=== PATIENT | female | born 1975 | race Caucasian/White ===

== ENCOUNTER 2020-09-21 09:34 | Outpatient (REF) | payer OTHER, SELFPAY ==
[2020-09-21 12:51] LABS: Syphilis Screen Nonreactive (Nonreactive)
[2020-09-21 13:21] LABS: CT PCR NOT DETECTED (Not Detect.); NG PCR NOT DETECTED (Not Detect.)
[2020-09-22 04:18] LABS: HIV AB/AG Nonreactive (Nonreactive); HIV Num 1 0.09 S/CO (0.00-0.99)
[2020-09-22 04:23] LABS: ~HepC Num1 0.11 S/CO (0.00-0.79); ~Hepatitis C Antibody Nonreactive (Nonreactive)
[2020-09-22 08:46] LABS: BV Int Neg Control Negative (Negative); BV Int Pos Control Positive (Positive)
== END 2020-09-21 09:35 | disposition home or self-care (01) ==
LOC: HO.LAB 09:34
PROVIDERS: PCP Internal Medicine; Referring Provider Internal Medicine; Visit Provider Advanced Practice Midwife
DX: Z30.431 Encounter for routine checking of intrauterine contraceptive device (principal); B37.3 Candidiasis of vulva and vagina; K50.90 Crohn's disease, unspecified, without complications; Z20.2 Contact with and (suspected) exposure to infections with a predominantly sexual mode of transmission; Z79.52 Long term (current) use of systemic steroids; Z79.891 Long term (current) use of opiate analgesic; Z79.899 Other long term (current) drug therapy
CPT/HCPCS: 86780; 86803; 87389; 87480; 87491; 87510; 87591; 87660; 99212

== ENCOUNTER 2020-12-09 12:50 | Outpatient (REF) | payer OTHER, SELFPAY ==
[2020-12-09 15:45] LABS: MANUAL DIFF FLAG NO
[2020-12-09 15:51] LABS: Basophils Absolute Auto 0.1 X10*3/uL (0.0-0.2); Basophils Percent Auto 0.8 % (0-2); Eosinophils Absolute Auto 0.1 X10*3/uL (0.0-0.4); Eosinophils Percent Auto 1.1 % (0-4); Hemoglobin 14.8 g/dl (12.0-16.0); Imm Gran Abs Auto 0.03 X10*3/uL (0.00-0.03); Imm Gran Pct Auto 0.4 % (0.0-0.4); Lymphocytes Absolute Auto 1.5 X10*3/uL (1.2-4.9); Lymphocytes Percent Auto 20.8 % (20-40); Mean Corpuscular HGB Conc 32.9 g/dl (31.0-35.0); Mean Corpuscular Hemoglobin 30.4 pg (27.0-33.0); Mean Corpuscular Volume 92.4 fL (80-98); Mean Platelet Volume 10.6 fL (9.4-12.3); Monocytes Absolute Auto 0.6 X10*3/uL (0.1-1.2); Monocytes Percent Auto 8.5 % (2-11); Neutrophils Absolute Auto 4.9 X10*3/uL (2.0-8.3); Neutrophils Percent Auto 68.4 % (45-73); Platelet Count 311 X10*3/uL (160-400); Red Blood Count 4.87 X10*6/uL (4.20-5.50); Red Cell Distribution Width 13.1 % (11.0-16.0); White Blood Count 7.1 X10*3/uL (4.8-10.8)
[2020-12-09 16:13] LABS: Alanine Aminotransferase 11 U/L (0-31); Albumin Level 4.1 g/dL (3.5-5.0); Alkaline Phosphatase 93 U/L (39-117); Aspartate Amino Transferase 15 U/L (5-31); Bilirubin Direct 0.2 mg/dL (0.0-0.5); Bilirubin Total 0.4 mg/dL (0.0-1.0); C Reactive Protein 0.48 mg/dL (< or = 0.50); Total Protein 7.4 g/dL (6.5-8.0)
[2020-12-09 16:47] LABS: Erythrocyte Sedimentation Rate 28 MM/HR (0-20)
[2020-12-10 11:45] LABS: BV Int Neg Control Negative (Negative); BV Int Pos Control Positive (Positive)
[2020-12-11 04:04] LABS: HBS Num1 0.86 mIU/mL (0-7.99); HBc Num1 0.05 S/CO (0.00-0.79); HBsAGNum1 0.19 S/CO (0.00-0.99); Hepatitis B Core Antibody Nonreactive (Nonreactive); Hepatitis B Surface Antigen Negative (Negative); ~Hepatitis B Surface Antibody NONREACTIVE (Nonreactive)
[2020-12-11 04:05] LABS: HIV AB/AG Nonreactive (Nonreactive); HIV Num 1 0.06 S/CO (0.00-0.99); ~HepC Num1 0.09 S/CO (0.00-0.79); ~Hepatitis C Antibody Nonreactive (Nonreactive)
[2020-12-12 01:02] LABS: TS Negative Control Passed; TS Panel A 0; TS Panel B 0; TS Positive Control Passed; TSpotTB Negative (SeeBelow)
[2020-12-12 04:15] LABS: Syphilis Screen Nonreactive (Nonreactive)
[2020-12-12 16:48] LABS: C. trachomatis RNA TMA NOT DETECTED (NOT DETECTED); N. gonorrhoeae RNA TMA NOT DETECTED (NOT DETECTED)
== END 2020-12-09 12:51 | disposition home or self-care (01) ==
LOC: HO.LAB 12:50
PROVIDERS: Absent Provider Internal Medicine; PCP Internal Medicine; Visit Provider Advanced Practice Midwife
DX: N92.1 Excessive and frequent menstruation with irregular cycle (principal); N89.8 Other specified noninflammatory disorders of vagina; K50.819 Crohn's disease of both small and large intestine with unspecified complications; Z20.2 Contact with and (suspected) exposure to infections with a predominantly sexual mode of transmission; Z91.040 Latex allergy status; Z88.5 Allergy status to narcotic agent; Z91.013 Allergy to seafood; Z30.431 Encounter for routine checking of intrauterine contraceptive device; Z32.02 Encounter for pregnancy test, result negative
CPT/HCPCS: 36415; 80076; 81025; 85025; 85652; 86140; 86481; 86704; 86706; 86780; 86803; 87340; 87389; 87480; 87491; 87510; 87591; 87660; 99212

== ENCOUNTER 2020-12-14 14:29 | Outpatient (REF) | payer OTHER, SELFPAY ==
--- NOTE | 2020-12-14 14:33 | US_ITS ---
EXAMINATION: ULTRASOUND PELVIS COMPLETE. CLINICAL INFORMATION: Excessive and frequent menstruation. COMPARISON: Transabdominal and transvaginal ultrasound pelvis is performed. TECHNIQUE: FINDINGS: This is anteverted and anteflexed measuring 7.5 cm in length, 3.9 cm in AP and 5.4 cm in transverse dimension. The uterus appears homogeneous in echotexture. There is an IUD within the endometrial canal and correct position. The tip is 0.6 cm away from fundal endometrium. There are small anechoic nabothian cysts seen in the cervix. The right ovary measures 3.0 x 1.4 x 2.2 cm volume 4.8 mL. There is a small echogenic focus within. Previously right ovary measured 2.1 x 2.2 x 2.0 cm. Left ovary measures 2.3 x 1.4 x 1.2 cm and volume 2.06 mL. It appears unremarkable. Previously left ovary measured 2.0 x 1.9 x 1.6 cm. US/US pelvic complete IMPRESSION: IUD well located in endometrial canal incorrect position. The uterus is unremarkable. There are small nabothian cysts in cervix. Unremarkable ovaries. Small nonspecific echogenic foci in the right ovary.
--- NOTE | 2020-12-14 14:33 | US_ITS ---
EXAMINATION: ULTRASOUND PELVIS COMPLETE. CLINICAL INFORMATION: Excessive and frequent menstruation. COMPARISON: Transabdominal and transvaginal ultrasound pelvis is performed. TECHNIQUE: FINDINGS: This is anteverted and anteflexed measuring 7.5 cm in length, 3.9 cm in AP and 5.4 cm in transverse dimension. The uterus appears homogeneous in echotexture. There is an IUD within the endometrial canal and correct position. The tip is 0.6 cm away from fundal endometrium. There are small anechoic nabothian cysts seen in the cervix. The right ovary measures 3.0 x 1.4 x 2.2 cm volume 4.8 mL. There is a small echogenic focus within. Previously right ovary measured 2.1 x 2.2 x 2.0 cm. Left ovary measures 2.3 x 1.4 x 1.2 cm and volume 2.06 mL. It appears unremarkable. Previously left ovary measured 2.0 x 1.9 x 1.6 cm. US/US transvaginal IMPRESSION: IUD well located in endometrial canal incorrect position. The uterus is unremarkable. There are small nabothian cysts in cervix. Unremarkable ovaries. Small nonspecific echogenic foci in the right ovary.
== END 2020-12-14 14:30 | disposition home or self-care (01) ==
LOC: HO.US 14:29
PROVIDERS: Visit Provider Advanced Practice Midwife
DX: N92.1 Excessive and frequent menstruation with irregular cycle (principal); Z97.5 Presence of (intrauterine) contraceptive device
CPT/HCPCS: 76830; 76856

== ENCOUNTER → 2020-12-21 11:17 | Outpatient (BNVA) | payer OTHER, SELFPAY | PROVIDERS: PCP Internal Medicine; Visit Provider Advanced Practice Midwife | DX: Z76.89 Persons encountering health services in other specified circumstances (principal) | CPT/HCPCS: 99212 ==

== ENCOUNTER 2021-02-15 10:45 | Outpatient (REF) | payer OTHER, SELFPAY ==
--- NOTE | ~2021-02-15 | US_ITS ---
EXAMINATION: US PELVIC COMPLETE CLINICAL INFORMATION: Excessive and frequent menstruation, irregular cycle. COMPARISON: None TECHNIQUE: Transabdominal and transvaginal ultrasound pelvis is performed. FINDINGS: The uterus is anteverted measuring 7.7 cm in length, 3.7 cm in AP and 4.6 cm wide. There is an IUD well located within the endometrial canal. No focal lesion seen. There are small nabothian cysts seen in the cervix. The right ovary measures 3.06 x 1.42 x 2.50 cm and volume 5.7 mL. There is a small echogenic focus seen likely nonspecific calcification. Previously right ovary measured 3.0 x 1.4 x 2.2 cm. The left ovary measures 2.1 x 1.3 x 1.95 cm and volume 3.06 mL. It appears unremarkable. Previously it measured 2.3 x 1.4 x 1.2 cm. US/US pelvic complete IMPRESSION: Unremarkable uterus. There is IUD well located within the endometrial canal. Small nabothian cysts in the cervix.
--- NOTE | ~2021-02-15 | US_ITS ---
EXAMINATION: US PELVIC COMPLETE CLINICAL INFORMATION: Excessive and frequent menstruation, irregular cycle. COMPARISON: None TECHNIQUE: Transabdominal and transvaginal ultrasound pelvis is performed. FINDINGS: The uterus is anteverted measuring 7.7 cm in length, 3.7 cm in AP and 4.6 cm wide. There is an IUD well located within the endometrial canal. No focal lesion seen. There are small nabothian cysts seen in the cervix. The right ovary measures 3.06 x 1.42 x 2.50 cm and volume 5.7 mL. There is a small echogenic focus seen likely nonspecific calcification. Previously right ovary measured 3.0 x 1.4 x 2.2 cm. The left ovary measures 2.1 x 1.3 x 1.95 cm and volume 3.06 mL. It appears unremarkable. Previously it measured 2.3 x 1.4 x 1.2 cm. US/US transvaginal IMPRESSION: Unremarkable uterus. There is IUD well located within the endometrial canal. Small nabothian cysts in the cervix.
== END 2021-02-15 10:46 | disposition home or self-care (01) ==
LOC: HO.US 10:45
PROVIDERS: PCP Internal Medicine; Visit Provider Advanced Practice Midwife
DX: N92.1 Excessive and frequent menstruation with irregular cycle (principal); Z97.5 Presence of (intrauterine) contraceptive device
CPT/HCPCS: 76830; 76856

== ENCOUNTER → 2021-03-01 10:36 | Outpatient (BNVA) | payer OTHER, SELFPAY | PROVIDERS: PCP Internal Medicine; Visit Provider Advanced Practice Midwife ==

== ENCOUNTER 2021-04-25 12:34 | Inpatient (IN) | payer OTHER, SELFPAY ==
--- NOTE | ~2021-04-25 | CT_ITS ---
EXAMINATION: CT ABDOMEN AND PELVIS WITH CONTRAST CLINICAL INFORMATION: Left-sided abdominal pain with nausea, vomiting and diarrhea x4 days COMPARISON: pelvic ultrasound 02/15/2021, CT abdomen pelvis 05/26/2019 TECHNIQUE: Multidetector volumetric images were obtained from the superior aspect of the liver through the pubic symphysis following administration 85 mL of Omnipaque 350 intravenous contrast. Sagittal and coronal reformatted images were obtained on the technologist's workstation. Oral contrast: No This CT examination was performed using dose optimization techniques as appropriate, variously including the following: *Automated exposure control *Adjustment of mA and/or kV according to patient size (this includes techniques or standardized protocols for targeted exams where dose is matched to indication/reason for exam; i.e. extremities or head) *Use of iterative reconstruction technique DLP: 598 mGy-cm FINDINGS: LUNG BASES: The visualized lung bases are unremarkable. LIVER, GALLBLADDER, AND BILIARY TREE: The liver is normal in size, shape, and attenuation. No focal hepatic lesion or biliary ductal dilatation is present. The gallbladder is unremarkable with no evidence of radiopaque gallstones, gallbladder wall thickening, or obvious pericholecystic inflammatory changes. PANCREAS: Unremarkable. SPLEEN: Unremarkable. ADRENAL GLANDS: Both adrenal glands demonstrate mild thickening which is better appreciated on coronal imaging (see rojas images), unchanged KIDNEYS AND URETERS: The kidneys are normal in size, shape, and attenuation. No hydronephrosis, hydroureter, or calculi seen. No perinephric stranding. BLADDER: Unremarkable. GASTROINTESTINAL TRACT: Again seen is marked wall thickening of the terminal ileum with dilatation. Appearances are slightly worse on the current study where maximal wall diameter is 9.5 mm where previously this was 8.4 mm. No evidence of microperforation or abscess. Diverticula are noted throughout the colon without evidence of diverticulitis. The small and large bowel are otherwise unremarkable. The appendix is unremarkable. A small hiatal hernia is present. The stomach otherwise appears normal ABDOMINAL WALL: No significant hernia is appreciated. A small periumbilical hernia seen containing only fat. LYMPH NODES: Normal. VASCULAR: Unremarkable. PELVIC VISCERA: Normal anteverted uterus with an IUD is present. An abnormal adnexal mass or free intraperitoneal fluid is not seen. OSSEOUS STRUCTURES: The SI joints appear normal. A izzy and screw is present in the left hip. There is a scoliosis convex to the left. No acute fracture or bony destructive lesions seen CT/CT abdomen pelvis w con IMPRESSION: Grossly abnormal thickened edematous terminal ileum. No evidence of perforation or abscess.
--- NOTE | ~2021-04-25 | XR_ITS ---
EXAMINATION: XR ABDOMEN KUB CLINICAL INDICATION: Abdominal pain. Constipation. COMPARISON: Previous CT of the abdomen and pelvis 04/25/2021 TECHNIQUE: Supine view of the abdomen and pelvis FINDINGS: There is stool throughout the colon suggestive of mild constipation. There are no dilated loops of bowel to suggest obstruction. There is no evidence of free air. There are calcifications in the left pelvis which when compared with previous CT scan probably represent calcified phleboliths. There is an IUD in the pelvis that appears unchanged. There are degenerative changes of the lower lumbar spine. There is orthopedic hardware and old healed fracture of the left proximal femur. There are degenerative changes of the spine. XR/XR KUB IMPRESSION: Stool in the colon suggestive of mild constipation. No evidence of obstruction.
[2021-04-25 13:39] VITALS: BP 137/71; PULSE 80; RESP 18; TEMP 36.9; O2SAT 99; BMI 29.4
--- NOTE | 2021-04-25 15:49 | ED_ITS ---
HPI - Nausea/Vomiting/Diarrhea General Chief complaint: Nausea/Vomiting/Diarrhea Stated complaint: NAUSEA DIARRHEA VOMITING WEAK Time Seen by Provider: 04/25/21 15:35 Source: patient Mode of arrival: ambulatory Limitations: no limitations History of Present Illness HPI Narrative: 45 y/o female with history of Crohn's disease diagnosed 20 years ago with poor control and persistent symptoms for >1 year on current regimen, history of migraines, anxiety/depression, insomnia who presents to the ER from home with 4 days of persistent nausea, vomiting and watery diarrhea. She states every time she drinks or eats anything she has watery brown stool. She has vomited 1-3 times each day. She developed worsening LLQ and lower abdominal pain in the last 1-[address] Alexis her GI doctor who advised her to come to the ER if her symptoms persisted or worsened. She denies blood in her stool or vomitus. SHe thinks she is due for scopes and was planning on talking to Dr. Alexis about this at her outpatient appointment tomorrow. They have been discussing starting Shikha however patient has been reluctant. She admits to her symptoms being out of control for >1 year. MD elicited complaint: nausea, vomiting, diarrhea and abdominal pain Pertinent past history: other (Crohn's) Onset (ago): day(s) (4) Description of vomiting: food contents and watery Description of diarrhea: watery Associated nausea: Yes Associated abdominal pain: Yes Location of pain: LLQ Radiation: RLQ Pain consistency: constant Severity: moderate Pain scale (0-10): 7 Quality: cramping and stabbing Exacerbating factors: eating Relieving factors: none Associated symptoms: loss of appetite, malaise, nausea/vomiting, weakness and anxiety Treatment prior to arrival: immodium and other (zofran at 10am) Related Data Home Medications Medication Instructions Recorded Confirmed levonorgestrel 20 mcg/24 hours (6 1 device INTRAUTERINE ONCE 10/04/20 04/25/21 yrs) 52 mg intrauterine device budesonide 3 mg 9 mg PO DAILY 12/05/20 04/25/21 capsule,delayed,extended release cholestyramine (with sugar) 4 gram 2 g PO BID 12/05/20 04/25/21 oral powder omeprazole 20 mg capsule,delayed 20 mg PO DAILY 12/05/20 04/25/21 release mesalamine [Pentasa] 1,000 mg PO TID 04/25/21 04/25/21 ondansetron HCl 4 mg PO Q8H PRN 04/25/21 04/25/21 sumatriptan succinate 0.5 tab PO DAILY MRX1 PRN 04/25/21 04/25/21 tramadol 50 mg PO TID PRN 04/25/21 04/25/21 Previous Rx's Medication Instructions Recorded eszopiclone 3 mg tablet 3 mg PO BEDTIME PRN 30 Days #30 tab 03/06/21 escitalopram oxalate 10 mg tablet 10 mg PO DAILY 30 Days #30 tab 03/29/21 lorazepam 1 mg tablet 1 mg PO TID PRN 30 Days #90 tab 03/29/21 Allergies Allergy/AdvReac Type Severity Reaction Status Date / Time meperidine [From Demerol] Allergy Severe SWELLING,RASH,THROAT Verified 03/13/21 00:00 CLOSES latex [LATEX] Allergy Mild RASH Verified 03/13/21 00:00 codeine [Codeine] AdvReac Intermediate NAUSEA/VOMITING, Verified 03/13/21 00:00 GI upset/vomiting Fish Containing Products AdvReac Unknown NAUSEA/VOMI Verified 03/13/21 00:00 [Fish Product Derivatives] TING trazodone AdvReac Intermediate worsening Uncoded 03/13/21 00:00 anxiety symptoms Review of Systems Review of Systems: Constitutional: No Fever, No Chills ENT/Mouth: No sore throat, No Rhinorrhea, No Swallowing Difficulty Eyes: No Eye Pain, No Swelling, No Redness Cardiovascular: No Chest Pain, No SOB, No Orthopnea, No Edema Respiratory: No Cough, No Sputum, No Wheezing, No dyspnea Gastrointestinal: + Nausea, + Vomiting, + Diarrhea, + abdominal Pain, No Hematochezia, No Melena Genitourinary: No Dysuria, No Urinary Frequency, No Hematuria Musculoskeletal: No joint pain, No Myalgias Skin: No Skin Lesions, No rash Neuro: + Weakness, No Numbness, + Dizziness, + Headache Psych: + Anxiety/Panic, + Depression Heme/Lymph: No Bruising, No Lymphadenopathy Endocrine: No Polyuria, No Polydipsia Gastrointestinal: Gastrointestinal: Reports nausea PMFSH Past Medical History Attestation statement: The following information was validated with the patient. 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 History of renal cell cancer (~2014) Insomnia Intractable nausea and vomiting Lumbar degenerative disc disease Migraine Osteoarthritis of hips, bilateral Overweight (BMI 25.0-29.9) Surgical History History of arthroplasty (~01/2012) History of cryosurgery (~04/20/15) History of intestinal surgery History of removal of calculus of renal pelvis through percutaneous nephrostomy (~10/2015) Family History Family History Father Crohn disease Migraine Mother HTN (hypertension) Vertigo Cervical cancer Maternal Grandmother HTN (hypertension) Hyperlipidemia Diabetes mellitus Paternal Grandfather Diabetes mellitus Social History Social History Household Members: Children Housing: House Do you presently have visiting nurse or other home services: No Alcohol intake: current Alcohol intake frequency: holidays/special occasions only Patient Tobacco Use Status: Current someday Tobacco user Tobacco use type: Cigarette Cigarette Packs Per Day: 0.01 Cigarettes Per Day: 0.2 Years Smoked: 1 Smoked in Last 30 Days: Yes Patient Interested in Nicotine Replacement: No Patient Given Instructions on How to Stop Smoking: No Use of substances other than those prescribed or required for medical reasons: No Currently Displaying Signs/Symptoms of Drug Intoxication Withdrawal: No Have you been hit, kicked, punched, or otherwise hurt by someone within the past year? If so, by whom?: No Do you feel safe in your current relationship?: Yes Is there a partner from a previous relationship who is making you feel unsafe now?: No Are you made to feel afraid or neglected: No Spiritual Healthcare Practices: none Shinto Healthcare Practices: none Cultural Healthcare Practices: none Advance Directives: No Advance Directives Information Provided: Yes Do you have thoughts of harming others: None Do you have a plan to hurt others: No Plan Recently lost weight without trying: Yes How much weight loss: 2-13 pounds Eating poorly because of decreased appetite: Yes Nutrition screen score: 4 Nutrition Risks: No Nutritional Risk Patient : No : No Poor oral hygiene: No Gender identity: female Physical Exam Vital Signs: Vital Signs: Last Vital Signs Temp 98.1 F 04/26/21 07:14 Pulse 70 04/26/21 07:14 Resp 16 04/26/21 07:14 BP 126/68 04/26/21 07:14 Pulse Ox 97 04/26/21 07:14 Body Mass Index 29.4 Appearance: Alert. Oriented X3. No acute distress. Eyes: Pupils equal, round and reactive to light. ENT: Pharynx normal. Neck: Normal inspection. Neck supple. CVS: Normal heart rate and rhythm. Pulses normal. Respiratory: No respiratory distress. Breath sounds normal. Abdomen: Soft with moderate LLQ tenderness and guarding, no rebound tenderness. No rigidity, hyperactive +BS x4 Skin: Skin warm and dry. Normal skin color. Normal skin turgor. No rashes. Extremities: No lower extremity edema. Neuro: Oriented X 3. No motor deficit. No sensory deficit. Course Course Course Narrative: 45 y/o female with history of Crohn's disease presenting with 4 days of N/V/D and abdominal pain. She is very uncomfortable with LLQ tenderness on exam. Will get stool studies, CT scan, lab workup and medicate with IVF, Zofran and Dilaudid. Will need to touch base with GI once imaging and labs resulted to establish a plan - anticipate admission. Reevaluation(s) Reevaluation #1: Signed out to Noris RUEDA who assumed care, followed up results and admitted patient. MDM - Nausea/Vomiting/Diarrhea Lab Data Result diagrams: 04/26/21 05:39 04/26/21 05:39 Labs: Lab Results 04/25/21 04/25/21 04/25/21 Range/Units 16:29 16:29 16:29 WBC 8.0 (4.8-10.8) X10*3/uL RBC 4.63 (4.20-5.50) X10*6/uL Hgb 14.4 (12.0-16.0) g/dl Hct 43.5 (37-47) % MCV 94.0 (80-98) fL MCH 31.1 (27.0-33.0) pg MCHC 33.1 (31.0-35.0) g/dl RDW 13.5 (11.0-16.0) % Plt Count 325 (160-400) X10*3/uL MPV 9.8 (9.4-12.3) fL Immature Gran % (Auto) 0.4 (0.0-0.4) % Neut % (Auto) 71.3 (45-73) % Lymph % (Auto) 17.9 L (20-40) % Gilliam % (Auto) 9.1 (2-11) % Eos % (Auto) 0.8 (0-4) % Baso % (Auto) 0.5 (0-2) % Lymph # (Auto) 1.4 (1.2-4.9) X10*3/uL Gilliam # (Auto) 0.7 (0.1-1.2) X10*3/uL Eos # (Auto) 0.1 (0.0-0.4) X10*3/uL Baso # (Auto) 0.0 (0.0-0.2) X10*3/uL Abs Immat Gran (auto) 0.03 (0.00-0.03) X10*3/uL Absolute Neuts (auto) 5.7 (2.0-8.3) X10*3/uL Absolute Nucleated RBC 0.000 (0.0-0.012) X10*3/uL Nucleated RBC % (auto) 0.0 (0.0-0.2) /100WBC Hold Blue Top SEE NOTE Sodium 143 (135-145) mmol/L Potassium 4.0 (3.3-5.1) mmol/L Chloride 106 (96-108) mmol/L Carbon Dioxide 29 (22-29) mmol/L Anion Gap 12 (12-20) BUN 8 L (9-16) mg/dL Creatinine 0.77 (0.5-1.4) mg/dL Estim Creat Clear Calc 86.3 Estimated GFR > 60 Random Glucose 93 (60-115) mg/dL Lactic Acid (0.5-2.0) mmol/L Calcium 9.9 (8.4-10.2) mg/dL Magnesium 1.7 (1.6-2.6) mg/dL Total Bilirubin 0.5 (0.0-1.0) mg/dL Direct Bilirubin < 0.2 (0.0-0.5) mg/dL AST 14 (5-31) U/L ALT 7 (0-31) U/L Alkaline Phosphatase 103 (39-117) U/L Total Protein 7.2 (6.5-8.0) g/dL Albumin 4.0 (3.5-5.0) g/dL Lipase 24 (8-78) U/L Urine Color Urine Appearance Urine pH (5.0-8.0) Ur Specific Dawson (1.005-1.025) Urine Protein (NEG-TRACE) MG/DL Urine Glucose (UA) (NEG) MG/DL Urine Ketones (NEG) MG/DL Urine Blood (NEG) Urine Nitrite (NEG) Ur Leukocyte Esterase (NEG) 04/25/21 04/25/21 Range/Units 17:56 19:39 WBC (4.8-10.8) X10*3/uL RBC (4.20-5.50) X10*6/uL Hgb (12.0-16.0) g/dl Hct (37-47) % MCV (80-98) fL MCH (27.0-33.0) pg MCHC (31.0-35.0) g/dl RDW (11.0-16.0) % Plt Count (160-400) X10*3/uL MPV (9.4-12.3) fL Immature Gran % (Auto) (0.0-0.4) % Neut % (Auto) (45-73) % Lymph % (Auto) (20-40) % Gilliam % (Auto) (2-11) % Eos % (Auto) (0-4) % Baso % (Auto) (0-2) % Lymph # (Auto) (1.2-4.9) X10*3/uL Gilliam # (Auto) (0.1-1.2) X10*3/uL Eos # (Auto) (0.0-0.4) X10*3/uL Baso # (Auto) (0.0-0.2) X10*3/uL Abs Immat Gran (auto) (0.00-0.03) X10*3/uL Absolute Neuts (auto) (2.0-8.3) X10*3/uL Absolute Nucleated RBC (0.0-0.012) X10*3/uL Nucleated RBC % (auto) (0.0-0.2) /100WBC Hold Blue Top Sodium (135-145) mmol/L Potassium (3.3-5.1) mmol/L Chloride (96-108) mmol/L Carbon Dioxide (22-29) mmol/L Anion Gap (12-20) BUN (9-16) mg/dL Creatinine (0.5-1.4) mg/dL Estim Creat Clear Calc Estimated GFR Random Glucose (60-115) mg/dL Lactic Acid 1.7 (0.5-2.0) mmol/L Calcium (8.4-10.2) mg/dL Magnesium (1.6-2.6) mg/dL Total Bilirubin (0.0-1.0) mg/dL Direct Bilirubin (0.0-0.5) mg/dL AST (5-31) U/L ALT (0-31) U/L Alkaline Phosphatase (39-117) U/L Total Protein (6.5-8.0) g/dL Albumin (3.5-5.0) g/dL Lipase (8-78) U/L Urine Color YELLOW Urine Appearance CLEAR Urine pH 5.5 (5.0-8.0) Ur Specific Dawson <= 1.005 (1.005-1.025) Urine Protein NEG (NEG-TRACE) MG/DL Urine Glucose (UA) NEG (NEG) MG/DL Urine Ketones NEG (NEG) MG/DL Urine Blood NEG (NEG) Urine Nitrite NEG (NEG) Ur Leukocyte Esterase NEG (NEG) Discharge Plan Discharge Clinical Impression: Ileitis, terminal Qualifiers: Digestive disease complication type: without complication Qualified Code(s): K50.00 - Crohn's disease of small intestine without complications Patient Disposition: Admitted As Inpatient Interventions: Admission Worksheet (ED) Last Done: 04/26/21 00:21 Discharge Date/Time: 04/26/21 00:22
[2021-04-25 16:23] VITALS: BP 140/85; PULSE 71; RESP 16; O2SAT 100
[2021-04-25 16:33] LABS: MANUAL DIFF FLAG NO
[2021-04-25] MEDS: HYDROmorphone HCl 1 MG/ML SYRINGE IVPUSH ×2 (16:35→20:30)
[2021-04-25] MEDS: ondansetron HCL 4 MG/2 ML VIAL IVPUSH (16:35)
[2021-04-25] MEDS: 0.9 % Sodium Chloride 1,000 ML 999 ML IVCONT (16:35)
[2021-04-25 16:37] LABS: Basophils Percent Auto 0.5 % (0-2); Eosinophils Absolute Auto 0.1 X10*3/uL (0.0-0.4); Eosinophils Percent Auto 0.8 % (0-4); Hematocrit 43.5 % (37-47); Hemoglobin 14.4 g/dl (12.0-16.0); Imm Gran Abs Auto 0.03 X10*3/uL (0.00-0.03); Imm Gran Pct Auto 0.4 % (0.0-0.4); Lymphocytes Absolute Auto 1.4 X10*3/uL (1.2-4.9); Lymphocytes Percent Auto 17.9 % (20-40); Mean Corpuscular HGB Conc 33.1 g/dl (31.0-35.0); Mean Corpuscular Hemoglobin 31.1 pg (27.0-33.0); Mean Platelet Volume 9.8 fL (9.4-12.3); Monocytes Absolute Auto 0.7 X10*3/uL (0.1-1.2); Monocytes Percent Auto 9.1 % (2-11); Neutrophils Absolute Auto 5.7 X10*3/uL (2.0-8.3); Neutrophils Percent Auto 71.3 % (45-73); Platelet Count 325 X10*3/uL (160-400); Red Blood Count 4.63 X10*6/uL (4.20-5.50); Red Cell Distribution Width 13.5 % (11.0-16.0)
[2021-04-25 17:06] LABS: Alanine Aminotransferase 7 U/L (0-31); Alkaline Phosphatase 103 U/L (39-117); Anion Gap 12 (12-20); Aspartate Amino Transferase 14 U/L (5-31); Bilirubin Direct < 0.2 mg/dL (0.0-0.5); Bilirubin Total 0.5 mg/dL (0.0-1.0); Blood Urea Nitrogen 8 mg/dL (9-16); Calcium 9.9 mg/dL (8.4-10.2); Carbon Dioxide 29 mmol/L (22-29); Chloride 106 mmol/L (96-108); Creatinine Clr Calc Pharmacy 86.3; Estimated Glomerular Filt Rate > 60; Glucose Random 93 mg/dL (60-115); Lipase 24 U/L (8-78); Magnesium 1.7 mg/dL (1.6-2.6); Sodium 143 mmol/L (135-145); Total Protein 7.2 g/dL (6.5-8.0)
[2021-04-25 18:26] LABS: Lactic Acid 1.7 mmol/L (0.5-2.0)
[2021-04-25] MEDS: iohexoL 350 MG/ML 100 ML INFUS..BTL IV (18:26)
[2021-04-25 19:45] LABS: Glucose Urine UA NEG (NEG); Leukocyte Esterase Urine NEG (NEG); Nitrite Urine NEG (NEG); PH 5.5 (5.0-8.0); Specific Gravity - Urine <= 1.005 (1.005-1.025); Urine Blood NEG (NEG); Urine Ketones NEG (NEG); Urine Protein NEG (NEG-TRACE)
[2021-04-25 19:47] LABS: Appearance Urine CLEAR; Color Urine YELLOW
[2021-04-25] MEDS: diphenhydrAMINE HCL 50 MG/ML VIAL 25 MG IVPUSH (19:54)
[2021-04-25] MEDS: Metoclopramide HCl 10 MG/2 ML VIAL IVPUSH (19:54)
[2021-04-25 20:31] VITALS: BP 122/69; PULSE 66; RESP 16; O2SAT 97
--- NOTE | 2021-04-25 21:29 | P.HPHOSP_ITS ---
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 Patient mentioned that she always has diarrhea. But for the past 3 4 days she has been having abdominal pain which is worse than her prior abdominal pains gradually increasing associated nausea vomiting.; spoke to her instrumentation designer who suggested to take the medications at home with not improving to go to the ER for further evaluation. Patient denies any fevers. Denies any cough. Denies any chest pain palpitations. Denies any urinary symptoms. Patient mentions that her abdominal pain is crampy in nature starts on the left side of the abdomen and radiates to the right side; no aggravating or kindra viating factors. Denies any blood in the stool. Denies being on antibiotics recently. Review of all other systems is negative except mentioned above ER course: Per ER team patient abdomen is diffusely tender no guarding no rigidity; CT scan showed terminal ileitis. Given Solu-Medrol, antibiotics. Admitted for further management. [facility] 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 History of renal cell cancer (~2014) Insomnia Intractable nausea and vomiting Lumbar degenerative disc disease Migraine Osteoarthritis of hips, bilateral Overweight (BMI 25.0-29.9) Family History Father Crohn disease Migraine Mother HTN (hypertension) Vertigo Cervical cancer Maternal Grandmother HTN (hypertension) Hyperlipidemia Diabetes mellitus Paternal Grandfather Diabetes mellitus Surgical History History of arthroplasty (~01/2012) History of cryosurgery (~04/20/15) History of intestinal surgery History of removal of calculus of renal pelvis through percutaneous nephrostomy (~10/2015) Social History Household Members: Children Housing: House Do you presently have visiting nurse or other home services: No Alcohol intake: current Alcohol intake frequency: holidays/special occasions only Patient Tobacco Use Status: Current someday Tobacco user Tobacco use type: Cigarette Cigarette Packs Per Day: 0.01 Cigarettes Per Day: 0.2 Years Smoked: 1 Smoked in Last 30 Days: Yes Patient Interested in Nicotine Replacement: No Patient Given Instructions on How to Stop Smoking: No Use of substances other than those prescribed or required for medical reasons: No Currently Displaying Signs/Symptoms of Drug Intoxication Withdrawal: No Have you been hit, kicked, punched, or otherwise hurt by someone within the past year? If so, by whom?: No Do you feel safe in your current relationship?: Yes Is there a partner from a previous relationship who is making you feel unsafe now?: No Are you made to feel afraid or neglected: No Spiritual Healthcare Practices: none Sikhism Healthcare Practices: none Cultural Healthcare Practices: none Advance Directives: No Advance Directives Information Provided: Yes Do you have thoughts of harming others: None Do you have a plan to hurt others: No Plan Recently lost weight without trying: Yes How much weight loss: 2-13 pounds Eating poorly because of decreased appetite: Yes Nutrition screen score: 4 Nutrition Risks: No Nutritional Risk Patient : No : No Poor oral hygiene: No service: No Current occupational status: unemployed Gender identity: female Meds Allergies Allergy/AdvReac Type Severity Reaction Status Date / Time meperidine [From Demerol] Allergy Severe SWELLING,RASH,THROAT Verified 03/13/21 00:00 CLOSES latex [LATEX] Allergy Mild RASH Verified 03/13/21 00:00 codeine [Codeine] AdvReac Intermediate NAUSEA/VOMITING, Verified 03/13/21 00:00 GI upset/vomiting Fish Containing Products AdvReac Unknown NAUSEA/VOMI Verified 03/13/21 00:00 [Fish Product Derivatives] TING trazodone AdvReac Intermediate worsening Uncoded 03/13/21 00:00 anxiety symptoms Active Medications: Current Medications Generic Name Dose Route Start Last Admin Trade Name Freq PRN Reason Stop Dose Admin Acetaminophen 650 mg 04/25/21 21:23 Acetaminophen 325 Mg Tablet PO Q6H PRN Pain, Mild (Pain Scale 1-3) Metronidazole 500 mg in 100 mls @ 100 mls/hr 04/25/21 20:51 Flagyl IV 04/25/21 21:50 ONCE ONE Levofloxacin 500 mg in 100 mls @ 100 mls/hr 04/25/21 21:00 Levaquin IV Q24H [facility] Ceftriaxone Sodium 1 gm/ 50 mls @ 100 mls/hr 04/25/21 21:30 Sodium Chloride IV Q24H BENJAMIN Metronidazole 500 mg in 100 mls @ 100 mls/hr 04/25/21 21:30 Flagyl IV Q8H [facility] Dextrose/Sodium Chloride 1,000 mls @ 100 mls/hr 04/25/21 21:30 D51/2ns IVCONT .Q10H [facility] Methylprednisolone Sodium Succinate 20 mg 04/25/21 21:30 Methylprednisolone Sod Succ 40 Mg/Ml Vial IVPUSH Q8H [facility] Pharmacy Consult 1 each 04/25/21 20:55 Consult Rx Perform Med Rec MISCELLANE ONCE PRN Consult order Sodium Chloride 3 ml 04/26/21 00:00 0.9 % Sodium Chloride Flush 3 Ml Syringe IVFLUSH QSHIFT [facility] Home Medications Medication Instructions Recorded Confirmed Last Taken Type levonorgestrel 20 mcg/24 hours (6 1 device INTRAUTERINE ONCE 10/04/20 04/25/21 Unknown History yrs) 52 mg intrauterine device cholestyramine (with sugar) 4 gram 2 g PO BID 12/05/20 04/25/21 Unknown History oral powder omeprazole 20 mg capsule,delayed 20 mg PO DAILY 12/05/20 04/25/21 Unknown History release Pentasa 1,000 mg PO TID 04/25/21 04/25/21 Unknown History ondansetron HCl 4 mg PO Q8H PRN 04/25/21 04/25/21 Unknown History sumatriptan succinate 0.5 tab PO DAILY MRX1 PRN 04/25/21 04/25/21 Unknown History Physical Exam Vital Signs and Narrative: Vital Signs: Last Vital Signs Temp 98.4 F 04/25/21 13:39 Pulse 66 04/25/21 20:31 Resp 16 04/25/21 20:31 BP 122/69 04/25/21 20:31 Pulse Ox 97 04/25/21 20:31 Body Mass Index 29.4 Gen: Appears be in no acute distress HEENT: NCAT, Moist mucosa. Pulmonary: Vesicular breath sounds, fair air entry CVS: Normal S1-S2 Abdomen: BS+, Soft, diffusely tender; no guarding or rigidity. Extremities: Warm well perfused Neuro: Alert and awake. Results Labs CBC and Chem 7: 04/29/21 05:55 04/29/21 05:55 Labs: Laboratory Results - last 24 hr 04/25/21 04/25/21 04/25/21 16:29 16:29 16:29 MCV 94.0 MCH 31.1 MCHC 33.1 RDW 13.5 Plt Count 325 MPV 9.8 Immature Gran % (Auto) 0.4 Neut % (Auto) 71.3 Lymph % (Auto) 17.9 L [place] % (Auto) 9.1 Eos % (Auto) 0.8 Baso % (Auto) 0.5 Lymph # (Auto) 1.4 [place] # (Auto) 0.7 Eos # (Auto) 0.1 Baso # (Auto) 0.0 Abs Immat Gran (auto) 0.03 Absolute Neuts (auto) 5.7 Absolute Nucleated RBC 0.000 Nucleated RBC % (auto) 0.0 Hold Blue Top SEE NOTE Anion Gap 12 Estim Creat Clear Calc 86.3 Estimated GFR > 60 Random Glucose 93 Lactic Acid Calcium 9.9 Magnesium 1.7 Total Bilirubin 0.5 Direct Bilirubin < 0.2 AST 14 ALT 7 Alkaline Phosphatase 103 Total Protein 7.2 Albumin 4.0 Lipase 24 Urine Color Urine Appearance Urine pH Ur Specific [place] Urine Protein Urine Glucose (UA) Urine Ketones Urine Blood Urine Nitrite Ur Leukocyte Esterase 04/25/21 04/25/21 17:56 19:39 MCV MCH MCHC RDW Plt Count MPV Immature Gran % (Auto) Neut % (Auto) Lymph % (Auto) [place] % (Auto) Eos % (Auto) Baso % (Auto) Lymph # (Auto) [place] # (Auto) Eos # (Auto) Baso # (Auto) Abs Immat Gran (auto) Absolute Neuts (auto) Absolute Nucleated RBC Nucleated RBC % (auto) Hold Blue Top Anion Gap Estim Creat Clear Calc Estimated GFR Random Glucose Lactic Acid 1.7 Calcium Magnesium Total Bilirubin Direct Bilirubin AST ALT Alkaline Phosphatase Total Protein Albumin Lipase Urine Color YELLOW Urine Appearance CLEAR Urine pH 5.5 Ur Specific [place] <= 1.005 Urine Protein NEG Urine Glucose (UA) NEG Urine Ketones NEG Urine Blood NEG Urine Nitrite NEG Ur Leukocyte Esterase NEG Imaging Radiologist's Impressions: Impressions Abdomen/Pelvis CT 04/25/21 15:49 IMPRESSION: Grossly abnormal thickened edematous terminal ileum. No evidence of perforation or abscess. Assessment and Plan (1) Ileitis, terminal: Qualifiers: Digestive disease complication type: without complication Qualified Code(s): K50.00 - Crohn's disease of small intestine without complications Status: Acute 45-year-old female with a past medical history of Crohn's disease, anxiety, depression, history of renal cell carcinoma, chronic back pain and migraines, osteoarthritis presented to the hospital with a chief complaint of abdominal pain/nausea/vomiting noted to have terminal ileitis. Admitted for further management. Crohn's flare/Terminal Ileitis: Will give the patient Solu-Medrol 20 mg IV t.i.d.. We will continue ceftriaxone and Flagyl. GI consult for further recommendations. NPO Gentle IV fluids Stool studies For all other chronic conditions, home medications will be continued DVT prophylaxis: SCD boots Code status: Full code
[2021-04-25] MEDS: methylPREDNISolone Sod Succ 40 MG/ML VIAL IVPUSH (21:50)
[2021-04-25] MEDS: metroNIDAZOLE/NS 500 MG/100 ML PIGGYBACK 100 MG IV (21:50)
--- NOTE | 2021-04-25 21:50 | HE.PHANOTE ---
Pharmacy has completed the medication reconciliation: pt states that she has not been taking elavil and propranolol due to increased n/v
[2021-04-25 21:51] VITALS: BP 119/65; PULSE 75; RESP 18; O2SAT 97
[2021-04-25 22:35] LABS: COVID-19 Test Negative (Negative)
[2021-04-25] MEDS: cefTRIAXone sodium 1 GM in 0.9 % Sodium Chloride 50 ML IV (23:06)
[2021-04-25] MEDS: Acetaminophen 325 MG TABLET 650 MG PO (23:15)
[2021-04-25] MEDS: traMADoL HCL 50 MG TABLET PO (23:15)
[2021-04-25] MEDS: Dextrose 5 % and 0.45 % NaCl 1,000 ML 100 ML IVCONT (23:19)
[2021-04-25] MEDS: levoFLOXacin/D5W 500 MG/100 ML PIGGYBACK 100 MG IV (23:29)
[2021-04-26] VITALS (7 sets, daily range): BP systolic 121–157; BP diastolic 63–91; PULSE 59–98; RESP 16–20; TEMP 36.3–37.1; O2SAT 95–97; BMI 29.4
[2021-04-26] MEDS: 0.9 % Sodium Chloride Flush 3 ML SYRINGE IVFLUSH ×3 (00:36→15:22)
[2021-04-26] MEDS: LORazepam 1 MG TABLET PO ×2 (00:42→22:55)
[2021-04-26] MEDS: HYDROmorphone HCl 0.5 MG/0.5 ML SYRINGE IVPUSH ×6 (00:42→22:55)
[2021-04-26] MEDS: methylPREDNISolone Sod Succ 40 MG/ML VIAL 20 MG IVPUSH (04:30)
[2021-04-26 06:43] LABS: Basophils Percent Auto 0.2 % (0-2); Hematocrit 41.1 % (37-47); Hemoglobin 13.4 g/dl (12.0-16.0); Imm Gran Abs Auto 0.04 X10*3/uL (0.00-0.03); Imm Gran Pct Auto 0.6 % (0.0-0.4); Lymphocytes Absolute Auto 0.5 X10*3/uL (1.2-4.9); Lymphocytes Percent Auto 7.1 % (20-40); MANUAL DIFF FLAG SCAN; Mean Corpuscular HGB Conc 32.6 g/dl (31.0-35.0); Mean Corpuscular Hemoglobin 30.4 pg (27.0-33.0); Mean Corpuscular Volume 93.2 fL (80-98); Mean Platelet Volume 10.4 fL (9.4-12.3); Monocytes Absolute Auto 0.1 X10*3/uL (0.1-1.2); Monocytes Percent Auto 1.2 % (2-11); Neutrophils Absolute Auto 5.9 X10*3/uL (2.0-8.3); Neutrophils Percent Auto 90.9 % (45-73); Platelet Count 313 X10*3/uL (160-400); Red Blood Count 4.41 X10*6/uL (4.20-5.50); Red Cell Distribution Width 13.3 % (11.0-16.0); SCAN SMEAR FLAG 1; White Blood Count 6.5 X10*3/uL (4.8-10.8)
[2021-04-26 06:45] LABS: INTERNATIONAL NORM RATIO 1.2 (0.9-1.1); Prothrombin Time 14.3 SEC (10.8-13.0)
[2021-04-26 06:59] LABS: Magnesium 1.6 mg/dL (1.6-2.6)
[2021-04-26 07:12] LABS: Anion Gap 12 (12-20); Blood Urea Nitrogen 6 mg/dL (9-16); Calcium 9.4 mg/dL (8.4-10.2); Carbon Dioxide 25 mmol/L (22-29); Chloride 107 mmol/L (96-108); Creatinine Clr Calc Pharmacy 92.2; Estimated Glomerular Filt Rate > 60; Glucose Random 143 mg/dL (60-115); Potassium 4.6 mmol/L (3.3-5.1); Sodium 139 mmol/L (135-145)
[2021-04-26 07:25] LABS: SLIDE REVIEW VERIFIED
[2021-04-26] MEDS: Cholestyramine (With Sugar) 4 GM POWD.PACK PO (07:57)
[2021-04-26] MEDS: Omeprazole 20 MG CAPSULE.DR PO (07:58)
[2021-04-26] MEDS: Escitalopram Oxalate 10 MG TABLET PO (07:58)
[2021-04-26] MEDS: Dextrose 5 % and 0.45 % NaCl 1,000 ML 100 ML IVCONT ×2 (07:59→20:36)
[2021-04-26] MEDS: ondansetron HCL 4 MG/2 ML VIAL IVPUSH ×2 (08:03→20:31)
[2021-04-26] MEDS: traMADoL HCL 50 MG TABLET PO ×2 (08:04→20:30)
--- NOTE | 2021-04-26 09:12 | MHC.CM.PN ---
CM met with Patient at bedside. Patient lives in a house with her 2 Children, ages 13 & 15 years of age. Patient is functionally independent and her goal is to return home/no services. CM has initiated and will follow for dc planning. Patient's PCP is Dr. Jaswant Frank and her Mother/Zahraa is her HCP. Patient is filing for Disability (cronhs) and presently unemployed.
[2021-04-26] MEDS: SUMAtriptan succinate 100 MG TABLET PO (11:39)
--- NOTE | 2021-04-26 12:52 | PM.EVENT ---
Event Note Date of Service: 04/26/21 Event Note: GI Consult- Full note dictated Imp: Worsening symptoms of Crohn's based on her history and CT scan. She has had ongoing symptoms as an outpatient but has been reluctant to start a biologic agent despite my recommendations. Things have been worsening the past couple of weeks with increasing abdominal discomfort, diarrhea, and nausea. There is no evidence for SBO nor any other complication of the Crohn's at this time. Her abdomen seems fairly benign with just some mild lower abdominal tenderness, but is nondistended, soft, and with good BS. Rec: Increase steroids, Full liquids, F/U labs in AM, check stool for Cdiff. We did discuss that I would definitely recommend initiation of a biologic agent such as Humira or Entyvio SOCORRO. I don't think she needs antibiotics at this time and I did discontinue them. I have discontinued the cholestyramine as well. Hopefully things will improve and allow advancement of diet, transition to po steroids, and then discharge with further discussions to start a biologic agent as an outpatient SOCORRO. D/W patient in detail and she is comfortable with this plan. Thanks.
[2021-04-26] MEDS: Hydrocortisone Sod Succ/PF 100 MG VIAL 50 MG IVPUSH ×2 (13:09→20:31)
--- NOTE | 2021-04-26 16:39 | HO.PM.IMPN ---
Subjective Subjective Date of Service: 04/26/21 Interval History: Patient complaining of nausea, abdominal pain, nonbloody stools,no fever ,chills. ROS General no headache, no dizziness no fever chills. CVS no chest pain, no palpitation. Respiratory no cough, no sob. Gastrointestinal nausea, abdominal pain Skin no rash Physical Exam Vital Signs: Vital Signs: Last Vital Signs Temp 97.9 F 04/26/21 15:27 Pulse 59 04/26/21 15:27 Resp 19 04/26/21 15:27 BP 135/67 04/26/21 15:27 Pulse Ox 96 04/26/21 15:27 Body Mass Index 29.4 General no acute distress. Neck supple no JVD. CVS regular rate rhythm, Respiratory lungs clear to auscultation, no respiratory distress Gastrointestinal abdomen soft,mild lower abd tenderness, bowel sounds audible, no guarding , no rigidity. Extremities no edema. Neuro nonfocal. Skin no rash Objective Data Current Medications Generic Name Dose Route Start Last Admin Trade Name Freq PRN Reason Stop Dose Admin Acetaminophen 650 mg 04/25/21 21:23 04/25/21 23:15 Acetaminophen 325 Mg Tablet PO 650 mg Q6H PRN Administration Pain, Mild (Pain Scale 1-3) Escitalopram Oxalate 10 mg 04/26/21 09:00 04/26/21 07:58 Escitalopram Oxalate 10 Mg Tablet PO 10 mg DAILY BENJAMIN Administration Hydrocortisone Sodium Succinate 50 mg 04/26/21 12:45 04/26/21 13:09 Hydrocortisone Sod Succ/Pf 100 Mg Vial IVPUSH 50 mg Q8H BENJAMIN Administration Hydromorphone HCl 0.5 mg 04/25/21 21:34 04/26/21 13:10 Hydromorphone Hcl 0.5 Mg/0.5 Ml Syringe IVPUSH 0.5 mg Q4H PRN Administration Breakthrough Pain Dextrose/Sodium Chloride 1,000 mls @ 100 mls/hr 04/25/21 21:30 04/26/21 07:59 D51/2ns IVCONT 100 mls/hr .Q10H BENJAMIN Administration Lorazepam 1 mg 04/25/21 21:33 04/26/21 00:42 Lorazepam 1 Mg Tablet PO 1 mg TID PRN Administration anxiety Non-Formulary Medication 3 mg 04/25/21 21:33 Eszopiclone PO BEDTIME PRN insomnia Omeprazole 20 mg 04/26/21 09:00 04/26/21 07:58 Omeprazole 20 Mg Capsule. PO 20 mg DAILY BENJAMIN Administration Ondansetron HCl 4 mg 04/25/21 21:34 04/26/21 08:03 Ondansetron Hcl 4 Mg/2 Ml Vial IVPUSH 4 mg Q8H PRN Administration Nausea and Vomiting Pharmacy Consult 1 each 04/25/21 20:55 Consult Rx Perform Med Rec MISCELLANE ONCE PRN Consult order Sodium Chloride 3 ml 04/26/21 00:00 04/26/21 15:22 0.9 % Sodium Chloride Flush 3 Ml Syringe IVFLUSH 3 ml QSHIFT BENJAMIN Administration Sumatriptan Succinate 100 mg 04/25/21 21:33 04/26/21 11:39 Sumatriptan Succinate 100 Mg Tablet PO 100 mg DAILY PRN Administration Migraine Headache Tramadol HCl 50 mg 04/25/21 21:33 04/26/21 08:04 Tramadol Hcl 50 Mg Tablet PO 50 mg TID PRN Administration pain Labs CBC & Chem 7: 04/26/21 05:39 04/26/21 05:39 Assessment and Plan (1) Ileitis, terminal: Status: Acute (2) Crohn's disease: Status: Acute Assessment and Plan: 45-year-old female with a past medical history of Crohn's disease, anxiety, depression, history of renal cell carcinoma, chronic back pain and migraines, osteoarthritis presented to the hospital with a chief complaint of abdominal pain/nausea/vomiting noted to have terminal ileitis. Admitted for further management. Crohn's flare/Terminal Ileitis: Persistent mild abdominal discomfort and nausea, patient seen by Dr. Alexis he Increased steroids, placed her on Full liquids Will follow labs at a.m., stool studies pending If patient's symptoms improved will transition to by mouth steroids and advance diet, outpatient follow-up with Gastroenterology for initiation of a biologic agent such as Humira or Entyvio. Antibiotics discontinued as per GI Continue IV fluids Depression continue Lexapro DVT prophylaxis: SCD boots Code status: Full code
[2021-04-27 04:00] VITALS: BP 115/61; PULSE 60; RESP 18; TEMP 36; O2SAT 97
[2021-04-27] MEDS: Hydrocortisone Sod Succ/PF 100 MG VIAL 50 MG IVPUSH ×3 (05:03→21:05)
[2021-04-27] MEDS: Dextrose 5 % and 0.45 % NaCl 1,000 ML 100 ML IVCONT (05:04)
[2021-04-27 06:32] LABS: MANUAL DIFF FLAG NO
[2021-04-27 07:07] LABS: Anion Gap 11 (12-20); Basophils Percent Auto 0.3 % (0-2); Blood Urea Nitrogen 5 mg/dL (9-16); Carbon Dioxide 24 mmol/L (22-29); Chloride 107 mmol/L (96-108); Creatinine Clr Calc Pharmacy 103.8; Eosinophils Percent Auto 0.3 % (0-4); Estimated Glomerular Filt Rate > 60; Glucose Fasting 114 mg/dL (60-99); Hematocrit 37.7 % (37-47); Hemoglobin 12.3 g/dl (12.0-16.0); Imm Gran Abs Auto 0.03 X10*3/uL (0.00-0.03); Imm Gran Pct Auto 0.4 % (0.0-0.4); Lymphocytes Percent Auto 12.8 % (20-40); Mean Corpuscular HGB Conc 32.6 g/dl (31.0-35.0); Mean Corpuscular Hemoglobin 31.1 pg (27.0-33.0); Mean Corpuscular Volume 95.2 fL (80-98); Mean Platelet Volume 10.3 fL (9.4-12.3); Monocytes Absolute Auto 0.6 X10*3/uL (0.1-1.2); Monocytes Percent Auto 7.7 % (2-11); Neutrophils Absolute Auto 5.9 X10*3/uL (2.0-8.3); Neutrophils Percent Auto 78.5 % (45-73); Platelet Count 257 X10*3/uL (160-400); Potassium 4.1 mmol/L (3.3-5.1); Red Blood Count 3.96 X10*6/uL (4.20-5.50); Red Cell Distribution Width 13.3 % (11.0-16.0); Sodium 138 mmol/L (135-145); White Blood Count 7.5 X10*3/uL (4.8-10.8)
[2021-04-27 07:22] VITALS: BP 111/60; PULSE 53; RESP 18; TEMP 36.6; O2SAT 97
[2021-04-27 07:31] LABS: C Reactive Protein 0.22 mg/dL (< or = 0.50)
[2021-04-27 07:41] LABS: Erythrocyte Sedimentation Rate 14 MM/HR (0-20)
[2021-04-27] MEDS: HYDROmorphone HCl 0.5 MG/0.5 ML SYRINGE IVPUSH ×4 (09:32→22:50)
[2021-04-27] MEDS: Omeprazole 20 MG CAPSULE.DR PO (09:33)
[2021-04-27] MEDS: Escitalopram Oxalate 10 MG TABLET PO (09:33)
[2021-04-27] MEDS: 0.9 % Sodium Chloride Flush 3 ML SYRINGE IVFLUSH ×2 (09:34→21:06)
[2021-04-27 11:24] VITALS: BP 124/78; PULSE 56; RESP 20; TEMP 36.5; O2SAT 97
[2021-04-27] MEDS: ondansetron HCL 4 MG/2 ML VIAL IVPUSH ×2 (14:09→21:06)
[2021-04-27 15:14] VITALS: BP 127/62; PULSE 57; RESP 18; TEMP 37.2; O2SAT 98
--- NOTE | 2021-04-27 15:14 | HO.PM.IMPN ---
Subjective Subjective Date of Service: 04/27/21 Interval History: Feeling better complaining of abdominal pain one hour after eating full liquid diet, no nausea, no vomiting, no fever, no chills no other acute issues overnight. ROS General no headache, no dizziness, no fever chills. CVS no chest pain, no palpitation. Respiratory no cough, no sob. Gastrointestinal no nausea, lower abdominal pain after eating Skin no rash Physical Exam Vital Signs: Vital Signs: Last Vital Signs Temp 97.7 F 04/27/21 11:24 Pulse 56 04/27/21 11:24 Resp 20 04/27/21 11:24 BP 124/78 04/27/21 11:24 Pulse Ox 97 04/27/21 11:24 Body Mass Index 29.4 General no acute distress. Neck supple no JVD. CVS regular rate rhythm, Respiratory lungs clear to auscultation, no respiratory distress Gastrointestinal abdomen soft, no tenderness, bowel sounds audible, no guarding , no rigidity. Extremities no edema. Neuro nonfocal. Skin no rash Objective Data Current Medications Generic Name Dose Route Start Last Admin Trade Name Freq PRN Reason Stop Dose Admin Acetaminophen 650 mg 04/25/21 21:23 04/25/21 23:15 Acetaminophen 325 Mg Tablet PO 650 mg Q6H PRN Administration Pain, Mild (Pain Scale 1-3) Escitalopram Oxalate 10 mg 04/26/21 09:00 04/27/21 09:33 Escitalopram Oxalate 10 Mg Tablet PO 10 mg DAILY BENJAMIN Administration Hydrocortisone Sodium Succinate 50 mg 04/26/21 12:45 04/27/21 14:09 Hydrocortisone Sod Succ/Pf 100 Mg Vial IVPUSH 50 mg Q8H BENJAMIN Administration Hydromorphone HCl 0.5 mg 04/25/21 21:34 04/27/21 14:09 Hydromorphone Hcl 0.5 Mg/0.5 Ml Syringe IVPUSH 0.5 mg Q4H PRN Administration Breakthrough Pain Lorazepam 1 mg 04/25/21 21:33 04/26/21 22:55 Lorazepam 1 Mg Tablet PO 1 mg TID PRN Administration anxiety Non-Formulary Medication 3 mg 04/25/21 21:33 Eszopiclone PO BEDTIME PRN insomnia Omeprazole 20 mg 04/26/21 09:00 04/27/21 09:33 Omeprazole 20 Mg Capsule.Dr PO 20 mg DAILY BENJAMIN Administration Ondansetron HCl 4 mg 04/25/21 21:34 04/27/21 14:09 Ondansetron Hcl 4 Mg/2 Ml Vial IVPUSH 4 mg Q8H PRN Administration Nausea and Vomiting Pharmacy Consult 1 each 04/25/21 20:55 Consult Rx Perform Med Rec MISCELLANE ONCE PRN Consult order Sodium Chloride 3 ml 04/26/21 00:00 04/27/21 09:34 0.9 % Sodium Chloride Flush 3 Ml Syringe IVFLUSH 3 ml QSHIFT BENJAMIN Administration Sumatriptan Succinate 100 mg 04/25/21 21:33 04/26/21 11:39 Sumatriptan Succinate 100 Mg Tablet PO 100 mg DAILY PRN Administration Migraine Headache Tramadol HCl 50 mg 04/25/21 21:33 04/26/21 20:30 Tramadol Hcl 50 Mg Tablet PO 50 mg TID PRN Administration pain Labs CBC & Chem 7: 04/27/21 05:44 04/27/21 05:44 Microbiology Microbiology Results: Microbiology 04/25/21 18:51 Blood - Venous Blood Culture - Preliminary No growth after 24 hours. 04/25/21 18:37 Blood - Venous Blood Culture - Preliminary No growth after 24 hours. Assessment and Plan (1) Ileitis, terminal: Status: Acute (2) Crohn's disease: Status: Acute (3) Depression: Status: Acute Assessment and Plan: 45-year-old female with a past medical history of Crohn's disease, anxiety, depression, history of renal cell carcinoma, chronic back pain and migraines, osteoarthritis presented to the hospital with a chief complaint of abdominal pain/nausea/vomiting noted to have terminal ileitis. Admitted for further management. Crohn's flare/Terminal Ileitis: Abdominal pain after eating, no nausea no vomiting, no diarrhea Continue high-dose steroids for 1 more day, DC IV fluids Advanced diet to low residue since patient does not have enough choice in full liquid diet inform her to take low-fiber, bland diet Repeat labs showed Normal electrolytes and WBC If patient's symptoms improved will transition to by mouth steroids prednisone 60 mg daily, will taper with 10 mg q.week, outpatient follow-up with Dr. Alexis for initiation of a biologic agent such as Humira or Entyvio. Antibiotics discontinued as per GI Possible discharge tomorrow if if tolerated diet Depression continue Lexapro, no acute decompensation DVT prophylaxis: SCD boots Code status: Full code
[2021-04-27 19:46] VITALS: BP 116/62; PULSE 67; RESP 18; TEMP 36.5; O2SAT 96
--- NOTE | 2021-04-27 20:16 | CONS_ITS ---
DATE OF SERVICE: 04/26/2021 REASON FOR CONSULTATION: Abdominal pain, nausea, diarrhea, and history of Crohn's disease. HISTORY OF PRESENT ILLNESS: The patient is a 45-year-old female, well known to me with a long-standing history of Crohn's disease of the small and large bowel with associated perianal disease as well. I last saw her in the office in January. At that time, she was still having some symptoms with loose bowel movements, which were fairly frequent. She was also having some postprandial diarrhea and urgency. At that time, she was on budesonide 6 mg daily, Pentasa 1 g t.i.d. or q.i.d., dicyclomine, Imodium, and some cholestyramine. On that visit as well as in previous office visits, I had discussed with her the need to start her on one of the biologic agents such as Humira, however, she did not want to do that due to concerns about immunocompromise. In any event, she reports that things were sort of at their baseline level until about 2 weeks ago when she began having some increasing lower abdominal pain, diarrhea, nausea, and vomiting. She was taking Zofran at home, but without much relief. She came to the ER and was subsequently admitted. Overnight, she has been feeling somewhat better after some IV steroids and IV hydration. She denies any signs of hematemesis, coffee-grounds emesis, hematochezia, nor melena. She does have a history of erythema nodosum, but has not noticed any new lesions during this recent increased GI symptomatology. She denies any fevers. She has not noticed any jaundice. She denies any recent antibiotic use, ill contacts, nor travel. She does take occasional NSAIDs. MEDICATIONS: At home included budesonide 6 mg daily, omeprazole, Pentasa 1 g q.i.d., cholestyramine, lorazepam, Zofran, tramadol, Ambien, and dicyclomine. PAST MEDICAL HISTORY: Notable for Crohn's disease, diagnosed in 1999. She had been having issues with perianal disease, requiring surgery for fissures and fistulae prior to that. She was treated with a course of Humira in 2010, but stopped that after few months because it does causing some side effects including mood swings and acne. Other medical issues include depression, hypertension, presumed renal carcinoma in the right kidney treated with cryoablation, kidney stones, reflux, and erythema nodosum. Her most recent colonoscopy was in July 2019 with active ileitis noted. The colonoscopy revealed a normal-appearing colon including biopsies. Surgeries include that of perianal disease with fistulae and sphincterotomy as well as anal dilatation at [facility] in [place]. She also had surgeries by Dr. Sweetie Tran. 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 Ed placed in the left femur in January [address] Messer. DANNY. FAMILY HISTORY: Father has Crohn's disease as does a paternal aunt. There is no family history of colorectal cancer. SOCIAL HISTORY: She is . 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 She does not smoke nor use any significant amounts of alcohol. REVIEW OF SYSTEMS: CONSTITUTIONAL: She has been feeling some fatigue and anorexia in relation to her active Crohn's symptoms. SKIN: Without rash. No pruritus. CARDIAC: No chest pain. PULMONARY: No coughing. No hemoptysis. GI: As above. PHYSICAL EXAMINATION: GENERAL: The patient is a pleasant, alert, comfortable-appearing female. SKIN: Warm and dry. HEENT: Anicteric sclerae. NECK: Supple. CHEST: Clear. CARDIAC: Normal S1 and S2. ABDOMEN: Soft. Normal bowel sounds. Nondistended. There is some mild lower abdominal tenderness, more so on the left, but no mass, rebound, or guarding. EXTREMITIES: Without edema nor any signs of erythema nodosum. DIAGNOSTIC DATA: Her CAT scan on admission revealed changes of the terminal ileum consistent with her known Crohn's disease with some marked wall thickening with some dilatation, but without any evidence of perforation, abscess, nor obstruction. There are no intraabdominal fluids. Her admitting laboratories revealed a white blood cell count of 8000, hemoglobin 14.4, and platelets 225,000. Normal chemistries. BUN 8 and creatinine 0.8. Lactic acid level 1.7. Normal LFTs. Albumin 4.0. IMPRESSION: Given the patient's clinical history, this is most consistent with continued activity and some worsening of her underlying Crohn's disease, particularly of the terminal ileum. Her abdominal exam seems to be benign. There does not appear to be any infectious component to this. Given her ongoing symptomatology, I would institute IV steroids. I think she can be on a full liquid diet for now. I would check stool for C difficile and follow her laboratories. I do not think she needs antibiotics at this time, given no sign of infection. I would also hold her cholestyramine during this acute flare up. I did have a detailed discussion with her today that I would still definitely recommend initiation of a biologic agent such as Humira or Entyvio as soon as possible once she is discharged. She is still not sure about that despite my recommendations and explanations. Hopefully, things will be able to improve fairly rapidly and we can transition her to an oral steroid taper, advance her diet, and then discharge her with close followup in the office to try to get started on one of the biologic agents. This has all been discussed with her in detail. Thank you for this consultation. MD ROGER Burrell/TALIB / [id number]
[2021-04-27] MEDS: traMADoL HCL 50 MG TABLET PO (21:04)
--- NOTE | 2021-04-27 22:11 | PM.GIPN ---
Subjective Subjective Date of Service: 04/27/21 Interval History: Patient is feeling better with less abdominal discomfort. Reports less nausea and no BM's today. Tolerating her diet thus far. Critical Care Time (minutes): 0 Physical Exam Vital Signs: Vital Signs: Last Vital Signs Temp 97.7 F 04/27/21 19:46 Pulse 67 04/27/21 19:46 Resp 18 04/27/21 19:46 BP 116/62 04/27/21 19:46 Pulse Ox 96 04/27/21 19:46 Body Mass Index 29.4 Const: General: cooperative, healthy appearing and comfortable GI: Other: Soft, Nondistended, + BS, NT, no mass/rebound/guarding Objective Data Labs CBC & Chem 7: 04/27/21 05:44 04/27/21 05:44 Labs: Laboratory Results - last 24 hr 04/27/21 04/27/21 04/27/21 05:44 05:44 05:44 WBC 7.5 RBC 3.96 L Hgb 12.3 Hct 37.7 MCV 95.2 MCH 31.1 MCHC 32.6 RDW 13.3 Plt Count 257 MPV 10.3 Immature Gran % (Auto) 0.4 Neut % (Auto) 78.5 H Lymph % (Auto) 12.8 L [place] % (Auto) 7.7 Eos % (Auto) 0.3 Baso % (Auto) 0.3 Lymph # (Auto) 1.0 L [place] # (Auto) 0.6 Eos # (Auto) 0.0 Baso # (Auto) 0.0 Abs Immat Gran (auto) 0.03 Absolute Neuts (auto) 5.9 Absolute Nucleated RBC 0.000 Nucleated RBC % (auto) 0.0 ESR 14 Sodium Potassium Chloride Carbon Dioxide Anion Gap BUN Creatinine Estim Creat Clear Calc Estimated GFR Fasting Glucose Calcium C-Reactive Protein 0.22 04/27/21 05:44 WBC RBC Hgb Hct MCV MCH MCHC RDW Plt Count MPV Immature Gran % (Auto) Neut % (Auto) Lymph % (Auto) [place] % (Auto) Eos % (Auto) Baso % (Auto) Lymph # (Auto) [place] # (Auto) Eos # (Auto) Baso # (Auto) Abs Immat Gran (auto) Absolute Neuts (auto) Absolute Nucleated RBC Nucleated RBC % (auto) ESR Sodium 138 Potassium 4.1 Chloride 107 Carbon Dioxide 24 Anion Gap 11 L BUN 5 L Creatinine 0.64 Estim Creat Clear Calc 103.8 Estimated GFR > 60 Fasting Glucose 114 H Calcium 9.0 C-Reactive Protein Microbiology Microbiology Results: Microbiology 04/25/21 18:51 Blood - Venous Blood Culture - Preliminary No growth after 48 hours. 04/25/21 18:37 Blood - Venous Blood Culture - Preliminary No growth after 48 hours. Progress Note: A&P Fall Risk Details Current Medications: Current Medications Generic Name Dose Route Start Last Admin Trade Name Freq PRN Reason Stop Dose Admin Acetaminophen 650 mg 04/25/21 21:23 04/25/21 23:15 Acetaminophen 325 Mg Tablet PO 650 mg Q6H PRN Administration Pain, Mild (Pain Scale 1-3) Escitalopram Oxalate 10 mg 04/26/21 09:00 04/27/21 09:33 Escitalopram Oxalate 10 Mg Tablet PO 10 mg DAILY BENJAMIN Administration Hydrocortisone Sodium Succinate 50 mg 04/26/21 12:45 04/27/21 21:05 Hydrocortisone Sod Succ/Pf 100 Mg Vial IVPUSH 04/28/21 02:00 50 mg Q8H BENJAMIN Administration Hydromorphone HCl 0.5 mg 04/25/21 21:34 04/27/21 18:31 Hydromorphone Hcl 0.5 Mg/0.5 Ml Syringe IVPUSH 0.5 mg Q4H PRN Administration Breakthrough Pain Lorazepam 1 mg 04/25/21 21:33 04/26/21 22:55 Lorazepam 1 Mg Tablet PO 1 mg TID PRN Administration anxiety Non-Formulary Medication 3 mg 04/25/21 21:33 Eszopiclone PO BEDTIME PRN insomnia Omeprazole 20 mg 04/26/21 09:00 04/27/21 09:33 Omeprazole 20 Mg Capsule. PO 20 mg DAILY BENJAMIN Administration Ondansetron HCl 4 mg 04/25/21 21:34 04/27/21 21:06 Ondansetron Hcl 4 Mg/2 Ml Vial IVPUSH 4 mg Q8H PRN Administration Nausea and Vomiting Pharmacy Consult 1 each 04/25/21 20:55 Consult Rx Perform Med Rec MISCELLANE ONCE PRN Consult order Prednisone 40 mg 04/28/21 09:00 Prednisone 20 Mg Tablet PO DAILY BENJAMIN Sodium Chloride 3 ml 04/26/21 00:00 04/27/21 21:06 0.9 % Sodium Chloride Flush 3 Ml Syringe IVFLUSH 3 ml QSHIFT BENJAMIN Administration Sumatriptan Succinate 100 mg 04/25/21 21:33 04/26/21 11:39 Sumatriptan Succinate 100 Mg Tablet PO 100 mg DAILY PRN Administration Migraine Headache Tramadol HCl 50 mg 04/25/21 21:33 04/27/21 21:04 Tramadol Hcl 50 Mg Tablet PO 50 mg TID PRN Administration pain Time Spent With Patient Time: Total time spent is greater than 50% in coordination of care (as documented) at patient's floor/unit and/or counseling patient: Time with patient: 15 - 24 minutes Procedures Date of Service Date of Service: 04/27/21
[2021-04-27] MEDS: LORazepam 1 MG TABLET PO (22:50)
[2021-04-27 23:54] VITALS: BP 138/75; PULSE 52; RESP 18; TEMP 36.4; O2SAT 97
[2021-04-28 04:00] VITALS: BP 106/53; PULSE 52; RESP 20; TEMP 37; O2SAT 98
[2021-04-28 07:34] VITALS: BP 113/64; PULSE 65; RESP 20; TEMP 36.5; O2SAT 97
[2021-04-28] MEDS: ondansetron HCL 4 MG/2 ML VIAL IVPUSH (09:09)
[2021-04-28] MEDS: HYDROmorphone HCl 0.5 MG/0.5 ML SYRINGE IVPUSH ×4 (09:09→22:31)
[2021-04-28] MEDS: Omeprazole 20 MG CAPSULE.DR PO (09:17)
[2021-04-28] MEDS: 0.9 % Sodium Chloride Flush 3 ML SYRINGE IVFLUSH ×3 (09:17→20:30)
[2021-04-28] MEDS: predniSONE 20 MG TABLET 40 MG PO (09:17)
[2021-04-28] MEDS: Escitalopram Oxalate 10 MG TABLET PO (09:17)
[2021-04-28 11:02] VITALS: BP 140/70; PULSE 64; RESP 20; TEMP 36.7; O2SAT 99
[2021-04-28] MEDS: SUMAtriptan succinate 100 MG TABLET PO (11:02)
[2021-04-28] MEDS: Dicyclomine HCl 10 MG CAPSULE PO ×2 (13:42→17:24)
--- NOTE | 2021-04-28 14:33 | P.PNIM_ITS ---
Subjective Subjective Date of Service: 04/29/21 Interval History: Patient seen and examined at bedside. Her diet was advanced yesterday afternoon S she reported improvement in her abdominal pain but reports that after lunch and after dinner as well as after breakfast this morning had significant abdominal pain and did not tolerate her food well. Patient reports lower abdominal pain although slightly improved from her initial presentation. Denies any nausea or vomiting, has been constipated for 4-5 days. Physical Exam Vital Signs: Vital Signs: Last Vital Signs Temp 98.1 F 04/28/21 11:02 Pulse 64 04/28/21 11:02 Resp 20 04/28/21 11:02 BP 140/70 H 04/28/21 11:02 Pulse Ox 99 04/28/21 11:02 Body Mass Index 29.4 Const: General: cooperative and no acute distress Orientation/consciousness: patient oriented x3 Resp: Effort & Inspection: normal respiratory effort and able to speak in comp lete sentences Cardio: Rate: regular rate Rhythm: regular rhythm GI: Other: lower abd tenderness, no rebound or guarding Palpation (GI): Soft to palpation Auscultation: normal bowel sounds Neuro: General: patient oriented x3 Cognition (Neuro): normal cognition Extrem: General: Yes normal to inspection and Yes no pedal edema Objective Data Current Medications Generic Name Dose Route Start Last Admin Trade Name Demetriusq PRN Reason Stop Dose Admin Acetaminophen 650 mg 04/25/21 21:23 04/25/21 23:15 Acetaminophen 325 Mg Tablet PO 650 mg Q6H PRN Administration Pain, Mild (Pain Scale 1-3) Dicyclomine HCl 10 mg 04/28/21 12:25 04/28/21 13:42 Dicyclomine Hcl 10 Mg Capsule PO 10 mg TIDAC BENJAMIN Administration Escitalopram Oxalate 10 mg 04/26/21 09:00 04/28/21 09:17 Escitalopram Oxalate 10 Mg Tablet PO 10 mg DAILY BENJAMIN Administration Hydromorphone HCl 0.5 mg 04/25/21 21:34 04/28/21 13:48 Hydromorphone Hcl 0.5 Mg/0.5 Ml Syringe IVPUSH 0.5 mg Q4H PRN Administration Breakthrough Pain Lorazepam 1 mg 04/25/21 21:33 04/27/21 22:50 Lorazepam 1 Mg Tablet PO 1 mg TID PRN Administration anxiety Non-Formulary Medication 3 mg 04/25/21 21:33 Eszopiclone PO BEDTIME PRN insomnia Omeprazole 20 mg 04/26/21 09:00 04/28/21 09:17 Omeprazole 20 Mg Capsule. PO 20 mg DAILY BENJAMIN Administration Ondansetron HCl 4 mg 04/25/21 21:34 04/28/21 09:09 Ondansetron Hcl 4 Mg/2 Ml Vial IVPUSH 4 mg Q8H PRN Administration Nausea and Vomiting Pharmacy Consult 1 each 04/25/21 20:55 Consult Rx Perform Med Rec MISCELLANE ONCE PRN Consult order Prednisone 40 mg 04/28/21 09:00 04/28/21 09:17 Prednisone 20 Mg Tablet PO 40 mg DAILY BENJAMIN Administration Sodium Chloride 3 ml 04/26/21 00:00 04/28/21 09:17 0.9 % Sodium Chloride Flush 3 Ml Syringe IVFLUSH 3 ml QSHIFT BENJAMIN Administration Sumatriptan Succinate 100 mg 04/25/21 21:33 04/28/21 11:02 Sumatriptan Succinate 100 Mg Tablet PO 100 mg DAILY PRN Administration Migraine Headache Tramadol HCl 50 mg 04/25/21 21:33 04/27/21 21:04 Tramadol Hcl 50 Mg Tablet PO 50 mg TID PRN Administration pain Labs CBC & Chem 7: 04/29/21 05:55 04/29/21 05:55 Microbiology Microbiology Results: Microbiology 04/25/21 18:51 Blood - Venous Blood Culture - Preliminary No growth after 48 hours. 04/25/21 18:37 Blood - Venous Blood Culture - Preliminary No growth after 48 hours. Assessment and Plan (1) Ileitis, terminal: Status: Acute (2) Crohn's disease: Status: Acute Assessment and Plan: 45-year-old female with a past medical history of Crohn's disease, anxiety, dep ression, history of renal cell carcinoma, chronic back pain and migraines, osteoarthritis presented to the hospital with a chief complaint of abdominal pain/nausea/vomiting noted to have terminal ileitis. Admitted for further management. # Crohn's flare/Terminal Ileitis: - Her diet was advanced yesterday but pt reports that her abd pain worsened after she started regular diet - She has no nausea, vomiting, and has nt have any BM since 04/25 - Her steroids were changed to PO yesterday- will taper with 10 mg q.week, outpatient follow-up with Dr. Alexis for initiation of a biologic agent such as Humira or Entyvio. op once discharged - Antibiotics discontinued as per GI - given her intolerance for regular diet, will keep one more day with possible discharge tomorrow if if tolerated diet # Constipation - Will obtain KUB # Depression continue Lexapro, no acute decompensation DVT prophylaxis: SCD boots Code status: Full code
[2021-04-28 16:56] VITALS: BP 136/77; PULSE 54; RESP 18; TEMP 36.7; O2SAT 98
--- NOTE | 2021-04-28 18:08 | PM.EVENT ---
Event Note Date of Service: 04/28/21 Event Note: I spoke with hospitalist and the patient, and reviewed her course. I think she is having discomfort from intestinal spasm, as well as the Crohn's. Her abdominal xray this afternoon does not show an obstructive pattern nor any other worrisome findings. I would continue the oral prednisone and have added 20mg dicyclomine AC and HS to hopefully give her some symptomatic relief. I have sent her Rx's for the dicyclomine and prednisone to her pharmacy as well, and will arrange for the Humira as soon as possible. Hopefully she will be able to go home tomorrow, Saturday. D/W patient in detail and she is comfortable with this plan. Thanks.
[2021-04-28 19:30] VITALS: BP 126/71; PULSE 57; RESP 20; TEMP 36.7; O2SAT 97
[2021-04-28] MEDS: Dicyclomine HCl 10 MG CAPSULE 20 MG PO (20:29)
[2021-04-28] MEDS: traMADoL HCL 50 MG TABLET PO (20:34)
[2021-04-28] MEDS: LORazepam 1 MG TABLET PO (22:35)
[2021-04-28] MEDS: Docusate Sodium 100 MG CAPSULE PO (23:10)
[2021-04-29] VITALS: BP 111/64; PULSE 64; RESP 18; TEMP 36.6; O2SAT 98
[2021-04-29 03:43] VITALS: BP 126/70; PULSE 58; RESP 18; TEMP 36.6; O2SAT 98
[2021-04-29] MEDS: HYDROmorphone HCl 0.5 MG/0.5 ML SYRINGE IVPUSH ×2 (03:50→09:06)
[2021-04-29 06:53] LABS: MANUAL DIFF FLAG NO
[2021-04-29 06:57] LABS: Basophils Percent Auto 0.2 % (0-2); Eosinophils Percent Auto 0.4 % (0-4); Hematocrit 38.2 % (37-47); Hemoglobin 12.4 g/dl (12.0-16.0); Imm Gran Abs Auto 0.06 X10*3/uL (0.00-0.03); Imm Gran Pct Auto 0.7 % (0.0-0.4); Lymphocytes Absolute Auto 1.8 X10*3/uL (1.2-4.9); Lymphocytes Percent Auto 21.6 % (20-40); Mean Corpuscular HGB Conc 32.5 g/dl (31.0-35.0); Mean Corpuscular Hemoglobin 30.6 pg (27.0-33.0); Mean Corpuscular Volume 94.3 fL (80-98); Mean Platelet Volume 10.5 fL (9.4-12.3); Monocytes Absolute Auto 0.8 X10*3/uL (0.1-1.2); Monocytes Percent Auto 9.7 % (2-11); Neutrophils Absolute Auto 5.6 X10*3/uL (2.0-8.3); Neutrophils Percent Auto 67.4 % (45-73); Platelet Count 256 X10*3/uL (160-400); Red Blood Count 4.05 X10*6/uL (4.20-5.50); Red Cell Distribution Width 13.1 % (11.0-16.0); White Blood Count 8.4 X10*3/uL (4.8-10.8)
[2021-04-29 07:24] LABS: Anion Gap 13 (12-20); Blood Urea Nitrogen 9 mg/dL (9-16); Calcium 8.8 mg/dL (8.4-10.2); Carbon Dioxide 28 mmol/L (22-29); Chloride 103 mmol/L (96-108); Creatinine Clr Calc Pharmacy 94.9; Estimated Glomerular Filt Rate > 60; Glucose Fasting 79 mg/dL (60-99); Potassium 4.4 mmol/L (3.3-5.1); Sodium 140 mmol/L (135-145)
[2021-04-29] MEDS: Dicyclomine HCl 10 MG CAPSULE 20 MG PO (07:27)
[2021-04-29] MEDS: predniSONE 20 MG TABLET 40 MG PO (07:27)
[2021-04-29] MEDS: 0.9 % Sodium Chloride Flush 3 ML SYRINGE IVFLUSH (07:28)
[2021-04-29] MEDS: Omeprazole 20 MG CAPSULE.DR PO (07:28)
[2021-04-29] MEDS: Escitalopram Oxalate 10 MG TABLET PO (07:28)
[2021-04-29 07:55] VITALS: BP 123/63; PULSE 50; RESP 20; TEMP 36.6; O2SAT 98
[2021-04-29 08:00] VITALS: BP 165/84; PULSE 81; RESP 20; TEMP 37
[2021-04-29] MEDS: Docusate Sodium 100 MG CAPSULE PO (09:06)
--- NOTE | 2021-04-29 10:02 | MHC.CM.PN ---
PT CLEARED TO DC HOME TODAY WITH NO SERVICES
--- NOTE | 2021-04-29 15:07 | PM.DS ---
DS: Providers Provider Date of Service: 04/29/21 Date of admission: 04/25/21 21:24 Primary care physician: Jaswant Frank MD Consults: 04/25/21 21:23 Consult to Gastroenterology Routine Consulting Provider: Matthew Alexis Reason for consultation: crohns flare DS: Diagnosis Discharge Diagnosis (1) Ileitis, terminal: Status: Acute (2) Crohn's disease: Status: Acute DS: Medications Discharge Medications Home Medications: Home Medications Medication Instructions Recorded Confirmed levonorgestrel 20 mcg/24 hours (6 1 device INTRAUTERINE ONCE 10/04/20 04/25/21 yrs) 52 mg intrauterine device cholestyramine (with sugar) 4 gram 2 g PO BID 12/05/20 04/25/21 oral powder omeprazole 20 mg capsule,delayed 20 mg PO DAILY 12/05/20 04/25/21 release Pentasa 1,000 mg PO TID 04/25/21 04/25/21 ondansetron HCl 4 mg PO Q8H PRN 04/25/21 04/25/21 sumatriptan succinate 0.5 tab PO DAILY MRX1 PRN 04/25/21 04/25/21 tramadol 50 mg PO TID PRN 04/25/21 04/25/21 Previous Rx's Medication Instructions Recorded eszopiclone 3 mg tablet 3 mg PO BEDTIME PRN 30 Days #30 tab 03/06/21 escitalopram oxalate 10 mg tablet 10 mg PO DAILY 30 Days #30 tab 03/29/21 lorazepam 1 mg tablet 1 mg PO TID PRN 30 Days #90 tab 03/29/21 acetaminophen 650 mg PO Q8H PRN 30 Days tab 04/29/21 DS: Summary Hospital Course Hospital Course: 43-year-old female with a past medical history of Crohn's disease, anxiety, depression, history of chronic back pain, osteoarthritis, migraine, 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 Patient mentioned that she always has diarrhea. But for the past 3 4 days she has been having abdominal pain which is worse than her prior abdominal pains gradually increasing associated nausea vomiting.; spoke to her coil shaper who suggested to take the medications at home with not improving to go to the ER for further evaluation. Patient denies any fevers. Pt admitted for management of Ileitis/Crohn's flare. Pt was seen and evaluated by coil shaper. Pt was started with prednisone and dicyclomine. Pt symptoms improved and diet advanced and will be sent home on Dicyclomine TIDAC and prednisone. meds were sent to pharmacy by GI. Pt to follow up with Dr. Alexis to be started on a biologic agent Time Spent with Patient Time attestation: Total time spent providing and/or coordinating discharge services: Discharge coordination time: Greater than 30 minutes Quality: Stroke Does the patient have a stroke diagnosis?: No Physical Exam Vital Signs: Vital Signs: Last Vital Signs Temp 98.6 F 04/29/21 08:00 Pulse 81 04/29/21 08:00 Resp 20 04/29/21 08:00 BP 165/84 H 04/29/21 08:00 Pulse Ox 98 04/29/21 07:55 Body Mass Index 29.4 Const: General: cooperative and no acute distress Orientation/consciousness: patient oriented x3 Resp: Effort & Inspection: normal respiratory effort Cardio: Rate: regular rate Rhythm: regular rhythm GI: Palpation (GI): Soft to palpation Auscultation: normal bowel sounds Skin: General skin exam: no rashes or lesions noted Neuro: General: patient oriented x3 Cognition (Neuro): normal cognition Extrem: General: Yes normal to inspection and Yes no pedal edema DS: Data Data Completed and Pending Labs on day of discharge: Laboratory Results - last 24 hr 04/29/21 04/29/21 05:55 05:55 WBC 8.4 RBC 4.05 L Hgb 12.4 Hct 38.2 MCV 94.3 MCH 30.6 MCHC 32.5 RDW 13.1 Plt Count 256 MPV 10.5 Immature Gran % (Auto) 0.7 H Neut % (Auto) 67.4 Lymph % (Auto) 21.6 [place] % (Auto) 9.7 Eos % (Auto) 0.4 Baso % (Auto) 0.2 Lymph # (Auto) 1.8 [place] # (Auto) 0.8 Eos # (Auto) 0.0 Baso # (Auto) 0.0 Abs Immat Gran (auto) 0.06 H Absolute Neuts (auto) 5.6 Absolute Nucleated RBC 0.000 Nucleated RBC % (auto) 0.0 Sodium 140 Potassium 4.4 Chloride 103 Carbon Dioxide 28 Anion Gap 13 BUN 9 D Creatinine 0.70 Estim Creat Clear Calc 94.9 Estimated GFR > 60 Fasting Glucose 79 Calcium 8.8 Preliminary micro results at discharge 04/25/21 18:51 Blood Culture - Preliminary Blood - Venous No growth after 48 hours. 04/25/21 18:37 Blood Culture - Preliminary Blood - Venous No growth after 48 hours. Discharge Plan Discharge Patient Disposition: Home, Self-Care Discharge Diagnosis: Crohn's flare Referrals: Jaswant Frank MD [Primary Care Provider] - 1 Week Matthew Alexis [Physician] - 1 Week Discharge Medications: New acetaminophen 325 mg Tablet 650 mg PO Q8H PRN (Reason: Pain, Mild (Pain Scale 1-3)) 30 Days RF: 0 Continued lorazepam 1 mg tablet 1 mg PO TID PRN (Reason: anxiety) 30 Days Qty: 90 RF: 0 escitalopram oxalate 10 mg tablet 10 mg PO DAILY 30 Days Qty: 30 RF: 2 sumatriptan succinate 100 mg tablet 0.5 tab PO DAILY MRX1 PRN (Reason: Migraine Headache) RF: 0 ondansetron HCl 4 mg tablet 4 mg PO Q8H PRN (Reason: persistent nausea and vomiting) RF: 0 tramadol 50 mg tablet 50 mg PO TID PRN (Reason: pain) RF: 0 Pentasa 500 mg Capsule, Extended Release 1,000 mg PO TID RF: 0 Mirena 20 mcg/24 hours (6 yrs) 52 mg intrauterine device 1 device intrauterine ONCE RF: 0 omeprazole 20 mg capsule,delayed release(DR/EC) 20 mg PO DAILY RF: 0 cholestyramine (with sugar) 4 gram powder 2 g PO BID RF: 0 eszopiclone 3 mg tablet 3 mg PO BEDTIME PRN (Reason: insomnia) 30 Days Qty: 30 RF: 1 Discontinued budesonide 3 mg capsule,delayed,extend.release 9 mg PO DAILY RF: 0 Discharge Orders: Discharge Order (Routine); Ordered 04/29/21 Ordered By: Maya García Diet: other Activity on Discharge: As tolerated Stand Alone Forms: Patient Portal Discharge page Care Plan Goals: Avoid hospitalization. recovery. follow up with coil shaper to start biologics Health Concerns: Crohn's flare Plan of Treatment: Continue taking prednisone and dicyclomine as prescribed by the coil shaper Assessment: you were treated for Crohn's flare with dicyclomine and prednisone. Please continue these medications. The script has been sent to your pharmacy by the coil shaper. Please follow up With Dr. Alexis in office in 1-2 wks to start main treatment for your Crohn's. Discharge Date/Time: 04/29/21 11:38
== END 2021-04-29 11:38 | disposition home or self-care (01) | DRG 245 ==
LOC: HO.ED 20:55 → HO.IMC 23:22
PROVIDERS: Internal Medicine; Nurse Practitioner Family; Physician Assistant; Admitting Provider Hospitalist; Emergency Provider Emergency Medicine; PCP Internal Medicine; Visit Provider Internal Medicine
DX: K50.00 Crohn's disease of small intestine without complications (principal); F32.9 Major depressive disorder, single episode, unspecified; F41.9 Anxiety disorder, unspecified; M19.90 Unspecified osteoarthritis, unspecified site; M54.9 Dorsalgia, unspecified; G89.29 Other chronic pain; Z20.822 Contact with and (suspected) exposure to COVID-19; Z88.5 Allergy status to narcotic agent; Z79.52 Long term (current) use of systemic steroids; Z79.899 Other long term (current) drug therapy
CPT/HCPCS: 36415; 74018; 74177; 80048; 80076; 81003; 83605; 83690; 83735; 85025; 85610; 85652; 86140; 87040; 87635; 99285; J0696; J1170; J1200; J1956; J2405; J2765; J2920; Q9967

== ENCOUNTER 2021-05-01 19:38 | Inpatient (IN) | payer OTHER, SELFPAY ==
--- NOTE | ~2021-05-01 | CT_ITS ---
EXAMINATION: CT ABDOMEN AND PELVIS WITH CONTRAST CLINICAL INFORMATION: Abdominal pain. History of Crohn's disease. COMPARISON: CT abdomen and pelvis 04/25/2021. TECHNIQUE: Multidetector volumetric images were obtained from the superior aspect of the liver through the pubic symphysis following administration 85 mL of Omnipaque 350 intravenous contrast. Sagittal and coronal reformatted images were obtained on the technologist's workstation. Oral contrast: No This CT examination was performed using dose optimization techniques as appropriate, variously including the following: *Automated exposure control *Adjustment of mA and/or kV according to patient size (this includes techniques or standardized protocols for targeted exams where dose is matched to indication/reason for exam; i.e. extremities or head) *Use of iterative reconstruction technique DLP: 620 mGy-cm FINDINGS: LUNG BASES: The lung bases are clear. The heart size is normal. LIVER, GALLBLADDER, AND BILIARY TREE: The liver is normal in size, shape, and attenuation. No focal hepatic lesion or biliary ductal dilatation is present. The gallbladder is unremarkable with no evidence of radiopaque gallstones, gallbladder wall thickening, or obvious pericholecystic inflammatory changes. PANCREAS: Unremarkable. SPLEEN: Unremarkable. ADRENAL GLANDS: Unremarkable. KIDNEYS AND URETERS: The kidneys are normal in size, shape, and attenuation. No hydronephrosis, hydroureter, or calculi seen. No perinephric stranding. There is subtle hypodensity in the posterior cortex mid to lower pole right kidney likely cortical scar unchanged to previous study 04/25/2021. BLADDER: Unremarkable. GASTROINTESTINAL TRACT: There is diffuse skin sigmoid and scattered rest of colon diverticulosis without diverticulitis. The there is diffuse thickening of the terminal ileum with mild pericolic fat stranding suggestive of Crohn's disease. It involves approximately a foot of terminal ileum. The stomach is nondistended and appears unremarkable. No free fluid or free air seen. ABDOMINAL WALL: A small umbilical hernia containing fat is noted. LYMPH NODES: Normal. VASCULAR: Unremarkable. PELVIC VISCERA: There is an anteverted uterus with an IUD well located within the endometrial canal. OSSEOUS STRUCTURES: Mild facet joint arthropathy L4-L5 disc level. No lytic or sclerotic process seen. CT/CT abdomen pelvis w con IMPRESSION: Diffuse mural thickening involving of foot of terminal ileum from the ileocecal valve consistent with Crohn's disease. There is mild pericolic fat stranding seen Diffuse sigmoid and rest of colon diverticulosis without diverticulitis. Mild constipation. Small umbilical hernia containing fat.
[2021-05-01 20:07] VITALS: BP 129/74; PULSE 87; RESP 18; TEMP 36.4; O2SAT 97
[2021-05-01 21:31] LABS: MANUAL DIFF FLAG NO
[2021-05-01 21:32] LABS: Basophils Percent Auto 0.2 % (0-2); Eosinophils Percent Auto 0.1 % (0-4); Hematocrit 40.8 % (37-47); Hemoglobin 13.6 g/dl (12.0-16.0); Imm Gran Pct Auto 0.8 % (0.0-0.4); Lymphocytes Absolute Auto 1.6 X10*3/uL (1.2-4.9); Lymphocytes Percent Auto 13.1 % (20-40); Mean Corpuscular HGB Conc 33.3 g/dl (31.0-35.0); Mean Corpuscular Hemoglobin 30.7 pg (27.0-33.0); Mean Corpuscular Volume 92.1 fL (80-98); Mean Platelet Volume 10.1 fL (9.4-12.3); Monocytes Absolute Auto 1.1 X10*3/uL (0.1-1.2); Monocytes Percent Auto 9.2 % (2-11); Neutrophils Absolute Auto 9.1 X10*3/uL (2.0-8.3); Neutrophils Percent Auto 76.6 % (45-73); Platelet Count 317 X10*3/uL (160-400); Red Blood Count 4.43 X10*6/uL (4.20-5.50); Red Cell Distribution Width 13.2 % (11.0-16.0); White Blood Count 11.9 X10*3/uL (4.8-10.8)
--- NOTE | 2021-05-01 21:37 | ED.ABDPAIN ---
HPI - Abdominal Pain General Chief Complaint: Abdominal Pain Stated Complaint: ABD PAIN Time Seen by Provider: 05/01/21 21:34 History of Present Illness HPI narrative: Patient is a 45-year-old female with a history of Crohn's disease. She just recently discharged from the hospital on Saturday. Presents today with having abdominal pain continuous. She has been on steroids all long on upon discharge. She is currently on 40 mg of prednisone. Patient claims compliance with her meds. The pain is diffuse over the entire abdomen. Worse in the lower abdomen worse on the right side. No fever no chills. Positive nausea. No vomiting. Positive bowel movements. No bloody stool. No cough and a congestion or upper respiratory symptoms. Patient is from home. Symptoms the same as during the last Related Data Home Medications Medication Instructions Recorded Confirmed levonorgestrel 20 mcg/24 hours (6 1 device INTRAUTERINE ONCE 10/04/20 05/01/21 yrs) 52 mg intrauterine device cholestyramine (with sugar) 4 gram 2 g PO BID 12/05/20 05/01/21 oral powder omeprazole 20 mg capsule,delayed 20 mg PO DAILY 12/05/20 05/01/21 release Pentasa 1,000 mg PO TID 04/25/21 05/01/21 ondansetron HCl 4 mg PO Q8H PRN 04/25/21 05/01/21 sumatriptan succinate 0.5 tab PO DAILY MRX1 PRN 04/25/21 05/01/21 Previous Rx's Medication Instructions Recorded escitalopram oxalate 10 mg tablet 10 mg PO DAILY 30 Days #30 tab 03/29/21 acetaminophen 650 mg PO Q8H PRN 30 Days tab 04/29/21 tramadol 50 mg tablet 50 mg PO TID PRN 30 Days #90 tab 04/30/21 buspirone 15 mg tablet 15 mg PO BID 30 Days #60 tab 05/01/21 eszopiclone 3 mg tablet 3 mg PO BEDTIME PRN 30 Days #30 tab 05/01/21 lorazepam 1 mg tablet 1 mg PO TID PRN 30 Days #90 tab 05/01/21 Allergies Allergy/AdvReac Type Severity Reaction Status Date / Time meperidine [From Demerol] Allergy Severe SWELLING,RASH,THROAT Verified 03/13/21 00:00 CLOSES latex [LATEX] Allergy Mild RASH Verified 03/13/21 00:00 codeine [Codeine] AdvReac Intermediate NAUSEA/VOMITING, Verified 03/13/21 00:00 GI upset/vomiting Fish Containing Products AdvReac Unknown NAUSEA/VOMI Verified 03/13/21 00:00 [Fish Product Derivatives] TING trazodone AdvReac Intermediate worsening Uncoded 03/13/21 00:00 anxiety symptoms Review of Systems Review of Systems Constitutional: No Weight loss, No Fever, No Chills, No Night Sweats, No Fatigue, No Malaise ENT/Mouth: No Hearing loss, No Ear Pain, No Nasal Congestion, No Sinus Pain, No Hoarseness, No sore throat, No Rhinorrhea, No Swallowing Difficulty Eyes: No Eye Pain, No Swelling, No Redness, No Foreign Body, No Discharge, No Vision Changes Cardiovascular: No Chest Pain, No SOB, No Dyspnea on Exertion, No Orthopnea, No Edema, No Palpitations Respiratory: No Cough, No Sputum, No Wheezing, No Smoke Exposure, No Dyspnea Gastrointestinal: Positive Nausea, No Vomiting, No Diarrhea, No Constipation, positive abdominal Pain, No Hematochezia, No Melena Genitourinary: no irregular bleeding, No Dysuria, No Urinary Frequency, No Hematuria, No Urinary Incontinence, No Urgency, No Flank Pain, No Urinary Flow Changes, No Hesitancy Musculoskeletal: No joint pain, No Myalgias, No Joint Swelling Skin: No Skin Lesions, No rash Neuro: No Weakness, No Numbness, No Paresthesias, No Loss of Consciousness, No Dizziness, No Headache Psych: No Anxiety/Panic, No Depression, No SI/HI/AH/VH, No Social Issues, Heme/Lymph: No Bruising, No Bleeding,No Lymphadenopathy Endocrine: No Polyuria, No Polydipsia, No Temperature Intolerance Physical Exam Vital Signs: Vital Signs: Last Vital Signs Temp 98.8 F 05/01/21 22:00 Pulse 75 05/01/21 22:00 Resp 16 05/01/21 22:00 BP 145/74 H 05/01/21 22:00 Pulse Ox 98 05/01/21 22:00 Body Mass Index 30.0 Appearance: Alert. Oriented X3. No acute distress. Eyes: Pupils equal, round and reactive to light. ENT: Pharynx normal. Neck: Normal inspection. Neck supple. No lymph nodes noted. No crepitus CVS: Normal heart rate and rhythm. Pulses normal. Normal S1 and S2 Respiratory: No respiratory distress. Breath sounds normal. No Wheezing. No rales Abdomen: Soft and nontender. No rigidity. No distention. good BS x4 Skin: Skin warm and dry. Normal skin color. Normal skin turgor. Extremities: No lower extremity edema. Neurovascular intact to all extremities. No Lacerations. No Rash Neuro: Oriented X 3. No motor deficit. No sensory deficit. Moving all extermities. No slurred speech MDM - Abdominal Pain MDM Narrative Medical decision making narrative: Patient has a history of Crohn's disease recently discharged from the hospital. Given additional dose of steroid pain medication with good relief of symptoms. Patient did not feel comfortable going home. CT scan showed no obstruction or abscess. Case discussed with hospitalist will admit overnight for observation. Currently in stable condition. Lab Data Result diagrams: 05/01/21 21:27 05/01/21 21:27 Labs: Lab Results 05/01/21 05/01/21 05/01/21 Range/Units 21:27 21:27 22:47 WBC 11.9 H (4.8-10.8) X10*3/uL RBC 4.43 (4.20-5.50) X10*6/uL Hgb 13.6 (12.0-16.0) g/dl Hct 40.8 (37-47) % MCV 92.1 (80-98) fL MCH 30.7 (27.0-33.0) pg MCHC 33.3 (31.0-35.0) g/dl RDW 13.2 (11.0-16.0) % Plt Count 317 (160-400) X10*3/uL MPV 10.1 (9.4-12.3) fL Immature Gran % (Auto) 0.8 H (0.0-0.4) % Neut % (Auto) 76.6 H (45-73) % Lymph % (Auto) 13.1 L (20-40) % [place] % (Auto) 9.2 (2-11) % Eos % (Auto) 0.1 (0-4) % Baso % (Auto) 0.2 (0-2) % Lymph # (Auto) 1.6 (1.2-4.9) X10*3/uL [place] # (Auto) 1.1 (0.1-1.2) X10*3/uL Eos # (Auto) 0.0 (0.0-0.4) X10*3/uL Baso # (Auto) 0.0 (0.0-0.2) X10*3/uL Abs Immat Gran (auto) 0.10 H (0.00-0.03) X10*3/uL Absolute Neuts (auto) 9.1 H (2.0-8.3) X10*3/uL Absolute Nucleated RBC 0.000 (0.0-0.012) X10*3/uL Nucleated RBC % (auto) 0.0 (0.0-0.2) /100WBC Sodium 144 (135-145) mmol/L Potassium 4.7 (3.3-5.1) mmol/L Chloride 108 (96-108) mmol/L Carbon Dioxide 26 (22-29) mmol/L Anion Gap 15 (12-20) BUN 12 (9-16) mg/dL Creatinine 0.75 (0.5-1.4) mg/dL Estim Creat Clear Calc 89.5 Estimated GFR > 60 Random Glucose 102 (60-115) mg/dL Calcium 9.4 D (8.4-10.2) mg/dL Total Bilirubin 0.2 (0.0-1.0) mg/dL Direct Bilirubin < 0.2 (0.0-0.5) mg/dL AST 18 (5-31) U/L ALT 11 (0-31) U/L Alkaline Phosphatase 80 D (39-117) U/L Total Protein 6.8 (6.5-8.0) g/dL Albumin 3.6 (3.5-5.0) g/dL Lipase 30 (8-78) U/L COVID-19 ([facility]) Negative (Negative) COVID-19 Clin Com See Note Discharge Plan Discharge Clinical Impression: Crohn's disease Prescriptions: No Action escitalopram oxalate 10 mg tablet 10 mg PO DAILY 30 Days Qty: 30 RF: 2 tramadol 50 mg tablet 50 mg PO TID PRN (Reason: pain) 30 Days Qty: 90 RF: 0 lorazepam 1 mg tablet 1 mg PO TID PRN (Reason: anxiety) 30 Days Qty: 90 RF: 0 eszopiclone 3 mg tablet 3 mg PO BEDTIME PRN (Reason: insomnia) 30 Days Qty: 30 RF: 1 buspirone 15 mg tablet 15 mg PO BID 30 Days Qty: 60 RF: 0 sumatriptan succinate 100 mg tablet 0.5 tab PO DAILY MRX1 PRN (Reason: Migraine Headache) RF: 0 ondansetron HCl 4 mg tablet 4 mg PO Q8H PRN (Reason: persistent nausea and vomiting) RF: 0 Pentasa 500 mg Capsule, Extended Release 1,000 mg PO TID RF: 0 acetaminophen 325 mg Tablet 650 mg PO Q8H PRN (Reason: Pain, Mild (Pain Scale 1-3)) 30 Days RF: 0 Mirena 20 mcg/24 hours (6 yrs) 52 mg intrauterine device 1 device intrauterine ONCE RF: 0 omeprazole 20 mg capsule,delayed release(DR/EC) 20 mg PO DAILY RF: 0 cholestyramine (with sugar) 4 gram powder 2 g PO BID RF: 0 PMFSH Past Medical History Attestation statement: The following information was validated with the patient. 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 History of renal cell cancer (~2014) Insomnia Intractable nausea and vomiting Lumbar degenerative disc disease Migraine Osteoarthritis of hips, bilateral Overweight (BMI 25.0-29.9) Surgical History History of arthroplasty (~01/2012) History of cryosurgery (~04/20/15) History of intestinal surgery History of removal of calculus of renal pelvis through percutaneous nephrostomy (~10/2015) Family History Family History Father Crohn disease Migraine Mother HTN (hypertension) Vertigo Cervical cancer Maternal Grandmother HTN (hypertension) Hyperlipidemia Diabetes mellitus Paternal Grandfather Diabetes mellitus Social History Social History Household Members: Children Housing: House Do you presently have visiting nurse or other home services: No Alcohol intake: current Alcohol intake frequency: holidays/special occasions only Patient Tobacco Use Status: Current someday Tobacco user Tobacco use type: Cigarette Cigarette Packs Per Day: 0.01 Cigarettes Per Day: 0.2 Years Smoked: 1 Advance Directives: No Advance Directives Information Provided: No Patient : No service: No Current occupational status: unemployed Gender identity: female
[2021-05-01 21:57] LABS: Alanine Aminotransferase 11 U/L (0-31); Albumin Level 3.6 g/dL (3.5-5.0); Alkaline Phosphatase 80 U/L (39-117); Anion Gap 15 (12-20); Aspartate Amino Transferase 18 U/L (5-31); Bilirubin Direct < 0.2 mg/dL (0.0-0.5); Bilirubin Total 0.2 mg/dL (0.0-1.0); Blood Urea Nitrogen 12 mg/dL (9-16); Calcium 9.4 mg/dL (8.4-10.2); Carbon Dioxide 26 mmol/L (22-29); Chloride 108 mmol/L (96-108); Creatinine Clr Calc Pharmacy 89.5; Estimated Glomerular Filt Rate > 60; Glucose Random 102 mg/dL (60-115); Lipase 30 U/L (8-78); Potassium 4.7 mmol/L (3.3-5.1); Sodium 144 mmol/L (135-145); Total Protein 6.8 g/dL (6.5-8.0)
[2021-05-01] MEDS: ondansetron HCL 4 MG/2 ML VIAL IVPUSH (21:58)
[2021-05-01] MEDS: 0.9 % Sodium Chloride 1,000 ML 999 ML IV (21:58)
[2021-05-01] MEDS: HYDROmorphone HCl 0.5 MG/0.5 ML SYRINGE IVPUSH (21:58)
[2021-05-01] MEDS: methylPREDNISolone Sod Succ 40 MG/ML VIAL IVPUSH (21:58)
[2021-05-01 22:00] VITALS: BP 145/74; PULSE 75; RESP 16; TEMP 37.1; O2SAT 98
[2021-05-01] MEDS: iohexoL 350 MG/ML 100 ML INFUS..BTL IV (22:22)
--- NOTE | 2021-05-01 23:12 | PC.NURSE ---
PATIENT REPORTING BURNING SENSATION AT IV SITE. ASKING FOR ANOTHER LINE TO BE PLACED. ORIGINAL IV LINE WORKING WELL, BUT A 20G PLACED IN THE LEFT AC. FLUIDS RUNNING
[2021-05-01 23:14] LABS: COVID-19 Test Negative (Negative)
[2021-05-02] MEDS: oxyCODONE HCl Immed Release 5 MG TABLET PO ×2 (00:56→08:53)
[2021-05-02] MEDS: Acetaminophen 325 MG TABLET 650 MG PO (00:56)
[2021-05-02] MEDS: Enoxaparin Sodium 40 MG/0.4 ML SYRINGE SUBCUT ×2 (00:57→22:22)
[2021-05-02 01:42] VITALS: BP 138/77; PULSE 61; RESP 18; TEMP 36.6; O2SAT 96
[2021-05-02] MEDS: LORazepam 1 MG TABLET PO ×3 (03:31→22:22)
[2021-05-02 03:43] VITALS: BP 131/60; PULSE 59; RESP 20; TEMP 37; O2SAT 96
--- NOTE | 2021-05-02 06:19 | PM.IMHP ---
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 Patient discharged from the hospital on Sunday 04/29 after being managed for Crohn's flare with steroids as well as dicyclomine, but returns today stating that her symptoms persisted and she has not had a lot of relief from abdominal pain. Patient reports that at home she was unable to maintain a low residue diet but tried soups and a with no relief of her abdominal pain. Describes the pain as 10/10, no nausea or vomiting, nonradiating, localized to the lower abdomen. Patient reports 1 episode of diarrhea today. she took tramadol that she had at home from her PCP with no relief, she called GI and had no answer from them and therefore decided to come to the hospital. Received Dilaudid in the ED which helped but patient reports that she needs more pain medication as she gets no relief from any p.o. meds. Patient was also discharged on prednisone as well as dicyclomine. On arrival to the ED No significant abnormal vitals Lab significant for WBC count of 11.9, otherwise unremarkable. 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 History of renal cell cancer (~2014) Insomnia Intractable nausea and vomiting Lumbar degenerative disc disease Migraine Osteoarthritis of hips, bilateral Overweight (BMI 25.0-29.9) Family History Father Crohn disease Migraine Mother HTN (hypertension) Vertigo Cervical cancer Maternal Grandmother HTN (hypertension) Hyperlipidemia Diabetes mellitus Paternal Grandfather Diabetes mellitus Surgical History History of arthroplasty (~01/2012) History of cryosurgery (~04/20/15) History of intestinal surgery History of removal of calculus of renal pelvis through percutaneous nephrostomy (~10/2015) Social History Household Members: None Housing: House Do you presently have visiting nurse or other home services: No Alcohol intake: current Alcohol intake frequency: holidays/special occasions only Patient Tobacco Use Status: Never used Tobacco Tobacco use type: Cigarette Cigarette Packs Per Day: 0.01 Cigarettes Per Day: 0.2 Years Smoked: 1 Smoked in Last 30 Days: No e-Cigarette/Vaping Use: Never Used Second Hand Smoke Exposure: No Use of substances other than those prescribed or required for medical reasons: No Currently Displaying Signs/Symptoms of Drug Intoxication Withdrawal: No Any prior treatment program specific to substance use: No Have you been hit, kicked, punched, or otherwise hurt by someone within the past year? If so, by whom?: No Do you feel safe in your current relationship?: No Current Relationship Is there a partner from a previous relationship who is making you feel unsafe now?: No Are you made to feel afraid or neglected: No Advance Directives: No Advance Directives Information Provided: No Advance Directives on File: No Do you have thoughts of harming others: None Do you have a plan to hurt others: No Plan Recently lost weight without trying: No Eating poorly because of decreased appetite: No Nutrition Risks: No Nutritional Risk Patient : No : No Poor oral hygiene: No service: No Current occupational status: unemployed Gender identity: female Meds Allergies Allergy/AdvReac Type Severity Reaction Status Date / Time meperidine [From Demerol] Allergy Severe SWELLING,RASH,THROAT Verified 03/13/21 00:00 CLOSES latex [LATEX] Allergy Mild RASH Verified 03/13/21 00:00 codeine [Codeine] AdvReac Intermediate NAUSEA/VOMITING, Verified 03/13/21 00:00 GI upset/vomiting Fish Containing Products AdvReac Unknown NAUSEA/VOMI Verified 03/13/21 00:00 [Fish Product Derivatives] TING trazodone AdvReac Intermediate worsening Uncoded 03/13/21 00:00 anxiety symptoms Active Medications: Current Medications Generic Name Dose Route Start Last Admin Trade Name Freq PRN Reason Stop Dose Admin Acetaminophen 650 mg 05/02/21 00:24 05/02/21 00:56 Acetaminophen 325 Mg Tablet PO 650 mg Q6H PRN Administration Pain, Mild (Pain Scale 1-3) Dicyclomine HCl 10 mg 05/02/21 07:30 Dicyclomine Hcl 10 Mg Capsule PO QIDACHS [facility] Docusate Sodium 100 mg 05/02/21 00:24 Docusate Sodium 100 Mg Capsule PO DAILY PRN Constipation Enoxaparin Sodium 40 mg 05/02/21 01:00 05/02/21 00:57 Enoxaparin Sodium 40 Mg/0.4 Ml Syringe SUBCUT 40 mg Q24H [facility]ENJAMIN Administration Escitalopram Oxalate 10 mg 05/02/21 09:00 Escitalopram Oxalate 10 Mg Tablet PO DAILY [facility] Lorazepam 1 mg 05/02/21 03:12 05/02/21 03:31 Lorazepam 1 Mg Tablet PO 1 mg TID PRN Administration anxiety/restlessness Mesalamine 1,000 mg 05/02/21 09:00 Mesalamine 250 Mg Capsule.Er PO TID [facility] Methylprednisolone Sodium Succinate 40 mg 05/02/21 10:00 Methylprednisolone Sod Succ 40 Mg/Ml Vial IVPUSH Q12H [facility] Omeprazole 20 mg 05/02/21 06:30 Omeprazole 20 Mg Capsule.Dr PO DAILY@0630 [facility] Ondansetron HCl 4 mg 05/02/21 00:24 Ondansetron Hcl 4 Mg/2 Ml Vial IVPUSH Q8H PRN Nausea and Vomiting Oxycodone HCl 5 mg 05/02/21 00:24 05/02/21 00:56 Oxycodone Hcl Immed Release 5 Mg Tablet PO 5 mg Q6H PRN Administration Pain, Severe (Pain Scale 7-10) Sodium Chloride 3 ml 05/02/21 08:00 0.9 % Sodium Chloride Flush 3 Ml Syringe IVFLUSH QSHIFT [facility] Sumatriptan Succinate 50 mg 05/02/21 00:24 Sumatriptan Succinate 50 Mg Tablet PO DAILY MRX1 PRN Migraine Headache Home Medications Medication Instructions Recorded Confirmed Last Taken Type levonorgestrel 20 mcg/24 hours (6 1 device INTRAUTERINE ONCE 10/04/20 05/01/21 Unknown History yrs) 52 mg intrauterine device cholestyramine (with sugar) 4 gram 2 g PO BID 12/05/20 05/01/21 Unknown History oral powder omeprazole 20 mg capsule,delayed 20 mg PO DAILY 12/05/20 05/01/21 Unknown History release Pentasa 1,000 mg PO TID 04/25/21 05/01/21 Unknown History ondansetron HCl 4 mg PO Q8H PRN 04/25/21 05/01/21 Unknown History sumatriptan succinate 0.5 tab PO DAILY MRX1 PRN 04/25/21 05/01/21 Unknown History Physical Exam Vital Signs and Narrative: Vital Signs: Last Vital Signs Temp 98.6 F 05/02/21 03:43 Pulse 59 05/02/21 03:43 Resp 20 05/02/21 03:43 BP 131/60 05/02/21 03:43 Pulse Ox 96 05/02/21 03:43 Body Mass Index 30.0 Const: General: cooperative and no acute distress Orientation/consciousness: patient oriented x3 Eyes: General: appearance normal, both eyes and all related structures Resp: Effort & Inspection: normal respiratory effort and able to speak in complete sentences Cardio: Rate: regular rate Rhythm: regular rhythm GI: Palpation (GI): Soft to palpation Auscultation: normal bowel sounds Skin: General skin exam: no rashes or lesions noted Neuro: General: patient oriented x3 Cognition (Neuro): normal cognition Extrem: General: Yes normal to inspection and Yes no pedal edema Results Labs CBC and Chem 7: 05/01/21 21:27 05/01/21 21:27 Labs: Laboratory Results - last 24 hr 05/01/21 05/01/21 05/01/21 21:27 21:27 22:47 MCV 92.1 MCH 30.7 MCHC 33.3 RDW 13.2 Plt Count 317 MPV 10.1 Immature Gran % (Auto) 0.8 H Neut % (Auto) 76.6 H Lymph % (Auto) 13.1 L [place] % (Auto) 9.2 Eos % (Auto) 0.1 Baso % (Auto) 0.2 Lymph # (Auto) 1.6 [place] # (Auto) 1.1 Eos # (Auto) 0.0 Baso # (Auto) 0.0 Abs Immat Gran (auto) 0.10 H Absolute Neuts (auto) 9.1 H Absolute Nucleated RBC 0.000 Nucleated RBC % (auto) 0.0 Anion Gap 15 Estim Creat Clear Calc 89.5 Estimated GFR > 60 Random Glucose 102 Calcium 9.4 D Total Bilirubin 0.2 Direct Bilirubin < 0.2 AST 18 ALT 11 Alkaline Phosphatase 80 D Total Protein 6.8 Albumin 3.6 Lipase 30 COVID-19 ([facility]) Negative COVID-19 Clin Com See Note Imaging Radiologist's Impressions: Impressions Abdomen/Pelvis CT 05/01/21 21:35 IMPRESSION: Diffuse mural thickening involving of foot of terminal ileum from the ileocecal valve consistent with Crohn's disease. There is mild pericolic fat stranding seen Diffuse sigmoid and rest of colon diverticulosis without diverticulitis. Mild constipation. Small umbilical hernia containing fat. Assessment and Plan (1) Crohn's disease: Status: Acute (2) Intractable abdominal pain: Status: Acute 45-year-old female with history of Crohn's disease who presents to the hospital with intractable abdominal pain. Of note patient was discharged from the hospital on 04/29 after being managed for ileitis/Crohn's flare and at that time was seen by GI id recommended discharge on prednisone and dicyclomine and follow-up outpatient to be able to start on biologics, but patient returns stating that her abdominal pain is non relenting and she is unable to manage at home. # intractable abdominal pain - secondary to Crohn's disease - will manage her with oxycodone - will switch prednisone to IV Solu-Medrol - continue dicyclomine q.i.d. a.c. HS - re-consult GI for any further recommendation/guidance # Crohn's flare - management as above with steroids and dicyclomine # anxiety and depression - continue home medications DVT prophylaxis: Lovenox
[2021-05-02 07:23] VITALS: BP 118/65; PULSE 63; RESP 18; TEMP 37.1; O2SAT 97
--- NOTE | 2021-05-02 08:31 | MHC.CM.PN ---
CM met with Patient at bedside. Patient lives in a house with her 2 children ages 13 & 15 years of age. Patient had no prior services nor did she required any DME; her goal is to return home/no services and CM has initiated and will follow for dc planning. Patient is presently filing for Disability.PCP is Dr. Jaswant Catalan. Patient's Mother/Zahraa is her HCP.
[2021-05-02] MEDS: Dicyclomine HCl 10 MG CAPSULE PO ×4 (08:53→20:24)
[2021-05-02] MEDS: Mesalamine 250 MG CAPSULE.ER 1000 MG PO ×3 (08:53→20:24)
[2021-05-02] MEDS: 0.9 % Sodium Chloride Flush 3 ML SYRINGE IVFLUSH ×2 (08:55→20:24)
[2021-05-02] MEDS: methylPREDNISolone Sod Succ 40 MG/ML VIAL IVPUSH (08:55)
[2021-05-02] MEDS: Escitalopram Oxalate 10 MG TABLET PO (08:55)
[2021-05-02] MEDS: Omeprazole 20 MG CAPSULE.DR PO (08:55)
[2021-05-02 11:36] VITALS: BP 133/72; PULSE 63; RESP 18; TEMP 36.4; O2SAT 96
--- NOTE | 2021-05-02 11:54 | HO.PM.IMPN ---
Subjective Subjective Date of Service: 05/02/21 Interval History: seen and examined this AM reports severe diffuse abdominal pain after eating breakfast endorses diarrhea with mucous and blood denies nausea and vomiting reports oral oxycodone is not working ROS General - no fevers or chills Cardiovascular - no chest pain Respiratory - no shortness of breath or cough Abdominal- +pain, blood/mucous in her stool Physical Exam Vital Signs: Vital Signs: Last Vital Signs Temp 97.5 F 05/02/21 11:36 Pulse 63 05/02/21 11:36 Resp 18 05/02/21 11:36 BP 133/72 05/02/21 11:36 Pulse Ox 96 05/02/21 11:36 Body Mass Index 30.0 Const: Other: General - appears to be in pain Cardiovascular - regular rate and rhythm, S1-S2 Lungs - normal respiratory effort, clear to auscultation bilaterally, no wheezing Abdomen - soft, but diffuse tender Extremities - no edema bilaterally Neuro - awake and alert, no focal deficits Objective Data Current Medications Generic Name Dose Route Start Last Admin Trade Name Demetriusq PRN Reason Stop Dose Admin Acetaminophen 650 mg 05/02/21 00:24 05/02/21 00:56 Acetaminophen 325 Mg Tablet PO 650 mg Q6H PRN Administration Pain, Mild (Pain Scale 1-3) Dicyclomine HCl 10 mg 05/02/21 07:30 05/02/21 08:53 Dicyclomine Hcl 10 Mg Capsule PO 10 mg QIDACHS BENJAMIN Administration Docusate Sodium 100 mg 05/02/21 00:24 Docusate Sodium 100 Mg Capsule PO DAILY PRN Constipation Enoxaparin Sodium 40 mg 05/02/21 01:00 05/02/21 00:57 Enoxaparin Sodium 40 Mg/0.4 Ml Syringe SUBCUT 40 mg Q24H BENJAMIN Administration Escitalopram Oxalate 10 mg 05/02/21 09:00 05/02/21 08:55 Escitalopram Oxalate 10 Mg Tablet PO 10 mg DAILY BENJAMIN Administration Lorazepam 1 mg 05/02/21 03:12 05/02/21 03:31 Lorazepam 1 Mg Tablet PO 1 mg TID PRN Administration anxiety/restlessness Mesalamine 1,000 mg 05/02/21 09:00 05/02/21 08:53 Mesalamine 250 Mg Capsule.Er PO 1,000 mg TID BENJAMIN Administration Methylprednisolone Sodium Succinate 40 mg 05/02/21 10:00 05/02/21 08:55 Methylprednisolone Sod Succ 40 Mg/Ml Vial IVPUSH 40 mg Q12H BENJAMIN Administration Omeprazole 20 mg 05/02/21 06:30 05/02/21 08:55 Omeprazole 20 Mg Capsule.Dr PO 20 mg DAILY@0630 BENJAMIN Administration Ondansetron HCl 4 mg 05/02/21 00:24 Ondansetron Hcl 4 Mg/2 Ml Vial IVPUSH Q8H PRN Nausea and Vomiting Oxycodone HCl 5 mg 05/02/21 00:24 05/02/21 08:53 Oxycodone Hcl Immed Release 5 Mg Tablet PO 5 mg Q6H PRN Administration Pain, Severe (Pain Scale 7-10) Sodium Chloride 3 ml 05/02/21 08:00 05/02/21 08:55 0.9 % Sodium Chloride Flush 3 Ml Syringe IVFLUSH 3 ml QSHIFT BENJAMIN Administration Sumatriptan Succinate 50 mg 05/02/21 00:24 Sumatriptan Succinate 50 Mg Tablet PO DAILY MRX1 PRN Migraine Headache Labs CBC & Chem 7: 05/01/21 21:27 05/01/21 21:27 Labs: Laboratory Results - last 24 hr 05/01/21 05/01/21 05/01/21 21:27 21:27 22:47 WBC 11.9 H RBC 4.43 Hgb 13.6 Hct 40.8 MCV 92.1 MCH 30.7 MCHC 33.3 RDW 13.2 Plt Count 317 MPV 10.1 Immature Gran % (Auto) 0.8 H Neut % (Auto) 76.6 H Lymph % (Auto) 13.1 L [place] % (Auto) 9.2 Eos % (Auto) 0.1 Baso % (Auto) 0.2 Lymph # (Auto) 1.6 [place] # (Auto) 1.1 Eos # (Auto) 0.0 Baso # (Auto) 0.0 Abs Immat Gran (auto) 0.10 H Absolute Neuts (auto) 9.1 H Absolute Nucleated RBC 0.000 Nucleated RBC % (auto) 0.0 Sodium 144 Potassium 4.7 Chloride 108 Carbon Dioxide 26 Anion Gap 15 BUN 12 Creatinine 0.75 Estim Creat Clear Calc 89.5 Estimated GFR > 60 Random Glucose 102 Calcium 9.4 D Total Bilirubin 0.2 Direct Bilirubin < 0.2 AST 18 ALT 11 Alkaline Phosphatase 80 D Total Protein 6.8 Albumin 3.6 Lipase 30 COVID-19 ([facility]) Negative COVID-19 Clin Com See Note Assessment and Plan (1) Crohn's disease: Status: Acute (2) Intractable abdominal pain: Status: Acute Assessment and Plan: 45-year-old female with history of Crohn's disease who presents to the hospital with intractable abdominal pain. Of note patient was discharged from the hospital on 04/29 after being managed for ileitis/Crohn's flare and at that time was seen by GI id recommended discharge on prednisone and dicyclomine and follow-up outpatient to be able to start on biologics, but patient returns stating that her abdominal pain is non relenting and she is unable to manage at home. 1. Intractable abdominal pain secondary to crohn's flare started back up on iv steroids - will swich to solu-cortef IV and oral dialudid (minmize IV as much as possible) GI to see the patient down-grade diet to full liquids with ensure 2. anxiety and depression -continue home medications Full Code DVT pptx, lovenox
[2021-05-02] MEDS: HYDROmorphone HCl 2 MG TABLET PO ×3 (12:42→22:21)
[2021-05-02] MEDS: Dextrose 5 % and Lactated Ring 1,000 ML 100 ML IVCONT ×2 (12:43→22:22)
[2021-05-02 15:08] VITALS: BP 115/62; PULSE 62; RESP 19; TEMP 36.9; O2SAT 96
[2021-05-02] MEDS: Hydrocortisone Sod Succ/PF 100 MG VIAL IVPUSH ×2 (16:38→22:22)
--- NOTE | 2021-05-02 17:40 | P.EN_ITS ---
Event Note Date of Service: 05/02/21 Event Note: GI Consult-Full note dictated Imp: Continued symptoms of lower abdominal pain and some diarrhea in relation to her Crohn's. Her CT does not look any worse than the preceding study. There is no SBO, abscess, fistulae, etc. Her abdominal exam is soft, normal BS, nond istended, and without mass. There is just mild lower abdominal tenderness, but without rebound nor guarding. Rec: Continue IV steroids, Pentasa, Dicyclomine, supportive care, PPI, clear liquids, and F/U labs. D/W patient in detail and she is comfortable with this plan. Thanks
[2021-05-02 19:42] VITALS: BP 140/79; PULSE 60; RESP 20; TEMP 36.9; O2SAT 96
[2021-05-03] VITALS (7 sets, daily range): BP systolic 103–124; BP diastolic 55–71; PULSE 51–83; RESP 18–20; TEMP 36.4–37.4; O2SAT 94–98
[2021-05-03] MEDS: Omeprazole 20 MG CAPSULE.DR PO (05:52)
[2021-05-03] MEDS: HYDROmorphone HCl 2 MG TABLET PO (05:52)
[2021-05-03 07:03] LABS: MANUAL DIFF FLAG NO
[2021-05-03 07:10] LABS: Hematocrit 36.9 % (37-47); Hemoglobin 11.9 g/dl (12.0-16.0); Imm Gran Abs Auto 0.08 X10*3/uL (0.00-0.03); Imm Gran Pct Auto 0.8 % (0.0-0.4); Lymphocytes Absolute Auto 1.1 X10*3/uL (1.2-4.9); Lymphocytes Percent Auto 10.5 % (20-40); Mean Corpuscular HGB Conc 32.2 g/dl (31.0-35.0); Mean Corpuscular Volume 92.9 fL (80-98); Mean Platelet Volume 11.1 fL (9.4-12.3); Monocytes Absolute Auto 0.7 X10*3/uL (0.1-1.2); Monocytes Percent Auto 6.6 % (2-11); Neutrophils Absolute Auto 8.3 X10*3/uL (2.0-8.3); Neutrophils Percent Auto 82.1 % (45-73); Platelet Count 291 X10*3/uL (160-400); Red Blood Count 3.97 X10*6/uL (4.20-5.50); Red Cell Distribution Width 13.2 % (11.0-16.0); White Blood Count 10.1 X10*3/uL (4.8-10.8)
[2021-05-03 07:33] LABS: Anion Gap 11 (12-20); Blood Urea Nitrogen 7 mg/dL (9-16); Carbon Dioxide 28 mmol/L (22-29); Chloride 105 mmol/L (96-108); Creatinine Clr Calc Pharmacy 103.3; Estimated Glomerular Filt Rate > 60; Glucose Random 114 mg/dL (60-115); Sodium 140 mmol/L (135-145)
[2021-05-03 07:36] LABS: C Reactive Protein 0.19 mg/dL (< or = 0.50)
[2021-05-03 07:55] LABS: Erythrocyte Sedimentation Rate 9 MM/HR (0-20)
[2021-05-03] MEDS: Dextrose 5 % and Lactated Ring 1,000 ML 100 ML IVCONT ×2 (08:12→20:05)
[2021-05-03] MEDS: Mesalamine 250 MG CAPSULE.ER 1000 MG PO ×3 (08:13→20:01)
[2021-05-03] MEDS: Dicyclomine HCl 10 MG CAPSULE PO ×3 (08:13→15:23)
[2021-05-03] MEDS: Hydrocortisone Sod Succ/PF 100 MG VIAL IVPUSH ×3 (08:13→23:31)
[2021-05-03] MEDS: Escitalopram Oxalate 10 MG TABLET PO (08:13)
[2021-05-03] MEDS: HYDROmorphone HCl 2 MG TABLET 1 MG PO ×5 (09:59→22:45)
[2021-05-03] MEDS: ondansetron HCL 4 MG/2 ML VIAL IVPUSH (10:12)
--- NOTE | 2021-05-03 11:23 | MHC.CM.PN ---
Per ROUNDS discussion, Patient is not yet medically cleared for dc (IV Solu Cortginny). Home is the goal for dc and CM will follow for possible need to adjust the dc plan.
[2021-05-03] MEDS: LORazepam 1 MG TABLET PO ×2 (15:22→22:48)
--- NOTE | 2021-05-03 16:40 | HO.PM.IMPN ---
Subjective Subjective Date of Service: 05/03/21 Interval History: Patient complaining severe lower abdominal pain, although stools are more formed this a.m., no blood noted, no nausea no vomiting, no fever chills no other acute issues overnight. 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 Neck supple no JVD. CVS regular rate rhythm, Respiratory lungs clear to auscultation, no respiratory distress, no wheeze, no rhonchi. Gastrointestinal abdomen soft, mild lower abdominal tenderness with palpation, bowel sounds audible, no guarding , no rigidity. Extremities no edema. Neuro nonfocal Skin no rash Objective Data Current Medications Generic Name Dose Route Start Last Admin Trade Name Freq PRN Reason Stop Dose Admin Acetaminophen 650 mg 05/02/21 00:24 05/02/21 00:56 Acetaminophen 325 Mg Tablet PO 650 mg Q6H PRN Administration Pain, Mild (Pain Scale 1-3) Dicyclomine HCl 10 mg 05/02/21 07:30 05/03/21 15:23 Dicyclomine Hcl 10 Mg Capsule PO 10 mg QIDACHS BENJAMIN Administration Docusate Sodium 100 mg 05/02/21 00:24 Docusate Sodium 100 Mg Capsule PO DAILY PRN Constipation Enoxaparin Sodium 40 mg 05/02/21 01:00 05/02/21 22:22 Enoxaparin Sodium 40 Mg/0.4 Ml Syringe SUBCUT 40 mg Q24H BENJAMIN Administration Escitalopram Oxalate 10 mg 05/02/21 09:00 05/03/21 08:13 Escitalopram Oxalate 10 Mg Tablet PO 10 mg DAILY BENJAMIN Administration Hydrocortisone Sodium Succinate 100 mg 05/02/21 16:00 05/03/21 15:23 Hydrocortisone Sod Succ/Pf 100 Mg Vial IVPUSH 100 mg Q8H BENJAMIN Administration Hydromorphone HCl 1 mg 05/03/21 12:33 05/03/21 16:29 Hydromorphone Hcl 2 Mg Tablet PO 1 mg Q3H PRN Administration Pain, Severe (Pain Scale 7-10) Dextrose/Lactated Ringer's 1,000 mls @ 100 mls/hr 05/02/21 12:30 05/03/21 16:34 D5lr IVCONT Not Given .Q10H BENJAMIN Lorazepam 1 mg 05/02/21 03:12 05/03/21 15:22 Lorazepam 1 Mg Tablet PO 1 mg TID PRN Administration anxiety/restlessness Mesalamine 1,000 mg 05/02/21 09:00 05/03/21 15:22 Mesalamine 250 Mg Capsule.Er PO 1,000 mg TID BENJAMIN Administration Omeprazole 20 mg 05/02/21 06:30 05/03/21 05:52 Omeprazole 20 Mg Capsule.Dr PO 20 mg DAILY@0630 BENJAMIN Administration Ondansetron HCl 4 mg 05/02/21 00:24 05/03/21 10:12 Ondansetron Hcl 4 Mg/2 Ml Vial IVPUSH 4 mg Q8H PRN Administration Nausea and Vomiting Sodium Chloride 3 ml 05/02/21 08:00 05/03/21 15:24 0.9 % Sodium Chloride Flush 3 Ml Syringe IVFLUSH Not Given QSHIFT BENJAMIN Sumatriptan Succinate 50 mg 05/02/21 00:24 Sumatriptan Succinate 50 Mg Tablet PO DAILY MRX1 PRN Migraine Headache Labs CBC & Chem 7: 05/03/21 05:48 05/03/21 05:48 Labs: Laboratory Results - last 24 hr 05/03/21 05/03/21 05/03/21 05:48 05:48 05:48 WBC 10.1 RBC 3.97 L Hgb 11.9 L Hct 36.9 L MCV 92.9 MCH 30.0 MCHC 32.2 RDW 13.2 Plt Count 291 MPV 11.1 Immature Gran % (Auto) 0.8 H Neut % (Auto) 82.1 H Lymph % (Auto) 10.5 L [place] % (Auto) 6.6 Eos % (Auto) 0.0 Baso % (Auto) 0.0 Lymph # (Auto) 1.1 L [place] # (Auto) 0.7 Eos # (Auto) 0.0 Baso # (Auto) 0.0 Abs Immat Gran (auto) 0.08 H Absolute Neuts (auto) 8.3 Absolute Nucleated RBC 0.000 Nucleated RBC % (auto) 0.0 ESR 9 Sodium 140 Potassium 4.0 Chloride 105 Carbon Dioxide 28 Anion Gap 11 L BUN 7 L Creatinine 0.65 Estim Creat Clear Calc 103.3 Estimated GFR > 60 Random Glucose 114 Calcium 9.0 C-Reactive Protein 05/03/21 05:49 WBC RBC Hgb Hct MCV MCH MCHC RDW Plt Count MPV Immature Gran % (Auto) Neut % (Auto) Lymph % (Auto) [place] % (Auto) Eos % (Auto) Baso % (Auto) Lymph # (Auto) [place] # (Auto) Eos # (Auto) Baso # (Auto) Abs Immat Gran (auto) Absolute Neuts (auto) Absolute Nucleated RBC Nucleated RBC % (auto) ESR Sodium Potassium Chloride Carbon Dioxide Anion Gap BUN Creatinine Estim Creat Clear Calc Estimated GFR Random Glucose Calcium C-Reactive Protein 0.19 Quality Stroke Does the patient have a stroke diagnosis?: No VTE Prior VTE?: No VTE Risk Level:: Medical - moderate - high VTE Device Contraindication: N/A - Device Ordered VTE Drug Contraindication: N/A - Med Ordered Assessment and Plan (1) Intractable abdominal pain: Status: Acute (2) Crohn's disease: Status: Acute (3) Depression: Status: Acute Assessment and Plan: 45-year-old female with history of Crohn's disease who presents to the hospital with intractable abdominal pain. Of note patient was discharged from the hospital on 04/29 after being managed for ileitis/Crohn's flare and at that time was seen by GI id recommended discharge on prednisone and dicyclomine and follow-up outpatient to be able to start on biologics, but patient returns stating that her abdominal pain is non relenting and she is unable to manage at home. 1. Intractable abdominal pain secondary to crohn's flare Persistent abdominal pain but seems to be improving continue iv steroids, Pentasa, omeprazole, Bentyl case discussed with Dr. Alexis he agrees with above treatment Continue Dilaudid for pain, reassured patient Continue full liquids as tolerated, stable CBC and electrolytes 2. anxiety and depression continue home medications, no worsening depression Full Code DVT pptx, lovenox
--- NOTE | 2021-05-03 18:54 | PM.GIPN ---
Subjective Subjective Date of Service: 05/03/21 Interval History: Patient seen at Noon today. She reports feeling somewhat better than on admission with less discomfort. No N/V. One formed soft stool without bleeding. Tolerating liquid diet. Afebrile. Critical Care Time (minutes): 0 Physical Exam Vital Signs: Vital Signs: Last Vital Signs Temp 98.2 F 05/03/21 15:12 Pulse 62 05/03/21 15:12 Resp 18 05/03/21 15:12 BP 117/57 L 05/03/21 15:12 Pulse Ox 94 05/03/21 15:12 Body Mass Index 30.0 Const: General: cooperative, healthy appearing, comfortable and no acute distress HENMT: Mouth: moist mucous membranes Eyes: Sclerae: sclerae normal GI: Other: Very soft, normal BS, Nondistended, Minimal lower abdominal tenderness, no mass/rebound/guarding Extrem: Other: No edema, no erythema nodusum Objective Data Labs CBC & Chem 7: 05/03/21 05:48 05/03/21 05:48 Labs: Laboratory Results - last 24 hr 05/03/21 05/03/21 05/03/21 05:48 05:48 05:48 WBC 10.1 RBC 3.97 L Hgb 11.9 L Hct 36.9 L MCV 92.9 MCH 30.0 MCHC 32.2 RDW 13.2 Plt Count 291 MPV 11.1 Immature Gran % (Auto) 0.8 H Neut % (Auto) 82.1 H Lymph % (Auto) 10.5 L [place] % (Auto) 6.6 Eos % (Auto) 0.0 Baso % (Auto) 0.0 Lymph # (Auto) 1.1 L [place] # (Auto) 0.7 Eos # (Auto) 0.0 Baso # (Auto) 0.0 Abs Immat Gran (auto) 0.08 H Absolute Neuts (auto) 8.3 Absolute Nucleated RBC 0.000 Nucleated RBC % (auto) 0.0 ESR 9 Sodium 140 Potassium 4.0 Chloride 105 Carbon Dioxide 28 Anion Gap 11 L BUN 7 L Creatinine 0.65 Estim Creat Clear Calc 103.3 Estimated GFR > 60 Random Glucose 114 Calcium 9.0 C-Reactive Protein 05/03/21 05:49 WBC RBC Hgb Hct MCV MCH MCHC RDW Plt Count MPV Immature Gran % (Auto) Neut % (Auto) Lymph % (Auto) [place] % (Auto) Eos % (Auto) Baso % (Auto) Lymph # (Auto) [place] # (Auto) Eos # (Auto) Baso # (Auto) Abs Immat Gran (auto) Absolute Neuts (auto) Absolute Nucleated RBC Nucleated RBC % (auto) ESR Sodium Potassium Chloride Carbon Dioxide Anion Gap BUN Creatinine Estim Creat Clear Calc Estimated GFR Random Glucose Calcium C-Reactive Protein 0.19 Progress Note: A&P Fall Risk Details Current Medications: Current Medications Generic Name Dose Route Start Last Admin Trade Name Freq PRN Reason Stop Dose Admin Acetaminophen 650 mg 05/02/21 00:24 05/02/21 00:56 Acetaminophen 325 Mg Tablet PO 650 mg Q6H PRN Administration Pain, Mild (Pain Scale 1-3) Dicyclomine HCl 10 mg 05/02/21 07:30 05/03/21 15:23 Dicyclomine Hcl 10 Mg Capsule PO 10 mg QIDACHS BENJAMIN Administration Docusate Sodium 100 mg 05/02/21 00:24 Docusate Sodium 100 Mg Capsule PO DAILY PRN Constipation Enoxaparin Sodium 40 mg 05/02/21 01:00 05/02/21 22:22 Enoxaparin Sodium 40 Mg/0.4 Ml Syringe SUBCUT 40 mg Q24H BENJAMIN Administration Escitalopram Oxalate 10 mg 05/02/21 09:00 05/03/21 08:13 Escitalopram Oxalate 10 Mg Tablet PO 10 mg DAILY BENJAMIN Administration Hydrocortisone Sodium Succinate 100 mg 05/02/21 16:00 05/03/21 15:23 Hydrocortisone Sod Succ/Pf 100 Mg Vial IVPUSH 100 mg Q8H BENJAMIN Administration Hydromorphone HCl 1 mg 05/03/21 12:33 05/03/21 16:29 Hydromorphone Hcl 2 Mg Tablet PO 1 mg Q3H PRN Administration Pain, Severe (Pain Scale 7-10) Dextrose/Lactated Ringer's 1,000 mls @ 100 mls/hr 05/02/21 12:30 05/03/21 16:34 D5lr IVCONT Not Given .Q10H BENJAMIN Lorazepam 1 mg 05/02/21 03:12 05/03/21 15:22 Lorazepam 1 Mg Tablet PO 1 mg TID PRN Administration anxiety/restlessness Mesalamine 1,000 mg 05/02/21 09:00 05/03/21 15:22 Mesalamine 250 Mg Capsule.Er PO 1,000 mg TID BENJAMIN Administration Omeprazole 20 mg 05/02/21 06:30 05/03/21 05:52 Omeprazole 20 Mg Capsule.Dr PO 20 mg DAILY@0630 BENJAMIN Administration Ondansetron HCl 4 mg 05/02/21 00:24 05/03/21 10:12 Ondansetron Hcl 4 Mg/2 Ml Vial IVPUSH 4 mg Q8H PRN Administration Nausea and Vomiting Sodium Chloride 3 ml 05/02/21 08:00 05/03/21 15:24 0.9 % Sodium Chloride Flush 3 Ml Syringe IVFLUSH Not Given QSHIFT [facility] Sumatriptan Succinate 50 mg 05/02/21 00:24 Sumatriptan Succinate 50 Mg Tablet PO DAILY MRX1 PRN Migraine Headache Time Spent With Patient Time: Total time spent is greater than 50% in coordination of care (as documented) at patient's floor/unit and/or counseling patient: Time with patient: 15 - 24 minutes Procedures Date of Service Date of Service: 05/03/21 Quality Stroke Does the patient have a stroke diagnosis?: No VTE Prior VTE?: No VTE Risk Level:: Medical - moderate - high VTE Device Contraindication: N/A - Device Ordered VTE Drug Contraindication: N/A - Med Ordered
[2021-05-03] MEDS: Dicyclomine HCl 10 MG CAPSULE 20 MG PO (20:01)
[2021-05-03] MEDS: SUMAtriptan succinate 50 MG TABLET PO (20:11)
[2021-05-03] MEDS: Enoxaparin Sodium 40 MG/0.4 ML SYRINGE SUBCUT (23:31)
[2021-05-04] MEDS: HYDROmorphone HCl 2 MG TABLET 1 MG PO ×6 (03:57→22:53)
[2021-05-04 03:58] VITALS: BP 127/62; PULSE 49; RESP 16; TEMP 36.4; O2SAT 97
[2021-05-04] MEDS: Omeprazole 20 MG CAPSULE.DR PO (05:45)
[2021-05-04] MEDS: Dextrose 5 % and Lactated Ring 1,000 ML 100 ML IVCONT (05:45)
[2021-05-04 06:59] LABS: MANUAL DIFF FLAG NO
[2021-05-04 07:06] LABS: Basophils Percent Auto 0.1 % (0-2); Hematocrit 38.2 % (37-47); Hemoglobin 12.4 g/dl (12.0-16.0); Imm Gran Abs Auto 0.09 X10*3/uL (0.00-0.03); Lymphocytes Absolute Auto 0.8 X10*3/uL (1.2-4.9); Lymphocytes Percent Auto 8.7 % (20-40); Mean Corpuscular HGB Conc 32.5 g/dl (31.0-35.0); Mean Corpuscular Hemoglobin 30.2 pg (27.0-33.0); Mean Corpuscular Volume 93.2 fL (80-98); Mean Platelet Volume 11.1 fL (9.4-12.3); Monocytes Absolute Auto 0.5 X10*3/uL (0.1-1.2); Monocytes Percent Auto 5.2 % (2-11); Neutrophils Absolute Auto 7.7 X10*3/uL (2.0-8.3); Platelet Count 285 X10*3/uL (160-400); Red Cell Distribution Width 13.4 % (11.0-16.0); White Blood Count 9.1 X10*3/uL (4.8-10.8)
[2021-05-04 07:30] VITALS: BP 130/62; PULSE 50; RESP 16; TEMP 36.5; O2SAT 97
[2021-05-04 07:31] LABS: Anion Gap 12 (12-20); Blood Urea Nitrogen 6 mg/dL (9-16); Calcium 8.9 mg/dL (8.4-10.2); Carbon Dioxide 27 mmol/L (22-29); Chloride 106 mmol/L (96-108); Creatinine Clr Calc Pharmacy 100.1; Estimated Glomerular Filt Rate > 60; Glucose Fasting 118 mg/dL (60-99); Potassium 4.3 mmol/L (3.3-5.1); Sodium 141 mmol/L (135-145)
[2021-05-04 07:34] LABS: Iron 71 mcg/dL (30-160); Percent Iron Saturation 27 % (15-50); Total Iron Binding Capacity 264 mcg/dL (228-428); Unsaturated Iron Binding 193 ug/dL
[2021-05-04 07:54] LABS: Ferritin 26 ng/mL (10-250)
[2021-05-04 08:07] LABS: Folate 6.7 ng/mL (> or = 4.0); Vitamin B12 < 146 pg/mL (200-900)
[2021-05-04] MEDS: Hydrocortisone Sod Succ/PF 100 MG VIAL IVPUSH (08:20)
[2021-05-04] MEDS: Mesalamine 250 MG CAPSULE.ER 1000 MG PO ×3 (08:20→20:24)
[2021-05-04] MEDS: Dicyclomine HCl 10 MG CAPSULE 20 MG PO ×4 (08:20→20:24)
[2021-05-04] MEDS: Escitalopram Oxalate 10 MG TABLET PO (08:20)
[2021-05-04] MEDS: 0.9 % Sodium Chloride Flush 3 ML SYRINGE IVFLUSH ×3 (08:21→20:24)
[2021-05-04] MEDS: Cyanocobalamin (Vitamin B-12) 1,000 MCG/ML VIAL 1000 MCG IM (08:32)
--- NOTE | 2021-05-04 10:43 | MHC.CLN ---
PT REQUESTING ENSURE ENLIVE PT DISLIKES THE TASTE OF ENSURE CLEAR SUPPLEMENT ORDER CHANGED
[2021-05-04 11:08] VITALS: BP 125/69; PULSE 49; RESP 16; TEMP 36.4; O2SAT 96
--- NOTE | 2021-05-04 12:04 | HO.PM.IMPN ---
Subjective Subjective Date of Service: 05/04/21 Interval History: Complaining of persistent lower abdominal cramping pain worse after eating, but requesting to upgrade diet to solid, no fevers no chills no bloody stools, no nausea, no vomiting. 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 Neck supple no JVD. CVS regular rate rhythm, Respiratory lungs clear to auscultation, no respiratory distress, no wheeze, no rhonchi. Gastrointestinal abdomen soft, mild lower abdominal tenderness with palpation, no distension, bowel sounds audible, no guarding , no rigidity. Extremities no edema. Neuro nonfocal Skin no rash Objective Data Current Medications Generic Name Dose Route Start Last Admin Trade Name Freq PRN Reason Stop Dose Admin Acetaminophen 650 mg 05/02/21 00:24 05/02/21 00:56 Acetaminophen 325 Mg Tablet PO 650 mg Q6H PRN Administration Pain, Mild (Pain Scale 1-3) Cyanocobalamin 1,000 mcg 05/04/21 09:00 05/04/21 08:32 Cyanocobalamin (Vitamin B-12) 1,000 Mcg/Ml Vial IM 05/25/21 09:01 1,000 mcg Th BENJAMIN Administration Dicyclomine HCl 20 mg 05/03/21 21:00 05/04/21 08:20 Dicyclomine Hcl 10 Mg Capsule PO 20 mg QIDACHS BENJAMIN Administration Docusate Sodium 100 mg 05/02/21 00:24 Docusate Sodium 100 Mg Capsule PO DAILY PRN Constipation Enoxaparin Sodium 40 mg 05/02/21 01:00 05/03/21 23:31 Enoxaparin Sodium 40 Mg/0.4 Ml Syringe SUBCUT 40 mg Q24H BENJAMIN Administration Escitalopram Oxalate 10 mg 05/02/21 09:00 05/04/21 08:20 Escitalopram Oxalate 10 Mg Tablet PO 10 mg DAILY BENJAMIN Administration Hydrocortisone Sodium Succinate 100 mg 05/02/21 16:00 05/04/21 08:20 Hydrocortisone Sod Succ/Pf 100 Mg Vial IVPUSH 100 mg Q8H BENJAMIN Administration Hydromorphone HCl 1 mg 05/03/21 12:33 05/04/21 10:33 Hydromorphone Hcl 2 Mg Tablet PO 1 mg Q3H PRN Administration Pain, Severe (Pain Scale 7-10) Lorazepam 1 mg 05/02/21 03:12 05/03/21 22:48 Lorazepam 1 Mg Tablet PO 1 mg TID PRN Administration anxiety/restlessness Mesalamine 1,000 mg 05/02/21 09:00 05/04/21 08:20 Mesalamine 250 Mg Capsule.Er PO 1,000 mg TID BENJAMIN Administration Omeprazole 20 mg 05/02/21 06:30 05/04/21 05:45 Omeprazole 20 Mg Capsule.Dr PO 20 mg DAILY@0630 BENJAMIN Administration Ondansetron HCl 4 mg 05/02/21 00:24 05/03/21 10:12 Ondansetron Hcl 4 Mg/2 Ml Vial IVPUSH 4 mg Q8H PRN Administration Nausea and Vomiting Sodium Chloride 3 ml 05/02/21 08:00 05/04/21 08:21 0.9 % Sodium Chloride Flush 3 Ml Syringe IVFLUSH 3 ml QSHIFT [facility] Administration Sumatriptan Succinate 50 mg 05/02/21 00:24 05/03/21 20:11 Sumatriptan Succinate 50 Mg Tablet PO 50 mg DAILY MRX1 PRN Administration Migraine Headache Labs CBC & Chem 7: 05/04/21 05:55 05/04/21 05:55 Labs: Laboratory Results - last 24 hr 05/04/21 05/04/21 05/04/21 05:55 05:55 05:55 WBC 9.1 RBC 4.10 L Hgb 12.4 Hct 38.2 MCV 93.2 MCH 30.2 MCHC 32.5 RDW 13.4 Plt Count 285 MPV 11.1 Immature Gran % (Auto) 1.0 H Neut % (Auto) 85.0 H Lymph % (Auto) 8.7 L [place] % (Auto) 5.2 Eos % (Auto) 0.0 Baso % (Auto) 0.1 Lymph # (Auto) 0.8 L [place] # (Auto) 0.5 Eos # (Auto) 0.0 Baso # (Auto) 0.0 Abs Immat Gran (auto) 0.09 H Absolute Neuts (auto) 7.7 Absolute Nucleated RBC 0.000 Nucleated RBC % (auto) 0.0 Sodium Potassium Chloride Carbon Dioxide Anion Gap BUN Creatinine Estim Creat Clear Calc Estimated GFR Fasting Glucose Calcium Iron 71 TIBC 264 % Saturation 27 Unsat Iron Binding 193 Ferritin 26 Vitamin B12 < 146 L Folate 6.7 05/04/21 05:55 WBC RBC Hgb Hct MCV MCH MCHC RDW Plt Count MPV Immature Gran % (Auto) Neut % (Auto) Lymph % (Auto) [place] % (Auto) Eos % (Auto) Baso % (Auto) Lymph # (Auto) [place] # (Auto) Eos # (Auto) Baso # (Auto) Abs Immat Gran (auto) Absolute Neuts (auto) Absolute Nucleated RBC Nucleated RBC % (auto) Sodium 141 Potassium 4.3 Chloride 106 Carbon Dioxide 27 Anion Gap 12 BUN 6 L Creatinine 0.67 Estim Creat Clear Calc 100.1 Estimated GFR > 60 Fasting Glucose 118 H D Calcium 8.9 Iron TIBC % Saturation Unsat Iron Binding Ferritin Vitamin B12 Folate Quality Stroke Does the patient have a stroke diagnosis?: No VTE Prior VTE?: No VTE Risk Level:: Medical - moderate - high VTE Device Contraindication: N/A - Device Ordered VTE Drug Contraindication: N/A - Med Ordered Assessment and Plan (1) Intractable abdominal pain: Status: Acute (2) B12 deficiency: Status: Acute (3) Crohn's disease: Status: Acute (4) Depression: Status: Acute Assessment and Plan: 45-year-old female with history of Crohn's disease who presents to the hospital with intractable abdominal pain. Of note patient was discharged from the hospital on 04/29 after being managed for ileitis/Crohn's flare and at that time was seen by GI id recommended discharge on prednisone and dicyclomine and follow-up outpatient to be able to start on biologics, but patient returns stating that her abdominal pain is non relenting and she is unable to manage at home. 1. Intractable abdominal pain secondary to crohn's flare Persistent abdominal pain but seems to be improving, normal abdominal exam, will advance diet to low residue Will DC IV fluid, transition iv steroids to by mouth, continue Pentasa, omeprazole, and Bentyl Continue Dilaudid for pain, will wean dose, reassured patient, recommend out of bed and ambulation stable CBC and electrolytes 2. anxiety and depression continue home medications, no worsening depression 3. Vitamin B12 deficiency likely due to poor absorption with Crohn ileitis started patient on vitamin B12 shots, recommend to follow saloni latif as outpatient with Full Code DVT pptx, lovenox
[2021-05-04] MEDS: SUMAtriptan succinate 50 MG TABLET PO (14:41)
[2021-05-04] MEDS: ondansetron HCL 4 MG/2 ML VIAL IVPUSH (14:42)
[2021-05-04 16:00] VITALS: BP 124/61; PULSE 54; RESP 16; TEMP 36.7; O2SAT 96
--- NOTE | 2021-05-04 18:03 | P.PNGI_ITS ---
Subjective Subjective Date of Service: 05/04/21 Interval History: Feeling better, tolerating food, still with some discomfort in RLQ but much more tolerable. No diarrhea today. She received her B12 shot today Critical Care Time (minutes): 0 Physical Exam Vital Signs: Vital Signs: Last Vital Signs Temp 98.0 F 05/04/21 16:00 Pulse 54 05/04/21 16:00 Resp 16 05/04/21 16:00 BP 124/61 05/04/21 16:00 Pulse Ox 96 05/04/21 16:00 Body Mass Index 30.0 Const: General: cooperative, healthy appearing, comfortable and no acute distress GI: Other: +BS, soft, nondistended, mild tenderness in the RLQ, no mass/rebound/guarding Objective Data Labs CBC & Chem 7: 05/04/21 05:55 05/04/21 05:55 Labs: Laboratory Results - last 24 hr 05/04/21 05/04/21 05/04/21 05:55 05:55 05:55 WBC 9.1 RBC 4.10 L Hgb 12.4 Hct 38.2 MCV 93.2 MCH 30.2 MCHC 32.5 RDW 13.4 Plt Count 285 MPV 11.1 Immature Gran % (Auto) 1.0 H Neut % (Auto) 85.0 H Lymph % (Auto) 8.7 L [place] % (Auto) 5.2 Eos % (Auto) 0.0 Baso % (Auto) 0.1 Lymph # (Auto) 0.8 L [place] # (Auto) 0.5 Eos # (Auto) 0.0 Baso # (Auto) 0.0 Abs Immat Gran (auto) 0.09 H Absolute Neuts (auto) 7.7 Absolute Nucleated RBC 0.000 Nucleated RBC % (auto) 0.0 Sodium Potassium Chloride Carbon Dioxide Anion Gap BUN Creatinine Estim Creat Clear Calc Estimated GFR Fasting Glucose Calcium Iron 71 TIBC 264 % Saturation 27 Unsat Iron Binding 193 Ferritin 26 Vitamin B12 < 146 L Folate 6.7 05/04/21 05:55 WBC RBC Hgb Hct MCV MCH MCHC RDW Plt Count MPV Immature Gran % (Auto) Neut % (Auto) Lymph % (Auto) [place] % (Auto) Eos % (Auto) Baso % (Auto) Lymph # (Auto) [place] # (Auto) Eos # (Auto) Baso # (Auto) Abs Immat Gran (auto) Absolute Neuts (auto) Absolute Nucleated RBC Nucleated RBC % (auto) Sodium 141 Potassium 4.3 Chloride 106 Carbon Dioxide 27 Anion Gap 12 BUN 6 L Creatinine 0.67 Estim Creat Clear Calc 100.1 Estimated GFR > 60 Fasting Glucose 118 H D Calcium 8.9 Iron TIBC % Saturation Unsat Iron Binding Ferritin Vitamin B12 Folate Progress Note: A&P Fall Risk Details Current Medications: Current Medications Generic Name Dose Route Start Last Admin Trade Name Freq PRN Reason Stop Dose Admin Acetaminophen 650 mg 05/02/21 00:24 05/02/21 00:56 Acetaminophen 325 Mg Tablet PO 650 mg Q6H PRN Administration Pain, Mild (Pain Scale 1-3) Cyanocobalamin 1,000 mcg 05/04/21 09:00 05/04/21 08:32 Cyanocobalamin (Vitamin B-12) 1,000 Mcg/Ml Vial IM 05/25/21 09:01 1,000 mcg Th BENJAMIN Administration Dicyclomine HCl 20 mg 05/03/21 21:00 05/04/21 16:14 Dicyclomine Hcl 10 Mg Capsule PO 20 mg QIDACHS BENJAMIN Administration Docusate Sodium 100 mg 05/02/21 00:24 Docusate Sodium 100 Mg Capsule PO DAILY PRN Constipation Enoxaparin Sodium 40 mg 05/02/21 01:00 05/03/21 23:31 Enoxaparin Sodium 40 Mg/0.4 Ml Syringe SUBCUT 40 mg Q24H BENJAMIN Administration Escitalopram Oxalate 10 mg 05/02/21 09:00 05/04/21 08:20 Escitalopram Oxalate 10 Mg Tablet PO 10 mg DAILY BENJAMIN Administration Hydromorphone HCl 1 mg 05/04/21 12:18 05/04/21 14:41 Hydromorphone Hcl 2 Mg Tablet PO 1 mg Q4H PRN Administration Pain, Severe (Pain Scale 7-10) Lorazepam 1 mg 05/02/21 03:12 05/03/21 22:48 Lorazepam 1 Mg Tablet PO 1 mg TID PRN Administration anxiety/restlessness Mesalamine 1,000 mg 05/02/21 09:00 05/04/21 16:14 Mesalamine 250 Mg Capsule.Er PO 1,000 mg TID BENJAMIN Administration Omeprazole 20 mg 05/02/21 06:30 05/04/21 05:45 Omeprazole 20 Mg Capsule. PO 20 mg DAILY@0630 BENJAMIN Administration Ondansetron HCl 4 mg 05/02/21 00:24 05/04/21 14:42 Ondansetron Hcl 4 Mg/2 Ml Vial IVPUSH 4 mg Q8H PRN Administration Nausea and Vomiting Prednisone 40 mg 05/05/21 09:00 Prednisone 20 Mg Tablet PO DAILY BENJAMIN Sodium Chloride 3 ml 05/02/21 08:00 05/04/21 16:14 0.9 % Sodium Chloride Flush 3 Ml Syringe IVFLUSH 3 ml QSHIFT BENJAMIN Administration Sumatriptan Succinate 50 mg 05/02/21 00:24 05/04/21 14:41 Sumatriptan Succinate 50 Mg Tablet PO 50 mg DAILY MRX1 PRN Administration Migraine Headache Time Spent With Patient Time: Total time spent is greater than 50% in coordination of care (as documented) at patient's floor/unit and/or counseling patient: Time with patient: 15 - 24 minutes Procedures Date of Service Date of Service: 05/04/21 Quality Stroke Does the patient have a stroke diagnosis?: No VTE Prior VTE?: No VTE Risk Level:: Medical - moderate - high VTE Device Contraindication: N/A - Device Ordered VTE Drug Contraindication: N/A - Med Ordered
[2021-05-04 19:36] VITALS: BP 128/61; PULSE 52; RESP 18; TEMP 37.3; O2SAT 96
[2021-05-04] MEDS: Acetaminophen 325 MG TABLET 650 MG PO (20:28)
[2021-05-04] MEDS: LORazepam 1 MG TABLET PO (22:53)
[2021-05-04] MEDS: Enoxaparin Sodium 40 MG/0.4 ML SYRINGE SUBCUT (22:54)
[2021-05-04 22:58] VITALS: BP 112/71; PULSE 56; RESP 18; TEMP 36.9; O2SAT 96
[2021-05-05] MEDS: HYDROmorphone HCl 2 MG TABLET 1 MG PO ×3 (03:30→11:40)
[2021-05-05 03:35] VITALS: BP 116/62; PULSE 51; RESP 18; TEMP 36.6; O2SAT 96
[2021-05-05] MEDS: Dicyclomine HCl 10 MG CAPSULE 20 MG PO ×2 (06:34→11:40)
[2021-05-05] MEDS: Omeprazole 20 MG CAPSULE.DR PO (06:34)
--- NOTE | 2021-05-05 06:44 | MHC.PIE ---
P: Continued abd tenderness. I: Medicated w/ PO dilaudid @ 0330. E: Patient reported able to rest, but pain keeps coming back.
[2021-05-05 07:55] VITALS: BP 129/64; PULSE 55; RESP 20; TEMP 36.8; O2SAT 97
[2021-05-05] MEDS: Mesalamine 250 MG CAPSULE.ER 1000 MG PO (08:28)
[2021-05-05] MEDS: predniSONE 20 MG TABLET 40 MG PO (08:28)
[2021-05-05] MEDS: Escitalopram Oxalate 10 MG TABLET PO (08:28)
[2021-05-05] MEDS: 0.9 % Sodium Chloride Flush 3 ML SYRINGE IVFLUSH (08:50)
--- NOTE | 2021-05-05 10:56 | CONS_ITS ---
DATE OF SERVICE: 05/02/2021 REASON FOR CONSULTATION: Abdominal pain and Crohn disease. HISTORY OF PRESENT ILLNESS: The patient is a 45-year-old female, well known to me from both office visits and a very recent hospitalization. She has an underlying history of Crohn disease involving the terminal ileum and colon, as well as perianal disease in the past. As an outpatient, she had been on budesonide 6 mg daily, Pentasa 1 g 3 times a day or 4 times a day, dicyclomine, Imodium, and some cholestyramine. Due to ongoing symptoms, I had discussed with her the need to start one of the biologic agents such as Humira. However, she did not want to do that due to concerns about immunocompromise and other potential side effects. She was admitted here last week and was discharged over this past weekend. She had been admitted with a flare-up of her symptoms including vomiting, abdominal pain, and some diarrhea. A CAT scan had shown some inflammatory changes of the terminal ileum. She seemed to do fairly well on some IV steroids, dicyclomine, and slow advancement of her diet. She was discharged over the weekend, but began having ongoing significant abdominal pain, which prompted her return to the ER. She denies any significant diarrhea at home. She denies any vomiting. She has not noticed any signs of bleeding, fevers, jaundice, nor urinary symptoms. Since admission here last night, she has been feeling somewhat better with less abdominal discomfort. She does have history of erythema nodosum, but has not noticed any new lesions during her recent increased GI symptomatology. She has not noticed any jaundice. MEDICATIONS: Include dicyclomine 10 mg q.i.d., Lovenox, Lexapro, IV hydrocortisone 100 mg q.8h., Dilaudid p.r.n., Ativan p.r.n., Pentasa 1000 mg t.i.d., omeprazole 20 mg daily, Zofran p.r.n., and sumatriptan p.r.n. PAST MEDICAL HISTORY: Crohn disease as above. Gastroesophageal reflux. Depression. Hypertension. Presumed renal carcinoma in the right kidney, treated with cryoablation. Kidney stones. 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 Her most recent colonoscopy was in December 2018, with active ileitis noted. The colon appeared normal on that occasion, including biopsies. Her surgeries include that of perianal disease with fistulae and sphincterotomy, as well as anal dilatation. Hip surgery with placement of a izzy in relation to congenital dysplasia of the hips in 1993, and a izzy had to be replaced in the left femur in January [address] Messer. PAST FAMILY HISTORY: Father has Crohn disease, as well as a paternal aunt. There is no family history of colorectal cancer. SOCIAL HISTORY: She is . 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 She does not smoke, nor use any significant amounts of alcohol. REVIEW OF SYSTEMS: CONSTITUTIONAL: She has been feeling fatigue and anorexia in relation to the active Crohn disease. SKIN: Without rash. No pruritus. CARDIAC: No chest pain. PULMONARY: No coughing. No hemoptysis. GI: As above. PHYSICAL EXAMINATION: GENERAL: The patient is a pleasant, alert, comfortable-appearing female, sitting up in bed. SKIN: Warm and dry. HEENT: Anicteric sclerae. CHEST: Clear. CARDIAC: Normal S1 and S2. ABDOMEN: Soft. Normal bowel sounds. Nondistended. There is some mild lower abdominal tenderness, but there is no mass, rebound, or guarding. EXTREMITIES: Without edema nor any signs of erythema nodosum. LABORATORY DATA: Her CAT scan on admission did not appear particularly different than the one on April 25. There was some diffuse thickening of the terminal ileum with some mild fat stranding, but without any sign of bowel obstruction, free air, abscess, nor fistulae. The white blood cell count 11.9, hemoglobin 13.6. Normal chemistries. BUN 12, creatinine 0.8, total bilirubin 0.2. Remainder of LFTs normal. Albumin 3.6, lipase is 30. IMPRESSION: Given the patient's presentation and underlying history, she continues to obviously have symptoms from her Crohn's disease involving the terminal ileum. Although she is having pain, her abdominal exam seems to be fairly benign. At this point, I would continue the current line of treatment with the IV hydrocortisone, antispasmodics and supportive care in general including analgesics. I would continue her clear liquid diet and then slowly advance as tolerated. I would repeat morning laboratories including a repeat C-reactive protein and sedimentation rate. I do not think any type of endoscopic evaluation is required. I will continue her PPI. Of note, plans are being made to try to arrange for her to begin outpatient Humira therapy as soon as possible. She presently is agreeable to that. This has all been discussed with the patient in detail and she is comfortable with the plan. Thank you for this consultation. MD ROGER Burrell/TALIB / [id number] MTDD
[2021-05-05 11:04] VITALS: BP 122/66; PULSE 65; RESP 20; TEMP 36.2; O2SAT 95
--- NOTE | 2021-05-05 11:37 | MHC.CM.PN ---
pt dcd home with no skilled servcies ordered by md pts family to transport home
--- NOTE | 2021-05-05 11:37 | PM.DS ---
DS: Providers Provider Date of Service: 05/05/21 Date of admission: 05/02/21 00:12 Primary care physician: Jaswant Frank MD Consults: 05/02/21 00:24 Consult to Gastroenterology Routine Consulting Provider: Matthew Alexis Reason for consultation: intractable crohns pain Has provider been notified: No DS: Diagnosis Discharge Diagnosis (1) Intractable abdominal pain: Status: Acute (2) B12 deficiency: Status: Acute (3) Crohn's disease: Status: Acute (4) Depression: Status: Acute DS: Medications Discharge Medications Home Medications: Home Medications Medication Instructions Recorded Confirmed levonorgestrel 20 mcg/24 hours (6 1 device INTRAUTERINE ONCE 10/04/20 05/01/21 yrs) 52 mg intrauterine device omeprazole 20 mg capsule,delayed 20 mg PO DAILY 12/05/20 05/01/21 release Pentasa 1,000 mg PO TID 04/25/21 05/01/21 ondansetron HCl 4 mg PO Q8H PRN 04/25/21 05/01/21 sumatriptan succinate 0.5 tab PO DAILY MRX1 PRN 04/25/21 05/01/21 Previous Rx's Medication Instructions Recorded escitalopram oxalate 10 mg tablet 10 mg PO DAILY 30 Days #30 tab 03/29/21 acetaminophen 650 mg PO Q8H PRN 30 Days tab 04/29/21 eszopiclone 3 mg tablet 3 mg PO BEDTIME PRN 30 Days #30 tab 05/01/21 lorazepam 1 mg tablet 1 mg PO TID PRN 30 Days #90 tab 05/01/21 ondansetron 4 mg PO Q8H PRN 5 Days #20 tab 05/05/21 oxycodone 5 mg PO Q6H PRN #20 cap 05/05/21 DS: Summary Hospital Course Hospital Course: Chief Complaint: abdominal pain This is a 45-year-old female with past medical history of Crohn's disease, depression, 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 Patient discharged from the hospital on Sunday 04/29 after being managed for Crohn's flare with steroids as well as dicyclomine, but returns today stating that her symptoms persisted and she has not had a lot of relief from abdominal pain. Patient reports that at home she was unable to maintain a low residue diet but tried soups and a with no relief of her abdominal pain. Describes the pain as 10/10, no nausea or vomiting, nonradiating, localized to the lower abdomen. Patient reports 1 episode of diarrhea today. she took tramadol that she had at home from her PCP with no relief, she called GI and had no answer from them and therefore decided to come to the hospital. Received Dilaudid in the ED which helped but patient reports that she needs more pain medication as she gets no relief from any p.o. meds. Patient was also discharged on prednisone as well as dicyclomine. On arrival to the ED No significant abnormal vitals Lab significant for WBC count of 11.9, otherwise unremarkable. 45-year-old female with history of Crohn's disease who presents to the hospital with intractable abdominal pain. Of note patient was discharged from the hospital on 04/29 after being managed for ileitis/Crohn's flare and at that time was seen by GI id recommended discharge on prednisone and dicyclomine and follow-up outpatient to be able to start on biologics, but patient returns stating that her abdominal pain is non relenting and she is unable to manage at home. Hospital course patient admitted due to Intractable abdominal pain secondary to crohn's flare, patient treated with IV steroids, IV fluids Pentasa, omeprazole, and Bentyl patient responded well to above treatment diet has been gradually advanced that she is tolerating well, in regard to pain she was treated with Dilaudid, since pain has improved and she is doing better she is being discharged home on by mouth oxycodone and recommended to take prednisone 40 mg daily and continue tapering as previously recommended, she has been recommended to have outpatient follow-up with Dr. Alexis in 1 week In regard anxiety and depression patient recommended to continue home medication Patient also diagnosed to have Vitamin B12 deficiency likely due to poor absorption with Crohn ileitis therefore started on vitamin B12 shots, recommend to follow up as outpatient for continued vitamin B12 shots at Dr. Alexis or Office. Time Spent with Patient Time attestation: Total time spent providing and/or coordinating discharge services: Discharge coordination time: Greater than 30 minutes Quality: Stroke Does the patient have a stroke diagnosis?: No Physical Exam Vital Signs: Vital Signs: Last Vital Signs Temp 97.1 F 05/05/21 11:04 Pulse 65 06/18/21 11:04 Resp 20 05/05/21 11:04 BP 122/66 05/05/21 11:04 Pulse Ox 95 05/05/21 11:04 Body Mass Index 30.0 General no acute distress. Neck supple no JVD. CVS regular rate rhythm, Respiratory lungs clear to auscultation, no respiratory distress, no wheeze, no rhonchi. Gastrointestinal abdomen soft, mild lower abdominal tenderness with palpation, no distension, bowel sounds audible, no guarding , no rigidity. Extremities no edema. Neuro nonfocal Skin no rash Discharge Plan Discharge Patient Disposition: Home, Self-Care Discharge Diagnosis: Intractable abdominal pain Flare of Crohn's disease Vitamin B12 deficiency Referrals: Jaswant Frank MD [Primary Care Provider] - 1 Week Discharge Medications: New oxycodone 5 mg capsule 5 mg PO Q6H PRN (Reason: abdominal pain) Qty: 20 RF: 0 ondansetron 4 mg tablet,disintegrating 4 mg PO Q8H PRN (Reason: nausea and vomiting) 5 Days Qty: 20 RF: 0 Continued escitalopram oxalate 10 mg tablet 10 mg PO DAILY 30 Days Qty: 30 RF: 2 lorazepam 1 mg tablet 1 mg PO TID PRN (Reason: anxiety) 30 Days Qty: 90 RF: 0 eszopiclone 3 mg tablet 3 mg PO BEDTIME PRN (Reason: insomnia) 30 Days Qty: 30 RF: 1 sumatriptan succinate 100 mg tablet 0.5 tab PO DAILY MRX1 PRN (Reason: Migraine Headache) RF: 0 ondansetron HCl 4 mg tablet 4 mg PO Q8H PRN (Reason: persistent nausea and vomiting) RF: 0 Pentasa 500 mg Capsule, Extended Release 1,000 mg PO TID RF: 0 acetaminophen 325 mg Tablet 650 mg PO Q8H PRN (Reason: Pain, Mild (Pain Scale 1-3)) 30 Days RF: 0 Mirena 20 mcg/24 hours (6 yrs) 52 mg intrauterine device 1 device intrauterine ONCE RF: 0 omeprazole 20 mg capsule,delayed release(DR/EC) 20 mg PO DAILY RF: 0 Discontinued tramadol 50 mg tablet 50 mg PO TID PRN (Reason: pain) 30 Days Qty: 90 RF: 0 cholestyramine (with sugar) 4 gram powder 2 g PO BID RF: 0 Discharge Orders: Discharge Order (Routine); Ordered 05/05/21 Ordered By: Shelby Valenzuela Diet: advance to usual diet Activity on Discharge: As tolerated Stand Alone Forms: Patient Portal Discharge page Care Plan Goals: Take prednisone starting at 40 mg and taper as previously recommended Continue Pentasa and as needed zofran, outpatient follow-up with Dr. Alexis in 1 week In regard to vitamin B12 deficiency have outpatient follow-up with Dr. Alexis to continue using vitamin B12 IM shot daily for 5 days, then Q weekly for 4 weeks and then Q monthly Health Concerns: Crohn's disease Vitamin B12 deficiency treatment as above Plan of Treatment: Follow-up with Dr. Frank and Dr. Aleixs in 1 week Assessment: As above
== END 2021-05-05 14:00 | disposition home or self-care (01) | DRG 245 ==
LOC: HO.ED 21:04 → HO.EDOVER 05-02 00:33 → HO.IMC 05-02 00:51
PROVIDERS: Internal Medicine; Admitting Provider Internal Medicine; Emergency Provider Emergency Medicine Emergency Medical Services; PCP Internal Medicine; Visit Provider Hospitalist
DX: K50.90 Crohn's disease, unspecified, without complications (principal); E53.8 Deficiency of other specified B group vitamins; F17.210 Nicotine dependence, cigarettes, uncomplicated; F32.9 Major depressive disorder, single episode, unspecified; F41.9 Anxiety disorder, unspecified; Z88.5 Allergy status to narcotic agent; Z20.822 Contact with and (suspected) exposure to COVID-19; Z71.6 Tobacco abuse counseling; Z79.899 Other long term (current) drug therapy
CPT/HCPCS: 36415; 74177; 80048; 80076; 82607; 82728; 82746; 83540; 83690; 85025; 85652; 86140; 87635; 99284; J1170; J1650; J2405; J2920; Q9967

== ENCOUNTER 2021-06-17 06:30 | Inpatient (IN) | payer OTHER, SELFPAY ==
--- NOTE | ~2021-06-17 | CT_ITS ---
EXAMINATION: CT ABDOMEN AND PELVIS WITH CONTRAST CLINICAL INFORMATION: History of colitis. Crohn's disease. COMPARISON: CT abdomen and pelvis 05/01/2021. TECHNIQUE: Multidetector volumetric images were obtained from the superior aspect of the liver through the pubic symphysis following administration 85 mL of Omnipaque 350 intravenous contrast. Sagittal and coronal reformatted images were obtained on the technologist's workstation. Oral contrast: No This CT examination was performed using dose optimization techniques as appropriate, variously including the following: *Automated exposure control *Adjustment of mA and/or kV according to patient size (this includes techniques or standardized protocols for targeted exams where dose is matched to indication/reason for exam; i.e. extremities or head) *Use of iterative reconstruction technique DLP: 651 mGy-cm FINDINGS: LUNG BASES: The visualized lung bases are unremarkable. LIVER, GALLBLADDER, AND BILIARY TREE: The liver is normal in size, shape, and attenuation. No focal hepatic lesion or biliary ductal dilatation is present. The gallbladder is unremarkable with no evidence of radiopaque gallstones, gallbladder wall thickening, or obvious pericholecystic inflammatory changes. PANCREAS: Unremarkable. SPLEEN: Unremarkable. ADRENAL GLANDS: Unremarkable. KIDNEYS AND URETERS: The kidneys are normal size, shape and contour. There is a small cortical defect lower pole right kidney likely cortical scar. It is unchanged to previous exam. There is no radiopaque renal calculi or hydronephrosis. BLADDER: Unremarkable. GASTROINTESTINAL TRACT: Scattered stool, diverticuli and gas is seen throughout the colon without significant distention. Again visualized is diffuse wall thickening involving terminal ileum extending to the IC junction, similar to previous study. Rest of the small bowel loops are normal. No free air or free fluid seen. Appendix is normal caliber. ABDOMINAL WALL: There is a small umbilical hernia containing fat, unchanged. LYMPH NODES: Normal. VASCULAR: Unremarkable. PELVIC VISCERA: Unremarkable. OSSEOUS STRUCTURES: No lytic or sclerotic process seen. CT/CT abdomen pelvis w con IMPRESSION: Diffuse mural thickening involving terminal ileum extending to the ileocecal valve similar to previous study suggestive of Crohn's disease or backwash ileitis. There is colonic diverticulosis with mild sigmoid wall thickening but no pericolic fat stranding, similar to previous study. Normal appendix. Small cortical defect lower pole posterior cortex right kidney and umbilical hernia containing fat.
[2021-06-17 06:41] VITALS: BP 146/93; PULSE 115; RESP 16; TEMP 36.9; O2SAT 99; BMI 31.3
--- NOTE | 2021-06-17 06:56 | ED.ABDPAIN ---
HPI - Abdominal Pain General Chief Complaint: Abdominal Pain Stated Complaint: Abd pain Time Seen by Provider: 06/17/21 06:48 Source: patient Mode of arrival: ambulatory Limitations: no limitations History of Present Illness HPI narrative: This is 45 years old female with history of Crohn's disease presented to the emergency department complaining of abdominal pain nausea and watery diarrhea. The denies any fever chills. She is current on prednisone for the Crohn's she is followed by a medical assisting program director MD elicited complaint: abdominal pain Pertinent past history: other (Crohn's disease) Onset (ago): day(s) (3) Pain Consistency: constant Location: periumbilical Severity: moderate Quality: cramping Radiation: none Relieving factors: nothing Related Data Home Medications Medication Instructions Recorded Confirmed levonorgestrel 20 mcg/24 hours (6 1 device INTRAUTERINE ONCE 10/04/20 05/26/21 yrs) 52 mg intrauterine device (Mirena) omeprazole 20 mg capsule,delayed 20 mg PO DAILY 12/05/20 05/26/21 release mesalamine 500 mg 1,000 mg PO TID 04/25/21 05/26/21 capsule,controlled release (Pentasa) sumatriptan succinate 100 mg tablet 0.5 tab PO DAILY MRX1 PRN 04/25/21 05/26/21 amitriptyline 25 mg tablet 25 mg PO BEDTIME 05/26/21 05/26/21 dicyclomine 10 mg capsule [id number] mg PO QID 05/26/21 05/26/21 prednisone 5 mg tablet mg PO 05/26/21 05/26/21 propranolol 40 mg tablet 40 mg PO BID 05/26/21 05/26/21 Previous Rx's Medication Instructions Recorded escitalopram oxalate 10 mg tablet 10 mg PO DAILY 30 Days #30 tab 03/29/21 acetaminophen 325 mg tablet 650 mg PO Q8H PRN 30 Days tab 04/29/21 eszopiclone 3 mg tablet 3 mg PO BEDTIME PRN 30 Days #30 tab 05/01/21 ondansetron 4 mg disintegrating 4 mg PO Q8H PRN 5 Days #20 tab 05/05/21 tablet lorazepam 1 mg tablet 1 mg PO TID PRN 30 Days #90 tab 05/25/21 erythromycin 5 mg/gram (0.5 %) eye 0.5 inch OPHTHALMIC (EYE) TID 7 05/26/21 ointment Days #3.5 g tramadol 50 mg tablet 50 mg PO TID PRN 30 Days #90 tab 05/30/21 Allergies Allergy/AdvReac Type Severity Reaction Status Date / Time meperidine [From Demerol] Allergy Severe SWELLING,RASH,THROAT Verified 05/26/21 11:49 CLOSES latex [LATEX] Allergy Mild RASH Verified 05/26/21 11:49 codeine [Codeine] AdvReac Intermediate NAUSEA/VOMITING, Verified 05/26/21 11:49 GI upset/vomiting Fish Containing Products AdvReac Unknown NAUSEA/VOMI Verified 05/26/21 11:49 [Fish Product Derivatives] TING trazodone AdvReac Intermediate worsening Uncoded 05/26/21 11:49 anxiety symptoms Review of Systems Constitutional: Reports no additional constitutional complaints Eyes: Reports no additional eye complaints Reports system reviewed and no additional complaints, except as documented Cardiovascular: Reports no additional cardiovascular complaints Respiratory: Reports no additional respiratory complaints Gastrointestinal: Reports abdominal pain, Reports diarrhea and Reports nausea Reports system reviewed and no additional complaints, except as documented Physical Exam Vital Signs: Vital Signs: Last Vital Signs Temp 98.5 F 06/17/21 06:41 Pulse 87 06/17/21 09:44 Resp 18 06/17/21 09:44 BP 114/65 06/17/21 09:44 Pulse Ox 98 06/17/21 09:44 Body Mass Index 31.3 Const: Other: She is not in acute distress she appear anxious General: cooperative Orientation/consciousness: oriented to person, oriented to place, oriented to time and patient oriented x3 HENMT: Head: Yes normal to inspection Ears: hearing grossly normal bilaterally General nose exam: Normal external nose present Face and sinus: Yes normal facial exam Mouth: Normal oral and palatal mucosa present Throat: Yes posterior oropharynx normal Neck: Neck: Yes normal visual inspection, Yes full ROM and Yes no lymphadenopathy Thyroid: Thyroid normal Chest: Chest palpation & inspection: normal inspection of the chest Resp: Effort & Inspection: normal respiratory effort and able to speak in complete sentences Auscultation: clear to auscultation bilaterally Cardio: Jugular venous distension: no JVD Rate: regular rate Rhythm: regular rhythm Heart sounds: S1 normal heart sound present and S2 normal heart sound present GI: Inspection: Yes normal to inspection Palpation (GI): Soft to palpation, not firm, Tenderness to palpation present (GI), no guarding and not rigid Auscultation: normal bowel sounds Skin: General skin exam: no rashes or lesions noted and elasticity normal Neuro: General: oriented to person, oriented to place, oriented to time and patient oriented x3 Course Reevaluation(s) Reevaluation #1: PATIENT IS STILL COMPLAINING OF ABDOMINAL PAIN SHE HAS ELEVATED WHITE COUNT CT SHOWS INFLAMMATORY CHANGES ON THE ILEUM. AT THIS POINT WE WILL ADMIT THE PATIENT FOR OBSERVATION I CONSULTED THE WITH THE STAGE HAND ON-CALL DR. POLLOCK WE WILL GIVE IV STEROID WELL Discharge Plan Discharge Clinical Impression: Abdominal pain, Abdominal pain despite therapy for Crohn's disease Patient Disposition: Admitted As Inpatient [facility] Past Medical History Attestation statement: The following information was validated with the patient. 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 History of renal cell cancer (~2014) Insomnia Intractable nausea and vomiting Lumbar degenerative disc disease Migraine Osteoarthritis of hips, bilateral Overweight (BMI 25.0-29.9) Surgical History History of arthroplasty (~01/2012) History of cryosurgery (~04/20/15) History of intestinal surgery History of removal of calculus of renal pelvis through percutaneous nephrostomy (~10/2015) Family History Family History Father Crohn disease Migraine Mother HTN (hypertension) Vertigo Cervical cancer Maternal Grandmother HTN (hypertension) Hyperlipidemia Diabetes mellitus Paternal Grandfather Diabetes mellitus Other Mental health problem Social History Social History Household Members: None Housing: House Do you presently have visiting nurse or other home services: No Alcohol intake: current Alcohol intake frequency: holidays/special occasions only Patient Tobacco Use Status: Former Tobacco user Tobacco use type: Cigarette Use of substances other than those prescribed or required for medical reasons: No Advance Directives: No Advance Directives Information Provided: No Patient : No service: No Current occupational status: unemployed Gender identity: female
[2021-06-17 07:15] LABS: MANUAL DIFF FLAG NO
[2021-06-17 07:16] LABS: Basophils Absolute Auto 0.1 X10*3/uL (0.0-0.2); Basophils Percent Auto 0.5 % (0-2); Eosinophils Absolute Auto 0.1 X10*3/uL (0.0-0.4); Eosinophils Percent Auto 0.9 % (0-4); Hematocrit 44.1 % (37-47); Hemoglobin 14.5 g/dl (12.0-16.0); Imm Gran Abs Auto 0.11 X10*3/uL (0.00-0.03); Imm Gran Pct Auto 0.9 % (0.0-0.4); Lymphocytes Absolute Auto 2.1 X10*3/uL (1.2-4.9); Lymphocytes Percent Auto 16.4 % (20-40); Mean Corpuscular HGB Conc 32.9 g/dl (31.0-35.0); Mean Corpuscular Volume 94.4 fL (80-98); Mean Platelet Volume 9.4 fL (9.4-12.3); Monocytes Percent Auto 8.1 % (2-11); Neutrophils Absolute Auto 9.2 X10*3/uL (2.0-8.3); Neutrophils Percent Auto 73.2 % (45-73); Platelet Count 353 X10*3/uL (160-400); Red Blood Count 4.67 X10*6/uL (4.20-5.50); Red Cell Distribution Width 14.4 % (11.0-16.0); White Blood Count 12.6 X10*3/uL (4.8-10.8)
[2021-06-17] MEDS: HYDROmorphone HCl 0.5 MG/0.5 ML SYRINGE IVPUSH ×4 (07:23→19:36)
[2021-06-17] MEDS: LORazepam 2 MG/ML VIAL 1 MG IVPUSH (07:23)
[2021-06-17] MEDS: 0.9 % Sodium Chloride 1,000 ML 999 ML IVCONT (07:24)
[2021-06-17 07:51] LABS: Alanine Aminotransferase 19 U/L (0-31); Albumin Level 3.8 g/dL (3.5-5.0); Alkaline Phosphatase 96 U/L (39-117); Anion Gap 16 (12-20); Aspartate Amino Transferase 23 U/L (5-31); Bilirubin Total 0.4 mg/dL (0.0-1.0); Blood Urea Nitrogen 9 mg/dL (9-16); Calcium 10.2 mg/dL (8.4-10.2); Carbon Dioxide 28 mmol/L (22-29); Chloride 104 mmol/L (96-108); Creatinine Clr Calc Pharmacy 90.1; Estimated Glomerular Filt Rate > 60; Glucose Random 103 mg/dL (60-115); Lipase 33 U/L (8-78); Potassium 4.6 mmol/L (3.3-5.1); Sodium 143 mmol/L (135-145); Total Protein 7.3 g/dL (6.5-8.0)
[2021-06-17 08:08] LABS: HCG Quantitative < 2 mIU/mL
--- NOTE | 2021-06-17 08:22 | PC.NURSE ---
pt talking on her phone, pt reports feeling a little better pain at 5/10, denies nausea at this time
[2021-06-17] MEDS: iohexoL 350 MG/ML 100 ML INFUS..BTL IV (08:52)
[2021-06-17 09:44] VITALS: BP 114/65; PULSE 87; RESP 18; O2SAT 98
--- NOTE | 2021-06-17 09:48 | PC.NURSE ---
pt reports that her pain is starting to come back some, aware
[2021-06-17] MEDS: methylPREDNISolone Sod Succ 125 MG/2 ML VIAL IVPUSH (11:03)
[2021-06-17 11:43] LABS: COVID-19 Test Negative (Negative); IDNOW Serial# 9DD0AD1C
--- NOTE | 2021-06-17 11:46 | P.HPHOSP_ITS ---
History of Present Illness Date of Service: 06/17/21 Chief Complaint: abdominal pain This is a 45-year-old female with a history of Crohn's disease who presents to the emergency department with abdominal pain. Patient had 2 admissions in April for abdominal pain secondary to Crohn's disease. Most recently she was discharged home on May 05. She was discharged home on a prednisone taper. She has had difficulty tapering down the prednisone and has had to go back up on her dose. She is now down to 20 mg daily. She is a post to be starting on Humira but has not yet received her 1st dose. the past several days she has been having an increase in her abdominal pain and abdominal spasms and states that she is unable to tolerate the pain any longer. Her abdominal pain is primarily located in her lower abdomen. She has loose stools daily but denies any bloody diarrhea. She denies any associated fever or chills. She has had associated nausea and some intermittent dry heaving but no vomiting. In the emergency department she had a CT scan of abdomen which appeared unchanged from previous on 05/01. Lab work was significant for leukocytosis of 12.7 and was otherwise unremarkable. She required multiple doses of IV narcotics for adequate pain control. 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 History of renal cell cancer (~2014) Insomnia Intractable nausea and vomiting Lumbar degenerative disc disease Migraine Osteoarthritis of hips, bilateral Overweight (BMI 25.0-29.9) Family History Father Crohn disease Migraine Mother HTN (hypertension) Vertigo Cervical cancer Maternal Grandmother HTN (hypertension) Hyperlipidemia Diabetes mellitus Paternal Grandfather Diabetes mellitus Other Mental health problem Surgical History History of arthroplasty (~01/2012) History of cryosurgery (~04/20/15) History of intestinal surgery History of removal of calculus of renal pelvis through percutaneous nephrostomy (~10/2015) Social History Household Members: None Housing: House Do you presently have visiting nurse or other home services: No Alcohol intake: current Alcohol intake frequency: holidays/special occasions only Patient Tobacco Use Status: Former Tobacco user Tobacco use type: Cigarette Use of substances other than those prescribed or required for medical reasons: No Advance Directives: No Advance Directives Information Provided: No Patient : No service: No Current occupational status: unemployed Gender identity: female Meds Allergies Allergy/AdvReac Type Severity Reaction Status Date / Time meperidine [From Demerol] Allergy Severe SWELLING,RASH,THROAT Verified 05/26/21 11:49 CLOSES latex [LATEX] Allergy Mild RASH Verified 05/26/21 11:49 codeine [Codeine] AdvReac Intermediate NAUSEA/VOMITING, Verified 05/26/21 11:49 GI upset/vomiting Fish Containing Products AdvReac Unknown NAUSEA/VOMI Verified 05/26/21 11:49 [Fish Product Derivatives] TING trazodone AdvReac Intermediate worsening Uncoded 05/26/21 11:49 anxiety symptoms Home Medications Medication Instructions Recorded Confirmed Last Taken Type levonorgestrel 20 mcg/24 hours (6 1 device INTRAUTERINE ONCE 10/04/20 06/17/21 Unknown History yrs) 52 mg intrauterine device (Mirena) omeprazole 20 mg capsule,delayed 20 mg PO DAILY 12/05/20 06/17/21 Unknown History release mesalamine 500 mg 1,000 mg PO TID 04/25/21 06/17/21 Unknown History capsule,controlled release (Pentasa) sumatriptan succinate 100 mg tablet 0.5 tab PO DAILY MRX1 PRN 04/25/21 06/17/21 Unknown History dicyclomine 10 mg capsule [id number] mg PO QID 05/26/21 06/17/21 Unknown History prednisone 5 mg tablet See Taper PO DAILY 05/26/21 06/17/21 Unknown History Physical Exam Vital Signs and Narrative: Vital Signs: Last Vital Signs Temp 98.5 F 06/17/21 06:41 Pulse 87 06/17/21 09:44 Resp 18 06/17/21 09:44 BP 114/65 06/17/21 09:44 Pulse Ox 98 06/17/21 09:44 Body Mass Index 31.3 Const: Nutritional Appearance: well nourished Orientation/consciousness: patient oriented x3 HENMT: Head: Yes normocephalic and Yes atraumatic Eyes: Sclerae: sclerae normal Chest: Chest palpation & inspection: normal inspection of the chest Resp: Effort & Inspection: normal respiratory effort and no respiratory distress Auscultation: clear to auscultation bilaterally Cardio: Rate: regular rate Rhythm: regular rhythm GI: Other: primarily tender in lower abdomen, no rebound, non-distended Palpation (GI): Soft to palpation, Tenderness to palpation present (GI) and no guarding Skin: General skin exam: no rashes or lesions noted Neuro: General: patient oriented x3 Cranial nerves: Yes CN's II-XII intact bilaterally and Yes Bilaterally intact EOM present Extrem: General: Yes normal to inspection Results Labs CBC and Chem 7: 06/17/21 07:11 06/17/21 07:11 Labs: Laboratory Results - last 24 hr 06/17/21 06/17/21 06/17/21 07:11 07:11 11:22 MCV 94.4 MCH 31.0 MCHC 32.9 RDW 14.4 Plt Count 353 MPV 9.4 Immature Gran % (Auto) 0.9 H Neut % (Auto) 73.2 H Lymph % (Auto) 16.4 L Lander % (Auto) 8.1 Eos % (Auto) 0.9 Baso % (Auto) 0.5 Lymph # (Auto) 2.1 Lander # (Auto) 1.0 Eos # (Auto) 0.1 Baso # (Auto) 0.1 Abs Immat Gran (auto) 0.11 H Absolute Neuts (auto) 9.2 H Absolute Nucleated RBC 0.000 Nucleated RBC % (auto) 0.0 Anion Gap 16 Estim Creat Clear Calc 90.1 Estimated GFR > 60 Random Glucose 103 Calcium 10.2 D Total Bilirubin 0.4 AST 23 ALT 19 Alkaline Phosphatase 96 Total Protein 7.3 Albumin 3.8 Lipase 33 Beta HCG, Quant < 2 COVID-19 ([facility]) Negative COVID-19 Clin Com See Note Imaging Radiologist's Impressions: Impressions Abdomen/Pelvis CT 06/17/21 06:55 IMPRESSION: Diffuse mural thickening involving terminal ileum extending to the ileocecal valve similar to previous study suggestive of Crohn's disease or backwash ileitis. There is colonic diverticulosis with mild sigmoid wall thickening but no pericolic fat stranding, similar to previous study. Normal appendix. Small cortical defect lower pole posterior cortex right kidney and umbilical hernia containing fat. Assessment and Plan (1) Abdominal pain: Status: Acute (2) Crohn's colitis: Qualifiers: Digestive disease complication type: unspecified complication Qualified Code(s): K50.119 - Crohn's disease of large intestine with unspecified complications Status: Acute This is a 45 year old female with history of crohns disease who presents to the ED with abdominal pain, admitted for crohns flare intractable abdominal pain secondary to Crohn's disease/crohns flare CT similar to previous one from 05/01 - will switch prednisone to IV Solu-Medrol - continue dicyclomine, pentasa - GI consult - stool studies - pain control anxiety and depression - continue home escitaloparm, ativan DVT prophylaxis:? Lovenox attending: Dr. Valenzuela Quality Stroke Does the patient have a stroke diagnosis?: No VTE Prior VTE?: No VTE Risk Level:: Medical - moderate - high VTE Device Contraindication: Treatment Not Indicated VTE Drug Contraindication: N/A - Med Ordered
[2021-06-17] MEDS: Enoxaparin Sodium 40 MG/0.4 ML SYRINGE SUBCUT (12:09)
[2021-06-17] MEDS: Lidocaine 4 % Patch ADH..PATCH 1 PATCH TRANSDERMA (12:10)
[2021-06-17] MEDS: Dicyclomine HCl 10 MG CAPSULE PO ×3 (12:11→21:57)
--- NOTE | 2021-06-17 12:54 | PC.NURSE ---
called med/surge the second time to give report, awaiting call back
--- NOTE | 2021-06-17 12:59 | PC.NURSE ---
report given to med/rn outpatient surgery
[2021-06-17 13:17] VITALS: BP 130/66; PULSE 88; RESP 16; TEMP 36.3; O2SAT 96
[2021-06-17] MEDS: Lactated Ringers 1,000 ML 80 ML IVCONT (13:25)
[2021-06-17] MEDS: Morphine Sulfate 2 MG/ML CARTRIDGE IVPUSH (13:37)
[2021-06-17] MEDS: LORazepam 1 MG TABLET PO ×2 (13:37→23:51)
--- NOTE | 2021-06-17 13:50 | PM.EVENT ---
Event Note Date of Service: 06/17/21 Event Note: Patient seen examined case discussed with APC Patient well known to me due due to her recent admission at [facility] with similar symptoms patient returned to [facility] due to worsening abdominal pain associated with nonbloody diarrhea she denied any associated fever chills labs showed stable electrolytes and renal function mild leukocytosis likely due to steroids On examination Awake alert in no acute distress Abdomen soft mild diffuse tenderness to palpation, bowel sounds audible Extremities no edema Assessment and plan Flare of Crohn's disease with intractable abdominal pain agree with treatment plan as above continue steroids Pentasa dicyclomine obtain GI consultation.
[2021-06-17 15:10] VITALS: BP 108/70; PULSE 80; RESP 18; TEMP 36.4; O2SAT 98
[2021-06-17] MEDS: 0.9 % Sodium Chloride Flush 3 ML SYRINGE IVFLUSH ×2 (15:23→21:57)
[2021-06-17] MEDS: methylPREDNISolone Sod Succ 40 MG/ML VIAL IVPUSH (17:06)
[2021-06-17] MEDS: SUMAtriptan succinate 50 MG TABLET PO (17:13)
[2021-06-17 19:36] VITALS: BP 119/62; PULSE 62; RESP 18; TEMP 36.4; O2SAT 97
[2021-06-17 23:22] VITALS: BP 134/78; PULSE 56; RESP 16; TEMP 36.2; O2SAT 95
[2021-06-18] MEDS: HYDROmorphone HCl 0.5 MG/0.5 ML SYRINGE IVPUSH ×6 (00:23→22:43)
[2021-06-18] MEDS: methylPREDNISolone Sod Succ 40 MG/ML VIAL IVPUSH ×3 (02:46→17:58)
[2021-06-18] MEDS: Lactated Ringers 1,000 ML 80 ML IVCONT (02:49)
[2021-06-18 04:00] VITALS: BP 107/69; PULSE 61; RESP 16; TEMP 36.4; O2SAT 97
[2021-06-18 06:33] VITALS: BP 122/71; PULSE 81
[2021-06-18 07:25] LABS: Hematocrit 44.8 % (37-47); Hemoglobin 14.3 g/dl (12.0-16.0); Mean Corpuscular HGB Conc 31.9 g/dl (31.0-35.0); Mean Corpuscular Hemoglobin 30.2 pg (27.0-33.0); Mean Corpuscular Volume 94.7 fL (80-98); Mean Platelet Volume 9.9 fL (9.4-12.3); Platelet Count 285 X10*3/uL (160-400); Red Blood Count 4.73 X10*6/uL (4.20-5.50); Red Cell Distribution Width 13.9 % (11.0-16.0); White Blood Count 9.8 X10*3/uL (4.8-10.8)
[2021-06-18 07:37] VITALS: BP 111/60; PULSE 61; RESP 19; TEMP 35.9; O2SAT 95
[2021-06-18] MEDS: Escitalopram Oxalate 10 MG TABLET PO (07:42)
[2021-06-18] MEDS: Dicyclomine HCl 10 MG CAPSULE PO ×4 (07:42→20:00)
[2021-06-18] MEDS: Omeprazole 20 MG CAPSULE.DR PO (07:42)
[2021-06-18] MEDS: traMADoL HCL 50 MG TABLET PO ×2 (07:42→15:53)
[2021-06-18] MEDS: Lidocaine 4 % Patch ADH..PATCH 1 PATCH TRANSDERMA (07:43)
[2021-06-18 07:54] LABS: Anion Gap 15 (12-20); Blood Urea Nitrogen 7 mg/dL (9-16); Calcium 9.5 mg/dL (8.4-10.2); Carbon Dioxide 21 mmol/L (22-29); Chloride 107 mmol/L (96-108); Creatinine Clr Calc Pharmacy 105.4; Estimated Glomerular Filt Rate > 60; Glucose Random 105 mg/dL (60-115); Potassium 4.4 mmol/L (3.3-5.1); Sodium 139 mmol/L (135-145)
--- NOTE | 2021-06-18 08:29 | MHC.CM.PN ---
DISCHARGED PLAN DISCHARGE HOME NO SERVICES (PT IS INDEPENDENT AND HER TWO CHILDREN LIVE WITH HER AGES 13YRS AND 15YRS (THEY ARE CURRENTLY CARED FOR MY PATINTS PARENTS.) PATIENT IS INTERESTED IN SEEING A MEDICAL ANTHROPOLOGY DIRECTOR ON THIS ADMISSION TO REVIEW DIET (SHE HAS HAD three crohns flare ups since april) PCP- DR [place] PATIENT TO CALL FOR POST HOSPITAL DISCHARGE FOLLOW UP DR SALDANA -FOLLOW UP WITH HER PRIMARY GI PHYSICIAN (PATIENT IS WAITING TO START HYUMERIA THROUGH THE GI OFFICE , SHE HAS RECIVED CONFORMATION THAT THE INSURANCE WILL COVER THIS( TRANSPORTATION FAMILY EDUCATED ABOUT THE IMPORTANCE OF [facility] A HEALTH CARE PROXY
--- NOTE | 2021-06-18 09:19 | PM.GICN ---
History of Present Illness Data of Consult Service Date: 06/18/21 Requesting physician: Shelby Valenzuela Primary Care Provider: Jaswant Frank MD HPI Reason for consult: cohns disease 45-year-old female with a history of renal cell ca treated with cryo, hip surgery and Crohn's disease who I am asked to see for further assessment of her IBD. Patient has underlying hx of crohns with olga lidia anal disease, as well as TI and colonic involvement in the past. She normally sees Dr Martinez and had been on treatments incl pentasa and budesonide. Biologics were not started due to patient reluctance but she had changed her mind and awaiting humira. She had a few admissions in 04/2021 for her crohns and was put on pred taper which she was still coming down on at time of this admission ( 20 mg pred at time of admit). This time she noted worsening RLQ pain 10/10 in severity for last several days. She has loose stools, but no blood. She has nausea, no emesis, no fever or chills. Lab work was significant for leukocytosis of 12.7 and was otherwise unremarkable. Ct scan this admit unchanged from prior with diffuse mural thickening of Ti. To my read there maybe some involvement of proximal small bowel as well. Last colonoscopy with active ileitis. she has had surgery for anal fistulae, sphincterotomy and anal dilation. Today she feels much better, no further diarrhea thus far, hungry and diet is being advanced Review of Systems Review of Systems: Yes all other systems are reviewed and are negative Constitutional: Constitutional: Reports no additional constitutional complaints, Denies chills and Denies fever(s) Eyes: Eyes: Reports no additional eye complaints ENT: Reports system reviewed and no additional complaints, except as documented Cardiovascular: Cardiovascular: Reports no additional cardiovascular complaints and Denies chest pain Respiratory: Respiratory: Reports no additional respiratory complaints and Denies cough Gastrointestinal: Gastrointestinal: Reports abdominal pain, Reports diarrhea and Reports nausea Neurologic: Reports system reviewed and no additional complaints, except as documented PMFSH Past Medical History 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 History of renal cell cancer (~2014) Insomnia Intractable nausea and vomiting Lumbar degenerative disc disease Migraine Osteoarthritis of hips, bilateral Overweight (BMI 25.0-29.9) Family History Family History Father Crohn disease Migraine Mother HTN (hypertension) Vertigo Cervical cancer Maternal Grandmother HTN (hypertension) Hyperlipidemia Diabetes mellitus Paternal Grandfather Diabetes mellitus Other Mental health problem Surgical History Surgical History History of arthroplasty (~01/2012) History of cryosurgery (~04/20/15) History of intestinal surgery History of removal of calculus of renal pelvis through percutaneous nephrostomy (~10/2015) Social History Social History Household Members: Family Housing: House Do you presently have visiting nurse or other home services: No Alcohol intake: current Alcohol intake frequency: holidays/special occasions only Patient Tobacco Use Status: Former Tobacco user Tobacco use type: Cigarette Smoked in Last 30 Days: No e-Cigarette/Vaping Use: Former Use Patient Interested in Nicotine Replacement: No Second Hand Smoke Exposure: No Use of substances other than those prescribed or required for medical reasons: No Currently Displaying Signs/Symptoms of Drug Intoxication Withdrawal: No Have you been hit, kicked, punched, or otherwise hurt by someone within the past year? If so, by whom?: No Do you feel safe in your current relationship?: No Current Relationship Is there a partner from a previous relationship who is making you feel unsafe now?: No Are you made to feel afraid or neglected: No Advance Directives: No Advance Directives Information Provided: No Do you have thoughts of harming others: None Do you have a plan to hurt others: No Plan Recently lost weight without trying: Unsure Eating poorly because of decreased appetite: No Nutrition Risks: No Nutritional Risk Patient : No : No Poor oral hygiene: No service: No Current occupational status: unemployed Gender identity: female Meds Allergies Allergy/AdvReac Type Severity Reaction Status Date / Time meperidine [From Demerol] Allergy Severe SWELLING,RASH,THROAT Verified 05/26/21 11:49 CLOSES latex [LATEX] Allergy Mild RASH Verified 05/26/21 11:49 codeine [Codeine] AdvReac Intermediate NAUSEA/VOMITING, Verified 05/26/21 11:49 GI upset/vomiting Fish Containing Products AdvReac Unknown NAUSEA/VOMI Verified 05/26/21 11:49 [Fish Product Derivatives] TING trazodone AdvReac Intermediate worsening Uncoded 05/26/21 11:49 anxiety symptoms Active Medications: Current Medications Generic Name Dose Route Start Last Admin Trade Name Freq PRN Reason Stop Dose Admin Acetaminophen 650 mg 06/17/21 11:57 Acetaminophen 325 Mg Tablet PO Q6H PRN Pain, Mild (Pain Scale 1-3) Dicyclomine HCl 10 mg 06/17/21 13:00 06/18/21 07:42 Dicyclomine Hcl 10 Mg Capsule PO 10 mg QID BENJAMIN Administration Docusate Sodium 100 mg 06/17/21 11:57 Docusate Sodium 100 Mg Capsule PO DAILY PRN Constipation Enoxaparin Sodium 40 mg 06/17/21 12:00 06/17/21 12:09 Enoxaparin Sodium 40 Mg/0.4 Ml Syringe SUBCUT 40 mg Q24H BENJAMIN Administration Escitalopram Oxalate 10 mg 06/18/21 09:00 06/18/21 07:42 Escitalopram Oxalate 10 Mg Tablet PO 10 mg DAILY BENJAMIN Administration Hydromorphone HCl 0.5 mg 06/17/21 14:47 06/18/21 06:39 Hydromorphone Hcl 0.5 Mg/0.5 Ml Syringe IVPUSH 0.5 mg Q4H PRN Administration Pain, Severe (Pain Scale 7-10) Lactated Ringer's 1,000 mls @ 80 mls/hr 06/17/21 12:15 06/18/21 02:49 Lr IVCONT 80 mls/hr .[id number] BENJAMIN Administration Lidocaine 1 patch 06/17/21 11:57 06/18/21 07:43 Lidocaine 4 % Patch Adh..Patch TRANSDERMA 1 patch DAILY BENJAMIN Administration Protocol Lorazepam 1 mg 06/17/21 11:57 06/17/21 23:51 Lorazepam 1 Mg Tablet PO 1 mg TID PRN Administration anxiety Methylprednisolone Sodium Succinate 40 mg 06/17/21 18:00 06/18/21 02:46 Methylprednisolone Sod Succ 40 Mg/Ml Vial IVPUSH 40 mg Q8H BENJAMIN Administration Non-Formulary Medication 3 mg 06/17/21 11:57 Eszopiclone PO BEDTIME PRN insomnia Non-Formulary Medication 1,000 mg 06/17/21 15:00 Mesalamine [Pentasa] PO TID BENJAMIN Omeprazole 20 mg 06/18/21 09:00 06/18/21 07:42 Omeprazole 20 Mg Capsule.Dr PO 20 mg DAILY BENJAMIN Administration Ondansetron HCl 4 mg 06/17/21 11:57 06/17/21 19:36 Ondansetron Hcl 4 Mg/2 Ml Vial IVPUSH 4 mg Q8H PRN Administration Nausea and Vomiting Sodium Chloride 3 ml 06/17/21 16:00 06/18/21 07:42 0.9 % Sodium Chloride Flush 3 Ml Syringe IVFLUSH Not Given QSHIFT [facility] Sumatriptan Succinate 50 mg 06/17/21 11:57 06/17/21 17:13 Sumatriptan Succinate 50 Mg Tablet PO 50 mg DAILY MRX1 PRN Administration Migraine Headache Tramadol HCl 50 mg 06/17/21 11:57 06/18/21 07:42 Tramadol Hcl 50 Mg Tablet PO 50 mg TID PRN Administration pain Home Medications Medication Instructions Recorded Confirmed Last Taken Type levonorgestrel 20 mcg/24 hours (6 1 device INTRAUTERINE ONCE 10/04/20 06/17/21 Unknown History yrs) 52 mg intrauterine device (Mirena) omeprazole 20 mg capsule,delayed 20 mg PO DAILY 12/05/20 06/17/21 Unknown History release mesalamine 500 mg 1,000 mg PO TID 04/25/21 06/17/21 Unknown History capsule,controlled release (Pentasa) sumatriptan succinate 100 mg tablet 0.5 tab PO DAILY MRX1 PRN 04/25/21 06/17/21 Unknown History dicyclomine 10 mg capsule [id number] mg PO QID 05/26/21 06/17/21 Unknown History prednisone 5 mg tablet See Taper PO DAILY 05/26/21 06/17/21 Unknown History Physical Exam Vital Signs: Vital Signs: Last Vital Signs Temp 96.7 F L 06/18/21 07:37 Pulse 61 06/18/21 07:37 Resp 19 06/18/21 07:37 BP 111/60 06/18/21 07:37 Pulse Ox 95 06/18/21 07:37 Body Mass Index 31.3 Const: General: cooperative Nutritional Appearance: well nourished Orientation/consciousness: oriented to person, oriented to place, oriented to time and patient oriented x3 HENMT: Head: Yes normal to inspection, Yes normocephalic and Yes atraumatic Ears: hearing grossly normal bilaterally General nose exam: Normal external nose present Face and sinus: Yes normal facial exam Mouth: Normal oral and palatal mucosa present Throat: Yes posterior oropharynx normal Eyes: Sclerae: sclerae normal Neck: Neck: Yes normal visual inspection, Yes full ROM and Yes no lymphadenopathy Thyroid: Thyroid normal Chest: Chest palpation & inspection: normal inspection of the chest Resp: Effort & Inspection: normal respiratory effort, able to speak in complete sentences and no respiratory distress Auscultation: clear to auscultation bilaterally Cardio: Jugular venous distension: no JVD Rate: regular rate Rhythm: regular rhythm Heart sounds: S1 normal heart sound present and S2 normal heart sound present GI: Other: primarily tender in lower abdomen, no rebound, non-distended Inspection: Yes normal to inspection Palpation (GI): Soft to palpation, not firm, Tenderness to palpation present (GI), no guarding, not rigid and no hepatosplenomegaly Auscultation: normal bowel sounds Skin: General skin exam: no rashes or lesions noted and elasticity normal Neuro: General: oriented to person, oriented to place, oriented to time and patient oriented x3 Cranial nerves: Yes CN's II-XII intact bilaterally and Yes Bilaterally intact EOM present Extrem: General: Yes normal to inspection Results Labs CBC & Chem 7: 06/18/21 06:07 06/18/21 06:07 Labs: Short CBC 06/18/21 Range/Units 06:07 WBC 9.8 (4.8-10.8) X10*3/uL Hgb 14.3 (12.0-16.0) g/dl Hct 44.8 (37-47) % Plt Count 285 (160-400) X10*3/uL BMP 06/18/21 06:07 Sodium 139 Potassium 4.4 Chloride 107 Carbon Dioxide 21 L BUN 7 L Creatinine 0.65 Calcium 9.5 D Assessment and Plan (1) Crohns disease of small intestine: Status: Acute 1/ Recurrent flares of cohns disease primarily of small bowel inspite of current therapies. SHe really needs to be on biologic otherwise she is at high risk of complications such as fistula, stricture, perforation and penetrating disease. She had initiated discussion with Dr Martinez on starting humira and is awaiting to start this. she is at least 5 yrs out from her renal cell ca so anti TNF shoudl be ok. She is an ex smoker, not smoked for years. PLAN: 1/ Cont Solumedrol 20 mg q 8 h for 48 hr then transition to PO taper wih pred 40 mg 2/ f/u with Dr martinez for starting humira 3/ chech for c diff 4/ would give cipor and flagyl ABX, PO is ok, due to high risk of bacterial translocation and concomitant anti inflammatory action 5/ DVT prophylaxis due to v high risk of venous clots Procedures Date of Service Date of Service: 06/18/21
--- NOTE | 2021-06-18 11:23 | HO.PM.IMPN ---
Subjective Subjective Date of Service: 06/18/21 Interval History: seen and examined pain improving, requesting to advance diet no diarrhea Review of Systems Review of Systems: Yes all other systems are reviewed and are negative Constitutional Constitutional: Denies chills and Denies fever(s) Cardiovascular Cardiovascular: Denies chest pain Respiratory Respiratory: Denies cough Gastrointestinal Gastrointestinal: Reports abdominal pain Physical Exam Vital Signs: Vital Signs: Last Vital Signs Temp 96.7 F L 06/18/21 07:37 Pulse 61 06/18/21 07:37 Resp 19 06/18/21 07:37 BP 111/60 06/18/21 07:37 Pulse Ox 95 06/18/21 07:37 Body Mass Index 31.3 Const: General: healthy appearing, comfortable, no acute distress and alert Nutritional Appearance: well nourished Orientation/consciousness: patient oriented x3 HENMT: Head: Yes normocephalic and Yes atraumatic Eyes: Sclerae: sclerae normal Chest: Chest palpation & inspection: normal inspection of the chest Resp: Effort & Inspection: normal respiratory effort and no respiratory distress Auscultation: clear to auscultation bilaterally Cardio: Rate: regular rate Rhythm: regular rhythm GI: Other: primarily tender in lower abdomen, no rebound, non-distended Palpation (GI): Soft to palpation and nontender Skin: General skin exam: no rashes or lesions noted Neuro: General: patient oriented x3 Cranial nerves: Yes CN's II-XII intact bilaterally and Yes Bilaterally intact EOM present Extrem: General: Yes normal to inspection Objective Data Current Medications Generic Name Dose Route Start Last Admin Trade Name Freq PRN Reason Stop Dose Admin Acetaminophen 650 mg 06/17/21 11:57 Acetaminophen 325 Mg Tablet PO Q6H PRN Pain, Mild (Pain Scale 1-3) Dicyclomine HCl 10 mg 06/17/21 13:00 06/18/21 07:42 Dicyclomine Hcl 10 Mg Capsule PO 10 mg QID BENJAMIN Administration Docusate Sodium 100 mg 06/17/21 11:57 Docusate Sodium 100 Mg Capsule PO DAILY PRN Constipation Enoxaparin Sodium 40 mg 06/17/21 12:00 06/17/21 12:09 Enoxaparin Sodium 40 Mg/0.4 Ml Syringe SUBCUT 40 mg Q24H BENJAMIN Administration Escitalopram Oxalate 10 mg 06/18/21 09:00 06/18/21 07:42 Escitalopram Oxalate 10 Mg Tablet PO 10 mg DAILY BENJAMIN Administration Hydromorphone HCl 0.5 mg 06/17/21 14:47 06/18/21 10:32 Hydromorphone Hcl 0.5 Mg/0.5 Ml Syringe IVPUSH 0.5 mg Q4H PRN Administration Pain, Severe (Pain Scale 7-10) Lidocaine 1 patch 06/17/21 11:57 06/18/21 07:43 Lidocaine 4 % Patch Adh..Patch TRANSDERMA 1 patch DAILY BENJAMIN Administration Protocol Lorazepam 1 mg 06/17/21 11:57 06/17/21 23:51 Lorazepam 1 Mg Tablet PO 1 mg TID PRN Administration anxiety Methylprednisolone Sodium Succinate 40 mg 06/17/21 18:00 06/18/21 09:26 Methylprednisolone Sod Succ 40 Mg/Ml Vial IVPUSH 40 mg Q8H BENJAMIN Administration Non-Formulary Medication 3 mg 06/17/21 11:57 Eszopiclone PO BEDTIME PRN insomnia Non-Formulary Medication 1,000 mg 06/17/21 15:00 Mesalamine [Pentasa] PO TID BENJAMIN Omeprazole 20 mg 06/18/21 09:00 06/18/21 07:42 Omeprazole 20 Mg Capsule.Dr PO 20 mg DAILY BENJAMIN Administration Ondansetron HCl 4 mg 06/17/21 11:57 06/18/21 09:25 Ondansetron Hcl 4 Mg/2 Ml Vial IVPUSH 4 mg Q8H PRN Administration Nausea and Vomiting Sodium Chloride 3 ml 06/17/21 16:00 06/18/21 07:42 0.9 % Sodium Chloride Flush 3 Ml Syringe IVFLUSH Not Given QSHIFT BENJAMIN Sumatriptan Succinate 50 mg 06/17/21 11:57 06/17/21 17:13 Sumatriptan Succinate 50 Mg Tablet PO 50 mg DAILY MRX1 PRN Administration Migraine Headache Tramadol HCl 50 mg 06/17/21 11:57 06/18/21 07:42 Tramadol Hcl 50 Mg Tablet PO 50 mg TID PRN Administration pain Labs CBC & Chem 7: 06/18/21 06:07 06/18/21 06:07 Labs: Laboratory Results - last 24 hr 06/17/21 06/18/21 06/18/21 11:22 06:07 06:07 MCV 94.7 MCH 30.2 MCHC 31.9 RDW 13.9 Plt Count 285 MPV 9.9 Absolute Nucleated RBC 0.000 Nucleated RBC % (auto) 0.0 Anion Gap 15 Estim Creat Clear Calc 105.4 Estimated GFR > 60 Random Glucose 105 Calcium 9.5 D COVID-19 ([facility]) Negative COVID-19 Clin Com See Note Assessment and Plan (1) Crohns disease of small intestine: Status: Acute Assessment and Plan: This is a 45 year old female with history of crohns disease who presents to the ED with abdominal pain, admitted for crohns flare intractable abdominal pain secondary to Crohn's disease/crohns flare improving, will advance diet CT similar to previous one from 05/01 - will switch prednisone to IV Solu-Medrol - continue dicyclomine, pentasa - seen by GI, rec to add abx - stool studies pending - pain control anxiety and depression - continue home escitaloparm, ativan DVT prophylaxis:? Lovenox code status - full code attending: Dr. Valenzuela Quality Stroke Does the patient have a stroke diagnosis?: No VTE Prior VTE?: No VTE Risk Level:: Medical - moderate - high VTE Device Contraindication: Treatment Not Indicated VTE Drug Contraindication: N/A - Med Ordered
--- NOTE | 2021-06-18 11:53 | MHC.CM.PN ---
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 ELECTRONIC MEDICAL RECORD REVIEWED AND CASE DISCUSSED WITH STAFF NURSE AND HOSPITALIST,EVALUATED BY THE GASTRO-ENTEROLOGIST FOR RECURRENT FLARES OF HER CROHNS DISEASE OF THE SMALL BOWEL SHE HAS INIATED DISCUSSION WITH DR SALDANA AND WILL BE STARTING ON [place]UM[place] SOON PLAN PER HOSPITALSIT PATIENT SEEM S TO BE IMPROVING AND WILL ADVANCE DIET, CT SCAN OF ABDOMEN REMAINS THE Same from the one done 04/21/21 PLAN TO SWITCH TO IV SOLU-MEDROL, CONTINUE DICYCLOMINE AND PENTASA, STOOL STUDIES PENDING PAIN CONTROL WITH ANALGESICS [facility] PLAN HOME NO SERVICES PCP AND GI FOLLOW UP WITH DR SALDANA TRANSPORTATION FAMILY SELF RESUMNPTION OF HER MENTAL HEALTH COUNSELING
[2021-06-18] MEDS: Enoxaparin Sodium 40 MG/0.4 ML SYRINGE SUBCUT (12:39)
[2021-06-18] MEDS: metroNIDAZOLE/NS 500 MG/100 ML PIGGYBACK 100 MG IV ×2 (12:40→20:00)
[2021-06-18 15:12] VITALS: BP 119/76; PULSE 77; RESP 18; TEMP 36.6; O2SAT 97
[2021-06-18] MEDS: LORazepam 1 MG TABLET PO ×2 (15:54→22:42)
[2021-06-18] MEDS: 0.9 % Sodium Chloride Flush 3 ML SYRINGE IVFLUSH (15:54)
[2021-06-18 19:03] VITALS: BP 134/72; PULSE 72; RESP 18; TEMP 36.8; O2SAT 95
[2021-06-18 22:43] VITALS: BP 129/75; PULSE 81; RESP 18; TEMP 36.2; O2SAT 95
[2021-06-19] MEDS: methylPREDNISolone Sod Succ 40 MG/ML VIAL IVPUSH (01:33)
[2021-06-19] MEDS: 0.9 % Sodium Chloride Flush 3 ML SYRINGE IVFLUSH ×2 (02:24→08:23)
[2021-06-19] MEDS: HYDROmorphone HCl 0.5 MG/0.5 ML SYRINGE IVPUSH ×2 (02:40→08:23)
[2021-06-19 03:59] VITALS: BP 97/59; PULSE 62; RESP 16; TEMP 36.4; O2SAT 96
[2021-06-19] MEDS: metroNIDAZOLE/NS 500 MG/100 ML PIGGYBACK 100 MG IV ×2 (04:57→12:10)
[2021-06-19 07:53] VITALS: BP 116/71; PULSE 85; RESP 18; TEMP 36.7; O2SAT 95
[2021-06-19] MEDS: Dicyclomine HCl 10 MG CAPSULE PO ×2 (08:23→12:14)
[2021-06-19] MEDS: Omeprazole 20 MG CAPSULE.DR PO (08:23)
[2021-06-19] MEDS: Escitalopram Oxalate 10 MG TABLET PO (08:23)
[2021-06-19] MEDS: Lidocaine 4 % Patch ADH..PATCH 1 PATCH TRANSDERMA (08:24)
[2021-06-19] MEDS: Acetaminophen 325 MG TABLET 650 MG PO (10:59)
[2021-06-19] MEDS: Enoxaparin Sodium 40 MG/0.4 ML SYRINGE SUBCUT (11:00)
[2021-06-19] MEDS: oxyCODONE HCl Immed Release 5 MG TABLET PO (11:00)
[2021-06-19] MEDS: LORazepam 1 MG TABLET PO (11:00)
[2021-06-19 11:46] VITALS: BP 118/69; PULSE 85; RESP 18; TEMP 36.7; O2SAT 95
--- NOTE | 2021-06-19 11:50 | MHC.CM.PN ---
CURRENTLY WAITING FOR GI FOLLOW UP CASE MANAGEMENT FOLLOWING
--- NOTE | 2021-06-19 13:13 | HO.PM.IMPN ---
Subjective Subjective Date of Service: 06/19/21 Interval History: Patient complaining of persistent abdominal pain at times worse, usually worse after eating, no diarrhea passing flatus, tolerating diet, no fevers no chills, complaining of nausea no vomiting. Review of Systems General no headache, no dizziness no fever chills. CVS no chest pain, no palpitation. Respiratory no cough, no sob. Gastrointestinal nausea, no vomiting, lower abdominal pain Physical Exam Vital Signs: Vital Signs: Last Vital Signs Temp 98.1 F 06/19/21 11:46 Pulse 85 06/19/21 11:46 Resp 18 06/19/21 11:46 BP 118/69 06/19/21 11:46 Pulse Ox 95 06/19/21 11:46 Body Mass Index 31.3 General sitting comfortably in no acute distress. Neck is supple, no JVD. CVS regular rate rhythm, Respiratory lungs clear to auscultation, no respiratory distress, no wheeze, no rhonchi. Gastrointestinal abdomen soft, mild tenderness left lower quadrant, no guarding , no rigidity. Extremities no edema. Neuro nonfocal Skin no rash Objective Data Current Medications Generic Name Dose Route Start Last Admin Trade Name Freq PRN Reason Stop Dose Admin Acetaminophen 650 mg 06/17/21 11:57 06/19/21 10:59 Acetaminophen 325 Mg Tablet PO 650 mg Q6H PRN Administration Pain, Mild (Pain Scale 1-3) Dicyclomine HCl 10 mg 06/17/21 13:00 06/19/21 12:14 Dicyclomine Hcl 10 Mg Capsule PO 10 mg QID BENJAMIN Administration Docusate Sodium 100 mg 06/17/21 11:57 Docusate Sodium 100 Mg Capsule PO DAILY PRN Constipation Enoxaparin Sodium 40 mg 06/17/21 12:00 06/19/21 11:00 Enoxaparin Sodium 40 Mg/0.4 Ml Syringe SUBCUT 40 mg Q24H BENJAMIN Administration Escitalopram Oxalate 10 mg 06/18/21 09:00 06/19/21 08:23 Escitalopram Oxalate 10 Mg Tablet PO 10 mg DAILY BENJAMIN Administration Metronidazole 500 mg in 100 mls @ 100 mls/hr 06/18/21 12:00 06/19/21 12:10 Flagyl IV 100 mls/hr Q8H BENJAMIN Administration Lidocaine 1 patch 06/17/21 11:57 06/19/21 08:24 Lidocaine 4 % Patch Adh..Patch TRANSDERMA 1 patch DAILY BENJAMIN Administration Protocol Lorazepam 1 mg 06/17/21 11:57 06/19/21 11:00 Lorazepam 1 Mg Tablet PO 1 mg TID PRN Administration anxiety Non-Formulary Medication 3 mg 06/17/21 11:57 Eszopiclone PO BEDTIME PRN insomnia Non-Formulary Medication 1,000 mg 06/17/21 15:00 Mesalamine [Pentasa] PO TID BENJAMIN Omeprazole 20 mg 06/18/21 09:00 06/19/21 08:23 Omeprazole 20 Mg Capsule. PO 20 mg DAILY BENJAMIN Administration Ondansetron HCl 4 mg 06/17/21 11:57 06/18/21 09:25 Ondansetron Hcl 4 Mg/2 Ml Vial IVPUSH 4 mg Q8H PRN Administration Nausea and Vomiting Oxycodone HCl 5 mg 06/19/21 10:09 06/19/21 11:00 Oxycodone Hcl Immed Release 5 Mg Tablet PO 5 mg Q6H PRN Administration Pain, Severe (Pain Scale 7-10) Sodium Chloride 3 ml 06/17/21 16:00 06/19/21 08:23 0.9 % Sodium Chloride Flush 3 Ml Syringe IVFLUSH 3 ml QSHIFT BENJAMIN Administration Sumatriptan Succinate 50 mg 06/17/21 11:57 06/17/21 17:13 Sumatriptan Succinate 50 Mg Tablet PO 50 mg DAILY MRX1 PRN Administration Migraine Headache Labs CBC & Chem 7: 06/18/21 06:07 06/18/21 06:07 Assessment and Plan (1) Crohns disease of small intestine: Status: Acute (2) Crohn's colitis: Status: Acute Assessment and Plan: 45 year old female with history of crohns disease who presents to the ED with abdominal pain, admitted for crohns flare intractable abdominal pain secondary to Crohn's disease/crohns flare improving, persistent lower abdominal pain, tolerating diet, no over night acute issues CT similar to previous one from 05/01 on IV Solu-Medrol, will switch to by mouth prednisone 40 mg daily, continue dicyclomine, pentasa, Seen by Dr. Bernardo he recommend antibiotics patient placed on IV Flagyl stool studies not collected since had no diarrhea, will switch IV Dilaudid to by mouth oxycodone and DC Ultram If patient remains stable today will be discharged home on tapering dose of steroids to have outpatient follow-up with Dr. Alexis. anxiety and depression continue home escitaloparm, ativan, no acute exacerbation DVT prophylaxis:? Lovenox code status - full code Quality Stroke Does the patient have a stroke diagnosis?: No VTE Prior VTE?: No VTE Risk Level:: Medical - moderate - high VTE Device Contraindication: Treatment Not Indicated VTE Drug Contraindication: N/A - Med Ordered
[2021-06-19 13:44] VITALS: BP 143/83; PULSE 77
[2021-06-19] MEDS: predniSONE 20 MG TABLET 40 MG PO (14:47)
--- NOTE | 2021-06-19 14:47 | MHC.CLN ---
NUTRITION CONSULT PROVIDED HANDOUT AND DISCUSSED FOODS APPROPRIATE WITH CROHN'S INCLUDING LOWER FIBER/RESIDUE FOODS. PATIENT HAS HAD CROHN'S FOR 20 YEARS AND STATED THAT SOMETIMES A FOOD WILL BOTHER HER, AND OTHER TIMES THE SAME FOOD IS FINE. ASKED ABOUT KEEPING A FOOD DIARY TO MONITOR FOODS AND SYMPTOMS. STATED THAT SHE HAS IN THE PAST AND WAS NOT HELPFUL. HANDOUT PROVIDED FROM [facility] [employer].
--- NOTE | 2021-06-19 15:42 | PM.DS ---
DS: Providers Provider Date of Service: 06/19/21 Date of admission: 06/17/21 11:43 Primary care physician: Jaswant Frank MD Consults: 06/18/21 10:55 Consult to Gastroenterology Routine Consulting Provider: Corinna Avila Reason for consultation: crohn's disease flare; abdominal pain Has provider been notified: No DS: Diagnosis Discharge Diagnosis (1) Crohns disease of small intestine: Status: Acute (2) Crohn's colitis: Status: Acute DS: Medications Discharge Medications Home Medications: Home Medications Medication Instructions Recorded Confirmed levonorgestrel 20 mcg/24 hours (6 1 device INTRAUTERINE ONCE 10/04/20 06/17/21 yrs) 52 mg intrauterine device (Mirena) omeprazole 20 mg capsule,delayed 20 mg PO DAILY 12/05/20 06/17/21 release mesalamine 500 mg 1,000 mg PO TID 04/25/21 06/17/21 capsule,controlled release (Pentasa) sumatriptan succinate 100 mg tablet 0.5 tab PO DAILY MRX1 PRN 04/25/21 06/17/21 dicyclomine 10 mg capsule [id number] mg PO QID 05/26/21 06/17/21 prednisone 5 mg tablet See Taper PO DAILY 05/26/21 06/17/21 Previous Rx's Medication Instructions Recorded escitalopram oxalate 10 mg tablet 10 mg PO DAILY 30 Days #30 tab 03/29/21 acetaminophen 325 mg tablet 650 mg PO Q8H PRN 30 Days tab 04/29/21 eszopiclone 3 mg tablet 3 mg PO BEDTIME PRN 30 Days #30 tab 05/01/21 ondansetron 4 mg disintegrating 4 mg PO Q8H PRN 5 Days #20 tab 05/05/21 tablet lorazepam 1 mg tablet 1 mg PO TID PRN 30 Days #90 tab 05/25/21 metronidazole 500 mg tablet 500 mg PO BID #14 tab 06/19/21 (Flagyl) oxycodone 5 mg tablet 5 mg PO Q6H PRN #24 tab 06/19/21 DS: Summary Hospital Course Hospital Course: History of presenting illness Chief Complaint: abdominal pain This is a 45-year-old female with a history of Crohn's disease who presents to the emergency department with abdominal pain.? Patient had 2 admissions in April for abdominal pain secondary to Crohn's disease.? Most recently she was discharged home on May 05.? She was discharged home on a prednisone taper.? She has had difficulty tapering down the prednisone and has had to go back up on her dose.? She is now down to 20 mg daily.? She is a post to be starting on Humira but has not yet received her 1st dose.? the past several days she has been having an increase in her abdominal pain and abdominal spasms and states that she is unable to tolerate the pain any longer. ? Her abdominal pain is primarily located in her lower abdomen. She has loose stools daily but denies any bloody diarrhea.? She denies any associated fever or chills.? She has had associated nausea and some intermittent dry heaving but no vomiting.? In the emergency department she had a CT scan of abdomen which appeared unchanged from previous on 05/01.? Lab work was significant for leukocytosis of 12.7 and was otherwise unremarkable.? She required multiple doses of IV narcotics for adequate pain control. 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 History of renal cell cancer (~2014) Insomnia Intractable nausea and vomiting Lumbar degenerative disc disease Migraine Osteoarthritis of hips, bilateral Overweight (BMI 25.0-29.9) Hospital course 45 year old female with history of crohns disease presents to the ED with abdominal pain, admitted for crohns flare, patient treated with IV fluids, IV Solu Medrol ,IV Flagyl and analgesics Her diet was gradually advanced that she is tolerating well, her pain does get worse after eating therefore she has been recommended to follow low residue diet and to take small meals, she was seen by Cartoon Artist,Since patient electrolytes are stable CT scan of the abdomen and pelvis unchanged from prior study therefore she is being discharged home on prednisone 40 mg daily and recommended to taper 5 mg Q weekly, she has been recommended to continue all home medications including Pentasa and dicyclomine, she has been given a small supply of oxycodone for pain control, she is waiting for insurance approval for Humira recommended to follow-up with Dr. Alexis In regard to?anxiety and depression she has been continued on home medication ? Time Spent with Patient Time attestation: Total time spent providing and/or coordinating discharge services: Discharge coordination time: Greater than 30 minutes Quality: Stroke Does the patient have a stroke diagnosis?: No Physical Exam Vital Signs: Vital Signs: Last Vital Signs Temp 98.1 F 06/19/21 11:46 Pulse 77 06/19/21 13:44 Resp 18 06/19/21 11:46 BP 143/83 H 06/19/21 13:44 Pulse Ox 95 06/19/21 11:46 Body Mass Index 31.3 General sitting comfortably in no acute distress.? Neck is supple, no JVD. CVS? regular rate rhythm, Respiratory lungs clear to auscultation, no respiratory distress, no wheeze, no rhonchi. Gastrointestinal abdomen soft, mild tenderness left lower quadrant, no guarding , no rigidity. Extremities no edema. Neuro nonfocal Skin no rash Discharge Plan Discharge Patient Disposition: Home, Self-Care Discharge Diagnosis: Crohn's flare Referrals: Jasawnt Frank MD [Primary Care Provider] - 07/03/21 9:00 am (You have a primary care follow up appointment on July 03 at 9:00 am. Please call your doctor's office if you need to reschedule. ) Discharge Medications: New oxycodone 5 mg Tablet 5 mg PO Q6H PRN (Reason: Pain, Severe (Pain Scale 7-10)) Qty: 24 RF: 0 metronidazole [Flagyl] 500 mg tablet 500 mg PO BID Qty: 14 RF: 0 Continued escitalopram oxalate 10 mg tablet 10 mg PO DAILY 30 Days Qty: 30 RF: 2 eszopiclone 3 mg tablet 3 mg PO BEDTIME PRN (Reason: insomnia) 30 Days Qty: 30 RF: 1 lorazepam 1 mg tablet 1 mg PO TID PRN (Reason: anxiety) 30 Days Qty: 90 RF: 0 sumatriptan succinate 100 mg tablet 0.5 tab PO DAILY MRX1 PRN (Reason: Migraine Headache) RF: 0 Pentasa 500 mg Capsule, Extended Release 1,000 mg PO TID RF: 0 acetaminophen 325 mg Tablet 650 mg PO Q8H PRN (Reason: Pain, Mild (Pain Scale 1-3)) 30 Days RF: 0 ondansetron 4 mg tablet,disintegrating 4 mg PO Q8H PRN (Reason: nausea and vomiting) 5 Days Qty: 20 RF: 0 Mirena 20 mcg/24 hours (6 yrs) 52 mg intrauterine device 1 device intrauterine ONCE RF: 0 omeprazole 20 mg capsule,delayed release(DR/EC) 20 mg PO DAILY RF: 0 prednisone 5 mg tablet See Taper mg PO DAILY RF: 0 dicyclomine 10 mg capsule [id number] mg PO QID RF: 0 Discontinued tramadol 50 mg tablet 50 mg PO TID PRN (Reason: pain) 30 Days Qty: 90 RF: 0 Discharge Orders: Discharge Order (Routine); Ordered 06/19/21 Ordered By: Shelby Valenzuela Diet: advance to usual diet Activity on Discharge: As tolerated Stand Alone Forms: Patient Portal Discharge page Care Plan Goals: Crohn's flare, take prednisone 40 mg by mouth daily reduce by 5 mg every week, take Flagyl 500 mg twice daily, continue Pentasa and all home medication Health Concerns: Crohn's disease Plan of Treatment: Outpatient follow-up with primary care physician 1-2 weeks, outpatient follow-up with Dr. Alexis in 1-2 weeks Assessment: as above
[2021-06-19 15:44] VITALS: BP 124/72; PULSE 65; RESP 18; TEMP 36.3; O2SAT 96
--- NOTE | 2021-06-19 15:45 | MHC.CM.PN ---
PATIENT IS DISCHARGED HOME - SELF CARE. RN AWARE OF PLAN.
[2021-06-19] MEDS: Mesalamine 250 MG CAPSULE.ER 1000 MG PO (16:13)
== END 2021-06-19 16:34 | disposition home or self-care (01) | DRG 245 ==
LOC: HO.ED 11:05 → HO.EDOVER 11:52 → HO.S3 12:08
PROVIDERS: Admitting Provider Physician Assistant Medical; Emergency Provider Emergency Medicine; PCP Internal Medicine; Visit Provider Hospitalist
DX: K50.00 Crohn's disease of small intestine without complications (principal); F32.9 Major depressive disorder, single episode, unspecified; F41.9 Anxiety disorder, unspecified; Z20.822 Contact with and (suspected) exposure to COVID-19; Z96.642 Presence of left artificial hip joint; Z85.05 Personal history of malignant neoplasm of liver; Z88.5 Allergy status to narcotic agent; Z79.52 Long term (current) use of systemic steroids; Z87.891 Personal history of nicotine dependence; Z79.899 Other long term (current) drug therapy
CPT/HCPCS: 36415; 74177; 80048; 80053; 83690; 84702; 85025; 85027; 87635; 99285; J1170; J1650; J2060; J2270; J2405; J2920; J2930; Q9967

== ENCOUNTER 2021-07-06 23:36 | Emergency (ER) | payer OTHER, SELFPAY ==
[2021-07-06 23:51] VITALS: BP 127/82; PULSE 105; RESP 22; TEMP 36.4; O2SAT 99; BMI 30.2
[2021-07-07 03:00] VITALS: BP 123/78; PULSE 87; RESP 18; O2SAT 97
[2021-07-07 03:22] LABS: Basophils Percent Auto 0.2 % (0-2); Eosinophils Absolute Auto 0.1 X10*3/uL (0.0-0.4); Eosinophils Percent Auto 0.9 % (0-4); Hemoglobin 14.4 g/dl (12.0-16.0); Imm Gran Abs Auto 0.13 X10*3/uL (0.00-0.03); Imm Gran Pct Auto 1.1 % (0.0-0.4); Lymphocytes Absolute Auto 1.9 X10*3/uL (1.2-4.9); Lymphocytes Percent Auto 15.4 % (20-40); MANUAL DIFF FLAG NO; Mean Corpuscular HGB Conc 32.7 g/dl (31.0-35.0); Mean Corpuscular Hemoglobin 30.7 pg (27.0-33.0); Mean Corpuscular Volume 93.8 fL (80-98); Mean Platelet Volume 9.6 fL (9.4-12.3); Monocytes Percent Auto 7.8 % (2-11); Neutrophils Absolute Auto 9.2 X10*3/uL (2.0-8.3); Neutrophils Percent Auto 74.6 % (45-73); Platelet Count 283 X10*3/uL (160-400); Red Blood Count 4.69 X10*6/uL (4.20-5.50); Red Cell Distribution Width 14.7 % (11.0-16.0); White Blood Count 12.4 X10*3/uL (4.8-10.8)
[2021-07-07 03:50] LABS: Alanine Aminotransferase 19 U/L (0-31); Albumin Level 3.9 g/dL (3.5-5.0); Alkaline Phosphatase 81 U/L (39-117); Anion Gap 17 (12-20); Aspartate Amino Transferase 20 U/L (5-31); Bilirubin Total 0.5 mg/dL (0.0-1.0); Blood Urea Nitrogen 7 mg/dL (9-16); Calcium 9.8 mg/dL (8.4-10.2); Carbon Dioxide 23 mmol/L (22-29); Chloride 107 mmol/L (96-108); Creatinine Clr Calc Pharmacy 87.4; Estimated Glomerular Filt Rate > 60; Glucose Random 102 mg/dL (60-115); Potassium 4.6 mmol/L (3.3-5.1); Sodium 142 mmol/L (135-145)
[2021-07-07] MEDS: ondansetron HCL 4 MG/2 ML VIAL IVPUSH ×2 (03:55→05:02)
[2021-07-07] MEDS: 0.9 % Sodium Chloride 1,000 ML 999 ML IV (03:55)
[2021-07-07] MEDS: LORazepam 2 MG/ML VIAL 1 MG IVPUSH (03:55)
[2021-07-07] MEDS: HYDROmorphone HCl 1 MG/ML SYRINGE IVPUSH ×3 (03:56→07:13)
[2021-07-07 03:57] LABS: Glucose Urine UA NEG (NEG); Leukocyte Esterase Urine 1+ (NEG); Nitrite Urine NEG (NEG); PH 5.5 (5.0-8.0); Specific Gravity - Urine >= 1.030 (1.005-1.025); UACC Culture Trigger YES; Urine Blood 2+ (NEG); Urine Ketones NEG (NEG); Urine Protein 1+ MG/DL (NEG-TRACE)
[2021-07-07 04:06] LABS: Lipase 32 U/L (8-78)
[2021-07-07 04:20] LABS: Color Urine DARK YELLOW
[2021-07-07 04:21] LABS: Appearance Urine CLOUDY; Bacteria Urine 2+ /LPF; Calcium Oxalate Crystals Urine 3+ /LPF; Mucus Urine 2+ /LPF; Squamous Epithelial Cell Urine 2+ /LPF
--- NOTE | 2021-07-07 04:56 | ED.ABDPAIN ---
HPI - Abdominal Pain General Chief Complaint: Abdominal Pain Stated Complaint: stomach pain Time Seen by Provider: 07/07/21 03:49 Source: patient Mode of arrival: ambulatory Limitations: no limitations History of Present Illness HPI narrative: 45-year-old female with history of Crohn's disease who presents emergency department for evaluation of abdominal pain. Patient states that she has been having a Crohn's flare up for the past 3 months. The patient states that she is on prednisone and was tapering to off the head to go up in her dose secondary to her flare-up. She also states that she started Humira recently. The patient presents emergency department for abdominal pain. She states she is having pain in her lower abdomen. The pain is worse in the right lower quadrant but radiates to the left lower quadrant and she states that wraps around her back like a snake. The pain is a constant, sharp pain which is worse with movement. Patient denied fever but she did have chills. She states that yesterday she had 4 episodes of emesis with no blood in the vomit. The patient also had 12 episodes of diarrhea yesterday, she did not have any blood in her diarrheal stools. The patient states that her pain was severe and was 10/10 therefore she came to the emergency department for evaluation. In reviewing her records, the patient was last seen in the emergency department on 06/17/2021. At that time she had a CT scan of her abdomen pelvis which revealed diffuse mural thickening involving the terminal ileum and extending to the ileocecal valve similar to previous studies suggestive of Crohn's disease or backwash ileitis. Related Data Home Medications Medication Instructions Recorded Confirmed levonorgestrel 20 mcg/24 hours (6 1 device INTRAUTERINE ONCE 10/04/20 07/03/21 yrs) 52 mg intrauterine device (Mirena) omeprazole 20 mg capsule,delayed 20 mg PO DAILY 12/05/20 07/03/21 release mesalamine 500 mg 1,000 mg PO TID 04/25/21 07/03/21 capsule,controlled release (Pentasa) sumatriptan succinate 100 mg tablet 0.5 tab PO DAILY MRX1 PRN 04/25/21 07/03/21 dicyclomine 10 mg capsule [id number] mg PO QID 05/26/21 07/03/21 prednisone 5 mg tablet See Taper PO DAILY 05/26/21 07/03/21 tramadol 50 mg tablet 50 mg PO BID-TID PRN 07/03/21 07/03/21 Previous Rx's Medication Instructions Recorded escitalopram oxalate 10 mg tablet 10 mg PO DAILY 30 Days #30 tab 03/29/21 acetaminophen 325 mg tablet 650 mg PO Q8H PRN 30 Days tab 04/29/21 ondansetron 4 mg disintegrating 4 mg PO Q8H PRN 5 Days #20 tab 05/05/21 tablet eszopiclone 3 mg tablet 3 mg PO BEDTIME PRN 30 Days #30 tab 07/03/21 lorazepam 1 mg tablet 1 mg PO TID PRN 30 Days #90 tab 07/03/21 tramadol 50 mg tablet 50 mg PO TID PRN 30 Days #90 tab 07/03/21 Allergies Allergy/AdvReac Type Severity Reaction Status Date / Time meperidine [From Demerol] Allergy Severe SWELLING,RASH,THROAT Verified 07/03/21 09:32 CLOSES latex [LATEX] Allergy Mild RASH Verified 07/03/21 09:32 codeine [Codeine] AdvReac Intermediate NAUSEA/VOMITING, Verified 07/03/21 09:32 GI upset/vomiting Fish Containing Products AdvReac Unknown NAUSEA/VOMI Verified 07/03/21 09:32 [Fish Product Derivatives] TING trazodone AdvReac Intermediate worsening Uncoded 07/03/21 09:32 anxiety symptoms Review of Systems Review of Systems Yes all other systems are reviewed and are negative Physical Exam Vital Signs: Vital Signs: Last Vital Signs Temp 97.5 F 07/06/21 23:51 Pulse 82 07/07/21 05:04 Resp 18 07/07/21 05:04 BP 133/83 07/07/21 05:04 Pulse Ox 98 07/07/21 05:04 Body Mass Index 30.2 Const: General: cooperative and no acute distress Orientation/consciousness: oriented to person and oriented to place Limitations: no limitations HENMT: Head: Yes normal to inspection, Yes normocephalic and Yes atraumatic Ears: external ears normal General nose exam: Normal external nose present Face and sinus: Yes normal facial exam Mouth: Normal oral and palatal mucosa present Throat: Yes posterior oropharynx normal Eyes: General: appearance normal, both eyes and all related structures Pupils: Equal, round and reactive pupils present Neck: Neck: Yes normal visual inspection, Yes no lymphadenopathy, Yes trachea midline and Yes supple Chest: Chest palpation & inspection: normal inspection of the chest and normal palpation of entire chest wall Resp: Effort & Inspection: normal respiratory effort and able to speak in complete sentences Auscultation: clear to auscultation bilaterally Cardio: Rate: regular rate Rhythm: regular rhythm Heart sounds: S1 normal heart sound present, S2 normal heart sound present and no murmurs GI: Inspection: Yes normal to inspection Palpation (GI): Soft to palpation, Tenderness to palpation present (GI) in the LLQ (Moderate), in the RLQ (Moderate) and suprapubicly (Moderate) and no guarding Auscultation: normal bowel sounds : General: Yes no CVA tenderness Back/Spine/Pelvis: Back: no CVA tenderness Skin: General skin exam: no rashes or lesions noted Neuro: General: oriented to person and oriented to place Cranial nerves: Yes CN's II-XII intact bilaterally and Yes Equal, round and reactive pupils present Cognition (Neuro): normal cognition Motor exam (neuro): 5/5 motor strength present throughout Extrem: General: Yes normal to inspection Psych: Appearance: grossly normal Speech and movement: Normal speech and movement present Affect: normal affect Attitude: cooperative Thought process: Normal thought process present Thought content: Normal thought content present Course Course Course Narrative: 45-year-old female who presents emergency department for evaluation of abdominal pain and a flare-up of her Crohn's disease. She states she has had a flare-up of her Crohn's disease over the last 3 months. She is on prednisone and also started Humira. Physical examination did reveal lower abdominal tenderness. The patient's laboratory evaluation was unremarkable. The patient's urinalysis a non clean catch urine and she is not having any urinary symptoms and I doubt that she has urinary tract infections the cause for pain. Patient's pain is consistent with her Crohn's disease. She was vomiting however this is resolved and she is having diarrhea therefore I do not think that she has a bowel obstruction. The patient will be treated with pain medications. She was given Zofran 4 mg IV, Dilaudid 1 mg IV and Ativan 1 mg IV. She was also ordered to get normal saline IV x1 L. 0502: The patient had only minimal improvement with the above treatment. She was ordered to get a another dose of Zofran 4 mg IV and Dilaudid 1 mg IV. 0651: The patient did get improvement with her 2nd dose of Dilaudid, the pain is down to 4/10, she will be given a 3rd dose of Dilaudid 1 mg IV and then discharged home. The patient was given verbal and printed instructions prior to discharge. The patient was advised to follow-up with her PCP in 2 days and to return to the emergency department if her symptoms get worse or if she develops any new symptoms that are concerning to her. MDM - Abdominal Pain Lab Data Result diagrams: 07/07/21 03:11 07/07/21 03:11 Labs: Lab Results 07/07/21 07/07/21 07/07/21 Range/Units 03:11 03:11 03:51 WBC 12.4 H (4.8-10.8) X10*3/uL RBC 4.69 (4.20-5.50) X10*6/uL Hgb 14.4 (12.0-16.0) g/dl Hct 44.0 (37-47) % MCV 93.8 (80-98) fL MCH 30.7 (27.0-33.0) pg MCHC 32.7 (31.0-35.0) g/dl RDW 14.7 (11.0-16.0) % Plt Count 283 (160-400) X10*3/uL MPV 9.6 (9.4-12.3) fL Immature Gran % (Auto) 1.1 H (0.0-0.4) % Neut % (Auto) 74.6 H (45-73) % Lymph % (Auto) 15.4 L (20-40) % [place] % (Auto) 7.8 (2-11) % Eos % (Auto) 0.9 (0-4) % Baso % (Auto) 0.2 (0-2) % Lymph # (Auto) 1.9 (1.2-4.9) X10*3/uL [place] # (Auto) 1.0 (0.1-1.2) X10*3/uL Eos # (Auto) 0.1 (0.0-0.4) X10*3/uL Baso # (Auto) 0.0 (0.0-0.2) X10*3/uL Abs Immat Gran (auto) 0.13 H (0.00-0.03) X10*3/uL Absolute Neuts (auto) 9.2 H (2.0-8.3) X10*3/uL Absolute Nucleated RBC 0.000 (0.0-0.012) X10*3/uL Nucleated RBC % (auto) 0.0 (0.0-0.2) /100WBC Sodium 142 (135-145) mmol/L Potassium 4.6 (3.3-5.1) mmol/L Chloride 107 (96-108) mmol/L Carbon Dioxide 23 (22-29) mmol/L Anion Gap 17 (12-20) BUN 7 L (9-16) mg/dL Creatinine 0.77 (0.5-1.4) mg/dL Estim Creat Clear Calc 87.4 Estimated GFR > 60 Random Glucose 102 (60-115) mg/dL Calcium 9.8 (8.4-10.2) mg/dL Total Bilirubin 0.5 (0.0-1.0) mg/dL AST 20 (5-31) U/L ALT 19 (0-31) U/L Alkaline Phosphatase 81 (39-117) U/L Total Protein 7.0 (6.5-8.0) g/dL Albumin 3.9 (3.5-5.0) g/dL Lipase 32 (8-78) U/L Urine Color DARK YELLOW Urine Appearance CLOUDY Urine pH 5.5 (5.0-8.0) Ur Specific [place] >= 1.030 H (1.005-1.025) Urine Protein 1+ H (NEG-TRACE) MG/DL Urine Glucose (UA) NEG (NEG) MG/DL Urine Ketones NEG (NEG) MG/DL Urine Blood 2+ H (NEG) Urine Nitrite NEG (NEG) Ur Leukocyte Esterase 1+ H (NEG) Urine RBC 5-9 H (0) /HPF Urine WBC 15-29 H (0-4) /HPF Ur Squamous Epith Cells 2+ /LPF Calcium Oxalate Crystal 3+ /LPF Urine Bacteria 2+ /LPF Urine Mucus 2+ /LPF Discharge Plan Discharge Clinical Impression: Abdominal pain, Crohn's disease involving terminal ileum Patient Disposition: Home, Self-Care Instructions: Crohn Disease (ED) Additional Instructions: Continue taking your medications as prescribed by your doctor. Follow-up with your doctor in 2 days. Please return to the emergency department if your symptoms get worse or if you develop any symptoms that are concerning to you. Prescriptions: No Action escitalopram oxalate 10 mg tablet 10 mg PO DAILY 30 Days Qty: 30 RF: 2 sumatriptan succinate 100 mg tablet 0.5 tab PO DAILY MRX1 PRN (Reason: Migraine Headache) RF: 0 Pentasa 500 mg Capsule, Extended Release 1,000 mg PO TID RF: 0 acetaminophen 325 mg Tablet 650 mg PO Q8H PRN (Reason: Pain, Mild (Pain Scale 1-3)) 30 Days RF: 0 ondansetron 4 mg tablet,disintegrating 4 mg PO Q8H PRN (Reason: nausea and vomiting) 5 Days Qty: 20 RF: 0 Mirena 20 mcg/24 hours (6 yrs) 52 mg intrauterine device 1 device intrauterine ONCE RF: 0 tramadol 50 mg tablet 50 mg PO BID-TID PRN (Reason: pain) RF: 0 eszopiclone 3 mg tablet 3 mg PO BEDTIME PRN (Reason: insomnia) 30 Days Qty: 30 RF: 1 lorazepam 1 mg tablet 1 mg PO TID PRN (Reason: anxiety) 30 Days Qty: 90 RF: 0 tramadol 50 mg tablet 50 mg PO TID PRN (Reason: pain) 30 Days Qty: 90 RF: 0 omeprazole 20 mg capsule,delayed release(DR/EC) 20 mg PO DAILY RF: 0 prednisone 5 mg tablet See Taper mg PO DAILY RF: 0 dicyclomine 10 mg capsule [id number] mg PO QID RF: 0 PMFSH Past Medical History [facility] Narrative: Social history: The patient denies tobacco use, she states she rarely drinks alcohol, she denies drug use. 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 History of renal cell cancer (~2014) Insomnia Intractable nausea and vomiting Lumbar degenerative disc disease Migraine Obesity (BMI 30-39.9) Osteoarthritis of hips, bilateral Overweight (BMI 25.0-29.9) Surgical History History of arthroplasty (~01/2012) History of cryosurgery (~04/20/15) History of intestinal surgery History of removal of calculus of renal pelvis through percutaneous nephrostomy (~10/2015) Family History Family History Father Crohn disease Migraine Mother HTN (hypertension) Vertigo Cervical cancer Maternal Grandmother HTN (hypertension) Hyperlipidemia Diabetes mellitus Paternal Grandfather Diabetes mellitus Other Mental health problem Social History Social History Household Members: Family Housing: House Do you presently have visiting nurse or other home services: No Alcohol intake: current Alcohol intake frequency: holidays/special occasions only Patient Tobacco Use Status: Former Tobacco user Tobacco use type: Cigarette e-Cigarette/Vaping Use: Former Use Second Hand Smoke Exposure: No Advance Directives: No Advance Directives Information Provided: Yes service: No Current occupational status: unemployed Gender identity: Female
[2021-07-07 05:04] VITALS: BP 133/83; PULSE 82; RESP 18; O2SAT 98
[2021-07-07 07:15] VITALS: BP 148/95; PULSE 99; RESP 16; O2SAT 97
== END 2021-07-07 07:21 | disposition home or self-care (01) ==
PROVIDERS: Emergency Provider Emergency Medicine Emergency Medical Services; PCP Internal Medicine
DX: K50.00 Crohn's disease of small intestine without complications (principal); R10.30 Lower abdominal pain, unspecified
CPT/HCPCS: 36415; 80053; 81001; 81003; 83690; 85025; 87086; 96361; 96374; 96375; 96376; 99284; J1170; J2060; J2405

== ENCOUNTER 2021-07-11 21:04 | Emergency (ER) | payer OTHER, SELFPAY ==
[2021-07-11 21:35] VITALS: BP 148/93; PULSE 69; RESP 17; TEMP 36.6; O2SAT 100; BMI 30.2
--- NOTE | 2021-07-11 22:58 | ED_ITS ---
HPI - Abdominal Pain General Chief Complaint: Abdominal Pain Stated Complaint: abd pain Time Seen by Provider: 07/11/21 22:40 Source: patient Mode of arrival: ambulatory Limitations: no limitations History of Present Illness HPI narrative: Patient comes emergency room complaining of abdominal pain. Patient is known to have Crohn's disease. Patient was started on Humira yesterday. Patient had 2 injections yesterday, 2 today. Patient states that since she started treatment she feels nauseous, increased abdominal discomfort, increased weakness, no rectal bleeding. Patient was supposed to pick up attendant prednisone today from the pharmacy but she was unable to do so because she was too weak to pick up attendant her meds Related Data Home Medications Medication Instructions Recorded Confirmed levonorgestrel 20 mcg/24 hours (6 1 device INTRAUTERINE ONCE 10/04/20 07/03/21 yrs) 52 mg intrauterine device (Mirena) omeprazole 20 mg capsule,delayed 20 mg PO DAILY 12/05/20 07/03/21 release mesalamine 500 mg 1,000 mg PO TID 04/25/21 07/03/21 capsule,controlled release (Pentasa) sumatriptan succinate 100 mg tablet 0.5 tab PO DAILY MRX1 PRN 04/25/21 07/03/21 dicyclomine 10 mg capsule [id number] mg PO QID 05/26/21 07/03/21 prednisone 5 mg tablet See Taper PO DAILY 05/26/21 07/03/21 tramadol 50 mg tablet 50 mg PO BID-TID PRN 07/03/21 07/03/21 Previous Rx's Medication Instructions Recorded escitalopram oxalate 10 mg tablet 10 mg PO DAILY 30 Days #30 tab 03/29/21 acetaminophen 325 mg tablet 650 mg PO Q8H PRN 30 Days tab 04/29/21 ondansetron 4 mg disintegrating 4 mg PO Q8H PRN 5 Days #20 tab 05/05/21 tablet eszopiclone 3 mg tablet 3 mg PO BEDTIME PRN 30 Days #30 tab 07/03/21 lorazepam 1 mg tablet 1 mg PO TID PRN 30 Days #90 tab 07/03/21 tramadol 50 mg tablet 50 mg PO TID PRN 30 Days #90 tab 07/03/21 hydromorphone 2 mg tablet 2 mg PO Q4-6H PRN #10 tab 07/07/21 (Dilaudid) tramadol 50 mg tablet 50 mg PO BID PRN #5 tab 07/12/21 Allergies Allergy/AdvReac Type Severity Reaction Status Date / Time meperidine [From Demerol] Allergy Severe SWELLING,RASH,THROAT Verified 07/11/21 21:35 CLOSES latex [LATEX] Allergy Mild RASH Verified 07/11/21 21:35 codeine [Codeine] AdvReac Intermediate NAUSEA/VOMITING, Verified 07/11/21 21:35 GI upset/vomiting Fish Containing Products AdvReac Unknown NAUSEA/VOMI Verified 07/11/21 21:35 [Fish Product Derivatives] TING trazodone AdvReac Intermediate worsening Uncoded 07/03/21 09:32 anxiety symptoms Review of Systems Review of Systems Constitutional : No Weight loss, No Fever, No Chills, No Night Sweats, complaining of worsening fatigue ENT/Mouth : No Hearing loss, No Ear Pain, No Nasal Congestion, No Sinus Pain, No Hoarseness, No sore throat, No Rhinorrhea, No Swallowing Difficulty Eyes: No Eye Pain, No Swelling, No Redness, No Foreign Body, No Discharge, No Vision Changes Cardiovascular : No Chest Pain, No SOB, No Dyspnea on Exertion, No Orthopnea, No Edema, No Palpitations Respiratory : No Cough, No Sputum, No Wheezing, No Smoke Exposure, No Dyspnea Gastrointestinal : Complaining of Nausea, No Vomiting, chronic Diarrhea, No Constipation, complaining of diffuse abdominal pain, worse left lower quadrant, No Hematochezia, No Melena Genitourinary : no irregular bleeding, No Dysuria, No Urinary Frequency, No Hematuria, No Urinary Incontinence, No Urgency, No Flank Pain, No Urinary Flow Changes, No Hesitancy Musculoskeletal : No joint pain, No Myalgias, No Joint Swelling Skin : No Skin Lesions, No rash Neuro : No Weakness, No Numbness, No Paresthesias, No Loss of Consciousness, No Dizziness, No Headache Psych : No Anxiety/Panic, No Depression, No SI/HI/AH/VH, No Social Issues, Heme/Lymph: No Bruising, No Bleeding,No Lymphadenopathy Endocrine : No Polyuria, No Polydipsia, No Temperature Intolerance Physical Exam 2 Vital Signs: Vital Signs: Last Vital Signs Temp 97.8 F 07/11/21 21:35 Pulse 69 07/11/21 21:35 Resp 17 07/11/21 21:35 BP 148/93 H 07/11/21 21:35 Pulse Ox 100 07/11/21 21:35 Body Mass Index 30.2 Const: Other: Appearance: Alert. Oriented X3. No acute distress. Eyes: Pupils equal, round and reactive to light. ENT: Pharynx normal. Neck: Normal inspection. Neck supple. No lymph nodes noted. No crepitus CVS: Normal heart rate and rhythm. Pulses normal. Normal S1 and S2 Respiratory: No respiratory distress. Breath sounds normal. No Wheezing. No rales Abdomen: Soft, moderate abdominal pain with deep palpation No rigidity. No distention. Skin: Skin warm and dry. Normal skin color. Normal skin turgor. Extremities: No lower extremity edema. No Lacerations. No Rash Neuro: Oriented X 3. No motor deficit. No sensory deficit. Moving all extermities. No slurred speech. Course Course Course Narrative: Patient states that her pain is much more controlled, patient is requesting to be discharged home. MDM - Abdominal Pain Lab Data Result diagrams: 07/11/21 23:04 07/11/21 23:04 Labs: Lab Results 07/11/21 07/11/21 07/11/21 Range/Units 23:04 23:04 23:04 WBC 8.3 (4.8-10.8) X10*3/uL RBC 4.50 (4.20-5.50) X10*6/uL Hgb 13.8 (12.0-16.0) g/dl Hct 42.1 (37-47) % MCV 93.6 (80-98) fL MCH 30.7 (27.0-33.0) pg MCHC 32.8 (31.0-35.0) g/dl RDW 14.3 (11.0-16.0) % Plt Count 291 (160-400) X10*3/uL MPV 10.2 (9.4-12.3) fL Immature Gran % (Auto) 0.8 H (0.0-0.4) % Neut % (Auto) 69.9 (45-73) % Lymph % (Auto) 18.6 L (20-40) % [place] % (Auto) 9.2 (2-11) % Eos % (Auto) 1.3 (0-4) % Baso % (Auto) 0.2 (0-2) % Lymph # (Auto) 1.5 (1.2-4.9) X10*3/uL [place] # (Auto) 0.8 (0.1-1.2) X10*3/uL Eos # (Auto) 0.1 (0.0-0.4) X10*3/uL Baso # (Auto) 0.0 (0.0-0.2) X10*3/uL Abs Immat Gran (auto) 0.07 H (0.00-0.03) X10*3/uL Absolute Neuts (auto) 5.8 (2.0-8.3) X10*3/uL Absolute Nucleated RBC 0.000 (0.0-0.012) X10*3/uL Nucleated RBC % (auto) 0.0 (0.0-0.2) /100WBC ESR 30 H (0-20) MM/HR Sodium 142 (135-145) mmol/L Potassium 3.9 (3.3-5.1) mmol/L Chloride 110 H (96-108) mmol/L Carbon Dioxide 21 L (22-29) mmol/L Anion Gap 15 (12-20) BUN 6 L (9-16) mg/dL Creatinine 0.72 (0.5-1.4) mg/dL Estim Creat Clear Calc 92.4 Estimated GFR > 60 Random Glucose 93 (60-115) mg/dL Calcium 9.5 (8.4-10.2) mg/dL Total Bilirubin 0.3 (0.0-1.0) mg/dL Direct Bilirubin < 0.2 (0.0-0.5) mg/dL AST 18 (5-31) U/L ALT 17 (0-31) U/L Alkaline Phosphatase 95 (39-117) U/L C-Reactive Protein 1.26 H (< or = 0.50) mg/dL Total Protein 6.8 (6.5-8.0) g/dL Albumin 3.8 (3.5-5.0) g/dL Urine Color Urine Appearance Urine pH (5.0-8.0) Ur Specific [place] (1.005-1.025) Urine Protein (NEG-TRACE) MG/DL Urine Glucose (UA) (NEG) MG/DL Urine Ketones (NEG) MG/DL Urine Blood (NEG) Urine Nitrite (NEG) Ur Leukocyte Esterase (NEG) Urine RBC (0) /HPF Urine WBC (0-4) /HPF Ur Squamous Epith Cells /LPF Urine Bacteria /LPF Urine Mucus /LPF 07/12/21 Range/Units 02:24 WBC (4.8-10.8) X10*3/uL RBC (4.20-5.50) X10*6/uL Hgb (12.0-16.0) g/dl Hct (37-47) % MCV (80-98) fL MCH (27.0-33.0) pg MCHC (31.0-35.0) g/dl RDW (11.0-16.0) % Plt Count (160-400) X10*3/uL MPV (9.4-12.3) fL Immature Gran % (Auto) (0.0-0.4) % Neut % (Auto) (45-73) % Lymph % (Auto) (20-40) % [place] % (Auto) (2-11) % Eos % (Auto) (0-4) % Baso % (Auto) (0-2) % Lymph # (Auto) (1.2-4.9) X10*3/uL [place] # (Auto) (0.1-1.2) X10*3/uL Eos # (Auto) (0.0-0.4) X10*3/uL Baso # (Auto) (0.0-0.2) X10*3/uL Abs Immat Gran (auto) (0.00-0.03) X10*3/uL Absolute Neuts (auto) (2.0-8.3) X10*3/uL Absolute Nucleated RBC (0.0-0.012) X10*3/uL Nucleated RBC % (auto) (0.0-0.2) /100WBC ESR (0-20) MM/HR Sodium (135-145) mmol/L Potassium (3.3-5.1) mmol/L Chloride (96-108) mmol/L Carbon Dioxide (22-29) mmol/L Anion Gap (12-20) BUN (9-16) mg/dL Creatinine (0.5-1.4) mg/dL Estim Creat Clear Calc Estimated GFR Random Glucose (60-115) mg/dL Calcium (8.4-10.2) mg/dL Total Bilirubin (0.0-1.0) mg/dL Direct Bilirubin (0.0-0.5) mg/dL AST (5-31) U/L ALT (0-31) U/L Alkaline Phosphatase (39-117) U/L C-Reactive Protein (< or = 0.50) mg/dL Total Protein (6.5-8.0) g/dL Albumin (3.5-5.0) g/dL Urine Color YELLOW Urine Appearance CLEAR Urine pH 6.0 (5.0-8.0) Ur Specific [place] >= 1.030 H (1.005-1.025) Urine Protein NEG (NEG-TRACE) MG/DL Urine Glucose (UA) NEG (NEG) MG/DL Urine Ketones 5 (NEG) MG/DL Urine Blood TRACE (NEG) Urine Nitrite NEG (NEG) Ur Leukocyte Esterase NEG (NEG) Urine RBC 1-4 (0) /HPF Urine WBC 1-4 (0-4) /HPF Ur Squamous Epith Cells 1+ /LPF Urine Bacteria 1+ /LPF Urine Mucus 2+ /LPF Discharge Plan Discharge Clinical Impression: Crohn's disease Patient Disposition: Home, Self-Care Instructions: Crohn Disease (ED) Additional Instructions: Please follow-up with your javascript software engineer . Please follow-up with your [facility] tomorrow. If you have any worsening or new symptoms, please return to the emergency room or call 911 Prescriptions: New tramadol 50 mg tablet 50 mg PO BID PRN (Reason: pain) Qty: 5 RF: 0 No Action escitalopram oxalate 10 mg tablet 10 mg PO DAILY 30 Days Qty: 30 RF: 2 hydromorphone [Dilaudid] 2 mg tablet 2 mg PO Q4-6H PRN (Reason: pain) Qty: 10 RF: 0 sumatriptan succinate 100 mg tablet 0.5 tab PO DAILY MRX1 PRN (Reason: Migraine Headache) RF: 0 Pentasa 500 mg Capsule, Extended Release 1,000 mg PO TID RF: 0 acetaminophen 325 mg Tablet 650 mg PO Q8H PRN (Reason: Pain, Mild (Pain Scale 1-3)) 30 Days RF: 0 ondansetron 4 mg tablet,disintegrating 4 mg PO Q8H PRN (Reason: nausea and vomiting) 5 Days Qty: 20 RF: 0 Mirena 20 mcg/24 hours (6 yrs) 52 mg intrauterine device 1 device intrauterine ONCE RF: 0 tramadol 50 mg tablet 50 mg PO BID-TID PRN (Reason: pain) RF: 0 eszopiclone 3 mg tablet 3 mg PO BEDTIME PRN (Reason: insomnia) 30 Days Qty: 30 RF: 1 lorazepam 1 mg tablet 1 mg PO TID PRN (Reason: anxiety) 30 Days Qty: 90 RF: 0 tramadol 50 mg tablet 50 mg PO TID PRN (Reason: pain) 30 Days Qty: 90 RF: 0 omeprazole 20 mg capsule,delayed release(DR/EC) 20 mg PO DAILY RF: 0 prednisone 5 mg tablet See Taper mg PO DAILY RF: 0 dicyclomine 10 mg capsule [id number] mg PO QID RF: 0 PMFSH Past Medical History 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 History of renal cell cancer (~2014) Insomnia Intractable nausea and vomiting Lumbar degenerative disc disease Migraine Obesity (BMI 30-39.9) Osteoarthritis of hips, bilateral Overweight (BMI 25.0-29.9) Surgical History History of arthroplasty (~01/2012) History of cryosurgery (~04/20/15) History of intestinal surgery History of removal of calculus of renal pelvis through percutaneous nephrostomy (~10/2015) Family History Family History Father Crohn disease Migraine Mother HTN (hypertension) Vertigo Cervical cancer Maternal Grandmother HTN (hypertension) Hyperlipidemia Diabetes mellitus Paternal Grandfather Diabetes mellitus Other Mental health problem Social History Social History Household Members: Family Housing: House Do you presently have visiting nurse or other home services: No Alcohol intake: current Alcohol intake frequency: holidays/special occasions only Patient Tobacco Use Status: Former Tobacco user Tobacco use type: Cigarette e-Cigarette/Vaping Use: Former Use Second Hand Smoke Exposure: No Advance Directives: No Advance Directives Information Provided: No Patient : No service: No Current occupational status: unemployed Gender identity: Female
[2021-07-11 23:08] LABS: MANUAL DIFF FLAG NO
[2021-07-11 23:09] LABS: Basophils Percent Auto 0.2 % (0-2); Eosinophils Absolute Auto 0.1 X10*3/uL (0.0-0.4); Eosinophils Percent Auto 1.3 % (0-4); Hematocrit 42.1 % (37-47); Hemoglobin 13.8 g/dl (12.0-16.0); Imm Gran Abs Auto 0.07 X10*3/uL (0.00-0.03); Imm Gran Pct Auto 0.8 % (0.0-0.4); Lymphocytes Absolute Auto 1.5 X10*3/uL (1.2-4.9); Lymphocytes Percent Auto 18.6 % (20-40); Mean Corpuscular HGB Conc 32.8 g/dl (31.0-35.0); Mean Corpuscular Hemoglobin 30.7 pg (27.0-33.0); Mean Corpuscular Volume 93.6 fL (80-98); Mean Platelet Volume 10.2 fL (9.4-12.3); Monocytes Absolute Auto 0.8 X10*3/uL (0.1-1.2); Monocytes Percent Auto 9.2 % (2-11); Neutrophils Absolute Auto 5.8 X10*3/uL (2.0-8.3); Neutrophils Percent Auto 69.9 % (45-73); Platelet Count 291 X10*3/uL (160-400); Red Cell Distribution Width 14.3 % (11.0-16.0); White Blood Count 8.3 X10*3/uL (4.8-10.8)
[2021-07-11] MEDS: HYDROmorphone HCl 2 MG/ML VIAL 1 MG IVPUSH (23:27)
[2021-07-11] MEDS: methylPREDNISolone Sod Succ 125 MG/2 ML VIAL IVPUSH (23:30)
[2021-07-11] MEDS: ondansetron HCL 4 MG/2 ML VIAL IVPUSH (23:30)
[2021-07-11] MEDS: 0.9 % Sodium Chloride 1,000 ML 999 ML IVCONT (23:31)
[2021-07-11 23:39] LABS: Alanine Aminotransferase 17 U/L (0-31); Albumin Level 3.8 g/dL (3.5-5.0); Alkaline Phosphatase 95 U/L (39-117); Anion Gap 15 (12-20); Aspartate Amino Transferase 18 U/L (5-31); Bilirubin Direct < 0.2 mg/dL (0.0-0.5); Bilirubin Total 0.3 mg/dL (0.0-1.0); Blood Urea Nitrogen 6 mg/dL (9-16); C Reactive Protein 1.26 mg/dL (< or = 0.50); Calcium 9.5 mg/dL (8.4-10.2); Carbon Dioxide 21 mmol/L (22-29); Chloride 110 mmol/L (96-108); Creatinine Clr Calc Pharmacy 92.4; Estimated Glomerular Filt Rate > 60; Glucose Random 93 mg/dL (60-115); Potassium 3.9 mmol/L (3.3-5.1); Sodium 142 mmol/L (135-145); Total Protein 6.8 g/dL (6.5-8.0)
[2021-07-12 00:03] LABS: Erythrocyte Sedimentation Rate 30 MM/HR (0-20)
--- NOTE | 2021-07-12 00:36 | ECG_ITS ---
Test Reason : ABD PAIN Blood Pressure : / mmHG Vent. Rate : 077 BPM Atrial Rate : 077 BPM P-R Int : 154 ms QRS Dur : 080 ms QT Int : 380 ms P-R-T Axes : 080 019 040 degrees QTc Int : 430 ms Sinus rhythm with Premature supraventricular complexes Otherwise normal ECG When compared with ECG of 23-APR-2015 14:46, Premature supraventricular complexes are now Present Referred By: Martha Botello Electronically Signed By:WELLINTGON MADERA
[2021-07-12] MEDS: HYDROmorphone HCl 2 MG/ML VIAL 1 MG IVPUSH (00:46)
[2021-07-12 02:34] LABS: Glucose Urine UA NEG (NEG); Leukocyte Esterase Urine NEG (NEG); Nitrite Urine NEG (NEG); Specific Gravity - Urine >= 1.030 (1.005-1.025); UACC Culture Trigger NO; Urine Blood TRACE (NEG); Urine Ketones 5 MG/DL (NEG); Urine Protein NEG (NEG-TRACE)
[2021-07-12 02:35] LABS: Appearance Urine CLEAR; Color Urine YELLOW
[2021-07-12 02:40] LABS: Bacteria Urine 1+ /LPF; Mucus Urine 2+ /LPF; Squamous Epithelial Cell Urine 1+ /LPF
[2021-07-12] MEDS: LORazepam 2 MG/ML VIAL 1 MG IVPUSH (02:43)
[2021-07-12 02:59] VITALS: BP 114/80; RESP 14; O2SAT 99
== END 2021-07-12 03:01 | disposition home or self-care (01) ==
PROVIDERS: Emergency Provider Emergency Medicine; PCP Internal Medicine
DX: K50.90 Crohn's disease, unspecified, without complications (principal); R10.9 Unspecified abdominal pain
CPT/HCPCS: 36415; 80048; 80076; 81001; 85025; 85652; 86140; 93005; 96361; 96374; 96375; 96376; 99284; J1170; J2060; J2405; J2930

== ENCOUNTER 2021-08-03 20:38 | Emergency (ER) | payer OTHER, SELFPAY ==
--- NOTE | ~2021-08-03 | CT_ITS ---
EXAMINATION: CT ABDOMEN AND PELVIS WITH CONTRAST CLINICAL INFORMATION: Blood in stool for 2 days, evaluate for abscess right lower buttock area COMPARISON: 06/17/2021 TECHNIQUE: Multidetector volumetric images were obtained from the superior aspect of the liver through the pubic symphysis following administration 85 mL of Omnipaque 350 intravenous contrast. Sagittal and coronal reformatted images were obtained on the technologist's workstation. Oral contrast: No This CT examination was performed using dose optimization techniques as appropriate, variously including the following: *Automated exposure control *Adjustment of mA and/or kV according to patient size (this includes techniques or standardized protocols for targeted exams where dose is matched to indication/reason for exam; i.e. extremities or head) *Use of iterative reconstruction technique DLP: 756 mGy-cm FINDINGS: LUNG BASES: The visualized lung bases are unremarkable. LIVER, GALLBLADDER, AND BILIARY TREE: The liver is normal in size, shape, and attenuation. No focal hepatic lesion or biliary ductal dilatation is present. The gallbladder is unremarkable with no evidence of radiopaque gallstones, gallbladder wall thickening, or obvious pericholecystic inflammatory changes. PANCREAS: Unremarkable. SPLEEN: Unremarkable. ADRENAL GLANDS: Unremarkable. KIDNEYS AND URETERS: The kidneys are normal in size, shape, and attenuation. Focal hypodensity and cortical indentation in the posterior right kidney is unchanged from prior. No hydronephrosis, hydroureter, or obstructing calculi seen. No perinephric stranding. BLADDER: Unremarkable. GASTROINTESTINAL TRACT: There is colonic diverticulosis without diverticulitis. There is a thick-walled appearance of the terminal ileum which is collapsed. No convincing evidence of bowel obstruction. The appendix is unremarkable. No free fluid or free air is seen. No abscess identified. ABDOMINAL WALL: Small fat-containing umbilical hernia. LYMPH NODES: Normal. VASCULAR: Unremarkable. PELVIC VISCERA: IUD is present along the endometrium. OSSEOUS STRUCTURES: Intramedullary izzy noted in the left femur, partially visualized. Mild degenerative changes in the spine. CT/CT abdomen pelvis w con IMPRESSION: No abscess identified. Thick-walled appearance of the collapsed terminal ileum, which could reflect stricturing in this patient with a history of Crohn's disease.
[2021-08-03 21:10] VITALS: BP 174/88; PULSE 110; RESP 20; TEMP 36.8; O2SAT 98; BMI 30.2
[2021-08-04] VITALS: BP 145/76; PULSE 84; RESP 16; TEMP 37; O2SAT 99
--- NOTE | 2021-08-04 00:26 | ED_ITS ---
HPI - Abdominal Pain General Chief Complaint: Abdominal Pain Stated Complaint: chromes flare up? Time Seen by Provider: 08/04/21 00:01 Source: patient Mode of arrival: ambulatory Limitations: no limitations History of Present Illness HPI narrative: 46-year-old female with a history of Crohn's disease who presents emergency department for evaluation of abdominal pain, blood in her stool and possible infected fistula. The patient states that she has constant pain in her abdomen secondary to her Crohn's disease she states that the pain got worse on Saturday (3 days prior to evaluation). She states that the pain is located in her lower abdomen, the pain is a intermittent, shooting pain which is 8/10 at its worst. She has had associated nausea with no vomiting, she has had sweats but no fever or chills. She states that 2 days prior to evaluation she noticed pink blood in her stool which is new for her. 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 The patient states that she is being treated with Humira every 2 weeks and her psychotherapist social worker is trying to get her off prednisone, she is currently taking prednisone 30 mg once a day. The patient was seen in the emergency department on 06/17/2021 for abdominal pain at that time she had a CT scan of the abdomen pelvis which revealed mural thickening at the terminal ileum. The patient also was seen in the emergency department by me on 07/07/2021 with abdominal pain and on 07/11/2021 with abdominal pain. Related Data Home Medications Medication Instructions Recorded Confirmed levonorgestrel 20 mcg/24 hours (6 1 device INTRAUTERINE ONCE 10/04/20 07/03/21 yrs) 52 mg intrauterine device (Mirena) omeprazole 20 mg capsule,delayed 20 mg PO DAILY 12/05/20 07/03/21 release mesalamine 500 mg 1,000 mg PO TID 04/25/21 07/03/21 capsule,controlled release (Pentasa) sumatriptan succinate 100 mg tablet 0.5 tab PO DAILY MRX1 PRN 04/25/21 07/03/21 dicyclomine 10 mg capsule [id number] mg PO QID 05/26/21 07/03/21 prednisone 5 mg tablet See Taper PO DAILY 05/26/21 07/03/21 tramadol 50 mg tablet 50 mg PO BID-TID PRN 07/03/21 07/03/21 Previous Rx's Medication Instructions Recorded escitalopram oxalate 10 mg tablet 10 mg PO DAILY 30 Days #30 tab 03/29/21 acetaminophen 325 mg tablet 650 mg PO Q8H PRN 30 Days tab 04/29/21 ondansetron 4 mg disintegrating 4 mg PO Q8H PRN 5 Days #20 tab 05/05/21 tablet eszopiclone 3 mg tablet 3 mg PO BEDTIME PRN 30 Days #30 tab 07/03/21 lorazepam 1 mg tablet 1 mg PO TID PRN 30 Days #90 tab 07/03/21 hydromorphone 2 mg tablet 2 mg PO Q4-6H PRN #10 tab 07/07/21 (Dilaudid) tramadol 50 mg tablet 50 mg PO BID PRN #5 tab 07/12/21 tramadol 50 mg tablet 50 mg PO TID PRN 30 Days #90 tab 07/26/21 Allergies Allergy/AdvReac Type Severity Reaction Status Date / Time meperidine [From Demerol] Allergy Severe SWELLING,RASH,THROAT Verified 08/03/21 21:18 CLOSES latex [LATEX] Allergy Mild RASH Verified 08/03/21 21:18 codeine [Codeine] AdvReac Intermediate NAUSEA/VOMITING, Verified 08/03/21 21:18 GI upset/vomiting Fish Containing Products AdvReac Unknown NAUSEA/VOMI Verified 08/03/21 21:18 [Fish Product Derivatives] TING trazodone AdvReac Intermediate worsening Uncoded 08/03/21 21:18 anxiety symptoms Review of Systems Review of Systems Yes all other systems are reviewed and are negative Physical Exam Vital Signs: Vital Signs: Last Vital Signs Temp 98.5 F 08/04/21 02:00 Pulse 80 08/04/21 02:00 Resp 16 08/04/21 02:00 BP 123/69 08/04/21 02:00 Pulse Ox 99 08/04/21 02:00 Body Mass Index 30.2 Const: General: cooperative and no acute distress Orientation/consciousness: oriented to person and oriented to place Limitations: no limitations HENMT: Head: Yes normal to inspection, Yes normocephalic and Yes atraumatic Ears: external ears normal General nose exam: Normal external nose present Face and sinus: Yes normal facial exam Mouth: Normal oral and palatal mucosa present Throat: Yes posterior oropharynx normal Eyes: General: appearance normal, both eyes and all related structures Pupils: Equal, round and reactive pupils present Neck: Neck: Yes normal visual inspection, Yes no lymphadenopathy, Yes trachea midline and Yes supple Chest: Chest palpation & inspection: normal inspection of the chest and normal palpation of entire chest wall Resp: Effort & Inspection: normal respiratory effort and able to speak in complete sentences Auscultation: clear to auscultation bilaterally Cardio: Rate: regular rate Rhythm: regular rhythm Heart sounds: S1 normal heart sound present, S2 normal heart sound present and no murmurs GI: Inspection: Yes normal to inspection and Yes obesity Palpation (GI): Soft to palpation, Tenderness to palpation present (GI) in the RLQ (Moderate), in the RUQ (Moderate) and suprapubicly (Moderate) and no guarding Auscultation: normal bowel sounds : General: Yes no CVA tenderness Back/Spine/Pelvis: Back: no CVA tenderness Skin: Other: There is flocculence abscess noted in the right inner thigh me asuring approximately 2 cm in diameter, there is surrounding erythema with increased warmth, the area is tender to palpation. General skin exam: no rashes or lesions noted Neuro: General: oriented to person and oriented to place Cranial nerves: Yes CN's II-XII intact bilaterally and Yes Equal, round and reactive pupils present Cognition (Neuro): normal cognition Motor exam (neuro): 5/5 motor strength present throughout Extrem: General: Yes normal to inspection Psych: Appearance: grossly normal Speech and movement: Normal speech and movement present Affect: normal affect Attitude: cooperative Thought process: Normal thought process present Thought content: Normal thought content present Procedures Abscess I/D Site: lower extremity Side (if applicable): right Local Anesthetic: lidocaine 1% Amount of anesthesia used (mL): 5 Technique: incised with blade (#11 blade) Amount of fluid expressed (mL): 10 Sent for culture/gram staining?: Yes Irrigation: No Packing used?: iodoform (1/2 inch) Course Course Course Narrative: 46-year-old female with history of Crohn's disease who presents emergency department for evaluation of increased abdominal pain x3 days, nausea, possible blood in her stool and a possible abscess to her right inner thigh region. Vital signs revealed an elevated blood pressure of 174/80 a and tachycardia with a pulse of 110 otherwise were unremarkable. Patient does have significant abdominal tenderness in the lower abdomen. The right inner thigh has a lesion which appears to be consistent with an abscess, I doubt that this is a fistula. The patient was able to give us a stool sample and on gross appearance the stool is loose and green with no obvious blood in the stool. I ordered a CMP, lipase and urinalysis. The patient's stool be sent for stool culture, C diff and occult blood. Patient's pain will be treated with Dilaudid 1 mg IV and her nausea will be treated with Zofran 4 mg IV. She was also ordered to get normal saline x1 L. I will incise and drain the inner thigh abscess. 0241: Patient's laboratory evaluation [place] [address]. H&H was normal. CMP was normal. CRP and sedimentation rate are pending. CT scan of the abdomen pelvis with IV contrast is pending as well. The patient required more medications to control her pain. She was given a 2nd dose of Dilaudid 1 mg IV and Ativan 1 mg IV. 0322: The patient's abscess was I and D to the patient approximately 5 cc of purulent material in abscess. The abscess was packed with half-inch iodoform gauze. I believe this only minimal amount of erythema and I do not think that she has significant cellulitis therefore she will not be started on antibiotics. Given her Crohn's disease, I believe that antibiotics would put her at high risk for C difficile colitis. The patient required a 3rd dose of Dilaudid 1 mg IV for her pain. Patient's C-reactive protein was elevated at 4.27, sedimentation rate is still pending. CT scan of the abdomen pelvis with IV contrast did not reveal any bowel obstruction, abscess or fistula. The patient does have mural wall thickening of the terminal ileum which was seen on the previous CT scan. Patient's presentation is consistent with an exacerbation of her Crohn's disease. The patient will be discharged home.The patient was given verbal and printed instructions prior to discharge. The patient was advised to follow-up with her PCP in 2 days and to return to the emergency department if her symptoms get worse or if she develops any new symptoms that are concerning to her. MDM - Abdominal Pain Lab Data Result diagrams: 08/04/21 01:16 08/04/21 01:17 Labs: Lab Results 08/04/21 08/04/21 08/04/21 Range/Units 01:16 01:16 01:16 WBC 13.3 H (4.8-10.8) X10*3/uL RBC 4.32 (4.20-5.50) X10*6/uL Hgb 13.5 (12.0-16.0) g/dl Hct 40.5 (37-47) % MCV 93.8 (80-98) fL MCH 31.3 (27.0-33.0) pg MCHC 33.3 (31.0-35.0) g/dl RDW 14.4 (11.0-16.0) % Plt Count 287 (160-400) X10*3/uL MPV 9.4 (9.4-12.3) fL Immature Gran % (Auto) 0.9 H (0.0-0.4) % Neut % (Auto) 71.4 (45-73) % Lymph % (Auto) 17.9 L (20-40) % [place] % (Auto) 8.6 (2-11) % Eos % (Auto) 1.0 (0-4) % Baso % (Auto) 0.2 (0-2) % Lymph # (Auto) 2.4 (1.2-4.9) X10*3/uL [place] # (Auto) 1.1 (0.1-1.2) X10*3/uL Eos # (Auto) 0.1 (0.0-0.4) X10*3/uL Baso # (Auto) 0.0 (0.0-0.2) X10*3/uL Abs Immat Gran (auto) 0.12 H (0.00-0.03) X10*3/uL Absolute Neuts (auto) 9.5 H (2.0-8.3) X10*3/uL Absolute Nucleated RBC 0.000 (0.0-0.012) X10*3/uL Nucleated RBC % (auto) 0.0 (0.0-0.2) /100WBC Sodium (135-145) mmol/L Potassium (3.3-5.1) mmol/L Chloride (96-108) mmol/L Carbon Dioxide (22-29) mmol/L Anion Gap (12-20) BUN (9-16) mg/dL Creatinine (0.5-1.4) mg/dL Estim Creat Clear Calc Estimated GFR Random Glucose (60-115) mg/dL Calcium (8.4-10.2) mg/dL Total Bilirubin (0.0-1.0) mg/dL AST (5-31) U/L ALT (0-31) U/L Alkaline Phosphatase (39-117) U/L C-Reactive Protein (< or = 0.50) mg/dL Total Protein (6.5-8.0) g/dL Albumin (3.5-5.0) g/dL Lipase (8-78) U/L Urine Color YELLOW Urine Appearance HAZY Urine pH 6.0 (5.0-8.0) Ur Specific [place] >= 1.030 H (1.005-1.025) Urine Protein TRACE (NEG-TRACE) MG/DL Urine Glucose (UA) NEG (NEG) MG/DL Urine Ketones NEG (NEG) MG/DL Urine Blood TRACE (NEG) Urine Nitrite NEG (NEG) Ur Leukocyte Esterase NEG (NEG) Urine RBC 5-9 H (0) /HPF Urine WBC 1-4 (0-4) /HPF Ur Squamous Epith Cells 2+ /LPF Calcium Oxalate Crystal 3+ /LPF Urine Bacteria 2+ /LPF Stool Occult Blood (NEGATIVE) C. difficile Tox B Gene NEGATIVE (Negative) 08/04/21 08/04/21 Range/Units 01:16 01:17 WBC (4.8-10.8) X10*3/uL RBC (4.20-5.50) X10*6/uL Hgb (12.0-16.0) g/dl Hct (37-47) % MCV (80-98) fL MCH (27.0-33.0) pg MCHC (31.0-35.0) g/dl RDW (11.0-16.0) % Plt Count (160-400) X10*3/uL MPV (9.4-12.3) fL Immature Gran % (Auto) (0.0-0.4) % Neut % (Auto) (45-73) % Lymph % (Auto) (20-40) % [place] % (Auto) (2-11) % Eos % (Auto) (0-4) % Baso % (Auto) (0-2) % Lymph # (Auto) (1.2-4.9) X10*3/uL [place] # (Auto) (0.1-1.2) X10*3/uL Eos # (Auto) (0.0-0.4) X10*3/uL Baso # (Auto) (0.0-0.2) X10*3/uL Abs Immat Gran (auto) (0.00-0.03) X10*3/uL Absolute Neuts (auto) (2.0-8.3) X10*3/uL Absolute Nucleated RBC (0.0-0.012) X10*3/uL Nucleated RBC % (auto) (0.0-0.2) /100WBC Sodium 140 (135-145) mmol/L Potassium 4.0 (3.3-5.1) mmol/L Chloride 107 (96-108) mmol/L Carbon Dioxide 22 (22-29) mmol/L Anion Gap 15 (12-20) BUN 10 D (9-16) mg/dL Creatinine 0.69 (0.5-1.4) mg/dL Estim Creat Clear Calc 96.5 Estimated GFR > 60 Random Glucose 94 (60-115) mg/dL Calcium 8.9 D (8.4-10.2) mg/dL Total Bilirubin 0.4 (0.0-1.0) mg/dL AST 15 (5-31) U/L ALT 15 (0-31) U/L Alkaline Phosphatase 69 D (39-117) U/L C-Reactive Protein 4.27 H (< or = 0.50) mg/dL Total Protein 6.2 L (6.5-8.0) g/dL Albumin 3.6 (3.5-5.0) g/dL Lipase 36 (8-78) U/L Urine Color Urine Appearance Urine pH (5.0-8.0) Ur Specific [place] (1.005-1.025) Urine Protein (NEG-TRACE) MG/DL Urine Glucose (UA) (NEG) MG/DL Urine Ketones (NEG) MG/DL Urine Blood (NEG) Urine Nitrite (NEG) Ur Leukocyte Esterase (NEG) Urine RBC (0) /HPF Urine WBC (0-4) /HPF Ur Squamous Epith Cells /LPF Calcium Oxalate Crystal /LPF Urine Bacteria /LPF Stool Occult Blood NEGATIVE (NEGATIVE) C. difficile Tox B Gene (Negative) Discharge Plan Discharge Clinical Impression: Exacerbation of Crohn's disease, Abdominal pain, Abscess of right lower extremity, Encounter for incision and drainage procedure Patient Disposition: Home, Self-Care Instructions: Abscess (ED) Additional Instructions: Your laboratory evaluation revealed an elevated white blood cell count and an elevated C-reactive protein. The CT scan did reveal thickening of the wall of your terminal ileum which is very similar to her previous CT scan, this is consistent with your Crohn's disease. I did drain the abscess in your right leg, a small amount of pus was drained out of the abscess and the abscess was packed with 1/2 inch iodoform gauze. The packing should stay in for 4 days. If the packing falls out before 4 days then it does not need to be replaced. You should follow-up with your doctor in 4 days for re-evaluation. Either you can pull the packing out with the doctor can pull the packing out. Follow-up with your GI doctor in 4 days. Please return to the emergency department if your symptoms get worse or if you develop any symptoms that are concerning to you. Prescriptions: No Action escitalopram oxalate 10 mg tablet 10 mg PO DAILY 30 Days Qty: 30 RF: 2 tramadol 50 mg tablet 50 mg PO TID PRN (Reason: pain) 30 Days Qty: 90 RF: 0 hydromorphone [Dilaudid] 2 mg tablet 2 mg PO Q4-6H PRN (Reason: pain) Qty: 10 RF: 0 sumatriptan succinate 100 mg tablet 0.5 tab PO DAILY MRX1 PRN (Reason: Migraine Headache) RF: 0 Pentasa 500 mg Capsule, Extended Release 1,000 mg PO TID RF: 0 acetaminophen 325 mg Tablet 650 mg PO Q8H PRN (Reason: Pain, Mild (Pain Scale 1-3)) 30 Days RF: 0 ondansetron 4 mg tablet,disintegrating 4 mg PO Q8H PRN (Reason: nausea and vomiting) 5 Days Qty: 20 RF: 0 tramadol 50 mg tablet 50 mg PO BID PRN (Reason: pain) Qty: 5 RF: 0 Mirena 20 mcg/24 hours (6 yrs) 52 mg intrauterine device 1 device intrauterine ONCE RF: 0 tramadol 50 mg tablet 50 mg PO BID-TID PRN (Reason: pain) RF: 0 eszopiclone 3 mg tablet 3 mg PO BEDTIME PRN (Reason: insomnia) 30 Days Qty: 30 RF: 1 lorazepam 1 mg tablet 1 mg PO TID PRN (Reason: anxiety) 30 Days Qty: 90 RF: 0 omeprazole 20 mg capsule,delayed release(DR/EC) 20 mg PO DAILY RF: 0 prednisone 5 mg tablet See Taper mg PO DAILY RF: 0 dicyclomine 10 mg capsule [id number] mg PO QID RF: 0 PMFSH Past Medical History PMFSH Narrative: Social history: The patient is a former smoker she denies current tobacco use. She states she drinks alcohol occasionally. She denies drug use. 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 History of renal cell cancer (~2014) Insomnia Intractable nausea and vomiting Lumbar degenerative disc disease Migraine Obesity (BMI 30-39.9) Osteoarthritis of hips, bilateral Overweight (BMI 25.0-29.9) Surgical History History of arthroplasty (~01/2012) History of cryosurgery (~04/20/15) History of intestinal surgery History of removal of calculus of renal pelvis through percutaneous nephrostomy (~10/2015) Family History Family History Father Crohn disease Migraine Mother HTN (hypertension) Vertigo Cervical cancer Maternal Grandmother HTN (hypertension) Hyperlipidemia Diabetes mellitus Paternal Grandfather Diabetes mellitus Other Mental health problem Social History Social History Household Members: Family Housing: House Do you presently have visiting nurse or other home services: No Alcohol intake: current Alcohol intake frequency: holidays/special occasions only Patient Tobacco Use Status: Former Tobacco user Tobacco use type: Cigarette e-Cigarette/Vaping Use: Former Use Second Hand Smoke Exposure: No Advance Directives: No Advance Directives Information Provided: No service: No Current occupational status: unemployed Gender identity: Female
[2021-08-04 00:57] VITALS: RESP 16
[2021-08-04] MEDS: ondansetron HCL 4 MG/2 ML VIAL IVPUSH (00:57)
[2021-08-04] MEDS: 0.9 % Sodium Chloride 1,000 ML 999 ML IV (00:57)
[2021-08-04] MEDS: HYDROmorphone HCl 1 MG/ML SYRINGE IVPUSH ×3 (00:57→03:45)
[2021-08-04 01:22] LABS: MANUAL DIFF FLAG NO
[2021-08-04 01:25] LABS: Appearance Urine HAZY; Basophils Percent Auto 0.2 % (0-2); Color Urine YELLOW; Eosinophils Absolute Auto 0.1 X10*3/uL (0.0-0.4); Glucose Urine UA NEG (NEG); Hematocrit 40.5 % (37-47); Hemoglobin 13.5 g/dl (12.0-16.0); Imm Gran Abs Auto 0.12 X10*3/uL (0.00-0.03); Imm Gran Pct Auto 0.9 % (0.0-0.4); Leukocyte Esterase Urine NEG (NEG); Lymphocytes Absolute Auto 2.4 X10*3/uL (1.2-4.9); Lymphocytes Percent Auto 17.9 % (20-40); Mean Corpuscular HGB Conc 33.3 g/dl (31.0-35.0); Mean Corpuscular Hemoglobin 31.3 pg (27.0-33.0); Mean Corpuscular Volume 93.8 fL (80-98); Mean Platelet Volume 9.4 fL (9.4-12.3); Monocytes Absolute Auto 1.1 X10*3/uL (0.1-1.2); Monocytes Percent Auto 8.6 % (2-11); Neutrophils Absolute Auto 9.5 X10*3/uL (2.0-8.3); Neutrophils Percent Auto 71.4 % (45-73); Nitrite Urine NEG (NEG); Platelet Count 287 X10*3/uL (160-400); Red Blood Count 4.32 X10*6/uL (4.20-5.50); Red Cell Distribution Width 14.4 % (11.0-16.0); Specific Gravity - Urine >= 1.030 (1.005-1.025); UACC Culture Trigger NO; Urine Blood TRACE (NEG); Urine Ketones NEG (NEG); Urine Protein TRACE MG/DL (NEG-TRACE); White Blood Count 13.3 X10*3/uL (4.8-10.8)
[2021-08-04 01:34] LABS: Bacteria Urine 2+ /LPF; Calcium Oxalate Crystals Urine 3+ /LPF; Squamous Epithelial Cell Urine 2+ /LPF
[2021-08-04 02:00] VITALS: BP 123/69; PULSE 80; RESP 16; TEMP 36.9; O2SAT 99
[2021-08-04 02:00] LABS: Anion Gap 15 (12-20); Aspartate Amino Transferase 15 U/L (5-31); Bilirubin Total 0.4 mg/dL (0.0-1.0); Calcium 8.9 mg/dL (8.4-10.2); Carbon Dioxide 22 mmol/L (22-29); Chloride 107 mmol/L (96-108); Creatinine Clr Calc Pharmacy 96.5; Estimated Glomerular Filt Rate > 60; Sodium 140 mmol/L (135-145); Total Protein 6.2 g/dL (6.5-8.0)
[2021-08-04 02:02] LABS: Alanine Aminotransferase 15 U/L (0-31); Albumin Level 3.6 g/dL (3.5-5.0); Alkaline Phosphatase 69 U/L (39-117); Blood Urea Nitrogen 10 mg/dL (9-16); Glucose Random 94 mg/dL (60-115); Lipase 36 U/L (8-78)
[2021-08-04 02:13] LABS: OBS Int Ctl Valid YES; OBS1 NEGATIVE (NEGATIVE)
[2021-08-04 02:36] LABS: CDiff Gene PCR NEGATIVE (Negative)
[2021-08-04] MEDS: Lidocaine HCl 1 % MPF 5 ML VIAL INFILTRATI ×2 (02:37)
[2021-08-04] MEDS: iohexoL 350 MG/ML 100 ML INFUS..BTL 85 ML IV (02:56)
[2021-08-04 02:58] LABS: C Reactive Protein 4.27 mg/dL (< or = 0.50)
[2021-08-04 03:31] LABS: Erythrocyte Sedimentation Rate 42 MM/HR (0-20)
[2021-08-04 03:37] VITALS: BP 134/80; PULSE 88; RESP 16; TEMP 36.6; O2SAT 99
[2021-08-04 03:45] VITALS: RESP 12
== END 2021-08-04 04:18 | disposition home or self-care (01) ==
PROVIDERS: Emergency Provider Emergency Medicine Emergency Medical Services; PCP Internal Medicine
DX: L02.415 Cutaneous abscess of right lower limb (principal); K50.10 Crohn's disease of large intestine without complications; Z79.899 Other long term (current) drug therapy
CPT/HCPCS: 10060; 36415; 74177; 80053; 81001; 82272; 83690; 85025; 85652; 86140; 87045; 87046; 87071; 87205; 87493; 96361; 96374; 96375; 96376; 99284; J1170; J2405; Q9967

== ENCOUNTER 2021-09-04 10:18 | Emergency (ER) | payer OTHER, SELFPAY ==
--- NOTE | ~2021-09-04 | XR_ITS ---
EXAMINATION: XR CHEST CLINICAL INFORMATION: Cough. COMPARISON: 06/11/2014 portable chest. TECHNIQUE: Frontal view of the chest was obtained. FINDINGS: No significant abnormality is noted involving the heart, lungs, mediastinum, bony thorax or soft tissues. XR/XR chest 1V IMPRESSION: No acute cardiopulmonary process.
--- NOTE | ~2021-09-04 | CT_ITS ---
EXAMINATION: CT ABDOMEN AND PELVIS WITHOUT CONTRAST CLINICAL INFORMATION: Right-sided abdominal pain. COMPARISON: CT scan of the abdomen and pelvis dated 08/04/2021 TECHNIQUE: Multidetector volumetric imaging was performed from the superior aspect of the liver through the pubic symphysis. Sagittal and coronal reformatted images were obtained on the technologist's workstation. Lack of intravenous and oral contrast limits visceral evaluation. This CT examination was performed using dose optimization techniques as appropriate, variously including the following: *Automated exposure control *Adjustment of mA and/or kV according to patient size (this includes techniques or standardized protocols for targeted exams where dose is matched to indication/reason for exam; i.e. extremities or head) *Use of iterative reconstruction technique DLP: 674 mGy-cm FINDINGS: LUNG BASES: The visualized lung bases are unremarkable. LIVER, GALLBLADDER, AND BILIARY TREE: Unremarkable. PANCREAS: Unremarkable. SPLEEN: Unremarkable. ADRENAL GLANDS: Unremarkable. KIDNEYS AND URETERS: Several punctate, nonobstructing intrarenal calculi are seen bilaterally. No hydroureteronephrosis. BLADDER: Unremarkable. GASTROINTESTINAL TRACT: The stomach and proximal small bowel unremarkable. Abnormal mild mural thickening is seen at the level the terminal ileum and a segment measuring approximately 6 cm proximal to the ileocecal valve. Minimal adjacent infiltrative changes are seen. The cecum and appendix are unremarkable. Scattered mild colonic diverticulosis most pronounced distally is again seen without surrounding abnormality. ABDOMINAL WALL: Small fat-containing umbilical hernia without interval change. LYMPH NODES: No lymphadenopathy. VASCULAR: Unremarkable. PELVIC VISCERA: Anteverted/anteflexed uterus containing an IUD in good position. No adnexal abnormality. OSSEOUS STRUCTURES: Unremarkable. CT/CT abdomen pelvis wo con IMPRESSION: 1. Mild mural thickening in the terminal ileum appears similar to the previous study and consistent with known Crohn's disease. No acute abnormality/obstruction is seen. 2. Multiple other incidental findings detailed above have not significantly changed. Please note this is the patient's fifth CT scan of the abdomen and pelvis since 04/25/2021.
[2021-09-04 10:37] VITALS: BP 114/67; PULSE 103; RESP 16; TEMP 36.7; O2SAT 99; BMI 30.2
[2021-09-04 12:00] VITALS: BP 118/72; PULSE 100; RESP 18; TEMP 36.7; O2SAT 98
[2021-09-04 12:47] LABS: MANUAL DIFF FLAG NO
--- NOTE | 2021-09-04 12:48 | PC.NURSE ---
iv inserted, labs drawn, pt aware we need urine, pt c/o 08/27 mid abd pain radiating to back, provider at bedside, will continue to monitor
--- NOTE | 2021-09-04 12:54 | ED_ITS ---
HPI - Abdominal Pain General Chief Complaint: Abdominal Pain Stated Complaint: NVD abd pain Time Seen by Provider: 09/04/21 12:50 Source: patient Mode of arrival: ambulatory Limitations: no limitations History of Present Illness HPI narrative: 46-year-old female came in for evaluation of abdominal pain/nausea/vomiting. Symptoms started 4 days ago, symptoms has been constant, patient is complaining of abdominal pain described as dull aching pain, constant, moderate 7/10, associated with nausea, nonbloody vomitus, and nonbloody diarrhea, nothing relieves the pain, nothing exacerbate the pain. Patient had a chronic Crohn's disease that has been controlled with Humira follow with Dr. hein. Patient declined any past surgical history. Related Data Home Medications Medication Instructions Recorded Confirmed levonorgestrel 20 mcg/24 hours (7 1 device INTRAUTERINE ONCE 10/04/20 07/03/21 yrs) 52 mg intrauterine device (Mirena) omeprazole 20 mg capsule,delayed 20 mg PO DAILY 12/05/20 07/03/21 release mesalamine 500 mg 1,000 mg PO TID 04/25/21 07/03/21 capsule,controlled release (Pentasa) sumatriptan succinate 100 mg tablet 0.5 tab PO DAILY MRX1 PRN 04/25/21 07/03/21 dicyclomine 10 mg capsule [id number] mg PO QID 05/26/21 07/03/21 prednisone 5 mg tablet See Taper PO DAILY 05/26/21 07/03/21 Previous Rx's Medication Instructions Recorded escitalopram oxalate 10 mg tablet 10 mg PO DAILY 30 Days #30 tab 03/29/21 acetaminophen 325 mg tablet 650 mg PO Q8H PRN 30 Days tab 04/29/21 ondansetron 4 mg disintegrating 4 mg PO Q8H PRN 5 Days #20 tab 05/05/21 tablet hydromorphone 2 mg tablet 2 mg PO Q4-6H PRN #10 tab 07/07/21 (Dilaudid) doxycycline monohydrate 100 mg 100 mg PO BID #20 tab 08/06/21 tablet lorazepam 1 mg tablet 1 mg PO TID PRN 30 Days #90 tab 08/09/21 eszopiclone 3 mg tablet 3 mg PO BEDTIME PRN 30 Days #30 tab 08/11/21 tramadol 50 mg tablet 50 mg PO TID PRN 30 Days #90 tab 08/23/21 Allergies Allergy/AdvReac Type Severity Reaction Status Date / Time meperidine [From Demerol] Allergy Severe SWELLING,RASH,THROAT Verified 08/03/21 21:18 CLOSES latex [LATEX] Allergy Mild RASH Verified 08/03/21 21:18 codeine [Codeine] AdvReac Intermediate NAUSEA/VOMITING, Verified 08/03/21 21:18 GI upset/vomiting Fish Containing Products AdvReac Unknown NAUSEA/VOMI Verified 08/03/21 21:18 [Fish Product Derivatives] TING trazodone AdvReac Intermediate worsening Uncoded 08/03/21 21:18 anxiety symptoms Review of Systems Review of Systems All other systems are reviewed and are negative Constitutional: Reports as per HPI and Reports no additional constitutional complaints Eyes: Reports as per HPI and Reports no additional eye complaints Reports system reviewed and no additional complaints, except as documented Cardiovascular: Reports as per HPI and Reports no additional cardiovascular complaints Respiratory: Reports as per HPI and Reports no additional respiratory complaints Gastrointestinal: Reports as per HPI and Reports no additional gastrointestinal complaints Genitourinary: Reports no additional female genitourinary complaints Musculoskeletal: Reports no additional musculoskeletal complaints Skin/Breast: Reports system reviewed and no additional complaints, except as docu Psychiatric: Reports no additional psychiatric complaints Endocrine: Reports no additional endocrine complaints Hematologic/Lymphatic: Reports no additional hematologic/lymphatic complaints Allergic/Immunologic: Reports no additional allergic/immunologic complaints Reports system reviewed and no additional complaints, except as documented and Reports Abnormal speech present Physical Exam Vital Signs: Vital Signs: Last Vital Signs Temp 98.1 F 09/04/21 12:00 Pulse 100 09/04/21 12:00 Resp 18 09/04/21 12:00 BP 118/72 09/04/21 12:00 Pulse Ox 98 09/04/21 12:00 Body Mass Index 30.2 Vital signs have been reviewed as appeared to be correct. Blood pressure normal. Heart rate normal. Respiration rate normal. Temperature normal. Oxygen saturation normal. Appearance: Alert. Oriented X3. No acute distress. Head: Normal external exam. Normocephalic. Atraumatic. No Weller signs noted. No raccoon eyes noted Eyes: PERRLA. EOMI. Conjunctiva and sclera normal. Eyelids normal. ENT: TM's Normal. Pharynx normal. Uvula midline. Moist mucous membranes. No trismus noted. No drooling noted. No muffled voice noted. Neck: Normal inspection. Neck supple. FROM. No adenopathy. Thyroid Normal. No meningeal signs. No neck mass noted. CVS: Normal heart rate and rhythm. Heart sound normal. No murmurs noted. Pulses normal throughout. Respiratory: No respiratory distress. Painless inspiration. Breath sounds normal. No wheezes/rales/rhonchi noted. Chest nontender. No accessory muscle usage noted or decreased air movement noted. Abdomen: Soft, diffuse tenderness, most of the tenderness in the right lower quadrant, no rebound, no guarding, Bowel sounds normal in all 4 quadrants. No distention noted. No organomegaly noted. No visible injury noted. Back: No CVA tenderness. Full range of motion noted. Skin: Skin warm and dry. Normal skin color. Normal skin turgor. No rashes/lesions/lacerations noted. Extremities: No lower extremity edema. Extremities exhibit normal range of motion. Extremities nontender. Neuro: Oriented X 3. Cranial nerve exam: II-XII are grossly intact No motor deficit. No sensory deficit. Reflexes normal. Course Course Course Narrative: Assessment and plan. 46-year-old female with history of Crohn's disease and chronic abdominal pain came in with an abdominal pain since Saturday, patient is unremarkable labs and unremarkable CT head, patient also been having coughing and generalized body ache, patient tested positive for COVID-19, with clear chest x-ray. MDM - Abdominal Pain Medical Records Attestation: I reviewed the patient's medical records. Lab Data Attestation: I reviewed the patient's lab results. Result diagrams: 09/04/21 12:43 09/04/21 12:43 Labs: Lab Results 09/04/21 09/04/21 09/04/21 Range/Units 12:43 12:43 13:34 WBC 4.5 L (4.8-10.8) X10*3/uL RBC 5.10 (4.20-5.50) X10*6/uL Hgb 15.3 (12.0-16.0) g/dl Hct 46.6 (37-47) % MCV 91.4 (80-98) fL MCH 30.0 (27.0-33.0) pg MCHC 32.8 (31.0-35.0) g/dl RDW 13.6 (11.0-16.0) % Plt Count 260 (160-400) X10*3/uL MPV 10.1 (9.4-12.3) fL Immature Gran % (Auto) 0.7 H (0.0-0.4) % Neut % (Auto) 62.5 (45-73) % Lymph % (Auto) 23.8 (20-40) % [place] % (Auto) 12.4 H (2-11) % Eos % (Auto) 0.4 (0-4) % Baso % (Auto) 0.2 (0-2) % Lymph # (Auto) 1.1 L (1.2-4.9) X10*3/uL [place] # (Auto) 0.6 (0.1-1.2) X10*3/uL Eos # (Auto) 0.0 (0.0-0.4) X10*3/uL Baso # (Auto) 0.0 (0.0-0.2) X10*3/uL Abs Immat Gran (auto) 0.03 (0.00-0.03) X10*3/uL Absolute Neuts (auto) 2.8 (2.0-8.3) X10*3/uL Absolute Nucleated RBC 0.000 (0.0-0.012) X10*3/uL Nucleated RBC % (auto) 0.0 (0.0-0.2) /100WBC Sodium 138 (135-145) mmol/L Potassium 4.8 (3.3-5.1) mmol/L Chloride 106 (96-108) mmol/L Carbon Dioxide 22 (22-29) mmol/L Anion Gap 15 (12-20) BUN 6 L (9-16) mg/dL Creatinine 0.70 (0.5-1.4) mg/dL Estim Creat Clear Calc 95.1 Estimated GFR > 60 Random Glucose 91 (60-115) mg/dL Calcium 9.1 (8.4-10.2) mg/dL Total Bilirubin 0.2 (0.0-1.0) mg/dL Direct Bilirubin < 0.2 (0.0-0.5) mg/dL AST 29 D (5-31) U/L ALT 23 (0-31) U/L Alkaline Phosphatase 80 (39-117) U/L Total Protein 6.8 (6.5-8.0) g/dL Albumin 3.6 (3.5-5.0) g/dL Lipase 94 H (8-78) U/L Coronavirus (PCR) POSITIVE A (Negative) Influenza Type A (PCR) NEGATIVE (Negative) Influenza Type B (PCR) NEGATIVE (Negative) RSV RNA Qual (PCR) NEGATIVE (Negative) Imaging Data CT scan - abdomen: Radiologist's impression: 1. Mild mural thickening in the terminal ileum appears similar to the previous study and consistent with known Crohn's disease. No acute abnormality/obstruction is seen. 2. Multiple other incidental findings detailed above have not significantly changed. ? Chest x-ray: Radiologist's impression: No acute cardiopulmonary process. Discharge Plan Discharge Clinical Impression: Abdominal pain, chronic, generalized, COVID-19 Patient Disposition: Home, Self-Care Instructions: Covid-19 Viral Syndrome and Novel Coronavirus (ED) Hey/Ath Additional Instructions: Self quarantine for the next 2 weeks, use face mask at all times, frequent hand washing. Prescriptions: No Action escitalopram oxalate 10 mg tablet 10 mg PO DAILY 30 Days Qty: 30 RF: 2 lorazepam 1 mg tablet 1 mg PO TID PRN (Reason: anxiety) 30 Days Qty: 90 RF: 0 eszopiclone 3 mg tablet 3 mg PO BEDTIME PRN (Reason: insomnia) 30 Days Qty: 30 RF: 1 tramadol 50 mg tablet 50 mg PO TID PRN (Reason: pain) 30 Days Qty: 90 RF: 0 hydromorphone [Dilaudid] 2 mg tablet 2 mg PO Q4-6H PRN (Reason: pain) Qty: 10 RF: 0 sumatriptan succinate 100 mg tablet 0.5 tab PO DAILY MRX1 PRN (Reason: Migraine Headache) RF: 0 Pentasa 500 mg Capsule, Extended Release 1,000 mg PO TID RF: 0 acetaminophen 325 mg Tablet 650 mg PO Q8H PRN (Reason: Pain, Mild (Pain Scale 1-3)) 30 Days RF: 0 ondansetron 4 mg tablet,disintegrating 4 mg PO Q8H PRN (Reason: nausea and vomiting) 5 Days Qty: 20 RF: 0 doxycycline monohydrate 100 mg tablet 100 mg PO BID Qty: 20 RF: 0 Mirena 20 mcg/24 hours (6 yrs) 52 mg intrauterine device 1 device intrauterine ONCE RF: 0 omeprazole 20 mg capsule,delayed release(DR/EC) 20 mg PO DAILY RF: 0 prednisone 5 mg tablet See Taper mg PO DAILY RF: 0 dicyclomine 10 mg capsule [id number] mg PO QID RF: 0 Referrals: Jaswant Frank MD [Primary Care Provider] - 2 days [facility] Past Medical History 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 History of renal cell cancer (~2014) Insomnia Intractable nausea and vomiting Lumbar degenerative disc disease Migraine Obesity (BMI 30-39.9) Osteoarthritis of hips, bilateral Overweight (BMI 25.0-29.9) Surgical History History of arthroplasty (~01/2012) History of cryosurgery (~04/20/15) History of intestinal surgery History of removal of calculus of renal pelvis through percutaneous nephrostomy (~10/2015) Family History Family History Father Crohn disease Migraine Mother HTN (hypertension) Vertigo Cervical cancer Maternal Grandmother HTN (hypertension) Hyperlipidemia Diabetes mellitus Paternal Grandfather Diabetes mellitus Other Mental health problem Social History Social History Household Members: Family Housing: House Do you presently have visiting nurse or other home services: No Alcohol intake: never Patient Tobacco Use Status: Former Tobacco user Tobacco use type: Cigarette e-Cigarette/Vaping Use: Former Use Second Hand Smoke Exposure: No Use of substances other than those prescribed or required for medical reasons: No Advance Directives: No Patient : No service: No Current occupational status: unemployed Gender identity: Female
[2021-09-04 13:03] LABS: Basophils Percent Auto 0.2 % (0-2); Eosinophils Percent Auto 0.4 % (0-4); Hematocrit 46.6 % (37-47); Hemoglobin 15.3 g/dl (12.0-16.0); Imm Gran Abs Auto 0.03 X10*3/uL (0.00-0.03); Imm Gran Pct Auto 0.7 % (0.0-0.4); Lymphocytes Absolute Auto 1.1 X10*3/uL (1.2-4.9); Lymphocytes Percent Auto 23.8 % (20-40); Mean Corpuscular HGB Conc 32.8 g/dl (31.0-35.0); Mean Corpuscular Volume 91.4 fL (80-98); Mean Platelet Volume 10.1 fL (9.4-12.3); Monocytes Absolute Auto 0.6 X10*3/uL (0.1-1.2); Monocytes Percent Auto 12.4 % (2-11); Neutrophils Absolute Auto 2.8 X10*3/uL (2.0-8.3); Neutrophils Percent Auto 62.5 % (45-73); Platelet Count 260 X10*3/uL (160-400); Red Cell Distribution Width 13.6 % (11.0-16.0); White Blood Count 4.5 X10*3/uL (4.8-10.8)
[2021-09-04 13:07] LABS: Alanine Aminotransferase 23 U/L (0-31); Albumin Level 3.6 g/dL (3.5-5.0); Alkaline Phosphatase 80 U/L (39-117); Anion Gap 15 (12-20); Aspartate Amino Transferase 29 U/L (5-31); Bilirubin Direct < 0.2 mg/dL (0.0-0.5); Bilirubin Total 0.2 mg/dL (0.0-1.0); Blood Urea Nitrogen 6 mg/dL (9-16); Calcium 9.1 mg/dL (8.4-10.2); Carbon Dioxide 22 mmol/L (22-29); Chloride 106 mmol/L (96-108); Creatinine Clr Calc Pharmacy 95.1; Estimated Glomerular Filt Rate > 60; Glucose Random 91 mg/dL (60-115); Lipase 94 U/L (8-78); Potassium 4.8 mmol/L (3.3-5.1); Sodium 138 mmol/L (135-145); Total Protein 6.8 g/dL (6.5-8.0)
[2021-09-04] MEDS: Famotidine/PF 20 MG/2 ML VIAL IVPUSH (13:22)
[2021-09-04] MEDS: ondansetron HCL 4 MG/2 ML VIAL IVPUSH (13:22)
[2021-09-04] MEDS: 0.9 % Sodium Chloride 1,000 ML 999 ML IVCONT (13:22)
--- NOTE | 2021-09-04 13:22 | PC.NURSE ---
patient medicated per order, pr requesting med for anxiety, will notify provider
[2021-09-04] MEDS: LORazepam 2 MG/ML VIAL 0.5 MG IVPUSH (13:56)
[2021-09-04 14:22] LABS: Influenza A PCR NEGATIVE (Negative); Influenza B PCR NEGATIVE (Negative); Resp Syncy Virus RNA Qual PCR NEGATIVE (Negative); SARS COV2 PCR INHOUSE POSITIVE (Negative)
[2021-09-04] MEDS: HYDROmorphone HCl 1 MG/ML SYRINGE IVPUSH (14:35)
--- NOTE | 2021-09-04 14:39 | PC.NURSE ---
patient refused morphine, provider notified new order given, patient medicated per order.
[2021-09-04 15:21] LABS: Appearance Urine HAZY; Color Urine YELLOW; Glucose Urine UA NEG (NEG); Leukocyte Esterase Urine TRACE (NEG); Nitrite Urine NEG (NEG); Specific Gravity - Urine >= 1.030 (1.005-1.025); UACC Culture Trigger YES; Urine Blood NEG (NEG); Urine Ketones 15 MG/DL (NEG); Urine Protein NEG (NEG-TRACE)
[2021-09-04 15:41] VITALS: BP 135/80; PULSE 84; RESP 16; TEMP 37; O2SAT 99
[2021-09-04 15:41] LABS: UACC CULT YES
[2021-09-04 15:42] LABS: Bacteria Urine 1+ /LPF; RBC Urine 0 /HPF (0); Squamous Epithelial Cell Urine 3+ /LPF
== END 2021-09-04 16:07 | disposition home or self-care (01) ==
PROVIDERS: Emergency Provider Emergency Medicine; PCP Internal Medicine
DX: U07.1 COVID-19 (principal); R10.9 Unspecified abdominal pain; R11.2 Nausea with vomiting, unspecified; Z79.899 Other long term (current) drug therapy
CPT/HCPCS: 0241U; 36415; 71045; 74176; 80048; 80076; 81001; 83690; 85025; 87086; 96361; 96374; 96375; 99284; J1170; J2060; J2405

== ENCOUNTER 2021-10-02 06:18 | Emergency (ER) | payer OTHER, SELFPAY ==
--- NOTE | ~2021-10-02 | CT_ITS ---
EXAMINATION: CT ABDOMEN AND PELVIS WITH CONTRAST CLINICAL INFORMATION: Diffuse abdominal pain COMPARISON: CT abdomen and pelvis 09/04/2021 TECHNIQUE: Multidetector volumetric images were obtained from the superior aspect of the liver through the pubic symphysis following administration 85 mL of Omnipaque 350 intravenous contrast. Sagittal and coronal reformatted images were obtained on the technologist's workstation. Oral contrast: No This CT examination was performed using dose optimization techniques as appropriate, variously including the following: *Automated exposure control *Adjustment of mA and/or kV according to patient size (this includes techniques or standardized protocols for targeted exams where dose is matched to indication/reason for exam; i.e. extremities or head) *Use of iterative reconstruction technique DLP: 739 mGy-cm FINDINGS: LUNG BASES: The visualized lung bases are unremarkable. LIVER, GALLBLADDER, AND BILIARY TREE: The liver is normal in size, shape, and attenuation. No focal hepatic lesion or biliary ductal dilatation is present. The gallbladder is unremarkable with no evidence of radiopaque gallstones, gallbladder wall thickening, or obvious pericholecystic inflammatory changes. PANCREAS: Unremarkable. SPLEEN: Unremarkable. ADRENAL GLANDS: There is mild left adrenal thickening. The right adrenal gland is unremarkable. KIDNEYS AND URETERS: There is small cortical defect mid to lower pole posterior cortex right kidney similar to previous study likely old scar. Otherwise both kidney cortices are symmetrical and normal. No radiopaque calculi or hydronephrosis. BLADDER: Unremarkable. GASTROINTESTINAL TRACT: There is diffuse mural thickening involving the terminal ileum with periileal fat stranding likely Crohn's disease. Visualized rest of the small bowel loops are normal caliber. There is diffuse colonic diverticulosis with nonspecific mild mural thickening involving the sigmoid colon but no pericolic fat stranding seen. There is no free air or free fluid. ABDOMINAL WALL: A small lumbar canal hernia containing fat is noted. LYMPH NODES: Normal. VASCULAR: Unremarkable. PELVIC VISCERA: There is anteverted uterus with a IUD well located within the endometrial canal. OSSEOUS STRUCTURES: No lytic or sclerotic process seen. There is mild facet joint arthropathy L5-S1 disc levels. CT/CT abdomen pelvis w con IMPRESSION: Diffuse terminal ileal mural thickening suggestive of known Crohn's disease similar to previous study. Colonic diverticulosis without diverticulitis.
[2021-10-02 06:34] VITALS: BP 115/67; PULSE 88; RESP 24; TEMP 37.2; O2SAT 98; BMI 31.1
--- NOTE | 2021-10-02 06:49 | ED_ITS ---
HPI - Abdominal Pain General Chief Complaint: Abdominal Pain Stated Complaint: abd pain vomiting diarrhea Time Seen by Provider: 10/02/21 06:40 Source: patient Mode of arrival: ambulatory Limitations: no limitations History of Present Illness HPI narrative: This is a 46 years old of female who presented to the emergency department with a chief complain of diffuse abdominal pain. She states that the pain started yesterday the pain is generalized with nausea vomiting and diarrhea no bloody she states that yesterday she resume Humira which was discontinued temporarily because he was COVID positive. She has been seen in this department in the past with abdominal pain MD elicited complaint: abdominal pain Pertinent past history: other (Crohn disease) Onset (ago): day(s) (1) Pain Consistency: constant Location: diffuse Severity: moderate Quality: cramping Radiation: none Migration to: no migration Exacerbating factors: nothing Associated symptoms: nausea, vomiting and diarrhea Related Data Patient : No Home Medications Medication Instructions Recorded Confirmed levonorgestrel 20 mcg/24 hours (7 1 device INTRAUTERINE ONCE 10/04/20 07/03/21 yrs) 52 mg intrauterine device (Mirena) omeprazole 20 mg capsule,delayed 20 mg PO DAILY 12/05/20 07/03/21 release mesalamine 500 mg 1,000 mg PO TID 04/25/21 07/03/21 capsule,controlled release (Pentasa) sumatriptan succinate 100 mg tablet 0.5 tab PO DAILY MRX1 PRN 04/25/21 07/03/21 dicyclomine 10 mg capsule [id number] mg PO QID 05/26/21 07/03/21 prednisone 5 mg tablet See Taper PO DAILY 05/26/21 07/03/21 Previous Rx's Medication Instructions Recorded acetaminophen 325 mg tablet 650 mg PO Q8H PRN 30 Days tab 04/29/21 ondansetron 4 mg disintegrating 4 mg PO Q8H PRN 5 Days #20 tab 05/05/21 tablet hydromorphone 2 mg tablet 2 mg PO Q4-6H PRN #10 tab 07/07/21 (Dilaudid) doxycycline monohydrate 100 mg 100 mg PO BID #20 tab 08/06/21 tablet escitalopram oxalate 10 mg tablet 10 mg PO DAILY 30 Days #30 tab 09/06/21 lorazepam 1 mg tablet 1 mg PO TID PRN 30 Days #90 tab 09/06/21 tramadol 50 mg tablet 50 mg PO TID PRN 30 Days #90 tab 09/12/21 oxycodone 5 mg capsule 5 mg PO Q8H PRN #12 cap 10/02/21 prednisone 20 mg tablet 20 mg PO DAILY #7 tab 10/02/21 zolpidem 5 mg tablet 5 mg PO BEDTIME PRN #14 tab 10/02/21 Allergies Allergy/AdvReac Type Severity Reaction Status Date / Time meperidine [From Demerol] Allergy Severe SWELLING,RASH,THROAT Verified 08/03/21 21:18 CLOSES latex [LATEX] Allergy Mild RASH Verified 08/03/21 21:18 codeine [Codeine] AdvReac Intermediate NAUSEA/VOMITING, Verified 08/03/21 21:18 GI upset/vomiting Fish Containing Products AdvReac Unknown NAUSEA/VOMI Verified 08/03/21 21:18 [Fish Product Derivatives] TING trazodone AdvReac Intermediate worsening Uncoded 08/03/21 21:18 anxiety symptoms Review of Systems Review of Systems Review of system is she denies any cardiovascular complain no chest pain or shortness of breath , she denies any neuro complaints such as headache she denies any systemic symptoms such as fever superior review of system a ease as of for history of present illness positive nausea vomiting diarrhea and abdom inal pain Yes all other systems are reviewed and are negative Physical Exam Vital Signs: Vital Signs: Last Vital Signs Temp 99.0 F 10/02/21 06:34 Pulse 88 10/02/21 06:34 Resp 24 H 10/02/21 06:34 BP 115/67 10/02/21 06:34 Pulse Ox 98 10/02/21 06:34 Body Mass Index 31.1 Const: Other: Examination shows a middle aged woman in mild distress anxious appearing HENMT: Other: Head eyes ears nose and throat exam is within normal limit Neck: Other: Neck is supple full range of motion no stiffness Resp: Other: Lungs are clear during auscultation there is no wheezing and no rales Cardio: Other: Heart exam is shows a regular rate and rhythm a Jugular venous distension: no JVD GI: Other: GI exam shows tender abdomen without guarding without rebound without peritoneal signs Skin: Other: Skin is moist and there is no rash present Course Reevaluation(s) Reevaluation #1: On re-examine the patient is doing better labs were reviewed the CT scan reviewed , CT showed some thickening of the terminal ileum but no bowel obstruction no free air. I think is really reasonable to discharge this patient home a I will give her some prednisone p.o. and liquid diet. I did send tiger text test message to her primary hand alterations tailor Dr. Alexis. The patient is very comfortable with the plan so at this point we are going to discharge the patient with the above plan. MDM - Abdominal Pain MDM Narrative Medical decision making narrative: This is 46 years old of Crohn disease presented with abdominal pain nausea vomiting diarrhea we are going to get labs including a CBC chemistry lipase, will give IV fluids antiemetics and analgesics medication will get imaging CT scan of the abdomen and pelvis with IV contrast Lab Data Result diagrams: 10/02/21 07:14 10/02/21 07:14 Labs: Lab Results 10/02/21 10/02/21 10/02/21 Range/Units 07:14 07:14 08:08 WBC 7.9 (4.8-10.8) X10*3/uL RBC 4.43 (4.20-5.50) X10*6/uL Hgb 13.3 (12.0-16.0) g/dl Hct 40.9 (37.0-47.0) % MCV 92.3 (80.0-98.0) fL MCH 30.0 (27.0-33.0) pg MCHC 32.5 (31.0-35.0) g/dl RDW 13.6 (11.0-16.0) % Plt Count 261 (160-400) X10*3/uL MPV 9.8 (9.4-12.3) fL Immature Gran % (Auto) 0.6 H (0.0-0.4) % Neut % (Auto) 69.4 (45-73) % Lymph % (Auto) 17.5 L (20-40) % [place] % (Auto) 10.3 (2-11) % Eos % (Auto) 1.8 (0-4) % Baso % (Auto) 0.4 (0-2) % Lymph # (Auto) 1.4 (1.2-4.9) X10*3/uL [place] # (Auto) 0.8 (0.1-1.2) X10*3/uL Eos # (Auto) 0.1 (0.0-0.4) X10*3/uL Baso # (Auto) 0.0 (0.0-0.2) X10*3/uL Abs Immat Gran (auto) 0.05 H (0.00-0.03) X10*3/uL Absolute Neuts (auto) 5.5 (2.0-8.3) x10*3/uL Absolute Nucleated RBC 0.000 (0.0-0.012) X10*3/uL Nucleated RBC % (auto) 0.0 (0.0-0.2) /100WBC Sodium 140 (135-145) mmol/L Potassium 4.1 (3.3-5.1) mmol/L Chloride 107 (96-108) mmol/L Carbon Dioxide 27 (22-29) mmol/L Anion Gap 10 L (12-20) BUN 6 L (9-16) mg/dL Creatinine 0.69 (0.5-1.4) mg/dL Estim Creat Clear Calc 97.9 Estimated GFR > 60 Random Glucose 87 (60-115) mg/dL Calcium 8.9 (8.4-10.2) mg/dL Total Bilirubin 0.3 (0.0-1.0) mg/dL AST 16 D (5-31) U/L ALT 17 (0-31) U/L Alkaline Phosphatase 78 (39-117) U/L Total Protein 6.3 L (6.5-8.0) g/dL Albumin 3.6 (3.5-5.0) g/dL Lipase 24 (8-78) U/L Beta HCG, Quant < 2 mIU/mL Urine Color YELLOW Urine Appearance HAZY Urine pH 6.0 (5.0-8.0) Ur Specific Gary 1.010 (1.005-1.025) Urine Protein NEG (NEG-TRACE) MG/DL Urine Glucose (UA) NEG (NEG) MG/DL Urine Ketones NEG (NEG) MG/DL Urine Blood NEG (NEG) Urine Nitrite NEG (NEG) Ur Leukocyte Esterase 1+ H (NEG) Urine RBC 0 (0) /HPF Urine WBC 5-9 H (0-4) /HPF Ur Squamous Epith Cells 2+ /LPF Urine Bacteria 1+ /LPF Urine Mucus 1+ /LPF Imaging Data CT scan - abdomen: Attestation: I personally reviewed and interpreted this imaging study as follows: Radiologist's impression: GASTROINTESTINAL TRACT: There is diffuse mural thickening involving the terminal ileum with periileal fat stranding likely Crohn's disease. Visualized rest of the small bowel loops are normal caliber. There is diffuse colonic diverticulosis with nonspecific mild mural thickening involving the sigmoid colon but no pericolic fat stranding seen. There is no free air or free fluid.? ABDOMINAL WALL: A small lumbar canal hernia containing fat is noted.? LYMPH NODES: Normal. VASCULAR: Unremarkable. PELVIC VISCERA: There is anteverted uterus with a IUD well located within the endometrial canal. OSSEOUS STRUCTURES: No lytic or sclerotic process seen. There is mild facet joint arthropathy L5-S1 disc levels.? CT/CT abdomen pelvis w con IMPRESSION: Diffuse terminal ileal mural thickening suggestive of known Crohn's disease similar to previous study.? ? Colonic diverticulosis without diverticulitis. ? ? Dictated By: Rolly Cid MD Discharge Plan Discharge Clinical Impression: Abdominal pain Patient Disposition: Home, Self-Care Instructions: Abdominal Pain (ED) Additional Instructions: Please follow-up with your hand alterations tailor call today make an appointment, return to the emergency room if you worse, fever vomiting, any concern Prescriptions: New oxycodone 5 mg capsule 5 mg PO Q8H PRN (Reason: pain) Qty: 12 RF: 0 prednisone 20 mg tablet 20 mg PO DAILY Qty: 7 RF: 0 No Action escitalopram oxalate 10 mg tablet 10 mg PO DAILY 30 Days Qty: 30 RF: 2 lorazepam 1 mg tablet 1 mg PO TID PRN (Reason: anxiety) 30 Days Qty: 90 RF: 0 tramadol 50 mg tablet 50 mg PO TID PRN (Reason: pain) 30 Days Qty: 90 RF: 0 zolpidem 5 mg tablet 5 mg PO BEDTIME PRN (Reason: sleep) Qty: 14 RF: 0 hydromorphone [Dilaudid] 2 mg tablet 2 mg PO Q4-6H PRN (Reason: pain) Qty: 10 RF: 0 sumatriptan succinate 100 mg tablet 0.5 tab PO DAILY MRX1 PRN (Reason: Migraine Headache) RF: 0 Pentasa 500 mg Capsule, Extended Release 1,000 mg PO TID RF: 0 acetaminophen 325 mg Tablet 650 mg PO Q8H PRN (Reason: Pain, Mild (Pain Scale 1-3)) 30 Days RF: 0 ondansetron 4 mg tablet,disintegrating 4 mg PO Q8H PRN (Reason: nausea and vomiting) 5 Days Qty: 20 RF: 0 doxycycline monohydrate 100 mg tablet 100 mg PO BID Qty: 20 RF: 0 Mirena 20 mcg/24 hours (6 yrs) 52 mg intrauterine device 1 device intrauterine ONCE RF: 0 omeprazole 20 mg capsule,delayed release(DR/EC) 20 mg PO DAILY RF: 0 prednisone 5 mg tablet See Taper mg PO DAILY RF: 0 dicyclomine 10 mg capsule [id number] mg PO QID RF: 0 Referrals: Matthew Alexis [Physician] - 2 days Interventions: ED Discharge Assessment Last Done: 10/02/21 10:06 Discharge Date/Time: 10/02/21 10:19 [facility] Past Medical History Attestation statement: The following information was validated with the patient. 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 History of renal cell cancer (~2014) Insomnia Intractable nausea and vomiting Lumbar degenerative disc disease Migraine Obesity (BMI 30-39.9) Osteoarthritis of hips, bilateral Overweight (BMI 25.0-29.9) Surgical History History of arthroplasty (~01/2012) History of cryosurgery (~04/20/15) History of intestinal surgery History of removal of calculus of renal pelvis through percutaneous nephrostomy (~10/2015) Family History Family History Father Crohn disease Migraine Mother HTN (hypertension) Vertigo Cervical cancer Maternal Grandmother HTN (hypertension) Hyperlipidemia Diabetes mellitus Paternal Grandfather Diabetes mellitus Other Mental health problem Social History Social History Household Members: Family Housing: House Do you presently have visiting nurse or other home services: No Alcohol intake: never Patient Tobacco Use Status: Former Tobacco user Tobacco use type: Cigarette e-Cigarette/Vaping Use: Former Use Second Hand Smoke Exposure: No Advance Directives: Yes Advance Directives Information Provided: Yes Advance Directives on File: No Patient : No service: No Current occupational status: unemployed Gender identity: Female
[2021-10-02] MEDS: 0.9 % Sodium Chloride 1,000 ML 999 ML IVCONT (07:16)
[2021-10-02] MEDS: HYDROmorphone HCl 0.5 MG/0.5 ML SYRINGE IVPUSH ×2 (07:16→09:09)
[2021-10-02 07:17] LABS: MANUAL DIFF FLAG NO
[2021-10-02] MEDS: ondansetron HCL 4 MG/2 ML VIAL IVPUSH (07:17)
[2021-10-02 07:18] LABS: Basophils Percent Auto 0.4 % (0-2); Eosinophils Absolute Auto 0.1 X10*3/uL (0.0-0.4); Eosinophils Percent Auto 1.8 % (0-4); Hematocrit 40.9 % (37.0-47.0); Hemoglobin 13.3 g/dl (12.0-16.0); Imm Gran Abs Auto 0.05 X10*3/uL (0.00-0.03); Imm Gran Pct Auto 0.6 % (0.0-0.4); Lymphocytes Absolute Auto 1.4 X10*3/uL (1.2-4.9); Lymphocytes Percent Auto 17.5 % (20-40); Mean Corpuscular HGB Conc 32.5 g/dl (31.0-35.0); Mean Corpuscular Volume 92.3 fL (80.0-98.0); Mean Platelet Volume 9.8 fL (9.4-12.3); Monocytes Absolute Auto 0.8 X10*3/uL (0.1-1.2); Monocytes Percent Auto 10.3 % (2-11); Neutrophils Absolute Auto 5.5 x10*3/uL (2.0-8.3); Neutrophils Percent Auto 69.4 % (45-73); Platelet Count 261 X10*3/uL (160-400); Red Blood Count 4.43 X10*6/uL (4.20-5.50); Red Cell Distribution Width 13.6 % (11.0-16.0); White Blood Count 7.9 X10*3/uL (4.8-10.8)
[2021-10-02 07:35] LABS: Alanine Aminotransferase 17 U/L (0-31); Albumin Level 3.6 g/dL (3.5-5.0); Alkaline Phosphatase 78 U/L (39-117); Anion Gap 10 (12-20); Aspartate Amino Transferase 16 U/L (5-31); Bilirubin Total 0.3 mg/dL (0.0-1.0); Blood Urea Nitrogen 6 mg/dL (9-16); Calcium 8.9 mg/dL (8.4-10.2); Carbon Dioxide 27 mmol/L (22-29); Chloride 107 mmol/L (96-108); Creatinine Clr Calc Pharmacy 97.9; Estimated Glomerular Filt Rate > 60; Glucose Random 87 mg/dL (60-115); Lipase 24 U/L (8-78); Potassium 4.1 mmol/L (3.3-5.1); Sodium 140 mmol/L (135-145); Total Protein 6.3 g/dL (6.5-8.0)
[2021-10-02 07:41] LABS: HCG Quantitative < 2 mIU/mL
[2021-10-02] MEDS: iohexoL 350 MG/ML 100 ML INFUS..BTL IV (08:11)
[2021-10-02 08:23] LABS: Appearance Urine HAZY; Color Urine YELLOW; Glucose Urine UA NEG (NEG); Leukocyte Esterase Urine 1+ (NEG); Nitrite Urine NEG (NEG); UACC Culture Trigger YES; Urine Blood NEG (NEG); Urine Ketones NEG (NEG); Urine Protein NEG (NEG-TRACE)
[2021-10-02 08:31] LABS: Bacteria Urine 1+ /LPF; Mucus Urine 1+ /LPF; RBC Urine 0 /HPF (0); Squamous Epithelial Cell Urine 2+ /LPF; UACC CULT YES
[2021-10-02] MEDS: LORazepam 2 MG/ML VIAL 0.5 MG IVPUSH (09:08)
[2021-10-02] MEDS: Metoclopramide HCl 10 MG/2 ML VIAL IVPUSH (09:08)
== END 2021-10-02 10:19 | disposition home or self-care (01) ==
PROVIDERS: Emergency Provider Emergency Medicine; PCP Internal Medicine
DX: R10.9 Unspecified abdominal pain (principal); R11.2 Nausea with vomiting, unspecified; K50.90 Crohn's disease, unspecified, without complications
CPT/HCPCS: 36415; 74177; 80053; 81001; 83690; 84702; 85025; 87086; 96361; 96374; 96375; 96376; 99284; J1170; J2060; J2405; J2765; Q9967

== ENCOUNTER 2021-11-15 14:25 | Outpatient (REF) | payer OTHER, SELFPAY ==
[2021-11-16 03:21] LABS: CT PCR NOT DETECTED (Not Detect.); NG PCR NOT DETECTED (Not Detect.)
[2021-11-16 09:44] LABS: BV Int Neg Control Negative (Negative); BV Int Pos Control Positive (Positive)
[2021-11-21 18:46] LABS: HPV mRNA E6/E7 rflx Not Detected (Not Detected)
== END 2021-11-15 14:26 | disposition home or self-care (01) ==
LOC: HO.LAB 14:25
PROVIDERS: PCP Internal Medicine; Visit Provider Advanced Practice Midwife
DX: R10.2 Pelvic and perineal pain (principal); N88.9 Noninflammatory disorder of cervix uteri, unspecified; Z32.02 Encounter for pregnancy test, result negative; Z87.891 Personal history of nicotine dependence; Z30.431 Encounter for routine checking of intrauterine contraceptive device; Z20.2 Contact with and (suspected) exposure to infections with a predominantly sexual mode of transmission
CPT/HCPCS: 81025; 87480; 87491; 87510; 87591; 87624; 87660; 88142; 99212

== ENCOUNTER 2021-12-07 12:45 | Outpatient (REF) | payer OTHER, SELFPAY ==
--- NOTE | ~2021-12-07 | XR_ITS ---
EXAMINATION: XR SKULL XR ORBITS CLINICAL INFORMATION: Pre-MRI COMPARISON: None TECHNIQUE: X-ray of the frontal and lateral orbits. Skull frontal lateral caudal view obliques. FINDINGS: No fracture. There is a subtle 0.6 cm radiolucency projecting over the parietal bone on lateral view not well visualized on the frontal view, this is concerning for possible osteolytic lesion. Exam otherwise normal Orbital bones are intact. Paranasal sinuses are clear. Nasal bone is intact. Pituitary fossa is unremarkable. Suture lines are closed. XR/XR skull <4V IMPRESSION: Suspicion for possible small osteolytic bone lesion, attention to follow-up CT scan and/or MRI recommended. (Referring physician staff is being called, to be alerted of the above findings and recommendations.) DC
--- NOTE | ~2021-12-07 | XR_ITS ---
EXAMINATION: XR SKULL XR ORBITS CLINICAL INFORMATION: Pre-MRI COMPARISON: None TECHNIQUE: X-ray of the frontal and lateral orbits. Skull frontal lateral caudal view obliques. FINDINGS: No fracture. There is a subtle 0.6 cm radiolucency projecting over the parietal bone on lateral view not well visualized on the frontal view, this is concerning for possible osteolytic lesion. Exam otherwise normal Orbital bones are intact. Paranasal sinuses are clear. Nasal bone is intact. Pituitary fossa is unremarkable. Suture lines are closed. XR/XR orbit min 4V IMPRESSION: Suspicion for possible small osteolytic bone lesion, attention to follow-up CT scan and/or MRI recommended. (Referring physician staff is being called, to be alerted of the above findings and recommendations.) DC
--- NOTE | ~2021-12-07 | XR_ITS ---
EXAMINATION: XR FOOT, LEFT CLINICAL INFORMATION: Pain in the left foot. COMPARISON: None. TECHNIQUE: AP, lateral, and oblique views of the left foot. FINDINGS: Mild hallux valgus with uncovering of the medial aspect of the head of the 1st metatarsal. Cystic change noted along the medial aspect of the metatarsal head. Joint spaces are normal. Remaining bones joints and soft tissues unremarkable. XR/XR foot LT min 3V IMPRESSION: No acute abnormality. Mild hallux valgus.
== END 2021-12-07 12:46 | disposition home or self-care (01) ==
LOC: HO.XRAY 12:45
PROVIDERS: PCP Internal Medicine; Visit Provider Internal Medicine
DX: Z01.818 Encounter for other preprocedural examination (principal); M79.672 Pain in left foot; H57.11 Ocular pain, right eye; R51.9 Headache, unspecified; S99.929A Unspecified injury of unspecified foot, initial encounter; S09.90XA Unspecified injury of head, initial encounter
CPT/HCPCS: 70200; 70250; 73630

== ENCOUNTER 2021-12-11 03:32 | Emergency (ER) | payer OTHER, SELFPAY ==
--- NOTE | ~2021-12-11 | CT_ITS ---
EXAMINATION: CT ABDOMEN AND PELVIS WITHOUT CONTRAST CLINICAL INFORMATION: Right flank pain COMPARISON: Previous CT scans most recent September 2021 TECHNIQUE: Multidetector volumetric imaging was performed from the superior aspect of the liver through the pubic symphysis. Sagittal and coronal reformatted images were obtained on the technologist's workstation. This CT examination was performed using dose optimization techniques as appropriate, variously including the following: *Automated exposure control *Adjustment of mA and/or kV according to patient size (this includes techniques or standardized protocols for targeted exams where dose is matched to indication/reason for exam; i.e. extremities or head) *Use of iterative reconstruction technique DLP: 680 mGy-cm FINDINGS: LUNG BASES: The visualized lung bases are unremarkable. LIVER, GALLBLADDER, AND BILIARY TREE: The liver is normal in size, shape, and attenuation. No focal hepatic lesion or biliary ductal dilatation is present. The gallbladder is unremarkable with no evidence of radiopaque gallstones, gallbladder wall thickening, or obvious pericholecystic inflammatory changes. PANCREAS: Unremarkable. SPLEEN: Unremarkable. ADRENAL GLANDS: Unremarkable. KIDNEYS AND URETERS: There is cortical thinning or scarring of the upper pole of the left kidney. The kidneys are otherwise unremarkable. No renal stone or hydronephrosis is seen. BLADDER: Not optimally distended but appears unremarkable. GASTROINTESTINAL TRACT: There is wall thickening and edema of the terminal ileum. Appearances again suggestive of inflammatory bowel disease and is similar to September 2021 exam. There is mild diverticulosis of the colon. Small and large bowel is otherwise unremarkable. The appendix is unremarkable. ABDOMINAL WALL: There is an umbilical hernia containing fat. LYMPH NODES: Normal. VASCULAR: Unremarkable. PELVIC VISCERA: There is an IUD in the uterus in satisfactory position. There may be a small right ovarian cyst measuring 2 x 2.5 cm. The left ovary is unremarkable. OSSEOUS STRUCTURES: There are is evidence of old trauma to the left proximal femur with intramedullary izzy and compression/lag screw. Mild degenerative changes of the spine. CT/CT abdomen pelvis wo con IMPRESSION: No renal stone or hydronephrosis seen. Stable mild wall thickening of the terminal ileum again suggestive of inflammatory bowel disease. Diverticulosis of the colon. No evidence of diverticulitis. Question small right renal cyst. Fleischner guidelines were followed.
[2021-12-11 04:05] VITALS: BP 150/95; PULSE 110; RESP 20; TEMP 37; O2SAT 99; BMI 32.0
--- NOTE | 2021-12-11 08:28 | ED.GENADULT ---
HPI - General Adult General Chief complaint: Back Pain/Injury Stated complaint: severe R back pain going down leg, going numb Time Seen by Provider: 12/11/21 08:07 Source: patient Mode of arrival: ambulatory Limitations: no limitations History of Present Illness HPI narrative: 46 y/o female with history of Crohn's, lumbar degenerative disc disease, chronic pain, anxiety, insomnia, migraines who presents to the ER with acute onset of right lower back pain that started last night when she was walking up the stairs. She reports the pain is severe and radiates down her right leg, across her groin, and into her abdomen. She does report some nausea because the pain is so severe. She reports the pain is ?acting up my Crohn's. She denies vomiting or diarrhea. She denies falling or any trauma. She reports the pain is shooting and sharp, constant. No urinary symptoms. MD complaint: severe right lower back pain Onset (ago): hour(s) Location: back Radiation: abdomen and flank Severity: severe Severity scale (1-10): >10 Quality: stabbing and sharp Pain Consistency: constant Relieving factors: none Exacerbating factors: movement Associated symptoms: denies other symptoms Treatments prior to arrival: none Related Data Home Medications Medication Instructions Recorded Confirmed levonorgestrel 20 mcg/24 hours (7 1 device INTRAUTERINE ONCE 10/04/20 10/31/21 yrs) 52 mg intrauterine device (Mirena) omeprazole 20 mg capsule,delayed 20 mg PO DAILY 12/05/20 10/31/21 release mesalamine 500 mg 1,000 mg PO TID 04/25/21 10/31/21 capsule,controlled release (Pentasa) sumatriptan succinate 100 mg tablet 0.5 tab PO DAILY MRX1 PRN 04/25/21 10/31/21 cholestyramine (with sugar) 4 gram PO 10/09/21 10/31/21 oral powder dicyclomine 10 mg capsule See Rx Instructions PO QID PRN 10/09/21 10/31/21 adalimumab 40 mg/0.8 mL 40 mg SUBCUT Q2W ea 11/06/21 11/06/21 subcutaneous pen kit (Humira Pen) Previous Rx's Medication Instructions Recorded acetaminophen 325 mg tablet 650 mg PO Q8H PRN 30 Days tab 04/29/21 metronidazole 500 mg tablet 500 mg PO BID 7 Days #14 tab 11/22/21 eszopiclone 3 mg tablet (Lunesta) 3 mg PO BEDTIME PRN 30 Days #30 tab 11/23/21 clonidine HCl 0.1 mg tablet 0.1 mg PO TID PRN 30 Days #90 tab 12/06/21 escitalopram oxalate 10 mg tablet 10 mg PO DAILY 30 Days #30 tab 12/06/21 ondansetron 4 mg disintegrating 4 mg PO Q8H PRN 30 Days #90 tab 12/06/21 tablet tramadol 50 mg tablet 50 mg PO TID PRN 30 Days #90 tab 12/06/21 cyclobenzaprine 10 mg tablet 10 mg PO TID PRN #14 tab 12/11/21 ibuprofen 600 mg tablet 600 mg PO Q8H PRN #14 tab 12/11/21 oxycodone 5 mg tablet 5 mg PO Q4H PRN #10 tab 12/11/21 prednisone 20 mg tablet 40 mg PO DAILY #10 tab 12/11/21 Allergies Allergy/AdvReac Type Severity Reaction Status Date / Time meperidine [From Demerol] Allergy Severe SWELLING,RASH,THROAT Verified 12/11/21 04:12 CLOSES latex [LATEX] Allergy Mild RASH Verified 12/11/21 04:12 codeine [Codeine] AdvReac Intermediate NAUSEA/VOMITING, Verified 12/11/21 04:12 GI upset/vomiting Fish Containing Products AdvReac Unknown NAUSEA/VOMI Verified 12/11/21 04:12 [Fish Product Derivatives] TING trazodone AdvReac Intermediate worsening Uncoded 12/11/21 04:12 anxiety symptoms Review of Systems Review of Systems: Constitutional: No Fever, No Chills ENT/Mouth: No sore throat, No Rhinorrhea, No Swallowing Difficulty Cardiovascular: No Chest Pain, No SOB, No Orthopnea, No Edema Respiratory: No Cough, No Sputum, No Wheezing, No dyspnea Gastrointestinal: No Nausea, No Vomiting, No Diarrhea, + abdominal Pain Genitourinary: No Dysuria, No Urinary Frequency, No Hematuria Musculoskeletal: + joint pain, + Myalgias Skin: No Skin Lesions, No rash Neuro: No Weakness, No Numbness, No Dizziness, No Headache Psych: + Anxiety/Panic, No Depression Heme/Lymph: No Bruising, No Lymphadenopathy Endocrine: No Polyuria, No Polydipsia PMFSH Past Medical History Medical History Anxiety Crohn's colitis Crohn's disease Crohns disease of small intestine Depression 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 History of renal cell cancer (~2014) Insomnia Intractable nausea and vomiting Lumbar degenerative disc disease Migraine Obesity (BMI 30-39.9) Osteoarthritis of hips, bilateral Surgical History History of arthroplasty (~01/2012) History of cryosurgery (~04/20/15) History of intestinal surgery History of removal of calculus of renal pelvis through percutaneous nephrostomy (~10/2015) Family History Family History Father Crohn disease Migraine Mother HTN (hypertension) Vertigo Cervical cancer Maternal Grandmother HTN (hypertension) Hyperlipidemia Diabetes mellitus Paternal Grandfather Diabetes mellitus Other Mental health problem Social History Social History Household Members: Family Housing: House Do you presently have visiting nurse or other home services: No Alcohol intake: current Alcohol intake frequency: holidays/special occasions only Patient Tobacco Use Status: Former Tobacco user Tobacco use type: Cigarette e-Cigarette/Vaping Use: Former Use Second Hand Smoke Exposure: No Advance Directives: No service: No Current occupational status: unemployed Gender identity: Female Physical Exam Vital Signs: Vital Signs: Last Vital Signs Temp 97.8 F 12/11/21 10:26 Pulse 67 12/11/21 13:05 Resp 16 12/11/21 12:42 BP 144/77 H 12/11/21 13:05 Pulse Ox 100 12/11/21 13:05 BMI result Body Mass Index 32.0 Appearance: Alert. Oriented X3. No acute distress. Eyes: Pupils equal, round and reactive to light. ENT: Pharynx normal. Neck: Normal inspection. Neck supple. CVS: Normal heart rate and rhythm. Pulses normal. Respiratory: No respiratory distress. Breath sounds normal. Abdomen: Soft, RLQ tenderness, no rebound or guarding. +BS x4 Back: normal inspection. +CVA tenderness, right upper, middle and lumbar tenderness. Skin: Skin warm and dry. Normal skin color. Normal skin turgor. No rashes. Extremities: No lower extremity edema. +straight leg raise on the right Neuro: Oriented X 3. No motor deficit. No sensory deficit. Course Course Course Narrative: 46-year-old female presenting with severe right lower back pain that radiates down her leg that started when she was walking up some stairs last night. On examination she has CVA tenderness and the pain is radiating to her abdomen. Will need to get CT scan for further evaluation. Will get labs and UA as well. IV Dilaudid ordered for pain. Will reassess. Reevaluation(s) Reevaluation #1: CT of her abdomen shows no acute findings. Her lab workup is unremarkable. Her urinalysis is negative for infection. She reported some improvement in the pain after Dilaudid but reports there is significant spasming in the muscles in her right middle and lower back. Will give a trial of Flexeril, Toradol and Lidoderm patch. Reevaluation #2: Pain started to go back up so, she appears uncomfortable. Given another dose of IV Dilaudid with improvement. She reports she is on chronic tramadol at home that she is tapering down on with Dr. Frank. She does not want to be discharged with any further narcotics. Will plan for discharge with muscle relaxer, anti-inflammatory, and short prednisone course. Medical Decision Making Lab Data Result diagrams: 12/11/21 09:20 12/11/21 11:08 Labs: Lab Results 12/11/21 12/11/21 12/11/21 Range/Units 09:12 09:12 09:20 WBC 8.0 (4.8-10.8) X10*3/uL RBC 4.79 (4.20-5.50) X10*6/uL Hgb 15.0 (12.0-16.0) g/dl Hct 45.4 (37.0-47.0) % MCV 94.8 (80.0-98.0) fL MCH 31.3 (27.0-33.0) pg MCHC 33.0 (31.0-35.0) g/dl RDW 14.2 (11.0-16.0) % Plt Count 263 (160-400) X10*3/uL MPV 10.1 (9.4-12.3) fL Immature Gran % (Auto) 0.5 H (0.0-0.4) % Neut % (Auto) 68.6 (45-73) % Lymph % (Auto) 20.3 (20-40) % [place] % (Auto) 9.2 (2-11) % Eos % (Auto) 0.9 (0-4) % Baso % (Auto) 0.5 (0-2) % Lymph # (Auto) 1.6 (1.2-4.9) X10*3/uL [place] # (Auto) 0.7 (0.1-1.2) X10*3/uL Eos # (Auto) 0.1 (0.0-0.4) X10*3/uL Baso # (Auto) 0.0 (0.0-0.2) X10*3/uL Abs Immat Gran (auto) 0.04 H (0.00-0.03) X10*3/uL Absolute Neuts (auto) 5.5 (2.0-8.3) x10*3/uL Absolute Nucleated RBC 0.000 (0.0-0.012) X10*3/uL Nucleated RBC % (auto) 0.0 (0.0-0.2) /100WBC Sodium (135-145) mmol/L Potassium (3.3-5.1) mmol/L Chloride (96-108) mmol/L Carbon Dioxide (22-29) mmol/L Anion Gap (12-20) BUN (9-16) mg/dL Creatinine (0.5-1.4) mg/dL Estim Creat Clear Calc Estimated GFR Random Glucose (60-115) mg/dL Calcium (8.4-10.2) mg/dL Magnesium (1.6-2.6) mg/dL Total Bilirubin (0.0-1.0) mg/dL Direct Bilirubin (0.0-0.5) mg/dL AST (5-31) U/L ALT (0-31) U/L Alkaline Phosphatase (39-117) U/L Total Protein (6.5-8.0) g/dL Albumin (3.5-5.0) g/dL Urine Color YELLOW Urine Appearance HAZY Urine pH 5.5 (5.0-8.0) Ur Specific [place] >= 1.030 H (1.005-1.025) Urine Protein TRACE (NEG-TRACE) MG/DL Urine Glucose (UA) NEG (NEG) MG/DL Urine Ketones NEG (NEG) MG/DL Urine Blood NEG (NEG) Urine Nitrite NEG (NEG) Ur Leukocyte Esterase NEG (NEG) COVID-19 ([facility]) Negative (Negative) COVID-19 Clin Com See Note 12/11/21 Range/Units 11:08 WBC (4.8-10.8) X10*3/uL RBC (4.20-5.50) X10*6/uL Hgb (12.0-16.0) g/dl Hct (37.0-47.0) % MCV (80.0-98.0) fL MCH (27.0-33.0) pg MCHC (31.0-35.0) g/dl RDW (11.0-16.0) % Plt Count (160-400) X10*3/uL MPV (9.4-12.3) fL Immature Gran % (Auto) (0.0-0.4) % Neut % (Auto) (45-73) % Lymph % (Auto) (20-40) % [place] % (Auto) (2-11) % Eos % (Auto) (0-4) % Baso % (Auto) (0-2) % Lymph # (Auto) (1.2-4.9) X10*3/uL [place] # (Auto) (0.1-1.2) X10*3/uL Eos # (Auto) (0.0-0.4) X10*3/uL Baso # (Auto) (0.0-0.2) X10*3/uL Abs Immat Gran (auto) (0.00-0.03) X10*3/uL Absolute Neuts (auto) (2.0-8.3) x10*3/uL Absolute Nucleated RBC (0.0-0.012) X10*3/uL Nucleated RBC % (auto) (0.0-0.2) /100WBC Sodium 140 (135-145) mmol/L Potassium 4.2 (3.3-5.1) mmol/L Chloride 108 (96-108) mmol/L Carbon Dioxide 21 L (22-29) mmol/L Anion Gap 15 (12-20) BUN 12 (9-16) mg/dL Creatinine 0.75 (0.5-1.4) mg/dL Estim Creat Clear Calc 91.4 Estimated GFR > 60 Random Glucose 80 (60-115) mg/dL Calcium 9.3 (8.4-10.2) mg/dL Magnesium 1.9 (1.6-2.6) mg/dL Total Bilirubin 0.4 (0.0-1.0) mg/dL Direct Bilirubin 0.2 (0.0-0.5) mg/dL AST 13 (5-31) U/L ALT 13 (0-31) U/L Alkaline Phosphatase 83 (39-117) U/L Total Protein 6.8 (6.5-8.0) g/dL Albumin 3.8 (3.5-5.0) g/dL Urine Color Urine Appearance Urine pH (5.0-8.0) Ur Specific [place] (1.005-1.025) Urine Protein (NEG-TRACE) MG/DL Urine Glucose (UA) (NEG) MG/DL Urine Ketones (NEG) MG/DL Urine Blood (NEG) Urine Nitrite (NEG) Ur Leukocyte Esterase (NEG) COVID-19 ([facility]) (Negative) COVID-19 Clin Com Discharge Plan Discharge Clinical Impression: Sciatica Qualifiers: Laterality: right Qualified Code(s): M54.31 - Sciatica, right side Patient Disposition: Home, Self-Care Instructions: Sciatica (ED), Lower Back Exercises (ED) Additional Instructions: Your lab workup was normal. Your CT scan did not show any acute abnormalities to explain your pain - it did show some mild degenerative changes in your spine. Your pain is most likely due to inflammation or irritation of your sciatic nerve. No bending, lifting or twisting. Use ice several times per day for 20 minutes at a time for the next 48 hours and then change to heat. Take medications as prescribed to help with pain and discomfort. Follow up with your Primary Care Doctor this week. If your pain worsens, if you develop new numbness, tingling, weakness, loss of function or incontinence call 911 or come back to the ER right away for evaluation. Prescriptions: New cyclobenzaprine 10 mg tablet 10 mg PO TID PRN (Reason: muscle spasm) Qty: 14 RF: 0 ibuprofen 600 mg tablet 600 mg PO Q8H PRN (Reason: pain) Qty: 14 RF: 0 prednisone 20 mg tablet 40 mg PO DAILY Qty: 10 RF: 0 oxycodone 5 mg tablet 5 mg PO Q4H PRN (Reason: pain) Qty: 10 RF: 0 No Action metronidazole 500 mg tablet 500 mg PO BID 7 Days Qty: 14 RF: 0 eszopiclone [Lunesta] 3 mg tablet 3 mg PO BEDTIME PRN (Reason: insomnia) 30 Days Qty: 30 RF: 0 escitalopram oxalate 10 mg tablet 10 mg PO DAILY 30 Days Qty: 30 RF: 2 sumatriptan succinate 100 mg tablet 0.5 tab PO DAILY MRX1 PRN (Reason: Migraine Headache) RF: 0 Pentasa 500 mg Capsule, Extended Release 1,000 mg PO TID RF: 0 acetaminophen 325 mg Tablet 650 mg PO Q8H PRN (Reason: Pain, Mild (Pain Scale 1-3)) 30 Days RF: 0 Mirena 20 mcg/24 hours (6 yrs) 52 mg intrauterine device 1 device intrauterine ONCE RF: 0 cholestyramine (with sugar) 4 gram powder PO RF: 0 Humira Pen 40 mg/0.8 mL pen injector kit 40 mg subcut Q2W RF: 0 omeprazole 20 mg capsule,delayed release(DR/EC) 20 mg PO DAILY RF: 0 dicyclomine 10 mg capsule See Rx Instructions PO QID PRNRF: 0 ondansetron 4 mg tablet,disintegrating 4 mg PO Q8H PRN (Reason: nausea and vomiting) 30 Days Qty: 90 RF: 0 clonidine HCl 0.1 mg tablet 0.1 mg PO TID PRN (Reason: withdrawal symptoms) 30 Days Qty: 90 RF: 0 tramadol 50 mg tablet 50 mg PO TID PRN (Reason: pain) 30 Days Qty: 90 RF: 0 Referrals: Joni Singh MD [Physician] - 2 days (lower back pain, interested in treatment)
[2021-12-11] MEDS: ondansetron HCL 4 MG/2 ML VIAL IVPUSH (09:21)
[2021-12-11 09:23] VITALS: RESP 16
[2021-12-11] MEDS: HYDROmorphone HCl 1 MG/ML SYRINGE IVPUSH ×2 (09:23→12:42)
[2021-12-11] MEDS: 0.9 % Sodium Chloride 1,000 ML 999 ML IVCONT (09:26)
[2021-12-11 09:31] LABS: Appearance Urine HAZY; Color Urine YELLOW; Glucose Urine UA NEG (NEG); Leukocyte Esterase Urine NEG (NEG); Nitrite Urine NEG (NEG); PH 5.5 (5.0-8.0); Specific Gravity - Urine >= 1.030 (1.005-1.025); Urine Blood NEG (NEG); Urine Ketones NEG (NEG); Urine Protein TRACE MG/DL (NEG-TRACE)
[2021-12-11 09:33] LABS: MANUAL DIFF FLAG NO
[2021-12-11 09:34] LABS: Basophils Percent Auto 0.5 % (0-2); Eosinophils Absolute Auto 0.1 X10*3/uL (0.0-0.4); Eosinophils Percent Auto 0.9 % (0-4); Hematocrit 45.4 % (37.0-47.0); Imm Gran Abs Auto 0.04 X10*3/uL (0.00-0.03); Imm Gran Pct Auto 0.5 % (0.0-0.4); Lymphocytes Absolute Auto 1.6 X10*3/uL (1.2-4.9); Lymphocytes Percent Auto 20.3 % (20-40); Mean Corpuscular Hemoglobin 31.3 pg (27.0-33.0); Mean Corpuscular Volume 94.8 fL (80.0-98.0); Mean Platelet Volume 10.1 fL (9.4-12.3); Monocytes Absolute Auto 0.7 X10*3/uL (0.1-1.2); Monocytes Percent Auto 9.2 % (2-11); Neutrophils Absolute Auto 5.5 x10*3/uL (2.0-8.3); Neutrophils Percent Auto 68.6 % (45-73); Platelet Count 263 X10*3/uL (160-400); Red Blood Count 4.79 X10*6/uL (4.20-5.50); Red Cell Distribution Width 14.2 % (11.0-16.0)
[2021-12-11 09:47] LABS: COVID-19 Test Negative (Negative); IDNOW Serial# 9DD0AD1C
[2021-12-11 10:26] VITALS: BP 153/82; PULSE 84; RESP 16; TEMP 36.6; O2SAT 99
[2021-12-11] MEDS: Cyclobenzaprine HCl 10 MG TABLET PO (10:43)
[2021-12-11] MEDS: Lidocaine 4 % Patch ADH..PATCH 1 PATCH TRANSDERMA (10:44)
[2021-12-11] MEDS: Ketorolac Tromethamine 30 MG/ML VIAL IVPUSH (10:44)
[2021-12-11 11:47] LABS: Alanine Aminotransferase 13 U/L (0-31); Albumin Level 3.8 g/dL (3.5-5.0); Alkaline Phosphatase 83 U/L (39-117); Anion Gap 15 (12-20); Aspartate Amino Transferase 13 U/L (5-31); Bilirubin Direct 0.2 mg/dL (0.0-0.5); Bilirubin Total 0.4 mg/dL (0.0-1.0); Blood Urea Nitrogen 12 mg/dL (9-16); Calcium 9.3 mg/dL (8.4-10.2); Carbon Dioxide 21 mmol/L (22-29); Chloride 108 mmol/L (96-108); Creatinine Clr Calc Pharmacy 91.4; Estimated Glomerular Filt Rate > 60; Glucose Random 80 mg/dL (60-115); Magnesium 1.9 mg/dL (1.6-2.6); Potassium 4.2 mmol/L (3.3-5.1); Sodium 140 mmol/L (135-145); Total Protein 6.8 g/dL (6.5-8.0)
[2021-12-11] MEDS: predniSONE 20 MG TABLET 40 MG PO (12:39)
[2021-12-11] MEDS: Acetaminophen 325 MG TABLET 975 MG PO (12:40)
[2021-12-11 12:42] VITALS: RESP 16
[2021-12-11 13:05] VITALS: BP 144/77; PULSE 67; O2SAT 100
== END 2021-12-11 13:12 | disposition home or self-care (01) ==
PROVIDERS: Physician Assistant; Emergency Provider Emergency Medicine; PCP Internal Medicine
DX: M54.41 Lumbago with sciatica, right side (principal); Z20.822 Contact with and (suspected) exposure to COVID-19; M51.36 Other intervertebral disc degeneration, lumbar region
CPT/HCPCS: 74176; 80048; 80076; 81003; 83735; 85025; 87635; 96361; 96374; 96375; 96376; 99284; J1170; J1885; J2405

== ENCOUNTER 2021-12-14 13:06 | Outpatient (REF) | payer OTHER, SELFPAY ==
--- NOTE | ~2021-12-14 | CT_ITS ---
EXAMINATION: CT HEAD WITHOUT CONTRAST CLINICAL INFORMATION: Osteomyelitis, unspecified site COMPARISON: Previous head CT October 2014 TECHNIQUE: Contiguous axial imaging was performed from the skull base to vertex without intravenous administration of contrast. This CT examination was performed using dose optimization techniques as appropriate, variously including the following: *Automated exposure control *Adjustment of mA and/or kV according to patient size (this includes techniques or standardized protocols for targeted exams where dose is matched to indication/reason for exam; i.e. extremities or head) *Use of iterative reconstruction technique DLP: 646 mGy-cm FINDINGS: There is no evidence of acute intracranial hemorrhage or territorial infarction. No abnormal mass effect or midline shift is seen. Madrigal to white matter differentiation is well preserved. No extra-axial fluid collections are identified. The ventricles are normal in size. There is no abnormal attenuation within the brain parenchyma. The osseous structures and soft tissues are normal. The mastoid air cells and visualized portions of the paranasal sinuses are well aerated. CT/CT head/brain wo con IMPRESSION: Unremarkable exam.
== END 2021-12-14 13:07 | disposition home or self-care (01) ==
LOC: HO.CT 13:06
PROVIDERS: PCP Internal Medicine; Visit Provider Internal Medicine
DX: M89.50 Osteolysis, unspecified site (principal)
CPT/HCPCS: 70450

== ENCOUNTER → 2021-12-26 10:54 | Outpatient (BNVA) | payer OTHER, SELFPAY | PROVIDERS: PCP Internal Medicine; Referring Provider Internal Medicine; Visit Provider Nurse Practitioner Family | DX: G47.00 Insomnia, unspecified (principal); G47.9 Sleep disorder, unspecified; R06.83 Snoring; R53.83 Other fatigue | CPT/HCPCS: 99202 ==

== ENCOUNTER 2022-01-18 12:23 | Outpatient (REF) | payer OTHER, SELFPAY ==
[2022-01-18 12:31] LABS: MANUAL DIFF FLAG NO
[2022-01-18 13:01] LABS: Basophils Percent Auto 0.4 % (0-2); Eosinophils Absolute Auto 0.1 X10*3/uL (0.0-0.4); Eosinophils Percent Auto 1.9 % (0-4); Hematocrit 45.7 % (37.0-47.0); Hemoglobin 14.7 g/dl (12.0-16.0); Imm Gran Abs Auto 0.03 X10*3/uL (0.00-0.03); Imm Gran Pct Auto 0.4 % (0.0-0.4); Lymphocytes Absolute Auto 1.8 X10*3/uL (1.2-4.9); Lymphocytes Percent Auto 24.2 % (20-40); Mean Corpuscular HGB Conc 32.2 g/dl (31.0-35.0); Mean Corpuscular Hemoglobin 30.2 pg (27.0-33.0); Mean Corpuscular Volume 93.8 fL (80.0-98.0); Monocytes Absolute Auto 0.7 X10*3/uL (0.1-1.2); Monocytes Percent Auto 8.9 % (2-11); Neutrophils Absolute Auto 4.9 x10*3/uL (2.0-8.3); Neutrophils Percent Auto 64.2 % (45-73); Platelet Count 317 X10*3/uL (160-400); Red Blood Count 4.87 X10*6/uL (4.20-5.50); Red Cell Distribution Width 13.2 % (11.0-16.0); White Blood Count 7.6 X10*3/uL (4.8-10.8)
[2022-01-18 13:32] LABS: Alanine Aminotransferase 15 U/L (0-31); Albumin Level 3.9 g/dL (3.5-5.0); Alkaline Phosphatase 92 U/L (39-117); Anion Gap 11 (12-20); Aspartate Amino Transferase 16 U/L (5-31); Bilirubin Total 0.3 mg/dL (0.0-1.0); Blood Urea Nitrogen 13 mg/dL (9-16); Calcium 9.9 mg/dL (8.4-10.2); Carbon Dioxide 28 mmol/L (22-29); Chloride 103 mmol/L (96-108); Estimated Glomerular Filt Rate > 60; Glucose Random 101 mg/dL (60-115); Potassium 4.8 mmol/L (3.3-5.1); Sodium 137 mmol/L (135-145)
[2022-01-18 13:52] LABS: Free T4 (Free Thyroxine) 1.05 ng/dL (0.71-1.85); Thyroid Stimulating Hormone 1.85 uIU/mL (0.32-4.0)
== END 2022-01-18 12:24 | disposition home or self-care (01) ==
LOC: HO.LAB 12:23
PROVIDERS: PCP Internal Medicine; Visit Provider Internal Medicine
DX: E66.9 Obesity, unspecified (principal); R63.8 Other symptoms and signs concerning food and fluid intake
CPT/HCPCS: 36415; 80053; 84439; 84443; 85025

== ENCOUNTER 2022-01-31 03:56 | Emergency (ER) | payer OTHER, SELFPAY ==
--- NOTE | ~2022-01-31 | CT_ITS ---
EXAMINATION: CT ABDOMEN AND PELVIS WITHOUT CONTRAST CLINICAL INFORMATION: Abdominal pain. History of Crohn's disease. COMPARISON: CT abdomen 12/11/2021 TECHNIQUE: Multidetector volumetric imaging was performed from the superior aspect of the liver through the pubic symphysis. Sagittal and coronal reformatted images were obtained on the technologist's workstation. This CT examination was performed using dose optimization techniques as appropriate, variously including the following: *Automated exposure control *Adjustment of mA and/or kV according to patient size (this includes techniques or standardized protocols for targeted exams where dose is matched to indication/reason for exam; i.e. extremities or head) *Use of iterative reconstruction technique DLP: 614 mGy-cm FINDINGS: LUNG BASES: The visualized lung bases are unremarkable. LIVER, GALLBLADDER, AND BILIARY TREE: The liver is normal in size, shape, and attenuation. No focal hepatic lesion or biliary ductal dilatation is present. The gallbladder is unremarkable with no evidence of radiopaque gallstones, gallbladder wall thickening, or obvious pericholecystic inflammatory changes. PANCREAS: Unremarkable. SPLEEN: Unremarkable. ADRENAL GLANDS: Unremarkable. KIDNEYS AND URETERS: The kidneys are normal in size, shape, and attenuation. No hydronephrosis, hydroureter, or calculi seen. No perinephric stranding. BLADDER: Nondistended limiting evaluation. GASTROINTESTINAL TRACT: Redemonstrated is wall thickening and edema in the terminal ileum. Appearance is similar to prior CT of 12/11/2021. Findings suggestive of inflammatory bowel disease. Colonic diverticulosis. No evidence of diverticulitis. Small and large bowel loops are otherwise unremarkable. Stomach is nondistended. Appendix appears unremarkable. No free fluid. ABDOMINAL WALL: Small umbilical hernia containing fat. There is soft tissue density along the inferior aspect of the umbilical hernia, more prominent from previous. LYMPH NODES: No adenopathy seen. VASCULAR: Normal caliber aorta. PELVIC VISCERA: Anteverted uterus containing IUD. 2.2 cm right adnexal/ovarian cyst. OSSEOUS STRUCTURES: No aggressive lytic or sclerotic process is seen. Orthopedic hardware in the proximal left femur. Mild degenerative changes in the spine. CT/CT abdomen pelvis wo con IMPRESSION: 1. Redemonstrated is wall thickening of the terminal ileum, similar to previous, suggestive of inflammatory bowel disease. 2. Colonic diverticulosis without diverticulitis. 3. Small umbilical hernia containing fat. There is also some soft tissue density/thickening the inferior aspect of the hernia within the subcutaneous tissues, more prominent as compared to previous, which could represent an inflammatory or infectious process. Please clinically correlate. 4. Right adnexal/ovarian 2.2 cm cyst. Fleischner guidelines were followed.
[2022-01-31 03:59] VITALS: BP 138/85; PULSE 97; RESP 20; TEMP 36.8; O2SAT 100; BMI 32.9
[2022-01-31 04:15] LABS: Basophils Percent Auto 0.6 % (0-2); Eosinophils Absolute Auto 0.1 X10*3/uL (0.0-0.4); Eosinophils Percent Auto 1.4 % (0-4); Hemoglobin 15.2 g/dl (12.0-16.0); Imm Gran Abs Auto 0.02 X10*3/uL (0.00-0.03); Imm Gran Pct Auto 0.3 % (0.0-0.4); Lymphocytes Absolute Auto 1.6 X10*3/uL (1.2-4.9); Lymphocytes Percent Auto 21.5 % (20-40); MANUAL DIFF FLAG NO; Mean Corpuscular HGB Conc 32.3 g/dl (31.0-35.0); Mean Corpuscular Hemoglobin 30.2 pg (27.0-33.0); Mean Corpuscular Volume 93.3 fL (80.0-98.0); Mean Platelet Volume 9.9 fL (9.4-12.3); Monocytes Absolute Auto 0.8 X10*3/uL (0.1-1.2); Monocytes Percent Auto 11.1 % (2-11); Neutrophils Absolute Auto 4.7 x10*3/uL (2.0-8.3); Neutrophils Percent Auto 65.1 % (45-73); Platelet Count 291 X10*3/uL (160-400); Red Blood Count 5.04 X10*6/uL (4.20-5.50); Red Cell Distribution Width 13.3 % (11.0-16.0); White Blood Count 7.2 X10*3/uL (4.8-10.8)
[2022-01-31 04:28] VITALS: BP 116/44; PULSE 83; RESP 20; TEMP 36.8; O2SAT 98
[2022-01-31 04:29] LABS: COVID-19 Test Negative (Negative)
[2022-01-31 04:37] LABS: Anion Gap 15 (12-20); Blood Urea Nitrogen 14 mg/dL (9-16); Calcium 9.9 mg/dL (8.4-10.2); Carbon Dioxide 22 mmol/L (22-29); Chloride 106 mmol/L (96-108); Creatinine Clr Calc Pharmacy 85.9; Estimated Glomerular Filt Rate > 60; Glucose Random 98 mg/dL (60-115); Potassium 4.8 mmol/L (3.3-5.1); Sodium 138 mmol/L (135-145)
--- NOTE | 2022-01-31 04:46 | ED.ABDPAIN ---
HPI - Abdominal Pain General Chief Complaint: Abdominal Pain Stated Complaint: Abd pain Time Seen by Provider: 01/31/22 04:43 Source: patient Mode of arrival: ambulatory Limitations: no limitations History of Present Illness HPI narrative: Patient with history of Crohn's disease last flare was few months ago on Humira for last 1 year comes here for pain in lower abdomen associated with diarrhea no blood in the stool no fever no chills nauseated with dry heaves, no vomiting as such , patient feels pain same as when she had Crohn disease flare up Related Data Home Medications Medication Instructions Recorded Confirmed levonorgestrel 20 mcg/24 hours (7 1 device INTRAUTERINE ONCE 10/04/20 01/18/22 yrs) 52 mg intrauterine device (Mirena) omeprazole 20 mg capsule,delayed 20 mg PO DAILY 12/05/20 01/18/22 release mesalamine 500 mg 1,000 mg PO TID 04/25/21 01/18/22 capsule,controlled release (Pentasa) sumatriptan succinate 100 mg tablet 0.5 tab PO DAILY MRX1 PRN 04/25/21 01/18/22 cholestyramine (with sugar) 4 gram PO 10/09/21 01/18/22 oral powder dicyclomine 10 mg capsule See Rx Instructions PO QID PRN 10/09/21 01/18/22 adalimumab 40 mg/0.8 mL 40 mg SUBCUT Q2W ea 11/06/21 01/18/22 subcutaneous pen kit (Humira Pen) Previous Rx's Medication Instructions Recorded acetaminophen 325 mg tablet 650 mg PO Q8H PRN 30 Days tab 04/29/21 escitalopram oxalate 10 mg tablet 10 mg PO DAILY 30 Days #30 tab 12/06/21 cyclobenzaprine 10 mg tablet 10 mg PO TID PRN #14 tab 12/11/21 ibuprofen 600 mg tablet 600 mg PO Q8H PRN #14 tab 12/11/21 clonidine HCl 0.1 mg tablet 0.1 mg PO TID PRN 30 Days #90 tab 12/27/21 ondansetron 4 mg disintegrating 4 mg PO Q8H PRN 30 Days #90 tab 01/05/22 tablet suvorexant 5 mg tablet (Belsomra) 5 mg PO BEDTIME #30 tab 01/10/22 tramadol 50 mg tablet 50 mg PO BID PRN 30 Days #60 tab 01/30/22 Allergies Allergy/AdvReac Type Severity Reaction Status Date / Time meperidine [From Demerol] Allergy Severe SWELLING,RASH,THROAT Verified 01/18/22 12:38 CLOSES latex [LATEX] Allergy Mild RASH Verified 01/18/22 12:38 codeine [Codeine] AdvReac Intermediate NAUSEA/VOMITING, Verified 01/18/22 12:38 GI upset/vomiting Fish Containing Products AdvReac Unknown NAUSEA/VOMI Verified 01/18/22 12:38 [Fish Product Derivatives] TING trazodone AdvReac Intermediate worsening Uncoded 01/18/22 12:38 anxiety symptoms Review of Systems Review of Systems Yes all other systems are reviewed and are negative [facility] Past Medical History Medical History Anxiety Crohn's colitis Crohn's disease Crohns disease of small intestine Depression 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 History of renal cell cancer (~2014) Insomnia Intractable nausea and vomiting Lumbar degenerative disc disease Migraine Obesity (BMI 30-39.9) Osteoarthritis of hips, bilateral Surgical History History of arthroplasty (~01/2012) History of cryosurgery (~04/20/15) History of intestinal surgery History of removal of calculus of renal pelvis through percutaneous nephrostomy (~10/2015) Family History Family History Father Crohn disease Migraine Mother HTN (hypertension) Vertigo Cervical cancer Maternal Grandmother HTN (hypertension) Hyperlipidemia Diabetes mellitus Paternal Grandfather Diabetes mellitus Other Mental health problem Social History Social History Household Members: Family Housing: House Do you presently have visiting nurse or other home services: No Alcohol intake: current Alcohol intake frequency: holidays/special occasions only Patient Tobacco Use Status: Former Tobacco user Tobacco use type: Cigarette e-Cigarette/Vaping Use: Former Use Second Hand Smoke Exposure: No Advance Directives: No Patient : No service: No Current occupational status: unemployed Gender identity: Female Physical Exam ED Vital Signs: Vital Signs - 24 hr 01/31/22 03:59 01/31/22 04:28 01/31/22 06:00 Temperature 98.2 F 98.3 F 98.3 F Pulse Rate 97 83 65 Respiratory Rate 20 20 16 Blood Pressure 138/85 116/44 L 121/67 Pulse Oximetry 100 98 100 BMI result Body Mass Index 32.9 Appearance: Alert. Oriented X3. No acute distress. Eyes: PERRLA, No Nystagmus ENT: Pharynx normal. Oral Mucosa moist Neck: Normal inspection. Neck supple. CVS: Normal heart rate and rhythm. Pulses normal. Respiratory: No respiratory distress. Equal air entry bilateral, no wheezing/rales/rhonchi Abdomen: Soft diffuse lower abdominal tenderness no rebound tenderness or guarding Bowel sounds are present, no mass palpable, no CVA tenderness Skin: Skin warm and dry. Normal skin color. Normal skin turgor. Extremities: No lower extremity edema. No calf tenderness Neuro: Oriented X 3. No motor deficit. No sensory deficit.No cerebellar signs , cranial nerves II-XII intact MDM - Abdominal Pain MDM Narrative Medical decision making narrative: Patient with lower abdominal pain with diarrhea lab workup was negative , CRP is normal sed rate is normal unlikely flare up of Crohn disease, awaiting for the CT scan results. Dr. Morales to review the CT scan and dispo the patient Lab Data Attestation: I reviewed the patient's lab results. Result diagrams: 01/31/22 04:08 01/31/22 04:08 Labs: Lab Results 01/31/22 01/31/22 01/31/22 Range/Units 04:08 04:08 04:08 WBC 7.2 (4.8-10.8) X10*3/uL RBC 5.04 (4.20-5.50) X10*6/uL Hgb 15.2 (12.0-16.0) g/dl Hct 47.0 (37.0-47.0) % MCV 93.3 (80.0-98.0) fL MCH 30.2 (27.0-33.0) pg MCHC 32.3 (31.0-35.0) g/dl RDW 13.3 (11.0-16.0) % Plt Count 291 (160-400) X10*3/uL MPV 9.9 (9.4-12.3) fL Immature Gran % (Auto) 0.3 (0.0-0.4) % Neut % (Auto) 65.1 (45-73) % Lymph % (Auto) 21.5 (20-40) % Mason % (Auto) 11.1 H (2-11) % Eos % (Auto) 1.4 (0-4) % Baso % (Auto) 0.6 (0-2) % Lymph # (Auto) 1.6 (1.2-4.9) X10*3/uL Mason # (Auto) 0.8 (0.1-1.2) X10*3/uL Eos # (Auto) 0.1 (0.0-0.4) X10*3/uL Baso # (Auto) 0.0 (0.0-0.2) X10*3/uL Abs Immat Gran (auto) 0.02 (0.00-0.03) X10*3/uL Absolute Neuts (auto) 4.7 (2.0-8.3) x10*3/uL Absolute Nucleated RBC 0.000 (0.0-0.012) X10*3/uL Nucleated RBC % (auto) 0.0 (0.0-0.2) /100WBC ESR 16 (0-20) MM/HR Sodium 138 (135-145) mmol/L Potassium 4.8 (3.3-5.1) mmol/L Chloride 106 (96-108) mmol/L Carbon Dioxide 22 (22-29) mmol/L Anion Gap 15 (12-20) BUN 14 (9-16) mg/dL Creatinine 0.81 (0.5-1.4) mg/dL Estim Creat Clear Calc 85.9 Estimated GFR > 60 Random Glucose 98 (60-115) mg/dL Calcium 9.9 (8.4-10.2) mg/dL Total Bilirubin 0.4 (0.0-1.0) mg/dL Direct Bilirubin 0.2 (0.0-0.5) mg/dL AST 16 (5-31) U/L ALT 16 (0-31) U/L Alkaline Phosphatase 91 (39-117) U/L C-Reactive Protein 0.41 (< or = 0.50) mg/dL Total Protein 7.3 (6.5-8.0) g/dL Albumin 4.0 (3.5-5.0) g/dL COVID-19 ([facility]) (Negative) COVID-19 Clin Com 01/31/22 Range/Units 04:10 WBC (4.8-10.8) X10*3/uL RBC (4.20-5.50) X10*6/uL Hgb (12.0-16.0) g/dl Hct (37.0-47.0) % MCV (80.0-98.0) fL MCH (27.0-33.0) pg MCHC (31.0-35.0) g/dl RDW (11.0-16.0) % Plt Count (160-400) X10*3/uL MPV (9.4-12.3) fL Immature Gran % (Auto) (0.0-0.4) % Neut % (Auto) (45-73) % Lymph % (Auto) (20-40) % Mason % (Auto) (2-11) % Eos % (Auto) (0-4) % Baso % (Auto) (0-2) % Lymph # (Auto) (1.2-4.9) X10*3/uL Mason # (Auto) (0.1-1.2) X10*3/uL Eos # (Auto) (0.0-0.4) X10*3/uL Baso # (Auto) (0.0-0.2) X10*3/uL Abs Immat Gran (auto) (0.00-0.03) X10*3/uL Absolute Neuts (auto) (2.0-8.3) x10*3/uL Absolute Nucleated RBC (0.0-0.012) X10*3/uL Nucleated RBC % (auto) (0.0-0.2) /100WBC ESR (0-20) MM/HR Sodium (135-145) mmol/L Potassium (3.3-5.1) mmol/L Chloride (96-108) mmol/L Carbon Dioxide (22-29) mmol/L Anion Gap (12-20) BUN (9-16) mg/dL Creatinine (0.5-1.4) mg/dL Estim Creat Clear Calc Estimated GFR Random Glucose (60-115) mg/dL Calcium (8.4-10.2) mg/dL Total Bilirubin (0.0-1.0) mg/dL Direct Bilirubin (0.0-0.5) mg/dL AST (5-31) U/L ALT (0-31) U/L Alkaline Phosphatase (39-117) U/L C-Reactive Protein (< or = 0.50) mg/dL Total Protein (6.5-8.0) g/dL Albumin (3.5-5.0) g/dL COVID-19 ([facility]) Negative (Negative) COVID-19 Clin Com See Note Discharge Plan Discharge Clinical Impression: Acute gastroenteritis Instructions: Gastroenteritis (ED) Additional Instructions: At this time there is no Crohn disease flare up by labs or CT scan Drink plenty of fluids Continue to take her dicyclomine and 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 with your completions engineer Prescriptions: No Action escitalopram oxalate 10 mg tablet 10 mg PO DAILY 30 Days Qty: 30 2RF clonidine HCl 0.1 mg tablet 0.1 mg PO TID PRN (Reason: anxiety) 30 Days Qty: 90 2RF ondansetron 4 mg tablet,disintegrating 4 mg PO Q8H PRN (Reason: nausea and vomiting) 30 Days Qty: 90 0RF Belsomra 5 mg tablet 5 mg PO BEDTIME Qty: 30 2RF tramadol 50 mg tablet 50 mg PO BID PRN (Reason: pain) 30 Days Qty: 60 0RF sumatriptan succinate 100 mg tablet 0.5 tab PO DAILY MRX1 PRN (Reason: Migraine Headache) 0RF Pentasa 500 mg Capsule, Extended Release 1,000 mg PO TID 0RF acetaminophen 325 mg Tablet 650 mg PO Q8H PRN (Reason: Pain, Mild (Pain Scale 1-3)) 30 Days 0RF cyclobenzaprine 10 mg tablet 10 mg PO TID PRN (Reason: muscle spasm) Qty: 14 0RF ibuprofen 600 mg tablet 600 mg PO Q8H PRN (Reason: pain) Qty: 14 0RF Mirena 20 mcg/24 hours (6 yrs) 52 mg intrauterine device 1 device intrauterine ONCE 0RF cholestyramine (with sugar) 4 gram powder PO 0RF Humira Pen 40 mg/0.8 mL pen injector kit 40 mg subcut Q2W 0RF omeprazole 20 mg capsule,delayed release(DR/EC) 20 mg PO DAILY 0RF dicyclomine 10 mg capsule See Rx Instructions PO QID PRN0RF Rx Instructions: Take 1 to 2 tablets PO 4 times a day PRN;
[2022-01-31] MEDS: 0.9 % Sodium Chloride 1,000 ML 999 ML IV (05:17)
[2022-01-31] MEDS: methylPREDNISolone Sod Succ 125 MG/2 ML VIAL IVPUSH (05:18)
[2022-01-31] MEDS: ondansetron HCL 4 MG/2 ML VIAL IVPUSH (05:18)
[2022-01-31] MEDS: Morphine Sulfate 4 MG/ML CARTRIDGE IVPUSH (05:18)
[2022-01-31 05:19] LABS: Alanine Aminotransferase 16 U/L (0-31); Alkaline Phosphatase 91 U/L (39-117); Aspartate Amino Transferase 16 U/L (5-31); Bilirubin Direct 0.2 mg/dL (0.0-0.5); Bilirubin Total 0.4 mg/dL (0.0-1.0); C Reactive Protein 0.41 mg/dL (< or = 0.50); Total Protein 7.3 g/dL (6.5-8.0)
[2022-01-31 05:45] LABS: Erythrocyte Sedimentation Rate 16 MM/HR (0-20)
[2022-01-31] MEDS: HYDROmorphone HCl 0.5 MG/0.5 ML SYRINGE IVPUSH (05:47)
[2022-01-31 06:00] VITALS: BP 121/67; PULSE 65; RESP 16; TEMP 36.8; O2SAT 100
[2022-01-31 06:56] LABS: Appearance Urine CLEAR; Color Urine YELLOW; Glucose Urine UA NEG (NEG); Leukocyte Esterase Urine NEG (NEG); Nitrite Urine NEG (NEG); Specific Gravity - Urine 1.025 (1.005-1.025); Urine Blood NEG (NEG); Urine Ketones NEG (NEG); Urine Protein NEG (NEG-TRACE)
[2022-01-31 06:57] LABS: Urine Pregnancy NEGATIVE (NEGATIVE)
[2022-01-31 06:58] LABS: UPreg QC Valid YES
[2022-01-31 08:13] VITALS: PULSE 92; RESP 20; O2SAT 99
== END 2022-01-31 08:14 | disposition home or self-care (01) ==
PROVIDERS: Emergency Provider Internal Medicine; PCP Internal Medicine
DX: R10.9 Unspecified abdominal pain (principal); K52.9 Noninfective gastroenteritis and colitis, unspecified; Z20.822 Contact with and (suspected) exposure to COVID-19; Z87.891 Personal history of nicotine dependence; Z79.899 Other long term (current) drug therapy
CPT/HCPCS: 74176; 80048; 80076; 81003; 81025; 85025; 85652; 86140; 87635; 96361; 96374; 96375; 99284; J1170; J2270; J2405; J2930

== ENCOUNTER → 2022-02-05 09:57 | Outpatient (BNVA) | payer OTHER, SELFPAY | PROVIDERS: PCP Internal Medicine; Referring Provider Internal Medicine; Visit Provider Internal Medicine Gastroenterology | DX: K50.119 Crohn's disease of large intestine with unspecified complications (principal); R10.9 Unspecified abdominal pain | CPT/HCPCS: 99212 ==

== ENCOUNTER 2022-02-10 10:17 | Outpatient (REF) | payer OTHER, SELFPAY ==
[2022-02-10 11:02] LABS: MANUAL DIFF FLAG NO
[2022-02-10 11:22] LABS: Basophils Percent Auto 0.4 % (0-2); Eosinophils Absolute Auto 0.1 X10*3/uL (0.0-0.4); Eosinophils Percent Auto 1.4 % (0-4); Hematocrit 45.8 % (37.0-47.0); Hemoglobin 14.6 g/dl (12.0-16.0); Imm Gran Abs Auto 0.03 X10*3/uL (0.00-0.03); Imm Gran Pct Auto 0.4 % (0.0-0.4); Lymphocytes Absolute Auto 1.4 X10*3/uL (1.2-4.9); Lymphocytes Percent Auto 16.8 % (20-40); Mean Corpuscular HGB Conc 31.9 g/dl (31.0-35.0); Mean Corpuscular Hemoglobin 30.1 pg (27.0-33.0); Mean Corpuscular Volume 94.4 fL (80.0-98.0); Mean Platelet Volume 10.1 fL (9.4-12.3); Monocytes Absolute Auto 0.7 X10*3/uL (0.1-1.2); Monocytes Percent Auto 8.7 % (2-11); Neutrophils Absolute Auto 5.9 x10*3/uL (2.0-8.3); Neutrophils Percent Auto 72.3 % (45-73); Platelet Count 316 X10*3/uL (160-400); Red Blood Count 4.85 X10*6/uL (4.20-5.50); Red Cell Distribution Width 13.2 % (11.0-16.0); White Blood Count 8.1 X10*3/uL (4.8-10.8)
[2022-02-10 11:42] LABS: Alanine Aminotransferase 13 U/L (0-31); Albumin Level 3.8 g/dL (3.5-5.0); Alkaline Phosphatase 98 U/L (39-117); Anion Gap 15 (12-20); Aspartate Amino Transferase 13 U/L (5-31); Bilirubin Total 0.4 mg/dL (0.0-1.0); Blood Urea Nitrogen 13 mg/dL (9-16); C Reactive Protein 0.93 mg/dL (< or = 0.50); Calcium 9.6 mg/dL (8.4-10.2); Carbon Dioxide 25 mmol/L (22-29); Chloride 104 mmol/L (96-108); Estimated Glomerular Filt Rate > 60; Glucose Random 109 mg/dL (60-115); Iron 80 mcg/dL (30-160); Percent Iron Saturation 25 % (15-50); Potassium 4.5 mmol/L (3.3-5.1); Sodium 139 mmol/L (135-145); Total Iron Binding Capacity 318 mcg/dL (228-428); Total Protein 6.8 g/dL (6.5-8.0); Unsaturated Iron Binding 238 ug/dL
[2022-02-10 11:58] LABS: Erythrocyte Sedimentation Rate 16 MM/HR (0-20)
[2022-02-10 12:15] LABS: Ferritin 37 ng/mL (10-250); Vitamin D 25-OH Total 19.6 ng/mL (>30)
[2022-02-12 04:24] LABS: Vitamin B12 338 pg/mL (200-900)
[2022-02-14 00:13] LABS: Zinc 65 mcg/dL (60-130)
[2022-02-14 20:21] LABS: Transglutaminase Ab IgG <1.0 U/mL; Transglutaminase IgA <1.0 U/mL
[2022-02-15 11:05] LABS: Vitamin C 0.1 mg/dL (0.3-2.7)
[2022-02-15 14:25] LABS: Vitamin B6 3.9 ng/mL (2.1-21.7)
[2022-02-15 20:52] LABS: Beta-Gamma Tocopherol 1.6 mg/L (<=4.3); Nicotinamide <20 ng/mL; Vit B3 - Nicotinic Acid <20 ng/mL; Vitamin A 81 mcg/dL (38-98)
[2022-02-17 15:40] LABS: Vitamin B5 (Pantothenic Acid) 42 ng/mL (<275)
[2022-02-23 14:26] LABS: Vitamin K1 314 pg/mL (130-1500)
[2022-02-27 22:57] LABS: Adalimumab Drug Level 2.1 mcg/mL; Anti-Adalimumab Antibody >100 AU (<10)
[2022-03-01 13:15] LABS: Adalimumab Drug Level <0.8 mcg/mL; Anti-Adalimumab Antibody >100 AU (<10)
== END 2022-02-10 10:18 | disposition home or self-care (01) ==
LOC: HO.LAB 10:17
PROVIDERS: Absent Provider Internal Medicine; PCP Internal Medicine; Visit Provider Internal Medicine Gastroenterology
DX: K50.80 Crohn's disease of both small and large intestine without complications (principal); R10.9 Unspecified abdominal pain; K75.81 Nonalcoholic steatohepatitis (NASH); G89.29 Other chronic pain; R10.33 Periumbilical pain
CPT/HCPCS: 36415; 80053; 80145; 82180; 82306; 82607; 82728; 82746; 83520; 83540; 84207; 84446; 84590; 84591; 84597; 84630; 85025; 85652; 86140; 86364

== ENCOUNTER 2022-02-13 08:26 | Outpatient (REF) | payer OTHER, SELFPAY ==
[2022-02-17 22:46] LABS: Fecal Fat Qualitative Normal (Normal)
== END 2022-02-13 08:27 | disposition home or self-care (01) ==
LOC: HO.LNP 08:26
PROVIDERS: Visit Provider Internal Medicine Gastroenterology
DX: K50.10 Crohn's disease of large intestine without complications (principal); R10.9 Unspecified abdominal pain
CPT/HCPCS: 82705

== ENCOUNTER 2022-02-21 10:07 | Emergency (ER) | payer OTHER, SELFPAY ==
--- NOTE | ~2022-02-21 | CT_ITS ---
EXAMINATION: CT ABDOMEN AND PELVIS WITH CONTRAST CLINICAL INFORMATION: Abdominal pain, history of Crohn's disease. COMPARISON: CT scan of the abdomen and pelvis dated 01/31/2022 and 12/11/2021. TECHNIQUE: Multidetector volumetric images were obtained from the superior aspect of the liver through the pubic symphysis following administration 85 mL of Omnipaque 350 intravenous contrast. Sagittal and coronal reformatted images were obtained on the technologist's workstation. Oral contrast: No This CT examination was performed using dose optimization techniques as appropriate, variously including the following: *Automated exposure control *Adjustment of mA and/or kV according to patient size (this includes techniques or standardized protocols for targeted exams where dose is matched to indication/reason for exam; i.e. extremities or head) *Use of iterative reconstruction technique DLP: 712 mGy-cm FINDINGS: LUNG BASES: The visualized lung bases are unremarkable. LIVER, GALLBLADDER, AND BILIARY TREE: Unremarkable. PANCREAS: Unremarkable. SPLEEN: Unremarkable. ADRENAL GLANDS: Unremarkable. KIDNEYS AND URETERS: Cortical defect is again seen posteriorly in the interpolar right kidney without significant change. No nephrolithiasis or hydronephrosis. BLADDER: Unremarkable. GASTROINTESTINAL TRACT: The stomach and proximal small bowel are unremarkable. There has been interval increase in mild to moderate mural thickening in the terminal ileum and a segment approximately 10 cm long extending from the level the ileocecal valve. Mural thickening measures up to 1.2 cm which is seen most prominent proximally (image 33, series 6). Proximal to this is mild dilatation with mild equalization. The appendix is unremarkable. Scattered mild to moderate diverticulosis is seen most pronounced in the distal descending and sigmoid colon without surrounding abnormality. The rectum is unremarkable. ABDOMINAL WALL: Small fat-containing umbilical hernia. LYMPH NODES: Normal. VASCULAR: Unremarkable. PELVIC VISCERA: Anteverted/anteflexed uterus with IUD in place. No adnexal abnormality. OSSEOUS STRUCTURES: Unremarkable. CT/CT abdomen pelvis w con IMPRESSION: 1. Interval increase in mural thickening in the terminal ileum suggesting an acute process consistent with Crohn's disease. Mild dilatation is seen proximal to the abnormal mural thickening in the distal small bowel with equalization, but no overt obstruction. 2. Other incidental findings detailed above without significant change or acute abnormality. Fleischner guidelines were followed.
[2022-02-21 10:13] VITALS: BP 137/98; PULSE 90; RESP 18; TEMP 36.8; O2SAT 99; BMI 32.9
[2022-02-21 10:40] LABS: COVID-19 Test Negative (Negative); IDNOW Serial# 55D5AD1C; Influenza A Negative (Negative); Influenza B2 Negative (Negative)
--- NOTE | 2022-02-21 11:18 | ECG_ITS ---
Test Reason : CHEST PAIN Blood Pressure : / mmHG Vent. Rate : 078 BPM Atrial Rate : 078 BPM P-R Int : 152 ms QRS Dur : 078 ms QT Int : 366 ms P-R-T Axes : 027 023 044 degrees QTc Int : 417 ms Normal sinus rhythm Normal ECG When compared with ECG of 12-JUL-2021 01:07, Premature supraventricular complexes are no longer Present Referred By: Jose Vitale Electronically Signed By:FITZ CASTRO MD
[2022-02-21 11:48] LABS: Appearance Urine HAZY; Glucose Urine UA NEG (NEG); Leukocyte Esterase Urine NEG (NEG); Nitrite Urine NEG (NEG); PH 6.5 (5.0-8.0); Urine Blood NEG (NEG); Urine Ketones NEG (NEG); Urine Protein NEG (NEG-TRACE)
[2022-02-21 11:50] LABS: Color Urine YELLOW
[2022-02-21 12:09] LABS: UPreg QC Valid YES; Urine Pregnancy NEGATIVE (NEGATIVE)
[2022-02-21] MEDS: 0.9 % Sodium Chloride 1,000 ML 999 ML IV (12:21)
[2022-02-21 12:22] LABS: MANUAL DIFF FLAG NO
[2022-02-21] MEDS: HYDROmorphone HCl 1 MG/ML SYRINGE 0.5 MG IVPUSH (12:22)
[2022-02-21] MEDS: ondansetron HCL 4 MG/2 ML VIAL IVPUSH ×2 (12:22→14:10)
[2022-02-21 12:29] LABS: Basophils Percent Auto 0.4 % (0-2); Eosinophils Absolute Auto 0.1 X10*3/uL (0.0-0.4); Eosinophils Percent Auto 0.9 % (0-4); Hematocrit 44.3 % (37.0-47.0); Hemoglobin 14.7 g/dl (12.0-16.0); Imm Gran Abs Auto 0.03 X10*3/uL (0.00-0.03); Imm Gran Pct Auto 0.4 % (0.0-0.4); Lymphocytes Absolute Auto 1.3 X10*3/uL (1.2-4.9); Lymphocytes Percent Auto 18.7 % (20-40); Mean Corpuscular HGB Conc 33.2 g/dl (31.0-35.0); Mean Corpuscular Hemoglobin 30.6 pg (27.0-33.0); Mean Corpuscular Volume 92.3 fL (80.0-98.0); Mean Platelet Volume 10.1 fL (9.4-12.3); Monocytes Absolute Auto 0.7 X10*3/uL (0.1-1.2); Monocytes Percent Auto 9.9 % (2-11); Neutrophils Absolute Auto 4.7 x10*3/uL (2.0-8.3); Neutrophils Percent Auto 69.7 % (45-73); Platelet Count 268 X10*3/uL (160-400); Red Cell Distribution Width 13.7 % (11.0-16.0); White Blood Count 6.7 X10*3/uL (4.8-10.8)
[2022-02-21 12:41] LABS: Alanine Aminotransferase 15 U/L (0-31); Alkaline Phosphatase 87 U/L (39-117); Anion Gap 12 (12-20); Aspartate Amino Transferase 16 U/L (5-31); Bilirubin Direct < 0.2 mg/dL (0.0-0.5); Bilirubin Total 0.4 mg/dL (0.0-1.0); Blood Urea Nitrogen 10 mg/dL (9-16); Calcium 9.8 mg/dL (8.4-10.2); Carbon Dioxide 23 mmol/L (22-29); Chloride 106 mmol/L (96-108); Estimated Glomerular Filt Rate > 60; Glucose Random 77 mg/dL (60-115); Lipase 23 U/L (8-78); Potassium 3.9 mmol/L (3.3-5.1); Sodium 137 mmol/L (135-145)
[2022-02-21 13:16] LABS: Erythrocyte Sedimentation Rate 14 MM/HR (0-20)
[2022-02-21] MEDS: iohexoL 350 MG/ML 100 ML INFUS..BTL IV (13:30)
[2022-02-21 13:52] VITALS: BP 116/62; PULSE 70; RESP 18; TEMP 36.3; O2SAT 100
[2022-02-21 14:10] VITALS: RESP 18
[2022-02-21] MEDS: Famotidine/PF 20 MG/2 ML VIAL IVPUSH (14:10)
[2022-02-21] MEDS: HYDROmorphone HCl 0.5 MG/0.5 ML SYRINGE IVPUSH ×2 (14:10→15:31)
[2022-02-21] MEDS: Hydrocortisone Sod Succ/PF 100 MG VIAL IVPUSH (15:03)
[2022-02-21 15:38] VITALS: BP 133/71; PULSE 76; RESP 17; O2SAT 99
--- NOTE | 2022-02-21 16:35 | ED_ITS ---
HPI - General Adult General Chief complaint: Nausea/Vomiting/Diarrhea Stated complaint: flu like symptoms Time Seen by Provider: 02/21/22 11:18 History of Present Illness HPI narrative: Patient complains of nausea with 1 episode of vomiting and increased abdominal pain associated with several days of intermittent diarrhea and constipation, she has had some episodes of blood in the stool These symptoms are consistent with prior episodes of Crohn's flare she does have Crohn's, she also has felt some brief palpitations associated with anxiety, no chest pain no shortness of breath no exertional symptoms no diaphoresis Related Data Home Medications Medication Instructions Recorded Confirmed levonorgestrel 20 mcg/24 hours (7 1 device INTRAUTERINE ONCE 10/04/20 01/18/22 yrs) 52 mg intrauterine device (Mirena) omeprazole 20 mg capsule,delayed 20 mg PO DAILY 12/05/20 01/18/22 release mesalamine 500 mg 1,000 mg PO TID 04/25/21 01/18/22 capsule,controlled release (Pentasa) sumatriptan succinate 100 mg tablet 0.5 tab PO DAILY MRX1 PRN 04/25/21 01/18/22 cholestyramine (with sugar) 4 gram PO 10/09/21 01/18/22 oral powder dicyclomine 10 mg capsule See Rx Instructions PO QID PRN 10/09/21 01/18/22 adalimumab 40 mg/0.8 mL 40 mg SUBCUT Q2W ea 11/06/21 01/18/22 subcutaneous pen kit (Humira Pen) [id number] 250 1 tab PO Q4-6H PRN 02/05/22 mg-250 mg-65 mg tablet (Excedrin Extra Strength) Previous Rx's Medication Instructions Recorded acetaminophen 325 mg tablet 650 mg PO Q8H PRN 30 Days tab 04/29/21 escitalopram oxalate 10 mg tablet 10 mg PO DAILY 30 Days #30 tab 12/06/21 cyclobenzaprine 10 mg tablet 10 mg PO TID PRN #14 tab 12/11/21 ibuprofen 600 mg tablet 600 mg PO Q8H PRN #14 tab 12/11/21 clonidine HCl 0.1 mg tablet 0.1 mg PO TID PRN 30 Days #90 tab 12/27/21 suvorexant 5 mg tablet (Belsomra) 5 mg PO BEDTIME #30 tab 01/10/22 tramadol 50 mg tablet 50 mg PO BID PRN 30 Days #60 tab 01/30/22 ondansetron 4 mg disintegrating 4 mg PO Q8H PRN #20 tab 01/31/22 tablet budesonide 3 mg 9 mg PO DAILY #90 ea 02/05/22 capsule,delayed,extended release lorazepam 1 mg tablet (Ativan) 1 mg PO BID PRN #10 tab 02/21/22 ondansetron 4 mg disintegrating 4 mg PO Q6H PRN #14 tab 02/21/22 tablet oxycodone 5 mg tablet 5 mg PO Q6H PRN #20 tab 02/21/22 Allergies Allergy/AdvReac Type Severity Reaction Status Date / Time meperidine [From Demerol] Allergy Severe SWELLING,RASH,THROAT Verified 02/05/22 10:06 CLOSES latex [LATEX] Allergy Mild RASH Verified 02/05/22 10:06 codeine [Codeine] AdvReac Intermediate NAUSEA/VOMITING, Verified 02/05/22 10:06 GI upset/vomiting Fish Containing Products AdvReac Unknown NAUSEA/VOMI Verified 02/05/22 10:06 [Fish Product Derivatives] TING trazodone AdvReac Intermediate worsening Uncoded 02/05/22 10:06 anxiety symptoms Review of Systems Review of Systems: Positive for nausea vomiting abdominal pain diarrhea and palpitations Negatives are no fever no chills no fainting no feeling faint no headache no stiff neck no chest pain no shortness of breath no exertional symptoms no diaphoresis, no blood in vomitus, no coffee-ground vomitus, no leg swelling no calf pain or swelling no rash no weakness or numbness Yes all other systems are reviewed and are negative PMFSH Past Medical History Source: nursing notes reviewed Medical History (Updated 02/21/22 @ 16:36 by MITZY Garrett) Anxiety Crohn's colitis Crohn's disease Crohns disease of small intestine Depression 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 History of renal cell cancer (~2014) Insomnia Intractable nausea and vomiting Lumbar degenerative disc disease Migraine Obesity (BMI 30-39.9) Osteoarthritis of hips, bilateral Surgical History (Updated 02/05/22 @ 10:08 by MARLON Watson) History of arthroplasty (~01/2012) History of cryosurgery (~04/20/15) History of esophagogastroduodenoscopy (EGD) History of intestinal surgery History of removal of calculus of renal pelvis through percutaneous nephrostomy (~10/2015) Hx of colonoscopy Family History Family History Father Crohn disease Migraine Mother HTN (hypertension) Vertigo Cervical cancer Maternal Grandmother HTN (hypertension) Hyperlipidemia Diabetes mellitus Paternal Grandfather Diabetes mellitus Other Mental health problem Social History Social History Household Members: Family Housing: House Do you presently have visiting nurse or other home services: No Alcohol intake: current Alcohol intake frequency: holidays/special occasions only Patient Tobacco Use Status: Former Tobacco user Tobacco use type: Cigarette e-Cigarette/Vaping Use: Former Use Second Hand Smoke Exposure: No Advance Directives: No Advance Directives Information Provided: No service: No Current occupational status: unemployed Gender identity: Female Physical Exam ED Vital Signs: Vital Signs - 24 hr 02/21/22 10:13 02/21/22 13:52 02/21/22 14:10 Temperature 98.3 F 97.4 F Pulse Rate 90 70 Respiratory Rate 18 18 18 Blood Pressure 137/98 H 116/62 Pulse Oximetry 99 100 02/21/22 15:38 Temperature Pulse Rate 76 Respiratory Rate 17 Blood Pressure 133/71 Pulse Oximetry 99 BMI result Body Mass Index 32.9 General appearance is uncomfortable The pupils are anicteric with no pallor The sinuses are nontender The pharynx is clear with moist mucous membranes The neck is supple The chest is clear to auscultation bilateral Heart no murmur The abdomen has mild diffuse tenderness without rebound or guarding there is no focal tenderness Extremities full range of motion x4, no edema no calf swelling or tenderness The skin no rash Neuro no focal motor sensory deficits, gait and balance are normal and interaction and expression and comprehension are normal Course Course Course Narrative: Labs were reviewed with no acute finding, ESR CBC and CRP were all normal EKG was reviewed and it was a normal sinus rhythm without acute change, no ST changes, intervals were normal, QT was normal CT scan was done and did show interval increase in mural thickening in the terminal ileum suggestive of acute process consistent with Crohn's disease I was able to discuss the case with account general manager Dr. Alexis was the patient's account general manager He advised initiating steroids and if patient is tolerating p.o. and pain is controlled that she should be discharged to follow with him in his office Patient responded well to antiemetic and analgesic and was comfortable tolerating p.o. on discharge to follow with her doctor Medical Decision Making Lab Data Lab results reviewed: Yes I reviewed the patient's lab results. Result diagrams: 02/21/22 12:18 02/21/22 12:18 Labs: Lab Results 02/21/22 02/21/22 02/21/22 Range/Units 10:17 10:17 11:40 WBC (4.8-10.8) X10*3/uL RBC (4.20-5.50) X10*6/uL Hgb (12.0-16.0) g/dl Hct (37.0-47.0) % MCV (80.0-98.0) fL MCH (27.0-33.0) pg MCHC (31.0-35.0) g/dl RDW (11.0-16.0) % Plt Count (160-400) X10*3/uL MPV (9.4-12.3) fL Immature Gran % (Auto) (0.0-0.4) % Neut % (Auto) (45-73) % Lymph % (Auto) (20-40) % [place] % (Auto) (2-11) % Eos % (Auto) (0-4) % Baso % (Auto) (0-2) % Lymph # (Auto) (1.2-4.9) X10*3/uL [place] # (Auto) (0.1-1.2) X10*3/uL Eos # (Auto) (0.0-0.4) X10*3/uL Baso # (Auto) (0.0-0.2) X10*3/uL Abs Immat Gran (auto) (0.00-0.03) X10*3/uL Absolute Neuts (auto) (2.0-8.3) x10*3/uL Absolute Nucleated RBC (0.0-0.012) X10*3/uL Nucleated RBC % (auto) (0.0-0.2) /100WBC ESR (0-20) MM/HR Sodium (135-145) mmol/L Potassium (3.3-5.1) mmol/L Chloride (96-108) mmol/L Carbon Dioxide (22-29) mmol/L Anion Gap (12-20) BUN (9-16) mg/dL Creatinine (0.5-1.4) mg/dL Estim Creat Clear Calc Estimated GFR Random Glucose (60-115) mg/dL Calcium (8.4-10.2) mg/dL Total Bilirubin (0.0-1.0) mg/dL Direct Bilirubin (0.0-0.5) mg/dL AST (5-31) U/L ALT (0-31) U/L Alkaline Phosphatase (39-117) U/L C-Reactive Protein (< or = 0.50) mg/dL Total Protein (6.5-8.0) g/dL Albumin (3.5-5.0) g/dL Lipase (8-78) U/L Urine Color YELLOW Urine Appearance HAZY Urine pH 6.5 (5.0-8.0) Ur Specific [place] 1.020 (1.005-1.025) Urine Protein NEG (NEG-TRACE) MG/DL Urine Glucose (UA) NEG (NEG) MG/DL Urine Ketones NEG (NEG) MG/DL Urine Blood NEG (NEG) Urine Nitrite NEG (NEG) Ur Leukocyte Esterase NEG (NEG) Urine Test (NEGATIVE) COVID-19 ([facility]OR[facility]ZO) Negative (Negative) COVID-19 Clin Com See Note Influenza Type A ([facility]QUEZ) Negative (Negative) Influenza Type B ([facility]Z) Negative (Negative) Influenza A & B Note See Note 02/21/22 02/21/22 02/21/22 Range/Units 11:40 12:18 12:18 WBC 6.7 (4.8-10.8) X10*3/uL RBC 4.80 (4.20-5.50) X10*6/uL Hgb 14.7 (12.0-16.0) g/dl Hct 44.3 (37.0-47.0) % MCV 92.3 (80.0-98.0) fL MCH 30.6 (27.0-33.0) pg MCHC 33.2 (31.0-35.0) g/dl RDW 13.7 (11.0-16.0) % Plt Count 268 (160-400) X10*3/uL MPV 10.1 (9.4-12.3) fL Immature Gran % (Auto) 0.4 (0.0-0.4) % Neut % (Auto) 69.7 (45-73) % Lymph % (Auto) 18.7 L (20-40) % [place] % (Auto) 9.9 (2-11) % Eos % (Auto) 0.9 (0-4) % Baso % (Auto) 0.4 (0-2) % Lymph # (Auto) 1.3 (1.2-4.9) X10*3/uL [place] # (Auto) 0.7 (0.1-1.2) X10*3/uL Eos # (Auto) 0.1 (0.0-0.4) X10*3/uL Baso # (Auto) 0.0 (0.0-0.2) X10*3/uL Abs Immat Gran (auto) 0.03 (0.00-0.03) X10*3/uL Absolute Neuts (auto) 4.7 (2.0-8.3) x10*3/uL Absolute Nucleated RBC 0.000 (0.0-0.012) X10*3/uL Nucleated RBC % (auto) 0.0 (0.0-0.2) /100WBC ESR (0-20) MM/HR Sodium 137 (135-145) mmol/L Potassium 3.9 (3.3-5.1) mmol/L Chloride 106 (96-108) mmol/L Carbon Dioxide 23 (22-29) mmol/L Anion Gap 12 (12-20) BUN 10 (9-16) mg/dL Creatinine 0.74 (0.5-1.4) mg/dL Estim Creat Clear Calc 94.0 Estimated GFR > 60 Random Glucose 77 (60-115) mg/dL Calcium 9.8 (8.4-10.2) mg/dL Total Bilirubin 0.4 (0.0-1.0) mg/dL Direct Bilirubin < 0.2 (0.0-0.5) mg/dL AST 16 (5-31) U/L ALT 15 (0-31) U/L Alkaline Phosphatase 87 (39-117) U/L C-Reactive Protein 0.40 (< or = 0.50) mg/dL Total Protein 7.0 (6.5-8.0) g/dL Albumin 4.0 (3.5-5.0) g/dL Lipase 23 (8-78) U/L Urine Color Urine Appearance Urine pH (5.0-8.0) Ur Specific [place] (1.005-1.025) Urine Protein (NEG-TRACE) MG/DL Urine Glucose (UA) (NEG) MG/DL Urine Ketones (NEG) MG/DL Urine Blood (NEG) Urine Nitrite (NEG) Ur Leukocyte Esterase (NEG) Urine Test NEGATIVE (NEGATIVE) COVID-19 ([facility]OR[facility]ZO) (Negative) COVID-19 Clin Com Influenza Type A (MARQUEZ) (Negative) Influenza Type B ([facility]) (Negative) Influenza A & B Note 02/21/22 Range/Units 12:18 WBC (4.8-10.8) X10*3/uL RBC (4.20-5.50) X10*6/uL Hgb (12.0-16.0) g/dl Hct (37.0-47.0) % MCV (80.0-98.0) fL MCH (27.0-33.0) pg MCHC (31.0-35.0) g/dl RDW (11.0-16.0) % Plt Count (160-400) X10*3/uL MPV (9.4-12.3) fL Immature Gran % (Auto) (0.0-0.4) % Neut % (Auto) (45-73) % Lymph % (Auto) (20-40) % [place] % (Auto) (2-11) % Eos % (Auto) (0-4) % Baso % (Auto) (0-2) % Lymph # (Auto) (1.2-4.9) X10*3/uL [place] # (Auto) (0.1-1.2) X10*3/uL Eos # (Auto) (0.0-0.4) X10*3/uL Baso # (Auto) (0.0-0.2) X10*3/uL Abs Immat Gran (auto) (0.00-0.03) X10*3/uL Absolute Neuts (auto) (2.0-8.3) x10*3/uL Absolute Nucleated RBC (0.0-0.012) X10*3/uL Nucleated RBC % (auto) (0.0-0.2) /100WBC ESR 14 (0-20) MM/HR Sodium (135-145) mmol/L Potassium (3.3-5.1) mmol/L Chloride (96-108) mmol/L Carbon Dioxide (22-29) mmol/L Anion Gap (12-20) BUN (9-16) mg/dL Creatinine (0.5-1.4) mg/dL Estim Creat Clear Calc Estimated GFR Random Glucose (60-115) mg/dL Calcium (8.4-10.2) mg/dL Total Bilirubin (0.0-1.0) mg/dL Direct Bilirubin (0.0-0.5) mg/dL AST (5-31) U/L ALT (0-31) U/L Alkaline Phosphatase (39-117) U/L C-Reactive Protein (< or = 0.50) mg/dL Total Protein (6.5-8.0) g/dL Albumin (3.5-5.0) g/dL Lipase (8-78) U/L Urine Color Urine Appearance Urine pH (5.0-8.0) Ur Specific [place] (1.005-1.025) Urine Protein (NEG-TRACE) MG/DL Urine Glucose (UA) (NEG) MG/DL Urine Ketones (NEG) MG/DL Urine Blood (NEG) Urine Nitrite (NEG) Ur Leukocyte Esterase (NEG) Urine Test (NEGATIVE) COVID-19 ([facility]ZO) (Negative) COVID-19 Clin Com Influenza Type A (MARQUEZ) (Negative) Influenza Type B ([facility]QUE[facility]) (Negative) Influenza A & B Note Discharge Plan Discharge Clinical Impression: Crohn's disease Patient Disposition: Home, Self-Care Additional Instructions: Your labs were all normal, but the CT scan did show that you could be developing a Crohn's flare The case was discussed with Dr. Alexis her account general manager He is advised to start steroids and discharged to and he will call you later to help manage care, he will call in a prescription for prednisone to your pharmacy For pain control I am going to write oxycodone in for nausea viral right Zofran and Ativan if needed for any anxiety Drink plenty of fluids and return to the ER any time any worse condition or any concerns Prescriptions: New ondansetron 4 mg tablet,disintegrating 4 mg PO Q6H PRN (Reason: nausea and vomiting) Qty: 14 0RF lorazepam [Ativan] 1 mg tablet 1 mg PO BID PRN (Reason: anxiety) Qty: 10 0RF oxycodone 5 mg tablet 5 mg PO Q6H PRN (Reason: pain) Qty: 20 0RF Rx Instructions: Narcotic, no driving for 6 hours after taking No Action escitalopram oxalate 10 mg tablet 10 mg PO DAILY 30 Days Qty: 30 2RF clonidine HCl 0.1 mg tablet 0.1 mg PO TID PRN (Reason: anxiety) 30 Days Qty: 90 2RF Belsomra 5 mg tablet 5 mg PO BEDTIME Qty: 30 2RF tramadol 50 mg tablet 50 mg PO BID PRN (Reason: pain) 30 Days Qty: 60 0RF sumatriptan succinate 100 mg tablet 0.5 tab PO DAILY MRX1 PRN (Reason: Migraine Headache) 0RF Pentasa 500 mg Capsule, Extended Release 1,000 mg PO TID 0RF acetaminophen 325 mg Tablet 650 mg PO Q8H PRN (Reason: Pain, Mild (Pain Scale 1-3)) 30 Days 0RF cyclobenzaprine 10 mg tablet 10 mg PO TID PRN (Reason: muscle spasm) Qty: 14 0RF ibuprofen 600 mg tablet 600 mg PO Q8H PRN (Reason: pain) Qty: 14 0RF ondansetron 4 mg tablet,disintegrating 4 mg PO Q8H PRN (Reason: nausea and vomiting) Qty: 20 0RF Mirena 20 mcg/24 hours (6 yrs) 52 mg intrauterine device 1 device intrauterine ONCE 0RF cholestyramine (with sugar) 4 gram powder PO 0RF Humira Pen 40 mg/0.8 mL pen injector kit 40 mg subcut Q2W 0RF omeprazole 20 mg capsule,delayed release(DR/EC) 20 mg PO DAILY 0RF dicyclomine 10 mg capsule See Rx Instructions PO QID PRN0RF Rx Instructions: Take 1 to 2 tablets PO 4 times a day PRN; Excedrin Extra Strength 250-250-65 mg tablet 1 tab PO Q4-6H PRN0RF budesonide 3 mg capsule,delayed,extend.release 9 mg PO DAILY Qty: 90 1RF
== END 2022-02-21 17:28 | disposition home or self-care (01) ==
PROVIDERS: Physician Assistant Medical; Emergency Provider Emergency Medicine Emergency Medical Services; PCP Internal Medicine
DX: K50.90 Crohn's disease, unspecified, without complications (principal); R11.2 Nausea with vomiting, unspecified; R10.9 Unspecified abdominal pain; R00.2 Palpitations; F41.1 Generalized anxiety disorder; F43.0 Acute stress reaction; Z20.822 Contact with and (suspected) exposure to COVID-19; Z87.891 Personal history of nicotine dependence; Z79.899 Other long term (current) drug therapy
CPT/HCPCS: 36415; 74177; 80048; 80076; 81003; 81025; 83690; 85025; 85652; 86140; 87502; 87635; 93005; 96361; 96374; 96375; 96376; 99284; J1170; J2405; Q9967

== ENCOUNTER 2022-03-02 04:06 | Emergency (ER) | payer OTHER, SELFPAY ==
--- NOTE | ~2022-03-02 | XR_ITS ---
EXAMINATION: XR ABDOMEN KUB CLINICAL INDICATION: Right lower quadrant pain. History of Crohn's disease. COMPARISON: CT dated 02/21/2022 TECHNIQUE: 2 views of the abdomen. FINDINGS: The bowel gas pattern is normal with no evidence of ileus or obstruction. No unusual soft tissue calcifications are noted. IUD present within the pelvis. The bones are unremarkable. XR/XR KUB IMPRESSION: Unremarkable examination.
[2022-03-02 04:15] VITALS: BP 151/100; PULSE 99; RESP 20; TEMP 36.7; O2SAT 98; BMI 32.9
[2022-03-02 05:11] LABS: MANUAL DIFF FLAG NO
[2022-03-02 05:12] LABS: Basophils Percent Auto 0.2 % (0-2); Eosinophils Absolute Auto 0.1 X10*3/uL (0.0-0.4); Eosinophils Percent Auto 0.9 % (0-4); Hematocrit 43.4 % (37.0-47.0); Hemoglobin 14.1 g/dl (12.0-16.0); Imm Gran Abs Auto 0.08 X10*3/uL (0.00-0.03); Imm Gran Pct Auto 0.8 % (0.0-0.4); Lymphocytes Absolute Auto 2.3 X10*3/uL (1.2-4.9); Lymphocytes Percent Auto 22.9 % (20-40); Mean Corpuscular HGB Conc 32.5 g/dl (31.0-35.0); Mean Corpuscular Hemoglobin 30.2 pg (27.0-33.0); Mean Corpuscular Volume 92.9 fL (80.0-98.0); Mean Platelet Volume 9.6 fL (9.4-12.3); Monocytes Percent Auto 9.9 % (2-11); Neutrophils Absolute Auto 6.5 x10*3/uL (2.0-8.3); Neutrophils Percent Auto 65.3 % (45-73); Platelet Count 318 X10*3/uL (160-400); Red Blood Count 4.67 X10*6/uL (4.20-5.50); White Blood Count 9.9 X10*3/uL (4.8-10.8)
[2022-03-02] MEDS: Ketorolac Tromethamine 30 MG/ML VIAL 15 MG IVPUSH (05:14)
[2022-03-02] MEDS: ondansetron HCL 4 MG/2 ML VIAL IVPUSH (05:14)
[2022-03-02 05:30] LABS: Alanine Aminotransferase 13 U/L (0-31); Albumin Level 3.6 g/dL (3.5-5.0); Alkaline Phosphatase 71 U/L (39-117); Anion Gap 14 (12-20); Aspartate Amino Transferase 17 U/L (5-31); Bilirubin Total < 0.2 mg/dL (0.0-1.0); Blood Urea Nitrogen 22 mg/dL (9-16); Calcium 9.7 mg/dL (8.4-10.2); Carbon Dioxide 27 mmol/L (22-29); Chloride 106 mmol/L (96-108); Creatinine Clr Calc Pharmacy 91.5; Estimated Glomerular Filt Rate > 60; Glucose Random 95 mg/dL (60-115); Potassium 4.6 mmol/L (3.3-5.1); Sodium 142 mmol/L (135-145); Total Protein 6.8 g/dL (6.5-8.0)
[2022-03-02 05:31] LABS: Strep A Nucleic Acid Negative (Negative)
[2022-03-02 05:37] LABS: COVID-19 Test Negative (Negative); IDNOW Serial# 16C4AD1C; Influenza A Negative (Negative); Influenza B2 Negative (Negative)
[2022-03-02 06:06] LABS: Appearance Urine HAZY; Color Urine YELLOW; Glucose Urine UA NEG (NEG); Leukocyte Esterase Urine NEG (NEG); Nitrite Urine NEG (NEG); Specific Gravity - Urine >= 1.030 (1.005-1.025); UACC Culture Trigger NO; Urine Blood TRACE (NEG); Urine Ketones NEG (NEG); Urine Protein NEG (NEG-TRACE)
[2022-03-02 06:07] LABS: UPreg QC Valid YES; Urine Pregnancy NEGATIVE (NEGATIVE)
[2022-03-02 06:11] LABS: Bacteria Urine TRACE /LPF; Mucus Urine 2+ /LPF; RBC Urine 0-2 /HPF (0); Squamous Epithelial Cell Urine 2+ /LPF; WBC Urine 0-2 /HPF (0-4)
[2022-03-02 06:18] VITALS: BP 130/73; PULSE 76; RESP 16; TEMP 36.8; O2SAT 99
--- NOTE | 2022-03-02 06:27 | ED.ABDPAIN ---
HPI - Abdominal Pain General Chief Complaint: Abdominal Pain Stated Complaint: crohn's disease Time Seen by Provider: 03/02/22 04:50 Source: patient Mode of arrival: ambulatory History of Present Illness HPI narrative: 46-year-old female with history of Crohn's currently on steroids who was seen here last week for abdominal pain and was discharged on prednisone. Patient states that she is still taking the prednisone at the instruction of her public health analyst. However, she noted she began having abdominal discomfort with nausea and vomiting as well as diarrhea for approximately 1 hour. Patient states she continues to pass flatus and does not feel like she is obstructive. She denies any urinary pain/burning/frequency. Patient states that GI is plan is to switch her from Humira to Entyvio. Patient otherwise denies any fever, chills, shortness of breath/chest pain/palpitations. Related Data Home Medications Medication Instructions Recorded Confirmed levonorgestrel 20 mcg/24 hours (7 1 device INTRAUTERINE ONCE 10/04/20 01/18/22 yrs) 52 mg intrauterine device (Mirena) omeprazole 20 mg capsule,delayed 20 mg PO DAILY 12/05/20 01/18/22 release mesalamine 500 mg 1,000 mg PO TID 04/25/21 01/18/22 capsule,controlled release (Pentasa) sumatriptan succinate 100 mg tablet 0.5 tab PO DAILY MRX1 PRN 04/25/21 01/18/22 cholestyramine (with sugar) 4 gram PO 10/09/21 01/18/22 oral powder dicyclomine 10 mg capsule See Rx Instructions PO QID PRN 10/09/21 01/18/22 adalimumab 40 mg/0.8 mL 40 mg SUBCUT Q2W ea 11/06/21 01/18/22 subcutaneous pen kit (Humira Pen) [id number] 250 1 tab PO Q4-6H PRN 02/05/22 mg-250 mg-65 mg tablet (Excedrin Extra Strength) Previous Rx's Medication Instructions Recorded acetaminophen 325 mg tablet 650 mg PO Q8H PRN 30 Days tab 04/29/21 escitalopram oxalate 10 mg tablet 10 mg PO DAILY 30 Days #30 tab 12/06/21 cyclobenzaprine 10 mg tablet 10 mg PO TID PRN #14 tab 12/11/21 ibuprofen 600 mg tablet 600 mg PO Q8H PRN #14 tab 12/11/21 clonidine HCl 0.1 mg tablet 0.1 mg PO TID PRN 30 Days #90 tab 12/27/21 suvorexant 5 mg tablet (Belsomra) 5 mg PO BEDTIME #30 tab 01/10/22 tramadol 50 mg tablet 50 mg PO BID PRN 30 Days #60 tab 01/30/22 ondansetron 4 mg disintegrating 4 mg PO Q8H PRN #20 tab 01/31/22 tablet budesonide 3 mg 9 mg PO DAILY #90 ea 02/05/22 capsule,delayed,extended release lorazepam 1 mg tablet (Ativan) 1 mg PO BID PRN #10 tab 02/21/22 ondansetron 4 mg disintegrating 4 mg PO Q6H PRN #14 tab 02/21/22 tablet oxycodone 5 mg tablet 5 mg PO Q6H PRN #20 tab 02/21/22 ascorbic acid (vitamin C) 500 mg 1,000 mg PO DAILY 30 Days #60 cap 02/22/22 capsule cholecalciferol (vitamin D3) 25 25 mcg PO DAILY #60 cap 02/22/22 mcg (1,000 unit) capsule Allergies Allergy/AdvReac Type Severity Reaction Status Date / Time meperidine [From Demerol] Allergy Severe SWELLING,RASH,THROAT Verified 03/02/22 04:21 CLOSES latex [LATEX] Allergy Mild RASH Verified 03/02/22 04:21 codeine [Codeine] AdvReac Intermediate NAUSEA/VOMITING, Verified 03/02/22 04:21 GI upset/vomiting Fish Containing Products AdvReac Unknown NAUSEA/VOMI Verified 03/02/22 04:21 [Fish Product Derivatives] TING trazodone AdvReac Intermediate worsening Uncoded 03/02/22 04:21 anxiety symptoms Review of Systems Review of Systems Pertinent positives and negatives as stated in HPI 10 point review of systems is otherwise negative. 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 History of renal cell cancer (~2014) Insomnia Intractable nausea and vomiting Lumbar degenerative disc disease Migraine Obesity (BMI 30-39.9) Osteoarthritis of hips, bilateral Surgical History History of arthroplasty (~01/2012) History of cryosurgery (~04/20/15) History of esophagogastroduodenoscopy (EGD) History of intestinal surgery History of removal of calculus of renal pelvis through percutaneous nephrostomy (~10/2015) Hx of colonoscopy Family History Family History Father Crohn disease Migraine Mother HTN (hypertension) Vertigo Cervical cancer Maternal Grandmother HTN (hypertension) Hyperlipidemia Diabetes mellitus Paternal Grandfather Diabetes mellitus Other Mental health problem Social History Social History Household Members: Family Housing: House Do you presently have visiting nurse or other home services: No Alcohol intake: never Patient Tobacco Use Status: Former Tobacco user Tobacco use type: Cigarette e-Cigarette/Vaping Use: Former Use Second Hand Smoke Exposure: No Use of substances other than those prescribed or required for medical reasons: No Advance Directives: No Advance Directives Information Provided: Yes service: No Current occupational status: unemployed Gender identity: Female Physical Exam ED Vital Signs: Vital Signs - 24 hr 03/02/22 04:15 03/02/22 06:18 03/02/22 07:13 Temperature 98.1 F 98.3 F 97.8 F Pulse Rate 99 76 66 Respiratory Rate 20 16 16 Blood Pressure 151/100 H 130/73 117/69 Pulse Oximetry 98 99 100 BMI result Body Mass Index 32.9 VITAL SIGNS: Reviewed. GENERAL: Well developed, well nourished, in no acute distress. HEAD: Normocephalic/atraumatic EYES: PERRLA, EOMI EARS: Ext canals without abnormality OROPHARYNX: no oral lesions noted, posterior pharynx clear LUNGS: Normal breath sounds. No adventitious sounds or accessory muscle use. SpO2<98> CARDIOVASCULAR: Regular rate and rhythm without noted murmurs ABDOMEN: Soft, diffuse tenderness without rebound, non-distended with bowel sounds. SKIN: Inspection of the skin reveals no rashes NEUROLOGIC: Alert and oriented x 4. Strength and sensation to light touch were grossly intact x 4. Course Course Course Narrative: This is a 46-year-old female with history and clinical presentation most consistent with steroid induced gastritis and/or ulcers and no evidence to suggest acute SBO or infectious etiology. Patient has had a CT scan every month since the beginning of the year without any changes in findings. Review of all investigations otherwise negative for acute findings to suggest infection and on review of KUB no evidence to suggest constipation, SBO. Patient remains in pain and she was provided with a GI cocktail, IV fluids, as well as pain medication. As there are no acute changes will discuss the case with Gastroenterology to see how they would like to proceed. I communicated all recommendations by GI to the patient and she acknowledges understanding. Reevaluation(s) Reevaluation #1: I discussed the case with Dr. Suarez who recommends increasing prednisone back up to 50 mg and restarting the taper. In addition, patient should begin taking the omeprazole twice daily and contact the office this morning. Time: 07:14 MDM - Abdominal Pain Lab Data Result diagrams: 03/02/22 05:03 03/02/22 05:04 Labs: Lab Results 03/02/22 03/02/22 03/02/22 Range/Units 05:03 05:04 05:08 WBC 9.9 (4.8-10.8) X10*3/uL RBC 4.67 (4.20-5.50) X10*6/uL Hgb 14.1 (12.0-16.0) g/dl Hct 43.4 (37.0-47.0) % MCV 92.9 (80.0-98.0) fL MCH 30.2 (27.0-33.0) pg MCHC 32.5 (31.0-35.0) g/dl RDW 14.0 (11.0-16.0) % Plt Count 318 (160-400) X10*3/uL MPV 9.6 (9.4-12.3) fL Immature Gran % (Auto) 0.8 H (0.0-0.4) % Neut % (Auto) 65.3 (45-73) % Lymph % (Auto) 22.9 (20-40) % [place] % (Auto) 9.9 (2-11) % Eos % (Auto) 0.9 (0-4) % Baso % (Auto) 0.2 (0-2) % Lymph # (Auto) 2.3 (1.2-4.9) X10*3/uL [place] # (Auto) 1.0 (0.1-1.2) X10*3/uL Eos # (Auto) 0.1 (0.0-0.4) X10*3/uL Baso # (Auto) 0.0 (0.0-0.2) X10*3/uL Abs Immat Gran (auto) 0.08 H (0.00-0.03) X10*3/uL Absolute Neuts (auto) 6.5 (2.0-8.3) x10*3/uL Absolute Nucleated RBC 0.000 (0.0-0.012) X10*3/uL Nucleated RBC % (auto) 0.0 (0.0-0.2) /100WBC Sodium 142 (135-145) mmol/L Potassium 4.6 (3.3-5.1) mmol/L Chloride 106 (96-108) mmol/L Carbon Dioxide 27 (22-29) mmol/L Anion Gap 14 (12-20) BUN 22 H D (9-16) mg/dL Creatinine 0.76 (0.5-1.4) mg/dL Estim Creat Clear Calc 91.5 Estimated GFR > 60 Random Glucose 95 (60-115) mg/dL Calcium 9.7 (8.4-10.2) mg/dL Total Bilirubin < 0.2 (0.0-1.0) mg/dL AST 17 (5-31) U/L ALT 13 (0-31) U/L Alkaline Phosphatase 71 (39-117) U/L C-Reactive Protein 0.18 (< or = 0.50) mg/dL Total Protein 6.8 (6.5-8.0) g/dL Albumin 3.6 (3.5-5.0) g/dL Urine Color Urine Appearance Urine pH (5.0-8.0) Ur Specific [place] (1.005-1.025) Urine Protein (NEG-TRACE) MG/DL Urine Glucose (UA) (NEG) MG/DL Urine Ketones (NEG) MG/DL Urine Blood (NEG) Urine Nitrite (NEG) Ur Leukocyte Esterase (NEG) Urine RBC (0) /HPF Urine WBC (0-4) /HPF Ur Squamous Epith Cells /LPF Urine Bacteria /LPF Urine Mucus /LPF Urine Test (NEGATIVE) COVID-19 ([facility]) (Negative) COVID-19 Clin Com Influenza Type A ([facility]) Negative (Negative) Influenza Type B ([facility]) Negative (Negative) Influenza A & B Note See Note S. pyogenes GrpA [facility] (Negative) 03/02/22 03/02/22 03/02/22 Range/Units 05:08 05:08 05:59 WBC (4.8-10.8) X10*3/uL RBC (4.20-5.50) X10*6/uL Hgb (12.0-16.0) g/dl Hct (37.0-47.0) % MCV (80.0-98.0) fL MCH (27.0-33.0) pg MCHC (31.0-35.0) g/dl RDW (11.0-16.0) % Plt Count (160-400) X10*3/uL MPV (9.4-12.3) fL Immature Gran % (Auto) (0.0-0.4) % Neut % (Auto) (45-73) % Lymph % (Auto) (20-40) % [place] % (Auto) (2-11) % Eos % (Auto) (0-4) % Baso % (Auto) (0-2) % Lymph # (Auto) (1.2-4.9) X10*3/uL [place] # (Auto) (0.1-1.2) X10*3/uL Eos # (Auto) (0.0-0.4) X10*3/uL Baso # (Auto) (0.0-0.2) X10*3/uL Abs Immat Gran (auto) (0.00-0.03) X10*3/uL Absolute Neuts (auto) (2.0-8.3) x10*3/uL Absolute Nucleated RBC (0.0-0.012) X10*3/uL Nucleated RBC % (auto) (0.0-0.2) /100WBC Sodium (135-145) mmol/L Potassium (3.3-5.1) mmol/L Chloride (96-108) mmol/L Carbon Dioxide (22-29) mmol/L Anion Gap (12-20) BUN (9-16) mg/dL Creatinine (0.5-1.4) mg/dL Estim Creat Clear Calc Estimated GFR Random Glucose (60-115) mg/dL Calcium (8.4-10.2) mg/dL Total Bilirubin (0.0-1.0) mg/dL AST (5-31) U/L ALT (0-31) U/L Alkaline Phosphatase (39-117) U/L C-Reactive Protein (< or = 0.50) mg/dL Total Protein (6.5-8.0) g/dL Albumin (3.5-5.0) g/dL Urine Color YELLOW Urine Appearance HAZY Urine pH 6.0 (5.0-8.0) Ur Specific [place] >= 1.030 H (1.005-1.025) Urine Protein NEG (NEG-TRACE) MG/DL Urine Glucose (UA) NEG (NEG) MG/DL Urine Ketones NEG (NEG) MG/DL Urine Blood TRACE (NEG) Urine Nitrite NEG (NEG) Ur Leukocyte Esterase NEG (NEG) Urine RBC 0-2 (0) /HPF Urine WBC 0-2 (0-4) /HPF Ur Squamous Epith Cells 2+ /LPF Urine Bacteria TRACE /LPF Urine Mucus 2+ /LPF Urine Test (NEGATIVE) COVID-19 ([facility]) Negative (Negative) COVID-19 Clin Com See Note Influenza Type A ([facility]) (Negative) Influenza Type B ([facility]) (Negative) Influenza A & B Note S. pyogenes GrpA [facility] Negative (Negative) 03/02/22 Range/Units 05:59 WBC (4.8-10.8) X10*3/uL RBC (4.20-5.50) X10*6/uL Hgb (12.0-16.0) g/dl Hct (37.0-47.0) % MCV (80.0-98.0) fL MCH (27.0-33.0) pg MCHC (31.0-35.0) g/dl RDW (11.0-16.0) % Plt Count (160-400) X10*3/uL MPV (9.4-12.3) fL Immature Gran % (Auto) (0.0-0.4) % Neut % (Auto) (45-73) % Lymph % (Auto) (20-40) % [place] % (Auto) (2-11) % Eos % (Auto) (0-4) % Baso % (Auto) (0-2) % Lymph # (Auto) (1.2-4.9) X10*3/uL [place] # (Auto) (0.1-1.2) X10*3/uL Eos # (Auto) (0.0-0.4) X10*3/uL Baso # (Auto) (0.0-0.2) X10*3/uL Abs Immat Gran (auto) (0.00-0.03) X10*3/uL Absolute Neuts (auto) (2.0-8.3) x10*3/uL Absolute Nucleated RBC (0.0-0.012) X10*3/uL Nucleated RBC % (auto) (0.0-0.2) /100WBC Sodium (135-145) mmol/L Potassium (3.3-5.1) mmol/L Chloride (96-108) mmol/L Carbon Dioxide (22-29) mmol/L Anion Gap (12-20) BUN (9-16) mg/dL Creatinine (0.5-1.4) mg/dL Estim Creat Clear Calc Estimated GFR Random Glucose (60-115) mg/dL Calcium (8.4-10.2) mg/dL Total Bilirubin (0.0-1.0) mg/dL AST (5-31) U/L ALT (0-31) U/L Alkaline Phosphatase (39-117) U/L C-Reactive Protein (< or = 0.50) mg/dL Total Protein (6.5-8.0) g/dL Albumin (3.5-5.0) g/dL Urine Color Urine Appearance Urine pH (5.0-8.0) Ur Specific [place] (1.005-1.025) Urine Protein (NEG-TRACE) MG/DL Urine Glucose (UA) (NEG) MG/DL Urine Ketones (NEG) MG/DL Urine Blood (NEG) Urine Nitrite (NEG) Ur Leukocyte Esterase (NEG) Urine RBC (0) /HPF Urine WBC (0-4) /HPF Ur Squamous Epith Cells /LPF Urine Bacteria /LPF Urine Mucus /LPF Urine Test NEGATIVE (NEGATIVE) COVID-19 ([facility]) (Negative) COVID-19 Clin Com Influenza Type A ([facility]) (Negative) Influenza Type B ([facility]) (Negative) Influenza A & B Note S. pyogenes GrpA [facility] (Negative) Discharge Plan Discharge Clinical Impression: Abdominal pain, Hx of Crohn's disease Patient Disposition: Home, Self-Care Instructions: Crohn Disease (ED) Additional Instructions: 1. Resume all home medications as prescribed. 2. Increase prednisone to 50 mg and you will restart the taper. Begin taking your omeprazole twice a day. 3. Please call the GI offices this morning to further discuss your case. 4. Please follow-up with primary care provider. Return to the ER for worsening symptoms. Prescriptions: No Action escitalopram oxalate 10 mg tablet 10 mg PO DAILY 30 Days Qty: 30 2RF clonidine HCl 0.1 mg tablet 0.1 mg PO TID PRN (Reason: anxiety) 30 Days Qty: 90 2RF Belsomra 5 mg tablet 5 mg PO BEDTIME Qty: 30 2RF tramadol 50 mg tablet 50 mg PO BID PRN (Reason: pain) 30 Days Qty: 60 0RF ascorbic acid (vitamin C) 500 mg capsule 1,000 mg PO DAILY 30 Days Qty: 60 2RF cholecalciferol (vitamin D3) 25 mcg (1,000 unit) capsule 25 mcg PO DAILY Qty: 60 2RF sumatriptan succinate 100 mg tablet 0.5 tab PO DAILY MRX1 PRN (Reason: Migraine Headache) 0RF Pentasa 500 mg Capsule, Extended Release 1,000 mg PO TID 0RF acetaminophen 325 mg Tablet 650 mg PO Q8H PRN (Reason: Pain, Mild (Pain Scale 1-3)) 30 Days 0RF cyclobenzaprine 10 mg tablet 10 mg PO TID PRN (Reason: muscle spasm) Qty: 14 0RF ibuprofen 600 mg tablet 600 mg PO Q8H PRN (Reason: pain) Qty: 14 0RF ondansetron 4 mg tablet,disintegrating 4 mg PO Q8H PRN (Reason: nausea and vomiting) Qty: 20 0RF ondansetron 4 mg tablet,disintegrating 4 mg PO Q6H PRN (Reason: nausea and vomiting) Qty: 14 0RF lorazepam [Ativan] 1 mg tablet 1 mg PO BID PRN (Reason: anxiety) Qty: 10 0RF oxycodone 5 mg tablet 5 mg PO Q6H PRN (Reason: pain) Qty: 20 0RF Rx Instructions: Narcotic, no driving for 6 hours after taking Mirena 20 mcg/24 hours (6 yrs) 52 mg intrauterine device 1 device intrauterine ONCE 0RF cholestyramine (with sugar) 4 gram powder PO 0RF Humira Pen 40 mg/0.8 mL pen injector kit 40 mg subcut Q2W 0RF omeprazole 20 mg capsule,delayed release(DR/EC) 20 mg PO DAILY 0RF dicyclomine 10 mg capsule See Rx Instructions PO QID PRN0RF Rx Instructions: Take 1 to 2 tablets PO 4 times a day PRN; Excedrin Extra Strength 250-250-65 mg tablet 1 tab PO Q4-6H PRN0RF budesonide 3 mg capsule,delayed,extend.release 9 mg PO DAILY Qty: 90 1RF
[2022-03-02] MEDS: HYDROmorphone HCl 0.5 MG/0.5 ML SYRINGE 0.25 MG IVPUSH ×2 (06:31→08:17)
[2022-03-02] MEDS: Magnesium Hydrox/Alum Hydrox 30 ML ORAL.SUSP PO (06:32)
[2022-03-02] MEDS: Lidocaine HCl Viscous 2 % 15 ML SOLUTION 10 ML MUCOUS MEM (06:32)
[2022-03-02 07:13] VITALS: BP 117/69; PULSE 66; RESP 16; TEMP 36.6; O2SAT 100
[2022-03-02 07:33] LABS: C Reactive Protein 0.18 mg/dL (< or = 0.50)
[2022-03-02] MEDS: Dicyclomine HCl 10 MG CAPSULE PO (08:17)
[2022-03-02 08:19] VITALS: BP 117/69; PULSE 66; RESP 19; O2SAT 97
[2022-03-02 08:55] VITALS: BP 117/68; PULSE 77; RESP 19; O2SAT 98
== END 2022-03-02 08:56 | disposition home or self-care (01) ==
PROVIDERS: Emergency Provider Student in an Organized Health Care Education/Training Program
DX: R10.9 Unspecified abdominal pain (principal); Z20.822 Contact with and (suspected) exposure to COVID-19; Z87.891 Personal history of nicotine dependence; Z79.899 Other long term (current) drug therapy
CPT/HCPCS: 36415; 74018; 80053; 81001; 81025; 85025; 86140; 87502; 87635; 87651; 96374; 96375; 96376; 99284; 99285; J1170; J1885; J2405

== ENCOUNTER 2022-03-08 10:58 | Outpatient (REF) | payer OTHER, SELFPAY ==
[2022-03-11 12:36] LABS: TS Negative Control Passed; TS Panel A 0; TS Panel B 0; TS Positive Control Passed; TSpotTB Negative (SeeBelow)
== END 2022-03-08 10:59 | disposition home or self-care (01) ==
LOC: HO.MDS 10:58
PROVIDERS: Visit Provider Internal Medicine
DX: K50.90 Crohn's disease, unspecified, without complications (principal)
CPT/HCPCS: 36415; 86481; 96365; 96375; J2405; J3380

== ENCOUNTER 2022-03-22 10:55 | Outpatient (REF) | payer OTHER, SELFPAY | END 2022-03-22 10:56 | disposition home or self-care (01) | LOC: HO.MDS 10:55 | PROVIDERS: Visit Provider Internal Medicine | DX: K50.90 Crohn's disease, unspecified, without complications (principal) | CPT/HCPCS: 96365; 96375; J1200; J3380 ==

== ENCOUNTER → 2022-04-09 19:30 | Outpatient (REF) | payer OTHER, SELFPAY | LOC: HO.SL 19:30 | PROVIDERS: Visit Provider Nurse Practitioner Family | DX: G47.00 Insomnia, unspecified (principal); R06.83 Snoring | CPT/HCPCS: 95810 ==

== ENCOUNTER → 2022-04-17 09:59 | Outpatient (BNVA) | payer MEDICARE, SELFPAY | PROVIDERS: PCP Internal Medicine; Visit Provider Nurse Practitioner Family | DX: G47.00 Insomnia, unspecified (principal) | CPT/HCPCS: 99212 ==

== ENCOUNTER 2022-04-19 09:03 | Outpatient (REF) | payer MEDICARE, SELFPAY | END 2022-04-19 09:04 | disposition home or self-care (01) | LOC: HO.MDS 09:03 | PROVIDERS: Visit Provider Internal Medicine | DX: K50.90 Crohn's disease, unspecified, without complications (principal) | CPT/HCPCS: 96365; 96375; J1200; J2060; J3380 ==

== ENCOUNTER 2022-06-14 10:03 | Outpatient (REF) | payer MEDICARE, SELFPAY | END 2022-06-14 10:04 | disposition home or self-care (01) | LOC: HO.MDS 10:03 | PROVIDERS: Visit Provider Internal Medicine | DX: K50.90 Crohn's disease, unspecified, without complications (principal) | CPT/HCPCS: 96360; 96365; 96375; J1200; J3380 ==

== ENCOUNTER 2022-06-14 14:58 | Inpatient (IN) | payer OTHER, SELFPAY ==
--- NOTE | ~2022-06-14 | CT_ITS ---
EXAMINATION: CT ABDOMEN AND PELVIS WITHOUT CONTRAST CLINICAL INFORMATION: Worsening abdominal pain. COMPARISON: CT scan the abdomen and pelvis dated 02/21/2022. TECHNIQUE: Multidetector volumetric imaging was performed from the superior aspect of the liver through the pubic symphysis. Sagittal and coronal reformatted images were obtained on the technologist's workstation. Lack of intravenous contrast limits visceral evaluation. This CT examination was performed using dose optimization techniques as appropriate, variously including the following: *Automated exposure control *Adjustment of mA and/or kV according to patient size (this includes techniques or standardized protocols for targeted exams where dose is matched to indication/reason for exam; i.e. extremities or head) *Use of iterative reconstruction technique DLP: 710 mGy-cm FINDINGS: LUNG BASES: The visualized lung bases are unremarkable. LIVER, GALLBLADDER, AND BILIARY TREE: No hepatic abnormality. Diffuse high attenuation within the bladder lumen without surrounding abnormality. No biliary ductal dilatation. PANCREAS: Unremarkable. SPLEEN: Unremarkable. ADRENAL GLANDS: Unremarkable. KIDNEYS AND URETERS: Several punctate nonobstructing intrarenal calculi are seen bilaterally. No hydroureteronephrosis. BLADDER: Unremarkable. GASTROINTESTINAL TRACT: The stomach and proximal small bowel are unremarkable. There has been interval increase in mural thickening in the terminal ileum. Mural thickening appears similar measuring up to 1.2 cm (image 65, series 3). The appendix is unremarkable. The colon is overall decompressed demonstrating mild to moderate diverticulosis, most pronounced distally. The rectum is unremarkable. ABDOMINAL WALL: Small fat-containing umbilical hernia without associated abnormality. LYMPH NODES: No lymphadenopathy. VASCULAR: Unremarkable. PELVIC VISCERA: Unremarkable. OSSEOUS STRUCTURES: Unremarkable. CT/CT abdomen pelvis wo con IMPRESSION: 1. Abnormal mural thickening in the terminal ileum demonstrates overall similar appearance consistent with history of Crohn's disease. No acute associated abnormality. 2. Nonobstructing intrarenal calculi bilaterally. 3. Mild to moderate colonic diverticulosis without evidence for acute diverticulitis.
--- NOTE | ~2022-06-14 | CT_ITS ---
EXAMINATION: CT ABDOMEN AND PELVIS WITH CONTRAST CLINICAL INFORMATION: Crohn's disease with pain COMPARISON: CT abdomen and pelvis 02/21/2022 TECHNIQUE: Multidetector volumetric images were obtained from the superior aspect of the liver through the pubic symphysis following administration 85 mL of Omnipaque 350 intravenous contrast. Sagittal and coronal reformatted images were obtained on the technologist's workstation. Oral contrast: Yes This CT examination was performed using dose optimization techniques as appropriate, variously including the following: *Automated exposure control *Adjustment of mA and/or kV according to patient size (this includes techniques or standardized protocols for targeted exams where dose is matched to indication/reason for exam; i.e. extremities or head) *Use of iterative reconstruction technique DLP: 828 mGy-cm FINDINGS: LUNG BASES: The visualized lung bases are unremarkable. Mild dependent linear atelectasis LIVER, GALLBLADDER, AND BILIARY TREE: The liver is normal in size, shape, and attenuation. No focal hepatic lesion or biliary ductal dilatation is present. The gallbladder is unremarkable with no evidence of radiopaque gallstones, gallbladder wall thickening, or obvious pericholecystic inflammatory changes. PANCREAS: Unremarkable. SPLEEN: Unremarkable. ADRENAL GLANDS: Unremarkable. KIDNEYS AND URETERS: State cortical defect along the right posterior kidney. No hydronephrosis, hydroureter, or calculi seen. No perinephric stranding. BLADDER: Unremarkable. GASTROINTESTINAL TRACT: Colonic diverticulosis. Decreased wall thickening of the terminal ileum compared to CT from 02/21/2022. No new abnormality of the large or small bowel. The appendix is unremarkable. ABDOMINAL WALL: Small fat-containing umbilical hernia. LYMPH NODES: Normal. VASCULAR: Unremarkable. PELVIC VISCERA: IUD in place. 2 cm left adnexal cyst. OSSEOUS STRUCTURES: No acute or suspicious osseous abnormality. Left hip screw. CT/CT abdomen pelvis w con IMPRESSION: Compared to CT from 02/21/2022, decreased wall thickening of the terminal ileum. No acute abnormality in the abdomen or pelvis.
[2022-06-14 15:07] VITALS: BP 125/58; PULSE 93; RESP 18; TEMP 36.4; O2SAT 98; BMI 32.9
[2022-06-14] MEDS: Ondansetron ODT 4 MG TAB.RAPDIS TRANSLINGU (15:20)
[2022-06-14 15:28] LABS: MANUAL DIFF FLAG NO
[2022-06-14 15:30] LABS: Basophils Percent Auto 0.5 % (0-2); Eosinophils Absolute Auto 0.1 X10*3/uL (0.0-0.4); Eosinophils Percent Auto 1.1 % (0-4); Hematocrit 45.8 % (37.0-47.0); Hemoglobin 14.9 g/dl (12.0-16.0); Imm Gran Abs Auto 0.03 X10*3/uL (0.00-0.03); Imm Gran Pct Auto 0.4 % (0.0-0.4); Lymphocytes Absolute Auto 1.4 X10*3/uL (1.2-4.9); Mean Corpuscular HGB Conc 32.5 g/dl (31.0-35.0); Mean Corpuscular Hemoglobin 30.6 pg (27.0-33.0); Mean Platelet Volume 10.2 fL (9.4-12.3); Monocytes Absolute Auto 0.7 X10*3/uL (0.1-1.2); Monocytes Percent Auto 8.5 % (2-11); Neutrophils Percent Auto 72.5 % (45-73); Platelet Count 282 X10*3/uL (160-400); Red Blood Count 4.87 X10*6/uL (4.20-5.50); Red Cell Distribution Width 13.3 % (11.0-16.0); White Blood Count 8.3 X10*3/uL (4.8-10.8)
[2022-06-14 15:48] LABS: Alanine Aminotransferase 10 U/L (0-31); Albumin Level 3.8 g/dL (3.5-5.0); Alkaline Phosphatase 87 U/L (39-117); Anion Gap 11 (12-20); Aspartate Amino Transferase 12 U/L (5-31); Bilirubin Total < 0.2 mg/dL (0.0-1.0); Blood Urea Nitrogen 9 mg/dL (9-16); Calcium 9.3 mg/dL (8.4-10.2); Carbon Dioxide 25 mmol/L (22-29); Chloride 109 mmol/L (96-108); Creatinine Clr Calc Pharmacy 88.1; Estimated Glomerular Filt Rate > 60; Glucose Random 127 mg/dL (60-115); Potassium 4.7 mmol/L (3.3-5.1); Sodium 140 mmol/L (135-145); Total Protein 6.7 g/dL (6.5-8.0)
--- NOTE | 2022-06-14 20:27 | ED.ABDPAIN ---
HPI - Abdominal Pain General Chief Complaint: Abdominal Pain Stated Complaint: diff breathing vomitng abd pain Time Seen by Provider: 06/14/22 15:18 Source: patient Mode of arrival: ambulatory Limitations: no limitations History of Present Illness HPI narrative: Patient with history of Crohn's disease on Pentasa and intermittently on steroids also on Entyvio infusions today patient got the full dose of Entyvio infusion been having full diffuse abdominal pain with diarrhea for last 1 week got worse today patient denies any fever or chills no abdominal distension patient having 8-10 loose bowels without any blood in the stool Related Data Home Medications Medication Instructions Recorded Confirmed levonorgestrel 20 mcg/24 hours (7 1 device intrauterine ONCE 10/04/20 05/04/22 yrs) 52 mg intrauterine device (Mirena) omeprazole 20 mg capsule,delayed 20 mg PO DAILY 12/05/20 05/04/22 release mesalamine 500 mg capsule,extended 1,000 mg PO TID 04/25/21 05/04/22 release (Pentasa) cholestyramine (with sugar) 4 gram PO 10/09/21 05/04/22 oral powder dicyclomine 10 mg capsule See Rx Instructions PO QID PRN 10/09/21 05/04/22 vwdbkjx-dnwnltrbfplby-zwprhazv 250 1 tab PO Q4-6H PRN 02/05/22 05/04/22 mg-250 mg-65 mg tablet (Excedrin Extra Strength) diphenoxylate-atropine 2.5 tab PO diarrhea 05/04/22 05/04/22 mg-0.025 mg tablet prednisone 10 mg tablet 10 mg PO DAILY 05/04/22 05/04/22 vedolizumab 300 mg intravenous 300 mg IV .Q6-8W 05/04/22 05/04/22 solution (Entyvio) Previous Rx's Medication Instructions Recorded acetaminophen 325 mg tablet 650 mg PO Q8H PRN Pain, Mild (Pain 04/29/21 Scale 1-3) 30 days cyclobenzaprine 10 mg tablet 10 mg PO TID PRN muscle spasm #14 12/11/21 tabs ibuprofen 600 mg tablet 600 mg PO Q8H PRN pain #14 tabs 12/11/21 cholecalciferol (vitamin D3) 25 25 mcg PO DAILY #60 caps 02/22/22 mcg (1,000 unit) capsule escitalopram oxalate 10 mg tablet 10 mg PO DAILY 30 days #30 tabs 03/20/22 ascorbic acid (vitamin C) 500 mg 1,000 mg PO DAILY 1 month #60 caps 03/23/22 capsule clonidine HCl 0.1 mg tablet 0.1 mg PO TID PRN anxiety 30 days 04/11/22 #90 tabs tramadol 50 mg tablet 50 mg PO TID PRN pain 30 days #90 05/22/22 tabs ondansetron 4 mg disintegrating 4 mg PO Q8H PRN nausea and 06/05/22 tablet vomiting #20 tabs lorazepam 1 mg tablet (Ativan) See Rx Instructions .Route 06/13/22 .COMPLEX anxiety 10 days #15 tabs zolpidem 12.5 mg tablet,extended 12.5 mg PO BEDTIME 30 days #30 tabs 06/14/22 release,multiphase Allergies Allergy/AdvReac Type Severity Reaction Status Date / Time meperidine [From Demerol] Allergy Severe SWELLING,RASH,THROAT Verified 06/14/22 15:07 CLOSES latex [LATEX] Allergy Mild RASH Verified 06/14/22 15:07 codeine [Codeine] AdvReac Intermediate NAUSEA/VOMITING, Verified 06/14/22 15:07 GI upset/vomiting Fish Containing Products AdvReac Unknown NAUSEA/VOMI Verified 06/14/22 15:07 [Fish Product Derivatives] TING trazodone AdvReac Intermediate worsening Uncoded 05/04/22 10:06 anxiety symptoms Review of Systems Review of Systems Yes all other systems are reviewed and are negative PMFSH Past Medical History Medical History Anxiety Crohn's colitis Crohn's disease Crohns disease of small intestine Depression 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 History of renal cell cancer (~2014) Insomnia Intractable nausea and vomiting Lumbar degenerative disc disease Migraine Obesity (BMI 30-39.9) Osteoarthritis of hips, bilateral Surgical History History of arthroplasty (~01/2012) History of cryosurgery (~04/20/15) History of esophagogastroduodenoscopy (EGD) History of intestinal surgery History of removal of calculus of renal pelvis through percutaneous nephrostomy (~10/2015) Hx of colonoscopy Family History Family History Father Crohn disease Migraine Cancer Mother HTN (hypertension) Vertigo Cervical cancer Maternal Grandmother HTN (hypertension) Hyperlipidemia Diabetes mellitus Paternal Grandfather Diabetes mellitus Other Mental health problem Social History Social History Household Members: Family Housing: House Do you presently have visiting nurse or other home services: No Alcohol intake: current Alcohol intake frequency: holidays/special occasions only Patient Tobacco Use Status: Former Tobacco user Tobacco use type: Cigarette e-Cigarette/Vaping Use: Former Use Second Hand Smoke Exposure: No Advance Directives: No Advance Directives Information Provided: No service: No Current occupational status: unemployed Gender identity: Female Cognitive needs: No Hearing needs: No Vision needs: Yes (glasses) Physical Exam ED Vital Signs: Vital Signs - 24 hr 06/14/22 15:07 06/15/22 00:00 Temperature 97.6 F 98.2 F Pulse Rate 93 69 Respiratory Rate 18 Blood Pressure 125/58 L 125/64 Pulse Oximetry 98 95 Oxygen Delivery Method Room Air Room Air BMI result Body Mass Index 32.9 Appearance: Alert. Oriented X3. moderate distress. Eyes: no pallor ENT: Pharynx normal. Oral Mucosa moist Neck: Normal inspection. Neck supple. CVS: Normal heart rate and rhythm. Pulses normal. Respiratory: No respiratory distress. Equal air entry bilateral, no wheezing/rales/rhonchi Abdomen: Soft , diffuse lower abdominal tenderness and guarding no rebound tenderness, Bowel sounds are present, no mass palpable, no CVA tenderness Skin: Skin warm and dry. Normal skin color. Normal skin turgor. Extremities: No lower extremity edema. No calf tenderness Neuro: Oriented X 3. No motor deficit. MDM - Abdominal Pain MDM Narrative Medical decision making narrative: 0130: Patient with history of Crohn disease on Entyvio infusion in food worsening of the abdominal pain with normal CRP and labs CT scan also negative for any acute inflammation no blockage seen. Patient still complaining of abdominal pain requesting to stay in the hospital as she is still having lot of pain will admit patient for Crohn disease flare-up Differential Diagnosis Differential diagnosis: Likely abdominal pain Medical Records Attestation: I reviewed the patient's medical records. Lab Data Attestation: I reviewed the patient's lab results. Result diagrams: 06/14/22 15:21 06/14/22 15:21 Labs: Lab Results 06/14/22 06/14/22 06/14/22 Range/Units 15:21 15:21 21:08 WBC 8.3 (4.8-10.8) X10*3/uL RBC 4.87 (4.20-5.50) X10*6/uL Hgb 14.9 (12.0-16.0) g/dl Hct 45.8 (37.0-47.0) % MCV 94.0 (80.0-98.0) fL MCH 30.6 (27.0-33.0) pg MCHC 32.5 (31.0-35.0) g/dl RDW 13.3 (11.0-16.0) % Plt Count 282 (160-400) X10*3/uL MPV 10.2 (9.4-12.3) fL Immature Gran % (Auto) 0.4 (0.0-0.4) % Neut % (Auto) 72.5 (45-73) % Lymph % (Auto) 17.0 L (20-40) % [place] % (Auto) 8.5 (2-11) % Eos % (Auto) 1.1 (0-4) % Baso % (Auto) 0.5 (0-2) % Lymph # (Auto) 1.4 (1.2-4.9) X10*3/uL [place] # (Auto) 0.7 (0.1-1.2) X10*3/uL Eos # (Auto) 0.1 (0.0-0.4) X10*3/uL Baso # (Auto) 0.0 (0.0-0.2) X10*3/uL Abs Immat Gran (auto) 0.03 (0.00-0.03) X10*3/uL Absolute Neuts (auto) 6.0 (2.0-8.3) x10*3/uL Absolute Nucleated RBC 0.000 (0.0-0.012) X10*3/uL Nucleated RBC % (auto) 0.0 (0.0-0.2) /100WBC Sodium 140 (135-145) mmol/L Potassium 4.7 (3.3-5.1) mmol/L Chloride 109 H (96-108) mmol/L Carbon Dioxide 25 (22-29) mmol/L Anion Gap 11 L (12-20) BUN 9 D (9-16) mg/dL Creatinine 0.79 (0.5-1.4) mg/dL Estim Creat Clear Calc 88.1 Estimated GFR > 60 Random Glucose 127 H (60-115) mg/dL Calcium 9.3 (8.4-10.2) mg/dL Total Bilirubin < 0.2 (0.0-1.0) mg/dL AST 12 (5-31) U/L ALT 10 (0-31) U/L Alkaline Phosphatase 87 D (39-117) U/L C-Reactive Protein 0.27 (< or = 0.50) mg/dL Total Protein 6.7 (6.5-8.0) g/dL Albumin 3.8 (3.5-5.0) g/dL Urine Color YELLOW Urine Appearance CLEAR Urine pH 5.5 (5.0-8.0) Ur Specific [place] >= 1.030 H (1.005-1.025) Urine Protein NEG (NEG-TRACE) MG/DL Urine Glucose (UA) NEG (NEG) MG/DL Urine Ketones NEG (NEG) MG/DL Urine Blood TRACE (NEG) Urine Nitrite NEG (NEG) Ur Leukocyte Esterase NEG (NEG) Urine RBC 0-2 (0) /HPF Urine WBC 0-2 (0-4) /HPF Ur Squamous Epith Cells 3+ /LPF Urine Bacteria TRACE /LPF Imaging Data CT scan - abdomen: Radiologist's impression: [place] [id number] CT Scan Report Signed Patient: Gabi Perales MR#: [id number] : 1975 Acct:[id number] Age/Sex: 46 / F ADM Date: 06/14/22 Loc: .ED Attending Dr: Ordering Physician: Shad Ochoa MD Date of Service: 06/15/22 Procedure(s): CT abdomen pelvis w con Accession Number(s): [id number] cc: Shad Ochoa MD~ EXAMINATION: CT ABDOMEN AND PELVIS WITH CONTRAST? CLINICAL INFORMATION: Crohn's disease with pain? COMPARISON: CT abdomen and pelvis 02/21/2022? TECHNIQUE: Multidetector volumetric images were obtained from the superior aspect of the liver through the pubic symphysis following administration 85 mL of Omnipaque 350 intravenous contrast. Sagittal and coronal reformatted images were obtained on the technologist's workstation.? Oral contrast: Yes This CT examination was performed using dose optimization techniques as appropriate, variously including the following: *Automated exposure control *Adjustment of mA and/or kV according to patient size (this includes techniques or standardized protocols for targeted exams where dose is matched to indication/reason for exam; i.e. extremities or head) *Use of iterative reconstruction technique DLP: 828 mGy-cm FINDINGS: LUNG BASES: The visualized lung bases are unremarkable. Mild dependent linear atelectasis LIVER, GALLBLADDER, AND BILIARY TREE: The liver is normal in size, shape, and attenuation. No focal hepatic lesion or biliary ductal dilatation is present. The gallbladder is unremarkable with no evidence of radiopaque gallstones, gallbladder wall thickening, or obvious pericholecystic inflammatory changes.? PANCREAS: Unremarkable.? SPLEEN: Unremarkable.? ADRENAL GLANDS: Unremarkable.? KIDNEYS AND URETERS: State cortical defect along the right posterior kidney. No hydronephrosis, hydroureter, or calculi seen. No perinephric stranding. ? BLADDER: Unremarkable.? GASTROINTESTINAL TRACT: Colonic diverticulosis. Decreased wall thickening of the terminal ileum compared to CT from 02/21/2022. No new abnormality of the large or small bowel. The appendix is unremarkable. ABDOMINAL WALL: Small fat-containing umbilical hernia. LYMPH NODES: Normal. VASCULAR: Unremarkable. PELVIC VISCERA: IUD in place. 2 cm left adnexal cyst. OSSEOUS STRUCTURES: No acute or suspicious osseous abnormality. Left hip screw. CT/CT abdomen pelvis w con IMPRESSION: ? Compared to CT from 02/21/2022, decreased wall thickening of the terminal ileum. No acute abnormality in the abdomen or pelvis. Dictated By: Leonard Nolan Signed By: <Electronically signed by Leonard? An in OV> Discharge Plan Discharge Clinical Impression: Crohn disease Patient Disposition: Admitted As Inpatient
[2022-06-14 20:43] LABS: C Reactive Protein 0.27 mg/dL (< or = 0.50)
[2022-06-14] MEDS: ondansetron HCL 4 MG/2 ML VIAL IVPUSH ×2 (21:13→23:33)
[2022-06-14] MEDS: methylPREDNISolone Sod Succ 125 MG/2 ML VIAL IVPUSH (21:13)
[2022-06-14] MEDS: Morphine Sulfate 4 MG/ML CARTRIDGE IVPUSH (21:13)
[2022-06-14] MEDS: 0.9 % Sodium Chloride 1,000 ML 999 ML IV ×2 (21:14→22:31)
[2022-06-14 21:24] LABS: Appearance Urine CLEAR; Color Urine YELLOW; Glucose Urine UA NEG (NEG); Leukocyte Esterase Urine NEG (NEG); Nitrite Urine NEG (NEG); PH 5.5 (5.0-8.0); Specific Gravity - Urine >= 1.030 (1.005-1.025); UACC Culture Trigger NO; Urine Blood TRACE (NEG); Urine Ketones NEG (NEG); Urine Protein NEG (NEG-TRACE)
[2022-06-14 22:03] LABS: Bacteria Urine TRACE /LPF; RBC Urine 0-2 /HPF (0); Squamous Epithelial Cell Urine 3+ /LPF; WBC Urine 0-2 /HPF (0-4)
[2022-06-14] MEDS: HYDROmorphone HCl 2 MG/ML VIAL IVPUSH ×2 (22:30→23:33)
[2022-06-15] VITALS (8 sets, daily range): BP systolic 109–148; BP diastolic 57–94; PULSE 58–96; RESP 17–20; TEMP 36.4–37; O2SAT 93–100; BMI 32.9
[2022-06-15] MEDS: iohexoL 350 MG/ML 100 ML INFUS..BTL IV (01:26)
[2022-06-15] MEDS: Diatrizoate Meglumine, Sodium 30 ML SOLUTION PO (01:27)
[2022-06-15] MEDS: Famotidine/PF 20 MG/2 ML VIAL IVPUSH (02:16)
[2022-06-15 02:40] LABS: COVID-19 Test Negative (Negative)
[2022-06-15] MEDS: HYDROmorphone HCl 1 MG/ML SYRINGE 0.5 MG IVPUSH ×2 (03:56→08:40)
[2022-06-15] MEDS: ondansetron HCL 4 MG/2 ML VIAL IVPUSH ×3 (03:56→18:07)
[2022-06-15] MEDS: 0.9 % Sodium Chloride Flush 3 ML SYRINGE IVFLUSH ×2 (03:57→17:36)
[2022-06-15] MEDS: 0.9 % Sodium Chloride 1,000 ML 100 ML IVCONT ×3 (03:57→21:26)
[2022-06-15] MEDS: Heparin Sodium,Porcine 5,000 UNIT/ML VIAL 5000 UNIT SUBCUT (03:57)
--- NOTE | 2022-06-15 04:04 | PC.NURSE ---
pt tearful, restless, in pain. reports she is frustrated because she does not understand why she is in so much pain and does not know what is wrong with her. therapeutic conversation obtained. pt medicated per mar orders. will continue to monitor closely
--- NOTE | 2022-06-15 07:27 | PM.IMHP ---
History of Present Illness Date of Service: 06/15/22 Chief Complaint: Abd pain This is a 46-year-old female with past medical history of Crohn's disease, depression anxiety, who presents to the hospital with complaints of abdominal pain, nausea vomiting as well as diarrhea for the past 1 week. Patient reports that she has 5 or more episodes of diarrhea, has had on and off vomiting for the 1 week. She was scheduled to receive Entyvio later in the week therefore she waited to get her infusion to see if she will feel better, but after receiving Entyvio she reports that her head symptoms persisted and somewhat worsened, she called Dr. Alexis (GI) and was advised to come to ED due to intractable, persistent symptoms. 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 History of renal cell cancer (~2014) Insomnia Intractable nausea and vomiting Lumbar degenerative disc disease Migraine Obesity (BMI 30-39.9) Osteoarthritis of hips, bilateral Family History Father Crohn disease Migraine Cancer Mother HTN (hypertension) Vertigo Cervical cancer Maternal Grandmother HTN (hypertension) Hyperlipidemia Diabetes mellitus Paternal Grandfather Diabetes mellitus Other Mental health problem Surgical History History of arthroplasty (~01/2012) History of cryosurgery (~04/20/15) History of esophagogastroduodenoscopy (EGD) History of intestinal surgery History of removal of calculus of renal pelvis through percutaneous nephrostomy (~10/2015) Hx of colonoscopy Social History Household Members: Family Housing: House Do you presently have visiting nurse or other home services: No Alcohol intake: current Alcohol intake frequency: holidays/special occasions only Patient Tobacco Use Status: Former Tobacco user Tobacco use type: Cigarette e-Cigarette/Vaping Use: Former Use Second Hand Smoke Exposure: No Advance Directives: No Advance Directives Information Provided: No service: No Current occupational status: unemployed Gender identity: Female Cognitive needs: No Hearing needs: No Vision needs: Yes (glasses) Meds Allergies Allergy/AdvReac Type Severity Reaction Status Date / Time meperidine [From Demerol] Allergy Severe SWELLING,RASH,THROAT Verified 06/14/22 15:07 CLOSES latex [LATEX] Allergy Mild RASH Verified 06/14/22 15:07 codeine [Codeine] AdvReac Intermediate NAUSEA/VOMITING, Verified 06/14/22 15:07 GI upset/vomiting Fish Containing Products AdvReac Unknown NAUSEA/VOMI Verified 06/14/22 15:07 [Fish Product Derivatives] TING trazodone AdvReac Intermediate worsening Uncoded 05/04/22 10:06 anxiety symptoms Active Medications: Current Medications Acetaminophen (Acetaminophen 325 Mg Tablet) 650 mg PO Q6H PRN PRN Reason: Pain, Mild (Pain Scale 1-3) Heparin Sodium (Porcine) (Heparin Sodium,Porcine 5,000 Unit/Ml Vial) 5,000 unit SUBCUT Q12H [facility] Last Admin: 06/15/22 03:57 Dose: 5,000 unit Hydromorphone HCl (Hydromorphone Hcl 1 Mg/Ml Syringe) 0.5 mg IVPUSH Q4H PRN; Protocol PRN Reason: Pain, Severe (Pain Scale 7-10) Last Admin: 06/15/22 03:56 Dose: 0.5 mg Sodium Chloride (Ns) 1,000 mls @ 100 mls/hr IVCONT .Q10H [facility] Last Admin: 06/15/22 03:57 Dose: 100 mls/hr Methylprednisolone Sodium Succinate (Methylprednisolone Sod Succ 40 Mg/Ml Vial) 40 mg IVPUSH Q12H [facility] Ondansetron HCl (Ondansetron Hcl 4 Mg/2 Ml Vial) 4 mg IVPUSH Q8H PRN PRN Reason: Nausea and Vomiting Last Admin: 06/15/22 03:56 Dose: 4 mg Sodium Chloride (0.9 % Sodium Chloride Flush 3 Ml Syringe) 3 ml IVFLUSH QSHIFT [facility] Last Admin: 06/15/22 03:57 Dose: 3 ml Home Medications Medication Instructions Recorded Confirmed Last Taken Type levonorgestrel 20 mcg/24 hours (7 1 device intrauterine ONCE 10/04/20 05/04/22 Unknown History yrs) 52 mg intrauterine device (Mirena) omeprazole 20 mg capsule,delayed 20 mg PO DAILY 12/05/20 05/04/22 Unknown History release mesalamine 500 mg capsule,extended 1,000 mg PO TID 04/25/21 05/04/22 Unknown History release (Pentasa) cholestyramine (with sugar) 4 gram PO 10/09/21 05/04/22 Unknown History oral powder dicyclomine 10 mg capsule See Rx Instructions PO QID PRN 10/09/21 05/04/22 Unknown History yqyqnct-ojgmntcfdtmcr-lifzdehr 250 1 tab PO Q4-6H PRN 02/05/22 05/04/22 Unknown History mg-250 mg-65 mg tablet (Excedrin Extra Strength) diphenoxylate-atropine 2.5 tab PO diarrhea 05/04/22 05/04/22 Unknown History mg-0.025 mg tablet prednisone 10 mg tablet 10 mg PO DAILY 05/04/22 05/04/22 Unknown History vedolizumab 300 mg intravenous 300 mg IV .Q6-8W 05/04/22 05/04/22 Unknown History solution (Entyvio) Physical Exam Vital Signs and Narrative: Vital Signs: Last Vital Signs Temp 98.2 F 06/15/22 00:00 Pulse 58 06/15/22 06:00 Resp 18 06/14/22 15:07 BP 126/59 L 06/15/22 06:00 Pulse Ox 97 06/15/22 06:00 O2 Del Method 06/15/22 06:00 BMI result Body Mass Index 32.9 Const: General: cooperative and no acute distress Orientation/consciousness: patient oriented x3 Eyes: General: appearance normal, both eyes and all related structures Resp: Effort & Inspection: normal respiratory effort Auscultation: clear to auscultation bilaterally Cardio: Rate: regular rate Rhythm: regular rhythm GI: Other: Abdomen soft, diffuse abdominal tenderness on deep palpation with no rebound or guarding Palpation (GI): Soft to palpation Auscultation: normal bowel sounds Skin: General skin exam: no rashes or lesions noted Neuro: General: patient oriented x3 Cognition (Neuro): normal cognition Extrem: General: Yes normal to inspection and Yes no pedal edema Results Labs CBC and Chem 7: 06/14/22 15:21 06/14/22 15:21 Labs: Laboratory Results - last 24 hr 06/14/22 06/14/22 06/14/22 15:21 15:21 21:08 MCV 94.0 MCH 30.6 MCHC 32.5 RDW 13.3 Plt Count 282 MPV 10.2 Immature Gran % (Auto) 0.4 Neut % (Auto) 72.5 Lymph % (Auto) 17.0 L [place] % (Auto) 8.5 Eos % (Auto) 1.1 Baso % (Auto) 0.5 Lymph # (Auto) 1.4 [place] # (Auto) 0.7 Eos # (Auto) 0.1 Baso # (Auto) 0.0 Abs Immat Gran (auto) 0.03 Absolute Neuts (auto) 6.0 Absolute Nucleated RBC 0.000 Nucleated RBC % (auto) 0.0 Anion Gap 11 L Estim Creat Clear Calc 88.1 Estimated GFR > 60 Random Glucose 127 H Calcium 9.3 Total Bilirubin < 0.2 AST 12 ALT 10 Alkaline Phosphatase 87 D C-Reactive Protein 0.27 Total Protein 6.7 Albumin 3.8 Urine Color YELLOW Urine Appearance CLEAR Urine pH 5.5 Ur Specific [place] >= 1.030 H Urine Protein NEG Urine Glucose (UA) NEG Urine Ketones NEG Urine Blood TRACE Urine Nitrite NEG Ur Leukocyte Esterase NEG Urine RBC 0-2 Urine WBC 0-2 Ur Squamous Epith Cells 3+ Urine Bacteria TRACE COVID-19 ([facility]) COVID-19 Clin Com 06/15/22 02:21 MCV MCH MCHC RDW Plt Count MPV Immature Gran % (Auto) Neut % (Auto) Lymph % (Auto) [place] % (Auto) Eos % (Auto) Baso % (Auto) Lymph # (Auto) [place] # (Auto) Eos # (Auto) Baso # (Auto) Abs Immat Gran (auto) Absolute Neuts (auto) Absolute Nucleated RBC Nucleated RBC % (auto) Anion Gap Estim Creat Clear Calc Estimated GFR Random Glucose Calcium Total Bilirubin AST ALT Alkaline Phosphatase C-Reactive Protein Total Protein Albumin Urine Color Urine Appearance Urine pH Ur Specific [place] Urine Protein Urine Glucose (UA) Urine Ketones Urine Blood Urine Nitrite Ur Leukocyte Esterase Urine RBC Urine WBC Ur Squamous Epith Cells Urine Bacteria COVID-19 ([facility]) Negative COVID-19 Clin Com See Note Imaging Radiologist's Impressions: Impressions Abdomen/Pelvis CT 06/15/22 01:27 IMPRESSION: Compared to CT from 02/21/2022, decreased wall thickening of the terminal ileum. No acute abnormality in the abdomen or pelvis. Assessment and Plan (1) Crohn disease: Status: Acute Plan 46-year-old female with past medical history of Crohn's disease presents to the hospital with complaints of Crohn flare # Crohn's flare - with multiple episodes of diarrhea throughout the day, nausea and vomiting - will start on Solu-Medrol - GI consult - CT abdomen negative # depression anxiety - continue home medications once reconciled DVT prophylaxis: Lovenox given her crohns flare, need for iv fluids, pt will need a minimum 2 night hospital stay for further management Quality Stroke Does the patient have a stroke diagnosis?: No VTE Prior VTE?: No VTE Risk Level:: Medical - moderate - high VTE Device Contraindication: Treatment Not Indicated VTE Drug Contraindication: N/A - Med Ordered
[2022-06-15] MEDS: methylPREDNISolone Sod Succ 40 MG/ML VIAL IVPUSH ×2 (08:40→21:22)
--- NOTE | 2022-06-15 08:49 | MHC.CM.PN ---
Met with patient in regards to discharge planning. Patient just received pain medication and is currently experiencing patient. Assessment was kept short due to this. Patient lives alone, ambulates independently, and had no services prior to coming to the hospital. No services anticipated to be needed because patient is not home bound. PCP verified. Copy of HCP verified to be on file. Patient received 1 J&J vaccine. Did not get boosted because she ended up with Covid. IMM explained and signed. Patient will arrange her own transport at d/c. Continue to monitor for d/c needs.
--- NOTE | 2022-06-15 09:00 | PC.NURSE ---
Pt A&ox4, ind ambulation to the BR, tearful at this time for pain 06/27 to abd, VSS, abd soft, TTP throughout at this time. +BS, medicated as per [facility] orders for pain. Call mckeon within reach, awaiting bed assignment at this time. Will continue to monitor.
--- NOTE | 2022-06-15 10:15 | PHA.MEDREC ---
Pharmacy Consult ? Medication Reconciliation Pharmacy has completed the medication reconciliation. Patient reported medications. Patient was previosuly on ramelteon but it was switch to Ambien CR. Patient report Belsomra was not cover. Patient will bring in mesalamine. Mirna Crump, PharmD
--- NOTE | 2022-06-15 11:06 | PC.NURSE ---
Pt states pain 10/10 at this time, 2 hours since last Dialudid dose, tiger text sent to Dr. Bocanegra to adivse as PRN diluadid is ordered q4hr. Awaiting reply at this time. Will continue to monitor.
[2022-06-15] MEDS: HYDROmorphone HCl 1 MG/ML SYRINGE IVPUSH ×4 (12:20→23:12)
--- NOTE | 2022-06-15 15:45 | PC.NURSE ---
Pt requesting Ativan, Dr. Bocanegra made aware, awaiting further orders. Will continue to monitor.
--- NOTE | 2022-06-15 16:27 | PM.EVENT ---
Event Note Date of Service: 06/15/22 Event Note: Patient already seen and examined earlier by hospitalist service- patient was admitted for Crohn disease flare. Patient still has significant nausea vomiting and also has abdominal pain CT abdominal repeated this morning- shows ileitis probably related to Crohn disease. physical exam: ENT: Pharynx normal.? Moist mucous membranes. cvs: rrr, [id number] , no murmur res: clear to auscultation ,no rhonchii or wheezing abd: no rebound or guarding ,diffuse abd pain, bs present. ext pulses present , no cyanosis . neuro: axo3 , nonfocal. Assessment and plan coordinated in a H&P note. 1. Crohn disease flare: Continue IV steroids, IV Dilaudid for pain control, added Phenergan for nausea vomiting, continue hydration supportive care GI evaluation
[2022-06-15] MEDS: LORazepam 1 MG TABLET PO (18:07)
[2022-06-15] MEDS: cloNIDine HCL 0.1 MG TABLET PO ×2 (18:07→21:21)
--- NOTE | 2022-06-15 20:59 | PM.EVENT ---
Event Note Date of Service: 06/15/22 Event Note: GI Consult-Full note dictated Imp: Crohn's disease of the small intestine and perianal area with increasing GI sx despite outpatient Rx with Pentasa, Entyvio infusions started in 02/2022 and her most recent one being just yesterday, intermittent courses of prednisone, dicyclomine, and Lomotil. Her CT scans do not show any acute changes nor complications of the Crohn's and her labs all look very good, including a normal CRP. Her abdominal exam is fairly benign. She does have a lot of emotional upset in relation to the Crohn's, as well as other life stressors. She is presently having a migraine. Rec: Supportive care, IV steroids, clear liquids, resume her dicyclomine, and check stool specimens. I would also recommend a psych consult while here to see if that could help give her some relief of her anxiety and stress as I do think that would help her cope with her GI issues. I did review this with the patient and she is agreeable with that as well. Thanks.
[2022-06-15] MEDS: Mesalamine 250 MG CAPSULE.ER 1000 MG PO (21:21)
[2022-06-15] MEDS: Zolpidem Tartrate 5 MG TABLET PO (21:22)
[2022-06-15] MEDS: Acetaminophen 325 MG TABLET 650 MG PO (21:24)
[2022-06-15 22:45] LABS: CDiff Gene PCR NEGATIVE (Negative)
[2022-06-16] MEDS: 0.9 % Sodium Chloride 1,000 ML 100 ML IVCONT ×3 (02:02→21:49)
[2022-06-16] MEDS: Heparin Sodium,Porcine 5,000 UNIT/ML VIAL 5000 UNIT SUBCUT ×2 (02:06→14:10)
[2022-06-16] MEDS: HYDROmorphone HCl 1 MG/ML SYRINGE IVPUSH ×5 (03:31→22:22)
[2022-06-16 04:00] VITALS: BP 112/59; PULSE 81; RESP 16; TEMP 36; O2SAT 93
[2022-06-16] MEDS: Acetaminophen 325 MG TABLET 650 MG PO ×2 (05:50→12:12)
[2022-06-16] MEDS: Omeprazole 20 MG CAPSULE.DR PO (05:50)
[2022-06-16] MEDS: Dicyclomine HCl 10 MG CAPSULE 20 MG PO ×4 (05:51→20:04)
[2022-06-16] MEDS: cloNIDine HCL 0.1 MG TABLET PO ×3 (05:56→20:04)
--- NOTE | 2022-06-16 05:58 | MHC.PIE ---
p; pt c/o anxiety asking for anti anxiety meds. note prn catapress daily given yesterday at 1800. i; dr celaya notified; give early dose now e; will cont to monitor
--- NOTE | 2022-06-16 06:31 | CONS_ITS ---
DATE OF SERVICE: 06/15/2022 REASON FOR CONSULTATION: Crohn's disease. HISTORY OF PRESENT ILLNESS: The patient is a 46-year-old female well known to me with an underlying history of Crohn's disease involving her small bowel, left colon, and perianal disease. Most recently, her symptoms have continued to be problematic with needing intermittent courses of prednisone. She had been actually doing fairly well on a regimen of Humira started in June 2021, but this subsequently had to be stopped due to some worsening GI symptoms and the finding of subtherapeutic Humira levels and elevated Humira antibodies. She was switched to Entyvio infusions in February and just received her first maintenance infusion yesterday as well. She was on prednisone up until late April. Over this past month, she describes that she has had progressive symptoms of diarrhea and abdominal discomfort. She went on a camping trip about 2 weeks ago and had exacerbation of the diarrhea there as well. She has not noticed any signs of bleeding. She has been having increasing lower abdominal pain, more so on the left side. She denies any fevers. She has had nausea but no vomiting. She has not been using any antibiotics nor NSAIDs. She has had no ill contacts nor travel, other than the recent camping trip. She does describe a lot of stress in her life both in relation to the Crohn's disease and other issues. She is also having a migraine at the present time. She has been having nausea but no vomiting here in the hospital. She has had some diarrhea here in the hospital. MEDICATIONS: At home include the Entyvio infusions, Pentasa 1 g q.i.d., dicyclomine, omeprazole, Lomotil, Lexapro, lorazepam p.r.n., Zofran. PAST MEDICAL HISTORY: Crohn's disease since 2008. She has had complications involving perianal disease with fistulae and fissures, as well as erythema nodosum. She has had depression and anxiety. Hypertension. Kidney stones. Reflux. Her most recent colonoscopy was in 2008 with active ileitis and a normal-appearing colon with biopsies negative for dysplasia. She was hospitalized twice in 2020 for Crohn's disease, treated with IV steroids and prednisone. She had COVID in August 2021. 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 That was [place] [address] Messer. She has had surgery for perianal disease in the including sphincterotomy and anal dilatation. FAMILY HISTORY: Notable for father with Crohn's disease. SOCIAL HISTORY: . She is single. She does not smoke nor use any significant amounts of alcohol. REVIEW OF SYSTEMS: CONSTITUTIONAL: She has been feeling poorly in relation to the Crohn disease and stress. SKIN: No rash. No pruritus. CARDIAC: No chest pain. PULMONARY: No coughing, no hemoptysis. GI: As above. PHYSICAL EXAMINATION: GENERAL: The patient is anxious, tearful female. She is having some nausea and headache at the present time. SKIN: Warm and dry. Anicteric sclerae. Moist mucous membranes. ABDOMEN: Soft. Normal bowel sounds and nondistended. She does have some left-sided tenderness but without mass or rebound. EXTREMITIES: Without edema. LABORATORY DATA: White blood cell count 8.3, hemoglobin 14.9, platelets 282,000. Normal electrolytes. BUN 9, creatinine 0.8. LFTs normal. C-reactive protein 0.3, albumin 3.8. She had 2 [address] scans since admission describing the chronic changes in the terminal ileum from her known Crohn disease, but without any sign of bowel obstruction, abscess, nor any significant mesenteric stranding. There is no abdominal fluid collection. There was no diverticulitis. She had some tiny nonobstructing bilateral kidney stones. There is no hydronephrosis. IMPRESSION: I do feel that she is having some obvious symptomatology from her Crohn's disease. However, there does not appear to be any complications based on her CT scan, lab work, and the clinical abdominal exam. She does have some other issues going on at the present time including stress that she readily admits to as well as her migraine. I suspect this is all contributing to her distress and emotional upset. At this point, I would continue her treatment with the relatively low dose of IV steroids, supportive care with IV fluids and just clear liquids for the time being, dicyclomine, and Lomotil p.r.n., and I would also check stool specimens including C difficile and a full GI panel to exclude any enteric infection given that description of what she describes as some exacerbation of her GI symptoms while on her camping trip. I also reviewed with her that I think it would be a good idea for her to possibly speak with somebody from the psych team while she is here to see if that can help give her some relief of her anxiety and stress as I do think that would help her cope with her GI issues as well. I do not think she needs any further imaging studies nor endoscopic intervention while she is here at this time. I did review with her that she will continue her outpatient Entyvio infusions as she just recently started them and I think we need to give that more time to see if that can give her more improvement in regard to the Crohn's disease and more prolonged relief. This has all been discussed with her in detail. MD ROGER Burrell/TALIB / [id number] MTDD
[2022-06-16 07:23] LABS: Anion Gap 14 (12-20); Blood Urea Nitrogen 11 mg/dL (9-16); Calcium 8.6 mg/dL (8.4-10.2); Carbon Dioxide 21 mmol/L (22-29); Chloride 109 mmol/L (96-108); Estimated Glomerular Filt Rate > 60; Glucose Random 159 mg/dL (60-115); Potassium 3.9 mmol/L (3.3-5.1); Sodium 140 mmol/L (135-145)
[2022-06-16 07:48] VITALS: BP 101/56; PULSE 52; RESP 16; TEMP 35.8; O2SAT 96
[2022-06-16] MEDS: LORazepam 1 MG TABLET PO ×2 (08:53→20:03)
[2022-06-16] MEDS: ondansetron HCL 4 MG/2 ML VIAL IVPUSH (08:53)
[2022-06-16] MEDS: Escitalopram Oxalate 10 MG TABLET PO (08:53)
[2022-06-16] MEDS: methylPREDNISolone Sod Succ 40 MG/ML VIAL IVPUSH ×2 (08:53→20:04)
[2022-06-16] MEDS: Mesalamine 250 MG CAPSULE.ER 1000 MG PO ×4 (08:54→20:03)
[2022-06-16 10:00] LABS: Campylobacter Not Detected (Not Detect.); Cryptosporidium Not Detected (Not Detect.); Cyclospora cayetanensis Not Detected (Not Detect.); E. coli EAEC Not Detected (Not Detect.); E. coli EPEC Not Detected (Not Detect.); E. coli ETEC Not Detected (Not Detect.); E. coli STEC Not Detected (Not Detect.); Entamoeba histolytica Not Detected (Not Detect.); Plesiomonas shigelloides Not Detected (Not Detect.); Salmonella Not Detected (Not Detect.); Shigella sp./EIEC Not Detected (Not Detect.); Vibrio Not Detected (Not Detect.); Vibrio Cholerae Not Detected (Not Detect.); Yersinia enterocolitica Not Detected (Not Detect.)
[2022-06-16 10:01] LABS: Adenovirus F 40/41 Not Detected (Not Detect.); Astrovirus Not Detected (Not Detect.); Giardia lamblia Not Detected (Not Detect.); Norovirus GI/GII Not Detected (Not Detect.); Rotavirus A Not Detected (Not Detect.); Sapovirus Not Detected (Not Detect.)
[2022-06-16 11:36] VITALS: BP 116/56; PULSE 57; RESP 18; TEMP 34.6; O2SAT 95
--- NOTE | 2022-06-16 11:44 | P.PNIM_ITS ---
Subjective Subjective Date of Service: 06/16/22 Interval History: crohn dis flare Review of Systems Patient has still significant abdominal pain, still anxious feel nauseated- even clear liquid as per patient are not easily tolerated w ithout pain. Physical Exam Vital Signs: Vital Signs: Last Vital Signs Temp 94.2 F L 06/16/22 11:36 Pulse 57 06/16/22 11:36 Resp 18 06/16/22 11:36 BP 116/56 L 06/16/22 11:36 Pulse Ox 95 06/16/22 11:36 O2 Del Method 06/16/22 11:36 BMI result Body Mass Index 32.9 ENT: Pharynx normal.? Moist mucous membranes. cvs: rrr, [id number] , no murmur res: clear to auscultation ,no rhonchii or wheezing abd: no rebound or guarding ,diffuse abd pain, bs present. ext pulses present , no cyanosis . neuro: axo3 , nonfocal. Objective Data Active Medications Acetaminophen (Acetaminophen 325 Mg Tablet) 650 mg PO Q6H PRN PRN Reason: Pain, Mild (Pain Scale 1-3) Last Admin: 06/16/22 05:50 Dose: 650 mg Documented By: PB Acetaminophen (Acetaminophen 325 Mg Tablet) 650 mg PO Q8H PRN PRN Reason: Pain, Mild (Pain Scale 1-3) Clonidine HCl (Clonidine Hcl 0.1 Mg Tablet) 0.1 mg PO DAILY PRN; Protocol PRN Reason: anxiety Last Admin: 06/16/22 05:56 Dose: 0.1 mg Documented By: PB Comments: md roth early dose Clonidine HCl (Clonidine Hcl 0.1 Mg Tablet) 0.1 mg PO BID [facility]; Protocol Last Admin: 06/16/22 08:54 Dose: 0.1 mg Documented By: MAXI Dicyclomine HCl (Dicyclomine Hcl 10 Mg Capsule) 20 mg PO QIDACHS PRN PRN Reason: GI Upset Last Admin: 06/16/22 05:51 Dose: 20 mg Documented By: PB Diphenoxylate HCl/Atropine (Diphenoxylate/Atrop 2.5/0.025 Tablet) 1 - 2 tab PO Q6H PRN PRN Reason: Diarrhea Escitalopram Oxalate (Escitalopram Oxalate 10 Mg Tablet) 10 mg PO DAILY [facility] Last Admin: 06/16/22 08:53 Dose: 10 mg Documented By: MAXI Heparin Sodium (Porcine) (Heparin Sodium,Porcine 5,000 Unit/Ml Vial) 5,000 unit SUBCUT Q12H [facility] Last Admin: 06/16/22 02:06 Dose: 5,000 unit Documented By: PB Hydromorphone HCl (Hydromorphone Hcl 1 Mg/Ml Syringe) 1 mg IVPUSH Q4H PRN; Protocol PRN Reason: Pain, Severe (Pain Scale 7-10) Last Admin: 06/16/22 08:53 Dose: 1 mg Documented By: MAXI Sodium Chloride (Ns) 1,000 mls @ 100 mls/hr IVCONT .Q10H [facility] Last Admin: 06/16/22 02:02 Dose: 100 mls/hr Documented By: PB Promethazine HCl 6.25 mg/ (Sodium Chloride) 50.25 mls @ 201 mls/hr IV Q6H PRN PRN Reason: Nausea Lorazepam (Lorazepam 1 Mg Tablet) 1 mg PO BID [facility] Last Admin: 06/16/22 08:53 Dose: 1 mg Documented By: MAXI Mesalamine (Mesalamine 250 Mg Capsule.Er) 1,000 mg PO QID [facility] Last Admin: 06/16/22 08:54 Dose: 1,000 mg Documented By: MAXI Methylprednisolone Sodium Succinate (Methylprednisolone Sod Succ 40 Mg/Ml Vial) 40 mg IVPUSH Q12H [facility] Last Admin: 06/16/22 08:53 Dose: 40 mg Documented By: MAXI Omeprazole (Omeprazole 20 Mg Capsule.Dr) 20 mg PO DAILY@0630 [facility] Last Admin: 06/16/22 05:50 Dose: 20 mg Documented By: PB Ondansetron HCl (Ondansetron Hcl 4 Mg/2 Ml Vial) 4 mg IVPUSH Q8H PRN PRN Reason: Nausea and Vomiting Last Admin: 06/16/22 08:53 Dose: 4 mg Documented By: MAXI Pharmacy Consult (Consult Rx Perform Med Rec) 1 each MISCELLANE ONCE PRN PRN Reason: Consult order Sodium Chloride (0.9 % Sodium Chloride Flush 3 Ml Syringe) 3 ml IVFLUSH QSHIFT [facility] Last Admin: 06/16/22 07:14 Dose: Not Given Documented By: MAXI Non-Admin Reason: IV Running Zolpidem Tartrate (Zolpidem Tartrate 5 Mg Tablet) 5 mg PO BEDTIME [facility] Last Admin: 06/15/22 21:22 Dose: 5 mg Documented By: PB Labs CBC & Chem 7: 06/14/22 15:21 06/16/22 06:37 Labs: Laboratory Results - last 24 hr 06/15/22 06/15/22 06/16/22 21:25 21:25 06:37 Anion Gap 14 Estim Creat Clear Calc 94.0 Estimated GFR > 60 Random Glucose 159 H Calcium 8.6 D Stl C. cayetanensis PCR Not Detected Stool Rotavirus A PCR Not Detected Stl Adenov F 40/41 PCR Not Detected Stool Astrovirus (PCR) Not Detected Stool Campylobacter PCR Not Detected Stool Cryptosporidium PCR Not Detected Stl Sh Tox Pr E STEC PCR Not Detected Stool E coli O157 PCR Not applicable Stl Enterotoxigenic E PCR Not Detected Stool EPEC (PCR) Not Detected Stool EAEC (PCR) Not Detected Stl E. histolytica PCR Not Detected Stool Giardia Lamblia PCR Not Detected Stl P. shigelloides PCR Not Detected Stool Salmonella PCR Not Detected Stool Sapovirus (PCR) Not Detected Stl Shigella/EIEC PCR Not Detected St Y.enterocolitica PCR Not Detected Stool Vibrio (PCR) Not Detected Stl Vibrio cholerae PCR Not Detected Stl Norovirus GI/GII PCR Not Detected C. difficile Tox B Gene NEGATIVE Assessment and Plan (1) Crohn disease: Status: Acute Plan 1. Crohn disease flare: ? Continue IV steroids, IV Dilaudid for pain control, added Phenergan for nausea vomiting, continue hydration supportive care ?GI evaluation noted -continue current management. 2.depression anxiety - continue home medications once reconciled psych eval DVT prophylaxis: Lovenox inaptient need:Crohn disease flare needs iv steriods/pain meds. Quality Stroke Does the patient have a stroke diagnosis?: No VTE Prior VTE?: No VTE Risk Level:: Medical - moderate - high VTE Device Contraindication: Treatment Not Indicated VTE Drug Contraindication: N/A - Med Ordered
[2022-06-16 12:56] LABS: Leukocytes Stool Qualitative NEGATIVE (NEGATIVE)
--- NOTE | 2022-06-16 14:04 | P.CNHOSGPS_ITS ---
History of Present Illness Data of Consult Service Date: 06/16/22 Requesting physician: Nicholas Bocanegra Primary Care Provider: MD MIRIAM Sparks Reason for consult: Assesment of depression The patient is a 46 year old female, mother of adult children, with a long history of Crohn's disease, obesity, metabolic syndrome and dysphoria admitted for an exacerbation of Crohn's with severe abdominal pain and nausea with poor PO tolerability. The patient admitted depressive symptoms elicited by depressed mood, anhedonia, lack of energy, feelings of hopelesness, feelings of worthlesness and increased anxiety in the context of severe abdominal pain, GI incontinence and nausea. She adamantly denied psychotic symptoms or suicidail thoughts. On interview, she was fully aware of the possible side effects on her mood with corticoids or biological agents. Historically, she reported increased depression and anxiety with Humira several years ago. There was no evidence of safety concerns at this moment. FORMERLY [facility] Medical History Anxiety Crohn's colitis Crohn's disease Crohns disease of small intestine Depression 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 History of renal cell cancer (~2014) Insomnia Intractable nausea and vomiting Lumbar degenerative disc disease Migraine Obesity (BMI 30-39.9) Osteoarthritis of hips, bilateral Family History Father Crohn disease Migraine Cancer Mother HTN (hypertension) Vertigo Cervical cancer Maternal Grandmother HTN (hypertension) Hyperlipidemia Diabetes mellitus Paternal Grandfather Diabetes mellitus Other Mental health problem Surgical History History of arthroplasty (~01/2012) History of cryosurgery (~04/20/15) History of esophagogastroduodenoscopy (EGD) History of intestinal surgery History of removal of calculus of renal pelvis through percutaneous nephrostomy (~10/2015) Hx of colonoscopy Social History Household Members: Significant Other and Children Housing: House Do you presently have visiting nurse or other home services: No Alcohol intake: current Alcohol intake frequency: holidays/special occasions only Patient Tobacco Use Status: Former Tobacco user Tobacco use type: Cigarette e-Cigarette/Vaping Use: Former Use Second Hand Smoke Exposure: No service: No Current occupational status: unemployed Gender identity: Female Cognitive needs: No Hearing needs: No Vision needs: Yes (glasses) Narrative: Middle age female with several medical problems with depression and anxiety in the context of a new flair of Crohn's disease. Dysphoric and anxious but with no psychotic symptoms or suicidalilty. Meds Allergies Allergy/AdvReac Type Severity Reaction Status Date / Time meperidine [From Demerol] Allergy Severe SWELLING,RASH,THROAT Verified 06/14/22 15:07 CLOSES latex [LATEX] Allergy Mild RASH Verified 06/14/22 15:07 codeine [Codeine] AdvReac Intermediate NAUSEA/VOMITING, Verified 06/14/22 15:07 GI upset/vomiting Fish Containing Products AdvReac Unknown NAUSEA/VOMI Verified 06/14/22 15:07 [Fish Product Derivatives] TING trazodone AdvReac Intermediate worsening Uncoded 05/04/22 10:06 anxiety symptoms Active Medications: Current Medications Acetaminophen (Acetaminophen 325 Mg Tablet) 650 mg PO Q6H PRN PRN Reason: Pain, Mild (Pain Scale 1-3) Last Admin: 06/16/22 12:12 Dose: 650 mg Acetaminophen (Acetaminophen 325 Mg Tablet) 650 mg PO Q8H PRN PRN Reason: Pain, Mild (Pain Scale 1-3) Clonidine HCl (Clonidine Hcl 0.1 Mg Tablet) 0.1 mg PO DAILY PRN; Protocol PRN Reason: anxiety Last Admin: 06/16/22 05:56 Dose: 0.1 mg Clonidine HCl (Clonidine Hcl 0.1 Mg Tablet) 0.1 mg PO BID BENJAMIN; Protocol Last Admin: 06/16/22 08:54 Dose: 0.1 mg Dicyclomine HCl (Dicyclomine Hcl 10 Mg Capsule) 20 mg PO QIDACHS PRN PRN Reason: GI Upset Last Admin: 06/16/22 12:12 Dose: 20 mg Diphenoxylate HCl/Atropine (Diphenoxylate/Atrop 2.5/0.025 Tablet) 1 - 2 tab PO Q6H PRN PRN Reason: Diarrhea Escitalopram Oxalate (Escitalopram Oxalate 10 Mg Tablet) 10 mg PO DAILY BENJAMIN Last Admin: 06/16/22 08:53 Dose: 10 mg Heparin Sodium (Porcine) (Heparin Sodium,Porcine 5,000 Unit/Ml Vial) 5,000 unit SUBCUT Q12H [facility] Last Admin: 06/16/22 02:06 Dose: 5,000 unit Hydromorphone HCl (Hydromorphone Hcl 1 Mg/Ml Syringe) 1 mg IVPUSH Q4H PRN; Protocol PRN Reason: Pain, Severe (Pain Scale 7-10) Last Admin: 06/16/22 08:53 Dose: 1 mg Sodium Chloride (Ns) 1,000 mls @ 100 mls/hr IVCONT .Q10H [facility] Last Admin: 06/16/22 12:06 Dose: 100 mls/hr Promethazine HCl 6.25 mg/ (Sodium Chloride) 50.25 mls @ 201 mls/hr IV Q6H PRN PRN Reason: Nausea Lorazepam (Lorazepam 1 Mg Tablet) 1 mg PO BID [facility] Last Admin: 06/16/22 08:53 Dose: 1 mg Mesalamine (Mesalamine 250 Mg Capsule.Er) 1,000 mg PO QID [facility] Last Admin: 06/16/22 12:12 Dose: 1,000 mg Methylprednisolone Sodium Succinate (Methylprednisolone Sod Succ 40 Mg/Ml Vial) 40 mg IVPUSH Q12H [facility] Last Admin: 06/16/22 08:53 Dose: 40 mg Omeprazole (Omeprazole 20 Mg Capsule.Dr) 20 mg PO DAILY@0630 [facility] Last Admin: 06/16/22 05:50 Dose: 20 mg Ondansetron HCl (Ondansetron Hcl 4 Mg/2 Ml Vial) 4 mg IVPUSH Q8H PRN PRN Reason: Nausea and Vomiting Last Admin: 06/16/22 08:53 Dose: 4 mg Pharmacy Consult (Consult Rx Perform Med Rec) 1 each MISCELLANE ONCE PRN PRN Reason: Consult order Sodium Chloride (0.9 % Sodium Chloride Flush 3 Ml Syringe) 3 ml IVFLUSH QSHIFT [facility] Last Admin: 06/16/22 07:14 Dose: Not Given Zolpidem Tartrate (Zolpidem Tartrate 5 Mg Tablet) 5 mg PO BEDTIME [facility] Last Admin: 06/15/22 21:22 Dose: 5 mg Home Medications Medication Instructions Recorded Confirmed Last Taken Type levonorgestrel 20 mcg/24 hours (7 1 device intrauterine ONCE 10/04/20 06/15/22 Unknown History yrs) 52 mg intrauterine device (Mirena) omeprazole 20 mg capsule,delayed 20 mg PO DAILY 12/05/20 06/15/22 Unknown History release cholestyramine (with sugar) 4 gram 1 ea PO TID PRN gi upset 10/09/21 06/15/22 Unknown History oral powder [id number] 250 1 tab PO Q4-6H PRN Insomnia 02/05/22 06/15/22 Unknown History mg-250 mg-65 mg tablet (Excedrin Extra Strength) diphenoxylate-atropine 2.5 1 - 2 tab PO Q6H PRN Diarrhea 05/04/22 06/15/22 Unknown History mg-0.025 mg tablet vedolizumab 300 mg intravenous 300 mg IV .Q6-8W 05/04/22 06/15/22 Unknown History solution (Entyvio) budesonide 3 mg 3 cap PO DAILY 06/15/22 06/15/22 Unknown History capsule,delayed,extended release clonidine HCl 0.1 mg tablet 0.1 mg PO DAILY PRN anxiety 06/15/22 06/15/22 Unknown History clonidine HCl 0.1 mg tablet 1 tab PO BID 06/15/22 06/15/22 Unknown History lorazepam 1 mg tablet (Ativan) 1 mg PO BID anxiety 06/15/22 06/15/22 Unknown History mesalamine 500 mg capsule,extended 2 cap PO QID 06/15/22 06/15/22 Unknown History release Results Labs CBC and Chem 7: 06/14/22 15:21 06/16/22 06:37 Labs: Laboratory Results - last 24 hr 06/15/22 06/15/22 06/16/22 21:25 21:25 06:37 Anion Gap 14 Estim Creat Clear Calc 94.0 Estimated GFR > 60 Random Glucose 159 H Calcium 8.6 D Stool Leukocytes, Qual Stl C. cayetanensis PCR Not Detected Stool Rotavirus A PCR Not Detected Stl Adenov F 40/41 PCR Not Detected Stool Astrovirus (PCR) Not Detected Stool Campylobacter PCR Not Detected Stool Cryptosporidium PCR Not Detected Stl Sh Tox Pr E STEC PCR Not Detected Stool E coli O157 PCR Not applicable Stl Enterotoxigenic E PCR Not Detected Stool EPEC (PCR) Not Detected Stool EAEC (PCR) Not Detected Stl E. histolytica PCR Not Detected Stool Giardia Lamblia PCR Not Detected Stl P. shigelloides PCR Not Detected Stool Salmonella PCR Not Detected Stool Sapovirus (PCR) Not Detected Stl Shigella/EIEC PCR Not Detected St Y.enterocolitica PCR Not Detected Stool Vibrio (PCR) Not Detected Stl Vibrio cholerae PCR Not Detected Stl Norovirus GI/GII PCR Not Detected C. difficile Tox B Gene NEGATIVE 06/16/22 Unknown Anion Gap Estim Creat Clear Calc Estimated GFR Random Glucose Calcium Stool Leukocytes, Qual NEGATIVE Stl C. cayetanensis PCR Stool Rotavirus A PCR Stl Adenov F 40/41 PCR Stool Astrovirus (PCR) Stool Campylobacter PCR Stool Cryptosporidium PCR Stl Sh Tox Pr E STEC PCR Stool E coli O157 PCR Stl Enterotoxigenic E PCR Stool EPEC (PCR) Stool EAEC (PCR) Stl E. histolytica PCR Stool Giardia Lamblia PCR Stl P. shigelloides PCR Stool Salmonella PCR Stool Sapovirus (PCR) Stl Shigella/EIEC PCR St Y.enterocolitica PCR Stool Vibrio (PCR) Stl Vibrio cholerae PCR Stl Norovirus GI/GII PCR C. difficile Tox B Gene Imaging Radiologist's Impressions: Impressions Abdomen/Pelvis CT 06/15/22 13:50 IMPRESSION: 1. Abnormal mural thickening in the terminal ileum demonstrates overall similar appearance consistent with history of Crohn's disease. No acute associated abnormality. 2. Nonobstructing intrarenal calculi bilaterally. 3. Mild to moderate colonic diverticulosis without evidence for acute diverticulitis. Assessment and Plan (1) Anxiety: Status: Acute Plan Plan: 1. Continue with Lexapro and Ativan PRN. 2. If the patient presents with psychotic symptoms due to the use of corticoids or biological agents, reconsult to assess the possibility of a short course of antipsychotics. Physical Exam Vital Signs: Last Vital Signs Temp 94.2 F L 06/16/22 11:36 Pulse 57 06/16/22 11:36 Resp 18 06/16/22 11:36 BP 116/56 L 06/16/22 11:36 Pulse Ox 95 06/16/22 11:36 O2 Del Method 06/16/22 11:36 BMI result Body Mass Index 32.9 Eyes Pupils: Equal, round and reactive pupils present Neuro Cranial nerves: Yes CN's II-XII intact bilaterally, Yes Facial sensation intact/muscles of mastication intact, Yes Intact sense of smell present, Yes Equal, round and reactive pupils present, Yes Normal accommodation reflex present and Yes Nystagmus not present
[2022-06-16 15:51] VITALS: BP 149/73; PULSE 63; RESP 17; TEMP 36.2; O2SAT 94
--- NOTE | 2022-06-16 16:44 | PM.GIPN ---
Subjective Subjective Date of Service: 06/16/22 Interval History: She reports feeling a little better with less discomfort and nausea. She had two small soft and liquid BM's. She spoke with psych and thinks that helped as well. Critical Care Time (minutes): 0 Physical Exam Vital Signs: Vital Signs: Last Vital Signs Temp 97.1 F 06/16/22 15:51 Pulse 63 06/16/22 15:51 Resp 17 06/16/22 15:51 BP 149/73 H 06/16/22 15:51 Pulse Ox 94 06/16/22 15:51 O2 Del Method 06/16/22 15:51 BMI result Body Mass Index 32.9 Const: General: cooperative, healthy appearing, comfortable, no acute distress, well developed, alert and anxious GI: Other: +BS, soft, nondistended, mild tenderness in LLQ, no mass Objective Data Labs CBC & Chem 7: 06/14/22 15:21 06/16/22 06:37 Labs: Laboratory Results - last 24 hr 06/15/22 06/15/22 06/16/22 21:25 21:25 06:37 Sodium 140 Potassium 3.9 Chloride 109 H Carbon Dioxide 21 L Anion Gap 14 BUN 11 Creatinine 0.74 Estim Creat Clear Calc 94.0 Estimated GFR > 60 Random Glucose 159 H Calcium 8.6 D Stool Leukocytes, Qual Stl C. cayetanensis PCR Not Detected Stool Rotavirus A PCR Not Detected Stl Adenov F 40/41 PCR Not Detected Stool Astrovirus (PCR) Not Detected Stool Campylobacter PCR Not Detected Stool Cryptosporidium PCR Not Detected Stl Sh Tox Pr E STEC PCR Not Detected Stool E coli O157 PCR Not applicable Stl Enterotoxigenic E PCR Not Detected Stool EPEC (PCR) Not Detected Stool EAEC (PCR) Not Detected Stl E. histolytica PCR Not Detected Stool Giardia Lamblia PCR Not Detected Stl P. shigelloides PCR Not Detected Stool Salmonella PCR Not Detected Stool Sapovirus (PCR) Not Detected Stl Shigella/EIEC PCR Not Detected St Y.enterocolitica PCR Not Detected Stool Vibrio (PCR) Not Detected Stl Vibrio cholerae PCR Not Detected Stl Norovirus GI/GII PCR Not Detected C. difficile Tox B Gene NEGATIVE 06/16/22 Unknown Sodium Potassium Chloride Carbon Dioxide Anion Gap BUN Creatinine Estim Creat Clear Calc Estimated GFR Random Glucose Calcium Stool Leukocytes, Qual NEGATIVE Stl C. cayetanensis PCR Stool Rotavirus A PCR Stl Adenov F 40/41 PCR Stool Astrovirus (PCR) Stool Campylobacter PCR Stool Cryptosporidium PCR Stl Sh Tox Pr E STEC PCR Stool E coli O157 PCR Stl Enterotoxigenic E PCR Stool EPEC (PCR) Stool EAEC (PCR) Stl E. histolytica PCR Stool Giardia Lamblia PCR Stl P. shigelloides PCR Stool Salmonella PCR Stool Sapovirus (PCR) Stl Shigella/EIEC PCR St Y.enterocolitica PCR Stool Vibrio (PCR) Stl Vibrio cholerae PCR Stl Norovirus GI/GII PCR C. difficile Tox B Gene Procedures Date of Service Date of Service: 06/16/22 Progress Note: A&P Assessment and plan (1) Crohn disease: Status: Acute Assessment and Plan: Imp: Clinically improved after IV steroids and dose of Entyvio. Her anxiety seems a little less as well. Rec: Supportive care and reassurance. If stable on Saturday, 06/17, I would recommend her IV steroids be changed to prednisone 40mg po per day starting on Saturday with a 5mg/week taper(I can send a Rx to her pharmacy for that). Continue Pentasa and other symptomatic treatment. Advance diet slowly tomorrow if stable. Hopefully be able to discharge her late tomorrow or Saturday depending how things go. Will continue Entyvio as an outpatient. D/W patient in detail and she is comfortable with this plan Time Spent With Patient Time: Total time spent is greater than 50% in coordination of care (as documented) at patient's floor/unit and/or counseling patient: Quality Stroke Does the patient have a stroke diagnosis?: No VTE Prior VTE?: No VTE Risk Level:: Medical - moderate - high VTE Device Contraindication: Treatment Not Indicated VTE Drug Contraindication: N/A - Med Ordered
[2022-06-16 19:17] VITALS: BP 130/65; PULSE 81; RESP 16; TEMP 36.7; O2SAT 95
[2022-06-16] MEDS: Zolpidem Tartrate 5 MG TABLET PO (20:04)
[2022-06-16 23:41] VITALS: BP 131/62; PULSE 54; RESP 14; TEMP 36.3; O2SAT 93
[2022-06-17 03:47] VITALS: BP 138/67; PULSE 51; RESP 16; TEMP 36.4; O2SAT 97
[2022-06-17] MEDS: Heparin Sodium,Porcine 5,000 UNIT/ML VIAL 5000 UNIT SUBCUT ×2 (05:08→16:33)
[2022-06-17] MEDS: Omeprazole 20 MG CAPSULE.DR PO (05:09)
[2022-06-17] MEDS: HYDROmorphone HCl 1 MG/ML SYRINGE IVPUSH ×5 (05:10→21:20)
[2022-06-17 07:25] VITALS: BP 161/82; PULSE 61; RESP 18; TEMP 36.3; O2SAT 99
[2022-06-17] MEDS: methylPREDNISolone Sod Succ 40 MG/ML VIAL IVPUSH ×2 (07:48→21:21)
[2022-06-17] MEDS: Dicyclomine HCl 10 MG CAPSULE 20 MG PO ×4 (07:49→21:21)
[2022-06-17] MEDS: Mesalamine 250 MG CAPSULE.ER 1000 MG PO ×4 (07:49→21:21)
[2022-06-17] MEDS: cloNIDine HCL 0.1 MG TABLET PO ×2 (07:50→21:21)
[2022-06-17] MEDS: LORazepam 1 MG TABLET PO ×2 (07:50→21:21)
[2022-06-17] MEDS: Escitalopram Oxalate 10 MG TABLET PO (07:50)
[2022-06-17] MEDS: ondansetron HCL 4 MG/2 ML VIAL IVPUSH (09:12)
--- NOTE | 2022-06-17 09:22 | P.PNIM_ITS ---
Subjective Subjective Date of Service: 06/17/22 Interval History: Crohn disease flare. Review of Systems Continue to have discomfort with clear liquids, liquid BMs Physical Exam Vital Signs: Vital Signs: Last Vital Signs Temp 97.4 F 06/17/22 07:25 Pulse 61 06/17/22 07:25 Resp 18 06/17/22 07:25 BP 161/82 H 06/17/22 07:25 Pulse Ox 99 06/17/22 07:25 O2 Del Method 06/17/22 07:25 BMI result Body Mass Index 32.9 ENT: Pharynx normal.? Moist mucous membranes. cvs: rrr, [id number] , no murmur res: clear to auscultation ,no rhonchii or wheezing abd: no rebound or guarding ,diffuse abd pain, bs present. ext pulses present , no cyanosis . neuro: axo3 , nonfocal. Objective Data Active Medications Acetaminophen (Acetaminophen 325 Mg Tablet) 650 mg PO Q6H PRN PRN Reason: Pain, Mild (Pain Scale 1-3) Last Admin: 06/16/22 12:12 Dose: 650 mg Documented By: MAXI Acetaminophen (Acetaminophen 325 Mg Tablet) 650 mg PO Q8H PRN PRN Reason: Pain, Mild (Pain Scale 1-3) Clonidine HCl (Clonidine Hcl 0.1 Mg Tablet) 0.1 mg PO DAILY PRN; Protocol PRN Reason: anxiety Last Admin: 06/16/22 05:56 Dose: 0.1 mg Documented By: PB Comments: md roth early dose Clonidine HCl (Clonidine Hcl 0.1 Mg Tablet) 0.1 mg PO BID COUNT INCLUDES THE [facility]; Protocol Last Admin: 06/17/22 07:50 Dose: 0.1 mg Documented By: ESAU Dicyclomine HCl (Dicyclomine Hcl 10 Mg Capsule) 20 mg PO QIDACHS COUNT INCLUDES THE [facility] Last Admin: 06/17/22 07:49 Dose: 20 mg Documented By: ESAU Diphenoxylate HCl/Atropine (Diphenoxylate/Atrop 2.5/0.025 Tablet) 1 - 2 tab PO Q6H PRN PRN Reason: Diarrhea Escitalopram Oxalate (Escitalopram Oxalate 10 Mg Tablet) 10 mg PO DAILY COUNT INCLUDES THE [facility] Last Admin: 06/17/22 07:50 Dose: 10 mg Documented By: ESAU Heparin Sodium (Porcine) (Heparin Sodium,Porcine 5,000 Unit/Ml Vial) 5,000 unit SUBCUT Q12H COUNT [facility]CLUDES THE [facility] Last Admin: 06/17/22 05:08 Dose: 5,000 unit Documented By: PB Hydromorphone HCl (Hydromorphone Hcl 1 Mg/Ml Syringe) 1 mg IVPUSH Q4H PRN; Protocol PRN Reason: Pain, Severe (Pain Scale 7-10) Last Admin: 06/17/22 09:12 Dose: 1 mg Documented By: ESAU Sodium Chloride (Ns) 1,000 mls @ 100 mls/hr IVCONT .Q10H COUNT INCLUDES THE [facility] Last Infusion: 06/17/22 08:19 Dose: 0 mls/hr Documented By: ESAU Promethazine HCl 6.25 mg/ (Sodium Chloride) 50.25 mls @ 201 mls/hr IV Q6H PRN PRN Reason: Nausea Last Infusion: 06/16/22 15:46 Dose: 0 mls/hr Documented By: MAXI Lorazepam (Lorazepam 1 Mg Tablet) 1 mg PO BID COUNT INCLUDES THE [facility] Last Admin: 06/17/22 07:50 Dose: 1 mg Documented By: ESAU Mesalamine (Mesalamine 250 Mg Capsule.Er) 1,000 mg PO QID COUNT INCLUDES THE [facility] Last Admin: 06/17/22 07:49 Dose: 1,000 mg Documented By: ESAU Methylprednisolone Sodium Succinate (Methylprednisolone Sod Succ 40 Mg/Ml Vial) 40 mg IVPUSH Q12H COUNT INCLUDES THE [facility] Last Admin: 06/17/22 07:48 Dose: 40 mg Documented By: ESAU Omeprazole (Omeprazole 20 Mg Capsule.Dr) 20 mg PO DAILY@0630 COUNT [facility]CLUDES [facility] Last Admin: 06/17/22 05:09 Dose: 20 mg Documented By: PB Ondansetron HCl (Ondansetron Hcl 4 Mg/2 Ml Vial) 4 mg IVPUSH Q8H PRN PRN Reason: Nausea and Vomiting Last Admin: 06/17/22 09:12 Dose: 4 mg Documented By: ESAU Pharmacy Consult (Consult Rx Perform Med Rec) 1 each MISCELLANE ONCE PRN PRN Reason: Consult order Sodium Chloride (0.9 % Sodium Chloride Flush 3 Ml Syringe) 3 ml IVFLUSH QSHIFT COUNT INCLUDES THE [facility] Last Admin: 06/17/22 07:50 Dose: Not Given Documented By: ESAU Non-Admin Reason: IV Running Zolpidem Tartrate (Zolpidem Tartrate 5 Mg Tablet) 5 mg PO BEDTIME BENJAMIN Last Admin: 06/16/22 20:04 Dose: 5 mg Documented By: PB Labs CBC & Chem 7: 06/14/22 15:21 06/16/22 06:37 Labs: Laboratory Results - last 24 hr 06/15/22 06/16/22 21:25 Unknown Stool Leukocytes, Qual NEGATIVE Stl C. cayetanensis PCR Not Detected Stool Rotavirus A PCR Not Detected Stl Adenov F 40/41 PCR Not Detected Stool Astrovirus (PCR) Not Detected Stool Campylobacter PCR Not Detected Stool Cryptosporidium PCR Not Detected Stl Sh Tox Pr E STEC PCR Not Detected Stool E coli O157 PCR Not applicable Stl Enterotoxigenic E PCR Not Detected Stool EPEC (PCR) Not Detected Stool EAEC (PCR) Not Detected Stl E. histolytica PCR Not Detected Stool Giardia Lamblia PCR Not Detected Stl P. shigelloides PCR Not Detected Stool Salmonella PCR Not Detected Stool Sapovirus (PCR) Not Detected Stl Shigella/EIEC PCR Not Detected St Y.enterocolitica PCR Not Detected Stool Vibrio (PCR) Not Detected Stl Vibrio cholerae PCR Not Detected Stl Norovirus GI/GII PCR Not Detected Assessment and Plan (1) Crohn disease: Status: Acute Plan 1. Crohn disease flare: may try full liquid to see if tolerate ? Continue IV steroids, IV Dilaudid for pain control, added Phenergan for nausea vomiting, continue hydration supportive care ?GI evaluation noted -continue current management. 2.depression anxiety - continue home medications once reconciled psych eval- continue current medications, further adjustment outpatient if needed. DVT prophylaxis: Lovenox inaptient need:Crohn disease flare needs iv steriods/pain meds. Quality Stroke Does the patient have a stroke diagnosis?: No VTE Prior VTE?: No VTE Risk Level:: Medical - moderate - high VTE Device Contraindication: Treatment Not Indicated VTE Drug Contraindication: N/A - Med Ordered
[2022-06-17 14:46] VITALS: BP 129/69; PULSE 52; RESP 18; TEMP 36.5; O2SAT 97
[2022-06-17 15:42] VITALS: BP 141/69; PULSE 54; RESP 18; TEMP 37.2; O2SAT 97
[2022-06-17] MEDS: 0.9 % Sodium Chloride 1,000 ML 100 ML IVCONT (17:08)
[2022-06-17] MEDS: Zolpidem Tartrate 5 MG TABLET PO (21:21)
[2022-06-18] VITALS: BP 154/80; PULSE 63; RESP 18; TEMP 36.2; O2SAT 97
[2022-06-18] MEDS: 0.9 % Sodium Chloride 1,000 ML 100 ML IVCONT (02:38)
[2022-06-18] MEDS: Heparin Sodium,Porcine 5,000 UNIT/ML VIAL 5000 UNIT SUBCUT ×2 (02:39→15:11)
[2022-06-18] MEDS: HYDROmorphone HCl 1 MG/ML SYRINGE IVPUSH ×5 (02:41→20:08)
[2022-06-18 04:00] VITALS: BP 141/86; PULSE 67; RESP 18; TEMP 36.3; O2SAT 97
[2022-06-18] MEDS: Omeprazole 20 MG CAPSULE.DR PO (05:58)
[2022-06-18] MEDS: Diphenoxylate/Atrop 2.5/0.025 TABLET PO (06:41)
[2022-06-18 07:52] VITALS: BP 149/87; PULSE 50; RESP 17; TEMP 36.6; O2SAT 96
[2022-06-18] MEDS: Mesalamine 250 MG CAPSULE.ER 1000 MG PO ×4 (08:32→20:08)
[2022-06-18] MEDS: LORazepam 1 MG TABLET PO ×2 (08:32→20:08)
[2022-06-18] MEDS: Dicyclomine HCl 10 MG CAPSULE 20 MG PO ×4 (08:33→20:08)
[2022-06-18] MEDS: cloNIDine HCL 0.1 MG TABLET PO ×2 (08:33→20:08)
[2022-06-18] MEDS: Escitalopram Oxalate 10 MG TABLET PO (08:33)
[2022-06-18] MEDS: methylPREDNISolone Sod Succ 40 MG/ML VIAL IVPUSH (08:34)
[2022-06-18] MEDS: ondansetron HCL 4 MG/2 ML VIAL IVPUSH (08:35)
[2022-06-18 11:00] VITALS: BP 153/90; PULSE 52; RESP 18; TEMP 36.4; O2SAT 94
--- NOTE | 2022-06-18 13:34 | P.DS_ITS ---
DS: Providers Provider Date of Service: 06/18/22 Date of admission: 06/15/22 02:01 Primary care physician: Jaswant Frank MD Consults: 06/15/22 05:32 Consult to Gastroenterology Routine Consulting Provider: Matthew Alexis Reason for consultation: Crohns flare Has provider been notified: Yes 06/16/22 07:36 Consult to Psychiatry Routine Consulting Provider: Psych Covering Reason for consultation: severe anxiety Has provider been notified: No DS: Diagnosis Discharge Diagnosis (1) Crohn disease: Status: Acute DS: Summary Hospital Course Hospital Course: 46-year-old female with past medical history of Crohn's disease, depression anxiety, who presents to the hospital with complaints of abdominal pain, nausea vomiting as well as diarrhea for the past 1 week.? Patient reports that she has 5 or more episodes of diarrhea, has had on and off vomiting for the 1 week.? She was scheduled to receive Entyvio later in the week therefore she waited to get her infusion to see if she will feel better, but after receiving? Entyvio she reports that her head symptoms persisted and somewhat worsened, she called Dr. Alexis (GI) and was advised to come to ED due to intractable, persistent symptom s. On arrival to the ED patient hemodynamically stable with no significant abnormal vitals Labs unremarkable Abdominal pelvic CT showed decreased wall thickening of the terminal ileum, no acute abnormality. Hospital course: patient came to the hospital because of Crohn disease flare: Started on IV steroids and stool studies done including C diff -seems negative. With IV steroid and supportive care patient seems to improved significantly, tolerating diet- going home with p.o. prednisone taper. Further management of Crohn disease out patiently, patient is to follow up with GI Dr. Alexis outpatient. Patient also has anxiety component: Seen by psych- Recommended further adjustment of her psych medication out patiently. Above management discussed with the patient in detail length she understand and in agreement with the above plan, time spent 50 minutes and 50% time spent on counseling. Significant findings: As above. Procedures performed: None. Treatment and response: As above. Complications: None. Time Spent with Patient Time attestation: Total time spent providing and/or coordinating discharge services: Discharge coordination time: Greater than 30 minutes Quality: Safe Use of Opioids Does Pt have an Active Cancer Diagnosis on the Problem List?: No Quality: Stroke Does the patient have a stroke diagnosis?: No Physical Exam Vital Signs: Vital Signs: Last Vital Signs Temp 97.6 F 06/18/22 11:00 Pulse 52 06/18/22 11:00 Resp 18 06/18/22 11:00 BP 153/90 H 06/18/22 11:00 Pulse Ox 94 06/18/22 11:00 O2 Del Method 06/18/22 11:00 BMI result Body Mass Index 32.9 ?ENT: Pharynx normal.? Moist mucous membranes. cvs: rrr, [id number] , no murmur res: clear to auscultation ,no rhonchii or wheezing abd: no rebound or guarding ,abd pain seems improved, bs present. ext pulses present , no cyanosis . neuro: axo3 , nonfocal. DS: Data Additional Comments Additional comments: Laboratory Results - last 24 hr 06/15/22 06/16/22A ? 21:25 Unknown Stool Leukocytes, Qual ? ?NEGATIVE Stl C. cayetanensis PCR ?Not Detected ? Stool Rotavirus A PCR ?Not Detected ? Stl Adenov F 40/41 PCR ?Not Detected ? Stool Astrovirus (PCR) ?Not Detected ? Stool Campylobacter PCR ?Not Detected ? Stool Cryptosporidium PCR ?Not Detected ? Stl Sh Tox Pr E STEC PCR ?Not Detected ? Stool E coli O157 PCR ?Not applicable ? Stl Enterotoxigenic E PCR ?Not Detected ? Stool EPEC (PCR) ?Not Detected ? Stool EAEC (PCR) ?Not Detected ? Stl E. histolytica PCR ?Not Detected ? Stool Giardia Lamblia PCR ?Not Detected ? Stl P. shigelloides PCR ?Not Detected ? Stool Salmonella PCR ?Not Detected ? Stool Sapovirus (PCR) ?Not Detected ? Stl Shigella/EIEC PCR ?Not Detected ? St Y.enterocolitica PCR ?Not Detected ? Stool Vibrio (PCR) ?Not Detected ? Stl Vibrio cholerae PCR ?Not Detected ? Stl Norovirus GI/GII PCR ?Not Detected ? Laboratory Results - last 24 hr ? 06/15/22 06/15/22 06/16/22 ? 21:25 21:25 06:37 Anion Gap ? ? ?14 Estim Creat Clear Calc ? ? ?94.0 Estimated GFR ? ? ?> 60 Random Glucose ? ? ?159 H Calcium ? ? ?8.6? D Stl C. cayetanensis PCR ?Not Detected ? ? Stool Rotavirus A PCR ?Not Detected ? ? Stl Adenov F 40/41 PCR ?Not Detected ? ? Stool Astrovirus (PCR) ?Not Detected ? ? Stool Campylobacter PCR ?Not Detected ? ? Stool Cryptosporidium PCR ?Not Detected ? ? Stl Sh Tox Pr E STEC PCR ?Not Detected ? ? Stool E coli O157 PCR ?Not applicable ?B ? Stl Enterotoxigenic E PCR ?Not Detected ? ? Stool EPEC (PCR) ?Not Detected ? ? Stool EAEC (PCR) ?Not DetectedB ? ? Stl E. histolytica PCR ?Not Detected ? ? Stool Giardia Lamblia PCR ?Not Detected ? ? Stl P. shigelloides PCR ?Not Detected ? ? Stool Salmonella PCR ?Not Detected ? ? Stool Sapovirus (PCR) ?Not Detected ? ? Stl Shigella/EIEC PCR ?Not Detected ? ? St Y.enterocolitica PCR ?Not Detected ? ? Stool Vibrio (PCR) ?Not Detected ? ? Stl Vibrio cholerae PCR ?Not Detected ? ? Stl Norovirus GI/GII PCR ?Not Detected ? ? C. difficile Tox B Gene ? ?NEGATIVE ? CT/CT abdomen pelvis w con IMPRESSION: ? Compared to CT from 02/21/2022, decreased wall thickening of the terminal ileum. No acute abnormality in the abdomen or pelvis. Discharge Plan Discharge Patient Disposition: Home, Self-Care Discharge Diagnosis: crohn disease flare Referrals: Jaswant Frank MD [Primary Care Provider] - 1 Week Discharge Medications: New prednisone 10 mg tablet See Rx Instructions .ROUTE .COMPLEX Qty: 120 0RF Rx Instructions: 40 mg by mouth daily for 6 days, then switch to 35 mg p.o. prednisone for 1 week, then 30 mg po for 1 week,then 25mg po for 1 week,then 20 mg po for1 week,then 15 mg po for 1 week,then 10 mg po 1 week,then 5 mg po 1 week.follow up with GI. Continued escitalopram oxalate 10 mg tablet 10 mg PO DAILY 30 Days Qty: 30 2RF tramadol 50 mg tablet 50 mg PO TID PRN (Reason: pain) 30 Days Qty: 90 0RF ondansetron 4 mg tablet,disintegrating 4 mg PO Q8H PRN (Reason: nausea and vomiting) Qty: 20 0RF zolpidem 12.5 mg tablet,ext release multiphase 12.5 mg PO BEDTIME 30 Days Qty: 30 1RF acetaminophen 325 mg Tablet 650 mg PO Q8H PRN (Reason: Pain, Mild (Pain Scale 1-3)) 30 Days 0RF mesalamine 500 mg capsule, extended release 2 cap PO QID clonidine HCl 0.1 mg tablet 1 tab PO BID clonidine HCl 0.1 mg tablet 0.1 mg PO DAILY PRN (Reason: anxiety) lorazepam [Ativan] 1 mg tablet 1 mg PO BID Rx Instructions: Take 1 tablet ONE to TWO TIMES A DAY ONLY NEEDED for increased anxiety; budesonide 3 mg capsule,delayed,extend.release 3 cap PO DAILY Mirena 20 mcg/24 hours (6 yrs) 52 mg intrauterine device 1 device intrauterine ONCE cholestyramine (with sugar) 4 gram powder 1 ea PO TID PRN (Reason: gi upset) omeprazole 20 mg capsule,delayed release(DR/EC) 20 mg PO DAILY diphenoxylate-atropine 2.5-0.025 mg tablet 1 - 2 tab PO Q6H PRN (Reason: Diarrhea) Excedrin Extra Strength 250-250-65 mg tablet 1 tab PO Q4-6H PRN (Reason: Insomnia) Entyvio 300 mg recon soln 300 mg IV .Q6-8W Rx Instructions: administer over 30 mins Discharge Orders: Discharge Order (Routine); Ordered 06/18/22 Ordered By: Nicholas Bocanegra Diet: Advance to usual diet Activity on Discharge: As tolerated Stand Alone Forms: Patient Portal Discharge page Care Plan Goals: patient came to the hospital because of Crohn disease flare: Started on IV steroids and stool studies done including C diff -seems negative. With IV steroid and supportive care patient seems to improved significantly, tolerating diet- going home with p.o. prednisone taper. Further management of Crohn disease out patiently, patient is to follow up with GI Dr. Alexis outpatient. Patient also has anxiety component: Seen by psych- Recommended further adjustment of her psych medication out patiently. Health Concerns: If patient condition worsen -significant abdominal pain or fever or any new symptoms- patient should go to nearest emergency room for evaluation. Plan of Treatment: Complete prednisone taper. Follow up with GI- for further management of Crohn disease outpatient. Assessment: As above.
--- NOTE | 2022-06-18 13:43 | MHC.CM.PN ---
Addendum entered by Marian Tobin RN 06/18/22 15:08: PER HOSPITALIST PT DOES NOT FEEL READY FOR D/C AND WILL REMAIN INPT UNTIL TOMORROW 06/19/22. Original Note: PT MEDICALLY CLEARED FOR D/C HOME SELF-CARE, PT TO ARRANGE TRANSPORT
[2022-06-18] MEDS: Acetaminophen 325 MG TABLET 650 MG PO (14:14)
[2022-06-18] MEDS: predniSONE 20 MG TABLET 40 MG PO (14:14)
--- NOTE | 2022-06-18 14:52 | P.PNIM_ITS ---
Subjective Subjective Date of Service: 06/18/22 Interval History: Crohn disease flare. Review of Systems Continue to have discomfort abd discomfort with regular food. Denies any chest pain or shortness of breath Physical Exam Vital Signs: Vital Signs: Last Vital Signs Temp 97.6 F 06/18/22 11:00 Pulse 52 06/18/22 11:00 Resp 18 06/18/22 11:00 BP 153/90 H 06/18/22 11:00 Pulse Ox 94 06/18/22 11:00 O2 Del Method 06/18/22 11:00 BMI result Body Mass Index 32.9 ENT: Pharynx normal.? Moist mucous membranes. cvs: rrr, [id number] , no murmur res: clear to auscultation ,no rhonchii or wheezing abd: no rebound or guarding ,has abd pain back /nausea after eating , bs present. ext pulses present , no cyanosis . neuro: axo3 , nonfocal Objective Data Active Medications Acetaminophen (Acetaminophen 325 Mg Tablet) 650 mg PO Q6H PRN PRN Reason: Pain, Mild (Pain Scale 1-3) Last Admin: 06/18/22 14:14 Dose: 650 mg Documented By: ENRRIQUE Acetaminophen (Acetaminophen 325 Mg Tablet) 650 mg PO Q8H PRN PRN Reason: Pain, Mild (Pain Scale 1-3) Clonidine HCl (Clonidine Hcl 0.1 Mg Tablet) 0.1 mg PO DAILY PRN; Protocol PRN Reason: anxiety Last Admin: 06/16/22 05:56 Dose: 0.1 mg Documented By: PB Comments: md roth early dose Clonidine HCl (Clonidine Hcl 0.1 Mg Tablet) 0.1 mg PO BID BENJAMIN; Protocol Last Admin: 06/18/22 08:33 Dose: 0.1 mg Documented By: ENRRIQUE Dicyclomine HCl (Dicyclomine Hcl 10 Mg Capsule) 20 mg PO QIDACHS [facility] Last Admin: 06/18/22 11:57 Dose: 20 mg Documented By: ENRRIQUE Diphenoxylate HCl/Atropine (Diphenoxylate/Atrop 2.5/0.025 Tablet) 1 - 2 tab PO Q6H PRN PRN Reason: Diarrhea Last Admin: 06/18/22 06:41 Dose: 1 tab Documented By: DEISY Comments: loose stool 3x Escitalopram Oxalate (Escitalopram Oxalate 10 Mg Tablet) 10 mg PO DAILY [facility] Last Admin: 06/18/22 08:33 Dose: 10 mg Documented By: ENRRIQUE Heparin Sodium (Porcine) (Heparin Sodium,Porcine 5,000 Unit/Ml Vial) 5,000 unit SUBCUT Q12H [facility] Last Admin: 06/18/22 02:39 Dose: 5,000 unit Documented By: FACUNDOILBhakti Hydromorphone HCl (Hydromorphone Hcl 1 Mg/Ml Syringe) 1 mg IVPUSH Q4H PRN; Protocol PRN Reason: Pain, Severe (Pain Scale 7-10) Last Admin: 06/18/22 10:40 Dose: 1 mg Documented By: ENRRIQUE Promethazine HCl 6.25 mg/ (Sodium Chloride) 50.25 mls @ 201 mls/hr IV Q6H PRN PRN Reason: Nausea Last Admin: 06/18/22 14:16 Dose: 201 mls/hr Documented By: ENRRIQUE Lorazepam (Lorazepam 1 Mg Tablet) 1 mg PO BID [facility] Last Admin: 06/18/22 08:32 Dose: 1 mg Documented By: ENRRIQUE Mesalamine (Mesalamine 250 Mg Capsule.Er) 1,000 mg PO QID [facility] Last Admin: 06/18/22 14:13 Dose: 1,000 mg Documented By: ENRRIQUE Omeprazole (Omeprazole 20 Mg Capsule.Dr) 20 mg PO DAILY@0630 [facility] Last Admin: 06/18/22 05:58 Dose: 20 mg Documented By: DEISY Ondansetron HCl (Ondansetron Hcl 4 Mg/2 Ml Vial) 4 mg IVPUSH Q8H PRN PRN Reason: Nausea and Vomiting Last Admin: 06/18/22 08:35 Dose: 4 mg Documented By: ENRRIQUE Pharmacy Consult (Consult Rx Perform Med Rec) 1 each MISCELLANE ONCE PRN PRN Reason: Consult order Sodium Chloride (0.9 % Sodium Chloride Flush 3 Ml Syringe) 3 ml IVFLUSH QSHIFT [facility] Last Admin: 06/18/22 08:44 Dose: Not Given Documented By: ENRRIQUE Non-Admin Reason: IV Running Zolpidem Tartrate (Zolpidem Tartrate 5 Mg Tablet) 5 mg PO BEDTIME [facility] Last Admin: 06/17/22 21:21 Dose: 5 mg Documented By: PB Labs CBC & Chem 7: 06/14/22 15:21 06/16/22 06:37 Assessment and Plan (1) Crohn disease: Status: Acute Plan 1. Crohn disease flare: may try full liquid to see if tolerate ? Continue IV steroids, IV Dilaudid for pain control, added Phenergan for nausea vomiting, continue hydration supportive care ?GI evaluation noted -continue current management. 2.depression anxiety - continue home medications once reconciled psych eval- continue current medications, further adjustment outpatient if needed. DVT prophylaxis: Lovenox inaptient need:Crohn disease flare needs iv steriods/pain meds. Quality Stroke Does the patient have a stroke diagnosis?: No VTE Prior VTE?: No VTE Risk Level:: Medical - moderate - high VTE Device Contraindication: Treatment Not Indicated VTE Drug Contraindication: N/A - Med Ordered
[2022-06-18] MEDS: 0.9 % Sodium Chloride Flush 3 ML SYRINGE IVFLUSH ×2 (17:45→20:09)
[2022-06-18 20:00] VITALS: BP 130/70; PULSE 63; RESP 16; TEMP 36.2; O2SAT 95
[2022-06-18] MEDS: Zolpidem Tartrate 5 MG TABLET PO (20:08)
[2022-06-18 23:41] VITALS: BP 178/87; PULSE 60; RESP 17; TEMP 36.4; O2SAT 95
[2022-06-19] MEDS: HYDROmorphone HCl 1 MG/ML SYRINGE IVPUSH ×2 (01:21→05:50)
[2022-06-19] MEDS: Heparin Sodium,Porcine 5,000 UNIT/ML VIAL 5000 UNIT SUBCUT ×2 (01:25→15:04)
[2022-06-19] MEDS: cloNIDine HCL 0.1 MG TABLET PO ×3 (01:26→20:23)
[2022-06-19 04:00] VITALS: BP 165/79; PULSE 52; RESP 17; TEMP 36.7; O2SAT 97
[2022-06-19] MEDS: ondansetron HCL 4 MG/2 ML VIAL IVPUSH (04:26)
[2022-06-19] MEDS: Omeprazole 20 MG CAPSULE.DR PO (05:50)
[2022-06-19 06:33] LABS: MANUAL DIFF FLAG NO
[2022-06-19 06:38] LABS: Hematocrit 37.8 % (37.0-47.0); Hemoglobin 12.5 g/dl (12.0-16.0); Imm Gran Abs Auto 0.12 X10*3/uL (0.00-0.03); Imm Gran Pct Auto 1.4 % (0.0-0.4); Lymphocytes Absolute Auto 1.1 X10*3/uL (1.2-4.9); Lymphocytes Percent Auto 12.5 % (20-40); Mean Corpuscular HGB Conc 33.1 g/dl (31.0-35.0); Mean Corpuscular Hemoglobin 30.3 pg (27.0-33.0); Mean Corpuscular Volume 91.7 fL (80.0-98.0); Monocytes Absolute Auto 0.9 X10*3/uL (0.1-1.2); Monocytes Percent Auto 10.1 % (2-11); Neutrophils Absolute Auto 6.7 x10*3/uL (2.0-8.3); Platelet Count 222 X10*3/uL (160-400); Red Blood Count 4.12 X10*6/uL (4.20-5.50); Red Cell Distribution Width 13.1 % (11.0-16.0); White Blood Count 8.8 X10*3/uL (4.8-10.8)
[2022-06-19 06:56] LABS: Anion Gap 13 (12-20); Blood Urea Nitrogen 13 mg/dL (9-16); C Reactive Protein 0.11 mg/dL (< or = 0.50); Calcium 8.7 mg/dL (8.4-10.2); Carbon Dioxide 24 mmol/L (22-29); Chloride 107 mmol/L (96-108); Creatinine Clr Calc Pharmacy 100.8; Estimated Glomerular Filt Rate > 60; Glucose Fasting 110 mg/dL (60-99); Potassium 3.8 mmol/L (3.3-5.1); Sodium 140 mmol/L (135-145)
[2022-06-19 07:29] VITALS: BP 188/87; PULSE 50; RESP 18; TEMP 36.2; O2SAT 97
[2022-06-19 07:54] LABS: Erythrocyte Sedimentation Rate 5 MM/HR (0-20)
[2022-06-19] MEDS: Escitalopram Oxalate 10 MG TABLET PO (08:27)
[2022-06-19] MEDS: Dicyclomine HCl 10 MG CAPSULE 20 MG PO ×4 (08:27→20:24)
[2022-06-19] MEDS: LORazepam 1 MG TABLET PO ×2 (08:27→20:22)
[2022-06-19] MEDS: 0.9 % Sodium Chloride Flush 3 ML SYRINGE IVFLUSH ×3 (08:28→22:50)
[2022-06-19] MEDS: Mesalamine 250 MG CAPSULE.ER 1000 MG PO ×4 (08:28→20:24)
[2022-06-19] MEDS: predniSONE 20 MG TABLET 40 MG PO (08:28)
[2022-06-19] MEDS: oxyCODONE HCl Immed Release 5 MG TABLET PO ×3 (10:05→22:13)
--- NOTE | 2022-06-19 11:28 | HO.PM.IMPN ---
Subjective Subjective Date of Service: 06/19/22 Interval History: Crohn disease flare, still has some abd pain with food and n/v Review of Systems Continue to have discomfort abd discomfort with regular food. Denies any chest pain or shortness of breath Physical Exam Vital Signs: Vital Signs: Last Vital Signs Temp 97.1 F 06/19/22 07:29 Pulse 50 06/19/22 07:29 Resp 18 06/19/22 07:29 BP 188/87 H 06/19/22 07:29 Pulse Ox 97 06/19/22 07:29 O2 Del Method 06/19/22 07:29 BMI result Body Mass Index 32.9 Const: Other: General: AO X 3, no acute distress Resp: CTA bilateral CVS: S1,S2,RRR GI: +BS, some tenderness Skin: No rash Neuro: motor grossly intact Psych: appropriate affect Objective Data Active Medications Acetaminophen (Acetaminophen 325 Mg Tablet) 650 mg PO Q6H PRN PRN Reason: Pain, Mild (Pain Scale 1-3) Last Admin: 06/18/22 14:14 Dose: 650 mg Documented By: ENRRIQUE Acetaminophen (Acetaminophen 325 Mg Tablet) 650 mg PO Q8H PRN PRN Reason: Pain, Mild (Pain Scale 1-3) Clonidine HCl (Clonidine Hcl 0.1 Mg Tablet) 0.1 mg PO DAILY PRN; Protocol PRN Reason: anxiety Last Admin: 06/19/22 01:26 Dose: 0.1 mg Documented By: COLETTE Clonidine HCl (Clonidine Hcl 0.1 Mg Tablet) 0.1 mg PO BID [facility]; Protocol Last Admin: 06/19/22 08:27 Dose: 0.1 mg Documented By: ENRRIQUE Dicyclomine HCl (Dicyclomine Hcl 10 Mg Capsule) 20 mg PO QIDACHS [facility] Last Admin: 06/19/22 08:27 Dose: 20 mg Documented By: ENRRIQUE Diphenoxylate HCl/Atropine (Diphenoxylate/Atrop 2.5/0.025 Tablet) 1 - 2 tab PO Q6H PRN PRN Reason: Diarrhea Last Admin: 06/18/22 06:41 Dose: 1 tab Documented By: DEISY Comments: loose stool 3x Escitalopram Oxalate (Escitalopram Oxalate 10 Mg Tablet) 10 mg PO DAILY [facility] Last Admin: 06/19/22 08:27 Dose: 10 mg Documented By: ENRRIQUE Heparin Sodium (Porcine) (Heparin Sodium,Porcine 5,000 Unit/Ml Vial) 5,000 unit SUBCUT Q12H [facility] Last Admin: 06/19/22 01:25 Dose: 5,000 unit Documented By: COLETTE Hydromorphone HCl (Hydromorphone Hcl 1 Mg/Ml Syringe) 1 mg IVPUSH Q4H PRN; Protocol PRN Reason: Pain, Severe (Pain Scale 7-10) Last Admin: 06/19/22 05:50 Dose: 1 mg Documented By: COLETTE Promethazine HCl 6.25 mg/ (Sodium Chloride) 50.25 mls @ 201 mls/hr IV Q6H PRN PRN Reason: Nausea Last Infusion: 06/19/22 10:38 Dose: 0 mls/hr Documented By: ENRRIQUE Lorazepam (Lorazepam 1 Mg Tablet) 1 mg PO BID [facility] Last Admin: 06/19/22 08:27 Dose: 1 mg Documented By: ENRRIQUE Mesalamine (Mesalamine 250 Mg Capsule.Er) 1,000 mg PO QID [facility] Last Admin: 06/19/22 08:28 Dose: 1,000 mg Documented By: ENRRIQUE Omeprazole (Omeprazole 20 Mg Capsule.Dr) 20 mg PO DAILY@0630 [facility] Last Admin: 06/19/22 05:50 Dose: 20 mg Documented By: COLETTE Ondansetron HCl (Ondansetron Hcl 4 Mg/2 Ml Vial) 4 mg IVPUSH Q8H PRN PRN Reason: Nausea and Vomiting Last Admin: 06/19/22 04:26 Dose: 4 mg Documented By: COLETTE Oxycodone HCl (Oxycodone Hcl Immed Release 5 Mg Tablet) 5 mg PO Q6H PRN PRN Reason: Pain, Severe (Pain Scale 7-10) Last Admin: 06/19/22 10:05 Dose: 5 mg Documented By: ENRRIQUE Pharmacy Consult (Consult Rx Perform Med Rec) 1 each MISCELLANE ONCE PRN PRN Reason: Consult order Prednisone (Prednisone 20 Mg Tablet) 40 mg PO DAILY [facility] Last Admin: 06/19/22 08:28 Dose: 40 mg Documented By: ENRRIQUE Sodium Chloride (0.9 % Sodium Chloride Flush 3 Ml Syringe) 3 ml IVFLUSH QSHIFT [facility] Last Admin: 06/19/22 08:28 Dose: 3 ml Documented By: ENRRIQUE Zolpidem Tartrate (Zolpidem Tartrate 5 Mg Tablet) 5 mg PO BEDTIME [facility] Last Admin: 06/18/22 20:08 Dose: 5 mg Documented By: COLETTE Labs CBC & Chem 7: 06/19/22 06:12 06/19/22 06:12 Labs: Laboratory Results - last 24 hr 06/19/22 06/19/22 06/19/22 06:12 06:12 06:12 MCV 91.7 MCH 30.3 MCHC 33.1 RDW 13.1 Plt Count 222 MPV 11.0 Immature Gran % (Auto) 1.4 H Neut % (Auto) 76.0 H Lymph % (Auto) 12.5 L [place] % (Auto) 10.1 Eos % (Auto) 0.0 Baso % (Auto) 0.0 Lymph # (Auto) 1.1 L [place] # (Auto) 0.9 Eos # (Auto) 0.0 Baso # (Auto) 0.0 Abs Immat Gran (auto) 0.12 H Absolute Neuts (auto) 6.7 Absolute Nucleated RBC 0.000 Nucleated RBC % (auto) 0.0 ESR 5 Anion Gap 13 Estim Creat Clear Calc 100.8 Estimated GFR > 60 Fasting Glucose 110 H Calcium 8.7 C-Reactive Protein 0.11 Assessment and Plan (1) Crohn disease: Status: Acute Plan 46/F w/ 1. Crohn disease flar improving, downgrade to oxycodone, advance diet, prednisone aure 2.depression anxiety--continue meds DVT prophylaxis: Lovenox inaptient need:Crohn disease flare needs iv steriods/pain meds. Quality Stroke Does the patient have a stroke diagnosis?: No VTE Prior VTE?: No VTE Risk Level:: Medical - moderate - high VTE Device Contraindication: Treatment Not Indicated VTE Drug Contraindication: N/A - Med Ordered
[2022-06-19 12:00] VITALS: BP 180/82; PULSE 52; RESP 18; TEMP 36.4; O2SAT 97
[2022-06-19] MEDS: Acetaminophen 325 MG TABLET 650 MG PO ×2 (12:59→19:11)
--- NOTE | 2022-06-19 13:14 | MHC.CM.PN ---
Per Rounds discussion, patient is Not yet medically cleared for discharge today r/t Crohn Disease flare up; needs IV steroids/pain meds. D/C continues to be Home (self-Care). CM will continue to follow for D/C needs.
[2022-06-19 15:14] VITALS: BP 142/67; PULSE 62; RESP 16; TEMP 36.5; O2SAT 96
--- NOTE | 2022-06-19 18:02 | PM.GIPN ---
Subjective Subjective Date of Service: 06/19/22 Interval History: She reports continued improvement with less abdominal discomfort, tolerating diet, and only 2 soft brown stools today. Critical Care Time (minutes): 0 Physical Exam Vital Signs: Vital Signs: Last Vital Signs Temp 97.7 F 06/19/22 15:14 Pulse 62 06/19/22 15:14 Resp 16 06/19/22 15:14 BP 142/67 H 06/19/22 15:14 Pulse Ox 96 06/19/22 15:14 O2 Del Method 06/19/22 15:14 BMI result Body Mass Index 32.9 Const: General: cooperative, healthy appearing, comfortable, no acute distress, well developed and alert GI: Other: +BS, soft, nondistended, NT--overall much improved from admission Objective Data Labs CBC & Chem 7: 06/19/22 06:12 06/19/22 06:12 Labs: Laboratory Results - last 24 hr 06/19/22 06/19/22 06/19/22 06:12 06:12 06:12 WBC 8.8 RBC 4.12 L Hgb 12.5 Hct 37.8 MCV 91.7 MCH 30.3 MCHC 33.1 RDW 13.1 Plt Count 222 MPV 11.0 Immature Gran % (Auto) 1.4 H Neut % (Auto) 76.0 H Lymph % (Auto) 12.5 L [place] % (Auto) 10.1 Eos % (Auto) 0.0 Baso % (Auto) 0.0 Lymph # (Auto) 1.1 L [place] # (Auto) 0.9 Eos # (Auto) 0.0 Baso # (Auto) 0.0 Abs Immat Gran (auto) 0.12 H Absolute Neuts (auto) 6.7 Absolute Nucleated RBC 0.000 Nucleated RBC % (auto) 0.0 ESR 5 Sodium 140 Potassium 3.8 Chloride 107 Carbon Dioxide 24 Anion Gap 13 BUN 13 Creatinine 0.69 Estim Creat Clear Calc 100.8 Estimated GFR > 60 Fasting Glucose 110 H Calcium 8.7 C-Reactive Protein 0.11 Procedures Date of Service Date of Service: 06/19/22 Progress Note: A&P Assessment and plan (1) Crohn disease: Status: Acute Assessment and Plan: Imp: Her Crohn's flare seems to be improving after the initiation of the course of steroids, as well as the recent Entyvio infusion last week. Her abdominal exam is presently benign and her labs from this AM all look good. She seems to be tolerating her diet. Rec: Continue current plan. I think the patient can be discharged tomorrow if things remain stable. We reviewed the plan of continuing her usual outpatient medical regimen, including the Entyvio infusions. I sent a Rx for the prednisone taper to her pharmacy. She will be seen in the office for follow, but I did advise her to call sooner as needed. She was comfortable with this plan. Thanks. Time Spent With Patient Time: Total time spent is greater than 50% in coordination of care (as documented) at patient's floor/unit and/or counseling patient: Quality Stroke Does the patient have a stroke diagnosis?: No VTE Prior VTE?: No VTE Risk Level:: Medical - moderate - high VTE Device Contraindication: Treatment Not Indicated VTE Drug Contraindication: N/A - Med Ordered
[2022-06-19 19:01] VITALS: BP 149/68; PULSE 46; RESP 16; TEMP 36.6; O2SAT 97
[2022-06-19] MEDS: Zolpidem Tartrate 5 MG TABLET PO (20:22)
[2022-06-19 23:28] VITALS: BP 138/78; PULSE 50; RESP 16; TEMP 36.3; O2SAT 95
[2022-06-20 03:12] VITALS: BP 130/75; PULSE 45; RESP 16; TEMP 36.6; O2SAT 96
[2022-06-20] MEDS: oxyCODONE HCl Immed Release 5 MG TABLET PO ×2 (04:18→10:13)
--- NOTE | 2022-06-20 07:03 | P.DS_ITS ---
DS: Providers Provider Date of Service: 06/20/22 Date of admission: 06/15/22 02:01 Primary care physician: Jaswant Frank MD Consults: 06/15/22 05:32 Consult to Gastroenterology Routine Consulting Provider: Matthew Alexis Reason for consultation: Crohns flare Has provider been notified: Yes 06/16/22 07:36 Consult to Psychiatry Routine Consulting Provider: Psych Covering Reason for consultation: severe anxiety Has provider been notified: No DS: Diagnosis Discharge Diagnosis (1) Crohn disease: Status: Acute DS: Summary Hospital Course Hospital Course: 46-year-old female with past medical history of Crohn's disease, depression anxiety, who presents to the hospital with complaints of abdominal pain, nausea vomiting as well as diarrhea for the past 1 week.? Patient reports that she has 5 or more episodes of diarrhea, has had on and off vomiting for the 1 week.? She was scheduled to receive Entyvio later in the week therefore she waited to get her infusion to see if she will feel better, but after receiving? Entyvio she reports that her head symptoms persisted and somewhat worsened, she called Dr. Alexis (GI) and was advised to come to ED due to intractable, persistent symptom s. On arrival to the ED patient hemodynamically stable with no significant abnormal vitals Labs unremarkable Abdominal pelvic CT showed decreased wall thickening of the terminal ileum, no acute abnormality. Hospital course: patient came to the hospital because of Crohn disease flare: Started on IV steroids and stool studies done including C diff -seems negative. With IV steroid and supportive care patient seems to improved significantly, tolerating diet- going home with p.o. prednisone taper. Further management of Crohn disease out patiently, patient is to follow up with GI Dr. Alexis outpatient. Patient also has anxiety component: Seen by psych- Recommended further adjustment of her psych medication out patiently. Above management discussed with the patient in detail length she understand and in agreement with the above plan, time spent 50 minutes and 50% time spent on counseling. Significant findings: As above. Procedures performed: None. Treatment and response: As above. Complications: None. Time Spent with Patient Time attestation: Total time spent providing and/or coordinating discharge services: Discharge coordination time: Greater than 30 minutes Quality: Safe Use of Opioids Does Pt have an Active Cancer Diagnosis on the Problem List?: No Quality: Stroke Does the patient have a stroke diagnosis?: No Physical Exam Vital Signs: Vital Signs: Last Vital Signs Temp 97.8 F 06/20/22 03:12 Pulse 45 L 06/20/22 03:12 Resp 16 06/20/22 03:12 BP 130/75 06/20/22 03:12 Pulse Ox 96 06/20/22 03:12 O2 Del Method 06/20/22 03:12 BMI result Body Mass Index 32.9 Const: Other: General: AO X 3, no acute distress Resp: CTA bilateral CVS: S1,S2,RRR GI: +BS, NT, no distention Skin: No rash Neuro: motor grossly intact Psych: appropriate affect DS: Data Data Completed and Pending Labs on day of discharge: Laboratory Results - last 24 hr 06/19/22 06:12 ESR 5 Discharge Plan Discharge Anticipated Discharge Date/Time: 06/19/22 11:34 Patient Disposition: Home, Self-Care Discharge Diagnosis: crohn disease flare Referrals: Jaswant Frank MD [Primary Care Provider] - 1 Week Discharge Medications: New prednisone 10 mg tablet See Rx Instructions .ROUTE .COMPLEX Qty: 120 0RF Rx Instructions: 40 mg by mouth daily for 6 days, then switch to 35 mg p.o. prednisone for 1 week, then 30 mg po for 1 week,then 25mg po for 1 week,then 20 mg po for1 week,then 15 mg po for 1 week,then 10 mg po 1 week,then 5 mg po 1 week.follow up with GI. Continued escitalopram oxalate 10 mg tablet 10 mg PO DAILY 30 Days Qty: 30 2RF tramadol 50 mg tablet 50 mg PO TID PRN (Reason: pain) 30 Days Qty: 90 0RF ondansetron 4 mg tablet,disintegrating 4 mg PO Q8H PRN (Reason: nausea and vomiting) Qty: 20 0RF zolpidem 12.5 mg tablet,ext release multiphase 12.5 mg PO BEDTIME 30 Days Qty: 30 1RF acetaminophen 325 mg Tablet 650 mg PO Q8H PRN (Reason: Pain, Mild (Pain Scale 1-3)) 30 Days 0RF mesalamine 500 mg capsule, extended release 2 cap PO QID clonidine HCl 0.1 mg tablet 1 tab PO BID clonidine HCl 0.1 mg tablet 0.1 mg PO DAILY PRN (Reason: anxiety) lorazepam [Ativan] 1 mg tablet 1 mg PO BID Rx Instructions: Take 1 tablet ONE to TWO TIMES A DAY ONLY NEEDED for increased anxiety; budesonide 3 mg capsule,delayed,extend.release 3 cap PO DAILY Mirena 20 mcg/24 hours (6 yrs) 52 mg intrauterine device 1 device intrauterine ONCE cholestyramine (with sugar) 4 gram powder 1 ea PO TID PRN (Reason: gi upset) omeprazole 20 mg capsule,delayed release(DR/EC) 20 mg PO DAILY diphenoxylate-atropine 2.5-0.025 mg tablet 1 - 2 tab PO Q6H PRN (Reason: Diarrhea) Excedrin Extra Strength 250-250-65 mg tablet 1 tab PO Q4-6H PRN (Reason: Insomnia) Entyvio 300 mg recon soln 300 mg IV .Q6-8W Rx Instructions: administer over 30 mins Discharge Orders: Discharge Order (Routine); Ordered 06/20/22 Ordered By: Barrera Gaona Diet: Advance to usual diet Activity on Discharge: As tolerated Stand Alone Forms: Patient Portal Discharge page Care Plan Goals: patient came to the hospital because of Crohn disease flare: Started on IV steroids and stool studies done including C diff -seems negative. With IV steroid and supportive care patient seems to improved significantly, tolerating diet- going home with p.o. prednisone taper. Further management of Crohn disease out patiently, patient is to follow up with GI Dr. Alexis outpatient. Patient also has anxiety component: Seen by psych- Recommended further adjustment of her psych medication out patiently. Health Concerns: If patient condition worsen -significant abdominal pain or fever or any new symptoms- patient should go to nearest emergency room for evaluation. Plan of Treatment: Complete prednisone taper. Follow up with GI- for further management of Crohn disease outpatient. Assessment: As above.
[2022-06-20 07:53] VITALS: BP 142/69; PULSE 51; RESP 20; TEMP 36.6; O2SAT 95
[2022-06-20] MEDS: cloNIDine HCL 0.1 MG TABLET PO (08:05)
[2022-06-20] MEDS: Omeprazole 20 MG CAPSULE.DR PO (08:06)
[2022-06-20] MEDS: LORazepam 1 MG TABLET PO (08:06)
[2022-06-20] MEDS: Dicyclomine HCl 10 MG CAPSULE 20 MG PO (08:06)
[2022-06-20] MEDS: Mesalamine 250 MG CAPSULE.ER 1000 MG PO (08:06)
[2022-06-20] MEDS: 0.9 % Sodium Chloride Flush 3 ML SYRINGE IVFLUSH (08:07)
[2022-06-20] MEDS: Escitalopram Oxalate 10 MG TABLET PO (08:10)
[2022-06-20] MEDS: predniSONE 20 MG TABLET 40 MG PO (08:15)
[2022-06-20] MEDS: ondansetron HCL 4 MG/2 ML VIAL IVPUSH (10:14)
== END 2022-06-20 11:49 | disposition home or self-care (01) | DRG 387 ==
LOC: HO.ED 06-15 01:53 → HO.EDOVER 06-15 02:15 → HO.S3 06-15 16:00
PROVIDERS: Internal Medicine; Admitting Provider Internal Medicine; Emergency Provider Internal Medicine; PCP Internal Medicine; Visit Provider Internal Medicine
DX: K50.00 Crohn's disease of small intestine without complications (principal); G43.909 Migraine, unspecified, not intractable, without status migrainosus; E66.9 Obesity, unspecified; Z87.891 Personal history of nicotine dependence; Z91.040 Latex allergy status; Z91.013 Allergy to seafood; Z88.8 Allergy status to other drugs, medicaments and biological substances; Z79.899 Other long term (current) drug therapy
CPT/HCPCS: 36415; 74176; 74177; 80048; 80053; 81001; 85025; 85652; 86140; 87493; 87507; 87635; 89055; 96360; 96361; 96365; 96374; 96375; 96376; 99285; J1170; J1200; J2270; J2405; J2550; J2920; J2930; J3380; Q9967

== ENCOUNTER → 2022-07-17 10:52 | Outpatient (BNVA) | payer MEDICARE, SELFPAY | PROVIDERS: PCP Internal Medicine; Visit Provider Nurse Practitioner Family | DX: G47.00 Insomnia, unspecified (principal); F41.9 Anxiety disorder, unspecified | CPT/HCPCS: 99212 ==

== ENCOUNTER 2022-08-08 11:41 | Outpatient (REF) | payer OTHER, SELFPAY ==
[2022-08-08 11:58] LABS: MANUAL DIFF FLAG NO
[2022-08-08 13:14] LABS: Basophils Absolute Auto 0.1 X10*3/uL (0.0-0.2); Basophils Percent Auto 0.6 % (0-2); Eosinophils Absolute Auto 0.2 X10*3/uL (0.0-0.4); Eosinophils Percent Auto 1.2 % (0-4); Hematocrit 47.5 % (37.0-47.0); Imm Gran Pct Auto 1.6 % (0.0-0.4); Lymphocytes Absolute Auto 1.1 X10*3/uL (1.2-4.9); Lymphocytes Percent Auto 8.9 % (20-40); Mean Corpuscular HGB Conc 31.6 g/dl (31.0-35.0); Mean Corpuscular Hemoglobin 30.2 pg (27.0-33.0); Mean Corpuscular Volume 95.6 fL (80.0-98.0); Mean Platelet Volume 10.3 fL (9.4-12.3); Monocytes Absolute Auto 0.7 X10*3/uL (0.1-1.2); Monocytes Percent Auto 5.4 % (2-11); Neutrophils Absolute Auto 10.3 x10*3/uL (2.0-8.3); Neutrophils Percent Auto 82.3 % (45-73); Platelet Count 295 X10*3/uL (160-400); Red Blood Count 4.97 X10*6/uL (4.20-5.50); Red Cell Distribution Width 14.8 % (11.0-16.0); White Blood Count 12.5 X10*3/uL (4.8-10.8)
[2022-08-08 13:40] LABS: Alanine Aminotransferase 13 U/L (0-31); Albumin Level 3.8 g/dL (3.5-5.0); Alkaline Phosphatase 83 U/L (39-117); Aspartate Amino Transferase 12 U/L (5-31); Bilirubin Direct < 0.2 mg/dL (0.0-0.5); Bilirubin Total 0.3 mg/dL (0.0-1.0); C Reactive Protein 0.86 mg/dL (< or = 0.50); Iron 98 mcg/dL (30-160); Percent Iron Saturation 31 % (15-50); Total Iron Binding Capacity 321 mcg/dL (228-428); Total Protein 6.7 g/dL (6.5-8.0); Unsaturated Iron Binding 223 ug/dL
[2022-08-08 13:57] LABS: Ferritin 30 ng/mL (10-250)
[2022-08-08 13:58] LABS: Erythrocyte Sedimentation Rate 16 MM/HR (0-20)
[2022-08-08 14:16] LABS: Vitamin B12 376 pg/mL (200-900)
== END 2022-08-08 11:42 | disposition home or self-care (01) ==
LOC: HO.LAB 11:41
PROVIDERS: PCP Internal Medicine; Visit Provider Internal Medicine
DX: K50.819 Crohn's disease of both small and large intestine with unspecified complications (principal); Z79.899 Other long term (current) drug therapy
CPT/HCPCS: 36415; 80076; 80280; 82542; 82607; 82728; 82746; 83540; 85025; 85652; 86140

== ENCOUNTER 2022-08-09 09:54 | Outpatient (REF) | payer OTHER, SELFPAY | END 2022-08-09 09:55 | disposition home or self-care (01) | LOC: HO.MDS 09:54 | PROVIDERS: Visit Provider Internal Medicine | DX: K50.90 Crohn's disease, unspecified, without complications (principal) | CPT/HCPCS: 96365; 96375; J1200; J3380 ==

== ENCOUNTER 2022-09-27 09:48 | Outpatient (REF) | payer OTHER, SELFPAY | END 2022-09-27 09:49 | disposition home or self-care (01) | LOC: HO.MDS 09:48 | PROVIDERS: Visit Provider Internal Medicine | DX: K50.90 Crohn's disease, unspecified, without complications (principal) | CPT/HCPCS: 96365; J1200; J3380; Q0163 ==

== ENCOUNTER → 2022-10-16 08:53 | Outpatient (BNVA) | payer OTHER, SELFPAY | PROVIDERS: PCP Internal Medicine; Visit Provider Nurse Practitioner Family | DX: G47.00 Insomnia, unspecified (principal); F41.9 Anxiety disorder, unspecified | CPT/HCPCS: 99212 ==

== ENCOUNTER 2022-10-25 09:51 | Outpatient (REF) | payer OTHER, SELFPAY | END 2022-10-25 09:52 | disposition home or self-care (01) | LOC: HO.MDS 09:51 | PROVIDERS: Visit Provider Internal Medicine | DX: K50.90 Crohn's disease, unspecified, without complications (principal) | CPT/HCPCS: 96365; J1200; J2405; J3380 ==

== ENCOUNTER 2022-11-22 10:03 | Outpatient (REF) | payer OTHER, SELFPAY | END 2022-11-22 10:04 | disposition home or self-care (01) | LOC: HO.MDS 10:03 | PROVIDERS: Visit Provider Internal Medicine | DX: K50.90 Crohn's disease, unspecified, without complications (principal) | CPT/HCPCS: 96365; 96375; J1200; J2405; J3380 ==

== ENCOUNTER 2022-11-23 11:45 | Emergency (ER) | payer OTHER, SELFPAY ==
--- NOTE | ~2022-11-23 | CT_ITS ---
EXAMINATION: CT ABDOMEN AND PELVIS WITH CONTRAST CLINICAL INFORMATION: Left lower quadrant pain. History of Crohn's disease. COMPARISON: 06/15/2022 TECHNIQUE: Multidetector volumetric images were obtained from the superior aspect of the liver through the pubic symphysis following administration 85 mL of Omnipaque 350 intravenous contrast. Sagittal and coronal reformatted images were obtained on the technologist's workstation. Oral contrast: No This CT examination was performed using dose optimization techniques as appropriate, variously including the following: *Automated exposure control *Adjustment of mA and/or kV according to patient size (this includes techniques or standardized protocols for targeted exams where dose is matched to indication/reason for exam; i.e. extremities or head) *Use of iterative reconstruction technique DLP: 1181 mGy-cm FINDINGS: LUNG BASES: The visualized lung bases are unremarkable. LIVER, GALLBLADDER, AND BILIARY TREE: The liver is normal in size, shape, and attenuation. No focal hepatic lesion or biliary ductal dilatation is present. The gallbladder is unremarkable with no evidence of radiopaque gallstones, gallbladder wall thickening, or obvious pericholecystic inflammatory changes. PANCREAS: Unremarkable. SPLEEN: Unremarkable. ADRENAL GLANDS: Normal right adrenal gland. 1.2 cm left adrenal nodule. This is indeterminate by Hounsfield unit criteria on this study. Prior imaging suggests that this is a lipid rich adenoma. KIDNEYS AND URETERS: The kidneys are normal in size, shape, and attenuation. No hydronephrosis, hydroureter, or calculi seen. No perinephric stranding. BLADDER: Unremarkable. GASTROINTESTINAL TRACT: The stomach is unremarkable. The small bowel is normal in caliber. Wall thickening seen at the distal ileum extending to the terminal ileum small bowel. This could be chronic wall thickening as there is no significant adjacent inflammation and there is similar appearance on prior. There is colonic diverticulosis present. Wall thickening with adjacent inflammation at the proximal sigmoid/distal descending colon, consistent with acute diverticulitis. No free air or fluid collection. ABDOMINAL WALL: Fat-containing umbilical hernia. LYMPH NODES: Normal. VASCULAR: Unremarkable. PELVIC VISCERA: Anteverted uterus with IUD in place. No adnexal mass. OSSEOUS STRUCTURES: No acute or suspicious osseous abnormality. Mild degenerative changes throughout the spine. Partially visualized hardware in the proximal left femur with associated lucent lesions again noted. CT/CT abdomen pelvis w IV con IMPRESSION: Acute diverticulitis at the proximal sigmoid/distal descending colon. No free air or fluid collection. Wall thickening of the distal/terminal ileum. This could be chronic in nature associated with the history of Crohn's disease. Fleischner guidelines were followed.
[2022-11-23 12:27] VITALS: BP 146/75; PULSE 93; RESP 20; TEMP 36.7; O2SAT 98; BMI 32.9
--- NOTE | 2022-11-23 12:28 | ED.ABDPAIN ---
HPI - Abdominal Pain General Chief Complaint: Abdominal Pain <Gauri Gonzalez CNP - Last Filed: 11/23/22 12:34> Stated Complaint: abd pain <Gauri Gonzalez CNP - Last Filed: 11/23/22 12:34> Time Seen by Provider: 11/23/22 12:54 <Gauri Gonzalez CNP - Last Filed: 11/23/22 12:34> Source: patient <MITZY Ortiz - Last Filed: 11/23/22 15:54> Mode of arrival: ambulatory <MITZY Ortiz Last Filed: 11/23/22 15:54> Limitations: no limitations <MITZY Ortiz Last Filed: 11/23/22 15:54> History of Present Illness HPI narrative: Patient is a 47 year old assigned female at with a history of Crohn's presenting to the emergency department today with abdominal pain. Patient states that over the last 2 days she has had left lower quadrant abdominal pain. Patient denies any dizziness, lightheadedness, nausea, vomiting, fever, chills, blurry vision, double vision, loss of vision, chest pain, difficulty breathing, shortness of breath, back pain, night sweats, pain with urination, increased urinary frequency, increased urinary urgency, blood in her urine or stool, syncope or a near syncopal episode, recent trauma or falls, bowel incontinence, bladder incontinence, bowel retention, bladder retention, or any other complaints at this time. <MITZY Ortiz - Last Filed: 11/23/22 15:54> MD elicited complaint: abdominal pain <MITZY Ortiz Last Filed: 11/23/22 15:54> Pertinent past history: other (Crohn's) <MITZY Ortiz Last Filed: 11/23/22 15:54> Onset (ago): day(s) (2) <MITZY Ortiz - Last Filed: 11/23/22 15:54> Pain Consistency: constant <MITZY Ortiz Last Filed: 11/23/22 15:54> Location: LLQ <MITZY Ortiz Last Filed: 11/23/22 15:54> Severity: moderate <MITZY Ortiz Last Filed: 11/23/22 15:54> Pain scale (0-10): 5 <MITZY Ortiz - Last Filed: 11/23/22 15:54> Quality: aching and dull <MITZY Ortiz - Last Filed: 11/23/22 15:54> Radiation: LLQ <MITZY Ortiz - Last Filed: 11/23/22 15:54> Migration to: no migration <MITZY Ortiz - Last Filed: 11/23/22 15:54> Exacerbating factors: nothing <MITZY Ortiz - Last Filed: 11/23/22 15:54> Relieving factors: nothing <MITZY Ortiz - Last Filed: 11/23/22 15:54> Associated symptoms: denies other symptoms <MITZY Ortiz - Last Filed: 11/23/22 15:54> Related Data Home Medications: Home Medications Medication Instructions Recorded Confirmed levonorgestrel 20 mcg/24 hours (8 1 device intrauterine ONCE 10/04/20 11/14/22 yrs) 52 mg intrauterine device (Mirena) omeprazole 20 mg capsule,delayed 20 mg PO DAILY 12/05/20 11/14/22 release cholestyramine (with sugar) 4 gram 1 ea PO TID PRN gi upset 10/09/21 11/14/22 oral powder hipoaje-ynccevdvejawp-oxauacsl 250 1 tab PO Q4-6H PRN Insomnia 02/05/22 11/14/22 mg-250 mg-65 mg tablet (Excedrin Extra Strength) diphenoxylate-atropine 2.5 1 - 2 tab PO Q6H PRN Diarrhea 05/04/22 11/14/22 mg-0.025 mg tablet dicyclomine 10 mg capsule 10 mg PO 07/17/22 11/14/22 vedolizumab 300 mg intravenous 300 mg IV Q4W 10/16/22 11/14/22 solution (Entyvio) budesonide 3 mg 9 mg PO DAILY 11/14/22 11/14/22 capsule,delayed,extended release mesalamine 500 mg capsule,extended 500 mg PO QID 11/14/22 11/14/22 release Previous Rx's Medication Instructions Recorded acetaminophen 325 mg tablet 650 mg PO Q8H PRN Pain, Mild (Pain 04/29/21 Scale 1-3) 30 days ondansetron 4 mg disintegrating 4 mg PO Q8H PRN nausea and 06/05/22 tablet vomiting #20 tabs zolpidem 12.5 mg tablet,extended 12.5 mg PO BEDTIME 30 days #30 tabs 10/15/22 release,multiphase clonidine HCl 0.1 mg tablet 0.1 mg PO TID PRN for anxiety #90 11/05/22 tabs escitalopram oxalate 10 mg tablet 10 mg PO DAILY 30 days #30 tabs 11/05/22 lorazepam 1 mg tablet (Ativan) 1 mg PO BID anxiety 30 days #60 11/06/22 tabs tramadol 50 mg tablet 50 mg PO TID PRN pain 30 days #90 11/06/22 tabs amoxicillin 875 mg-potassium 1 tab PO BID 7 days #14 tabs 11/23/22 clavulanate 125 mg tablet <Gauri Gonzalez CNP - Last Filed: 11/23/22 12:34> Allergies/Adverse Reactions: Allergies Allergy/AdvReac Type Severity Reaction Status Date / Time meperidine [From Demerol] Allergy Severe SWELLING,RASH,THROAT Verified 11/14/22 13:03 CLOSES latex [LATEX] Allergy Mild RASH Verified 11/14/22 13:03 codeine [Codeine] AdvReac Intermediate NAUSEA/VOMITING, Verified 11/14/22 13:03 GI upset/vomiting Fish Containing Products AdvReac Unknown NAUSEA/VOMI Verified 11/14/22 13:03 [Fish Product Derivatives] TING trazodone AdvReac Intermediate worsening Uncoded 11/14/22 13:03 anxiety symptoms <Gauri Gonzalez CNP - Last Filed: 11/23/22 12:34> Review of Systems Constitutional: Reports no additional constitutional complaints, Denies chills, Denies fever(s) and Denies night sweats <MITZY Ortiz - Last Filed: 11/23/22 15:54> Eyes: Reports no additional eye complaints, Denies blurry vision, Denies change in vision, Denies diplopia, Denies eye discharge, Denies loss of vision and Denies eye pain <MITZY Ortiz - Last Filed: 11/23/22 15:54> Denies dizziness <MITZY Ortiz - Last Filed: 11/23/22 15:54> Cardiovascular: Reports no additional cardiovascular complaints, Denies chest pain, Denies lightheadedness, Denies Loss of Consciousness and Denies dyspnea <MITZY Ortiz - Last Filed: 11/23/22 15:54> Respiratory: Reports no additional respiratory complaints and Denies dyspnea <MITZY Ortiz - Last Filed: 11/23/22 15:54> Gastrointestinal: Reports no additional gastrointestinal complaints, Reports abdominal pain (LLQ), Denies melena, Denies hematochezia, Denies change in bowel habits and Denies change in stool character <MITZY Ortiz - Last Filed: 11/23/22 15:54> Genitourinary: Denies hematuria, Denies urinary frequency, Denies dysuria, Denies urinary incontinence, Denies urinary hesitancy and Denies urinary urgency <MITZY Ortiz - Last Filed: 11/23/22 15:54> Musculoskeletal: Reports no additional musculoskeletal complaints, Denies numbness and Denies tingling <MITZY Ortiz - Last Filed: 11/23/22 15:54> Denies dizziness, Denies loss of vision, Denies numbness and Denies tingling <MITZY Ortiz - Last Filed: 11/23/22 15:54> Psychiatric: Reports no additional psychiatric complaints <MIZTY Ortiz - Last Filed: 11/23/22 15:54> Endocrine: Reports no additional endocrine complaints <MITZY Ortiz - Last Filed: 11/23/22 15:54> Hematologic/Lymphatic: Reports no additional hematologic/lymphatic complaints <MITZY Ortiz - Last Filed: 11/23/22 15:54> Allergic/Immunologic: Reports no additional allergic/immunologic complaints <MITZY Ortiz - Last Filed: 11/23/22 15:54> PMFSH Past Medical History Attestation statement: The following information was validated with the patient. 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 History of renal cell cancer (~2014) Insomnia Intractable nausea and vomiting Lumbar degenerative disc disease Migraine Obesity (BMI 30-39.9) Osteoarthritis of hips, bilateral <Gauri Gonzalez CNP - Last Filed: 11/23/22 12:34> Surgical History: Surgical History History of arthroplasty (~01/2012) History of cryosurgery (~04/20/15) History of esophagogastroduodenoscopy (EGD) History of intestinal surgery History of removal of calculus of renal pelvis through percutaneous nephrostomy (~10/2015) Hx of colonoscopy <Gauri Gonzalez CNP - Last Filed: 11/23/22 12:34> Family History Family History: Family History Father Crohn disease Migraine Cancer Mother HTN (hypertension) Vertigo Cervical cancer Maternal Grandmother HTN (hypertension) Hyperlipidemia Diabetes mellitus Paternal Grandmother Diabetes mellitus Other Mental health problem <Gauri Gonzalez CNP - Last Filed: 11/23/22 12:34> Social History Social History: Social History Household Members: Significant Other and Children Housing: House Do you presently have visiting nurse or other home services: No Alcohol intake: current Alcohol intake frequency: holidays/special occasions only Patient Tobacco Use Status: Former Tobacco user Tobacco use type: Cigarette e-Cigarette/Vaping Use: Former Use Second Hand Smoke Exposure: No Advance Directives: No Patient : No service: No Current occupational status: unemployed Gender identity: Female Cognitive needs: No Hearing needs: No Vision needs: Yes (glasses) <Gauri Gonzalez CNP - Last Filed: 11/23/22 12:34> Physical Exam ED Vital Signs: Vital Signs - 24 hr 11/23/22 12:27 11/23/22 14:23 Temperature 98.1 F Pulse Rate 93 85 Respiratory Rate 20 14 Blood Pressure 146/75 H 141/70 H Pulse Oximetry 98 100 Oxygen Delivery Method Room Air BMI result Body Mass Index 32.9 <Gauri Gonzalez CNP - Last Filed: 11/23/22 12:34> Vital Signs - 24 hr 11/23/22 12:27 11/23/22 14:23 Temperature 98.1 F Pulse Rate 93 85 Respiratory Rate 20 14 Blood Pressure 146/75 H 141/70 H Pulse Oximetry 98 100 Oxygen Delivery Method Room Air BMI result Body Mass Index 32.9 <MITZY Ortiz - Last Filed: 11/23/22 15:54> Const General: cooperative, no acute distress, alert and awake <MITZY Ortiz - Last Filed: 11/23/22 15:54> Nutritional Appearance: well nourished <MITZY Ortiz - Last Filed: 11/23/22 15:54> Orientation/consciousness: patient oriented x3 <MITZY Ortiz - Last Filed: 11/23/22 15:54> Limitations: no limitations <MITZY Ortiz - Last Filed: 11/23/22 15:54> HENMT Head: Yes normal to inspection and Yes atraumatic <MITZY Ortiz - Last Filed: 11/23/22 15:54> Ears: hearing grossly normal bilaterally and external ears normal <MITZY Ortiz - Last Filed: 11/23/22 15:54> General nose exam: Normal external nose present, no nasal discharge noted and no epistaxis <MITZY Ortiz - Last Filed: 11/23/22 15:54> Face and sinus: Yes normal facial exam, No abrasion and No laceration <MITZY Ortiz - Last Filed: 11/23/22 15:54> Mouth: Normal oral and palatal mucosa present, no drooling and no muffled voice <MITZY Ortiz - Last Filed: 11/23/22 15:54> Eyes General: appearance normal, both eyes and all related structures <MITZY Ortiz - Last Filed: 11/23/22 15:54> Periorbital: periorbital findings normal <MITZY Ortiz - Last Filed: 11/23/22 15:54> Eyelids: Yes eyelids normal <MITZY Ortiz - Last Filed: 11/23/22 15:54> Conjunctivae: conjunctivae normal <Karen Araiza PA - Last Filed: 11/23/22 15:54> Pupils: Equal, round and reactive pupils present <Karen Araiza PA - Last Filed: 11/23/22 15:54> EOM: EOMs intact bilaterally <Karen Araiza DC - Last Filed: 11/23/22 15:54> Neck Neck: Yes normal visual inspection, Yes full ROM and Yes no lymphadenopathy <Karen Araiza DC - Last Filed: 11/23/22 15:54> Chest Chest palpation & inspection: normal inspection of the chest <Karen Araiza DC - Last Filed: 11/23/22 15:54> Resp Effort & Inspection: normal respiratory effort and able to speak in complete sentences <Karen Araiza DC - Last Filed: 11/23/22 15:54> Auscultation: clear to auscultation bilaterally <Karen Araiza DC - Last Filed: 11/23/22 15:54> Cardio Rate: regular rate <Karen Araiza DC - Last Filed: 11/23/22 15:54> Rhythm: regular rhythm <Karen Araiza DC - Last Filed: 11/23/22 15:54> GI Inspection: Yes normal to inspection <Karen Araiza DC - Last Filed: 11/23/22 15:54> Palpation (GI): Soft to palpation, not firm, nontender, no guarding and not rigid <Karen Hernandezcorina DC - Last Filed: 11/23/22 15:54> Neuro General: patient oriented x3 and moves all extremities <Karen Araiza PA - Last Filed: 11/23/22 15:54> Cranial nerves: Yes Equal, round and reactive pupils present <Karen Hernandezcorina PA - Last Filed: 11/23/22 15:54> Cognition (Neuro): normal cognition <Karen Hernandezcorina PA - Last Filed: 11/23/22 15:54> Motor exam (neuro): 5/5 motor strength present throughout <Karen Hernandezcorina PA - Last Filed: 11/23/22 15:54> Sensory Exam: Normal double simultaneous stimulation for sensation <Karen Hernandezming, PA - Last Filed: 11/23/22 15:54> Coordination: [id number]-[id number]-dwwp test normal <MITZY Ortiz - Last Filed: 11/23/22 15:54> Extrem General: Yes normal to inspection, Yes full ROM and Yes capillary refill normal <MITZY Ortiz - Last Filed: 11/23/22 15:54> Psych Appearance: grossly normal <MITZY Ortiz - Last Filed: 11/23/22 15:54> Mental Status: mental status grossly normal <MITZY Ortiz - Last Filed: 11/23/22 15:54> Affect: normal affect <MITZY Ortiz - Last Filed: 11/23/22 15:54> Attitude: cooperative <MITZY Ortiz - Last Filed: 11/23/22 15:54> Thought process: Normal thought process present <MITZY Ortiz - Last Filed: 11/23/22 15:54> Thought content: Normal thought content present <MITZY Ortiz - Last Filed: 11/23/22 15:54> Insight: Good insight present (Psych) <MITZY Ortiz - Last Filed: 11/23/22 15:54> Course Course Course Narrative: This is an RME: Additional HPI, ROS, PE not included below will be deferred to primary provider. Patient is a 47-year-old female who presents emergency department for abdominal pain. Pain localized to left lower quadrant, onset was a few days ago. Reports a history of Crohn's, followed by Dr. Alexis, was advised to come to the emergency department. Reports bloody stools and mucous. Denies any history of abdominal surgeries. Plan: Labs, CT ABD/pelvis, ODT Zofran for nausea, will require CT ABD/pelvis, 1L normal saline IVF ordered. <Gauri Gonzalez CNP - Last Filed: 11/23/22 12:34> Medical Decision Making Medical Decision Making MDM Narrative: Patient is a 47 year old assigned female at with a history of Crohn's presenting to the emergency department today with left lower quadrant abdominal pain. Patient's physical exam was unremarkable. Patient's blood work was unremarkable. Patient's urine showed no acute process. Patient's abdominal CT showed diverticulitis. I explained my physical exam findings as well as all test results to the patient. I answered all questions asked by the patient. Patient received IV Dilaudid which she stated helped her pain significantly. I stressed the importance of the patient taking her medication as prescribed. I stressed the importance of the patient following up with her primary care provider. I stressed the importance of the patient returning to the emergency department immediately if her symptoms were to worsen or if she were to develop any dizziness, shortness of breath, difficulty breathing, chest pain, blurry vision, loss of vision, nausea, vomiting, abdominal pain, fever, chills, back pain, or any other complaints. Patient verbalized agreement and understanding with this treatment plan and discharge. <MITZY Ortiz - Last Filed: 11/23/22 15:54> Differential Diagnosis Differential Diagnoses: The differential diagnosis associated with the presentation includes <MITZY Ortiz - Last Filed: 11/23/22 15:54> Abdominal pain, diverticulitis, colitis, Crohn's flare <MITZY Ortiz - Last Filed: 11/23/22 15:54> Lab Data MDM Lab Attestation statement: I reviewed the patient's lab results. <MITZY Ortiz - Last Filed: 11/23/22 15:54> Result Diagrams: 11/23/22 12:48 11/23/22 12:48 <Gauri Gonzalez CNP - Last Filed: 11/23/22 12:34> Labs: Lab Results 11/23/22 11/23/22 11/23/22 Range/Units 12:48 12:48 13:10 WBC 10.2 (4.8-10.8) X10*3/uL RBC 4.70 (4.20-5.50) X10*6/uL Hgb 14.4 (12.0-16.0) g/dl Hct 43.5 (37.0-47.0) % MCV 92.6 (80.0-98.0) fL MCH 30.6 (27.0-33.0) pg MCHC 33.1 (31.0-35.0) g/dl RDW 13.9 (11.0-16.0) % Plt Count 285 (160-400) X10*3/uL MPV 9.5 (9.4-12.3) fL Immature Gran % (Auto) 0.5 H (0.0-0.4) % Neut % (Auto) 74.2 H (45-73) % Lymph % (Auto) 15.7 L (20-40) % [place]ock % (Auto) 8.0 (2-11) % Eos % (Auto) 1.3 (0-4) % Baso % (Auto) 0.3 (0-2) % Lymph # (Auto) 1.6 (1.2-4.9) X10*3/uL [place] # (Auto) 0.8 (0.1-1.2) X10*3/uL Eos # (Auto) 0.1 (0.0-0.4) X10*3/uL Baso # (Auto) 0.0 (0.0-0.2) X10*3/uL Abs Immat Gran (auto) 0.05 H (0.00-0.03) X10*3/uL Absolute Neuts (auto) 7.6 (2.0-8.3) x10*3/uL Absolute Nucleated RBC 0.000 (0.0-0.012) X10*3/uL Nucleated RBC % (auto) 0.0 (0.0-0.2) /100WBC Sodium 140 (135-145) mmol/L Potassium 3.9 (3.3-5.1) mmol/L Chloride 107 (96-108) mmol/L Carbon Dioxide 23 (22-29) mmol/L Anion Gap 14 (12-20) BUN 11 (9-16) mg/dL Creatinine 0.76 (0.5-1.4) mg/dL Estim Creat Clear Calc 90.5 Estimated GFR > 60 Random Glucose 113 (60-115) mg/dL Calcium 9.6 D (8.4-10.2) mg/dL Total Bilirubin 0.3 (0.0-1.0) mg/dL AST 19 (5-31) U/L ALT 27 (0-31) U/L Alkaline Phosphatase 99 (39-117) U/L Total Protein 6.7 (6.5-8.0) g/dL Albumin 3.8 (3.5-5.0) g/dL Lipase 13 (8-78) U/L Beta HCG, Quant < 2 mIU/mL Urine Color Yellow Urine Appearance Cloudy Urine pH 5.5 (5.0-9.0) Ur Specific [place] 1.020 (1.005-1.025) Urine Protein Negative (Neg-Trace) mg/dL Urine Glucose (UA) Negative (Negative) mg/dL Urine Ketones Negative (Negative) mg/dL Urine Blood Negative (Negative) Urine Nitrite Negative (Negative) Ur Leukocyte Esterase Negative (Negative) Urine Test (NEGATIVE) 11/23/22 Range/Units 13:10 WBC (4.8-10.8) X10*3/uL RBC (4.20-5.50) X10*6/uL Hgb (12.0-16.0) g/dl Hct (37.0-47.0) % MCV (80.0-98.0) fL MCH (27.0-33.0) pg MCHC (31.0-35.0) g/dl RDW (11.0-16.0) % Plt Count (160-400) X10*3/uL MPV (9.4-12.3) fL Immature Gran % (Auto) (0.0-0.4) % Neut % (Auto) (45-73) % Lymph % (Auto) (20-40) % [place]ascock % (Auto) (2-11) % Eos % (Auto) (0-4) % Baso % (Auto) (0-2) % Lymph # (Auto) (1.2-4.9) X10*3/uL [place] # (Auto) (0.1-1.2) X10*3/uL Eos # (Auto) (0.0-0.4) X10*3/uL Baso # (Auto) (0.0-0.2) X10*3/uL Abs Immat Gran (auto) (0.00-0.03) X10*3/uL Absolute Neuts (auto) (2.0-8.3) x10*3/uL Absolute Nucleated RBC (0.0-0.012) X10*3/uL Nucleated RBC % (auto) (0.0-0.2) /100WBC Sodium (135-145) mmol/L Potassium (3.3-5.1) mmol/L Chloride (96-108) mmol/L Carbon Dioxide (22-29) mmol/L Anion Gap (12-20) BUN (9-16) mg/dL Creatinine (0.5-1.4) mg/dL Estim Creat Clear Calc Estimated GFR Random Glucose (60-115) mg/dL Calcium (8.4-10.2) mg/dL Total Bilirubin (0.0-1.0) mg/dL AST (5-31) U/L ALT (0-31) U/L Alkaline Phosphatase (39-117) U/L Total Protein (6.5-8.0) g/dL Albumin (3.5-5.0) g/dL Lipase (8-78) U/L Beta HCG, Quant mIU/mL Urine Color Urine Appearance Urine pH (5.0-9.0) Ur Specific [place] (1.005-1.025) Urine Protein (Neg-Trace) mg/dL Urine Glucose (UA) (Negative) mg/dL Urine Ketones (Negative) mg/dL Urine Blood (Negative) Urine Nitrite (Negative) Ur Leukocyte Esterase (Negative) Urine Test NEGATIVE (NEGATIVE) <Gauri Gonzalez, SYDNI - Last Filed: 11/23/22 12:34> Lab Results 11/23/22 11/23/22 11/23/22 Range/Units 12:48 12:48 13:10 WBC 10.2 (4.8-10.8) X10*3/uL RBC 4.70 (4.20-5.50) X10*6/uL Hgb 14.4 (12.0-16.0) g/dl Hct 43.5 (37.0-47.0) % MCV 92.6 (80.0-98.0) fL MCH 30.6 (27.0-33.0) pg MCHC 33.1 (31.0-35.0) g/dl RDW 13.9 (11.0-16.0) % Plt Count 285 (160-400) X10*3/uL MPV 9.5 (9.4-12.3) fL Immature Gran % (Auto) 0.5 H (0.0-0.4) % Neut % (Auto) 74.2 H (45-73) % Lymph % (Auto) 15.7 L (20-40) % [place] % (Auto) 8.0 (2-11) % Eos % (Auto) 1.3 (0-4) % Baso % (Auto) 0.3 (0-2) % Lymph # (Auto) 1.6 (1.2-4.9) X10*3/uL [place] # (Auto) 0.8 (0.1-1.2) X10*3/uL Eos # (Auto) 0.1 (0.0-0.4) X10*3/uL Baso # (Auto) 0.0 (0.0-0.2) X10*3/uL Abs Immat Gran (auto) 0.05 H (0.00-0.03) X10*3/uL Absolute Neuts (auto) 7.6 (2.0-8.3) x10*3/uL Absolute Nucleated RBC 0.000 (0.0-0.012) X10*3/uL Nucleated RBC % (auto) 0.0 (0.0-0.2) /100WBC Sodium 140 (135-145) mmol/L Potassium 3.9 (3.3-5.1) mmol/L Chloride 107 (96-108) mmol/L Carbon Dioxide 23 (22-29) mmol/L Anion Gap 14 (12-20) BUN 11 (9-16) mg/dL Creatinine 0.76 (0.5-1.4) mg/dL Estim Creat Clear Calc 90.5 Estimated GFR > 60 Random Glucose 113 (60-115) mg/dL Calcium 9.6 D (8.4-10.2) mg/dL Total Bilirubin 0.3 (0.0-1.0) mg/dL AST 19 (5-31) U/L ALT 27 (0-31) U/L Alkaline Phosphatase 99 (39-117) U/L Total Protein 6.7 (6.5-8.0) g/dL Albumin 3.8 (3.5-5.0) g/dL Lipase 13 (8-78) U/L Beta HCG, Quant < 2 mIU/mL Urine Color Yellow Urine Appearance Cloudy Urine pH 5.5 (5.0-9.0) Ur Specific [place] 1.020 (1.005-1.025) Urine Protein Negative (Neg-Trace) mg/dL Urine Glucose (UA) Negative (Negative) mg/dL Urine Ketones Negative (Negative) mg/dL Urine Blood Negative (Negative) Urine Nitrite Negative (Negative) Ur Leukocyte Esterase Negative (Negative) Urine Test (NEGATIVE) 11/23/22 Range/Units 13:10 WBC (4.8-10.8) X10*3/uL RBC (4.20-5.50) X10*6/uL Hgb (12.0-16.0) g/dl Hct (37.0-47.0) % MCV (80.0-98.0) fL MCH (27.0-33.0) pg MCHC (31.0-35.0) g/dl RDW (11.0-16.0) % Plt Count (160-400) X10*3/uL MPV (9.4-12.3) fL Immature Gran % (Auto) (0.0-0.4) % Neut % (Auto) (45-73) % Lymph % (Auto) (20-40) % [place] % (Auto) (2-11) % Eos % (Auto) (0-4) % Baso % (Auto) (0-2) % Lymph # (Auto) (1.2-4.9) X10*3/uL [place] # (Auto) (0.1-1.2) X10*3/uL Eos # (Auto) (0.0-0.4) X10*3/uL Baso # (Auto) (0.0-0.2) X10*3/uL Abs Immat Gran (auto) (0.00-0.03) X10*3/uL Absolute Neuts (auto) (2.0-8.3) x10*3/uL Absolute Nucleated RBC (0.0-0.012) X10*3/uL Nucleated RBC % (auto) (0.0-0.2) /100WBC Sodium (135-145) mmol/L Potassium (3.3-5.1) mmol/L Chloride (96-108) mmol/L Carbon Dioxide (22-29) mmol/L Anion Gap (12-20) BUN (9-16) mg/dL Creatinine (0.5-1.4) mg/dL Estim Creat Clear Calc Estimated GFR Random Glucose (60-115) mg/dL Calcium (8.4-10.2) mg/dL Total Bilirubin (0.0-1.0) mg/dL AST (5-31) U/L ALT (0-31) U/L Alkaline Phosphatase (39-117) U/L Total Protein (6.5-8.0) g/dL Albumin (3.5-5.0) g/dL Lipase (8-78) U/L Beta HCG, Quant mIU/mL Urine Color Urine Appearance Urine pH (5.0-9.0) Ur Specific [place] (1.005-1.025) Urine Protein (Neg-Trace) mg/dL Urine Glucose (UA) (Negative) mg/dL Urine Ketones (Negative) mg/dL Urine Blood (Negative) Urine Nitrite (Negative) Ur Leukocyte Esterase (Negative) Urine Test NEGATIVE (NEGATIVE) <MITZY Ortiz - Last Filed: 11/23/22 15:54> Radiology Impression Discussion of test interpretation with radiology: I have reviewed the radiologist's reading. <MITZY Ortiz - Last Filed: 11/23/22 15:54> Radiologist Impression: My interpretation is in agreement with the radiologist's impression of this imaging study. EXAMINATION: CT ABDOMEN AND PELVIS WITH CONTRAST? CLINICAL INFORMATION: Left lower quadrant pain. History of Crohn's disease.? COMPARISON: 06/15/2022? TECHNIQUE: Multidetector volumetric images were obtained from the superior aspect of the liver through the pubic symphysis following administration 85 mL of Omnipaque 350 intravenous contrast. Sagittal and coronal reformatted images were obtained on the technologist's workstation.? Oral contrast: No This CT examination was performed using dose optimization techniques as appropriate, variously including the following: *Automated exposure control *Adjustment of mA and/or kV according to patient size (this includes techniques or standardized protocols for targeted exams where dose is matched to indication/reason for exam; i.e. extremities or head) *Use of iterative reconstruction technique DLP: 1181 mGy-cm FINDINGS: LUNG BASES: The visualized lung bases are unremarkable.? LIVER, GALLBLADDER, AND BILIARY TREE: The liver is normal in size, shape, and attenuation. No focal hepatic lesion or biliary ductal dilatation is present. The gallbladder is unremarkable with no evidence of radiopaque gallstones, gallbladder wall thickening, or obvious pericholecystic inflammatory changes.? PANCREAS: Unremarkable.? SPLEEN: Unremarkable.? ADRENAL GLANDS: Normal right adrenal gland. 1.2 cm left adrenal nodule. This is indeterminate by Hounsfield unit criteria on this study. 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 KIDNEYS AND URETERS: The kidneys are normal in size, shape, and attenuation. No hydronephrosis, hydroureter, or calculi seen. No perinephric stranding. ? BLADDER: Unremarkable.? GASTROINTESTINAL TRACT: The stomach is unremarkable. The small bowel is normal in caliber. Wall thickening seen at the distal ileum extending to the terminal ileum small bowel. This could be chronic wall thickening as there is no significant adjacent inflammation and there is similar appearance on prior. There is colonic diverticulosis present. Wall thickening with adjacent inflammation at the proximal sigmoid/distal descending colon, consistent with acute diverticulitis. No free air or fluid collection.? ABDOMINAL WALL: Fat-containing umbilical hernia.? LYMPH NODES: Normal. VASCULAR: Unremarkable. PELVIC VISCERA: Anteverted uterus with IUD in place. No adnexal mass.? OSSEOUS STRUCTURES: No acute or suspicious osseous abnormality. Mild degenerative changes throughout the spine. Partially visualized hardware in the proximal left femur with associated lucent lesions again noted.? CT/CT abdomen pelvis w IV con IMPRESSION: Acute diverticulitis at the proximal sigmoid/distal descending colon. No free air or fluid collection. ? Wall thickening of the distal/terminal ileum. This could be chronic in nature associated with the history of Crohn's disease. ? Fleischner guidelines were followed. Dictated By: Tristin Peter MD Signed By: Electronically signed by Tristin Peter MD 11/23/22 1400 <MITZY Ortiz - Last Filed: 11/23/22 15:54> Chronic Conditions Patient?s care impacted by: Other (Crohn's disease) <MITZY Ortiz - Last Filed: 11/23/22 15:54> Medications Administered Discontinued Medications Generic Name Dose Route Start Last Admin Trade Name Freq PRN Reason Stop Dose Admin Amoxicillin/Clavulanate Potassium 875 mg 11/23/22 14:12 11/23/22 14:17 Amoxicillin/Potassium Clav 875 Mg Tablet PO 11/23/22 14:13 875 mg ONCE ONE Administration Hydromorphone HCl 2 mg 11/23/22 14:11 11/23/22 14:16 Hydromorphone Hcl 2 Mg/Ml Vial IVPUSH 11/23/22 14:12 2 mg ONCE ONE Administration Protocol Sodium Chloride 1,000 mls @ 999 mls/hr 11/23/22 12:45 11/23/22 14:21 Ns IV 11/23/22 13:45 Infused .Q1H1M BENJAMIN Infusion Iohexol 85 ml 11/23/22 13:36 11/23/22 13:37 Iohexol 350 Mg/Ml 100 Ml Infus..Btl IV 11/23/22 13:37 85 ml ONCE ONE Administration Ondansetron HCl 4 mg 11/23/22 12:31 11/23/22 12:35 Ondansetron Odt 4 Mg Tab.Rapdis TRANSLINGU 11/23/22 12:32 4 mg ONCE ONE Administration <Gauri Gonzalez, SYDNI - Last Filed: 11/23/22 12:34> Medications Administered Discontinued Medications Generic Name Dose Route Start Last Admin Trade Name Freq PRN Reason Stop Dose Admin Amoxicillin/Clavulanate Potassium 875 mg 11/23/22 14:12 11/23/22 14:17 Amoxicillin/Potassium Clav 875 Mg Tablet PO 11/23/22 14:13 875 mg ONCE ONE Administration Hydromorphone HCl 2 mg 11/23/22 14:11 11/23/22 14:16 Hydromorphone Hcl 2 Mg/Ml Vial IVPUSH 11/23/22 14:12 2 mg ONCE ONE Administration Protocol Sodium Chloride 1,000 mls @ 999 mls/hr 11/23/22 12:45 11/23/22 14:21 Ns IV 11/23/22 13:45 Infused .Q1H1M BENJAMIN Infusion Iohexol 85 ml 11/23/22 13:36 11/23/22 13:37 Iohexol 350 Mg/Ml 100 Ml Infus..Btl IV 11/23/22 13:37 85 ml ONCE ONE Administration Ondansetron HCl 4 mg 11/23/22 12:31 11/23/22 12:35 Ondansetron Odt 4 Mg Tab.Rapdis TRANSLINGU 11/23/22 12:32 4 mg ONCE ONE Administration <MITZY Ortiz - Last Filed: 11/23/22 15:54> Discharge Plan Discharge Clinical Impression: Diverticulitis <Gauri Gonzalez CNP - Last Filed: 11/23/22 12:34> Patient Disposition: Home, Self-Care <Gauri Gonzalez CNP - Last Filed: 11/23/22 12:34> Instructions: Diverticulitis (ED) <Gauri Gonzalez CNP - Last Filed: 11/23/22 12:34> Additional Instructions: Follow up with your primary care provider. Return to the emergency department immediately if your symptoms worsen or if you develop any dizziness, shortness of breath, difficulty breathing, chest pain, blurry vision, loss of vision, nausea, vomiting, abdominal pain, fever, chills, back pain, or any other complaints. <Gauri Gonzalez CNP - Last Filed: 11/23/22 12:34> Prescriptions: New amoxicillin-pot clavulanate 875-125 mg tablet 1 tab PO BID 7 Days Qty: 14 0RF No Action ondansetron 4 mg tablet,disintegrating 4 mg PO Q8H PRN (Reason: nausea and vomiting) Qty: 20 0RF zolpidem 12.5 mg tablet,ext release multiphase 12.5 mg PO BEDTIME 30 Days Qty: 30 1RF escitalopram oxalate 10 mg tablet 10 mg PO DAILY 30 Days Qty: 30 2RF clonidine HCl 0.1 mg tablet 0.1 mg PO TID PRN (Reason: for anxiety) Qty: 90 2RF tramadol 50 mg tablet 50 mg PO TID PRN (Reason: pain) 30 Days Qty: 90 0RF lorazepam [Ativan] 1 mg tablet 1 mg PO BID 30 Days Qty: 60 0RF Rx Instructions: Take 1 tablet ONE to TWO TIMES A DAY ONLY NEEDED for increased anxiety; acetaminophen 325 mg Tablet 650 mg PO Q8H PRN (Reason: Pain, Mild (Pain Scale 1-3)) 30 Days 0RF budesonide 3 mg capsule,delayed,extend.release 9 mg PO DAILY mesalamine 500 mg capsule, extended release 500 mg PO QID Mirena 20 mcg/24 hours (6 yrs) 52 mg intrauterine device 1 device intrauterine ONCE cholestyramine (with sugar) 4 gram powder 1 ea PO TID PRN (Reason: gi upset) omeprazole 20 mg capsule,delayed release(DR/EC) 20 mg PO DAILY diphenoxylate-atropine 2.5-0.025 mg tablet 1 - 2 tab PO Q6H PRN (Reason: Diarrhea) Excedrin Extra Strength 250-250-65 mg tablet 1 tab PO Q4-6H PRN (Reason: Insomnia) Entyvio 300 mg recon soln 300 mg IV Q4W Rx Instructions: administer over 30 mins dicyclomine 10 mg capsule 10 mg PO <Gauri Gonzalez CNP - Last Filed: 11/23/22 12:34> Referrals: Jaswant Frank MD [Primary Care Provider] - <Gauri Gonzalez CNP - Last Filed: 11/23/22 12:34> Stand Alone Forms: Work/School Release <Gauri Gonzalez CNP - Last Filed: 11/23/22 12:34> Interventions: ED Discharge Assessment Last Done: 11/23/22 14:27 <Gauri Gonzalez CNP - Last Filed: 11/23/22 12:34> Discharge Date/Time: 11/23/22 14:29 <Gauri Gonzalez CNP - Last Filed: 11/23/22 12:34> Print Language: Bur[place]ian <Gauri Gonzalez CNP - Last Filed: 11/23/22 12:34>
[2022-11-23] MEDS: Ondansetron ODT 4 MG TAB.RAPDIS TRANSLINGU (12:35)
[2022-11-23 12:54] LABS: MANUAL DIFF FLAG NO
[2022-11-23 13:01] LABS: Basophils Percent Auto 0.3 % (0-2); Eosinophils Absolute Auto 0.1 X10*3/uL (0.0-0.4); Eosinophils Percent Auto 1.3 % (0-4); Hematocrit 43.5 % (37.0-47.0); Hemoglobin 14.4 g/dl (12.0-16.0); Imm Gran Abs Auto 0.05 X10*3/uL (0.00-0.03); Imm Gran Pct Auto 0.5 % (0.0-0.4); Lymphocytes Absolute Auto 1.6 X10*3/uL (1.2-4.9); Lymphocytes Percent Auto 15.7 % (20-40); Mean Corpuscular HGB Conc 33.1 g/dl (31.0-35.0); Mean Corpuscular Hemoglobin 30.6 pg (27.0-33.0); Mean Corpuscular Volume 92.6 fL (80.0-98.0); Mean Platelet Volume 9.5 fL (9.4-12.3); Monocytes Absolute Auto 0.8 X10*3/uL (0.1-1.2); Neutrophils Absolute Auto 7.6 x10*3/uL (2.0-8.3); Neutrophils Percent Auto 74.2 % (45-73); Platelet Count 285 X10*3/uL (160-400); Red Cell Distribution Width 13.9 % (11.0-16.0); White Blood Count 10.2 X10*3/uL (4.8-10.8)
[2022-11-23] MEDS: 0.9 % Sodium Chloride 1,000 ML 999 ML IV (13:15)
[2022-11-23 13:20] LABS: Appearance Urine Cloudy; Color Urine Yellow; Glucose Urine UA Negative (Negative); Leukocyte Esterase Urine Negative (Negative); Nitrite Urine Negative (Negative); PH 5.5 (5.0-9.0); Urine Blood Negative (Negative); Urine Ketones Negative (Negative); Urine Protein Negative (Neg-Trace)
[2022-11-23 13:21] LABS: UPreg QC Valid YES; Urine Pregnancy NEGATIVE (NEGATIVE)
[2022-11-23 13:24] LABS: Alanine Aminotransferase 27 U/L (0-31); Albumin Level 3.8 g/dL (3.5-5.0); Alkaline Phosphatase 99 U/L (39-117); Anion Gap 14 (12-20); Aspartate Amino Transferase 19 U/L (5-31); Bilirubin Total 0.3 mg/dL (0.0-1.0); Blood Urea Nitrogen 11 mg/dL (9-16); Calcium 9.6 mg/dL (8.4-10.2); Carbon Dioxide 23 mmol/L (22-29); Chloride 107 mmol/L (96-108); Creatinine Clr Calc Pharmacy 90.5; Estimated Glomerular Filt Rate > 60; Glucose Random 113 mg/dL (60-115); Lipase 13 U/L (8-78); Potassium 3.9 mmol/L (3.3-5.1); Sodium 140 mmol/L (135-145); Total Protein 6.7 g/dL (6.5-8.0)
[2022-11-23 13:31] LABS: HCG Quantitative < 2 mIU/mL
[2022-11-23] MEDS: iohexoL 350 MG/ML 100 ML INFUS..BTL 85 ML IV (13:37)
[2022-11-23] MEDS: HYDROmorphone HCl 2 MG/ML VIAL IVPUSH (14:16)
[2022-11-23] MEDS: Amoxicillin/Potassium Clav 875 MG TABLET PO (14:17)
[2022-11-23 14:23] VITALS: BP 141/70; PULSE 85; RESP 14; O2SAT 100
== END 2022-11-23 14:29 | disposition home or self-care (01) ==
PROVIDERS: Nurse Practitioner Family; Emergency Provider Emergency Medicine; PCP Internal Medicine
DX: K57.32 Diverticulitis of large intestine without perforation or abscess without bleeding (principal); R10.32 Left lower quadrant pain; Z79.899 Other long term (current) drug therapy; Z87.891 Personal history of nicotine dependence
CPT/HCPCS: 36415; 74177; 80053; 81003; 81025; 83690; 84702; 85025; 96361; 96374; 99284; J1170; Q9967

== ENCOUNTER 2022-12-05 13:01 | Outpatient (REF) | payer OTHER, SELFPAY ==
[2022-12-05 18:56] LABS: CT PCR NOT DETECTED (Not Detect.); NG PCR NOT DETECTED (Not Detect.)
[2022-12-06 13:49] LABS: BV Int Neg Control Negative (Negative); BV Int Pos Control Positive (Positive)
== END 2022-12-05 13:02 | disposition home or self-care (01) ==
LOC: HO.LNP 13:01
PROVIDERS: PCP Internal Medicine; Visit Provider Advanced Practice Midwife
DX: N89.8 Other specified noninflammatory disorders of vagina (principal); K50.90 Crohn's disease, unspecified, without complications; B37.31 Acute candidiasis of vulva and vagina; Z79.899 Other long term (current) drug therapy
CPT/HCPCS: 0353U; 87480; 87510; 87660; 99212

== ENCOUNTER 2022-12-10 09:46 | Inpatient (IN) | payer OTHER, SELFPAY ==
--- NOTE | ~2022-12-10 | CT_ITS ---
EXAMINATION: CT ABDOMEN AND PELVIS WITH CONTRAST CLINICAL INFORMATION: Diffuse abdominal pain with question of diverticulitis and history of Crohn's disease COMPARISON: CT abdomen pelvis 11/23/2022 which demonstrated acute diverticulitis at the sigmoid descending colon junction TECHNIQUE: Multidetector volumetric images were obtained from the superior aspect of the liver through the pubic symphysis following administration 85 mL of Omnipaque 350 intravenous contrast. Sagittal and coronal reformatted images were obtained on the technologist's workstation. Oral contrast: No This CT examination was performed using dose optimization techniques as appropriate, variously including the following: *Automated exposure control *Adjustment of mA and/or kV according to patient size (this includes techniques or standardized protocols for targeted exams where dose is matched to indication/reason for exam; i.e. extremities or head) *Use of iterative reconstruction technique DLP: 655 mGy-cm FINDINGS: LUNG BASES: The visualized lung bases are unremarkable. LIVER, GALLBLADDER, AND BILIARY TREE: The liver is normal in size, shape, and attenuation. No focal hepatic lesion or biliary ductal dilatation is present. The gallbladder is unremarkable with no evidence of radiopaque gallstones, gallbladder wall thickening, or obvious pericholecystic inflammatory changes. PANCREAS: Unremarkable. SPLEEN: Unremarkable. ADRENAL GLANDS: Unremarkable. KIDNEYS AND URETERS: The kidneys are normal in size, shape, and attenuation. No hydronephrosis, hydroureter, or calculi seen. No perinephric stranding. BLADDER: Unremarkable. GASTROINTESTINAL TRACT: A small hiatal hernia is present. Again seen are changes of diverticulitis at the junction of the descending colon and sigmoid colon which appear increased when compared to the study from 11/23/2022. Inflammatory changes in the pericolonic fat have increased as has be thickening of the anterior pararenal fascia and lateroconal fascia. No extraluminal air is seen. No drainable fluid collection is seen. ABDOMINAL WALL: No significant hernia is appreciated. LYMPH NODES: No retroperitoneal lymphadenopathy. VASCULAR: Unremarkable. PELVIC VISCERA: The uterus and adnexa are unremarkable. An IUD is present in the uterus in good position. OSSEOUS STRUCTURES: Mild degenerative changes present in the spine most marked at T12-L1. CT/CT abdomen pelvis w IV con IMPRESSION: Worsening of diverticulitis at the junction of the descending colon and sigmoid colon. There is increased inflammation in the surrounding fat but no extraluminal air or drainable fluid collection is seen. Fleischner guidelines were followed.
[2022-12-10 09:53] VITALS: BP 154/88; PULSE 110; RESP 18; TEMP 36.6; O2SAT 96; BMI 33.8
[2022-12-10 10:55] LABS: MANUAL DIFF FLAG NO
[2022-12-10 10:56] LABS: Basophils Percent Auto 0.3 % (0-2); Eosinophils Absolute Auto 0.1 X10*3/uL (0.0-0.4); Eosinophils Percent Auto 0.7 % (0-4); Hematocrit 42.5 % (37.0-47.0); Imm Gran Abs Auto 0.04 X10*3/uL (0.00-0.03); Imm Gran Pct Auto 0.3 % (0.0-0.4); Lymphocytes Absolute Auto 1.2 X10*3/uL (1.2-4.9); Lymphocytes Percent Auto 10.2 % (20-40); Mean Corpuscular HGB Conc 32.9 g/dl (31.0-35.0); Mean Corpuscular Hemoglobin 30.4 pg (27.0-33.0); Mean Corpuscular Volume 92.2 fL (80.0-98.0); Mean Platelet Volume 9.7 fL (9.4-12.3); Monocytes Absolute Auto 0.9 X10*3/uL (0.1-1.2); Monocytes Percent Auto 7.4 % (2-11); Neutrophils Absolute Auto 9.7 x10*3/uL (2.0-8.3); Neutrophils Percent Auto 81.1 % (45-73); Platelet Count 286 X10*3/uL (160-400); Red Blood Count 4.61 X10*6/uL (4.20-5.50)
[2022-12-10 11:02] LABS: INTERNATIONAL NORM RATIO 1.1 (0.9-1.1); Prothrombin Time 12.9 SEC (10.0-13.1)
--- NOTE | 2022-12-10 11:17 | PC.NURSE ---
report obtained from eileen, this nurse took over for patients care at 1060
[2022-12-10 11:18] LABS: COVID-19 Test Negative (Negative); IDNOW Serial# 16C4AD1C; IDNOW Serial# BCCEAD1C; Influenza A Negative (Negative); Influenza B2 Negative (Negative)
[2022-12-10] MEDS: 0.9 % Sodium Chloride 1,000 ML 999 ML IV (11:39)
[2022-12-10] MEDS: Morphine Sulfate 4 MG/ML CARTRIDGE IVPUSH (11:40)
[2022-12-10] MEDS: ondansetron HCL 4 MG/2 ML VIAL IVPUSH ×2 (11:40→20:46)
[2022-12-10 11:41] LABS: Appearance Urine Cloudy; Color Urine Yellow; Glucose Urine UA Negative (Negative); Leukocyte Esterase Urine Negative (Negative); Nitrite Urine Negative (Negative); PH 5.5 (5.0-9.0); Specific Gravity - Urine 1.015 (1.005-1.025); UMIC TRIGGER UACC YES; Urine Blood Small (1+) (Negative); Urine Ketones Negative (Negative); Urine Protein Negative (Neg-Trace)
--- NOTE | 2022-12-10 11:47 | PC.NURSE ---
a&ox3, iv inserted, labs draw, iv fluids running per order, patient medicated per order. call mckeon within reach, will continue to monitor.
[2022-12-10 11:52] LABS: Bacteria Urine Trace (None Seen); Hyaline Casts Urine 0-2 /LPF (0-2); RBC Urine 0-2 /HPF (0-2); Squamous Epithelial Cell Urine >20 /HPF (0-2); WBC Urine 0-5 /HPF (0-5)
[2022-12-10 12:00] VITALS: BP 121/70; PULSE 77; RESP 15; TEMP 37.1; O2SAT 98
--- NOTE | 2022-12-10 12:10 | ED_ITS ---
HPI - Abdominal Pain General Chief Complaint: Abdominal Pain Stated Complaint: Abd pain/Nausea Time Seen by Provider: 12/10/22 10:12 Source: patient Mode of arrival: ambulatory History of Present Illness HPI narrative: 47-year-old female with past medical history of Crohn's disease, anxiety, insomnia, migraines, osteoarthritis, recent diverticulitis treated with Augmentin, and recent BV treated with Flagyl, presenting to the ED complaining of left-sided abdominal pain radiating to left flank x 3 days. Admits pain worsened last night into today with associated dysuria, nausea, vomiting, and diarrhea. Denies fever, chills, hematuria, suspicious food intake. MD elicited complaint: abdominal pain and flank pain Onset (ago): day(s) Related Data Home Medications Medication Instructions Recorded Confirmed levonorgestrel 20 mcg/24 hours (8 1 device intrauterine ONCE 10/04/20 12/05/22 yrs) 52 mg intrauterine device (Mirena) omeprazole 20 mg capsule,delayed 20 mg PO DAILY 12/05/20 12/05/22 release cholestyramine (with sugar) 4 gram 1 ea PO TID PRN gi upset 10/09/21 12/05/22 oral powder [id number]-rzagbdwquxafh-[id number] 250 1 tab PO Q4-6H PRN Insomnia 02/05/22 12/05/22 mg-250 mg-65 mg tablet (Excedrin Extra Strength) diphenoxylate-atropine 2.5 1 - 2 tab PO Q6H PRN Diarrhea 05/04/22 12/05/22 mg-0.025 mg tablet dicyclomine 10 mg capsule 10 mg PO 07/17/22 12/05/22 vedolizumab 300 mg intravenous 300 mg IV Q4W 10/16/22 12/05/22 solution (Entyvio) budesonide 3 mg 9 mg PO DAILY 11/14/22 12/05/22 capsule,delayed,extended release mesalamine 500 mg capsule,extended 500 mg PO QID 11/14/22 12/05/22 release Previous Rx's Medication Instructions Recorded acetaminophen 325 mg tablet 650 mg PO Q8H PRN Pain, Mild (Pain 04/29/21 Scale 1-3) 30 days ondansetron 4 mg disintegrating 4 mg PO Q8H PRN nausea and 06/05/22 tablet vomiting #20 tabs clonidine HCl 0.1 mg tablet 0.1 mg PO TID PRN for anxiety #90 11/05/22 tabs escitalopram oxalate 10 mg tablet 10 mg PO DAILY 30 days #30 tabs 11/05/22 lorazepam 1 mg tablet (Ativan) 1 mg PO BID anxiety 30 days #60 11/06/22 tabs tramadol 50 mg tablet 50 mg PO TID PRN pain 30 days #90 11/06/22 tabs fluconazole 150 mg tablet 150 mg PO Q3D 2 doses #2 tabs 12/05/22 metronidazole 500 mg tablet 500 mg PO BID 7 days #14 tabs 12/07/22 Allergies Allergy/AdvReac Type Severity Reaction Status Date / Time meperidine [From Demerol] Allergy Severe SWELLING,RASH,THROAT Verified 12/10/22 09:57 CLOSES latex [LATEX] Allergy Mild RASH Verified 12/10/22 09:57 codeine [Codeine] AdvReac Intermediate NAUSEA/VOMITING, Verified 12/10/22 09:57 GI upset/vomiting Fish Containing Products AdvReac Unknown NAUSEA/VOMI Verified 12/10/22 09:57 [Fish Product Derivatives] TING trazodone AdvReac Intermediate worsening Uncoded 12/05/22 13:08 anxiety symptoms Review of Systems Review of Systems Constitutional: No Fever, No Chills, No Fatigue, No Malaise ENT/Mouth: No Ear Pain, No Nasal Congestion, No sore throat, No Rhinorrhea, No Swallowing Difficulty Eyes: No Eye Pain, No Swelling, No Redness, No Vision Changes Cardiovascular: No Chest Pain, No SOB Respiratory: No Cough, No Sputum, No Dyspnea Gastrointestinal: + Nausea, + Vomiting, + Diarrhea, No Constipation, + Abdominal pain Genitourinary: + Dysuria, No Urinary Frequency, No Hematuria, No Urinary Incontinence/retention, No Urgency, + Flank Pain Musculoskeletal: No joint pain, No Myalgias, No Joint Swelling Skin: No Skin Lesions, No rash Neuro: No Weakness, No Numbness, No Dizziness, No Headache Yes all other systems are reviewed and are negative Constitutional: Reports as per [facility] Past Medical History Attestation statement: The following information was validated with the patient. 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 History of renal cell cancer (~2014) Insomnia Intractable nausea and vomiting Lumbar degenerative disc disease Migraine Obesity (BMI 30-39.9) Osteoarthritis of hips, bilateral Surgical History History of arthroplasty (~01/2012) History of cryosurgery (~04/20/15) History of esophagogastroduodenoscopy (EGD) History of intestinal surgery History of removal of calculus of renal pelvis through percutaneous nephrostomy (~10/2015) Hx of colonoscopy Family History Family History Father Crohn disease Migraine Cancer Mother HTN (hypertension) Vertigo Cervical cancer Maternal Grandmother HTN (hypertension) Hyperlipidemia Diabetes mellitus Paternal Grandmother Diabetes mellitus Other Mental health problem Social History Social History Household Members: Significant Other and Children Housing: House Do you presently have visiting nurse or other home services: No Alcohol intake: current Alcohol intake frequency: holidays/special occasions only Patient Tobacco Use Status: Former Tobacco user Tobacco use type: Cigarette Smoked in Last 30 Days: No e-Cigarette/Vaping Use: Former Use Second Hand Smoke Exposure: No Use of substances other than those prescribed or required for medical reasons: No Advance Directives: Yes Advance Directives on File: Yes Advance Directives Date on File: 06/15/22 Patient : No service: No Current occupational status: unemployed Gender identity: Female Cognitive needs: No Hearing needs: No Vision needs: Yes (glasses) Physical Exam ED Vital Signs: Vital Signs - 24 hr 12/10/22 09:53 12/10/22 12:00 Temperature 97.9 F 98.8 F Pulse Rate 110 H 77 Respiratory Rate 18 15 Blood Pressure 154/88 H 121/70 Pulse Oximetry 96 98 Oxygen Delivery Method Room Air Room Air BMI result Body Mass Index 33.8 Const Other: Appears in pain General: cooperative, healthy appearing and no acute distress Orientation/consciousness: patient oriented x3 Limitations: no limitations HENMT Head: Yes normal to inspection and Yes atraumatic Ears: hearing grossly normal bilaterally General nose exam: Normal external nose present Face and sinus: Yes normal facial exam Eyes General: appearance normal, both eyes and all related structures EOM: EOMs intact bilaterally Neck Neck: Yes normal visual inspection and Yes no meningeal signs Resp Effort & Inspection: normal respiratory effort and no respiratory distress Cardio Rate: tachycardic Heart sounds: S1 normal heart sound present and S2 normal heart sound present GI Inspection: Yes normal to inspection Palpation (GI): Soft to palpation, Tenderness to palpation present (GI) ( diffusely) with no rebound tenderness, no guarding and not rigid General: Yes no CVA tenderness Back/Spine/Pelvis Back: no CVA tenderness Skin Rashes: no rashes Wounds: no wounds Neuro General: patient oriented x3, tone normal and no meningeal signs Gait exam (Neuro): Normal gait present Extrem General: Yes normal to inspection Course Course Course Narrative: - 1400-- mild leukocytosis of 12. Labs otherwise reassuring. UA not infected CT abdomen pelvis w IV con IMPRESSION: Worsening of diverticulitis at the junction of the descending colon and sigmoid colon. There is increased inflammation in the surrounding fat but no extraluminal air or drainable fluid collection is seen. ? Fleischner guidelines were followed. >> patient failed outpatient p.o. antibiotics, will obtain lactic/ blood cultures and give IV Rocephin/ Flagyl. Plan will be for admission. Medical Decision Making Medical Decision Making [facility] Narrative: 47-year-old female with past medical history of Crohn's disease, anxiety, insom marcio, migraines, osteoarthritis, recent diverticulitis treated with Augmentin, and recent BV treated with Flagyl, presenting to the ED complaining of left- sided abdominal pain radiating to left flank x 3 days. on exam appears in pain, mildly tachycardic from pain, NAD, nontoxic, abdomen soft diffusely tender, no rebound or guarding, no CVA tenderness. Concern for acute Crohn's flare vs complicated diverticulitis vs appendicitis vs renal stone/pyelo or UTI. Lower suspicion for SBO or ovarian pathology/torsion low suspicion for severe sepsis at this time plan: Labs, UA, CT AP, IVF, pain medication, re-evaluate Please refer to course for remaining clinical decision making, interpretation of labs/imaging results, and discussions with consultants and/or family members. Differential Diagnosis Differential Diagnoses: The differential diagnosis associated with the presentation includes as above Lab Data [facility] Lab Attestation statement: I reviewed the patient's lab results. 12/10/22 10:49 12/10/22 10:49 Labs: Lab Results 12/10/22 12/10/22 12/10/22 Range/Units 10:49 10:49 10:49 WBC 12.0 H (4.8-10.8) X10*3/uL RBC 4.61 (4.20-5.50) X10*6/uL Hgb 14.0 (12.0-16.0) g/dl Hct 42.5 (37.0-47.0) % MCV 92.2 (80.0-98.0) fL MCH 30.4 (27.0-33.0) pg MCHC 32.9 (31.0-35.0) g/dl RDW 14.0 (11.0-16.0) % Plt Count 286 (160-400) X10*3/uL MPV 9.7 (9.4-12.3) fL Immature Gran % (Auto) 0.3 (0.0-0.4) % Neut % (Auto) 81.1 H (45-73) % Lymph % (Auto) 10.2 L (20-40) % Stewart % (Auto) 7.4 (2-11) % Eos % (Auto) 0.7 (0-4) % Baso % (Auto) 0.3 (0-2) % Lymph # (Auto) 1.2 (1.2-4.9) X10*3/uL Stewart # (Auto) 0.9 (0.1-1.2) X10*3/uL Eos # (Auto) 0.1 (0.0-0.4) X10*3/uL Baso # (Auto) 0.0 (0.0-0.2) X10*3/uL Abs Immat Gran (auto) 0.04 H (0.00-0.03) X10*3/uL Absolute Neuts (auto) 9.7 H (2.0-8.3) x10*3/uL Absolute Nucleated RBC 0.000 (0.0-0.012) X10*3/uL Nucleated RBC % (auto) 0.0 (0.0-0.2) /100WBC PT 12.9 (10.0-13.1) SEC INR 1.1 (0.9-1.1) Sodium 139 (135-145) mmol/L Potassium 4.1 (3.3-5.1) mmol/L Chloride 103 (96-108) mmol/L Carbon Dioxide 26 (22-29) mmol/L Anion Gap 14 (12-20) BUN 10 (9-16) mg/dL Creatinine 0.78 (0.5-1.4) mg/dL Estim Creat Clear Calc 89.5 Estimated GFR > 60 Random Glucose 117 H (60-115) mg/dL Calcium 9.4 (8.4-10.2) mg/dL Magnesium 1.6 (1.6-2.6) mg/dL Total Bilirubin 0.3 (0.0-1.0) mg/dL Direct Bilirubin < 0.2 (0.0-0.5) mg/dL AST 11 (5-31) U/L ALT 8 (0-31) U/L Alkaline Phosphatase 86 (39-117) U/L Total Protein 6.4 L (6.5-8.0) g/dL Albumin 3.5 (3.5-5.0) g/dL Lipase 10 (8-78) U/L Urine Color Urine Appearance Urine pH (5.0-9.0) Ur Specific [place] (1.005-1.025) Urine Protein (Neg-Trace) mg/dL Urine Glucose (UA) (Negative) mg/dL Urine Ketones (Negative) mg/dL Urine Blood (Negative) Urine Nitrite (Negative) Ur Leukocyte Esterase (Negative) Urine RBC (0-2) /HPF Urine WBC (0-5) /HPF Ur Squamous Epith Cells (0-2) /HPF Urine Bacteria (None Seen) Hyaline Casts (0-2) /LPF COVID-19 (LORENZO) (Negative) COVID-19 Clin Com Influenza Type A (MARQUEZ) (Negative) Influenza Type B (MARQUEZ) (Negative) Influenza A & B Note 12/10/22 12/10/22 12/10/22 Range/Units 10:49 10:49 11:28 WBC (4.8-10.8) X10*3/uL RBC (4.20-5.50) X10*6/uL Hgb (12.0-16.0) g/dl Hct (37.0-47.0) % MCV (80.0-98.0) fL MCH (27.0-33.0) pg MCHC (31.0-35.0) g/dl RDW (11.0-16.0) % Plt Count (160-400) X10*3/uL MPV (9.4-12.3) fL Immature Gran % (Auto) (0.0-0.4) % Neut % (Auto) (45-73) % Lymph % (Auto) (20-40) % Stewart % (Auto) (2-11) % Eos % (Auto) (0-4) % Baso % (Auto) (0-2) % Lymph # (Auto) (1.2-4.9) X10*3/uL Stewart # (Auto) (0.1-1.2) X10*3/uL Eos # (Auto) (0.0-0.4) X10*3/uL Baso # (Auto) (0.0-0.2) X10*3/uL Abs Immat Gran (auto) (0.00-0.03) X10*3/uL Absolute Neuts (auto) (2.0-8.3) x10*3/uL Absolute Nucleated RBC (0.0-0.012) X10*3/uL Nucleated RBC % (auto) (0.0-0.2) /100WBC PT (10.0-13.1) SEC INR (0.9-1.1) Sodium (135-145) mmol/L Potassium (3.3-5.1) mmol/L Chloride (96-108) mmol/L Carbon Dioxide (22-29) mmol/L Anion Gap (12-20) BUN (9-16) mg/dL Creatinine (0.5-1.4) mg/dL Estim Creat Clear Calc Estimated GFR Random Glucose (60-115) mg/dL Calcium (8.4-10.2) mg/dL Magnesium (1.6-2.6) mg/dL Total Bilirubin (0.0-1.0) mg/dL Direct Bilirubin (0.0-0.5) mg/dL AST (5-31) U/L ALT (0-31) U/L Alkaline Phosphatase (39-117) U/L Total Protein (6.5-8.0) g/dL Albumin (3.5-5.0) g/dL Lipase (8-78) U/L Urine Color Yellow Urine Appearance Cloudy Urine pH 5.5 (5.0-9.0) Ur Specific [place] 1.015 (1.005-1.025) Urine Protein Negative (Neg-Trace) mg/dL Urine Glucose (UA) Negative (Negative) mg/dL Urine Ketones Negative (Negative) mg/dL Urine Blood Small (1+) H (Negative) Urine Nitrite Negative (Negative) Ur Leukocyte Esterase Negative (Negative) Urine RBC 0-2 (0-2) /HPF Urine WBC 0-5 (0-5) /HPF Ur Squamous Epith Cells >20 (0-2) /HPF Urine Bacteria Trace (None Seen) Hyaline Casts 0-2 (0-2) /LPF COVID-19 (LORENZO) Negative (Negative) COVID-19 Clin Com See Note Influenza Type A (MARQUEZ) Negative (Negative) Influenza Type B (MARQUEZ) Negative (Negative) Influenza A & B Note See Note Radiology Impression Discussion of test interpretation with radiology: I have reviewed the radiologist's reading. Medications Administered Discontinued Medications Generic Name Dose Route Start Last Admin Trade Name Freq PRN Reason Stop Dose Admin Sodium Chloride 1,000 mls @ 999 mls/hr 12/10/22 10:45 12/10/22 11:39 Ns IV 12/10/22 11:45 999 mls/hr .Q1H1M BENJAMIN Administration Iohexol 85 ml 12/10/22 12:45 12/10/22 12:48 Iohexol 350 Mg/Ml 100 Ml Infus..Btl IV 12/10/22 12:46 85 ml ONCE ONE Administration Morphine Sulfate 4 mg 12/10/22 10:31 12/10/22 11:40 Morphine Sulfate 4 Mg/Ml Cartridge IVPUSH 12/10/22 10:32 4 mg ONCE ONE Administration Protocol Ondansetron HCl 4 mg 12/10/22 10:33 12/10/22 11:40 Ondansetron Hcl 4 Mg/2 Ml Vial IVPUSH 12/10/22 10:34 4 mg ONCE ONE Administration Critical Care Time Critical Care Time Critical Care Time: Yes Total Critical Care Time: 40 Attestation: I have personally provided critical care time exclusive of time spent on separately billable procedures. Time includes review of lab data, radiology r esults, discussion with consultants, and monitoring for potential decompensation. Intervention performed as documented. Discharge Plan Discharge Clinical Impression: Diverticulitis Prescriptions: No Action ondansetron 4 mg tablet,disintegrating 4 mg PO Q8H PRN (Reason: nausea and vomiting) Qty: 20 0RF escitalopram oxalate 10 mg tablet 10 mg PO DAILY 30 Days Qty: 30 2RF clonidine HCl 0.1 mg tablet 0.1 mg PO TID PRN (Reason: for anxiety) Qty: 90 2RF tramadol 50 mg tablet 50 mg PO TID PRN (Reason: pain) 30 Days Qty: 90 0RF lorazepam [Ativan] 1 mg tablet 1 mg PO BID 30 Days Qty: 60 0RF Rx Instructions: Take 1 tablet ONE to TWO TIMES A DAY ONLY NEEDED for increased anxiety; metronidazole 500 mg tablet 500 mg PO BID 7 Days Qty: 14 0RF Rx Instructions: Take with food, Avoid alcohol and vinegar products acetaminophen 325 mg Tablet 650 mg PO Q8H PRN (Reason: Pain, Mild (Pain Scale 1-3)) 30 Days 0RF budesonide 3 mg capsule,delayed,extend.release 9 mg PO DAILY mesalamine 500 mg capsule, extended release 500 mg PO QID Mirena 20 mcg/24 hours (6 yrs) 52 mg intrauterine device 1 device intrauterine ONCE cholestyramine (with sugar) 4 gram powder 1 ea PO TID PRN (Reason: gi upset) omeprazole 20 mg capsule,delayed release(DR/EC) 20 mg PO DAILY diphenoxylate-atropine 2.5-0.025 mg tablet 1 - 2 tab PO Q6H PRN (Reason: Diarrhea) Excedrin Extra Strength 250-250-65 mg tablet 1 tab PO Q4-6H PRN (Reason: Insomnia) fluconazole 150 mg tablet 150 mg PO Q3D 0 Days Qty: 2 3RF Rx Instructions: may repeat second dose 72 hrs after first dose if symptoms persist Entyvio 300 mg recon soln 300 mg IV Q4W Rx Instructions: administer over 30 mins dicyclomine 10 mg capsule 10 mg PO
[2022-12-10 12:29] LABS: Alanine Aminotransferase 8 U/L (0-31); Albumin Level 3.5 g/dL (3.5-5.0); Alkaline Phosphatase 86 U/L (39-117); Anion Gap 14 (12-20); Aspartate Amino Transferase 11 U/L (5-31); Bilirubin Direct < 0.2 mg/dL (0.0-0.5); Bilirubin Total 0.3 mg/dL (0.0-1.0); Blood Urea Nitrogen 10 mg/dL (9-16); Calcium 9.4 mg/dL (8.4-10.2); Carbon Dioxide 26 mmol/L (22-29); Chloride 103 mmol/L (96-108); Creatinine Clr Calc Pharmacy 89.5; Estimated Glomerular Filt Rate > 60; Glucose Random 117 mg/dL (60-115); Lipase 10 U/L (8-78); Magnesium 1.6 mg/dL (1.6-2.6); Potassium 4.1 mmol/L (3.3-5.1); Sodium 139 mmol/L (135-145); Total Protein 6.4 g/dL (6.5-8.0)
[2022-12-10] MEDS: iohexoL 350 MG/ML 100 ML INFUS..BTL 85 ML IV (12:48)
--- NOTE | 2022-12-10 13:13 | PC.NURSE ---
pt returned from ct scan, fluids reconnected and continue to run slowly
[2022-12-10] MEDS: Morphine Sulfate 2 MG/ML CARTRIDGE IVPUSH (14:33)
[2022-12-10] MEDS: Metoclopramide HCl 10 MG/2 ML VIAL IVPUSH (14:37)
[2022-12-10 14:59] VITALS: BP 129/84; PULSE 85; RESP 20; TEMP 36.8; O2SAT 98
[2022-12-10] MEDS: cefTRIAXone sodium 2 GM in 0.9 % Sodium Chloride 50 ML IV (15:24)
--- NOTE | 2022-12-10 15:26 | PC.NURSE ---
iv antibiotics started per order
--- NOTE | 2022-12-10 15:38 | P.HPHOSP_ITS ---
History of Present Illness Date of Service: 12/10/22 Attending physician on admission: Ronald Sales Chief Complaint: abd pain, n/v/d 47-year-old female with history of anxiety, Crohn's disease, 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's disease, history of diverticulitis, depression, history of r enal cell carcinoma, lumbar degenerative disc disease, migraine, bilateral osteoarthritis of the hips, and obesity presented to the ED earlier today for evaluation of left lower quadrant pain radiating to the left side and across the low abdomen with associated nausea and vomiting. With left lower quadrant pain has been persisting for nearly 3 weeks and she was seen in our ED on 11/[address] scan showing uncomplicated diverticulitis. She was prescribed a 7 day course of Augmentin with some improvement in pain but not full resolution. Over the last few days has had increased left lower quadrant pain rated as a 6-7/10 with associated nausea and multiple episodes of vomiting with decreased p.o. intake. In the ED, vital signs have been stable. Mild leukocytosis of 12.0. Renal function electrolyte levels normal. Urinalysis unremarkable. CT of the abdomen/pelvis shows worsening diverticulitis at the junction of the descending colon and sigmoid colon with increased inflammation in the surrounding fat without any extra luminal air or drainable fluid collection. In the ED, she was treated with ceftriaxone. Pt to be admitted for further management of acute diverticulitis having failed outpt oral antibiotics. She does follow with Dr. Palma in GI, last seen 12/04, and receives entivio for her crohns. Review of Systems Review of Systems: General: No fevers, malaise, unintentional weight loss Cardiovascular: No chest pain, palpitations, or leg edema Respiratory: No shortness of breath, wheezing, cough GI: +abd pain, +n/v/d. No abdominal pain, constipation, melena, hematochezia : No dysuria, hematuria, increased urinary frequency, decreased urinary output MSK: No myalgia, back pain Neuro: No headaches, weakness, paresthesias Skin: No rashes or lesions [facility] 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 History of renal cell cancer (~2014) Insomnia Intractable nausea and vomiting Lumbar degenerative disc disease Migraine Obesity (BMI 30-39.9) Osteoarthritis of hips, bilateral Family History Father Crohn disease Migraine Cancer Mother HTN (hypertension) Vertigo Cervical cancer Maternal Grandmother HTN (hypertension) Hyperlipidemia Diabetes mellitus Paternal Grandmother Diabetes mellitus Other Mental health problem Surgical History History of arthroplasty (~01/2012) History of cryosurgery (~04/20/15) History of esophagogastroduodenoscopy (EGD) History of intestinal surgery History of removal of calculus of renal pelvis through percutaneous nephrostomy (~10/2015) Hx of colonoscopy Social History Household Members: Significant Other and Children Housing: House Do you presently have visiting nurse or other home services: No Alcohol intake: current Alcohol intake frequency: holidays/special occasions only Patient Tobacco Use Status: Former Tobacco user Tobacco use type: Cigarette Smoked in Last 30 Days: No e-Cigarette/Vaping Use: Former Use Second Hand Smoke Exposure: No Use of substances other than those prescribed or required for medical reasons: No Advance Directives: Yes Advance Directives on File: Yes Advance Directives Date on File: 06/15/22 Patient : No service: No Current occupational status: unemployed Gender identity: Female Cognitive needs: No Hearing needs: No Vision needs: Yes (glasses) Meds Allergies Allergy/AdvReac Type Severity Reaction Status Date / Time meperidine [From Demerol] Allergy Severe SWELLING,RASH,THROAT Verified 12/10/22 09:57 CLOSES latex [LATEX] Allergy Mild RASH Verified 12/10/22 09:57 codeine [Codeine] AdvReac Intermediate NAUSEA/VOMITING, Verified 12/10/22 09:57 GI upset/vomiting Fish Containing Products AdvReac Unknown NAUSEA/VOMI Verified 12/10/22 09:57 [Fish Product Derivatives] TING trazodone AdvReac Intermediate worsening Uncoded 12/05/22 13:08 anxiety symptoms Active Medications: Current Medications Acetaminophen (Acetaminophen 325 Mg Tablet) 650 mg PO Q6H PRN PRN Reason: Pain, Mild (Pain Scale 1-3) Enoxaparin Sodium (Enoxaparin Sodium 40 Mg/0.4 Ml Syringe) 40 mg SUBCUT Q24H [facility] Hydromorphone HCl (Hydromorphone Hcl 1 Mg/Ml Syringe) 0.25 mg IVPUSH Q4H PRN; Protocol PRN Reason: Pain, Severe (Pain Scale 7-10) Levofloxacin (Levaquin) 750 mg in 150 mls @ 100 mls/hr IV Q24H [facility] Metronidazole (Flagyl) 500 mg in 100 mls @ 100 mls/hr IV Q8H [facility] Ketorolac Tromethamine (Ketorolac Tromethamine 30 Mg/Ml Vial) 30 mg IVPUSH Q6H PRN PRN Reason: Pain, Moderate (Pain Scale 4-6 Stop: 12/15/22 15:29 Ondansetron HCl (Ondansetron Hcl 4 Mg/2 Ml Vial) 4 mg IVPUSH Q8H PRN PRN Reason: Nausea and Vomiting Oxycodone HCl (Oxycodone Hcl Immed Release 5 Mg Tablet) 5 mg PO Q6H PRN PRN Reason: Pain, Moderate (Pain Scale 4-6 Pharmacy Consult (Consult Rx Perform Med Rec) 1 each MISCELLANE ONCE STA Stop: 12/10/22 14:35 Sodium Chloride (0.9 % Sodium Chloride Flush 3 Ml Syringe) 3 ml IVFLUSH QSHIFT [facility] Home Medications Medication Instructions Recorded Confirmed Last Taken Type levonorgestrel 20 mcg/24 hours (8 1 device intrauterine ONCE 10/04/20 12/05/22 Unknown History yrs) 52 mg intrauterine device (Mirena) omeprazole 20 mg capsule,delayed 20 mg PO DAILY 12/05/20 12/05/22 Unknown History release diphenoxylate-atropine 2.5 1 - 2 tab PO Q6H PRN Diarrhea 05/04/22 12/05/22 Unknown History mg-0.025 mg tablet dicyclomine 10 mg capsule 10 mg PO 07/17/22 12/05/22 Unknown History vedolizumab 300 mg intravenous 300 mg IV Q4W 10/16/22 12/05/22 Unknown History solution (Entyvio) budesonide 3 mg 9 mg PO DAILY 11/14/22 12/05/22 Unknown History capsule,delayed,extended release mesalamine 500 mg capsule,extended 500 mg PO QID 11/14/22 12/05/22 Unknown History release zolpidem 12.5 mg tablet,extended 1 tab PO BEDTIME 12/10/22 Unknown History release,multiphase Physical Exam Vital Signs and Narrative: Vital Signs: Last Vital Signs Temp 98.3 F 12/10/22 14:59 Pulse 85 12/10/22 14:59 Resp 20 12/10/22 14:59 BP 129/84 12/10/22 14:59 Pulse Ox 98 12/10/22 14:59 O2 Del Method 12/10/22 14:59 BMI result Body Mass Index 33.8 Constitutional - Awake and Alert, No apparent distress Eyes - PERRLA, EOMI Cardiovascular - S1S2, RRR, No edema Respiratory - Normal lung expansion, Normal respiratory effort, No respiratory distress, CTA bilaterally Gastrointestinal - DIffuse abd ttp with voluntary gaurding, no rebound, greatest in LLQ. ND; +BS Extremities - no calf tenderness bilaterally, no swelling Skin - Warm/Dry Neurological - Alert & oriented x3, CN II-XII in tact, 5/5 strength BUE and BLE Psychological - Appropriate affect Results Labs 12/10/22 10:49 12/10/22 10:49 Labs: Laboratory Results - last 24 hr 12/10/22 12/10/22 12/10/22 10:49 10:49 10:49 MCV 92.2 MCH 30.4 MCHC 32.9 RDW 14.0 Plt Count 286 MPV 9.7 Immature Gran % (Auto) 0.3 Neut % (Auto) 81.1 H Lymph % (Auto) 10.2 L Gillespie % (Auto) 7.4 Eos % (Auto) 0.7 Baso % (Auto) 0.3 Lymph # (Auto) 1.2 Gillespie # (Auto) 0.9 Eos # (Auto) 0.1 Baso # (Auto) 0.0 Abs Immat Gran (auto) 0.04 H Absolute Neuts (auto) 9.7 H Absolute Nucleated RBC 0.000 Nucleated RBC % (auto) 0.0 PT 12.9 INR 1.1 Anion Gap 14 Estim Creat Clear Calc 89.5 Estimated GFR > 60 Random Glucose 117 H Lactic Acid Calcium 9.4 Magnesium 1.6 Total Bilirubin 0.3 Direct Bilirubin < 0.2 AST 11 ALT 8 Alkaline Phosphatase 86 Total Protein 6.4 L Albumin 3.5 Lipase 10 Urine Color Urine Appearance Urine pH Ur Specific [place] Urine Protein Urine Glucose (UA) Urine Ketones Urine Blood Urine Nitrite Ur Leukocyte Esterase Urine RBC Urine WBC Ur Squamous Epith Cells Urine Bacteria Hyaline Casts COVID-19 ([facility]) COVID-19 Clin Com Influenza Type A (MARQUEZ) Influenza Type B (MARQUEZ) Influenza A & B Note 12/10/22 12/10/22 12/10/22 10:49 10:49 11:28 MCV MCH MCHC RDW Plt Count MPV Immature Gran % (Auto) Neut % (Auto) Lymph % (Auto) Gillespie % (Auto) Eos % (Auto) Baso % (Auto) Lymph # (Auto) Gillespie # (Auto) Eos # (Auto) Baso # (Auto) Abs Immat Gran (auto) Absolute Neuts (auto) Absolute Nucleated RBC Nucleated RBC % (auto) PT INR Anion Gap Estim Creat Clear Calc Estimated GFR Random Glucose Lactic Acid Calcium Magnesium Total Bilirubin Direct Bilirubin AST ALT Alkaline Phosphatase Total Protein Albumin Lipase Urine Color Yellow Urine Appearance Cloudy Urine pH 5.5 Ur Specific [place] 1.015 Urine Protein Negative Urine Glucose (UA) Negative Urine Ketones Negative Urine Blood Small (1+) H Urine Nitrite Negative Ur Leukocyte Esterase Negative Urine RBC 0-2 Urine WBC 0-5 Ur Squamous Epith Cells >20 Urine Bacteria Trace Hyaline Casts 0-2 COVID-19 ([facility]) Negative COVID-19 Clin Com See Note Influenza Type A (MARQUEZ) Negative Influenza Type B (MARQUEZ) Negative Influenza A & B Note See Note 12/10/22 15:04 MCV MCH MCHC RDW Plt Count MPV Immature Gran % (Auto) Neut % (Auto) Lymph % (Auto) Gillespie % (Auto) Eos % (Auto) Baso % (Auto) Lymph # (Auto) Gillespie # (Auto) Eos # (Auto) Baso # (Auto) Abs Immat Gran (auto) Absolute Neuts (auto) Absolute Nucleated RBC Nucleated RBC % (auto) PT INR Anion Gap Estim Creat Clear Calc Estimated GFR Random Glucose Lactic Acid 1.0 Calcium Magnesium Total Bilirubin Direct Bilirubin AST ALT Alkaline Phosphatase Total Protein Albumin Lipase Urine Color Urine Appearance Urine pH Ur Specific [place] Urine Protein Urine Glucose (UA) Urine Ketones Urine Blood Urine Nitrite Ur Leukocyte Esterase Urine RBC Urine WBC Ur Squamous Epith Cells Urine Bacteria Hyaline Casts COVID-19 ([facility]) COVID-19 Clin Com Influenza Type A (MARQUEZ) Influenza Type B (MARQUEZ) Influenza A & B Note Imaging Radiologist's Impressions: Impressions Abdomen/Pelvis CT 12/10/22 12:52 IMPRESSION: Worsening of diverticulitis at the junction of the descending colon and sigmoid colon. There is increased inflammation in the surrounding fat but no extraluminal air or drainable fluid collection is seen. Fleischner guidelines were followed. 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 #Acute diverticulitis -Inititally treated with augmentin x 7 days on 11/23. Repeat CT abd/pelvis showing worsening diverticulitis, fat stranding, without abscess or perforation -Admit to M/S -IV levaquin 750mg QD and metronidazole 500mg TID x7 days (start 12/10) -Clear liquids -Ondansetron prn -Pain management with oxycodone, ketorolac, hydromorphone not using pain scale -consider GI consult if no improvement # Crohn's disease-without acute exacerbation -due for Entyvio December -Continue budesonide, lomotil prn #depression/anxiety -continue home meds DVT prophylaxis- lovenox Full code Patient requires inpatient stay of at least 2 midnights for management of acute diverticulitis having failed outpatient antibiotics now requiring IV antibiotics, IVF, and gradual advancement of diet Time Spent With Patient Time: Total time managing care of this patient today ____ minutes. Quality Stroke Does the patient have a stroke diagnosis?: No VTE Prior VTE?: No VTE Risk Level:: Medical - moderate - high VTE Device Contraindication: Treatment Not Indicated VTE Drug Contraindication: N/A - Med Ordered
[2022-12-10] MEDS: 0.9 % Sodium Chloride Flush 3 ML SYRINGE IVFLUSH ×2 (16:09→23:24)
[2022-12-10] MEDS: metroNIDAZOLE/NS 500 MG/100 ML PIGGYBACK 100 MG IV ×2 (16:09→23:24)
--- NOTE | 2022-12-10 16:26 | PHA.MEDREC ---
Pharmacy Consult ? Medication Reconciliation Pharmacy has completed the medication reconciliation.
[2022-12-10] MEDS: HYDROmorphone HCl 1 MG/ML SYRINGE 0.25 MG IVPUSH ×2 (16:36→20:46)
[2022-12-10] MEDS: 0.9 % Sodium Chloride 1,000 ML 100 ML IVCONT (16:36)
[2022-12-10] MEDS: Enoxaparin Sodium 40 MG/0.4 ML SYRINGE SUBCUT (16:36)
--- NOTE | 2022-12-10 16:47 | PC.NURSE ---
patient a&ox3, pt medicated for pain per order, ivf started per order, iv antibiotics running per order, vitals continue to be stable, call mckeon within reach, will continue to monitor.
[2022-12-10 17:55] VITALS: BMI 33.9
--- NOTE | 2022-12-10 17:55 | PC.NURSE ---
Addendum entered by January Pittman RN 12/10/22 18:25: admission assessment complete, pt scoring as a low fall risk - assessed walking to the bathroom with a steady gait. pt c/o nausea, medication offered but pt declined states she want to try to eat first . Dinner at the bedside, clear liquid diet order. Safety precautions in place, pt oriented to room, call mckeon within reach - encouraged to call for assistance Original Note: report received from Batsheva GUNN at 1655, pt up to floor at 1755.
[2022-12-10] MEDS: levoFLOXacin/D5W 750 MG/150 ML PIGGYBACK 100 MG IV (18:14)
[2022-12-10 18:17] VITALS: BP 140/60; PULSE 85; RESP 18; TEMP 37; O2SAT 100
[2022-12-10 19:24] VITALS: BP 129/60; PULSE 83; RESP 18; TEMP 37; O2SAT 100
[2022-12-10] MEDS: Zolpidem Tartrate 5 MG TABLET PO (20:45)
[2022-12-10] MEDS: LORazepam 1 MG TABLET PO (20:46)
[2022-12-11] MEDS: HYDROmorphone HCl 1 MG/ML SYRINGE 0.25 MG IVPUSH ×5 (01:01→22:46)
[2022-12-11 03:26] VITALS: BP 116/63; PULSE 90; RESP 20; TEMP 36.8; O2SAT 97
[2022-12-11] MEDS: 0.9 % Sodium Chloride 1,000 ML 100 ML IVCONT ×3 (03:28→22:47)
[2022-12-11] MEDS: Omeprazole 20 MG CAPSULE.DR PO (05:22)
[2022-12-11] MEDS: ondansetron HCL 4 MG/2 ML VIAL IVPUSH ×4 (05:22→22:47)
[2022-12-11 06:23] LABS: MANUAL DIFF FLAG NO
[2022-12-11 06:39] LABS: Basophils Percent Auto 0.3 % (0-2); Eosinophils Absolute Auto 0.1 X10*3/uL (0.0-0.4); Eosinophils Percent Auto 0.9 % (0-4); Hematocrit 39.5 % (37.0-47.0); Hemoglobin 12.8 g/dl (12.0-16.0); Imm Gran Abs Auto 0.04 X10*3/uL (0.00-0.03); Imm Gran Pct Auto 0.5 % (0.0-0.4); Lymphocytes Absolute Auto 1.3 X10*3/uL (1.2-4.9); Mean Corpuscular HGB Conc 32.4 g/dl (31.0-35.0); Mean Corpuscular Hemoglobin 30.2 pg (27.0-33.0); Mean Corpuscular Volume 93.2 fL (80.0-98.0); Mean Platelet Volume 10.2 fL (9.4-12.3); Monocytes Absolute Auto 0.7 X10*3/uL (0.1-1.2); Monocytes Percent Auto 8.5 % (2-11); Neutrophils Absolute Auto 5.6 x10*3/uL (2.0-8.3); Neutrophils Percent Auto 72.8 % (45-73); Platelet Count 280 X10*3/uL (160-400); Red Blood Count 4.24 X10*6/uL (4.20-5.50); Red Cell Distribution Width 13.9 % (11.0-16.0); White Blood Count 7.6 X10*3/uL (4.8-10.8)
[2022-12-11 07:21] VITALS: BP 129/65; PULSE 72; RESP 20; TEMP 36.4; O2SAT 99
[2022-12-11 07:26] LABS: Anion Gap 12 (12-20); Blood Urea Nitrogen 5 mg/dL (9-16); Calcium 8.4 mg/dL (8.4-10.2); Carbon Dioxide 23 mmol/L (22-29); Chloride 107 mmol/L (96-108); Creatinine Clr Calc Pharmacy 98.4; Estimated Glomerular Filt Rate > 60; Glucose Random 83 mg/dL (60-115); Sodium 138 mmol/L (135-145)
--- NOTE | 2022-12-11 07:56 | HO.PM.IMPN ---
Subjective Subjective Date of Service: 12/11/22 Review of Systems Follow-up diverticulitis Still with diffuse abdominal pain, mostly on the left Complaints of vulvar irritation vaginal itching Poor appetite Physical Exam Vital Signs: Vital Signs: Last Vital Signs Temp 97.6 F 12/11/22 07:21 Pulse 72 12/11/22 07:21 Resp 20 12/11/22 07:21 BP 129/65 12/11/22 07:21 Pulse Ox 99 12/11/22 07:21 O2 Del Method 12/11/22 07:21 BMI result Body Mass Index 33.9 Appearing in no acute distress lung sounds are clear to auscultation heart regular rate rhythm, clear S1, S2 positive bowel sounds, abdomen is soft, tender to LLQ neuro patient is alert x3, no focal deficits Objective Data Active Medications Acetaminophen (Acetaminophen 325 Mg Tablet) 650 mg PO Q6H PRN PRN Reason: Pain, Mild (Pain Scale 1-3) Clonidine HCl (Clonidine Hcl 0.1 Mg Tablet) 0.1 mg PO TID PRN; Protocol PRN Reason: for anxiety Enoxaparin Sodium (Enoxaparin Sodium 40 Mg/0.4 Ml Syringe) 40 mg SUBCUT Q24H [facility] Last Admin: 12/10/22 16:36 Dose: 40 mg Documented By: EBEN Escitalopram Oxalate (Escitalopram Oxalate 10 Mg Tablet) 10 mg PO DAILY [facility] Hydromorphone HCl (Hydromorphone Hcl 1 Mg/Ml Syringe) 0.25 mg IVPUSH Q4H PRN; Protocol PRN Reason: Pain, Severe (Pain Scale 7-10) Last Admin: 12/11/22 05:22 Dose: 0.25 mg Documented By: ROSAMARIA Levofloxacin (Levaquin) 750 mg in 150 mls @ 100 mls/hr IV Q24H [facility] Last Infusion: 12/10/22 20:52 Dose: 0 mls/hr Documented By: ROSAMARIA Metronidazole (Flagyl) 500 mg in 100 mls @ 100 mls/hr IV Q8H [facility] Last Infusion: 12/11/22 00:26 Dose: 0 mls/hr Documented By: ROSAMARIA Sodium Chloride (Ns) 1,000 mls @ 100 mls/hr IVCONT .Q10H [facility] Last Admin: 12/11/22 03:28 Dose: 100 mls/hr Documented By: ROSAMARIA Ketorolac Tromethamine (Ketorolac Tromethamine 30 Mg/Ml Vial) 30 mg IVPUSH Q6H PRN PRN Reason: Pain, Moderate (Pain Scale 4-6 Stop: 12/15/22 15:29 Lorazepam (Lorazepam 1 Mg Tablet) 1 mg PO BID [facility] Last Admin: 12/10/22 20:46 Dose: 1 mg Documented By: ROSAMARIA Non-Formulary Medication (Budesonide) 9 mg PO DAILY [facility] Non-Formulary Medication (Mesalamine) 500 mg PO QID [facility] Omeprazole (Omeprazole 20 Mg Capsule.Dr) 20 mg PO DAILY@0630 [facility] Last Admin: 12/11/22 05:22 Dose: 20 mg Documented By: ROSAMARIA Ondansetron HCl (Ondansetron Hcl 4 Mg/2 Ml Vial) 4 mg IVPUSH Q8H PRN PRN Reason: Nausea and Vomiting Last Admin: 12/11/22 05:22 Dose: 4 mg Documented By: ROSAMARIA Oxycodone HCl (Oxycodone Hcl Immed Release 5 Mg Tablet) 5 mg PO Q6H PRN PRN Reason: Pain, Moderate (Pain Scale 4-6 Sodium Chloride (0.9 % Sodium Chloride Flush 3 Ml Syringe) 3 ml IVFLUSH QSHIFT [facility] Last Admin: 12/10/22 23:24 Dose: 3 ml Documented By: ROSAMARIA Zolpidem Tartrate (Zolpidem Tartrate 5 Mg Tablet) 5 mg PO BEDTIME [facility] Last Admin: 12/10/22 20:45 Dose: 5 mg Documented By: ROSAMARIA Labs 12/11/22 05:49 12/11/22 05:49 Labs: Laboratory Results - last 24 hr 12/10/22 12/10/22 12/10/22 10:49 10:49 10:49 MCV 92.2 MCH 30.4 MCHC 32.9 RDW 14.0 Plt Count 286 MPV 9.7 Immature Gran % (Auto) 0.3 Neut % (Auto) 81.1 H Lymph % (Auto) 10.2 L [place] % (Auto) 7.4 Eos % (Auto) 0.7 Baso % (Auto) 0.3 Lymph # (Auto) 1.2 Baldwin # (Auto) 0.9 Eos # (Auto) 0.1 Baso # (Auto) 0.0 Abs Immat Gran (auto) 0.04 H Absolute Neuts (auto) 9.7 H Absolute Nucleated RBC 0.000 Nucleated RBC % (auto) 0.0 PT 12.9 INR 1.1 Anion Gap 14 Estim Creat Clear Calc 89.5 Estimated GFR > 60 Random Glucose 117 H Lactic Acid Calcium 9.4 Magnesium 1.6 Total Bilirubin 0.3 Direct Bilirubin < 0.2 AST 11 ALT 8 Alkaline Phosphatase 86 Total Protein 6.4 L Albumin 3.5 Lipase 10 Urine Color Urine Appearance Urine pH Ur Specific [place] Urine Protein Urine Glucose (UA) Urine Ketones Urine Blood Urine Nitrite Ur Leukocyte Esterase Urine RBC Urine WBC Ur Squamous Epith Cells Urine Bacteria Hyaline Casts COVID-19 ([facility]) COVID-19 Clin Com Influenza Type A (MARQUEZ) Influenza Type B (MARQUEZ) Influenza A & B Note 12/10/22 12/10/22 12/10/22 10:49 10:49 11:28 MCV MCH MCHC RDW Plt Count MPV Immature Gran % (Auto) Neut % (Auto) Lymph % (Auto) Baldwin % (Auto) Eos % (Auto) Baso % (Auto) Lymph # (Auto) Baldwin # (Auto) Eos # (Auto) Baso # (Auto) Abs Immat Gran (auto) Absolute Neuts (auto) Absolute Nucleated RBC Nucleated RBC % (auto) PT INR Anion Gap Estim Creat Clear Calc Estimated GFR Random Glucose Lactic Acid Calcium Magnesium Total Bilirubin Direct Bilirubin AST ALT Alkaline Phosphatase Total Protein Albumin Lipase Urine Color Yellow Urine Appearance Cloudy Urine pH 5.5 Ur Specific [place] 1.015 Urine Protein Negative Urine Glucose (UA) Negative Urine Ketones Negative Urine Blood Small (1+) H Urine Nitrite Negative Ur Leukocyte Esterase Negative Urine RBC 0-2 Urine WBC 0-5 Ur Squamous Epith Cells >20 Urine Bacteria Trace Hyaline Casts 0-2 COVID-19 ([facility]ZO) Negative COVID-19 Clin Com See Note Influenza Type A (MARQUEZ) Negative Influenza Type B ([facility]QUEZ) Negative Influenza A & B Note See Note 12/10/22 12/11/22 12/11/22 15:04 05:49 05:49 MCV 93.2 MCH 30.2 MCHC 32.4 RDW 13.9 Plt Count 280 MPV 10.2 Immature Gran % (Auto) 0.5 H Neut % (Auto) 72.8 Lymph % (Auto) 17.0 L Baldwin % (Auto) 8.5 Eos % (Auto) 0.9 Baso % (Auto) 0.3 Lymph # (Auto) 1.3 Baldwin # (Auto) 0.7 Eos # (Auto) 0.1 Baso # (Auto) 0.0 Abs Immat Gran (auto) 0.04 H Absolute Neuts (auto) 5.6 Absolute Nucleated RBC 0.000 Nucleated RBC % (auto) 0.0 PT INR Anion Gap 12 Estim Creat Clear Calc 98.4 Estimated GFR > 60 Random Glucose 83 Lactic Acid 1.0 Calcium 8.4 D Magnesium Total Bilirubin Direct Bilirubin AST ALT Alkaline Phosphatase Total Protein Albumin Lipase Urine Color Urine Appearance Urine pH Ur Specific [place] Urine Protein Urine Glucose (UA) Urine Ketones Urine Blood Urine Nitrite Ur Leukocyte Esterase Urine RBC Urine WBC Ur Squamous Epith Cells Urine Bacteria Hyaline Casts COVID-19 ([facility]) COVID-19 Clin Com Influenza Type A (MARQUEZ) Influenza Type B (MARQUEZ) Influenza A & B Note Assessment and Plan (1) Diverticulitis: Status: Acute Plan 47-year-old female with history of anxiety, Crohn's disease, 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's disease, history of diverticulitis, depression, history of renal cell carcinoma, lumbar degenerative disc disease, migraine, bilateral osteoarthritis of the hips, and obesity admitted for acute diverticulitis having failed outpt abx. Acute diverticulitis Inititally treated with augmentin x 7 days on 11/23. Repeat CT abd/pelvis showing worsening diverticulitis, fat stranding, without abscess or perforation continue IV levaquin 750mg QD and metronidazole 500mg TID x7 days Clear liquids for now Pain management with oxycodone, ketorolac, hydromorphone not using pain scale and antiemetics consult Dr. Alexis (o/p GI provider) Vaginal itching and vulvar irritation possible yeast infection from antibiotic use add nystatin powder to inner thigh and vulvar irritation diflucan 150mg single dose Leukocytosis. resolved secondary to acute diverticulitis Crohn's disease-without acute exacerbation due for Entyvio week of December Continue budesonide, lomotil prn Depression/anxiety continue home meds GERD PPI Obesity. BMI 33.9 Discussed importance of weight management as this may be contributing to worsening of other comorbidities DVT prophylaxis- lovenox Attending Dr. Fajardo Full code Continued hospitalization for treatment of acute diverticulitis having failed outpatient antibiotics now requiring IV antibiotics, IVF, and gradual advancement of diet Time Spent With Patient Time: Total time managing care of this patient today ____ minutes. Quality Stroke Does the patient have a stroke diagnosis?: No VTE Prior VTE?: No VTE Risk Level:: Medical - moderate - high VTE Device Contraindication: Treatment Not Indicated VTE Drug Contraindication: N/A - Med Ordered
[2022-12-11] MEDS: LORazepam 1 MG TABLET PO ×3 (08:30→20:13)
[2022-12-11] MEDS: oxyCODONE HCl Immed Release 5 MG TABLET PO (08:30)
[2022-12-11] MEDS: metroNIDAZOLE/NS 500 MG/100 ML PIGGYBACK 100 MG IV ×3 (08:30→22:45)
[2022-12-11] MEDS: Escitalopram Oxalate 10 MG TABLET PO (08:30)
--- NOTE | 2022-12-11 09:42 | MHC.CM.PN ---
[id number] DX Diverticulitis PMH Chrons She lives with her 2 teens. She is independent all functional mobility. HCP on file. VAX x3. DP home self care. Patient will arrange for transportation. She has been receiving IV infusion services QMonth in Short stay. Patient stated that per Dr Alexis the infusion may be discontinued r/t sub optimal patient response to medication.
[2022-12-11] MEDS: Fluconazole 150 MG TABLET PO (10:37)
[2022-12-11] MEDS: Nystatin Powder 15 GM BOTTLE 1 APPL TOPICAL ×3 (10:37→20:16)
[2022-12-11] MEDS: Enoxaparin Sodium 40 MG/0.4 ML SYRINGE SUBCUT (15:04)
[2022-12-11 16:00] VITALS: BP 129/60; PULSE 98; RESP 18; TEMP 37.1; O2SAT 98
[2022-12-11] MEDS: levoFLOXacin/D5W 750 MG/150 ML PIGGYBACK 100 MG IV (17:27)
--- NOTE | 2022-12-11 18:29 | PM.EVENT ---
Event Note Date of Service: 12/11/22 Event Note: GI Consult-Full note dictated Imp: 47 yo female with underlying Crohn's primarily of the TI and perianal area maintained on Entyvio infusions Q 4 weeks(last infusion was beginning of November), budesonide, Pentasa, dicyclomine, Zofran, and omeprazole. She is now presenting with diverticulitis with worsening CT and pain after treatment with outpatient antibiotics earlier this month. However, there are no signs of complication such as an abscess. perforation, nor obstruction on CT from yesterday. Currently she is afebrile and her abdomen is soft with +BS, but with some guarding and tenderness LLQ > RLQ. Her most recent colonoscopy in 2019 was negative for any Crohn's colitis. Rec: Continue IV antibiotics, clear liquids, supportive care, IV PPI, and observation. F/U labs in the AM. Continue her outpatient Pentasa and Budesonide. I placed a surgical consult in the event things do not improve or if they worsen. D/W patient in detail. Thanks. Time Spent With Patient Time: Total time managing care of this patient today ____ minutes.
[2022-12-11] MEDS: Pantoprazole Sodium 40 MG/10 ML VIAL IVPUSH (18:38)
[2022-12-11 19:29] VITALS: BP 147/85; PULSE 83; RESP 20; TEMP 36.7; O2SAT 96
[2022-12-11] MEDS: Mesalamine 250 MG CAPSULE.ER 1000 MG PO (20:13)
[2022-12-11] MEDS: Zolpidem Tartrate 5 MG TABLET PO (20:13)
[2022-12-11] MEDS: 0.9 % Sodium Chloride Flush 3 ML SYRINGE IVFLUSH (23:28)
[2022-12-12] VITALS (9 sets, daily range): BP systolic 134–160; BP diastolic 74–89; PULSE 67–88; RESP 12–19; TEMP 36.3–37.1; O2SAT 97–98
[2022-12-12] MEDS: ondansetron HCL 4 MG/2 ML VIAL IVPUSH ×5 (04:05→22:31)
[2022-12-12] MEDS: HYDROmorphone HCl 1 MG/ML SYRINGE 0.25 MG IVPUSH ×5 (04:05→22:31)
[2022-12-12] MEDS: Pantoprazole Sodium 40 MG/10 ML VIAL IVPUSH ×2 (04:05→15:51)
--- NOTE | 2022-12-12 05:41 | CONS_ITS ---
DATE OF SERVICE: 12/11/2022 REASON FOR CONSULTATION: Diverticulitis, abdominal pain, Crohn disease. HISTORY OF PRESENT ILLNESS: The patient is a 47-year-old female well known to me with underlying history of Crohn disease involving primarily the terminal ileum and perianal area. Her most recent medical regimen for the Crohn disease has included Entyvio infusions every 4 weeks, Pentasa 1 g q.i.d., budesonide 9 mg orally daily, omeprazole, dicyclomine, and Zofran. Her Crohn disease has been refractory to medical therapy requiring frequent admissions and outpatient treatments with steroids. She had been on Humira in 2020, but stopped that due to development of antibodies and a nondetectable Humira level. She was started on Entyvio infusions in February 2022 and this was increased due to a low level on the every 8-week infusion regimen. Up until recently, she was doing fairly well with her last use of prednisone being over the summer of 2021, although she has been on budesonide to hopefully keep things stable without having to go back on prednisone. Her Entyvio infusions were increased every 4 weeks as of August 2022. Earlier this month, she began having some increasing abdominal pain and looser than usual bowel movements. She went to ER in early November and CT scan described a localized area of inflammation in the proximal sigmoid colon consistent with an area of diverticulosis and diverticulitis. This was a new finding for her. Her last colonoscopy in 2018 did not reveal any sign of Crohn colitis but did reveal active ileitis. She was treated with outpatient Augmentin after her ER visit and does report that definitely helped her feel better. When I saw her on December 04 in the office, she was still having some low grade discomfort but generally was feeling much better. She had been scheduled for a followup CT scan toward the end of November so as to be sure things were improving and stable prior to her next Entyvio infusion in early December. However, over the past 2 or 3 days, she has had recurring and increasing abdominal pain both on the left lower quadrant and right lower quadrant. She has had some nausea and vomiting. She has noticed some looser bowel movements. She denies any urinary symptoms. She denies any hematemesis, coffee-ground emesis, melena, nor hematochezia other than small amounts of bright red blood. She came to the ER where a CT scan showed the area of the inflammation in the sigmoid colon as being somewhat worse but without any abscess, perforation, nor obstruction. She was admitted yesterday. Over the course of last 24 hours, she has been on IV antibiotics and feels her abdomen is somewhat softer but still having a fair amount of pain. She is still nauseated and has had some vomiting today. She has been afebrile. Prior to this month, she has had any history of diverticulitis. MEDICATIONS: Her medications at home included the above described regimen for the Crohn disease with Entyvio infusions every 4 weeks, Pentasa 1 g q.i.d., budesonide 9 mg daily, omeprazole, dicyclomine, and Zofran. Her current medications here in the hospital include IV metronidazole, IV Levaquin, Dilaudid p.r.n., Lexapro, Lovenox, clonidine, acetaminophen, Zofran, omeprazole, oxycodone, Ambien. PAST MEDICAL HISTORY: Crohn disease with primarily involvement of terminal ileum and perianal area, although at times did have some findings of mild colitis in the sigmoid colon and proximal rectum. However, the colonoscopy in 2019 did not reveal any sign of colitis. She has had history of reflux with an upper endoscopy in 2016 revealing a small hiatal hernia, but no esophagitis. 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 She had a right renal lesion treated with cryoablation in 2014 without any definitive carcinoma found. History of depression. History of hypertension. B12 deficiency. COVID infection in 2020. Diverticulitis as above. PAST SURGICAL HISTORY: Includes perianal disease with fistula treated with sphincterotomy and anal dilatation at [facility] in [place]. That was done in . She has had left hip surgery in 1993 with placement of rods in [address] Messer. There was no history of diabetes, heart disease, no stroke. SOCIAL HISTORY: She does not smoke nor use any significant amounts of alcohol. 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 FAMILY HISTORY: Father has Crohn disease. There was no colorectal cancer in the family. REVIEW OF SYSTEMS: CONSTITUTIONAL: She has been feeling poorly with diminished appetite and fatigue. CARDIAC: No chest pain. PULMONARY: No coughing, no hemoptysis. GI: As above. URINARY: No dysuria, no hematuria. PHYSICAL EXAMINATION: GENERAL: The patient is an alert, cooperative pleasant female. She appears uncomfortable. SKIN: Warm and dry. HEENT: Anicteric sclerae. Moist mucous membranes. NECK: Supple. CARDIAC: Normal S1 and S2. ABDOMEN: Soft. Normal bowel sounds. There is some guarding in the left lower quadrant. There is no mass, no rebound. LABORATORY DATA: White count on admission was 12.0 and today 7.6. Hemoglobin 12.8, platelets 280,000. PT 12.9, INR 1.1. Normal electrolytes. BUN 5, creatinine 0.7. LFTs and lipase were normal. Her CT scan described an increased area of inflammation at the area of the junction of the descending colon, sigmoid colon as compared to the study from November 23. There was no evidence of any complications such as free air, abscess, no obstruction. IMPRESSION: Given the patient's clinical history, it seems quite consistent with diverticulitis as opposed to a flare of the Crohn disease. She does appear to have had some clinical improvement after 24 hours of IV antibiotics, and I will therefore continue that line of treatment along with supportive care. I would not advance her beyond clear liquid diet. I will continue following her laboratories and I have also placed a surgical consult in the event she either worsens or does not improve. At this point, I do not think there is any indication for surgery, but again I think it will be a good idea to have the surgeon involved sooner rather than later in the event things do not go in the right direction. At this point, I will continue her outpatient regimen for the Crohn disease with the Pentasa and budesonide. Her Entyvio will have to be held during this acute infectious process. I do not think she needs any IV steroids as I do not think it is her Crohn disease that has flared up here, and it will be best to avoid that during what appears to be an acute case of diverticulitis with ongoing infection and inflammation. This has all been discussed with the patient in detail and she is comfortable with this plan. MD ROGER Burrell/TALIB / [id number]
[2022-12-12 06:49] LABS: MANUAL DIFF FLAG NO
[2022-12-12 06:56] LABS: Basophils Percent Auto 0.3 % (0-2); Eosinophils Absolute Auto 0.1 X10*3/uL (0.0-0.4); Eosinophils Percent Auto 1.6 % (0-4); Hematocrit 38.1 % (37.0-47.0); Hemoglobin 12.4 g/dl (12.0-16.0); Imm Gran Abs Auto 0.03 X10*3/uL (0.00-0.03); Imm Gran Pct Auto 0.4 % (0.0-0.4); Lymphocytes Absolute Auto 1.4 X10*3/uL (1.2-4.9); Lymphocytes Percent Auto 20.5 % (20-40); Mean Corpuscular HGB Conc 32.5 g/dl (31.0-35.0); Mean Platelet Volume 9.7 fL (9.4-12.3); Monocytes Absolute Auto 0.5 X10*3/uL (0.1-1.2); Monocytes Percent Auto 7.8 % (2-11); Neutrophils Absolute Auto 4.6 x10*3/uL (2.0-8.3); Neutrophils Percent Auto 69.4 % (45-73); Platelet Count 267 X10*3/uL (160-400); Red Blood Count 4.14 X10*6/uL (4.20-5.50); Red Cell Distribution Width 13.7 % (11.0-16.0); White Blood Count 6.7 X10*3/uL (4.8-10.8)
[2022-12-12 07:15] LABS: Alanine Aminotransferase 7 U/L (0-31); Albumin Level 3.1 g/dL (3.5-5.0); Alkaline Phosphatase 72 U/L (39-117); Aspartate Amino Transferase 13 U/L (5-31); Bilirubin Direct < 0.2 mg/dL (0.0-0.5); Bilirubin Total 0.3 mg/dL (0.0-1.0); C Reactive Protein 8.52 mg/dL (< or = 0.50); Total Protein 5.8 g/dL (6.5-8.0)
[2022-12-12 07:33] LABS: Erythrocyte Sedimentation Rate 50 MM/HR (0-20)
[2022-12-12] MEDS: metroNIDAZOLE/NS 500 MG/100 ML PIGGYBACK 100 MG IV ×2 (08:17→15:48)
[2022-12-12] MEDS: 0.9 % Sodium Chloride Flush 3 ML SYRINGE IVFLUSH ×3 (08:17→20:16)
--- NOTE | 2022-12-12 08:23 | P.CONGS_ITS ---
History of Present Illness Consult details Consult date: 12/12/22 Narrative: 47-year-old female referred for acute diverticulitis. She was admitted to the hospital 2 days ago because of left lower quadrant abdominal pain. She had a CAT scan showing significant inflammatory changes surrounding the proximal sigmoid at the junction with the descending colon. She actually was in the ER last 11/23/2021 for a similar complaint. She had a CAT scan at that time as well showing inflammatory changes consistent with acute diverticulitis on the same segment. She was sent home on oral antibiotics and she says that she actually improved although did have some low-grade pain. However over a week ago, she was diagnosed to have a bacterial infection of the genitourinary tract. She says she was started on Flagyl and starting about 5 days ago, she had recurrence of pain on the left lower quadrant. She also describes nausea. She has had no fever. Her CAT scan 2 days ago in the ER showed that there were more inflammatory changes compared to her previous CAT scan. She also does have diagnosis of Crohn's disease in the terminal ileum. She is being followed by Dr. Alexis and is on Entyvio which seems to have had provided good control of her Crohn's disease. She does state that her pain is episodic, but she says that her nausea is what bothers her more now. Review of Systems Constitutional: Constitutional: Denies chills and Denies fever(s) Cardiovascular: Cardiovascular: Denies chest pain, Denies dyspnea and Denies d yspnea on exertion Respiratory: Respiratory: Denies cough, Denies dyspnea and Denies dyspnea on exertion Gastrointestinal: Gastrointestinal: Denies hematochezia, Denies change in bowel habits and Reports nausea Genitourinary: Genitourinary: Denies hematuria Musculoskeletal: Musculoskeletal: Denies back pain and Denies limited range of motion Neurologic: Denies focal weakness and Denies convulsions Psychiatric: Psychiatric: Denies depression and Denies mood swings PMFSH Past Medical History 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 History of renal cell cancer (~2014) Insomnia Intractable nausea and vomiting Lumbar degenerative disc disease Migraine Obesity (BMI 30-39.9) Osteoarthritis of hips, bilateral Family History Family History Father Crohn disease Migraine Cancer Mother HTN (hypertension) Vertigo Cervical cancer Maternal Grandmother HTN (hypertension) Hyperlipidemia Diabetes mellitus Paternal Grandmother Diabetes mellitus Other Mental health problem Surgical History Surgical History History of arthroplasty (~01/2012) History of cryosurgery (~04/20/15) History of esophagogastroduodenoscopy (EGD) History of intestinal surgery History of removal of calculus of renal pelvis through percutaneous nephrostomy (~10/2015) Hx of colonoscopy Social History Social History Household Members: Family and Children Housing: House Do you presently have visiting nurse or other home services: No Alcohol intake: current Alcohol intake frequency: holidays/special occasions only Patient Tobacco Use Status: Former Tobacco user Tobacco use type: Cigarette e-Cigarette/Vaping Use: Former Use Second Hand Smoke Exposure: No Advance Directives Date on File: 06/15/22 service: No Current occupational status: unemployed Gender identity: Female Cognitive needs: No Hearing needs: No Vision needs: Yes (glasses) Meds Allergies Allergy/AdvReac Type Severity Reaction Status Date / Time meperidine [From Demerol] Allergy Severe SWELLING,RASH,THROAT Verified 12/10/22 09:57 CLOSES latex [LATEX] Allergy Mild RASH Verified 12/10/22 09:57 codeine [Codeine] AdvReac Intermediate NAUSEA/VOMITING, Verified 12/10/22 09:57 GI upset/vomiting trazodone AdvReac Mild Anxiety Verified 12/10/22 17:40 Fish Containing Products AdvReac Unknown NAUSEA/VOMI Verified 12/10/22 09:57 [Fish Product Derivatives] TING Active Medications: Current Medications Acetaminophen (Acetaminophen 325 Mg Tablet) 650 mg PO Q6H PRN PRN Reason: Pain, Mild (Pain Scale 1-3) Clonidine HCl (Clonidine Hcl 0.1 Mg Tablet) 0.1 mg PO TID PRN; Protocol PRN Reason: for anxiety Enoxaparin Sodium (Enoxaparin Sodium 40 Mg/0.4 Ml Syringe) 40 mg SUBCUT Q24H [facility]ENJAMIN Last Admin: 12/11/22 15:04 Dose: 40 mg Escitalopram Oxalate (Escitalopram Oxalate 10 Mg Tablet) 10 mg PO DAILY [facility] Last Admin: 12/11/22 08:30 Dose: 10 mg Hydromorphone HCl (Hydromorphone Hcl 1 Mg/Ml Syringe) 0.25 mg IVPUSH Q4H PRN; Protocol PRN Reason: Pain, Severe (Pain Scale 7-10) Last Admin: 12/12/22 04:05 Dose: 0.25 mg Levofloxacin (Levaquin) 750 mg in 150 mls @ 100 mls/hr IV Q24H [facility] Stop: 12/16/22 16:59 Last Infusion: 12/11/22 19:44 Dose: Infused Metronidazole (Flagyl) 500 mg in 100 mls @ 100 mls/hr IV Q8H [facility] Stop: 12/16/22 23:59 Last Infusion: 12/11/22 23:52 Dose: Infused Sodium Chloride (Ns) 1,000 mls @ 100 mls/hr IVCONT .Q10H [facility] Last Admin: 12/11/22 22:47 Dose: 100 mls/hr Ketorolac Tromethamine (Ketorolac Tromethamine 30 Mg/Ml Vial) 30 mg IVPUSH Q6H PRN PRN Reason: Pain, Moderate (Pain Scale 4-6 Stop: 12/15/22 15:29 Lorazepam (Lorazepam 1 Mg Tablet) 1 mg PO BID [facility] Last Admin: 12/11/22 20:13 Dose: 1 mg Lorazepam (Lorazepam 1 Mg Tablet) 1 mg PO DAILY PRN PRN Reason: anxiety Last Admin: 12/11/22 15:06 Dose: 1 mg Mesalamine (Mesalamine 250 Mg Capsule.Er) 1,000 mg PO QID [facility] Last Admin: 12/11/22 20:13 Dose: 1,000 mg Non-Formulary Medication (Budesonide) 9 mg PO DAILY [facility] Nystatin (Nystatin Powder 15 Gm Bottle) 1 appl TOPICAL TID [facility]; Protocol Last Admin: 12/11/22 20:16 Dose: 1 appl Ondansetron HCl (Ondansetron Hcl 4 Mg/2 Ml Vial) 4 mg IVPUSH Q4H PRN PRN Reason: Nausea and Vomiting Last Admin: 12/12/22 04:05 Dose: 4 mg Oxycodone HCl (Oxycodone Hcl Immed Release 5 Mg Tablet) 5 mg PO Q6H PRN PRN Reason: Pain, Moderate (Pain Scale 4-6 Last Admin: 12/11/22 08:30 Dose: 5 mg Pantoprazole Sodium (Pantoprazole Sodium 40 Mg/10 Ml Vial) 40 mg IVPUSH BID@0630,1630 [facility] Last Admin: 12/12/22 04:05 Dose: 40 mg Sodium Chloride (0.9 % Sodium Chloride Flush 3 Ml Syringe) 3 ml IVFLUSH QSHIFT [facility] Last Admin: 12/11/22 23:28 Dose: 3 ml Zolpidem Tartrate (Zolpidem Tartrate 5 Mg Tablet) 5 mg PO BEDTIME [facility] Last Admin: 12/11/22 20:13 Dose: 5 mg Home Medications Medication Instructions Recorded Confirmed Last Taken Type levonorgestrel 20 mcg/24 hours (8 1 device intrauterine ONCE 10/04/20 12/10/22 Unknown History yrs) 52 mg intrauterine device (Mirena) omeprazole 20 mg capsule,delayed 20 mg PO DAILY 12/05/20 12/10/22 12/09/22 History release diphenoxylate-atropine 2.5 1 - 2 tab PO Q6H PRN Diarrhea 05/04/22 12/10/22 12/09/22 History mg-0.025 mg tablet dicyclomine 10 mg capsule 10 mg PO BID PRN Gastrointestinal 07/17/22 12/10/22 12/09/22 History Spasms Or Cramping vedolizumab 300 mg intravenous 300 mg IV Q4W 10/16/22 12/10/22 11/22/22 History solution (Entyvio) budesonide 3 mg 9 mg PO DAILY 11/14/22 12/10/22 12/09/22 History capsule,delayed,extended release mesalamine 500 mg capsule,extended 500 mg PO QID 11/14/22 12/10/22 12/09/22 History release Physical Exam Vital Signs: Vital Signs: Last Vital Signs Temp 97.8 F 12/12/22 07:39 Pulse 88 12/12/22 07:39 Resp 12 12/12/22 07:39 BP 156/79 H 12/12/22 07:39 Pulse Ox 97 12/12/22 07:39 O2 Del Method 12/12/22 07:39 BMI result Body Mass Index 33.9 Const: Other: Appears very anxious General: no acute distress Orientation/consciousness: patient oriented x3 Neck: Neck: Yes no lymphadenopathy Resp: Auscultation: clear to auscultation bilaterally Cardio: Rhythm: regular rhythm GI: Other: Some tenderness on the left lower quadrant no guarding rebound Palpation (GI): Soft to palpation, Tenderness to palpation present (GI) and no guarding Neuro: General: patient oriented x3 Results Labs 12/12/22 06:42 12/11/22 05:49 Labs: Abnormal lab results 12/12/22 12/12/22 12/12/22 Range/Units 06:42 06:42 06:42 RBC 4.14 L (4.20-5.50) X10*6/uL ESR 50 H (0-20) MM/HR C-Reactive Protein 8.52 H (< or = 0.50) mg/dL Total Protein 5.8 L (6.5-8.0) g/dL Albumin 3.1 L (3.5-5.0) g/dL Short CBC 12/12/22 Range/Units 06:42 WBC 6.7 (4.8-10.8) X10*3/uL Hgb 12.4 (12.0-16.0) g/dl Hct 38.1 (37.0-47.0) % Plt Count 267 (160-400) X10*3/uL Liver Function 12/12/22 Range/Units 06:42 Total Bilirubin 0.3 (0.0-1.0) mg/dL Direct Bilirubin < 0.2 (0.0-0.5) mg/dL AST 13 (5-31) U/L ALT 7 (0-31) U/L Alkaline Phosphatase 72 (39-117) U/L Albumin 3.1 L (3.5-5.0) g/dL Urine 12/10/22 Range/Units 11:28 Urine Color Yellow Urine Appearance Cloudy Urine pH 5.5 (5.0-9.0) Ur Specific [place] 1.015 (1.005-1.025) Urine Protein Negative (Neg-Trace) mg/dL Urine Glucose (UA) Negative (Negative) mg/dL All other labs normal. Imaging Additional studies: Laboratory Results WBC 6.7 X10*3/uL (4.8-10.8) 12/12/22 06:42 RBC 4.14 X10*6/uL (4.20-5.50) L 12/12/22 06:42 Hgb 12.4 g/dl (12.0-16.0) 12/12/22 06:42 Hct 38.1 % (37.0-47.0) 12/12/22 06:42 MCV 92.0 fL (80.0-98.0) 12/12/22 06:42 MCH 30.0 pg (27.0-33.0) 12/12/22 06:42 MCHC 32.5 g/dl (31.0-35.0) 12/12/22 06:42 RDW 13.7 % (11.0-16.0) 12/12/22 06:42 Plt Count 267 X10*3/uL (160-400) 12/12/22 06:42 MPV 9.7 fL (9.4-12.3) 12/12/22 06:42 Immature Gran % (Auto) 0.4 % (0.0-0.4) 12/12/22 06:42 Neut % (Auto) 69.4 % (45-73) 12/12/22 06:42 Lymph % (Auto) 20.5 % (20-40) 12/12/22 06:42 Coleman % (Auto) 7.8 % (2-11) 12/12/22 06:42 Eos % (Auto) 1.6 % (0-4) 12/12/22 06:42 Baso % (Auto) 0.3 % (0-2) 12/12/22 06:42 Lymph # (Auto) 1.4 X10*3/uL (1.2-4.9) 12/12/22 06:42 Coleman # (Auto) 0.5 X10*3/uL (0.1-1.2) 12/12/22 06:42 Eos # (Auto) 0.1 X10*3/uL (0.0-0.4) 12/12/22 06:42 Baso # (Auto) 0.0 X10*3/uL (0.0-0.2) 12/12/22 06:42 Abs Immat Gran (auto) 0.03 X10*3/uL (0.00-0.03) 12/12/22 06:42 Absolute Neuts (auto) 4.6 x10*3/uL (2.0-8.3) 12/12/22 06:42 Absolute Nucleated RBC 0.000 X10*3/uL (0.0-0.012) 12/12/22 06:42 Nucleated RBC % (auto) 0.0 /100WBC (0.0-0.2) 12/12/22 06:42 ESR 50 MM/HR (0-20) H 12/12/22 06:42 PT 12.9 SEC (10.0-13.1) 12/10/22 10:49 INR 1.1 (0.9-1.1) 12/10/22 10:49 Sodium 138 mmol/L (135-145) 12/11/22 05:49 Potassium 4.0 mmol/L (3.3-5.1) 12/11/22 05:49 Chloride 107 mmol/L (96-108) 12/11/22 05:49 Carbon Dioxide 23 mmol/L (22-29) 12/11/22 05:49 Anion Gap 12 (12-20) 12/11/22 05:49 BUN 5 mg/dL (9-16) L 12/11/22 05:49 Creatinine 0.71 mg/dL (0.5-1.4) 12/11/22 05:49 Estim Creat Clear Calc 98.4 12/11/22 05:49 Estimated GFR > 60 12/11/22 05:49 Random Glucose 83 mg/dL (60-115) 12/11/22 05:49 Lactic Acid 1.0 mmol/L (0.5-2.0) 12/10/22 15:04 Calcium 8.4 mg/dL (8.4-10.2) D 12/11/22 05:49 Magnesium 1.6 mg/dL (1.6-2.6) 12/10/22 10:49 Total Bilirubin 0.3 mg/dL (0.0-1.0) 12/12/22 06:42 Direct Bilirubin < 0.2 mg/dL (0.0-0.5) 12/12/22 06:42 AST 13 U/L (5-31) 12/12/22 06:42 ALT 7 U/L (0-31) 12/12/22 06:42 Alkaline Phosphatase 72 U/L (39-117) 12/12/22 06:42 C-Reactive Protein 8.52 mg/dL (< or = 0.50) H 12/12/22 06:42 Total Protein 5.8 g/dL (6.5-8.0) L 12/12/22 06:42 Albumin 3.1 g/dL (3.5-5.0) L 12/12/22 06:42 Lipase 10 U/L (8-78) 12/10/22 10:49 Urine Color Yellow 12/10/22 11:28 Urine Appearance Cloudy 12/10/22 11:28 Urine pH 5.5 (5.0-9.0) 12/10/22 11:28 Ur Specific [place] 1.015 (1.005-1.025) 12/10/22 11:28 Urine Protein Negative mg/dL (Neg-Trace) 12/10/22 11:28 Urine Glucose (UA) Negative mg/dL (Negative) 12/10/22 11:28 Urine Ketones Negative mg/dL (Negative) 12/10/22 11:28 Urine Blood Small (1+) (Negative) H 12/10/22 11:28 Urine Nitrite Negative (Negative) 12/10/22 11:28 Ur Leukocyte Esterase Negative (Negative) 12/10/22 11:28 Urine RBC 0-2 /HPF (0-2) 12/10/22 11:28 Urine WBC 0-5 /HPF (0-5) 12/10/22 11:28 Ur Squamous Epith Cells >20 /HPF (0-2) 12/10/22 11:28 Urine Bacteria Trace (None Seen) 12/10/22 11:28 Hyaline Casts 0-2 /LPF (0-2) 12/10/22 11:28 COVID-19 (LORENZO) Negative (Negative) 12/10/22 10:49 COVID-19 Clin Com See Note 12/10/22 10:49 Influenza Type A (MARQUEZ) Negative (Negative) 12/10/22 10:49 Influenza Type B (MARQUEZ) Negative (Negative) 12/10/22 10:49 Influenza A & B Note See Note 12/10/22 10:49 Impressions Abdomen/Pelvis CT 12/10/22 12:52 IMPRESSION: Worsening of diverticulitis at the junction of the descending colon and sigmoid colon. There is increased inflammation in the surrounding fat but no extraluminal air or drainable fluid collection is seen. Fleischner guidelines were followed. Assessment and Plan (1) Diverticulitis: Status: Acute I have reviewed her CAT scan and this shows difficult inflammatory changes surrounding the junction of the descending and proximal sigmoid. This is consistent with acute diverticulitis. There is no abscess at this time She seems to have had this initial diagnosis about 2-3 weeks ago. She had significant improvement but her pain had recurred again last weekend. Her exam is currently benign. I would continue with the antibiotic treatment currently with Levaquin and Flagyl. She may need a prolonged course. I did tell her that if this is a smoldering type of diverticulitis, she may benefit from resection down the line. I did have a short discussion with her about this involved, including temporary stoma. I also explained to her that if she develops significant worsening, as well as perforation, she will need emergent surgery. She seems to understand the above. I will follow along closely while she is in the hospital. Her ileal disease from Crohn's appears to be well controlled at this time. Time Spent With Patient Time: Total time managing care of this patient today ____ minutes. Procedures Date of Service Date of Service: 12/12/22
[2022-12-12] MEDS: Nystatin Powder 15 GM BOTTLE 1 APPL TOPICAL ×3 (08:28→20:14)
[2022-12-12] MEDS: Mesalamine 250 MG CAPSULE.ER 1000 MG PO ×4 (09:09→20:08)
[2022-12-12] MEDS: LORazepam 1 MG TABLET PO ×2 (09:10→20:09)
[2022-12-12] MEDS: Escitalopram Oxalate 10 MG TABLET PO (09:10)
[2022-12-12] MEDS: 0.9 % Sodium Chloride 1,000 ML 100 ML IVCONT (10:44)
--- NOTE | 2022-12-12 13:35 | P.PNIM_ITS ---
Subjective Subjective Date of Service: 12/12/22 Interval History: Complaining of persistent left lower quadrant pain, no nausea, no vomiting, no fever, no chills, is on clear liquid diet, taking sips of liquid, on IV fluids and IV antibiotics, denies lightheadedness, no dizziness has been ambulating with steady gait . Review of Systems Review of Systems: Yes all other systems are reviewed and are negative Physical Exam Vital Signs: Vital Signs: Last Vital Signs Temp 97.4 F 12/12/22 11:05 Pulse 78 12/12/22 11:05 Resp 18 12/12/22 13:09 BP 134/89 12/12/22 11:05 Pulse Ox 98 12/12/22 11:05 O2 Del Method 12/12/22 11:05 BMI result Body Mass Index 33.9 Const: Other: General resting comfortably in no acute distress. Neck no JVD. CVS regular rate rhythm, Respiratory lungs clear to auscultation, no respiratory distress, no wheeze, no rhonchi. Gastrointestinal abdomen soft, left lower quadrant tenderness to palpation, bowel sounds audible, no guarding , no rigidity. Extremities no edema. Neuro nonfocal . Skin no rash Objective Data Active Medications Acetaminophen (Acetaminophen 325 Mg Tablet) 650 mg PO Q6H PRN PRN Reason: Pain, Mild (Pain Scale 1-3) Clonidine HCl (Clonidine Hcl 0.1 Mg Tablet) 0.1 mg PO TID PRN; Protocol PRN Reason: for anxiety Enoxaparin Sodium (Enoxaparin Sodium 40 Mg/0.4 Ml Syringe) 40 mg SUBCUT Q24H [facility] Last Admin: 12/11/22 15:04 Dose: 40 mg Documented By: STEPH Escitalopram Oxalate (Escitalopram Oxalate 10 Mg Tablet) 10 mg PO DAILY [facility] Last Admin: 12/12/22 09:10 Dose: 10 mg Documented By: FLAKITO Hydromorphone HCl (Hydromorphone Hcl 1 Mg/Ml Syringe) 0.25 mg IVPUSH Q4H PRN; Protocol PRN Reason: Pain, Severe (Pain Scale 7-10) Last Admin: 12/12/22 13:09 Dose: 0.25 mg Documented By: FLAKITO Levofloxacin (Levaquin) 750 mg in 150 mls @ 100 mls/hr IV Q24H [facility] Stop: 12/16/22 16:59 Last Infusion: 12/11/22 19:44 Dose: 0 mls/hr Documented By: ROSAMARIA Metronidazole (Flagyl) 500 mg in 100 mls @ 100 mls/hr IV Q8H [facility] Stop: 12/16/22 23:59 Last Infusion: 12/12/22 09:40 Dose: 0 mls/hr Documented By: FLAKITO Sodium Chloride (Ns) 1,000 mls @ 100 mls/hr IVCONT .Q10H [facility] Last Admin: 12/12/22 10:44 Dose: 100 mls/hr Documented By: FLAKITO Ketorolac Tromethamine (Ketorolac Tromethamine 30 Mg/Ml Vial) 30 mg IVPUSH Q6H PRN PRN Reason: Pain, Moderate (Pain Scale 4-6 Stop: 12/15/22 15:29 Lorazepam (Lorazepam 1 Mg Tablet) 1 mg PO BID [facility] Last Admin: 12/12/22 09:10 Dose: 1 mg Documented By: FLAKITO Lorazepam (Lorazepam 1 Mg Tablet) 1 mg PO DAILY PRN PRN Reason: anxiety Last Admin: 12/11/22 15:06 Dose: 1 mg Documented By: STEPH Mesalamine (Mesalamine 250 Mg Capsule.Er) 1,000 mg PO QID [facility] Last Admin: 12/12/22 13:06 Dose: 1,000 mg Documented By: FLAKITO Non-Formulary Medication (Budesonide) 9 mg PO DAILY [facility] Nystatin (Nystatin Powder 15 Gm Bottle) 1 appl TOPICAL TID [facility]; Protocol Last Admin: 12/12/22 13:09 Dose: 1 appl Documented By: FLAKITO Ondansetron HCl (Ondansetron Hcl 4 Mg/2 Ml Vial) 4 mg IVPUSH Q4H PRN PRN Reason: Nausea and Vomiting Last Admin: 12/12/22 13:09 Dose: 4 mg Documented By: FLAKITO Oxycodone HCl (Oxycodone Hcl Immed Release 5 Mg Tablet) 5 mg PO Q6H PRN PRN Reason: Pain, Moderate (Pain Scale 4-6 Last Admin: 12/11/22 08:30 Dose: 5 mg Documented By: STEPH Pantoprazole Sodium (Pantoprazole Sodium 40 Mg/10 Ml Vial) 40 mg IVPUSH BID@0630,1630 [facility] Last Admin: 12/12/22 04:05 Dose: 40 mg Documented By: ROSAMARIA Sodium Chloride (0.9 % Sodium Chloride Flush 3 Ml Syringe) 3 ml IVFLUSH QSHIFT [facility] Last Admin: 12/12/22 08:17 Dose: 3 ml Documented By: FLAKITO Zolpidem Tartrate (Zolpidem Tartrate 5 Mg Tablet) 5 mg PO BEDTIME [facility] Last Admin: 12/11/22 20:13 Dose: 5 mg Documented By: ROSAMARIA Labs 12/12/22 06:42 12/11/22 05:49 Labs: Laboratory Results - last 24 hr 12/12/22 12/12/22 12/12/22 06:42 06:42 06:42 MCV 92.0 MCH 30.0 MCHC 32.5 RDW 13.7 Plt Count 267 MPV 9.7 Immature Gran % (Auto) 0.4 Neut % (Auto) 69.4 Lymph % (Auto) 20.5 [place] % (Auto) 7.8 Eos % (Auto) 1.6 Baso % (Auto) 0.3 Lymph # (Auto) 1.4 [place] # (Auto) 0.5 Eos # (Auto) 0.1 Baso # (Auto) 0.0 Abs Immat Gran (auto) 0.03 Absolute Neuts (auto) 4.6 Absolute Nucleated RBC 0.000 Nucleated RBC % (auto) 0.0 ESR 50 H Total Bilirubin 0.3 Direct Bilirubin < 0.2 AST 13 ALT 7 Alkaline Phosphatase 72 C-Reactive Protein 8.52 H Total Protein 5.8 L Albumin 3.1 L Microbiology Microbiology Results: Microbiology 12/10/22 15:04 Blood Culture - Preliminary Blood - Venous No growth after 24 hours. 12/10/22 15:04 Blood Culture - Preliminary Blood - Venous No growth after 24 hours. 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 Acute diverticulitis Failed outpatient antibiotic treatment with augmentin x 7 days on 11/23. Repeat CT abd/pelvis showing worsening diverticulitis, fat stranding, without abscess or perforation on IV levaquin 750mg and metronidazole 500mg TID xday 3/ 7 days WBC normalized blood cultures x2 negative Continue Clear liquids ,Pain management with oxycodone, ketorolac, hydromorphone and antiemetics Case discussed with Dr. Milan he recommend to continue current treatment. Vaginal itching and vulvar irritation possible yeast infection from antibiotic use s/p diflucan 150mg single dose Crohn's disease-without acute exacerbation due for Entyvio week of December Continue budesonide, Pentasa and lomotil prn Depression/anxiety continue home meds GERD PPI Obesity. BMI 33.9 Discussed importance of weight management as this may be contributing to worsening of other comorbidities DVT prophylaxis- lovenox Full code Continued hospitalization for treatment of acute diverticulitis having failed outpatient antibiotics now requiring IV antibiotics, IVF, and gradual advancement of diet. Time Spent With Patient Time: Total time managing care of this patient today ____ minutes. Quality Stroke Does the patient have a stroke diagnosis?: No VTE Prior VTE?: No VTE Risk Level:: Medical - moderate - high VTE Device Contraindication: Treatment Not Indicated VTE Drug Contraindication: N/A - Med Ordered
--- NOTE | 2022-12-12 14:31 | MHC.CM.PN ---
Per MD rounds no dc today. Patient continues on IV ABX. DP Home self care. Pt will arrange for transportation.
[2022-12-12] MEDS: levoFLOXacin/D5W 750 MG/150 ML PIGGYBACK 100 MG IV (15:50)
[2022-12-12] MEDS: Enoxaparin Sodium 40 MG/0.4 ML SYRINGE SUBCUT (15:52)
[2022-12-12] MEDS: Acetaminophen 325 MG TABLET 650 MG PO (17:07)
[2022-12-12] MEDS: Prochlorperazine Edisylate 10 MG/2 ML VIAL 5 MG IVPUSH (20:08)
[2022-12-12] MEDS: Zolpidem Tartrate 5 MG TABLET PO (20:09)
[2022-12-13] MEDS: metroNIDAZOLE/NS 500 MG/100 ML PIGGYBACK 100 MG IV ×3 (00:02→17:18)
[2022-12-13] MEDS: ondansetron HCL 4 MG/2 ML VIAL IVPUSH ×4 (03:21→19:02)
[2022-12-13] MEDS: HYDROmorphone HCl 1 MG/ML SYRINGE 0.25 MG IVPUSH ×2 (03:21→08:17)
[2022-12-13 03:28] VITALS: BP 153/96; PULSE 81; RESP 20; TEMP 37.1; O2SAT 98
[2022-12-13] MEDS: Pantoprazole Sodium 40 MG/10 ML VIAL IVPUSH ×2 (05:38→17:18)
[2022-12-13 06:50] LABS: Hematocrit 39.3 % (37.0-47.0); Hemoglobin 13.1 g/dl (12.0-16.0); Mean Corpuscular HGB Conc 33.3 g/dl (31.0-35.0); Mean Corpuscular Hemoglobin 30.7 pg (27.0-33.0); Platelet Count 305 X10*3/uL (160-400); Red Blood Count 4.27 X10*6/uL (4.20-5.50); Red Cell Distribution Width 13.7 % (11.0-16.0); White Blood Count 6.1 X10*3/uL (4.8-10.8)
[2022-12-13 07:11] LABS: Anion Gap 18 (12-20); Blood Urea Nitrogen 4 mg/dL (9-16); Calcium 8.9 mg/dL (8.4-10.2); Carbon Dioxide 19 mmol/L (22-29); Chloride 108 mmol/L (96-108); Creatinine Clr Calc Pharmacy 97.1; Estimated Glomerular Filt Rate > 60; Glucose Random 86 mg/dL (60-115); Sodium 141 mmol/L (135-145)
[2022-12-13 08:00] VITALS: BP 148/92; PULSE 80; RESP 20; TEMP 36.8; O2SAT 98
[2022-12-13] MEDS: Mesalamine 250 MG CAPSULE.ER 1000 MG PO ×3 (08:17→21:36)
[2022-12-13] MEDS: Escitalopram Oxalate 10 MG TABLET PO (08:17)
[2022-12-13] MEDS: LORazepam 1 MG TABLET PO ×3 (08:17→21:09)
--- NOTE | 2022-12-13 08:17 | P.PNGS_ITS ---
Subjective Subjective Date of Service: 12/13/22 Interval history: pain on abdl better main complaint now is nausea and vomitting after Dilaudid passing flatus and had small BM this morning much less anxious Physical Exam Vital Signs: Vital Signs: Last Vital Signs Temp 98.3 F 12/13/22 08:00 Pulse 80 12/13/22 08:00 Resp 20 12/13/22 08:00 BP 148/92 H 12/13/22 08:00 Pulse Ox 98 12/13/22 08:00 O2 Del Method 12/13/22 08:00 BMI result Body Mass Index 33.9 Const: General: comfortable and no acute distress Resp: Effort & Inspection: normal respiratory effort Cardio: Rate: regular rate GI: Other: mild tenderness on left lower quadrant, Inspection: No distended Palpation (GI): Soft to palpation, not firm, no guarding and not rigid Objective Data Active Medications Acetaminophen (Acetaminophen 325 Mg Tablet) 650 mg PO Q6H PRN PRN Reason: Pain, Mild (Pain Scale 1-3) Last Admin: 12/12/22 17:07 Dose: 650 mg Documented By: FLAKITO Clonidine HCl (Clonidine Hcl 0.1 Mg Tablet) 0.1 mg PO TID PRN; Protocol PRN Reason: for anxiety Enoxaparin Sodium (Enoxaparin Sodium 40 Mg/0.4 Ml Syringe) 40 mg SUBCUT Q24H [facility] Last Admin: 12/12/22 15:52 Dose: 40 mg Documented By: FLAKITO Escitalopram Oxalate (Escitalopram Oxalate 10 Mg Tablet) 10 mg PO DAILY [facility] Last Admin: 12/12/22 09:10 Dose: 10 mg Documented By: FLAKITO Hydromorphone HCl (Hydromorphone Hcl 1 Mg/Ml Syringe) 0.25 mg IVPUSH Q4H PRN; Protocol PRN Reason: Pain, Severe (Pain Scale 7-10) Last Admin: 12/13/22 03:21 Dose: 0.25 mg Documented By: CAITLIN Levofloxacin (Levaquin) 750 mg in 150 mls @ 100 mls/hr IV Q24H [facility] Stop: 12/16/22 16:59 Last Infusion: 12/12/22 16:16 Dose: 0 mls/hr Documented By: FLAKITO Metronidazole (Flagyl) 500 mg in 100 mls @ 100 mls/hr IV Q8H [facility] Stop: 12/16/22 23:59 Last Infusion: 12/13/22 01:09 Dose: 0 mls/hr Documented By: CAITLIN Ketorolac Tromethamine (Ketorolac Tromethamine 30 Mg/Ml Vial) 30 mg IVPUSH Q6H PRN PRN Reason: Pain, Moderate (Pain Scale 4-6 Stop: 12/15/22 15:29 Lorazepam (Lorazepam 1 Mg Tablet) 1 mg PO BID [facility] Last Admin: 12/12/22 20:09 Dose: 1 mg Documented By: CAITLIN Lorazepam (Lorazepam 1 Mg Tablet) 1 mg PO DAILY PRN PRN Reason: anxiety Last Admin: 12/11/22 15:06 Dose: 1 mg Documented By: STEPH Mesalamine (Mesalamine 250 Mg Capsule.Er) 1,000 mg PO QID [facility] Last Admin: 12/12/22 20:08 Dose: 1,000 mg Documented By: CAITLIN Non-Formulary Medication (Budesonide) 9 mg PO DAILY [facility] Nystatin (Nystatin Powder 15 Gm Bottle) 1 appl TOPICAL TID [facility]; Protocol Last Admin: 12/12/22 20:14 Dose: 1 appl Documented By: CAITLIN Ondansetron HCl (Ondansetron Hcl 4 Mg/2 Ml Vial) 4 mg IVPUSH Q4H PRN PRN Reason: Nausea and Vomiting Last Admin: 12/13/22 03:21 Dose: 4 mg Documented By: CAITLIN Oxycodone HCl (Oxycodone Hcl Immed Release 5 Mg Tablet) 5 mg PO Q6H PRN PRN Reason: Pain, Moderate (Pain Scale 4-6 Last Admin: 12/11/22 08:30 Dose: 5 mg Documented By: STEPH Pantoprazole Sodium (Pantoprazole Sodium 40 Mg/10 Ml Vial) 40 mg IVPUSH BID@0630,1630 [facility] Last Admin: 12/13/22 05:38 Dose: 40 mg Documented By: CAITLIN Sodium Chloride (0.9 % Sodium Chloride Flush 3 Ml Syringe) 3 ml IVFLUSH QSHIFT [facility] Last Admin: 12/12/22 20:16 Dose: 3 ml Documented By: CAITLIN Zolpidem Tartrate (Zolpidem Tartrate 5 Mg Tablet) 5 mg PO BEDTIME [facility] Last Admin: 12/12/22 20:09 Dose: 5 mg Documented By: CAITLIN Labs 12/13/22 06:09 12/13/22 06:09 Labs: Laboratory Results - last 24 hr 12/13/22 12/13/22 06:09 06:09 MCV 92.0 MCH 30.7 MCHC 33.3 RDW 13.7 Plt Count 305 MPV 10.0 Absolute Nucleated RBC 0.000 Nucleated RBC % (auto) 0.0 Anion Gap 18 Estim Creat Clear Calc 97.1 Estimated GFR > 60 Random Glucose 86 Calcium 8.9 Microbiology Microbiology Results: Microbiology 12/10/22 15:04 Blood Culture - Preliminary Blood - Venous No growth after 48 hours. 12/10/22 15:04 Blood Culture - Preliminary Blood - Venous No growth after 48 hours. Procedures Date of Service Date of Service: 12/13/22 Progress Note: A&P Assessment and plan (1) Diverticulitis: Status: Acute Assessment and Plan: clinically improving gets nauseous with Dilaudid instructed to try to take less of narcotic pain meds keep on clear liquids ambulate may need longer course of abx Time Spent With Patient Time: Total time managing care of this patient today ____ minutes. Quality Stroke Does the patient have a stroke diagnosis?: No VTE Prior VTE?: No VTE Risk Level:: Medical - moderate - high VTE Device Contraindication: Treatment Not Indicated VTE Drug Contraindication: N/A - Med Ordered
[2022-12-13] MEDS: 0.9 % Sodium Chloride Flush 3 ML SYRINGE IVFLUSH ×2 (08:18→17:19)
--- NOTE | 2022-12-13 13:08 | HO.PM.IMPN ---
Subjective Subjective Date of Service: 12/13/22 Interval History: Complaining of nausea, headache, abdominal pain has improved after using diluted this morning, has been tolerating clear liquid diet, no fevers, no chills, had small bowel movement this morning, no urinary symptoms has been ambulating unsteady gait no lightheadedness, no dizziness. Question nausea related to narcotics versus due to headache. Review of Systems Review of Systems: Yes all other systems are reviewed and are negative Physical Exam Vital Signs: Vital Signs: Last Vital Signs Temp 98.3 F 12/13/22 08:00 Pulse 80 12/13/22 08:00 Resp 20 12/13/22 08:00 BP 148/92 H 12/13/22 08:00 Pulse Ox 98 12/13/22 08:00 O2 Del Method 12/13/22 08:00 BMI result Body Mass Index 33.9 Const: Other: General resting comfortably in no acute distress.? Neck? no JVD. CVS? regular rate rhythm, Respiratory lungs clear to auscultation, no respiratory distress, no wheeze, no rhonchi. Gastrointestinal abdomen soft, left lower quadrant no tenderness, bowel sounds audible, no guarding , no rigidity. Extremities no edema. Neuro nonfocal . Skin no rash Objective Data Active Medications Acetaminophen (Acetaminophen 325 Mg Tablet) 650 mg PO Q6H PRN PRN Reason: Pain, Mild (Pain Scale 1-3) Last Admin: 12/12/22 17:07 Dose: 650 mg Documented By: FLAKITO Clonidine HCl (Clonidine Hcl 0.1 Mg Tablet) 0.1 mg PO TID PRN; Protocol PRN Reason: for anxiety Enoxaparin Sodium (Enoxaparin Sodium 40 Mg/0.4 Ml Syringe) 40 mg SUBCUT Q24H [facility] Last Admin: 12/12/22 15:52 Dose: 40 mg Documented By: FLAKITO Escitalopram Oxalate (Escitalopram Oxalate 10 Mg Tablet) 10 mg PO DAILY [facility] Last Admin: 12/13/22 08:17 Dose: 10 mg Documented By: NAYA Levofloxacin (Levaquin) 750 mg in 150 mls @ 100 mls/hr IV Q24H [facility] Stop: 12/16/22 16:59 Last Infusion: 12/12/22 16:16 Dose: 0 mls/hr Documented By: FLAKITO Metronidazole (Flagyl) 500 mg in 100 mls @ 100 mls/hr IV Q8H [facility] [place] Stop: 12/16/22 23:59 Last Infusion: 12/13/22 09:14 Dose: 0 mls/hr Documented By: NAYA Ketorolac Tromethamine (Ketorolac Tromethamine 30 Mg/Ml Vial) 30 mg IVPUSH Q6H PRN PRN Reason: Pain, Moderate (Pain Scale 4-6 Stop: 12/15/22 15:29 Lorazepam (Lorazepam 1 Mg Tablet) 1 mg PO BID [facility] [place] Last Admin: 12/13/22 08:17 Dose: 1 mg Documented By: NAYA Lorazepam (Lorazepam 1 Mg Tablet) 1 mg PO DAILY PRN PRN Reason: anxiety Last Admin: 12/11/22 15:06 Dose: 1 mg Documented By: STEPH Mesalamine (Mesalamine 250 Mg Capsule.Er) 1,000 mg PO QID [facility] [place] Last Admin: 12/13/22 08:17 Dose: 1,000 mg Documented By: NAYA Non-Formulary Medication (Budesonide) 9 mg PO DAILY [facility] [place] Nystatin (Nystatin Powder 15 Gm Bottle) 1 appl TOPICAL TID [facility] [place]; Protocol Last Admin: 12/12/22 20:14 Dose: 1 appl Documented By: CAITLIN Ondansetron HCl (Ondansetron Hcl 4 Mg/2 Ml Vial) 4 mg IVPUSH Q4H PRN PRN Reason: Nausea and Vomiting Last Admin: 12/13/22 08:17 Dose: 4 mg Documented By: NAYA Oxycodone HCl (Oxycodone Hcl Immed Release 5 Mg Tablet) 5 mg PO Q6H PRN PRN Reason: Pain, Moderate (Pain Scale 4-6 Last Admin: 12/11/22 08:30 Dose: 5 mg Documented By: STEPH Pantoprazole Sodium (Pantoprazole Sodium 40 Mg/10 Ml Vial) 40 mg IVPUSH BID@0630,1630 [facility] [place] Last Admin: 12/13/22 05:38 Dose: 40 mg Documented By: CAITLIN Sodium Chloride (0.9 % Sodium Chloride Flush 3 Ml Syringe) 3 ml IVFLUSH QSHIFT [facility] [place] Last Admin: 12/13/22 08:18 Dose: 3 ml Documented By: NAYA Zolpidem Tartrate (Zolpidem Tartrate 5 Mg Tablet) 5 mg PO BEDTIME [facility] Last Admin: 12/12/22 20:09 Dose: 5 mg Documented By: CAITLIN Labs 12/13/22 06:09 12/13/22 06:09 Labs: Laboratory Results - last 24 hr 12/13/22 12/13/22 06:09 06:09 MCV 92.0 MCH 30.7 MCHC 33.3 RDW 13.7 Plt Count 305 MPV 10.0 Absolute Nucleated RBC 0.000 Nucleated RBC % (auto) 0.0 Anion Gap 18 Estim Creat Clear Calc 97.1 Estimated GFR > 60 Random Glucose 86 Calcium 8.9 Microbiology Microbiology Results: Microbiology 12/10/22 15:04 Blood Culture - Preliminary Blood - Venous No growth after 48 hours. 12/10/22 15:04 Blood Culture - Preliminary Blood - Venous No growth after 48 hours. 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 Acute diverticulitis Failed outpatient antibiotic treatment with augmentin x 7 days on 11/23. Repeat CT abd/pelvis showing worsening diverticulitis, fat stranding, without abscess or perforation on IV levaquin 750mg and metronidazole 500mg TID xday 4/ 7 days WBC normalized blood cultures x2 negative Tolerating clear liquid diet, stable abdominal exam, will advance diet to full liquid will DC I IV Dilaudid and oxycodone due to nausea continue IV Toradol and antiemetics Case discussed with Dr. Milan he recommend prolonged antibiotic course. Recommend ambulation Vaginal itching and vulvar irritation possible yeast infection from antibiotic use s/p diflucan 150mg single dose Crohn's disease-without acute exacerbation due for Entyvio week december Continue budesonide, Pentasa and lomotil prn Depression/anxiety continue home meds GERD PPI Obesity. BMI 33.9 Discussed importance of weight management as this may be contributing to worsening of other comorbidities DVT prophylaxis- lovenox Full code Continued hospitalization for treatment of acute diverticulitis having failed outpatient antibiotics now requiring IV antibiotics, and gradual advancement of diet. Time Spent With Patient Time: Total time managing care of this patient today ____ minutes. Quality Stroke Does the patient have a stroke diagnosis?: No VTE Prior VTE?: No VTE Risk Level:: Medical - moderate - high VTE Device Contraindication: Treatment Not Indicated VTE Drug Contraindication: N/A - Med Ordered
[2022-12-13] MEDS: Ketorolac Tromethamine 30 MG/ML VIAL IVPUSH (14:44)
[2022-12-13 15:41] VITALS: BP 136/80; PULSE 66; RESP 16; TEMP 36.1; O2SAT 98
[2022-12-13] MEDS: Enoxaparin Sodium 40 MG/0.4 ML SYRINGE SUBCUT (17:18)
[2022-12-13] MEDS: oxyCODONE HCl Immed Release 5 MG TABLET PO (17:39)
[2022-12-13] MEDS: levoFLOXacin/D5W 750 MG/150 ML PIGGYBACK 100 MG IV (18:33)
[2022-12-13 19:49] VITALS: BP 156/82; PULSE 81; RESP 18; TEMP 36.1; O2SAT 98
[2022-12-13] MEDS: Zolpidem Tartrate 5 MG TABLET PO (21:09)
[2022-12-13] MEDS: Prochlorperazine Edisylate 10 MG/2 ML VIAL 5 MG IM (21:09)
--- NOTE | 2022-12-13 23:16 | PM.GIPN ---
Subjective Subjective Date of Service: 12/13/22 Interval History: Patient seen at 12:30 PM today. She reports feeling somewhat better, although still having pain. Still c/o nausea. Starting clear liquids. Passing flatus and having small BM's. Critical Care Time (minutes): 0 Physical Exam Vital Signs: Vital Signs: Last Vital Signs Temp 97 F 12/13/22 19:49 Pulse 81 12/13/22 19:49 Resp 18 12/13/22 19:49 BP 156/82 H 12/13/22 19:49 Pulse Ox 98 12/13/22 19:49 O2 Del Method 12/13/22 19:49 BMI result Body Mass Index 33.9 Const: General: cooperative, healthy appearing, comfortable, no acute distress, well developed, alert and awake GI: Other: +BS, soft , Nondistended, LLQ tenderness, no mass Objective Data Labs 12/13/22 06:09 12/13/22 06:09 Labs: Laboratory Results - last 24 hr 12/13/22 12/13/22 06:09 06:09 WBC 6.1 RBC 4.27 Hgb 13.1 Hct 39.3 MCV 92.0 MCH 30.7 MCHC 33.3 RDW 13.7 Plt Count 305 MPV 10.0 Absolute Nucleated RBC 0.000 Nucleated RBC % (auto) 0.0 Sodium 141 Potassium 4.0 Chloride 108 Carbon Dioxide 19 L Anion Gap 18 BUN 4 L Creatinine 0.72 Estim Creat Clear Calc 97.1 Estimated GFR > 60 Random Glucose 86 Calcium 8.9 Microbiology Microbiology Results: Microbiology 12/10/22 15:04 Blood - Venous Blood Culture - Preliminary No growth after 48 hours. 12/10/22 15:04 Blood - Venous Blood Culture - Preliminary No growth after 48 hours. Procedures Date of Service Date of Service: 12/13/22 Progress Note: A&P Assessment and plan (1) Diverticulitis: Status: Acute (2) Crohn's colitis: Status: Acute Plan Imp/Recs: Diverticulitis-clinically improved on IV antibiotics. Continue current regimen and diet. Will defer to surgery re: advancement of diet and change to po antibiotics. Crohn's disease-clinically stable. Continue Pentasa, start her Budesonide from home when available. D/W patient and she is comfortable with this plan. Thanks Time Spent With Patient Time: Total time managing care of this patient today ____ minutes. Quality Stroke Does the patient have a stroke diagnosis?: No VTE Prior VTE?: No VTE Risk Level:: Medical - moderate - high VTE Device Contraindication: Treatment Not Indicated VTE Drug Contraindication: N/A - Med Ordered
[2022-12-14] MEDS: metroNIDAZOLE/NS 500 MG/100 ML PIGGYBACK 100 MG IV ×3 (00:04→15:22)
[2022-12-14] MEDS: 0.9 % Sodium Chloride Flush 3 ML SYRINGE IVFLUSH ×4 (00:04→20:15)
[2022-12-14] MEDS: ondansetron HCL 4 MG/2 ML VIAL IVPUSH ×3 (01:51→14:34)
[2022-12-14] MEDS: Ketorolac Tromethamine 30 MG/ML VIAL IVPUSH ×3 (01:51→20:14)
[2022-12-14] MEDS: cloNIDine HCL 0.1 MG TABLET PO (02:01)
[2022-12-14 03:37] VITALS: BP 120/54; PULSE 85; RESP 18; TEMP 36.3; O2SAT 97
[2022-12-14] MEDS: Pantoprazole Sodium 40 MG/10 ML VIAL IVPUSH (06:11)
[2022-12-14 07:34] VITALS: BP 130/68; PULSE 74; RESP 16; TEMP 36.6; O2SAT 95
[2022-12-14] MEDS: LORazepam 1 MG TABLET PO ×3 (08:32→20:19)
[2022-12-14] MEDS: Escitalopram Oxalate 10 MG TABLET PO (08:32)
[2022-12-14] MEDS: Mesalamine 250 MG CAPSULE.ER 1000 MG PO ×4 (08:32→20:15)
[2022-12-14] MEDS: Nystatin Powder 15 GM BOTTLE 1 APPL TOPICAL ×3 (08:43→20:22)
--- NOTE | 2022-12-14 09:05 | PM.PNGS ---
Subjective Subjective Date of Service: 12/14/22 Interval history: continues to feel better with regards to pain main complaint is nausea, which she also describes as occurring after she gets IV abx passing flatus and BMs Physical Exam Vital Signs: Vital Signs: Last Vital Signs Temp 97.8 F 12/14/22 07:34 Pulse 74 12/14/22 07:34 Resp 16 12/14/22 07:34 BP 130/68 12/14/22 07:34 Pulse Ox 95 12/14/22 07:34 O2 Del Method 12/14/22 07:34 BMI result Body Mass Index 33.9 Const: Other: less anxious General: comfortable and no acute distress Resp: Effort & Inspection: normal respiratory effort Cardio: Rate: regular rate GI: Inspection: No distended Palpation (GI): Soft to palpation, not firm, Tenderness to palpation present (GI) (minimal tenderness on LLQ) and no guarding Objective Data Active Medications Acetaminophen (Acetaminophen 325 Mg Tablet) 650 mg PO Q6H PRN PRN Reason: Pain, Mild (Pain Scale 1-3) Last Admin: 12/12/22 17:07 Dose: 650 mg Documented By: FLAKITO Clonidine HCl (Clonidine Hcl 0.1 Mg Tablet) 0.1 mg PO TID PRN; Protocol PRN Reason: for anxiety Last Admin: 12/14/22 02:01 Dose: 0.1 mg Documented By: SLIME Enoxaparin Sodium (Enoxaparin Sodium 40 Mg/0.4 Ml Syringe) 40 mg SUBCUT Q24H [facility] Last Admin: 12/13/22 17:18 Dose: 40 mg Documented By: NAYA Escitalopram Oxalate (Escitalopram Oxalate 10 Mg Tablet) 10 mg PO DAILY [facility] Last Admin: 12/14/22 08:32 Dose: 10 mg Documented By: ISRAEL Levofloxacin (Levaquin) 750 mg in 150 mls @ 100 mls/hr IV Q24H [facility] Stop: 12/16/22 16:59 Last Infusion: 12/13/22 20:33 Dose: 0 mls/hr Documented By: SLIME Metronidazole (Flagyl) 500 mg in 100 mls @ 100 mls/hr IV Q8H [facility] Stop: 12/16/22 23:59 Last Admin: 12/14/22 08:32 Dose: 100 mls/hr Documented By: ISRAEL Ketorolac Tromethamine (Ketorolac Tromethamine 30 Mg/Ml Vial) 30 mg IVPUSH Q6H PRN PRN Reason: Pain, Moderate (Pain Scale 4-6 Stop: 12/15/22 15:29 Last Admin: 12/14/22 01:51 Dose: 30 mg Documented By: SLIME Lorazepam (Lorazepam 1 Mg Tablet) 1 mg PO BID [facility] Last Admin: 12/14/22 08:32 Dose: 1 mg Documented By: ISRAEL Lorazepam (Lorazepam 1 Mg Tablet) 1 mg PO DAILY PRN PRN Reason: anxiety Last Admin: 12/13/22 14:44 Dose: 1 mg Documented By: NAYA Mesalamine (Mesalamine 250 Mg Capsule.Er) 1,000 mg PO QID [facility] Last Admin: 12/14/22 08:32 Dose: 1,000 mg Documented By: ISRAEL Non-Formulary Medication (Budesonide) 9 mg PO DAILY [facility] Nystatin (Nystatin Powder 15 Gm Bottle) 1 appl TOPICAL TID [facility]; Protocol Last Admin: 12/14/22 08:43 Dose: 1 appl Documented By: ISRAEL Omeprazole (Omeprazole 20 Mg Capsule.Dr) 20 mg PO DAILY@0630 [facility] Ondansetron HCl (Ondansetron Hcl 4 Mg/2 Ml Vial) 4 mg IVPUSH Q4H PRN PRN Reason: Nausea and Vomiting Last Admin: 12/14/22 01:51 Dose: 4 mg Documented By: SLIME Oxycodone HCl (Oxycodone Hcl Immed Release 5 Mg Tablet) 5 mg PO Q6H PRN PRN Reason: Pain, Moderate (Pain Scale 4-6 Last Admin: 12/13/22 17:39 Dose: 5 mg Documented By: NAYA Sodium Chloride (0.9 % Sodium Chloride Flush 3 Ml Syringe) 3 ml IVFLUSH [facility] Last Admin: 12/14/22 08:34 Dose: 3 ml Documented By: ISRAEL Zolpidem Tartrate (Zolpidem Tartrate 5 Mg Tablet) 5 mg PO BEDTIME [facility] Last Admin: 12/13/22 21:09 Dose: 5 mg Documented By: HO.ODRISM Labs 12/13/22 06:09 12/13/22 06:09 Procedures Date of Service Date of Service: 12/14/22 Progress Note: A&P Assessment and plan (1) Diverticulitis: Status: Acute Assessment and Plan: good clinical improvement the past 48 hours abd soft and benign c/o nausea but clinically not obstructed - may be from IV abx, previous narcotic use ok to advance to full liq advance diet slowly in view of prolonged symptoms may benefit from longer course of IV abx Time Spent With Patient Time: Total time managing care of this patient today ____ minutes. Quality Stroke Does the patient have a stroke diagnosis?: No VTE Prior VTE?: No VTE Risk Level:: Medical - moderate - high VTE Device Contraindication: Treatment Not Indicated VTE Drug Contraindication: N/A - Med Ordered
--- NOTE | 2022-12-14 10:17 | MHC.CM.PN ---
PER MD ROUNDS, PT EXPECTED TO DC SATURDAY DCP: HOME WITH NO SERVICES VIA PRIVATE TRANSPORT
--- NOTE | 2022-12-14 10:19 | P.PNIM_ITS ---
Subjective Subjective Date of Service: 12/14/22 Interval History: Abdominal pain is better than yesterday, complaining of mild nausea,no fever,chills , tolerating clear diet, has been ambulating with steady gait no acute issues overnight, no heartburn, no acidity, no diarrhea. Review of Systems Review of Systems: Yes all other systems are reviewed and are negative Physical Exam Vital Signs: Vital Signs: Last Vital Signs Temp 97.8 F 12/14/22 07:34 Pulse 74 12/14/22 07:34 Resp 16 12/14/22 07:34 BP 130/68 12/14/22 07:34 Pulse Ox 95 12/14/22 07:34 O2 Del Method 12/14/22 07:34 BMI result Body Mass Index 33.9 Const: Other: General resting comfortably in no acute distress.? Neck? no JVD. CVS? regular rate rhythm, Respiratory lungs clear to auscultation, no respiratory distress, no wheeze, no rhonchi. Gastrointestinal abdomen soft, left lower quadrant no tenderness, bowel sounds audible, no guarding , no rigidity. Extremities no edema. Neuro nonfocal . Skin no rash Objective Data Active Medications Acetaminophen (Acetaminophen 325 Mg Tablet) 650 mg PO Q6H PRN PRN Reason: Pain, Mild (Pain Scale 1-3) Last Admin: 12/12/22 17:07 Dose: 650 mg Documented By: FLAKITO Clonidine HCl (Clonidine Hcl 0.1 Mg Tablet) 0.1 mg PO TID PRN; Protocol PRN Reason: for anxiety Last Admin: 12/14/22 02:01 Dose: 0.1 mg Documented By: SLIME Enoxaparin Sodium (Enoxaparin Sodium 40 Mg/0.4 Ml Syringe) 40 mg SUBCUT Q24H [facility] Last Admin: 12/13/22 17:18 Dose: 40 mg Documented By: NAYA Escitalopram Oxalate (Escitalopram Oxalate 10 Mg Tablet) 10 mg PO DAILY [facility] Last Admin: 12/14/22 08:32 Dose: 10 mg Documented By: ISRAEL Levofloxacin (Levaquin) 750 mg in 150 mls @ 100 mls/hr IV Q24H [facility] Stop: 12/16/22 16:59 Last Infusion: 12/13/22 20:33 Dose: 0 mls/hr Documented By: SLIME Metronidazole (Flagyl) 500 mg in 100 mls @ 100 mls/hr IV Q8H [facility] Stop: 12/16/22 23:59 Last Infusion: 12/14/22 09:36 Dose: 0 mls/hr Documented By: ISRAEL Ketorolac Tromethamine (Ketorolac Tromethamine 30 Mg/Ml Vial) 30 mg IVPUSH Q6H PRN PRN Reason: Pain, Moderate (Pain Scale 4-6 Stop: 12/15/22 15:29 Last Admin: 12/14/22 01:51 Dose: 30 mg Documented By: SLIME Lorazepam (Lorazepam 1 Mg Tablet) 1 mg PO BID [facility] Last Admin: 12/14/22 08:32 Dose: 1 mg Documented By: ISRAEL Lorazepam (Lorazepam 1 Mg Tablet) 1 mg PO DAILY PRN PRN Reason: anxiety Last Admin: 12/13/22 14:44 Dose: 1 mg Documented By: NAAY Mesalamine (Mesalamine 250 Mg Capsule.Er) 1,000 mg PO QID [facility] Last Admin: 12/14/22 08:32 Dose: 1,000 mg Documented By: ISRAEL Pt Own Med ( Budesonide 3 Mg Capsule,Delayed, Extend.Release) 9 mg PO DAILY [facility] Nystatin (Nystatin Powder 15 Gm Bottle) 1 appl TOPICAL TID [facility]; Protocol Last Admin: 12/14/22 08:43 Dose: 1 appl Documented By: ISRAEL Omeprazole (Omeprazole 20 Mg Capsule.Dr) 20 mg PO DAILY@0630 [facility] Ondansetron HCl (Ondansetron Hcl 4 Mg/2 Ml Vial) 4 mg IVPUSH Q4H PRN PRN Reason: Nausea and Vomiting Last Admin: 12/14/22 01:51 Dose: 4 mg Documented By: SLIME Oxycodone HCl (Oxycodone Hcl Immed Release 5 Mg Tablet) 5 mg PO Q6H PRN PRN Reason: Pain, Moderate (Pain Scale 4-6 Last Admin: 12/13/22 17:39 Dose: 5 mg Documented By: NAYA Sodium Chloride (0.9 % Sodium Chloride Flush 3 Ml Syringe) [facility] Last Admin: 12/14/22 08:34 Dose: 3 ml Documented By: ISRAEL Zolpidem Tartrate (Zolpidem Tartrate 5 Mg Tablet) 5 mg PO BEDTIME [facility] Last Admin: 12/13/22 21:09 Dose: 5 mg Documented By: SLIME Labs 12/13/22 06:09 12/13/22 06:09 Assessment and Plan (1) Diverticulitis: Status: Acute Plan 47-year-old female with history of anxiety, Crohn's disease, 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 Acute diverticulitis Feeling better less abdominal pain, had bowel movement yesterday, persistent mil d nausea. Failed outpatient antibiotic treatment with augmentin x 7 days on 11/23. Repeat CT abd/pelvis showing worsening diverticulitis, fat stranding, without abscess or perforation on IV levaquin 750mg and metronidazole 500mg TID xday day 5 duration of antibiotic and further diet change as per General surgery to avoid confusion WBC normalized blood cultures x2 negative , repeat BMP at a.m. Will DC IV Protonix, placed on Prilosec Vaginal itching and vulvar irritation possible yeast infection from antibiotic use s/p diflucan 150mg single dose Crohn's disease-without acute exacerbation due for Entyvio week of December Start budesonide 12/14 (family brought medication from home) continue Pentasa and lomotil prn. Depression/anxiety continue home meds GERD PPI Obesity. BMI 33.9 Discussed importance of weight management as this may be contributing to worsening of other comorbidities DVT prophylaxis- lovenox Full code Continued hospitalization for treatment of acute diverticulitis having failed outpatient antibiotics now requiring IV antibiotics, and gradual advancement of diet. Time Spent With Patient Time: Total time managing care of this patient today ____ minutes. Quality Stroke Does the patient have a stroke diagnosis?: No VTE Prior VTE?: No VTE Risk Level:: Medical - moderate - high VTE Device Contraindication: Treatment Not Indicated VTE Drug Contraindication: N/A - Med Ordered
--- NOTE | 2022-12-14 12:51 | MHC.CLN ---
NUTRITION CONSULT FOR DIVERTICULITIS DIET EDUCATION. PATIENT WITH NEW DIVERTICULITIS. HAS HAD CROHNS X APPROXIMATELY 20 YEARS. FOLLOWS LOWER FIBER DIET WITH CROHNS. LOW FIBER DIET ADVISED WITH DIVERTICULITIS. SUSPECTS THAT EATING NUTS TRIGGERED DIVERTICULITIS. DISCUSSED KEEPING FOOD JOURNAL. PROVIDED HANDOUTS ON LOW FIBER NUTRITION THERAPY AND IBD: CROHNS AND UC NUTRITION THERAPY. PATIENT ENGAGED IN DISCUSSION WITH APPROPRIATE QUESTIONS.
[2022-12-14] MEDS: oxyCODONE HCl Immed Release 5 MG TABLET PO (14:34)
[2022-12-14] MEDS: Enoxaparin Sodium 40 MG/0.4 ML SYRINGE SUBCUT (15:22)
[2022-12-14 16:00] VITALS: BP 132/71; PULSE 65; RESP 18; TEMP 36.7; O2SAT 98
[2022-12-14] MEDS: levoFLOXacin/D5W 750 MG/150 ML PIGGYBACK 100 MG IV (17:40)
[2022-12-14 19:57] VITALS: BP 136/73; PULSE 79; RESP 18; TEMP 36.4; O2SAT 98
[2022-12-14] MEDS: Zolpidem Tartrate 5 MG TABLET PO (20:19)
[2022-12-15] MEDS: ondansetron HCL 4 MG/2 ML VIAL IVPUSH ×3 (00:17→20:19)
[2022-12-15] MEDS: LORazepam 1 MG TABLET PO ×3 (00:17→20:21)
[2022-12-15] MEDS: metroNIDAZOLE/NS 500 MG/100 ML PIGGYBACK 100 MG IV ×4 (00:20→23:52)
[2022-12-15 03:11] VITALS: BP 126/58; PULSE 72; RESP 18; TEMP 36.4; O2SAT 96
[2022-12-15] MEDS: diphenhydrAMINE HCL 50 MG/ML VIAL 25 MG IVPUSH (03:45)
[2022-12-15] MEDS: Omeprazole 20 MG CAPSULE.DR PO (05:29)
[2022-12-15 07:14] LABS: Anion Gap 14 (12-20); Blood Urea Nitrogen 8 mg/dL (9-16); Calcium 8.7 mg/dL (8.4-10.2); Carbon Dioxide 21 mmol/L (22-29); Chloride 109 mmol/L (96-108); Creatinine Clr Calc Pharmacy 105.9; Estimated Glomerular Filt Rate > 60; Glucose Random 79 mg/dL (60-115); Potassium 3.9 mmol/L (3.3-5.1); Sodium 140 mmol/L (135-145)
[2022-12-15 07:20] VITALS: BP 121/60; PULSE 65; RESP 20; TEMP 36.4; O2SAT 96
[2022-12-15] MEDS: Escitalopram Oxalate 10 MG TABLET PO (07:44)
[2022-12-15] MEDS: 0.9 % Sodium Chloride Flush 3 ML SYRINGE IVFLUSH ×3 (07:44→23:52)
[2022-12-15] MEDS: Mesalamine 250 MG CAPSULE.ER 1000 MG PO ×4 (07:44→20:21)
[2022-12-15] MEDS: Nystatin Powder 15 GM BOTTLE 1 APPL TOPICAL ×3 (07:46→20:22)
[2022-12-15 08:00] LABS: C Reactive Protein 1.45 mg/dL (< or = 0.50)
--- NOTE | 2022-12-15 09:37 | PM.PNGS ---
Subjective Subjective Date of Service: 12/15/22 Interval history: Patient feels improved this morning with less abdominal pain. She was able to tolerate some of her diet without nausea or increased pain. She reports passing flatus and liquid stool. Physical Exam Vital Signs: Vital Signs: Last Vital Signs Temp 97.5 F 12/15/22 07:20 Pulse 65 12/15/22 07:20 Resp 20 12/15/22 07:20 BP 121/60 12/15/22 07:20 Pulse Ox 96 12/15/22 07:20 O2 Del Method 12/15/22 07:20 BMI result Body Mass Index 33.9 Const: General: comfortable and no acute distress Nutritional Appearance: well nourished Orientation/consciousness: patient oriented x3 Limitations: no limitations Resp: Effort & Inspection: normal respiratory effort Cardio: Rate: regular rate GI: Inspection: No distended Palpation (GI): Soft to palpation, not firm, Tenderness to palpation present (GI) (minimal tenderness on LLQ) and no guarding Neuro: General: patient oriented x3 Objective Data Active Medications Acetaminophen (Acetaminophen 325 Mg Tablet) 650 mg PO Q6H PRN PRN Reason: Pain, Mild (Pain Scale 1-3) Last Admin: 12/12/22 17:07 Dose: 650 mg Documented By: FLAKITO Clonidine HCl (Clonidine Hcl 0.1 Mg Tablet) 0.1 mg PO TID PRN; Protocol PRN Reason: for anxiety Last Admin: 12/14/22 02:01 Dose: 0.1 mg Documented By: SLIME Enoxaparin Sodium (Enoxaparin Sodium 40 Mg/0.4 Ml Syringe) 40 mg SUBCUT Q24H [facility] Last Admin: 12/14/22 15:22 Dose: 40 mg Documented By: ISRAEL Escitalopram Oxalate (Escitalopram Oxalate 10 Mg Tablet) 10 mg PO DAILY [facility] Last Admin: 12/15/22 07:44 Dose: 10 mg Documented By: ISABELA Levofloxacin (Levaquin) 750 mg in 150 mls @ 100 mls/hr IV Q24H [facility] Stop: 12/16/22 16:59 Last Infusion: 12/14/22 22:04 Dose: 0 mls/hr Documented By: COLETTE Metronidazole (Flagyl) 500 mg in 100 mls @ 100 mls/hr IV Q8H [facility] Stop: 12/16/22 23:59 Last Admin: 12/15/22 07:46 Dose: 100 mls/hr Documented By: ISABELA Ketorolac Tromethamine (Ketorolac Tromethamine 30 Mg/Ml Vial) 30 mg IVPUSH Q6H PRN PRN Reason: Pain, Moderate (Pain Scale 4-6 Stop: 12/15/22 15:29 Last Admin: 12/14/22 20:14 Dose: 30 mg Documented By: COLETTE Lorazepam (Lorazepam 1 Mg Tablet) 1 mg PO BID [facility] Last Admin: 12/15/22 07:44 Dose: 1 mg Documented By: ISABELA Lorazepam (Lorazepam 1 Mg Tablet) 1 mg PO DAILY PRN PRN Reason: anxiety Last Admin: 12/15/22 00:17 Dose: 1 mg Documented By: COLETTE Mesalamine (Mesalamine 250 Mg Capsule.Er) 1,000 mg PO QID [facility] Last Admin: 12/15/22 07:44 Dose: 1,000 mg Documented By: ISABELA Pt Own Med ( Budesonide 3 Mg Capsule,Delayed, Extend.Release) 9 mg PO DAILY [facility] Last Admin: 12/15/22 07:45 Dose: 9 mg Documented By: ISABELA Nystatin (Nystatin Powder 15 Gm Bottle) 1 appl TOPICAL TID [facility]; Protocol Last Admin: 12/15/22 07:46 Dose: 1 appl Documented By: ISABELA Omeprazole (Omeprazole 20 Mg Capsule.Dr) 20 mg PO DAILY@0630 [facility] Last Admin: 12/15/22 05:29 Dose: 20 mg Documented By: COLETTE Ondansetron HCl (Ondansetron Hcl 4 Mg/2 Ml Vial) 4 mg IVPUSH Q4H PRN PRN Reason: Nausea and Vomiting Last Admin: 12/15/22 00:17 Dose: 4 mg Documented By: COLETTE Oxycodone HCl (Oxycodone Hcl Immed Release 5 Mg Tablet) 5 mg PO Q6H PRN PRN Reason: Pain, Moderate (Pain Scale 4-6 Last Admin: 12/14/22 14:34 Dose: 5 mg Documented By: ISRAEL Sodium Chloride (0.9 % Sodium Chloride Flush 3 Ml Syringe) 3 ml IVFLUSH QSHIFT [facility] Last Admin: 12/15/22 07:44 Dose: 3 ml Documented By: ISABELA Zolpidem Tartrate (Zolpidem Tartrate 5 Mg Tablet) 5 mg PO BEDTIME [facility] Last Admin: 12/14/22 20:19 Dose: 5 mg Documented By: COLETTE Labs 12/13/22 06:09 12/15/22 05:11 Labs: Laboratory Results - last 24 hr 12/15/22 05:11 Anion Gap 14 Estim Creat Clear Calc 105.9 Estimated GFR > 60 Random Glucose 79 Calcium 8.7 C-Reactive Protein 1.45 H Procedures Date of Service Date of Service: 12/15/22 Progress Note: A&P Assessment and plan (1) Diverticulitis: Status: Acute Assessment and Plan: 47-year-old female patient presenting with history of anxiety and Crohn's disease, admitted for uncomplicated diverticulitis. Overall the patient is improved with decreased abdominal pain and some liquid bowel movements. Her diet has been advanced slowly is currently on a full liquid diet. She tolerated a portion of this meal this morning without an increase in pain, nausea or vomiting. Continue antibiotics and slow advancement of diet. Would probably keep on full liquids for today. Time Spent With Patient Time: Total time managing care of this patient today ____ minutes. Quality Stroke Does the patient have a stroke diagnosis?: No VTE Prior VTE?: No VTE Risk Level:: Medical - moderate - high VTE Device Contraindication: Treatment Not Indicated VTE Drug Contraindication: N/A - Med Ordered
[2022-12-15] MEDS: oxyCODONE HCl Immed Release 5 MG TABLET PO ×3 (11:36→20:20)
--- NOTE | 2022-12-15 11:43 | HO.PM.IMPN ---
Subjective Subjective Date of Service: 12/15/22 Interval History: Abd pain improved. No fever. Minimal nausea. No vomiting. Passing liquid stool + flatus. Tolerating full liquid diet. Review of Systems Review of Systems: Yes all other systems are reviewed and are negative Physical Exam Vital Signs: Vital Signs: Last Vital Signs Temp 97.5 F 12/15/22 07:20 Pulse 65 12/15/22 07:20 Resp 20 12/15/22 07:20 BP 121/60 12/15/22 07:20 Pulse Ox 96 12/15/22 07:20 O2 Del Method 12/15/22 07:20 BMI result Body Mass Index 33.9 Const: Other: Temp Pulse Resp BP Pulse Ox O2 Del Method 97.5 F 65 20 121/60 96 12/15/22 07:20 12/15/22 07:20 12/15/22 07:20 12/15/22 07:20 12/15/22 07:20 12/15/22 07:20 Gen: in no acute distress HEENT: sclera anicteric, moist mucus membranes Neck: supple Lungs: clear to auscultation bilaterally Heart: regular rate and rhythm, no murmurs Abd: soft, mild tenderness LLQ without rebound Ext: no edema Skin: warm/well-perfused Neuro: alert and oriented x3, no focal findings Psych: appropriate affect Objective Data Active Medications Acetaminophen (Acetaminophen 325 Mg Tablet) 650 mg PO Q6H PRN PRN Reason: Pain, Mild (Pain Scale 1-3) Last Admin: 12/12/22 17:07 Dose: 650 mg Documented By: FLAKITO Clonidine HCl (Clonidine Hcl 0.1 Mg Tablet) 0.1 mg PO TID PRN; Protocol PRN Reason: for anxiety Last Admin: 12/14/22 02:01 Dose: 0.1 mg Documented By: SLIME Enoxaparin Sodium (Enoxaparin Sodium 40 Mg/0.4 Ml Syringe) 40 mg SUBCUT Q24H [facility] Last Admin: 12/14/22 15:22 Dose: 40 mg Documented By: ISRAEL Escitalopram Oxalate (Escitalopram Oxalate 10 Mg Tablet) 10 mg PO DAILY [facility] Last Admin: 12/15/22 07:44 Dose: 10 mg Documented By: ISABELA Levofloxacin (Levaquin) 750 mg in 150 mls @ 100 mls/hr IV Q24H [facility] Stop: 12/16/22 16:59 Last Infusion: 12/14/22 22:04 Dose: 0 mls/hr Documented By: COLETTE Metronidazole (Flagyl) 500 mg in 100 mls @ 100 mls/hr IV Q8H [facility] Stop: 12/16/22 23:59 Last Infusion: 12/15/22 09:40 Dose: 100 mls/hr Documented By: ISABELA Ketorolac Tromethamine (Ketorolac Tromethamine 30 Mg/Ml Vial) 30 mg IVPUSH Q6H PRN PRN Reason: Pain, Moderate (Pain Scale 4-6 Stop: 12/15/22 15:29 Last Admin: 12/14/22 20:14 Dose: 30 mg Documented By: COLETTE Lorazepam (Lorazepam 1 Mg Tablet) 1 mg PO BID [facility] Last Admin: 12/15/22 07:44 Dose: 1 mg Documented By: ISABELA Lorazepam (Lorazepam 1 Mg Tablet) 1 mg PO DAILY PRN PRN Reason: anxiety Last Admin: 12/15/22 00:17 Dose: 1 mg Documented By: COLETTE Mesalamine (Mesalamine 250 Mg Capsule.Er) 1,000 mg PO QID [facility] Last Admin: 12/15/22 07:44 Dose: 1,000 mg Documented By: ISABELA Pt Own Med ( Budesonide 3 Mg Capsule,Delayed, Extend.Release) 9 mg PO DAILY [facility] Last Admin: 12/15/22 07:45 Dose: 9 mg Documented By: ISABELA Nystatin (Nystatin Powder 15 Gm Bottle) 1 appl TOPICAL TID [facility]; Protocol Last Admin: 12/15/22 07:46 Dose: 1 appl Documented By: ISABELA Omeprazole (Omeprazole 20 Mg Capsule.Dr) 20 mg PO DAILY@0630 [facility] Last Admin: 12/15/22 05:29 Dose: 20 mg Documented By: COLETTE Ondansetron HCl (Ondansetron Hcl 4 Mg/2 Ml Vial) 4 mg IVPUSH Q4H PRN PRN Reason: Nausea and Vomiting Last Admin: 12/15/22 11:36 Dose: 4 mg Documented By: ISABELA Oxycodone HCl (Oxycodone Hcl Immed Release 5 Mg Tablet) 5 mg PO Q6H PRN PRN Reason: Pain, Moderate (Pain Scale 4-6 Last Admin: 12/15/22 11:36 Dose: 5 mg Documented By: ISABELA Sodium Chloride (0.9 % Sodium Chloride Flush 3 Ml Syringe) 3 ml IVFLUSH QSHIFT [facility] Last Admin: 12/15/22 07:44 Dose: 3 ml Documented By: ISABELA Zolpidem Tartrate (Zolpidem Tartrate 5 Mg Tablet) 5 mg PO BEDTIME [facility] Last Admin: 12/14/22 20:19 Dose: 5 mg Documented By: COLETTE Labs 12/13/22 06:09 12/15/22 05:11 Labs: Laboratory Results - last 24 hr 12/15/22 05:11 Anion Gap 14 Estim Creat Clear Calc 105.9 Estimated GFR > 60 Random Glucose 79 Calcium 8.7 C-Reactive Protein 1.45 H Assessment and Plan (1) Diverticulitis: Status: Acute Plan hospital d#6 47yo F with Crohn's disease + colonic fistula, hx diverticulitis, hx [facility] admitted for acute diverticulitis having failed outpt ABX [amox-clav x7d] # acute diverticulitis without abscess or perforation - slowly improving; on levofloxacin + metronidazole d#5. continue full liquid diet for now; Gen Surg following # presumptive candidal vulvovaginitis - s/p 1 dose fluconazole # Crohn's disease without acute exacerbation - on budesonide + Pentasa, due for Entyvio 1st week of Dec # depression/anxiety - escitalopram, lorazepam, zolpidem # GERD - PPI # VTE ppx: LMWH # dispo: anticipate home in next 1-2d In my clinical judgment, the patient requires continued inpatient hospitalization for the following reasons: IV ABX Time Spent With Patient Time: Total time managing care of this patient today __40__ minutes. Quality Stroke Does the patient have a stroke diagnosis?: No VTE Prior VTE?: No VTE Risk Level:: Medical - moderate - high VTE Device Contraindication: Treatment Not Indicated VTE Drug Contraindication: N/A - Med Ordered
[2022-12-15] MEDS: Acetaminophen 325 MG TABLET 650 MG PO (15:44)
[2022-12-15] MEDS: Enoxaparin Sodium 40 MG/0.4 ML SYRINGE SUBCUT (15:45)
[2022-12-15 15:46] VITALS: BP 138/78; PULSE 62; RESP 18; TEMP 36.2; O2SAT 98
[2022-12-15] MEDS: cloNIDine HCL 0.1 MG TABLET PO (15:47)
[2022-12-15] MEDS: levoFLOXacin/D5W 750 MG/150 ML PIGGYBACK 100 MG IV (17:02)
[2022-12-15 19:26] VITALS: BP 135/84; PULSE 69; RESP 17; TEMP 36.1; O2SAT 98
[2022-12-15] MEDS: Zolpidem Tartrate 5 MG TABLET PO (20:19)
[2022-12-16] MEDS: cloNIDine HCL 0.1 MG TABLET PO (01:07)
[2022-12-16 04:00] VITALS: BP 97/55; PULSE 65; RESP 20; TEMP 36.7; O2SAT 97
[2022-12-16] MEDS: oxyCODONE HCl Immed Release 5 MG TABLET PO ×4 (06:11→20:59)
[2022-12-16] MEDS: Acetaminophen 325 MG TABLET 650 MG PO (06:12)
[2022-12-16] MEDS: Omeprazole 20 MG CAPSULE.DR PO (06:12)
[2022-12-16] MEDS: metroNIDAZOLE/NS 500 MG/100 ML PIGGYBACK 100 MG IV ×2 (07:37→15:16)
[2022-12-16] MEDS: ondansetron HCL 4 MG/2 ML VIAL IVPUSH ×3 (07:38→21:00)
[2022-12-16] MEDS: 0.9 % Sodium Chloride Flush 3 ML SYRINGE IVFLUSH ×3 (07:38→20:30)
[2022-12-16] MEDS: Mesalamine 250 MG CAPSULE.ER 1000 MG PO ×4 (07:38→20:30)
[2022-12-16] MEDS: Escitalopram Oxalate 10 MG TABLET PO (07:39)
[2022-12-16] MEDS: LORazepam 1 MG TABLET PO ×2 (07:39→20:30)
[2022-12-16 08:00] VITALS: BP 158/80; PULSE 76; RESP 20; TEMP 36.4; O2SAT 99
--- NOTE | 2022-12-16 10:36 | P.PNGS_ITS ---
Subjective Subjective Date of Service: 12/16/22 Patient reports: feels better, pain is less, tolerating liquids well and bowel movement Physical Exam Vital Signs: Vital Signs: Last Vital Signs Temp 97.6 F 12/16/22 08:00 Pulse 76 12/16/22 08:00 Resp 20 12/16/22 08:00 BP 158/80 H 12/16/22 08:00 Pulse Ox 99 12/16/22 08:00 O2 Del Method 12/16/22 08:00 BMI result Body Mass Index 33.9 Const: General: comfortable and no acute distress Nutritional Appearance: well nourished Orientation/consciousness: patient oriented x3 Limitations: no limitations Resp: Effort & Inspection: normal respiratory effort GI: Inspection: Yes normal to inspection Palpation (GI): Soft to palpation, nontender, no guarding and not rigid Skin: General skin exam: no rashes or lesions noted Neuro: General: patient oriented x3 Extrem: General: Yes no pedal edema Objective Data Active Medications Acetaminophen (Acetaminophen 325 Mg Tablet) 650 mg PO Q6H PRN PRN Reason: Pain, Mild (Pain Scale 1-3) Last Admin: 12/16/22 06:12 Dose: 650 mg Documented By: BIRDEMA Clonidine HCl (Clonidine Hcl 0.1 Mg Tablet) 0.1 mg PO TID PRN; Protocol PRN Reason: for anxiety Last Admin: 12/16/22 01:07 Dose: 0.1 mg Documented By: ALISHA Enoxaparin Sodium (Enoxaparin Sodium 40 Mg/0.4 Ml Syringe) 40 mg SUBCUT Q24H [facility] Last Admin: 12/15/22 15:45 Dose: 40 mg Documented By: YULY Escitalopram Oxalate (Escitalopram Oxalate 10 Mg Tablet) 10 mg PO DAILY [facility] Last Admin: 12/16/22 07:39 Dose: 10 mg Documented By: ISABELA Levofloxacin (Levaquin) 750 mg in 150 mls @ 100 mls/hr IV Q24H [facility] Stop: 12/16/22 16:59 Last Infusion: 12/15/22 18:48 Dose: 0 mls/hr Documented By: YULY Metronidazole (Flagyl) 500 mg in 100 mls @ 100 mls/hr IV Q8H [facility] Stop: 12/16/22 23:59 Last Infusion: 12/16/22 09:16 Dose: 199 mls/hr Documented By: ISABELA Lorazepam (Lorazepam 1 Mg Tablet) 1 mg PO BID [facility] Last Admin: 12/16/22 07:39 Dose: 1 mg Documented By: ISABELA Lorazepam (Lorazepam 1 Mg Tablet) 1 mg PO DAILY PRN PRN Reason: anxiety Last Admin: 12/15/22 00:17 Dose: 1 mg Documented By: COLETTE Mesalamine (Mesalamine 250 Mg Capsule.Er) 1,000 mg PO QID [facility] Last Admin: 12/16/22 07:38 Dose: 1,000 mg Documented By: ISABELA Pt Own Med ( Budesonide 3 Mg Capsule,Delayed, Extend.Release) 9 mg PO DAILY [facility] Last Admin: 12/16/22 07:39 Dose: 9 mg Documented By: ISABELA Nystatin (Nystatin Powder 15 Gm Bottle) 1 appl TOPICAL TID [facility]; Protocol Last Admin: 12/15/22 20:22 Dose: 1 appl Documented By: YULY Omeprazole (Omeprazole 20 Mg Capsule.Dr) 20 mg PO DAILY@0630 [facility] Last Admin: 12/16/22 06:12 Dose: 20 mg Documented By: ALISHA Ondansetron HCl (Ondansetron Hcl 4 Mg/2 Ml Vial) 4 mg IVPUSH Q8H PRN PRN Reason: Nausea and Vomiting Last Admin: 12/16/22 07:38 Dose: 4 mg Documented By: ISABELA Oxycodone HCl (Oxycodone Hcl Immed Release 5 Mg Tablet) 5 mg PO Q4H PRN PRN Reason: Pain, Moderate (Pain Scale 4-6 Last Admin: 12/16/22 06:11 Dose: 5 mg Documented By: ALISHA Sodium Chloride (0.9 % Sodium Chloride Flush 3 Ml Syringe) [facility] Last Admin: 12/16/22 07:38 Dose: 3 ml Documented By: ISABELA Zolpidem Tartrate (Zolpidem Tartrate 5 Mg Tablet) 5 mg PO BEDTIME [facility] Last Admin: 12/15/22 20:19 Dose: 5 mg Documented By: YULY Labs 12/13/22 06:09 12/15/22 05:11 Microbiology Microbiology Results: Microbiology 12/10/22 15:04 Blood Culture - Final Blood - Venous No growth after 5 days. 12/10/22 15:04 Blood Culture - Final Blood - Venous No growth after 5 days. Procedures Date of Service Date of Service: 12/16/22 Progress Note: A&P Assessment and plan (1) Diverticulitis: Status: Acute Assessment and Plan: 47-year-old female patient presenting with history of anxiety and Crohn's disease, admitted for uncomplicated diverticulitis. Patient continues to improve with decreased abdominal pain and more normal bowel movement. She is tolerating the full liquid diet without increased pain, nausea or vomiting. Abdominal examination is much improved as well. Will advance to a low residue bland diet today. Possible discharge in the next day or 2 if tolerated. Time Spent With Patient Time: Total time managing care of this patient today ____ minutes. Quality Stroke Does the patient have a stroke diagnosis?: No VTE Prior VTE?: No VTE Risk Level:: Medical - moderate - high VTE Device Contraindication: Treatment Not Indicated VTE Drug Contraindication: N/A - Med Ordered
[2022-12-16] MEDS: Nystatin Powder 15 GM BOTTLE 1 APPL TOPICAL ×2 (10:59→20:37)
--- NOTE | 2022-12-16 12:11 | P.PNIM_ITS ---
Subjective Subjective Date of Service: 12/16/22 Interval History: abd pain improving stool more formed no N/V Review of Systems Review of Systems: Yes all other systems are reviewed and are negative Physical Exam Vital Signs: Vital Signs: Last Vital Signs Temp 97.6 F 12/16/22 08:00 Pulse 76 12/16/22 08:00 Resp 20 12/16/22 08:00 BP 158/80 H 12/16/22 08:00 Pulse Ox 99 12/16/22 08:00 O2 Del Method 12/16/22 08:00 BMI result Body Mass Index 33.9 Const: Other: Temp Pulse Resp BP Pulse Ox O2 Del Method 97.6 F 76 20 158/80 H 99 12/16/22 08:00 12/16/22 08:00 12/16/22 08:00 12/16/22 08:00 12/16/22 08:00 12/16/22 08:00 Gen: in no acute distress HEENT: sclera anicteric, moist mucus membranes Neck: supple Lungs: clear to auscultation bilaterally Heart: regular rate and rhythm, no murmurs Abd: soft, mild tenderness LLQ without rebound Ext: no edema Skin: warm/well-perfused Neuro: alert and oriented x3, no focal findings Psych: appropriate affect Objective Data Active Medications Acetaminophen (Acetaminophen 325 Mg Tablet) 650 mg PO Q6H PRN PRN Reason: Pain, Mild (Pain Scale 1-3) Last Admin: 12/16/22 06:12 Dose: 650 mg Documented By: ALISHA Clonidine HCl (Clonidine Hcl 0.1 Mg Tablet) 0.1 mg PO TID PRN; Protocol PRN Reason: for anxiety Last Admin: 12/16/22 01:07 Dose: 0.1 mg Documented By: ALISHA Enoxaparin Sodium (Enoxaparin Sodium 40 Mg/0.4 Ml Syringe) 40 mg SUBCUT Q24H [facility] Last Admin: 12/15/22 15:45 Dose: 40 mg Documented By: YULY Escitalopram Oxalate (Escitalopram Oxalate 10 Mg Tablet) 10 mg PO DAILY [facility] Last Admin: 12/16/22 07:39 Dose: 10 mg Documented By: ISABELA Levofloxacin (Levaquin) 750 mg in 150 mls @ 100 mls/hr IV Q24H [facility] Stop: 12/16/22 16:59 Last Infusion: 12/15/22 18:48 Dose: 0 mls/hr Documented By: YULY Metronidazole (Flagyl) 500 mg in 100 mls @ 100 mls/hr IV Q8H [facility] Stop: 12/16/22 23:59 Last Infusion: 12/16/22 09:16 Dose: 199 mls/hr Documented By: ISABELA Lorazepam (Lorazepam 1 Mg Tablet) 1 mg PO BID [facility] Last Admin: 12/16/22 07:39 Dose: 1 mg Documented By: ISABELA Lorazepam (Lorazepam 1 Mg Tablet) 1 mg PO DAILY PRN PRN Reason: anxiety Last Admin: 12/15/22 00:17 Dose: 1 mg Documented By: COLETTE Mesalamine (Mesalamine 250 Mg Capsule.Er) 1,000 mg PO QID [facility] Last Admin: 12/16/22 07:38 Dose: 1,000 mg Documented By: ISABELA Pt Own Med ( Budesonide 3 Mg Capsule,Delayed, Extend.Release) 9 mg PO DAILY [facility] Last Admin: 12/16/22 07:39 Dose: 9 mg Documented By: ISABELA Nystatin (Nystatin Powder 15 Gm Bottle) 1 appl TOPICAL TID [facility]; Protocol Last Admin: 12/16/22 10:59 Dose: 1 appl Documented By: XAVI Omeprazole (Omeprazole 20 Mg Capsule.Dr) 20 mg PO DAILY@0630 [facility] Last Admin: 12/16/22 06:12 Dose: 20 mg Documented By: ALISHA Ondansetron HCl (Ondansetron Hcl 4 Mg/2 Ml Vial) 4 mg IVPUSH Q8H PRN PRN Reason: Nausea and Vomiting Last Admin: 12/16/22 07:38 Dose: 4 mg Documented By: ISABELA Oxycodone HCl (Oxycodone Hcl Immed Release 5 Mg Tablet) 5 mg PO Q4H PRN PRN Reason: Pain, Moderate (Pain Scale 4-6 Last Admin: 12/16/22 06:11 Dose: 5 mg Documented By: ALISHA Sodium Chloride (0.9 % Sodium Chloride Flush 3 Ml Syringe) 3 ml IVFLUSH QSHIFT [facility] Last Admin: 12/16/22 07:38 Dose: 3 ml Documented By: HO.YOUB Zolpidem Tartrate (Zolpidem Tartrate 5 Mg Tablet) 5 mg PO BEDTIME [facility] Last Admin: 12/15/22 20:19 Dose: 5 mg Documented By: PUJAIT Labs 12/13/22 06:09 12/15/22 05:11 Microbiology Microbiology Results: Microbiology 12/10/22 15:04 Blood Culture - Final Blood - Venous No growth after 5 days. 12/10/22 15:04 Blood Culture - Final Blood - Venous No growth after 5 days. Assessment and Plan (1) Diverticulitis: Status: Acute Plan hospital d#7 47yo F with Crohn's disease + colonic fistula, hx diverticulitis, hx [facility] admitted for acute diverticulitis having failed outpt ABX [amox-clav x7d] # acute diverticulitis without abscess or perforation - slowly improving; on levofloxacin + metronidazole d#6. Gen Surg following and advanced diet today. # presumptive candidal vulvovaginitis - s/p 1 dose fluconazole # Crohn's disease without acute exacerbation - on budesonide + Pentasa, due for Entyvio 1st week of Dec # depression/anxiety - escitalopram, lorazepam, zolpidem # GERD - PPI # VTE ppx: LMWH # dispo: anticipate home perhaps tomorrow In my clinical judgment, the patient requires continued inpatient hospitalization for the following reasons: IV ABX Time Spent With Patient Time: Total time managing care of this patient today __25__ minutes. Quality Stroke Does the patient have a stroke diagnosis?: No VTE Prior VTE?: No VTE Risk Level:: Medical - moderate - high VTE Device Contraindication: Treatment Not Indicated VTE Drug Contraindication: N/A - Med Ordered
[2022-12-16] MEDS: Enoxaparin Sodium 40 MG/0.4 ML SYRINGE SUBCUT (15:17)
[2022-12-16 15:35] VITALS: BP 125/69; PULSE 75; RESP 16; TEMP 36.1; O2SAT 95
[2022-12-16 19:09] VITALS: BP 142/87; PULSE 82; RESP 17; TEMP 36.3; O2SAT 98
[2022-12-16] MEDS: Zolpidem Tartrate 5 MG TABLET PO (20:30)
[2022-12-17] MEDS: oxyCODONE HCl Immed Release 5 MG TABLET PO ×3 (02:38→13:10)
[2022-12-17 03:40] VITALS: BP 135/84; PULSE 80; RESP 18; TEMP 36.3; O2SAT 98
[2022-12-17] MEDS: Omeprazole 20 MG CAPSULE.DR PO (05:24)
[2022-12-17] MEDS: Acetaminophen 325 MG TABLET 650 MG PO (05:26)
[2022-12-17 07:31] VITALS: BP 142/73; PULSE 65; RESP 18; TEMP 37.1; O2SAT 98
[2022-12-17] MEDS: LORazepam 1 MG TABLET PO (09:06)
[2022-12-17] MEDS: 0.9 % Sodium Chloride Flush 3 ML SYRINGE IVFLUSH (09:06)
[2022-12-17] MEDS: levoFLOXacin 750 MG TABLET PO (09:06)
[2022-12-17] MEDS: ondansetron HCL 4 MG/2 ML VIAL IVPUSH ×2 (09:06→13:10)
[2022-12-17] MEDS: metroNIDAZOLE 500 MG TABLET PO (09:07)
[2022-12-17] MEDS: Mesalamine 250 MG CAPSULE.ER 1000 MG PO ×2 (09:07→13:11)
[2022-12-17] MEDS: Escitalopram Oxalate 10 MG TABLET PO (09:07)
[2022-12-17] MEDS: Nystatin Powder 15 GM BOTTLE 1 APPL TOPICAL (09:11)
--- NOTE | 2022-12-17 11:27 | PM.PNGS ---
Subjective Subjective Date of Service: 12/17/22 Interval history: Continues to feel better Says pain much improved Tolerating diet well Good flatus and BM Physical Exam Vital Signs: Vital Signs: Last Vital Signs Temp 98.7 F 12/17/22 07:31 Pulse 65 12/17/22 07:31 Resp 18 12/17/22 07:31 BP 142/73 H 12/17/22 07:31 Pulse Ox 98 12/17/22 07:31 O2 Del Method 12/17/22 07:31 BMI result Body Mass Index 33.9 Const: General: comfortable and no acute distress Resp: Effort & Inspection: normal respiratory effort Cardio: Rate: regular rate GI: Palpation (GI): Soft to palpation, not firm, nontender and no guarding Objective Data Active Medications Acetaminophen (Acetaminophen 325 Mg Tablet) 650 mg PO Q6H PRN PRN Reason: Pain, Mild (Pain Scale 1-3) Last Admin: 12/17/22 05:26 Dose: 650 mg Documented By: MENDEZ Clonidine HCl (Clonidine Hcl 0.1 Mg Tablet) 0.1 mg PO TID PRN; Protocol PRN Reason: for anxiety Last Admin: 12/16/22 01:07 Dose: 0.1 mg Documented By: COTTIM Enoxaparin Sodium (Enoxaparin Sodium 40 Mg/0.4 Ml Syringe) 40 mg SUBCUT Q24H [facility] Last Admin: 12/16/22 15:17 Dose: 40 mg Documented By: YULY Escitalopram Oxalate (Escitalopram Oxalate 10 Mg Tablet) 10 mg PO DAILY [facility] Last Admin: 12/17/22 09:07 Dose: 10 mg Documented By: ISRAEL Levofloxacin (Levofloxacin 750 Mg Tablet) 750 mg PO Q24H [facility] Last Admin: 12/17/22 09:06 Dose: 750 mg Documented By: ISRAEL Lorazepam (Lorazepam 1 Mg Tablet) 1 mg PO BID [facility] Last Admin: 12/17/22 09:06 Dose: 1 mg Documented By: ISRAEL Mesalamine (Mesalamine 250 Mg Capsule.Er) 1,000 mg PO QID [facility] Last Admin: 12/17/22 09:07 Dose: 1,000 mg Documented By: ISRAEL Metronidazole (Metronidazole 500 Mg Tablet) 500 mg PO Q8H [facility] Last Admin: 12/17/22 09:07 Dose: 500 mg Documented By: ISRAEL Pt Own Med ( Budesonide 3 Mg Capsule,Delayed, Extend.Release) 9 mg PO DAILY [facility] Last Admin: 12/17/22 09:05 Dose: 9 mg Documented By: ISRAEL Nystatin (Nystatin Powder 15 Gm Bottle) 1 appl TOPICAL TID [facility]; Protocol Last Admin: 12/17/22 09:11 Dose: 1 appl Documented By: ISRAEL Omeprazole (Omeprazole 20 Mg Capsule.Dr) 20 mg PO DAILY@0630 [facility] Last Admin: 12/17/22 05:24 Dose: 20 mg Documented By: MENDEZ Ondansetron HCl (Ondansetron Hcl 4 Mg/2 Ml Vial) 4 mg IVPUSH Q4H PRN PRN Reason: Nausea and Vomiting Last Admin: 12/17/22 09:06 Dose: 4 mg Documented By: ISRAEL Oxycodone HCl (Oxycodone Hcl Immed Release 5 Mg Tablet) 5 mg PO Q4H PRN PRN Reason: Pain, Moderate (Pain Scale 4-6 Last Admin: 12/17/22 09:08 Dose: 5 mg Documented By: ISRAEL Sodium Chloride (0.9 % Sodium Chloride Flush 3 Ml Syringe) 3 ml IVFLUSH QSHIFT [facility] Last Admin: 12/17/22 09:06 Dose: 3 ml Documented By: ISRAEL Zolpidem Tartrate (Zolpidem Tartrate 5 Mg Tablet) 5 mg PO BEDTIME [facility] Last Admin: 12/16/22 20:30 Dose: 5 mg Documented By: MENDEZ Labs 12/13/22 06:09 12/15/22 05:11 Procedures Date of Service Date of Service: 12/17/22 Progress Note: A&P Assessment and plan (1) Diverticulitis: Status: Acute Assessment and Plan: Continues to improve Exam very benign Tolerating diet well No fever No leukocytosis She seems to be ready to be discharged home on a prolonged course of oral antibiotics Time Spent With Patient Time: Total time managing care of this patient today ____ minutes. Quality Stroke Does the patient have a stroke diagnosis?: No VTE Prior VTE?: No VTE Risk Level:: Medical - moderate - high VTE Device Contraindication: Treatment Not Indicated VTE Drug Contraindication: N/A - Med Ordered
--- NOTE | 2022-12-17 14:17 | P.DS_ITS ---
DS: Providers Provider Date of Service: 12/17/22 Date of admission: 12/10/22 15:32 Date of discharge: 12/17/22 Primary care physician: Jaswant Frank MD Consults: 12/11/22 09:10 Consult to Gastroenterology Routine Consulting Provider: Matthew Alexis Reason for consultation: diverticultis Has provider been notified: No 12/11/22 18:23 Consult to General Surgery Routine Consulting Provider: Sharif Milan Reason for consultation: Diverticulitis with worsening CT and pain Has provider been notified: No DS: Diagnosis Discharge Diagnosis (1) Diverticulitis: Status: Acute (2) Crohn disease: Status: Acute DS: Summary Hospital Course Hospital Course: from admission H+P by hospitalist MITZY Pace, 12/10/22: 47-year-old female with history of anxiety, Crohn's disease, 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 With left lower quadrant pain has been persisting for nearly 3 weeks and she was seen in our ED on 11/[address] scan showing uncomplicated diverticulitis.? She was prescribed a 7 day course of Augmentin with some improvement in pain but not full resolution. Over the last few days has had increased left lower quadrant pain rated as a 6-7/10 with associated nausea and multiple episodes of vomiting with decreased p.o. intake.? In the ED, vital signs have been stable.? Mild leukocytosis of 12.0.? Renal function electrolyte levels normal.? Urinalysis unremarkable.? CT of the abdomen/pelvis shows worsening diverticulitis at the junction of the descending colon and sigmoid colon with increased inflammation in the surrounding fat without any extra luminal air or drainable fluid collection.? In the ED, she was treated with ceftriaxone. Pt to be admitted for further management of acute diverticulitis having failed outpt oral antibiotics. She does follow with Dr. Yojana wood in GI, last seen 12/04, and receives entivio for her crohns. Per GI lifestyle consultant Dr Matthew Alexis, 12/12/22: Given the patient's clinical history, it seems quite consistent with diverticulitis as opposed to a flare of the Crohn disease.? She does appear to have had some clinical improvement after 24 hours of IV antibiotics, and I will therefore continue that line of treatment along with supportive care.? I would not advance her beyond clear liquid diet.? I will continue following her laboratories and I have also placed a surgical consult in the event she either worsens or does not improve.? At this point, I do not think there is any indication for surgery, but again I think it will be a good idea to have the surgeon involved sooner rather than later in the event things do not go in the right direction. ? At this point, I will continue her outpatient regimen for the Crohn disease with the Pentasa and budesonide.? Her Entyvio will have to be held during this acute infectious process.? I do not think she needs any IV steroids as I do not think it is her Crohn disease that has flared up here, and it will be best to avoid that during what appears to be an acute case of diverticulitis with ongoing infection and inflammation. Per general plastic surgery technician Dr Sharif Milan, 12/12/22: I have reviewed her CAT scan and this shows difficult inflammatory changes surrounding the junction of the descending and proximal sigmoid.? This is consistent with acute diverticulitis.? There is no abscess at this time She seems to have had this initial diagnosis about 2-3 weeks ago.? She had significant improvement but her pain had recurred again last weekend.? Her exam is currently benign.? I would continue with the antibiotic treatment currently with Levaquin and Flagyl.? She may need a prolonged course.? I did tell her that if this is a smoldering type of diverticulitis, she may benefit from resection down the line.? I did have a short discussion with her about this involved, including temporary stoma.? I also explained to her that if she develops significant worsening, as well as perforation, she will need emergent surgery.? This 47yo F with Crohn's disease + colonic fistula, hx diverticulitis, and hx RCC?was admitted for acute diverticulitis having failed outpt ABX [amox-clav x7d]. She slowly improved with bowel rest and IV levofloxacin + metronidazole. GI and General Surgery were consulted. Her diet was gradually advanced as her symptoms improved. She was discharged home to complete 7 more days of PO levofloxacin + metronidazole. She should follow up with GI and Surgery within 1-2 weeks. Time Spent with Patient Time attestation: Total time managing care of this patient today __40__ minutes. Discharge coordination time: Greater than 30 minutes Quality: Safe Use of Opioids Does Pt have an Active Cancer Diagnosis on the Problem List?: No Quality: Stroke Does the patient have a stroke diagnosis?: No Physical Exam Vital Signs: Vital Signs: Last Vital Signs Temp 98.7 F 12/17/22 07:31 Pulse 65 12/17/22 07:31 Resp 18 12/17/22 07:31 BP 142/73 H 12/17/22 07:31 Pulse Ox 98 12/17/22 07:31 O2 Del Method 12/17/22 07:31 BMI result Body Mass Index 33.9 Const: Other: Gen: in no acute distress HEENT: sclera anicteric, moist mucus membranes Neck: supple Lungs: clear to auscultation bilaterally Heart: regular rate and rhythm, no murmurs Abd: soft, non-tender, non-distended Ext: no edema Skin: warm/well-perfused Neuro: alert and oriented x3, no focal findings Psych: appropriate affect DS: Data Data Completed and Pending Completed studies during hospitalization [Text1]: Laboratory Results WBC 6.1 X10*3/uL (4.8-10.8) 12/13/22 06:09 RBC 4.27 X10*6/uL (4.20-5.50) 12/13/22 06:09 Hgb 13.1 g/dl (12.0-16.0) 12/13/22 06:09 Hct 39.3 % (37.0-47.0) 12/13/22 06:09 MCV 92.0 fL (80.0-98.0) 12/13/22 06:09 MCH 30.7 pg (27.0-33.0) 12/13/22 06:09 MCHC 33.3 g/dl (31.0-35.0) 12/13/22 06:09 RDW 13.7 % (11.0-16.0) 12/13/22 06:09 Plt Count 305 X10*3/uL (160-400) 12/13/22 06:09 MPV 10.0 fL (9.4-12.3) 12/13/22 06:09 Immature Gran % (Auto) 0.4 % (0.0-0.4) 12/12/22 06:42 Neut % (Auto) 69.4 % (45-73) 12/12/22 06:42 Lymph % (Auto) 20.5 % (20-40) 12/12/22 06:42 [place] % (Auto) 7.8 % (2-11) 12/12/22 06:42 Eos % (Auto) 1.6 % (0-4) 12/12/22 06:42 Baso % (Auto) 0.3 % (0-2) 12/12/22 06:42 Lymph # (Auto) 1.4 X10*3/uL (1.2-4.9) 12/12/22 06:42 [place] # (Auto) 0.5 X10*3/uL (0.1-1.2) 12/12/22 06:42 Eos # (Auto) 0.1 X10*3/uL (0.0-0.4) 12/12/22 06:42 Baso # (Auto) 0.0 X10*3/uL (0.0-0.2) 12/12/22 06:42 Abs Immat Gran (auto) 0.03 X10*3/uL (0.00-0.03) 12/12/22 06:42 Absolute Neuts (auto) 4.6 x10*3/uL (2.0-8.3) 12/12/22 06:42 Absolute Nucleated RBC 0.000 X10*3/uL (0.0-0.012) 12/13/22 06:09 Nucleated RBC % (auto) 0.0 /100WBC (0.0-0.2) 12/13/22 06:09 ESR 50 MM/HR (0-20) H 12/12/22 06:42 PT 12.9 SEC (10.0-13.1) 12/10/22 10:49 INR 1.1 (0.9-1.1) 12/10/22 10:49 Sodium 140 mmol/L (135-145) 12/15/22 05:11 Potassium 3.9 mmol/L (3.3-5.1) 12/15/22 05:11 Chloride 109 mmol/L (96-108) H 12/15/22 05:11 Carbon Dioxide 21 mmol/L (22-29) L 12/15/22 05:11 Anion Gap 14 (12-20) 12/15/22 05:11 BUN 8 mg/dL (9-16) L 12/15/22 05:11 Creatinine 0.66 mg/dL (0.5-1.4) 12/15/22 05:11 Estim Creat Clear Calc 105.9 12/15/22 05:11 Estimated GFR > 60 12/15/22 05:11 Random Glucose 79 mg/dL (60-115) 12/15/22 05:11 Lactic Acid 1.0 mmol/L (0.5-2.0) 12/10/22 15:04 Calcium 8.7 mg/dL (8.4-10.2) 12/15/22 05:11 Magnesium 1.6 mg/dL (1.6-2.6) 12/10/22 10:49 Total Bilirubin 0.3 mg/dL (0.0-1.0) 12/12/22 06:42 Direct Bilirubin < 0.2 mg/dL (0.0-0.5) 12/12/22 06:42 AST 13 U/L (5-31) 12/12/22 06:42 ALT 7 U/L (0-31) 12/12/22 06:42 Alkaline Phosphatase 72 U/L (39-117) 12/12/22 06:42 C-Reactive Protein 1.45 mg/dL (< or = 0.50) H 12/15/22 05:11 Total Protein 5.8 g/dL (6.5-8.0) L 12/12/22 06:42 Albumin 3.1 g/dL (3.5-5.0) L 12/12/22 06:42 Lipase 10 U/L (8-78) 12/10/22 10:49 Urine Color Yellow 12/10/22 11:28 Urine Appearance Cloudy 12/10/22 11:28 Urine pH 5.5 (5.0-9.0) 12/10/22 11:28 Ur Specific [place] 1.015 (1.005-1.025) 12/10/22 11:28 Urine Protein Negative mg/dL (Neg-Trace) 12/10/22 11:28 Urine Glucose (UA) Negative mg/dL (Negative) 12/10/22 11:28 Urine Ketones Negative mg/dL (Negative) 12/10/22 11:28 Urine Blood Small (1+) (Negative) H 12/10/22 11:28 Urine Nitrite Negative (Negative) 12/10/22 11:28 Ur Leukocyte Esterase Negative (Negative) 12/10/22 11:28 Urine RBC 0-2 /HPF (0-2) 12/10/22 11:28 Urine WBC 0-5 /HPF (0-5) 12/10/22 11:28 Ur Squamous Epith Cells >20 /HPF (0-2) 12/10/22 11:28 Urine Bacteria Trace (None Seen) 12/10/22 11:28 Hyaline Casts 0-2 /LPF (0-2) 12/10/22 11:28 COVID-19 (LORENZO) Negative (Negative) 12/10/22 10:49 COVID-19 Clin Com See Note 12/10/22 10:49 Influenza Type A (MARQUEZ) Negative (Negative) 12/10/22 10:49 Influenza Type B (MARQUEZ) Negative (Negative) 12/10/22 10:49 Influenza A & B Note See Note 12/10/22 10:49 Impressions Abdomen/Pelvis CT 12/10/22 12:52 IMPRESSION: Worsening of diverticulitis at the junction of the descending colon and sigmoid colon. There is increased inflammation in the surrounding fat but no extraluminal air or drainable fluid collection is seen. Fleischner guidelines were followed. Discharge Plan Discharge Anticipated Discharge Date/Time: 12/17/22 14:21 Patient Disposition: Home, Self-Care Discharge Diagnosis: diverticulitis Crohn's disease Referrals: Jaswant Frank MD [Primary Care Provider] - 1 Week Sharif Milan MD [Physician] - 1 Week Matthew Alexis [Physician] - 1 Week Discharge Medications: New metronidazole 500 mg Tablet 500 mg PO Q8H Qty: 21 0RF levofloxacin 750 mg Tablet 750 mg PO Q24H Qty: 7 0RF Continued ondansetron 4 mg tablet,disintegrating 4 mg PO Q8H PRN (Reason: nausea and vomiting) Qty: 20 0RF escitalopram oxalate 10 mg tablet 10 mg PO DAILY 30 Days Qty: 30 2RF clonidine HCl 0.1 mg tablet 0.1 mg PO TID PRN (Reason: for anxiety) Qty: 90 2RF tramadol 50 mg tablet 50 mg PO TID PRN (Reason: pain) 30 Days Qty: 90 0RF zolpidem 12.5 mg tablet,ext release multiphase 12.5 mg PO .COMPLEX 30 Days Qty: 15 2RF Rx Instructions: 12.5 mg orally every other day; lorazepam [Ativan] 1 mg tablet 1 mg PO BID 30 Days Qty: 60 0RF Rx Instructions: Take 1 tablet ONE to TWO TIMES A DAY ONLY NEEDED for increased anxiety; acetaminophen 325 mg Tablet 650 mg PO Q8H PRN (Reason: Pain, Mild (Pain Scale 1-3)) 30 Days 0RF budesonide 3 mg capsule,delayed,extend.release 9 mg PO DAILY mesalamine 500 mg capsule, extended release 500 mg PO QID Mirena 20 mcg/24 hours (6 yrs) 52 mg intrauterine device 1 device intrauterine ONCE omeprazole 20 mg capsule,delayed release(DR/EC) 20 mg PO DAILY diphenoxylate-atropine 2.5-0.025 mg tablet 1 - 2 tab PO Q6H PRN (Reason: Diarrhea) Entyvio 300 mg recon soln 300 mg IV Q4W Rx Instructions: administer over 30 mins dicyclomine 10 mg capsule 10 mg PO BID PRN (Reason: Gastrointestinal Spasms Or Cramping) Discharge Orders: Discharge Order (Routine); Ordered 12/17/22 Ordered By: Lavon Moy Diet: Advance to usual diet Activity on Discharge: As tolerated Stand Alone Forms: Patient Portal Discharge page Care Plan Goals: GI health Health Concerns: diverticulitis Crohn's disease Plan of Treatment: antibiotics as prescribed: - levofloxacin 750 mg daily x 7 days - metronidazole 500 mg 3 times a day x 7 days Follow up with General Surgery and Gastroenterology in 1 week. Please follow up with your primary care doctor within 1 week. Return to the hospital if you experience recurrent or worsening symptoms. Assessment: See Discharge Summary. Patient Instructions: Diverticulitis Diet (DC)
--- NOTE | 2022-12-17 14:36 | MHC.CM.PN ---
PT WILL DC HOME TODAY WITH NO SERVICES PT TO ARRANGE TRANSPORT
== END 2022-12-17 16:21 | disposition home or self-care (01) | DRG 392 ==
LOC: HO.ED 14:36 → HO.EDOVER 15:41 → HO.IMC 17:03 → HO.S3 12-13 18:49
PROVIDERS: Hospitalist; Internal Medicine; Physician Assistant; Admitting Provider Physician Assistant; Emergency Provider Emergency Medicine; PCP Internal Medicine; Visit Provider Family Medicine
DX: K57.32 Diverticulitis of large intestine without perforation or abscess without bleeding (principal); K50.90 Crohn's disease, unspecified, without complications; F32.A Depression, unspecified; F41.9 Anxiety disorder, unspecified; D72.829 Elevated white blood cell count, unspecified; B37.31 Acute candidiasis of vulva and vagina; E66.9 Obesity, unspecified; Z68.33 Body mass index [BMI] 33.0-33.9, adult; Z20.822 Contact with and (suspected) exposure to COVID-19; Z87.891 Personal history of nicotine dependence; Z56.0 Unemployment, unspecified; Z85.05 Personal history of malignant neoplasm of liver; Z91.040 Latex allergy status; Z88.5 Allergy status to narcotic agent; Z88.8 Allergy status to other drugs, medicaments and biological substances; Z79.899 Other long term (current) drug therapy
CPT/HCPCS: 36415; 74177; 80048; 80076; 81001; 83605; 83690; 83735; 85025; 85027; 85610; 85652; 86140; 87040; 87502; 87635; 99285; J0696; J1170; J1200; J1650; J1885; J1956; J2270; J2405; J2765; Q9967

== ENCOUNTER 2023-01-03 09:59 | Outpatient (REF) | payer OTHER, SELFPAY ==
--- NOTE | ~2023-01-03 | CT_ITS ---
EXAMINATION: CT ABDOMEN AND PELVIS WITH CONTRAST CLINICAL INFORMATION: Diverticulitis. COMPARISON: CT scan of the abdomen and pelvis dated 12/10/2022. TECHNIQUE: Multidetector volumetric images were obtained from the superior aspect of the liver through the pubic symphysis following administration 85 mL of Omnipaque 350 intravenous contrast. Sagittal and coronal reformatted images were obtained on the technologist's workstation. Oral contrast: No This CT examination was performed using dose optimization techniques as appropriate, variously including the following: *Automated exposure control *Adjustment of mA and/or kV according to patient size (this includes techniques or standardized protocols for targeted exams where dose is matched to indication/reason for exam; i.e. extremities or head) *Use of iterative reconstruction technique DLP: 5 mGy-cm FINDINGS: LUNG BASES: The visualized lung bases are unremarkable. LIVER, GALLBLADDER, AND BILIARY TREE: Unremarkable. PANCREAS: Unremarkable. SPLEEN: Unremarkable. ADRENAL GLANDS: Unremarkable. KIDNEYS AND URETERS: The kidneys are normal in size, shape, and attenuation. No hydronephrosis, hydroureter, or calculi seen. No perinephric stranding. BLADDER: Unremarkable. GASTROINTESTINAL TRACT: Very small hiatal hernia. The remainder the stomach is unremarkable. The small bowel and appendix are unremarkable. There has been interval improvement in acute diverticulitis at the descending/sigmoid junction with minimal residual infiltrative changes and mural thickening. The rectum is unremarkable. ABDOMINAL WALL: Small fat-containing umbilical hernia. LYMPH NODES: No lymphadenopathy. VASCULAR: Unremarkable. PELVIC VISCERA: Anteverted/anteflexed uterus with IUD in place without abnormality. No adnexal abnormality. OSSEOUS STRUCTURES: Unremarkable. CT/CT abdomen pelvis w IV con IMPRESSION: 1. Interval improvement in the descending/sigmoid diverticulitis with mild residual inflammatory changes. No significant new abnormality.
[2023-01-03] MEDS: iohexoL 350 MG/ML 75 ML INFUS..BTL 85 ML IV (13:14)
[2023-01-03] MEDS: Barium Sulfate Oral (Mocha) 450 ML ORAL.SUSP 900 ML PO (13:14)
== END 2023-01-03 10:00 | disposition home or self-care (01) ==
LOC: HO.CT 09:59
PROVIDERS: Visit Provider Internal Medicine
DX: K57.32 Diverticulitis of large intestine without perforation or abscess without bleeding (principal)
CPT/HCPCS: 74177; Q9967

== ENCOUNTER 2023-01-17 10:11 | Outpatient (REF) | payer OTHER, SELFPAY ==
[2023-01-17 10:43] LABS: MANUAL DIFF FLAG NO
[2023-01-17 10:47] LABS: Basophils Percent Auto 0.3 % (0-2); Eosinophils Absolute Auto 0.1 X10*3/uL (0.0-0.4); Eosinophils Percent Auto 0.9 % (0-4); Hematocrit 43.2 % (37.0-47.0); Hemoglobin 13.9 g/dl (12.0-16.0); Imm Gran Abs Auto 0.07 X10*3/uL (0.00-0.03); Imm Gran Pct Auto 0.7 % (0.0-0.4); Lymphocytes Absolute Auto 1.2 X10*3/uL (1.2-4.9); Lymphocytes Percent Auto 10.7 % (20-40); Mean Corpuscular HGB Conc 32.2 g/dl (31.0-35.0); Mean Corpuscular Hemoglobin 30.6 pg (27.0-33.0); Mean Corpuscular Volume 95.2 fL (80.0-98.0); Mean Platelet Volume 10.1 fL (9.4-12.3); Monocytes Absolute Auto 0.7 X10*3/uL (0.1-1.2); Monocytes Percent Auto 6.7 % (2-11); Neutrophils Absolute Auto 8.7 x10*3/uL (2.0-8.3); Neutrophils Percent Auto 80.7 % (45-73); Platelet Count 265 X10*3/uL (160-400); Red Blood Count 4.54 X10*6/uL (4.20-5.50); Red Cell Distribution Width 14.3 % (11.0-16.0); White Blood Count 10.7 X10*3/uL (4.8-10.8)
[2023-01-17 11:25] LABS: Alanine Aminotransferase 20 U/L (0-31); Albumin Level 3.7 g/dL (3.5-5.0); Alkaline Phosphatase 89 U/L (39-117); Amylase 38 U/L (28-100); Anion Gap 11 (12-20); Aspartate Amino Transferase 14 U/L (5-31); Bilirubin Direct < 0.2 mg/dL (0.0-0.5); Bilirubin Total 0.4 mg/dL (0.0-1.0); Blood Urea Nitrogen 15 mg/dL (9-16); C Reactive Protein 11.31 mg/dL (< or = 0.50); Calcium 9.1 mg/dL (8.4-10.2); Carbon Dioxide 27 mmol/L (22-29); Chloride 104 mmol/L (96-108); Estimated Glomerular Filt Rate > 60; Glucose Random 114 mg/dL (60-115); Lipase 9 U/L (8-78); Potassium 4.3 mmol/L (3.3-5.1); Sodium 138 mmol/L (135-145); Total Protein 6.7 g/dL (6.5-8.0)
[2023-01-17 12:21] LABS: Erythrocyte Sedimentation Rate 38 MM/HR (0-20)
[2023-01-17 14:08] LABS: Appearance Urine Cloudy; Color Urine Dark Yellow; Glucose Urine UA Negative (Negative); Leukocyte Esterase Urine Negative (Negative); Nitrite Urine Negative (Negative); PH 5.5 (5.0-9.0); Specific Gravity - Urine >= 1.030 (1.005-1.025); UMIC TRIGGER UACC YES; Urine Blood Trace (Negative); Urine Ketones Trace mg/dL (Negative); Urine Protein 30 (1+) mg/dL (Neg-Trace)
[2023-01-17 14:10] LABS: Bacteria Urine 4+ (None Seen); Hyaline Casts Urine 0-2 /LPF (0-2); Squamous Epithelial Cell Urine >20 /HPF (0-2); WBC Urine 0-5 /HPF (0-5)
== END 2023-01-17 10:12 | disposition home or self-care (01) ==
LOC: HO.10HDL 10:11
PROVIDERS: Visit Provider Internal Medicine
DX: R10.32 Left lower quadrant pain (principal); K57.32 Diverticulitis of large intestine without perforation or abscess without bleeding; K50.80 Crohn's disease of both small and large intestine without complications
CPT/HCPCS: 36415; 80053; 81001; 82150; 82248; 83690; 85025; 85652; 86140

== ENCOUNTER 2023-01-25 10:44 | Emergency (ER) | payer OTHER, SELFPAY ==
--- NOTE | ~2023-01-25 | CT_ITS ---
EXAMINATION: CT ABDOMEN AND PELVIS WITH CONTRAST CLINICAL INFORMATION: Worsening abdominal pain, rule out diverticulitis COMPARISON: CT scan of the abdomen and pelvis dated 01/03/2023 and 05/01/2021. TECHNIQUE: Multidetector volumetric images were obtained from the superior aspect of the liver through the pubic symphysis following administration 85 mL of Omnipaque 350 intravenous contrast. Sagittal and coronal reformatted images were obtained on the technologist's workstation. Oral contrast: No This CT examination was performed using dose optimization techniques as appropriate, variously including the following: *Automated exposure control *Adjustment of mA and/or kV according to patient size (this includes techniques or standardized protocols for targeted exams where dose is matched to indication/reason for exam; i.e. extremities or head) *Use of iterative reconstruction technique DLP: 623 mGy-cm FINDINGS: LUNG BASES: The visualized lung bases are unremarkable. LIVER, GALLBLADDER, AND BILIARY TREE: Unremarkable. PANCREAS: Unremarkable. SPLEEN: Unremarkable. ADRENAL GLANDS: Unremarkable. KIDNEYS AND URETERS: Right kidney lower pole low-attenuation focus and cortical defect without significant change. The left kidney and bilateral ureters are unremarkable. BLADDER: Minimally distended limiting evaluation without focal abnormality. GASTROINTESTINAL TRACT: Very small hiatal hernia. The remainder the stomach is unremarkable. The small bowel and appendix are unremarkable. Mild to moderate descending/sigmoid diverticulosis is seen with mild to moderate mural thickening and pericolonic infiltrative changes at the descending/sigmoid junction in the left lower quadrant. No overt evidence for perforation or abscess formation. The rectum is unremarkable. ABDOMINAL WALL: Small fat-containing umbilical hernia without abnormality. LYMPH NODES: No lymphadenopathy. VASCULAR: Unremarkable. PELVIC VISCERA: Anteverted/anteflexed uterus with IUD in place. No adnexal abnormality. OSSEOUS STRUCTURES: Unremarkable. CT/CT abdomen pelvis w IV con IMPRESSION: Mild to moderate acute diverticulitis at the descending/sigmoid junction in the left lower quadrant without evidence for perforation or abscess formation. Fleischner guidelines were followed.
[2023-01-25 10:49] VITALS: BP 121/83; PULSE 118; RESP 18; TEMP 36.6; O2SAT 96; BMI 32.9
--- NOTE | 2023-01-25 10:56 | ED_ITS ---
HPI - Abdominal Pain General Chief Complaint: Abdominal Pain <MITZY Gomez - Last Filed: 01/25/23 11:00> Stated Complaint: lower left abd pain, h/o diverticulitis <MITZY Gomez - Last Filed: 01/25/23 11:00> Time Seen by Provider: 01/25/23 12:17 <MITZY Gomez - Last Filed: 01/25/23 11:00> Source: patient <MITZY Ortiz - Last Filed: 01/25/23 19:06> Mode of arrival: ambulatory <MITZY Ortiz Last Filed: 01/25/23 19:06> Limitations: no limitations <MITZY Ortiz Last Filed: 01/25/23 19:06> History of Present Illness HPI narrative: Patient is a 47 year old assigned female at with a history of Crohn's disease and diverticulitis presenting to the emergency department today with a diverticulitis flare. Patient states that she has been having 7 days of abdominal pain and was diagnosed with diverticulitis however, she could not stand the pain any longer so she came to the ER. Patient states that she sees Dr. Alexis and he recommended she come in. Patient states that she has 2 days left of levaquin and flagyl at home. Patient denies any dizziness, lightheadedness, vomiting, fever, chills, blurry vision, double vision, loss of vision, chest pain, difficulty breathing, shortness of breath, back pain, night sweats, pain with urination, increased urinary frequency, increased urinary urgency, blood in her urine or stool, syncope or a near syncopal episode, recent trauma or falls, bowel incontinence, bladder incontinence, bowel retention, bladder retention, or any other complaints at this time. <MITZY Ortiz - Last Filed: 01/25/23 19:06> MD elicited complaint: abdominal pain <MITZY Ortiz Last Filed: 01/25/23 19:06> Pertinent past history: diverticulitis <MITZY Ortiz - Last Filed: 01/25/23 19:06> Onset (ago): day(s) (7) <MITZY Ortiz Last Filed: 01/25/23 19:06> Pain Consistency: constant <MITZY Ortiz - Last Filed: 01/25/23 19:06> Severity: moderate <MITZY Ortiz - Last Filed: 01/25/23 19:06> Pain scale (0-10): 5 <MITZY Ortiz - Last Filed: 01/25/23 19:06> Quality: aching <MITZY Ortiz - Last Filed: 01/25/23 19:06> Radiation: none <MITZY Ortiz - Last Filed: 01/25/23 19:06> Exacerbating factors: nothing <MITZY Ortiz - Last Filed: 01/25/23 19:06> Relieving factors: nothing <MITZY Ortiz Last Filed: 01/25/23 19:06> Associated symptoms: nausea <MITZY Ortiz Last Filed: 01/25/23 19:06> Related Data Home Medications: Home Medications Medication Instructions Recorded Confirmed levonorgestrel 20 mcg/24 hours (8 1 device intrauterine ONCE 10/04/20 12/10/22 yrs) 52 mg intrauterine device (Mirena) omeprazole 20 mg capsule,delayed 20 mg PO DAILY 12/05/20 12/10/22 release diphenoxylate-atropine 2.5 1 - 2 tab PO Q6H PRN Diarrhea 05/04/22 12/10/22 mg-0.025 mg tablet dicyclomine 10 mg capsule 10 mg PO BID PRN Gastrointestinal 07/17/22 12/10/22 Spasms Or Cramping vedolizumab 300 mg intravenous 300 mg IV Q4W 10/16/22 12/10/22 solution (Entyvio) budesonide 3 mg 9 mg PO DAILY 11/14/22 12/10/22 capsule,delayed,extended release mesalamine 500 mg capsule,extended 500 mg PO QID 11/14/22 12/10/22 release Previous Rx's Medication Instructions Recorded acetaminophen 325 mg tablet 650 mg PO Q8H PRN Pain, Mild (Pain 04/29/21 Scale 1-3) 30 days ondansetron 4 mg disintegrating 4 mg PO Q8H PRN nausea and 06/05/22 tablet vomiting #20 tabs clonidine HCl 0.1 mg tablet 0.1 mg PO TID PRN for anxiety #90 11/05/22 tabs zolpidem 12.5 mg tablet,extended 12.5 mg PO .COMPLEX 30 days #15 12/12/22 release,multiphase tabs levofloxacin 750 mg tablet 750 mg PO Q24H #7 tabs 12/17/22 metronidazole 500 mg tablet 500 mg PO Q8H #21 tabs 12/17/22 escitalopram oxalate 10 mg tablet 10 mg PO DAILY 30 days #90 tabs 01/07/23 lorazepam 1 mg tablet (Ativan) 1 mg PO BID anxiety 30 days #60 01/18/23 tabs tramadol 50 mg tablet 50 mg PO TID PRN pain 30 days #90 01/25/23 tabs <MITZY Gomez - Last Filed: 01/25/23 11:00> Allergies/Adverse Reactions: Allergies Allergy/AdvReac Type Severity Reaction Status Date / Time meperidine [From Demerol] Allergy Severe SWELLING,RASH,THROAT Verified 12/10/22 09:57 CLOSES latex [LATEX] Allergy Mild RASH Verified 12/10/22 09:57 codeine [Codeine] AdvReac Intermediate NAUSEA/VOMITING, Verified 12/10/22 09:57 GI upset/vomiting trazodone AdvReac Mild Anxiety Verified 12/10/22 17:40 Fish Containing Products AdvReac Unknown NAUSEA/VOMI Verified 12/10/22 09:57 [Fish Product Derivatives] TING <MITZY Gomez Last Filed: 01/25/23 11:00> Review of Systems Constitutional: Reports no additional constitutional complaints, Denies chills, Denies fever(s) and Denies night sweats <MITZY Ortiz Last Filed: 01/25/23 19:06> Eyes: Reports no additional eye complaints, Denies blurry vision, Denies change in vision, Denies diplopia, Denies eye discharge, Denies loss of vision and Denies eye pain <MITZY Ortiz Last Filed: 01/25/23 19:06> Denies dizziness <MITZY Ortiz Last Filed: 01/25/23 19:06> Cardiovascular: Reports no additional cardiovascular complaints, Denies chest pain, Denies lightheadedness, Denies Loss of Consciousness and Denies dyspnea <MITZY Ortiz Last Filed: 01/25/23 19:06> Respiratory: Reports no additional respiratory complaints and Denies dyspnea <MITZY Ortiz - Last Filed: 01/25/23 19:06> Gastrointestinal: Reports no additional gastrointestinal complaints, Reports abdominal pain, Denies melena, Denies hematochezia, Denies change in bowel habits, Denies change in stool character and Reports nausea <MITZY Ortiz - Last Filed: 01/25/23 19:06> Genitourinary: Denies hematuria, Denies urinary frequency, Denies dysuria, Denies urinary incontinence, Denies urinary hesitancy and Denies urinary urgency <MITZY Ortiz - Last Filed: 01/25/23 19:06> Musculoskeletal: Reports no additional musculoskeletal complaints, Denies numbness and Denies tingling <MITZY Ortiz - Last Filed: 01/25/23 19:06> Denies dizziness, Denies loss of vision, Denies numbness and Denies tingling <MITZY Ortiz - Last Filed: 01/25/23 19:06> Psychiatric: Reports no additional psychiatric complaints <MITZY Ortiz - Last Filed: 01/25/23 19:06> Endocrine: Reports no additional endocrine complaints <MITZY Ortiz - Last Filed: 01/25/23 19:06> Hematologic/Lymphatic: Reports no additional hematologic/lymphatic complaints <MITZY Ortiz - Last Filed: 01/25/23 19:06> Allergic/Immunologic: Reports no additional allergic/immunologic complaints <MITZY Ortiz - Last Filed: 01/25/23 19:06> [facility] Past Medical History Attestation statement: The following information was validated with the patient. 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 History of renal cell cancer (~2014) Insomnia Intractable nausea and vomiting Lumbar degenerative disc disease Migraine Obesity (BMI 30-39.9) Osteoarthritis of hips, bilateral <MITZY Gomez - Last Filed: 01/25/23 11:00> Surgical History: Surgical History History of arthroplasty (~01/2012) History of cryosurgery (~04/20/15) History of esophagogastroduodenoscopy (EGD) History of intestinal surgery History of removal of calculus of renal pelvis through percutaneous nephrostomy (~10/2015) Hx of colonoscopy <MITZY Gomez - Last Filed: 01/25/23 11:00> Family History Family History: Family History Father Crohn disease Migraine Cancer Mother HTN (hypertension) Vertigo Cervical cancer Maternal Grandmother HTN (hypertension) Hyperlipidemia Diabetes mellitus Paternal Grandmother Diabetes mellitus Other Mental health problem <MITZY Gomez - Last Filed: 01/25/23 11:00> Social History Social History: Social History Household Members: Family and Children Housing: House Do you presently have visiting nurse or other home services: No Alcohol intake: current Alcohol intake frequency: holidays/special occasions only Patient Tobacco Use Status: Former Tobacco user Tobacco use type: Cigarette e-Cigarette/Vaping Use: Former Use Second Hand Smoke Exposure: No Advance Directives: Yes Advance Directives on File: Yes Advance Directives Date on File: 06/15/22 service: No Current occupational status: unemployed Gender identity: Female Cognitive needs: No Hearing needs: No Vision needs: Yes (glasses) <MITZY Gomez - Last Filed: 01/25/23 11:00> Physical Exam ED Vital Signs: Vital Signs - 24 hr 01/25/23 10:49 Temperature 98 F Pulse Rate 118 H Respiratory Rate 18 Blood Pressure 121/83 Pulse Oximetry 96 Oxygen Delivery Method Room Air BMI result Body Mass Index 32.9 <MITZY Gomez - Last Filed: 01/25/23 11:00> Vital Signs - 24 hr 01/25/23 10:49 Temperature 98 F Pulse Rate 118 H Respiratory Rate 18 Blood Pressure 121/83 Pulse Oximetry 96 Oxygen Delivery Method Room Air BMI result Body Mass Index 32.9 <MITZY Ortiz - Last Filed: 01/25/23 19:06> Const General: cooperative, no acute distress, alert and awake <MITZY Ortiz - Last Filed: 01/25/23 19:06> Nutritional Appearance: well nourished <MITZY Ortiz - Last Filed: 01/25/23 19:06> Orientation/consciousness: patient oriented x3 <MITZY Ortiz - Last Filed: 01/25/23 19:06> Limitations: no limitations <MITZY Ortiz - Last Filed: 01/25/23 19:06> HENMT Head: Yes normal to inspection and Yes atraumatic <MITZY Ortiz - Last Filed: 01/25/23 19:06> Ears: hearing grossly normal bilaterally and external ears normal <MITZY Ortiz - Last Filed: 01/25/23 19:06> General nose exam: Normal external nose present, no nasal discharge noted and no epistaxis <MITZY Ortiz - Last Filed: 01/25/23 19:06> Face and sinus: Yes normal facial exam, No abrasion and No laceration <MITZY Ortiz - Last Filed: 01/25/23 19:06> Mouth: Normal oral and palatal mucosa present, no drooling and no muffled voice <Karen Araiza [place] - Last Filed: 01/25/23 19:06> Eyes General: appearance normal, both eyes and all related structures <MITZY Ortiz - Last Filed: 01/25/23 19:06> Periorbital: periorbital findings normal <MITZY Ortiz - Last Filed: 01/25/23 19:06> Eyelids: Yes eyelids normal <MITZY Ortiz - Last Filed: 01/25/23 19:06> Conjunctivae: conjunctivae normal <MITZY Ortiz - Last Filed: 01/25/23 19:06> Pupils: Equal, round and reactive pupils present <MITZY Ortiz - Last Filed: 01/25/23 19:06> EOM: EOMs intact bilaterally <MITZY Ortiz - Last Filed: 01/25/23 19:06> Neck Neck: Yes normal visual inspection, Yes full ROM and Yes no lymphadenopathy <Karen Araiza PA - Last Filed: 01/25/23 19:06> Chest Chest palpation & inspection: normal inspection of the chest <Karen Araiza PA - Last Filed: 01/25/23 19:06> Resp Effort & Inspection: normal respiratory effort and able to speak in complete sentences <Karen Araiza PA - Last Filed: 01/25/23 19:06> Auscultation: clear to auscultation bilaterally <Karen Araiza PA - Last Filed: 01/25/23 19:06> Cardio Rate: regular rate <Karen Araiza [place] - Last Filed: 01/25/23 19:06> Rhythm: regular rhythm <Karen Araiza [place] - Last Filed: 01/25/23 19:06> GI Inspection: Yes normal to inspection <Karen Araiza NJ - Last Filed: 01/25/23 19:06> Palpation (GI): Soft to palpation, not firm, Tenderness to palpation present (GI) in the LLQ, no guarding and not rigid <Karen Araiza PA - Last Filed: 01/25/23 19:06> Neuro General: patient oriented x3 and moves all extremities <Karen Araiza NJ - Last Filed: 01/25/23 19:06> Cranial nerves: Yes Equal, round and reactive pupils present <Karen Araiza NJ - Last Filed: 01/25/23 19:06> Cognition (Neuro): normal cognition <Karen Araiza PA - Last Filed: 01/25/23 19:06> Motor exam (neuro): 5/5 motor strength present throughout <Karen Araiza PA - Last Filed: 01/25/23 19:06> Sensory Exam: Normal double simultaneous stimulation for sensation <Karen Araiza PA - Last Filed: 01/25/23 19:06> Coordination: [id number] test normal <Karen Araiza PA - Last Filed: 01/25/23 19:06> Extrem General: Yes normal to inspection, Yes full ROM and Yes capillary refill normal <Karen Araiza PA - Last Filed: 01/25/23 19:06> Psych Appearance: grossly normal <MITZY Ortiz - Last Filed: 01/25/23 19:06> Mental Status: mental status grossly normal <MITZY Ortiz - Last Filed: 01/25/23 19:06> Affect: normal affect <MITZY Ortiz Last Filed: 01/25/23 19:06> Attitude: cooperative <MITZY Ortiz - Last Filed: 01/25/23 19:06> Thought process: Normal thought process present <MITZY Ortiz Last Filed: 01/25/23 19:06> Thought content: Normal thought content present <MITZY Ortiz Last Filed: 01/25/23 19:06> Insight: Good insight present (Psych) <MITZY Ortiz Last Filed: 01/25/23 19:06> Course Course Course Narrative: RME - 47 yo female with history of Crohn's, recurrent diverticulitis currently on antibiotic presents to the ER for 7 days of worsening LLQ abd pain that radiates to the middle abdomen. Follows w/ Dr. Alexis who has been wanted to get her a CT scan pending insurance approval. Tachycardic and in pain in triage. Plan: labs and CT scan w/ contrast to assess for diverticulitis and possibly developing abscess <MITZY Gomez - Last Filed: 01/25/23 11:00> Medical Decision Making Medical Decision Making MDM Narrative: Patient is a 47 year old assigned female at with a history of diverticulitis and Crohn's presenting to the emergency department today with abdominal pain and a current diverticulitis flare. Patient's physical exam showed mild tenderness to palpation of the left lower abdominal quadrant but was otherwise unremarkable. Patient's blood work showed a slightly elevated WBC count of 11.2, an ESR of 23, and a CRP of 2.16. Patient's abdomen/pelvis CT showed acute diverticulitis in the descending/sigmoid junction with no abscess or perforation. I spoke to Dr. Alexis who recommended the patient be discharged, finish her antibiotics, and follow up with his office. I explained my physical exam findings as well as all test results to the patient. I answered all questions asked by the patient. Patient received IV dilaudid and Zofran which she stated helped her symptoms significantly. I stressed the importance of the patient taking her medication as prescribed. I stressed the importance of the patient following up with her primary care provider and Dr. Alexis. I stressed the importance of the patient returning to the emergency department immediately if her symptoms were to worsen or if she were to develop any dizziness, shortness of breath, difficulty breathing, chest pain, blurry vision, loss of vision, nausea, vomiting, abdominal pain, fever, chills, back pain, or any other complaints. Patient verbalized agreement and understanding with this treatment plan and discharge. <MITZY Ortiz - Last Filed: 01/25/23 19:06> Differential Diagnosis Differential Diagnoses: The differential diagnosis associated with the presentation includes <MITZY Ortiz - Last Filed: 01/25/23 19:06> diverticulitis <MITZY Ortiz - Last Filed: 01/25/23 19:06> Consult Healthcare Provider Management of the patient was discussed with: [employer] Professor (spoke to Dr. Alexis as noted in the MDM section of this chart) <MITZY Ortiz - Last Filed: 01/25/23 19:06> Lab Data [facility] Lab Attestation statement: I reviewed the patient's lab results. <MITZY Ortiz - Last Filed: 01/25/23 19:06> Result Diagrams: 01/25/23 11:33 01/25/23 11:33 <MITZY Gomez - Last Filed: 01/25/23 11:00> Labs: Lab Results 01/25/23 01/25/23 01/25/23 Range/Units 11:33 11:33 11:33 WBC 11.2 H (4.8-10.8) X10*3/uL RBC 4.43 (4.20-5.50) X10*6/uL Hgb 13.7 (12.0-16.0) g/dl Hct 41.8 (37.0-47.0) % MCV 94.4 (80.0-98.0) fL MCH 30.9 (27.0-33.0) pg MCHC 32.8 (31.0-35.0) g/dl RDW 14.3 (11.0-16.0) % Plt Count 354 D (160-400) X10*3/uL MPV 9.9 (9.4-12.3) fL Immature Gran % (Auto) 0.6 H (0.0-0.4) % Neut % (Auto) 79.4 H (45-73) % Lymph % (Auto) 10.7 L (20-40) % [place] % (Auto) 7.7 (2-11) % Eos % (Auto) 1.2 (0-4) % Baso % (Auto) 0.4 (0-2) % Lymph # (Auto) 1.2 (1.2-4.9) X10*3/uL [place] # (Auto) 0.9 (0.1-1.2) X10*3/uL Eos # (Auto) 0.1 (0.0-0.4) X10*3/uL Baso # (Auto) 0.0 (0.0-0.2) X10*3/uL Abs Immat Gran (auto) 0.07 H (0.00-0.03) X10*3/uL Absolute Neuts (auto) 8.9 H (2.0-8.3) x10*3/uL Absolute Nucleated RBC 0.000 (0.0-0.012) X10*3/uL Nucleated RBC % (auto) 0.0 (0.0-0.2) /100WBC ESR 23 H (0-20) MM/HR Sodium 137 (135-145) mmol/L Potassium 4.2 (3.3-5.1) mmol/L Chloride 105 (96-108) mmol/L Carbon Dioxide 25 (22-29) mmol/L Anion Gap 11 L (12-20) BUN 13 (9-16) mg/dL Creatinine 0.80 (0.5-1.4) mg/dL Estim Creat Clear Calc 86.0 Estimated GFR > 60 Random Glucose 107 (60-115) mg/dL Lactic Acid (0.5-2.0) mmol/L Calcium 9.0 (8.4-10.2) mg/dL Magnesium 1.7 (1.6-2.6) mg/dL Total Bilirubin 0.3 (0.0-1.0) mg/dL Direct Bilirubin < 0.2 (0.0-0.5) mg/dL AST 11 (5-31) U/L ALT 9 (0-31) U/L Alkaline Phosphatase 80 (39-117) U/L C-Reactive Protein 2.16 H (< or = 0.50) mg/dL Total Protein 6.4 L (6.5-8.0) g/dL Albumin 3.6 (3.5-5.0) g/dL Urine Color Urine Appearance Urine pH (5.0-9.0) Ur Specific [place] (1.005-1.025) Urine Protein (Neg-Trace) mg/dL Urine Glucose (UA) (Negative) mg/dL Urine Ketones (Negative) mg/dL Urine Blood (Negative) Urine Nitrite (Negative) Ur Leukocyte Esterase (Negative) Urine RBC (0-2) /HPF Urine WBC (0-5) /HPF Ur Squamous Epith Cells (0-2) /HPF Urine Bacteria (None Seen) Hyaline Casts (0-2) /LPF COVID-19 ([facility]) (Negative) COVID-19 Clin Com 01/25/23 01/25/23 01/25/23 Range/Units 11:33 11:33 11:37 WBC (4.8-10.8) X10*3/uL RBC (4.20-5.50) X10*6/uL Hgb (12.0-16.0) g/dl Hct (37.0-47.0) % MCV (80.0-98.0) fL MCH (27.0-33.0) pg MCHC (31.0-35.0) g/dl RDW (11.0-16.0) % Plt Count (160-400) X10*3/uL MPV (9.4-12.3) fL Immature Gran % (Auto) (0.0-0.4) % Neut % (Auto) (45-73) % Lymph % (Auto) (20-40) % [place] % (Auto) (2-11) % Eos % (Auto) (0-4) % Baso % (Auto) (0-2) % Lymph # (Auto) (1.2-4.9) X10*3/uL [place] # (Auto) (0.1-1.2) X10*3/uL Eos # (Auto) (0.0-0.4) X10*3/uL Baso # (Auto) (0.0-0.2) X10*3/uL Abs Immat Gran (auto) (0.00-0.03) X10*3/uL Absolute Neuts (auto) (2.0-8.3) x10*3/uL Absolute Nucleated RBC (0.0-0.012) X10*3/uL Nucleated RBC % (auto) (0.0-0.2) /100WBC ESR (0-20) MM/HR Sodium (135-145) mmol/L Potassium (3.3-5.1) mmol/L Chloride (96-108) mmol/L Carbon Dioxide (22-29) mmol/L Anion Gap (12-20) BUN (9-16) mg/dL Creatinine (0.5-1.4) mg/dL Estim Creat Clear Calc Estimated GFR Random Glucose (60-115) mg/dL Lactic Acid 1.1 (0.5-2.0) mmol/L Calcium (8.4-10.2) mg/dL Magnesium (1.6-2.6) mg/dL Total Bilirubin (0.0-1.0) mg/dL Direct Bilirubin (0.0-0.5) mg/dL AST (5-31) U/L ALT (0-31) U/L Alkaline Phosphatase (39-117) U/L C-Reactive Protein (< or = 0.50) mg/dL Total Protein (6.5-8.0) g/dL Albumin (3.5-5.0) g/dL Urine Color Dark Yellow Urine Appearance Cloudy Urine pH 5.0 (5.0-9.0) Ur Specific [place] >= 1.030 H (1.005-1.025) Urine Protein Trace (Neg-Trace) mg/dL Urine Glucose (UA) Negative (Negative) mg/dL Urine Ketones Trace (Negative) mg/dL Urine Blood Trace H (Negative) Urine Nitrite Negative (Negative) Ur Leukocyte Esterase Small (1+) H (Negative) Urine RBC 3-5 H (0-2) /HPF Urine WBC 0-5 (0-5) /HPF Ur Squamous Epith Cells >20 (0-2) /HPF Urine Bacteria None Seen (None Seen) Hyaline Casts 3-5 (0-2) /LPF COVID-19 ([facility]) Negative (Negative) COVID-19 Clin Com See Note <MITZY Gomez - Last Filed: 01/25/23 11:00> Lab Results 01/25/23 01/25/23 01/25/23 Range/Units 11:33 11:33 11:33 WBC 11.2 H (4.8-10.8) X10*3/uL RBC 4.43 (4.20-5.50) X10*6/uL Hgb 13.7 (12.0-16.0) g/dl Hct 41.8 (37.0-47.0) % MCV 94.4 (80.0-98.0) fL MCH 30.9 (27.0-33.0) pg MCHC 32.8 (31.0-35.0) g/dl RDW 14.3 (11.0-16.0) % Plt Count 354 D (160-400) X10*3/uL MPV 9.9 (9.4-12.3) fL Immature Gran % (Auto) 0.6 H (0.0-0.4) % Neut % (Auto) 79.4 H (45-73) % Lymph % (Auto) 10.7 L (20-40) % [place] % (Auto) 7.7 (2-11) % Eos % (Auto) 1.2 (0-4) % Baso % (Auto) 0.4 (0-2) % Lymph # (Auto) 1.2 (1.2-4.9) X10*3/uL [place] # (Auto) 0.9 (0.1-1.2) X10*3/uL Eos # (Auto) 0.1 (0.0-0.4) X10*3/uL Baso # (Auto) 0.0 (0.0-0.2) X10*3/uL Abs Immat Gran (auto) 0.07 H (0.00-0.03) X10*3/uL Absolute Neuts (auto) 8.9 H (2.0-8.3) x10*3/uL Absolute Nucleated RBC 0.000 (0.0-0.012) X10*3/uL Nucleated RBC % (auto) 0.0 (0.0-0.2) /100WBC ESR 23 H (0-20) MM/HR Sodium 137 (135-145) mmol/L Potassium 4.2 (3.3-5.1) mmol/L Chloride 105 (96-108) mmol/L Carbon Dioxide 25 (22-29) mmol/L Anion Gap 11 L (12-20) BUN 13 (9-16) mg/dL Creatinine 0.80 (0.5-1.4) mg/dL Estim Creat Clear Calc 86.0 Estimated GFR > 60 Random Glucose 107 (60-115) mg/dL Lactic Acid (0.5-2.0) mmol/L Calcium 9.0 (8.4-10.2) mg/dL Magnesium 1.7 (1.6-2.6) mg/dL Total Bilirubin 0.3 (0.0-1.0) mg/dL Direct Bilirubin < 0.2 (0.0-0.5) mg/dL AST 11 (5-31) U/L ALT 9 (0-31) U/L Alkaline Phosphatase 80 (39-117) U/L C-Reactive Protein 2.16 H (< or = 0.50) mg/dL Total Protein 6.4 L (6.5-8.0) g/dL Albumin 3.6 (3.5-5.0) g/dL Urine Color Urine Appearance Urine pH (5.0-9.0) Ur Specific [place] (1.005-1.025) Urine Protein (Neg-Trace) mg/dL Urine Glucose (UA) (Negative) mg/dL Urine Ketones (Negative) mg/dL Urine Blood (Negative) Urine Nitrite (Negative) Ur Leukocyte Esterase (Negative) Urine RBC (0-2) /HPF Urine WBC (0-5) /HPF Ur Squamous Epith Cells (0-2) /HPF Urine Bacteria (None Seen) Hyaline Casts (0-2) /LPF COVID-19 ([facility]) (Negative) COVID-19 Clin Com 01/25/23 01/25/23 01/25/23 Range/Units 11:33 11:33 11:37 WBC (4.8-10.8) X10*3/uL RBC (4.20-5.50) X10*6/uL Hgb (12.0-16.0) g/dl Hct (37.0-47.0) % MCV (80.0-98.0) fL MCH (27.0-33.0) pg MCHC (31.0-35.0) g/dl RDW (11.0-16.0) % Plt Count (160-400) X10*3/uL MPV (9.4-12.3) fL Immature Gran % (Auto) (0.0-0.4) % Neut % (Auto) (45-73) % Lymph % (Auto) (20-40) % [place] % (Auto) (2-11) % Eos % (Auto) (0-4) % Baso % (Auto) (0-2) % Lymph # (Auto) (1.2-4.9) X10*3/uL [place] # (Auto) (0.1-1.2) X10*3/uL Eos # (Auto) (0.0-0.4) X10*3/uL Baso # (Auto) (0.0-0.2) X10*3/uL Abs Immat Gran (auto) (0.00-0.03) X10*3/uL Absolute Neuts (auto) (2.0-8.3) x10*3/uL Absolute Nucleated RBC (0.0-0.012) X10*3/uL Nucleated RBC % (auto) (0.0-0.2) /100WBC ESR (0-20) MM/HR Sodium (135-145) mmol/L Potassium (3.3-5.1) mmol/L Chloride (96-108) mmol/L Carbon Dioxide (22-29) mmol/L Anion Gap (12-20) BUN (9-16) mg/dL Creatinine (0.5-1.4) mg/dL Estim Creat Clear Calc Estimated GFR Random Glucose (60-115) mg/dL Lactic Acid 1.1 (0.5-2.0) mmol/L Calcium (8.4-10.2) mg/dL Magnesium (1.6-2.6) mg/dL Total Bilirubin (0.0-1.0) mg/dL Direct Bilirubin (0.0-0.5) mg/dL AST (5-31) U/L ALT (0-31) U/L Alkaline Phosphatase (39-117) U/L C-Reactive Protein (< or = 0.50) mg/dL Total Protein (6.5-8.0) g/dL Albumin (3.5-5.0) g/dL Urine Color Dark Yellow Urine Appearance Cloudy Urine pH 5.0 (5.0-9.0) Ur Specific [place] >= 1.030 H (1.005-1.025) Urine Protein Trace (Neg-Trace) mg/dL Urine Glucose (UA) Negative (Negative) mg/dL Urine Ketones Trace (Negative) mg/dL Urine Blood Trace H (Negative) Urine Nitrite Negative (Negative) Ur Leukocyte Esterase Small (1+) H (Negative) Urine RBC 3-5 H (0-2) /HPF Urine WBC 0-5 (0-5) /HPF Ur Squamous Epith Cells >20 (0-2) /HPF Urine Bacteria None Seen (None Seen) Hyaline Casts 3-5 (0-2) /LPF COVID-19 ([facility]) Negative (Negative) COVID-19 Clin Com See Note <MITZY Ortiz - Last Filed: 01/25/23 19:06> Independent Interpretation I performed an independent interpretation of an: CT Scan <MITZY Ortiz - Last Filed: 01/25/23 19:06> Interpretation: My interpretation is in agreement with the radiologist's impression of this imaging study. EXAMINATION: CT ABDOMEN AND PELVIS WITH CONTRAST? CLINICAL INFORMATION: Worsening abdominal pain, rule out diverticulitis? COMPARISON: CT scan of the abdomen and pelvis dated 01/03/2023 and 05/01/2021.? TECHNIQUE: Multidetector volumetric images were obtained from the superior aspect of the liver through the pubic symphysis following administration 85 mL of Omnipaque 350 intravenous contrast. Sagittal and coronal reformatted images were obtained on the technologist's workstation.? Oral contrast: No This CT examination was performed using dose optimization techniques as appropriate, variously including the following: *Automated exposure control *Adjustment of mA and/or kV according to patient size (this includes techniques or standardized protocols for targeted exams where dose is matched to indication/reason for exam; i.e. extremities or head) *Use of iterative reconstruction technique DLP: 623 mGy-cm FINDINGS: LUNG BASES: The visualized lung bases are unremarkable.? LIVER, GALLBLADDER, AND BILIARY TREE: Unremarkable. PANCREAS: Unremarkable.? SPLEEN: Unremarkable.? ADRENAL GLANDS: Unremarkable.? KIDNEYS AND URETERS: Right kidney lower pole low-attenuation focus and cortical defect without significant change. The left kidney and bilateral ureters are unremarkable.? BLADDER: Minimally distended limiting evaluation without focal abnormality.? GASTROINTESTINAL TRACT: Very small hiatal hernia. The remainder the stomach is unremarkable. The small bowel and appendix are unremarkable. Mild to moderate descending/sigmoid diverticulosis is seen with mild to moderate mural thickening and pericolonic infiltrative changes at the descending/sigmoid junction in the left lower quadrant. No overt evidence for perforation or abscess formation. The rectum is unremarkable. ABDOMINAL WALL: Small fat-containing umbilical hernia without abnormality.? LYMPH NODES: No lymphadenopathy. VASCULAR: Unremarkable. PELVIC VISCERA: Anteverted/anteflexed uterus with IUD in place. No adnexal abnormality.? OSSEOUS STRUCTURES: Unremarkable.? CT/CT abdomen pelvis w IV con IMPRESSION: Mild to moderate acute diverticulitis at the descending/sigmoid junction in the left lower quadrant without evidence for perforation or abscess formation. ? Fleischner guidelines were followed Dictated By: Wan Cast MD Signed By: Electronically signed by Wan Cast MD 01/25/23 144 <MITZY Ortiz - Last Filed: 01/25/23 19:06> Medications Administered Discontinued Medications Generic Name Dose Route Start Last Admin Trade Name Freq PRN Reason Stop Dose Admin Hydromorphone HCl 1 mg 01/25/23 12:49 01/25/23 13:34 Hydromorphone Hcl 1 Mg/Ml Syringe IVPUSH 01/25/23 12:50 1 mg ONCE ONE Administration Protocol Hydromorphone HCl 1 mg 01/25/23 15:17 01/25/23 15:29 Hydromorphone Hcl 1 Mg/Ml Syringe IVPUSH 01/25/23 15:18 1 mg ONCE ONE Administration Protocol Iohexol 85 ml 01/25/23 13:26 01/25/23 13:28 Iohexol 350 Mg/Ml 100 Ml Infus..Btl IV 01/25/23 13:27 85 ml ONCE ONE Administration Ondansetron HCl 4 mg 01/25/23 12:49 01/25/23 13:33 Ondansetron Hcl 4 Mg/2 Ml Vial IVPUSH 01/25/23 12:50 4 mg ONCE ONE Administration Ondansetron HCl 4 mg 01/25/23 15:17 01/25/23 15:29 Ondansetron Hcl 4 Mg/2 Ml Vial IVPUSH 01/25/23 15:18 4 mg ONCE ONE Administration <MITZY Gomez - Last Filed: 01/25/23 11:00> Medications Administered Discontinued Medications Generic Name Dose Route Start Last Admin Trade Name Freq PRN Reason Stop Dose Admin Hydromorphone HCl 1 mg 01/25/23 12:49 01/25/23 13:34 Hydromorphone Hcl 1 Mg/Ml Syringe IVPUSH 01/25/23 12:50 1 mg ONCE ONE Administration Protocol Hydromorphone HCl 1 mg 01/25/23 15:17 01/25/23 15:29 Hydromorphone Hcl 1 Mg/Ml Syringe IVPUSH 01/25/23 15:18 1 mg ONCE ONE Administration Protocol Iohexol 85 ml 01/25/23 13:26 01/25/23 13:28 Iohexol 350 Mg/Ml 100 Ml Infus..Btl IV 01/25/23 13:27 85 ml ONCE ONE Administration Ondansetron HCl 4 mg 01/25/23 12:49 01/25/23 13:33 Ondansetron Hcl 4 Mg/2 Ml Vial IVPUSH 01/25/23 12:50 4 mg ONCE ONE Administration Ondansetron HCl 4 mg 01/25/23 15:17 01/25/23 15:29 Ondansetron Hcl 4 Mg/2 Ml Vial IVPUSH 01/25/23 15:18 4 mg ONCE ONE Administration <MITZY Ortiz - Last Filed: 01/25/23 19:06> Critical Care Time Critical Care Time Critical Care Time: Yes <MITZY Ortiz - Last Filed: 01/25/23 19:06> Total Critical Care Time: 30 <MITZY Ortiz - Last Filed: 01/25/23 19:06> Attestation: I spent 30 minutes of Critical Care Time with this patient. This does not include time spent on separately reported billable procedures. <MITZY Ortiz - Last Filed: 01/25/23 19:06> Discharge Plan Discharge Clinical Impression: Diverticulitis <MITZY Gomez - Last Filed: 01/25/23 11:00> Patient Disposition: Home, Self-Care <MITZY Gomez - Last Filed: 01/25/23 11:00> Instructions: Diverticulitis (ED) <MITZY Gomez - Last Filed: 01/25/23 11:00> Additional Instructions: Follow up with your primary care provider and with Dr. Alexis on Saturday. Return to the emergency department immediately if your symptoms worsen or if you develop any dizziness, shortness of breath, difficulty breathing, chest pain, blurry vision, loss of vision, nausea, vomiting, abdominal pain, fever, chills, back pain, or any other complaints. <MITZY Gomez - Last Filed: 01/25/23 11:00> Prescriptions: No Action ondansetron 4 mg tablet,disintegrating 4 mg PO Q8H PRN (Reason: nausea and vomiting) Qty: 20 0RF clonidine HCl 0.1 mg tablet 0.1 mg PO TID PRN (Reason: for anxiety) Qty: 90 2RF zolpidem 12.5 mg tablet,ext release multiphase 12.5 mg PO .COMPLEX 30 Days Qty: 15 2RF Rx Instructions: 12.5 mg orally every other day; escitalopram oxalate 10 mg tablet 10 mg PO DAILY 30 Days Qty: 90 1RF lorazepam [Ativan] 1 mg tablet 1 mg PO BID 30 Days Qty: 60 0RF Rx Instructions: Take 1 tablet ONE to TWO TIMES A DAY ONLY NEEDED for increased anxiety; tramadol 50 mg tablet 50 mg PO TID PRN (Reason: pain) 30 Days Qty: 90 0RF acetaminophen 325 mg Tablet 650 mg PO Q8H PRN (Reason: Pain, Mild (Pain Scale 1-3)) 30 Days 0RF metronidazole 500 mg Tablet 500 mg PO Q8H Qty: 21 0RF levofloxacin 750 mg Tablet 750 mg PO Q24H Qty: 7 0RF budesonide 3 mg capsule,delayed,extend.release 9 mg PO DAILY mesalamine 500 mg capsule, extended release 500 mg PO QID Mirena 20 mcg/24 hours (6 yrs) 52 mg intrauterine device 1 device intrauterine ONCE omeprazole 20 mg capsule,delayed release(DR/EC) 20 mg PO DAILY diphenoxylate-atropine 2.5-0.025 mg tablet 1 - 2 tab PO Q6H PRN (Reason: Diarrhea) Entyvio 300 mg recon soln 300 mg IV Q4W Rx Instructions: administer over 30 mins dicyclomine 10 mg capsule 10 mg PO BID PRN (Reason: Gastrointestinal Spasms Or Cramping) <MITZY Gomez - Last Filed: 01/25/23 11:00> Referrals: Jaswant Frank MD [Primary Care Provider] - Matthew Alexis [Physician] - (Call and follow up on Saturday. ) <MITZY Gomez - Last Filed: 01/25/23 11:00> Interventions: ED Discharge Assessment Last Done: 01/25/23 17:07 <MITZY Gomez - Last Filed: 01/25/23 11:00> Discharge Date/Time: 01/25/23 17:08 <MITZY Gomez - Last Filed: 01/25/23 11:00> Print Language: Arabic <MITZY Gomez - Last Filed: 01/25/23 11:00>
--- NOTE | 2023-01-25 11:40 | MHC.EDTECH ---
Labs/covid and urine collected and sent to lab
[2023-01-25 11:44] LABS: MANUAL DIFF FLAG NO
[2023-01-25 11:50] LABS: Basophils Percent Auto 0.4 % (0-2); Eosinophils Absolute Auto 0.1 X10*3/uL (0.0-0.4); Eosinophils Percent Auto 1.2 % (0-4); Hematocrit 41.8 % (37.0-47.0); Hemoglobin 13.7 g/dl (12.0-16.0); Imm Gran Abs Auto 0.07 X10*3/uL (0.00-0.03); Imm Gran Pct Auto 0.6 % (0.0-0.4); Lymphocytes Absolute Auto 1.2 X10*3/uL (1.2-4.9); Lymphocytes Percent Auto 10.7 % (20-40); Mean Corpuscular HGB Conc 32.8 g/dl (31.0-35.0); Mean Corpuscular Hemoglobin 30.9 pg (27.0-33.0); Mean Corpuscular Volume 94.4 fL (80.0-98.0); Mean Platelet Volume 9.9 fL (9.4-12.3); Monocytes Absolute Auto 0.9 X10*3/uL (0.1-1.2); Monocytes Percent Auto 7.7 % (2-11); Neutrophils Absolute Auto 8.9 x10*3/uL (2.0-8.3); Neutrophils Percent Auto 79.4 % (45-73); Platelet Count 354 X10*3/uL (160-400); Red Blood Count 4.43 X10*6/uL (4.20-5.50); Red Cell Distribution Width 14.3 % (11.0-16.0); White Blood Count 11.2 X10*3/uL (4.8-10.8)
[2023-01-25 11:51] LABS: Appearance Urine Cloudy; Color Urine Dark Yellow; Glucose Urine UA Negative (Negative); Leukocyte Esterase Urine Small (1+) (Negative); Nitrite Urine Negative (Negative); Specific Gravity - Urine >= 1.030 (1.005-1.025); UMIC TRIGGER UACC YES; Urine Blood Trace (Negative); Urine Ketones Trace mg/dL (Negative); Urine Protein Trace mg/dL (Neg-Trace)
[2023-01-25 12:03] LABS: Lactic Acid 1.1 mmol/L (0.5-2.0)
[2023-01-25 12:03] LABS: Bacteria Urine None Seen (None Seen); Squamous Epithelial Cell Urine >20 /HPF (0-2); UACC Culture Trigger YES; WBC Urine 0-5 /HPF (0-5)
[2023-01-25 12:06] LABS: COVID-19 Test Negative (Negative); IDNOW Serial# 16C4AD1C
[2023-01-25 12:13] LABS: Alanine Aminotransferase 9 U/L (0-31); Albumin Level 3.6 g/dL (3.5-5.0); Alkaline Phosphatase 80 U/L (39-117); Anion Gap 11 (12-20); Aspartate Amino Transferase 11 U/L (5-31); Bilirubin Direct < 0.2 mg/dL (0.0-0.5); Bilirubin Total 0.3 mg/dL (0.0-1.0); Blood Urea Nitrogen 13 mg/dL (9-16); C Reactive Protein 2.16 mg/dL (< or = 0.50); Carbon Dioxide 25 mmol/L (22-29); Chloride 105 mmol/L (96-108); Estimated Glomerular Filt Rate > 60; Glucose Random 107 mg/dL (60-115); Magnesium 1.7 mg/dL (1.6-2.6); Potassium 4.2 mmol/L (3.3-5.1); Sodium 137 mmol/L (135-145); Total Protein 6.4 g/dL (6.5-8.0)
[2023-01-25 12:31] LABS: Erythrocyte Sedimentation Rate 23 MM/HR (0-20)
[2023-01-25] MEDS: iohexoL 350 MG/ML 100 ML INFUS..BTL 85 ML IV (13:28)
[2023-01-25] MEDS: ondansetron HCL 4 MG/2 ML VIAL IVPUSH ×2 (13:33→15:29)
[2023-01-25] MEDS: HYDROmorphone HCl 1 MG/ML SYRINGE IVPUSH ×2 (13:34→15:29)
== END 2023-01-25 17:08 | disposition home or self-care (01) ==
PROVIDERS: Physician Assistant; Emergency Provider Emergency Medicine; PCP Internal Medicine
DX: K57.92 Diverticulitis of intestine, part unspecified, without perforation or abscess without bleeding (principal); K50.90 Crohn's disease, unspecified, without complications; R10.30 Lower abdominal pain, unspecified; Z85.528 Personal history of other malignant neoplasm of kidney; Z20.822 Contact with and (suspected) exposure to COVID-19
CPT/HCPCS: 36415; 74177; 80048; 80076; 81001; 83605; 83735; 85025; 85652; 86140; 87086; 87635; 96374; 96375; 96376; 99282; 99284; J1170; J2405; Q9967

== ENCOUNTER 2023-02-11 09:27 | Outpatient (REF) | payer OTHER, SELFPAY | END 2023-02-11 09:28 | disposition home or self-care (01) | LOC: HO.MDS 09:27 | PROVIDERS: Visit Provider Internal Medicine | DX: K50.819 Crohn's disease of both small and large intestine with unspecified complications (principal) | CPT/HCPCS: 96365; 96375; J1200; J2060; J2405; J3380 ==

== ENCOUNTER 2023-02-15 14:22 | Outpatient (REF) | payer OTHER, SELFPAY ==
--- NOTE | ~2023-02-15 | XR_ITS ---
EXAMINATION: XR ABDOMEN COMPLETE CLINICAL INDICATION: Abdominal pain and bloating. History of Crohn's disease COMPARISON: CT from 01/25/2023 TECHNIQUE: 2 views of the abdomen. FINDINGS: The bowel gas pattern is normal with no evidence of ileus or obstruction. No unusual soft tissue calcifications are noted. Intrauterine device is seen centrally within the pelvis. Intramedullary izzy and screw fixation seen of the left hip XR/XR abdomen min 2V IMPRESSION: No acute process
== END 2023-02-15 14:23 | disposition home or self-care (01) ==
LOC: HO.XRAY 14:22
PROVIDERS: PCP Internal Medicine; Visit Provider Internal Medicine
DX: K50.819 Crohn's disease of both small and large intestine with unspecified complications (principal); R14.0 Abdominal distension (gaseous)
CPT/HCPCS: 74019

== ENCOUNTER 2023-03-11 09:22 | Outpatient (REF) | payer OTHER, SELFPAY | END 2023-03-11 09:23 | disposition home or self-care (01) | LOC: HO.MDS 09:22 | PROVIDERS: Visit Provider Internal Medicine | DX: K50.90 Crohn's disease, unspecified, without complications (principal) | CPT/HCPCS: 96365; 96375; J1200; J3380 ==

== ENCOUNTER 2023-04-08 09:09 | Outpatient (REF) | payer OTHER, SELFPAY | END 2023-04-08 09:10 | disposition home or self-care (01) | LOC: HO.MDS 09:09 | PROVIDERS: Visit Provider Internal Medicine | DX: K50.90 Crohn's disease, unspecified, without complications (principal) | CPT/HCPCS: 96365; 96366; 96375; J1200; J2405; J3380 ==

== ENCOUNTER 2023-05-01 15:28 | Outpatient (REF) | payer OTHER, SELFPAY | END 2023-05-01 15:29 | disposition home or self-care (01) | LOC: HO.LAB 15:28 | PROVIDERS: PCP Internal Medicine; Visit Provider Advanced Practice Midwife | DX: N76.4 Abscess of vulva (principal); L02.92 Furuncle, unspecified | CPT/HCPCS: 87070; 87205; 99212 ==

== ENCOUNTER 2023-05-06 11:28 | Outpatient (REF) | payer OTHER, SELFPAY | END 2023-05-06 11:29 | disposition home or self-care (01) | LOC: HO.MDS 11:28 | PROVIDERS: Visit Provider Internal Medicine | DX: K50.90 Crohn's disease, unspecified, without complications (principal) | CPT/HCPCS: 96365; 96375; J1200; J2405; J3380 ==

== ENCOUNTER 2023-06-03 09:56 | Outpatient (REF) | payer OTHER, SELFPAY | END 2023-06-03 09:57 | disposition home or self-care (01) | LOC: HO.MDS 09:56 | PROVIDERS: Visit Provider Internal Medicine | DX: K50.90 Crohn's disease, unspecified, without complications (principal) | CPT/HCPCS: 96365; 96375; J1200; J2405; J3380 ==

== ENCOUNTER 2023-07-01 11:00 | Outpatient (REF) | payer OTHER, SELFPAY | END 2023-07-01 11:01 | disposition home or self-care (01) | LOC: HO.MDS 11:00 | PROVIDERS: Visit Provider Internal Medicine | DX: K50.90 Crohn's disease, unspecified, without complications (principal) | CPT/HCPCS: 96365; J3380 ==

== ENCOUNTER 2023-07-26 09:21 | Outpatient (AMB) | payer OTHER, SELFPAY ==
[2023-07-26 09:31] VITALS: BP 120/90; PULSE 102; O2SAT 99; BMI 32.6
--- NOTE | 2023-07-26 09:31 | MHC.PC.OV ---
Vital Signs 07/26/23 09:31 Height 5 ft 2 in Weight 178 lb 2 oz BMI 32.6 BP 120/90 H Blood Pressure Location Lt brachial Position Sitting Pulse 102 H Pulse Source Pulse Oximeter Pulse Oximetry (%) 99 Oxygen Delivery Method Room Air Intake Visit Reasons: Crohn's disease, migraine, insomnia, anxiety Director Of Litigation Required: No Accompanied by: Self / Same As Patient Allergies meperidine [From Demerol] Allergy (Severe, Verified 07/26/23 09:56) SWELLING,RASH,THROAT CLOSES latex [LATEX] Allergy (Mild, Verified 07/26/23 09:56) RASH codeine [Codeine] Adverse Reaction (Intermediate, Verified 07/26/23 09:56) NAUSEA/VOMITING, GI upset/vomiting trazodone Adverse Reaction (Mild, Verified 07/26/23 09:56) Anxiety Fish Containing Products [Fish Product Derivatives] Adverse Reaction (Unknown, Verified 07/26/23 09:56) NAUSEA/VOMITING Medication List - Last Reconciled 07/26/23 by Jaswant Frank MD acetaminophen 650 mg (2 x 325 mg) PO Q8H PRN 30 days budesonide ER 9 mg PO DAILY clonidine HCl 0.1 mg PO TID PRN dicyclomine 10 mg PO BID PRN diphenoxylate-atropine 2.5-0.025 mg 1 - 2 tabs PO Q6H PRN levonorgestrel (Mirena) 1 device intrauterine ONCE lorazepam 1 mg (2 x 0.5 mg) PO BID 30 days mesalamine ER 500 mg PO QID omeprazole 20 mg PO DAILY ondansetron 4 mg PO Q8H PRN sumatriptan succinate take 1 tab at onset of headache; if no relief may repeat 1 tab after at least 2 hrs; max = 4 tabs/24 hr PO tramadol 50 mg PO TID PRN 30 days vedolizumab (Entyvio) 300 mg IV Q4W zolpidem ER 12.5 mg orally every other day; 30 days Tobacco use date assessed: 07/26/23 Dental Screening Dental Screen Date: 07/26/23 Did you have a dental visit in the last 12 months?: Yes Did you have a dental problem in the last 6 months where you did not have access to dental care?: No Was dental information given to patient?: Patient has dentist HPI Crohn's disease, migraine, insomnia, anxiety HPI Details Patient comes in today for her follow up visit States that she has been feeling more depressed and anxious lately and at time, feels overwhelmed; is crying a lot throughout her visit today States that she just does not feel good Admits that she stopped taking her Escitalopram 10 mg about 2 to 3 weeks ago as she thinks that the medication is making her feel sick - feels that she was experiencing some weird thoughts and her mind was all over the place and she was feeling more and more depressed even though she was on her Rx Recalls that she talked to a psychiatrist once before through her psychologist but was reportedly advised that she can just continue to see her psychologist for now and there is no urgent need for her to be seeing a psychiatrist regularly yet Adds that she has also been having a hard time swallowing at times lately and that Dr. Alexis increased her Omeprazole dose to 40 mg QD recently States that she will be getting some labs done for Dr. Alexis next week and she is also schefuled for her infusion of Entyvio next Saturday She denies any headaches or dizziness lately Denies any chest pains, no SOB Still has recurrent nausea and abdominal pain related to her GI issues but denies any vomiting lately Still has on and off diarrhea/loose stools but feels that her Entyvio infusion is helping with her Crohn's [facility] Medical History (Updated 07/26/23 @ 10:27 by Jaswant Frank MD) Major depression, recurrent, chronic Furuncle Diverticulitis Obesity (BMI 30-39.9) Crohn's colitis Crohns disease of small intestine Crohn's colitis Intractable nausea and vomiting Migraine History of renal cell cancer (~2014) Osteoarthritis of hips, bilateral Depression Crohn's disease Lumbar degenerative disc disease Insomnia Anxiety 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 Surgical History Hx of colonoscopy History of esophagogastroduodenoscopy (EGD) History of removal of calculus of renal pelvis through percutaneous nephrostomy (~10/2015) History of cryosurgery (~04/20/15) History of intestinal surgery History of arthroplasty (~01/2012) Family History Father Crohn disease Migraine Cancer Mother HTN (hypertension) Vertigo Cervical cancer Maternal Grandmother HTN (hypertension) Hyperlipidemia Diabetes mellitus Paternal Grandmother Diabetes mellitus Other Mental health problem Social History Household Members: Family and Children Housing: House Do you presently have visiting nurse or other home services: No Alcohol intake: current Alcohol intake frequency: holidays/special occasions only Patient Tobacco Use Status: Former Tobacco user Tobacco use type: Cigarette e-Cigarette/Vaping Use: Former Use Second Hand Smoke Exposure: No Advance Directives Date on File: 06/15/22 service: No Current occupational status: unemployed Gender identity: Female Cognitive needs: No Hearing needs: No Vision needs: Yes (glasses) Female Reproductive History Menstrual Age of Menarche: 12 Questionnaire PHQ-9 Over the last 2 weeks, how often have you been bothered by any of the following problems? 1. Little interest or pleasure in doing things: several days 2. Feeling down, depressed, or hopeless: several days 3. Trouble falling or staying asleep, or sleeping too much: several days 4. Feeling tired or having little energy: several days 5. Poor appetite or overeating: several days 6. Feeling bad about yourself - or that you are a failure or have let yourself or your family down: several days 7. Trouble concentrating on things, such as reading the newspaper or watching television: not at all 8. Moving or speaking so slowly that other people could have noticed. Or the opposite - being so fidgety or restless that you have been moving around a lot more than usual: not at all 9. Thoughts that you would be better off or of hurting yourself in some way: not at all Total score: 6 Depression Screening Interpretation: Positive Depression Screening Follow-up: Existing condition, In treatment, Change in Medication and Follow-up Visit Requested [id number] - PHQ-9 Billing: Yes Source: Developed by Drs. Matthew Hernandez, Starr Jiménez, Billy Somers and colleagues, with an educational paxton from [employer]. Thrive Questionnaire Date Thrive assessed: 07/26/23 I am a: Patient What is your living situation today?: I have a steady place to live Within the past 12 months, did the food you bought not last and you didn't have the money to get more?: Never true Within the past 12 months, did you worry whether your food would run out before you got money to buy more?: Never true Do you have trouble paying for medicines?: No Do you have trouble getting transportation to medical appointments?: No Do you have trouble paying your heating and electricity bill?: No Do you have trouble taking care of your child, family member or friend?: No Do you have trouble with day-to-day activities such as bathing, preparing meals, shopping, managing finances, etc.?: No Are you currently unemployed and looking for a job?: No Are you interested in more education?: No Please select the resources that you would like help with: None Currently or been in a relationship where the following occur: no concerns reported AUDIT C Alcohol Use Questionnaire (AUDIT-C) 1. How often do you have a drink containing alcohol?: Monthly or less 2. How many drinks containing alcohol do you have on a typical day when you are drinking?: 1 or 2 3. How often do you have six or more drinks on one occasion?: Never Total Score: 1 Score Reviewed/Action Taken: Yes MONTSE-7 AMB Questionnaire MONTSE-7 Date MONTSE - 7 assessed: 07/26/23 Feeling nervous, anxious, or on edge: 2 = More than half the days Not being able to stop or control worryin = Nearly every day Worrying too much about different things: 3 = Nearly every day Trouble relaxin = Nearly every day Being so restless that it is hard to sit still: 2 = More than half the days Becoming easily annoyed or irritable: 1 = Several days Feeling afraid as if something awful might happen: 0 = Not at all Total MONTSE-7 score (0-4 normal; 5-9 mild; 10-14 moderate; 15-21 severe): 14 Source: Developed by Drs. Matthew Hernandez, Starr Jiménez, Billy Somers and colleagues, with an educational paxton from [employer]. Review of Systems Const Denies chills, Reports difficulty sleeping, Reports fatigue, Denies fever(s) and Reports headache(s) (on and off but better controlled lately) ENT Reports dysphagia (increasing), Denies dizziness, Denies otalgia, Reports headache(s) (on and off but better controlled lately), Denies neck pain and Denies sore throat Card Denies chest pain, Denies palpitations and Denies dyspnea Resp Denies chest congestion, Denies cough, Denies dyspnea and Denies wheezing GI Reports abdominal pain (intermittent, cramping pain over the lower abdomen), Reports bloating, Denies hematochezia, Reports constipation (on and off), Reports dysphagia (increasing), Denies heartburn, Reports diarrhea (intermittent, alternating with constipation), Reports loose stools, Reports nausea (on and off) and Denies vomiting Denies difficulty voiding, Denies nocturia and Denies dysuria Musc Details: left foot pain Reports arthralgias (right elbow pain - see HPI) and Denies neck pain Skin/Breast Details: (+) recurrent raised keratotic lesions on her lower legs Neuro Denies dizziness and Reports headache(s) (on and off but better controlled lately) Psych Reports anxiety (increasing recently), Reports depression (increasing) and Reports anhedonia Endo Reports fatigue and Denies palpitations Aller/Immun Denies wheezing Physical exam (Primary Care) Vital Signs: Last Vital Signs Pulse 102 H 07/26/23 09:31 BP 120/90 H 07/26/23 09:31 Pulse Ox 99 07/26/23 09:31 Oxygen Delivery Method Room Air 07/26/23 09:31 BMI result Body Mass Index 32.6 Tobacco/Smoking Status: Tobacco use Status Tobacco use date assessed 07/26/23 07/26/23 09:37 Patient Tobacco Use Status Former Tobacco user 07/26/23 09:37 Tobacco use type Cigarette 07/26/23 09:37 e-Cigarette/Vaping Use Former Use 07/26/23 09:37 PHQ-9: PHQ-9 Score PHQ-9: Total score 6 07/26/23 09:37 Depression Screening Interpretation: Positive Depression Screening Follow-up: Existing condition, In treatment, Change in Medication and Follow-up Visit Requested Thrive Assessment: Date of Thrive Assessment Date Thrive assessed 07/26/23 07/26/23 09:37 Currently or been in a relationship where the following occur: no concerns reported Const General: no acute distress and alert HENMT Ears: TM's normal bilaterally and EAC's normal Throat: Yes posterior oropharynx normal and Yes tonsils normal (no TP congestion noted) Neck Neck: Yes no lymphadenopathy and Yes supple Resp Auscultation: clear to auscultation bilaterally, no rales and no wheezes Cardio Rate: regular rate Rhythm: regular rhythm Heart sounds: no murmurs GI Palpation (GI): Soft to palpation, Tenderness to palpation present (GI) ((+) minimal diffuse lower abdominal discomfort), no guarding, not rigid and No Rebound tenderness present Auscultation: normal bowel sounds Back/Spine/Pelvis Thoracic/Lumbar Spine: lumbar spinal tenderness Extrem General: Yes no clubbing, cyanosis or edema Right upper extremity: elbow/forearm Details: tenderness Location: of the lateral epicondyle Assessment and Plan Assessment & Plan (1) Crohn disease: Code(s): K50.90 - Crohn's disease, unspecified, without complications Qualifiers: Gastrointestinal tract location: unspecified location Digestive disease complication type: unspecified complication Qualified Code(s): K50.919 - Crohn's disease, unspecified, with unspecified complications Plan: Continue Entyvio 300 mg SQ every 6 to 8 weeks, Mesalamine ER 1000 mg QID and Budesonide ER 3 mg 3 capsules (900 mg) QD Follow up with GI (Dr. Alexis) as scheduled She will also be getting some follow up labs done next week for Dr. Alexis - is advised to have the lab send us a copy of her results as well (2) Lumbar degenerative disc disease: Code(s): M51.36 - Other intervertebral disc degeneration, lumbar region Plan: Reinforced activity and weight-lifting restrictions Continue Tramadol 50 mg TID PRN for pain (3) Migraine: Code(s): G43.909 - Migraine, unspecified, not intractable, without status migrainosus Qualifiers: Migraine type: unspecified Status migrainosus presence: without status migrainosus Intractability: not intractable Qualified Code(s): G43.909 - Migraine, unspecified, not intractable, without status migrainosus Plan: Continue Sumatriptan 50 mg PRN for headaches Continue Excedrin PRN and Ondansetron PRN for nausea/vomiting Topiramate (for LUNDBERG prophylaxis) was discontinued previously due to its potential interactions with Mirena; patient reports experiencing frequent headaches lately If headaches get worse or progress, will consider referring her back to neurology for consultation (4) Impaired fasting glucose: Code(s): R73.01 - Impaired fasting glucose Plan: FBS was elevated on her recent labs - is most likely due to the effects of Prednisone, which she has been off (completed Tx) for a while now In-office HgbA1c was normal at 5.6% when previously checked Will continue to monitor her blood sugar closely for now Reinforced again low calorie/low carb diet to help control her blood sugar better (5) Insomnia: Code(s): G47.00 - Insomnia, unspecified Qualifiers: Insomnia type: unspecified Qualified Code(s): G47.00 - Insomnia, unspecified Plan: Sleep hygiene reinforced Continue Zolpidem CR 12.5 mg Q HS Has been checked out and advised by Sleep Medicine that she does NOT have FAISAL Was recently tried on Belsomra, which she states has been helping with her sleep better but this was denied by her insurance Follow up with Sleep Medicine as scheduled (6) Anxiety: Code(s): F41.9 - Anxiety disorder, unspecified Plan: Advised again to continue following up with her current therapist ([facility]) regularly/weekly; was also seen by a psychiatrist but was advised that she can continue seeing her therapist at this time and does not need to see psychiatry regularly Continue Lorazepam 1 mg BID PRN Was on Escitalopram 10 mg QD but she self-discontinued this 2 to 3 weeks ago (see HPI) and it appears that her anxiety and depression is now acting up Will start her on Wellbutrin XL 150 mg Q AM and Buspirone 7.5 mg BID (7) Major depression, recurrent, chronic: Code(s): F33.9 - Major depressive disorder, recurrent, unspecified Plan: Increasing lately since she stopped taking her Escitalopram a couple of weeks ago Will start her on Wellbutrin XL 150 mg Q AM Is reminded to continue following up with her therapist regularly (8) Obesity (BMI 30-39.9): Code(s): E66.9 - Obesity, unspecified Plan: Reinforced diet/exercise as tolerated/lose weight Plan Follow up in 2 months Medications: New bupropion HCl 150 mg PO QAM 30 days 30 tabs 1RF buspirone 7.5 mg PO BID 30 days 60 tabs 1RF Coding Level of Care Code Est Pt Level 4 (62810) Diagnoses Crohn's disease with complication, unspecified gastrointestinal tract location K50.919 Gastrointestinal tract location: unspecified location Digestive disease complication type: unspecified complication Lumbar degenerative disc disease M51.36 Migraine without status migrainosus, not intractable, unspecified migraine type G43.909 Migraine type: unspecified Status migrainosus presence: without status migrainosus Intractability: not intractable Impaired fasting glucose R73.01 Insomnia, unspecified type G47.00 Insomnia type: unspecified Anxiety F41.9 Major depression, recurrent, chronic F33.9 Obesity (BMI 30-39.9) E66.9
== END 2023-07-26 10:11 | disposition home or self-care (01) ==
PROVIDERS: Visit Provider Internal Medicine
DX: G43.909 Migraine, unspecified, not intractable, without status migrainosus (principal); K50.919 Crohn's disease, unspecified, with unspecified complications; F41.9 Anxiety disorder, unspecified; F33.9 Major depressive disorder, recurrent, unspecified; M51.36 Other intervertebral disc degeneration, lumbar region; R73.01 Impaired fasting glucose; G47.00 Insomnia, unspecified; E66.9 Obesity, unspecified
CPT/HCPCS: 99214

== ENCOUNTER 2023-07-26 10:17 | Outpatient (REF) | payer OTHER, SELFPAY ==
[2023-07-26 13:20] LABS: MANUAL DIFF FLAG NO
[2023-07-26 13:32] LABS: Basophils Absolute Auto 0.1 X10*3/uL (0.0-0.2); Basophils Percent Auto 0.6 % (0-2); Eosinophils Absolute Auto 0.1 X10*3/uL (0.0-0.4); Eosinophils Percent Auto 0.7 % (0-4); Hematocrit 47.2 % (37.0-47.0); Hemoglobin 15.1 g/dl (12.0-16.0); Imm Gran Abs Auto 0.08 X10*3/uL (0.00-0.03); Imm Gran Pct Auto 0.7 % (0.0-0.4); Lymphocytes Absolute Auto 1.6 X10*3/uL (1.2-4.9); Lymphocytes Percent Auto 13.8 % (20-40); Mean Corpuscular Hemoglobin 30.8 pg (27.0-33.0); Mean Corpuscular Volume 96.3 fL (80.0-98.0); Mean Platelet Volume 10.4 fL (9.4-12.3); Monocytes Absolute Auto 0.7 X10*3/uL (0.1-1.2); Monocytes Percent Auto 6.2 % (2-11); Neutrophils Absolute Auto 9.2 x10*3/uL (2.0-8.3); Platelet Count 359 X10*3/uL (160-400); White Blood Count 11.8 X10*3/uL (4.8-10.8)
[2023-07-26 13:54] LABS: Alanine Aminotransferase 18 U/L (0-31); Albumin Level 3.9 g/dL (3.5-5.0); Alkaline Phosphatase 92 U/L (39-117); Amylase 39 U/L (28-100); Anion Gap 13 (12-20); Aspartate Amino Transferase 16 U/L (5-31); Bilirubin Direct < 0.2 mg/dL (0.0-0.5); Bilirubin Total 0.2 mg/dL (0.0-1.0); Blood Urea Nitrogen 13 mg/dL (9-16); Calcium 10.3 mg/dL (8.4-10.2); Carbon Dioxide 28 mmol/L (22-29); Chloride 103 mmol/L (96-108); Estimated Glomerular Filt Rate > 60; Glucose Random 137 mg/dL (60-115); Lipase 30 U/L (8-78); Potassium 3.8 mmol/L (3.3-5.1); Sodium 140 mmol/L (135-145); Total Protein 7.6 g/dL (6.5-8.0)
== END 2023-07-26 10:18 | disposition home or self-care (01) ==
LOC: HO.10HDL 10:17
PROVIDERS: Absent Provider Internal Medicine; Visit Provider Internal Medicine
DX: R11.0 Nausea (principal); K50.80 Crohn's disease of both small and large intestine without complications; Z79.899 Other long term (current) drug therapy
CPT/HCPCS: 36415; 80048; 80076; 80280; 82150; 82542; 83690; 85025

== ENCOUNTER 2023-07-29 10:20 | Outpatient (REF) | payer OTHER, SELFPAY | END 2023-07-29 10:21 | disposition home or self-care (01) | LOC: HO.MDS 10:20 | PROVIDERS: Visit Provider Internal Medicine | DX: K50.90 Crohn's disease, unspecified, without complications (principal) | CPT/HCPCS: 96365; 96375; J1200; J3380 ==

== ENCOUNTER 2023-08-21 10:58 | Outpatient (REF) | payer OTHER, SELFPAY ==
[2023-08-21 11:27] LABS: MANUAL DIFF FLAG NO
[2023-08-21 11:45] LABS: Basophils Absolute Auto 0.1 X10*3/uL (0.0-0.2); Basophils Percent Auto 0.4 % (0-2); Eosinophils Absolute Auto 0.2 X10*3/uL (0.0-0.4); Eosinophils Percent Auto 1.5 % (0-4); Hematocrit 45.5 % (37.0-47.0); Hemoglobin 14.8 g/dl (12.0-16.0); Imm Gran Abs Auto 0.14 X10*3/uL (0.00-0.03); Imm Gran Pct Auto 1.2 % (0.0-0.4); Lymphocytes Absolute Auto 1.5 X10*3/uL (1.2-4.9); Lymphocytes Percent Auto 12.6 % (20-40); Mean Corpuscular HGB Conc 32.5 g/dl (31.0-35.0); Mean Corpuscular Hemoglobin 30.6 pg (27.0-33.0); Mean Corpuscular Volume 94.2 fL (80.0-98.0); Mean Platelet Volume 9.9 fL (9.4-12.3); Monocytes Absolute Auto 0.8 X10*3/uL (0.1-1.2); Monocytes Percent Auto 6.9 % (2-11); Neutrophils Percent Auto 77.4 % (45-73); Platelet Count 281 X10*3/uL (160-400); Red Blood Count 4.83 X10*6/uL (4.20-5.50); Red Cell Distribution Width 13.9 % (11.0-16.0); White Blood Count 11.6 X10*3/uL (4.8-10.8)
[2023-08-21 12:13] LABS: Erythrocyte Sedimentation Rate 28 MM/HR (0-20)
[2023-08-21 12:47] LABS: Alanine Aminotransferase 10 U/L (0-31); Albumin Level 3.7 g/dL (3.5-5.0); Alkaline Phosphatase 90 U/L (39-117); Anion Gap 14 (12-20); Aspartate Amino Transferase 11 U/L (5-31); Bilirubin Direct < 0.2 mg/dL (0.0-0.5); Bilirubin Total 0.2 mg/dL (0.0-1.0); Blood Urea Nitrogen 13 mg/dL (9-16); C Reactive Protein 2.17 mg/dL (< or = 0.50); Calcium 9.7 mg/dL (8.4-10.2); Carbon Dioxide 22 mmol/L (22-29); Chloride 105 mmol/L (96-108); Estimated Glomerular Filt Rate > 60; Glucose Random 91 mg/dL (60-115); Lipase 18 U/L (8-78); Potassium 3.8 mmol/L (3.3-5.1); Sodium 137 mmol/L (135-145); Total Protein 7.1 g/dL (6.5-8.0)
[2023-08-21] MEDS: iohexoL 350 MG/ML 100 ML INFUS..BTL IV (14:19)
[2023-08-21] MEDS: Barium Sulfate Oral (Mocha) 450 ML ORAL.SUSP 900 ML PO (14:20)
== END 2023-08-21 10:59 | disposition home or self-care (01) ==
LOC: HO.CT 10:58
PROVIDERS: PCP Internal Medicine; Visit Provider Internal Medicine
DX: K50.80 Crohn's disease of both small and large intestine without complications (principal); R10.84 Generalized abdominal pain; Z87.19 Personal history of other diseases of the digestive system
CPT/HCPCS: 36415; 74177; 80048; 80076; 83690; 85025; 85652; 86140; Q9967

== ENCOUNTER 2023-08-27 09:59 | Outpatient (REF) | payer OTHER, SELFPAY | END 2023-08-27 10:00 | disposition home or self-care (01) | LOC: HO.MDS 09:59 | PROVIDERS: Visit Provider Internal Medicine | DX: K50.90 Crohn's disease, unspecified, without complications (principal) | CPT/HCPCS: 96365; 96375; J1200; J3380 ==

== ENCOUNTER 2023-08-27 10:51 | Outpatient (REF) | payer OTHER, SELFPAY ==
[2023-08-27 12:02] LABS: Leukocytes Stool Qualitative NEGATIVE (NEGATIVE)
[2023-08-27 13:39] LABS: Adenovirus F 40/41 Not Detected (Not Detect.); Astrovirus Not Detected (Not Detect.); Campylobacter Not Detected (Not Detect.); Cryptosporidium Not Detected (Not Detect.); Cyclospora cayetanensis Not Detected (Not Detect.); E. coli EAEC Not Detected (Not Detect.); E. coli EPEC Not Detected (Not Detect.); E. coli ETEC Not Detected (Not Detect.); E. coli STEC Not Detected (Not Detect.); Entamoeba histolytica Not Detected (Not Detect.); Giardia lamblia Not Detected (Not Detect.); Norovirus GI/GII Not Detected (Not Detect.); Plesiomonas shigelloides Not Detected (Not Detect.); Rotavirus A Not Detected (Not Detect.); Salmonella Not Detected (Not Detect.); Sapovirus Not Detected (Not Detect.); Shigella sp./EIEC Not Detected (Not Detect.); Vibrio Not Detected (Not Detect.); Vibrio Cholerae Not Detected (Not Detect.); Yersinia enterocolitica Not Detected (Not Detect.)
== END 2023-08-27 10:52 | disposition home or self-care (01) ==
LOC: HO.LNP 10:51
PROVIDERS: Visit Provider Internal Medicine
DX: K50.80 Crohn's disease of both small and large intestine without complications (principal); R10.84 Generalized abdominal pain; Z87.19 Personal history of other diseases of the digestive system
CPT/HCPCS: 87493; 87507; 89055

== ENCOUNTER 2023-09-04 10:09 | Outpatient (REF) | payer OTHER, SELFPAY ==
[2023-09-04 17:17] LABS: CT PCR NOT DETECTED (Not Detect.); NG PCR NOT DETECTED (Not Detect.)
[2023-09-05 13:48] LABS: BV Int Neg Control Negative (Negative); BV Int Pos Control Positive (Positive)
[2023-09-11 09:38] LABS: HPV 16 RNA NOT DETECTED (NOT DETECTED); HPV mRNA E6/E7 rflx Detected (Not Detected)
== END 2023-09-04 10:10 | disposition home or self-care (01) ==
LOC: HO.LNP 10:09
PROVIDERS: PCP Internal Medicine; Visit Provider Advanced Practice Midwife
DX: Z01.419 Encounter for gynecological examination (general) (routine) without abnormal findings (principal); R32 Unspecified urinary incontinence; N93.0 Postcoital and contact bleeding
CPT/HCPCS: 0353U; 87480; 87510; 87624; 87625; 87660; 88142

== ENCOUNTER 2023-09-04 10:09 | Outpatient (AMB) | payer OTHER, SELFPAY ==
--- NOTE | 2023-09-04 10:42 | A.OFFVIS_ITS ---
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 Scribed for JAYDEN Anna by Rosie Pearce, medical coding instructor, on 09/04/2023 at 10:54 am EST. Client Partner Required: No Information Interpreted: non-clinical & clinical Secret Service Agent: Secret Service Agent Present (Aidyn) Allergies meperidine [From Demerol] Allergy (Severe, Verified 09/04/23 10:48) SWELLING,RASH,THROAT CLOSES latex [LATEX] Allergy (Mild, Verified 09/04/23 10:48) RASH codeine [Codeine] Adverse Reaction (Intermediate, Verified 09/04/23 10:48) NAUSEA/VOMITING, GI upset/vomiting trazodone Adverse Reaction (Mild, Verified 09/04/23 10:48) Anxiety Fish Containing Products [Fish Product Derivatives] Adverse Reaction (Unknown, Verified 09/04/23 10:48) NAUSEA/VOMITING Is last menstrual period known: No (Mirena) Post menopausal: No HPI HPI Comments History of Present Illness Details She is a postmenopausal woman presenting for annual exam. Patient admits she tries to eat a healthy diet including Calcium and Vitamin D. She stays active with exercise. Currently sexually active. Used Mirena for BC and is doing well. Reports spotting after intercourse and urination during intercourse; intercourse daily/multiple times. Denies leaking urination while coughing and sneezing. Denies vaginal itching and irritation. STD screening offered; she accepts. Denies family hx of breast, colon and ovarian cancer. Last pap smear 11/15/21. UTD on colonoscopy. 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 Surgical History Hx of colonoscopy History of esophagogastroduodenoscopy (EGD) History of removal of calculus of renal pelvis through percutaneous nephrostomy (~10/2015) History of cryosurgery (~04/20/15) History of intestinal surgery History of arthroplasty (~01/2012) Family History Father Crohn disease Migraine Cancer Mother HTN (hypertension) Vertigo Cervical cancer Maternal Grandmother HTN (hypertension) Hyperlipidemia Diabetes mellitus Paternal Grandmother Diabetes mellitus Other Mental health problem Social History Household Members: Family and Children Housing: House Do you presently have visiting nurse or other home services: No Alcohol intake: current Alcohol intake frequency: holidays/special occasions only Patient Tobacco Use Status: Former Tobacco user Tobacco use type: Cigarette e-Cigarette/Vaping Use: Former Use Second Hand Smoke Exposure: No Advance Directives Date on File: 06/15/22 service: No Current occupational status: unemployed Gender identity: Female Cognitive needs: No Hearing needs: No Vision needs: Yes (glasses) Female Reproductive History Menstrual Age of Menarche: 12 control method: progestin IUCD Total pregnancies: 2 Full term: 2 Number of Living Children: 2 Date of last pap smear: 11/15/21 (negative) History of abnormal pap smear: Yes (02/24 ASCUS 7/10 ASCUS 7/14 ASCUS) Physical Exam Vital Signs: Last Vital Signs BP 126/80 09/04/23 10:44 BMI result Body Mass Index 32.6 Const General: cooperative, healthy appearing, no acute distress, well developed and alert Orientation/consciousness: patient oriented x3 HEENT Head: Yes normal to inspection Eyes General: appearance normal, both eyes and all related structures Neck Neck: Yes normal visual inspection Thyroid: Thyroid normal Chest Chest palpation & inspection: normal inspection of the chest Breast/axilla inspection: normal inspection of the breasts (no puckering, dimpling, peau de orange, retraction, discharge, masses) Breast/axilla palpation: normal palpation of the breasts Resp Effort & Inspection: normal respiratory effort GI Inspection: Yes normal to inspection Palpation (GI): Soft to palpation (to palpation) Rectal Exam - Female: deferred General: Yes bladder normal to inspection External Female Exam: normal external appearance and normal appearance of the urethra Speculum Exam - Vagina: normal appearance of the vagina, normal palpation and normal vaginal discharge Speculum Exam - Cervix: normal appearance of the cervix, normal palpation and Other cervical findings present (bled slightly with pap, strings present) Bimanual exam- vagina & uterus: normal palpation and normal palpation Bimanual Exam- Adnexa, other: normal adnexae and no masses Skin General skin exam: no rashes or lesions noted Neuro General: patient oriented x3 Cognition (Neuro): normal cognition Extrem General: Yes normal to inspection Psych Attitude: cooperative Thought process: Normal thought process present Assessment & Plan Assessment & Plan (1) Encounter for well woman exam: Code(s): Z01.419 - Encounter for gynecological examination (general) (routine) without abnormal findings Plan: Discussed: Current recommendations for pap smears per ASCCP guidelines. Breast awareness and periodic self breast exams. Encouraged yearly mammograms. Mammogram ordered. Maintaining a healthy lifestyle including a well balanced diet including Calcium and Vitamin D and routine exercise. All of her questions and concerns were addressed to the best of my ability. RTO in 1 year for AG. (2) Urinary incontinence in female: Code(s): R32 - Unspecified urinary incontinence Plan: Advised to consult with specialist. (3) Postcoital bleeding: Code(s): N93.0 - Postcoital and contact bleeding Plan: Pelvic US ordered. Follow up in person for results and plan of care. Orders: Orders MM tomosynthesis screening BI Today Z12.31 - Encounter for screening mammogram for malignant neoplasm of breast Bacterial Vaginosis Panel Today N93.0 - Postcoital and contact bleeding CT NG by PCR Today N93.0 - Postcoital and contact bleeding US pelvic and transvaginal Today N93.0 - Postcoital and contact bleeding Pap Smear Today N93.0 - Postcoital and contact bleeding Referrals Urology Referral R32 - Unspecified urinary incontinence Coding Level of Care Code Est Pt Prev Care 40-64y(74834) Diagnoses Encounter for well woman exam Z01.419 Urinary incontinence in female R32 Postcoital bleeding N93.0
[2023-09-04 10:44] VITALS: BP 126/80; BMI 32.6
== END 2023-09-04 11:17 | disposition home or self-care (01) ==
PROVIDERS: PCP Internal Medicine; Visit Provider Advanced Practice Midwife
DX: Z01.419 Encounter for gynecological examination (general) (routine) without abnormal findings (principal); R32 Unspecified urinary incontinence; N93.0 Postcoital and contact bleeding
CPT/HCPCS: 99396

== ENCOUNTER → 2023-09-11 09:45 | Outpatient (BNV) | payer OTHER, SELFPAY | PROVIDERS: PCP Internal Medicine; Visit Provider Radiology Diagnostic Radiology | DX: Z12.31 Encounter for screening mammogram for malignant neoplasm of breast (principal) | CPT/HCPCS: 77063; 77067 ==

== ENCOUNTER 2023-09-11 09:46 | Outpatient (REF) | payer OTHER, SELFPAY | END 2023-09-11 09:47 | disposition home or self-care (01) | LOC: HO.MAMMO 09:46 | PROVIDERS: PCP Internal Medicine; Visit Provider Advanced Practice Midwife | DX: Z12.31 Encounter for screening mammogram for malignant neoplasm of breast (principal) | CPT/HCPCS: 77063; 77067 ==

== ENCOUNTER 2023-09-24 10:08 | Outpatient (REF) | payer OTHER, SELFPAY | END 2023-09-24 10:09 | disposition home or self-care (01) | LOC: HO.MDS 10:08 | PROVIDERS: Visit Provider Internal Medicine | DX: K50.90 Crohn's disease, unspecified, without complications (principal) | CPT/HCPCS: 96365; 96375; J1200; J3380 ==

== ENCOUNTER 2023-09-30 10:55 | Outpatient (REF) | payer OTHER, SELFPAY ==
--- NOTE | ~2023-09-30 | US_ITS ---
EXAMINATION: US PELVIS CLINICAL INFORMATION: Postcoital contact bleeding. CT abdomen and pelvis August 21, 2023. COMPARISON: Pelvic ultrasound 02/15/2021. TECHNIQUE: Ultrasound of the pelvis is performed using both transabdominal and transvaginal transducers along with Doppler. Transvaginal imaging is performed due to inadequate visualization transabdominally. FINDINGS: The uterus is anteverted, heterogeneous and measures 6.2 x 3.9 x 4.6 cm. No discrete fibroids are identified. No significant free fluid. Visualization of the endometrium is limited due to shadowing from IUD. Visualized segment of endometrium demonstrates thickness of 0.4 cm. Visualization of IUD positioning somewhat limited due to body habitus, bowel gas, uterine positioning and uterine heterogeneity. IUD is visualized within the [id number] portion of the endometrial cavity. Right ovary measures 2.7 x 1.4 x 2.4 cm, volume 4.8 mL. Right ovarian 1.1 x 1.1 x 1.4 cm cyst is mildly complex with a few low-level internal echoes. A small echogenic focus characteristic of a calcification is present in the right ovary. Left ovary measures 2.4 x 1.5 x 1.2 cm, volume 2.3 mL and is grossly unremarkable. Limited visualization of the bilateral ovaries due to bowel gas. US/US pelvic and transvaginal IMPRESSION: 1. Visualization of the endometrium is limited due to shadowing from IUD. Visualized segment of endometrium demonstrates thickness of 0.4 cm. Visualization of IUD positioning somewhat limited due to body habitus, bowel gas, uterine positioning and uterine heterogeneity. IUD is visualized within the [id number] portion of the endometrial cavity. Gynecologic consultation recommended to determine further management. 2. The 3.3 cm right ovarian cyst identified on CT scan of 08/21/2023 has resolved/decreased with current exam demonstrating a 1.4 cm mildly complex right ovarian cyst.
== END 2023-09-30 10:56 | disposition home or self-care (01) ==
LOC: HO.US 10:55
PROVIDERS: PCP Internal Medicine; Visit Provider Advanced Practice Midwife
DX: N93.0 Postcoital and contact bleeding (principal)
CPT/HCPCS: 76830; 76856

== ENCOUNTER 2023-10-04 09:54 | Outpatient (AMB) | payer OTHER, SELFPAY ==
[2023-10-04 10:05] VITALS: BP 110/76; PULSE 70; O2SAT 98; BMI 31.9
--- NOTE | 2023-10-04 10:05 | MHC.PC.OV ---
Vital Signs 10/04/23 10:05 Height 5 ft 2 in Weight 174 lb 8 oz BMI 31.9 BP 110/76 Blood Pressure Location Lt brachial Position Sitting Pulse 70 Pulse Source Pulse Oximeter Pulse Oximetry (%) 98 Oxygen Delivery Method Room Air Intake Visit Reasons: 3mth f/u Master Steam Yacht Required: No Accompanied by: Self / Same As Patient Allergies meperidine [From Demerol] Allergy (Severe, Verified 10/04/23 10:47) SWELLING,RASH,THROAT CLOSES latex [LATEX] Allergy (Mild, Verified 10/04/23 10:47) RASH codeine [Codeine] Adverse Reaction (Intermediate, Verified 10/04/23 10:47) NAUSEA/VOMITING, GI upset/vomiting trazodone Adverse Reaction (Mild, Verified 10/04/23 10:47) Anxiety Fish Containing Products [Fish Product Derivatives] Adverse Reaction (Unknown, Verified 10/04/23 10:47) NAUSEA/VOMITING bupropion Adverse Reaction (Intermediate, Uncoded 10/04/23 10:47) increased headaches Medication List - Last Reconciled 10/04/23 by Jaswant Frank MD acetaminophen 650 mg (2 x 325 mg) PO Q8H PRN 30 days budesonide ER 9 mg PO DAILY clonidine HCl 0.1 mg PO TID PRN dicyclomine 10 mg PO BID PRN diphenoxylate-atropine 2.5-0.025 mg 1 - 2 tabs PO Q6H PRN levonorgestrel (Mirena) 1 device intrauterine ONCE lorazepam 1 mg (2 x 0.5 mg) PO BID 30 days mesalamine ER 500 mg PO QID omeprazole 40 mg PO DAILY ondansetron 4 mg PO Q8H PRN sumatriptan succinate take 1 tab at onset of headache; if no relief may repeat 1 tab after at least 2 hrs; max = 4 tabs/24 hr PO tramadol 50 mg PO TID PRN 30 days vedolizumab (Entyvio) 300 mg IV Q4W zolpidem ER 12.5 mg orally every other day; 30 days Tobacco use date assessed: 10/04/23 Dental Screening Dental Screen Date: 10/04/23 Did you have a dental visit in the last 12 months?: Yes Did you have a dental problem in the last 6 months where you did not have access to dental care?: No Was dental information given to patient?: Patient has dentist HPI 3mth f/u HPI Details Patient comes in today for her follow up visit States that she is currently still having recurrent flare ups of her Crohn's and that Dr. Alexis is trying to get n abdominal MRI approved for her for further evaluation/work up States that she has some labs to do as well for Dr. Alexis and will go and get them done after today's visit Relates that she has not been able to tolerate the Bupropion XL and Buspirone that we switched her over to at her last visit, as she recalls that she started to experience frequent and increasing migraine headaches when she started on the new meds a couple of months ago States that her headaches gradually subsided when she stopped taking both meds as instructed She is currently still seeing her therapist regularly but has not seen psychiatry in a while now and has no follow up appointment scheduled yet States that her Lorazepam has been helping her keep things in check but she does report feeling depressed She denies any fever Denies any chest pains, no SOB noted lately [facility] Medical History Postcoital bleeding Urinary incontinence in female Major depression, recurrent, chronic Furuncle Diverticulitis Obesity (BMI 30-39.9) Crohn's colitis Crohns disease of small intestine Crohn's colitis Intractable nausea and vomiting Migraine History of renal cell cancer (~2014) Osteoarthritis of hips, bilateral Depression Crohn's disease Lumbar degenerative disc disease Insomnia Anxiety 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 Surgical History Hx of colonoscopy History of esophagogastroduodenoscopy (EGD) History of removal of calculus of renal pelvis through percutaneous nephrostomy (~10/2015) History of cryosurgery (~04/20/15) History of intestinal surgery History of arthroplasty (~01/2012) Family History Father Crohn disease Migraine Cancer Mother HTN (hypertension) Vertigo Cervical cancer Maternal Grandmother HTN (hypertension) Hyperlipidemia Diabetes mellitus Paternal Grandmother Diabetes mellitus Other Mental health problem Social History Household Members: Family and Children Housing: House Do you presently have visiting nurse or other home services: No Alcohol intake: current Alcohol intake frequency: holidays/special occasions only Patient Tobacco Use Status: Former Tobacco user Tobacco use type: Cigarette e-Cigarette/Vaping Use: Former Use Second Hand Smoke Exposure: No Advance Directives Date on File: 06/15/22 service: No Current occupational status: unemployed Gender identity: Female Cognitive needs: No Hearing needs: No Vision needs: Yes (glasses) Female Reproductive History Menstrual Age of Menarche: 12 Questionnaire PHQ-9 Over the last 2 weeks, how often have you been bothered by any of the following problems? 1. Little interest or pleasure in doing things: several days 2. Feeling down, depressed, or hopeless: several days 3. Trouble falling or staying asleep, or sleeping too much: several days 4. Feeling tired or having little energy: several days 5. Poor appetite or overeating: several days 6. Feeling bad about yourself - or that you are a failure or have let yourself or your family down: several days 7. Trouble concentrating on things, such as reading the newspaper or watching television: not at all 8. Moving or speaking so slowly that other people could have noticed. Or the opposite - being so fidgety or restless that you have been moving around a lot more than usual: not at all 9. Thoughts that you would be better off or of hurting yourself in some way: not at all Total score: 6 Depression Screening Interpretation: Positive Depression Screening Follow-up: Existing condition, New Medication prescribed, Change in Medication, Community Mental Health Worker F/U and Follow-up Visit Requested Depression Screening Done: Yes 10629 - PHQ-9 Billing: Yes Source: Developed by Drs. Matthew Hernandez, Starr Jiménez, Billy Somers and colleagues, with an educational paxton from [employer]. Thrive Questionnaire Date Thrive assessed: 10/04/23 I am a: Patient What is your living situation today?: I have a steady place to live Within the past 12 months, did the food you bought not last and you didn't have the money to get more?: Never true Within the past 12 months, did you worry whether your food would run out before you got money to buy more?: Never true Do you have trouble paying for medicines?: No Do you have trouble getting transportation to medical appointments?: No Do you have trouble paying your heating and electricity bill?: No Do you have trouble taking care of your child, family member or friend?: No Do you have trouble with day-to-day activities such as bathing, preparing meals, shopping, managing finances, etc.?: No Are you currently unemployed and looking for a job?: No Are you interested in more education?: No Please select the resources that you would like help with: None Currently or been in a relationship where the following occur: no concerns reported AUDIT C Alcohol Use Questionnaire (AUDIT-C) 1. How often do you have a drink containing alcohol?: Monthly or less 2. How many drinks containing alcohol do you have on a typical day when you are drinking?: 1 or 2 3. How often do you have six or more drinks on one occasion?: Never Total Score: 1 Score Reviewed/Action Taken: Yes MONTSE-7 AMB Questionnaire MONTSE-7 Date MONTSE - 7 assessed: 10/04/23 Feeling nervous, anxious, or on edge: 2 = More than half the days Not being able to stop or control worryin = Nearly every day Worrying too much about different things: 3 = Nearly every day Trouble relaxin = Nearly every day Being so restless that it is hard to sit still: 2 = More than half the days Becoming easily annoyed or irritable: 1 = Several days Feeling afraid as if something awful might happen: 0 = Not at all Total MONTSE-7 score (0-4 normal; 5-9 mild; 10-14 moderate; 15-21 severe): 14 Source: Developed by Drs. Matthew Hernandez, Starr Jiménez, Billy Somers and colleagues, with an educational paxton from [employer]. Review of Systems Const Denies chills, Reports difficulty sleeping, Reports fatigue, Denies fever(s) and Reports headache(s) (on and off but better controlled again lately) ENT Reports dysphagia, Denies dizziness, Denies otalgia, Reports headache(s) (on and off but better controlled again lately), Denies neck pain and Denies sore throat Card Denies chest pain, Denies palpitations and Denies dyspnea Resp Denies chest congestion, Denies cough, Denies dyspnea and Denies wheezing GI Reports abdominal pain (intermittent, cramping pain over the lower abdomen), Reports bloating, Denies hematochezia, Reports constipation (on and off), Reports dysphagia, Denies heartburn, Reports diarrhea (intermittent, alternating with constipation), Reports loose stools, Reports nausea (on and off) and Denies vomiting Denies difficulty voiding, Denies nocturia and Denies dysuria Musc Details: left foot pain Reports arthralgias (right elbow pain - see HPI) and Denies neck pain Skin/Breast Details: (+) recurrent raised keratotic lesions on her lower legs Denies rash Neuro Denies dizziness and Reports headache(s) (on and off but better controlled again lately) Psych Reports anxiety (increasing recently) and Reports depression (increasing) Endo Reports fatigue and Denies palpitations Aller/Immun Denies wheezing Physical exam (Primary Care) Vital Signs: Last Vital Signs Pulse 70 10/04/23 10:05 BP 110/76 10/04/23 10:05 Pulse Ox 98 10/04/23 10:05 Oxygen Delivery Method Room Air 10/04/23 10:05 BMI result Body Mass Index 31.9 Tobacco/Smoking Status: Tobacco use Status Tobacco use date assessed 10/04/23 10/04/23 10:14 Patient Tobacco Use Status Former Tobacco user 10/04/23 10:14 Tobacco use type Cigarette 10/04/23 10:14 e-Cigarette/Vaping Use Former Use 10/04/23 10:14 PHQ-9: PHQ-9 Score PHQ-9: Total score 6 10/04/23 10:14 Depression Screening Interpretation: Positive Depression Screening Follow-up: Existing condition, New Medication prescribed, Change in Medication, Community Mental Health Worker F/U and Follow-up Visit Requested Thrive Assessment: Date of Thrive Assessment Date Thrive assessed 10/04/23 10/04/23 10:14 Currently or been in a relationship where the following occur: no concerns reported Const General: no acute distress and alert HENMT Throat: Yes posterior oropharynx normal and Yes tonsils normal (no TP congestion noted) Neck Neck: Yes no lymphadenopathy and Yes supple Resp Auscultation: clear to auscultation bilaterally, no rales and no wheezes Cardio Rate: regular rate Rhythm: regular rhythm Heart sounds: no murmurs GI Palpation (GI): Soft to palpation, Tenderness to palpation present (GI) ((+) minimal diffuse lower abdominal discomfort), no guarding, not rigid and No Rebound tenderness present Auscultation: normal bowel sounds Back/Spine/Pelvis Thoracic/Lumbar Spine: lumbar spinal tenderness Extrem General: Yes no clubbing, cyanosis or edema Right upper extremity: elbow/forearm Details: tenderness Location: of the lateral epicondyle Assessment and Plan Assessment & Plan (1) Crohn disease: Code(s): K50.90 - Crohn's disease, unspecified, without complications Qualifiers: Digestive disease complication type: unspecified complication Gastrointestinal tract location: unspecified location Qualified Code(s): K50.919 - Crohn's disease, unspecified, with unspecified complications Plan: Continue Entyvio 300 mg SQ every 6 to 8 weeks, Mesalamine ER 1000 mg QID and Budesonide ER 3 mg 3 capsules (900 mg) QD Follow up with GI (Dr. Alexis) as scheduled States that Dr. Alexis is trying to get her set up for an abdominal MRI for further evaluation She will also be getting some follow up labs done for Dr. Alexis later today - is advised to have the lab send us a copy of her results as well (2) Lumbar degenerative disc disease: Code(s): M51.36 - Other intervertebral disc degeneration, lumbar region Plan: Reinforced activity and weight-lifting restrictions Continue Tramadol 50 mg TID PRN for pain (3) Migraine: Code(s): G43.909 - Migraine, unspecified, not intractable, without status migrainosus Qualifiers: Migraine type: unspecified Status migrainosus presence: without status migrainosus Intractability: not intractable Qualified Code(s): G43.909 - Migraine, unspecified, not intractable, without status migrainosus Plan: Continue Sumatriptan 50 mg PRN for headaches Continue Excedrin PRN and Ondansetron PRN for nausea/vomiting Topiramate (for LUNDBERG prophylaxis) was discontinued previously due to its potential interactions with Mirena; patient reports experiencing frequent headaches since Patient also relates experiencing a significant increase in her headaches when she was started on Bupropion XL and Buspirone a couple of months ago - headaches have subsided since she was instructed to STOP taking them If headaches get worse or progress, will consider referring her back to neurology for consultation (4) Impaired fasting glucose: Code(s): R73.01 - Impaired fasting glucose Plan: FBS was elevated on her recent labs done a couple of months ago - was most likely due to the effects of Prednisone, which she has been off (completed Tx) for a while now In-office HgbA1c was normal at 5.6% when previously checked Will continue to monitor her blood sugar closely Reinforced again low calorie/low carb diet to help control her blood sugar better (5) Insomnia: Code(s): G47.00 - Insomnia, unspecified Qualifiers: Insomnia type: unspecified Qualified Code(s): G47.00 - Insomnia, unspecified Plan: Sleep hygiene reinforced Continue Zolpidem CR 12.5 mg Q HS Has been checked out and advised by Sleep Medicine that she does NOT have FAISAL Was recently tried on Belsomra, which she states has been helping with her sleep better but this was denied by her insurance Follow up with Sleep Medicine as scheduled - has appt coming up next week (6) Anxiety: Code(s): F41.9 - Anxiety disorder, unspecified Plan: Advised again to continue following up with her current therapist ([facility]) regularly/weekly; was also seen by a psychiatrist previously but was advised at the time that she can continue seeing her therapist weekly and does not need to see psychiatry regularly but patient is instructed to talk to her therapist about getting her back in to see psychiatry [facility] given her recent issues Continue Lorazepam 1 mg BID PRN She was previously on Escitalopram 10 mg QD but she self-discontinued this a few months ago and her anxiety and depression got worse afterwards She was started on Wellbutrin XL 150 mg Q AM and Buspirone 7.5 mg BID a couple of months ago but was instructed to stop taking them when she reported experiencing increased and frequent headaches while on the Rx (7) Major depression, recurrent, chronic: Code(s): F33.9 - Major depressive disorder, recurrent, unspecified Plan: Increased since she stopped taking her Escitalopram a few months ago Could not tolerate Wellbutrin XL 150 mg Q AM and Buspirone due to increased headaches Will try starting her on Duloxetine 30 mg Q HS x 7 days and if no problems, can go up to 30 mg BID afterwards She is reminded to continue following up with her therapist regularly and to request seeing psychiatry again for a new consultation given her recent issues (8) Obesity (BMI 30-39.9): Code(s): E66.9 - Obesity, unspecified Plan: Reinforced diet/exercise as tolerated/lose weight Plan Follow up in 3 months Medications: New duloxetine 30 mg PO BID 60 caps 3RF Coding Level of Care Code Est Pt Level 4 (92122) Diagnoses Crohn's disease with complication, unspecified gastrointestinal tract location K50.919 Digestive disease complication type: unspecified complication Gastrointestinal tract location: unspecified location Lumbar degenerative disc disease M51.36 Migraine without status migrainosus, not intractable, unspecified migraine type G43.909 Migraine type: unspecified Status migrainosus presence: without status migrainosus Intractability: not intractable Impaired fasting glucose R73.01 Insomnia, unspecified type G47.00 Insomnia type: unspecified Anxiety F41.9 Major depression, recurrent, chronic F33.9 Obesity (BMI 30-39.9) E66.9
== END 2023-10-04 10:57 | disposition home or self-care (01) ==
PROVIDERS: PCP Internal Medicine; Visit Provider Internal Medicine
DX: K50.919 Crohn's disease, unspecified, with unspecified complications (principal); F33.9 Major depressive disorder, recurrent, unspecified; F41.9 Anxiety disorder, unspecified; M51.36 Other intervertebral disc degeneration, lumbar region; G43.909 Migraine, unspecified, not intractable, without status migrainosus; R73.01 Impaired fasting glucose; G47.00 Insomnia, unspecified; E66.9 Obesity, unspecified
CPT/HCPCS: 99214

== ENCOUNTER 2023-10-04 11:03 | Outpatient (REF) | payer OTHER, SELFPAY ==
[2023-10-04 13:22] LABS: MANUAL DIFF FLAG NO
[2023-10-04 13:38] LABS: Basophils Absolute Auto 0.1 X10*3/uL (0.0-0.2); Basophils Percent Auto 0.5 % (0-2); Eosinophils Absolute Auto 0.2 X10*3/uL (0.0-0.4); Eosinophils Percent Auto 1.7 % (0-4); Hematocrit 42.8 % (37.0-47.0); Hemoglobin 13.8 g/dl (12.0-16.0); Imm Gran Abs Auto 0.05 X10*3/uL (0.00-0.03); Imm Gran Pct Auto 0.5 % (0.0-0.4); Lymphocytes Absolute Auto 1.7 X10*3/uL (1.2-4.9); Lymphocytes Percent Auto 16.8 % (20-40); Mean Corpuscular HGB Conc 32.2 g/dl (31.0-35.0); Mean Corpuscular Hemoglobin 30.6 pg (27.0-33.0); Mean Corpuscular Volume 94.9 fL (80.0-98.0); Monocytes Absolute Auto 0.6 X10*3/uL (0.1-1.2); Monocytes Percent Auto 6.4 % (2-11); Neutrophils Absolute Auto 7.5 x10*3/uL (2.0-8.3); Neutrophils Percent Auto 74.1 % (45-73); Platelet Count 371 X10*3/uL (160-400); Red Blood Count 4.51 X10*6/uL (4.20-5.50); Red Cell Distribution Width 13.8 % (11.0-16.0); White Blood Count 10.1 X10*3/uL (4.8-10.8)
[2023-10-04 13:58] LABS: Anion Gap 11 (12-20); Blood Urea Nitrogen 13 mg/dL (9-16); C Reactive Protein 0.65 mg/dL (< or = 0.50); Calcium 9.9 mg/dL (8.4-10.2); Carbon Dioxide 30 mmol/L (22-29); Chloride 104 mmol/L (96-108); Estimated Glomerular Filt Rate > 60; Glucose Random 97 mg/dL (60-115); Potassium 4.9 mmol/L (3.3-5.1); Sodium 140 mmol/L (135-145)
[2023-10-04 14:13] LABS: Erythrocyte Sedimentation Rate 16 MM/HR (0-20)
== END 2023-10-04 11:04 | disposition home or self-care (01) ==
LOC: HO.10HDL 11:03
PROVIDERS: Visit Provider Internal Medicine
DX: R93.3 Abnormal findings on diagnostic imaging of other parts of digestive tract (principal); K50.012 Crohn's disease of small intestine with intestinal obstruction; R10.84 Generalized abdominal pain
CPT/HCPCS: 36415; 80048; 85025; 85652; 86140

== ENCOUNTER 2023-10-09 08:57 | Outpatient (AMB) | payer OTHER, SELFPAY ==
--- NOTE | 2023-10-02 10:32 | A.OFFVIS_ITS ---
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 Required: No Allergies meperidine [From Demerol] Allergy (Severe, Verified 10/02/23 10:34) SWELLING,RASH,THROAT CLOSES latex [LATEX] Allergy (Mild, Verified 10/02/23 10:34) RASH codeine [Codeine] Adverse Reaction (Intermediate, Verified 10/02/23 10:34) NAUSEA/VOMITING, GI upset/vomiting trazodone Adverse Reaction (Mild, Verified 10/02/23 10:34) Anxiety Fish Containing Products [Fish Product Derivatives] Adverse Reaction (Unknown, Verified 10/02/23 10:34) NAUSEA/VOMITING PFSH Medical History (Updated 09/04/23 @ 11:08 by Rosie Pearce) Postcoital bleeding Urinary incontinence in female Major depression, recurrent, chronic Furuncle Diverticulitis Obesity (BMI 30-39.9) Crohn's colitis Crohns disease of small intestine Crohn's colitis Intractable nausea and vomiting Migraine History of renal cell cancer (~2014) Osteoarthritis of hips, bilateral Depression Crohn's disease Lumbar degenerative disc disease Insomnia Anxiety 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 Surgical History Hx of colonoscopy History of esophagogastroduodenoscopy (EGD) History of removal of calculus of renal pelvis through percutaneous nephrostomy (~10/2015) History of cryosurgery (~04/20/15) History of intestinal surgery History of arthroplasty (~01/2012) Family History Father Crohn disease Migraine Cancer Mother HTN (hypertension) Vertigo Cervical cancer Maternal Grandmother HTN (hypertension) Hyperlipidemia Diabetes mellitus Paternal Grandmother Diabetes mellitus Other Mental health problem Social History Household Members: Family and Children Housing: House Do you presently have visiting nurse or other home services: No Alcohol intake: current Alcohol intake frequency: holidays/special occasions only Patient Tobacco Use Status: Former Tobacco user Tobacco use type: Cigarette e-Cigarette/Vaping Use: Former Use Second Hand Smoke Exposure: No Advance Directives Date on File: 06/15/22 service: No Current occupational status: unemployed Gender identity: Female Cognitive needs: No Hearing needs: No Vision needs: Yes (glasses) Female Reproductive History Menstrual Age of Menarche: 12 Coding
--- NOTE | 2023-10-09 09:01 | MHC.OFFVIS ---
Intake Vital Signs 10/09/23 09:07 Height 5 ft 2 in Weight 176 lb 6 oz BMI 32.3 BP 126/62 Blood Pressure Location Lt brachial Position Sitting Pulse 94 Pulse Source Pulse Oximeter Pulse Oximetry (%) 98 Oxygen Delivery Method Room Air Intake Visit Reasons: f/u appt for sleep - LVM Intake Note: F/U Sleep issues Allergies meperidine [From Demerol] Allergy (Severe, Verified 10/09/23 09:02) SWELLING,RASH,THROAT CLOSES latex [LATEX] Allergy (Mild, Verified 10/09/23 09:02) RASH codeine [Codeine] Adverse Reaction (Intermediate, Verified 10/09/23 09:02) NAUSEA/VOMITING, GI upset/vomiting trazodone Adverse Reaction (Mild, Verified 10/09/23 09:02) Anxiety Fish Containing Products [Fish Product Derivatives] Adverse Reaction (Unknown, Verified 10/09/23 09:02) NAUSEA/VOMITING bupropion Adverse Reaction (Intermediate, Uncoded 10/09/23 09:02) increased headaches HPI HPI Comments History of Present Illness Details 47 y/o female patient presents for follow up of insomnia. Pt reports that she sleeps better now, she can sleep 4 nights without taking medications. She can sleep 5-6 hrs. She does not use zolpidem ER 12.5 mg every night, just uses as needed. Pt also uses melatonin 5 mg as needed, too. Denies REM behavior. Pt reports she practice sleep hygiene, more physical activities during daytime, limit electronic use in the evening. She also uses ocean sounds, seems to be helpful. She takes ativan 1mg BID as needed for anxiety, and sees psychologist. Pt tried Lunesta, and remelteon for insomnia in the past, but they did not work. Belsomra 10 mg was most helpful but patient's insurance does not cover it.? [facility] Medical History Postcoital bleeding Urinary incontinence in female Major depression, recurrent, chronic Furuncle Diverticulitis Obesity (BMI 30-39.9) Crohn's colitis Crohns disease of small intestine Crohn's colitis Intractable nausea and vomiting Migraine History of renal cell cancer (~2014) Osteoarthritis of hips, bilateral Depression Crohn's disease Lumbar degenerative disc disease Insomnia Anxiety 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 Surgical History Hx of colonoscopy History of esophagogastroduodenoscopy (EGD) History of removal of calculus of renal pelvis through percutaneous nephrostomy (~10/2015) History of cryosurgery (~04/20/15) History of intestinal surgery History of arthroplasty (~01/2012) Family History Father Crohn disease Migraine Cancer Mother HTN (hypertension) Vertigo Cervical cancer Maternal Grandmother HTN (hypertension) Hyperlipidemia Diabetes mellitus Paternal Grandmother Diabetes mellitus Other Mental health problem (Updated 10/09/23 @ 09:06 by Yaneth Jones CMA) Household Members: Family and Children Housing: House Do you presently have visiting nurse or other home services: No Alcohol intake: current Alcohol intake frequency: holidays/special occasions only Patient Tobacco Use Status: Former Tobacco user Tobacco use type: Cigarette e-Cigarette/Vaping Use: Former Use Second Hand Smoke Exposure: No Advance Directives Date on File: 06/15/22 service: No Current occupational status: unemployed Gender identity: Female Cognitive needs: No Hearing needs: No Vision needs: Yes (glasses) Female Reproductive History Menstrual Age of Menarche: 12 Review of Systems Const All systems reviewed & are unremarkable except as noted in HPI and below Physical Exam Vital Signs: Last Vital Signs Pulse 94 10/09/23 09:07 BP 126/62 10/09/23 09:07 Pulse Ox 98 10/09/23 09:07 Oxygen Delivery Method Room Air 10/09/23 09:07 BMI result Body Mass Index 32.3 Const General: cooperative and comfortable Nutritional Appearance: obese Orientation/consciousness: patient oriented x3 HEENT Head: Yes normocephalic Ears: hearing grossly normal bilaterally Neuro General: patient oriented x3, gait normal, moves all extremities and no focal motor deficits Cranial nerves: Yes Bilaterally intact EOM present, Yes Normal facial strength present, Yes Ability to bilaterally rotate head present and Yes Ability to bilaterally elevate shoulders present Cognition (Neuro): normal cognition Gait exam (Neuro): Normal gait present Psych Appearance: grossly normal Mental Status: mental status grossly normal Speech and movement: Normal speech and movement present Affect: Anxious affect present Attitude: cooperative Assessment & Plan Assessment & Plan (1) Anxiety: Code(s): F41.9 - Anxiety disorder, unspecified (2) Insomnia: Code(s): G47.00 - Insomnia, unspecified Qualifiers: Insomnia type: unspecified Qualified Code(s): G47.00 - Insomnia, unspecified Plan Advised patient to take zolpidem ER as needed, and try to off the medication. Pt may use melatonin 10 mg. Encouraged patient to continue to practice good sleep hygiene. Coding Level of Care Code Est Pt Level 3 (69933) Diagnoses Anxiety F41.9 Insomnia, unspecified type G47.00 Insomnia type: unspecified
[2023-10-09 09:07] VITALS: BP 126/62; PULSE 94; O2SAT 98; BMI 32.3
== END 2023-10-09 09:30 | disposition home or self-care (01) ==
PROVIDERS: PCP Internal Medicine; Visit Provider Nurse Practitioner Family
DX: G47.00 Insomnia, unspecified (principal); F41.9 Anxiety disorder, unspecified
CPT/HCPCS: 99213

== ENCOUNTER → 2023-10-09 08:57 | Outpatient (BNVA) | payer OTHER, SELFPAY | PROVIDERS: PCP Internal Medicine; Visit Provider Nurse Practitioner Family | DX: G47.00 Insomnia, unspecified (principal); F41.9 Anxiety disorder, unspecified | CPT/HCPCS: 99212 ==

== ENCOUNTER 2023-10-22 09:47 | Outpatient (REF) | payer OTHER, SELFPAY | END 2023-10-22 09:48 | disposition home or self-care (01) | LOC: HO.MDS 09:47 | PROVIDERS: Visit Provider Internal Medicine | DX: K50.90 Crohn's disease, unspecified, without complications (principal) | CPT/HCPCS: 96365; 96375; J1200; J3380 ==

== ENCOUNTER 2023-10-29 10:56 | Outpatient (AMB) | payer OTHER, SELFPAY ==
--- NOTE | 2023-10-29 11:08 | MHC.OFFVIS ---
Intake Intake Visit Reasons: Unspecified urinary incontinence Intake Note: New Patient presents for initial visit for urinary incontinence Urology Medications: none Blood Thinner: none PVR: 0ml's Anesthesiology Physician Assistant Required: No Accompanied by: Self / Same As Patient Allergies meperidine [From Demerol] Allergy (Severe, Verified 10/29/23 11:57) SWELLING,RASH,THROAT CLOSES latex [LATEX] Allergy (Mild, Verified 10/29/23 11:57) RASH codeine [Codeine] Adverse Reaction (Intermediate, Verified 10/29/23 11:57) NAUSEA/VOMITING, GI upset/vomiting trazodone Adverse Reaction (Mild, Verified 10/29/23 11:57) Anxiety Fish Containing Products [Fish Product Derivatives] Adverse Reaction (Unknown, Verified 10/29/23 11:57) NAUSEA/VOMITING bupropion Adverse Reaction (Intermediate, Uncoded 10/29/23 11:57) increased headaches Medication List - Last Reconciled 10/29/23 by STEPHANIE Mir acetaminophen 650 mg (2 x 325 mg) PO Q8H PRN 30 days budesonide ER 9 mg PO DAILY clonidine HCl 0.1 mg PO TID PRN dicyclomine 10 mg PO BID PRN diphenoxylate-atropine 2.5-0.025 mg 1 - 2 tabs PO Q6H PRN duloxetine 30 mg PO BID levonorgestrel (Mirena) 1 device intrauterine ONCE lorazepam 1 mg (2 x 0.5 mg) PO BID 30 days mesalamine ER 500 mg PO QID omeprazole 40 mg PO DAILY ondansetron 4 mg PO Q8H PRN sumatriptan succinate take 1 tab at onset of headache; if no relief may repeat 1 tab after at least 2 hrs; max = 4 tabs/24 hr PO tramadol 50 mg PO TID PRN 30 days vedolizumab (Entyvio) 300 mg IV Q4W zolpidem ER 12.5 mg orally every other day; 30 days HPI HPI Comments History of Present Illness Details Gabi is a very pleasant 48-year-old female patient of Dr. Frank. She has a PMH of depression, diverticulitis, obesity, Crohn's disease, migraines, renal cell cancer, osteoarthritis, depression, insomnia, and anxiety. She presents to the office today as a new patient for coital incontinence. Patient reports symptoms have been present for a few months. She reports noting that although she attempts to empty her bladder prior to sexual activity at time she still feels urinary incontinence during sexual intercourse. She otherwise denies any bothersome urinary issues. She denies urinary urgency, urinary frequency, incontinence, nocturia, hematuria, dysuria, foul smelling urine, changes to urinary stream, flank pain, fever, and or chills. In office urinalysis results reviewed with the patient today. Discussed at length causes of coital incontinence. Discussed obtaining retroperitoneal ultrasound for further assessment evaluation as well as referral to pelvic floor therapy for further assessment evaluation of coital incontinence. She otherwise denies any other issues or concerns at this time. [facility] Medical History Postcoital bleeding Urinary incontinence in female Major depression, recurrent, chronic Furuncle Diverticulitis Obesity (BMI 30-39.9) Crohn's colitis Crohns disease of small intestine Crohn's colitis Intractable nausea and vomiting Migraine History of renal cell cancer (~2014) Osteoarthritis of hips, bilateral Depression Crohn's disease Lumbar degenerative disc disease Insomnia Anxiety 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 Surgical History Hx of colonoscopy History of esophagogastroduodenoscopy (EGD) History of removal of calculus of renal pelvis through percutaneous nephrostomy (~10/2015) History of cryosurgery (~04/20/15) History of intestinal surgery History of arthroplasty (~01/2012) Family History Father Crohn disease Migraine Cancer Mother HTN (hypertension) Vertigo Cervical cancer Maternal Grandmother HTN (hypertension) Hyperlipidemia Diabetes mellitus Paternal Grandmother Diabetes mellitus Other Mental health problem Social History Household Members: Family and Children Housing: House Do you presently have visiting nurse or other home services: No Alcohol intake: current Alcohol intake frequency: holidays/special occasions only Patient Tobacco Use Status: Former Tobacco user Tobacco use type: Cigarette e-Cigarette/Vaping Use: Former Use Second Hand Smoke Exposure: No Advance Directives Date on File: 06/15/22 service: No Current occupational status: unemployed Gender identity: Female Cognitive needs: No Hearing needs: No Vision needs: Yes (glasses) Female Reproductive History Menstrual Age of Menarche: 12 Review of Systems Const Reports as per [facility] Eyes Reports no additional complaints ENT Reports no additional complaints Card Reports as per [facility] Resp Reports no additional complaints GI Reports as per HPI Reports as per [facility] Musc Reports as per [facility] Neuro Reports no additional complaints Psych Reports as per HPI Endo Reports no additional complaints Physical Exam Const General: cooperative, healthy appearing, comfortable, no acute distress, well developed, alert and awake Nutritional Appearance: overweight Orientation/consciousness: patient oriented x3 Limitations: no limitations HEENT Head: Yes normal to inspection, Yes normocephalic and Yes atraumatic Ears: hearing grossly normal bilaterally Eyes General: appearance normal, both eyes and all related structures Neck Neck: Yes normal visual inspection and Yes trachea midline Chest Chest palpation & inspection: normal inspection of the chest Resp Effort & Inspection: normal respiratory effort and able to speak in complete sentences Cardio Rate: regular rate GI Inspection: Yes normal to inspection General: Yes no CVA tenderness Back/Spine/Pelvis Back: no CVA tenderness Skin General skin exam: no rashes or lesions noted Neuro General: patient oriented x3 Extrem General: Yes normal to inspection Psych Appearance: grossly normal and well kempt Mental Status: mental status grossly normal Speech and movement: Normal speech and movement present and Clear speech present Affect: normal affect Attitude: cooperative Thought process: Normal thought process present Thought content: Normal thought content present Insight: Fair insight present (Psych) Judgement: Fair judgement present (Psych) Office Procedures Post Void Residual Post Residual Void Post Void Residual (PVR): 0 57650-[id number] Void Residual by ultrasound Results AMB Urinalysis, Automated UA Leukoctes 0 Rajni/uL Last Edit by [employer] on 10/29/23 11:40 UA Nitrite Negative Last Edit by [employer] on 10/29/23 11:40 UA Urobilinogen 0.2 mg/dL Last Edit by [employer] on 10/29/23 11:40 UA Protein 15 mg/dL Last Edit by [employer] on 10/29/23 11:40 UA pH 6.0 Last Edit by [employer] on 10/29/23 11:40 UA Blood 0 Ernie/uL Last Edit by [employer] on 10/29/23 11:40 UA Specific [place] 1.020 Last Edit by Maria Guadalupe Whaley on 10/29/23 11:40 UA Ketone Negative Last Edit by Maria Guadalupe Whaley on 10/29/23 11:40 UA Bilirubin 0 mg/dL Last Edit by Maria Guadalupe Whaley on 10/29/23 11:40 UA Glucose 0 mg/dL Last Edit by Maria Guadalupe Whaley on 10/29/23 11:40 Results Reviewed Results Reviewed: Laboratory Last Values Urine pH (Auto) 6.0 10/29/23 11:11 Specific [place] (Auto) 1.020 10/29/23 11:11 Urine Protein (Auto) 15 mg/dL 10/29/23 11:11 Glucose (UA)(Auto) 0 mg/dL 10/29/23 11:11 Urine Ketones (Auto) Negative 10/29/23 11:11 Urine Blood (Auto) 0 Ernie/uL 10/29/23 11:11 Urine Nitrite (Auto) Negative 10/29/23 11:11 Urine Bilirubin (Auto) 0 mg/dL 10/29/23 11:11 Urine Urobilinogen (Auto) 0.2 mg/dL 10/29/23 11:11 Leukocyte Esterase (Auto) 0 Rajni/uL 10/29/23 11:11 Assessment & Plan Assessment & Plan (1) Coital incontinence: Code(s): N39.491 - Coital incontinence Plan In office urinalysis results reviewed with the patient today. PVR 0 mL. Discussed pelvic floor therapy at length Will refer to pelvic floor therapy as discussed Will obtain retroperitoneal ultrasound for further assessment evaluation. Patient reports to be happy with current voiding parameters. Follow-up in 3 months if not sooner with any issues, concerns, and or questions. Orders: Orders AMB Urinalysis Automated Today Z13.9 - Encounter for screening, unspecified US retroperitoneal comp Today N39.491 - Coital incontinence AMB Post Void Residual by ultrasound Today R32 - Unspecified urinary incontinence Referrals Pelvic Modeling Analyst Referral N39.491 - Coital incontinence Patient Instructions: The patient had an opportunity to ask questions regarding the treatment plan. All questions were answered. Physical exam, labs, and imaging were discussed and reviewed in detail. As well as risks, benefits, and discussion of treatment choices. No major barriers to understanding were identified. The patient expressed understanding and agreement with the above treatment plan. The patient was made aware they should contact our office by phone for worsening of their current condition, the appearance of new symptoms, or with any questions or concerns. Compliance is encouraged with any medications and follow up testing that is ordered. It is a privilege to be allowed the opportunity to participate in? your urological care.? Again, if you have any questions or concerns If you have any questions or concerns please do not hesitate to contact me. The office is [phone]. This note is constructed using voice recognition software. While every effort has been made to ensure accuracy shuffle board operator errors may have been included. Yours sincerely, STEPHANIE Mir Coding Level of Care Code New Pt Level 3 (00362) Diagnoses Coital incontinence N39.491 CPT Codes Post Residual Void - PVR CPT Code: 55985-Bzfo Void Residual by ultrasound ([id number])
== END 2023-10-29 12:04 | disposition home or self-care (01) ==
PROVIDERS: PCP Internal Medicine; Visit Provider Nurse Practitioner Family
DX: N00-N99 Diseases of the genitourinary system (principal)
CPT/HCPCS: 99203

== ENCOUNTER → 2023-10-29 10:56 | Outpatient (BNVA) | payer OTHER, SELFPAY | PROVIDERS: PCP Internal Medicine; Visit Provider Nurse Practitioner Family | DX: N00-N99 Diseases of the genitourinary system (principal) | CPT/HCPCS: 51798; 81003; 99202 ==

== ENCOUNTER 2023-11-19 09:13 | Outpatient (REF) | payer OTHER, SELFPAY ==
[2023-11-19] MEDS: gadobutroL 10 ML VIAL IVPUSH (12:01)
== END 2023-11-19 09:14 | disposition home or self-care (01) ==
LOC: HO.MRI 09:13
PROVIDERS: PCP Internal Medicine; Visit Provider Internal Medicine
DX: K50.012 Crohn's disease of small intestine with intestinal obstruction (principal); R93.3 Abnormal findings on diagnostic imaging of other parts of digestive tract
CPT/HCPCS: 72197; 74183; A9585

== ENCOUNTER 2023-11-20 10:02 | Outpatient (REF) | payer OTHER, SELFPAY | END 2023-11-20 10:03 | disposition home or self-care (01) | LOC: HO.MDS 10:02 | PROVIDERS: Visit Provider Internal Medicine | DX: K50.812 Crohn's disease of both small and large intestine with intestinal obstruction (principal) | CPT/HCPCS: 96365; 96375; J1200; J3380 ==

== ENCOUNTER → 2023-12-12 08:10 | Outpatient (BNV) | payer OTHER, SELFPAY | PROVIDERS: Emergency Provider Emergency Medicine; PCP Internal Medicine; Visit Provider Internal Medicine Cardiovascular Disease | DX: R94.31 Abnormal electrocardiogram [ECG] [EKG] (principal) | CPT/HCPCS: 93010 ==

== ENCOUNTER 2023-12-12 14:45 | Emergency (ER) | payer OTHER, SELFPAY ==
--- NOTE | ~2023-12-12 | CT_ITS ---
EXAMINATION: CT ABDOMEN AND PELVIS WITH CONTRAST CLINICAL INFORMATION: Abdominal pain, history of diverticulitis COMPARISON: MRI of the abdomen 11/19/2023, CT of the abdomen and pelvis 08/21/2023 TECHNIQUE: Multidetector volumetric images were obtained from the superior aspect of the liver through the pubic symphysis following administration 85 mL of Omnipaque 350 intravenous contrast. Sagittal and coronal reformatted images were obtained on the technologist's workstation. Oral contrast: No This CT examination was performed using dose optimization techniques as appropriate, variously including the following: *Automated exposure control *Adjustment of mA and/or kV according to patient size (this includes techniques or standardized protocols for targeted exams where dose is matched to indication/reason for exam; i.e. extremities or head) *Use of iterative reconstruction technique DLP: 542 mGy-cm FINDINGS: LUNG BASES: The visualized lung bases are unremarkable. LIVER, GALLBLADDER, AND BILIARY TREE: The liver is normal in size, shape, and attenuation. No focal hepatic lesion or biliary ductal dilatation is present. The gallbladder is unremarkable with no evidence of radiopaque gallstones, gallbladder wall thickening, or obvious pericholecystic inflammatory changes. PANCREAS: Unremarkable. SPLEEN: Unremarkable. ADRENAL GLANDS: Unremarkable. KIDNEYS AND URETERS: The kidneys are normal in size, shape, and attenuation. No hydronephrosis, hydroureter, or calculi seen. No perinephric stranding. Small simple appearing bilateral renal cysts are better evaluated on the prior MRI. BLADDER: Unremarkable. GASTROINTESTINAL TRACT: The stomach is not distended. Again demonstrated is mild wall thickening of the terminal ileum, improved since the prior studies. Again demonstrated are areas of alternating narrowing and dilatation. No evidence for penetrating disease. Again demonstrated is diverticulosis throughout the colon. There is focal wall thickening and stranding in the mesenteric fat surrounding the sigmoid colon, compatible with diverticulitis (series 3, image 69). No evidence for perforation or abscess. There is a large amount of stool throughout the colon. ABDOMINAL WALL: Moderate fat-containing umbilical hernia is again demonstrated. LYMPH NODES: Normal. VASCULAR: Unremarkable. PELVIC VISCERA: Normal uterus and ovaries. Intrauterine device is in place. OSSEOUS STRUCTURES: No acute or suspicious osseous abnormality. Multilevel degenerative disc disease within the spine. Surgical hardware in the left proximal femur is unchanged with degenerative changes of the left hip. CT/CT abdomen pelvis w IV con IMPRESSION: Colonic diverticulosis with wall thickening of the sigmoid colon with surrounding stranding, likely representing acute diverticulitis. In this patient with existing inflammatory bowel disease, differential diagnosis would include underlying bowel inflammation. No evidence for perforation or abscess formation. Interval improved appearance of the terminal ileum with some residual wall thickening and intermittent areas of luminal narrowing and dilatation. No evidence for penetrating disease. Redemonstration of bilateral simple appearing renal cysts, better evaluated on the prior MRI, for which no further follow-up is necessary. Fleischner guidelines were followed.
--- NOTE | 2023-12-12 08:10 | ECG_ITS ---
Test Reason : ABD PAIN Blood Pressure : / mmHG Vent. Rate : 091 BPM Atrial Rate : 091 BPM P-R Int : 152 ms QRS Dur : 074 ms QT Int : 376 ms P-R-T Axes : 026 006 035 degrees QTc Int : 462 ms Normal sinus rhythm Cannot rule out Anterior infarct , age undetermined Abnormal ECG When compared with ECG of 21-FEB-2022 11:40, No significant change was found Referred By: Martha Botello Electronically Signed By:Loco Berry
[2023-12-12 14:52] VITALS: BP 150/81; PULSE 110; RESP 22; TEMP 37.1; O2SAT 100; BMI 29.1
--- NOTE | 2023-12-12 14:53 | ED_ITS ---
HPI - Abdominal Pain General Chief Complaint: Abdominal Pain Stated Complaint: Chrons/diverticulitis Time Seen by Provider: 12/12/23 17:03 Source: patient, RN notes reviewed and old records reviewed Mode of arrival: ambulatory Limitations: no limitations History of Present Illness HPI narrative: 48-year-old female with past medical history significant for Crohn's disease on Entyvio followed by Dr. Alexis, depression, obesity, presents for evaluation of abdominal pain. Patient reports that she has had abdominal pain for years. She states for last few days she has had worsening lower abdominal pain that has seemed to migrate to the left lower abdomen She reports she initially had diarrhea but then felt constipated Now she reports that she ?feel like I have nothing left to go. ? She continues to have severe abdominal pain and is tearful during the evaluation She reports her pain is 10/10 Denies any fevers or chills The patient had an MRI of the abdomen and pelvis 3 weeks ago showing findings consistent with Crohn's disease No other complaints or concerns at this time Related Data Home Medications Medication Instructions Recorded Confirmed levonorgestrel 21 mcg/24 hours (8 1 device intrauterine ONCE 10/04/20 10/04/23 yrs) 52 mg intrauterine device (Mirena) diphenoxylate-atropine 2.5 1 - 2 tab PO Q6H PRN Diarrhea 05/04/22 10/04/23 mg-0.025 mg tablet dicyclomine 10 mg capsule 10 mg PO BID PRN Gastrointestinal 07/17/22 10/04/23 Spasms Or Cramping vedolizumab 300 mg intravenous 300 mg IV Q4W 10/16/22 10/04/23 solution (Entyvio) budesonide 3 mg 9 mg PO DAILY 11/14/22 10/04/23 capsule,delayed,extended release mesalamine 500 mg capsule,extended 500 mg PO QID 11/14/22 10/04/23 release omeprazole 20 mg capsule,delayed 40 mg PO DAILY 10/04/23 10/04/23 release Previous Rx's Medication Instructions Recorded acetaminophen 325 mg tablet 650 mg (2 x 325 mg) PO Q8H PRN 04/29/21 Pain, Mild (Pain Scale 1-3) 30 days ondansetron 4 mg disintegrating 4 mg PO Q8H PRN nausea and 07/01/23 tablet vomiting #20 tabs duloxetine 30 mg capsule,delayed 30 mg PO BID #60 caps 10/04/23 release clonidine HCl 0.1 mg tablet 0.1 mg PO TID PRN for anxiety #90 10/25/23 tabs sumatriptan succinate 50 mg tablet See Rx Instructions PO .COMPLEX 11/20/23 #30 tabs lorazepam 0.5 mg tablet 1 mg (2 x 0.5 mg) PO BID anxiety 11/26/23 30 days #120 tabs tramadol 50 mg tablet 50 mg PO TID PRN pain 30 days #90 11/26/23 tabs zolpidem 12.5 mg tablet,extended 12.5 mg PO .COMPLEX 30 days #15 11/26/23 release,multiphase tabs amoxicillin 875 mg-potassium 1 tab PO TID #21 tabs 12/12/23 clavulanate 125 mg tablet morphine 15 mg immediate release 15 mg PO Q4-6H PRN pain #8 tabs 12/12/23 tablet promethazine 25 mg rectal 25 mg VA Q6H PRN nausea and 12/12/23 suppository vomiting #12 ea Allergies Allergy/AdvReac Type Severity Reaction Status Date / Time meperidine [From Demerol] Allergy Severe SWELLING,RASH,THROAT Verified 12/12/23 14:56 CLOSES latex [LATEX] Allergy Mild RASH Verified 12/12/23 14:56 codeine [Codeine] AdvReac Intermediate NAUSEA/VOMITING, Verified 12/12/23 14:56 GI upset/vomiting trazodone AdvReac Mild Anxiety Verified 12/12/23 14:56 Fish Containing Products AdvReac Unknown NAUSEA/VOMI Verified 12/12/23 14:56 [Fish Product Derivatives] TING bupropion AdvReac Intermediate increased Uncoded 10/29/23 11:57 headaches Review of Systems Constitutional: Denies fever(s) and Denies headache(s) Denies headache(s) and Denies sore throat Cardiovascular: Denies chest pain and Denies dyspnea Respiratory: Denies cough and Denies dyspnea Gastrointestinal: Reports abdominal pain, Reports constipation, Reports diarrhea and Reports nausea Musculoskeletal: Denies back pain Skin/Breast: Denies rash Denies headache(s) PMFSH Past Medical History Medical History Postcoital bleeding Urinary incontinence in female Major depression, recurrent, chronic Furuncle Diverticulitis Obesity (BMI 30-39.9) Crohn's colitis Crohns disease of small intestine Crohn's colitis Intractable nausea and vomiting Migraine History of renal cell cancer (~2014) Osteoarthritis of hips, bilateral Depression Crohn's disease Lumbar degenerative disc disease Insomnia Anxiety 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 Surgical History Hx of colonoscopy History of esophagogastroduodenoscopy (EGD) History of removal of calculus of renal pelvis through percutaneous nephrostomy (~10/2015) History of cryosurgery (~04/20/15) History of intestinal surgery History of arthroplasty (~01/2012) Family History Family History Father Crohn disease Migraine Cancer Mother HTN (hypertension) Vertigo Cervical cancer Maternal Grandmother HTN (hypertension) Hyperlipidemia Diabetes mellitus Paternal Grandmother Diabetes mellitus Other Mental health problem Social History Social History Household Members: Family and Children Housing: House Do you presently have visiting nurse or other home services: No Alcohol intake: current Alcohol intake frequency: holidays/special occasions only Patient Tobacco Use Status: Former Tobacco user Tobacco use type: Cigarette e-Cigarette/Vaping Use: Former Use Second Hand Smoke Exposure: No Advance Directives: Yes Advance Directives on File: Yes Advance Directives Date on File: 06/15/22 service: No Current occupational status: unemployed Gender identity: Female Cognitive needs: No Hearing needs: No Vision needs: Yes (glasses) Physical Exam ED Vital Signs: Vital Signs - 24 hr 12/12/23 14:52 12/12/23 16:00 12/12/23 18:58 Temperature 98.8 F 98.0 F 98.3 F Pulse Rate 110 H 101 H 83 Respiratory Rate 22 H 16 18 Blood Pressure 150/81 H 138/64 139/82 Pulse Oximetry 100 97 97 Oxygen Delivery Method Room Air Room Air Room Air 12/12/23 20:54 Temperature 97.8 F Pulse Rate 91 Respiratory Rate 16 Blood Pressure 136/62 Pulse Oximetry 98 Oxygen Delivery Method Room Air BMI result Body Mass Index 29.1 Const General: healthy appearing, comfortable, no acute distress, alert and awake Nutritional Appearance: well nourished Orientation/consciousness: patient oriented x3 HENMT Head: Yes normocephalic and Yes atraumatic Eyes Eyelids: Yes eyelids normal Conjunctivae: conjunctivae normal Sclerae: sclerae normal Corneas: corneas normal Pupils: Equal, round and reactive pupils present EOM: EOMs intact bilaterally Neck Neck: Yes full ROM Resp Effort & Inspection: normal respiratory effort, able to speak in complete sentences and not labored GI Inspection: No distended Palpation (GI): Soft to palpation, not firm, Tenderness to palpation present (GI) (Diffusely tender with guarding the left lower abdomen), Guarding due to palpation present (GI) in the LLQ and not rigid Auscultation: normoactive bowel sounds Skin General skin exam: elasticity normal Neuro General: patient oriented x3 Cranial nerves: Yes Equal, round and reactive pupils present and Yes Bilaterally intact EOM present Cognition (Neuro): normal cognition Extrem Other: Moving all extremities well without any obvious deformities Course Course Course Narrative: This is an RME: Additional HPI, ROS, PE not included below will be deferred to primary provider. This is a 48 year old female, with a past medical history of Crohn's disease, depression anxiety, presenting to the ER with a complaint of worsening abdominal pain. Has had a flare up for sevearl weeks She states that she has a hx of crohn's & colitis and sxs feel similar. Reporting some blood in stool and mucus in stool. Endorsing nausea. Tearful secondary to pain. Plan: Labs, CT abd/pelvis, UA Reevaluation(s) Reevaluation #1: Patient's CT scan shows diverticulitis. No evidence of abscess, perforation obstruction. The patient is not septic. The patient has thus far been unable to tolerate anything orally. Will trial a dose of Haldol 2.5 mg IV. Time: 20:15 Reevaluation #2: Patient reports feeling much better, given that her labs, vitals are fine, her CT scan shows uncomplicated diverticulitis, we will treat with Augmentin and discharge the patient Time: 22:02 Medical Decision Making Medical Decision Making MDM Narrative: 48-year-old female presents for evaluation of lower abdominal pain. She has a history of chronic abdominal pain. She also has a history of opioid dependence. She appears quite uncomfortable. Her labs are quite reassuring. Given her level discomfort with a CT scan the abdomen pelvis that was already ordered in triage. Will treat the patient's discomfort with Dilaudid, Zofran IV fluids. Most likely diagnosis time is Crohn's flare versus diverticulitis versus acute on chronic abdominal pain Differential Diagnosis Differential Diagnoses: The differential diagnosis associated with the presentation includes Crohn's exacerbation IBD Diverticulitis Bowel perforation Bowel obstruction Chronic abdominal pain Opiate abuse Admission/Observation Consideration of admission/observation: Escalation of care including admission/observation considered Consider admission for intractable abdominal pain after multiple doses of narcotics over the patient family reports feeling better after receiving Haldol Lab Data MDM Lab Attestation statement: I reviewed the patient's lab results. No leukocytosis or anemia. No significant electrolyte abnormalities. Normal renal function. No significant abnormalities with liver enzymes 12/12/23 15:17 12/12/23 15:17 Labs: Lab Results 12/12/23 12/12/23 Range/Units 15:17 17:37 WBC 9.8 (4.8-10.8) X10*3/uL RBC 4.92 (4.20-5.50) X10*6/uL Hgb 15.3 (12.0-16.0) g/dl Hct 46.1 (37.0-47.0) % MCV 93.7 (80.0-98.0) fL MCH 31.1 (27.0-33.0) pg MCHC 33.2 (31.0-35.0) g/dl RDW 13.7 (11.0-16.0) % Plt Count 354 (160-400) X10*3/uL MPV 10.0 (9.4-12.3) fL Immature Gran % (Auto) 0.5 H (0.0-0.4) % Neut % (Auto) 79.5 H (45-73) % Lymph % (Auto) 11.3 L (20-40) % [place] % (Auto) 7.1 (2-11) % Eos % (Auto) 1.1 (0-4) % Baso % (Auto) 0.5 (0-2) % Lymph # (Auto) 1.1 L (1.2-4.9) X10*3/uL [place] # (Auto) 0.7 (0.1-1.2) X10*3/uL Eos # (Auto) 0.1 (0.0-0.4) X10*3/uL Baso # (Auto) 0.1 (0.0-0.2) X10*3/uL Abs Immat Gran (auto) 0.05 H (0.00-0.03) X10*3/uL Absolute Neuts (auto) 7.8 (2.0-8.3) x10*3/uL Absolute Nucleated RBC 0.000 (0.0-0.012) X10*3/uL Nucleated RBC % (auto) 0.0 (0.0-0.2) /100WBC Sodium 140 (135-145) mmol/L Potassium 4.1 (3.3-5.1) mmol/L Chloride 104 (96-108) mmol/L Carbon Dioxide 26 (22-29) mmol/L Anion Gap 14 (12-20) BUN 14 (9-16) mg/dL Creatinine 0.94 (0.5-1.4) mg/dL Estim Creat Clear Calc 76.2 Estimated GFR > 60 Random Glucose 125 H (60-115) mg/dL Calcium 10.5 H D (8.4-10.2) mg/dL Magnesium 2.0 (1.6-2.6) mg/dL Total Bilirubin 0.3 (0.0-1.0) mg/dL Direct Bilirubin 0.2 (0.0-0.5) mg/dL AST 16 (5-31) U/L ALT 17 (0-31) U/L Alkaline Phosphatase 105 (39-117) U/L Total Protein 8.1 H (6.5-8.0) g/dL Albumin 3.9 (3.5-5.0) g/dL Lipase 14 (8-78) U/L Beta HCG, Quant < 2 mIU/mL Urine Color Yellow Urine Appearance Hazy Urine pH 5.5 (5.0-9.0) Ur Specific [place] >= 1.030 H (1.005-1.025) Urine Protein 30 (1+) H (Neg-Trace) mg/dL Urine Glucose (UA) Negative (Negative) mg/dL Urine Ketones Trace (Negative) mg/dL Urine Blood Negative (Negative) Urine Nitrite Negative (Negative) Ur Leukocyte Esterase Negative (Negative) Urine RBC 0-2 (0-2) /HPF Urine WBC 0-5 (0-5) /HPF Ur Squamous Epith Cells >20 (0-2) /HPF Urine Bacteria 2+ (None Seen) Hyaline Casts 3-5 (0-2) /LPF Medications Administered Discontinued Medications Generic Name Dose Route Start Last Admin Trade Name Freq PRN Reason Stop Dose Admin Haloperidol Lactate 2.5 mg 12/12/23 20:14 12/12/23 21:03 Haloperidol Lactate 5 Mg/Ml Vial IVPUSH 12/12/23 20:15 2.5 mg STAT STA Administration Hydromorphone HCl 1 mg 12/12/23 17:25 12/12/23 17:41 Hydromorphone Hcl 1 Mg/Ml Syringe IVPUSH 12/12/23 17:26 1 mg ONCE ONE Administration Protocol Hydromorphone HCl 1 mg 12/12/23 19:27 12/12/23 19:38 Hydromorphone Hcl 1 Mg/Ml Syringe IVPUSH 12/12/23 19:28 1 mg ONCE ONE Administration Protocol Piperacillin Sod/Tazobactam 50 mls @ 100 mls/hr 12/12/23 20:15 12/12/23 21:08 Sod 3.375 gm/ Sodium Chloride IV 12/12/23 20:44 100 mls/hr ONCE ONE Administration Iohexol 100 ml 12/12/23 18:11 12/12/23 18:12 Iohexol 350 Mg/Ml 100 Ml Infus..Btl IV 12/12/23 18:12 85 ml ONCE ONE Administration Ondansetron HCl 4 mg 12/12/23 17:25 12/12/23 17:41 Ondansetron Hcl 4 Mg/2 Ml Vial IVPUSH 12/12/23 17:26 4 mg ONCE ONE Administration Discharge Plan Discharge Clinical Impression: Abdominal pain, Diverticulitis Patient Disposition: Home, Self-Care Instructions: Diverticulitis (ED) Additional Instructions: Your CT scan shows uncomplicated diverticulitis. Take Augmentin 3 times daily for 7 days. You may use morphine as needed for severe breakthrough pain. This may make you sleepy, did not drink alcohol or drive after taking it. You may use rectal nausea medicine if he was Zofran at home is not helping Drink lots of fluids Follow-up with your GI doctor Return for new or worsening symptoms Prescriptions: New promethazine 25 mg suppository 25 mg VA Q6H PRN (Reason: nausea and vomiting) Qty: 12 0RF amoxicillin-pot clavulanate 875-125 mg tablet 1 tab PO TID Qty: 21 0RF morphine 15 mg tablet 15 mg PO Q4-6H PRN (Reason: pain) Qty: 8 0RF Rx Instructions: Partial Fill upon patient request. No Action ondansetron 4 mg tablet,disintegrating 4 mg PO Q8H PRN (Reason: nausea and vomiting) Qty: 20 0RF clonidine HCl 0.1 mg tablet 0.1 mg PO TID PRN (Reason: for anxiety) Qty: 90 2RF sumatriptan succinate 50 mg tablet See Rx Instructions PO .COMPLEX Qty: 30 0RF Rx Instructions: take 1 tab at onset of headache; if no relief may repeat 1 tab after at least 2 hrs; max = 4 tabs/24 hr PO zolpidem 12.5 mg tablet,ext release multiphase 12.5 mg PO .COMPLEX 30 Days Qty: 15 1RF Rx Instructions: 12.5 mg orally every other day; lorazepam 0.5 mg tablet 1 mg PO BID 30 Days Qty: 120 0RF Rx Instructions: Take 1 mg ONE to TWO TIMES A DAY ONLY NEEDED for increased anxiety; tramadol 50 mg tablet 50 mg PO TID PRN (Reason: pain) 30 Days Qty: 90 0RF acetaminophen 325 mg Tablet 650 mg PO Q8H PRN (Reason: Pain, Mild (Pain Scale 1-3)) 30 Days 0RF budesonide 3 mg capsule,delayed,extend.release 9 mg PO DAILY mesalamine 500 mg capsule, extended release 500 mg PO QID Mirena 20 mcg/24 hours (6 yrs) 52 mg intrauterine device 1 device intrauterine ONCE omeprazole 20 mg capsule,delayed release(DR/EC) 40 mg PO DAILY duloxetine 30 mg capsule,delayed release(DR/EC) 30 mg PO BID Qty: 60 3RF diphenoxylate-atropine 2.5-0.025 mg tablet 1 - 2 tab PO Q6H PRN (Reason: Diarrhea) Entyvio 300 mg recon soln 300 mg IV Q4W Rx Instructions: administer over 30 mins dicyclomine 10 mg capsule 10 mg PO BID PRN (Reason: Gastrointestinal Spasms Or Cramping)
[2023-12-12 15:21] LABS: MANUAL DIFF FLAG NO
[2023-12-12 15:27] LABS: Basophils Absolute Auto 0.1 X10*3/uL (0.0-0.2); Basophils Percent Auto 0.5 % (0-2); Eosinophils Absolute Auto 0.1 X10*3/uL (0.0-0.4); Eosinophils Percent Auto 1.1 % (0-4); Hematocrit 46.1 % (37.0-47.0); Hemoglobin 15.3 g/dl (12.0-16.0); Imm Gran Abs Auto 0.05 X10*3/uL (0.00-0.03); Imm Gran Pct Auto 0.5 % (0.0-0.4); Lymphocytes Absolute Auto 1.1 X10*3/uL (1.2-4.9); Lymphocytes Percent Auto 11.3 % (20-40); Mean Corpuscular HGB Conc 33.2 g/dl (31.0-35.0); Mean Corpuscular Hemoglobin 31.1 pg (27.0-33.0); Mean Corpuscular Volume 93.7 fL (80.0-98.0); Monocytes Absolute Auto 0.7 X10*3/uL (0.1-1.2); Monocytes Percent Auto 7.1 % (2-11); Neutrophils Absolute Auto 7.8 x10*3/uL (2.0-8.3); Neutrophils Percent Auto 79.5 % (45-73); Platelet Count 354 X10*3/uL (160-400); Red Blood Count 4.92 X10*6/uL (4.20-5.50); Red Cell Distribution Width 13.7 % (11.0-16.0); White Blood Count 9.8 X10*3/uL (4.8-10.8)
[2023-12-12 15:55] LABS: HCG Quantitative < 2 mIU/mL
[2023-12-12 15:57] LABS: Anion Gap 14 (12-20)
[2023-12-12 16:00] VITALS: BP 138/64; PULSE 101; RESP 16; TEMP 36.7; O2SAT 97
[2023-12-12 16:09] LABS: Alanine Aminotransferase 17 U/L (0-31); Albumin Level 3.9 g/dL (3.5-5.0); Alkaline Phosphatase 105 U/L (39-117); Aspartate Amino Transferase 16 U/L (5-31); Bilirubin Direct 0.2 mg/dL (0.0-0.5); Bilirubin Total 0.3 mg/dL (0.0-1.0); Blood Urea Nitrogen 14 mg/dL (9-16); Calcium 10.5 mg/dL (8.4-10.2); Carbon Dioxide 26 mmol/L (22-29); Chloride 104 mmol/L (96-108); Creatinine Clr Calc Pharmacy 76.2; Estimated Glomerular Filt Rate > 60; Glucose Random 125 mg/dL (60-115); Lipase 14 U/L (8-78); Potassium 4.1 mmol/L (3.3-5.1); Sodium 140 mmol/L (135-145); Total Protein 8.1 g/dL (6.5-8.0)
[2023-12-12] MEDS: HYDROmorphone HCl 1 MG/ML SYRINGE IVPUSH ×2 (17:41→19:38)
[2023-12-12] MEDS: ondansetron HCL 4 MG/2 ML VIAL IVPUSH (17:41)
--- NOTE | 2023-12-12 17:43 | PC.NURSE ---
IV access obtained,medicated per MAR by this float RN, awaiting CT scan, aware of plan of care.
[2023-12-12 17:49] LABS: Appearance Urine Hazy; Color Urine Yellow; Glucose Urine UA Negative (Negative); Leukocyte Esterase Urine Negative (Negative); Nitrite Urine Negative (Negative); PH 5.5 (5.0-9.0); Specific Gravity - Urine >= 1.030 (1.005-1.025); UMIC TRIGGER UACC YES; Urine Blood Negative (Negative); Urine Ketones Trace mg/dL (Negative); Urine Protein 30 (1+) mg/dL (Neg-Trace)
[2023-12-12 17:51] LABS: Bacteria Urine 2+ (None Seen); RBC Urine 0-2 /HPF (0-2); Squamous Epithelial Cell Urine >20 /HPF (0-2); UACC Culture Trigger YES
[2023-12-12 17:59] LABS: WBC Urine 0-5 /HPF (0-5)
[2023-12-12] MEDS: iohexoL 350 MG/ML 100 ML INFUS..BTL IV (18:12)
[2023-12-12 18:58] VITALS: BP 139/82; PULSE 83; RESP 18; TEMP 36.8; O2SAT 97
[2023-12-12 20:54] VITALS: BP 136/62; PULSE 91; RESP 16; TEMP 36.6; O2SAT 98
--- NOTE | 2023-12-12 20:55 | MHC.EDTECH ---
Patient ekg taken and was read by provider ,patient was hooked up to cardiac tech ,vitals taken ,Call well within Pt reach .
[2023-12-12] MEDS: Haloperidol Lactate 5 MG/ML VIAL 2.5 MG IVPUSH (21:03)
[2023-12-12] MEDS: Piperacillin Sodium/Tazobactam 3.375 GM in 0.9 % Sodium Chloride 50 ML IV (21:08)
[2023-12-12 22:14] VITALS: BP 99/76; PULSE 105; RESP 16; TEMP 36.6; O2SAT 97
== END 2023-12-12 22:15 | disposition home or self-care (01) ==
PROVIDERS: Physician Assistant Medical; Emergency Provider Emergency Medicine; PCP Internal Medicine
DX: K57.32 Diverticulitis of large intestine without perforation or abscess without bleeding (principal); R10.32 Left lower quadrant pain; K59.00 Constipation, unspecified; R94.31 Abnormal electrocardiogram [ECG] [EKG]; R11.0 Nausea; K92.1 Melena; Z87.891 Personal history of nicotine dependence; Z79.899 Other long term (current) drug therapy
CPT/HCPCS: 36415; 74177; 80048; 80076; 81001; 83690; 83735; 84702; 85025; 87086; 93005; 96374; 96375; 96376; 99284; 99285; J1170; J1630; J2405; J2543; Q9967

== ENCOUNTER 2024-01-02 13:27 | Outpatient (REF) | payer OTHER, SELFPAY | END 2024-01-02 13:28 | disposition home or self-care (01) | LOC: HO.MDS 13:27 | PROVIDERS: Visit Provider Internal Medicine | DX: K50.90 Crohn's disease, unspecified, without complications (principal); K52.9 Noninfective gastroenteritis and colitis, unspecified | CPT/HCPCS: 96365; 96375; J1200; J2405; J3380 ==

== ENCOUNTER 2024-01-16 11:19 | Outpatient (AMB) | payer OTHER, SELFPAY ==
[2024-01-16 11:36] VITALS: BP 110/74; BMI 27.7
--- NOTE | 2024-01-16 11:36 | MHC.PC.OV ---
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: No Accompanied by: Self / Same As Patient Allergies meperidine [From Demerol] Allergy (Severe, Verified 01/16/24 11:38) SWELLING,RASH,THROAT CLOSES latex [LATEX] Allergy (Mild, Verified 01/16/24 11:38) RASH codeine [Codeine] Adverse Reaction (Intermediate, Verified 01/16/24 11:38) NAUSEA/VOMITING, GI upset/vomiting duloxetine Adverse Reaction (Intermediate, Verified 01/16/24 12:19) headaches trazodone Adverse Reaction (Mild, Verified 01/16/24 11:38) Anxiety Fish Containing Products [Fish Product Derivatives] Adverse Reaction (Unknown, Verified 01/16/24 11:38) NAUSEA/VOMITING bupropion Adverse Reaction (Intermediate, Uncoded 01/16/24 11:38) increased headaches Medication List - Last Reconciled 01/16/24 by Jaswant Frank MD acetaminophen 650 mg (2 x 325 mg) PO Q8H PRN 30 days budesonide ER 9 mg PO DAILY clonidine HCl 0.1 mg PO TID PRN dicyclomine 10 mg PO BID PRN diphenoxylate-atropine 2.5-0.025 mg 1 - 2 tabs PO Q6H PRN levonorgestrel (Mirena) 1 device intrauterine ONCE lorazepam 1 mg PO TID 30 days mesalamine ER 500 mg PO QID omeprazole 40 mg PO DAILY ondansetron 4 mg PO Q8H PRN promethazine 25 mg [place] Q6H PRN sumatriptan succinate take 1 tab at onset of headache; if no relief may repeat 1 tab after at least 2 hrs; max = 4 tabs/24 hr PO tramadol 50 mg PO TID PRN 30 days vedolizumab (Entyvio) 300 mg IV Q4W zolpidem ER 12.5 mg orally every other day; 30 days Tobacco use date assessed: 01/16/24 Dental Screening Dental Screen Date: 01/16/24 Did you have a dental visit in the last 12 months?: Yes Did you have a dental problem in the last 6 months where you did not have access to dental care?: No Was dental information given to patient?: Patient has dentist HPI mood disorder/anxiety, Crohn's HPI Details Patient comes in today for her follow up visit States that she currently feels okay She denies any headaches or dizziness Denies any chest pains, no SOB No nausea/vomiting, no increased abdominal pain and no change in bowel habits noted - feels that her Crohn's disease has been doing better on Entyvio and she continues to follow up with Dr. Alexis for her GI issues [facility] Medical History Postcoital bleeding Urinary incontinence in female Major depression, recurrent, chronic Furuncle Diverticulitis Obesity (BMI 30-39.9) Crohn's colitis Crohns disease of small intestine Crohn's colitis Intractable nausea and vomiting Migraine History of renal cell cancer (~2014) Osteoarthritis of hips, bilateral Depression Crohn's disease Lumbar degenerative disc disease Insomnia Anxiety 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 Surgical History Hx of colonoscopy History of esophagogastroduodenoscopy (EGD) History of removal of calculus of renal pelvis through percutaneous nephrostomy (~10/2015) History of cryosurgery (~04/20/15) History of intestinal surgery History of arthroplasty (~01/2012) Family History Father Crohn disease Migraine Cancer Mother HTN (hypertension) Vertigo Cervical cancer Maternal Grandmother HTN (hypertension) Hyperlipidemia Diabetes mellitus Paternal Grandmother Diabetes mellitus Other Mental health problem Social History Household Members: Family and Children Housing: House Do you presently have visiting nurse or other home services: No Alcohol intake: never Patient Tobacco Use Status: Former Tobacco user Tobacco use type: Cigarette e-Cigarette/Vaping Use: Former Use Second Hand Smoke Exposure: No Advance Directives Date on File: 06/15/22 service: No Current occupational status: unemployed Gender identity: Female Cognitive needs: No Hearing needs: No Vision needs: Yes (glasses) Female Reproductive History Menstrual Age of Menarche: 12 Questionnaire PHQ-9 Over the last 2 weeks, how often have you been bothered by any of the following problems? 1. Little interest or pleasure in doing things: several days 2. Feeling down, depressed, or hopeless: several days 3. Trouble falling or staying asleep, or sleeping too much: several days 4. Feeling tired or having little energy: several days 5. Poor appetite or overeating: several days 6. Feeling bad about yourself - or that you are a failure or have let yourself or your family down: several days 7. Trouble concentrating on things, such as reading the newspaper or watching television: not at all 8. Moving or speaking so slowly that other people could have noticed. Or the opposite - being so fidgety or restless that you have been moving around a lot more than usual: not at all 9. Thoughts that you would be better off or of hurting yourself in some way: not at all Total score: 6 Depression Screening Interpretation: Positive Depression Screening Follow-up: Existing condition, In treatment and Community Mental Health Worker F/U Depression Screening Done: Yes [id number] - PHQ-9 Billing: Yes Source: Developed by Drs. Matthew Hernandez, Starr Jiménez, Billy Somers and colleagues, with an educational paxton from [employer]. Thrive Questionnaire Date Thrive assessed: 01/16/24 I am a: Patient What is your living situation today?: I have a steady place to live Within the past 12 months, did the food you bought not last and you didn't have the money to get more?: Never true Within the past 12 months, did you worry whether your food would run out before you got money to buy more?: Never true Do you have trouble paying for medicines?: No Do you have trouble getting transportation to medical appointments?: No Do you have trouble paying your heating and electricity bill?: No Do you have trouble taking care of your child, family member or friend?: No Do you have trouble with day-to-day activities such as bathing, preparing meals, shopping, managing finances, etc.?: No Are you currently unemployed and looking for a job?: No Are you interested in more education?: No Please select the resources that you would like help with: None Currently or been in a relationship where the following occur: no concerns reported THRIVE Score: 0 AUDIT C Alcohol Use Questionnaire (AUDIT-C) 1. How often do you have a drink containing alcohol?: Monthly or less 2. How many drinks containing alcohol do you have on a typical day when you are drinking?: 1 or 2 3. How often do you have six or more drinks on one occasion?: Never Total Score: 1 Score Reviewed/Action Taken: Yes MONTSE-7 AMB Questionnaire MONTSE-7 Date MONTSE - 7 assessed: 01/16/24 Feeling nervous, anxious, or on edge: 2 = More than half the days Not being able to stop or control worryin = Nearly every day Worrying too much about different things: 3 = Nearly every day Trouble relaxin = Nearly every day Being so restless that it is hard to sit still: 2 = More than half the days Becoming easily annoyed or irritable: 1 = Several days Feeling afraid as if something awful might happen: 0 = Not at all Total MONTSE-7 score (0-4 normal; 5-9 mild; 10-14 moderate; 15-21 severe): 14 Source: Developed by Drs. Matthew Hernandez, Starr Jiménez, Billy Somers and colleagues, with an educational paxton from [employer]. Review of Systems Const Denies chills, Reports difficulty sleeping, Reports fatigue, Denies fever(s) and Reports headache(s) (on and off but better controlled again lately) ENT Denies dizziness, Denies otalgia, Reports headache(s) (on and off but better controlled again lately), Denies neck pain, Denies odynophagia and Denies sore throat Card Denies chest pain, Denies palpitations and Denies dyspnea Resp Denies chest congestion, Denies cough, Denies dyspnea and Denies wheezing GI Reports abdominal pain (intermittent, cramping pain over the lower abdomen), Denies hematochezia, Reports constipation (on and off), Denies heartburn, Reports diarrhea (intermittent, alternating with constipation), Reports nausea (on and off - better lately), Denies odynophagia and Denies vomiting Denies difficulty voiding, Denies nocturia and Denies dysuria Musc Denies back pain and Denies neck pain Skin/Breast Denies rash Neuro Denies dizziness and Reports headache(s) (on and off but better controlled again lately) Psych Reports anxiety and Reports depression Endo Reports fatigue and Denies palpitations Aller/Immun Denies wheezing Physical exam (Primary Care) Vital Signs: Last Vital Signs BP 110/74 01/16/24 11:36 Oxygen Delivery Method Room Air 01/16/24 11:36 BMI result Body Mass Index 27.7 Tobacco/Smoking Status: Tobacco use Status Tobacco use date assessed 01/16/24 01/16/24 11:45 Patient Tobacco Use Status Former Tobacco user 01/16/24 11:37 Tobacco use type Cigarette 01/16/24 11:37 e-Cigarette/Vaping Use Former Use 01/16/24 11:37 PHQ-9: PHQ-9 Score PHQ-9: Total score 6 01/16/24 12:23 Depression Screening Interpretation: Positive Depression Screening Follow-up: Existing condition, In treatment and Community Mental Health Worker F/U Thrive Assessment: Date of Thrive Assessment Date Thrive assessed 01/16/24 01/16/24 11:45 Currently or been in a relationship where the following occur: no concerns reported Const General: no acute distress and alert HENMT Throat: Yes posterior oropharynx normal and Yes tonsils normal (no TP congestion noted) Neck Neck: Yes no lymphadenopathy and Yes supple Resp Auscultation: clear to auscultation bilaterally, no rales and no wheezes Cardio Rate: regular rate Rhythm: regular rhythm Heart sounds: no murmurs GI Palpation (GI): Soft to palpation, Tenderness to palpation present (GI) ((+) minimal diffuse lower abdominal discomfort), no guarding, not rigid and No Rebound tenderness present Auscultation: normal bowel sounds Back/Spine/Pelvis Thoracic/Lumbar Spine: lumbar spinal tenderness Extrem General: Yes no clubbing, cyanosis or edema Assessment and Plan Assessment & Plan (1) Crohn disease: Code(s): K50.90 - Crohn's disease, unspecified, without complications Qualifiers: Digestive disease complication type: unspecified complication Gastrointestinal tract location: unspecified location Qualified Code(s): K50.919 - Crohn's disease, unspecified, with unspecified complications Plan: Continue Entyvio 300 mg SQ every 6 to 8 weeks, Mesalamine ER 1000 mg QID and Budesonide ER 3 mg 3 capsules (900 mg) QD Her abdominal MRI done a couple of months ago revealed (+) mild improvement in the transmural wall thickening at the terminal ileum, suggesting some improvement Follow up with GI (Dr. Alexis) as scheduled (2) Lumbar degenerative disc disease: Code(s): M51.36 - Other intervertebral disc degeneration, lumbar region Plan: Reinforced activity and weight-lifting restrictions Continue Tramadol 50 mg TID PRN for pain (3) Migraine: Code(s): G43.909 - Migraine, unspecified, not intractable, without status migrainosus Qualifiers: Migraine type: unspecified Status migrainosus presence: without status migrainosus Intractability: not intractable Qualified Code(s): G43.909 - Migraine, unspecified, not intractable, without status migrainosus Plan: Continue Sumatriptan 50 mg PRN for headaches Continue Excedrin PRN and Ondansetron PRN for nausea/vomiting Topiramate (for LUNDBERG prophylaxis) was discontinued previously due to its potential interactions with Mirena; patient reports experiencing frequent headaches since Patient also relates experiencing a significant increase in her headaches when she was started on Bupropion XL and Buspirone a couple of months ago - headaches have subsided since she was instructed to STOP taking them If headaches get worse or progress, will consider referring her back to neurology for consultation (4) Impaired fasting glucose: Code(s): R73.01 - Impaired fasting glucose Plan: FBS was elevated on her recent labs done a few months ago - was most likely due to the effects of Prednisone, which she has been off (completed Tx) for a while now In-office HgbA1c was normal at 5.6% when previously checked Will continue to monitor her blood sugar closely Reinforced again low calorie/low carb diet to help control her blood sugar better (5) Insomnia: Code(s): G47.00 - Insomnia, unspecified Qualifiers: Insomnia type: unspecified Qualified Code(s): G47.00 - Insomnia, unspecified Plan: Sleep hygiene reinforced Continue Zolpidem CR 12.5 mg Q HS Has been checked out and advised by Sleep Medicine that she does NOT have FAISAL Was recently tried on Belsomra, which she felt was helping with her sleep but this was denied by her insurance Follow up with Sleep Medicine as scheduled (6) Anxiety: Code(s): F41.9 - Anxiety disorder, unspecified Plan: Advised again to continue following up with her current therapist ([facility]) regularly/weekly; was also seen by a psychiatrist previously but was advised at the time that she can continue seeing her therapist weekly and does not need to see psychiatry regularly but patient is instructed to talk to her therapist about getting her back in to see psychiatry [facility] given her recent issues Continue Lorazepam 1 mg BID PRN She was previously on Escitalopram 10 mg QD but she self-discontinued this a few months ago and her anxiety and depression got worse afterwards She was started on Wellbutrin XL 150 mg Q AM and Buspirone 7.5 mg BID a couple of months ago but was instructed to stop taking them when she reported experiencing increased and frequent headaches while on the Rx (7) Major depression, recurrent, chronic: Code(s): F33.9 - Major depressive disorder, recurrent, unspecified Plan: Increased since she stopped taking her Escitalopram a few months ago Could not tolerate Wellbutrin XL 150 mg Q AM and Buspirone due to increased headaches She was also trialed on Duloxetine 30 mg Q HS at her last visit but she reports that her headaches also got worse in the Rx and she stopped taking it immediately She is reminded to continue following up with her therapist regularly and to request seeing psychiatry again for a new consultation given her increasing depression and anxiety (8) Obesity (BMI 30-39.9): Code(s): E66.9 - Obesity, unspecified Plan: Reinforced diet/exercise as tolerated/lose weight Plan Follow up in 4 months Coding Level of Care Code Est Pt Level 4 (11500) Diagnoses Crohn's disease with complication, unspecified gastrointestinal tract location K50.919 Digestive disease complication type: unspecified complication Gastrointestinal tract location: unspecified location Lumbar degenerative disc disease M51.36 Migraine without status migrainosus, not intractable, unspecified migraine type G43.909 Migraine type: unspecified Status migrainosus presence: without status migrainosus Intractability: not intractable Impaired fasting glucose R73.01 Insomnia, unspecified type G47.00 Insomnia type: unspecified Anxiety F41.9 Major depression, recurrent, chronic F33.9 Obesity (BMI 30-39.9) E66.9
== END 2024-01-16 12:27 | disposition home or self-care (01) ==
PROVIDERS: PCP Internal Medicine; Visit Provider Internal Medicine
DX: K50.919 Crohn's disease, unspecified, with unspecified complications (principal); F33.9 Major depressive disorder, recurrent, unspecified; M51.36 Other intervertebral disc degeneration, lumbar region; G43.909 Migraine, unspecified, not intractable, without status migrainosus; E66.9 Obesity, unspecified; Z68.27 Body mass index [BMI] 27.0-27.9, adult; R73.01 Impaired fasting glucose; G47.00 Insomnia, unspecified; F41.9 Anxiety disorder, unspecified
CPT/HCPCS: 99214

== ENCOUNTER 2024-01-17 10:06 | Outpatient (REF) | payer OTHER, SELFPAY ==
--- NOTE | ~2024-01-17 | US_ITS ---
EXAMINATION: US RETROPERITONEAL COMPLETE (RENAL) CLINICAL INFORMATION: Coital incontinence. COMPARISON: CT abdomen and pelvis 12/12/2023. MRI abdomen and pelvis 11/19/2023. X-ray abdomen 02/15/2023. X-ray KUB 03/02/2022. Ultrasound abdomen complete 08/01/2017. Ultrasound kidneys and bladder 05/29/2016. TECHNIQUE: Real-time imaging of the kidneys and bladder. FINDINGS: RIGHT KIDNEY: 11.0 x 5.7 x 5.3 cm (SAG x AP x TRV). The kidney is normal in size, contour, and echogenicity. Renal cortical thickness is normal. No calculi or focal parenchymal lesions. No hydronephrosis. Small cyst seen on the previous CT scan or MRI is not shown on ultrasound LEFT KIDNEY: 11.4 x 5.2 x 4.4 cm (SAG x AP x TRV). The kidney is normal in size, contour, and echogenicity. Renal cortical thickness is normal. No focal parenchymal lesions or hydronephrosis. There is nonobstructing calculus in interpolar area measuring 0.2 cm BLADDER: Well distended and normal. Bilateral ureteral jets are demonstrated. Prevoid bladder volume is 232 mL. Postvoid bladder volume is 14.0 mL. US/US retroperitoneal comp IMPRESSION: Nonobstructing 0.2 cm calculus in the left kidney. Nonvisualization of cysts
== END 2024-01-17 10:07 | disposition home or self-care (01) ==
LOC: HO.US 10:06
PROVIDERS: PCP Internal Medicine; Visit Provider Nurse Practitioner Family
DX: N00-N99 Diseases of the genitourinary system (principal)
CPT/HCPCS: 76770

== ENCOUNTER 2024-01-30 10:01 | Outpatient (REF) | payer OTHER, SELFPAY ==
[2024-01-30 10:04] VITALS: BP 136/76; PULSE 89; RESP 18; TEMP 36.9
[2024-01-30] MEDS: LORazepam 0.5 MG TABLET PO ×2 (10:10→10:48)
[2024-01-30] MEDS: Acetaminophen 325 MG TABLET 975 MG PO (10:10)
[2024-01-30] MEDS: diphenhydrAMINE HCL 50 MG/ML VIAL 25 MG IVPUSH (10:28)
[2024-01-30] MEDS: Vedolizumab 300 MG in 0.9 % Sodium Chloride 250 ML 510 MG IV (11:20)
== END 2024-01-30 10:02 | disposition home or self-care (01) ==
LOC: HO.MDS 10:01
PROVIDERS: Visit Provider Internal Medicine
DX: K50.90 Crohn's disease, unspecified, without complications (principal)
CPT/HCPCS: 96365; 96375; J1200; J3380

== ENCOUNTER 2024-01-31 10:24 | Outpatient (AMB) | payer OTHER, SELFPAY ==
--- NOTE | 2024-01-31 10:33 | A.OFFVIS_ITS ---
Intake Intake Visit Reasons: 3 month follow up/ US(set) Intake Note: Patient presents today for a follow-up on U/S Meds- None Allergies to Antibiotic- No Known Allergies Blood Thinner- None Post Void Residual: 0ml Family Preservation Worker Required: No Accompanied by: Self / Same As Patient Allergies meperidine [From Demerol] Allergy (Severe, Verified 01/31/24 11:15) SWELLING,RASH,THROAT CLOSES latex [LATEX] Allergy (Mild, Verified 01/31/24 11:15) RASH codeine [Codeine] Adverse Reaction (Intermediate, Verified 01/31/24 11:15) NAUSEA/VOMITING, GI upset/vomiting duloxetine Adverse Reaction (Intermediate, Verified 01/31/24 11:15) headaches trazodone Adverse Reaction (Mild, Verified 01/31/24 11:15) Anxiety Fish Containing Products [Fish Product Derivatives] Adverse Reaction (Unknown, Verified 01/31/24 11:15) NAUSEA/VOMITING bupropion Adverse Reaction (Intermediate, Uncoded 01/31/24 11:15) increased headaches Medication List - Last Reconciled 01/31/24 by STEPHANIE Mir acetaminophen 650 mg (2 x 325 mg) PO Q8H PRN 30 days budesonide ER 9 mg PO DAILY clonidine HCl 0.1 mg PO TID PRN dicyclomine 10 mg PO BID PRN diphenoxylate-atropine 2.5-0.025 mg 1 - 2 tabs PO Q6H PRN levonorgestrel (Mirena) 1 device intrauterine ONCE lorazepam 1 mg PO TID 30 days mesalamine ER 500 mg PO QID omeprazole 40 mg PO DAILY ondansetron 4 mg PO Q8H PRN promethazine 25 mg [place] Q6H PRN sumatriptan succinate take 1 tab at onset of headache; if no relief may repeat 1 tab after at least 2 hrs; max = 4 tabs/24 hr PO tramadol 50 mg PO TID PRN 30 days vedolizumab (Entyvio) 300 mg IV Q4W zolpidem ER 12.5 mg orally every other day; 30 days HPI HPI Comments History of Present Illness Details Gabi is a very pleasant 48-year-old female patient of Dr. Frank. She has a PMH of depression, diverticulitis, obesity, Crohn's disease, migraines, renal cell cancer, osteoarthritis, depression, insomnia, and anxiety. She presents to the office today for follow-up. Of note, patient was seen approximately 3 months ago as a new patient for coital incontinence at which time a retroperitoneal ultrasound was ordered and recommendations were made for pelvic floor therapy. Recent retroperitoneal ultrasound results reviewed with the patient today. Bilateral kidneys with no hydronephrosis and or lesions. There is a nonobstructing 2 mm interpolar left calculi. The bladder is well distended and normal. Bilateral ureteral jets are demonstrated. Pre void bladder volume is approximately 230 mL. Postvoid bladder volume is approximately 15 mL. In discussion with the patient today she reports noting improvement in coital incontinence since performing pelvic floor exercises at home. She does continue with stress urinary incontinence in discusses not having received a call from pelvic floor therapy as of yet. She otherwise denies any bothersome urinary issues. She denies urinary urgency, urinary frequency, nocturia, hematuria, dysuria, foul smelling urine, changes to urinary stream, flank pain, fever, and or chills. In office urinalysis results reviewed with the patient today. Discussed at length potential causes of stress incontinence. She otherwise denies any other issues or concerns at this time. [facility] Medical History (Updated 01/31/24 @ 11:37 by Anne Lopez [facility]) Renal calculus, bilateral Postcoital bleeding Major depression, recurrent, chronic Furuncle Diverticulitis Obesity (BMI 30-39.9) Crohn's colitis Crohns disease of small intestine Crohn's colitis Intractable nausea and vomiting Migraine History of renal cell cancer (~2014) Osteoarthritis of hips, bilateral Depression Crohn's disease Lumbar degenerative disc disease Insomnia Anxiety 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 Surgical History Hx of colonoscopy History of esophagogastroduodenoscopy (EGD) History of removal of calculus of renal pelvis through percutaneous nephrostomy (~10/2015) History of cryosurgery (~04/20/15) History of intestinal surgery History of arthroplasty (~01/2012) Family History Father Crohn disease Migraine Cancer Mother HTN (hypertension) Vertigo Cervical cancer Maternal Grandmother HTN (hypertension) Hyperlipidemia Diabetes mellitus Paternal Grandmother Diabetes mellitus Other Mental health problem Social History Household Members: Family and Children Housing: House Do you presently have visiting nurse or other home services: No Alcohol intake: never Patient Tobacco Use Status: Former Tobacco user Tobacco use type: Cigarette e-Cigarette/Vaping Use: Former Use Second Hand Smoke Exposure: No Advance Directives Date on File: 06/15/22 service: No Current occupational status: unemployed Gender identity: Female Cognitive needs: No Hearing needs: No Vision needs: Yes (glasses) Female Reproductive History Menstrual Age of Menarche: 12 Review of Systems Const Reports as per HPI Eyes Reports no additional complaints ENT Reports no additional complaints Card Reports as per HPI Resp Reports no additional complaints GI Reports as per HPI Reports as per HPI Musc Reports as per HPI Neuro Reports no additional complaints Psych Reports as per HPI Endo Reports no additional complaints Physical Exam Const General: cooperative, healthy appearing, comfortable, no acute distress, well developed, alert and awake Nutritional Appearance: overweight Orientation/consciousness: patient oriented x3 Limitations: no limitations HEENT Head: Yes normal to inspection, Yes normocephalic and Yes atraumatic Ears: hearing grossly normal bilaterally Eyes General: appearance normal, both eyes and all related structures Neck Neck: Yes normal visual inspection and Yes trachea midline Chest Chest palpation & inspection: normal inspection of the chest Resp Effort & Inspection: normal respiratory effort and able to speak in complete sentences Cardio Rate: regular rate GI Inspection: Yes normal to inspection General: Yes no CVA tenderness Back/Spine/Pelvis Back: no CVA tenderness Skin General skin exam: no rashes or lesions noted Neuro General: patient oriented x3 Extrem General: Yes normal to inspection Psych Appearance: grossly normal and well kempt Mental Status: mental status grossly normal Speech and movement: Normal speech and movement present and Clear speech present Affect: normal affect Attitude: cooperative Thought process: Normal thought process present Thought content: Normal thought content present Insight: Fair insight present (Psych) Judgement: Fair judgement present (Psych) Office Procedures Post Void Residual Post Residual Void Post Void Residual (PVR): 0 [id number] Void Residual by ultrasound Results AMB Urinalysis, Automated UA Leukoctes 15 Rajni/uL [facility] Edit [facility] on 01/31/24 10:49 UA Nitrite Negative Last Edit by [facility] on 01/31/24 10: 49 UA Urobilinogen 0.2 mg/dL Last Edit by [facility] on 4 10:49 UA Protein 30 mg/dL Last Edit by [facility] on 01/31/24 10:4 9 UA pH 6.0 Last Edit by [facility], [facility] on 01/31/24 10:49 UA Blood 0 Ernie/uL Last Edit by [facility] on 01/31/24 10:49 UA Specific [place] 1.030 Last Edit by [facility] on 10:49 UA Ketone Negative Last Edit by [facility] on 01/31/24 10:4 9 UA Bilirubin 1 mg/dL Last Edit by [facility] on 01/31/24 10: 49 UA Glucose 0 mg/dL Last Edit by [facility] on 01/31/24 10:49 Results Reviewed Results Reviewed: Laboratory Last Values Urine pH (Auto) 6.0 01/31/24 10:48 Specific [place] (Auto) 1.030 01/31/24 10:48 Urine Protein (Auto) 30 mg/dL 01/31/24 10:48 Glucose (UA)(Auto) 0 mg/dL 01/31/24 10:48 Urine Ketones (Auto) Negative 01/31/24 10:48 Urine Blood (Auto) 0 Ernie/uL 01/31/24 10:48 Urine Nitrite (Auto) Negative 01/31/24 10:48 Urine Bilirubin (Auto) 1 mg/dL 01/31/24 10:48 Urine Urobilinogen (Auto) 0.2 mg/dL 01/31/24 10:48 Leukocyte Esterase (Auto) 15 Rajni/uL 01/31/24 10:48 Date of Service: 01/17/24 EXAMINATION: US RETROPERITONEAL COMPLETE (RENAL) FINDINGS: RIGHT KIDNEY: 11.0 x 5.7 x 5.3 cm (SAG x AP x TRV). The kidney is normal in size, contour, and echogenicity. Renal cortical thickness is normal. No calculi or focal parenchymal lesions. No hydronephrosis. Small cyst seen on the previous CT scan or MRI is not shown on ultrasound LEFT KIDNEY: 11.4 x 5.2 x 4.4 cm (SAG x AP x TRV). The kidney is normal in size, contour, and echogenicity. Renal cortical thickness is normal. No focal parenchymal lesions or hydronephrosis. There is nonobstructing calculus in interpolar area measuring 0.2 cm BLADDER: Well distended and normal. Bilateral ureteral jets are demonstrated. Prevoid bladder volume is 232 mL. Postvoid bladder volume is 14.0 mL. IMPRESSION: Nonobstructing 0.2 cm calculus in the left kidney. Nonvisualization of cysts Assessment & Plan Assessment & Plan (1) Nephrolithiasis: Code(s): N20.0 - Calculus of kidney (2) Coital incontinence: Code(s): N39.491 - Coital incontinence (3) Stress incontinence: Code(s): N39.3 - Stress incontinence (female) (male) Plan In office urinalysis results reviewed with the patient today; as noted above. Recent retroperitoneal ultrasound results reviewed with the patient today; as noted above. Information provided for pelvic floor therapy Continue pelvic floor therapy exercises at home as discussed. Discussed at length potential causes of nephrolithiasis, coital incontinence, and stress incontinence. Discussed, educated, and stressed the importance of drinking plenty of water daily. Discussed adding 1 oz of lemon juice to water daily. Renal ultrasound in 6 months. Follow-up in 6 months with imaging to be completed prior; or sooner with any issues, concerns, and or questions. Orders: Orders AMB Post Void Residual by ultrasound Today R33.9 - Retention of urine, unspecified AMB Urinalysis Automated Today R33.9 - Retention of urine, unspecified Patient Instructions: The patient had an opportunity to ask questions regarding the treatment plan. All questions were answered. Physical exam, labs, and imaging were discussed and reviewed in detail. As well as risks, benefits, and discussion of treatment choices. No major barriers to understanding were identified. The patient expressed understanding and agreement with the above treatment plan. The patient was made aware they should contact our office by phone for worsening of their current condition, the appearance of new symptoms, or with any questions or concerns. Compliance is encouraged with any medications and follow up testing that is ordered. It is a privilege to be allowed the opportunity to participate in? your urological care.? Again, if you have any questions or concerns If you have any questions or concerns please do not hesitate to contact me. The office is [phone]. This note is constructed using voice recognition software. While every effort has been made to ensure accuracy pullman conductor errors may have been included. Yours sincerely, STEPHANIE Mir Coding Level of Care Code Est Pt Level 3 (51304) Diagnoses Nephrolithiasis N20.0 Coital incontinence N39.491 Stress incontinence N39.3 CPT Codes Post Residual Void - PVR CPT Code: [id number] Void Residual by ultrasound ([id number])
== END 2024-01-31 11:14 | disposition home or self-care (01) ==
PROVIDERS: PCP Internal Medicine; Visit Provider Nurse Practitioner Family
DX: N20.0 Calculus of kidney (principal); N00-N99 Diseases of the genitourinary system; N39.3 Stress incontinence (female) (male); R33.9 Retention of urine, unspecified
CPT/HCPCS: 99213

== ENCOUNTER → 2024-01-31 10:24 | Outpatient (BNVA) | payer OTHER, SELFPAY | PROVIDERS: PCP Internal Medicine; Visit Provider Nurse Practitioner Family | DX: N00-N99 Diseases of the genitourinary system (principal); N39.3 Stress incontinence (female) (male); N20.0 Calculus of kidney; R33.9 Retention of urine, unspecified | CPT/HCPCS: 51798; 81003; 99212 ==

== ENCOUNTER 2024-02-20 08:42 | Outpatient (AMB) | payer OTHER, SELFPAY ==
[2024-02-20 08:45] VITALS: BP 124/72; BMI 27.5
--- NOTE | 2024-02-20 08:45 | A.OFFVIS_ITS ---
Intake Vital Signs 02/20/24 08:45 Height 5 ft 5 in Weight 165 lb 5.547 oz BMI 27.5 BP 124/72 Blood Pressure Location Lt brachial Position Sitting Intake Visit Reasons: Colpo/DO NOT RS Information Interpreted: non-clinical & clinical Proof Technician Helper: Proof Technician Helper Present Accompanied by: Self / Same As Patient Allergies meperidine [From Demerol] Allergy (Severe, Verified 02/20/24 08:53) SWELLING,RASH,THROAT CLOSES latex [LATEX] Allergy (Mild, Verified 02/20/24 08:53) RASH codeine [Codeine] Adverse Reaction (Intermediate, Verified 02/20/24 08:53) NAUSEA/VOMITING, GI upset/vomiting duloxetine Adverse Reaction (Intermediate, Verified 02/20/24 08:53) headaches trazodone Adverse Reaction (Mild, Verified 02/20/24 08:53) Anxiety Fish Containing Products [Fish Product Derivatives] Adverse Reaction (Unknown, Verified 02/20/24 08:53) NAUSEA/VOMITING bupropion Adverse Reaction (Intermediate, Uncoded 02/20/24 08:53) increased headaches HPI HPI Comments History of Present Illness Details presenting referred from Valentine Concepcion CNM in regarding ascus/ HPV E6 E7 positive; in addition,Pap smear showed Few small foci of actinomyces identified PFSH Medical History Renal calculus, bilateral Postcoital bleeding Major depression, recurrent, chronic Furuncle Diverticulitis Obesity (BMI 30-39.9) Crohn's colitis Crohns disease of small intestine Crohn's colitis Intractable nausea and vomiting Migraine History of renal cell cancer (~2014) Osteoarthritis of hips, bilateral Depression Crohn's disease Lumbar degenerative disc disease Insomnia Anxiety 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 Surgical History Hx of colonoscopy History of esophagogastroduodenoscopy (EGD) History of removal of calculus of renal pelvis through percutaneous nephrostomy (~10/2015) History of cryosurgery (~04/20/15) History of intestinal surgery History of arthroplasty (~01/2012) Family History Father Crohn disease Migraine Cancer Mother HTN (hypertension) Vertigo Cervical cancer Maternal Grandmother HTN (hypertension) Hyperlipidemia Diabetes mellitus Paternal Grandmother Diabetes mellitus Other Mental health problem Social History Household Members: Family and Children Housing: House Do you presently have visiting nurse or other home services: No Alcohol intake: never Patient Tobacco Use Status: Former Tobacco user Tobacco use type: Cigarette e-Cigarette/Vaping Use: Former Use Second Hand Smoke Exposure: No Advance Directives Date on File: 06/15/22 service: No Current occupational status: unemployed Gender identity: Female Cognitive needs: No Hearing needs: No Vision needs: Yes (glasses) Female Reproductive History Menstrual Age of Menarche: 12 Physical Exam Vital Signs: Last Vital Signs BP 124/72 02/20/24 08:45 BMI result Body Mass Index 27.5 Results AMB Test Urine AMB Test Urine Negative Last Edit by Micheline Simons MA on 02/20/24 09:03 Results Reviewed Results Reviewed: Laboratory Last Values [facility] Clinic Negative 02/20/24 09:03 Assessment & Plan Assessment & Plan (1) Actinomyces infection: Comment: on Pap smear Code(s): A42.9 - Actinomycosis, unspecified Plan: discussed with the patient and Actinomyces is part of the nadine, since there is no evidence of PID no evidence of treatment with the IUD. But since the patient is a candidate for colposcopy/biopsy / ECC will collect cervical culture for Actinomyces prior to the biopsies. All questions answered, the patient verbalized understand (2) ASCUS with positive high risk HPV cervical: Code(s): R87.610 - Atypical squamous cells of undetermined significance on cytologic smear of cervix (ASC-US); R87.810 - Cervical high risk human papillomavirus (HPV) DNA test positive Plan: Discussed with the patient the result of her abnormal pap, its significance, risk of progression, persistence, and regression. the false positive/negative rate of a Pap smear as a screening test in detecting cervical cancer and the indication for a diagnostic test -colposcopy, biopsy, endocervical curettage. since the patient showed Actinomyces will collect cervical culture for Actinomyces and re schedue colposcopy /Biopsy/ECC.The patient verbalized understanding and agreed with the plan, all questions answered. Orders: Orders Actinomyces Culture Today A42.9 - Actinomycosis, unspecified AMB HCG Urine Test Today Z32.02 - Encounter for test, result negative Coding Level of Care Code Est Pt Level 3 (27397) Diagnoses Actinomyces infection A42.9 ASCUS with positive high risk HPV cervical R87.610; R87.810
== END 2024-02-20 09:35 | disposition home or self-care (01) ==
PROVIDERS: PCP Internal Medicine; Visit Provider Obstetrics & Gynecology
DX: A42.9 Actinomycosis, unspecified (principal); R87.610 Atypical squamous cells of undetermined significance on cytologic smear of cervix (ASC-US); R87.810 Cervical high risk human papillomavirus (HPV) DNA test positive; Z32.02 Encounter for pregnancy test, result negative
CPT/HCPCS: 99213

== ENCOUNTER 2024-02-20 08:42 | Outpatient (REF) | payer OTHER, SELFPAY | END 2024-02-20 08:43 | disposition home or self-care (01) | LOC: HO.LNP 08:42 | PROVIDERS: PCP Internal Medicine; Visit Provider Obstetrics & Gynecology | DX: A42.9 Actinomycosis, unspecified (principal); R87.610 Atypical squamous cells of undetermined significance on cytologic smear of cervix (ASC-US); R87.810 Cervical high risk human papillomavirus (HPV) DNA test positive | CPT/HCPCS: 81025; 87070; 87205; 99212 ==

== ENCOUNTER 2024-02-25 14:49 | Outpatient (AMB) | payer OTHER, SELFPAY ==
[2024-02-25 15:08] VITALS: BP 126/80; BMI 27.5
--- NOTE | 2024-02-25 15:08 | A.OFFVIS_ITS ---
Intake Vital Signs 02/25/24 15:08 Height 5 ft 5 in Weight 165 lb BMI 27.5 BP 126/80 Intake Visit Reasons: Re-swab Product Evangelist Required: No Information Interpreted: non-clinical & clinical Refinery Pipeline Operator: Refinery Pipeline Operator Present (Aidyn) Allergies meperidine [From Demerol] Allergy (Severe, Verified 02/25/24 15:09) SWELLING,RASH,THROAT CLOSES latex [LATEX] Allergy (Mild, Verified 02/25/24 15:09) RASH codeine [Codeine] Adverse Reaction (Intermediate, Verified 02/25/24 15:09) NAUSEA/VOMITING, GI upset/vomiting duloxetine Adverse Reaction (Intermediate, Verified 02/25/24 15:09) headaches trazodone Adverse Reaction (Mild, Verified 02/25/24 15:09) Anxiety Fish Containing Products [Fish Product Derivatives] Adverse Reaction (Unknown, Verified 02/25/24 15:09) NAUSEA/VOMITING bupropion Adverse Reaction (Intermediate, Uncoded 02/25/24 15:09) increased headaches HPI HPI Comments History of Present Illness Details Presenting for repeat cervical culture for Actinomyces, Last cervical swab was not processed appropriate [facility] Medical History Renal calculus, bilateral Postcoital bleeding Major depression, recurrent, chronic Furuncle Diverticulitis Obesity (BMI 30-39.9) Crohn's colitis Crohns disease of small intestine Crohn's colitis Intractable nausea and vomiting Migraine History of renal cell cancer (~2014) Osteoarthritis of hips, bilateral Depression Crohn's disease Lumbar degenerative disc disease Insomnia Anxiety 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 Surgical History Hx of colonoscopy History of esophagogastroduodenoscopy (EGD) History of removal of calculus of renal pelvis through percutaneous nephrostomy (~10/2015) History of cryosurgery (~04/20/15) History of intestinal surgery History of arthroplasty (~01/2012) Family History Father Crohn disease Migraine Cancer Mother HTN (hypertension) Vertigo Cervical cancer Maternal Grandmother HTN (hypertension) Hyperlipidemia Diabetes mellitus Paternal Grandmother Diabetes mellitus Other Mental health problem Social History Household Members: Family and Children Housing: House Do you presently have visiting nurse or other home services: No Alcohol intake: never Patient Tobacco Use Status: Former Tobacco user Tobacco use type: Cigarette e-Cigarette/Vaping Use: Former Use Second Hand Smoke Exposure: No Advance Directives Date on File: 06/15/22 service: No Current occupational status: unemployed Gender identity: Female Cognitive needs: No Hearing needs: No Vision needs: Yes (glasses) Female Reproductive History Menstrual Age of Menarche: 12 Review of Systems Const All systems reviewed & are unremarkable except as noted in HPI and below Reports as per HPI and Reports no additional complaints GI Reports no additional complaints Reports no additional complaints Physical Exam Vital Signs: Last Vital Signs BP 126/80 02/25/24 15:08 BMI result Body Mass Index 27.5 Assessment & Plan Assessment & Plan (1) Actinomyces infection: Comment: on Pap smear Code(s): A42.9 - Actinomycosis, unspecified Plan: Cervical swab taken for Actinomyces culture done and sent to the microbiology lab. Will check the results and treat accordingly Orders: Orders Other Ref Test - Misc Today A42.9 - Actinomycosis, unspecified Coding Level of Care Code Est Pt Level 1 (35495) Diagnoses Actinomyces infection A42.9
== END 2024-02-25 15:20 | disposition home or self-care (01) ==
LOC: HO.HWS 14:49
PROVIDERS: PCP Internal Medicine; Visit Provider Obstetrics & Gynecology
DX: A42.9 Actinomycosis, unspecified (principal)

== ENCOUNTER 2024-02-25 14:49 | Outpatient (REF) | payer OTHER, SELFPAY | END 2024-02-25 14:50 | disposition home or self-care (01) | LOC: HO.LNP 14:49 | PROVIDERS: PCP Internal Medicine; Visit Provider Obstetrics & Gynecology | DX: A42.9 Actinomycosis, unspecified (principal) | CPT/HCPCS: 87081; 99211 ==

== ENCOUNTER 2024-03-16 10:03 | Outpatient (REF) | payer OTHER, SELFPAY | END 2024-03-16 10:04 | disposition home or self-care (01) | LOC: HO.LNP 10:03 | PROVIDERS: PCP Internal Medicine; Visit Provider Obstetrics & Gynecology | DX: R87.810 Cervical high risk human papillomavirus (HPV) DNA test positive (principal); R87.610 Atypical squamous cells of undetermined significance on cytologic smear of cervix (ASC-US) | CPT/HCPCS: 57454; 88305 ==

== ENCOUNTER 2024-03-16 10:03 | Outpatient (AMB) | payer OTHER, SELFPAY ==
--- NOTE | 2024-03-16 10:15 | MHC.OFFVIS ---
Vital Signs 03/16/24 10:16 Height 5 ft 5 in Weight 165 lb BMI 27.5 BP 100/62 Intake Visit Reasons: Colposcopy Director Payment: Director Payment Present (Sandy) Allergies meperidine [From Demerol] Allergy (Severe, Verified 03/16/24 10:16) SWELLING,RASH,THROAT CLOSES latex [LATEX] Allergy (Mild, Verified 03/16/24 10:16) RASH codeine [Codeine] Adverse Reaction (Intermediate, Verified 03/16/24 10:16) NAUSEA/VOMITING, GI upset/vomiting duloxetine Adverse Reaction (Intermediate, Verified 03/16/24 10:16) headaches trazodone Adverse Reaction (Mild, Verified 03/16/24 10:16) Anxiety Fish Containing Products [Fish Product Derivatives] Adverse Reaction (Unknown, Verified 03/16/24 10:16) NAUSEA/VOMITING bupropion Adverse Reaction (Intermediate, Uncoded 02/25/24 15:09) increased headaches HPI Comments Details: Presenting for colposcopy for abnormal Pap smear showing ascus/HPV E6/E7 positive, HPV 16/18/45 negative The patient had Actinomyces seen on Pap smear, culture taken from the cervix sent out to [facility] Diagnostic was not performed but this was followed by another cervical culture that was done in house, it did not isolate Actinomyces [facility] Medical History Renal calculus, bilateral Postcoital bleeding Major depression, recurrent, chronic Furuncle Diverticulitis Obesity (BMI 30-39.9) Crohn's colitis Crohns disease of small intestine Crohn's colitis Intractable nausea and vomiting Migraine History of renal cell cancer (~2014) Osteoarthritis of hips, bilateral Depression Crohn's disease Lumbar degenerative disc disease Insomnia Anxiety 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 Surgical History Hx of colonoscopy History of esophagogastroduodenoscopy (EGD) History of removal of calculus of renal pelvis through percutaneous nephrostomy (~10/2015) History of cryosurgery (~04/20/15) History of intestinal surgery History of arthroplasty (~01/2012) Family History Father Crohn disease Migraine Cancer Mother HTN (hypertension) Vertigo Cervical cancer Maternal Grandmother HTN (hypertension) Hyperlipidemia Diabetes mellitus Paternal Grandmother Diabetes mellitus Other Mental health problem Social History Household Members: Family and Children Housing: House Do you presently have visiting nurse or other home services: No Alcohol intake: never Patient Tobacco Use Status: Former Tobacco user Tobacco use type: Cigarette e-Cigarette/Vaping Use: Former Use Second Hand Smoke Exposure: No Advance Directives Date on File: 06/15/22 service: No Current occupational status: unemployed Gender identity: Female Cognitive needs: No Hearing needs: No Vision needs: Yes (glasses) Female Reproductive History Menstrual Age of Menarche: 12 Review of Systems Const All systems reviewed & are unremarkable except as noted in HPI and below Reports as per HPI and Reports no additional complaints GI Reports no additional complaints Reports no additional complaints Physical Exam Vital Signs: Last Vital Signs BP 100/62 03/16/24 10:16 BMI result Body Mass Index 27.5 Office Procedures Colposcopy Before the procedure was started discussed with the patient the procedure, alternatives & all the risks associated with the procedure (bleeding, infection, injury to vagina, bladder, vessels, possible need for transfusion with all its risks) then patient signed the consent UPT done in the office & negative Pap smear = ascus/HPV positive Speculum inserted, acetic acid used Colposcopy done Transformation zone seen, acetowhite lesions identified at 5+9+10+12+3 o?clock, cervical biopsies taken from 5+9+10+1 o?clock, ECC done afterwards. Vaginoscopy of the upper vagina showed no evidence of any aceto-white lesions Mirena IUD string was accidentally trapped in the jaws of the forceps biopsy and got removed Monsel solution used for hemostasis. The patient tolerated well . At the end the patient was instructed to call if temp>100.4, abdominal pain, n/v, bleeding; The patient was given the following instructions: nothing per vagina, no intercourse or bath tub use. All questions answered the patient verbalized understanding. Instructed the patient to make an appointment in 1 week for follow-up/Mirena IUD insertion in case LEEP is not indicated This note was generated with a voice recognition program. Some errors may have been overlooked during the review of this note. Sometimes these errors may affect the content or meaning of a given sentence. 29924-[id number] of cervix including upper vagina with biopsy and ECC Procedure code (CPT) selection complete Assessment & Plan Assessment & Plan (1) ASCUS with positive high risk HPV cervical: Code(s): R87.610 - Atypical squamous cells of undetermined significance on cytologic smear of cervix (ASC-US); R87.810 - Cervical high risk human papillomavirus (HPV) DNA test positive Category: Medical Plan: Colposcopy done, see procedure note Mirena IUD was accidentally removed during colposcopy and cervical biopsy, the string got trapped within the biopsy forceps jaws (2) Actinomyces infection: Comment: on Pap smear Code(s): A42.9 - Actinomycosis, unspecified Category: Medical Plan: Actinomyces seen on Pap smear but cultures w were negative, discussed with the patient the findings and the risk of possible PID with Actinomyces still exists. All questions answered, the patient verbalized understanding (3) Encounter for IUD removal: Comment: Accidental removal during colpo biopsy/ECC Code(s): Z30.432 - Encounter for removal of intrauterine contraceptive device Category: Medical Plan: Mirena IUD was accidentally removed during colposcopy and cervical biopsy, the string got trapped within the biopsy forceps jaws Instructions given the patient not to have intercourse post colposcopy for a week, schedule 1 week colpo follow-up appointment/Mirena IUD insertion if no evidence of moderate to severe precancer will proceed with Mirena IUD insertion Orders: Orders AMB Colposcopy Today R87.610 - Atypical squamous cells of undetermined significance on cytologic smear of cervix (ASC-US), R87.810 - Cervical high risk human papillomavirus (HPV) DNA test positive Coding Level of Care Code Procedure Only Diagnoses ASCUS with positive high risk HPV cervical R87.610; R87.810 Actinomyces infection A42.9 Encounter for IUD removal Z30.432 CPT Codes Colposcopy - CPT: 76832-Moroftqcg of cervix including upper vagina with biopsy and ECC ([id number])
[2024-03-16 10:16] VITALS: BP 100/62; BMI 27.5
== END 2024-03-16 13:03 | disposition home or self-care (01) ==
LOC: HO.HWS 10:03
PROVIDERS: PCP Internal Medicine; Visit Provider Obstetrics & Gynecology
DX: R87.610 Atypical squamous cells of undetermined significance on cytologic smear of cervix (ASC-US) (principal); R87.810 Cervical high risk human papillomavirus (HPV) DNA test positive; A42.9 Actinomycosis, unspecified; Z30.432 Encounter for removal of intrauterine contraceptive device
CPT/HCPCS: 57454

== ENCOUNTER 2024-03-23 09:39 | Outpatient (REF) | payer OTHER, SELFPAY ==
[2024-03-24 08:04] LABS: Lutenizing Hormone 5.7 mIU/mL
== END 2024-03-23 09:40 | disposition home or self-care (01) ==
LOC: HO.LAB 09:39
PROVIDERS: PCP Internal Medicine; Visit Provider Obstetrics & Gynecology
DX: Z30.09 Encounter for other general counseling and advice on contraception (principal); R87.610 Atypical squamous cells of undetermined significance on cytologic smear of cervix (ASC-US); R87.810 Cervical high risk human papillomavirus (HPV) DNA test positive
CPT/HCPCS: 36415; 83001; 83002; 99212

== ENCOUNTER 2024-03-23 09:39 | Outpatient (AMB) | payer OTHER, SELFPAY ==
--- NOTE | 2024-03-23 09:45 | A.OFFVIS_ITS ---
Vital Signs 03/23/24 09:51 Height 5 ft 5 in Weight 163 lb 2.273 oz BMI 27.1 BP 120/82 Intake Visit Reasons: EMB results/ Mirena insertion Allergies meperidine [From Demerol] Allergy (Severe, Verified 03/16/24 10:16) SWELLING,RASH,THROAT CLOSES latex [LATEX] Allergy (Mild, Verified 03/16/24 10:16) RASH codeine [Codeine] Adverse Reaction (Intermediate, Verified 03/16/24 10:16) NAUSEA/VOMITING, GI upset/vomiting duloxetine Adverse Reaction (Intermediate, Verified 03/16/24 10:16) headaches trazodone Adverse Reaction (Mild, Verified 03/16/24 10:16) Anxiety Fish Containing Products [Fish Product Derivatives] Adverse Reaction (Unknown, Verified 03/16/24 10:16) NAUSEA/VOMITING bupropion Adverse Reaction (Intermediate, Uncoded 02/25/24 15:09) increased headaches HPI Comments Details: Presenting post colpo for follow-up and to discuss options of control, Mirena IUD was accidentally removed during cervical biopsy last visit. The patient is doing well with no complaints. The pathology showed the following: A. Endocervix, curettage: Scant endocervical glandular and squamous epithelium; negative for dysplasia. B. Cervix, 3:00, biopsy: Squamous mucosa with reactive changes and rare detached endocervical glandular epithelium; negative for dysplasia. C. Cervix, 5:00, biopsy: Squamous mucosa with hyperkeratosis; negative for dysplasia; no endocervical glandular component present. D. Cervix, 9:00, biopsy: Squamous mucosa with inflammation and focal atypia, focal endocervical glandular epithelium, and acute inflammatory exudate with Actinomyces. (see comment). E. Cervix, 10:00, biopsy: Squamous and endocervical glandular mucosa with inflammation and reactive changes; negative for dysplasia. F. Cervix, 12:00, biopsy: Squamous mucosa with reactive changes; negative for dysplasia; no endocervical glandular component present. Comment: (D): The focal squamous atypia is insufficient for unequivocal diagnosis of squamous intraepithelial lesion, but may represent a resolving mild dysplasia. There is no evidence of a high-grade lesion. 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 Surgical History Hx of colonoscopy History of esophagogastroduodenoscopy (EGD) History of removal of calculus of renal pelvis through percutaneous nephrostomy (~10/2015) History of cryosurgery (~04/20/15) History of intestinal surgery History of arthroplasty (~01/2012) Family History Father Crohn disease Migraine Cancer Mother HTN (hypertension) Vertigo Cervical cancer Maternal Grandmother HTN (hypertension) Hyperlipidemia Diabetes mellitus Paternal Grandmother Diabetes mellitus Other Mental health problem Social History Household Members: Family and Children Housing: House Do you presently have visiting nurse or other home services: No Alcohol intake: never Patient Tobacco Use Status: Former Tobacco user Tobacco use type: Cigarette e-Cigarette/Vaping Use: Former Use Second Hand Smoke Exposure: No Advance Directives Date on File: 06/15/22 service: No Current occupational status: unemployed Gender identity: Female Cognitive needs: No Hearing needs: No Vision needs: Yes (glasses) Female Reproductive History Menstrual Age of Menarche: 12 Review of Systems Const All systems reviewed & are unremarkable except as noted in HPI and below Reports as per HPI and Reports no additional complaints GI Reports no additional complaints Reports no additional complaints Assessment & Plan Assessment & Plan (1) ASCUS with positive high risk HPV cervical: Code(s): R87.610 - Atypical squamous cells of undetermined significance on cytologic smear of cervix (ASC-US); R87.810 - Cervical high risk human papillomavirus (HPV) DNA test positive Category: Medical Plan: Discussed with the patient the pathology results of the colposcopy biopsies & endocervical curettage (squamous atypical cells insufficient for the diagnosis of dysplasia). Discussed with the patient the sensitivity specificity, positive and negative predictive value in detecting cervical cancer in addition discussed the regression, persistence and progression rates. Recommended co-testing in 12 months, if cytology and or HPV are abnormal will proceed was colposcopy biopsy and endocervical curettage, if lesions gets worse or stays persistent for 2 years will proceed with loop electric excision procedure. Instructions given to the patient to schedule a co test appointment in 1 year. All questions answered the patient verbalized understanding. (2) Family planning: Code(s): Z30. - Encounter for other general counseling and advice on contraception Category: Social Hx Plan: Since the patient is 48 and average age of menopause is 51, will order FSH/LH to determine if is the patient is menopausal or not, therefore decide on options of control. Discussed with the patient the different options of control including control pills/Nuvaring, Depo Medroxy Progesterone Acetate, IUD ( levonorgestrel, Copper), sterilization, progesterone only pills and barrier methods. All the pros, cons, risks and benefits of each were discussed with the patient. The patient decided to start with FSH/LH, think about get back to us. Instructions were given to schedule a 2 week follow-up appointment. All questions answered, the patient verbalized understanding. Orders: Orders Follicle Stimulating Hormone Today Z. - Encounter for other general counseling and advice on contraception Lutenizing Hormone Today Z. - Encounter for other general counseling and advice on contraception Coding Level of Care Code Est Pt Level 3 (42730) Diagnoses ASCUS with positive high risk HPV cervical R87.610; R87.810 Family planning Z.
[2024-03-23 09:51] VITALS: BP 120/82; BMI 27.1
== END 2024-03-23 10:28 | disposition home or self-care (01) ==
PROVIDERS: PCP Internal Medicine; Visit Provider Obstetrics & Gynecology
DX: R87.610 Atypical squamous cells of undetermined significance on cytologic smear of cervix (ASC-US) (principal); R87.810 Cervical high risk human papillomavirus (HPV) DNA test positive; Z30.09 Encounter for other general counseling and advice on contraception
CPT/HCPCS: 99213

== ENCOUNTER 2024-03-26 08:55 | Outpatient (REF) | payer OTHER, SELFPAY ==
[2024-03-26 11:18] LABS: MANUAL DIFF FLAG NO
[2024-03-26 11:27] LABS: Basophils Percent Auto 0.4 % (0-2); Eosinophils Absolute Auto 0.2 X10*3/uL (0.0-0.4); Eosinophils Percent Auto 1.6 % (0-4); Hemoglobin 14.4 g/dl (12.0-16.0); Imm Gran Abs Auto 0.05 X10*3/uL (0.00-0.03); Imm Gran Pct Auto 0.5 % (0.0-0.4); Lymphocytes Absolute Auto 1.9 X10*3/uL (1.2-4.9); Lymphocytes Percent Auto 19.4 % (20-40); Mean Corpuscular HGB Conc 32.7 g/dl (31.0-35.0); Mean Corpuscular Hemoglobin 30.5 pg (27.0-33.0); Mean Corpuscular Volume 93.2 fL (80.0-98.0); Mean Platelet Volume 10.1 fL (9.4-12.3); Monocytes Absolute Auto 0.7 X10*3/uL (0.1-1.2); Monocytes Percent Auto 7.2 % (2-11); Neutrophils Absolute Auto 6.8 x10*3/uL (2.0-8.3); Neutrophils Percent Auto 70.9 % (45-73); Platelet Count 375 X10*3/uL (160-400); Red Blood Count 4.72 X10*6/uL (4.20-5.50); Red Cell Distribution Width 14.8 % (11.0-16.0); White Blood Count 9.5 X10*3/uL (4.8-10.8)
[2024-03-26 12:15] LABS: Erythrocyte Sedimentation Rate 23 MM/HR (0-20)
[2024-03-26 12:34] LABS: Alanine Aminotransferase 11 U/L (0-31); Albumin Level 3.9 g/dL (3.5-5.0); Alkaline Phosphatase 77 U/L (39-117); Anion Gap 14 (12-20); Aspartate Amino Transferase 12 U/L (5-31); Bilirubin Direct 0.1 mg/dL (0.0-0.5); Bilirubin Total 0.3 mg/dL (0.0-1.0); Blood Urea Nitrogen 11 mg/dL (9-16); Calcium 10.1 mg/dL (8.4-10.2); Carbon Dioxide 25 mmol/L (22-29); Chloride 104 mmol/L (96-108); Estimated Glomerular Filt Rate > 60; Glucose Random 85 mg/dL (60-115); Iron 72 mcg/dL (30-160); Percent Iron Saturation 27 % (15-50); Potassium 3.8 mmol/L (3.3-5.1); Sodium 139 mmol/L (135-145); Total Iron Binding Capacity 262 mcg/dL (228-428); Total Protein 7.6 g/dL (6.5-8.0); Unsaturated Iron Binding 190 ug/dL
[2024-03-26 12:35] LABS: Ferritin 60 ng/mL (10-250)
== END 2024-03-26 08:56 | disposition home or self-care (01) ==
LOC: HO.10HDL 08:55
PROVIDERS: Visit Provider Internal Medicine
DX: K50.80 Crohn's disease of both small and large intestine without complications (principal)
CPT/HCPCS: 36415; 80048; 80076; 80280; 82542; 82728; 83540; 85025; 85652; 86140

== ENCOUNTER 2024-04-01 07:46 | Inpatient (IN) | payer OTHER, SELFPAY ==
[2024-04-01] VITALS (9 sets, daily range): BP systolic 105–138; BP diastolic 47–88; PULSE 55–90; RESP 16–24; TEMP 36.5–37.3; O2SAT 97–99; BMI 25.4
--- NOTE | ~2024-04-01 | XR_ITS ---
EXAMINATION: XR ABDOMEN KUB CLINICAL INDICATION: Abdominal pain with decreased bowel sounds and question of obstruction COMPARISON: 02/15/2023 TECHNIQUE: AP view of the abdomen. FINDINGS: The bowel gas pattern is normal with no evidence of ileus or obstruction. No unusual soft tissue calcifications are noted. Again seen is an intramedullary izzy and screw in the left hip. Mild degenerative changes are present in the spine with scoliosis convex to left. Since the prior study, an IUD has been removed from the uterus. XR/XR abdomen 1V IMPRESSION: No evidence of bowel obstruction. Interval removal of IUD.
--- NOTE | ~2024-04-01 | CT_ITS ---
EXAMINATION: CT ABDOMEN AND PELVIS WITH CONTRAST CLINICAL INFORMATION: Severe abdominal pain and vomiting. History of Crohn disease. COMPARISON: CT imaging from 12/12/2023. Abdomen MRI from . TECHNIQUE: Multidetector volumetric images were obtained from the superior aspect of the liver through the pubic symphysis following administration 85 mL of Omnipaque 350 intravenous contrast. Sagittal and coronal reformatted images were obtained on the technologist's workstation. Oral contrast: No This CT examination was performed using dose optimization techniques as appropriate, variously including the following: *Automated exposure control *Adjustment of mA and/or kV according to patient size (this includes techniques or standardized protocols for targeted exams where dose is matched to indication/reason for exam; i.e. extremities or head) *Use of iterative reconstruction technique DLP: 525 mGy-cm FINDINGS: LUNG BASES: No pulmonary consolidation or pleural effusion. HEPATOBILIARY: Liver has normal size, shape, and attenuation. Gallbladder has a normal appearance. No dilated bile ducts. PANCREAS: Mildly atrophied. No edema, pancreatic ductal dilatation or mass. SPLEEN: Normal. ADRENAL GLANDS: Normal. KIDNEYS AND URETERS: Kidneys are normal in size. No nephrolithiasis or hydronephrosis. 1.6 cm cyst of the posterior interpolar region of the right kidney appears to have a septation of at least 3 mm thickness. This is similar in appearance compared to the IV contrast-enhanced CT exam from 12/12/2023. This cyst was 1.5 cm on 06/15/2022. It had contrast-enhancing septations on the MRI from 11/19/2023. This is regarded as a Bosniak category 2F lesion, but since it is not significantly changed since 12/12/2023, consider renal imaging follow-up in another 12 months. BLADDER: Normal. BOWEL AND PERITONEUM: Small hiatal hernia. No dilated loops of bowel. There is chronic submucosal fat attenuation in the wall of the distal ileum as may be seen in late stage inflammatory bowel disease. No evidence of acute inflammation in this region. No adjacent mesenteric fat stranding, enteroenteric fistula or abscess. Appendix is normal. Colon is underdistended and there are multiple diverticula of the colon. There is mild haziness of pericolonic fat in region of transition from descending to proximal sigmoid colon. This corresponds to the site of inflammation seen on 12/12/2023 and represents significant improvement. There is no bowel perforation or abscess. ABDOMINAL WALL: Small fat-containing periumbilical hernia is present. VASCULATURE: Abdominal aorta is normal in caliber. Inferior vena cava is normal. LYMPH NODES: No pathologic sized lymph nodes in the abdomen or pelvis. No inguinal lymphadenopathy. PELVIC VISCERA: No uterine or adnexal mass. No pelvic free fluid. MUSCULOSKELETAL: No acute or suspicious osseous abnormality. Facet osteoarthritis and grade 1 anterolisthesis at L4-L5. No evidence of sacroiliitis. No evidence of loosening of the partially visualized left femoral fixation nail. The dynamic hip screw is well-positioned within the femoral head-neck. CT/CT abdomen pelvis w IV con IMPRESSION: * No evidence of bowel obstruction. * Pancolonic diverticulosis. Mild pericolonic fat stranding in region of transition from distal descending to proximal sigmoid colon is suggestive of mild diverticulitis. However, this represents significant improvement from the inflammation seen in this same region on 12/12/2023. No abscess. * No findings to suggest active Crohn disease. * There is a septated cyst of the posterior interpolar region of the right kidney. This is considered a Bosniak category 2F lesion. Recommend imaging follow-up in 12 months to ensure stability (e.g., renal MRI performed without and with IV contrast).
[2024-04-01 08:29] LABS: MANUAL DIFF FLAG NO
--- NOTE | 2024-04-01 08:29 | ED_ITS ---
HPI - General Adult General Chief complaint: Abdominal Pain Stated complaint: N/V, ABD PAIN SINCE LAST NOC PER EMS Time Seen by Provider: 04/01/24 08:29 History of Present Illness HPI narrative: The patient is a 48-year-old female with a history of Crohn's disease. She receives Entyvio. She sees Dr. Alexis of Gastroenterology. She also has a history of problems with diverticulitis. She says that she has been trying to adjust her diet recently to help her symptoms. She says that over the last 2 or 3 days she has had increasing abdominal pains and also severe nausea and vomiting. She called an ambulance today because she was feeling so bad. Placed in a room she said she was so uncomfortable she could not stay on the stretcher and was throwing herself around the floor of the hospital room. Related Data Home Medications ?Medication ?Instructions ?Recorded ?Confirmed levonorgestrel 21 mcg/24 hours (8 1 device intrauterine ONCE 10/04/20 01/16/24 yrs) 52 mg intrauterine device (Mirena) diphenoxylate-atropine 2.5 1 - 2 tab PO Q6H PRN Diarrhea 05/04/22 01/16/24 mg-0.025 mg tablet dicyclomine 10 mg capsule 10 mg PO BID PRN Gastrointestinal 07/17/22 01/16/24 Spasms Or Cramping vedolizumab 300 mg intravenous 300 mg IV Q4W 10/16/22 01/16/24 solution (Entyvio) budesonide 3 mg 9 mg PO DAILY 11/14/22 01/16/24 capsule,delayed,extended release mesalamine 500 mg capsule,extended 500 mg PO QID 11/14/22 01/16/24 release omeprazole 20 mg capsule,delayed 40 mg PO DAILY 10/04/23 01/16/24 release Previous Rx's ?Medication ?Instructions ?Recorded acetaminophen 325 mg tablet 650 mg (2 x 325 mg) PO Q8H PRN 04/29/21 Pain, Mild (Pain Scale 1-3) 30 days ondansetron 4 mg disintegrating 4 mg PO Q8H PRN nausea and 07/01/23 tablet vomiting #20 tabs promethazine 25 mg rectal 25 mg MT Q6H PRN nausea and 12/12/23 suppository vomiting #12 ea zolpidem 12.5 mg tablet,extended 12.5 mg PO .COMPLEX 30 days #15 01/20/24 release,multiphase tabs sumatriptan succinate 50 mg tablet See Rx Instructions PO .COMPLEX 02/14/24 #30 tabs clonidine HCl 0.1 mg tablet 0.1 mg PO TID PRN for anxiety #90 03/17/24 tabs lorazepam 1 mg tablet 1 mg PO TID anxiety 30 days #90 03/17/24 tabs tramadol 50 mg tablet 50 mg PO TID PRN pain 30 days #90 03/17/24 tabs cefuroxime axetil 500 mg tablet 500 mg PO Q12H #14 tabs 04/01/24 propranolol 10 mg tablet 10 mg PO BID #60 tabs 04/01/24 Allergies Allergy/AdvReac Type Severity Reaction Status Date / Time meperidine [From Demerol] Allergy Severe SWELLING,RASH,THROAT Verified 04/01/24 07:58 CLOSES latex [LATEX] Allergy Mild RASH Verified 04/01/24 07:58 codeine [Codeine] AdvReac Intermediate NAUSEA/VOMITING, Verified 04/01/24 07:58 GI upset/vomiting duloxetine AdvReac Intermediate headaches Verified 04/01/24 07:58 trazodone AdvReac Mild Anxiety Verified 04/01/24 07:58 Fish Containing Products AdvReac Unknown NAUSEA/VOMI Verified 04/01/24 07:58 [Fish Product Derivatives] TING bupropion AdvReac Intermediate increased Uncoded 04/01/24 07:58 headaches Review of Systems 2 Review of Systems: Yes all other systems are reviewed and are negative [facility] Past Medical History Medical History Renal calculus, bilateral Postcoital bleeding Major depression, recurrent, chronic Furuncle Diverticulitis Obesity (BMI 30-39.9) Crohn's colitis Crohns disease of small intestine Crohn's colitis Intractable nausea and vomiting Migraine History of renal cell cancer (~2014) Osteoarthritis of hips, bilateral Depression Crohn's disease Lumbar degenerative disc disease Insomnia Anxiety 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 Surgical History Hx of colonoscopy History of esophagogastroduodenoscopy (EGD) History of removal of calculus of renal pelvis through percutaneous nephrostomy (~10/2015) History of cryosurgery (~04/20/15) History of intestinal surgery History of arthroplasty (~01/2012) Family History Family History Father Crohn disease Migraine Cancer Mother HTN (hypertension) Vertigo Cervical cancer Maternal Grandmother HTN (hypertension) Hyperlipidemia Diabetes mellitus Paternal Grandmother Diabetes mellitus Other Mental health problem Social History Social History Household Members: Family and Children Housing: House Do you presently have visiting nurse or other home services: No Alcohol intake: current Alcohol intake frequency: holidays/special occasions only Patient Tobacco Use Status: Former Tobacco user Tobacco use type: Cigarette Smoked in Last 30 Days: No e-Cigarette/Vaping Use: Former Use Second Hand Smoke Exposure: No Use of substances other than those prescribed or required for medical reasons: No Advance Directives: Yes Advance Directives on File: Yes Advance Directives Date on File: 06/15/22 Do you have a plan to hurt others: No Plan Patient : No service: No Current occupational status: unemployed Gender identity: Female Cognitive needs: No Hearing needs: No Vision needs: Yes (glasses) Physical Exam ED Vital Signs: Vital Signs - 24 hr 04/01/24 07:55 04/01/24 09:21 04/01/24 12:00 Temperature 98.7 F 98.3 F Pulse Rate 87 90 Respiratory Rate 20 24 H Blood Pressure 126/75 138/88 Pulse Oximetry 98 97 Oxygen Delivery Method Room Air Room Air 04/01/24 12:29 04/01/24 14:00 Temperature 97.7 F Pulse Rate 63 Respiratory Rate 18 Blood Pressure 137/70 Pulse Oximetry 98 Oxygen Delivery Method Room Air BMI result Body Mass Index 25.4 Const Other: The patient was on the floor of her hospital room, moving around as if she was extremely uncomfortable and occasionally retching. HENMT Other: Face is symmetrical. Mucous membranes moist. Eyes Other: Pupils are round equal, conjunctivae are clear Neck Other: Neck is supple Resp Effort & Inspection: normal respiratory effort Auscultation: clear to auscultation bilaterally Cardio Rate: regular rate Rhythm: regular rhythm Heart sounds: S1 normal heart sound present and S2 normal heart sound present GI Other: Abdomen is soft. She seemed to have significant right lower quadrant tenderness Back/Spine/Pelvis Other: No CVA percussion tenderness Skin Other: Skin is dry and unremarkable Neuro Other: The patient was awake and alert. She was extremely histrionic. Cranial nerves were intact. Strength was symmetrical. She had no focal findings Extrem Other: No peripheral edema Medications Administered Generic Name Dose Route Start Last Admin Trade Name Freq PRN Reason Stop Dose Admin Sodium Chloride 3 ml 04/01/24 16:00 04/01/24 16:03 0.9 % Sodium Chloride Flush 3 Ml Syringe IVFLUSH Not Given QSHIFT BENJAMIN Discontinued Medications Generic Name Dose Route Start Last Admin Trade Name Freq PRN Reason Stop Dose Admin Diphenhydramine HCl 25 mg 04/01/24 13:41 04/01/24 13:58 Diphenhydramine Hcl 50 Mg/Ml Vial IVPUSH 04/01/24 13:42 25 mg ONCE ONE Administration Droperidol 1.25 mg 04/01/24 09:07 04/01/24 09:20 Droperidol 5 Mg/2 Ml Vial IVPUSH 04/01/24 09:08 1.25 mg ONCE ONE Administration Droperidol 1.25 mg 04/01/24 12:01 04/01/24 12:29 Droperidol 5 Mg/2 Ml Vial IVPUSH 04/01/24 12:02 1.25 mg ONCE ONE Administration Hydromorphone HCl 1 mg 04/01/24 08:31 04/01/24 08:36 Hydromorphone Hcl 1 Mg/Ml Syringe IVPUSH 04/01/24 08:32 1 mg ONCE ONE Administration Protocol Hydromorphone HCl 1 mg 04/01/24 09:07 04/01/24 09:21 Hydromorphone Hcl 1 Mg/Ml Syringe IVPUSH 04/01/24 09:08 1 mg ONCE ONE Administration Protocol Hydromorphone HCl 1 mg 04/01/24 12:01 04/01/24 12:29 Hydromorphone Hcl 1 Mg/Ml Syringe IVPUSH 04/01/24 12:02 1 mg ONCE ONE Administration Protocol Sodium Chloride 1,000 mls @ 999 mls/hr 04/01/24 12:15 04/01/24 12:26 Ns IV 04/01/24 13:15 999 mls/hr .Q1H1M BENJAMIN Administration Ceftriaxone Sodium 2 gm/ 50 mls @ 100 mls/hr 04/01/24 13:44 04/01/24 15:06 Sodium Chloride IV 04/01/24 14:13 Infused ONCE ONE Infusion Metronidazole 500 mg in 100 mls @ 100 mls/hr 04/01/24 13:44 04/01/24 16:03 Flagyl IV 04/01/24 14:43 100 mls/hr ONCE ONE Administration Iohexol 100 ml 04/01/24 10:53 04/01/24 10:53 Iohexol 350 Mg/Ml 100 Ml Infus..Btl IV 04/01/24 10:54 85 ml ONCE ONE Administration Ketorolac Tromethamine 10 mg 04/01/24 09:07 04/01/24 09:20 Ketorolac Tromethamine 15 Mg/Ml Vial IVPUSH 04/01/24 09:08 10 mg ONCE ONE Administration Lorazepam 1 mg 04/01/24 14:59 04/01/24 16:03 Lorazepam 1 Mg Tablet PO 04/01/24 15:00 1 mg ONCE ONE Administration Prochlorperazine Edisylate 10 mg 04/01/24 13:41 04/01/24 13:59 Prochlorperazine Edisylate 10 Mg/2 Ml Vial IVPUSH 04/01/24 13:42 10 mg ONCE ONE Administration Medical Decision Making Medical Decision Making [facility] Narrative: The patient is a 48-year-old female with a history of Crohn's disease and history of diverticulitis who presents with a few days of abdominal pain that she says was so severe she had to come by ambulance. In the emergency room prior to my arrival the patient had essentially been throwing herself around her hospital room on the floor because of her pain and nausea. She was given IV hydromorphone and droperidol. She received several doses of these medications because their effect seemed short lived. White count was mildly elevated. CRP minimally elevated. A CT scan of the abdomen and pelvis was done that shows mild diverticulitis. I am at somewhat of a loss to explain the severity of her symptoms given her mild findings on labs and on CT scan. In any event given the degree of her symptoms I feel she will require hospitalization for symptom control. She was started on antibiotics for diverticulitis with ceftriaxone and metronidazole. She will be admitted to the hospitalist service. Lab Data 04/01/24 08:19 04/01/24 08:19 Labs: Lab Results 04/01/24 04/01/24 04/01/24 Range/Units 08:16 08:19 13:50 WBC 12.4 H (4.8-10.8) X10*3/uL RBC 4.71 (4.20-5.50) X10*6/uL Hgb 14.4 (12.0-16.0) g/dl Hct 41.9 (37.0-47.0) % MCV 89.0 (80.0-98.0) fL MCH 30.6 (27.0-33.0) pg MCHC 34.4 (31.0-35.0) g/dl RDW 14.6 (11.0-16.0) % Plt Count 395 (160-400) X10*3/uL MPV 9.6 (9.4-12.3) fL Immature Gran % (Auto) 0.7 H (0.0-0.4) % Neut % (Auto) 75.8 H (45-73) % Lymph % (Auto) 15.0 L (20-40) % [place] % (Auto) 7.1 (2-11) % Eos % (Auto) 0.8 (0-4) % Baso % (Auto) 0.6 (0-2) % Lymph # (Auto) 1.9 (1.2-4.9) X10*3/uL [place] # (Auto) 0.9 (0.1-1.2) X10*3/uL Eos # (Auto) 0.1 (0.0-0.4) X10*3/uL Baso # (Auto) 0.1 (0.0-0.2) X10*3/uL Abs Immat Gran (auto) 0.09 H (0.00-0.03) X10*3/uL Absolute Neuts (auto) 9.4 H (2.0-8.3) x10*3/uL Absolute Nucleated RBC 0.000 (0.0-0.012) X10*3/uL Nucleated RBC % (auto) 0.0 (0.0-0.2) /100WBC ESR 24 H (0-20) MM/HR Sodium 143 (135-145) mmol/L Potassium 3.5 (3.3-5.1) mmol/L Chloride 108 (96-108) mmol/L Carbon Dioxide 20 L (22-29) mmol/L Anion Gap 19 (12-20) BUN 13 (9-16) mg/dL Creatinine 0.85 (0.5-1.4) mg/dL Estim Creat Clear Calc 81.9 Estimated GFR > 60 Random Glucose 149 H (60-115) mg/dL Lactic Acid (0.5-2.0) mmol/L Calcium 10.1 (8.4-10.2) mg/dL Total Bilirubin 0.4 (0.0-1.0) mg/dL Direct Bilirubin 0.1 (0.0-0.5) mg/dL AST 14 (5-31) U/L ALT 14 (0-31) U/L Alkaline Phosphatase 93 (39-117) U/L C-Reactive Protein 1.38 H (< or = 0.50) mg/dL Total Protein 7.5 (6.5-8.0) g/dL Albumin 3.9 (3.5-5.0) g/dL Lipase 10 (8-78) U/L Beta HCG, Quant < 2 mIU/mL Urine Color Yellow Urine Appearance Clear Urine pH 7.0 (5.0-9.0) Ur Specific [place] >= 1.030 H (1.005-1.025) Urine Protein 30 (1+) H (Neg-Trace) mg/dL Urine Glucose (UA) Negative (Negative) mg/dL Urine Ketones 15 (Negative) mg/dL Urine Blood Negative (Negative) Urine Nitrite Positive H (Negative) Ur Leukocyte Esterase Negative (Negative) Urine RBC 0-2 (0-2) /HPF Urine WBC 0-5 (0-5) /HPF Ur Squamous Epith Cells 0-2 (0-2) /HPF Urine Bacteria 4+ (None Seen) Hyaline Casts 0-2 (0-2) /LPF 04/01/24 Range/Units 14:38 WBC (4.8-10.8) X10*3/uL RBC (4.20-5.50) X10*6/uL Hgb (12.0-16.0) g/dl Hct (37.0-47.0) % MCV (80.0-98.0) fL MCH (27.0-33.0) pg MCHC (31.0-35.0) g/dl RDW (11.0-16.0) % Plt Count (160-400) X10*3/uL MPV (9.4-12.3) fL Immature Gran % (Auto) (0.0-0.4) % Neut % (Auto) (45-73) % Lymph % (Auto) (20-40) % [place] % (Auto) (2-11) % Eos % (Auto) (0-4) % Baso % (Auto) (0-2) % Lymph # (Auto) (1.2-4.9) X10*3/uL [place] # (Auto) (0.1-1.2) X10*3/uL Eos # (Auto) (0.0-0.4) X10*3/uL Baso # (Auto) (0.0-0.2) X10*3/uL Abs Immat Gran (auto) (0.00-0.03) X10*3/uL Absolute Neuts (auto) (2.0-8.3) x10*3/uL Absolute Nucleated RBC (0.0-0.012) X10*3/uL Nucleated RBC % (auto) (0.0-0.2) /100WBC ESR (0-20) MM/HR Sodium (135-145) mmol/L Potassium (3.3-5.1) mmol/L Chloride (96-108) mmol/L Carbon Dioxide (22-29) mmol/L Anion Gap (12-20) BUN (9-16) mg/dL Creatinine (0.5-1.4) mg/dL Estim Creat Clear Calc Estimated GFR Random Glucose (60-115) mg/dL Lactic Acid 2.3 H* (0.5-2.0) mmol/L Calcium (8.4-10.2) mg/dL Total Bilirubin (0.0-1.0) mg/dL Direct Bilirubin (0.0-0.5) mg/dL AST (5-31) U/L ALT (0-31) U/L Alkaline Phosphatase (39-117) U/L C-Reactive Protein (< or = 0.50) mg/dL Total Protein (6.5-8.0) g/dL Albumin (3.5-5.0) g/dL Lipase (8-78) U/L Beta HCG, Quant mIU/mL Urine Color Urine Appearance Urine pH (5.0-9.0) Ur Specific [place] (1.005-1.025) Urine Protein (Neg-Trace) mg/dL Urine Glucose (UA) (Negative) mg/dL Urine Ketones (Negative) mg/dL Urine Blood (Negative) Urine Nitrite (Negative) Ur Leukocyte Esterase (Negative) Urine RBC (0-2) /HPF Urine WBC (0-5) /HPF Ur Squamous Epith Cells (0-2) /HPF Urine Bacteria (None Seen) Hyaline Casts (0-2) /LPF Discharge Plan Discharge Clinical Impression: Abdominal pain, Diverticulitis, Vomiting Patient Disposition: Admitted As Inpatient
[2024-04-01 08:33] LABS: Basophils Absolute Auto 0.1 X10*3/uL (0.0-0.2); Basophils Percent Auto 0.6 % (0-2); Eosinophils Absolute Auto 0.1 X10*3/uL (0.0-0.4); Eosinophils Percent Auto 0.8 % (0-4); Hematocrit 41.9 % (37.0-47.0); Hemoglobin 14.4 g/dl (12.0-16.0); Imm Gran Abs Auto 0.09 X10*3/uL (0.00-0.03); Imm Gran Pct Auto 0.7 % (0.0-0.4); Lymphocytes Absolute Auto 1.9 X10*3/uL (1.2-4.9); Mean Corpuscular HGB Conc 34.4 g/dl (31.0-35.0); Mean Corpuscular Hemoglobin 30.6 pg (27.0-33.0); Mean Platelet Volume 9.6 fL (9.4-12.3); Monocytes Absolute Auto 0.9 X10*3/uL (0.1-1.2); Monocytes Percent Auto 7.1 % (2-11); Neutrophils Absolute Auto 9.4 x10*3/uL (2.0-8.3); Neutrophils Percent Auto 75.8 % (45-73); Platelet Count 395 X10*3/uL (160-400); Red Blood Count 4.71 X10*6/uL (4.20-5.50); Red Cell Distribution Width 14.6 % (11.0-16.0); White Blood Count 12.4 X10*3/uL (4.8-10.8)
[2024-04-01] MEDS: HYDROmorphone HCl 1 MG/ML SYRINGE IVPUSH ×3 (08:36→12:29)
[2024-04-01 08:46] LABS: Alanine Aminotransferase 14 U/L (0-31); Albumin Level 3.9 g/dL (3.5-5.0); Alkaline Phosphatase 93 U/L (39-117); Anion Gap 19 (12-20); Aspartate Amino Transferase 14 U/L (5-31); Bilirubin Direct 0.1 mg/dL (0.0-0.5); Bilirubin Total 0.4 mg/dL (0.0-1.0); Blood Urea Nitrogen 13 mg/dL (9-16); C Reactive Protein 1.38 mg/dL (< or = 0.50); Calcium 10.1 mg/dL (8.4-10.2); Carbon Dioxide 20 mmol/L (22-29); Chloride 108 mmol/L (96-108); Creatinine Clr Calc Pharmacy 81.9; Estimated Glomerular Filt Rate > 60; Glucose Random 149 mg/dL (60-115); Lipase 10 U/L (8-78); Potassium 3.5 mmol/L (3.3-5.1); Sodium 143 mmol/L (135-145); Total Protein 7.5 g/dL (6.5-8.0)
[2024-04-01] MEDS: droPERidol 5 MG/2 ML VIAL 1.25 MG IVPUSH ×2 (09:20→12:29)
[2024-04-01] MEDS: Ketorolac Tromethamine 15 MG/ML VIAL 10 MG IVPUSH (09:20)
[2024-04-01 10:36] LABS: HCG Quantitative < 2 mIU/mL
[2024-04-01] MEDS: iohexoL 350 MG/ML 100 ML INFUS..BTL IV (10:53)
[2024-04-01] MEDS: 0.9 % Sodium Chloride 1,000 ML 999 ML IV ×2 (12:26→17:33)
[2024-04-01] MEDS: diphenhydrAMINE HCL 50 MG/ML VIAL 25 MG IVPUSH ×2 (13:58→18:16)
[2024-04-01] MEDS: Prochlorperazine Edisylate 10 MG/2 ML VIAL IVPUSH (13:59)
--- NOTE | 2024-04-01 14:02 | P.HPHOSP_ITS ---
History of Present Illness Date of Service: 04/01/24 Attending physician on admission: Santosh Tello Chief Complaint: Abd pain, N/V Pt is a 48-year-old female with a PMH significant for?Crohn's disease with hx of colonic fistula, diverticulitis, renal cell carcinoma, lumbar degenerative disc disease, migraines, bilateral osteoarthritis of the hips, anxiety, and depression who presents to the ED for evaluation of abdominal pain and intractable nausea and vomiting. Patient reports that she has not been feeling well for the past 2 weeks. Did see her confectionery cooker during this time and received?her monthly vedolizumab infusion. Has had reduced p.o. intake. Chronic abdominal pain slightly worse than baseline. Symptoms worsened last night when patient began experiencing intractable nausea, vomiting, and diarrhea, and increased abdominal pain. Pain began on right side then migrated to the left side, and then wrapped around to her back. Subjective fever and chills. This morning patient noted she was weak, shaking, and could not get up or stand on her own, so EMS was called. Patient denies any chest pain/pressure, palpitations. No shortness of breath or difficulty breathing. Patient reports saw her MINCEMEAT MAKER around 5-7 days ago where she had 5 cervical biopsies taken for abnormal Pap smear. Procedure was complicated by unintentional IUD extraction. Patient reports her doctor had warned her she would be susceptible to a UTI from this procedure. In the ED pt was tachypneic up to 24, but with vitals otherwise WNL. Labs were significant for leukocytosis of 12.4 and CRP mildly elevated at 1.38, otherwise grossly unremarkable. Stable H& H. No significant electrolyte abnormalities. Renal and hepatic function baseline. CT of abdomen and pelvis found pancolonic diverticulitis, though showing significant improvement from inflammation seen in same region on 12/12/2023. No findings to suggest active Crohn disease. Pt was treated with Dilaudid, droperidol, ketorolac, IVF, diphenhydramine, prochlorperazine, ceftriaxone, and metronidazole. Pt will be admitted to the hospital for treatment and further evaluation of intractable nausea and vomiting in the setting of possible mild diverticulitis and acute UTI. Review of Systems 2 Review of Systems: Nausea, vomiting, diarrhea Abdominal pain Subjective fever and chills Anorexia No chest pain/pressure, palpitations Denies SOB, [facility] Medical History Renal calculus, bilateral Postcoital bleeding Major depression, recurrent, chronic Furuncle Diverticulitis Obesity (BMI 30-39.9) Crohn's colitis Crohns disease of small intestine Crohn's colitis Intractable nausea and vomiting Migraine History of renal cell cancer (~2014) Osteoarthritis of hips, bilateral Depression Crohn's disease Lumbar degenerative disc disease Insomnia Anxiety 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 Family History Father Crohn disease Migraine Cancer Mother HTN (hypertension) Vertigo Cervical cancer Maternal Grandmother HTN (hypertension) Hyperlipidemia Diabetes mellitus Paternal Grandmother Diabetes mellitus Other Mental health problem Surgical History Hx of colonoscopy History of esophagogastroduodenoscopy (EGD) History of removal of calculus of renal pelvis through percutaneous nephrostomy (~10/2015) History of cryosurgery (~04/20/15) History of intestinal surgery History of arthroplasty (~01/2012) Social History Household Members: Family and Children Housing: House Do you presently have visiting nurse or other home services: No Alcohol intake: current Alcohol intake frequency: holidays/special occasions only Patient Tobacco Use Status: Former Tobacco user Tobacco use type: Cigarette Smoked in Last 30 Days: No e-Cigarette/Vaping Use: Former Use Second Hand Smoke Exposure: No Use of substances other than those prescribed or required for medical reasons: No Advance Directives: Yes Advance Directives on File: Yes Advance Directives Date on File: 06/15/22 Do you have a plan to hurt others: No Plan Nutrition Risks: Acute nausea or vomiting x1 week Patient : No service: No Current occupational status: unemployed Gender identity: Female Cognitive needs: No Hearing needs: No Vision needs: Yes (glasses) Meds Allergies Allergy/AdvReac Type Severity Reaction Status Date / Time meperidine [From Demerol] Allergy Severe SWELLING,RASH,THROAT Verified 04/01/24 07:58 CLOSES latex [LATEX] Allergy Mild RASH Verified 04/01/24 07:58 codeine [Codeine] AdvReac Intermediate NAUSEA/VOMITING, Verified 04/01/24 07:58 GI upset/vomiting duloxetine AdvReac Intermediate headaches Verified 04/01/24 07:58 trazodone AdvReac Mild Anxiety Verified 04/01/24 07:58 Fish Containing Products AdvReac Unknown NAUSEA/VOMI Verified 04/01/24 07:58 [Fish Product Derivatives] TING bupropion AdvReac Intermediate increased Uncoded 04/01/24 07:58 headaches Active Medications: Current Medications Ceftriaxone Sodium 2 gm/ (Sodium Chloride) 50 mls @ 100 mls/hr IV ONCE ONE Stop: 04/01/24 14:13 Metronidazole (Flagyl) 500 mg in 100 mls @ 100 mls/hr IV ONCE ONE Stop: 04/01/24 14:43 Home Medications ?Medication ?Instructions ?Recorded ?Confirmed ?Last Taken ?Type dicyclomine 10 mg capsule 10 mg PO QID PRN Gastrointestinal 07/17/22 04/01/24 12/09/22 History Spasms Or Cramping vedolizumab 300 mg intravenous 300 mg IV Q4W 10/16/22 04/01/24 03/27/24 History solution (Entyvio) budesonide 3 mg 9 mg PO DAILY 11/14/22 04/01/24 03/31/24 History capsule,delayed,extended release mesalamine 500 mg capsule,extended 1,000 mg PO QID 11/14/22 04/01/24 03/31/24 History release duloxetine 30 mg capsule,delayed 30 mg PO BID 04/01/24 04/01/24 03/31/24 History release omeprazole 40 mg capsule,delayed 40 mg PO DAILY 04/01/24 04/01/24 03/31/24 History release sumatriptan succinate 50 mg tablet 50 mg PO DAILY MRX1 PRN Migraine 04/01/24 04/01/24 Unknown History Headache zolpidem 12.5 mg tablet,extended 12.5 mg PO Q2D@2200 04/01/24 04/01/24 03/31/24 History release,multiphase cholestyramine (with sugar) 4 gram 4 g PO DAILY PRN Diarrhea 04/02/24 04/02/24 Unknown History oral powder Physical Exam 2 Vital Signs and Narrative: Vital Signs: Last Vital Signs Temp 98.3 F 04/01/24 12:00 Pulse 90 04/01/24 12:00 Resp 18 04/01/24 12:29 BP 138/88 04/01/24 12:00 Pulse Ox 97 04/01/24 12:00 O2 Del Method Room Air 04/01/24 12:00 BMI result Body Mass Index 25.4 Constitutional: Alert, in no acute distress. Mental Status: Oriented to person, place and time. Eyes: Pupils are equal, round, and reactive to light. Ear, Nose, and Throat: Oropharynx clear, mucous membranes moist. Ears and nose without deformities. Trachea midline. Respiratory: Clear to auscultation bilaterally. No wheezing, rales, or rhonchi. Cardiovascular: S1, S2 regular. No murmurs, rubs, or gallops. Gastrointestinal: Abdomen soft, non-distended with diffuse abdominal pain worse in LLQ. Normal bowel sounds. Neurologic: Cranial nerves II-XII are grossly intact bilaterally. No focal neurological deficits. Moves all extremities spontaneously. Skin: Warm, dry. Musculoskeletal: No cyanosis or clubbing. Extremities: No edema. Psychiatric: Pt emotionally labile, tearful at times, crying out. Results Labs 04/02/24 08:41 04/02/24 08:41 Labs: Laboratory Results - last 24 hr 04/01/24 08:19 MCV 89.0 MCH 30.6 MCHC 34.4 RDW 14.6 Plt Count 395 MPV 9.6 Immature Gran % (Auto) 0.7 H Neut % (Auto) 75.8 H Lymph % (Auto) 15.0 L [place] % (Auto) 7.1 Eos % (Auto) 0.8 Baso % (Auto) 0.6 Lymph # (Auto) 1.9 [place] # (Auto) 0.9 Eos # (Auto) 0.1 Baso # (Auto) 0.1 Abs Immat Gran (auto) 0.09 H Absolute Neuts (auto) 9.4 H Absolute Nucleated RBC 0.000 Nucleated RBC % (auto) 0.0 Anion Gap 19 Estim Creat Clear Calc 81.9 Estimated GFR > 60 Random Glucose 149 H Calcium 10.1 Total Bilirubin 0.4 Direct Bilirubin 0.1 AST 14 ALT 14 Alkaline Phosphatase 93 C-Reactive Protein 1.38 H Total Protein 7.5 Albumin 3.9 Lipase 10 Beta HCG, Quant < 2 Imaging Radiologist's Impressions: Impressions Abdomen/Pelvis CT 04/01/24 10:57 IMPRESSION: * No evidence of bowel obstruction. * Pancolonic diverticulosis. Mild pericolonic fat stranding in region of transition from distal descending to proximal sigmoid colon is suggestive of mild diverticulitis. However, this represents significant improvement from the inflammation seen in this same region on 12/12/2023. No abscess. * No findings to suggest active Crohn disease. * There is a septated cyst of the posterior interpolar region of the right kidney. This is considered a Bosniak category 2F lesion. Recommend imaging follow-up in 12 months to ensure stability (e.g., renal MRI performed without and with IV contrast). Assessment and Plan (1) Intractable nausea and vomiting: Status: Acute (2) UTI (urinary tract infection): Status: Acute Plan Pt is a 48-year-old female with a PMH significant for?Crohn's disease with hx of colonic fistula, diverticulitis, renal cell carcinoma, lumbar degenerative disc disease, migraines, bilateral osteoarthritis of the hips, anxiety, and depression who presents to the ED for evaluation of abdominal pain and intractable nausea and vomiting. Pt will be admitted to the hospital for treatment and further evaluation of intractable nausea and vomiting in the setting of possible mild diverticulitis and acute UTI. Intractable nausea, vomiting, and diarrhea Patient with intractable N/V/D, increased abdominal pain, CT showing mild diverticulitis improved over prior Unclear etiology: ?Diverticulitis versus gastroenteritis versus UTI Patient meets sepsis criteria: Tachypnea, leukocytosis; initial lactic acid 2.3 Patient given IVF and started on broad-spectrum antibiotics in the ED Will cover with ceftriaxone and metronidazole, started 04/01/2024 Patient given droperidol, Compazine Will treat nausea with ondansetron, Haldol x1 dose Will check C diff, stool studies NPO, advance diet as tolerated Will place on maitenance fluids Follow CBC, cultures UTI Possibly secondary from rectn cervical biopsy Pt being covered by ceftriaxone above, started 04/01/2024 Follow cultures Renal cyst CT found septated cyst on posterior interpolar region of right kidney Recommendation is for follow-up in 12 months with renal MRI wo/w contrast to ensure stability Crohn's disease Likely without acute exacerbation CRP mildly elevated at 1.38 Will check ESR Continue home meds HTN Continue home meds Mood disorder Continue home meds Will give diazepam 5mg IV if pt cannot tolerate p.o. Full Code Attending:?Dr. Tello DVT Prophylaxis: Lovenox Pt will require a hospitalization of at least two nights for treatment of?intractable nausea and vomiting in the setting acute UTI and possible mild diverticulitis with sepsis. Given that patient cannot tolerate either food or medication by mouth, patient will require hospitalization for administration of IV fluids and IV medications, including antibiotics, antiemetics, and analgesics. Quality Stroke Does the patient have a stroke diagnosis?: No VTE Prior VTE?: No VTE Risk Level:: Medical - moderate - high VTE Device Contraindication: Treatment Not Indicated VTE Drug Contraindication: N/A - Med Ordered
[2024-04-01 14:19] LABS: Appearance Urine Clear; Color Urine Yellow; Glucose Urine UA Negative (Negative); Leukocyte Esterase Urine Negative (Negative); Nitrite Urine Positive (Negative); Specific Gravity - Urine >= 1.030 (1.005-1.025); UMIC TRIGGER UACC YES; Urine Blood Negative (Negative); Urine Ketones 15 mg/dL (Negative); Urine Protein 30 (1+) mg/dL (Neg-Trace)
[2024-04-01 14:30] LABS: Bacteria Urine 4+ (None Seen); Hyaline Casts Urine 0-2 /LPF (0-2); RBC Urine 0-2 /HPF (0-2); Squamous Epithelial Cell Urine 0-2 /HPF (0-2); UACC Culture Trigger YES; WBC Urine 0-5 /HPF (0-5)
[2024-04-01] MEDS: cefTRIAXone sodium 2 GM in 0.9 % Sodium Chloride 50 ML IV (14:40)
[2024-04-01 14:45] LABS: Erythrocyte Sedimentation Rate 24 MM/HR (0-20)
[2024-04-01 15:01] LABS: Lactic Acid 2.3 mmol/L (0.5-2.0)
[2024-04-01] MEDS: LORazepam 1 MG TABLET PO (16:03)
[2024-04-01] MEDS: metroNIDAZOLE/NS 500 MG/100 ML PIGGYBACK 100 MG IV ×2 (16:03→23:32)
--- NOTE | 2024-04-01 16:09 | PM.EVENT ---
Event Note Date of Service: 04/01/24 Event Note: GI patient seen and examined consult dictated Agree with present management for acute diverticulitis if worsening symptoms, repeat ct and surgical consultation Time Spent With Patient Time: Total time managing care of this patient today ____ minutes.
--- NOTE | 2024-04-01 16:32 | PC.NURSE ---
delay in abx d/t pt difficulty stick - tech at bedside attempting cultures and lactic, pt re educated numerous time on trying to keep arm straight. pt continues to be uncomfortable in bed - pt attempting to sleep on floor of room, behaviour discouraged d/t safety concerns. medications improved abd pain and nausea for ~ 1-2hr w pt waking up w increased anxiety/pain/nausea. attempted ice chips and PO ativan w pt but pt had episode of large quality of emesis afterwards. admitting provider aware.
[2024-04-01 16:42] LABS: Reflex Lactate? Lactic Acid Added
[2024-04-01 17:22] LABS: ~Lactic Acid-LAB USE ONLY 1.4 mmol/L (0.5-2.0)
[2024-04-01] MEDS: Enoxaparin Sodium 40 MG/0.4 ML SYRINGE SUBCUT (17:34)
[2024-04-01] MEDS: Haloperidol Lactate 5 MG/ML VIAL 2.5 MG IM (17:35)
[2024-04-01] MEDS: diazePAM 10 MG/2 ML CARTRIDGE 5 MG IVPUSH (18:18)
--- NOTE | 2024-04-01 18:21 | PHA.MEDREC ---
Pharmacy Consult ? Medication Reconciliation Pharmacy has completed the medication reconciliation.
--- NOTE | 2024-04-01 20:12 | PC.NURSE ---
pt reports pain resolved when previously medicated. upon ambulating to bathroom and return to room pt reports 8/10 r. sided abd pain radiating to back; abd pain has been consistent however back pain is new. will attempt prn. aware.
[2024-04-01] MEDS: 0.9 % Sodium Chloride 1,000 ML 100 ML IVCONT (20:26)
[2024-04-01] MEDS: ondansetron HCL 4 MG/2 ML VIAL IVPUSH (20:26)
--- NOTE | 2024-04-01 20:27 | PC.NURSE ---
morphine order d/c after dose given by this RN per Dr. Daniel Moore. per Dr. Daniel Moore continue with this dose administration and reassess pain. new prn order for Dilaudid following.
[2024-04-01] MEDS: 0.9 % Sodium Chloride Flush 3 ML SYRINGE IVFLUSH (23:32)
--- NOTE | 2024-04-01 23:55 | PC.NURSE ---
This junior technical writer assumed care of this Pt at 2100. Pt A&Ox3, reports effectiveness of pain med given by pervious RN. IV fluids running per JAN. Pt reports dry mouth, mouth swab given with + effect, Pt aware of NPO status. Pt ambulated to BR independently with steady gait. Plan of care on going.
[2024-04-02] VITALS (7 sets, daily range): BP systolic 123–142; BP diastolic 61–88; PULSE 60–92; RESP 16–20; TEMP 36.2–37; O2SAT 98
[2024-04-02] MEDS: HYDROmorphone HCl 1 MG/ML SYRINGE IVPUSH ×5 (00:16→21:58)
--- NOTE | 2024-04-02 01:56 | CONS_ITS ---
DATE OF SERVICE: 04/01/2024 REFERRING PHYSICIAN: Dr. Miranda REASON FOR CONSULTATION: Diverticulitis and abdominal pain. HISTORY OF PRESENT ILLNESS: The patient is a 48-year-old woman, who was admitted to the hospital after presenting to the emergency room this morning with complaints of abdominal pain. She reports abdominal pain beginning approximately 2 to 3 days ago, which became associated with nausea and vomiting. She was concerned about a possible obstruction and came to the emergency department. She does have a history of Crohn disease involving the ileum, left colon, and rectum with perianal area disease as well. She also has had diverticulitis in the past and was evaluated in the emergency department where she complained of severe pain. Laboratory studies were obtained, which are reviewed showing an elevated white blood cell count. Imaging studies were also obtained, which are interpreted as showing uncomplicated diverticulitis involving the distal descending/proximal sigmoid colon. She has been started on antibiotics and admitted to the hospital. PAST MEDICAL HISTORY: 1. Crohn disease for approximately 23 years with ileal, left colon, rectal, and perianal involvement. She has had treatment with a variety of medications including mesalamine, Humira, and is currently on Entyvio. She has also been on steroids. Last colonoscopy was in July of 2019 showing active disease involving the ileum. 2. Diverticulitis. 3. Renal cell carcinoma. 4. Disc disease. 5. Migraine headaches. 6. Osteoarthritis. 7. Anxiety/depression. CURRENT MEDICATIONS: List is reviewed in the chart. ALLERGIES: MULTIPLE MEDICATION ALLERGIES ARE REVIEWED. FAMILY HISTORY: This is reviewed with the patient and is positive for Crohn disease in her father. SOCIAL HISTORY: There is no current tobacco, alcohol, or substance abuse. She has been under stress at home. PAST SURGICAL HISTORY: Includes colonoscopy, arthroplasty, nephrostomy tube, and upper endoscopy. REVIEW OF SYSTEMS: SKIN: No pruritus. HEENT: Negative. CARDIOPULMONARY: She denies shortness of breath or chest pain. GASTROINTESTINAL: As above. GENITOURINARY: Negative. NEUROPSYCHIATRIC: Negative. PHYSICAL EXAMINATION: GENERAL: Shows anxious female who is quite tearful. VITAL SIGNS: Reviewed in electronic medical record and are stable. She is afebrile. SKIN: Anicteric. HEENT: Shows no scleral icterus. NECK: Without lymphadenopathy or thyromegaly. LUNGS: Clear. HEART: Shows a regular rate and rhythm. S1, S2. No murmur. ABDOMEN: Soft. There is some tenderness to palpation over the left lower quadrant and right lower quadrant. There is no guarding or rebound. Bowel sounds are present. No organomegaly is noted. EXTREMITIES: Without edema. LABORATORY DATA AND IMAGING STUDIES: Reviewed. IMPRESSION: 1. Crohn disease. 2. Diverticulitis. She does not appear to have active Crohn disease at this time and can continue her present regimen. I agree with treating her with antibiotics for her uncomplicated diverticulitis. Supportive care for her nausea and vomiting as well. Would be recommended if she has worsening symptoms, I would consider repeat CT scan and surgical consultation. Thanks for asking me to see her. I will follow her in the hospital with you. MD LUIS Grant/TALIB / [phone]
[2024-04-02] MEDS: 0.9 % Sodium Chloride 1,000 ML 100 ML IVCONT ×2 (04:14→16:26)
[2024-04-02] MEDS: ondansetron HCL 4 MG/2 ML VIAL IVPUSH ×3 (04:26→21:59)
[2024-04-02] MEDS: metroNIDAZOLE/NS 500 MG/100 ML PIGGYBACK 100 MG IV ×2 (06:13→15:10)
[2024-04-02 09:08] LABS: Hematocrit 38.1 % (37.0-47.0); Hemoglobin 12.6 g/dl (12.0-16.0); Mean Corpuscular HGB Conc 33.1 g/dl (31.0-35.0); Mean Corpuscular Hemoglobin 30.9 pg (27.0-33.0); Mean Corpuscular Volume 93.4 fL (80.0-98.0); Mean Platelet Volume 9.8 fL (9.4-12.3); Platelet Count 264 X10*3/uL (160-400); Red Blood Count 4.08 X10*6/uL (4.20-5.50); Red Cell Distribution Width 14.9 % (11.0-16.0); White Blood Count 8.5 X10*3/uL (4.8-10.8)
[2024-04-02] MEDS: LORazepam 1 MG TABLET PO ×3 (09:17→20:22)
[2024-04-02] MEDS: Omeprazole 40 MG CAPSULE.DR PO (09:17)
[2024-04-02] MEDS: DULoxetine HCl 30 MG CAPSULE.DR PO ×2 (09:17→20:22)
[2024-04-02 09:18] LABS: Anion Gap 14 (12-20); Blood Urea Nitrogen 7 mg/dL (9-16); Calcium 8.7 mg/dL (8.4-10.2); Carbon Dioxide 20 mmol/L (22-29); Chloride 109 mmol/L (96-108); Creatinine Clr Calc Pharmacy 102.4; Estimated Glomerular Filt Rate > 60; Glucose Random 90 mg/dL (60-115); Potassium 3.3 mmol/L (3.3-5.1); Sodium 140 mmol/L (135-145)
--- NOTE | 2024-04-02 11:50 | PC.NURSE ---
Assume care of this pt at 0800, she is alert and oriented X3, medicated as ordered for pain and reports pain relief. Family will bring in pt's own Mesalamine. Lungs are clear and abd is soft and tender to palpation. Skin is warm and dry. IVF infusing as ordered. ABD X-ray completed at bedside.
--- NOTE | 2024-04-02 12:04 | MHC.CM.PN ---
IMM delivered. Patient is from home w/ partner and 2 teenage sons. Functionally independent. Denies use of services or DME. PCP Jaswant Frank MD HCP on file and verified DP: Goal is home self care via private transport. Do not anticipate the need for services. CM will continue to follow.
--- NOTE | 2024-04-02 12:09 | PM.CNGS ---
History of Present Illness Consult details Consult date: 04/02/24 Narrative: Patient is a 48-year-old male with a very involved in complex past surgical history which includes inflammatory bowel disease/Crohn's and diverticulitis along with chronic abdominal pain. Patient has had multiple admissions and hospital evaluations for these symptoms. She now presents with a 2 week history of nausea, vomiting, diarrhea, and cramping abdominal pain. Evaluation and workup including CT scan demonstrated findings suggestive of mild diverticulitis but no other gross intra-abdominal pathology or active Crohn's disease. Patient has been followed by her warp placer and receives periodic immunologic immunosuppressive/immuno modulator antibody therapy Chart was reviewed and patient evaluated PMFSH Past Medical History Medical History Renal calculus, bilateral Postcoital bleeding Major depression, recurrent, chronic Furuncle Diverticulitis Obesity (BMI 30-39.9) Crohn's colitis Crohns disease of small intestine Crohn's colitis Intractable nausea and vomiting Migraine History of renal cell cancer (~2014) Osteoarthritis of hips, bilateral Depression Crohn's disease Lumbar degenerative disc disease Insomnia Anxiety 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 Family History Family History Father Crohn disease Migraine Cancer Mother HTN (hypertension) Vertigo Cervical cancer Maternal Grandmother HTN (hypertension) Hyperlipidemia Diabetes mellitus Paternal Grandmother Diabetes mellitus Other Mental health problem Surgical History Surgical History Hx of colonoscopy History of esophagogastroduodenoscopy (EGD) History of removal of calculus of renal pelvis through percutaneous nephrostomy (~10/2015) History of cryosurgery (~04/20/15) History of intestinal surgery History of arthroplasty (~01/2012) Social History Social History Household Members: Family and Children Housing: House Do you presently have visiting nurse or other home services: No Alcohol intake: current Alcohol intake frequency: holidays/special occasions only Patient Tobacco Use Status: Former Tobacco user Tobacco use type: Cigarette Smoked in Last 30 Days: No e-Cigarette/Vaping Use: Former Use Second Hand Smoke Exposure: No Use of substances other than those prescribed or required for medical reasons: No Advance Directives: Yes Advance Directives on File: Yes Advance Directives Date on File: 06/15/22 Do you have a plan to hurt others: No Plan Nutrition Risks: Acute nausea or vomiting x1 week Patient : No service: No Current occupational status: unemployed Gender identity: Female Cognitive needs: No Hearing needs: No Vision needs: Yes (glasses) Meds Allergies Allergy/AdvReac Type Severity Reaction Status Date / Time meperidine [From Demerol] Allergy Severe SWELLING,RASH,THROAT Verified 04/01/24 07:58 CLOSES latex [LATEX] Allergy Mild RASH Verified 04/01/24 07:58 codeine [Codeine] AdvReac Intermediate NAUSEA/VOMITING, Verified 04/01/24 07:58 GI upset/vomiting duloxetine AdvReac Intermediate headaches Verified 04/01/24 07:58 trazodone AdvReac Mild Anxiety Verified 04/01/24 07:58 Fish Containing Products AdvReac Unknown NAUSEA/VOMI Verified 04/01/24 07:58 [Fish Product Derivatives] TING bupropion AdvReac Intermediate increased Uncoded 04/01/24 07:58 headaches Active Medications: Current Medications Acetaminophen (Acetaminophen 325 Mg Tablet) 650 mg PO Q6H PRN PRN Reason: Fever, mild pain, or headache Benzonatate (Benzonatate 100 Mg Capsule) 100 mg PO TID PRN PRN Reason: Cough Calcium Carbonate (Calcium Carbonate 750 Mg Tab.Chew) 750 mg PO Q6H PRN PRN Reason: Heartburn Clonidine HCl (Clonidine Hcl 0.1 Mg Tablet) 0.1 mg PO TID PRN; Protocol PRN Reason: for anxiety Dicyclomine HCl (Dicyclomine Hcl 10 Mg Capsule) 10 mg PO QID PRN PRN Reason: Gastrointestinal Spasms Or Cramping Duloxetine HCl (Duloxetine Hcl 30 Mg Capsule.Dr) 30 mg PO BID [facility] Last Admin: 04/02/24 09:17 Dose: 30 mg Enoxaparin Sodium (Enoxaparin Sodium 40 Mg/0.4 Ml Syringe) 40 mg SUBCUT Q24H [facility] Last Admin: 04/01/24 17:34 Dose: 40 mg Hydromorphone HCl (Hydromorphone Hcl 1 Mg/Ml Syringe) 1 mg IVPUSH Q4H PRN; Protocol PRN Reason: Pain, Severe (Pain Scale 7-10) Last Admin: 04/02/24 09:24 Dose: 1 mg Ceftriaxone Sodium 1 gm/ (Sodium Chloride) 50 mls @ 100 mls/hr IV Q24H [facility] Metronidazole (Flagyl) 500 mg in 100 mls @ 100 mls/hr IV Q8H [facility] Last Infusion: 04/02/24 08:00 Dose: Infused Sodium Chloride (Ns) 1,000 mls @ 100 mls/hr IVCONT .Q10H [facility] Last Admin: 04/02/24 04:14 Dose: 100 mls/hr Lorazepam (Lorazepam 1 Mg Tablet) 1 mg PO TID [facility] Last Admin: 04/02/24 09:17 Dose: 1 mg Magnesium Hydroxide (Milk Of Magnesia 30 Ml Oral.Susp) 30 ml PO DAILY PRN PRN Reason: Constipation Melatonin (Melatonin 3 Mg Tablet) 6 mg PO BEDTIME PRN PRN Reason: Insomnia Non-Formulary Medication (Mesalamine) 1,000 mg PO QID [facility] Non-Formulary Medication (Budesonide) 9 mg PO DAILY [facility] Omeprazole (Omeprazole 40 Mg Capsule.Dr) 40 mg PO DAILY@0630 [facility] Last Admin: 04/02/24 09:17 Dose: 40 mg Ondansetron HCl (Ondansetron Hcl 4 Mg/2 Ml Vial) 4 mg IVPUSH Q8H PRN PRN Reason: Nausea and Vomiting Last Admin: 04/02/24 04:26 Dose: 4 mg Polyethylene Glycol (Polyethylene Glycol 3350 17 Gm Powd.Pack) 17 gm PO DAILY PRN PRN Reason: Constipation Sodium Chloride (0.9 % Sodium Chloride Flush 3 Ml Syringe) 3 ml IVFLUSH QSHIFT [facility] Last Admin: 04/02/24 12:07 Dose: Not Given Sumatriptan Succinate (Sumatriptan Succinate 50 Mg Tablet) 50 mg PO DAILY MRX1 PRN PRN Reason: Migraine Headache Zolpidem Tartrate (Zolpidem Tartrate 5 Mg Tablet) 5 mg PO Q2D@2200 PRN PRN Reason: Insomnia Home Medications ?Medication ?Instructions ?Recorded ?Confirmed ?Last Taken ?Type dicyclomine 10 mg capsule 10 mg PO QID PRN Gastrointestinal 07/17/22 04/01/24 12/09/22 History Spasms Or Cramping vedolizumab 300 mg intravenous 300 mg IV Q4W 10/16/22 04/01/24 03/27/24 History solution (Entyvio) budesonide 3 mg 9 mg PO DAILY 11/14/22 04/01/24 03/31/24 History capsule,delayed,extended release mesalamine 500 mg capsule,extended 1,000 mg PO QID 11/14/22 04/01/24 03/31/24 History release duloxetine 30 mg capsule,delayed 30 mg PO BID 04/01/24 04/01/24 03/31/24 History release omeprazole 40 mg capsule,delayed 40 mg PO DAILY 04/01/24 04/01/24 03/31/24 History release sumatriptan succinate 50 mg tablet 50 mg PO DAILY MRX1 PRN Migraine 04/01/24 04/01/24 Unknown History Headache zolpidem 12.5 mg tablet,extended 12.5 mg PO Q2D@2200 04/01/24 04/01/24 03/31/24 History release,multiphase cholestyramine (with sugar) 4 gram 4 g PO DAILY PRN Diarrhea 04/02/24 04/02/24 Unknown History oral powder Physical Exam Vital Signs: Vital Signs: Last Vital Signs Temp 98.6 F 04/02/24 09:00 Pulse 92 04/02/24 09:00 Resp 16 04/02/24 09:54 BP 142/88 H 04/02/24 09:00 Pulse Ox 98 04/02/24 09:00 O2 Del Method Room Air 04/02/24 09:00 BMI result Body Mass Index 25.4 GI: Other: Abdomen very corpulent, soft, mild left lower quadrant localized tenderness. No evidence of any guarding, rebound, or rigidity. Not an acute abdomen. Results Labs 04/02/24 08:41 04/02/24 08:41 Labs: Abnormal lab results 04/01/24 04/01/24 04/01/24 Range/Units 08:16 13:50 14:38 RBC (4.20-5.50) X10*6/uL ESR 24 H (0-20) MM/HR Chloride (96-108) mmol/L Carbon Dioxide (22-29) mmol/L BUN (9-16) mg/dL Lactic Acid 2.3 H* (0.5-2.0) mmol/L Ur Specific [place] >= 1.030 H (1.005-1.025) Urine Protein 30 (1+) H (Neg-Trace) mg/dL Urine Nitrite Positive H (Negative) 04/02/24 Range/Units 08:41 RBC 4.08 L (4.20-5.50) X10*6/uL ESR (0-20) MM/HR Chloride 109 H (96-108) mmol/L Carbon Dioxide 20 L (22-29) mmol/L BUN 7 L (9-16) mg/dL Lactic Acid (0.5-2.0) mmol/L Ur Specific [place] (1.005-1.025) Urine Protein (Neg-Trace) mg/dL Urine Nitrite (Negative) Short CBC 04/02/24 Range/Units 08:41 WBC 8.5 (4.8-10.8) X10*3/uL Hgb 12.6 (12.0-16.0) g/dl Hct 38.1 (37.0-47.0) % Plt Count 264 D (160-400) X10*3/uL BMP 04/02/24 08:41 Sodium 140 Potassium 3.3 Chloride 109 H Carbon Dioxide 20 L BUN 7 L Creatinine 0.68 Calcium 8.7 D Urine 04/01/24 Range/Units 13:50 Urine Color Yellow Urine Appearance Clear Urine pH 7.0 (5.0-9.0) Ur Specific [place] >= 1.030 H (1.005-1.025) Urine Protein 30 (1+) H (Neg-Trace) mg/dL Urine Glucose (UA) Negative (Negative) mg/dL All other labs normal. Assessment and Plan (1) Diverticulitis: Status: Acute Plan Patient is currently being treated with NPO, IV hydration, and IV antibiotics. She being followed by GI as well. At present, patient has no acute surgical issues. If her diverticular disease continues to be symptomatic, consideration for elective sigmoid resection can be considered. This was discussed with the patient but can be addressed at another time as an outpatient/office setting. Procedures Date of Service Date of Service: 04/02/24
[2024-04-02] MEDS: Ketorolac Tromethamine 15 MG/ML VIAL IVPUSH (12:52)
--- NOTE | 2024-04-02 13:19 | HO.PM.IMPN ---
Subjective Subjective Date of Service: 04/02/24 Interval History: seen and evaluated this morning reporting more pain in her left loin reporting nausea but no vomiting not passing gas Review of Systems Review of Systems: Yes all other systems are reviewed and are negative Physical Exam Vital Signs: Vital Signs: Last Vital Signs Temp 98.6 F 04/02/24 09:00 Pulse 92 04/02/24 09:00 Resp 16 04/02/24 09:54 BP 142/88 H 04/02/24 09:00 Pulse Ox 98 04/02/24 09:00 O2 Del Method Room Air 04/02/24 09:00 BMI result Body Mass Index 25.4 Const: Other: Constitutional : Awake, interactive, not in distress Neck : Normal inspection, Supple Cardiovascular : RRR, no JVP, no lower extremity edema Respiratory : good bilateral air entry, no crackles, wheezes or rhonchi Gastrointestinal: soft, lax, decreased bowel sounds, LLQ tenderness , no surgical signs Skin : Warm, Dry Neurological : Alert & oriented x3, No focal deficit Objective Data Active Medications Acetaminophen (Acetaminophen 325 Mg Tablet) 650 mg PO Q6H PRN PRN Reason: Fever, mild pain, or headache Benzonatate (Benzonatate 100 Mg Capsule) 100 mg PO TID PRN PRN Reason: Cough Calcium Carbonate (Calcium Carbonate 750 Mg Tab.Chew) 750 mg PO Q6H PRN PRN Reason: Heartburn Clonidine HCl (Clonidine Hcl 0.1 Mg Tablet) 0.1 mg PO TID PRN; Protocol PRN Reason: for anxiety Dicyclomine HCl (Dicyclomine Hcl 10 Mg Capsule) 10 mg PO QID PRN PRN Reason: Gastrointestinal Spasms Or Cramping Duloxetine HCl (Duloxetine Hcl 30 Mg Capsule.Dr) 30 mg PO BID [facility] Last Admin: 04/02/24 09:17 Dose: 30 mg Documented By: AARON Enoxaparin Sodium (Enoxaparin Sodium 40 Mg/0.4 Ml Syringe) 40 mg SUBCUT Q24H [facility] Last Admin: 04/01/24 17:34 Dose: 40 mg Documented By: KRISDENChad Hydromorphone HCl (Hydromorphone Hcl 1 Mg/Ml Syringe) 1 mg IVPUSH Q4H PRN; Protocol PRN Reason: Pain, Severe (Pain Scale 7-10) Last Admin: 04/02/24 09:24 Dose: 1 mg Documented By: AARON Ceftriaxone Sodium 1 gm/ (Sodium Chloride) 50 mls @ 100 mls/hr IV Q24H [facility] Metronidazole (Flagyl) 500 mg in 100 mls @ 100 mls/hr IV Q8H [facility] Last Infusion: 04/02/24 08:00 Dose: Infused Documented By: LILLY Sodium Chloride (Ns) 1,000 mls @ 100 mls/hr IVCONT .Q10H [facility] Last Admin: 04/02/24 04:14 Dose: 100 mls/hr Documented By: YULIYA Lorazepam (Lorazepam 1 Mg Tablet) 1 mg PO TID [facility] Last Admin: 04/02/24 09:17 Dose: 1 mg Documented By: AARON Magnesium Hydroxide (Milk Of Magnesia 30 Ml Oral.Susp) 30 ml PO DAILY PRN PRN Reason: Constipation Melatonin (Melatonin 3 Mg Tablet) 6 mg PO BEDTIME PRN PRN Reason: Insomnia Non-Formulary Medication (Mesalamine) 1,000 mg PO QID [facility] Non-Formulary Medication (Budesonide) 9 mg PO DAILY [facility] Omeprazole (Omeprazole 40 Mg Capsule.Dr) 40 mg PO DAILY@0630 [facility] Last Admin: 04/02/24 09:17 Dose: 40 mg Documented By: AARON Ondansetron HCl (Ondansetron Hcl 4 Mg/2 Ml Vial) 4 mg IVPUSH Q8H PRN PRN Reason: Nausea and Vomiting Last Admin: 04/02/24 12:34 Dose: 4 mg Documented By: SHALINI Polyethylene Glycol (Polyethylene Glycol 3350 17 Gm Powd.Pack) 17 gm PO DAILY PRN PRN Reason: Constipation Sodium Chloride (0.9 % Sodium Chloride Flush 3 Ml Syringe) 3 ml IVFLUSH QSHIFT [facility] Last Admin: 04/02/24 12:07 Dose: Not Given Documented By: LILLY Non-Admin Reason: IV Running Sumatriptan Succinate (Sumatriptan Succinate 50 Mg Tablet) 50 mg PO DAILY MRX1 PRN PRN Reason: Migraine Headache Zolpidem Tartrate (Zolpidem Tartrate 5 Mg Tablet) 5 mg PO Q2D@2200 PRN PRN Reason: Insomnia Labs 04/02/24 08:41 04/02/24 08:41 Labs: Laboratory Results - last 24 hr 04/01/24 04/01/24 04/01/24 08:16 13:50 14:38 MCV MCH MCHC RDW Plt Count MPV Absolute Nucleated RBC Nucleated RBC % (auto) ESR 24 H Anion Gap Estim Creat Clear Calc Estimated GFR Random Glucose Lactic Acid 2.3 H* Lactic Acid F/U @ 2Hr Calcium Urine Color Yellow Urine Appearance Clear Urine pH 7.0 Ur Specific [place] >= 1.030 H Urine Protein 30 (1+) H Urine Glucose (UA) Negative Urine Ketones 15 Urine Blood Negative Urine Nitrite Positive H Ur Leukocyte Esterase Negative Urine RBC 0-2 Urine WBC 0-5 Ur Squamous Epith Cells 0-2 Urine Bacteria 4+ Hyaline Casts 0-2 04/01/24 04/02/24 16:59 08:41 MCV 93.4 MCH 30.9 MCHC 33.1 RDW 14.9 Plt Count 264 D MPV 9.8 Absolute Nucleated RBC 0.000 Nucleated RBC % (auto) 0.0 ESR Anion Gap 14 Estim Creat Clear Calc 102.4 Estimated GFR > 60 Random Glucose 90 Lactic Acid Lactic Acid F/U @ 2Hr 1.4 Calcium 8.7 D Urine Color Urine Appearance Urine pH Ur Specific [place] Urine Protein Urine Glucose (UA) Urine Ketones Urine Blood Urine Nitrite Ur Leukocyte Esterase Urine RBC Urine WBC Ur Squamous Epith Cells Urine Bacteria Hyaline Casts Microbiology Microbiology Results: Microbiology 04/01/24 14:38 Urine Culture - Preliminary Urine clean catch - Urine madsen top Gram negative izzy Assessment and Plan (1) UTI (urinary tract infection): Status: Acute (2) Vomiting: Status: Acute (3) Diverticulitis: Status: Acute Plan an 48 years w hx of Crohns disease w hx of fistula, diverticulosis, hx RCC, migraines, anxiety and depression who presented with abdominal pain, nausea and vomiting. CT scan showing possible Diverticulitis. UA concerning for UTI. Acute Diverticulitis still nauseated, not vomiting now Keep IVF and IV Flagyl and Ceftriaxone GI input appreciated nausea meds prn NPO, advance diet as tolerated Surgery eval Abdominal XR Follow cultures UTI growing GNR On ceftriaxone above Follow cultures Renal cyst CT found septated cyst on posterior interpolar region of right kidney Recommendation is for follow-up in 12 months with renal MRI wo/w contrast to ensure stability Crohn's disease without acute exacerbation Continue home meds HTN Continue home meds Mood disorder Continue home meds Full Code DVT Prophylaxis: Lovenox Pt will require a hospitalization overnight for treatment of?acute diverticulitis and acute UTI pending clinical improvement and ability to tolerate PO Quality Stroke Does the patient have a stroke diagnosis?: No VTE Prior VTE?: No VTE Risk Level:: Medical - moderate - high VTE Device Contraindication: Treatment Not Indicated VTE Drug Contraindication: N/A - Med Ordered
[2024-04-02] MEDS: cefTRIAXone sodium 1 GM in 0.9 % Sodium Chloride 50 ML IV (13:42)
[2024-04-02] MEDS: Prochlorperazine Edisylate 10 MG/2 ML VIAL 5 MG IVPUSH (16:20)
[2024-04-02] MEDS: Enoxaparin Sodium 40 MG/0.4 ML SYRINGE SUBCUT (17:09)
[2024-04-02 21:41] LABS: CDiff Gene PCR POSITIVE (Negative)
[2024-04-02] MEDS: Zolpidem Tartrate 5 MG TABLET PO (21:59)
[2024-04-02 22:29] LABS: CDiff Toxin Negative (Negative)
[2024-04-02 22:30] LABS: CDIFF Internal ctrl Dots and bkg OK (V)
[2024-04-03] MEDS: metroNIDAZOLE/NS 500 MG/100 ML PIGGYBACK 100 MG IV ×4 (00:10→21:17)
[2024-04-03] MEDS: 0.9 % Sodium Chloride Flush 3 ML SYRINGE IVFLUSH (00:11)
[2024-04-03] MEDS: 0.9 % Sodium Chloride 1,000 ML 100 ML IVCONT ×2 (00:12→11:35)
[2024-04-03 02:56] VITALS: BP 134/65; PULSE 63; RESP 16; TEMP 36.2; O2SAT 97
[2024-04-03] MEDS: Dicyclomine HCl 10 MG CAPSULE PO (03:53)
[2024-04-03] MEDS: HYDROmorphone HCl 1 MG/ML SYRINGE IVPUSH ×5 (03:53→21:08)
[2024-04-03] MEDS: Omeprazole 40 MG CAPSULE.DR PO (06:22)
[2024-04-03 06:56] LABS: Hematocrit 36.4 % (37.0-47.0); Hemoglobin 11.9 g/dl (12.0-16.0); Mean Corpuscular HGB Conc 32.7 g/dl (31.0-35.0); Mean Corpuscular Hemoglobin 30.3 pg (27.0-33.0); Mean Corpuscular Volume 92.6 fL (80.0-98.0); Mean Platelet Volume 10.1 fL (9.4-12.3); Platelet Count 245 X10*3/uL (160-400); Red Blood Count 3.93 X10*6/uL (4.20-5.50); Red Cell Distribution Width 14.5 % (11.0-16.0); White Blood Count 7.1 X10*3/uL (4.8-10.8)
[2024-04-03] MEDS: ondansetron HCL 4 MG/2 ML VIAL IVPUSH ×3 (07:17→22:25)
[2024-04-03 07:22] LABS: Anion Gap 16 (12-20); Blood Urea Nitrogen 5 mg/dL (9-16); Calcium 8.6 mg/dL (8.4-10.2); Carbon Dioxide 19 mmol/L (22-29); Chloride 106 mmol/L (96-108); Creatinine Clr Calc Pharmacy 122.1; Estimated Glomerular Filt Rate > 60; Glucose Random 69 mg/dL (60-115); Potassium 3.1 mmol/L (3.3-5.1); Sodium 138 mmol/L (135-145)
[2024-04-03 07:23] VITALS: BP 172/93; PULSE 62; RESP 17; TEMP 36; O2SAT 93
--- NOTE | 2024-04-03 08:34 | P.PNGS_ITS ---
Subjective Subjective Date of Service: 04/03/24 Interval history: Abdominal symptoms are moderately improved. Some nausea feeling this morning. Patient passing flatus and loose stool. C diff culture positive this morning. ? is patient a carrier or this true C difficile infection. White count 7.1, H&H stable Physical Exam 2 Vital Signs: Vital Signs: Last Vital Signs Temp 96.8 F 04/03/24 07:23 Pulse 62 04/03/24 07:23 Resp 17 04/03/24 07:23 BP 172/93 H 04/03/24 07:23 Pulse Ox 93 04/03/24 07:23 O2 Del Method Room Air 04/03/24 07:23 BMI result Body Mass Index 25.4 GI: Other: Abdomen corpulent, soft, mild left lower quadrant tenderness but no evidence of any guarding, rebound, rigidity. Objective Data Active Medications Acetaminophen (Acetaminophen 325 Mg Tablet) 650 mg PO Q6H PRN PRN Reason: Fever, mild pain, or headache Benzonatate (Benzonatate 100 Mg Capsule) 100 mg PO TID PRN PRN Reason: Cough Calcium Carbonate (Calcium Carbonate 750 Mg Tab.Chew) 750 mg PO Q6H PRN PRN Reason: Heartburn Clonidine HCl (Clonidine Hcl 0.1 Mg Tablet) 0.1 mg PO TID PRN; Protocol PRN Reason: for anxiety Dicyclomine HCl (Dicyclomine Hcl 10 Mg Capsule) 10 mg PO QID PRN PRN Reason: Gastrointestinal Spasms Or Cramping Last Admin: 04/03/24 03:53 Dose: 10 mg Documented By: SHELLY Duloxetine HCl (Duloxetine Hcl 30 Mg Bhavesh.) 30 mg PO BID [facility] Last Admin: 04/02/24 20:22 Dose: 30 mg Documented By: SHELLY Enoxaparin Sodium (Enoxaparin Sodium 40 Mg/0.4 Ml Syringe) 40 mg SUBCUT Q24H [facility] Last Admin: 04/02/24 17:09 Dose: 40 mg Documented By: CHENG Hydromorphone HCl (Hydromorphone Hcl 1 Mg/Ml Syringe) 1 mg IVPUSH Q4H PRN; Protocol PRN Reason: Pain, Severe (Pain Scale 7-10) Last Admin: 04/03/24 08:04 Dose: 1 mg Documented By: HO.GRAZIC Ceftriaxone Sodium 1 gm/ (Sodium Chloride) 50 mls @ 100 mls/hr IV Q24H [facility] Last Infusion: 04/02/24 15:56 Dose: Infused Documented By: CHENG Metronidazole (Flagyl) 500 mg in 100 mls @ 100 mls/hr IV Q8H [facility] Last Infusion: 04/03/24 07:26 Dose: Infused Documented By: CHENG Sodium Chloride (Ns) 1,000 mls @ 100 mls/hr IVCONT .Q10H [facility] Last Admin: 04/03/24 00:12 Dose: 100 mls/hr Documented By: SHELLY Lorazepam (Lorazepam 1 Mg Tablet) 1 mg PO TID [facility] Last Admin: 04/02/24 20:22 Dose: 1 mg Documented By: SHELLY Magnesium Hydroxide (Milk Of Magnesia 30 Ml Oral.Susp) 30 ml PO DAILY PRN PRN Reason: Constipation Melatonin (Melatonin 3 Mg Tablet) 6 mg PO BEDTIME PRN PRN Reason: Insomnia Patient Own ( Mesalamine 500 Mg Capsule, Extended Release) 1,000 mg PO QID [facility] Last Admin: 04/02/24 20:21 Dose: 1,000 mg Documented By: SHELLY Patient Own ( Budesonide 3 Mg Capsule,Delayed, Extend.Release) 9 mg PO DAILY [facility] Omeprazole (Omeprazole 40 Mg Capsule.Dr) 40 mg PO DAILY@0630 [facility] Last Admin: 04/03/24 06:22 Dose: 40 mg Documented By: SHELLY Ondansetron HCl (Ondansetron Hcl 4 Mg/2 Ml Vial) 4 mg IVPUSH Q8H PRN PRN Reason: Nausea and Vomiting Last Admin: 04/03/24 07:17 Dose: 4 mg Documented By: CHENG Polyethylene Glycol (Polyethylene Glycol 3350 17 Gm Powd.Pack) 17 gm PO DAILY PRN PRN Reason: Constipation Sodium Chloride (0.9 % Sodium Chloride Flush 3 Ml Syringe) 3 ml IVFLUSH QSHIFT [facility] Last Admin: 04/03/24 00:11 Dose: 3 ml Documented By: SHELLY Sumatriptan Succinate (Sumatriptan Succinate 50 Mg Tablet) 50 mg PO DAILY MRX1 PRN PRN Reason: Migraine Headache Vancomycin HCl (Vancomycin Hcl 125 Mg Capsule) 125 mg PO Q6H [facility] Zolpidem Tartrate (Zolpidem Tartrate 5 Mg Tablet) 5 mg PO Q2D@2200 PRN PRN Reason: Insomnia Last Admin: 04/02/24 21:59 Dose: 5 mg Documented By: SHELLY Labs 04/03/24 05:45 04/03/24 05:45 Labs: Laboratory Results - last 24 hr 04/02/24 04/02/24 04/03/24 08:41 19:39 05:45 MCV 93.4 92.6 MCH 30.9 30.3 MCHC 33.1 32.7 RDW 14.9 14.5 Plt Count 264 D 245 MPV 9.8 10.1 Absolute Nucleated RBC 0.000 0.000 Nucleated RBC % (auto) 0.0 0.0 Anion Gap 14 16 Estim Creat Clear Calc 102.4 122.1 Estimated GFR > 60 > 60 Random Glucose 90 69 Calcium 8.7 D 8.6 C. difficile Tox B Gene POSITIVE A* C. difficile Toxin A&B Negative C. difficile Interpret SEE NOTE Microbiology Microbiology Results: Microbiology 04/01/24 14:38 Blood Culture - Preliminary Blood - Venous No growth after 24 hours. 04/01/24 14:38 Blood Culture - Preliminary Blood - Venous No growth after 24 hours. 04/01/24 14:38 Urine Culture - Preliminary Urine clean catch - Urine madsen top Gram negative izzy Procedures Date of Service Date of Service: 04/03/24 Progress Note: A&P Assessment and plan (1) Vomiting: Status: Acute (2) Diverticulitis: Status: Acute (3) C. difficile diarrhea: Status: Acute Plan At present, no acute surgical issues. C difficile management per hospitalist/GI team. We will follow p.r.n. Time Spent With Patient Time: Total time managing care of this patient today ____ minutes. Quality Stroke Does the patient have a stroke diagnosis?: No VTE Prior VTE?: No VTE Risk Level:: Medical - moderate - high VTE Device Contraindication: Treatment Not Indicated VTE Drug Contraindication: N/A - Med Ordered
[2024-04-03] MEDS: vancomycin HCL 125 MG CAPSULE PO ×3 (09:05→21:08)
[2024-04-03] MEDS: LORazepam 1 MG TABLET PO ×3 (09:05→21:08)
[2024-04-03] MEDS: DULoxetine HCl 30 MG CAPSULE.DR PO ×2 (09:05→21:08)
--- NOTE | 2024-04-03 10:44 | MHC.CM.PN ---
PT LIVES ALONE HAS NO SERVICES WILL BE STYING AT [facility] WHEN DCD HAS OWN RIDE HOME DC PLAN HOME
--- NOTE | 2024-04-03 11:05 | P.PNIM_ITS ---
Subjective Subjective Date of Service: 04/03/24 Interval History: seen and evaluated this morning pain better controlled Tolerating ice chips No fever or chills Moving bowels Review of Systems Review of Systems: Yes all other systems are reviewed and are negative Physical Exam 2 Vital Signs: Vital Signs: Last Vital Signs Temp 96.8 F 04/03/24 07:23 Pulse 62 04/03/24 07:23 Resp 17 04/03/24 07:23 BP 172/93 H 04/03/24 07:23 Pulse Ox 93 04/03/24 07:23 O2 Del Method Room Air 04/03/24 07:23 BMI result Body Mass Index 25.4 Const: Other: Constitutional : Awake, interactive, not in distress Neck : Normal inspection, Supple Cardiovascular : RRR, no JVP, no lower extremity edema Respiratory : good bilateral air entry, no crackles, wheezes or rhonchi Gastrointestinal: soft, lax, improved bowel sounds, no significant LLQ tenderness Skin : Warm, Dry Neurological : Alert & oriented x3, No focal deficit Objective Data Active Medications Acetaminophen (Acetaminophen 325 Mg Tablet) 650 mg PO Q6H PRN PRN Reason: Fever, mild pain, or headache Benzonatate (Benzonatate 100 Mg Capsule) 100 mg PO TID PRN PRN Reason: Cough Calcium Carbonate (Calcium Carbonate 750 Mg Tab.Chew) 750 mg PO Q6H PRN PRN Reason: Heartburn Clonidine HCl (Clonidine Hcl 0.1 Mg Tablet) 0.1 mg PO TID PRN; Protocol PRN Reason: for anxiety Dicyclomine HCl (Dicyclomine Hcl 10 Mg Capsule) 10 mg PO QID PRN PRN Reason: Gastrointestinal Spasms Or Cramping Last Admin: 04/03/24 03:53 Dose: 10 mg Documented By: SHELLY Duloxetine HCl (Duloxetine Hcl 30 Mg Capsule.Dr) 30 mg PO BID [facility] Last Admin: 04/03/24 09:05 Dose: 30 mg Documented By: CHENG Enoxaparin Sodium (Enoxaparin Sodium 40 Mg/0.4 Ml Syringe) 40 mg SUBCUT Q24H [facility] Last Admin: 04/02/24 17:09 Dose: 40 mg Documented By: CHENG Hydromorphone HCl (Hydromorphone Hcl 1 Mg/Ml Syringe) 1 mg IVPUSH Q4H PRN; Protocol PRN Reason: Pain, Severe (Pain Scale 7-10) Last Admin: 04/03/24 08:04 Dose: 1 mg Documented By: CHEGN Ceftriaxone Sodium 1 gm/ (Sodium Chloride) 50 mls @ 100 mls/hr IV Q24H [facility] Last Infusion: 04/02/24 15:56 Dose: Infused Documented By: CHENG Metronidazole (Flagyl) 500 mg in 100 mls @ 100 mls/hr IV Q8H [facility] Last Infusion: 04/03/24 07:26 Dose: Infused Documented By: CHENG Sodium Chloride (Ns) 1,000 mls @ 100 mls/hr IVCONT .Q10H [facility] Last Admin: 04/03/24 00:12 Dose: 100 mls/hr Documented By: SHELLY Lorazepam (Lorazepam 1 Mg Tablet) 1 mg PO TID [facility] Last Admin: 04/03/24 09:05 Dose: 1 mg Documented By: CHENG Magnesium Hydroxide (Milk Of Magnesia 30 Ml Oral.Susp) 30 ml PO DAILY PRN PRN Reason: Constipation Melatonin (Melatonin 3 Mg Tablet) 6 mg PO BEDTIME PRN PRN Reason: Insomnia Patient Own ( Mesalamine 500 Mg Capsule, Extended Release) 1,000 mg PO QID [facility] Last Admin: 04/03/24 09:06 Dose: 1,000 mg Documented By: CHENG Patient Own ( Budesonide 3 Mg Capsule,Delayed, Extend.Release) 9 mg PO DAILY [facility] Last Admin: 04/03/24 09:06 Dose: 9 mg Documented By: CHENG Omeprazole (Omeprazole 40 Mg Capsule.) 40 mg PO DAILY@0630 [facility] Last Admin: 04/03/24 06:22 Dose: 40 mg Documented By: SHELLY Ondansetron HCl (Ondansetron Hcl 4 Mg/2 Ml Vial) 4 mg IVPUSH Q8H PRN PRN Reason: Nausea and Vomiting Last Admin: 04/03/24 07:17 Dose: 4 mg Documented By: CHENG Polyethylene Glycol (Polyethylene Glycol 3350 17 Gm Powd.Pack) 17 gm PO DAILY PRN PRN Reason: Constipation Sodium Chloride (0.9 % Sodium Chloride Flush 3 Ml Syringe) 3 ml IVFLUSH QSHIFT [facility] Last Admin: 04/03/24 09:10 Dose: Not Given Documented By: CHENG Non-Admin Reason: IV Running Sumatriptan Succinate (Sumatriptan Succinate 50 Mg Tablet) 50 mg PO DAILY MRX1 PRN PRN Reason: Migraine Headache Vancomycin HCl (Vancomycin Hcl 125 Mg Capsule) 125 mg PO Q6H [facility] Last Admin: 04/03/24 09:05 Dose: 125 mg Documented By: CHENG Zolpidem Tartrate (Zolpidem Tartrate 5 Mg Tablet) 5 mg PO Q2D@2200 PRN PRN Reason: Insomnia Last Admin: 04/02/24 21:59 Dose: 5 mg Documented By: COLASR Labs 04/03/24 05:45 04/03/24 05:45 Labs: Laboratory Results - last 24 hr 04/02/24 04/03/24 19:39 05:45 MCV 92.6 MCH 30.3 MCHC 32.7 RDW 14.5 Plt Count 245 MPV 10.1 Absolute Nucleated RBC 0.000 Nucleated RBC % (auto) 0.0 Anion Gap 16 Estim Creat Clear Calc 122.1 Estimated GFR > 60 Random Glucose 69 Calcium 8.6 C. difficile Tox B Gene POSITIVE A* C. difficile Toxin A&B Negative C. difficile Interpret SEE NOTE Microbiology Microbiology Results: Microbiology 04/01/24 14:38 Urine Culture - Final Urine clean catch - Urine madsen top Escherichia coli 04/01/24 14:38 Blood Culture - Preliminary Blood - Venous No growth after 24 hours. 04/01/24 14:38 Blood Culture - Preliminary Blood - Venous No growth after 24 hours. Assessment and Plan (1) UTI (urinary tract infection): Status: Acute (2) Vomiting: Status: Acute (3) Diverticulitis: Status: Acute (4) Clostridioides difficile carrier: Status: Acute Plan an 48 years w hx of Crohns disease w hx of fistula, diverticulosis, hx RCC, migraines, anxiety and depression who presented with abdominal pain, nausea and vomiting. CT scan showing possible Diverticulitis. UA concerning for UTI. Acute Diverticulitis still nauseated, not vomiting now Keep IVF and IV Flagyl and Ceftriaxone GI input appreciated nausea meds prn Clears, advance diet as tolerated Surgery eval appreciated Abdominal XR showing no evidence of obstruction Follow cultures C.Diff carrier Tested positive Vancomycin PO as prophylaxis UTI growing GNR On ceftriaxone above Follow cultures Renal cyst CT found septated cyst on posterior interpolar region of right kidney Recommendation is for follow-up in 12 months with renal MRI wo/w contrast to ensure stability Crohn's disease without acute exacerbation Continue home meds HTN Continue home meds Mood disorder Continue home meds Full Code DVT Prophylaxis: Lovenox Pt will require a hospitalization overnight for treatment of?acute diverticulitis and acute UTI pending clinical improvement and ability to tolerate PO Quality Stroke Does the patient have a stroke diagnosis?: No VTE Prior VTE?: No VTE Risk Level:: Medical - moderate - high VTE Device Contraindication: Treatment Not Indicated VTE Drug Contraindication: N/A - Med Ordered
[2024-04-03] MEDS: Prochlorperazine Edisylate 10 MG/2 ML VIAL 5 MG IVPUSH (11:48)
[2024-04-03] MEDS: cefTRIAXone sodium 1 GM in 0.9 % Sodium Chloride 50 ML IV (13:55)
--- NOTE | 2024-04-03 14:40 | MHC.CM.PN ---
per rounds pt will staying for one more day plan remains home
[2024-04-03 15:18] VITALS: BP 145/72; PULSE 67; RESP 18; TEMP 36.1; O2SAT 97
[2024-04-03] MEDS: Enoxaparin Sodium 40 MG/0.4 ML SYRINGE SUBCUT (16:02)
[2024-04-03 20:00] VITALS: BP 155/82; PULSE 68; RESP 16; TEMP 36; O2SAT 96
[2024-04-03] MEDS: Zolpidem Tartrate 5 MG TABLET PO (21:08)
[2024-04-04] MEDS: HYDROmorphone HCl 1 MG/ML SYRINGE IVPUSH ×6 (02:21→23:40)
[2024-04-04] MEDS: vancomycin HCL 125 MG CAPSULE PO ×5 (02:33→23:39)
[2024-04-04] MEDS: Prochlorperazine Edisylate 10 MG/2 ML VIAL 5 MG IVPUSH ×3 (02:34→19:30)
--- NOTE | 2024-04-04 02:40 | MHC.PIE ---
late entry; 04/03 2120 p; pt c/o nausea. note; prn zofran q8 given by previous shift at 1600. i; dr jaime notified. new order zofran q6 e; will cont to monitor
--- NOTE | 2024-04-04 02:42 | MHC.PIE ---
p; pt c/o nausea. note; prn zofran q6 given at 2200 i; dr jaime notified. new order compazine q4 e; will cont to monitor
[2024-04-04 03:56] VITALS: BP 142/70; PULSE 69; RESP 16; TEMP 36.3; O2SAT 97
[2024-04-04 05:48] LABS: Hematocrit 35.7 % (37.0-47.0); Hemoglobin 11.7 g/dl (12.0-16.0); Mean Corpuscular HGB Conc 32.8 g/dl (31.0-35.0); Mean Corpuscular Hemoglobin 30.2 pg (27.0-33.0); Mean Platelet Volume 9.8 fL (9.4-12.3); Platelet Count 240 X10*3/uL (160-400); Red Blood Count 3.88 X10*6/uL (4.20-5.50); Red Cell Distribution Width 14.2 % (11.0-16.0)
[2024-04-04 06:00] LABS: Anion Gap 16 (12-20); Blood Urea Nitrogen 4 mg/dL (9-16); Calcium 8.6 mg/dL (8.4-10.2); Carbon Dioxide 20 mmol/L (22-29); Chloride 105 mmol/L (96-108); Creatinine Clr Calc Pharmacy 120.1; Estimated Glomerular Filt Rate > 60; Glucose Random 71 mg/dL (60-115); Potassium 3.1 mmol/L (3.3-5.1); Sodium 138 mmol/L (135-145)
[2024-04-04] MEDS: ondansetron HCL 4 MG/2 ML VIAL IVPUSH ×3 (06:48→23:39)
[2024-04-04] MEDS: metroNIDAZOLE/NS 500 MG/100 ML PIGGYBACK 100 MG IV ×3 (06:48→23:46)
[2024-04-04 07:33] VITALS: BP 169/86; PULSE 68; RESP 16; TEMP 36.1; O2SAT 97
[2024-04-04] MEDS: 0.9 % Sodium Chloride Flush 3 ML SYRINGE IVFLUSH ×3 (08:02→23:39)
[2024-04-04] MEDS: Acetaminophen 325 MG TABLET 650 MG PO (08:54)
[2024-04-04] MEDS: LORazepam 1 MG TABLET PO ×3 (08:54→19:29)
[2024-04-04] MEDS: DULoxetine HCl 30 MG CAPSULE.DR PO ×2 (08:54→19:29)
[2024-04-04] MEDS: Dicyclomine HCl 10 MG CAPSULE PO ×2 (10:59→15:21)
--- NOTE | 2024-04-04 12:24 | P.PNIM_ITS ---
Subjective Subjective Date of Service: 04/04/24 Interval History: seen and evaluated this morning pain better controlled reporting mild nausea No fever or chills Moving bowels Review of Systems Review of Systems: Yes all other systems are reviewed and are negative Physical Exam 2 Vital Signs: Vital Signs: Last Vital Signs Temp 97.0 F 04/04/24 07:33 Pulse 68 04/04/24 07:33 Resp 16 04/04/24 07:33 BP 169/86 H 04/04/24 07:33 Pulse Ox 97 04/04/24 07:33 O2 Del Method Room Air 04/04/24 03:56 BMI result Body Mass Index 25.4 Const: Other: Constitutional : Awake, interactive, not in distress Neck : Normal inspection, Supple Cardiovascular : RRR, no JVP, no lower extremity edema Respiratory : good bilateral air entry, no crackles, wheezes or rhonchi Gastrointestinal: soft, lax, improved bowel sounds, no significant LLQ tenderness Skin : Warm, Dry Neurological : Alert & oriented x3, No focal deficit Objective Data Active Medications Acetaminophen (Acetaminophen 325 Mg Tablet) 650 mg PO Q6H PRN PRN Reason: Fever, mild pain, or headache Last Admin: 04/04/24 08:54 Dose: 650 mg Documented By: ANNAMARIA Benzonatate (Benzonatate 100 Mg Capsule) 100 mg PO TID PRN PRN Reason: Cough Calcium Carbonate (Calcium Carbonate 750 Mg Tab.Chew) 750 mg PO Q6H PRN PRN Reason: Heartburn Clonidine HCl (Clonidine Hcl 0.1 Mg Tablet) 0.1 mg PO TID PRN; Protocol PRN Reason: for anxiety Dicyclomine HCl (Dicyclomine Hcl 10 Mg Capsule) 10 mg PO QID PRN PRN Reason: Gastrointestinal Spasms Or Cramping Last Admin: 04/04/24 10:59 Dose: 10 mg Documented By: ANNAMARIA Duloxetine HCl (Duloxetine Hcl 30 Mg Capsule.Dr) 30 mg PO BID [facility] Last Admin: 04/04/24 08:54 Dose: 30 mg Documented By: ANNAMARIA Enoxaparin Sodium (Enoxaparin Sodium 40 Mg/0.4 Ml Syringe) 40 mg SUBCUT Q24H [facility] Last Admin: 04/03/24 16:02 Dose: 40 mg Documented By: CHENG Hydromorphone HCl (Hydromorphone Hcl 1 Mg/Ml Syringe) 1 mg IVPUSH Q4H PRN; Protocol PRN Reason: Pain, Severe (Pain Scale 7-10) Last Admin: 04/04/24 10:54 Dose: 1 mg Documented By: ANNAMARIA Ceftriaxone Sodium 1 gm/ (Sodium Chloride) 50 mls @ 100 mls/hr IV Q24H [facility] Stop: 04/06/24 14:29 Last Infusion: 04/03/24 14:27 Dose: Infused Documented By: GRAZLUIS Metronidazole (Flagyl) 500 mg in 100 mls @ 100 mls/hr IV Q8H [facility] Last Infusion: 04/04/24 07:28 Dose: 0 mls/hr Documented By: ANNAMARIA Lorazepam (Lorazepam 1 Mg Tablet) 1 mg PO TID [facility] Last Admin: 04/04/24 08:54 Dose: 1 mg Documented By: ANNAMARIA Magnesium Hydroxide (Milk Of Magnesia 30 Ml Oral.Susp) 30 ml PO DAILY PRN PRN Reason: Constipation Melatonin (Melatonin 3 Mg Tablet) 6 mg PO BEDTIME PRN PRN Reason: Insomnia Patient Own ( Mesalamine 500 Mg Capsule, Extended Release) 1,000 mg PO QID [facility] Last Admin: 04/04/24 08:55 Dose: 1,000 mg Documented By: ANNAMARIA Patient Own ( Budesonide 3 Mg Capsule,Delayed, Extend.Release) 9 mg PO DAILY [facility] Last Admin: 04/04/24 08:55 Dose: 9 mg Documented By: ANNAMARIA Omeprazole (Omeprazole 40 Mg Capsule.Dr) 40 mg PO DAILY@0630 [facility] Last Admin: 04/04/24 06:49 Dose: Not Given Documented By: PB Non-Admin Reason: Nausea Ondansetron HCl (Ondansetron Hcl 4 Mg/2 Ml Vial) 4 mg IVPUSH Q6H PRN PRN Reason: Nausea and Vomiting Last Admin: 04/04/24 06:48 Dose: 4 mg Documented By: PB Polyethylene Glycol (Polyethylene Glycol 3350 17 Gm Powd.Pack) 17 gm PO DAILY PRN PRN Reason: Constipation Prochlorperazine Edisylate (Prochlorperazine Edisylate 10 Mg/2 Ml Vial) 5 mg IVPUSH Q4H PRN PRN Reason: Nausea and Vomiting Last Admin: 04/04/24 08:01 Dose: 5 mg Documented By: ANNAMARIA Prochlorperazine Edisylate (Prochlorperazine Edisylate 10 Mg/2 Ml Vial) 5 mg IVPUSH BEDTIME PRN PRN Reason: Nausea Sodium Chloride (0.9 % Sodium Chloride Flush 3 Ml Syringe) 3 ml IVFLUSH QSHIFT [facility] Last Admin: 04/04/24 08:02 Dose: 3 ml Documented By: ANNAMARIA Sumatriptan Succinate (Sumatriptan Succinate 50 Mg Tablet) 50 mg PO DAILY MRX1 PRN PRN Reason: Migraine Headache Vancomycin HCl (Vancomycin Hcl 125 Mg Capsule) 125 mg PO Q6H [facility] Last Admin: 04/04/24 08:54 Dose: 125 mg Documented By: ANNAMARIA Zolpidem Tartrate (Zolpidem Tartrate 5 Mg Tablet) 5 mg PO Q2D@2200 PRN PRN Reason: Insomnia Last Admin: 04/03/24 21:08 Dose: 5 mg Documented By: PB Labs 04/04/24 05:01 04/04/24 05:01 Labs: Laboratory Results - last 24 hr 04/02/24 04/04/24 19:39 05:01 MCV 92.0 MCH 30.2 MCHC 32.8 RDW 14.2 Plt Count 240 MPV 9.8 Absolute Nucleated RBC 0.000 Nucleated RBC % (auto) 0.0 Anion Gap 16 Estim Creat Clear Calc 120.1 Estimated GFR > 60 Random Glucose 71 Calcium 8.6 Stl C. cayetanensis PCR Cancelled Stool Rotavirus A PCR Cancelled Stl Adenov F 40/41 PCR Cancelled Stool Astrovirus (PCR) Cancelled Stool Campylobacter PCR Cancelled Stool Cryptosporidium PCR Cancelled Stl Sh Tox Pr E STEC PCR Cancelled Stool E coli O157 PCR Cancelled Stl Enterotoxigenic E PCR Cancelled Stool EPEC (PCR) Cancelled Stool EAEC (PCR) Cancelled Stl E. histolytica PCR Cancelled Stool Giardia Lamblia PCR Cancelled Stl P. shigelloides PCR Cancelled Stool Salmonella PCR Cancelled Stool Sapovirus (PCR) Cancelled Stl Shigella/EIEC PCR Cancelled St Y.enterocolitica PCR Cancelled Stool Vibrio (PCR) Cancelled Stl Vibrio cholerae PCR Cancelled Stl Norovirus GI/GII PCR Cancelled Microbiology Microbiology Results: Microbiology 04/01/24 14:38 Blood Culture - Preliminary Blood - Venous No growth after 48 hours. 04/01/24 14:38 Blood Culture - Preliminary Blood - Venous No growth after 48 hours. 04/01/24 14:38 Urine Culture - Final Urine clean catch - Urine madsen top Escherichia coli Assessment and Plan (1) Clostridioides difficile carrier: Status: Acute (2) UTI (urinary tract infection): Status: Acute (3) Diverticulitis: Status: Acute Plan an 48 years w hx of Crohns disease w hx of fistula, diverticulosis, hx RCC, migraines, anxiety and depression who presented with abdominal pain, nausea and vomiting. CT scan showing possible Diverticulitis. UA concerning for UTI. Acute Diverticulitis tolerating clears, have mild nausea Abdominal XR showing no evidence of obstruction DC IVF Continue IV Flagyl and Ceftriaxone GI input appreciated, continue the same Surgery eval appreciated nausea meds prn Clears, advance diet as tolerated Follow cultures C.Diff carrier Tested positive Vancomycin PO as prophylaxis UTI growing E.Coli On ceftriaxone above Follow cultures Renal cyst CT found septated cyst on posterior interpolar region of right kidney Recommendation is for follow-up in 12 months with renal MRI wo/w contrast to ensure stability Crohn's disease without acute exacerbation Continue home meds HTN Continue home meds Mood disorder Continue home meds Full Code DVT Prophylaxis: Lovenox Pt will require a hospitalization overnight for treatment of?acute diverticulitis and acute UTI pending clinical improvement and ability to tolerate PO Quality Stroke Does the patient have a stroke diagnosis?: No VTE Prior VTE?: No VTE Risk Level:: Medical - moderate - high VTE Device Contraindication: Treatment Not Indicated VTE Drug Contraindication: N/A - Med Ordered
[2024-04-04] MEDS: SUMAtriptan succinate 50 MG TABLET PO (14:16)
[2024-04-04] MEDS: cefTRIAXone sodium 1 GM in 0.9 % Sodium Chloride 50 ML IV (14:16)
[2024-04-04 15:13] VITALS: BP 187/77; PULSE 65; RESP 18; TEMP 36.8; O2SAT 97
[2024-04-04] MEDS: Enoxaparin Sodium 40 MG/0.4 ML SYRINGE SUBCUT (15:21)
[2024-04-04 17:28] VITALS: BP 146/86
[2024-04-04] MEDS: Melatonin 3 MG TABLET 6 MG PO (19:29)
[2024-04-04 20:00] VITALS: BP 148/72; PULSE 69; RESP 16; TEMP 36; O2SAT 97
[2024-04-05] MEDS: cloNIDine HCL 0.1 MG TABLET PO (03:55)
[2024-04-05] MEDS: Acetaminophen 325 MG TABLET 650 MG PO (03:55)
[2024-04-05 04:00] VITALS: BP 152/73; PULSE 80; RESP 18; TEMP 36; O2SAT 97
[2024-04-05] MEDS: Prochlorperazine Edisylate 10 MG/2 ML VIAL 5 MG IVPUSH (04:14)
[2024-04-05] MEDS: HYDROmorphone HCl 1 MG/ML SYRINGE IVPUSH ×4 (04:37→19:27)
[2024-04-05 06:33] LABS: Anion Gap 12 (12-20); Blood Urea Nitrogen 3 mg/dL (9-16); Calcium 9.4 mg/dL (8.4-10.2); Carbon Dioxide 27 mmol/L (22-29); Chloride 103 mmol/L (96-108); Creatinine Clr Calc Pharmacy 112.3; Estimated Glomerular Filt Rate > 60; Glucose Random 80 mg/dL (60-115); Potassium 3.1 mmol/L (3.3-5.1); Sodium 139 mmol/L (135-145)
[2024-04-05] MEDS: metroNIDAZOLE/NS 500 MG/100 ML PIGGYBACK 100 MG IV ×3 (06:34→22:27)
[2024-04-05] MEDS: Omeprazole 40 MG CAPSULE.DR PO (06:38)
[2024-04-05 07:24] VITALS: BP 127/66; PULSE 69; RESP 16; TEMP 36.3; O2SAT 97
[2024-04-05] MEDS: LORazepam 1 MG TABLET PO ×3 (08:15→21:01)
[2024-04-05] MEDS: Dicyclomine HCl 10 MG CAPSULE PO ×3 (08:15→21:07)
[2024-04-05] MEDS: DULoxetine HCl 30 MG CAPSULE.DR PO ×2 (08:15→21:01)
[2024-04-05] MEDS: vancomycin HCL 125 MG CAPSULE PO ×3 (08:15→19:21)
[2024-04-05] MEDS: 0.9 % Sodium Chloride Flush 3 ML SYRINGE IVFLUSH ×3 (08:15→19:28)
[2024-04-05 10:36] LABS: Leukocytes Stool Qualitative NEGATIVE (NEGATIVE)
[2024-04-05 10:49] LABS: CDIFF Internal ctrl Dots and bkg OK (V); CDiff Toxin Negative (Negative)
[2024-04-05] MEDS: Potassium Chloride ER 20 MEQ TAB.ER.PRT 40 MEQ PO (10:56)
[2024-04-05] MEDS: ondansetron HCL 4 MG/2 ML VIAL IVPUSH ×2 (10:56→19:27)
[2024-04-05 11:08] LABS: CDiff Gene PCR POSITIVE (Negative)
[2024-04-05 13:02] LABS: Adenovirus F 40/41 Not Detected (Not Detect.); Astrovirus Not Detected (Not Detect.); Campylobacter Not Detected (Not Detect.); Cryptosporidium Not Detected (Not Detect.); Cyclospora cayetanensis Not Detected (Not Detect.); E. coli EAEC Not Detected (Not Detect.); E. coli EPEC Not Detected (Not Detect.); E. coli ETEC Not Detected (Not Detect.); E. coli STEC Not Detected (Not Detect.); Entamoeba histolytica Not Detected (Not Detect.); Giardia lamblia Not Detected (Not Detect.); Norovirus GI/GII Not Detected (Not Detect.); Plesiomonas shigelloides Not Detected (Not Detect.); Rotavirus A Not Detected (Not Detect.); Salmonella Not Detected (Not Detect.); Sapovirus Not Detected (Not Detect.); Shigella sp./EIEC Not Detected (Not Detect.); Vibrio Not Detected (Not Detect.); Vibrio Cholerae Not Detected (Not Detect.); Yersinia enterocolitica Not Detected (Not Detect.)
--- NOTE | 2024-04-05 13:27 | P.PNIM_ITS ---
Subjective Subjective Date of Service: 04/05/24 Interval History: seen and evaluated this morning pain better controlled less nausea , tolerating diet No fever or chills having diarrhea with no fever or pain Review of Systems Review of Systems: Yes all other systems are reviewed and are negative Physical Exam 2 Vital Signs: Vital Signs: Last Vital Signs Temp 97.3 F 04/05/24 07:24 Pulse 69 04/05/24 07:24 Resp 16 04/05/24 07:24 BP 127/66 04/05/24 07:24 Pulse Ox 97 04/05/24 07:24 O2 Del Method Room Air 04/05/24 07:24 BMI result Body Mass Index 25.4 Const: Other: Constitutional : Awake, interactive, not in distress Neck : Normal inspection, Supple Cardiovascular : RRR, no JVP, no lower extremity edema Respiratory : good bilateral air entry, no crackles, wheezes or rhonchi Gastrointestinal: soft, lax, improved bowel sounds, no significant LLQ tenderness Skin : Warm, Dry Neurological : Alert & oriented x3, No focal deficit Objective Data Active Medications Acetaminophen (Acetaminophen 325 Mg Tablet) 650 mg PO Q6H PRN PRN Reason: Fever, mild pain, or headache Last Admin: 04/05/24 03:55 Dose: 650 mg Documented By: PB Benzonatate (Benzonatate 100 Mg Capsule) 100 mg PO TID PRN PRN Reason: Cough Calcium Carbonate (Calcium Carbonate 750 Mg Tab.Chew) 750 mg PO Q6H PRN PRN Reason: Heartburn Clonidine HCl (Clonidine Hcl 0.1 Mg Tablet) 0.1 mg PO TID PRN; Protocol PRN Reason: for anxiety Last Admin: 04/05/24 03:55 Dose: 0.1 mg Documented By: PB Dicyclomine HCl (Dicyclomine Hcl 10 Mg Capsule) 10 mg PO QID PRN PRN Reason: Gastrointestinal Spasms Or Cramping Last Admin: 04/05/24 12:37 Dose: 10 mg Documented By: ANNAMARIA Duloxetine HCl (Duloxetine Hcl 30 Mg Capsule.) 30 mg PO BID [facility] Last Admin: 04/05/24 08:15 Dose: 30 mg Documented By: ANNAMARIA Enoxaparin Sodium (Enoxaparin Sodium 40 Mg/0.4 Ml Syringe) 40 mg SUBCUT Q24H [facility] Last Admin: 04/04/24 15:21 Dose: 40 mg Documented By: ANNAMARIA Hydromorphone HCl (Hydromorphone Hcl 1 Mg/Ml Syringe) 1 mg IVPUSH Q4H PRN; Protocol PRN Reason: Pain, Severe (Pain Scale 7-10) Last Admin: 04/05/24 10:56 Dose: 1 mg Documented By: ANNAMARIA Metronidazole (Flagyl) 500 mg in 100 mls @ 100 mls/hr IV Q8H [facility] Last Infusion: 04/05/24 07:34 Dose: Infused Documented By: ANNAMARIA Lorazepam (Lorazepam 1 Mg Tablet) 1 mg PO TID [facility] Last Admin: 04/05/24 08:15 Dose: 1 mg Documented By: ANNAMARIA Magnesium Hydroxide (Milk Of Magnesia 30 Ml Oral.Susp) 30 ml PO DAILY PRN PRN Reason: Constipation Melatonin (Melatonin 3 Mg Tablet) 6 mg PO BEDTIME PRN PRN Reason: Insomnia Last Admin: 04/04/24 19:29 Dose: 6 mg Documented By: PB Patient Own ( Mesalamine 500 Mg Capsule, Extended Release) 1,000 mg PO QID [facility] Last Admin: 04/05/24 12:38 Dose: 1,000 mg Documented By: ANNAMARIA Patient Own ( Budesonide 3 Mg Capsule,Delayed, Extend.Release) 9 mg PO DAILY [facility] Last Admin: 04/05/24 08:15 Dose: 9 mg Documented By: ANNAMARIA Omeprazole (Omeprazole 40 Mg Capsule.) 40 mg PO DAILY@0630 [facility] Last Admin: 04/05/24 06:38 Dose: 40 mg Documented By: PB Ondansetron HCl (Ondansetron Hcl 4 Mg/2 Ml Vial) 4 mg IVPUSH Q6H PRN PRN Reason: Nausea and Vomiting Last Admin: 04/05/24 10:56 Dose: 4 mg Documented By: ANNAMARIA Polyethylene Glycol (Polyethylene Glycol 3350 17 Gm Powd.Pack) 17 gm PO DAILY PRN PRN Reason: Constipation Prochlorperazine Edisylate (Prochlorperazine Edisylate 10 Mg/2 Ml Vial) 5 mg IVPUSH Q4H PRN PRN Reason: Nausea and Vomiting Last Admin: 04/05/24 04:14 Dose: 5 mg Documented By: PB Sodium Chloride (0.9 % Sodium Chloride Flush 3 Ml Syringe) 3 ml IVFLUSH QSHIFT [facility] Last Admin: 04/05/24 08:15 Dose: 3 ml Documented By: ANNAMARIA Sumatriptan Succinate (Sumatriptan Succinate 50 Mg Tablet) 50 mg PO DAILY MRX1 PRN PRN Reason: Migraine Headache Last Admin: 04/04/24 14:16 Dose: 50 mg Documented By: ANNAMARIA Vancomycin HCl (Vancomycin Hcl 125 Mg Capsule) 125 mg PO Q6H [facility] Last Admin: 04/05/24 12:38 Dose: 125 mg Documented By: ANNAMARIA Zolpidem Tartrate (Zolpidem Tartrate 5 Mg Tablet) 5 mg PO Q2D@2200 PRN PRN Reason: Insomnia Last Admin: 04/03/24 21:08 Dose: 5 mg Documented By: PB Labs 04/04/24 05:01 04/05/24 05:32 Labs: Laboratory Results - last 24 hr 04/05/24 04/05/24 04/05/24 05:32 08:41 08:42 Hold Purple Top SEE NOTE Anion Gap 12 Estim Creat Clear Calc 112.3 Estimated GFR > 60 Random Glucose 80 Calcium 9.4 D Stool Leukocytes, Qual NEGATIVE C. difficile Tox B Gene POSITIVE A* C. difficile Toxin A&B Negative C. difficile Interpret SEE NOTE Assessment and Plan (1) Clostridioides difficile carrier: Status: Acute (2) UTI (urinary tract infection): Status: Acute (3) Diverticulitis: Status: Acute Plan an 48 years w hx of Crohns disease w hx of fistula, diverticulosis, hx RCC, migraines, anxiety and depression who presented with abdominal pain, nausea and vomiting. CT scan showing possible Diverticulitis. UA concerning for UTI. Acute Diverticulitis improving tolerating clears, advance to regular Abdominal XR showing no evidence of obstruction DC IVF Continue IV Flagyl and DC Ceftriaxone for diarrhea GI input appreciated, continue the same Surgery eval appreciated nausea meds prn Clears, advance diet as tolerated Follow cultures C.Diff carrier w Diarrhea Tested positive Ag but negative toxin Vancomycin PO as prophylaxis check stool WBCs hold Ceftriaxone Imodium prn if negative WBCs UTI growing E.Coli finished 3 days of IV ceftriaxone Renal cyst CT found septated cyst on posterior interpolar region of right kidney Recommendation is for follow-up in 12 months with renal MRI wo/w contrast to ensure stability Crohn's disease without acute exacerbation Continue home meds HTN Continue home meds Mood disorder Continue home meds Full Code DVT Prophylaxis: Lovenox Pt will require a hospitalization overnight for treatment of?acute diverticulitis pending clinical improvement and ability to tolerate PO Quality Stroke Does the patient have a stroke diagnosis?: No VTE Prior VTE?: No VTE Risk Level:: Medical - moderate - high VTE Device Contraindication: Treatment Not Indicated VTE Drug Contraindication: N/A - Med Ordered
[2024-04-05 14:58] VITALS: BP 162/86; PULSE 81; RESP 18; TEMP 36.1; O2SAT 97
[2024-04-05] MEDS: Enoxaparin Sodium 40 MG/0.4 ML SYRINGE SUBCUT (15:07)
[2024-04-05 18:43] VITALS: BP 158/87; PULSE 85; RESP 18; TEMP 36.1; O2SAT 99
[2024-04-05] MEDS: Zolpidem Tartrate 5 MG TABLET PO (21:07)
[2024-04-05] MEDS: Melatonin 3 MG TABLET 6 MG PO (21:07)
[2024-04-06] MEDS: vancomycin HCL 125 MG CAPSULE PO ×3 (01:20→12:30)
[2024-04-06] MEDS: ondansetron HCL 4 MG/2 ML VIAL IVPUSH (02:16)
[2024-04-06 04:00] VITALS: BP 153/73; PULSE 88; RESP 16; TEMP 36.1; O2SAT 97
[2024-04-06] MEDS: Prochlorperazine Edisylate 10 MG/2 ML VIAL 5 MG IVPUSH ×2 (04:40→09:23)
[2024-04-06] MEDS: Omeprazole 40 MG CAPSULE.DR PO (04:48)
[2024-04-06] MEDS: HYDROmorphone HCl 1 MG/ML SYRINGE IVPUSH ×3 (04:48→13:30)
[2024-04-06] MEDS: Loperamide HCl 2 MG CAPSULE PO (04:48)
[2024-04-06] MEDS: metroNIDAZOLE/NS 500 MG/100 ML PIGGYBACK 100 MG IV (06:19)
[2024-04-06 07:04] LABS: Anion Gap 14 (12-20); Blood Urea Nitrogen 5 mg/dL (9-16); Calcium 9.1 mg/dL (8.4-10.2); Carbon Dioxide 25 mmol/L (22-29); Chloride 104 mmol/L (96-108); Creatinine Clr Calc Pharmacy 118.1; Estimated Glomerular Filt Rate > 60; Glucose Random 84 mg/dL (60-115); Sodium 140 mmol/L (135-145)
[2024-04-06 07:19] VITALS: BP 149/86; PULSE 75; RESP 12; TEMP 36.2; O2SAT 99
[2024-04-06] MEDS: DULoxetine HCl 30 MG CAPSULE.DR PO (07:48)
[2024-04-06] MEDS: LORazepam 1 MG TABLET PO ×2 (07:49→15:57)
[2024-04-06] MEDS: 0.9 % Sodium Chloride Flush 3 ML SYRINGE IVFLUSH (07:50)
[2024-04-06] MEDS: Dicyclomine HCl 10 MG CAPSULE PO ×2 (09:24→15:57)
--- NOTE | 2024-04-06 11:55 | P.CDIM_ITS ---
PROVIDER RESPONSE TEXT: To clarify, the appropriate diagnosis supported by the clinical indicators: Sepsis is/was present and is a clinical diagnosis based on QUERY TEXT: PHYSICIAN'S DOCUMENTATION REQUEST Date of Query: 04/03/2024 07:36 AM EDT Patient Name: Gabi Perales Admit Date: 04/01/2024 Dear Santosh Tello, A review of the medical record indicates additional documentation may be needed. Please review below and update the documentation accordingly. Clinical indicators: H&P 04/01 - In the ED pt was tachypneic up to 24, labs were significant for leukocytosis of 12.4 and C RP elevated mildly at 1.38. Plan: Patient meets sepsis criteria: Tachypnea, leukocytosis; initial lactic acid 2.3. Started on broad-spectrum antibiotics and IVF in ED. Will cover with ceftriaxone and metronidazole. Sepsis Systemic manifestations of infection, with 2 or more SIRS criteria which include: Fever > 100.4?F or hypothermia < 96.8?F Leukocytosis - WBC > 12,000 or leukopenia, WBC < 4,000, or > 10% bands Tachycardia- > 90 beats/minute Tachypnea- RR > 20 breaths/minute or PaCO2 < 32mmHg Based on the above information and the recognized standard for sepsis, could you please clarify if th is diagnoses is still accurate and reflective of the patient's condition to ensure quality of the medical record. Sepsis is/was present and is a clinical diagnosis based on After study (the condition) has been ruled out Other (explain) Clinically unable to determine (explain) Thank you, Roslyn Michael, CCS, CDIS Use of terms such as suspected, likely, concern for, or probable (associated with a specific diagnosi s that is being evaluated, monitored, or treated as if it exists) are acceptable and can be coded in the inpatient se tting, when documented at the time of discharge. Please use your independent medical judgment in providing your response. THIS QUERY IS PART OF THE PERMANENT MEDICAL RECORD
--- NOTE | 2024-04-06 13:04 | P.DS_ITS ---
DS: Providers Provider Date of Service: 04/06/24 Date of admission: 04/01/24 15:37 Primary care physician: Jaswant Frank MD Consults: 04/02/24 11:16 Consult to General Surgery Routine Consulting Provider: [facility] [place] [facility] Sur[facility] Reason for consultation: Abd pain, 04/03/24 16:28 Consult to Gastroenterology Routine Consulting Provider: Matthew Alexis Reason for consultation: Acute diverticulitis , hx Crohns DS: Diagnosis Discharge Diagnosis (1) Clostridioides difficile carrier: Status: Inactive (2) UTI (urinary tract infection): Status: Resolved (3) Diverticulitis: Status: Resolved DS: Summary Hospital Course Hospital Course: Admission note HPI Pt is a 48-year-old female with a PMH significant for?Crohn's disease with hx of colonic fistula, diverticulitis, renal cell carcinoma, lumbar degenerative disc disease, migraines, bilateral osteoarthritis of the hips, anxiety, and depression who presents to the ED for evaluation of abdominal pain and intractable nausea and vomiting. Patient reports that she has not been feeling well for the past 2 weeks. Did see her optical goods worker during this time and received?her monthly vedolizumab infusion. Has had reduced p.o. intake. Chronic abdominal pain slightly worse than baseline. Symptoms worsened last night when patient began experiencing intractable nausea, vomiting, and diarrhea, and increased abdominal pain. Pain began on right side then migrated to the left side, and then wrapped around to her back. Subjective fever and chills. This morning patient noted she was weak, shaking, and could not get up or stand on her own, so EMS was called. Patient denies any chest pain/pressure, palpitations. No shortness of breath or difficulty breathing. Patient reports saw her [employer] TECHNICIAN around 5-7 days ago where she had 5 cervical biopsies taken for abnormal Pap smear. Procedure was complicated by unintentional IUD extraction. Patient reports her doctor had warned her she would be susceptible to a UTI from this procedure. In the ED pt was tachypneic up to 24, but with vitals otherwise WNL. Labs were significant for leukocytosis of 12.4 and CRP mildly elevated at 1.38, otherwise grossly unremarkable. Stable H& H. No significant electrolyte abnormalities. Renal and hepatic function baseline. CT of abdomen and pelvis found pancolonic diverticulitis, though showing significant improvement from inflammation seen in same region on 12/12/2023. No findings to suggest active Crohn disease. Pt was treated with Dilaudid, droperidol, ketorolac, IVF, diphenhydramine, prochlorperazine, ceftriaxone, and metronidazole. Pt will be admitted to the hospital for treatment and further evaluation of intractable nausea and vomiting in the setting of possible mild diverticulitis and acute UTI. Hospital course # Acute Diverticulitis per CT scan report as below. Treated with IV Flagyl and Ceftriaxone with good response as nausea improved. She developed few episodes of diarrhea with negative WBCs. started on Imodium as needed. Abdominal XR showing no evidence of obstruction. GI evaluated the patient and recommended supportive therapy and antibiotics. She was also seen by Surgery who did not feel the need of any intervention. She was able to toelrate regular diet. To be discharged on Flagyl for 5 more days and Ceftin for couple more days. # C.Diff carrier w Diarrhea. Tested positive Ag but negative toxin. Kept on Vancomycin PO as prophylaxis. Negative stool WBCs. Imodium prn for diarrhea. To use Probiotics as outpatient. # UTI. Culture growing E.Coli in urine. finished 3 days of IV ceftriaxone # Renal cyst. CT found septated cyst on posterior interpolar region of right kidney. Recommendation is for follow-up in 12 months with renal MRI wo/w contrast to ensure stability Discharge plan Continue Antibiotics as prescribed Take Probiotics to help preventing C.Diff infection Advance diet as tolerated Follow with PCP as schduled Come back to hospital for worsening pain, fever or diarrhea Time Attestation Discharge Coordination Time (in mins): 35 Quality: Safe Use of Opioids Does Pt have an Active Cancer Diagnosis on the Problem List?: No Quality: Stroke Does the patient have a stroke diagnosis?: No Physical Exam Vital Signs: Vital Signs: Last Vital Signs Temp 97.1 F 04/06/24 07:19 Pulse 75 04/06/24 07:19 Resp 12 04/06/24 07:19 BP 149/86 H 04/06/24 07:19 Pulse Ox 99 04/06/24 07:19 O2 Del Method Room Air 04/06/24 07:19 BMI result Body Mass Index 25.4 Const: Other: Constitutional : Awake, interactive, not in distress Neck : Normal inspection, Supple Cardiovascular : RRR, no JVP, no lower extremity edema Respiratory : good bilateral air entry, no crackles, wheezes or rhonchi Gastrointestinal: soft, lax, normal bowel sounds, no LLQ tenderness Skin : Warm, Dry Neurological : Alert & oriented x3, No focal deficit DS: Data Data Completed and Pending Labs on day of discharge: Laboratory Results - last 24 hr 04/05/24 04/06/24 08:41 05:30 Hold Purple Top SEE NOTE Sodium 140 Potassium 3.0 L Chloride 104 Carbon Dioxide 25 Anion Gap 14 BUN 5 L Creatinine 0.59 Estim Creat Clear Calc 118.1 Estimated GFR > 60 Random Glucose 84 Calcium 9.1 Stl C. cayetanensis PCR Not Detected Stool Rotavirus A PCR Not Detected Stl Adenov F 40/41 PCR Not Detected Stool Astrovirus (PCR) Not Detected Stool Campylobacter PCR Not Detected Stool Cryptosporidium PCR Not Detected Stl Sh Tox Pr E STEC PCR Not Detected Stool E coli O157 PCR Not applicable Stl Enterotoxigenic E PCR Not Detected Stool EPEC (PCR) Not Detected Stool EAEC (PCR) Not Detected Stl E. histolytica PCR Not Detected Stool Giardia Lamblia PCR Not Detected Stl P. shigelloides PCR Not Detected Stool Salmonella PCR Not Detected Stool Sapovirus (PCR) Not Detected Stl Shigella/EIEC PCR Not Detected St Y.enterocolitica PCR Not Detected Stool Vibrio (PCR) Not Detected Stl Vibrio cholerae PCR Not Detected Stl Norovirus GI/GII PCR Not Detected Preliminary micro results at discharge 04/01/24 14:38 Blood Culture - Preliminary Blood - Venous No growth after 48 hours. 04/01/24 14:38 Blood Culture - Preliminary Blood - Venous No growth after 48 hours. Imaging Chest x-ray: Radiologist's impression: ITS Impressions Abdomen/Pelvis CT 04/01/24 10:57 IMPRESSION: * No evidence of bowel obstruction. * Pancolonic diverticulosis. Mild pericolonic fat stranding in region of transition from distal descending to proximal sigmoid colon is suggestive of mild diverticulitis. However, this represents significant improvement from the inflammation seen in this same region on 12/12/2023. No abscess. * No findings to suggest active Crohn disease. * There is a septated cyst of the posterior interpolar region of the right kidney. This is considered a Bosniak category 2F lesion. Recommend imaging follow-up in 12 months to ensure stability (e.g., renal MRI performed without and with IV contrast). Abdomen X-Ray 04/02/24 11:00 IMPRESSION: No evidence of bowel obstruction. Interval removal of IUD. Discharge Plan Discharge Anticipated Discharge Date/Time: 04/06/24 12:56 Patient Disposition: Home, Self-Care Discharge Diagnosis: Acute diverticulitis C.Diff carrier UTI Referrals: Jaswant Frank MD [Primary Care Provider] - 1 Week Piero Powell MD [Physician] - 1 Week Discharge Medications: New loperamide 2 mg Capsule 2 mg PO Q4H PRN (Reason: Diarrhea) Qty: 15 0RF metronidazole 500 mg Tablet 500 mg PO Q8H Qty: 15 0RF cefuroxime axetil 500 mg tablet 500 mg PO BID Qty: 4 0RF Probiotic 3 billion cell capsule 3,000 mmu cells PO DAILY Qty: 30 0RF Rx Instructions: administer with a meal Continued ondansetron 4 mg tablet,disintegrating 4 mg PO Q8H PRN (Reason: nausea and vomiting) Qty: 20 0RF lorazepam 1 mg tablet 1 mg PO TID 30 Days Qty: 90 0RF clonidine HCl 0.1 mg tablet 0.1 mg PO TID PRN (Reason: for anxiety) Qty: 90 2RF budesonide 3 mg capsule,delayed,extend.release 9 mg PO DAILY mesalamine 500 mg capsule, extended release 1,000 mg PO QID omeprazole 40 mg capsule,delayed release(DR/EC) 40 mg PO DAILY duloxetine 30 mg capsule,delayed release(DR/EC) 30 mg PO BID zolpidem 12.5 mg tablet,ext release multiphase 12.5 mg PO Q2D@2200 cholestyramine (with sugar) 4 gram Powder 4 g PO DAILY PRN (Reason: Diarrhea) Entyvio 300 mg recon soln 300 mg IV Q4W Rx Instructions: administer over 30 mins dicyclomine 10 mg capsule 10 mg PO QID PRN (Reason: Gastrointestinal Spasms Or Cramping) No Action sumatriptan succinate 50 mg tablet 50 mg PO DAILY MRX1 PRN (Reason: Migraine Headache) Qty: 30 0RF tramadol 50 mg tablet 50 mg PO TID PRN (Reason: pain) 30 Days Qty: 90 0RF Discharge Orders: Discharge Order (Routine); Ordered 04/06/24 Ordered By: Santosh Tello Diet: Advance to usual diet Activity on Discharge: As tolerated Stand Alone Forms: Patient Portal Discharge page Print Language: Cameroonian Care Plan Goals: Read below Health Concerns: Read below Plan of Treatment: Read below Assessment: Continue Antibiotics as prescribed Take Probiotics to help preventing C.Diff infection Advance diet as tolerated Follow with PCP as schduled Come back to hospital for worsening pain, fever or diarrhea Patient Instructions: C. Diff (Clostridioides Difficile) Infection (DC) Discharge Date/Time: 04/06/24 16:33
--- NOTE | 2024-04-06 14:43 | MHC.CM.PN ---
PT WILL DC HOME TODAY WITH NO SERVICES VIA PRIVATE TRANSPORT
[2024-04-06] MEDS: metroNIDAZOLE 500 MG TABLET PO (15:57)
[2024-04-06] MEDS: Enoxaparin Sodium 40 MG/0.4 ML SYRINGE SUBCUT (15:57)
== END 2024-04-06 16:33 | disposition home or self-care (01) | DRG 872 ==
LOC: HO.ED 15:29 → HO.EDOVER 15:48 → HO.S3 04-02 15:03
PROVIDERS: Physician Assistant Medical; Admitting Provider Student in an Organized Health Care Education/Training Program; Emergency Provider Emergency Medicine; PCP Internal Medicine; Visit Provider Student in an Organized Health Care Education/Training Program
DX: A41.9 Sepsis, unspecified organism (principal); N39.0 Urinary tract infection, site not specified; K57.32 Diverticulitis of large intestine without perforation or abscess without bleeding; K50.90 Crohn's disease, unspecified, without complications; F39 Unspecified mood [affective] disorder; I10 Essential (primary) hypertension; B96.20 Unspecified Escherichia coli [E. coli] as the cause of diseases classified elsewhere; N28.1 Cyst of kidney, acquired; Z22.1 Carrier of other intestinal infectious diseases; Z87.891 Personal history of nicotine dependence; Z79.899 Other long term (current) drug therapy
CPT/HCPCS: 36415; 74018; 74177; 80048; 80076; 81001; 83605; 83690; 84702; 85025; 85027; 85652; 86140; 87040; 87086; 87088; 87186; 87324; 87493; 87507; 89055; 99285; J0696; J0737; J1170; J1200; J1630; J1650; J1790; J1836; J1885; J2270; J2405; J3360; Q9967

== ENCOUNTER → 2024-04-01 15:37 | Outpatient (BNV) | payer OTHER, SELFPAY | PROVIDERS: Admitting Provider Student in an Organized Health Care Education/Training Program; Emergency Provider Emergency Medicine; PCP Internal Medicine; Visit Provider Student in an Organized Health Care Education/Training Program | DX: N39.0 Urinary tract infection, site not specified (principal); K57.92 Diverticulitis of intestine, part unspecified, without perforation or abscess without bleeding; Z22.1 Carrier of other intestinal infectious diseases | CPT/HCPCS: 99223; 99232; 99239 ==

== ENCOUNTER → 2024-04-01 15:37 | Outpatient (BNV) | payer OTHER, SELFPAY | PROVIDERS: Admitting Provider Student in an Organized Health Care Education/Training Program; Emergency Provider Emergency Medicine; PCP Internal Medicine; Visit Provider Surgery | DX: R11.10 Vomiting, unspecified (principal); K57.92 Diverticulitis of intestine, part unspecified, without perforation or abscess without bleeding; A04.72 Enterocolitis due to Clostridium difficile, not specified as recurrent | CPT/HCPCS: 99222; 99232 ==

== ENCOUNTER 2024-04-07 11:27 | Outpatient (AMB) | payer OTHER, SELFPAY ==
--- NOTE | 2024-04-07 11:28 | MHC.OFFVIS ---
Intake Visit Reasons: labs results Tape Duplicator Required: No Information Interpreted: non-clinical & clinical Allergies meperidine [From Demerol] Allergy (Severe, Verified 04/07/24 11:28) SWELLING,RASH,THROAT CLOSES latex [LATEX] Allergy (Mild, Verified 04/07/24 11:28) RASH codeine [Codeine] Adverse Reaction (Intermediate, Verified 04/07/24 11:28) NAUSEA/VOMITING, GI upset/vomiting duloxetine Adverse Reaction (Intermediate, Verified 04/07/24 11:28) headaches trazodone Adverse Reaction (Mild, Verified 04/07/24 11:28) Anxiety Fish Containing Products [Fish Product Derivatives] Adverse Reaction (Unknown, Verified 04/07/24 11:28) NAUSEA/VOMITING bupropion Adverse Reaction (Intermediate, Uncoded 04/07/24 11:28) increased headaches HPI Comments Details: The patient is scheduled tele health visit for follow-up regarding her FSH/LH and to discuss different options of control PFSH Medical History Renal calculus, bilateral Postcoital bleeding Major depression, recurrent, chronic Furuncle Diverticulitis Obesity (BMI 30-39.9) Crohn's colitis Crohns disease of small intestine Crohn's colitis Intractable nausea and vomiting Migraine History of renal cell cancer (~2014) Osteoarthritis of hips, bilateral Depression Crohn's disease Lumbar degenerative disc disease Insomnia Anxiety 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 Surgical History Hx of colonoscopy History of esophagogastroduodenoscopy (EGD) History of removal of calculus of renal pelvis through percutaneous nephrostomy (~10/2015) History of cryosurgery (~04/20/15) History of intestinal surgery History of arthroplasty (~01/2012) Family History Father Crohn disease Migraine Cancer Mother HTN (hypertension) Vertigo Cervical cancer Maternal Grandmother HTN (hypertension) Hyperlipidemia Diabetes mellitus Paternal Grandmother Diabetes mellitus Other Mental health problem Social History Household Members: Family Housing: House Do you presently have visiting nurse or other home services: No Alcohol intake: current Alcohol intake frequency: holidays/special occasions only Patient Tobacco Use Status: Former Tobacco user Tobacco use type: Cigarette e-Cigarette/Vaping Use: Former Use Second Hand Smoke Exposure: No Substance Use Type: Marijuana Advance Directives Date on File: 06/15/22 service: No Current occupational status: unemployed Gender identity: Female Cognitive needs: No Hearing needs: No Vision needs: Yes (glasses) Female Reproductive History Menstrual Age of Menarche: 12 Review of Systems Const All systems reviewed & are unremarkable except as noted in HPI and below Reports as per HPI and Reports no additional complaints GI Reports no additional complaints Reports no additional complaints Telehealth Telehealth Telehealth Platform: Telephone Location of provider rendering services: practice address Location of patient: address on file Patient Identification confirmed using: Name, : Yes Telehealth method: video Patient verbally consented to treatment: Yes Patient verbally consented to billing insurance company: Yes Patient informed of any privacy concerns related to visit: Yes Assessment & Plan Assessment & Plan (1) Family planning: Code(s): Z30.09 - Encounter for other general counseling and advice on contraception Category: Social Hx Plan: Discussed with the patient the different options of control including control pills/Nuvaring, DMPA, different types of IUD ?s, sterilization. All the pros, cons, risks and benefits of each were discussed with the patient. The patient decided to go ahead with ParaGard IUD, so a more detailed discussion was carried on including types (Progesterone, Copper), mechanism of action, risks (infection, uterine perforation, failure with ectopic , septic AB, dysmenorrhea with Paraguard, others) benefits (efficient contraceptive method, hypo menorrhea with Progesterone IUD, others) GC/CG will be taken during IUD insertion and the patient was asked to call day one of next cycle for IUD insertion. I spent a total of 20 minutes reviewing the chart, talking to the patient via video and documenting in the medical record. Coding Level of Care Code Tele Est Pt Level 3 (22053) Diagnoses Family planning Z30.09
== END 2024-04-08 09:02 | disposition home or self-care (01) ==
LOC: HO.HWS 11:27
PROVIDERS: PCP Internal Medicine; Visit Provider Obstetrics & Gynecology
DX: Z30.09 Encounter for other general counseling and advice on contraception (principal)
CPT/HCPCS: 99442

== ENCOUNTER → 2024-04-07 11:27 | Outpatient (BNVA) | payer OTHER, SELFPAY | PROVIDERS: PCP Internal Medicine; Visit Provider Obstetrics & Gynecology ==

== ENCOUNTER 2024-04-22 13:16 | Outpatient (AMB) | payer OTHER, SELFPAY ==
--- NOTE | 2024-04-22 13:18 | A.OFFPC_ITS ---
Vital Signs 04/22/24 13:19 Height 5 ft 5 in Weight 152 lb 0.6 oz BMI 25.3 BP 98/66 Blood Pressure Location Lt brachial Position Sitting Pulse 97 Pulse Source Pulse Oximeter Pulse Oximetry (%) 100 Oxygen Delivery Method Room Air Intake Visit Reasons: HDF 04/07/24 Intake Note: Patient is here for hospital discharge follow up. [place] [facility] [place] Director Funeral Required: No Allergies meperidine [From Demerol] Allergy (Severe, Verified 06/16/24 15:29) SWELLING,RASH,THROAT CLOSES latex [LATEX] Allergy (Mild, Verified 06/16/24 15:29) RASH codeine [Codeine] Adverse Reaction (Intermediate, Verified 06/16/24 15:29) NAUSEA/VOMITING, GI upset/vomiting duloxetine Adverse Reaction (Intermediate, Verified 06/16/24 15:29) headaches trazodone Adverse Reaction (Mild, Verified 06/16/24 15:29) Anxiety Fish Containing Products [Fish Product Derivatives] Adverse Reaction (Unknown, Verified 06/16/24 15:29) NAUSEA/VOMITING bupropion Adverse Reaction (Intermediate, Uncoded 06/16/24 15:29) increased headaches Medication List - Last Reconciled 04/22/24 by Jaswant Frank MD budesonide DR-ER 9 mg PO DAILY cholestyramine (with sugar) 4 gram 4 grams PO DAILY PRN clonidine HCl 0.1 mg PO TID PRN dicyclomine 10 mg PO QID PRN duloxetine 30 mg PO BID lactobacillus combination no.4 (Probiotic) 3,000 mmu cells PO DAILY loperamide 2 mg PO Q4H PRN lorazepam 1 mg PO TID 30 days mesalamine ER 1,000 mg PO QID metronidazole 500 mg PO Q8H omeprazole 40 mg PO DAILY ondansetron 4 mg PO Q8H PRN sumatriptan succinate 50 mg PO DAILY MRX1 PRN tramadol 50 mg PO TID PRN 30 days vedolizumab (Entyvio) 300 mg IV Q4W zolpidem ER 12.5 mg PO Q2D@2200 Tobacco use date assessed: 04/22/24 Dental Screening Dental Screen Date: 04/22/24 HPI HDF 04/07/24 HPI Details Patient comes in today for her HDF follow up visit She was [place] [facility] [place] about 5 to 6 days a couple of weeks ago for increasing abdominal pain and intractable nausea and vomiting as well as increased diarrhea CT abdomen done revealed findings of acute diverticulitis; abdominal x-rays revealed no evidence of bowel obstruction She was started on IV Abx (Flagyl and Ceftriaxone) and treated symptomatically She also tested positive for C. diff antigen but was negative for the toxin - was treated with oral Vancomycin prophylactically Her symptoms gradually improved and she was transitioned over to oral Metronidazole and Cefuroxime, which she has since completed States that she still has frequent diarrhea/loose stools but feels that this is slowly improving as her diarrhea seems to be slowing down and she thinks they are not as explosive as they were a few weeks ago Relates feeling fatigued often but she denies any fever, headaches or dizziness Denies any chest pains, no increased SOB Still has occasional nausea but denies any vomiting lately; states that her abdominal pain has also subsided a lot recently She is scheduled for her next infusion of Entyvio in a couple of days Adds that she recall having a conversation with Dr. Milan a while back wherein he advised her to consider getting a sigmoid colectomy done if she continues to get flare ups of her colitis States that she checked with Dr. St about this recently and he basically recommended the same thing She is now requesting for a referral to see Dr. Milan for this [facility] Medical History Clostridioides difficile carrier Renal calculus, bilateral Postcoital bleeding Major depression, recurrent, chronic Furuncle Diverticulitis Obesity (BMI 30-39.9) Crohn's colitis Crohns disease of small intestine Crohn's colitis Intractable nausea and vomiting Migraine History of renal cell cancer (~2014) Osteoarthritis of hips, bilateral Depression Crohn's disease Lumbar degenerative disc disease Insomnia Anxiety 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 Surgical History Hx of colonoscopy History of esophagogastroduodenoscopy (EGD) History of removal of calculus of renal pelvis through percutaneous nephrostomy (~10/2015) History of cryosurgery (~04/20/15) History of intestinal surgery History of arthroplasty (~01/2012) Family History Father Crohn disease Migraine Cancer Mother HTN (hypertension) Vertigo Cervical cancer Maternal Grandmother HTN (hypertension) Hyperlipidemia Diabetes mellitus Paternal Grandmother Diabetes mellitus Other Mental health problem Social History Household Members: Family Housing: House Do you presently have visiting nurse or other home services: No Unable to assess alcohol history related to: Unable to respond Alcohol intake: current Alcohol intake frequency: holidays/special occasions only Patient Tobacco Use Status: Former Tobacco user Tobacco use type: Cigarette e-Cigarette/Vaping Use: Former Use Second Hand Smoke Exposure: No Substance Use Type: Marijuana Advance Directives Date on File: 06/15/22 service: No Current occupational status: unemployed Gender identity: Female Cognitive needs: No Hearing needs: No Vision needs: Yes (glasses) Female Reproductive History Menstrual Age of Menarche: 12 Questionnaire Thrive Questionnaire Date Thrive assessed: 04/03/24 I am a: Patient What is your living situation today?: I have a steady place to live Within the past 12 months, did the food you bought not last and you didn't have the money to get more?: Never true Within the past 12 months, did you worry whether your food would run out before you got money to buy more?: Never true Do you have trouble paying for medicines?: No Do you have trouble getting transportation to medical appointments?: No Do you have trouble paying your heating and electricity bill?: No Do you have trouble taking care of your child, family member or friend?: No Do you have trouble with day-to-day activities such as bathing, preparing meals, shopping, managing finances, etc.?: No Are you currently unemployed and looking for a job?: No Are you interested in more education?: No Please select the resources that you would like help with: None Currently or been in a relationship where the following occur: no concerns reported THRIVE Score: 0 AUDIT C Alcohol Use Questionnaire (AUDIT-C) 1. How often do you have a drink containing alcohol?: Monthly or less 2. How many drinks containing alcohol do you have on a typical day when you are drinking?: 1 or 2 3. How often do you have six or more drinks on one occasion?: Never Total Score: 1 Score Reviewed/Action Taken: Yes MONTSE-7 AMB Questionnaire MONTSE-7 Date MONTSE - 7 assessed: 01/16/24 Source: Developed by Drs. Matthew Hernandez, Starr Jiménez, Billy Somers and colleagues, with an educational paxton from [employer]. Review of Systems Const Denies chills, Reports difficulty sleeping, Reports fatigue (increased lately), Denies fever(s) and Denies headache(s) ENT Denies dizziness, Denies otalgia, Denies headache(s), Denies neck pain, Denies odynophagia and Denies sore throat Card Denies chest pain, Denies palpitations and Denies dyspnea Resp Denies chest congestion, Denies cough, Denies dyspnea and Denies wheezing GI Reports abdominal pain (intermittent), Denies hematochezia, Reports constipation (on and off), Denies heartburn, Reports diarrhea (lately but patient feels that this is slowly improving), Reports loose stools, Reports nausea (on and off - better lately), Denies odynophagia and Denies vomiting Denies difficulty voiding, Denies nocturia, Denies dysuria and Denies urinary urgency Musc Reports back pain, Reports arthralgias (over both hips) and Denies neck pain Skin/Breast Denies rash Neuro Denies dizziness and Denies headache(s) Psych Reports anxiety and Reports depression Endo Reports fatigue (increased lately) and Denies palpitations Aller/Immun Denies wheezing Physical exam (Primary Care) Vital Signs: Last Vital Signs Pulse 97 04/22/24 13:19 BP 98/66 04/22/24 13:19 Pulse Ox 100 04/22/24 13:19 Oxygen Delivery Method Room Air 04/22/24 13:19 BMI result Body Mass Index 25.3 Tobacco/Smoking Status: Tobacco use Status Tobacco use date assessed 04/22/24 04/22/24 13:20 Patient Tobacco Use Status Former Tobacco user 04/22/24 13:18 Tobacco use type Cigarette 04/22/24 13:18 e-Cigarette/Vaping Use Former Use 04/22/24 13:18 Thrive Assessment: Date of Thrive Assessment Date Thrive assessed 04/03/24 04/22/24 13:18 Currently or been in a relationship where the following occur: no concerns reported Const General: no acute distress and alert HENMT Ears: TM's normal bilaterally and EAC's normal Throat: Yes posterior oropharynx normal and Yes tonsils normal (no TP congestion noted) Neck Neck: Yes no lymphadenopathy and Yes supple Thyroid: Thyroid normal Resp Auscultation: clear to auscultation bilaterally, no rales and no wheezes Cardio Rate: regular rate Rhythm: regular rhythm Heart sounds: no murmurs GI Palpation (GI): Soft to palpation, Tenderness to palpation present (GI) ((+) minimal diffuse lower abdominal discomfort), no guarding, not rigid and No Rebound tenderness present Auscultation: normal bowel sounds Back/Spine/Pelvis Thoracic/Lumbar Spine: lumbar spinal tenderness Skin Rashes: no rashes Extrem General: Yes no clubbing, cyanosis or edema Results Reviewed Results Reviewed: Laboratory Tests 04/01/24 04/01/24 04/04/24 08:19 13:50 05:01 WBC 8.0 Hgb 11.7 L Hct 35.7 L Plt Count 240 Sodium Potassium Creatinine Estimated GFR Calcium AST 14 ALT 14 Ur Specific [place] >= 1.030 H Urine Protein 30 (1+) H Urine Blood Negative Urine Nitrite Positive H Ur Leukocyte Esterase Negative 04/06/24 05:30 WBC Hgb Hct Plt Count Sodium 140 Potassium 3.0 L Creatinine 0.59 Estimated GFR > 60 Calcium 9.1 AST ALT Ur Specific [place] Urine Protein Urine Blood Urine Nitrite Ur Leukocyte Esterase Assessment and Plan Assessment & Plan (1) Crohn disease: Code(s): K50.90 - Crohn's disease, unspecified, without complications Qualifiers: Digestive disease complication type: unspecified complication Gastrointestinal tract location: unspecified location Qualified Code(s): K50.919 - Crohn's disease, unspecified, with unspecified complications Plan: Continue Entyvio 300 mg SQ every 6 to 8 weeks, Mesalamine ER 1000 mg QID and Budesonide ER 3 mg 3 capsules (900 mg) QD Her abdominal MRI done a few months ago revealed (+) mild improvement in the transmural wall thickening at the terminal ileum, suggesting some improvement Follow up with GI (Dr. Alexis) as scheduled (2) Sigmoid diverticulitis: Code(s): K57.32 - Diverticulitis of large intestine without perforation or abscess without bleeding Plan: Per request, will refer her to Dr. Milan for consideration for sigmoid colectomy, as discussed in HPI today (3) Lumbar degenerative disc disease: Code(s): M51.36 - Other intervertebral disc degeneration, lumbar region Plan: Reinforced activity and weight-lifting restrictions Continue Tramadol 50 mg TID PRN for pain (4) Migraine: Code(s): G43.909 - Migraine, unspecified, not intractable, without status migrainosus Qualifiers: Migraine type: unspecified Status migrainosus presence: without status migrainosus Intractability: not intractable Qualified Code(s): G43.909 - Migraine, unspecified, not intractable, without status migrainosus Plan: Continue Sumatriptan 50 mg PRN for headaches Continue Excedrin PRN and Ondansetron PRN for nausea/vomiting Topiramate (for LUNDBERG prophylaxis) was discontinued previously due to its potential interactions with Mirena; patient reports experiencing frequent headaches since Patient also relates experiencing a significant increase in her headaches when she was started on Bupropion XL and Buspirone a few months ago - headaches have subsided since she was instructed to STOP taking them If headaches get worse or progress, will consider referring her back to or urology for consultation (5) Impaired fasting glucose: Code(s): R73.01 - Impaired fasting glucose Plan: FBS was elevated on her recent labs done a few months ago - was most likely due to the effects of Prednisone, which she has been off (completed Tx) for a while now In-office HgbA1c was normal at 5.6% when previously checked Will continue to monitor her blood sugar closely Reinforced again low calorie/low carb diet to help control her blood sugar better (6) Insomnia: Code(s): G47.00 - Insomnia, unspecified Qualifiers: Insomnia type: unspecified Qualified Code(s): G47.00 - Insomnia, unspecified Plan: Sleep hygiene reinforced Continue Zolpidem CR 12.5 mg Q HS Has been checked out and advised by Sleep Medicine that she does NOT have FAISAL Was recently tried on Belsomra, which she felt was helping with her sleep but this was denied by her insurance Follow up with Sleep Medicine as scheduled (7) Anxiety: Code(s): F41.9 - Anxiety disorder, unspecified Plan: Advised again to continue following up with her current therapist at [facility] regularly/weekly; she was also seen by a psychiatrist previously but was advised at the time that she can continue seeing her therapist weekly and does not need to see psychiatry regularly but patient is instructed to talk to her therapist about getting her back in to see psychiatry [facility] given her recent issues Continue Lorazepam 1 mg BID PRN She was previously on Escitalopram 10 mg QD but she self-discontinued this a few months ago and her anxiety and depression got worse afterwards She was started on Wellbutrin XL 150 mg Q AM and Buspirone 7.5 mg BID a couple of months ago but was instructed to stop taking them when she reported experiencing increased and frequent headaches while on the Rx (8) Major depression, recurrent, chronic: Code(s): F33.9 - Major depressive disorder, recurrent, unspecified Plan: Increased since she stopped taking her Escitalopram a few months ago Could not tolerate Wellbutrin XL 150 mg Q AM and Buspirone due to increased headaches She was also trialed on Duloxetine 30 mg Q HS at her last visit but she reports that her headaches also got worse in the Rx and she stopped taking it immediately She is reminded to continue following up with her therapist regularly and to request seeing psychiatry again for a new consultation given her increasing depression and anxiety (9) Obesity (BMI 30-39.9): Code(s): E66.9 - Obesity, unspecified Plan: Reinforced diet/exercise as tolerated/lose weight Plan Follow up in 3 months Orders: Referrals General Surgery Referral K57.32 - Diverticulitis of large intestine without perforation or abscess without bleeding Coding Level of Care Code Est Pt Level 4 (52044) Diagnoses Crohn's disease with complication, unspecified gastrointestinal tract location K50.919 Digestive disease complication type: unspecified complication Gastrointestinal tract location: unspecified location Sigmoid diverticulitis K57.32 Lumbar degenerative disc disease M51.36 Migraine without status migrainosus, not intractable, unspecified migraine type G43.909 Migraine type: unspecified Status migrainosus presence: without status migrainosus Intractability: not intractable Impaired fasting glucose R73.01 Insomnia, unspecified type G47.00 Insomnia type: unspecified Anxiety F41.9 Major depression, recurrent, chronic F33.9 Obesity (BMI 30-39.9) E66.9
[2024-04-22 13:19] VITALS: BP 98/66; PULSE 97; O2SAT 100; BMI 25.3
== END 2024-04-22 16:16 | disposition home or self-care (01) ==
PROVIDERS: PCP Internal Medicine; Visit Provider Internal Medicine
DX: K50.919 Crohn's disease, unspecified, with unspecified complications (principal); K57.32 Diverticulitis of large intestine without perforation or abscess without bleeding; M51.36 Other intervertebral disc degeneration, lumbar region; G43.909 Migraine, unspecified, not intractable, without status migrainosus; R73.01 Impaired fasting glucose; G47.00 Insomnia, unspecified; F41.9 Anxiety disorder, unspecified; F33.9 Major depressive disorder, recurrent, unspecified; E66.9 Obesity, unspecified
CPT/HCPCS: 99499

== ENCOUNTER 2024-04-28 13:11 | Outpatient (AMB) | payer OTHER, SELFPAY ==
--- NOTE | 2024-04-28 13:11 | A.OFFVIS_ITS ---
Intake Visit Reasons: control follow up Allergies meperidine [From Demerol] Allergy (Severe, Verified 04/22/24 14:25) SWELLING,RASH,THROAT CLOSES latex [LATEX] Allergy (Mild, Verified 04/22/24 14:25) RASH codeine [Codeine] Adverse Reaction (Intermediate, Verified 04/22/24 14:25) NAUSEA/VOMITING, GI upset/vomiting duloxetine Adverse Reaction (Intermediate, Verified 04/22/24 14:25) headaches trazodone Adverse Reaction (Mild, Verified 04/22/24 14:25) Anxiety Fish Containing Products [Fish Product Derivatives] Adverse Reaction (Unknown, Verified 04/22/24 14:25) NAUSEA/VOMITING bupropion Adverse Reaction (Intermediate, Uncoded 04/22/24 14:25) increased headaches HPI Comments Details: The patient is scheduled tele health visit to discuss the results of FSH/LH and options of control. FSH/LH came back at 3/5.7. ParaGard request for was sent to the patient's ensure and was rejected. [facility] Medical History Clostridioides difficile carrier Renal calculus, bilateral Postcoital bleeding Major depression, recurrent, chronic Furuncle Diverticulitis Obesity (BMI 30-39.9) Crohn's colitis Crohns disease of small intestine Crohn's colitis Intractable nausea and vomiting Migraine History of renal cell cancer (~2014) Osteoarthritis of hips, bilateral Depression Crohn's disease Lumbar degenerative disc disease Insomnia Anxiety 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 Surgical History Hx of colonoscopy History of esophagogastroduodenoscopy (EGD) History of removal of calculus of renal pelvis through percutaneous nephrostomy (~10/2015) History of cryosurgery (~04/20/15) History of intestinal surgery History of arthroplasty (~01/2012) Family History Father Crohn disease Migraine Cancer Mother HTN (hypertension) Vertigo Cervical cancer Maternal Grandmother HTN (hypertension) Hyperlipidemia Diabetes mellitus Paternal Grandmother Diabetes mellitus Other Mental health problem Social History Household Members: Family Housing: House Do you presently have visiting nurse or other home services: No Alcohol intake: current Alcohol intake frequency: holidays/special occasions only Patient Tobacco Use Status: Former Tobacco user Tobacco use type: Cigarette e-Cigarette/Vaping Use: Former Use Second Hand Smoke Exposure: No Substance Use Type: Marijuana Advance Directives Date on File: 06/15/22 service: No Current occupational status: unemployed Gender identity: Female Cognitive needs: No Hearing needs: No Vision needs: Yes (glasses) Female Reproductive History Menstrual Age of Menarche: 12 Review of Systems Const All systems reviewed & are unremarkable except as noted in HPI and below Reports as per HPI and Reports no additional complaints GI Reports no additional complaints Reports no additional complaints Telehealth Telehealth Telehealth Platform: Telephone Location of provider rendering services: practice address Location of patient: address on file Patient Identification confirmed using: Name, : Yes Telehealth method: video Patient verbally consented to treatment: Yes Patient verbally consented to billing insurance company: Yes Patient informed of any privacy concerns related to visit: Yes Assessment & Plan Assessment & Plan (1) Family planning: Code(s): Z30.09 - Encounter for other general counseling and advice on contraception Category: Social Hx Plan: Discussed with the patient the results of FSH/LH being in the premenopausal range and the need for control prevent . Discussed with the patient the different options of control including control pills/Nuvaring (are contraindicated in patient with migraine headaches), DMPA (will increase her risk of bone loss), different types of IUD ?s, sterilization (is high-risk in patients with history of Crohn's disease and fistula intestinal surgery because of the high-risk of possible adhesions) and progestin only pill. All the pros, cons, risks and benefits of each were discussed with the patient. The patient decided to call her insurance company to contest their decision to decline ParaGard IUD and will get back to us if her insurance still declines her ParaGard the patient would like to consider progesterone only pill. A more detailed discussion about the mechanism of action was discussed with the patient, benefits and risks including high-risk of failure compared to other method of control and increase the risk of thrombosis and breast cancer with long-term use. All questions answered, the patient verbalized understanding. I spent a total of 20 minutes reviewing the chart, talking to the patient via video and documenting in the medical record. Coding Level of Care Code Tele Est Pt Level 1 (23998) Diagnoses Family planning Z30.09
== END 2024-04-29 08:07 | disposition home or self-care (01) ==
LOC: HO.HWS 13:11
PROVIDERS: PCP Internal Medicine; Visit Provider Obstetrics & Gynecology
DX: Z30.09 Encounter for other general counseling and advice on contraception (principal)
CPT/HCPCS: 99211

== ENCOUNTER → 2024-04-28 13:11 | Outpatient (BNVA) | payer OTHER, SELFPAY | PROVIDERS: PCP Internal Medicine; Visit Provider Obstetrics & Gynecology ==

== ENCOUNTER 2024-05-01 10:04 | Emergency (ER) | payer OTHER, SELFPAY ==
[2024-05-01] VITALS (8 sets, daily range): BP systolic 112–140; BP diastolic 62–79; PULSE 65–110; RESP 16–30; TEMP 35.9–37.1; O2SAT 97–99; BMI 26.6
--- NOTE | ~2024-05-01 | CT_ITS ---
EXAMINATION: CT ABDOMEN AND PELVIS WITH CONTRAST CLINICAL INFORMATION: Abdominal pain. COMPARISON: 04/01/2024 TECHNIQUE: Multidetector volumetric images were obtained from the superior aspect of the liver through the pubic symphysis following administration 85 mL of Omnipaque 350 intravenous contrast. Sagittal and coronal reformatted images were obtained on the technologist's workstation. Oral contrast: No This CT examination was performed using dose optimization techniques as appropriate, variously including the following: *Automated exposure control *Adjustment of mA and/or kV according to patient size (this includes techniques or standardized protocols for targeted exams where dose is matched to indication/reason for exam; i.e. extremities or head) *Use of iterative reconstruction technique DLP: 394 mGy-cm FINDINGS: LUNG BASES: Small hiatal hernia. LIVER, GALLBLADDER, AND BILIARY TREE: The liver is normal in size and contour. No focal hepatic lesion or biliary ductal dilatation is present. Gallstones. No pericholecystic inflammatory changes. PANCREAS: No ductal dilatation. SPLEEN: Not enlarged. ADRENAL GLANDS: No adrenal mass. KIDNEYS AND URETERS: Stable 1.4 cm hypodensity posterior lower pole right kidney. 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 The kidneys enhance symmetrically. No hydronephrosis or perinephric fluid collection. BLADDER: Unremarkable. GASTROINTESTINAL TRACT: Diverticular disease of the colon. No small bowel obstruction. Appendix is within normal limits. ABDOMINAL WALL: No significant hernia is appreciated. LYMPH NODES: No bulky lymphadenopathy. VASCULAR: Normal caliber abdominal aorta. PELVIC VISCERA: Unremarkable. OSSEOUS STRUCTURES: No acute osseous abnormality. Stable appearance of left hip hardware. CT/CT abdomen pelvis w IV con IMPRESSION: Cholelithiasis.
--- NOTE | 2024-05-01 10:21 | ED_ITS ---
HPI - General Adult General Chief complaint: Abdominal Pain Stated complaint: abd pain/n/v hx of chrons/ cdiff Time Seen by Provider: 05/01/24 10:20 Source: patient and EMS Mode of arrival: EMS Limitations: no limitations History of Present Illness ED Provider: Karen Araiza PA-C HPI narrative: Patient is a 48 year old assigned female at with a history of Crohn's, diverticulitis, and c.diff presenting to the emergency department today with abdominal pain. Patient states that over the last 2 days she has had intermittent abdominal pain. Patient denies any dizziness, lightheadedness, nausea, vomiting, fever, chills, blurry vision, double vision, loss of vision, chest pain, difficulty breathing, shortness of breath, back pain, night sweats, pain with urination, increased urinary frequency, increased urinary urgency, blood in her urine or stool, syncope or a near syncopal episode, recent trauma or falls, bowel incontinence, bladder incontinence, or any other complaints at this time. Onset (ago): day(s) (2) Location: abdomen Severity: moderate Severity scale (1-10): 5 Quality: aching Pain Consistency: intermittent and colicky Relieving factors: none Exacerbating factors: none Associated symptoms: denies other symptoms Treatments prior to arrival: none Related Data Home Medications ?Medication ?Instructions ?Recorded ?Confirmed dicyclomine 10 mg capsule 10 mg PO QID PRN Gastrointestinal 07/17/22 04/22/24 Spasms Or Cramping vedolizumab 300 mg intravenous 300 mg IV Q4W 10/16/22 04/22/24 solution (Entyvio) budesonide 3 mg 9 mg PO DAILY 11/14/22 04/22/24 capsule,delayed,extended release mesalamine 500 mg capsule,extended 1,000 mg PO QID 11/14/22 04/22/24 release duloxetine 30 mg capsule,delayed 30 mg PO BID 04/01/24 04/22/24 release omeprazole 40 mg capsule,delayed 40 mg PO DAILY 04/01/24 04/22/24 release cholestyramine (with sugar) 4 gram 4 g PO DAILY PRN Diarrhea 04/02/24 04/22/24 oral powder Previous Rx's ?Medication ?Instructions ?Recorded ondansetron 4 mg disintegrating 4 mg PO Q8H PRN nausea and 07/01/23 tablet vomiting #20 tabs clonidine HCl 0.1 mg tablet 0.1 mg PO TID PRN for anxiety #90 03/17/24 tabs lorazepam 1 mg tablet 1 mg PO TID anxiety 30 days #90 03/17/24 tabs lactobacillus combination no.4 3 3,000 mmu cells PO DAILY #30 caps 04/06/24 billion cell capsule (Probiotic) loperamide 2 mg capsule 2 mg PO Q4H PRN Diarrhea #15 caps 04/06/24 metronidazole 500 mg tablet 500 mg PO Q8H #15 tabs 04/06/24 sumatriptan succinate 50 mg tablet 50 mg PO DAILY MRX1 PRN Migraine 04/14/24 Headache #30 tabs tramadol 50 mg tablet 50 mg PO TID PRN pain 30 days #90 04/14/24 tabs zolpidem 12.5 mg tablet,extended 12.5 mg PO .COMPLEX PRN insomnia 04/27/24 release,multiphase 30 days #15 tabs Allergies Allergy/AdvReac Type Severity Reaction Status Date / Time meperidine [From Demerol] Allergy Severe SWELLING,RASH,THROAT Verified 05/01/24 10:53 CLOSES latex [LATEX] Allergy Mild RASH Verified 05/01/24 10:53 codeine [Codeine] AdvReac Intermediate NAUSEA/VOMITING, Verified 05/01/24 10:53 GI upset/vomiting duloxetine AdvReac Intermediate headaches Verified 05/01/24 10:53 trazodone AdvReac Mild Anxiety Verified 05/01/24 10:53 Fish Containing Products AdvReac Unknown NAUSEA/VOMI Verified 05/01/24 10:53 [Fish Product Derivatives] TING bupropion AdvReac Intermediate increased Uncoded 05/01/24 10:53 headaches Review of Systems 2 Constitutional: Constitutional: Reports no additional constitutional complaints, Denies chills, Denies fever(s) and Denies night sweats Eyes: Eyes: Reports no additional eye complaints, Denies blurry vision, Denies change in vision, Denies diplopia, Denies eye discharge, Denies loss of vision and Denies eye pain ENT: Denies dizziness Cardiovascular: Cardiovascular: Reports no additional cardiovascular complaints, Denies chest pain, Denies lightheadedness, Denies Loss of Consciousness and Denies dyspnea Respiratory: Respiratory: Reports no additional respiratory complaints and Denies dyspnea Gastrointestinal: Gastrointestinal: Reports no additional gastrointestinal complaints, Reports abdominal pain, Denies melena, Denies hematochezia, Denies change in bowel habits and Denies change in stool character Genitourinary: Genitourinary: Denies hematuria, Denies urinary frequency, Denies dysuria, Denies urinary incontinence, Denies urinary hesitancy and Denies urinary urgency Musculoskeletal: Musculoskeletal: Reports no additional musculoskeletal complaints, Denies numbness and Denies tingling Neurologic: Denies dizziness, Denies loss of vision, Denies numbness and Denies tingling Psychiatric: Psychiatric: Reports no additional psychiatric complaints Endocrine: Endocrine: Reports no additional endocrine complaints Hematologic/Lymphatic: Hematologic/Lymphatic: Reports no additional hematologic/lymphatic complaints Allergic/Immunologic: Allergic/Immunologic: Reports no additional allergic/immunologic complaints [facility] Past Medical History Attestation statement: The following information was validated with the patient. 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 Surgical History Hx of colonoscopy History of esophagogastroduodenoscopy (EGD) History of removal of calculus of renal pelvis through percutaneous nephrostomy (~10/2015) History of cryosurgery (~04/20/15) History of intestinal surgery History of arthroplasty (~01/2012) Family History Family History Father Crohn disease Migraine Cancer Mother HTN (hypertension) Vertigo Cervical cancer Maternal Grandmother HTN (hypertension) Hyperlipidemia Diabetes mellitus Paternal Grandmother Diabetes mellitus Other Mental health problem Social History Social History Household Members: Family Housing: House Do you presently have visiting nurse or other home services: No Unable to assess alcohol history related to: Unable to respond Alcohol intake: current Alcohol intake frequency: holidays/special occasions only Patient Tobacco Use Status: Former Tobacco user Tobacco use type: Cigarette Smoked in Last 30 Days: No e-Cigarette/Vaping Use: Former Use Second Hand Smoke Exposure: No Substance Use Type: Marijuana Advance Directives: Yes Advance Directives on File: Yes Advance Directives Date on File: 06/15/22 Patient : No service: No Current occupational status: unemployed Gender identity: Female Cognitive needs: No Hearing needs: No Vision needs: Yes (glasses) Physical Exam ED Vital Signs: Vital Signs - 24 hr 05/01/24 10:19 05/01/24 10:53 05/01/24 11:05 Temperature 96.6 F L 98.8 F Pulse Rate 65 87 Respiratory Rate 24 H 26 H 30 H Blood Pressure 112/62 112/62 Pulse Oximetry 99 98 Oxygen Delivery Method Room Air Room Air 05/01/24 11:16 05/01/24 13:34 05/01/24 15:47 Temperature 97.7 F 97.8 F Pulse Rate 94 110 H Respiratory Rate 30 H 16 24 H Blood Pressure 140/62 H 136/71 Pulse Oximetry 97 98 Oxygen Delivery Method Room Air Room Air 05/01/24 16:50 Temperature Pulse Rate 99 Respiratory Rate 18 Blood Pressure 131/79 Pulse Oximetry 99 Oxygen Delivery Method Room Air BMI result Body Mass Index 26.6 Const General: cooperative, no acute distress, alert and awake Nutritional Appearance: well nourished Orientation/consciousness: patient oriented x3 Limitations: no limitations [facility] Head: Yes normal to inspection and Yes atraumatic Ears: hearing grossly normal bilaterally and external ears normal General nose exam: Normal external nose present, no nasal discharge noted and no epistaxis Face and sinus: Yes normal facial exam, No abrasion and No laceration Mouth: Normal oral and palatal mucosa present, no drooling and no muffled voice Eyes General: appearance normal, both eyes and all related structures Periorbital: periorbital findings normal Eyelids: Yes eyelids normal Conjunctivae: conjunctivae normal Pupils: Equal, round and reactive pupils present EOM: EOMs intact bilaterally Neck Neck: Yes normal visual inspection, Yes full ROM and Yes no lymphadenopathy Chest Chest palpation & inspection: normal inspection of the chest Resp Effort & Inspection: normal respiratory effort and able to speak in complete sentences GI Inspection: Yes normal to inspection Palpation (GI): Soft to palpation, not firm, nontender and no guarding Neuro General: patient oriented x3 and moves all extremities Cranial nerves: Yes Equal, round and reactive pupils present Cognition (Neuro): normal cognition Motor exam (neuro): 5/5 motor strength present throughout Sensory Exam: Normal double simultaneous stimulation for sensation Coordination: [id number] test normal Extrem General: Yes normal to inspection, Yes full ROM and Yes capillary refill normal Psych Appearance: grossly normal Mental Status: mental status grossly normal Affect: normal affect Attitude: cooperative Thought process: Normal thought process present Thought content: Normal thought content present Insight: Good insight present (Psych) Medications Administered Discontinued Medications Generic Name Dose Route Start Last Admin Trade Name Freq PRN Reason Stop Dose Admin Droperidol 1.25 mg 05/01/24 13:04 05/01/24 13:08 Droperidol 5 Mg/2 Ml Vial IVPUSH 05/01/24 13:05 1.25 mg ONCE ONE Administration Droperidol 1.25 mg 05/01/24 15:58 05/01/24 16:06 Droperidol 5 Mg/2 Ml Vial IVPUSH 05/01/24 15:59 1.25 mg ONCE ONE Administration Hydromorphone HCl 1 mg 05/01/24 10:36 05/01/24 11:05 Hydromorphone Hcl 1 Mg/Ml Syringe IVPUSH 05/01/24 10:37 1 mg ONCE ONE Administration Protocol Sodium Chloride 1,000 mls @ 999 mls/hr 05/01/24 10:45 05/01/24 13:59 Ns IV 05/01/24 11:45 Infused .Q1H1M BENJAMIN Infusion Magnesium Sulfate 2 gm in 50 mls @ 25 mls/hr 05/01/24 13:32 05/01/24 16:07 Magnesium Sulfate/H2o IV 05/01/24 15:31 Infused ONCE ONE Infusion Iohexol 100 ml 05/01/24 15:14 05/01/24 15:14 Iohexol 350 Mg/Ml 100 Ml Infus..Btl IV 05/01/24 15:15 85 ml ONCE ONE Administration Lorazepam 0.5 mg 05/01/24 10:56 05/01/24 11:02 Lorazepam 0.5 Mg Tablet PO 05/01/24 10:57 0.5 mg ONCE ONE Administration Ondansetron HCl 4 mg 05/01/24 10:36 05/01/24 11:00 Ondansetron Hcl 4 Mg/2 Ml Vial IVPUSH 05/01/24 10:37 4 mg ONCE ONE Administration Medical Decision Making Medical Decision Making [facility] Narrative: Patient is a 48 year old assigned female at with a history of Crohn's, diverticulitis, and c.diff presenting to the emergency department today with intermittent abdominal pain. Patient's physical exam was unremarkable. Patient's blood work showed a mild hypomagensemia of 1.5 and a mild elevated WBC count of 11.7 but her labs were otherwise unremarkable. Patient's urine showed a possible UTI however, the sample was severely contaminated, will await culture report before initiating treatment. Patient's abdomen/pelvis CT showed cholelithiasis without cholecystitis or obstruction. Patient's clinical presentation is most consistent with biliary colic. I explained my physical exam findings as well as all test results to the patient. I answered all questions asked by the patient. Patient received multiple doses of pain medication which I confirmed helped her symptoms significantly during multiple re-evaluations. I stressed the importance of the patient taking her medication as prescribed. I stressed the importance of the patient following up with her primary care provider and a general surgeon. I stressed the importance of the patient returning to the emergency department immediately if her symptoms were to worsen or if she were to develop any dizziness, shortness of breath, difficulty breathing, chest pain, blurry vision, loss of vision, nausea, vomiting, abdominal pain, fever, chills, back pain, or any other complaints. Patient verbalized agreement and understanding with this treatment plan and discharge. Differential Diagnosis Differential Diagnoses: The differential diagnosis associated with the presentation includes Cholangitis Biliary colic Cholelithiasis Cholecystitis Diverticulitis Perforated bowel Admission/Observation Consideration of admission/observation: Escalation of care including admission/observation considered Patient would have been admitted to the hospital had her work up had any findings where hospital admission was appropriate and her clinical presentation warranted hospital admission. Lab Data [facility] Lab Attestation statement: I reviewed the patient's lab results. My interpretation of these results are in the [facility] Rationale portion of this note. 05/01/24 10:50 05/01/24 12:57 Labs: Lab Results 05/01/24 05/01/24 05/01/24 Range/Units 10:37 10:41 10:50 WBC 11.7 H (4.8-10.8) X10*3/uL RBC 4.63 (4.20-5.50) X10*6/uL Hgb 14.4 D (12.0-16.0) g/dl Hct 41.7 (37.0-47.0) % MCV 90.1 (80.0-98.0) fL MCH 31.1 (27.0-33.0) pg MCHC 34.5 (31.0-35.0) g/dl RDW 14.5 (11.0-16.0) % Plt Count 319 D (160-400) X10*3/uL MPV 10.0 (9.4-12.3) fL Immature Gran % (Auto) 0.6 H (0.0-0.4) % Neut % (Auto) 76.7 H (45-73) % Lymph % (Auto) 13.8 L (20-40) % Hood % (Auto) 8.1 (2-11) % Eos % (Auto) 0.3 (0-4) % Baso % (Auto) 0.5 (0-2) % Lymph # (Auto) 1.6 (1.2-4.9) X10*3/uL Hood # (Auto) 1.0 (0.1-1.2) X10*3/uL Eos # (Auto) 0.0 (0.0-0.4) X10*3/uL Baso # (Auto) 0.1 (0.0-0.2) X10*3/uL Abs Immat Gran (auto) 0.07 H (0.00-0.03) X10*3/uL Absolute Neuts (auto) 9.0 H (2.0-8.3) x10*3/uL Absolute Nucleated RBC 0.000 (0.0-0.012) X10*3/uL Nucleated RBC % (auto) 0.0 (0.0-0.2) /100WBC Sodium (135-145) mmol/L Potassium (3.3-5.1) mmol/L Chloride (96-108) mmol/L Carbon Dioxide (22-29) mmol/L Anion Gap (12-20) BUN (9-16) mg/dL Creatinine (0.5-1.4) mg/dL Estim Creat Clear Calc Estimated GFR Random Glucose (60-115) mg/dL Lactic Acid (0.5-2.0) mmol/L Calcium (8.4-10.2) mg/dL Magnesium (1.6-2.6) mg/dL Total Bilirubin (0.0-1.0) mg/dL AST (5-31) U/L ALT (0-31) U/L Alkaline Phosphatase (39-117) U/L Total Protein (6.5-8.0) g/dL Albumin (3.5-5.0) g/dL Urine Color Dark Yellow Urine Appearance Turbid Urine pH 8.0 (5.0-9.0) Ur Specific Knobel 1.025 (1.005-1.025) Urine Protein 30 (1+) H (Neg-Trace) mg/dL Urine Glucose (UA) Negative (Negative) mg/dL Urine Ketones 40 (Negative) mg/dL Urine Blood Negative (Negative) Urine Nitrite Negative (Negative) Ur Leukocyte Esterase Trace H (Negative) Urine RBC 0-2 (0-2) /HPF Urine WBC 0-5 (0-5) /HPF Ur Squamous Epith Cells 11-20 (0-2) /HPF Other Crystals Present Urine Bacteria 2+ (None Seen) Hyaline Casts 0-2 (0-2) /LPF Influenza Type A (PCR) NEGATIVE (Negative) Influenza Type B (PCR) NEGATIVE (Negative) RSV RNA Qual (PCR) NEGATIVE (Negative) SARS-CoV-2 RNA (RT-PCR) NEGATIVE (Negative) 05/01/24 05/01/24 Range/Units 12:17 12:57 WBC (4.8-10.8) X10*3/uL RBC (4.20-5.50) X10*6/uL Hgb (12.0-16.0) g/dl Hct (37.0-47.0) % MCV (80.0-98.0) fL MCH (27.0-33.0) pg MCHC (31.0-35.0) g/dl RDW (11.0-16.0) % Plt Count (160-400) X10*3/uL MPV (9.4-12.3) fL Immature Gran % (Auto) (0.0-0.4) % Neut % (Auto) (45-73) % Lymph % (Auto) (20-40) % Hood % (Auto) (2-11) % Eos % (Auto) (0-4) % Baso % (Auto) (0-2) % Lymph # (Auto) (1.2-4.9) X10*3/uL Hood # (Auto) (0.1-1.2) X10*3/uL Eos # (Auto) (0.0-0.4) X10*3/uL Baso # (Auto) (0.0-0.2) X10*3/uL Abs Immat Gran (auto) (0.00-0.03) X10*3/uL Absolute Neuts (auto) (2.0-8.3) x10*3/uL Absolute Nucleated RBC (0.0-0.012) X10*3/uL Nucleated RBC % (auto) (0.0-0.2) /100WBC Sodium 140 (135-145) mmol/L Potassium 3.6 (3.3-5.1) mmol/L Chloride 109 H (96-108) mmol/L Carbon Dioxide 19 L (22-29) mmol/L Anion Gap 16 (12-20) BUN 8 L (9-16) mg/dL Creatinine 0.70 (0.5-1.4) mg/dL Estim Creat Clear Calc 98.1 Estimated GFR > 60 Random Glucose 99 (60-115) mg/dL Lactic Acid 1.6 (0.5-2.0) mmol/L Calcium 8.7 (8.4-10.2) mg/dL Magnesium 1.5 L (1.6-2.6) mg/dL Total Bilirubin 0.5 (0.0-1.0) mg/dL AST 14 (5-31) U/L ALT 14 (0-31) U/L Alkaline Phosphatase 87 (39-117) U/L Total Protein 6.8 (6.5-8.0) g/dL Albumin 3.6 (3.5-5.0) g/dL Urine Color Urine Appearance Urine pH (5.0-9.0) Ur Specific Knobel (1.005-1.025) Urine Protein (Neg-Trace) mg/dL Urine Glucose (UA) (Negative) mg/dL Urine Ketones (Negative) mg/dL Urine Blood (Negative) Urine Nitrite (Negative) Ur Leukocyte Esterase (Negative) Urine RBC (0-2) /HPF Urine WBC (0-5) /HPF Ur Squamous Epith Cells (0-2) /HPF Other Crystals Urine Bacteria (None Seen) Hyaline Casts (0-2) /LPF Influenza Type A (PCR) (Negative) Influenza Type B (PCR) (Negative) RSV RNA Qual (PCR) (Negative) SARS-CoV-2 RNA (RT-PCR) (Negative) Independent Interpretation I performed an independent interpretation of an: CT Scan Interpretation: My interpretation is in agreement with the radiologist's impression of this imaging study. - EXAMINATION: CT ABDOMEN AND PELVIS WITH CONTRAST CLINICAL INFORMATION: Abdominal pain. COMPARISON: 04/01/2024 TECHNIQUE: Multidetector volumetric images were obtained from the superior aspect of the liver through the pubic symphysis following administration 85 mL of Omnipaque 350 intravenous contrast. Sagittal and coronal reformatted images were obtained on the technologist's workstation. Oral contrast: No This CT examination was performed using dose optimization techniques as appropriate, variously including the following: *Automated exposure control *Adjustment of mA and/or kV according to patient size (this includes techniques or standardized protocols for targeted exams where dose is matched to indication/reason for exam; i.e. extremities or head) *Use of iterative reconstruction technique DLP: 394 mGy-cm FINDINGS: LUNG BASES: Small hiatal hernia. LIVER, GALLBLADDER, AND BILIARY TREE: The liver is normal in size and contour. No focal hepatic lesion or biliary ductal dilatation is present. Gallstones. No pericholecystic inflammatory changes. PANCREAS: No ductal dilatation. SPLEEN: Not enlarged. ADRENAL GLANDS: No adrenal mass. KIDNEYS AND URETERS: Stable 1.4 cm hypodensity posterior lower pole right kidney. 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 The kidneys enhance symmetrically. No hydronephrosis or perinephric fluid collection. BLADDER: Unremarkable. GASTROINTESTINAL TRACT: Diverticular disease of the colon. No small bowel obstruction. Appendix is within normal limits. ABDOMINAL WALL: No significant hernia is appreciated. LYMPH NODES: No bulky lymphadenopathy. VASCULAR: Normal caliber abdominal aorta. PELVIC VISCERA: Unremarkable. OSSEOUS STRUCTURES: No acute osseous abnormality. Stable appearance of left hip hardware. CT/CT abdomen pelvis w IV con IMPRESSION: Cholelithiasis. Dictated By: Geri Vera MD Signed By: Electronically signed by Geri Vera MD 05/01/24 5595 Radiology Impression Discussion of test interpretation with radiology: I have reviewed the radiologist's reading. Independent Historian Clinical information obtained from an independent historian. History obtained from or confirmed by: EMS (EMS provided additional history and confirmed the history provided by the patient) Critical Care Time Critical Care Time Critical Care Time: Yes Total Critical Care Time: 42 Attestation: I spent 48 minutes of Critical Care Time with this patient. This does not include time spent on separately reported billable procedures. Discharge Plan Discharge Clinical Impression: Cholelithiasis, Abdominal pain, Biliary colic Patient Disposition: Home, Self-Care Instructions: Biliary Colic (ED), Gallstones (ED), Abdominal Pain (ED) Additional Instructions: Follow up with your primary care provider and a general surgeon (for your gallstones). Stick to a bland diet. Avoid acidic and fatty foods. Return to the emergency department immediately if your symptoms worsen or if you develop any dizziness, shortness of breath, difficulty breathing, chest pain, blurry vision, loss of vision, nausea, vomiting, abdominal pain, fever, chills, back pain, or any other complaints. Prescriptions: No Action ondansetron 4 mg tablet,disintegrating 4 mg PO Q8H PRN (Reason: nausea and vomiting) Qty: 20 0RF lorazepam 1 mg tablet 1 mg PO TID 30 Days Qty: 90 0RF clonidine HCl 0.1 mg tablet 0.1 mg PO TID PRN (Reason: for anxiety) Qty: 90 2RF sumatriptan succinate 50 mg tablet 50 mg PO DAILY MRX1 PRN (Reason: Migraine Headache) Qty: 30 0RF tramadol 50 mg tablet 50 mg PO TID PRN (Reason: pain) 30 Days Qty: 90 0RF zolpidem 12.5 mg tablet,ext release multiphase 12.5 mg PO .COMPLEX PRN (Reason: insomnia) 30 Days Qty: 15 3RF Rx Instructions: 12.5 mg orally every other night PRN; budesonide 3 mg capsule,delayed,extend.release 9 mg PO DAILY mesalamine 500 mg capsule, extended release 1,000 mg PO QID omeprazole 40 mg capsule,delayed release(DR/EC) 40 mg PO DAILY duloxetine 30 mg capsule,delayed release(DR/EC) 30 mg PO BID cholestyramine (with sugar) 4 gram Powder 4 g PO DAILY PRN (Reason: Diarrhea) loperamide 2 mg Capsule 2 mg PO Q4H PRN (Reason: Diarrhea) Qty: 15 0RF metronidazole 500 mg Tablet 500 mg PO Q8H Qty: 15 0RF Probiotic 3 billion cell capsule 3,000 mmu cells PO DAILY Qty: 30 0RF Rx Instructions: administer with a meal Entyvio 300 mg recon soln 300 mg IV Q4W Rx Instructions: administer over 30 mins dicyclomine 10 mg capsule 10 mg PO QID PRN (Reason: Gastrointestinal Spasms Or Cramping) Referrals: [facility] [place] [facility] [Provider Group] (Call to establish and follow up with a general surgeon to discuss your gallstones.) Jaswant rFank MD [Primary Care Provider] - Discharge Date/Time: 05/01/24 18:07 Print Language: Maltese
[2024-05-01 10:43] LABS: Appearance Urine Turbid; Color Urine Dark Yellow; Glucose Urine UA Negative (Negative); Leukocyte Esterase Urine Trace (Negative); Nitrite Urine Negative (Negative); Specific Gravity - Urine 1.025 (1.005-1.025); UMIC TRIGGER UACC YES; Urine Blood Negative (Negative); Urine Ketones 40 mg/dL (Negative); Urine Protein 30 (1+) mg/dL (Neg-Trace)
[2024-05-01 10:54] LABS: MANUAL DIFF FLAG NO
[2024-05-01 10:56] LABS: Basophils Absolute Auto 0.1 X10*3/uL (0.0-0.2); Basophils Percent Auto 0.5 % (0-2); Eosinophils Percent Auto 0.3 % (0-4); Hematocrit 41.7 % (37.0-47.0); Hemoglobin 14.4 g/dl (12.0-16.0); Imm Gran Abs Auto 0.07 X10*3/uL (0.00-0.03); Imm Gran Pct Auto 0.6 % (0.0-0.4); Lymphocytes Absolute Auto 1.6 X10*3/uL (1.2-4.9); Lymphocytes Percent Auto 13.8 % (20-40); Mean Corpuscular HGB Conc 34.5 g/dl (31.0-35.0); Mean Corpuscular Hemoglobin 31.1 pg (27.0-33.0); Mean Corpuscular Volume 90.1 fL (80.0-98.0); Monocytes Percent Auto 8.1 % (2-11); Neutrophils Percent Auto 76.7 % (45-73); Platelet Count 319 X10*3/uL (160-400); Red Blood Count 4.63 X10*6/uL (4.20-5.50); Red Cell Distribution Width 14.5 % (11.0-16.0); White Blood Count 11.7 X10*3/uL (4.8-10.8)
[2024-05-01] MEDS: ondansetron HCL 4 MG/2 ML VIAL IVPUSH (11:00)
[2024-05-01] MEDS: LORazepam 0.5 MG TABLET PO (11:02)
[2024-05-01] MEDS: HYDROmorphone HCl 1 MG/ML SYRINGE IVPUSH (11:05)
[2024-05-01 11:09] LABS: Bacteria Urine 2+ (None Seen); Hyaline Casts Urine 0-2 /LPF (0-2); Other Crystals Urine Present; RBC Urine 0-2 /HPF (0-2); WBC Urine 0-5 /HPF (0-5)
[2024-05-01] MEDS: 0.9 % Sodium Chloride 1,000 ML 999 ML IV (11:09)
--- NOTE | 2024-05-01 11:20 | PC.NURSE ---
patient arrives via EMS for cc of abdominal pain for the past few days and worsening today, upon arrival patient visibly very anxious, tachypneic and requiring frequent redirection, patient states she has a hx of chrons, diverticulitis and cdiff. patient states she takes medications every day for her anxiety but did not take any today, piv placed by this RN. patient still anxious, provider in to see patient and patient medicated per MAR with good effect.
[2024-05-01 11:35] LABS: Influenza A PCR NEGATIVE (Negative); Influenza B PCR NEGATIVE (Negative); Resp Syncy Virus RNA Qual PCR NEGATIVE (Negative); SARS COV2 PCR INHOUSE NEGATIVE (Negative)
[2024-05-01 12:33] LABS: Lactic Acid 1.6 mmol/L (0.5-2.0)
[2024-05-01] MEDS: droPERidol 5 MG/2 ML VIAL 1.25 MG IVPUSH ×2 (13:08→16:06)
--- NOTE | 2024-05-01 13:17 | PC.NURSE ---
patient ambulatory with steady gait to bathroom, patient still endorsing pain and nausea. medicated per MAR., patient placed back on stretcher and probe operator by this RN. all safety maintained.
[2024-05-01 13:25] LABS: Alanine Aminotransferase 14 U/L (0-31); Albumin Level 3.6 g/dL (3.5-5.0); Alkaline Phosphatase 87 U/L (39-117); Anion Gap 16 (12-20); Aspartate Amino Transferase 14 U/L (5-31); Bilirubin Total 0.5 mg/dL (0.0-1.0); Blood Urea Nitrogen 8 mg/dL (9-16); Calcium 8.7 mg/dL (8.4-10.2); Carbon Dioxide 19 mmol/L (22-29); Chloride 109 mmol/L (96-108); Creatinine Clr Calc Pharmacy 98.1; Estimated Glomerular Filt Rate > 60; Glucose Random 99 mg/dL (60-115); Magnesium 1.5 mg/dL (1.6-2.6); Potassium 3.6 mmol/L (3.3-5.1); Sodium 140 mmol/L (135-145); Total Protein 6.8 g/dL (6.5-8.0)
--- NOTE | 2024-05-01 13:54 | PC.NURSE ---
patient noted to have accidentally pulled out IV, 2new PIV placed. patient now resting comfortably on stretcher since medication administration, endorsing some relief from symptoms
[2024-05-01] MEDS: Magnesium Sulfate/H2O 2 GM/50 ML PIGGYBACK IV (13:57)
[2024-05-01] MEDS: iohexoL 350 MG/ML 100 ML INFUS..BTL IV (15:14)
== END 2024-05-01 18:07 | disposition home or self-care (01) ==
PROVIDERS: Physician Assistant Medical; Emergency Provider Emergency Medicine; PCP Internal Medicine
DX: K80.20 Calculus of gallbladder without cholecystitis without obstruction (principal); K80.50 Calculus of bile duct without cholangitis or cholecystitis without obstruction; R11.0 Nausea; Z03.818 Encounter for observation for suspected exposure to other biological agents ruled out; Z79.899 Other long term (current) drug therapy
CPT/HCPCS: 0241U; 36415; 74177; 80053; 81001; 83605; 83735; 85025; 87040; 96361; 96365; 96366; 96375; 96376; 99285; J1170; J1790; J2405; J3475; Q9967

== ENCOUNTER 2024-05-03 12:18 | Emergency (ER) | payer OTHER, SELFPAY ==
--- NOTE | ~2024-05-03 | US_ITS ---
EXAMINATION: US ABDOMEN LIMITED CLINICAL INFORMATION: History of cholelithiasis, rule out acute cholecystitis. COMPARISON: CT abdomen and pelvis 05/01/2024 TECHNIQUE: Real-time imaging of the gallbladder and common bile duct. FINDINGS: GALLBLADDER: The gallbladder is physiologically distended with hyperechoic lesion measuring 1.4 x 0.8 x 1.7 cm. No definite associated shadowing. No internal vascularity. No gallbladder wall thickening or pericholecystic fluid. Negative sonographic Calles's sign. COMMON BILE DUCT: Normal in caliber measuring 0.5 cm in diameter. US/US abdomen limited IMPRESSION: 1.7 cm hyperechoic lesion within the lumen of the gallbladder. No associated shadowing or internal vascularity. Findings are favored to represent biliary sludge. No definite secondary signs of acute cholecystitis.
--- NOTE | ~2024-05-03 | US_ITS ---
EXAMINATION: US RETROPERITONEAL LIMITED (RENAL ONLY) CLINICAL INFORMATION: Flank pain. COMPARISON: CT abdomen/pelvis 05/01/2024. TECHNIQUE: Real-time imaging of the kidneys. FINDINGS: Limited examination secondary to patient motion. RIGHT KIDNEY: 10.3 x 5 x 4.7 cm (SAG x AP x TRV). No hydronephrosis. A few up to 0.3 cm hyperechoic foci that could represent a combination of calculi and vascular calcifications. LEFT KIDNEY: 9.4 x 4.1 x 4.3 cm (SAG x AP x TRV). No hydronephrosis. As above, a few punctate hyperechoic foci are noted with similar differential considerations. US/US renal BI IMPRESSION: Limited examination secondary to patient motion. 1. No hydronephrosis. 2. A few punctate hyperechoic foci in both kidneys could represent calculi and/or vascular calcifications.
[2024-05-03 12:21] VITALS: BP 153/81; PULSE 99; RESP 19; TEMP 36.6; O2SAT 99; BMI 27.4
--- NOTE | 2024-05-03 12:22 | ED.ABDPAIN ---
HPI - Abdominal Pain General Chief Complaint: Abdominal Pain Stated Complaint: stomach and back pain, tingling head to toes, sob Time Seen by Provider: 05/03/24 12:40 Source: patient and family Mode of arrival: ambulatory Limitations: no limitations History of Present Illness ED Provider: Harris FELIZ HPI narrative: This is a 48-year-old female history of substance use disorder, diverticulitis, Crohns disease on Entyvio followed by Dr. Alexis , Brett, kidney stones, anxiety, insomnia, depression, migraines, intractable nausea and vomiting, presenting to the emergency department with complaints of abdominal pain localized to the right upper quadrant as well as bilateral flank pain patient reports she was seen here yesterday for the same thing, pain has gotten much worse, she reports she is in so much pain she feels like she can not breathe and she feels like her hands and legs are tingling, she is very anxious. Reports this has been going on for the past few weeks worsening acutely the past 2-3 days. Also reports difficulty initiating urinary stream Denies fevers, chills, cp, nausea, vomiting, changes in bowel habits, headache, vision changes. Related Data Home Medications ?Medication ?Instructions ?Recorded ?Confirmed dicyclomine 10 mg capsule 10 mg PO QID PRN Gastrointestinal 07/17/22 04/22/24 Spasms Or Cramping vedolizumab 300 mg intravenous 300 mg IV Q4W 10/16/22 04/22/24 solution (Entyvio) budesonide 3 mg 9 mg PO DAILY 11/14/22 04/22/24 capsule,delayed,extended release mesalamine 500 mg capsule,extended 1,000 mg PO QID 11/14/22 04/22/24 release duloxetine 30 mg capsule,delayed 30 mg PO BID 04/01/24 04/22/24 release omeprazole 40 mg capsule,delayed 40 mg PO DAILY 04/01/24 04/22/24 release cholestyramine (with sugar) 4 gram 4 g PO DAILY PRN Diarrhea 04/02/24 04/22/24 oral powder Previous Rx's ?Medication ?Instructions ?Recorded ondansetron 4 mg disintegrating 4 mg PO Q8H PRN nausea and 07/01/23 tablet vomiting #20 tabs clonidine HCl 0.1 mg tablet 0.1 mg PO TID PRN for anxiety #90 03/17/24 tabs lorazepam 1 mg tablet 1 mg PO TID anxiety 30 days #90 03/17/24 tabs lactobacillus combination no.4 3 3,000 mmu cells PO DAILY #30 caps 04/06/24 billion cell capsule (Probiotic) loperamide 2 mg capsule 2 mg PO Q4H PRN Diarrhea #15 caps 04/06/24 metronidazole 500 mg tablet 500 mg PO Q8H #15 tabs 04/06/24 sumatriptan succinate 50 mg tablet 50 mg PO DAILY MRX1 PRN Migraine 04/14/24 Headache #30 tabs tramadol 50 mg tablet 50 mg PO TID PRN pain 30 days #90 04/14/24 tabs zolpidem 12.5 mg tablet,extended 12.5 mg PO .COMPLEX PRN insomnia 04/27/24 release,multiphase 30 days #15 tabs Allergies Allergy/AdvReac Type Severity Reaction Status Date / Time meperidine [From Demerol] Allergy Severe SWELLING,RASH,THROAT Verified 05/03/24 12:22 CLOSES latex [LATEX] Allergy Mild RASH Verified 05/03/24 12:22 codeine [Codeine] AdvReac Intermediate NAUSEA/VOMITING, Verified 05/03/24 12:22 GI upset/vomiting duloxetine AdvReac Intermediate headaches Verified 05/03/24 12:22 trazodone AdvReac Mild Anxiety Verified 05/03/24 12:22 Fish Containing Products AdvReac Unknown NAUSEA/VOMI Verified 05/03/24 12:22 [Fish Product Derivatives] TING bupropion AdvReac Intermediate increased Uncoded 05/03/24 12:22 headaches Review of Systems Review of Systems Yes all other systems are reviewed and are negative [facility] Past Medical History Attestation statement: The following information was validated with the patient. 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 Surgical History Hx of colonoscopy History of esophagogastroduodenoscopy (EGD) History of removal of calculus of renal pelvis through percutaneous nephrostomy (~10/2015) History of cryosurgery (~04/20/15) History of intestinal surgery History of arthroplasty (~01/2012) Family History Family History Father Crohn disease Migraine Cancer Mother HTN (hypertension) Vertigo Cervical cancer Maternal Grandmother HTN (hypertension) Hyperlipidemia Diabetes mellitus Paternal Grandmother Diabetes mellitus Other Mental health problem Social History Social History Household Members: Family Housing: House Do you presently have visiting nurse or other home services: No Unable to assess alcohol history related to: Unable to respond Alcohol intake: current Alcohol intake frequency: holidays/special occasions only Patient Tobacco Use Status: Former Tobacco user Tobacco use type: Cigarette Smoked in Last 30 Days: No e-Cigarette/Vaping Use: Former Use Second Hand Smoke Exposure: No Substance Use Type: Marijuana Advance Directives: Yes Advance Directives on File: Yes Advance Directives Date on File: 06/15/22 service: No Current occupational status: unemployed Gender identity: Female Cognitive needs: No Hearing needs: No Vision needs: Yes (glasses) Physical Exam ED Vital Signs: Vital Signs - 24 hr 05/03/24 12:21 05/03/24 13:10 05/03/24 14:18 Temperature 98 F Pulse Rate 99 63 Respiratory Rate 19 34 H 24 H Blood Pressure 153/81 H 122/68 Pulse Oximetry 99 100 Oxygen Delivery Method Room Air Room Air BMI result Body Mass Index 27.4 vss Appearance: Alert.? Oriented X3.? No acute distress.? Head: Normocephalic, atraumatic, no step-offs or deformities Eyes: Pupils equal, round and reactive to light.? ENT: Pharynx normal.? Neck: Normal inspection.? Neck supple.? CVS: Normal heart rate and rhythm.? Pulses normal.? Respiratory: No respiratory distress.? Breath sounds normal.? Abdomen: Soft and tenderness with palpation of right upper quadrant.? Skin: Skin warm and dry.? Normal skin color.? Normal skin turgor.? Extremities: No lower extremity edema.? No calf ttp. 5/5 strength to bilateral upper and lower extremities Back: No midline tenderness, no C-spine tenderness, full range of motion, no CVA tenderness bilaterally Neuro: Oriented X 3.? No motor deficit.? No sensory deficit. CN 2-12 intact Course Course Course Narrative: This is a Rapid Medical Examination (RME) performed by Arley Romo PA-C in triage. Full HPI, ROS, assessment and treatment plan per primary provider in the Main ED. 48 yo female hx of Crohn's disease on Entyvio followed by Dr. Alexis, depression, obesity here for eval of continued and worsening abdominal pain since being discharged from [facility] 2 days ago. Reports similar symptoms, evaluated at [facility] and was found to have cholelithiasis. Discharged home with follow-up. Presents today with continued pain. She is very anxious in triage. Sobbing. Hyperventilating. Abdomen tender to palpation of right upper quadrant. No jaundice. Sclerae anicteric. Plan: labs, abd US, UA. Reevaluation(s) Reevaluation #1: CBC unremarkable. Chemistry with elevated lactic acid 2.1 unclear etiology. Elevated calcium 10.7. Will give fluid hydration at this time. At this time infection suspected Zosyn as well as fluids ordered. Patient still in pain, nauseous, feeling unwell, screaming droperidol ordered. US pending and urine pending Time: 14:59 Reevaluation #2: Renal ultrasound no hydronephrosis. A few punctate hyperechoic foci in both kidneys could represent calculi and/or vascular calcifications unlikely causing patient's pain. Ultrasound abdomen 1.7 cm hyperechoic lesion within the lumen of the gallbladder no associated shadowing or interval vascularity. Findings are favored to represent biliary sludge. I did discuss this with surgery he tells me this is not acute cholecystitis. Plan pain control then DC home. Sign out to Aryan Dial Time: 15:49 Medical Decision Making Medical Decision Making MDM Narrative: 48-year-old female presents with anxiety, flank pain and abdominal pain in the right upper quadrant Physical exam threat upper quadrant tenderness on palpation and bilateral flank discomfort. History and physical exam concerning cholelithiasis with likely superimposed cholecystitis versus nephrolithiasis versus obstructing uropathy. Will rule out cholangitis, choledocholithiasis. Unlikely obstruction, acute abdomen, pancreatitis, diverticulitis, appendicitis. Will rule out metabolic derangements and urinary infection. Plan will give Dilaudid for pain control will obtain labs, imaging, urine. Differential Diagnosis Differential Diagnoses: The differential diagnosis associated with the presentation includes History and physical exam concerning cholelithiasis with likely superimposed cholecystitis versus nephrolithiasis versus obstructing uropathy. Will rule out cholangitis, choledocholithiasis. Unlikely obstruction, acute abdomen, pancreatitis, diverticulitis, appendicitis. Will rule out metabolic derangements and urinary infection. Admission/Observation Consideration of admission/observation: Escalation of care including admission/observation considered Lab Data MDM Lab Attestation statement: I reviewed the patient's lab results. 05/03/24 13:09 05/03/24 13:09 Labs: Lab Results 05/03/24 05/03/24 05/03/24 Range/Units 13:09 15:09 15:10 WBC 9.8 (4.8-10.8) X10*3/uL RBC 4.95 (4.20-5.50) X10*6/uL Hgb 15.3 (12.0-16.0) g/dl Hct 44.2 (37.0-47.0) % MCV 89.3 (80.0-98.0) fL MCH 30.9 (27.0-33.0) pg MCHC 34.6 (31.0-35.0) g/dl RDW 14.6 (11.0-16.0) % Plt Count 336 (160-400) X10*3/uL MPV 10.1 (9.4-12.3) fL Immature Gran % (Auto) 0.4 (0.0-0.4) % Neut % (Auto) 82.0 H (45-73) % Lymph % (Auto) 12.0 L (20-40) % [place] % (Auto) 5.0 (2-11) % Eos % (Auto) 0.2 (0-4) % Baso % (Auto) 0.4 (0-2) % Lymph # (Auto) 1.2 (1.2-4.9) X10*3/uL [place] # (Auto) 0.5 (0.1-1.2) X10*3/uL Eos # (Auto) 0.0 (0.0-0.4) X10*3/uL Baso # (Auto) 0.0 (0.0-0.2) X10*3/uL Abs Immat Gran (auto) 0.04 H (0.00-0.03) X10*3/uL Absolute Neuts (auto) 8.0 (2.0-8.3) x10*3/uL Absolute Nucleated RBC 0.000 (0.0-0.012) X10*3/uL Nucleated RBC % (auto) 0.0 (0.0-0.2) /100WBC Sodium 139 (135-145) mmol/L Potassium 4.3 (3.3-5.1) mmol/L Chloride 105 (96-108) mmol/L Carbon Dioxide 19 L (22-29) mmol/L Anion Gap 19 (12-20) BUN 13 (9-16) mg/dL Creatinine 0.86 (0.5-1.4) mg/dL Estim Creat Clear Calc 72.3 Estimated GFR > 60 Random Glucose 94 (60-115) mg/dL Lactic Acid 2.1 H* (0.5-2.0) mmol/L Calcium 10.7 H D (8.4-10.2) mg/dL Magnesium 1.9 (1.6-2.6) mg/dL Total Bilirubin 0.5 (0.0-1.0) mg/dL AST 23 (5-31) U/L ALT 20 (0-31) U/L Alkaline Phosphatase 93 (39-117) U/L Total Protein 8.7 H (6.5-8.0) g/dL Albumin 4.4 (3.5-5.0) g/dL Lipase 21 (8-78) U/L Urine Color Yellow Urine Appearance Cloudy Urine pH >= 9.0 (5.0-9.0) Ur Specific [place] 1.025 (1.005-1.025) Urine Protein Trace (Neg-Trace) mg/dL Urine Glucose (UA) Negative (Negative) mg/dL Urine Ketones 80 (Negative) mg/dL Urine Blood Negative (Negative) Urine Nitrite Negative (Negative) Ur Leukocyte Esterase Negative (Negative) Urine Test NEGATIVE (NEGATIVE) Ethyl Alcohol < 10 mg/dL Independent Interpretation I performed an independent interpretation of an: Ultrasound Radiology Impression Discussion of test interpretation with radiology: I have reviewed the radiologist's reading. External Record Review External record reviewed: Inpatient record, Office record, Outpatient record, Prior outpatient labs, Prior outpatient radiology, Primary care record and Outside ED record Chronic Conditions Patient?s care impacted by: Other ( substance use disorder, diverticulitis, Crohns disease on Entyvio followed by Jim Solares, kidney stones, anxiety, insomnia, depression, migraines, intractable nausea and vomiting, ) Medications Administered Discontinued Medications Generic Name Dose Route Start Last Admin Trade Name Freq PRN Reason Stop Dose Admin Droperidol 1.25 mg 05/03/24 14:50 05/03/24 15:22 Droperidol 5 Mg/2 Ml Vial IVPUSH 05/03/24 14:51 1.25 mg ONCE ONE Administration Hydromorphone HCl 1 mg 05/03/24 12:40 05/03/24 13:10 Hydromorphone Hcl 1 Mg/Ml Syringe IVPUSH 05/03/24 12:41 1 mg ONCE ONE Administration Protocol Sodium Chloride 1,000 mls @ 999 mls/hr 05/03/24 12:45 05/03/24 13:10 Ns IV 05/03/24 13:45 999 mls/hr .Q1H1M BENJAMIN Administration Sodium Chloride 2,041.17 mls @ 2,041.17 mls/hr 05/03/24 14:57 05/03/24 15:31 Ns 30 ml/kg infuse over 1 hr (2041.17 ml) 05/03/24 15:56 1,047.17 mls/hr IV Administration .Q1H STA Piperacillin Sod/Tazobactam 50 mls @ 100 mls/hr 05/03/24 14:57 05/03/24 15:29 Sod 3.375 gm/ Sodium Chloride IV 05/03/24 15:26 100 mls/hr ONCE ONE Administration Critical Care Time Critical Care Time Critical Care Time: Yes Total Critical Care Time: 45 Attestation: I attest to this time spent taking care of the patient, obtaining history, physical, reviewing labs, imaging, speaking to my attending, specialist or hospitalist. Discharge Plan Discharge Clinical Impression: Abdominal pain, Flank pain Patient Disposition: Still a Patient Additional Instructions: Take your medications as prescribed. If you were prescribed antibiotics today, it is important that you take your medication to their entirety, do not skip any doses, do not finish them early. Follow-up with your primary care provider this week. Return to the emergency department with new or worsening symptoms. Such as fevers, chills, chest pain, shortness of breath, nausea, vomiting, dizziness, headache, vision changes, lethargy In case of emergency call 911 US/US abdomen limited IMPRESSION: 1.7 cm hyperechoic lesion within the lumen of the gallbladder. No associated shadowing or internal vascularity. Findings are favored to represent biliary sludge. No definite secondary signs of acute cholecystitis. US/US renal BI IMPRESSION: Limited examination secondary to patient motion. 1. No hydronephrosis. 2. A few punctate hyperechoic foci in both kidneys could represent calculi and/or vascular calcifications. Prescriptions: No Action ondansetron 4 mg tablet,disintegrating 4 mg PO Q8H PRN (Reason: nausea and vomiting) Qty: 20 0RF lorazepam 1 mg tablet 1 mg PO TID 30 Days Qty: 90 0RF clonidine HCl 0.1 mg tablet 0.1 mg PO TID PRN (Reason: for anxiety) Qty: 90 2RF sumatriptan succinate 50 mg tablet 50 mg PO DAILY MRX1 PRN (Reason: Migraine Headache) Qty: 30 0RF tramadol 50 mg tablet 50 mg PO TID PRN (Reason: pain) 30 Days Qty: 90 0RF zolpidem 12.5 mg tablet,ext release multiphase 12.5 mg PO .COMPLEX PRN (Reason: insomnia) 30 Days Qty: 15 3RF Rx Instructions: 12.5 mg orally every other night PRN; budesonide 3 mg capsule,delayed,extend.release 9 mg PO DAILY mesalamine 500 mg capsule, extended release 1,000 mg PO QID omeprazole 40 mg capsule,delayed release(DR/EC) 40 mg PO DAILY duloxetine 30 mg capsule,delayed release(DR/EC) 30 mg PO BID cholestyramine (with sugar) 4 gram Powder 4 g PO DAILY PRN (Reason: Diarrhea) loperamide 2 mg Capsule 2 mg PO Q4H PRN (Reason: Diarrhea) Qty: 15 0RF metronidazole 500 mg Tablet 500 mg PO Q8H Qty: 15 0RF Probiotic 3 billion cell capsule 3,000 mmu cells PO DAILY Qty: 30 0RF Rx Instructions: administer with a meal Entyvio 300 mg recon soln 300 mg IV Q4W Rx Instructions: administer over 30 mins dicyclomine 10 mg capsule 10 mg PO QID PRN (Reason: Gastrointestinal Spasms Or Cramping) Print Language: Icelandic
[2024-05-03 13:10] VITALS: RESP 34
[2024-05-03] MEDS: HYDROmorphone HCl 1 MG/ML SYRINGE IVPUSH ×2 (13:10→18:59)
[2024-05-03] MEDS: 0.9 % Sodium Chloride 1,000 ML 999 ML IV (13:10)
[2024-05-03 13:14] LABS: MANUAL DIFF FLAG NO
[2024-05-03 13:22] LABS: Basophils Percent Auto 0.4 % (0-2); Eosinophils Percent Auto 0.2 % (0-4); Hematocrit 44.2 % (37.0-47.0); Hemoglobin 15.3 g/dl (12.0-16.0); Imm Gran Abs Auto 0.04 X10*3/uL (0.00-0.03); Imm Gran Pct Auto 0.4 % (0.0-0.4); Lymphocytes Absolute Auto 1.2 X10*3/uL (1.2-4.9); Mean Corpuscular HGB Conc 34.6 g/dl (31.0-35.0); Mean Corpuscular Hemoglobin 30.9 pg (27.0-33.0); Mean Corpuscular Volume 89.3 fL (80.0-98.0); Mean Platelet Volume 10.1 fL (9.4-12.3); Monocytes Absolute Auto 0.5 X10*3/uL (0.1-1.2); Platelet Count 336 X10*3/uL (160-400); Red Blood Count 4.95 X10*6/uL (4.20-5.50); Red Cell Distribution Width 14.6 % (11.0-16.0); White Blood Count 9.8 X10*3/uL (4.8-10.8)
[2024-05-03 13:40] LABS: Alanine Aminotransferase 20 U/L (0-31); Albumin Level 4.4 g/dL (3.5-5.0); Alkaline Phosphatase 93 U/L (39-117); Anion Gap 19 (12-20); Aspartate Amino Transferase 23 U/L (5-31); Bilirubin Total 0.5 mg/dL (0.0-1.0); Blood Urea Nitrogen 13 mg/dL (9-16); Calcium 10.7 mg/dL (8.4-10.2); Carbon Dioxide 19 mmol/L (22-29); Chloride 105 mmol/L (96-108); Creatinine Clr Calc Pharmacy 72.3; Estimated Glomerular Filt Rate > 60; Glucose Random 94 mg/dL (60-115); Lipase 21 U/L (8-78); Magnesium 1.9 mg/dL (1.6-2.6); Potassium 4.3 mmol/L (3.3-5.1); Sodium 139 mmol/L (135-145); Total Protein 8.7 g/dL (6.5-8.0)
[2024-05-03 13:45] LABS: Lactic Acid 2.1 mmol/L (0.5-2.0)
[2024-05-03 14:18] VITALS: BP 122/68; PULSE 63; RESP 24; O2SAT 100
[2024-05-03 15:13] LABS: Reflex Lactate? Lactic Acid Added
[2024-05-03 15:22] LABS: Appearance Urine Cloudy; Color Urine Yellow; Glucose Urine UA Negative (Negative); Leukocyte Esterase Urine Negative (Negative); Nitrite Urine Negative (Negative); PH >= 9.0 (5.0-9.0); Specific Gravity - Urine 1.025 (1.005-1.025); Urine Blood Negative (Negative); Urine Ketones 80 mg/dL (Negative); Urine Protein Trace mg/dL (Neg-Trace)
[2024-05-03] MEDS: droPERidol 5 MG/2 ML VIAL 1.25 MG IVPUSH (15:22)
[2024-05-03 15:24] LABS: UPreg QC Valid YES; Urine Pregnancy NEGATIVE (NEGATIVE)
[2024-05-03 15:27] LABS: Ethanol < 10 mg/dL
[2024-05-03] MEDS: Piperacillin Sodium/Tazobactam 3.375 GM in 0.9 % Sodium Chloride 50 ML IV (15:29)
[2024-05-03] MEDS: 0.9 % Sodium Chloride 2,041.17 ML 1047.17 ML IV (15:31)
--- NOTE | 2024-05-03 15:40 | PC.NURSE ---
First IV not working well, second line just placed at this time, IVF now able to run along with antibiotics. Pt continues to yell out in pain. Provider aware, no new orders at this time
--- NOTE | 2024-05-03 15:44 | MHC.EDTECH ---
Per nurse Lucinda umana, asked to hold drawing repeat lactic for approx 1 hr until IV fluids are complete
[2024-05-03 16:29] VITALS: BP 155/64; PULSE 96; RESP 24; O2SAT 99
[2024-05-03 16:57] LABS: ~Lactic Acid-LAB USE ONLY 1.2 mmol/L (0.5-2.0)
[2024-05-03 18:05] VITALS: BP 118/46; PULSE 87; RESP 16; TEMP 36.6
--- NOTE | 2024-05-03 19:03 | PC.NURSE ---
Assumed care of pt. Pt continuing to endorse abdominal pain. Medicated per orders with plan for DC.
[2024-05-03 19:26] VITALS: BP 118/78; PULSE 87; RESP 16; TEMP 37.1; O2SAT 98
== END 2024-05-03 19:28 | disposition home or self-care (01) ==
PROVIDERS: Physician Assistant; Physician Assistant Medical; Emergency Provider Emergency Medicine Emergency Medical Services; PCP Internal Medicine
DX: R10.9 Unspecified abdominal pain (principal); K50.90 Crohn's disease, unspecified, without complications; Z79.899 Other long term (current) drug therapy
CPT/HCPCS: 36415; 51798; 76705; 76775; 80053; 80307; 81003; 81025; 83605; 83690; 83735; 85025; 87040; 96361; 96374; 96375; 96376; 99285; J1170; J1790; J2543

== ENCOUNTER 2024-05-20 10:48 | Outpatient (AMB) | payer OTHER, SELFPAY ==
--- NOTE | 2024-05-20 10:49 | MHC.OFFVIS ---
Vital Signs 05/20/24 10:54 Height 5 ft 2 in Weight 148 lb BMI 27.1 BP 118/71 Blood Pressure Location Rt brachial Position Sitting Pulse 104 H Intake Visit Reasons: Diverticulitis of lg intestine Intake Note: This patient presents for an assessment for Diverticulitis of large intestine. Patient c/o; reports abdominal pain and cramping, reports severe back pain, reports trouble eating: unable to tolerate texture, reports on 05/12/24 had an episode of vomiting, reports changes in bowel habits. 05/03/2024: Abd US 05/01/2024: Abd/pelvis CT Customer Service Consultant Required: No Accompanied by: Self / Same As Patient Allergies meperidine [From Demerol] Allergy (Severe, Verified 05/20/24 10:57) SWELLING,RASH,THROAT CLOSES latex [LATEX] Allergy (Mild, Verified 05/20/24 10:57) RASH codeine [Codeine] Adverse Reaction (Intermediate, Verified 05/20/24 10:57) NAUSEA/VOMITING, GI upset/vomiting duloxetine Adverse Reaction (Intermediate, Verified 05/20/24 10:57) headaches trazodone Adverse Reaction (Mild, Verified 05/20/24 10:57) Anxiety Fish Containing Products [Fish Product Derivatives] Adverse Reaction (Unknown, Verified 05/20/24 10:57) NAUSEA/VOMITING bupropion Adverse Reaction (Intermediate, Uncoded 05/20/24 10:57) increased headaches HPI HPI Diverticulitis of lg intestine: Details: 48-year-old female referred by the ER because of abdominal pain. She apparently went to the ER last 05/03/2024 because of abdominal pain. She had a CAT scan and ultrasound showing what appeared to be biliary sludge without gallstones.There was no other pathology identified on CT scan. Her symptoms also apparently did not suggest cholecystitis then. Review of her records show that she had history of diverticulitis in the past. She currently denies significant pain. She says she does not have any problems with bowel movements. She also describes having an episode of nausea and vomiting a week ago which resolved spontaneously. She has never had any abdominal surgeries in the past She also has a known history of Crohn's disease and is being followed closely by Dr. Alexis. Her Crohn's disease seems to have involved the proximal sigmoid colon. 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 Surgical History Hx of colonoscopy History of esophagogastroduodenoscopy (EGD) History of removal of calculus of renal pelvis through percutaneous nephrostomy (~10/2015) History of cryosurgery (~04/20/15) History of intestinal surgery History of arthroplasty (~01/2012) Family History Father Crohn disease Migraine Cancer Mother HTN (hypertension) Vertigo Cervical cancer Maternal Grandmother HTN (hypertension) Hyperlipidemia Diabetes mellitus Paternal Grandmother Diabetes mellitus Other Mental health problem Social History Household Members: Family Housing: House Do you presently have visiting nurse or other home services: No Unable to assess alcohol history related to: Unable to respond Alcohol intake: current Alcohol intake frequency: holidays/special occasions only Patient Tobacco Use Status: Former Tobacco user Tobacco use type: Cigarette e-Cigarette/Vaping Use: Former Use Second Hand Smoke Exposure: No Substance Use Type: Marijuana Advance Directives Date on File: 06/15/22 service: No Current occupational status: unemployed Gender identity: Female Cognitive needs: No Hearing needs: No Vision needs: Yes (glasses) Female Reproductive History Menstrual Age of Menarche: 12 Review of Systems Const Denies chills and Denies fever(s) Card Denies chest pain, Denies dyspnea and Denies dyspnea on exertion Resp Denies cough, Denies dyspnea and Denies dyspnea on exertion GI Denies hematochezia and Denies change in bowel habits Denies hematuria Musc Denies back pain and Denies limited range of motion Neuro Denies focal weakness and Denies convulsions Psych Denies depression and Denies mood swings Physical Exam Vital Signs: Last Vital Signs Pulse 104 H 05/20/24 10:54 BP 118/71 05/20/24 10:54 BMI result Body Mass Index 27.1 Const General: comfortable and no acute distress Orientation/consciousness: patient oriented x3 Neck Neck: Yes no lymphadenopathy Resp Auscultation: clear to auscultation bilaterally Cardio Rhythm: regular rhythm GI Palpation (GI): Soft to palpation, nontender and no guarding Neuro General: patient oriented x3 Assessment & Plan Assessment & Plan (1) Abdominal pain: Code(s): R10.9 - Unspecified abdominal pain Category: Medical Qualifiers: Abdominal location: generalized Qualified Code(s): R10.84 - Generalized abdominal pain Plan: She was in the ER about 10 days ago because of diffuse abdominal pain. Imaging studies showed what appeared to be biliary sludge. However, her symptoms did not seem to suggest gallbladder disease. She does have a history of diverticulitis as well and Crohn's disease involving the colon. She is being followed closely by Dr. Alexis At this time, I told her that it does not appear that she will require any surgical intervention. She understands that she may have flare ups with her Crohn's disease as well as with her diverticulitis. It was unlikely that her biliary sludge we will cause acute cholecystitis although it may cause symptoms alert to gallbladder pain I told her that she is welcome to come back to the office to be re-evaluated down the line. She has comfortable with the plan. She is to continue to see Dr. Alexis as well. Coding Level of Care Code Est Pt Level 3 (39031) Diagnoses Abdominal pain R10.84 Abdominal location: generalized
[2024-05-20 10:54] VITALS: BP 118/71; PULSE 104; BMI 27.1
== END 2024-05-20 11:15 | disposition home or self-care (01) ==
PROVIDERS: PCP Internal Medicine; Referring Provider Internal Medicine; Visit Provider Surgery
DX: R10.84 Generalized abdominal pain (principal)
CPT/HCPCS: 99213

== ENCOUNTER → 2024-05-20 10:48 | Outpatient (BNVA) | payer OTHER, SELFPAY | PROVIDERS: PCP Internal Medicine; Referring Provider Internal Medicine; Visit Provider Surgery | DX: R10.84 Generalized abdominal pain (principal); R10.9 Unspecified abdominal pain; K50.90 Crohn's disease, unspecified, without complications | CPT/HCPCS: 99212 ==

== ENCOUNTER 2024-05-28 08:15 | Emergency (ER) | payer OTHER, SELFPAY ==
[2024-05-28 08:31] VITALS: BP 122/68; PULSE 96; RESP 16; TEMP 36.9; O2SAT 99; BMI 27.4
[2024-05-28] MEDS: droPERidol 5 MG/2 ML VIAL 1.25 MG IVPUSH (09:01)
--- NOTE | 2024-05-28 09:03 | PC.NURSE ---
pt screaming/yelling upon ED arrival. pt verbalizing extreme pain. rating pain a 20/10. pt reports n/v/d/abd pain x 2 weeks which has increased over the past 3 days. 20gIV placed in the left AC. medication administered per provider order. effectiveness pending. wob noted. respirations even/labored. plan of care ongoing. call mckeon placed within reach.
[2024-05-28 09:16] VITALS: BP 128/94; PULSE 85; RESP 22; TEMP 36.6; O2SAT 100
--- NOTE | 2024-05-28 09:16 | ED_ITS ---
HPI - Abdominal Pain General Chief Complaint: Abdominal Pain Stated Complaint: abd pain vomiting Time Seen by Provider: 05/28/24 09:02 Source: patient and old records reviewed Mode of arrival: ambulatory Limitations: no limitations History of Present Illness ED Provider: JANY PINEDA narrative: 48 yo female with PMH of Crohns who was supposed to have her entyvio infusion today, diverticulitis, prior renal cell carcinoma, migraines, anxiety, depression hx of frequent ED visits for abdominal pain and intractable n/v who was wheeled back screaming and writhing in pain. She states she has been vomiting and having diarrhea for 3 weeks straight with abdominal pain. It was worse the last 3 days and she can no longer take it. She is passing gas. She denies blood in stools. She is very hard to get a history from she is crying and hyperventilating with carpopedal spasms MD elicited complaint: abdominal pain Pertinent past history: diverticulitis Onset (ago): week(s) (3) Pain Consistency: intermittent Location: diffuse Severity: moderate Quality: cramping Radiation: none Migration to: no migration Exacerbating factors: eating and movement Relieving factors: nothing Context: history of similar episodes Associated symptoms: nausea, vomiting and diarrhea Related Data Home Medications ?Medication ?Instructions ?Recorded ?Confirmed dicyclomine 10 mg capsule 10 mg PO QID PRN Gastrointestinal 07/17/22 04/22/24 Spasms Or Cramping vedolizumab 300 mg intravenous 300 mg IV Q4W 10/16/22 04/22/24 solution (Entyvio) budesonide 3 mg 9 mg PO DAILY 11/14/22 04/22/24 capsule,delayed,extended release mesalamine 500 mg capsule,extended 1,000 mg PO QID 11/14/22 04/22/24 release duloxetine 30 mg capsule,delayed 30 mg PO BID 04/01/24 04/22/24 release omeprazole 40 mg capsule,delayed 40 mg PO DAILY 04/01/24 04/22/24 release cholestyramine (with sugar) 4 gram 4 g PO DAILY PRN Diarrhea 04/02/24 04/22/24 oral powder Previous Rx's ?Medication ?Instructions ?Recorded ondansetron 4 mg disintegrating 4 mg PO Q8H PRN nausea and 07/01/23 tablet vomiting #20 tabs clonidine HCl 0.1 mg tablet 0.1 mg PO TID PRN for anxiety #90 03/17/24 tabs lactobacillus combination no.4 3 3,000 mmu cells PO DAILY #30 caps 04/06/24 billion cell capsule (Probiotic) loperamide 2 mg capsule 2 mg PO Q4H PRN Diarrhea #15 caps 04/06/24 metronidazole 500 mg tablet 500 mg PO Q8H #15 tabs 04/06/24 sumatriptan succinate 50 mg tablet 50 mg PO DAILY MRX1 PRN Migraine 04/14/24 Headache #30 tabs zolpidem 12.5 mg tablet,extended 12.5 mg PO .COMPLEX PRN insomnia 04/27/24 release,multiphase 30 days #15 tabs tramadol 50 mg tablet 50 mg PO TID PRN pain 30 days #90 05/07/24 tabs lorazepam 1 mg tablet 1 mg PO TID anxiety 30 days #90 05/13/24 tabs metoclopramide HCl 10 mg tablet 10 mg PO Q6H PRN nausea and 05/28/24 (Reglan) vomiting #30 tabs morphine 15 mg immediate release 15 mg PO Q6H PRN pain #14 tabs 05/28/24 tablet Allergies Allergy/AdvReac Type Severity Reaction Status Date / Time meperidine [From Demerol] Allergy Severe SWELLING,RASH,THROAT Verified 05/28/24 08:34 CLOSES latex [LATEX] Allergy Mild RASH Verified 05/28/24 08:34 codeine [Codeine] AdvReac Intermediate NAUSEA/VOMITING, Verified 05/28/24 08:34 GI upset/vomiting duloxetine AdvReac Intermediate headaches Verified 05/28/24 08:34 trazodone AdvReac Mild Anxiety Verified 05/28/24 08:34 Fish Containing Products AdvReac Unknown NAUSEA/VOMI Verified 05/28/24 08:34 [Fish Product Derivatives] TING bupropion AdvReac Intermediate increased Uncoded 05/28/24 08:34 headaches Review of Systems Review of Systems Constitutional : No Weight loss, No Fever, No Chills ENT/Mouth : No sore throat, No Rhinorrhea Eyes: No Swelling, No Redness Cardiovascular : No Chest Pain, No SOB, NoEdema Respiratory : No Cough, No Sputum, No Wheezing Gastrointestinal : Positive Nausea, Positive Vomiting, positive Diarrhea, positive abdominal Pain, No Hematochezia, No Melena Genitourinary : No Dysuria, No Urinary Frequency, No Hematuria, No Urgency Musculoskeletal : No joint pain, No Myalgias, No Joint Swelling Skin : No Skin Lesions, No rash Neuro : No Weakness, No Numbness, No Dizziness, No Headache Psych : pos Anxiety/Panic, No Depression All other systems reviewed and are negative. [facility] Past Medical History Attestation statement: The following information was validated with the patient. 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 Surgical History Hx of colonoscopy History of esophagogastroduodenoscopy (EGD) History of removal of calculus of renal pelvis through percutaneous nephrostomy (~10/2015) History of cryosurgery (~04/20/15) History of intestinal surgery History of arthroplasty (~01/2012) Family History Family History Father Crohn disease Migraine Cancer Mother HTN (hypertension) Vertigo Cervical cancer Maternal Grandmother HTN (hypertension) Hyperlipidemia Diabetes mellitus Paternal Grandmother Diabetes mellitus Other Mental health problem Social History Social History Household Members: Family Housing: House Do you presently have visiting nurse or other home services: No Unable to assess alcohol history related to: Unable to respond Alcohol intake: current Alcohol intake frequency: holidays/special occasions only Patient Tobacco Use Status: Former Tobacco user Tobacco use type: Cigarette e-Cigarette/Vaping Use: Former Use Second Hand Smoke Exposure: No Substance Use Type: Marijuana Advance Directives: Yes Advance Directives on File: Yes Advance Directives Date on File: 06/15/22 service: No Current occupational status: unemployed Gender identity: Female Cognitive needs: No Hearing needs: No Vision needs: Yes (glasses) Physical Exam ED Vital Signs: Vital Signs - 24 hr 05/28/24 08:31 05/28/24 09:16 05/28/24 10:23 Temperature 98.4 F 97.8 F 97.9 F Pulse Rate 96 85 84 Respiratory Rate 16 22 H 14 Blood Pressure 122/68 128/94 H 119/76 Pulse Oximetry 99 100 100 Oxygen Delivery Method Room Air Room Air 05/28/24 12:04 05/28/24 13:45 05/28/24 13:45 Temperature 98.1 F 98 F 98.1 F Pulse Rate 89 100 89 Respiratory Rate 23 H 19 23 H Blood Pressure 121/76 134/76 121/76 Pulse Oximetry 98 98 98 Oxygen Delivery Method Room Air Room Air BMI result Body Mass Index 27.4 Appearance: Alert. Oriented X3. wheeled back yelling loudly in WC moderate acute distress. Eyes: Pupils equal, round and reactive to light. ENT: Pharynx normal. Neck: Normal inspection. Neck supple. CVS: Normal heart rate and rhythm. Pulses normal. Respiratory: No respiratory distress. Breath sounds normal. Abdomen: Soft and moderate diffuse ttp no rebound it is not distended Skin: Skin warm and dry. Normal skin color. Normal skin turgor. Extremities: No lower extremity edema. No calf ttp Neuro: Oriented X 3. No motor deficit. No sensory deficit. Medical Decision Making Medical Decision Making MDM Narrative: 48 yo female with PMH of Crohns who was supposed to have her entyvio infusion today, diverticulitis, prior renal cell carcinoma, migraines, anxiety, depression hx of frequent ED visits for abdominal pain and intractable n/v here with c/o 3 weeks of nonbloody n/v/d and abdominal pain passing flatus at this time in order to even examine or get history she needs immediate medications on arrival will obtain labs, start with droperidol and possibly ativan to provide anxiolytic and anti-emetics. Possible imaging pending labs and inflammatory markers. She is having stools and flatus SBO seems unlikely. Differential Diagnosis Differential Diagnoses: The differential diagnosis associated with the presentation includes cyclical vomiting, anxiety, gastroenteritis, crohns ds Admission/Observation Consideration of admission/observation: Escalation of care including admission/observation considered offered CT scan but patient declined states she is aware but it is always normal when she has this and it will be normal today and she doesn't want it tolerating PO feels better stable for DC no diarrhea noted here CRP lower than baseline Lab Data MDM Lab Attestation statement: I reviewed the patient's lab results. 05/28/24 09:27 05/28/24 09:27 Labs: Lab Results 05/28/24 Range/Units 09:27 WBC 11.5 H (4.8-10.8) X10*3/uL RBC 4.49 (4.20-5.50) X10*6/uL Hgb 13.9 (12.0-16.0) g/dl Hct 40.4 (37.0-47.0) % MCV 90.0 (80.0-98.0) fL MCH 31.0 (27.0-33.0) pg MCHC 34.4 (31.0-35.0) g/dl RDW 13.7 (11.0-16.0) % Plt Count 305 (160-400) X10*3/uL MPV 9.6 (9.4-12.3) fL Immature Gran % (Auto) 0.4 (0.0-0.4) % Neut % (Auto) 76.2 H (45-73) % Lymph % (Auto) 15.7 L (20-40) % [place] % (Auto) 6.7 (2-11) % Eos % (Auto) 0.7 (0-4) % Baso % (Auto) 0.3 (0-2) % Lymph # (Auto) 1.8 (1.2-4.9) X10*3/uL [place] # (Auto) 0.8 (0.1-1.2) X10*3/uL Eos # (Auto) 0.1 (0.0-0.4) X10*3/uL Baso # (Auto) 0.0 (0.0-0.2) X10*3/uL Abs Immat Gran (auto) 0.05 H (0.00-0.03) X10*3/uL Absolute Neuts (auto) 8.7 H (2.0-8.3) x10*3/uL Absolute Nucleated RBC 0.000 (0.0-0.012) X10*3/uL Nucleated RBC % (auto) 0.0 (0.0-0.2) /100WBC ESR 19 (0-20) MM/HR Sodium 139 (135-145) mmol/L Potassium 3.7 (3.3-5.1) mmol/L Chloride 106 (96-108) mmol/L Carbon Dioxide 19 L (22-29) mmol/L Anion Gap 18 (12-20) BUN 11 (9-16) mg/dL Creatinine 0.85 (0.5-1.4) mg/dL Estim Creat Clear Calc 73.2 Estimated GFR > 60 Random Glucose 143 H (60-115) mg/dL Calcium 9.3 D (8.4-10.2) mg/dL Magnesium 1.5 L (1.6-2.6) mg/dL Total Bilirubin 0.5 (0.0-1.0) mg/dL Direct Bilirubin 0.1 (0.0-0.5) mg/dL AST 19 (5-31) U/L ALT 11 (0-31) U/L Alkaline Phosphatase 89 (39-117) U/L C-Reactive Protein 0.74 H (< or = 0.50) mg/dL Total Protein 7.2 (6.5-8.0) g/dL Albumin 3.6 (3.5-5.0) g/dL Lipase 15 (8-78) U/L External Record Review External record reviewed: Inpatient record Prescription Management I considered prescription management with: Pain Medication and Other Medications Administered Discontinued Medications Generic Name Dose Route Start Last Admin Trade Name Freq PRN Reason Stop Dose Admin Droperidol 1.25 mg 05/28/24 08:49 05/28/24 09:01 Droperidol 5 Mg/2 Ml Vial IVPUSH 05/28/24 08:50 1.25 mg ONCE ONE Administration Sodium Chloride 1,000 mls @ 999 mls/hr 05/28/24 09:05 05/28/24 11:10 Ns IV 05/28/24 10:05 Infused .Q1H1M ONE Infusion Magnesium Sulfate 2 gm in 50 mls @ 25 mls/hr 05/28/24 09:58 05/28/24 12:33 Magnesium Sulfate/H2o IV 05/28/24 11:57 Infused ONCE ONE Infusion Lorazepam 2 mg 05/28/24 11:26 05/28/24 11:35 Lorazepam 2 Mg/Ml Vial IVPUSH 05/28/24 11:27 2 mg ONCE ONE Administration Critical Care Time Critical Care Time Critical Care Time: Yes Total Critical Care Time: 45 Attestation: repeat IV medications including IV ativan, review of records, repeat assessments, IVF I attest to this time spent taking care of the patient Discharge Plan Discharge Clinical Impression: Hypomagnesemia Abdominal pain Qualifiers: Abdominal location: generalized Qualified Code(s): R10.84 - Generalized abdominal pain Nausea & vomiting Qualifiers: Vomiting type: unspecified Qualified Code(s): R11.2 - Nausea with vomiting, unspecified Patient Disposition: Home, Self-Care Instructions: Acute Nausea and Vomiting (ED), Abdominal Pain (ED), Hypomagnesemia (ED) Additional Instructions: follow up with your GI doctor and specialist your magnesium level was low we repleted it return for any worsening symptoms or concerns hold tramadol while on new pain medications Prescriptions: New metoclopramide HCl [Reglan] 10 mg tablet 10 mg PO Q6H PRN (Reason: nausea and vomiting) Qty: 30 0RF morphine 15 mg tablet 15 mg PO Q6H PRN (Reason: pain) Qty: 14 0RF Rx Instructions: Partial Fill upon patient request. patient to hold tramadol No Action ondansetron 4 mg tablet,disintegrating 4 mg PO Q8H PRN (Reason: nausea and vomiting) Qty: 20 0RF clonidine HCl 0.1 mg tablet 0.1 mg PO TID PRN (Reason: for anxiety) Qty: 90 2RF sumatriptan succinate 50 mg tablet 50 mg PO DAILY MRX1 PRN (Reason: Migraine Headache) Qty: 30 0RF zolpidem 12.5 mg tablet,ext release multiphase 12.5 mg PO .COMPLEX PRN (Reason: insomnia) 30 Days Qty: 15 3RF Rx Instructions: 12.5 mg orally every other night PRN; tramadol 50 mg tablet 50 mg PO TID PRN (Reason: pain) 30 Days Qty: 90 0RF lorazepam 1 mg tablet 1 mg PO TID 30 Days Qty: 90 0RF budesonide 3 mg capsule,delayed,extend.release 9 mg PO DAILY mesalamine 500 mg capsule, extended release 1,000 mg PO QID omeprazole 40 mg capsule,delayed release(DR/EC) 40 mg PO DAILY duloxetine 30 mg capsule,delayed release(DR/EC) 30 mg PO BID cholestyramine (with sugar) 4 gram Powder 4 g PO DAILY PRN (Reason: Diarrhea) loperamide 2 mg Capsule 2 mg PO Q4H PRN (Reason: Diarrhea) Qty: 15 0RF metronidazole 500 mg Tablet 500 mg PO Q8H Qty: 15 0RF Probiotic 3 billion cell capsule 3,000 mmu cells PO DAILY Qty: 30 0RF Rx Instructions: administer with a meal Entyvio 300 mg recon soln 300 mg IV Q4W Rx Instructions: administer over 30 mins dicyclomine 10 mg capsule 10 mg PO QID PRN (Reason: Gastrointestinal Spasms Or Cramping) Interventions: ED Discharge Assessment Last Done: 05/28/24 13:45 Discharge Date/Time: 05/28/24 13:46 Print Language: Tamazight
[2024-05-28] MEDS: 0.9 % Sodium Chloride 1,000 ML 999 ML IV (09:17)
--- NOTE | 2024-05-28 09:30 | PC.NURSE ---
labs obtained/sent to lab. pt verbalizing medication administration was effective. wob no longer present. respirations even/unlabored. plan of care ongoing.
[2024-05-28 09:31] LABS: MANUAL DIFF FLAG NO
[2024-05-28 09:33] LABS: Basophils Percent Auto 0.3 % (0-2); Eosinophils Absolute Auto 0.1 X10*3/uL (0.0-0.4); Eosinophils Percent Auto 0.7 % (0-4); Hematocrit 40.4 % (37.0-47.0); Hemoglobin 13.9 g/dl (12.0-16.0); Imm Gran Abs Auto 0.05 X10*3/uL (0.00-0.03); Imm Gran Pct Auto 0.4 % (0.0-0.4); Lymphocytes Absolute Auto 1.8 X10*3/uL (1.2-4.9); Lymphocytes Percent Auto 15.7 % (20-40); Mean Corpuscular HGB Conc 34.4 g/dl (31.0-35.0); Mean Platelet Volume 9.6 fL (9.4-12.3); Monocytes Absolute Auto 0.8 X10*3/uL (0.1-1.2); Monocytes Percent Auto 6.7 % (2-11); Neutrophils Absolute Auto 8.7 x10*3/uL (2.0-8.3); Neutrophils Percent Auto 76.2 % (45-73); Platelet Count 305 X10*3/uL (160-400); Red Blood Count 4.49 X10*6/uL (4.20-5.50); Red Cell Distribution Width 13.7 % (11.0-16.0); White Blood Count 11.5 X10*3/uL (4.8-10.8)
[2024-05-28 09:50] LABS: Alanine Aminotransferase 11 U/L (0-31); Albumin Level 3.6 g/dL (3.5-5.0); Alkaline Phosphatase 89 U/L (39-117); Anion Gap 18 (12-20); Aspartate Amino Transferase 19 U/L (5-31); Bilirubin Direct 0.1 mg/dL (0.0-0.5); Bilirubin Total 0.5 mg/dL (0.0-1.0); Blood Urea Nitrogen 11 mg/dL (9-16); C Reactive Protein 0.74 mg/dL (< or = 0.50); Calcium 9.3 mg/dL (8.4-10.2); Carbon Dioxide 19 mmol/L (22-29); Chloride 106 mmol/L (96-108); Creatinine Clr Calc Pharmacy 73.2; Estimated Glomerular Filt Rate > 60; Glucose Random 143 mg/dL (60-115); Lipase 15 U/L (8-78); Magnesium 1.5 mg/dL (1.6-2.6); Potassium 3.7 mmol/L (3.3-5.1); Sodium 139 mmol/L (135-145); Total Protein 7.2 g/dL (6.5-8.0)
[2024-05-28] MEDS: Magnesium Sulfate/H2O 2 GM/50 ML PIGGYBACK IV (10:11)
[2024-05-28 10:18] LABS: Erythrocyte Sedimentation Rate 19 MM/HR (0-20)
--- NOTE | 2024-05-28 10:20 | PC.NURSE ---
medication administered per provider order.
[2024-05-28 10:23] VITALS: BP 119/76; PULSE 84; RESP 14; TEMP 36.6; O2SAT 100
[2024-05-28] MEDS: LORazepam 2 MG/ML VIAL IVPUSH (11:35)
--- NOTE | 2024-05-28 11:38 | PC.NURSE ---
pt seemingly anxios at this time. verbalizing increase in sx. medication administered per provider order. effectiveness pending.
[2024-05-28 12:04] VITALS: BP 121/76; PULSE 89; RESP 23; TEMP 36.7; O2SAT 98
[2024-05-28 13:45] VITALS: BP 121/76; BP 134/76; PULSE 100; PULSE 89; RESP 19; RESP 23; TEMP 36.6; TEMP 36.7; O2SAT 98
== END 2024-05-28 13:46 | disposition home or self-care (01) ==
PROVIDERS: Emergency Provider Emergency Medicine; PCP Internal Medicine
DX: R10.84 Generalized abdominal pain (principal); R11.2 Nausea with vomiting, unspecified; E83.42 Hypomagnesemia; K50.90 Crohn's disease, unspecified, without complications; Z79.899 Other long term (current) drug therapy
CPT/HCPCS: 36415; 80048; 80076; 83690; 83735; 85025; 85652; 86140; 96361; 96365; 96375; 99283; 99284; J1790; J2060; J3475

== ENCOUNTER 2024-06-02 11:47 | Outpatient (REF) | payer OTHER, SELFPAY ==
--- NOTE | ~2024-06-02 | XR_ITS ---
EXAMINATION: XR ABDOMEN COMPLETE CLINICAL INDICATION: Crohn's, abdominal pain, diarrhea, patient states history of Crohn's disease, colitis, diverticulitis and gallbladder issues, hurts more on the left side versus the right side. COMPARISON: 04/02/2024. TECHNIQUE: 3 views of the abdomen. FINDINGS: Redemonstration of left hip intramedullary izzy and screw transfixing previous fracture, incompletely imaged. Levoscoliosis of the imaged lower lumbar spine with multilevel degenerative changes. Nonobstructive bowel gas pattern. [id number] amount of stool in the colon. XR/XR abdomen 3V IMPRESSION: Nonobstructive bowel gas pattern. [id number] amount of stool in the colon.
[2024-06-02 12:27] LABS: MANUAL DIFF FLAG NO
[2024-06-02 13:55] LABS: Basophils Percent Auto 0.3 % (0-2); Eosinophils Absolute Auto 0.1 X10*3/uL (0.0-0.4); Eosinophils Percent Auto 0.7 % (0-4); Hemoglobin 13.9 g/dl (12.0-16.0); Imm Gran Abs Auto 0.05 X10*3/uL (0.00-0.03); Imm Gran Pct Auto 0.5 % (0.0-0.4); Lymphocytes Absolute Auto 1.1 X10*3/uL (1.2-4.9); Lymphocytes Percent Auto 11.9 % (20-40); Mean Corpuscular HGB Conc 33.1 g/dl (31.0-35.0); Mean Corpuscular Volume 93.8 fL (80.0-98.0); Mean Platelet Volume 10.3 fL (9.4-12.3); Monocytes Absolute Auto 0.6 X10*3/uL (0.1-1.2); Monocytes Percent Auto 6.3 % (2-11); Neutrophils Absolute Auto 7.7 x10*3/uL (2.0-8.3); Neutrophils Percent Auto 80.3 % (45-73); Platelet Count 327 X10*3/uL (160-400); Red Blood Count 4.48 X10*6/uL (4.20-5.50); Red Cell Distribution Width 14.3 % (11.0-16.0); White Blood Count 9.6 X10*3/uL (4.8-10.8)
[2024-06-02 14:37] LABS: Alanine Aminotransferase 12 U/L (0-31); Albumin Level 4.2 g/dL (3.5-5.0); Alkaline Phosphatase 90 U/L (39-117); Amylase 66 U/L (28-100); Anion Gap 15 (12-20); Aspartate Amino Transferase 14 U/L (5-31); Bilirubin Direct 0.1 mg/dL (0.0-0.5); Bilirubin Total 0.3 mg/dL (0.0-1.0); Blood Urea Nitrogen 13 mg/dL (9-16); Calcium 10.1 mg/dL (8.4-10.2); Carbon Dioxide 27 mmol/L (22-29); Chloride 104 mmol/L (96-108); Estimated Glomerular Filt Rate > 60; Glucose Random 117 mg/dL (60-115); Lipase 20 U/L (8-78); Potassium 4.7 mmol/L (3.3-5.1); Sodium 141 mmol/L (135-145); Total Protein 7.7 g/dL (6.5-8.0)
[2024-06-02 14:41] LABS: Erythrocyte Sedimentation Rate 23 MM/HR (0-20)
== END 2024-06-02 11:48 | disposition home or self-care (01) ==
LOC: HO.LAB 11:47
PROVIDERS: PCP Internal Medicine; Visit Provider Internal Medicine
DX: K50.819 Crohn's disease of both small and large intestine with unspecified complications (principal); R10.84 Generalized abdominal pain; R19.7 Diarrhea, unspecified
CPT/HCPCS: 36415; 74021; 80048; 80076; 80280; 82150; 82542; 83690; 85025; 85652; 86140

== ENCOUNTER 2024-06-06 07:31 | Inpatient (IN) | payer OTHER, SELFPAY ==
[2024-06-06] VITALS (10 sets, daily range): BP systolic 124–162; BP diastolic 67–95; PULSE 62–83; RESP 18–25; TEMP 36.3–36.6; O2SAT 97–100; BMI 27.4; BMI 27.5
--- NOTE | ~2024-06-06 | CT_ITS ---
EXAMINATION: CT ABDOMEN AND PELVIS WITH CONTRAST CLINICAL INFORMATION: Abdominal pain, history of diverticulitis. COMPARISON: Abdominal ultrasound 05/03/2024. CT abdomen 05/01/2024. TECHNIQUE: Multidetector volumetric images were obtained from the superior aspect of the liver through the pubic symphysis following administration 85 mL of Omnipaque 350 intravenous contrast. Sagittal and coronal reformatted images were obtained on the technologist's workstation. Oral contrast: No This CT examination was performed using dose optimization techniques as appropriate, variously including the following: *Automated exposure control *Adjustment of mA and/or kV according to patient size (this includes techniques or standardized protocols for targeted exams where dose is matched to indication/reason for exam; i.e. extremities or head) *Use of iterative reconstruction technique DLP: 454 mGy-cm FINDINGS: LUNG BASES: No focal consolidation or pleural effusion. LIVER, GALLBLADDER, AND BILIARY TREE: The liver is normal in size, shape, and attenuation. No focal hepatic lesion or biliary ductal dilatation is present. The gallbladder is unremarkable with no evidence of radiopaque gallstones, gallbladder wall thickening, or obvious pericholecystic inflammatory changes. PANCREAS: Unremarkable. SPLEEN: Unremarkable. ADRENAL GLANDS: Unremarkable. KIDNEYS AND URETERS: A heterogeneous cortical lesion in the posterior aspect of the interpolar right kidney measuring 1.8 x 1.3 cm demonstrates gradual increase in size over time, for instance measuring 1.4 x 1.3 cm on 10/02/2021. Otherwise, normal kidneys. BLADDER: Unremarkable. GASTROINTESTINAL TRACT: Small hiatal hernia. The stomach and the small bowel are nondilated. Mild wall thickening and stratified enhancement with submucosal edema involving the terminal ileum and distal ileum, for a length of approximately 12 cm. Normal appendix. Colonic diverticulosis with trace pericolonic fatty haziness in the distal descending colon (8:28 and 7:39). Moderate colonic stool burden. ABDOMINAL WALL: Small fat-containing umbilical hernia. LYMPH NODES: No lymphadenopathy. VASCULAR: Normal caliber of the abdominal aorta. PELVIC VISCERA: Unremarkable. OSSEOUS STRUCTURES: Partially seen left femoral with unchanged chronic surrounding cystic changes, for example stable compared to 06/15/2022. Degenerative changes of the spine. CT/CT abdomen pelvis w IV con IMPRESSION: 1. Mild wall thickening and stratified enhancement with submucosal edema involving the terminal ileum and distal ileum most consistent with active inflammatory bowel disease in this patient with a history of Crohn's. Evaluation of stricture is limited in the absence of oral contrast, however no significant upstream disproportional dilatation is seen to suspect a high-grade small bowel obstruction. 2. Colonic diverticulosis with short segment of trace pericolonic fatty haziness in the distal descending colon suggesting mild acute diverticulitis, less likely acute colitis in the proper clinical content. 3. Small hiatal hernia. 4. A heterogeneous cortical lesion in the posterior aspect of the interpolar right kidney demonstrates gradual increase in size over time, underlying slow-growing neoplasm is not excluded. Recommend further evaluation with outpatient dynamic abdominal MRI with and without intravenous contrast.
--- NOTE | 2024-06-06 07:36 | ECG_ITS ---
Test Reason : CHEST PAIN Blood Pressure : / mmHG Vent. Rate : 070 BPM Atrial Rate : 070 BPM P-R Int : 140 ms QRS Dur : 074 ms QT Int : 408 ms P-R-T Axes : 089 019 028 degrees QTc Int : 440 ms Normal sinus rhythm with sinus arrhythmia Normal ECG When compared with ECG of 12-DEC-2023 20:48, No significant change was found Referred By: Generic ED Physician Electronically Signed By:FITZ CASTRO MD
[2024-06-06 07:52] LABS: MANUAL DIFF FLAG NO
[2024-06-06 07:53] LABS: Basophils Absolute Auto 0.1 X10*3/uL (0.0-0.2); Basophils Percent Auto 0.4 % (0-2); Eosinophils Absolute Auto 0.2 X10*3/uL (0.0-0.4); Eosinophils Percent Auto 1.1 % (0-4); Hematocrit 39.9 % (37.0-47.0); Hemoglobin 13.7 g/dl (12.0-16.0); Imm Gran Abs Auto 0.06 X10*3/uL (0.00-0.03); Imm Gran Pct Auto 0.5 % (0.0-0.4); Mean Corpuscular HGB Conc 34.3 g/dl (31.0-35.0); Mean Corpuscular Hemoglobin 30.7 pg (27.0-33.0); Mean Corpuscular Volume 89.5 fL (80.0-98.0); Mean Platelet Volume 9.8 fL (9.4-12.3); Monocytes Percent Auto 7.3 % (2-11); Neutrophils Absolute Auto 10.1 x10*3/uL (2.0-8.3); Neutrophils Percent Auto 75.7 % (45-73); Platelet Count 350 X10*3/uL (160-400); Red Blood Count 4.46 X10*6/uL (4.20-5.50); Red Cell Distribution Width 14.1 % (11.0-16.0); White Blood Count 13.3 X10*3/uL (4.8-10.8)
--- NOTE | 2024-06-06 08:02 | ED_ITS ---
HPI - Abdominal Pain General Chief Complaint: Nausea/Vomiting/Diarrhea Stated Complaint: Abdominal Pain Time Seen by Provider: 06/06/24 07:50 Source: patient and EMS Mode of arrival: EMS Limitations: no limitations History of Present Illness ED Provider: DR. Chen HPI narrative: 48-year-old female with PMH significant for Crohn's disease, diverticulitis, renal cell carcinoma, lumbar degenerative disc disease, migraine, and anxiety. Patient presented with 2 days of abdominal pain associated with intractable nausea and vomiting, patient contacted Dr. Ag (patient's gum machine operator) who ordered abdominal x-ray. Patient had similar abdominal pain in past require hospitalization for pain and symptoms control. No dysuria, no frequency urination. Last bowel movement was this morning had dark loose stool. Patient consider C diff carrier test positive for Ag but negative for toxins patient received treatment with oral vancomycin. Related Data Home Medications ?Medication ?Instructions ?Recorded ?Confirmed dicyclomine 10 mg capsule 10 mg PO QID PRN Gastrointestinal 07/17/22 04/22/24 Spasms Or Cramping vedolizumab 300 mg intravenous 300 mg IV Q4W 10/16/22 04/22/24 solution (Entyvio) budesonide 3 mg 9 mg PO DAILY 11/14/22 04/22/24 capsule,delayed,extended release mesalamine 500 mg capsule,extended 1,000 mg PO QID 11/14/22 04/22/24 release duloxetine 30 mg capsule,delayed 30 mg PO BID 04/01/24 04/22/24 release omeprazole 40 mg capsule,delayed 40 mg PO DAILY 04/01/24 04/22/24 release cholestyramine (with sugar) 4 gram 4 g PO DAILY PRN Diarrhea 04/02/24 04/22/24 oral powder Previous Rx's ?Medication ?Instructions ?Recorded ondansetron 4 mg disintegrating 4 mg PO Q8H PRN nausea and 07/01/23 tablet vomiting #20 tabs clonidine HCl 0.1 mg tablet 0.1 mg PO TID PRN for anxiety #90 03/17/24 tabs lactobacillus combination no.4 3 3,000 mmu cells PO DAILY #30 caps 04/06/24 billion cell capsule (Probiotic) loperamide 2 mg capsule 2 mg PO Q4H PRN Diarrhea #15 caps 04/06/24 metronidazole 500 mg tablet 500 mg PO Q8H #15 tabs 04/06/24 zolpidem 12.5 mg tablet,extended 12.5 mg PO .COMPLEX PRN insomnia 04/27/24 release,multiphase 30 days #15 tabs metoclopramide HCl 10 mg tablet 10 mg PO Q6H PRN nausea and 05/28/24 (Reglan) vomiting #30 tabs morphine 15 mg immediate release 15 mg PO Q6H PRN pain #14 tabs 05/28/24 tablet lorazepam 1 mg tablet 1 mg PO TID anxiety 30 days #90 05/29/24 tabs tramadol 50 mg tablet 50 mg PO TID PRN pain 30 days #90 05/29/24 tabs sumatriptan succinate 50 mg tablet 50 mg PO DAILY MRX1 PRN Migraine 05/31/24 Headache #30 tabs Allergies Allergy/AdvReac Type Severity Reaction Status Date / Time meperidine [From Demerol] Allergy Severe SWELLING,RASH,THROAT Verified 06/06/24 07:36 CLOSES latex [LATEX] Allergy Mild RASH Verified 06/06/24 07:36 codeine [Codeine] AdvReac Intermediate NAUSEA/VOMITING, Verified 06/06/24 07:36 GI upset/vomiting duloxetine AdvReac Intermediate headaches Verified 06/06/24 07:36 trazodone AdvReac Mild Anxiety Verified 06/06/24 07:36 Fish Containing Products AdvReac Unknown NAUSEA/VOMI Verified 06/06/24 07:36 [Fish Product Derivatives] TING bupropion AdvReac Intermediate increased Uncoded 06/06/24 07:36 headaches Review of Systems Review of Systems All other systems are reviewed and are negative Constitutional: Reports as per HPI and Reports no additional constitutional complaints Eyes: Reports as per HPI and Reports no additional eye complaints Reports system reviewed and no additional complaints, except as documented Cardiovascular: Reports as per HPI and Reports no additional cardiovascular complaints Respiratory: Reports as per HPI and Reports no additional respiratory complaints Gastrointestinal: Reports as per HPI and Reports no additional gastrointestinal complaints Genitourinary: Reports no additional female genitourinary complaints Musculoskeletal: Reports no additional musculoskeletal complaints Skin/Breast: Reports system reviewed and no additional complaints, except as docu Psychiatric: Reports no additional psychiatric complaints Endocrine: Reports no additional endocrine complaints Hematologic/Lymphatic: Reports no additional hematologic/lymphatic complaints Allergic/Immunologic: Reports no additional allergic/immunologic complaints Reports system reviewed and no additional complaints, except as documented and Reports Abnormal speech present [facility] Past Medical History Medical History Clostridioides difficile carrier Renal calculus, bilateral Postcoital bleeding Major depression, recurrent, chronic Furuncle Diverticulitis Obesity (BMI 30-39.9) Crohn's colitis Crohns disease of small intestine Crohn's colitis Intractable nausea and vomiting Migraine History of renal cell cancer (~2014) Osteoarthritis of hips, bilateral Depression Crohn's disease Lumbar degenerative disc disease Insomnia Anxiety 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 Surgical History Hx of colonoscopy History of esophagogastroduodenoscopy (EGD) History of removal of calculus of renal pelvis through percutaneous nephrostomy (~10/2015) History of cryosurgery (~04/20/15) History of intestinal surgery History of arthroplasty (~01/2012) Family History Family History Father Crohn disease Migraine Cancer Mother HTN (hypertension) Vertigo Cervical cancer Maternal Grandmother HTN (hypertension) Hyperlipidemia Diabetes mellitus Paternal Grandmother Diabetes mellitus Other Mental health problem Social History Social History Household Members: Family Housing: House Do you presently have visiting nurse or other home services: No Unable to assess alcohol history related to: Unable to respond Alcohol intake: current Alcohol intake frequency: holidays/special occasions only Patient Tobacco Use Status: Former Tobacco user Tobacco use type: Cigarette Smoked in Last 30 Days: No e-Cigarette/Vaping Use: Former Use Second Hand Smoke Exposure: No Use of substances other than those prescribed or required for medical reasons: No Substance Use Type: Marijuana Advance Directives: Yes Advance Directives on File: Yes Advance Directives Date on File: 06/15/22 Do you have a plan to hurt others: No Plan Patient : No service: No Current occupational status: unemployed Gender identity: Female Cognitive needs: No Hearing needs: No Vision needs: Yes (glasses) Physical Exam ED Vital Signs: Vital Signs - 24 hr 06/06/24 07:32 06/06/24 08:41 Temperature 97.6 F Pulse Rate 73 Respiratory Rate 24 H 25 H Blood Pressure 148/67 H Pulse Oximetry 100 Oxygen Delivery Method Room Air BMI result Body Mass Index 27.4 Vital signs have been reviewed and appear to be correct. Blood pressure elevated. Heart rate normal. Respiratory rate normal. Temperature normal. Oxygen saturation normal. Appearance: Alert. Oriented X3. acute distress Due to abdominal pain. Head: Normal external exam. Normocephalic. Atraumatic. No Weller signs noted. No raccoon eyes noted Eyes: PERRLA. EOMI. Conjunctiva and sclera normal. Eyelids normal. ENT: TM's Normal. Pharynx normal. Uvula midline. Moist mucous membranes. No trismus noted. No drooling noted. No muffled voice noted. Neck: Normal inspection. Neck supple. FROM. No adenopathy. Thyroid Normal. No meningeal signs. No neck mass noted. CVS: Normal heart rate and rhythm. Heart sound normal. No murmurs noted. Pulses normal throughout. Respiratory: No respiratory distress. Painless inspiration. Breath sounds normal. No wheezes/rales/rhonchi noted. Chest nontender. No accessory muscle usage noted or decreased air movement noted. Abdomen: Left lower quadrant tenderness, positive guarding, and rebound tenderness. No organomegaly noted. No visible injury noted. Rectal exam: Brown stool trace positive to blood. Back: No CVA tenderness. Full range of motion noted. Skin: Skin warm and dry. Normal skin color. Normal skin turgor. No rashes/lesions/lacerations noted. Extremities: No lower extremity edema. Extremities exhibit normal range of motion. Extremities nontender. Neuro: Oriented X 3. Cranial nerve exam: II-XII are grossly intact No motor deficit. No sensory deficit. Reflexes normal. Course Reevaluation(s) Reevaluation #1: Intractable abdominal pain due to Crohn's disease flare up. CT showed no perforation, no bowel obstruction, patient improved in the emergency department with Dilaudid, because recurrence of pain will admit the patient for pain control. Patient in her last admission improved with Flagyl and ceftriaxone. Patient does not meet criteria for SIRS, no severe sepsis or septic shock. RR is above 20 because patient is anxious and tachypneic and is not due to infection or sepsis. Time: 10:27 Medical Decision Making Differential Diagnosis Differential Diagnoses: The differential diagnosis associated with the presentation includes ( colitis, diverticulitis, perforated viscus, small-bowel obstruction, UTI, electrolyte derangement, ACS, severe anemia.) Admission/Observation Consideration of admission/observation: Escalation of care including admission/observation considered Consult Healthcare Provider Management of the patient was discussed with: Hospitalist (Dr. Valenzuela) Lab Data MDM Lab Attestation statement: I reviewed the patient's lab results. 06/06/24 07:47 06/06/24 07:47 Labs: Lab Results 06/06/24 06/06/24 Range/Units 07:47 08:15 WBC 13.3 H (4.8-10.8) X10*3/uL RBC 4.46 (4.20-5.50) X10*6/uL Hgb 13.7 (12.0-16.0) g/dl Hct 39.9 (37.0-47.0) % MCV 89.5 (80.0-98.0) fL MCH 30.7 (27.0-33.0) pg MCHC 34.3 (31.0-35.0) g/dl RDW 14.1 (11.0-16.0) % Plt Count 350 (160-400) X10*3/uL MPV 9.8 (9.4-12.3) fL Immature Gran % (Auto) 0.5 H (0.0-0.4) % Neut % (Auto) 75.7 H (45-73) % Lymph % (Auto) 15.0 L (20-40) % [place] % (Auto) 7.3 (2-11) % Eos % (Auto) 1.1 (0-4) % Baso % (Auto) 0.4 (0-2) % Lymph # (Auto) 2.0 (1.2-4.9) X10*3/uL [place] # (Auto) 1.0 (0.1-1.2) X10*3/uL Eos # (Auto) 0.2 (0.0-0.4) X10*3/uL Baso # (Auto) 0.1 (0.0-0.2) X10*3/uL Abs Immat Gran (auto) 0.06 H (0.00-0.03) X10*3/uL Absolute Neuts (auto) 10.1 H (2.0-8.3) x10*3/uL Absolute Nucleated RBC 0.000 (0.0-0.012) X10*3/uL Nucleated RBC % (auto) 0.0 (0.0-0.2) /100WBC Sodium 141 (135-145) mmol/L Potassium 3.4 D (3.3-5.1) mmol/L Chloride 109 H (96-108) mmol/L Carbon Dioxide 19 L (22-29) mmol/L Anion Gap 16 (12-20) BUN 14 (9-16) mg/dL Creatinine 0.75 (0.5-1.4) mg/dL Estim Creat Clear Calc 82.9 Estimated GFR > 60 Random Glucose 109 (60-115) mg/dL Calcium 9.6 (8.4-10.2) mg/dL Total Bilirubin 0.2 (0.0-1.0) mg/dL AST 16 (5-31) U/L ALT 17 (0-31) U/L Alkaline Phosphatase 90 (39-117) U/L Troponin I High Sens < 2.7 (<3.5-17.0) ng/L Total Protein 6.8 (6.5-8.0) g/dL Albumin 3.8 (3.5-5.0) g/dL Lipase 16 (8-78) U/L Stool Occult Blood POSITIVE (NEGATIVE) Influenza Type A (PCR) NEGATIVE (Negative) Influenza Type B (PCR) NEGATIVE (Negative) RSV RNA Qual (PCR) NEGATIVE (Negative) SARS-CoV-2 RNA (RT-PCR) NEGATIVE (Negative) Independent Interpretation I performed an independent interpretation of an: CT Scan ( Abdomen pelvis:1. Mild wall thickening and stratified enhancement with submucosal edema involving the terminal ileum and distal ileum most consistent with active inflammatory bowel disease in this patient with a history of Crohn's. Evaluation of stricture is limited in the absence of oral contras) Radiology Impression Discussion of test interpretation with radiology: I have reviewed the radiologist's reading. Medications Administered Discontinued Medications Generic Name Dose Route Start Last Admin Trade Name Freq PRN Reason Stop Dose Admin Famotidine 20 mg 06/06/24 08:00 06/06/24 08:41 Famotidine/Pf 20 Mg/2 Ml Vial IVPUSH 07/20/24 08:01 20 mg ONCE ONE Administration Hydromorphone HCl 2 mg 06/06/24 08:23 06/06/24 08:41 Hydromorphone Hcl 2 Mg/Ml Vial IVPUSH 06/06/24 08:24 2 mg ONCE ONE Administration Protocol Sodium Chloride 1,000 mls @ 999 mls/hr 06/06/24 08:00 06/06/24 08:49 Ns IV 06/06/24 09:00 999 mls/hr .Q1H1M ONE Administration Iohexol 85 ml 06/06/24 09:27 06/06/24 09:28 Iohexol 350 Mg/Ml 100 Ml Infus..Btl IV 06/06/24 09:28 85 ml ONCE ONE Administration Ketorolac Tromethamine 30 mg 06/06/24 08:00 06/06/24 08:40 Ketorolac Tromethamine 30 Mg/Ml Vial IVPUSH 06/06/24 08:01 30 mg ONCE ONE Administration Ondansetron HCl 4 mg 06/06/24 08:00 06/06/24 08:41 Ondansetron Hcl 4 Mg/2 Ml Vial IVPUSH 06/06/24 08:01 4 mg ONCE ONE Administration Discharge Plan Discharge Clinical Impression: Exacerbation of Crohn's disease Patient Disposition: Admitted As Inpatient Print Language: Surinamese
[2024-06-06 08:09] LABS: Alanine Aminotransferase 17 U/L (0-31); Albumin Level 3.8 g/dL (3.5-5.0); Alkaline Phosphatase 90 U/L (39-117); Anion Gap 16 (12-20); Aspartate Amino Transferase 16 U/L (5-31); Bilirubin Total 0.2 mg/dL (0.0-1.0); Blood Urea Nitrogen 14 mg/dL (9-16); Calcium 9.6 mg/dL (8.4-10.2); Carbon Dioxide 19 mmol/L (22-29); Chloride 109 mmol/L (96-108); Creatinine Clr Calc Pharmacy 82.9; Estimated Glomerular Filt Rate > 60; Glucose Random 109 mg/dL (60-115); Lipase 16 U/L (8-78); Potassium 3.4 mmol/L (3.3-5.1); Sodium 141 mmol/L (135-145); Total Protein 6.8 g/dL (6.5-8.0)
[2024-06-06 08:25] LABS: Troponin-I High Sensitivity < 2.7 ng/L (<3.5-17.0)
[2024-06-06 08:26] LABS: OBS Int Ctl Valid YES; OBS1 POSITIVE (NEGATIVE)
--- NOTE | 2024-06-06 08:30 | PC.NURSE ---
patient arrives through external triage complaining of abdominal pain for the last few days, patient with history of abdominal surgeries in the past, inconsolable by this RN or staff, patient writhing in bed in pain, MD made aware, patient still difficult to redirect. patient states she has been here in the past and dilaudid works best for her pain. patient endorsing nausea and abdominal tenderness. states her abdomen feels like my belly is spasming patient hyperventilating in room and visibly anxious. abdomen tender to palpation, bowel sounds active in all four quadrants, patient denies any diarrhea, chest pain, shortness of breath. VSS at this time. EKG completed in triage blood work completed in triage.
[2024-06-06 08:33] LABS: Influenza A PCR NEGATIVE (Negative); Influenza B PCR NEGATIVE (Negative); Resp Syncy Virus RNA Qual PCR NEGATIVE (Negative); SARS COV2 PCR INHOUSE NEGATIVE (Negative)
[2024-06-06] MEDS: Ketorolac Tromethamine 30 MG/ML VIAL IVPUSH (08:40)
[2024-06-06] MEDS: ondansetron HCL 4 MG/2 ML VIAL IVPUSH ×2 (08:41→16:07)
[2024-06-06] MEDS: HYDROmorphone HCl 2 MG/ML VIAL IVPUSH (08:41)
[2024-06-06] MEDS: Famotidine/PF 20 MG/2 ML VIAL IVPUSH (08:41)
[2024-06-06] MEDS: 0.9 % Sodium Chloride 1,000 ML 999 ML IV ×2 (08:49→11:24)
--- NOTE | 2024-06-06 08:57 | PC.NURSE ---
delay in medication administration due to patient being very difficult stick, 22g IV placed by this RN in left knuckle, OK per MD, NS running, patient medicated per JAN, CT scan aware that patient is ready
[2024-06-06] MEDS: iohexoL 350 MG/ML 100 ML INFUS..BTL 85 ML IV (09:28)
[2024-06-06] MEDS: methylPREDNISolone Sod Succ 125 MG/2 ML VIAL IVPUSH (10:56)
[2024-06-06] MEDS: metroNIDAZOLE/NS 500 MG/100 ML PIGGYBACK 100 MG IV ×2 (10:56→20:15)
[2024-06-06] MEDS: cefTRIAXone sodium 1 GM in 0.9 % Sodium Chloride 50 ML IV (10:56)
[2024-06-06] MEDS: HYDROmorphone HCl 1 MG/ML SYRINGE IVPUSH (11:21)
--- NOTE | 2024-06-06 11:45 | PHA.MEDREC ---
Pharmacy Consult ? Medication Reconciliation Pharmacy has completed the medication reconciliation. Spoke with Gabi to confirm medications. Patient states she had her last Entyvio infusion here in April, EMR says 04/24. She was scheduled for an appt Saturday and of last week but had to cancel both times due to being hospitalized and her next scheduled appt is 06/12. She states she has been cutting her zolpidem in half and taking every night due to having more trouble trying to sleep, she has been trying to taper down and was doing 12.5mg Q other night before this. She has both ODT and regular tabs of zofran at home depending if she is able to swallow. She is still not taking tramadol at the moment and has a 1/2 tablet of the morphine left at home. She confirmed her current dose for omeprazole is 40mg daily. She has not taken duloxetine in a few days and is need of a refill. She takes the zolpidem, clonidide, lorazepam, and dicyclomine scheduled. Despite being in a lot of pain patient was a great historian.
--- NOTE | 2024-06-06 12:57 | MHC.EDTECH ---
patient requesting to use bathroom. Assisted patient with ambulating. Patient gait steady and states she is okay to return on her own unassisted. Patient aware to ring call mckeon if she needs assistance back from bathroom.
--- NOTE | 2024-06-06 12:59 | P.HPHOSP_ITS ---
History of Present Illness Date of Service: 06/06/24 Attending physician on admission: Shelby Valenzuela Chief Complaint: abd pain, n/v 48-year-old female with history of anxiety, Crohn's disease, 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's disease, chronic CDiff carrier, history of diverticulitis, depression, history of renal cell carcinoma, lumbar degenerative disc disease, migraine, bilateral osteoarthritis of the hips presented to the ED for evaluation of severe diffuse abd pain, worst on the left side associated with N/V. She did have watery diarrhea x3 weeks ago, which she states is her baseline, but has since been constipated. Reports a hard bowel movement that ended up soft and was normal in color. No ongoing diarrhea, no melena/hematochezia. Has been using miralax. She is on entivio infusions, but her infusions were canceled twice last week, follows with Dr. Alexis. No fevers, chills, ingestion of bad foods, recent travel, sick contacts. She is very anxious, currently reporting 6/10 non radiating pain, was 10/10 on arrival. Since arrival, vital signs stable. There is a leukocytosis of 13.3. Renal function baseline, electrolyte levels normal except for chloride 109, CO2 19. Troponin below detectable limits. Lipase 16. ESR, CRP pending. Stool occult blood positive. Negative for COVID, flu, RSV. CT abdomen/pelvis shows mild wall thickening and stratified enhancement with submucosal edema involving the terminal ileum and distal ileum most consistent with active inflammatory bowel disease. No SBO. There is also evidence of possible mild acute diverticulitis versus acute colitis. Incidentally seen is a heterogenous cortical lesion in the posterior aspect of the interpolar right kidney with gradual increase in size over time. In the ED, has received 125 mg IV methylprednisolone, 1 g ceftriaxone, 500 mg Flagyl, ondansetron, pain medication, IV fluids. Review of Systems 2 Review of Systems: Yes all other systems are reviewed and are negative [facility] Medical History Clostridioides difficile carrier Renal calculus, bilateral Postcoital bleeding Major depression, recurrent, chronic Furuncle Diverticulitis Obesity (BMI 30-39.9) Crohn's colitis Crohns disease of small intestine Crohn's colitis Intractable nausea and vomiting Migraine History of renal cell cancer (~2014) Osteoarthritis of hips, bilateral Depression Crohn's disease Lumbar degenerative disc disease Insomnia Anxiety 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 Family History Father Crohn disease Migraine Cancer Mother HTN (hypertension) Vertigo Cervical cancer Maternal Grandmother HTN (hypertension) Hyperlipidemia Diabetes mellitus Paternal Grandmother Diabetes mellitus Other Mental health problem Surgical History Hx of colonoscopy History of esophagogastroduodenoscopy (EGD) History of removal of calculus of renal pelvis through percutaneous nephrostomy (~10/2015) History of cryosurgery (~04/20/15) History of intestinal surgery History of arthroplasty (~01/2012) Social History Household Members: Family Housing: House Do you presently have visiting nurse or other home services: No Unable to assess alcohol history related to: Unable to respond Alcohol intake: current Alcohol intake frequency: holidays/special occasions only Patient Tobacco Use Status: Former Tobacco user Tobacco use type: Cigarette Smoked in Last 30 Days: No e-Cigarette/Vaping Use: Former Use Second Hand Smoke Exposure: No Use of substances other than those prescribed or required for medical reasons: No Substance Use Type: Marijuana Advance Directives: Yes Advance Directives on File: Yes Advance Directives Date on File: 06/15/22 Do you have a plan to hurt others: No Plan Patient : No service: No Current occupational status: unemployed Gender identity: Female Cognitive needs: No Hearing needs: No Vision needs: Yes (glasses) Meds Allergies Allergy/AdvReac Type Severity Reaction Status Date / Time meperidine [From Demerol] Allergy Severe SWELLING,RASH,THROAT Verified 06/06/24 07:36 CLOSES latex [LATEX] Allergy Mild RASH Verified 06/06/24 07:36 codeine [Codeine] AdvReac Intermediate NAUSEA/VOMITING, Verified 06/06/24 07:36 GI upset/vomiting duloxetine AdvReac Intermediate headaches Verified 06/06/24 07:36 trazodone AdvReac Mild Anxiety Verified 06/06/24 07:36 Fish Containing Products AdvReac Unknown NAUSEA/VOMI Verified 06/06/24 07:36 [Fish Product Derivatives] TING bupropion AdvReac Intermediate increased Uncoded 06/06/24 07:36 headaches Active Medications: Current Medications Acetaminophen (Acetaminophen 325 Mg Tablet) 650 mg PO Q6H PRN PRN Reason: Pain, Mild (Pain Scale 1-3), fever or headache Calcium Carbonate (Calcium Carbonate 750 Mg Tab.Chew) 750 mg PO Q4H PRN PRN Reason: Heartburn Clonidine HCl (Clonidine Hcl 0.1 Mg Tablet) 0.1 mg PO TID PRN; Protocol PRN Reason: for anxiety Dicyclomine HCl (Dicyclomine Hcl 10 Mg Capsule) 10 mg PO QID COUNTS INCLUDE 234 BEDS AT THE [facility] Duloxetine HCl (Duloxetine Hcl 30 Mg Capsule.Dr) 30 mg PO BID BENJAMIN Enoxaparin Sodium (Enoxaparin Sodium 40 Mg/0.4 Ml Syringe) 40 mg SUBCUT Q24H BENJAMIN Hydrocortisone Sodium Succinate (Hydrocortisone Sod Succ/Pf 100 Mg Vial) 50 mg IVPUSH Q8H BENJAMIN Hydromorphone HCl (Hydromorphone Hcl 1 Mg/Ml Syringe) 0.5 mg IVPUSH Q4H PRN; Protocol PRN Reason: Pain, Severe (Pain Scale 7-10) Sodium Chloride (Ns) 1,000 mls @ 100 mls/hr IVCONT .Q10H BENJAMIN Lorazepam (Lorazepam 1 Mg Tablet) 1 mg PO TID PRN PRN Reason: anxiety Magnesium Hydroxide (Milk Of Magnesia 30 Ml Oral.Susp) 30 ml PO DAILY PRN PRN Reason: Constipation Melatonin (Melatonin 3 Mg Tablet) 6 mg PO BEDTIME PRN PRN Reason: Insomnia Metoclopramide HCl (Metoclopramide Hcl 10 Mg Tablet) 10 mg PO Q6H PRN PRN Reason: nausea and vomiting Non-Formulary Medication (Cholestyramine (With Sugar)) 4 gm PO DAILY PRN PRN Reason: Diarrhea Non-Formulary Medication (Lactobacillus Combination No.4 [Probiotic]) 3,000 mmu cells PO DAILY COUNTS INCLUDE 234 BEDS AT THE [facility] Non-Formulary Medication (Mesalamine) 1,000 mg PO QID COUNTS INCLUDE 234 BEDS AT THE [facility] Non-Formulary Medication (Zolpidem) 6.25 mg PO BEDTIME BENJAMIN Non-Formulary Medication (Budesonide) 9 mg PO DAILY COUNTS INCLUDE 234 BEDS AT THE [facility] Omeprazole (Omeprazole 40 Mg Capsule.Dr) 40 mg PO DAILY COUNTS INCLUDE 234 BEDS AT THE [facility] Oxycodone HCl (Oxycodone Hcl Immed Release 5 Mg Tablet) 5 mg PO Q6H PRN PRN Reason: Pain, Severe (Pain Scale 7-10) Polyethylene Glycol (Polyethylene Glycol 3350 17 Gm Powd.Pack) 17 gm PO DAILY PRN PRN Reason: Constipation Sodium Chloride (0.9 % Sodium Chloride Flush 3 Ml Syringe) 3 ml IVFLUSH QSHIFT BENJAMIN Sumatriptan Succinate (Sumatriptan Succinate 50 Mg Tablet) 50 mg PO DAILY MRX1 PRN PRN Reason: Migraine Headache Home Medications ?Medication ?Instructions ?Recorded ?Confirmed ?Last Taken ?Type dicyclomine 10 mg capsule 10 - 20 mg PO QID Gastrointestinal 07/17/22 06/06/24 12/09/22 History Spasms Or Cramping vedolizumab 300 mg intravenous 300 mg IV Q4W 10/16/22 06/06/24 04/24/24 History solution (Entyvio) budesonide 3 mg 9 mg PO DAILY 11/14/22 06/06/24 03/31/24 History capsule,delayed,extended release mesalamine 500 mg capsule,extended 1,000 mg PO QID 11/14/22 06/06/24 03/31/24 History release duloxetine 30 mg capsule,delayed 30 mg PO BID 04/01/24 06/06/24 03/31/24 History release omeprazole 40 mg capsule,delayed 40 mg PO DAILY 04/01/24 06/06/24 03/31/24 History release cholestyramine (with sugar) 4 gram 4 g PO DAILY PRN Diarrhea 04/02/24 06/06/24 Unknown History oral powder acetaminophen 500 mg tablet 1,000 mg PO DAILY PRN Pain 06/06/24 06/06/24 Unknown History clonidine HCl 0.1 mg tablet 0.1 mg PO TID PRN for anxiety 06/06/24 06/06/24 Unknown History lorazepam 1 mg tablet 1 mg PO TID PRN anxiety 06/06/24 06/06/24 Unknown History ondansetron HCl 4 mg tablet 4 mg PO Q6H PRN Nausea And Vomiting 06/06/24 06/06/24 Unknown History polyethylene glycol 3350 17 17 g PO DAILY PRN Constipation 06/06/24 06/06/24 06/05/24 History gram/dose oral powder (Miralax) zolpidem 12.5 mg tablet,extended 6.25 mg PO BEDTIME insomnia 06/06/24 06/06/24 Unknown History release,multiphase Physical Exam 2 Vital Signs and Narrative: Vital Signs: Last Vital Signs Temp 97.8 F 06/06/24 11:05 Pulse 83 06/06/24 11:05 Resp 19 06/06/24 11:21 BP 162/90 H 06/06/24 11:05 Pulse Ox 100 06/06/24 11:05 O2 Del Method Room Air 06/06/24 11:05 BMI result Body Mass Index 27.4 Constitutional - Awake and Alert, No apparent distress Eyes - PERRLA, EOMI Cardiovascular - S1S2, RRR, No edema Respiratory - Normal lung expansion, Normal respiratory effort, No respiratory distress, CTA bilaterally Gastrointestinal - diffuse ttp greatest in llq with mild distension. +BS; No rebound or guarding Extremities - no calf tenderness bilaterally, no swelling Musculoskeletal - Normal inspection, normal ROM Skin - Warm/Dry Neurological - Alert & oriented x3 Psychological - anxious appearing Results Labs 06/06/24 07:47 06/06/24 07:47 Labs: Laboratory Results - last 24 hr 06/06/24 06/06/24 07:47 08:15 MCV 89.5 MCH 30.7 MCHC 34.3 RDW 14.1 Plt Count 350 MPV 9.8 Immature Gran % (Auto) 0.5 H Neut % (Auto) 75.7 H Lymph % (Auto) 15.0 L [place] % (Auto) 7.3 Eos % (Auto) 1.1 Baso % (Auto) 0.4 Lymph # (Auto) 2.0 [place] # (Auto) 1.0 Eos # (Auto) 0.2 Baso # (Auto) 0.1 Abs Immat Gran (auto) 0.06 H Absolute Neuts (auto) 10.1 H Absolute Nucleated RBC 0.000 Nucleated RBC % (auto) 0.0 Anion Gap 16 Estim Creat Clear Calc 82.9 Estimated GFR > 60 Random Glucose 109 Calcium 9.6 Total Bilirubin 0.2 AST 16 ALT 17 Alkaline Phosphatase 90 Troponin I High Sens < 2.7 Total Protein 6.8 Albumin 3.8 Lipase 16 Stool Occult Blood POSITIVE Influenza Type A (PCR) NEGATIVE Influenza Type B (PCR) NEGATIVE RSV RNA Qual (PCR) NEGATIVE SARS-CoV-2 RNA (RT-PCR) NEGATIVE Imaging Radiologist's Impressions: Impressions Abdomen/Pelvis CT 06/06/24 09:25 IMPRESSION: 1. Mild wall thickening and stratified enhancement with submucosal edema involving the terminal ileum and distal ileum most consistent with active inflammatory bowel disease in this patient with a history of Crohn's. Evaluation of stricture is limited in the absence of oral contrast, however no significant upstream disproportional dilatation is seen to suspect a high-grade small bowel obstruction. 2. Colonic diverticulosis with short segment of trace pericolonic fatty haziness in the distal descending colon suggesting mild acute diverticulitis, less likely acute colitis in the proper clinical content. 3. Small hiatal hernia. 4. A heterogeneous cortical lesion in the posterior aspect of the interpolar right kidney demonstrates gradual increase in size over time, underlying slow-growing neoplasm is not excluded. Recommend further evaluation with outpatient dynamic abdominal MRI with and without intravenous contrast. 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 No SBO. There is also evidence of possible mild acute diverticulitis versus acute colitis -WBC 13.5, esr/crp pending. Tachypnea due to anxiety/pain, no sepsis/severe sepsis -IV ctx and flagyl (initiated 06/06) -Keep PO for now due to PO intolerance with ongoing n/v. Continue IVF, advance diet as tolerated -ondansetron prn -pain management prn using pain scale -50mg iv hydrocortisone TID -gi consult -continue maintenance meds -follow cbc #Depression/anxiety -continue home meds #GERD -ppi #Constipation -continue miralax dvt prophylaxis- lovenox full code pt requires inpt stay at least 2 midnights for management of acute crohns flare and diverticulitis receiving iv pain control due to intractable pain and npo diet with advancement due to po intolerance. Will require iv steroids, iv abx, and expert consultation Quality Stroke Does the patient have a stroke diagnosis?: No VTE Prior VTE?: No VTE Risk Level:: Medical - moderate - high VTE Device Contraindication: Treatment Not Indicated VTE Drug Contraindication: N/A - Med Ordered
--- NOTE | 2024-06-06 13:10 | PC.NURSE ---
delay in medication administration while pharmacy verifies medications
[2024-06-06 13:25] LABS: C Reactive Protein 0.92 mg/dL (< or = 0.50)
[2024-06-06] MEDS: Dicyclomine HCl 10 MG CAPSULE PO ×2 (13:32→20:19)
[2024-06-06] MEDS: LORazepam 2 MG/ML VIAL 1 MG IVPUSH ×2 (13:32→23:13)
[2024-06-06] MEDS: 0.9 % Sodium Chloride 1,000 ML 100 ML IVCONT ×2 (13:39→20:11)
--- NOTE | 2024-06-06 13:46 | PC.NURSE ---
patient provided with commode to use for rest room, educated to not get up without assistance, able to stand and pivot to commode. medicated per MAR. offering no other complaints at this time
[2024-06-06 13:59] LABS: Erythrocyte Sedimentation Rate 19 MM/HR (0-20)
--- NOTE | 2024-06-06 14:43 | MHC.EDTECH ---
Patient requesting additional ice chips. This tech provided patient with a fresh cup. Patient uncomfortable, pacing and rocking asking for medications. This tech explained her nurse was with another patient but would relay the information to her. Patient expressed understanding.
[2024-06-06] MEDS: LORazepam 1 MG TABLET PO ×2 (16:09→20:19)
[2024-06-06] MEDS: oxyCODONE HCl Immed Release 5 MG TABLET PO ×2 (16:09→23:12)
[2024-06-06] MEDS: cloNIDine HCL 0.1 MG TABLET PO ×2 (16:09→20:18)
[2024-06-06] MEDS: Enoxaparin Sodium 40 MG/0.4 ML SYRINGE SUBCUT (16:10)
--- NOTE | 2024-06-06 17:18 | PC.NURSE ---
pharmacy called to request miguel
[2024-06-06] MEDS: Mesalamine 250 MG CAPSULE.ER 1000 MG PO ×2 (17:54→20:20)
[2024-06-06] MEDS: 0.9 % Sodium Chloride Flush 3 ML SYRINGE IVFLUSH (19:39)
[2024-06-06] MEDS: HYDROmorphone HCl 0.5 MG/0.5 ML SYRINGE IVPUSH (20:02)
[2024-06-06] MEDS: Hydrocortisone Sod Succ/PF 100 MG VIAL 50 MG IVPUSH (20:05)
[2024-06-06] MEDS: DULoxetine HCl 30 MG CAPSULE.DR PO (20:18)
[2024-06-06] MEDS: Metoclopramide HCl 10 MG TABLET PO (20:19)
[2024-06-07] MEDS: Zolpidem Tartrate 5 MG TABLET PO ×2 (00:29→19:45)
[2024-06-07] MEDS: HYDROmorphone HCl 0.5 MG/0.5 ML SYRINGE IVPUSH ×5 (00:34→23:32)
[2024-06-07] MEDS: ondansetron HCL 4 MG/2 ML VIAL IVPUSH ×4 (02:00→23:32)
[2024-06-07] MEDS: Hydrocortisone Sod Succ/PF 100 MG VIAL 50 MG IVPUSH ×3 (02:03→17:16)
[2024-06-07] MEDS: metroNIDAZOLE/NS 500 MG/100 ML PIGGYBACK 100 MG IV ×3 (02:05→18:10)
[2024-06-07] MEDS: HYDROmorphone HCl 1 MG/ML SYRINGE IVPUSH (02:25)
--- NOTE | 2024-06-07 04:56 | PC.NURSE ---
Addendum entered by Marian Riggs RN 06/07/24 05:05: Around 2AM, pt awoken with increase abdominal pain and anxiety. Pt was given PRN Dilaudid 0.5mg IV earlier at midnight with moderate effect. MD Manzo was notified of the situation. One time dose of Dilaudid 1mg IV was ordered. Pt was medicated at 02:25 per MAR with good effect. Pt was able to settle in bed and get rest. Pt's bed in lowest position and call mckeon within reach. Will continue to monitor pt's pain and behavior. Original Note: Approximately after 22:30, pt became more anxious, restlessness, and emotional (crying/moaning). Pt was given her BENJAMIN Ativan 1mg PO prior to this situation with no effect. MD Manzo was notified of the situation and ordered one time dose of Ativan 1mg IV. Pt was medicated per MAR with good effect. Pt's bed in lowest position and call mckeon within reach. Will continue to monitor.
[2024-06-07] MEDS: Omeprazole 40 MG CAPSULE.DR PO (06:01)
[2024-06-07] MEDS: 0.9 % Sodium Chloride 1,000 ML 100 ML IVCONT ×2 (06:03→17:17)
[2024-06-07 06:07] LABS: MANUAL DIFF FLAG NO
[2024-06-07 06:31] LABS: Basophils Percent Auto 0.1 % (0-2); Hematocrit 35.7 % (37.0-47.0); Hemoglobin 11.6 g/dl (12.0-16.0); Imm Gran Abs Auto 0.09 X10*3/uL (0.00-0.03); Imm Gran Pct Auto 1.1 % (0.0-0.4); Lymphocytes Absolute Auto 0.6 X10*3/uL (1.2-4.9); Lymphocytes Percent Auto 6.9 % (20-40); Mean Corpuscular HGB Conc 32.5 g/dl (31.0-35.0); Mean Corpuscular Hemoglobin 30.3 pg (27.0-33.0); Mean Corpuscular Volume 93.2 fL (80.0-98.0); Mean Platelet Volume 10.3 fL (9.4-12.3); Monocytes Absolute Auto 0.4 X10*3/uL (0.1-1.2); Monocytes Percent Auto 4.7 % (2-11); Neutrophils Absolute Auto 7.2 x10*3/uL (2.0-8.3); Neutrophils Percent Auto 87.2 % (45-73); Platelet Count 265 X10*3/uL (160-400); Red Blood Count 3.83 X10*6/uL (4.20-5.50); Red Cell Distribution Width 14.4 % (11.0-16.0); White Blood Count 8.2 X10*3/uL (4.8-10.8)
[2024-06-07 06:33] LABS: Anion Gap 12 (12-20); Blood Urea Nitrogen 10 mg/dL (9-16); Calcium 9.2 mg/dL (8.4-10.2); Carbon Dioxide 21 mmol/L (22-29); Chloride 109 mmol/L (96-108); Creatinine Clr Calc Pharmacy 97.3; Estimated Glomerular Filt Rate > 60; Glucose Random 113 mg/dL (60-115); Potassium 3.9 mmol/L (3.3-5.1); Sodium 138 mmol/L (135-145)
[2024-06-07] MEDS: SUMAtriptan succinate 50 MG TABLET PO ×2 (06:36→18:09)
[2024-06-07] MEDS: Metoclopramide HCl 10 MG TABLET PO ×3 (06:36→19:44)
--- NOTE | 2024-06-07 06:42 | PC.NURSE ---
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 PRN Zofran & Reglan given to pt with minimal effect, see MAR for info with. Will continue to monitor pt.
[2024-06-07 06:51] VITALS: BP 127/74; PULSE 80; RESP 17; TEMP 36.6; O2SAT 97
[2024-06-07] MEDS: LORazepam 2 MG/ML VIAL 0.5 MG IVPUSH (10:30)
[2024-06-07] MEDS: Mesalamine 250 MG CAPSULE.ER 1000 MG PO ×4 (10:30→19:44)
[2024-06-07] MEDS: Famotidine/PF 20 MG/2 ML VIAL IVPUSH (10:30)
[2024-06-07] MEDS: cloNIDine HCL 0.1 MG TABLET PO ×3 (10:31→19:44)
[2024-06-07] MEDS: Dicyclomine HCl 10 MG CAPSULE PO ×4 (10:31→19:43)
[2024-06-07] MEDS: DULoxetine HCl 30 MG CAPSULE.DR PO ×2 (10:31→19:45)
[2024-06-07] MEDS: cefTRIAXone sodium 1 GM in 0.9 % Sodium Chloride 50 ML IV (10:47)
--- NOTE | 2024-06-07 11:23 | MHC.CM.PN ---
PT REPORTS SHE LIVES WITH HER S/O AND TWO KIDS AGES 16 AND 18 SHE IS INDEPENDENT WITH CARE AND HAS NO SERVICES PT HAS A SHOWER CHAIR THAT SHE BORROWED, SHE SAYS SHE REQUESTED ONE FROM [facility] BUT HAS NO HEARD BACK MESSAGE LEFT FOR [facility] LIAISON INQUIRING ABOUT PTS SHOWER CHAIR HCP ON FILE PCP: [facility] IMM DELIVERED DCP: HOME NO SERVICES VIA PRIVATE TRANSPORT
--- NOTE | 2024-06-07 12:34 | P.PNIM_ITS ---
Subjective Subjective Date of Service: 06/07/24 Interval History: Being followed for acute Crohn's flare and mild diverticulitis. Complaining of left lower quadrant pain with radiation towards mid chest, holding chest and shaking, feels anxious spitting clear phlegm, no fevers no chills, WBC normalized, no diarrhea. Review of Systems All other systems are reviewed and are negative. Physical Exam 2 Vital Signs: Vital Signs: Last Vital Signs Temp 98 F 06/07/24 06:51 Pulse 80 06/07/24 06:51 Resp 17 06/07/24 06:51 BP 127/74 06/07/24 06:51 Pulse Ox 97 06/07/24 06:51 O2 Del Method Room Air 06/07/24 06:51 BMI result Body Mass Index 27.5 Const: Other: Gen: in no acute distress HEENT: sclera anicteric, moist mucus membranes Neck: supple Positive tenderness left anterior chest wall with palpation Lungs: clear to auscultation bilaterally Heart: regular rate and rhythm, no murmurs Abd: soft, mild tenderness LLQ without rebound, no rigidity, no epigastric tenderness Ext: no edema Skin: warm/well-perfused Neuro: alert and oriented x3, no focal findings Psych: Very anxious, unable to sit still Objective Data Active Medications Acetaminophen (Acetaminophen 325 Mg Tablet) 650 mg PO Q6H PRN PRN Reason: Pain, Mild (Pain Scale 1-3), fever or headache Calcium Carbonate (Calcium Carbonate 750 Mg Tab.Chew) 750 mg PO Q4H PRN PRN Reason: Heartburn Cholestyramine Resin (Cholestyramine (With Sugar) 4 Gm Powd.Pack) 4 gm PO DAILY PRN PRN Reason: Diarrhea Clonidine HCl (Clonidine Hcl 0.1 Mg Tablet) 0.1 mg PO TID [facility]; Protocol Last Admin: 06/07/24 10:31 Dose: 0.1 mg Documented By: ISRAEL Dicyclomine HCl (Dicyclomine Hcl 10 Mg Capsule) 10 mg PO QID [facility] Last Admin: 06/07/24 10:31 Dose: 10 mg Documented By: ISRAEL Duloxetine HCl (Duloxetine Hcl 30 Mg Capsule.) 30 mg PO BID [facility] Last Admin: 06/07/24 10:31 Dose: 30 mg Documented By: ISRAEL Enoxaparin Sodium (Enoxaparin Sodium 40 Mg/0.4 Ml Syringe) 40 mg SUBCUT Q24H [facility] Last Admin: 06/06/24 16:10 Dose: 40 mg Documented By: STEVE Famotidine (Famotidine/Pf 20 Mg/2 Ml Vial) 20 mg IVPUSH DAILY [facility] Last Admin: 06/07/24 10:30 Dose: 20 mg Documented By: ISRAEL Hydrocortisone Sodium Succinate (Hydrocortisone Sod Succ/Pf 100 Mg Vial) 50 mg IVPUSH Q8H [facility] Last Admin: 06/07/24 10:30 Dose: 50 mg Documented By: ISRAEL Hydromorphone HCl (Hydromorphone Hcl 0.5 Mg/0.5 Ml Syringe) 0.5 mg IVPUSH Q4H PRN; Protocol PRN Reason: Pain, Severe (Pain Scale 7-10) Last Admin: 06/07/24 10:29 Dose: 0.5 mg Documented By: ISRAEL Sodium Chloride (Ns) 1,000 mls @ 100 mls/hr IVCONT .Q10H [facility] Last Admin: 06/07/24 10:50 Dose: Not Given Documented By: ISRAEL Non-Admin Reason: previous bag running Metronidazole (Flagyl) 500 mg in 100 mls @ 100 mls/hr IV Q8H [facility] Last Admin: 06/07/24 11:22 Dose: 100 mls/hr Documented By: ISRAEL Ceftriaxone Sodium 1 gm/ (Sodium Chloride) 50 mls @ 100 mls/hr IV Q24H [facility] Last Infusion: 06/07/24 11:26 Dose: Infused Documented By: ISRAEL Lorazepam (Lorazepam 2 Mg/Ml Vial) 0.5 mg IVPUSH TID [facility] Last Admin: 06/07/24 10:30 Dose: 0.5 mg Documented By: ISRAEL Magnesium Hydroxide (Milk Of Magnesia 30 Ml Oral.Susp) 30 ml PO DAILY PRN PRN Reason: Constipation Melatonin (Melatonin 3 Mg Tablet) 6 mg PO BEDTIME PRN PRN Reason: Insomnia Mesalamine (Mesalamine 250 Mg Capsule.Er) 1,000 mg PO QID [facility] Last Admin: 06/07/24 10:30 Dose: 1,000 mg Documented By: ISRAEL Metoclopramide HCl (Metoclopramide Hcl 10 Mg Tablet) 10 mg PO Q6H PRN PRN Reason: nausea and vomiting Last Admin: 06/07/24 06:36 Dose: 10 mg Documented By: AIDEN Non-Formulary Medication (Budesonide) 9 mg PO DAILY [facility] Omeprazole (Omeprazole 40 Mg Capsule.Dr) 40 mg PO DAILY@0630 [facility] Last Admin: 06/07/24 06:01 Dose: 40 mg Documented By: AIDEN Ondansetron HCl (Ondansetron Hcl 4 Mg/2 Ml Vial) 4 mg IVPUSH Q8H PRN PRN Reason: Nausea and Vomiting Last Admin: 06/07/24 10:38 Dose: 4 mg Documented By: ISRAEL Oxycodone HCl (Oxycodone Hcl Immed Release 5 Mg Tablet) 5 mg PO Q6H PRN PRN Reason: Pain, Moderate(Pain Scale 4-6) Last Admin: 06/06/24 23:12 Dose: 5 mg Documented By: AIDEN Comments: per pt requested to take PRN Oxycodone for pain Polyethylene Glycol (Polyethylene Glycol 3350 17 Gm Powd.Pack) 17 gm PO DAILY PRN PRN Reason: Constipation Sodium Chloride (0.9 % Sodium Chloride Flush 3 Ml Syringe) 3 ml IVFLUSH QSHIFT [facility] Last Admin: 06/07/24 07:16 Dose: Not Given Documented By: ISRAEL Non-Admin Reason: IV Running Sumatriptan Succinate (Sumatriptan Succinate 50 Mg Tablet) 50 mg PO DAILY MRX1 PRN PRN Reason: Migraine Headache Last Admin: 06/07/24 06:36 Dose: 50 mg Documented By: AIDEN Zolpidem Tartrate (Zolpidem Tartrate 5 Mg Tablet) 5 mg PO BEDTIME [facility] Last Admin: 06/07/24 00:29 Dose: 5 mg Documented By: AIDEN Labs 06/07/24 05:49 06/07/24 05:49 Labs: Laboratory Results - last 24 hr 06/06/24 06/06/24 06/06/24 07:47 19:05 19:12 MCV MCH MCHC RDW Plt Count MPV Immature Gran % (Auto) Neut % (Auto) Lymph % (Auto) [place] % (Auto) Eos % (Auto) Baso % (Auto) Lymph # (Auto) [place] # (Auto) Eos # (Auto) Baso # (Auto) Abs Immat Gran (auto) Absolute Neuts (auto) Absolute Nucleated RBC Nucleated RBC % (auto) ESR 19 Anion Gap Estim Creat Clear Calc Estimated GFR Random Glucose Calcium C-Reactive Protein 0.92 H C. difficile Tox B Gene Cancelled Cancelled Test SEE NOTE 06/07/24 05:49 MCV 93.2 MCH 30.3 MCHC 32.5 RDW 14.4 Plt Count 265 MPV 10.3 Immature Gran % (Auto) 1.1 H Neut % (Auto) 87.2 H Lymph % (Auto) 6.9 L [place] % (Auto) 4.7 Eos % (Auto) 0.0 Baso % (Auto) 0.1 Lymph # (Auto) 0.6 L [place] # (Auto) 0.4 Eos # (Auto) 0.0 Baso # (Auto) 0.0 Abs Immat Gran (auto) 0.09 H Absolute Neuts (auto) 7.2 Absolute Nucleated RBC 0.000 Nucleated RBC % (auto) 0.0 ESR Anion Gap 12 Estim Creat Clear Calc 97.3 Estimated GFR > 60 Random Glucose 113 Calcium 9.2 C-Reactive Protein C. difficile Tox B Gene Cancelled Test Assessment and Plan (1) Exacerbation of Crohn's disease: Status: Acute Plan 48-year-old female with history of anxiety, Crohn's disease, 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's disease, chronic CDiff carrier, history of diverticulitis, depression, history of renal cell carcinoma, lumbar degenerative disc disease, migraine, bilateral osteoarthritis of the hips admitted for acute crohns flare with diverticulitis #Acute crohns flare with mild acute sigmoid diverticulitis -CT abdomen/pelvis shows mild wall thickening and stratified enhancement with submucosal edema involving the terminal ileum and distal ileum most consistent with active inflammatory bowel disease. No SBO. There is also evidence of possible mild acute diverticulitis versus acute colitis -WBC normalized, CRP 0.92, ESR 19 Tachypnea due to anxiety/pain, no sepsis/severe sepsis -continue IV ctx and flagyl (initiated 06/06) -place on clear liquid diet, continue IV fluids, advance diet as tolerated -continue 50mg iv hydrocortisone TID, antiemetics -gi consult -continue maintenance meds #Depression/anxiety -persistent anxiety continue duloxetine and Ativan will add as needed IV Ativan. #GERD -continue ppi and add IV Pepcid #Constipation -resolved, continue miralax dvt prophylaxis- lovenox full code pt requires continued inpt stay for management of acute crohns flare and diverticulitis receiving iv pain control due to intractable pain and requiring iv steroids, iv abx, and expert consultation Quality Stroke Does the patient have a stroke diagnosis?: No VTE Prior VTE?: No VTE Risk Level:: Medical - moderate - high VTE Device Contraindication: Treatment Not Indicated VTE Drug Contraindication: N/A - Med Ordered
[2024-06-07] MEDS: oxyCODONE HCl Immed Release 5 MG TABLET PO ×2 (12:41→19:43)
[2024-06-07 14:34] VITALS: BP 141/77
[2024-06-07 14:40] VITALS: BP 141/77
[2024-06-07] MEDS: LORazepam 1 MG TABLET PO ×2 (14:40→19:45)
[2024-06-07 15:40] VITALS: BP 124/66; PULSE 60; RESP 12; TEMP 36.1; O2SAT 99
[2024-06-07 16:00] VITALS: BP 124/66; PULSE 60; RESP 14; TEMP 36.1; O2SAT 99
[2024-06-07] MEDS: Enoxaparin Sodium 40 MG/0.4 ML SYRINGE SUBCUT (17:16)
[2024-06-07 19:33] VITALS: BP 156/76; PULSE 66; RESP 18; TEMP 36.1; O2SAT 99
[2024-06-07] MEDS: Acetaminophen 325 MG TABLET 650 MG PO (19:44)
[2024-06-07] MEDS: 0.9 % Sodium Chloride Flush 3 ML SYRINGE IVFLUSH (19:45)
[2024-06-07] MEDS: Milk of Magnesia 30 ML ORAL.SUSP PO (23:36)
--- NOTE | 2024-06-07 23:43 | PC.NURSE ---
Assumed care of patient at 19:00. A&Ox4, anxious. On scheduled ativan. Pt continues to c/o moderate to severe LLQ abdominal pain. Pt also continues to c/o intermittent nausea without vomiting despite prn medications administered. Covering Dr. Manzo notified pt c/o nausea again during 23:00 hour, though not yet due for prn zofran or reglan as per JAN. PRN zofran given early per Dr. Manzo written order. +BSx4. Abdomen softly distended, round, appropriately tender to palpation. Pt reports feeling bloated, states LBM was yesterday 06/06. PRN MOM given with zofran and prn dilaudid per JAN. Effectiveness pending.
[2024-06-08] VITALS (13 sets, daily range): BP systolic 113–184; BP diastolic 59–86; PULSE 54–90; RESP 14–20; TEMP 36.3–37.1; O2SAT 99–100; BMI 27.5
[2024-06-08] MEDS: Hydrocortisone Sod Succ/PF 100 MG VIAL 50 MG IVPUSH (02:26)
[2024-06-08] MEDS: oxyCODONE HCl Immed Release 5 MG TABLET PO ×5 (02:26→20:56)
[2024-06-08] MEDS: 0.9 % Sodium Chloride 1,000 ML 100 ML IVCONT (02:26)
[2024-06-08] MEDS: Metoclopramide HCl 10 MG TABLET PO ×3 (02:26→18:14)
[2024-06-08] MEDS: metroNIDAZOLE/NS 500 MG/100 ML PIGGYBACK 100 MG IV ×3 (02:27→18:14)
[2024-06-08] MEDS: HYDROmorphone HCl 0.5 MG/0.5 ML SYRINGE IVPUSH (04:04)
[2024-06-08] MEDS: LORazepam 2 MG/ML VIAL 0.5 MG IVPUSH (04:04)
[2024-06-08] MEDS: Omeprazole 40 MG CAPSULE.DR PO (05:35)
[2024-06-08 07:23] LABS: Anion Gap 13 (12-20); Blood Urea Nitrogen 9 mg/dL (9-16); Calcium 9.2 mg/dL (8.4-10.2); Carbon Dioxide 22 mmol/L (22-29); Chloride 109 mmol/L (96-108); Estimated Glomerular Filt Rate > 60; Glucose Random 121 mg/dL (60-115); Potassium 3.9 mmol/L (3.3-5.1); Sodium 140 mmol/L (135-145)
[2024-06-08] MEDS: Famotidine/PF 20 MG/2 ML VIAL IVPUSH (07:48)
[2024-06-08] MEDS: Mesalamine 250 MG CAPSULE.ER 1000 MG PO ×4 (07:48→20:59)
[2024-06-08] MEDS: ondansetron HCL 4 MG/2 ML VIAL IVPUSH ×2 (07:48→17:23)
[2024-06-08] MEDS: cloNIDine HCL 0.1 MG TABLET PO ×3 (07:49→20:56)
[2024-06-08] MEDS: DULoxetine HCl 30 MG CAPSULE.DR PO ×2 (07:49→20:56)
[2024-06-08] MEDS: LORazepam 1 MG TABLET PO ×3 (07:49→20:56)
[2024-06-08] MEDS: Dicyclomine HCl 10 MG CAPSULE PO ×4 (07:49→20:56)
[2024-06-08] MEDS: 0.9 % Sodium Chloride Flush 3 ML SYRINGE IVFLUSH ×3 (07:53→19:21)
[2024-06-08] MEDS: Acetaminophen 325 MG TABLET 650 MG PO (09:05)
[2024-06-08] MEDS: SUMAtriptan succinate 50 MG TABLET PO (10:28)
[2024-06-08] MEDS: cefTRIAXone sodium 1 GM in 0.9 % Sodium Chloride 50 ML IV (10:28)
--- NOTE | 2024-06-08 10:35 | MHC.CM.PN ---
Per MD rounds patient not medically cleared for dc at this time, awaiting GI input. CM will continue to follow.
--- NOTE | 2024-06-08 12:21 | MHC.CLN ---
NUTRITION DIET=LACTOSE CONTROLLED, BLAND DIET. REPORTS THAT FOLLOWS BLAND DIET. SIGNIFICANT WEIGHT LOSS X 6 MONTHS DUE TO EXACERBATION OF CROHN'S AND DECREASED INTAKE. ADDING ENSURE CLEAR BID TO PROMOTE NUTRITIONAL INTAKE. SUPPLEMENT PROVIDES 480 KCALS, 16 G PROTEIN. FOLLOW FOR INTAKE AND DIET TOLERANCE. SEE CLINICAL NUTRITION ASSESSMENT 06/08/24.
--- NOTE | 2024-06-08 15:46 | P.PNIM_ITS ---
Subjective Subjective Date of Service: 06/08/24 Interval History: Being followed for mild acute diverticulitis and Crohn's flare Complaining of persistent left lower quadrant abdominal pain, tolerating diet, had 1 bowel movement, no nausea, no vomiting, no fevers, no chills, very anxious. Review of Systems All other system are reviewed and are negative. Physical Exam 2 Vital Signs: Vital Signs: Last Vital Signs Temp 97.6 F 06/08/24 15:14 Pulse 54 06/08/24 15:14 Resp 16 06/08/24 15:14 BP 113/59 L 06/08/24 15:14 Pulse Ox 99 06/08/24 15:14 O2 Del Method Room Air 06/08/24 15:14 BMI result Body Mass Index 27.5 Const: Other: Gen: Awake alert x3, less anxious than yesterday, HEENT: sclera anicteric, moist mucus membranes Neck: supple Lungs: clear to auscultation bilaterally Heart: regular rate and rhythm, no murmurs Abd: soft, no left lower quadrant tenderness,,no rigidity, no guarding, bowel sounds audible Ext: no edema Skin: warm/well-perfused Neuro: alert and oriented x3, no focal findings Psych: Anxious Objective Data Active Medications Acetaminophen (Acetaminophen 325 Mg Tablet) 650 mg PO Q6H PRN PRN Reason: Pain, Mild (Pain Scale 1-3), fever or headache Last Admin: 06/08/24 09:05 Dose: 650 mg Documented By: IAIN Calcium Carbonate (Calcium Carbonate 750 Mg Tab.Chew) 750 mg PO Q4H PRN PRN Reason: Heartburn Cholestyramine Resin (Cholestyramine (With Sugar) 4 Gm Powd.Pack) 4 gm PO DAILY PRN PRN Reason: Diarrhea Clonidine HCl (Clonidine Hcl 0.1 Mg Tablet) 0.1 mg PO TID [facility]; Protocol Last Admin: 06/08/24 14:22 Dose: 0.1 mg Documented By: IAIN Dicyclomine HCl (Dicyclomine Hcl 10 Mg Capsule) 10 mg PO QID [facility] Last Admin: 06/08/24 12:34 Dose: 10 mg Documented By: IAIN Duloxetine HCl (Duloxetine Hcl 30 Mg Capsule.) 30 mg PO BID [facility] Last Admin: 06/08/24 07:49 Dose: 30 mg Documented By: IAIN Enoxaparin Sodium (Enoxaparin Sodium 40 Mg/0.4 Ml Syringe) 40 mg SUBCUT Q24H [facility] Last Admin: 06/07/24 17:16 Dose: 40 mg Documented By: ISRAEL Famotidine (Famotidine/Pf 20 Mg/2 Ml Vial) 20 mg IVPUSH DAILY [facility] Last Admin: 06/08/24 07:48 Dose: 20 mg Documented By: IAIN Metronidazole (Flagyl) 500 mg in 100 mls @ 100 mls/hr IV Q8H [facility] Last Infusion: 06/08/24 12:36 Dose: Infused Documented By: IAIN Ceftriaxone Sodium 1 gm/ (Sodium Chloride) 50 mls @ 100 mls/hr IV Q24H [facility] Last Infusion: 06/08/24 11:09 Dose: Infused Documented By: IAIN Lorazepam (Lorazepam 1 Mg Tablet) 1 mg PO TID [facility] Last Admin: 06/08/24 14:22 Dose: 1 mg Documented By: IAIN Magnesium Hydroxide (Milk Of Magnesia 30 Ml Oral.Susp) 30 ml PO DAILY PRN PRN Reason: Constipation Last Admin: 06/07/24 23:36 Dose: 30 ml Documented By: REED Melatonin (Melatonin 3 Mg Tablet) 6 mg PO BEDTIME PRN PRN Reason: Insomnia Mesalamine (Mesalamine 250 Mg Capsule.Er) 1,000 mg PO QID [facility] Last Admin: 06/08/24 12:34 Dose: 1,000 mg Documented By: IAIN Metoclopramide HCl (Metoclopramide Hcl 10 Mg Tablet) 10 mg PO Q6H PRN PRN Reason: nausea and vomiting Last Admin: 06/08/24 11:54 Dose: 10 mg Documented By: IAIN Non-Formulary Medication (Budesonide) 9 mg PO DAILY [facility] Omeprazole (Omeprazole 40 Mg Capsule.Dr) 40 mg PO DAILY@0630 [facility] Last Admin: 06/08/24 05:35 Dose: 40 mg Documented By: REED Ondansetron HCl (Ondansetron Hcl 4 Mg/2 Ml Vial) 4 mg IVPUSH Q8H PRN PRN Reason: Nausea and Vomiting Last Admin: 06/08/24 07:48 Dose: 4 mg Documented By: IAIN Oxycodone HCl (Oxycodone Hcl Immed Release 5 Mg Tablet) 5 mg PO Q6H PRN PRN Reason: Pain, Moderate(Pain Scale 4-6) Last Admin: 06/08/24 14:22 Dose: 5 mg Documented By: IAIN Polyethylene Glycol (Polyethylene Glycol 3350 17 Gm Powd.Pack) 17 gm PO DAILY PRN PRN Reason: Constipation Sodium Chloride (0.9 % Sodium Chloride Flush 3 Ml Syringe) 3 ml IVFLUSH QSHIFT [facility] Last Admin: 06/08/24 07:53 Dose: 3 ml Documented By: IAIN Sumatriptan Succinate (Sumatriptan Succinate 50 Mg Tablet) 50 mg PO DAILY MRX1 PRN PRN Reason: Migraine Headache Last Admin: 06/08/24 10:28 Dose: 50 mg Documented By: IAIN Zolpidem Tartrate (Zolpidem Tartrate 5 Mg Tablet) 5 mg PO BEDTIME [facility] Last Admin: 06/07/24 19:45 Dose: 5 mg Documented By: REED Labs 06/07/24 05:49 06/08/24 07:01 Labs: Laboratory Results - last 24 hr 06/08/24 07:01 Anion Gap 13 Estim Creat Clear Calc 93.0 Estimated GFR > 60 Random Glucose 121 H Calcium 9.2 Assessment and Plan (1) Exacerbation of Crohn's disease: Status: Acute Plan 48-year-old female with history of anxiety, Crohn's disease, 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's disease, chronic CDiff carrier, history of diverticulitis, depression, history of renal cell carcinoma, lumbar degenerative disc disease, migraine, bilateral osteoarthritis of the hips admitted for acute crohns flare with diverticulitis #Acute crohns flare with mild acute sigmoid diverticulitis -complaining of left lower quadrant abdominal pain, tolerating diet, no nausea, no vomiting, no diarrhea -CT abdomen/pelvis shows mild wall thickening and stratified enhancement with submucosal edema involving the terminal ileum and distal ileum most consistent with active inflammatory bowel disease. No SBO.There is also evidence of possible mild acute diverticulitis versus acute colitis -WBC normalized, CRP 0.92, ESR 19 Tachypnea due to anxiety/pain, no sepsis/severe sepsis -continue IV ctx and flagyl (initiated 06/06) -on regular diet DC IV fluids -DC iv hydrocortisone 50 mg TID, transition to by mouth prednisone 40 mg daily, antiemetics -seen by Dr. Alexis he recommend surgical consult for recurrent diverticulitis and agrees with above treatment. #Depression/anxiety -continue duloxetine and Ativan scheduled and as needed, reviewed old records patient has been tried on multiple anxiolytics, is being followed closely by therapist and psychiatrist as outpatient. Support provided #GERD -continue ppi , DC IV Pepcid # Cortical lesion in posterior aspect of the interpolar right kidney demonstrated gradual increase in size over time, underlying slow growing neoplasm is not excluded, outpatient dynamic abdominal MRI with and without intravenous contrast recommended/patient has history of renal cell carcinoma. # hypertension few high blood pressure readings likely due to anxiety #Constipation -resolved, continue miralax dvt prophylaxis- lovenox full code pt requires continued inpt stay for management of acute crohns flare and diverticulitis receiving iv pain control due to intractable pain and requiring iv steroids, iv abx, and expert consultation Quality Stroke Does the patient have a stroke diagnosis?: No VTE Prior VTE?: No VTE Risk Level:: Medical - moderate - high VTE Device Contraindication: Treatment Not Indicated VTE Drug Contraindication: N/A - Med Ordered
[2024-06-08] MEDS: Enoxaparin Sodium 40 MG/0.4 ML SYRINGE SUBCUT (17:23)
--- NOTE | 2024-06-08 18:46 | PC.NURSE ---
Pt reporting 9/10 pain to LLQ and intermittent nausea. Reports minimal pain relief with oxycodone. Abdomen soft, +bowel sounds x4. Tolerating liquids but afraid to try solid food. Encouraged to try soup. Had moderate formed stool this AM. Very anxious, crying and has difficulty staying still. Medicated with scheduled ativan. Dr. Valenzuela and Dr. Alexis in to see pt. New consult for Dr. Milan.
--- NOTE | 2024-06-08 19:20 | PM.EVENT ---
Event Note Date of Service: 06/08/24 Event Note: GI Consult-Full note dictated Imp: Suspect a component of low-grade diverticulitis, +/- Crohn's, and superimposed anxiety/depression. Rec: Would continue antibiotics. Consult surgery for their opinion although it doesn't look like she needs surgical intervention at this time. Will hold steroids given no definitive signs of an active Crohn's flare. Continue outpatient Crohn's regimen otherwise. Continue treatment for anxiety/depression. D/W patient. Thanks Time Spent With Patient Time: Total time managing care of this patient today ____ minutes.
[2024-06-08] MEDS: Zolpidem Tartrate 5 MG TABLET PO (20:56)
[2024-06-09] VITALS (8 sets, daily range): BP systolic 131–149; BP diastolic 61–85; PULSE 53–79; RESP 16–18; TEMP 36.1–36.5; O2SAT 99–100
[2024-06-09] MEDS: ondansetron HCL 4 MG/2 ML VIAL IVPUSH ×2 (02:40→15:09)
[2024-06-09] MEDS: metroNIDAZOLE/NS 500 MG/100 ML PIGGYBACK 100 MG IV ×3 (02:40→18:40)
[2024-06-09] MEDS: oxyCODONE HCl Immed Release 5 MG TABLET PO ×4 (02:40→20:45)
--- NOTE | 2024-06-09 02:40 | CONS_ITS ---
DATE OF SERVICE: 06/08/2024 REASON FOR CONSULTATION: Crohn's disease, diverticulitis, and abdominal pain. HISTORY OF PRESENT ILLNESS: The patient is a 48-year-old female, well known to me with an underlying history of Crohn's disease involving primarily the terminal ileum and perianal area. She has also had episodes of sigmoid diverticulosis. She has been maintained on Entyvio infusions every 4 weeks, Pentasa, budesonide, dicyclomine, Zofran, and omeprazole as an outpatient. She has been troubled by increasing episodes of particularly left lower quadrant pain. She describes intermittent constipation that seems to precipitate these episodes. She has not had any recent signs of bleeding. She has had frequent issues with abdominal pain and intermittent courses of steroids. She has had several ER visits recently for abdominal pain. Her last hospitalization here was in March, at which time, the diagnosis appeared to be that of diverticulitis as opposed to active Crohn's disease. She was treated with antibiotics at that time. She came into the ER on the day of admission due to worsening pain, particularly in the left lower quadrant. A CT scan describes some colonic diverticulosis with some trace pericolonic inflammation in the region of the distal ascending colon. There was some moderate constipation noted. The distal small bowel had some more or less chronic changes of her Crohn's, but without any sign of obstruction. There was no sign of any intraabdominal abscess nor free air. Since admission, she has been maintained on IV hydrocortisone and IV antibiotics. She thinks perhaps she is a tiny bit better, but in general is still having a lot of discomfort. She describes 2 normal bowel movements today. She denies any bleeding. She denies any urinary symptoms. She is not particularly hungry. She has been afebrile. MEDICATIONS: At home included the above, budesonide 9 mg daily, dicyclomine p.r.n., Pentasa 1 g q.i.d., omeprazole, and Entyvio infusions every 4 weeks. Her medications here in the hospital include budesonide, IV ceftriaxone, clonidine, dicyclomine, Cymbalta, Lovenox, Ativan, melatonin, Pentasa 1 g q.i.d., metoclopramide p.r.n., IV Flagyl, omeprazole 40 mg daily, Zofran p.r.n., oxycodone p.r.n., MiraLAX p.r.n., prednisone 40 mg daily, sumatriptan p.r.n., and Ambien. PAST MEDICAL HISTORY: Crohn's disease of the terminal ileum and perianal area. Sigmoid diverticulitis. Gastroesophageal reflux. Erythema nodosum. Depression. Hypertension. Anxiety. B12 deficiency. Lesion in the right kidney, treated with cryo ablation, but without definitive carcinoma. Surgery includes perianal disease with fistula treated by sphincterotomy and anal dilation at [facility] [place] in the . Left hip surgery 1993 and [place] of rods [place] [address] Messer. She denies a history of diabetes, heart disease, or stroke. SOCIAL HISTORY: She does not smoke nor use any significant amounts of alcohol. FAMILY HISTORY: Father has Crohn's disease, but there is no family history of colorectal cancer. REVIEW OF SYSTEMS: CONSTITUTIONAL: She has been feeling poorly at home in regard to the abdominal pain. SKIN: No rash. No pruritus. CARDIAC: No chest pain. PULMONARY: No cough or hemoptysis. GI: As above. URINARY: No dysuria. No hematuria. NEUROLOGIC: No headache or seizures. PSYCHIATRIC: She does have depression and anxiety. PHYSICAL EXAMINATION: GENERAL: The patient is alert, but anxious and somewhat tearful female. SKIN: Warm and dry. Anicteric sclerae. NECK: Supple. ABDOMEN: Soft with some left lower quadrant tenderness to palpation but without mass, rebound, or guarding. The abdomen is nondistended. EXTREMITIES: Without edema. LABORATORY DATA: Laboratories include CT scan as described above. White blood cell count 8.2, hemoglobin 11.6, platelets 265,000. Normal electrolytes. BUN 9, creatinine 0.7. IMPRESSION: At the present time, her pain and overall anxiety about her condition seem to be out of proportion to the findings on her CT scan. Nonetheless, she clearly has the history of diverticulitis and Crohn's disease and I do feel at least some of the left lower quadrant pain could be related to diverticulitis. It does not appear that she has any ongoing active Crohn's disease for the time being. Constipation may also be playing a role in both her abdominal pain in the left side as well as contributing to her diverticulitis. At this point, I would continue antibiotics but I think they can be switched to p.o. I would recommend surgical consultation, although I do not think she needs surgery at this time. Nonetheless, it would be good to have their opinion regarding the findings on the CT scan in regard to the possible diverticulitis. Once she is seen by Surgery, then hopefully her diet can be advanced.Given no definitive signs of active Crohn's I would stop her IV steroids but continue her Budesonide. I did have a discussion with her today that I do think part of her discomfort and issues overall are related to some anxiety, but again we shall try to treat any underlying medical problems as outlined. I would continue her outpatient regimen including the budesonide and Pentasa as you are doing. If she remains stable on her p.o. antibiotics, and can tolerate some diet, then I think she could probably be discharged, assuming the surgeon is agreeable to that and does not think she needs any further treatment in regard to the diverticulitis. I will plan to follow her up in the office as well. She will need to continue her outpatient Entyvio infusions. This has been discussed in detail with her. Thank you for the consultation. MD ROGER Burrell/TALIB / [id number] MTDD
[2024-06-09] MEDS: Omeprazole 40 MG CAPSULE.DR PO (05:41)
[2024-06-09] MEDS: Metoclopramide HCl 10 MG TABLET PO ×2 (07:48→16:31)
[2024-06-09] MEDS: Mesalamine 250 MG CAPSULE.ER 1000 MG PO ×4 (07:48→20:44)
[2024-06-09] MEDS: 0.9 % Sodium Chloride Flush 3 ML SYRINGE IVFLUSH ×3 (07:49→20:46)
[2024-06-09] MEDS: cloNIDine HCL 0.1 MG TABLET PO ×3 (07:49→20:42)
[2024-06-09] MEDS: DULoxetine HCl 30 MG CAPSULE.DR PO ×2 (07:49→20:42)
[2024-06-09] MEDS: LORazepam 1 MG TABLET PO ×3 (07:49→20:44)
[2024-06-09] MEDS: Dicyclomine HCl 10 MG CAPSULE PO ×4 (07:49→20:45)
[2024-06-09] MEDS: cefTRIAXone sodium 1 GM in 0.9 % Sodium Chloride 50 ML IV (10:51)
[2024-06-09] MEDS: Acetaminophen 325 MG TABLET 650 MG PO (10:51)
--- NOTE | 2024-06-09 11:51 | P.PNIM_ITS ---
Subjective Subjective Date of Service: 06/09/24 Interval History: Being followed for mild acute diverticulitis. Complaining of left lower quadrant abdominal pain, on regular diet, no fevers, no chills, no diarrhea had a soft bowel movement, no blood, has intermittent nausea likely due to oxycodone. Review of Systems All other system reviewed and are negative. Physical Exam 2 Vital Signs: Vital Signs: Last Vital Signs Temp 97.6 F 06/09/24 08:00 Pulse 61 06/09/24 08:00 Resp 16 06/09/24 08:00 BP 141/85 H 06/09/24 08:00 Pulse Ox 99 06/09/24 08:00 O2 Del Method Room Air 06/09/24 08:00 BMI result Body Mass Index 27.5 Const: Other: Gen: Awake alert x3, less anxious than yesterday, HEENT: sclera anicteric, moist mucus membranes Neck: supple Lungs: clear to auscultation bilaterally Heart: regular rate and rhythm, no murmurs Abd: soft, non tender ,no rigidity, no guarding, bowel sounds audible Ext: no edema Skin: warm/well-perfused Neuro: alert and oriented x3, no focal findings Psych: Anxious Objective Data Active Medications Acetaminophen (Acetaminophen 325 Mg Tablet) 650 mg PO Q6H PRN PRN Reason: Pain, Mild (Pain Scale 1-3), fever or headache Last Admin: 06/09/24 10:51 Dose: 650 mg Documented By: IAIN Calcium Carbonate (Calcium Carbonate 750 Mg Tab.Chew) 750 mg PO Q4H PRN PRN Reason: Heartburn Cholestyramine Resin (Cholestyramine (With Sugar) 4 Gm Powd.Pack) 4 gm PO DAILY PRN PRN Reason: Diarrhea Clonidine HCl (Clonidine Hcl 0.1 Mg Tablet) 0.1 mg PO TID [facility]; Protocol Last Admin: 06/09/24 07:49 Dose: 0.1 mg Documented By: IAIN Dicyclomine HCl (Dicyclomine Hcl 10 Mg Capsule) 10 mg PO QID [facility] Last Admin: 06/09/24 07:49 Dose: 10 mg Documented By: IAIN Duloxetine HCl (Duloxetine Hcl 30 Mg Capsule.) 30 mg PO BID [facility] Last Admin: 06/09/24 07:49 Dose: 30 mg Documented By: IAIN Enoxaparin Sodium (Enoxaparin Sodium 40 Mg/0.4 Ml Syringe) 40 mg SUBCUT Q24H [facility] Last Admin: 06/08/24 17:23 Dose: 40 mg Documented By: IAIN Metronidazole (Flagyl) 500 mg in 100 mls @ 100 mls/hr IV Q8H [facility] Last Admin: 06/09/24 11:39 Dose: 100 mls/hr Documented By: IAIN Ceftriaxone Sodium 1 gm/ (Sodium Chloride) 50 mls @ 100 mls/hr IV Q24H [facility] Last Infusion: 06/09/24 11:24 Dose: Infused Documented By: IAIN Lorazepam (Lorazepam 1 Mg Tablet) 1 mg PO TID [facility] Last Admin: 06/09/24 07:49 Dose: 1 mg Documented By: IAIN Magnesium Hydroxide (Milk Of Magnesia 30 Ml Oral.Susp) 30 ml PO DAILY PRN PRN Reason: Constipation Last Admin: 06/07/24 23:36 Dose: 30 ml Documented By: REED Melatonin (Melatonin 3 Mg Tablet) 6 mg PO BEDTIME PRN PRN Reason: Insomnia Mesalamine (Mesalamine 250 Mg Capsule.Er) 1,000 mg PO QID [facility] Last Admin: 06/09/24 07:48 Dose: 1,000 mg Documented By: IAIN Metoclopramide HCl (Metoclopramide Hcl 10 Mg Tablet) 10 mg PO Q6H PRN PRN Reason: nausea and vomiting Last Admin: 06/09/24 07:48 Dose: 10 mg Documented By: IAIN Non-Formulary Medication (Budesonide) 9 mg PO DAILY [facility] Omeprazole (Omeprazole 40 Mg Capsule.Dr) 40 mg PO DAILY@0630 [facility] Last Admin: 06/09/24 05:41 Dose: 40 mg Documented By: REED Ondansetron HCl (Ondansetron Hcl 4 Mg/2 Ml Vial) 4 mg IVPUSH Q8H PRN PRN Reason: Nausea and Vomiting Last Admin: 06/09/24 02:40 Dose: 4 mg Documented By: REED Oxycodone HCl (Oxycodone Hcl Immed Release 5 Mg Tablet) 5 mg PO Q6H PRN PRN Reason: Pain, Moderate(Pain Scale 4-6) Last Admin: 06/09/24 09:21 Dose: 5 mg Documented By: IAIN Polyethylene Glycol (Polyethylene Glycol 3350 17 Gm Powd.Pack) 17 gm PO DAILY PRN PRN Reason: Constipation Sodium Chloride (0.9 % Sodium Chloride Flush 3 Ml Syringe) 3 ml IVFLUSH QSHIFT [facility] Last Admin: 06/09/24 07:49 Dose: 3 ml Documented By: IAIN Sumatriptan Succinate (Sumatriptan Succinate 50 Mg Tablet) 50 mg PO DAILY MRX1 PRN PRN Reason: Migraine Headache Last Admin: 06/08/24 10:28 Dose: 50 mg Documented By: IANI Zolpidem Tartrate (Zolpidem Tartrate 5 Mg Tablet) 5 mg PO BEDTIME [facility] Last Admin: 06/08/24 20:56 Dose: 5 mg Documented By: XAVI Labs 06/07/24 05:49 06/08/24 07:01 Assessment and Plan (1) Exacerbation of Crohn's disease: Status: Acute Plan 48-year-old female with history of anxiety, Crohn's disease, 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's disease, chronic CDiff carrier, history of diverticulitis, depression, history of renal cell carcinoma, lumbar degenerative disc disease, migraine, bilateral osteoarthritis of the hips admitted for acute crohns flare with diverticulitis #Abdominal pain with mild acute sigmoid diverticulitis -complaining of left lower quadrant abdominal pain, tolerating diet, no nausea, no vomiting, no diarrhea -CT abdomen/pelvis shows mild wall thickening and stratified enhancement with submucosal edema involving the terminal ileum and distal ileum most consistent with active inflammatory bowel disease. No SBO.There is also evidence of possible mild acute diverticulitis versus acute colitis -WBC normalized, CRP 0.92, ESR 19 Tachypnea due to anxiety/pain, no sepsis/severe sepsis -on IV ctx and flagyl (initiated 06/06) will transition to by mouth Ceftin and Flagyl at a.m. for total 2 weeks due to recurrent diverticulitis. -on regular diet -seen by Dr. Alexis he recommend to DC steroids since no definite signs of active Crohn's flare Seen by Dr. Milan he recommend iv antibiotic for 1 more day and outpatient follow-up. #Depression/anxiety -continue duloxetine and Ativan scheduled and as needed, reviewed old records patient has been tried on multiple anxiolytics, is being followed closely by therapist and psychiatrist as outpatient. Support provided #GERD -continue ppi # Cortical lesion in posterior aspect of the interpolar right kidney demonstrated gradual increase in size over time, underlying slow growing neoplasm is not excluded, outpatient dynamic abdominal MRI with and without intravenous contrast recommended/patient has history of renal cell carcinoma. # hypertension few high blood pressure readings likely due to anxiety #Constipation -resolved, continue miralax dvt prophylaxis- lovenox full code pt. requires continued inpt stay for management of acute diverticulitis receiving iv abx, and expert consultation Quality Stroke Does the patient have a stroke diagnosis?: No VTE Prior VTE?: No VTE Risk Level:: Medical - moderate - high VTE Device Contraindication: Treatment Not Indicated VTE Drug Contraindication: N/A - Med Ordered
--- NOTE | 2024-06-09 11:51 | PM.CNGS ---
History of Present Illness Consult details Consult date: 06/09/24 Narrative: 48 year old female admitted on 06/06/2024 to the hospitalist service because of abdominal pain. She has a long history of Crohn's disease involving the terminal ileum. She has known diverticular disease. She had a CAT scan showing suggestion of a stricture in the terminal ileum with mild thickening of the wall this area along with submucosal edema. There is no evidence of proximal obstruction. She also has a little bit of haziness in the sigmoid with a possible early or mild diverticulitis or colitis She is currently tolerating diet. She has been passing flatus and has good bowel movements. She has chronic pain however and has severe anxiety so evaluation of her pain level is a little complicated. She has had no fever. Her white count has gone down to normal. Review of Systems Constitutional: Constitutional: Denies chills and Denies fever(s) Cardiovascular: Cardiovascular: Denies chest pain and Denies dyspnea Respiratory: Respiratory: Denies cough and Denies dyspnea Gastrointestinal: Gastrointestinal: Reports constipation and Denies diarrhea Genitourinary: Genitourinary: Denies difficulty voiding PMFSH Past Medical History Medical History Clostridioides difficile carrier Renal calculus, bilateral Postcoital bleeding Major depression, recurrent, chronic Furuncle Diverticulitis Obesity (BMI 30-39.9) Crohn's colitis Crohns disease of small intestine Crohn's colitis Intractable nausea and vomiting Migraine History of renal cell cancer (~2014) Osteoarthritis of hips, bilateral Depression Crohn's disease Lumbar degenerative disc disease Insomnia Anxiety 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 Family History Family History Father Crohn disease Migraine Cancer Mother HTN (hypertension) Vertigo Cervical cancer Maternal Grandmother HTN (hypertension) Hyperlipidemia Diabetes mellitus Paternal Grandmother Diabetes mellitus Other Mental health problem Surgical History Surgical History Hx of colonoscopy History of esophagogastroduodenoscopy (EGD) History of removal of calculus of renal pelvis through percutaneous nephrostomy (~10/2015) History of cryosurgery (~04/20/15) History of intestinal surgery History of arthroplasty (~01/2012) Social History Social History Household Members: Family Housing: House Do you presently have visiting nurse or other home services: No Unable to assess alcohol history related to: Unable to respond Alcohol intake: current Alcohol intake frequency: holidays/special occasions only Patient Tobacco Use Status: Former Tobacco user Tobacco use type: Cigarette e-Cigarette/Vaping Use: Former Use Second Hand Smoke Exposure: No Substance Use Type: Marijuana Advance Directives Date on File: 06/15/22 service: No Current occupational status: unemployed Gender identity: Female Cognitive needs: No Hearing needs: No Vision needs: Yes (glasses) Meds Allergies Allergy/AdvReac Type Severity Reaction Status Date / Time meperidine [From Demerol] Allergy Severe SWELLING,RASH,THROAT Verified 06/06/24 07:36 CLOSES latex [LATEX] Allergy Mild RASH Verified 06/06/24 07:36 codeine [Codeine] AdvReac Intermediate NAUSEA/VOMITING, Verified 06/06/24 07:36 GI upset/vomiting duloxetine AdvReac Intermediate headaches Verified 06/06/24 07:36 trazodone AdvReac Mild Anxiety Verified 06/06/24 07:36 Fish Containing Products AdvReac Unknown NAUSEA/VOMI Verified 06/06/24 07:36 [Fish Product Derivatives] TING bupropion AdvReac Intermediate increased Uncoded 06/06/24 07:36 headaches Active Medications: Current Medications Acetaminophen (Acetaminophen 325 Mg Tablet) 650 mg PO Q6H PRN PRN Reason: Pain, Mild (Pain Scale 1-3), fever or headache Last Admin: 06/09/24 10:51 Dose: 650 mg Calcium Carbonate (Calcium Carbonate 750 Mg Tab.Chew) 750 mg PO Q4H PRN PRN Reason: Heartburn Cholestyramine Resin (Cholestyramine (With Sugar) 4 Gm Powd.Pack) 4 gm PO DAILY PRN PRN Reason: Diarrhea Clonidine HCl (Clonidine Hcl 0.1 Mg Tablet) 0.1 mg PO TID [facility]; Protocol Last Admin: 06/09/24 07:49 Dose: 0.1 mg Dicyclomine HCl (Dicyclomine Hcl 10 Mg Capsule) 10 mg PO QID [facility] Last Admin: 06/09/24 07:49 Dose: 10 mg Duloxetine HCl (Duloxetine Hcl 30 Mg Capsule.Dr) 30 mg PO BID [facility] Last Admin: 06/09/24 07:49 Dose: 30 mg Enoxaparin Sodium (Enoxaparin Sodium 40 Mg/0.4 Ml Syringe) 40 mg SUBCUT Q24H [facility] Last Admin: 06/08/24 17:23 Dose: 40 mg Metronidazole (Flagyl) 500 mg in 100 mls @ 100 mls/hr IV Q8H [facility] Last Admin: 06/09/24 11:39 Dose: 100 mls/hr Ceftriaxone Sodium 1 gm/ (Sodium Chloride) 50 mls @ 100 mls/hr IV Q24H [facility] Last Infusion: 06/09/24 11:24 Dose: Infused Lorazepam (Lorazepam 1 Mg Tablet) 1 mg PO TID [facility] Last Admin: 06/09/24 07:49 Dose: 1 mg Magnesium Hydroxide (Milk Of Magnesia 30 Ml Oral.Susp) 30 ml PO DAILY PRN PRN Reason: Constipation Last Admin: 06/07/24 23:36 Dose: 30 ml Melatonin (Melatonin 3 Mg Tablet) 6 mg PO BEDTIME PRN PRN Reason: Insomnia Mesalamine (Mesalamine 250 Mg Capsule.Er) 1,000 mg PO QID [facility] Last Admin: 06/09/24 07:48 Dose: 1,000 mg Metoclopramide HCl (Metoclopramide Hcl 10 Mg Tablet) 10 mg PO Q6H PRN PRN Reason: nausea and vomiting Last Admin: 06/09/24 07:48 Dose: 10 mg Non-Formulary Medication (Budesonide) 9 mg PO DAILY [facility] Omeprazole (Omeprazole 40 Mg Capsule.Dr) 40 mg PO DAILY@0630 [facility] Last Admin: 06/09/24 05:41 Dose: 40 mg Ondansetron HCl (Ondansetron Hcl 4 Mg/2 Ml Vial) 4 mg IVPUSH Q8H PRN PRN Reason: Nausea and Vomiting Last Admin: 06/09/24 02:40 Dose: 4 mg Oxycodone HCl (Oxycodone Hcl Immed Release 5 Mg Tablet) 5 mg PO Q6H PRN PRN Reason: Pain, Moderate(Pain Scale 4-6) Last Admin: 06/09/24 09:21 Dose: 5 mg Polyethylene Glycol (Polyethylene Glycol 3350 17 Gm Powd.Pack) 17 gm PO DAILY PRN PRN Reason: Constipation Sodium Chloride (0.9 % Sodium Chloride Flush 3 Ml Syringe) 3 ml IVFLUSH QSHIFT [facility] Last Admin: 06/09/24 07:49 Dose: 3 ml Sumatriptan Succinate (Sumatriptan Succinate 50 Mg Tablet) 50 mg PO DAILY MRX1 PRN PRN Reason: Migraine Headache Last Admin: 06/08/24 10:28 Dose: 50 mg Zolpidem Tartrate (Zolpidem Tartrate 5 Mg Tablet) 5 mg PO BEDTIME [facility] Last Admin: 06/08/24 20:56 Dose: 5 mg Home Medications ?Medication ?Instructions ?Recorded ?Confirmed ?Last Taken ?Type dicyclomine 10 mg capsule 10 - 20 mg PO QID [facility] 07/17/22 06/06/24 12/09/22 History Spasms Or Cramping vedolizumab 300 mg intravenous 300 mg IV Q4W 10/16/22 06/06/24 04/24/24 History solution (Entyvio) mesalamine 500 mg capsule,extended 1,000 mg PO QID 11/14/22 06/06/24 03/31/24 History release duloxetine 30 mg capsule,delayed 30 mg PO BID 04/01/24 06/06/24 03/31/24 History release omeprazole 40 mg capsule,delayed 40 mg PO DAILY 04/01/24 06/06/24 03/31/24 History release cholestyramine (with sugar) 4 gram 4 g PO DAILY PRN Diarrhea 04/02/24 06/06/24 Unknown History oral powder acetaminophen 500 mg tablet 1,000 mg PO DAILY PRN Pain 06/06/24 06/06/24 Unknown History clonidine HCl 0.1 mg tablet 0.1 mg PO TID for anxiety 06/06/24 06/06/24 Unknown History lorazepam 1 mg tablet 1 mg PO TID anxiety 06/06/24 06/06/24 Unknown History ondansetron HCl 4 mg tablet 4 mg PO Q6H PRN Nausea And Vomiting 06/06/24 06/06/24 Unknown History polyethylene glycol 3350 17 17 g PO DAILY PRN Constipation 06/06/24 06/06/24 06/05/24 History gram/dose oral powder (Miralax) zolpidem 12.5 mg tablet,extended 6.25 mg PO BEDTIME insomnia 06/06/24 06/06/24 Unknown History release,multiphase Physical Exam Vital Signs: Vital Signs: Last Vital Signs Temp 97.6 F 06/09/24 08:00 Pulse 61 06/09/24 08:00 Resp 16 06/09/24 08:00 BP 141/85 H 06/09/24 08:00 Pulse Ox 99 06/09/24 08:00 O2 Del Method Room Air 06/09/24 08:00 BMI result Body Mass Index 27.5 Const: Other: Appears anxious, ambulating General: no acute distress Resp: Effort & Inspection: normal respiratory effort Cardio: Rate: regular rate GI: Palpation (GI): Soft to palpation, not firm, Tenderness to palpation present (GI) (Mild tenderness in the left lower quadrant) and no guarding Results Labs 06/12/24 05:45 06/12/24 05:45 Labs: All other labs normal. Imaging Abdomen CT scan report/results: report reviewed and image reviewed CT scan - pelvis: report reviewed and image reviewed Additional studies: Laboratory Results WBC 8.2 X10*3/uL (4.8-10.8) 06/07/24 05:49 RBC 3.83 X10*6/uL (4.20-5.50) L 06/07/24 05:49 Hgb 11.6 g/dl (12.0-16.0) L 06/07/24 05:49 Hct 35.7 % (37.0-47.0) L 06/07/24 05:49 MCV 93.2 fL (80.0-98.0) 06/07/24 05:49 MCH 30.3 pg (27.0-33.0) 06/07/24 05:49 MCHC 32.5 g/dl (31.0-35.0) 06/07/24 05:49 RDW 14.4 % (11.0-16.0) 06/07/24 05:49 Plt Count 265 X10*3/uL (160-400) 06/07/24 05:49 MPV 10.3 fL (9.4-12.3) 06/07/24 05:49 Immature Gran % (Auto) 1.1 % (0.0-0.4) H 06/07/24 05:49 Neut % (Auto) 87.2 % (45-73) H 06/07/24 05:49 Lymph % (Auto) 6.9 % (20-40) L 06/07/24 05:49 [place] % (Auto) 4.7 % (2-11) 06/07/24 05:49 Eos % (Auto) 0.0 % (0-4) 06/07/24 05:49 Baso % (Auto) 0.1 % (0-2) 06/07/24 05:49 Lymph # (Auto) 0.6 X10*3/uL (1.2-4.9) L 06/07/24 05:49 [place] # (Auto) 0.4 X10*3/uL (0.1-1.2) 06/07/24 05:49 Eos # (Auto) 0.0 X10*3/uL (0.0-0.4) 06/07/24 05:49 Baso # (Auto) 0.0 X10*3/uL (0.0-0.2) 06/07/24 05:49 Abs Immat Gran (auto) 0.09 X10*3/uL (0.00-0.03) H 06/07/24 05:49 Absolute Neuts (auto) 7.2 x10*3/uL (2.0-8.3) 06/07/24 05:49 Absolute Nucleated RBC 0.000 X10*3/uL (0.0-0.012) 06/07/24 05:49 Nucleated RBC % (auto) 0.0 /100WBC (0.0-0.2) 06/07/24 05:49 ESR 19 MM/HR (0-20) 06/06/24 07:47 Sodium 140 mmol/L (135-145) 06/08/24 07:01 Potassium 3.9 mmol/L (3.3-5.1) 06/08/24 07:01 Chloride 109 mmol/L (96-108) H 06/08/24 07:01 Carbon Dioxide 22 mmol/L (22-29) 06/08/24 07:01 Anion Gap 13 (12-20) 06/08/24 07:01 BUN 9 mg/dL (9-16) 06/08/24 07:01 Creatinine 0.67 mg/dL (0.5-1.4) 06/08/24 07:01 Estim Creat Clear Calc 93.0 06/08/24 07:01 Estimated GFR > 60 06/08/24 07:01 Random Glucose 121 mg/dL (60-115) H 06/08/24 07:01 Calcium 9.2 mg/dL (8.4-10.2) 06/08/24 07:01 Total Bilirubin 0.2 mg/dL (0.0-1.0) 06/06/24 07:47 AST 16 U/L (5-31) 06/06/24 07:47 ALT 17 U/L (0-31) 06/06/24 07:47 Alkaline Phosphatase 90 U/L (39-117) 06/06/24 07:47 Troponin I High Sens < 2.7 ng/L (<3.5-17.0) 06/06/24 07:47 C-Reactive Protein 0.92 mg/dL (< or = 0.50) H 06/06/24 07:47 Total Protein 6.8 g/dL (6.5-8.0) 06/06/24 07:47 Albumin 3.8 g/dL (3.5-5.0) 06/06/24 07:47 Lipase 16 U/L (8-78) 06/06/24 07:47 Stool Occult Blood POSITIVE (NEGATIVE) 06/06/24 08:15 C. difficile Tox B Gene Cancelled 06/06/24 19:05 Influenza Type A (PCR) NEGATIVE (Negative) 06/06/24 07:47 Influenza Type B (PCR) NEGATIVE (Negative) 06/06/24 07:47 RSV RNA Qual (PCR) NEGATIVE (Negative) 06/06/24 07:47 SARS-CoV-2 RNA (RT-PCR) NEGATIVE (Negative) 06/06/24 07:47 Cancelled Test SEE NOTE 06/06/24 19:12 Impressions Abdomen/Pelvis CT 06/06/24 09:25 IMPRESSION: 1. Mild wall thickening and stratified enhancement with submucosal edema involving the terminal ileum and distal ileum most consistent with active inflammatory bowel disease in this patient with a history of Crohn's. Evaluation of stricture is limited in the absence of oral contrast, however no significant upstream disproportional dilatation is seen to suspect a high-grade small bowel obstruction. 2. Colonic diverticulosis with short segment of trace pericolonic fatty haziness in the distal descending colon suggesting mild acute diverticulitis, less likely acute colitis in the proper clinical content. 3. Small hiatal hernia. 4. A heterogeneous cortical lesion in the posterior aspect of the interpolar right kidney demonstrates gradual increase in size over time, underlying slow-growing neoplasm is not excluded. Recommend further evaluation with outpatient dynamic abdominal MRI with and without intravenous contrast. Assessment and Plan (1) Exacerbation of Crohn's disease: Status: Resolved Plan She states that she came in because of left lower quadrant pain. Reviewed her imaging studies. There is note of some very mild changes in the area of the sigmoid that may represent early diverticulitis or colitis. She also has chronic changes in the terminal ileum. She currently does not appear to be obstructed. She has good bowel movements. She is tolerating diet Her abdominal exam is very benign. She has levels of anxiety and evaluation of her pain level is complicated. However, objective signs and symptoms point to very benign course at this time. She may benefit from Colace because of chronic complaints of constipation. She is being followed closely by Dr. Alexis of GI. Procedures Date of Service Date of Service: 06/16/24
[2024-06-09] MEDS: SUMAtriptan succinate 50 MG TABLET PO (12:58)
[2024-06-09] MEDS: Enoxaparin Sodium 40 MG/0.4 ML SYRINGE SUBCUT (15:09)
[2024-06-09] MEDS: Zolpidem Tartrate 5 MG TABLET PO (20:42)
[2024-06-10 01:30] VITALS: RESP 18
[2024-06-10] MEDS: oxyCODONE HCl Immed Release 5 MG TABLET PO ×4 (02:20→20:41)
[2024-06-10] MEDS: Acetaminophen 325 MG TABLET 650 MG PO ×3 (02:20→20:42)
[2024-06-10] MEDS: metroNIDAZOLE/NS 500 MG/100 ML PIGGYBACK 100 MG IV (02:21)
[2024-06-10] MEDS: Metoclopramide HCl 10 MG TABLET PO ×2 (02:21→11:42)
[2024-06-10 04:00] VITALS: BP 158/78; PULSE 60; RESP 16; TEMP 36; O2SAT 98
[2024-06-10] MEDS: Omeprazole 40 MG CAPSULE.DR PO (05:44)
[2024-06-10 07:43] VITALS: BP 142/78; PULSE 63; RESP 18; TEMP 36.2; O2SAT 97
[2024-06-10] MEDS: Mesalamine 250 MG CAPSULE.ER 1000 MG PO ×4 (08:15→20:41)
[2024-06-10] MEDS: DULoxetine HCl 30 MG CAPSULE.DR PO ×2 (08:28→20:40)
[2024-06-10] MEDS: ondansetron HCL 4 MG/2 ML VIAL IVPUSH ×2 (08:28→19:52)
[2024-06-10] MEDS: cloNIDine HCL 0.1 MG TABLET PO ×3 (08:28→20:41)
[2024-06-10] MEDS: Dicyclomine HCl 10 MG CAPSULE PO ×4 (08:28→20:40)
[2024-06-10] MEDS: LORazepam 1 MG TABLET PO ×3 (08:28→20:40)
[2024-06-10] MEDS: 0.9 % Sodium Chloride Flush 3 ML SYRINGE IVFLUSH ×3 (08:31→19:51)
[2024-06-10] MEDS: metroNIDAZOLE 500 MG TABLET PO ×3 (09:04→20:40)
--- NOTE | 2024-06-10 09:53 | MHC.CLN ---
F/U DIET=LACTOSE CONTROLLED, BLAND DIET. ENSURE CLEAR BID TO PROMOTE NUTRITIONAL INTAKE. SUPPLEMENT PROVIDES 480 KCALS, 16 G PROTEIN. SIGNIFICANT WEIGHT LOSS X 6 MONTHS DUE TO EXACERBATION OF CROHN'S AND DECREASED INTAKE. TOLERATING DIET WITH SOME NAUSEA. PO X 2 DAYS 50-100%. FOLLOW FOR INTAKE AND DIET TOLERANCE.
[2024-06-10] MEDS: cefTRIAXone sodium 1 GM in 0.9 % Sodium Chloride 50 ML IV (10:34)
[2024-06-10] MEDS: SUMAtriptan succinate 50 MG TABLET PO (10:39)
--- NOTE | 2024-06-10 10:47 | MHC.CM.PN ---
Addendum entered by Yue Alcantara RN 06/10/24 13:40: Per MD patient will not dc today. Original Note: Per MD rounds paitent medically cleared for dc home self care. IMM delivered. Boyfriend will provide transport.
--- NOTE | 2024-06-10 12:40 | HO.PM.IMPN ---
Subjective Subjective Date of Service: 06/10/24 Interval History: Being followed for mild acute diverticulitis. Still has some pain but not as bad, have soft BMs, not diarrhea, no blood Review of Systems All other system reviewed and are negative. Physical Exam Vital Signs: Vital Signs: Last Vital Signs Temp 97.1 F 06/10/24 07:43 Pulse 63 06/10/24 07:43 Resp 18 06/10/24 07:43 BP 142/78 H 06/10/24 07:43 Pulse Ox 97 06/10/24 07:43 O2 Del Method Room Air 06/10/24 07:43 BMI result Body Mass Index 27.5 Const: Other: Gen: Awake alert x3, less anxious than yesterday, HEENT: sclera anicteric, moist mucus membranes Neck: supple Lungs: clear to auscultation bilaterally Heart: regular rate and rhythm, no murmurs Abd: soft, neglieable tenderness ,no rigidity, no guarding, bowel sounds audible Ext: no edema Skin: warm/well-perfused Neuro: alert and oriented x3, no focal findings Psych: Anxious Objective Data Active Medications Acetaminophen (Acetaminophen 325 Mg Tablet) 650 mg PO Q6H PRN PRN Reason: Pain, Mild (Pain Scale 1-3), fever or headache Last Admin: 06/10/24 02:20 Dose: 650 mg Documented By: REED Calcium Carbonate (Calcium Carbonate 750 Mg Tab.Chew) 750 mg PO Q4H PRN PRN Reason: Heartburn Cholestyramine Resin (Cholestyramine (With Sugar) 4 Gm Powd.Pack) 4 gm PO DAILY PRN PRN Reason: Diarrhea Clonidine HCl (Clonidine Hcl 0.1 Mg Tablet) 0.1 mg PO TID [facility]; Protocol Last Admin: 06/10/24 08:28 Dose: 0.1 mg Documented By: SOCRATES Dicyclomine HCl (Dicyclomine Hcl 10 Mg Capsule) 10 mg PO QID [facility] Last Admin: 06/10/24 08:28 Dose: 10 mg Documented By: SOCRATES Duloxetine HCl (Duloxetine Hcl 30 Mg Capsule.) 30 mg PO BID [facility] Last Admin: 06/10/24 08:28 Dose: 30 mg Documented By: SOCRATES Enoxaparin Sodium (Enoxaparin Sodium 40 Mg/0.4 Ml Syringe) 40 mg SUBCUT Q24H [facility] Last Admin: 06/09/24 15:09 Dose: 40 mg Documented By: IAIN Ceftriaxone Sodium 1 gm/ (Sodium Chloride) 50 mls @ 100 mls/hr IV Q24H [facility] Last Infusion: 06/10/24 11:09 Dose: Infused Documented By: SOCRATES Lorazepam (Lorazepam 1 Mg Tablet) 1 mg PO TID [facility] Last Admin: 06/10/24 08:28 Dose: 1 mg Documented By: SOCRATES Magnesium Hydroxide (Milk Of Magnesia 30 Ml Oral.Susp) 30 ml PO DAILY PRN PRN Reason: Constipation Last Admin: 06/07/24 23:36 Dose: 30 ml Documented By: REED Melatonin (Melatonin 3 Mg Tablet) 6 mg PO BEDTIME PRN PRN Reason: Insomnia Mesalamine (Mesalamine 250 Mg Capsule.Er) 1,000 mg PO QID [facility] Last Admin: 06/10/24 08:15 Dose: 1,000 mg Documented By: SOCRATES Metoclopramide HCl (Metoclopramide Hcl 10 Mg Tablet) 10 mg PO Q6H PRN PRN Reason: nausea and vomiting Last Admin: 06/10/24 11:42 Dose: 10 mg Documented By: SOCRATES Metronidazole (Metronidazole 500 Mg Tablet) 500 mg PO TID [facility] Last Admin: 06/10/24 09:04 Dose: 500 mg Documented By: SOCRATES Non-Formulary Medication (Budesonide) 9 mg PO DAILY [facility] Omeprazole (Omeprazole 40 Mg Capsule.Dr) 40 mg PO DAILY@0630 [facility] Last Admin: 06/10/24 05:44 Dose: 40 mg Documented By: REED Ondansetron HCl (Ondansetron Hcl 4 Mg/2 Ml Vial) 4 mg IVPUSH Q8H PRN PRN Reason: Nausea and Vomiting Last Admin: 06/10/24 08:28 Dose: 4 mg Documented By: SOCRATES Oxycodone HCl (Oxycodone Hcl Immed Release 5 Mg Tablet) 5 mg PO Q6H PRN PRN Reason: Pain, Moderate(Pain Scale 4-6) Last Admin: 06/10/24 08:14 Dose: 5 mg Documented By: SOCRATES Polyethylene Glycol (Polyethylene Glycol 3350 17 Gm Powd.Pack) 17 gm PO DAILY PRN PRN Reason: Constipation Sodium Chloride (0.9 % Sodium Chloride Flush 3 Ml Syringe) 3 ml IVFLUSH QSHIFT [facility] Last Admin: 06/10/24 08:31 Dose: 3 ml Documented By: SOCRATES Sumatriptan Succinate (Sumatriptan Succinate 50 Mg Tablet) 50 mg PO DAILY MRX1 PRN PRN Reason: Migraine Headache Last Admin: 06/10/24 10:39 Dose: 50 mg Documented By: SOCRATES Zolpidem Tartrate (Zolpidem Tartrate 5 Mg Tablet) 5 mg PO BEDTIME [facility] Last Admin: 06/09/24 20:42 Dose: 5 mg Documented By: REED Labs 06/07/24 05:49 06/08/24 07:01 Assessment and Plan (1) Exacerbation of Crohn's disease: Status: Resolved Plan 48-year-old female with history of anxiety, Crohn's disease, 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's disease, chronic CDiff carrier, history of diverticulitis, depression, history of renal cell carcinoma, lumbar degenerative disc disease, migraine, bilateral osteoarthritis of the hips admitted for acute crohns flare with diverticulitis #Abdominal pain with mild acute sigmoid diverticulitis -complaining of some left lower quadrant abdominal pain, but better, tolerating diet, no nausea, no vomiting, no diarrhea -CT abdomen/pelvis shows mild wall thickening and stratified enhancement with submucosal edema involving the terminal ileum and distal ileum most consistent with active inflammatory bowel disease. No SBO.There is also evidence of possible mild acute diverticulitis versus acute colitis -WBC normalized, CRP 0.92, ESR 19 Tachypnea due to anxiety/pain (resolved), no sepsis/severe sepsis -on IV ctx and flagyl (initiated 06/06) will transition to by mouth Ceftin and Flagyl for discharge for toal of 10 days -seen by Dr. Alexis he recommend to DC steroids since no definite signs of active Crohn's flare Seen by Dr. Milan he recommend above managment, and outpatient follow up..if continues to have flares will need colectomy #Depression/anxiety -continue duloxetine and Ativan scheduled and as needed, reviewed old records patient has been tried on multiple anxiolytics, is being followed closely by therapist and psychiatrist as outpatient. Support provided #GERD -continue ppi # Cortical lesion in posterior aspect of the interpolar right kidney demonstrated gradual increase in size over time, underlying slow growing neoplasm is not excluded, outpatient dynamic abdominal MRI with and without intravenous contrast recommended/patient has history of renal cell carcinoma. # hypertension few high blood pressure readings likely due to anxiety #Constipation -resolved, continue miralax dvt prophylaxis- lovenox full code pt. requires continued inpt stay for management of acute diverticulitis receiving iv abx, and expert consultation Quality Stroke Does the patient have a stroke diagnosis?: No VTE Prior VTE?: No VTE Risk Level:: Medical - moderate - high VTE Device Contraindication: Treatment Not Indicated VTE Drug Contraindication: N/A - Med Ordered
[2024-06-10 15:38] VITALS: BP 154/71; PULSE 62; RESP 18; TEMP 36.2; O2SAT 98
[2024-06-10] MEDS: Enoxaparin Sodium 40 MG/0.4 ML SYRINGE SUBCUT (16:32)
--- NOTE | 2024-06-10 16:40 | PC.NURSE ---
Pt complaining of swollen feet. Bi feet +1. She said started noticing it yesterday in her L foot. Now it appears both are +1 edema. have Pt elevating extremities. made aware @ 16:40
[2024-06-10 19:28] VITALS: BP 136/86; PULSE 68; RESP 18; TEMP 36.6; O2SAT 99
[2024-06-10] MEDS: Zolpidem Tartrate 5 MG TABLET PO (20:40)
[2024-06-10 20:41] VITALS: BP 136/86
[2024-06-11 02:48] VITALS: BP 158/84; PULSE 91; RESP 18; TEMP 36.1; O2SAT 97
[2024-06-11] MEDS: Prochlorperazine Edisylate 10 MG/2 ML VIAL 5 MG IVPUSH ×3 (03:19→21:27)
[2024-06-11] MEDS: Acetaminophen 325 MG TABLET 650 MG PO ×2 (03:34→11:44)
[2024-06-11] MEDS: oxyCODONE HCl Immed Release 5 MG TABLET PO ×3 (03:35→21:40)
[2024-06-11 07:56] VITALS: BP 161/77; PULSE 91; RESP 14; TEMP 36.1; O2SAT 99
[2024-06-11 09:21] VITALS: BP 178/96
[2024-06-11] MEDS: Dicyclomine HCl 10 MG CAPSULE PO ×4 (09:21→21:38)
[2024-06-11] MEDS: DULoxetine HCl 30 MG CAPSULE.DR PO ×2 (09:21→21:38)
[2024-06-11] MEDS: LORazepam 1 MG TABLET PO ×3 (09:21→21:38)
[2024-06-11] MEDS: Mesalamine 250 MG CAPSULE.ER 1000 MG PO ×4 (09:21→21:37)
[2024-06-11] MEDS: metroNIDAZOLE 500 MG TABLET PO ×3 (09:21→21:38)
[2024-06-11] MEDS: cloNIDine HCL 0.1 MG TABLET PO ×3 (09:21→21:39)
[2024-06-11] MEDS: cefTRIAXone sodium 1 GM in 0.9 % Sodium Chloride 50 ML IV (11:44)
--- NOTE | 2024-06-11 11:49 | PC.NURSE ---
PRN tylenol 650 mg given for 6/10 pain at pt request.
--- NOTE | 2024-06-11 15:13 | HO.PM.IMPN ---
Subjective Subjective Date of Service: 06/11/24 Interval History: seen and evaluated this morning reporting nausea and started to have diarrhea no other overnight events Review of Systems Review of Systems: Yes all other systems are reviewed and are negative Physical Exam Vital Signs: Vital Signs: Last Vital Signs Temp 96.9 F 06/11/24 07:56 Pulse 91 06/11/24 07:56 Resp 14 06/11/24 07:56 BP 178/96 H 06/11/24 09:21 Pulse Ox 99 06/11/24 07:56 O2 Del Method Room Air 06/11/24 07:56 BMI result Body Mass Index 27.5 Const: Other: Gen: Awake alert x3, anxious Lungs: clear to auscultation bilaterally, no crackles Heart: regular rate and rhythm, no murmurs Abd: soft, no significant tenderness ,no guarding, bowel sounds audible Ext: no edema Skin: warm/well-perfused Neuro: alert and oriented x3, no focal findings Psych: Anxious Objective Data Active Medications Acetaminophen (Acetaminophen 325 Mg Tablet) 650 mg PO Q6H PRN PRN Reason: Pain, Mild (Pain Scale 1-3), fever or headache Last Admin: 06/11/24 11:44 Dose: 650 mg Documented By: CHIKIS Calcium Carbonate (Calcium Carbonate 750 Mg Tab.Chew) 750 mg PO Q4H PRN PRN Reason: Heartburn Cholestyramine Resin (Cholestyramine (With Sugar) 4 Gm Powd.Pack) 4 gm PO DAILY PRN PRN Reason: Diarrhea Clonidine HCl (Clonidine Hcl 0.1 Mg Tablet) 0.1 mg PO TID [facility]; Protocol Last Admin: 06/11/24 09:21 Dose: 0.1 mg Documented By: CHIKIS Dicyclomine HCl (Dicyclomine Hcl 10 Mg Capsule) 10 mg PO QID [facility] Last Admin: 06/11/24 13:43 Dose: 10 mg Documented By: CHIKIS Duloxetine HCl (Duloxetine Hcl 30 Mg Capsule.) 30 mg PO BID [facility] Last Admin: 06/11/24 09:21 Dose: 30 mg Documented By: CHIKIS Enoxaparin Sodium (Enoxaparin Sodium 40 Mg/0.4 Ml Syringe) 40 mg SUBCUT Q24H [facility] Last Admin: 06/10/24 16:32 Dose: 40 mg Documented By: SOCRATES Ceftriaxone Sodium 1 gm/ (Sodium Chloride) 50 mls @ 100 mls/hr IV Q24H [facility] Last Infusion: 06/11/24 13:49 Dose: Infused Documented By: CHIKIS Lorazepam (Lorazepam 1 Mg Tablet) 1 mg PO TID [facility] Last Admin: 06/11/24 09:21 Dose: 1 mg Documented By: CHIKIS Magnesium Hydroxide (Milk Of Magnesia 30 Ml Oral.Susp) 30 ml PO DAILY PRN PRN Reason: Constipation Last Admin: 06/07/24 23:36 Dose: 30 ml Documented By: REED Melatonin (Melatonin 3 Mg Tablet) 6 mg PO BEDTIME PRN PRN Reason: Insomnia Mesalamine (Mesalamine 250 Mg Capsule.Er) 1,000 mg PO QID [facility] Last Admin: 06/11/24 13:43 Dose: 1,000 mg Documented By: CHIKIS Metronidazole (Metronidazole 500 Mg Tablet) 500 mg PO TID [facility] Last Admin: 06/11/24 09:21 Dose: 500 mg Documented By: CHIKIS Non-Formulary Medication (Budesonide) 9 mg PO DAILY [facility] Omeprazole (Omeprazole 40 Mg Capsule.Dr) 40 mg PO DAILY@0630 [facility] Last Admin: 06/11/24 08:48 Dose: Not Given Documented By: CHIKIS Non-Admin Reason: Nausea Ondansetron HCl (Ondansetron Hcl 4 Mg/2 Ml Vial) 4 mg IVPUSH Q8H PRN PRN Reason: Nausea and Vomiting Last Admin: 06/10/24 19:52 Dose: 4 mg Documented By: AIDEN Oxycodone HCl (Oxycodone Hcl Immed Release 5 Mg Tablet) 5 mg PO Q6H PRN PRN Reason: Pain, Moderate(Pain Scale 4-6) Last Admin: 06/11/24 11:44 Dose: 5 mg Documented By: CHIKIS Polyethylene Glycol (Polyethylene Glycol 3350 17 Gm Powd.Pack) 17 gm PO DAILY PRN PRN Reason: Constipation Prochlorperazine Edisylate (Prochlorperazine Edisylate 10 Mg/2 Ml Vial) 5 mg IVPUSH Q4H PRN PRN Reason: Nausea and Vomiting Last Admin: 06/11/24 08:17 Dose: 5 mg Documented By: CHIKIS Sodium Chloride (0.9 % Sodium Chloride Flush 3 Ml Syringe) 3 ml IVFLUSH QSHIFT [facility] Last Admin: 06/11/24 08:48 Dose: Not Given Documented By: CHIKIS Non-Admin Reason: Previously Administered Sumatriptan Succinate (Sumatriptan Succinate 50 Mg Tablet) 50 mg PO DAILY MRX1 PRN PRN Reason: Migraine Headache Last Admin: 06/10/24 10:39 Dose: 50 mg Documented By: SOCRATES Zolpidem Tartrate (Zolpidem Tartrate 5 Mg Tablet) 5 mg PO BEDTIME [facility] Last Admin: 06/10/24 20:40 Dose: 5 mg Documented By: AIDEN Labs 06/07/24 05:49 06/08/24 07:01 Assessment and Plan (1) Diverticulitis: Status: Acute Plan 48-year-old female with history of anxiety, Crohn's disease, 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's disease, chronic CDiff carrier, history of diverticulitis, depression, history of renal cell carcinoma, lumbar degenerative disc disease, migraine, bilateral osteoarthritis of the hips admitted for acute crohns flare with diverticulitis # Acute sigmoid diverticulitis LLQ pain with diarrhea CT abdomen/pelvis shows mild wall thickening and stratified enhancement with submucosal edema involving the terminal ileum and distal ileum most consistent with active inflammatory bowel disease. No SBO.There is also evidence of possible mild acute diverticulitis versus acute colitis Stool CDiff and WBCs pending Continue IV ctx and flagyl (initiated 06/06) will transition to by mouth Ceftin and Flagyl for discharge for total of [address] Alexis he recommend to DC steroids since no definite signs of active Crohn's flare Dr. Milan he recommend outpatient follow up..if continues to have flares will need colectomy #Depression/anxiety continue duloxetine and Ativan scheduled and as needed, reviewed old records patient has been tried on multiple anxiolytics, is being followed closely by therapist and psychiatrist as outpatient. Support provided #GERD continue ppi # Cortical lesion in posterior aspect of the interpolar right kidney demonstrated gradual increase in size over time, underlying slow growing neoplasm is not excluded, outpatient dynamic abdominal MRI with and without intravenous contrast recommended/patient has history of renal cell carcinoma. # hypertension few high blood pressure readings likely due to anxiety #Constipation resolved, continue miralax dvt prophylaxis- lovenox full code requires continued inpt stay for management of acute diverticulitis receiving iv abx, and clinical resoltuion of nausea and diarrhea pending C.Diff testing Quality Stroke Does the patient have a stroke diagnosis?: No VTE Prior VTE?: No VTE Risk Level:: Medical - moderate - high VTE Device Contraindication: Treatment Not Indicated VTE Drug Contraindication: N/A - Med Ordered
[2024-06-11 15:30] VITALS: BP 131/71; PULSE 62; RESP 12; TEMP 36.3; O2SAT 97
[2024-06-11] MEDS: 0.9 % Sodium Chloride Flush 3 ML SYRINGE IVFLUSH ×2 (15:56→21:29)
[2024-06-11] MEDS: ondansetron HCL 4 MG/2 ML VIAL IVPUSH (15:56)
[2024-06-11 16:09] LABS: Leukocytes Stool Qualitative NEGATIVE (NEGATIVE)
[2024-06-11] MEDS: Enoxaparin Sodium 40 MG/0.4 ML SYRINGE SUBCUT (17:12)
--- NOTE | 2024-06-11 18:20 | PM.EVENT ---
Event Note Date of Service: 06/11/24 Event Note: GI Followup-Course noted Patient continues with multiple abdominal and GI complaints in the setting of an underlying history of Crohn's and diverticulitis, and an overlying anxiety/depression. This all makes for a difficult diagnostic and treatment dilemma. Her symptoms seem to be out of proportion to the objective findings on her labs and imaging studies. Her recent Entyvio trough level came back in a high therapeutic range after nearly 6 weeks without an infusion. Her next scheduled infusion is next week. For now, in the hopes of getting her to the point of being discharged so she can receive her Entyvio infusion on time, I would recommend changing her to po antibiotics and restarting steroids with po prednisone along with the stoppage of the budesonide. I would continue symptomatic treatment with the antispasmodic and antidiarrheal agents as well. I will order a fecal calprotectin level for further objective evaluation of her symptoms re: ? of active colitis. She will follow up with me in the office as well. Thanks Time Spent With Patient Time: Total time managing care of this patient today ____ minutes.
[2024-06-11 19:43] VITALS: BP 135/67; PULSE 74; RESP 18; TEMP 36.1; O2SAT 98
[2024-06-11] MEDS: predniSONE 20 MG TABLET 40 MG PO (21:37)
[2024-06-11 21:39] VITALS: BP 135/67
[2024-06-11] MEDS: Zolpidem Tartrate 5 MG TABLET PO (21:39)
[2024-06-12 03:14] VITALS: BP 160/81; PULSE 78; RESP 16; TEMP 36.1; O2SAT 98
[2024-06-12] MEDS: Prochlorperazine Edisylate 10 MG/2 ML VIAL 5 MG IVPUSH (06:13)
[2024-06-12] MEDS: Omeprazole 40 MG CAPSULE.DR PO (06:17)
[2024-06-12] MEDS: oxyCODONE HCl Immed Release 5 MG TABLET PO ×2 (06:17→13:56)
[2024-06-12 06:35] LABS: Hematocrit 38.4 % (37.0-47.0); Hemoglobin 12.9 g/dl (12.0-16.0); Mean Corpuscular HGB Conc 33.6 g/dl (31.0-35.0); Mean Corpuscular Hemoglobin 30.7 pg (27.0-33.0); Mean Corpuscular Volume 91.4 fL (80.0-98.0); Mean Platelet Volume 10.1 fL (9.4-12.3); Platelet Count 309 X10*3/uL (160-400); Red Cell Distribution Width 13.9 % (11.0-16.0); White Blood Count 6.7 X10*3/uL (4.8-10.8)
[2024-06-12 06:42] LABS: Anion Gap 13 (12-20); Blood Urea Nitrogen 5 mg/dL (9-16); Calcium 9.5 mg/dL (8.4-10.2); Carbon Dioxide 25 mmol/L (22-29); Chloride 105 mmol/L (96-108); Creatinine Clr Calc Pharmacy 95.8; Estimated Glomerular Filt Rate > 60; Glucose Random 133 mg/dL (60-115); Potassium 3.4 mmol/L (3.3-5.1); Sodium 140 mmol/L (135-145)
[2024-06-12 08:00] VITALS: BP 157/80; PULSE 80; RESP 18; TEMP 36.6; O2SAT 98
[2024-06-12] MEDS: metroNIDAZOLE 500 MG TABLET PO (08:35)
[2024-06-12] MEDS: Mesalamine 250 MG CAPSULE.ER 1000 MG PO ×2 (08:35→13:46)
[2024-06-12] MEDS: Dicyclomine HCl 10 MG CAPSULE PO ×2 (08:35→13:46)
[2024-06-12] MEDS: predniSONE 20 MG TABLET 40 MG PO (08:35)
[2024-06-12] MEDS: DULoxetine HCl 30 MG CAPSULE.DR PO (08:35)
[2024-06-12] MEDS: LORazepam 1 MG TABLET PO (08:36)
[2024-06-12] MEDS: cloNIDine HCL 0.1 MG TABLET PO (08:36)
[2024-06-12] MEDS: 0.9 % Sodium Chloride Flush 3 ML SYRINGE IVFLUSH (08:41)
--- NOTE | 2024-06-12 09:55 | MHC.CLN ---
F/U DIET=LACTOSE CONTROLLED, BLAND, LOW FIBER. ENSURE CLEAR BID TO PROMOTE NUTRITIONAL INTAKE. SUPPLEMENT PROVIDES 480 KCALS, 16 G PROTEIN. REPORTS OF ABDOMINAL PAIN AND NAUSEA. VARIABLE INTAKE, 50-100%. FOLLOW FOR INTAKE AND DIET TOLERANCE.
[2024-06-12 10:28] LABS: CDiff Gene PCR POSITIVE (Negative)
--- NOTE | 2024-06-12 10:59 | MHC.CM.PN ---
Per MD rounds patient is medically cleared for dc home self care. S.O. will provide transport this afternoon. RN aware. Last IMM 06/10.
--- NOTE | 2024-06-12 11:12 | P.PNGS_ITS ---
Subjective Subjective Date of Service: 06/12/24 Interval history: Feels better Says she is ready to go home Tolerating diet well Still has complaints of abdominal pain but she says this is her baseline Physical Exam 2 Vital Signs: Vital Signs: Last Vital Signs Temp 97.8 F 06/12/24 08:00 Pulse 80 06/12/24 08:00 Resp 18 06/12/24 08:00 BP 157/80 H 06/12/24 08:00 Pulse Ox 98 06/12/24 08:00 O2 Del Method Room Air 06/12/24 08:00 BMI result Body Mass Index 27.5 Const: Other: Looks well General: comfortable and no acute distress Resp: Effort & Inspection: normal respiratory effort Cardio: Rate: regular rate GI: Palpation (GI): Soft to palpation, not firm and no guarding Objective Data Active Medications Acetaminophen (Acetaminophen 325 Mg Tablet) 650 mg PO Q6H PRN PRN Reason: Pain, Mild (Pain Scale 1-3), fever or headache Last Admin: 06/11/24 11:44 Dose: 650 mg Documented By: CHIKIS Calcium Carbonate (Calcium Carbonate 750 Mg Tab.Chew) 750 mg PO Q4H PRN PRN Reason: Heartburn Cholestyramine Resin (Cholestyramine (With Sugar) 4 Gm Powd.Pack) 4 gm PO DAILY PRN PRN Reason: Diarrhea Clonidine HCl (Clonidine Hcl 0.1 Mg Tablet) 0.1 mg PO TID [facility]; Protocol Last Admin: 06/12/24 08:36 Dose: 0.1 mg Documented By: CHIKIS Dicyclomine HCl (Dicyclomine Hcl 10 Mg Capsule) 10 mg PO QID [facility] Last Admin: 06/12/24 08:35 Dose: 10 mg Documented By: CHIKIS Duloxetine HCl (Duloxetine Hcl 30 Mg Capsule.Dr) 30 mg PO BID [facility] Last Admin: 06/12/24 08:35 Dose: 30 mg Documented By: CHIKIS Enoxaparin Sodium (Enoxaparin Sodium 40 Mg/0.4 Ml Syringe) 40 mg SUBCUT Q24H [facility] Last Admin: 06/11/24 17:12 Dose: 40 mg Documented By: CHIKIS Ceftriaxone Sodium 1 gm/ (Sodium Chloride) 50 mls @ 100 mls/hr IV Q24H [facility] Last Infusion: 06/11/24 13:49 Dose: Infused Documented By: CHIKIS Loperamide HCl (Loperamide Hcl 2 Mg Capsule) 4 mg PO Q4H PRN PRN Reason: Diarrhea Lorazepam (Lorazepam 1 Mg Tablet) 1 mg PO TID [facility] Last Admin: 06/12/24 08:36 Dose: 1 mg Documented By: CHIKIS Magnesium Hydroxide (Milk Of Magnesia 30 Ml Oral.Susp) 30 ml PO DAILY PRN PRN Reason: Constipation Last Admin: 06/07/24 23:36 Dose: 30 ml Documented By: REED Melatonin (Melatonin 3 Mg Tablet) 6 mg PO BEDTIME PRN PRN Reason: Insomnia Mesalamine (Mesalamine 250 Mg Capsule.Er) 1,000 mg PO QID [facility] Last Admin: 06/12/24 08:35 Dose: 1,000 mg Documented By: CHIKIS Metronidazole (Metronidazole 500 Mg Tablet) 500 mg PO TID [facility] Last Admin: 06/12/24 08:35 Dose: 500 mg Documented By: CHIKIS Omeprazole (Omeprazole 40 Mg Capsule.Dr) 40 mg PO DAILY@0630 [facility] Last Admin: 06/12/24 06:17 Dose: 40 mg Documented By: AIDEN Ondansetron HCl (Ondansetron Hcl 4 Mg/2 Ml Vial) 4 mg IVPUSH Q8H PRN PRN Reason: Nausea and Vomiting Last Admin: 06/11/24 15:56 Dose: 4 mg Documented By: CHIKIS Oxycodone HCl (Oxycodone Hcl Immed Release 5 Mg Tablet) 5 mg PO Q6H PRN PRN Reason: Pain, Moderate(Pain Scale 4-6) Last Admin: 06/12/24 06:17 Dose: 5 mg Documented By: AIDEN Polyethylene Glycol (Polyethylene Glycol 3350 17 Gm Powd.Pack) 17 gm PO DAILY PRN PRN Reason: Constipation Prednisone (Prednisone 20 Mg Tablet) 40 mg PO DAILY [facility] Last Admin: 06/12/24 08:35 Dose: 40 mg Documented By: CHIKIS Prochlorperazine Edisylate (Prochlorperazine Edisylate 10 Mg/2 Ml Vial) 5 mg IVPUSH Q4H PRN PRN Reason: Nausea and Vomiting Last Admin: 06/12/24 06:13 Dose: 5 mg Documented By: AIDEN Sodium Chloride (0.9 % Sodium Chloride Flush 3 Ml Syringe) 3 ml IVFLUSH QSHIFT [facility] Last Admin: 06/12/24 08:41 Dose: 3 ml Documented By: CHIKIS Sumatriptan Succinate (Sumatriptan Succinate 50 Mg Tablet) 50 mg PO DAILY MRX1 PRN PRN Reason: Migraine Headache Last Admin: 06/10/24 10:39 Dose: 50 mg Documented By: SOCRATES Zolpidem Tartrate (Zolpidem Tartrate 5 Mg Tablet) 5 mg PO BEDTIME [facility] Last Admin: 06/11/24 21:39 Dose: 5 mg Documented By: AIDEN Labs 06/12/24 05:45 06/12/24 05:45 Labs: Laboratory Results - last 24 hr 06/11/24 06/12/24 06/12/24 Unknown 05:45 07:28 MCV 91.4 MCH 30.7 MCHC 33.6 RDW 13.9 Plt Count 309 MPV 10.1 Absolute Nucleated RBC 0.000 Nucleated RBC % (auto) 0.0 Anion Gap 13 Estim Creat Clear Calc 95.8 Estimated GFR > 60 Random Glucose 133 H Calcium 9.5 Stool Leukocytes, Qual NEGATIVE C. difficile Tox B Gene POSITIVE A* Procedures Date of Service Date of Service: 06/12/24 Progress Note: A&P Assessment and plan (1) Diverticulitis: Status: Acute Assessment and Plan: Clinically looks well Good GI function Tolerating diet Labs okay Abdomen soft and benign Also has Crohn's disease of the distal ileum She appears to be okay for discharge Follow up with GI and surgery Time Spent With Patient Time: Total time managing care of this patient today ____ minutes. Quality Stroke Does the patient have a stroke diagnosis?: No VTE Prior VTE?: No VTE Risk Level:: Medical - moderate - high VTE Device Contraindication: Treatment Not Indicated VTE Drug Contraindication: N/A - Med Ordered
[2024-06-12] MEDS: cefTRIAXone sodium 1 GM in 0.9 % Sodium Chloride 50 ML IV (11:30)
[2024-06-12 11:42] LABS: CDIFF Internal ctrl Dots and bkg OK (V); CDiff Toxin Negative (Negative)
--- NOTE | 2024-06-12 11:47 | P.DS_ITS ---
DS: Providers Provider Date of Service: 06/12/24 Date of admission: 06/06/24 12:38 Primary care physician: Jaswant Frank MD Consults: 06/06/24 12:52 Consult to Gastroenterology Routine Consulting Provider: Matthew Alexis Reason for consultation: crohns flare, colitis 06/08/24 15:43 Consult to General Surgery Routine Consulting Provider: Sharif Milan Reason for consultation: diverticulitis Has provider been notified: No DS: Diagnosis Discharge Diagnosis (1) Diverticulitis: Status: Acute (2) Crohn disease: Status: Acute DS: Summary Hospital Course Hospital Course: Admission note HPI 48-year-old female with history of anxiety, Crohn's disease, 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's disease, chronic CDiff carrier, history of diverticulitis, depression, history of renal cell carcinoma, lumbar degenerative disc disease, migraine, bilateral osteoarthritis of the hips presented to the ED for evaluation of severe diffuse abd pain, worst on the left side associated with N/V. She did have watery diarrhea x3 weeks ago, which she states is her baseline, but has since been constipated. Reports a hard bowel movement that ended up soft and was normal in color. No ongoing diarrhea, no melena/hematochezia. Has been using miralax. She is on entivio infusions, but her infusions were canceled twice last week, follows with Dr. Alexis. No fevers, chills, ingestion of bad foods, recent travel, sick contacts. She is very anxious, currently reporting 6/10 non radiating pain, was 10/10 on arrival. Since arrival, vital signs stable. There is a leukocytosis of 13.3. Renal function baseline, electrolyte levels normal except for chloride 109, CO2 19. Troponin below detectable limits. Lipase 16. ESR, CRP pending. Stool occult blood positive. Negative for COVID, flu, RSV. CT abdomen/pelvis shows mild wall thickening and stratified enhancement with submucosal edema involving the terminal ileum and distal ileum most consistent with active inflammatory bowel disease. No SBO. There is also evidence of possible mild acute diverticulitis versus acute colitis. Incidentally seen is a heterogenous cortical lesion in the posterior aspect of the interpolar right kidney with gradual increase in size over time. In the ED, has received 125 mg IV methylprednisolone, 1 g ceftriaxone, 500 mg Flagyl, ondansetron, pain medication, IV fluids. Hospital course She was treated for Acute sigmoid diverticulitis as CT abdomen/pelvis shows mild wall thickening and stratified enhancement with submucosal edema involving the terminal ileum and distal ileum most consistent with active inflammatory bowel disease. No SBO. Stool CDiff positive for Antigen only with resolution of diarrhea. Treated with IV Ceftriaxone and flagyl (initiated 06/06) will transition to by mouth Ceftin and Flagyl for discharge for total of 10 days of antibitoics. no need for Vancomycin PO at this point as she will be on Flagyl. Dr. Alexis he recommend to DC steroids since no definite signs of active Crohn's flare but then recommended restarting Prednisone and discontinue Budesonide upon discharge. Dr. Milan he recommend outpatient follow up if continues to have flares up she will need colectomy. To follow up for next dose of Entyvio infusion with GI. To give Prednisone taper dose starting 40 mg daily and lower by 5 mg weekly for total of [address] Alexis. # She was noted to have a Cortical lesion in posterior aspect of the interpolar right kidney demonstrated gradual increase in size over time, underlying slow growing neoplasm is not excluded, outpatient dynamic abdominal MRI with and without intravenous contrast recommended/patient has history of renal cell carcinoma. To be followed by PCP. Discharge plan Take Flagyl and Ceftin Prednisone as prescribed taper dose , stop Budesonide Follow with dr Alexis as outpatient outpatient dynamic abdominal MRI with and without intravenous contrast recommended for right kidny lesion To follow with dr Milan from surgery as outpatient Time Attestation Discharge Coordination Time (in mins): 44 Quality: Safe Use of Opioids Does Pt have an Active Cancer Diagnosis on the Problem List?: No Quality: Stroke Does the patient have a stroke diagnosis?: No Physical Exam Vital Signs: Vital Signs: Last Vital Signs Temp 97.8 F 06/12/24 08:00 Pulse 80 06/12/24 08:00 Resp 18 06/12/24 08:00 BP 157/80 H 06/12/24 08:00 Pulse Ox 98 06/12/24 08:00 O2 Del Method Room Air 06/12/24 08:00 BMI result Body Mass Index 27.5 Const: Other: Gen: Awake alert x3 Lungs: clear to auscultation bilaterally, no crackles Heart: regular rate and rhythm, no murmurs Abd: soft, no significant tenderness ,no guarding, bowel sounds audible Ext: no edema Skin: warm/well-perfused Neuro: alert and oriented x3, no focal findings Psych: Anxious DS: Data Data Completed and Pending Labs on day of discharge: Laboratory Results - last 24 hr 06/11/24 06/12/24 06/12/24 Unknown 05:45 07:28 WBC 6.7 RBC 4.20 Hgb 12.9 Hct 38.4 MCV 91.4 MCH 30.7 MCHC 33.6 RDW 13.9 Plt Count 309 MPV 10.1 Absolute Nucleated RBC 0.000 Nucleated RBC % (auto) 0.0 Sodium 140 Potassium 3.4 Chloride 105 Carbon Dioxide 25 Anion Gap 13 BUN 5 L Creatinine 0.65 Estim Creat Clear Calc 95.8 Estimated GFR > 60 Random Glucose 133 H Calcium 9.5 Stool Leukocytes, Qual NEGATIVE C. difficile Tox B Gene POSITIVE A* C. difficile Toxin A&B Negative C. difficile Interpret SEE NOTE Discharge Plan Discharge Anticipated Discharge Date/Time: 06/10/24 14:11 Patient Disposition: Home, Self-Care Discharge Diagnosis: Acute diverticulitis Referrals: Jaswant Frank MD [Primary Care Provider] - 1 Week Discharge Medications: New metronidazole 500 mg Tablet 500 mg PO TID Qty: 12 0RF cefuroxime axetil 500 mg tablet 500 mg PO BID Qty: 6 0RF Rx Instructions: Start 06/13 morning. prednisone 10 mg tablet See Taper PO DIRECTED Qty: 130 0RF Taper: Prednisone 40 mg daily for 7 Days and 0 Hour 35 mg daily for 7 Days and 0 Hour 30 mg daily for 7 Days and 0 Hour 25 mg daily for 7 Days and 0 Hour 20 mg daily for 7 Days and 0 Hour 15 mg daily for 7 Days and 0 Hour 10 mg daily for 7 Days and 0 Hour 5 mg daily for 7 Days and 0 Hour Rx Instructions: see taper instructions Continued sumatriptan succinate 50 mg tablet 50 mg PO DAILY MRX1 PRN (Reason: Migraine Headache) Qty: 30 0RF mesalamine 500 mg capsule, extended release 1,000 mg PO QID omeprazole 40 mg capsule,delayed release(DR/EC) 40 mg PO DAILY duloxetine 30 mg capsule,delayed release(DR/EC) 30 mg PO BID cholestyramine (with sugar) 4 gram Powder 4 g PO DAILY PRN (Reason: Diarrhea) Probiotic 3 billion cell capsule 3,000 mmu cells PO DAILY Qty: 30 0RF Rx Instructions: administer with a meal metoclopramide HCl [Reglan] 10 mg tablet 10 mg PO Q6H PRN (Reason: nausea and vomiting) Qty: 30 0RF ondansetron HCl 4 mg tablet 4 mg PO Q6H PRN (Reason: Nausea And Vomiting) acetaminophen 500 mg Tablet 1,000 mg PO DAILY PRN (Reason: Pain) polyethylene glycol 3350 [Miralax] 17 gram/dose Powder 17 g PO DAILY PRN (Reason: Constipation) clonidine HCl 0.1 mg tablet 0.1 mg PO TID zolpidem 12.5 mg tablet,ext release multiphase 6.25 mg PO BEDTIME lorazepam 1 mg tablet 1 mg PO TID morphine 15 mg tablet 15 mg PO Q6H PRN (Reason: pain) Qty: 14 0RF Rx Instructions: Partial Fill upon patient request. patient to hold tramadol ondansetron 4 mg tablet,disintegrating 4 mg PO Q8H PRN (Reason: nausea and vomiting) Qty: 20 0RF Entyvio 300 mg recon soln 300 mg IV Q4W Patient Comments: Next appt is 06/12/24 Rx Instructions: administer over 30 mins dicyclomine 10 mg capsule 10 - 20 mg PO QID Discontinued budesonide 3 mg capsule,delayed,extend.release 9 mg PO DAILY Discharge Orders: Discharge Order (Routine); Ordered 06/12/24 Ordered By: Santosh Tello Diet: Advance to usual diet Activity on Discharge: As tolerated Stand Alone Forms: Patient Portal Discharge page Print Language: Trinidadian Care Plan Goals: Full recovery from acute diverticulitis and prevention of complication of diverticulitis Health Concerns: Crohn's disease acute diverticulitis abdominal pain Plan of Treatment: Take Flagyl and Ceftin Prednisone taper as prescribed , stop Budesonide Follow with dr Alexis as outpatient outpatient dynamic abdominal MRI with and without intravenous contrast recommended for right kidny lesion To follow with dr Milan from surgery as outpatient Assessment: Read below
[2024-06-21 20:35] LABS: Calprotectin, Fecal 145 mcg/g
== END 2024-06-12 14:50 | disposition home or self-care (01) | DRG 386 ==
LOC: HO.ED 10:25 → HO.EDOVER 13:03 → HO.S3 17:33
PROVIDERS: Hospitalist; Internal Medicine; Admitting Provider Physician Assistant; Emergency Provider Emergency Medicine; PCP Internal Medicine; Visit Provider Student in an Organized Health Care Education/Training Program
DX: K50.00 Crohn's disease of small intestine without complications (principal); K57.32 Diverticulitis of large intestine without perforation or abscess without bleeding; R03.0 Elevated blood-pressure reading, without diagnosis of hypertension; F41.9 Anxiety disorder, unspecified; D41.01 Neoplasm of uncertain behavior of right kidney; F32.A Depression, unspecified; K59.00 Constipation, unspecified; Z79.620 Long term (current) use of immunosuppressive biologic; Z79.899 Other long term (current) drug therapy
CPT/HCPCS: 0241U; 36415; 74177; 80048; 80053; 82272; 83690; 83993; 84484; 85025; 85027; 85652; 86140; 87324; 87493; 89055; 93005; 99285; J0696; J0737; J1170; J1650; J1720; J1836; J1885; J2060; J2405; J2919; Q9967

== ENCOUNTER → 2024-06-06 07:36 | Outpatient (BNV) | payer OTHER, SELFPAY | PROVIDERS: Emergency Provider Emergency Medicine; PCP Internal Medicine; Visit Provider Internal Medicine Cardiovascular Disease | DX: R07.9 Chest pain, unspecified (principal) | CPT/HCPCS: 93010 ==

== ENCOUNTER → 2024-06-06 12:38 | Outpatient (BNV) | payer OTHER, SELFPAY | PROVIDERS: Admitting Provider Physician Assistant; Emergency Provider Emergency Medicine; PCP Internal Medicine; Visit Provider Physician Assistant | DX: K57.92 Diverticulitis of intestine, part unspecified, without perforation or abscess without bleeding (principal); K50.919 Crohn's disease, unspecified, with unspecified complications | CPT/HCPCS: 99223; 99232; 99239 ==

== ENCOUNTER → 2024-06-06 12:38 | Outpatient (BNV) | payer OTHER, SELFPAY | PROVIDERS: Admitting Provider Physician Assistant; Emergency Provider Emergency Medicine; PCP Internal Medicine; Visit Provider Surgery | DX: K57.92 Diverticulitis of intestine, part unspecified, without perforation or abscess without bleeding (principal) | CPT/HCPCS: 99222; 99232 ==

== ENCOUNTER 2024-06-16 14:39 | Outpatient (AMB) | payer OTHER, SELFPAY ==
--- NOTE | 2024-06-16 14:49 | MHC.OFFVIS ---
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 Information Interpreted: non-clinical & clinical Accompanied by: Self / Same As Patient Allergies meperidine [From Demerol] Allergy (Severe, Verified 06/16/24 14:56) SWELLING,RASH,THROAT CLOSES latex [LATEX] Allergy (Mild, Verified 06/16/24 14:56) RASH codeine [Codeine] Adverse Reaction (Intermediate, Verified 06/16/24 14:56) NAUSEA/VOMITING, GI upset/vomiting duloxetine Adverse Reaction (Intermediate, Verified 06/16/24 14:56) headaches trazodone Adverse Reaction (Mild, Verified 06/16/24 14:56) Anxiety Fish Containing Products [Fish Product Derivatives] Adverse Reaction (Unknown, Verified 06/16/24 14:56) NAUSEA/VOMITING bupropion Adverse Reaction (Intermediate, Uncoded 06/16/24 14:56) increased headaches HPI Comments Details: Presenting requesting Mirena IUD insertion since her [employer] request for the insurance was declined [facility] Medical History Clostridioides difficile carrier Renal calculus, bilateral Postcoital bleeding Major depression, recurrent, chronic Furuncle Diverticulitis Obesity (BMI 30-39.9) Crohn's colitis Crohns disease of small intestine Crohn's colitis Intractable nausea and vomiting Migraine History of renal cell cancer (~2014) Osteoarthritis of hips, bilateral Depression Crohn's disease Lumbar degenerative disc disease Insomnia Anxiety 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 Surgical History Hx of colonoscopy History of esophagogastroduodenoscopy (EGD) History of removal of calculus of renal pelvis through percutaneous nephrostomy (~10/2015) History of cryosurgery (~04/20/15) History of intestinal surgery History of arthroplasty (~01/2012) Family History Father Crohn disease Migraine Cancer Mother HTN (hypertension) Vertigo Cervical cancer Maternal Grandmother HTN (hypertension) Hyperlipidemia Diabetes mellitus Paternal Grandmother Diabetes mellitus Other Mental health problem Social History Household Members: Family Housing: House Do you presently have visiting nurse or other home services: No Unable to assess alcohol history related to: Unable to respond Alcohol intake: current Alcohol intake frequency: holidays/special occasions only Patient Tobacco Use Status: Former Tobacco user Tobacco use type: Cigarette e-Cigarette/Vaping Use: Former Use Second Hand Smoke Exposure: No Substance Use Type: Marijuana Advance Directives Date on File: 06/15/22 service: No Current occupational status: unemployed Gender identity: Female Cognitive needs: No Hearing needs: No Vision needs: Yes (glasses) Female Reproductive History Menstrual Age of Menarche: 12 Review of Systems Const All systems reviewed & are unremarkable except as noted in HPI and below Reports as per HPI and Reports no additional complaints GI Reports no additional complaints Reports no additional complaints Physical Exam Vital Signs: Last Vital Signs BP 136/82 06/16/24 14:54 BMI result Body Mass Index 24.3 Office Procedures IUD Insert/Removal Details Details: The patient is presenting for Mirena IUD insertion Urine test was done in the office and was negative; All the contraindications were excluded. The following possible complications were discussed with the patient: Intrauterine , Ectopic , Sepsis, Pelvic Infection including Actinomyces given the patient history of actinomycin on previous Pap, Irregular Bleeding and Amenorrhea, Perforation, Expulsion, Ovarian Cysts, Breast Cancer, The following adverse effects were discussed with the patient: alteration of menstrual bleeding pattern, including: unscheduled uterine bleeding decreased uterine bleeding increased scheduled uterine bleeding female genital tract bleeding ,amenorrhea , genital discharge , vulvovaginitis , breast pain , benign ovarian cyst and associated complications , dysmenorrhea , Gastrointestinal disorders abdominal/pelvic pain, headache/migraine , back pain , acne , depression Alternative options were discussed with the patient including but not limited: control pills, patch, NuvaRing, Depo-medroxyprogesterone acetate, Nexplanon, copper IUD, sterilization, vasectomy, others The procedure was explained in detail to patient , at the end patient signed the informed consent obtained. A no touch technique was used throughout the procedure. A speculum was placed into vagina and cervix was cleaned with betadine). A tenaculum was placed. A plastic sound was advanced through the external and internal os until it reached the fundus of the uterus, the depth was 8 cm. The sound was then withdrawn. The IUD was loaded in a sterile manner and advanced into position. The string was visualized and cut to 3 cm. Tenaculum site hemostatic. All instruments removed from vagina. Patient tolerated the procedure well. NO complications were noted. Patient was instructed to call for fever over 100.4, significant pain unrelieved by Motrin, IUD expulsion, heavy bleeding, or abnormal discharge. In addition, the following clinical considerations were discussed with the patient to call for removal: A stroke or heart attack ,Very severe or migraine headaches ,Unexplained fever ,Yellowing of the skin or whites of the eyes, as these may be signs of serious liver problems , or suspected , Pelvic pain or pain during sex ,HIV positive seroconversion in herself or her partner , Possible exposure to sexually transmitted infections Unusual vaginal discharge or genital sores , severe vaginal bleeding or bleeding that lasts a long time, or if she misses a menstrual period, Inability to feel Mirena's threads Counseled the patient that the IUD does not protect against STI's, recommended use of condoms for the first 7 days post insertion and explained to the patient that condoms are recommended for patients at risk for sexually transmitted infections. Informed the patient that Mirena IUD is FDA approved for 8 years for contraception for 5 years for the treatment of heavy menses Instructed the patient to schedule a Follow up appointment in 4 to 6 weeks following insertion. This note was generated with a voice recognition program. Some errors may have been overlooked during the review of this note. Sometimes these errors may affect the content or meaning of a given sentence. 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 All the pros, cons, risks and benefits of each were discussed with the patient. The patient decided to go ahead with Mirena IUD, so a more detailed discussion was carried on including mechanism of action, risks (infection including Actinomyces given the patient has history of actinomycin on Pap smear with previous IUD, uterine perforation, failure with ectopic , septic AB, ovarian cyst and pelvic pain, increased breast cancer risk and others) benefits (efficient contraceptive method, others), GC/CG were taken and Mirena IUD insertion done, see procedure. (2) Encounter for IUD insertion: Code(s): Z30.430 - Encounter for insertion of intrauterine contraceptive device Category: Medical Plan: Mirena IUD inserted, see procedure Orders: Orders AMB IUD Insertion/Removal - Practice Supplied Today Z30.430 - Encounter for insertion of intrauterine contraceptive device AMB HCG Urine Test Today Z32.02 - Encounter for test, result negative Medications: New Mirena (levonorgestrel) 1 device intrauterine ONCE 1 ea 0RF IUD insertion NS Z30.430 - Encounter for insertion of intrauterine contraceptive device Coding Level of Care Code Procedure Only Diagnoses Family planning Z30.09 Encounter for IUD insertion Z30.430 CPT Codes Details - CPT: 39385-PEC Insertion ([id number])
[2024-06-16 14:54] VITALS: BP 136/82; BMI 24.3
== END 2024-06-16 15:13 | disposition home or self-care (01) ==
LOC: HO.HWS 14:39
PROVIDERS: PCP Internal Medicine; Visit Provider Obstetrics & Gynecology
DX: Z30.430 Encounter for insertion of intrauterine contraceptive device (principal); Z30.09 Encounter for other general counseling and advice on contraception; Z32.02 Encounter for pregnancy test, result negative
CPT/HCPCS: 58300

== ENCOUNTER 2024-06-16 14:39 | Outpatient (REF) | payer OTHER, SELFPAY ==
[2024-06-16 18:15] LABS: CT PCR NOT DETECTED (Not Detect.); NG PCR NOT DETECTED (Not Detect.)
== END 2024-06-16 14:40 | disposition home or self-care (01) ==
LOC: HO.LNP 14:39
PROVIDERS: PCP Internal Medicine; Visit Provider Obstetrics & Gynecology
DX: Z20.2 Contact with and (suspected) exposure to infections with a predominantly sexual mode of transmission (principal)
CPT/HCPCS: 81025; 87491; 87591; J7298

== ENCOUNTER 2024-06-16 15:27 | Outpatient (AMB) | payer OTHER, SELFPAY ==
[2024-06-16 15:28] VITALS: BP 160/96; PULSE 86; O2SAT 99; BMI 24.3
--- NOTE | 2024-06-16 15:28 | MHC.PC.OV ---
Vital Signs 06/16/24 15:28 Height 5 ft 5 in Weight 146 lb BMI 24.3 BP 160/96 H Blood Pressure Location Lt brachial Position Sitting Pulse 86 Pulse Source Pulse Oximeter Pulse Oximetry (%) 99 Oxygen Delivery Method Room Air Intake Visit Reasons: [facility] [place] - Diverticulitis Per Diem Rn: Not Required per policy Accompanied by: Self / Same As Patient Allergies meperidine [From Demerol] Allergy (Severe, Verified 06/16/24 15:29) SWELLING,RASH,THROAT CLOSES latex [LATEX] Allergy (Mild, Verified 06/16/24 15:29) RASH codeine [Codeine] Adverse Reaction (Intermediate, Verified 06/16/24 15:29) NAUSEA/VOMITING, GI upset/vomiting duloxetine Adverse Reaction (Intermediate, Verified 06/16/24 15:29) headaches trazodone Adverse Reaction (Mild, Verified 06/16/24 15:29) Anxiety Fish Containing Products [Fish Product Derivatives] Adverse Reaction (Unknown, Verified 06/16/24 15:29) NAUSEA/VOMITING bupropion Adverse Reaction (Intermediate, Uncoded 06/16/24 15:29) increased headaches Tobacco use date assessed: 04/22/24 Dental Screening Dental Screen Date: 04/22/24 HPI HPI Comments History of Present Illness Details 48 y/o female patient who presents to the clinic today for HDF. She was admitted at [facility] [place] on 06/06/24 for Diverticulitis. She was discharged home 06/06/24 on Oral Abx. Pt does have h/o Crohn's disease and being followed by [facility] [place]GI group. She has an appointment tomorrow with GI for IV infusions for Crohn's treatment. Today Pt reports feeling much better. Pt c/o bilateral lower leg swelling since the hospital discharged. She was told that it could be due to Protein deficiency. Denies SOB, CP, or Severe limb pain. She has been elevating the limbs. Pt asking for Ambien Rx refills. She used to receive it from Sleep clinic, but now she was informed by them to request it from PCP. In the course of the hospital stay, CT Abdomen/Pelvic did show Cortical lesion in the posterior Aspect of the Interpolar right Kidney- Radiologist recommended MRI Abdomen with Contrast Dye. Pt is aware of the Kidney Lesions. 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 Surgical History Hx of colonoscopy History of esophagogastroduodenoscopy (EGD) History of removal of calculus of renal pelvis through percutaneous nephrostomy (~10/2015) History of cryosurgery (~04/20/15) History of intestinal surgery History of arthroplasty (~01/2012) Family History Father Crohn disease Migraine Cancer Mother HTN (hypertension) Vertigo Cervical cancer Maternal Grandmother HTN (hypertension) Hyperlipidemia Diabetes mellitus Paternal Grandmother Diabetes mellitus Other Mental health problem Social History Household Members: Family Housing: House Do you presently have visiting nurse or other home services: No Unable to assess alcohol history related to: Unable to respond Alcohol intake: current Alcohol intake frequency: holidays/special occasions only Patient Tobacco Use Status: Former Tobacco user Tobacco use type: Cigarette e-Cigarette/Vaping Use: Former Use Second Hand Smoke Exposure: No Substance Use Type: Marijuana Advance Directives Date on File: 06/15/22 service: No Current occupational status: unemployed Gender identity: Female Cognitive needs: No Hearing needs: No Vision needs: Yes (glasses) Female Reproductive History Menstrual Age of Menarche: 12 Questionnaire Thrive Questionnaire Date Thrive assessed: 06/07/24 MONTSE-7 AMB Questionnaire MONTSE-7 Date MONTSE - 7 assessed: 01/16/24 Source: Developed by Drs. Matthew Hernandez, Starr Jiménez, Billy Somers and colleagues, with an educational paxton from [employer]. Review of Systems Const All systems reviewed & are unremarkable except as noted in HPI and below Physical exam (Primary Care) Vital Signs: Last Vital Signs Pulse 86 06/16/24 15:28 BP 160/96 H 06/16/24 15:28 Pulse Ox 99 06/16/24 15:28 Oxygen Delivery Method Room Air 06/16/24 15:28 BMI result Body Mass Index 24.3 Tobacco/Smoking Status: Tobacco use Status Tobacco use date assessed 04/22/24 06/16/24 15:29 Patient Tobacco Use Status Former Tobacco user 06/16/24 15:29 Tobacco use type Cigarette 06/16/24 15:29 e-Cigarette/Vaping Use Former Use 06/16/24 15:29 Thrive Assessment: Date of Thrive Assessment Date Thrive assessed 06/07/24 06/16/24 15:29 Const General: healthy appearing and comfortable Orientation/consciousness: patient oriented x3 Resp Effort & Inspection: normal respiratory effort Auscultation: clear to auscultation bilaterally Cardio Heart sounds: S1 normal heart sound present and S2 normal heart sound present Skin General skin exam: no rashes or lesions noted Neuro General: patient oriented x3, gait normal and moves all extremities Extrem Right lower extremity: lower leg Details: non-pitting edema Details: 1+; no tenderness Left lower extremity: edema Details: pitting and 3+ and lower leg Details: pitting edema Details: 3+; no erythema and no tenderness Psych Speech and movement: Normal speech and movement present Vital Signs: Last Vital Signs Pulse 86 06/16/24 15:28 BP 160/96 H 06/16/24 15:28 Pulse Ox 99 06/16/24 15:28 Oxygen Delivery Method Room Air 06/16/24 15:28 BMI result Body Mass Index 24.3 Const General: healthy appearing and comfortable Orientation/consciousness: patient oriented x3 Resp Effort & Inspection: normal respiratory effort Auscultation: clear to auscultation bilaterally Cardio Heart sounds: S1 normal heart sound present and S2 normal heart sound present Skin General skin exam: no rashes or lesions noted Neuro General: patient oriented x3, gait normal and moves all extremities Extrem Right lower extremity: lower leg Details: non-pitting edema Details: 1+; no tenderness Left lower extremity: edema Details: pitting and 3+ and lower leg Details: pitting edema Details: 3+; no erythema and no tenderness Psych Speech and movement: Normal speech and movement present Results AMB Test Urine AMB Test Urine Negative Last Edit by Sandy Brooks CMA on 06/16/24 15:12 Assessment and Plan Assessment & Plan (1) Acute diverticulitis: Code(s): K57.92 - Diverticulitis of intestine, part unspecified, without perforation or abscess without bleeding Plan: Continue on Abx as scheduled F/U with GI (Dr. Alexis) as scheduled. (2) Crohn disease: Code(s): K50.90 - Crohn's disease, unspecified, without complications Qualifiers: Gastrointestinal tract location: unspecified location Digestive disease complication type: without complication Qualified Code(s): K50.90 - Crohn's disease, unspecified, without complications Plan: F/U with GI as scheduled Scheduled for IV infusions tomorrow. Coding Level of Care Code Est Pt Level 4 (58405) Diagnoses Acute diverticulitis K57.92 Crohn's disease without complication, unspecified gastrointestinal tract location K50.90 Gastrointestinal tract location: unspecified location Digestive disease complication type: without complication Comment Spent 20 minutes reviewing hospital discharge reports
== END 2024-06-16 16:04 | disposition home or self-care (01) ==
PROVIDERS: PCP Internal Medicine; Visit Provider Nurse Practitioner Family
DX: K57.92 Diverticulitis of intestine, part unspecified, without perforation or abscess without bleeding (principal); K50.90 Crohn's disease, unspecified, without complications
CPT/HCPCS: 99214

== ENCOUNTER 2024-07-28 12:24 | Outpatient (AMB) | payer OTHER, SELFPAY ==
[2024-07-28 12:35] VITALS: BP 122/80; BMI 24.2
--- NOTE | 2024-07-28 12:35 | MHC.OFFVIS ---
Vital Signs 07/28/24 12:35 Height 5 ft 5 in Weight 145 lb 8.081 oz BMI 24.2 BP 122/80 Blood Pressure Location Lt brachial Position Sitting Intake Visit Reasons: iud check 6week Allergies meperidine [From Demerol] Allergy (Severe, Verified 07/28/24 12:45) SWELLING,RASH,THROAT CLOSES latex [LATEX] Allergy (Mild, Verified 07/28/24 12:45) RASH codeine [Codeine] Adverse Reaction (Intermediate, Verified 07/28/24 12:45) NAUSEA/VOMITING, GI upset/vomiting duloxetine Adverse Reaction (Intermediate, Verified 07/28/24 12:45) headaches trazodone Adverse Reaction (Mild, Verified 07/28/24 12:45) Anxiety Fish Containing Products [Fish Product Derivatives] Adverse Reaction (Unknown, Verified 07/28/24 12:45) NAUSEA/VOMITING bupropion Adverse Reaction (Intermediate, Uncoded 07/28/24 12:45) increased headaches HPI Comments Details: The patient is presenting for IUD check after 1 st period following IUD insertion. The patient has no complaints periods are normal, not painful, and flow is normal. 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 Surgical History Hx of colonoscopy History of esophagogastroduodenoscopy (EGD) History of removal of calculus of renal pelvis through percutaneous nephrostomy (~10/2015) History of cryosurgery (~04/20/15) History of intestinal surgery History of arthroplasty (~01/2012) Family History Father Crohn disease Migraine Cancer Mother HTN (hypertension) Vertigo Cervical cancer Maternal Grandmother HTN (hypertension) Hyperlipidemia Diabetes mellitus Paternal Grandmother Diabetes mellitus Other Mental health problem Social History Household Members: Family Housing: House Do you presently have visiting nurse or other home services: No Unable to assess alcohol history related to: Unable to respond Alcohol intake: current Alcohol intake frequency: holidays/special occasions only Patient Tobacco Use Status: Former Tobacco user Tobacco use type: Cigarette e-Cigarette/Vaping Use: Former Use Second Hand Smoke Exposure: No Substance Use Type: Marijuana Advance Directives Date on File: 06/15/22 service: No Current occupational status: unemployed Gender identity: Female Cognitive needs: No Hearing needs: No Vision needs: Yes (glasses) Female Reproductive History Menstrual Age of Menarche: 12 Review of Systems Const All systems reviewed & are unremarkable except as noted in HPI and below Physical Exam Vital Signs: Last Vital Signs BP 122/80 07/28/24 12:35 BMI result Body Mass Index 24.2 General: Yes no CVA tenderness External Female Exam: normal external appearance and normal appearance of the urethra Speculum Exam - Vagina: normal appearance of the vagina, normal palpation, no lesions and no masses Speculum Exam - Cervix: normal appearance of the cervix, normal palpation, no lesions, no masses, nontender and Other cervical findings present (IUD thread in place) Bimanual exam- vagina & uterus: normal bimanual exam, normal palpation, uterine size normal, normal palpation, uterine shape normal, No Cervical tenderness present and non-tender Bimanual Exam- Adnexa, other: normal adnexae Back/Spine/Pelvis Back: no CVA tenderness Assessment & Plan Assessment & Plan (1) IUD check up: Code(s): Z30.431 - Encounter for routine checking of intrauterine contraceptive device Category: Medical Plan: UPT done in the office was negative. Discussed with the patient the finding on physical exam, IUD string in place, the patient was reassured. Instructions given to patient to call in case of temperature above 100.4, severe cramping/pelvic pain, abnormal discharge or abnormal uterine bleeding or if she misses her menstrual cycle. Otherwise follow-up at her annual exam appointment. All questions answered, the patient verbalized understanding. Coding Level of Care Code Est Pt Level 3 (31096) Diagnoses IUD check up Z30.431
== END 2024-07-28 12:55 | disposition home or self-care (01) ==
PROVIDERS: PCP Internal Medicine; Visit Provider Obstetrics & Gynecology
DX: Z30.431 Encounter for routine checking of intrauterine contraceptive device (principal); Z32.02 Encounter for pregnancy test, result negative
CPT/HCPCS: 99213

== ENCOUNTER → 2024-07-28 12:24 | Outpatient (BNVA) | payer OTHER, SELFPAY | PROVIDERS: PCP Internal Medicine; Visit Provider Obstetrics & Gynecology | DX: Z30.431 Encounter for routine checking of intrauterine contraceptive device (principal) | CPT/HCPCS: 81025; 99212 ==

== ENCOUNTER 2024-08-03 10:18 | Outpatient (REF) | payer OTHER, SELFPAY | END 2024-08-03 10:19 | disposition home or self-care (01) | LOC: HO.LNP 10:18 | PROVIDERS: PCP Internal Medicine; Visit Provider Nurse Practitioner Family | DX: N28.89 Other specified disorders of kidney and ureter (principal); N20.0 Calculus of kidney; N39.3 Stress incontinence (female) (male); N00-N99 Diseases of the genitourinary system; N39.0 Urinary tract infection, site not specified; R10.84 Generalized abdominal pain | CPT/HCPCS: 81003; 87086; 87088; 87186; 99212 ==

== ENCOUNTER 2024-08-03 10:18 | Outpatient (AMB) | payer OTHER, SELFPAY ==
--- NOTE | 2024-08-03 10:23 | A.OFFVIS_ITS ---
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: No Accompanied by: Self / Same As Patient Allergies meperidine [From Demerol] Allergy (Severe, Verified 08/03/24 10:54) SWELLING,RASH,THROAT CLOSES latex [LATEX] Allergy (Mild, Verified 08/03/24 10:54) RASH codeine [Codeine] Adverse Reaction (Intermediate, Verified 08/03/24 10:54) NAUSEA/VOMITING, GI upset/vomiting duloxetine Adverse Reaction (Intermediate, Verified 08/03/24 10:54) headaches trazodone Adverse Reaction (Mild, Verified 08/03/24 10:54) Anxiety Fish Containing Products [Fish Product Derivatives] Adverse Reaction (Unknown, Verified 08/03/24 10:54) NAUSEA/VOMITING bupropion Adverse Reaction (Intermediate, Uncoded 08/03/24 10:54) increased headaches Medication List - Last Reconciled 08/03/24 by STEPHANIE Mir acetaminophen 1,000 mg PO DAILY PRN cholestyramine (with sugar) 4 gram 4 grams PO DAILY PRN clonidine HCl 0.1 mg PO TID dicyclomine 10 - 20 mg PO QID duloxetine 30 mg PO BID 30 days [GRAB BAR As directed] lactobacillus combination no.4 (Probiotic) 3,000 mmu cells PO DAILY levonorgestrel (Mirena) intrauterine lorazepam 1 mg PO TID lorazepam 1 mg PO TID 30 days mesalamine ER 1,000 mg PO QID metoclopramide HCl (Reglan) 10 mg PO Q6H PRN metronidazole 500 mg PO TID omeprazole 40 mg PO DAILY ondansetron 4 mg PO Q8H PRN ondansetron HCl 4 mg PO Q6H PRN polyethylene glycol 3350 (Miralax) 17 grams PO DAILY PRN prednisone 15 mg See Taper PO DIRECTED [SHOWER CHAIR As directed] [Shower head with long hose As directed] sumatriptan succinate 50 mg PO DAILY MRX1 PRN tramadol 50 mg PO TID PRN 30 days vedolizumab (Entyvio) 300 mg IV Q4W zolpidem ER 12.5 mg PO BEDTIME PRN 30 days HPI Comments Details: Gabi is a very pleasant 49-year-old female patient of Dr. Frank. She has a PMH of depression, diverticulitis, obesity, Crohn's disease, migraines, renal cell cancer, osteoarthritis, depression, insomnia, and anxiety. She presents to the office today for follow-up of her coital incontinence. Recent renal imaging results reviewed with the patient today. Bilateral kidneys with no hydronephrosis. A few punctate hyper echoic foci in both kidneys likely calculi. In discussion with the patient today she reports having had recent ER visit approximately 2 months ago for abdominal pain she had been experiencing at which time a CT of the abdomen was ordered and performed. These results were also reviewed with the patient today. A heterogeneous cortical lesion in the posterior aspect of the interpolar right kidney measuring a proximally 1.8 cm which demonstrates gradual increase in size over time as a previously measured 1.4 cm in 2020. Otherwise kidneys are normal. The bladder is unremarkable. Recommend further evaluation with outpatient dynamically MRI with and without contrast per radiology report. She discusses having had 2 appointments with pelvic floor therapy and has found this extremely helpful and educational. In office urinalysis results reviewed with the patient today trace leukocytes positive nitrates 1+ microscopic blood pH 5.5. 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 We discussed at length potential urinary tract infection will send for urine culture. She denies any bothersome urinary issues. She denies urinary urgency, urinary frequency, nocturia, hematuria, dysuria, foul smelling urine, changes to urinary stream, flank pain, fever, and or chills. Discussed at length potential causes of stress incontinence. She otherwise denies any other issues or concerns at this time. [facility] Medical History Clostridioides difficile carrier Renal calculus, bilateral Postcoital bleeding Major depression, recurrent, chronic Furuncle Diverticulitis Obesity (BMI 30-39.9) Crohn's colitis Crohns disease of small intestine Crohn's colitis Intractable nausea and vomiting Migraine History of renal cell cancer (~2014) Osteoarthritis of hips, bilateral Depression Crohn's disease Lumbar degenerative disc disease Insomnia Anxiety 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 Surgical History Hx of colonoscopy History of esophagogastroduodenoscopy (EGD) History of removal of calculus of renal pelvis through percutaneous nephrostomy (~10/2015) History of cryosurgery (~04/20/15) History of intestinal surgery History of arthroplasty (~01/2012) Family History Father Crohn disease Migraine Cancer Mother HTN (hypertension) Vertigo Cervical cancer Maternal Grandmother HTN (hypertension) Hyperlipidemia Diabetes mellitus Paternal Grandmother Diabetes mellitus Other Mental health problem Social History Household Members: Family Housing: House Do you presently have visiting nurse or other home services: No Unable to assess alcohol history related to: Unable to respond Alcohol intake: current Alcohol intake frequency: holidays/special occasions only Patient Tobacco Use Status: Former Tobacco user Tobacco use type: Cigarette e-Cigarette/Vaping Use: Former Use Second Hand Smoke Exposure: No Substance Use Type: Marijuana Advance Directives Date on File: 06/15/22 service: No Current occupational status: unemployed Gender identity: Female Cognitive needs: No Hearing needs: No Vision needs: Yes (glasses) Female Reproductive History Menstrual Age of Menarche: 12 Review of Systems Const Reports no additional complaints Eyes Reports no additional complaints ENT Reports no additional complaints Card Reports as per HPI Resp Reports no additional complaints GI Reports as per HPI Reports as per HPI Musc Reports as per HPI Neuro Reports no additional complaints Psych Reports as per HPI Endo Reports no additional complaints Physical Exam Const General: cooperative, healthy appearing, comfortable, no acute distress, well developed, alert and awake Nutritional Appearance: overweight Orientation/consciousness: patient oriented x3 Limitations: no limitations HEENT Head: Yes normal to inspection, Yes normocephalic and Yes atraumatic Ears: hearing grossly normal bilaterally Eyes General: appearance normal, both eyes and all related structures Neck Neck: Yes normal visual inspection and Yes trachea midline Chest Chest palpation & inspection: normal inspection of the chest Resp Effort & Inspection: normal respiratory effort and able to speak in complete sentences Cardio Rate: regular rate GI Inspection: Yes normal to inspection General: Yes no CVA tenderness Back/Spine/Pelvis Back: no CVA tenderness Skin General skin exam: no rashes or lesions noted Neuro General: patient oriented x3 Extrem General: Yes normal to inspection Psych Appearance: grossly normal and well kempt Mental Status: mental status grossly normal Speech and movement: Normal speech and movement present and Clear speech present Affect: normal affect Attitude: cooperative Thought process: Normal thought process present Thought content: Normal thought content present Insight: Fair insight present (Psych) Judgement: Fair judgement present (Psych) Results AMB Urinalysis, Automated UA Leukoctes 15 Rajni/uL Last Edit by [employer] on 08/03/24 10:46 UA Nitrite Positive Last Edit by [employer] on 08/03/24 10:46 UA Urobilinogen 0.2 mg/dL Last Edit by [employer] on 08/03/24 10:46 UA Protein 15 mg/dL Last Edit by [employer] on 08/03/24 10:46 UA pH 5.5 Last Edit by [employer] on 08/03/24 10:46 UA Blood 25 Ernie/uL Last Edit by [employer] on 08/03/24 10:46 UA Specific [place] 1.030 Last Edit by [employer] on 08/03/24 10:46 UA Ketone Positive Last Edit by [employer] on 08/03/24 10:46 UA Bilirubin 0 mg/dL Last Edit by [employer] on 08/03/24 10:46 UA Glucose 0 mg/dL Last Edit by [employer] on 08/03/24 10:46 Results Reviewed Results Reviewed: Laboratory Last Values Urine pH (Auto) 5.5 08/03/24 10:45 Specific [place] (Auto) 1.030 08/03/24 10:45 Urine Protein (Auto) 15 mg/dL 08/03/24 10:45 Glucose (UA)(Auto) 0 mg/dL 08/03/24 10:45 Urine Ketones (Auto) Positive 08/03/24 10:45 Urine Blood (Auto) 25 Ernie/uL 08/03/24 10:45 Urine Nitrite (Auto) Positive 08/03/24 10:45 Urine Bilirubin (Auto) 0 mg/dL 08/03/24 10:45 Urine Urobilinogen (Auto) 0.2 mg/dL 08/03/24 10:45 Leukocyte Esterase (Auto) 15 Rajni/uL 08/03/24 10:45 Date of Service: 05/03/24 EXAMINATION: US RETROPERITONEAL LIMITED (RENAL ONLY) FINDINGS: Limited examination secondary to patient motion. RIGHT KIDNEY: 10.3 x 5 x 4.7 cm (SAG x AP x TRV). No hydronephrosis. A few up to 0.3 cm hyperechoic foci that could represent a combination of calculi and vascular calcifications. LEFT KIDNEY: 9.4 x 4.1 x 4.3 cm (SAG x AP x TRV). No hydronephrosis. As above, a few punctate hyperechoic foci are noted with similar differential considerations. IMPRESSION: Limited examination secondary to patient motion. 1. No hydronephrosis. 2. A few punctate hyperechoic foci in both kidneys could represent calculi and/or vascular calcifications. Date of Service: 06/06/24 EXAMINATION: CT ABDOMEN AND PELVIS WITH CONTRAST FINDINGS: LUNG BASES: No focal consolidation or pleural effusion. LIVER, GALLBLADDER, AND BILIARY TREE: The liver is normal in size, shape, and attenuation. No focal hepatic lesion or biliary ductal dilatation is present. The gallbladder is unremarkable with no evidence of radiopaque gallstones, gallbladder wall thickening, or obvious pericholecystic inflammatory changes. PANCREAS: Unremarkable. SPLEEN: Unremarkable. ADRENAL GLANDS: Unremarkable. KIDNEYS AND URETERS: A heterogeneous cortical lesion in the posterior aspect of the interpolar right kidney measuring 1.8 x 1.3 cm demonstrates gradual increase in size over time, for instance measuring 1.4 x 1.3 cm on 10/02/2021. Otherwise, normal kidneys. BLADDER: Unremarkable. GASTROINTESTINAL TRACT: Small hiatal hernia. The stomach and the small bowel are nondilated. Mild wall thickening and stratified enhancement with submucosal edema involving the terminal ileum and distal ileum, for a length of approximately 12 cm. Normal appendix. Colonic diverticulosis with trace pericolonic fatty haziness in the distal descending colon (8:28 and 7:39). Moderate colonic stool burden. ABDOMINAL WALL: Small fat-containing umbilical hernia. LYMPH NODES: No lymphadenopathy. VASCULAR: Normal caliber of the abdominal aorta. PELVIC VISCERA: Unremarkable. OSSEOUS STRUCTURES: Partially seen left femoral with unchanged chronic surrounding cystic changes, for example stable compared to 06/15/2022. Degenerative changes of the spine. IMPRESSION: 1. Mild wall thickening and stratified enhancement with submucosal edema involving the terminal ileum and distal ileum most consistent with active inflammatory bowel disease in this patient with a history of Crohn's. Evaluation of stricture is limited in the absence of oral contrast, however no significant upstream disproportional dilatation is seen to suspect a high-grade small bowel obstruction. 2. Colonic diverticulosis with short segment of trace pericolonic fatty haziness in the distal descending colon suggesting mild acute diverticulitis, less likely acute colitis in the proper clinical content. 3. Small hiatal hernia. 4. A heterogeneous cortical lesion in the posterior aspect of the interpolar right kidney demonstrates gradual increase in size over time, underlying slow-growing neoplasm is not excluded. Recommend further evaluation with outpatient dynamic abdominal MRI with and without intravenous contrast. Assessment & Plan Assessment & Plan (1) Right renal mass: Code(s): N28.89 - Other specified disorders of kidney and ureter Category: Medical (2) Nephrolithiasis: Code(s): N20.0 - Calculus of kidney Category: Medical (3) Stress incontinence: Code(s): N39.3 - Stress incontinence (female) (male) Category: Medical (4) Coital incontinence: Code(s): N39.491 - Coital incontinence Category: Medical (5) UTI (urinary tract infection): Code(s): N39.0 - Urinary tract infection, site not specified Category: Medical Plan In office urinalysis results reviewed with the patient today; as noted above; will send for urine culture; will await results for potential treatment. PVR 0 mL Recent renal ultrasound as well as CT imaging results reviewed with the patient today; as noted above. Will obtain MRI of the kidney for further assessment evaluation. Continue with pelvic floor therapy. Patient currently denies any bothersome urinary issues. Discussed, educated, and stressed the importance of adequate hydration relation to nephrolithiasis, potential UTI, as well as overall health and well being. Follow-up in 1-3 months with imaging to be completed prior; or sooner with any issues, concerns, and or questions. Orders: Orders Urine Culture Today R10.84 - Generalized abdominal pain, Z13.9 - Encounter for screening, unspecified AMB Urinalysis Automated Today Z13.9 - Encounter for screening, unspecified MR kidney wo/w con Today N28.89 - Other specified disorders of kidney and ureter Patient Instructions: The patient had an opportunity to ask questions regarding the treatment plan. All questions were answered. Physical exam, labs, and imaging were discussed and reviewed in detail. As well as risks, benefits, and discussion of treatment choices. No major barriers to understanding were identified. The patient expressed understanding and agreement with the above treatment plan. The patient was made aware they should contact our office by phone for worsening of their current condition, the appearance of new symptoms, or with any questions or concerns. Compliance is encouraged with any medications and follow up testing that is ordered. It is a privilege to be allowed the opportunity to participate in? your urological care.? Again, if you have any questions or concerns If you have any questions or concerns please do not hesitate to contact me. The office is [phone]. This note is constructed using voice recognition software. While every effort has been made to ensure accuracy administrative assistant data entry errors may have been included. Yours sincerely, STEPHANIE Mir Coding Level of Care Code Est Pt Level 3 (43626) Complex EM visit Add On G2211 Diagnoses Right renal mass N28.89 Nephrolithiasis N20.0 Stress incontinence N39.3 Coital incontinence N39.491 UTI (urinary tract infection) N39.0
== END 2024-08-03 11:13 | disposition home or self-care (01) ==
PROVIDERS: PCP Internal Medicine; Visit Provider Nurse Practitioner Family
DX: N28.89 Other specified disorders of kidney and ureter (principal); N20.0 Calculus of kidney; N39.3 Stress incontinence (female) (male); N00-N99 Diseases of the genitourinary system; N39.0 Urinary tract infection, site not specified; Z13.9 Encounter for screening, unspecified
CPT/HCPCS: 99213; G2211

== ENCOUNTER 2024-08-11 12:17 | Outpatient (AMB) | payer OTHER, SELFPAY ==
--- NOTE | 2024-08-11 12:35 | MHC.PC.OV ---
Vital Signs 08/11/24 12:36 Height 5 ft 5 in Weight 155 lb BMI 25.8 BP 116/70 Blood Pressure Location Lt brachial Position Sitting Intake Visit Reasons: 3mth f/u Intake Note: Patient here for a 3 month follow up Supervisor Grading Required: No Accompanied by: Self / Same As Patient Allergies meperidine [From Demerol] Allergy (Severe, Verified 08/11/24 13:00) SWELLING,RASH,THROAT CLOSES latex [LATEX] Allergy (Mild, Verified 08/11/24 13:00) RASH codeine [Codeine] Adverse Reaction (Intermediate, Verified 08/11/24 13:00) NAUSEA/VOMITING, GI upset/vomiting duloxetine Adverse Reaction (Intermediate, Verified 08/11/24 13:00) headaches trazodone Adverse Reaction (Mild, Verified 08/11/24 13:00) Anxiety Fish Containing Products [Fish Product Derivatives] Adverse Reaction (Unknown, Verified 08/11/24 13:00) NAUSEA/VOMITING bupropion Adverse Reaction (Intermediate, Uncoded 08/11/24 13:00) increased headaches Medication List - Last Reconciled 08/11/24 by Jaswant Frank MD acetaminophen 1,000 mg PO DAILY PRN cholestyramine (with sugar) 4 gram 4 grams PO DAILY PRN clonidine HCl 0.1 mg PO TID dicyclomine 10 - 20 mg PO QID duloxetine 30 mg PO BID 30 days [GRAB BAR As directed] lactobacillus combination no.4 (Probiotic) 3,000 mmu cells PO DAILY levonorgestrel (Mirena) intrauterine lorazepam 1 mg PO TID lorazepam 1 mg PO TID 30 days mesalamine ER 1,000 mg PO QID metoclopramide HCl (Reglan) 10 mg PO Q6H PRN metronidazole 500 mg PO TID nitrofurantoin macrocrystal 100 mg PO BID 14 days omeprazole 40 mg PO DAILY ondansetron 4 mg PO Q8H PRN polyethylene glycol 3350 (Miralax) 17 grams PO DAILY PRN [SHOWER CHAIR As directed] [Shower head with long hose As directed] sumatriptan succinate 50 mg PO DAILY MRX1 PRN tramadol 50 mg PO TID PRN 30 days vedolizumab (Entyvio) 300 mg IV Q4W zolpidem ER 12.5 mg PO BEDTIME PRN 30 days Tobacco use date assessed: 04/22/24 Dental Screening Dental Screen Date: 08/11/24 Did you have a dental visit in the last 12 months?: Yes Did you have a dental problem in the last 6 months where you did not have access to dental care?: No Was dental information given to patient?: Patient has dentist HPI 3mth f/u HPI Details Patient comes in today for her follow up visit States that she has been on Entyvio every 6 weeks for a while now, and that the medication seems to be helping She denies any increased headaches or dizziness lately Denies any chest pains, no increased SOB (+) occasional nausea but no vomiting lately; adds that she has not had any increased abdominal pain lately Adds that his bowel movement have been better/stable on her current Rx States that her chronic low back pain and joint pains remain adequately controlled on her current Rx [facility] Medical History Clostridioides difficile carrier Renal calculus, bilateral Postcoital bleeding Major depression, recurrent, chronic Furuncle Diverticulitis Obesity (BMI 30-39.9) Crohn's colitis Crohns disease of small intestine Crohn's colitis Intractable nausea and vomiting Migraine History of renal cell cancer (~2014) Osteoarthritis of hips, bilateral Depression Crohn's disease Lumbar degenerative disc disease Insomnia Anxiety 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 Surgical History Hx of colonoscopy History of esophagogastroduodenoscopy (EGD) History of removal of calculus of renal pelvis through percutaneous nephrostomy (~10/2015) History of cryosurgery (~04/20/15) History of intestinal surgery History of arthroplasty (~01/2012) Family History Father Crohn disease Migraine Cancer Mother HTN (hypertension) Vertigo Cervical cancer Maternal Grandmother HTN (hypertension) Hyperlipidemia Diabetes mellitus Paternal Grandmother Diabetes mellitus Other Mental health problem Social History Household Members: Family Housing: House Do you presently have visiting nurse or other home services: No Unable to assess alcohol history related to: Unable to respond Alcohol intake: current Alcohol intake frequency: holidays/special occasions only Patient Tobacco Use Status: Former Tobacco user Tobacco use type: Cigarette e-Cigarette/Vaping Use: Former Use Second Hand Smoke Exposure: No Substance Use Type: Marijuana Advance Directives Date on File: 06/15/22 service: No Current occupational status: unemployed Gender identity: Female Cognitive needs: No Hearing needs: No Vision needs: Yes (glasses) Female Reproductive History Menstrual Age of Menarche: 12 Questionnaire Thrive Questionnaire Date Thrive assessed: 06/07/24 Are you currently unemployed and looking for a job?: I choose not to answer this question MONTSE-7 AMB Questionnaire MONTSE-7 Date MONTSE - 7 assessed: 01/16/24 Source: Developed by Drs. Matthew Hernandez, Starr Jiménez, Billy Somers and colleagues, with an educational paxton from [employer]. Review of Systems Const Denies chills, Reports difficulty sleeping, Reports fatigue, Denies fever(s) and Denies headache(s) ENT Denies dizziness, Denies otalgia, Denies headache(s), Denies neck pain, Denies odynophagia and Denies sore throat Card Denies chest pain, Denies palpitations and Denies dyspnea Resp Denies chest congestion, Denies cough, Denies dyspnea and Denies wheezing GI Reports abdominal pain (intermittent), Denies hematochezia, Reports constipation (on and off), Denies heartburn, Denies diarrhea, Denies loose stools, Reports nausea (on and off - better lately), Denies odynophagia and Denies vomiting Denies difficulty voiding, Denies nocturia, Denies dysuria and Denies urinary urgency Musc Reports back pain, Reports arthralgias (over both hips) and Denies neck pain Skin/Breast Denies rash Neuro Denies dizziness and Denies headache(s) Psych Reports anxiety and Reports depression Endo Reports fatigue and Denies palpitations Aller/Immun Denies wheezing Physical exam (Primary Care) Vital Signs: Last Vital Signs BP 116/70 08/11/24 12:36 BMI result Body Mass Index 25.8 Tobacco/Smoking Status: Tobacco use Status Tobacco use date assessed 04/22/24 08/11/24 12:41 Patient Tobacco Use Status Former Tobacco user 08/11/24 12:41 Tobacco use type Cigarette 08/11/24 12:41 e-Cigarette/Vaping Use Former Use 08/11/24 12:41 Thrive Assessment: Date of Thrive Assessment Date Thrive assessed 06/07/24 08/11/24 12:41 Const General: no acute distress and alert HENMT Ears: TM's normal bilaterally and EAC's normal Throat: Yes posterior oropharynx normal and Yes tonsils normal (no TP congestion noted) Neck Neck: Yes no lymphadenopathy and Yes supple Thyroid: Thyroid normal Resp Auscultation: clear to auscultation bilaterally, no rales and no wheezes Cardio Rate: regular rate Rhythm: regular rhythm Heart sounds: no murmurs GI Palpation (GI): Soft to palpation, Tenderness to palpation present (GI) ((+) minimal diffuse lower abdominal discomfort), no guarding, not rigid and No Rebound tenderness present Auscultation: normal bowel sounds General: Yes no CVA tenderness Back/Spine/Pelvis Back: no CVA tenderness Thoracic/Lumbar Spine: lumbar spinal tenderness Skin Rashes: no rashes Extrem General: Yes no clubbing, cyanosis or edema Assessment and Plan Assessment & Plan (1) Crohn disease: Code(s): K50.90 - Crohn's disease, unspecified, without complications Qualifiers: Digestive disease complication type: unspecified complication Gastrointestinal tract location: unspecified location Qualified Code(s): K50.919 - Crohn's disease, unspecified, with unspecified complications Plan: Continue Entyvio 300 mg SQ every 6 weeks, Mesalamine ER 1000 mg QID and Budesonide ER 3 mg 3 capsules (900 mg) QD Her abdominal MRI done a few months ago revealed (+) mild improvement in the transmural wall thickening at the terminal ileum, suggesting some improvement Follow up with GI (Dr. Alexis) as scheduled (2) Lumbar degenerative disc disease: Code(s): M51.36 - Other intervertebral disc degeneration, lumbar region Plan: Reinforced activity and weight-lifting restrictions Continue Tramadol 50 mg TID PRN for pain (3) Migraine: Code(s): G43.909 - Migraine, unspecified, not intractable, without status migrainosus Qualifiers: Migraine type: unspecified Status migrainosus presence: without status migrainosus Intractability: not intractable Qualified Code(s): G43.909 - Migraine, unspecified, not intractable, without status migrainosus Plan: Continue Sumatriptan 50 mg PRN for headaches Continue Excedrin PRN and Ondansetron PRN for nausea/vomiting Topiramate (for LUNDBERG prophylaxis) was discontinued previously due to its potential interactions with Mirena; patient reports experiencing frequent headaches since Patient also relates experiencing a significant increase in her headaches when she was started on Bupropion XL and Buspirone a few months ago - headaches have subsided since she was instructed to STOP taking them If headaches get worse or progress, will consider referring her back to neurology for consultation (4) Impaired fasting glucose: Code(s): R73.01 - Impaired fasting glucose Plan: FBS was elevated on her recent labs done a few months ago - was most likely due to the effects of Prednisone, which she has been off (completed Tx) for a while now In-office HgbA1c was normal at 5.6% when previously checked Will continue to monitor her blood sugar closely Reinforced again low calorie/low carb diet to help control her blood sugar better (5) Insomnia: Code(s): G47.00 - Insomnia, unspecified Qualifiers: Insomnia type: unspecified Qualified Code(s): G47.00 - Insomnia, unspecified Plan: Sleep hygiene reinforced Continue Zolpidem CR 12.5 mg Q HS Has been checked out and advised by Sleep Medicine that she does NOT have FAISAL Was recently tried on Belsomra, which she felt was helping with her sleep but this was denied by her insurance Follow up with Sleep Medicine as scheduled (6) Anxiety: Code(s): F41.9 - Anxiety disorder, unspecified Plan: She is advised again to continue following up with her current therapist at [facility] regularly/weekly; she was also seen by a psychiatrist previously but was advised at the time that she can continue seeing her therapist weekly and does not need to see psychiatry regularly but patient is instructed to talk to her therapist about getting her back in to see psychiatry [facility] given her recent issues Continue Lorazepam 1 mg BID PRN She was previously on Escitalopram 10 mg QD but she self-discontinued this a few months ago and her anxiety and depression got worse afterwards She was started on Wellbutrin XL 150 mg Q AM and Buspirone 7.5 mg BID a couple of months ago but was instructed to stop taking them when she reported experiencing increased and frequent headaches while on the Rx (7) Major depression, recurrent, chronic: Code(s): F33.9 - Major depressive disorder, recurrent, unspecified Plan: Increased since she stopped taking her Escitalopram a few months ago Could not tolerate Wellbutrin XL 150 mg Q AM and Buspirone due to increased headaches She was also trialed on Duloxetine 30 mg Q HS at her last visit but she reports that her headaches also got worse in the Rx and she stopped taking it immediately She is reminded to continue following up with her therapist regularly and to request seeing psychiatry again for a new consultation given her increasing depression and anxiety (8) Obesity (BMI 30-39.9): Code(s): E66.9 - Obesity, unspecified Plan: Reinforced diet/exercise as tolerated/lose weight Plan Follow up in 4 months Coding Level of Care Code Est Pt Level 4 (84487) Diagnoses Crohn's disease with complication, unspecified gastrointestinal tract location K50.919 Digestive disease complication type: unspecified complication Gastrointestinal tract location: unspecified location Lumbar degenerative disc disease M51.36 Migraine without status migrainosus, not intractable, unspecified migraine type G43.909 Migraine type: unspecified Status migrainosus presence: without status migrainosus Intractability: not intractable Impaired fasting glucose R73.01 Insomnia, unspecified type G47.00 Insomnia type: unspecified Anxiety F41.9 Major depression, recurrent, chronic F33.9 Obesity (BMI 30-39.9) E66.9
[2024-08-11 12:36] VITALS: BP 116/70; BMI 25.8
== END 2024-08-11 13:10 | disposition home or self-care (01) ==
PROVIDERS: PCP Internal Medicine; Visit Provider Internal Medicine
DX: K50.919 Crohn's disease, unspecified, with unspecified complications (principal); F33.9 Major depressive disorder, recurrent, unspecified; M51.36 Other intervertebral disc degeneration, lumbar region; G43.909 Migraine, unspecified, not intractable, without status migrainosus; R73.01 Impaired fasting glucose; G47.00 Insomnia, unspecified; F41.9 Anxiety disorder, unspecified; E66.9 Obesity, unspecified

== ENCOUNTER → 2024-08-11 12:17 | Outpatient (BNVA) | payer OTHER, SELFPAY | PROVIDERS: PCP Internal Medicine; Visit Provider Internal Medicine | DX: K50.919 Crohn's disease, unspecified, with unspecified complications (principal); M51.36 Other intervertebral disc degeneration, lumbar region; G43.909 Migraine, unspecified, not intractable, without status migrainosus; R73.01 Impaired fasting glucose; F41.9 Anxiety disorder, unspecified; F33.9 Major depressive disorder, recurrent, unspecified; E66.9 Obesity, unspecified | CPT/HCPCS: 99212 ==

== ENCOUNTER → 2024-08-25 09:10 | Outpatient (BNV) | payer OTHER, SELFPAY | PROVIDERS: PCP Internal Medicine; Visit Provider Radiology Diagnostic Radiology | DX: N28.89 Other specified disorders of kidney and ureter (principal) | CPT/HCPCS: 74183 ==

== ENCOUNTER 2024-08-25 09:12 | Outpatient (REF) | payer OTHER, SELFPAY ==
--- NOTE | ~2024-08-25 | MR_ITS ---
EXAMINATION: MR ABDOMEN WITHOUT AND WITH CONTRAST CLINICAL INFORMATION: Heterogeneous cortical lesion, right kidney. COMPARISON: MRI abdomen dated November 19, 2023. Correlated to CT dated June 06, 2024. TECHNIQUE: MR abdomen was performed without and with use of 7.0 mL intravenous Gadavist gadolinium contrast without reported immediate complications. Postcontrast images are performed in multiphase dynamic sequences. Imaging was performed in 3 planes . FINDINGS: Submitted for interpretation on October 09, 2024. Limited by patient's motion artifact. Blurred contrast-enhanced coronal sequences and to a lesser extent in the axial enhancing sequences. LIVER, GALLBLADDER, AND BILIARY TREE: Liver measures 16 cm. No focal enhancing lesion. The main portal veins, hepatic veins and intrahepatic portion of the IVC are patent. No intrahepatic or extrahepatic biliary ductal dilatation. Fluid-filled gallbladder without pericholecystic fluid collection or gallbladder wall thickening. PANCREAS: No focal pancreatic mass. No peripancreatic fluid collection. No main pancreatic ductal dilatation. SPLEEN: 9 cm. No focal mass. ADRENAL GLANDS: There is a 10 mm nodular lesion with drop of the signal from the in and out of phase centimeter in the left adrenal gland. No nodular lesions in the right adrenal gland. KIDNEYS AND URETERS: Right kidney: There is a 1.3 x 1.1 cm , hypointense T1 and hyperintense T2 with a peripheral hypointense T2 wall, septated enhancing lesion at the corticomedullary junction of the posterior midportion/lower pole junction. There is a cortical defect in the posterior midportion. There is no delayed sequences demonstrated contrast within the collecting system. No hydronephrosis. The main renal vessels are patent. No perinephric/pararenal compartment mass or lymphadenopathy. Left kidney: No enhancing renal mass. No hydronephrosis. No lesions in the perirenal/pararenal compartment. Main renal vessels are patent. GASTROINTESTINAL TRACT: No intestinal obstruction pattern. No ascites. ABDOMINAL WALL: Fat-containing umbilical hernia, small. LYMPH NODES: No lymphadenopathy in the retroperitoneum or mesentery and. VASCULAR: No aneurysm or dissection, abdominal aorta. OSSEOUS STRUCTURES: Multilevel thoracolumbar spondylosis more conspicuous at T12-L1 with a central and right subarticular disc herniation with the likely cephalad migration beneath the posterior longitudinal ligament abutting the cord. Grade 1 anterolisthesis L4-5 resulting in central spinal canal stenosis. 1.5 cm dominant follicle, right adnexa and 1.3 cm dominant follicle in the left adnexa. MR/MR kidney wo/w con IMPRESSION: Bosniak type III lesion, right kidney. Electronically signed by: Neo Palacio MD 10/09/2024 12:34 PM EST
[2024-08-25] MEDS: gadobutroL 7.5 ML VIAL IVPUSH (10:04)
== END 2024-08-25 09:13 | disposition home or self-care (01) ==
LOC: HO.MRI 09:12
PROVIDERS: PCP Internal Medicine; Visit Provider Nurse Practitioner Family
DX: N28.89 Other specified disorders of kidney and ureter (principal)
CPT/HCPCS: 74183; A9585

== ENCOUNTER 2024-09-29 12:07 | Outpatient (REF) | payer OTHER, SELFPAY ==
[2024-09-29 12:36] LABS: MANUAL DIFF FLAG NO
[2024-09-29 12:56] LABS: Basophils Absolute Auto 0.1 X10*3/uL (0.0-0.2); Basophils Percent Auto 0.7 % (0-2); Eosinophils Absolute Auto 0.3 X10*3/uL (0.0-0.4); Eosinophils Percent Auto 4.7 % (0-4); Hematocrit 39.8 % (37.0-47.0); Hemoglobin 12.9 g/dl (12.0-16.0); Imm Gran Abs Auto 0.02 X10*3/uL (0.00-0.03); Imm Gran Pct Auto 0.3 % (0.0-0.4); Lymphocytes Absolute Auto 1.4 X10*3/uL (1.2-4.9); Lymphocytes Percent Auto 19.9 % (20-40); Mean Corpuscular HGB Conc 32.4 g/dl (31.0-35.0); Mean Corpuscular Hemoglobin 30.1 pg (27.0-33.0); Mean Corpuscular Volume 92.8 fL (80.0-98.0); Mean Platelet Volume 9.9 fL (9.4-12.3); Monocytes Absolute Auto 0.6 X10*3/uL (0.1-1.2); Monocytes Percent Auto 8.9 % (2-11); Neutrophils Absolute Auto 4.6 x10*3/uL (2.0-8.3); Neutrophils Percent Auto 65.5 % (45-73); Platelet Count 341 X10*3/uL (160-400); Red Blood Count 4.29 X10*6/uL (4.20-5.50); Red Cell Distribution Width 13.6 % (11.0-16.0); White Blood Count 7.1 X10*3/uL (4.8-10.8)
[2024-09-29 13:42] LABS: Alanine Aminotransferase 17 U/L (0-31); Albumin Level 3.7 g/dL (3.5-5.0); Alkaline Phosphatase 80 U/L (39-117); Anion Gap 11 (12-20); Aspartate Amino Transferase 28 U/L (5-31); Bilirubin Direct < 0.2 mg/dL (0.0-0.5); Bilirubin Total 0.1 mg/dL (0.0-1.0); Blood Urea Nitrogen 12 mg/dL (9-16); C Reactive Protein 0.61 mg/dL (< or = 0.50); Calcium 9.8 mg/dL (8.4-10.2); Carbon Dioxide 24 mmol/L (22-29); Chloride 107 mmol/L (96-108); Erythrocyte Sedimentation Rate 28 MM/HR (0-20); Estimated Glomerular Filt Rate > 60; Glucose Random 117 mg/dL (60-115); Iron 41 mcg/dL (30-160); Lipase 11 U/L (8-78); Percent Iron Saturation 18 % (15-50); Potassium 3.8 mmol/L (3.3-5.1); Sodium 138 mmol/L (135-145); Total Iron Binding Capacity 228 mcg/dL (228-428); Total Protein 6.9 g/dL (6.5-8.0); Unsaturated Iron Binding 187 ug/dL
[2024-09-29 13:44] LABS: Ferritin 29 ng/mL (10-250); TSH reflex Free T4 0.48 uIU/mL (0.32-4.0); Vitamin D 25-OH Total 28.6 ng/mL (>30)
[2024-09-29 13:55] LABS: Folate 14.6 ng/mL (> or = 4.0); Vitamin B12 449 pg/mL (200-900)
== END 2024-09-29 12:08 | disposition home or self-care (01) ==
LOC: HO.LAB 12:07
PROVIDERS: PCP Internal Medicine; Visit Provider Internal Medicine
DX: K50.80 Crohn's disease of both small and large intestine without complications (principal); R11.0 Nausea; R19.7 Diarrhea, unspecified; R53.83 Other fatigue
CPT/HCPCS: 36415; 80048; 80076; 82306; 82607; 82728; 82746; 83540; 83690; 84443; 85025; 85652; 86140

== ENCOUNTER 2024-10-05 11:35 | Outpatient (AMB) | payer OTHER, SELFPAY ==
--- NOTE | 2024-10-05 11:53 | MHC.OFFVIS ---
Intake Visit Reasons: 2 month/ MRI(set) Intake Note: Patient presents today for a follow-up on: renal mass and mri results MRI Completed: 08/25/24 Meds- None Allergies to Antibiotic- No Known Allergies Blood Thinner- None Acquisitions Logistics Analyst Required: No Accompanied by: Self / Same As Patient Allergies meperidine [From Demerol] Allergy (Severe, Verified 10/05/24 12:36) SWELLING,RASH,THROAT CLOSES latex [LATEX] Allergy (Mild, Verified 10/05/24 12:36) RASH codeine [Codeine] Adverse Reaction (Intermediate, Verified 10/05/24 12:36) NAUSEA/VOMITING, GI upset/vomiting duloxetine Adverse Reaction (Intermediate, Verified 10/05/24 12:36) headaches trazodone Adverse Reaction (Mild, Verified 10/05/24 12:36) Anxiety Fish Containing Products [Fish Product Derivatives] Adverse Reaction (Unknown, Verified 10/05/24 12:36) NAUSEA/VOMITING bupropion Adverse Reaction (Intermediate, Uncoded 10/05/24 12:36) increased headaches Medication List - Last Reconciled 10/05/24 by STEPHANIE Mir acetaminophen 1,000 mg PO DAILY PRN cholestyramine (with sugar) 4 gram 4 grams PO DAILY PRN clonidine HCl 0.1 mg PO TID PRN dicyclomine 10 - 20 mg PO QID duloxetine 30 mg PO BID 30 days [GRAB BAR As directed] lactobacillus combination no.4 (Probiotic) 3,000 mmu cells PO DAILY levonorgestrel (Mirena) intrauterine lorazepam 1 mg PO TID 30 days mesalamine ER 1,000 mg PO QID metoclopramide HCl (Reglan) 10 mg PO Q6H PRN omeprazole 40 mg PO DAILY ondansetron 4 mg PO Q8H PRN polyethylene glycol 3350 (Miralax) 17 grams PO DAILY PRN [SHOWER CHAIR As directed] [Shower head with long hose As directed] sumatriptan succinate 50 mg PO DAILY MRX1 PRN tramadol 50 mg PO TID PRN 30 days vedolizumab (Entyvio) 300 mg IV Q4W zolpidem ER 12.5 mg PO BEDTIME PRN 30 days HPI Comments Details: Gabi is a very pleasant 49-year-old female patient of Dr. Frank. She has a PMH of depression, diverticulitis, obesity, Crohn's disease, migraines, renal cell cancer status post right-sided [place] [address] Linares per patient, osteoarthritis, depression, insomnia, and anxiety. She presents to the office today for follow-up of her coital incontinence. Of note, patient was seen approximately 2 months ago at which time CT noted gradual increase in size over time of heterogeneous right cortical lesion and a MRI was ordered for further assessment evaluation however this remains pending. We discussed reschedule of appointment given imaging pending however patient wanted to discuss coital incontinence. She reports improvement in incontinence since she has started pelvic floor therapy. She discusses her upcoming pelvic floor therapy appointment on Saturday. She reports noting episodes of incontinence have lessened as well as the amount of incontinence. In office urinalysis results reviewed with the patient today. During last office visit patient was also reporting UTI like symptoms therefore urine culture was obtained and noted E coli. When asked she does report completing antibiotic therapy as prescribed. She currently denies any UTI like symptoms. She denies urinary urgency, urinary frequency, nocturia, hematuria, dysuria, foul smelling urine, changes to urinary stream, flank pain, fever, and or chills. Discussed at length potential causes of stress incontinence. She otherwise denies any other issues or concerns at this time. COUNTS INCLUDE 234 BEDS AT THE [facility] Medical History Clostridioides difficile carrier Renal calculus, bilateral Postcoital bleeding Major depression, recurrent, chronic Furuncle Diverticulitis Obesity (BMI 30-39.9) Crohn's colitis Crohns disease of small intestine Crohn's colitis Intractable nausea and vomiting Migraine History of renal cell cancer (~2014) Osteoarthritis of hips, bilateral Depression Crohn's disease Lumbar degenerative disc disease Insomnia Anxiety 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 Surgical History Hx of colonoscopy History of esophagogastroduodenoscopy (EGD) History of removal of calculus of renal pelvis through percutaneous nephrostomy (~10/2015) History of cryosurgery (~04/20/15) History of intestinal surgery History of arthroplasty (~01/2012) Family History Father Crohn disease Migraine Cancer Mother HTN (hypertension) Vertigo Cervical cancer Maternal Grandmother HTN (hypertension) Hyperlipidemia Diabetes mellitus Paternal Grandmother Diabetes mellitus Other Mental health problem Social History Household Members: Family Housing: House Do you presently have visiting nurse or other home services: No Unable to assess alcohol history related to: Unable to respond Alcohol intake: current Alcohol intake frequency: holidays/special occasions only Patient Tobacco Use Status: Former Tobacco user Tobacco use type: Cigarette e-Cigarette/Vaping Use: Former Use Second Hand Smoke Exposure: No Substance Use Type: Marijuana Advance Directives Date on File: 06/15/22 service: No Current occupational status: unemployed Gender identity: Female Cognitive needs: No Hearing needs: No Vision needs: Yes (glasses) Female Reproductive History Menstrual Age of Menarche: 12 Review of Systems Const Reports no additional complaints Eyes Reports no additional complaints ENT Reports no additional complaints Card Reports as per HPI Resp Reports no additional complaints GI Reports as per HPI Reports as per HPI Musc Reports as per HPI Neuro Reports no additional complaints Psych Reports as per HPI Endo Reports no additional complaints Physical Exam Const General: cooperative, healthy appearing, comfortable, no acute distress, well developed, alert and awake Nutritional Appearance: overweight Orientation/consciousness: patient oriented x3 Limitations: no limitations HEENT Head: Yes normal to inspection, Yes normocephalic and Yes atraumatic Ears: hearing grossly normal bilaterally Eyes General: appearance normal, both eyes and all related structures Neck Neck: Yes normal visual inspection and Yes trachea midline Chest Chest palpation & inspection: normal inspection of the chest Resp Effort & Inspection: normal respiratory effort and able to speak in complete sentences Cardio Rate: regular rate GI Inspection: Yes normal to inspection General: Yes no CVA tenderness Back/Spine/Pelvis Back: no CVA tenderness Skin General skin exam: no rashes or lesions noted Neuro General: patient oriented x3 Extrem General: Yes normal to inspection Psych Appearance: grossly normal and well kempt Mental Status: mental status grossly normal Speech and movement: Normal speech and movement present and Clear speech present Affect: normal affect Attitude: cooperative Thought process: Normal thought process present Thought content: Normal thought content present Insight: Fair insight present (Psych) Judgement: Fair judgement present (Psych) Results AMB Urinalysis, Automated UA Leukoctes 70 Rajni/uL Last Edit by [employer] Cof[employer] Whaley on 10/05/24 12:12 UA Nitrite Last Edit by [employer] C[employer]in Noitavonnecony on 10/05/24 12:12 UA Urobilinogen 0.2 mg/dL Last Edit by [employer] Coffeed[employer]in Noitavonnecony on 10/05/24 12:12 UA Protein 15 mg/dL Last Edit by [employer]le[employer] on 10/05/24 12:12 UA pH 6.0 Last Edit by [employer] on 10/05/24 12:12 UA Blood 10 Ernie/uL Last Edit by [employer] on 10/05/24 12:12 UA Specific [place] 1.030 Last Edit by [employer] on 10/05/24 12:12 UA Ketone Negative Last Edit by [employer] on 10/05/24 12:12 UA Bilirubin 1 mg/dL Last Edit by [employer] on 10/05/24 12:12 UA Glucose 0 mg/dL Last Edit by [employer] on 10/05/24 12:12 Results Reviewed Results Reviewed: Laboratory Last Values Urine pH (Auto) 6.0 10/05/24 12:07 Specific [place] (Auto) 1.030 10/05/24 12:07 Urine Protein (Auto) 15 mg/dL 10/05/24 12:07 Glucose (UA)(Auto) 0 mg/dL 10/05/24 12:07 Urine Ketones (Auto) Negative 10/05/24 12:07 Urine Blood (Auto) 10 Ernie/uL 10/05/24 12:07 Urine Bilirubin (Auto) 1 mg/dL 10/05/24 12:07 Urine Urobilinogen (Auto) 0.2 mg/dL 10/05/24 12:07 Leukocyte Esterase (Auto) 70 Rajni/uL 10/05/24 12:07 Assessment & Plan Assessment & Plan (1) Right renal mass: Code(s): N28.89 - Other specified disorders of kidney and ureter Category: Medical (2) Stress incontinence: Code(s): N39.3 - Stress incontinence (female) (male) Category: Medical (3) Coital incontinence: Code(s): N39.491 - Coital incontinence Category: Medical Plan In office urinalysis results reviewed with the patient today; as noted above. MRI remains pending will await results; call to radiology to request reading. Continue pelvic floor therapy as discussed and prescribed. She currently denies any bothersome urinary issues. She denies any UTI like symptoms. Follow-up in later this week or next week to discuss imaging results; or sooner with any issues, concerns, and or questions. Orders: Orders AMB Urinalysis Automated Today Z13.9 - Encounter for screening, unspecified Patient Instructions: The patient had an opportunity to ask questions regarding the treatment plan. All questions were answered. Physical exam, labs, and imaging were discussed and reviewed in detail. As well as risks, benefits, and discussion of treatment choices. No major barriers to understanding were identified. The patient expressed understanding and agreement with the above treatment plan. The patient was made aware they should contact our office by phone for worsening of their current condition, the appearance of new symptoms, or with any questions or concerns. Compliance is encouraged with any medications and follow up testing that is ordered. It is a privilege to be allowed the opportunity to participate in? your urological care.? Again, if you have any questions or concerns If you have any questions or concerns please do not hesitate to contact me. The office is [phone]. This note is constructed using voice recognition software. While every effort has been made to ensure accuracy yeast distiller errors may have been included. Yours sincerely, STEPHANIE Mir Coding Level of Care Code Est Pt Level 3 (26916) Diagnoses Right renal mass N28.89 Stress incontinence N39.3 Coital incontinence N39.491
== END 2024-10-05 12:48 | disposition left against medical advice (07) ==
PROVIDERS: PCP Internal Medicine; Visit Provider Nurse Practitioner Family
DX: N28.89 Other specified disorders of kidney and ureter (principal); N39.3 Stress incontinence (female) (male); N00-N99 Diseases of the genitourinary system; Z13.9 Encounter for screening, unspecified
CPT/HCPCS: 99213

== ENCOUNTER → 2024-10-05 11:35 | Outpatient (BNVA) | payer OTHER, SELFPAY | PROVIDERS: PCP Internal Medicine; Visit Provider Nurse Practitioner Family | DX: N28.89 Other specified disorders of kidney and ureter (principal); N39.3 Stress incontinence (female) (male); N00-N99 Diseases of the genitourinary system; Z85.528 Personal history of other malignant neoplasm of kidney | CPT/HCPCS: 81003; 99212 ==

== ENCOUNTER 2024-10-07 12:01 | Outpatient (RCR) | payer OTHER, SELFPAY ==
--- NOTE | 2024-07-21 15:26 | MHC.PT.EP ---
[facility] [place] Office [place] Office [place] Office [address] Yang Bishop [address] [phone] F: [phone] F: [phone] F: [phone] F: [phone] Physical Therapy Plan of Care Date of Evaluation: 07/21/24 Date of Surgery: Diagnosis: coital incontinence (RL) Assessment: pt is a 49 y/o female presenting to physical therapy w/ referring diagnosis of R15.1 fecal smearing, R27.8 lack of coordination (muscle incoordination), N39.3 stress incontinence. Impairments include pain, decreased range of motion, decreased strength, impaired functional mobility, impaired postural awareness, and altered ambulation mechanics. pt is a good candidate for skilled PT due to age, potential remediation of impairments, typical disease/condition progression and prognosis, comorbidities, and motivation. pt would benefit from skilled PT intervention to provide a tailored strengthening and stretching exercise program, functional training, gait training, postural re-training, neuromuscular re-education, modalities as needed for pain, equipment safety demonstration. Frequency and Duration: The patient will be seen 1x/wk for 8 wks Short Term Goals: pt will be I w/ HEP to promote self-management of condition. pt will demo proper sitting posture w/ lumbar roll to promote neutral spine w/ seated ADLs. Demonstrate proper seated toileting posture w/ knees higher than hips to promote decreased activity of pelvic floor muscles to improve coordination for voiding. Increase pelvic muscle awareness/ isolation as assessed visually or assessed via teachback method and patient demonstration as appropriate. Table Tender Sludge Goals: Identify bladder irritants and correct fluid intake assessed via teachback method. Describe normal voiding frequency and patterns assessed via teachback method. Pt will perform all ADL, work and recreational activities with >80% continence. Coordinate pelvic floor with thoracic diaphragm/ functional activities to reduce incontinence episodes. Treatment Plan: Modalities to reduce pain, spasms and effusion. Manual therapy to restore motion and function. Therapeutic exercise to improve strength and flexibility. Neuromuscular re-education for posture and balance. Therapeutic activities to return to functional activities of daily living. Electronically signed by: Please sign and return to therapist. Thank you for your referral.
--- NOTE | 2024-11-02 15:40 | MHC.PT.DC ---
[facility] [place] [facility] [place] Office [place] Office [address] Yang Bishop [address] [facility] [phone] F: [phone] F: [phone] F: [phone] F: [phone] Physical Therapy Discharge Report Diagnosis: coital incontinence (RL) Date of Surgery: Date of Evaluation: 07/21/24 Date of Discharge: 11/02/24 Treatments to Date: 7 Cancellations to Date: 4 No Shows to Date: 0 Discharge Status: Improved Function Visit Non-compliance Discharge Summary: The patient was reporting some improvement in her incontinence with pelvic floor physical therapy intervention. Unfortunately, she cancelled her last scheduled appointment and has not rescheduled any appointments in nearly one month. She will be discharged from this plan of care at this time. Electronically signed by: Lisa Carroll PT, DPT Please sign and return to therapist. Thank you for your referral.
== END 2024-11-02 15:40 | disposition home or self-care (01) ==
LOC: HO.PT 12:01
PROVIDERS: PCP Internal Medicine; Visit Provider Nurse Practitioner Family
DX: N00-N99 Diseases of the genitourinary system (principal)
CPT/HCPCS: 97110; 97112; 97140; 97162; 97535

== ENCOUNTER 2024-10-13 13:38 | Outpatient (AMB) | payer OTHER, SELFPAY ==
--- NOTE | 2024-10-13 13:44 | A.OFFVIS_ITS ---
Intake Visit Reasons: follow up/MRI Intake Note: Patient presents today for a follow-up on: renal mass and mri results MRI Completed: 08/25/24 Meds- None Allergies to Antibiotic- No Known Allergies Blood Thinner- None Setter Up Required: No Accompanied by: Self / Same As Patient Allergies meperidine [From Demerol] Allergy (Severe, Verified 10/13/24 14:09) SWELLING,RASH,THROAT CLOSES latex [LATEX] Allergy (Mild, Verified 10/13/24 14:09) RASH codeine [Codeine] Adverse Reaction (Intermediate, Verified 10/13/24 14:09) NAUSEA/VOMITING, GI upset/vomiting duloxetine Adverse Reaction (Intermediate, Verified 10/13/24 14:09) headaches trazodone Adverse Reaction (Mild, Verified 10/13/24 14:09) Anxiety Fish Containing Products [Fish Product Derivatives] Adverse Reaction (Unknown, Verified 10/13/24 14:09) NAUSEA/VOMITING bupropion Adverse Reaction (Intermediate, Uncoded 10/13/24 14:09) increased headaches Medication List - Last Reconciled 10/13/24 by STEPHANIE Mir acetaminophen 1,000 mg PO DAILY PRN cholestyramine (with sugar) 4 gram 4 grams PO DAILY PRN clonidine HCl 0.1 mg PO TID PRN dicyclomine 10 - 20 mg PO QID duloxetine 30 mg PO BID 30 days [GRAB BAR As directed] lactobacillus combination no.4 (Probiotic) 3,000 mmu cells PO DAILY levonorgestrel (Mirena) intrauterine lorazepam 1 mg PO TID 30 days mesalamine ER 1,000 mg PO QID metoclopramide HCl (Reglan) 10 mg PO Q6H PRN omeprazole 40 mg PO DAILY ondansetron 4 mg PO Q8H PRN polyethylene glycol 3350 (Miralax) 17 grams PO DAILY PRN [SHOWER CHAIR As directed] [Shower head with long hose As directed] sumatriptan succinate 50 mg PO DAILY MRX1 PRN tramadol 50 mg PO TID PRN 30 days vedolizumab (Entyvio) 300 mg IV Q4W zolpidem ER 12.5 mg PO BEDTIME PRN 30 days HPI Comments Details: Gabi is a very pleasant 49-year-old female patient of Dr. Frank. She has a PMH of depression, diverticulitis, obesity, Crohn's disease, migraines, renal cell cancer status post right-sided cryoabl[place] [address] Linares per patient, osteoarthritis, depression, insomnia, and anxiety. She presents to the office today for follow-up of her right renal mass. Recent MRI results reviewed with the patient today. Right kidney with a 1.3 x 1.1 cm , hypointense T1 and hyperintense T2 with a peripheral hypointense T2 wall, septated enhancing lesion at the corticomedullary junction of the posterior midportion/lower pole junction. There is a cortical defect in the posterior midportion. There is no delayed sequences demonstrated contrast within the collecting system. No hydronephrosis.The main renal vessels are patent. No perinephric/pararenal compartment mass or lymphadenopathy. Left kidney with no enhancing renal mass, hydronephrosis, or lesions noted. Main renal vessels are patent. We discussed previous history of right-sided cryoablation with Dr. Linares and imaging results. We discussed likelihood of cryoablation effect. Discussed surveillance monitoring. She continues to attend pelvic floor therapy for her coital incontinence that she feels has improved. In office urinalysis results reviewed with the patient today. She reports lower urinary tract symptoms she had been experiencing a few months ago have since subsided status post completion of antibiotic therapy. We discussed urine culture results 08/11 noted E coli. She currently denies any UTI like symptoms. She denies urinary urgency, urinary frequency, nocturia, hematuria, dysuria, foul smelling urine, changes to urinary stream, flank pain, fever, and or chills. In review of patient's chart it appears patient status post right cryoablation 04/20/2015 at that time the patient's mass was right up against the parapinious muscle so the only way to manipulate the cryo needle was to have part of this muscle involved in the cryotherapy. Attempted to obtain and or review pathology however this is not present in patient's medical record at this time.She otherwise denies any other issues or concerns at this time. [facility] Medical History Clostridioides difficile carrier Renal calculus, bilateral Postcoital bleeding Major depression, recurrent, chronic Furuncle Diverticulitis Obesity (BMI 30-39.9) Crohn's colitis Crohns disease of small intestine Crohn's colitis Intractable nausea and vomiting Migraine History of renal cell cancer (~2014) Osteoarthritis of hips, bilateral Depression Crohn's disease Lumbar degenerative disc disease Insomnia Anxiety 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 Surgical History Hx of colonoscopy History of esophagogastroduodenoscopy (EGD) History of removal of calculus of renal pelvis through percutaneous nephrostomy (~10/2015) History of cryosurgery (~04/20/15) History of intestinal surgery History of arthroplasty (~01/2012) Family History Father Crohn disease Migraine Cancer Mother HTN (hypertension) Vertigo Cervical cancer Maternal Grandmother HTN (hypertension) Hyperlipidemia Diabetes mellitus Paternal Grandmother Diabetes mellitus Other Mental health problem Social History Household Members: Family Housing: House Do you presently have visiting nurse or other home services: No Unable to assess alcohol history related to: Unable to respond Alcohol intake: current Alcohol intake frequency: holidays/special occasions only Patient Tobacco Use Status: Former Tobacco user Tobacco use type: Cigarette e-Cigarette/Vaping Use: Former Use Second Hand Smoke Exposure: No Substance Use Type: Marijuana Advance Directives Date on File: 06/15/22 service: No Current occupational status: unemployed Gender identity: Female Cognitive needs: No Hearing needs: No Vision needs: Yes (glasses) Female Reproductive History Menstrual Age of Menarche: 12 Review of Systems Const Reports no additional complaints Eyes Reports no additional complaints ENT Reports no additional complaints Card Reports as per HPI Resp Reports no additional complaints GI Reports as per HPI Reports as per HPI Musc Reports as per HPI Neuro Reports no additional complaints Psych Reports as per HPI Endo Reports no additional complaints Physical Exam Const General: cooperative, healthy appearing, comfortable, no acute distress, well developed, alert and awake Nutritional Appearance: overweight Orientation/consciousness: patient oriented x3 Limitations: no limitations HEENT Head: Yes normal to inspection, Yes normocephalic and Yes atraumatic Ears: hearing grossly normal bilaterally Eyes General: appearance normal, both eyes and all related structures Neck Neck: Yes normal visual inspection and Yes trachea midline Chest Chest palpation & inspection: normal inspection of the chest Resp Effort & Inspection: normal respiratory effort and able to speak in complete sentences Cardio Rate: regular rate GI Inspection: Yes normal to inspection General: Yes no CVA tenderness Back/Spine/Pelvis Back: no CVA tenderness Skin General skin exam: no rashes or lesions noted Neuro General: patient oriented x3 Extrem General: Yes normal to inspection Psych Appearance: grossly normal and well kempt Mental Status: mental status grossly normal Speech and movement: Normal speech and movement present and Clear speech present Affect: normal affect Attitude: cooperative Thought process: Normal thought process present Thought content: Normal thought content present Insight: Fair insight present (Psych) Judgement: Fair judgement present (Psych) Results Reviewed Results Reviewed: Date of Service: 08/25/24 EXAMINATION: MR ABDOMEN WITHOUT AND WITH CONTRAST FINDINGS: Submitted for interpretation on October 09, 2024. Limited by patient's motion artifact. Blurred contrast-enhanced coronal sequences and to a lesser extent in the axial enhancing sequences. LIVER, GALLBLADDER, AND BILIARY TREE: Liver measures 16 cm. No focal enhancing lesion. The main portal veins, hepatic veins and intrahepatic portion of the IVC are patent. No intrahepatic or extrahepatic biliary ductal dilatation. Fluid-filled gallbladder without pericholecystic fluid collection or gallbladder wall thickening. PANCREAS: No focal pancreatic mass. No peripancreatic fluid collection. No main pancreatic ductal dilatation. SPLEEN: 9 cm. No focal mass. ADRENAL GLANDS: There is a 10 mm nodular lesion with drop of the signal from the in and out of phase centimeter in the left adrenal gland. No nodular lesions in the right adrenal gland. KIDNEYS AND URETERS: Right kidney: There is a 1.3 x 1.1 cm , hypointense T1 and hyperintense T2 with a peripheral hypointense T2 wall, septated enhancing lesion at the corticomedullary junction of the posterior midportion/lower pole junction. There is a cortical defect in the posterior midportion. There is no delayed sequences demonstrated contrast within the collecting system. No hydronephrosis. The main renal vessels are patent. No perinephric/pararenal compartment mass or lymphadenopathy. Left kidney: No enhancing renal mass. No hydronephrosis. No lesions in the perirenal/pararenal compartment. Main renal vessels are patent. GASTROINTESTINAL TRACT: No intestinal obstruction pattern. No ascites. ABDOMINAL WALL: Fat-containing umbilical hernia, small. LYMPH NODES: No lymphadenopathy in the retroperitoneum or mesentery and. VASCULAR: No aneurysm or dissection, abdominal aorta. OSSEOUS STRUCTURES: Multilevel thoracolumbar spondylosis more conspicuous at T12-L1 with a central and right subarticular disc herniation with the likely cephalad migration beneath the posterior longitudinal ligament abutting the cord. Grade 1 anterolisthesis L4-5 resulting in central spinal canal stenosis. 1.5 cm dominant follicle, right adnexa and 1.3 cm dominant follicle in the left adnexa. IMPRESSION: Bosniak type III lesion, right kidney. Assessment & Plan Assessment & Plan (1) Right renal mass: Code(s): N28.89 - Other specified disorders of kidney and ureter Category: Medical (2) Stress incontinence: Code(s): N39.3 - Stress incontinence (female) (male) Category: Medical (3) Coital incontinence: Code(s): N39.491 - Coital incontinence Category: Medical Plan In office urinalysis results reviewed with the patient today; as noted above. Recent MRI results reviewed with the patient today; discussed likely cryo affect will continue with surveillance monitoring at this time. Continue pelvic floor therapy as discussed and prescribed. She currently denies any bothersome urinary issues. She denies any UTI like symptoms. Will obtain MRI in 6 months. Follow-up in 6 months with imaging to be completed prior; or sooner with any issues, concerns, and or questions. Orders: Orders MR kidney wo/w con 6 Months N28.89 - Other specified disorders of kidney and ureter Patient Instructions: The patient had an opportunity to ask questions regarding the treatment plan. All questions were answered. Physical exam, labs, and imaging were discussed and reviewed in detail. As well as risks, benefits, and discussion of treatment choices. No major barriers to understanding were identified. The patient expressed understanding and agreement with the above treatment plan. The patient was made aware they should contact our office by phone for worsening of their current condition, the appearance of new symptoms, or with any questions or concerns. Compliance is encouraged with any medications and follow up testing that is ordered. It is a privilege to be allowed the opportunity to participate in? your urological care.? Again, if you have any questions or concerns If you have any questions or concerns please do not hesitate to contact me. The office is [phone]. This note is constructed using voice recognition software. While every effort has been made to ensure accuracy handle turner errors may have been included. Yours sincerely, STEPHANIE Mir Coding Level of Care Code Est Pt Level 3 (47265) Diagnoses Right renal mass N28.89 Stress incontinence N39.3 Coital incontinence N39.491
== END 2024-10-13 14:10 | disposition home or self-care (01) ==
PROVIDERS: PCP Internal Medicine; Visit Provider Nurse Practitioner Family
DX: N28.89 Other specified disorders of kidney and ureter (principal); N39.3 Stress incontinence (female) (male); N00-N99 Diseases of the genitourinary system
CPT/HCPCS: 99213

== ENCOUNTER → 2024-10-13 13:38 | Outpatient (BNVA) | payer OTHER, SELFPAY | PROVIDERS: PCP Internal Medicine; Visit Provider Nurse Practitioner Family | DX: N28.89 Other specified disorders of kidney and ureter (principal); N39.3 Stress incontinence (female) (male); N00-N99 Diseases of the genitourinary system | CPT/HCPCS: 99212 ==

== ENCOUNTER 2024-10-27 13:05 | Outpatient (AMB) | payer OTHER, SELFPAY ==
--- NOTE | 2024-10-27 13:07 | A.OFFPC_ITS ---
Vital Signs 10/27/24 13:08 Height 5 ft 5 in Weight 151 lb 8 oz BMI 25.2 BP 130/70 Blood Pressure Location Lt brachial Position Sitting Pulse 107 H Pulse Source Pulse Oximeter Pulse Oximetry (%) 96 Oxygen Delivery Method Room Air Intake Visit Reasons: Sores and itchiness on forearms Intake Note: Patient is here to follow up on rash, itchiness, redness on forearms ongoing for two. OTC creams not helping. Pt decline flu shot today. Mandarin Tutor Required: No Physician Interventional Cardiologist: Not Required per policy Accompanied by: Self / Same As Patient Allergies meperidine [From Demerol] Allergy (Severe, Verified 10/27/24 13:08) SWELLING,RASH,THROAT CLOSES latex [LATEX] Allergy (Mild, Verified 10/27/24 13:08) RASH codeine [Codeine] Adverse Reaction (Intermediate, Verified 10/27/24 13:08) NAUSEA/VOMITING, GI upset/vomiting duloxetine Adverse Reaction (Intermediate, Verified 10/27/24 13:08) headaches trazodone Adverse Reaction (Mild, Verified 10/27/24 13:08) Anxiety Fish Containing Products [Fish Product Derivatives] Adverse Reaction (Unknown, Verified 10/27/24 13:08) NAUSEA/VOMITING bupropion Adverse Reaction (Intermediate, Uncoded 10/27/24 13:08) increased headaches Tobacco use date assessed: 10/27/24 Dental Screening Dental Screen Date: 08/11/24 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 Surgical History Hx of colonoscopy History of esophagogastroduodenoscopy (EGD) History of removal of calculus of renal pelvis through percutaneous nephrostomy (~10/2015) History of cryosurgery (~04/20/15) History of intestinal surgery History of arthroplasty (~01/2012) Family History Father Crohn disease Migraine Cancer Mother HTN (hypertension) Vertigo Cervical cancer Maternal Grandmother HTN (hypertension) Hyperlipidemia Diabetes mellitus Paternal Grandmother Diabetes mellitus Other Mental health problem Social History Household Members: Family Housing: House Do you presently have visiting nurse or other home services: No Unable to assess alcohol history related to: Unable to respond Alcohol intake: current Alcohol intake frequency: holidays/special occasions only Patient Tobacco Use Status: Former Tobacco user Tobacco use type: Cigarette e-Cigarette/Vaping Use: Former Use Second Hand Smoke Exposure: Yes Substance Use Type: Marijuana Advance Directives Date on File: 06/15/22 service: No Current occupational status: unemployed Gender identity: Female Cognitive needs: No Hearing needs: No Vision needs: Yes (glasses) Female Reproductive History Menstrual Age of Menarche: 12 Questionnaire Thrive Questionnaire Date Thrive assessed: 06/07/24 Are you currently unemployed and looking for a job?: I choose not to answer this question AUDIT C Alcohol Use Questionnaire (AUDIT-C) 2. How many drinks containing alcohol do you have on a typical day when you are drinking?: 1 or 2 3. How often do you have six or more drinks on one occasion?: Never Total Score: 0 MONTSE-7 AMB Questionnaire MONTSE-7 Date MONTSE - 7 assessed: 01/16/24 Source: Developed by Drs. Matthew Hernandez, Starr Jiménez, Billy Somers and colleagues, with an educational paxton from [employer]. Physical exam (Primary Care) Vital Signs: Last Vital Signs Pulse 107 H 10/27/24 13:08 BP 130/70 10/27/24 13:08 Pulse Ox 96 10/27/24 13:08 Oxygen Delivery Method Room Air 10/27/24 13:08 BMI result Body Mass Index 25.2 Tobacco/Smoking Status: Tobacco use Status Tobacco use date assessed 10/27/24 10/27/24 13:08 Patient Tobacco Use Status Former Tobacco user 10/27/24 13:08 Tobacco use type Cigarette 10/27/24 13:08 e-Cigarette/Vaping Use Former Use 10/27/24 13:08 Thrive Assessment: Date of Thrive Assessment Date Thrive assessed 06/07/24 10/27/24 13:08 Coding Level of Care Code Est Pt Level 3 (32572) Complex EM visit Add On G2211 Diagnoses Rash R21 Assessment & Plan Assessment & Plan (1) Rash: Code(s): R21 - Rash and other nonspecific skin eruption Plan: See below Plan History of Present Illness The patient is a 49-year-old female presenting with a rash on the forearms. She reported the rash first appeared approximately two and a half weeks ago and is notable for its bumpy texture. The rash is confined to her forearms with one side worse than the other and is not consistent with eczema, despite applying lotion intended for eczema. 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 The rash has not improved significantly with current non-prescription treatments, including goat's milk soap, which she uses for someone in her household. She expressed concern about the rash being related to sexually transmitted infections (STIs) but denies multiple sexual partners. There is a history of Crohn's disease managed with Infliximab infusions. Social History - Reports being in a monogamous relationship but has concerns about her partner's fidelity. - No current use of prescribed medications for the rash other than [id number] remedies like goat's milk soap. Review of Systems - Dermatologic: Reports rash on forearms. - General: Denies recent flu vaccination. - Gastrointestinal: Denies current Crohn's disease flare. - Immune: Reports use of immune suppressant infusion therapy. Physical Exam General: Cooperative and healthy appearing Nutritional Appearance: Well nourished Orientation/consciousness: Patient oriented x3 Limitations: No limitations Head: Normal to inspection General: Appearance normal, both eyes and all related structures Neck: Normal visual inspection Chest: Normal palpation of entire chest wall Respiratory: Normal respiratory effort Neurology: Patient oriented x3 Skin: Forearms: erythematous rash, discrete papules over thickened skin, on both forearms Results Plan 1. Irritant Dermatitis: - Prescribe a topical cream for twice-daily application. - Advise the use of drying agents like powder post-application to maintain dry skin conditions. 2. Crohn's Disease: - Continue with current management involving Infliximab infusions. Patient was informed and verbally consented to the use of an ambient scribe for clinic note documentation during this visit. Discussion Notes I reassured the patient that her forearm rash is consistent with irritant dermatitis rather than any sexually transmitted infection. We discussed that the rash is likely a seasonal dermatitis and should improve with the prescribed medications. We agreed to start a short course of prednisone and a topical cream to manage the rash, and I emphasized the importance of keeping the skin dry. I also offered STI screening tests for peace of mind, but the patient declined after reassurance of the rash's benign nature. We reviewed her Crohn's disease management, including her recent infusion, and confirmed there is no need for concern regarding her current treatment plan. Patient Instructions - Take the prescribed prednisone for three days as directed. - Apply the topical cream twice daily to the affected areas. - Use a drying agent, such as powder, after applying the cream to keep the skin dry. - Monitor for improvement in the rash and return if symptoms persist or worsen. - Ensure to maintain up-to-date vaccinations, such as the flu shot, unless contraindicated due to Crohn's disease treatment. Medications: New prednisone 60 mg (3 x 20 mg) PO DAILY 9 tabs 0RF triamcinolone acetonide 0.025% 1 appl topical BID 15 grams 0RF
[2024-10-27 13:08] VITALS: BP 130/70; PULSE 107; O2SAT 96; BMI 25.2
--- OUTSIDE RECORDS SUMMARY | 2024-10-28 21:23 | XMS_ITS ---
Author Organization [facility] Address [address] [place] [address] Care Team Providers Care Wholesale Account Manager Name Role Phone Zac COOLEY, [place] Primary Care Provider UnaMatthew Garcia Unavailable [phone] ALLERGIES Allergen (clinical drug ingredient) Drug/Non Drug Allergy documented on EMR Reaction Allergy Type Onset Date Status trazodone Trazodone HCl Unknown Drug Allergy Act manolo Latex latex (uncoded) Unknown Allergy Acti ve codeine codeine (uncoded) Unknown Allergy Ac tive meperidine demerol (uncoded) Unknown Allergy A ctive RESULTS Component Value Reference Range Notes Ferritin Reviewed date:09/29/2024 05:30:44 PM Interpretation: Performing Lab:[facility], [address] [place] [phone] Notes/Report: Ferritin 29 10-250 ng/mL Lipase Reviewed date:09/29/2024 05:30:19 PM Interpretation: Performing Lab:[facility], [address] [place] [phone] Notes/Report: Lipase 11 8-78 U/L Vitamin D 25-OH Total Reviewed date:10/01/2024 07:52:53 PM Interpretation: Performing Lab:[address] [phone] Notes/Report: Vitamin D 25-OH Total 28.6 >30 ng/mL Health Based Reference Values* < 20 ng/mL Deficient 20-30 ng/mL Insufficient > 30 ng/mL Sufficient *Damir FISHER. N Engl J Med. 2007;357:266-280 Care must be taken in interpreting Vitamin D results from different laboratories and methodologies. Published data demonstrated that results from patients undergoing hemodialysis may show a negative bias when tested with various automated 25-OH vitamin D assays when compared to LC-MS/MS. When testing samples from patients whose predominant form of Vitamin D is Vitamin D2, such as patients receiving Vitamin D2 supplementation, results that are subtherapeutic should be confirmed with another method such as LC-MS/MS. TSH reflex Free T4 Reviewed date:09/29/2024 05:30:27 PM Interpretation: Performing Lab:[facility], [address] [place] [phone] Notes/Report: TSH reflex Free T4 0.48 0.32-4.0 uIU/mL REASON FOR VISIT Patient presents today for crohn's MEDICATIONS Medication SIG (Take, Route, Frequency, Duration) Notes Start Date End Date Status levoFLOXacin 500 MG 1 tablet Orally Once a day for 10 day(s) 01/16/2023 Not-Taking Budesonide 3 MG TAKE 3 CAPSULES BY MOUTH ONCE DAILY for 90 Not-Taking Omeprazole 20 MG TAKE 1 CAPSULE BY MOUTH EVERY DAY IN THE MORNING for 90 Not-Taking Entocort EC 3 MG 3 capsules Orally Once a day for 30 Not-Taking metroNIDAZOLE 500 MG 1 tablet Orally Three times a day for 10 day(s) 01/16/2023 Not-Taking busPIRone HCl 15 MG 1 tablet Orally Twice a day Not-Taking Ondansetron HCl 4 MG TAKE 1 TABLET BY MOUTH EVERY 6 HOURS NEEDED FOR NAUSEA 7 for 8 Active Dicyclomine HCl 10 MG TAKE 1 TO 2 CAPSULES BY MOUTH 30 MINUTES BEFORE MEAL AND AT BEDTIME ( 4 TIMES A DAY) 25 for 25 Active Mesalamine ER 500 MG TAKE 2 CAPSULES BY MOUTH 4 TIMES A DAY for 90 Active Ondansetron 4 MG DISSOLVE 1 TABLET BY MOUTH ON THE TONGUE EVERY 6 HOURS NEEDED FOR NAUSEA for 10 Active Dicyclomine HCl Acti ve Propranolol HCl Acti ve Cholestyramine 4 GM/DOSE DISSOLVE 1/2 TO 1 SCOOP IN A GLASS OF ORANGE JUICE OR WATER AND DRINK ONCE OR TWICE A DAY FOR DIARRHEA for 90 Not daily Active Omeprazole 40 MG TAKE 1 CAPSULE BY MOUTH EVERY DAY IN THE MORNING for 90 Active Entyvio Started 03/08/2022--incr eased to Q 4 weeks in 08/2022. This was changed to 2 every 6 weeks in May of 2024. Active Eszopiclone For insomnia Activ e Excedrin Extra Strength 250-250-65 MG 2 tablets Orally prn PRN Active traMADol HCl 50 MG as directed Orally prn Active cloNIDine HCl 0.1 MG as directed Orally up to 3 times a day Active Diphenoxylate-Atropine 2.5-0.025 MG use 1 or 2 tablets Orally Every 6 hours as needed for diarrhea for 30 days 09/25/2024 Active PROBLEMS Problem Type ICD Code Onset Dates Problem Status W/U Status Risk SNOMED Code Notes Problem Other fatigue (R53.83) Active confirmed Fatigue (27178213) VITAL SIGNS BMI 26.79 kg/m2 09/25/2024 Blood pressure systolic 000 mm Hg 09/25/20 24 Blood pressure diastolic 00 mm Hg 024 Height 62 in 09/25/2024 Temperature 97.5 degrees Fahrenheit 09/25/20 24 Weight 146 lb 8 oz lbs 09/25/2024 Encounters Encounter Location Date Provider Diagnosis [facility] [address] [place] [address] 09/25/2024 Matthew Alexis Crohns disease of ruthy th small and large intestine without complication K50.80 ; Nausea R11.0 ; Diarrhea R19.7 and Other fatigue R53.83 ASSESSMENTS Encounter Date Diagnosis Assessment Notes Treatment Notes Treatment Clinical Notes 09/25/2024 Crohns disease of both small and large intestine without complication (ICD-10 - K50.80) 09/25/2024 Nausea (ICD-10 - R11.0) 09/25/2024 Diarrhea (ICD-10 - R19.7) 09/25/2024 Other fatigue (ICD-10 - R53.83) PLAN OF TREATMENT Medication Medication Name Sig Start Date Stop Date Notes Diphenoxylate-Atropine 2.5-0.025 MG use 1 or 2 tablets Orally Every 6 hours as needed for diarrhea for 30 days 09/25/2024 Pending Test Test Name Order Date CHEM 7 PROFILE 09/25/2024 LIVER PROFILE 09/25/2024 IRON + IBC (FE) 09/25/2024 CRP 09/25/2024 VITAMIN B12 AND FOLATE 09/25/2024 CBC w DIFF 09/25/2024 SED RATE (ESR) 09/25/2024 STOOL WBC 09/25/2024 C DIFFICILE RFLX PCR 09/25/2024 Calcium 09/25/2024 Prometheus Anser VDZ 09/25/2024 Giardia Ag Stool EIA 09/25/2024 Calprotectin, Fecal 09/25/2024 Ova and Parasite 09/25/2024 GI PANEL 09/25/2024 Next Appt Details Follow Up: 6 Months, Reason: Provider Name:Matthew Alexis , 03/25/2025 10:00:00 AM, [address], [address], [place], [address], Progress Notes * Examination Category Sub-Category Detail Notes General Examination GENERAL APPEARANCE: pleasant , well nourished, well developed, in no acute distress EYES: sclera non-icteric NECK/THYROID: no cervical lymphade nopathy, neck supple HEART: S1, S2 normal LUNGS: clear to auscultatio n bilaterally ABDOMEN: Normal bowel sounds, no guarding or rigidity,no hepatosplenomegaly,no masses palpable,soft, nondistended. She does have some slight tenderness to palpation in the suprapubic area and periumbilical area, but without any rebound. She also has some tenderness in the left lower quadrant but again without any mass, rebound, nor guarding NEUROLOGIC: alert and oriented SKIN: nonjaundiced, no spi davie angiomata. EXTREMITIES: No signs of erythema nodosum RECTAL EXAM: ORAL CAVITY: mucosa moist
--- OUTSIDE RECORDS SUMMARY | 2024-10-28 21:23 | XMS_ITS ---
Author Organization [facility] Address [address] [place] [address] Care Team Providers Care Hazmat Tanker Driver Name Role Phone Zac COOLEY, [place] Primary Care Provider Unava Matthew Arreola Unavailable [phone] REASON FOR VISIT pt needs order for ativan for tomorrows infusion Encounters Encounter Location Date Provider Diagnosis [facility] [address] [place] [address] [address] [place] [address] 10/20/2024 Matthew Alexis PLAN OF TREATMENT Next Appt Details Provider Name:Matthew Alexis , 03/25/2025 10:00:00 AM, [address], [address], [place], [address],
--- OUTSIDE RECORDS SUMMARY | 2024-10-28 21:23 | XMS_ITS ---
Author Organization [facility] Address [address] [place] [address] Care Team Providers Care Die Keeper Name Role Phone Zac COOLEY, [place] Primary Care Provider Unava ilable Matthew Alexis Unavailable [phone] REASON FOR VISIT fatigued/no appitite Encounters Encounter Location Date Provider Diagnosis [facility] [address] [place] [address] [address] [place] [address] 09/18/2024 Matthew Alexis PLAN OF TREATMENT Next Appt Details Provider Name:Matthew Alexis , 03/25/2025 10:00:00 AM, [address], [address], [place], [address],
--- OUTSIDE RECORDS SUMMARY | 2024-10-28 21:24 | XMS_ITS | Continuity of Care Document ---
Author Organization [facility] [place] [facility] Address [address] [place] [phone] Care Team Providers Care Child Guidance Counselor Name Role Phone HIM [facility] OTHER Assessment No assessment recorded. Plan of Treatment Reminders Order Date Submit Date Provider Last Modified By Organization Details Last Modified Time Details Appointments None recorded . Lab None recorded . Referral None recorded . Procedures None recorded . Surgeries None recorded . Imaging None recorded . Medication Orders ondanset kenny 4 mg disinteg rating tablet 2023 024 csocolovsky Not available 22:44:38 Patient TargetsNo targets recorded. Patient InstructionsNo instructions recorded. Reason for Referral None Reported. Medical Equipment None Reported. Allergies Allergen ID Allergen Name Allergen Category Reaction Reaction Severity Criticality Documentation Date Start Date Code Code System Note Provider Name and Address Organization Details Recorded Time 8939 latex environme nt,medica tion Not available Not available Not available 09/15/2024 90275 91 RxNorm Not Available [facility] 4 03:47:51 8940 trazodone medicatio n Not available Not available Not available 09/15/2024 98962 RxNorm Not Available [facility] 4 03:47:51 Medications Name Sig Start Date Stop Date Status Note LastModified by Organization Details LastModified Time clonidine HCl 0.1 mg tablet TAKE 1 TABLET BY MOUTH THREE TIMES A DAY NEEDED FOR FOR ANXIETY active Not Available Not Available No t Available prednisone 10 mg tablet active Not Available Not Available Not Available loperamide 2 mg capsule TAKE 1 CAPSULE BY MOUTH EVERY 4 HOURS NEEDED FOR DIARRHEA active Not Available Not Available No t Available fluconazole 150 mg tablet TAKE 1 TABLET ORALLY DAILY FOR 1 DOSE ADMINISTER ON DAY 1 OF THERAPY active Not Available Not Available No t Available ondansetron HCl 4 mg tablet TAKE 1 TABLET BY MOUTH EVERY 6 HOURS NEEDED FOR NAUSEA active Not Available Not Available No t Available prednisone 5 mg tablet PLEASE SEE ATTACHED FOR DETAILED DIRECTIONS active Not Available Not Available N ot Available sumatriptan 50 mg tablet TAKE 1 TABLET ORALLY DAILY, MAY REPEAT X 1 NEEDED FOR MIGRAINE HEADACHE active Not Available Not Available No t Available metronidazol e 500 mg tablet TAKE 1 TABLET BY MOUTH EVERY 8 HOURS active Not Available Not Available No t Available omeprazole 40 mg capsule,heather yed release TAKE 1 CAPSULE BY MOUTH EVERY DAY IN THE MORNING active Not Available Not Available No t Available tramadol 50 mg tablet TAKE 1 TABLET BY MOUTH 3 TIMES DAILY NEEDED FOR PAIN active Not Available Not Available No t Available lorazepam 0.5 mg tablet TAKE 2 TABS ONE TO TWO TIMES A DAY ONLY NEEDED FOR INCREASED ANXIETY active Not Available Not Available No t Available nitrofuranto in macrocrystal 100 mg capsule TAKE 1 CAPSULE BY MOUTH 2 TIMES A DAY FOR 14 DAYS MUST ADMINISTER WITH A MEAL/FOOD active Not Available Not Available No t Available buspirone 7.5 mg tablet active Not Available Not Available Not Available omeprazole 20 mg capsule,heather yed release TAKE 1 CAPSULE BY MOUTH EVERY DAY IN THE MORNING active Not Available Not Available No t Available Promethegan 25 mg rectal suppository INSERT 1 SUPPOSITORY RECTALLY EVERY 6 HOURS NEEDED FOR NAUSEA VOMITING active Not Available Not Available No t Available lorazepam 1 mg tablet TAKE 1 TABLET BY MOUTH 3 TIMES A DAY FOR ANXIETY FOR 30 DAYS active Not Available Not Available Not Available budesonide DR - ER 3 mg capsule,heather yed,extended release TAKE 3 CAPSULES BY MOUTH ONCE DAILY active Not Available Not Available No t Available cefuroxime axetil 500 mg tablet TAKE 1 TABLET BY MOUTH TWICE A DAY active Not Available Not Available No t Available morphine 15 mg immediate release tablet TAKE 1 TABLET BY MOUTH EVERY 6 HOURS NEEDED FOR PAIN ,HOLD TRAMADOL WHILE TAKING THIS MEDICATION active Not Available Not Available N ot Available ondansetron 4 mg disintegrati ng tablet DISSOLVE 1 TABLET BY MOUTH ON THE TONGUE EVERY 6 HOURS NEEDED FOR NAUSEA active Not Available Not Available No t Available dicyclomine 10 mg capsule TAKE 1 TO 2 CAPSULES BY MOUTH 30 MINUTES BEFORE MEALS AND AT BEDTIME (4 TIMES A DAY) active Not Available Not Available No t Available metocloprami de 10 mg tablet TAKE 1 TABLET ORALLY EVERY 6 HOURS NEEDED FOR NAUSEA AND VOMITING active Not Available Not Available No t Available amoxicillin 875 mg-potassium clavulanate 125 mg tablet TAKE 1 TABLET BY MOUTH THREE TIMES A DAY active Not Available Not Available Not Available cholestyrami ne (with sugar) 4 gram oral powder PLEASE SEE ATTACHED FOR DETAILED DIRECTIONS active Not Available Not Available N ot Available bupropion HCl XL 150 mg 24 hr tablet, extended release TAKE 1 TABLET BY MOUTH EVERY MORNING active Not Available Not Available No t Available duloxetine 30 mg capsule,heather yed release TAKE 1 CAPSULE BY MOUTH TWICE A DAY active Not Available Not Available No t Available mesalamine ER 500 mg capsule,exte nded release TAKE 2 CAPSULES BY MOUTH 4 TIMES A DAY active Not Available Not Available Not Available zolpidem ER 12.5 mg tablet,exten ded release,mult iphase TAKE 1 TABLET BY MOUTH EVERY DAY AT BEDTIME NEEDED INSOMNIA active Not Available Not Available No t Available Vitals Date Recorded Oxygen saturation Oxygen saturation in Arterial blood by Pulse oximetry Heart rate Respiratory rate Body weight Body temperature Systolic blood pressure Diastolic blood pressure Provider Name and Address Organization Details Last Updated DateTime 4 98 % 98 % 94 /min 18 /min 73089.8 g 99.8 [degF] 164 mm[Hg] 84 mm[Hg] Not Available [facility] 4 10:44:46 Social History None recorded. Functional Status None recorded. Mental Status None recorded. Family History Nothing Reported. Medical History No medical history recorded. Gynecological HistoryNo gynecological history recorded. Obstetrics History GPAL:G 0 P 0 0 0 0 Past Encounters Encounter ID Performer Location Encounter Start Date Encounter Closed Date Diagnosis/Indication Diagnosis SNOMED-CT Code Diagnosis ICD10 Code [id number] Zoraida Schwartz MD [facility] [address] [place] [phone] 08/21/2024 10:44:42 08/24/2024 12:31:05 Nausea and vomiting 16353565 R11.2 Health Concerns Section Related Observation LastModified by Organization Detai ls LastModified Time None Recorded Concern Status LastModified by Organization Details LastModified Time None Recorded Payers Encounter Date Sequence Insurance Name Policy Number Policy Tristan Covered Member ID Tristan Member ID Guarantor Name 08/21/2024 1 [facility] - DOS ON OR AFTER 2023 - DUAL ELIGIBLE - [employer] OPT[employer] AND ONE [employer] (MEDICARE REPLACEMENT/ADV ANTAGE - HMO) Gabi Perales [id number] Gabi Atkinsll Notes Date Note Type Note Provider Name and Address Organization Details Recorded Time 08/21/2024 text/html HPI: Member with HX of Chron's, diverticulosis, GERD, anxiety, migraines calling in with c/o feeling dehydrated. Has been having nausea and vomiting for the past 2 days. Member states her lips are dry and cracked, also has s/o muscle spasms. Member with HX of having these exacerbations and usually just gets IV fluids and nausea medication in the ER. ................... ................... ................... ................... ................... ................... ................... ........ [facility] Nurse Triage Notes (Gretel Jameson): Chief Complaints: Dehydration, Nausea/Vomiting Allergies: Latex, Trazodone Other Allergies: Codeine, demerol, buproprion Comments: [facility] RN DID NOT NEED FURTHER INFO ................... ................... ................... ................... ................... ................... ................... ........ Manager Portable Note From Roni Herring: Pt co nausea and thinks she is dehydrated and having anxiety and emotional. Upon arrival pt was crying and anxious. Pt denies vomiting but sts had soft stool. Pt sts did not take her anxiety meds due to thinking she would vomit them back up. Pt denies cp,sob, abdominal pain, dizziness or headache. Baseline vitals assessed, WNL, abdomen soft non tender, neg skin tenting, pt had normal color. [facility] contacted and advised IV fluids and zofran 4mg SL. Unable to establish IV due to poor vasculature x2 attempts. Pt advised to drink fluids and monitor symptoms. Coached pt on ways to help combat anxiety. Pt took a lorazepam and had some yogurt during visit. Pt calmed down significantly. Pt was very appreciative. Pt education on signs indicating the ER. Pt advised to follow up with pcp if symptoms persist. ................... ................... ................... ................... ................... ................... ................... ........ Disposition: Fulfilled Zoraida Schwartz MD [address] [facility],[address], [place], [phone], [facility] 08/21/2024 22:44:48 OBGyn Episode No OBEpisode recorded.
--- OUTSIDE RECORDS SUMMARY | 2024-10-28 21:24 | XMS_ITS | Patient Health Record ---
Author Organization [facility] Address [address] [place] [address] Care Team Providers Care Slurry Mixer Name Role Phone Jaswnat Frank MD Primary Care Provider Matthew Manrique Unavailable [phone] ALLERGIES Allergen (clinical drug ingredient) Drug/Non Drug Allergy documented on EMR Reaction Allergy Type Onset Date Status trazodone Trazodone HCl Unknown Drug Allergy Act manolo Latex latex (uncoded) Unknown Allergy Acti ve codeine codeine (uncoded) Unknown Allergy Ac tive meperidine demerol (uncoded) Unknown Allergy A ctive RESULTS Component Value Reference Range Notes MR abdomen wo/w con Reviewed date:12/01/2023 07:17:59 PM Interpretation: Performing Lab: Notes/Report: [address] [address] Magnetic Resonance Report Signed Patient: Gabi Perales MR#: [id number] 25 : 1975 Acct:[id number] Age/Sex: 48 / F ADM Date: 11/19/23 Loc: HO.MRI Attending Dr: Matthew Alexis MD Ordering Physician: Matthew Alexis Date of Service: 11/19/23 Procedure(s): MR abdomen wo/w con Accession Number(s): [id number] cc: Jaswant Frank MD; Matthew Alexis EXAMINATION: MR ABDOMEN AND PELVIS WITHOUT AND WITH CONTRAST CLINICAL INFORMATION: Crohn's disease in the small bowel with intestinal obstruction COMPARISON: CT abdomen and pelvis 08/21/2023 TECHNIQUE: MRI of the abdomen and pelvis before and after the IV administration of 8.5 mL of Gadavist was obtained using routine sequences. FINDINGS: LUNG BASES: Unremarkable. ABDOMINAL AND PELVIC WALL: Moderate fat-containing umbilical hernia. LIVER AND BILIARY TREE: Unremarkable. GALLBLADDER: Unremarkable. PANCREAS: Unremarkable. SPLEEN: Unremarkable. ADRENAL GLANDS: Unremarkable. KIDNEYS AND URETERS: Bosniak 1 benign-appearing bilateral renal cysts, no imaging follow-up recommended. GASTROINTESTINAL TRACT: Stomach is well distended without wall thickening hyperenhancement or ulceration. The terminal ileum demonstrates transmural hyperenhancement and mild wall thickening measuring approximately 4.8 cm in span, previously 5.1 cm in span with degree of wall thickening slightly decreased from prior. Terminal ileum is decompressed across all sequences suggesting probable underlying inflammatory stricture. No dilation of small bowel to suggest obstruction. Colonic diverticulosis, most notably in the sigmoid colon which is mildly thick-walled similar to prior though without hyperenhancement or pericolonic inflammatory stranding. No perianal inflammatory changes appreciated within the limitations of the exam. No pericolonic abscess or evidence of fistula. VASCULAR: Unremarkable. LYMPH NODES/PERITONEUM: No lymphadenopathy. FREE FLUID: None. BLADDER: Unremarkable. PELVIC VISCERA: Intrauterine device in place. OSSEOUS STRUCTURES: Multilevel degenerative disc disease. Susceptibility artifact from right hip ORIF. MR/MR abdomen wo/w con IMPRESSION: 1. The terminal ileum demonstrates transmural hyperenhancement and mild wall thickening measuring approximately 4.8 cm in span, previously 5.1 cm with degree of wall thickening slightly decreased from prior, suggesting improved active inflammatory bowel disease. Terminal ileum is decompressed across all sequences suggesting probable underlying inflammatory stricture. No dilation of small bowel to suggest obstruction. 2. Colonic diverticulosis, most notably in the sigmoid colon which is mildly thick-walled similar to prior though without hyperenhancement or pericolonic inflammatory stranding, possibly reflective of sequelae of chronic muscular hypertrophy, though an additional site of inflammation cannot be excluded. Dictated By: Berenice Alva MD Signed By: <Electronically signed by Berenice Alva MD in OV> 11/25/23 1344 DD/ 1143 TD/TT: Flying Teacher: MR pelvis wo/w con Reviewed date:11/25/2023 10:42:17 PM Interpretation: Performing Lab: Notes/Report: [address] [address] Magnetic Resonance Report Signed Patient: Gabi Perales MR#: [id number] 25 : 1975 Acct:[id number] Age/Sex: 48 / F ADM Date: 11/19/23 Loc: HO.MRI Attending Dr: Matthew Alexis MD Ordering Physician: Matthew Alexis Date of Service: 11/19/23 Procedure(s): MR pelvis wo/w con Accession Number(s): [id number] cc: Jaswant Frank MD; Matthew Alexis EXAMINATION: MR ABDOMEN AND PELVIS WITHOUT AND WITH CONTRAST CLINICAL INFORMATION: Crohn's disease in the small bowel with intestinal obstruction COMPARISON: CT abdomen and pelvis 08/21/2023 TECHNIQUE: MRI of the abdomen and pelvis before and after the IV administration of 8.5 mL of Gadavist was obtained using routine sequences. FINDINGS: LUNG BASES: Unremarkable. ABDOMINAL AND PELVIC WALL: Moderate fat-containing umbilical hernia. LIVER AND BILIARY TREE: Unremarkable. GALLBLADDER: Unremarkable. PANCREAS: Unremarkable. SPLEEN: Unremarkable. ADRENAL GLANDS: Unremarkable. KIDNEYS AND URETERS: Bosniak 1 benign-appearing bilateral renal cysts, no imaging follow-up recommended. GASTROINTESTINAL TRACT: Stomach is well distended without wall thickening hyperenhancement or ulceration. The terminal ileum demonstrates transmural hyperenhancement and mild wall thickening measuring approximately 4.8 cm in span, previously 5.1 cm in span with degree of wall thickening slightly decreased from prior. Terminal ileum is decompressed across all sequences suggesting probable underlying inflammatory stricture. No dilation of small bowel to suggest obstruction. Colonic diverticulosis, most notably in the sigmoid colon which is mildly thick-walled similar to prior though without hyperenhancement or pericolonic inflammatory stranding. No perianal inflammatory changes appreciated within the limitations of the exam. No pericolonic abscess or evidence of fistula. VASCULAR: Unremarkable. LYMPH NODES/PERITONEUM: No lymphadenopathy. FREE FLUID: None. BLADDER: Unremarkable. PELVIC VISCERA: Intrauterine device in place. OSSEOUS STRUCTURES: Multilevel degenerative disc disease. Susceptibility artifact from right hip ORIF. MR/MR pelvis wo/w con IMPRESSION: 1. The terminal ileum demonstrates transmural hyperenhancement and mild wall thickening measuring approximately 4.8 cm in span, previously 5.1 cm with degree of wall thickening slightly decreased from prior, suggesting improved active inflammatory bowel disease. Terminal ileum is decompressed across all sequences suggesting probable underlying inflammatory stricture. No dilation of small bowel to suggest obstruction. 2. Colonic diverticulosis, most notably in the sigmoid colon which is mildly thick-walled similar to prior though without hyperenhancement or pericolonic inflammatory stranding, possibly reflective of sequelae of chronic muscular hypertrophy, though an additional site of inflammation cannot be excluded. Dictated By: Berenice Alva MD Signed By: <Electronically signed by Berenice Alva MD in OV> 11/25/23 1344 DD/ 1143 TD/TT: Flying Teacher: Ferritin Reviewed date:03/26/2024 10:58:11 PM Interpretation: Performing Lab:[facility], [address] [place] [phone] Notes/Report: Ferritin 60 10-250 ng/mL Mckenzie BUTLER (Not ye t reviewed by provider) Interpretation: Performing Lab:[facility], [address] [place] [phone] Notes/Report: Prometheus Sari BUTLER SEE NOTE SEE SCA NNED RESULTS IN EMR Complete Blood Count Auto Di ff Reviewed date:03/26/2024 12:21:41 PM Interpretation: Performing Lab:[facility], [address] [place] [phone] Notes/Report: White Blood Count 9.5 4.8-10.8 X10*3/uL Red Blood Count 4.72 4.20-5.50 X10*6/uL Hemoglobin 14.4 12.0-16.0 g/dl Hematocrit 44.0 37.0-47.0 % Mean Corpuscular Volume 93.2 80.0-98.0 fL Mean Corpuscular Hemoglobin 30.5 27.0-33.0 pg Mean Corpuscular HGB Conc 32.7 31.0-35.0 g/dl Red Cell Distribution Width 14.8 11.0-16.0 % Platelet Count 375 160-400 X10*3/uL Mean Platelet Volume 10.1 9.4-12.3 fL Neutrophils Percent Auto 70.9 45-73 % Imm Gran Pct Auto 0.5 0.0-0.4 % Lymphocytes Percent Auto 19.4 20-40 % Monocytes Percent Auto 7.2 2-11 % Eosinophils Percent Auto 1.6 0-4 % Basophils Percent Auto 0.4 0-2 % NRBC Pct Auto 0.0 0.0-0.2 /100WBC Neutrophils Absolute Auto 6.8 2.0-8.3 x10*3/u L Imm Gran Abs Auto 0.05 0.00-0.03 X10*3/uL Lymphocytes Absolute Auto 1.9 1.2-4.9 X10*3/u L Monocytes Absolute Auto 0.7 0.1-1.2 X10*3/uL Eosinophils Absolute Auto 0.2 0.0-0.4 X10*3/u L Basophils Absolute Auto 0.0 0.0-0.2 X10*3/uL NRBC Abs Auto 0.000 0.0-0.012 X10*3/uL Erythrocyte Sedimentation Ra te Reviewed date:03/26/2024 12:21:49 PM Interpretation: Performing Lab:[address] [phone] Notes/Report: Erythrocyte Sedimentation Rate 23 0-20 MM/HR Patients with polycythemia and many hemoglobin abnormalities may have depressed sed rates whereas patients with anemia may have elevated sed rates. Liver Panel Reviewed date:03/26/2024 10:36:06 PM Interpretation: Performing Lab:[address] [address] Notes/Report: Bilirubin Total 0.3 0.0-1.0 mg/dL Bilirubin Direct 0.1 0.0-0.5 mg/dL Aspartate Amino Transferase 12 5-31 U/L Alanine Aminotransferase 11 0-31 U/L Total Protein 7.6 6.5-8.0 g/dL Albumin Level 3.9 3.5-5.0 g/dL Alkaline Phosphatase 77 39-117 U/L Basic Metabolic Panel Reviewed date:03/26/2024 10:57:39 PM Interpretation: Performing Lab:[address] [address] Notes/Report: Sodium 139 135-145 mmol/L Potassium 3.8 3.3-5.1 mmol/L Chloride 104 96-108 mmol/L Carbon Dioxide 25 22-29 mmol/L Anion Gap 14 12-20 Blood Urea Nitrogen 11 9-16 mg/dL Creatinine 0.75 0.5-1.4 mg/dL Estimated Glomerular Filt Rate > 60 NOTE: For -Egyptian individuals, multiply the result by 1.210. Chronic Kidney Disease: Estimated GFR < 60 mL/min/1.73m2 Severe Kidney Disease: Estimated GFR < 15 mL/min/1.73m2 Glucose Random 85 60-115 mg/dL Calcium 10.1 8.4-10.2 mg/dL IRON PROFILE Reviewed date:03/26/2024 10:57:52 PM Interpretation: Performing Lab:[facility], [address] [place] [phone] Notes/Report: Iron 72 30-160 mcg/dL Total Iron Binding Capacity 262 228-428 mcg/d L Percent Iron Saturation 27 15-50 % Unsaturated Iron Binding 190 C Reactive Protein Reviewed date:04/01/2024 11:18:24 PM Interpretation: Performing Lab:[facility], [address] [place] [phone] Notes/Report: C Reactive Protein 1.50 < or = 0.50 mg/dL Mckenzie BUTLER (Not ye t reviewed by provider) Interpretation: Performing Lab:[facility], [address] [place] [phone] Notes/Report: Mckenzie BUTLER SEE NOTE SEE SCA NNED RESULTS IN EMR Amylase Reviewed date:06/02/2024 11:00:14 PM Interpretation: Performing Lab:[facility], [address] [place] [phone] Notes/Report: Amylase 66 28-100 U/L Lipase Reviewed date:06/02/2024 11:00:06 PM Interpretation: Performing Lab:[facility], [address] [place] [phone] Notes/Report: Lipase 20 8-78 U/L XR abdomen 3V Reviewed date:06/24/2024 11:51:03 PM Interpretation: Performing Lab: Notes/Report: [address] [address] XRay Report Signed Patient: Gabi Perales MR#: [id number] 25 : 1975 Acct:[id number] Age/Sex: 48 / F ADM Date: 06/02/24 Loc: HO.LAB Attending Dr: Matthew Alexis MD Ordering Physician: Matthew Alexis MD Date of Service: 06/02/24 Procedure(s): XR abdomen 3V Accession Number(s): [id number] cc: Jaswant Frank MD; Matthew Alexis MD EXAMINATION: XR ABDOMEN COMPLETE CLINICAL INDICATION: Crohn's, abdominal pain, diarrhea, patient states history of Crohn's disease, colitis, diverticulitis and gallbladder issues, hurts more on the left side versus the right side. COMPARISON: 04/02/2024. TECHNIQUE: 3 views of the abdomen. FINDINGS: Redemonstration of left hip intramedullary ed and screw transfixing previous fracture, incompletely imaged. Levoscoliosis of the imaged lower lumbar spine with multilevel degenerative changes. Nonobstructive bowel gas pattern. Buuqvocc-wh-guwub amount of stool in the colon. XR/XR abdomen 3V IMPRESSION: Nonobstructive bowel gas pattern. Isdfrzzq-wq-awdev amount of stool in the colon. Dictated By: Jossy Tim MD Signed By: <Electronically signed by Jossy Tim MD in OV> 06/23/24 0830 DD/ 1214 TD/TT: Flying Teacher: Complete Blood Count Auto Di ff Reviewed date:06/02/2024 10:58:44 PM Interpretation: Performing Lab:[facility], [address] [place] [phone] Notes/Report: White Blood Count 9.6 4.8-10.8 X10*3/uL Red Blood Count 4.48 4.20-5.50 X10*6/uL Hemoglobin 13.9 12.0-16.0 g/dl Hematocrit 42.0 37.0-47.0 % Mean Corpuscular Volume 93.8 80.0-98.0 fL Mean Corpuscular Hemoglobin 31.0 27.0-33.0 pg Mean Corpuscular HGB Conc 33.1 31.0-35.0 g/dl Red Cell Distribution Width 14.3 11.0-16.0 % Platelet Count 327 160-400 X10*3/uL Mean Platelet Volume 10.3 9.4-12.3 fL Neutrophils Percent Auto 80.3 45-73 % Imm Gran Pct Auto 0.5 0.0-0.4 % Lymphocytes Percent Auto 11.9 20-40 % Monocytes Percent Auto 6.3 2-11 % Eosinophils Percent Auto 0.7 0-4 % Basophils Percent Auto 0.3 0-2 % NRBC Pct Auto 0.0 0.0-0.2 /100WBC Neutrophils Absolute Auto 7.7 2.0-8.3 x10*3/u L Imm Gran Abs Auto 0.05 0.00-0.03 X10*3/uL Lymphocytes Absolute Auto 1.1 1.2-4.9 X10*3/u L Monocytes Absolute Auto 0.6 0.1-1.2 X10*3/uL Eosinophils Absolute Auto 0.1 0.0-0.4 X10*3/u L Basophils Absolute Auto 0.0 0.0-0.2 X10*3/uL NRBC Abs Auto 0.000 0.0-0.012 X10*3/uL Erythrocyte Sedimentation Ra te Reviewed date:06/02/2024 10:59:56 PM Interpretation: Performing Lab:[facility], [address] [place] [phone] Notes/Report: Erythrocyte Sedimentation Rate 23 0-20 MM/HR Patients with polycythemia and many hemoglobin abnormalities may have depressed sed rates whereas patients with anemia may have elevated sed rates. Liver Panel Reviewed date:06/02/2024 10:58:57 PM Interpretation: Performing Lab:[facility], [address] [place] [phone] Notes/Report: Bilirubin Total 0.3 0.0-1.0 mg/dL Bilirubin Direct 0.1 0.0-0.5 mg/dL Aspartate Amino Transferase 14 5-31 U/L Alanine Aminotransferase 12 0-31 U/L Total Protein 7.7 6.5-8.0 g/dL Albumin Level 4.2 3.5-5.0 g/dL Alkaline Phosphatase 90 39-117 U/L Basic Metabolic Panel Reviewed date:06/02/2024 10:59:27 PM Interpretation: Performing Lab:[address] [phone] Notes/Report: Sodium 141 135-145 mmol/L Potassium 4.7 3.3-5.1 mmol/L Chloride 104 96-108 mmol/L Carbon Dioxide 27 22-29 mmol/L Anion Gap 15 12-20 Blood Urea Nitrogen 13 9-16 mg/dL Creatinine 0.82 0.5-1.4 mg/dL Estimated Glomerular Filt Rate > 60 NOTE: For -Egyptian individuals, multiply the result by 1.210. Chronic Kidney Disease: Estimated GFR < 60 mL/min/1.73m2 Severe Kidney Disease: Estimated GFR < 15 mL/min/1.73m2 Glucose Random 117 60-115 mg/dL Calcium 10.1 8.4-10.2 mg/dL C Reactive Protein Reviewed date:06/02/2024 10:59:47 PM Interpretation: Performing Lab:[facility], [address] [place] [phone] Notes/Report: C Reactive Protein 1.90 < or = 0.50 mg/dL Calprotectin, Fecal Reviewed date:06/22/2024 11:51:32 PM Interpretation: Performing Lab:[facility], [address] [place] [phone] Notes/Report: Calprotectin, Fecal 145 Reference Range: <50 Normal 50-120 Borderline >120 Elevated Calprotectin in Crohn's disease and ulcerative colitis can be five to several thousand times above the reference population (50 mcg/g or less). Levels are usually 50 mcg/g or less in healthy patients and with irritable bowel syndrome. Repeat testing in 4-6 weeks is suggested for borderline values. THIS TEST WAS PERFORMED AT: [facility] [address] [place] [address] ZULEIMA RODRIGUEZ MD,PHD,MAXI Ferritin Reviewed date:09/29/2024 05:30:44 PM Interpretation: Performing Lab:[address] [phone] Notes/Report: Ferritin 29 10-250 ng/mL Lipase Reviewed date:09/29/2024 05:30:19 PM Interpretation: Performing Lab:[facility], [address] [place] [phone] Notes/Report: Lipase 11 8-78 U/L Vitamin D 25-OH Total Reviewed date:10/01/2024 07:52:53 PM Interpretation: Performing Lab:[facility], [address] [place] [phone] Notes/Report: Vitamin D 25-OH Total 28.6 >30 [...] T4 Reviewed date:09/29/2024 05:30:27 PM Interpretation: Performing Lab:[facility], [address] [place] [address] Notes/Report: TSH reflex Free T4 0.48 0.32-4.0 uIU/mL Complete Blood Count Auto Di ff Reviewed date:09/29/2024 05:29:01 PM Interpretation: Performing Lab:[facility], [address] [place] [phone] Notes/Report: White Blood Count 7.1 4.8-10.8 X10*3/uL Red Blood Count 4.29 4.20-5.50 X10*6/uL Hemoglobin 12.9 12.0-16.0 g/dl Hematocrit 39.8 37.0-47.0 % Mean Corpuscular Volume 92.8 80.0-98.0 fL Mean Corpuscular Hemoglobin 30.1 27.0-33.0 pg Mean Corpuscular HGB Conc 32.4 31.0-35.0 g/dl Red Cell Distribution Width 13.6 11.0-16.0 % Platelet Count 341 160-400 X10*3/uL Mean Platelet Volume 9.9 9.4-12.3 fL Neutrophils Percent Auto 65.5 45-73 % Imm Gran Pct Auto 0.3 0.0-0.4 % Lymphocytes Percent Auto 19.9 20-40 % Monocytes Percent Auto 8.9 2-11 % Eosinophils Percent Auto 4.7 0-4 % Basophils Percent Auto 0.7 0-2 % NRBC Pct Auto 0.0 0.0-0.2 /100WBC Neutrophils Absolute Auto 4.6 2.0-8.3 x10*3/u L Imm Gran Abs Auto 0.02 0.00-0.03 X10*3/uL Lymphocytes Absolute Auto 1.4 1.2-4.9 X10*3/u L Monocytes Absolute Auto 0.6 0.1-1.2 X10*3/uL Eosinophils Absolute Auto 0.3 0.0-0.4 X10*3/u L Basophils Absolute Auto 0.1 0.0-0.2 X10*3/uL NRBC Abs Auto 0.000 0.0-0.012 X10*3/uL Erythrocyte Sedimentation Ra te Reviewed date:09/29/2024 05:29:10 PM Interpretation: Performing Lab:[address] [phone] Notes/Report: Erythrocyte Sedimentation Rate 28 0-20 MM/HR Patients with polycythemia and many hemoglobin abnormalities may have depressed sed rates whereas patients with anemia may have elevated sed rates. Liver Panel Reviewed date:09/29/2024 05:29:21 PM Interpretation: Performing Lab:[address] [address] Notes/Report: Bilirubin Total 0.1 0.0-1.0 mg/dL Bilirubin Direct < 0.2 0.0-0.5 mg/dL Aspartate Amino Transferase 28 5-31 U/L Alanine Aminotransferase 17 0-31 U/L Total Protein 6.9 6.5-8.0 g/dL Albumin Level 3.7 3.5-5.0 g/dL Alkaline Phosphatase 80 39-117 U/L Basic Metabolic Panel Reviewed date:09/29/2024 05:29:48 PM Interpretation: Performing Lab:[address] [address] Notes/Report: Sodium 138 135-145 mmol/L Potassium 3.8 3.3-5.1 mmol/L Chloride 107 96-108 mmol/L Carbon Dioxide 24 22-29 mmol/L Anion Gap 11 12-20 Blood Urea Nitrogen 12 9-16 mg/dL Creatinine 0.68 0.5-1.4 mg/dL Estimated Glomerular Filt Rate > 60 Chronic Kidney Disease: Estimated GFR < 60 mL/min/1.73m2 Severe Kidney Disease: Estimated GFR < 15 mL/min/1.73m2 Glucose Random 117 60-115 mg/dL Calcium 9.8 8.4-10.2 mg/dL IRON PROFILE Reviewed date:09/29/2024 05:29:57 PM Interpretation: Performing Lab:[facility], [address] [place] [phone] Notes/Report: Iron 41 30-160 mcg/dL Total Iron Binding Capacity 228 228-428 mcg/d L Percent Iron Saturation 18 15-50 % Unsaturated Iron Binding 187 C Reactive Protein Reviewed date:09/29/2024 05:30:05 PM Interpretation: Performing Lab:[facility], [address] [place] [phone] Notes/Report: C Reactive Protein 0.61 < or = 0.50 mg/dL Vitamin B12 and Folate Reviewed date:09/29/2024 05:30:12 PM Interpretation: Performing Lab:[facility], [address] [place] [phone] Notes/Report: Vitamin B12 449 200-900 pg/mL NORMAL 200-900 PG/ML INDETERMINATE 160-199 PG/ML DEFICIENT < 160 PG/ML Folate 14.6 > or = 4.0 ng/mL Reference Values: > or = 4.0 ng/mL < 4.0 ng/mL suggests folate deficiency Methotrexate, aminopterin and folinic acid (leucovorin) are chemotherapeutic agents whose molecular structures are similar to folate; therefore, the Smash Piecer folate assay cannot be used for patients using these drugs. Mckenzie BUTLER (Not ye t reviewed by provider) Interpretation: Performing Lab:[address] [phone] Notes/Report: Mckenzie BUTLER SEE NOTE SEE SCA NNED RESULTS IN EMR REASON FOR REFERRAL No Information MEDICATIONS Medication SIG (Take, Route, Frequency, Duration) Notes Start Date End Date Status Dicyclomine HCl Acti ve levoFLOXacin 500 MG 1 tablet Orally Once a day for 10 day(s) 01/16/2023 Not-Taking Propranolol HCl Acti ve Budesonide 3 MG TAKE 3 CAPSULES BY MOUTH ONCE DAILY for 90 Not-Taking Eszopiclone For insomnia Activ e Omeprazole 20 MG TAKE 1 CAPSULE BY MOUTH EVERY DAY IN THE MORNING for 90 Not-Taking Excedrin Extra Strength 250-250-65 MG 2 tablets Orally prn PRN Active busPIRone HCl 15 MG 1 tablet Orally Twice a day Not-Taking Cholestyramine 4 GM/DOSE DISSOLVE 1/2 TO 1 SCOOP IN A GLASS OF ORANGE JUICE OR WATER AND DRINK ONCE OR TWICE A DAY FOR DIARRHEA for 90 Not daily Active Omeprazole 40 MG TAKE 1 CAPSULE BY MOUTH EVERY DAY IN THE MORNING for 90 Active Entocort EC 3 MG 3 capsules Orally Once a day for 30 Not-Taking Entyvio Started 03/08/2022--incr eased to Q 4 weeks in 08/2022. This was changed to 2 every 6 weeks in May of 2024. Active metroNIDAZOLE 500 MG 1 tablet Orally Three times a day for 10 day(s) 01/16/2023 Not-Taking traMADol HCl 50 MG as directed Orally prn Active Ondansetron HCl 4 MG TAKE 1 TABLET BY MOUTH EVERY 6 HOURS NEEDED FOR NAUSEA 7 for 8 Active cloNIDine HCl 0.1 MG as directed Orally up to 3 times a day Active Dicyclomine HCl 10 MG TAKE 1 TO 2 CAPSULES BY MOUTH 30 MINUTES BEFORE MEAL AND AT BEDTIME ( 4 TIMES A DAY) 25 for 25 Active Mesalamine ER 500 MG TAKE 2 CAPSULES BY MOUTH 4 TIMES A DAY for 90 Active Diphenoxylate-Atropine 2.5-0.025 MG use 1 or 2 tablets Orally Every 6 hours as needed for diarrhea for 30 days 09/25/2024 Active Ondansetron 4 MG DISSOLVE 1 TABLET BY MOUTH ON THE TONGUE EVERY 6 HOURS NEEDED FOR NAUSEA for 10 Active IMMUNIZATIONS Vaccine Route Administration Date Status Comme nts Influenza Unknown 10/04/2020 Administered Influenza Unknown 01/04/2022 Administered Influenza Unknown 11/17/2019 Refused Influenza Unknown 03/25/2024 Refused Flu vaccine no Preserv 3 and > Unknown 03/25/2024 Refus ed SOCIAL HISTORY Sex Assigned At : Social History Observation Description Sex Assigned At Unknown PROBLEMS Problem Type ICD Code Onset Dates Problem Status W/U Status Risk SNOMED Code Notes Problem Epigastric abdominal pain (R10.13) Active confirmed 02932494 Problem Diverticulitis of large intestine without perforation or abscess without bleeding (K57.32) Active confirmed 6422965 Problem Encounter for screening for malignant neoplasm of colon (Z12.11) Active confirmed 733307122 Problem Abdominal bloating (R14.0) Active confirmed 030753719 Problem Diarrhea (R19.7) Active confirmed Diarr hea (33350253) Problem Crohn's disease of both small and large intestine without complication (K50.80) Active confirmed 65314236 Problem Crohn's disease of small intestine with intestinal obstruction (K50.012) Active confirmed 26964042 Problem Crohn's disease of both small and large intestine without complications (K50.80) Active confirmed 49120792 Problem Crohn's disease of both small and large intestine with rectal bleeding (K50.811) Active confirmed 61937855 Problem Crohn's disease of both small and large intestine with unspecified complications (K50.819) Active confirmed Crohn's disease of small AND large intestines (21995134) Problem Irritable bowel syndrome with diarrhea (K58.0) Active confirmed Irritable b owel syndrome with diarrhea (042032399) Problem Erythema nodosum (L52) Active confirmed 67344397 Problem Generalized abdominal pain (R10.84) Active confirmed 999391193 Problem Nausea (R11.0) Active confirmed 9403135 07 Problem Other fatigue (R53.83) Active confirmed Fatigue (63650991) Problem Diverticulitis (K57.92) Active confirmed Diverticulitis (351011902) Problem Crohns disease of both small and large intestine without complication (K50.80) Active confirmed 71261143 Problem Diverticulitis of colon (K57.32) Active confirmed Diverticuliti s of colon (750815078) Problem Constipation, unspecified constipation type (K59.00) Active confirmed 99862215 Problem Abdominal pain, left lower quadrant (R10.32) Active confirmed 466104481 Problem Vitamin B 12 deficiency (E53.8) Active confirmed 127721506 Problem Abdominal pain, generalized (R10.84) Active confirmed 076458367 Problem Diarrhea, unspecified type (R19.7) Active confirmed 69697239 Problem Crohn's disease of both small and large intestine with intestinal obstruction (K50.812) Active confirmed 82432161 Problem Abnormal computed tomography of small intestine (R93.3) Active confirmed 512040495 Problem Crohn''s disease of both small and large intestine without complication (K50.80) Active confirmed Crohn (86246291) Problem Crohn''s disease of small and large intestines with complication (K50.819) Active confirmed 34020135 Problem Abdominal pain, acute, generalized (R10.84) Active confirmed Generalized abdominal pain (093318093) Problem 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) Active confirmed 101427151 Problem Crohn's disease of small and large intestines with complication (K50.819) Active confirmed 41160622 Problem Long-term current use of vedolizumab (Z79.899) Active confirmed 51544259487406134 Problem History of colonic diverticulitis (Z87.19) Active confirmed 853859698856331 VITAL SIGNS Temperature 97.5 degrees Fahrenheit 09/25/2024 Blood pressure diastolic 00 mm Hg 09/25/2024 Height 62 in 09/25/2024 Blood pressure systolic 000 mm Hg 09/25/2024 Weight 146 lb 8 oz lbs 09/25/2024 BMI 26.79 kg/m2 09/25/2024 Encounters Encounter Location Date Provider Diagnosis [facility] [address] [place] [address] 03/05/2024 Matthew Alexis [facility] [address] [place] [address] 03/25/2024 Matthew Alexis Vitamin B 12 deficie ncy E53.8 ; Crohns disease of both small and large intestine without complication K50.80 and Diverticulitis of large intestine without perforation or abscess without bleeding K57.32 [facility] [address] [place] [address] 09/25/2024 Matthew Alexis Crohns disease of ruthy th small and large intestine without complication K50.80 ; Nausea R11.0 ; Diarrhea R19.7 and Other fatigue R53.83 [facility] [address] [place] [address] 02/13/2024 Matthew Alexis Vitamin B 12 deficie ncy E53.8 [facility] [address] [place] [address] 06/04/2024 Matthew Alexis Vitamin B 12 deficie ncy E53.8 [facility] [address] [place] [address] 09/18/2024 Matthew Alexis Vitamin B 12 deficie ncy E53.8 [facility] [address] [place] [address] 11/19/2023 Matthew Alexis Crohn's disease of b oth small and large intestine with intestinal obstruction K50.812 [facility] [address] [place] [address] 11/25/2023 Matthew Alexis [facility] [address] [place] [address] 12/16/2023 Matthew Alexis [facility] [address] [place] [address] 12/19/2023 Matthew Alexis [facility] [address] [place] [address] 01/08/2024 Matthew Alexis [facility] [address] [place] [address] 02/28/2024 Matthew Alexis [facility] [address] [place] [address] 03/05/2024 Matthew Alexis [facility] [address] [place] [address] 03/19/2024 Matthew Alexis [facility] [address] [place] [address] 04/09/2024 Matthew Alexis [facility] [address] [place] [address] 06/01/2024 Matthew Alexis Crohn''s disease of small and large intestines with complication K50.819 ; Abdominal pain, acute, generalized R10.84 and Diarrhea R19.7 [facility] [address] [place] [address] 06/03/2024 Matthew Alexis [facility] [address] [place] [address] 07/28/2024 Matthew Alexis [facility] [address] [place] [address] 09/18/2024 Matthew Alexis [facility] [address] [place] [address] 10/20/2024 Matthew Alexis ASSESSMENTS Encounter Date Diagnosis Assessment Notes Treatment Notes Treatment Clinical Notes 03/25/2024 Crohns disease of both small and large intestine without complication (ICD-10 - K50.80) 03/25/2024 Vitamin B 12 deficiency (ICD-10 - E53.8) 09/25/2024 Nausea (ICD-10 - R11.0) 09/25/2024 Crohns disease of both small and large intestine without complication (ICD-10 - K50.80) 02/13/2024 Vitamin B 12 deficiency (ICD-10 - E53.8) 06/04/2024 Vitamin B 12 deficiency (ICD-10 - E53.8) 09/18/2024 Vitamin B 12 deficiency (ICD-10 - E53.8) 11/19/2023 Crohn's disease of both small and large intestine with intestinal obstruction (ICD-10 - K50.812) 06/01/2024 Crohn''s disease of small and large intestines with complication (ICD-10 - K50.819) 06/01/2024 Abdominal pain, acute, generalized (ICD-10 - R10.84) 03/25/2024 Diverticulitis of large intestine without perforation or abscess without bleeding (ICD-10 - K57.32) 09/25/2024 Diarrhea (ICD-10 - R19.7) 06/01/2024 Diarrhea (ICD-10 - R19.7) 09/25/2024 Other fatigue (ICD-1 0 - R53.83) PLAN OF TREATMENT Pending Test Test Name Order Date CHEM 7 PROFILE 09/25/2024 CHEM 7 PROFILE 10/18/2020 CHEM 7 PROFILE 01/15/2023 CHEM 7 PROFILE 09/14/2020 CHEM 7 PROFILE 06/01/2024 CHEM 7 PROFILE 08/03/2021 CHEM 7 PROFILE 12/04/2022 CHEM 7 PROFILE 07/01/2023 CHEM 7 PROFILE 09/30/2023 CHEM 7 PROFILE 08/12/2023 CHEM 7 PROFILE 03/25/2024 CHEM 7 PROFILE 12/23/2022 LIVER PROFILE 08/12/2023 LIVER PROFILE 10/26/2015 LIVER PROFILE 03/25/2024 LIVER PROFILE 07/22/2019 LIVER PROFILE 12/23/2022 LIVER PROFILE 07/31/2022 LIVER PROFILE 09/25/2024 LIVER PROFILE 10/18/2020 LIVER PROFILE 10/26/2013 LIVER PROFILE 09/14/2020 LIVER PROFILE 01/15/2023 LIVER PROFILE 11/25/2020 LIVER PROFILE 06/01/2024 LIVER PROFILE 07/12/2017 LIVER PROFILE 09/28/2014 LIVER PROFILE 08/03/2021 LIVER PROFILE 12/04/2022 LIVER PROFILE 07/01/2023 AMYLASE 07/12/2017 LIPASE 08/03/2021 LIPASE 07/12/2017 IRON + IBC (FE) 03/25/2024 IRON + IBC (FE) 07/31/2022 IRON + IBC (FE) 09/25/2024 FERRITIN 07/31/2022 CRP 12/04/2022 CRP 08/03/2021 CRP 07/12/2017 CRP 08/12/2023 CRP 07/22/2019 CRP 12/23/2022 CRP 03/25/2024 CRP 10/18/2020 CRP 09/14/2020 CRP 09/25/2024 CRP 01/15/2023 CRP 11/25/2020 CRP 07/31/2022 CRP 06/01/2024 CRP 09/30/2023 VITAMIN B12 AND FOLATE 09/25/2024 VITAMIN B12 AND FOLATE 07/31/2022 CBC w DIFF 07/01/2023 CBC w DIFF 09/30/2023 CBC w DIFF 07/31/2022 CBC w DIFF 10/26/2015 CBC w DIFF 12/04/2022 CBC w DIFF 08/03/2021 CBC w DIFF 08/12/2023 CBC w DIFF 10/26/2013 CBC w DIFF 12/23/2022 CBC w DIFF 03/25/2024 CBC w DIFF 10/18/2020 CBC w DIFF 09/14/2020 CBC w DIFF 01/15/2023 CBC w DIFF 11/25/2020 CBC w DIFF 09/28/2014 CBC w DIFF 06/01/2024 CBC w DIFF 09/25/2024 CBC with MANUAL DIFFERENTIAL 07/12/2017 CBC with MANUAL DIFFERENTIAL 07/22/2019 SED RATE (ESR) 06/01/2024 SED RATE (ESR) 09/25/2024 SED RATE (ESR) 09/30/2023 SED RATE (ESR) 07/31/2022 SED RATE (ESR) 12/04/2022 SED RATE (ESR) 08/03/2021 SED RATE (ESR) 07/12/2017 SED RATE (ESR) 08/12/2023 SED RATE (ESR) 07/22/2019 SED RATE (ESR) 12/23/2022 SED RATE (ESR) 03/25/2024 SED RATE (ESR) 10/18/2020 SED RATE (ESR) 09/14/2020 SED RATE (ESR) 01/15/2023 SED RATE (ESR) 11/25/2020 HEPATITIS B PROFILE 11/25/2020 HEPATITIS B PROFILE 08/07/2019 URINALYSIS + MICROSCOPIC, CLEAN CATCH STOOL WBC 10/18/2020 GIARDIA AG, STOOL EIA 09/14/2020 OVA & PARASITES (O&P) 09/14/2020 OVA & PARASITES (O&P) 08/03/2021 ROUTINE CULTURE 09/14/2020 CULTURE, STOOL 08/03/2021 CT ABD & PELVIS WITH CONTRAST 01/15/2023 CT ABD & PELVIS WITH CONTRAST 08/12/2023 CT ABD & PELVIS WITH CONTRAST 12/04/2022 CT ABD & PELVIS WITH CONTRAST 12/23/2022 XR GI SMALL BOWEL SERIES 03/25/2018 HUMIRA LEVEL/AB (ADALIMUMAB LEVEL/AB) STOOL WBC 08/03/2021 STOOL WBC 09/25/2024 STOOL WBC 09/14/2020 STOOL WBC 08/12/2023 T SPOT TB 08/07/2019 T SPOT TB 11/25/2020 C DIFFICILE RFLX PCR 10/18/2020 C DIFFICILE RFLX PCR 08/03/2021 C DIFFICILE RFLX PCR 06/01/2024 C DIFFICILE RFLX PCR 09/25/2024 C DIFFICILE RFLX PCR 09/14/2020 C DIFFICILE RFLX PCR 08/12/2023 PROMETHEUS ANSER VDZ 03/25/2024 Calcium 09/25/2024 Amylase 07/01/2023 Amylase 08/03/2021 Lipase 08/12/2023 Lipase 07/01/2023 Prometheus Anser VDZ 03/26/2024 Prometheus Anser VDZ 07/31/2022 Prometheus Anser VDZ 06/01/2024 Prometheus Anser VDZ 12/04/2022 Prometheus Anser VDZ 07/01/2023 Prometheus Anser VDZ 10/21/2024 Prometheus Anser VDZ 09/25/2024 Giardia Ag Stool EIA 09/25/2024 Giardia Ag Stool EIA 08/03/2021 T Spot TB 11/19/2023 T Spot TB 03/01/2022 Calprotectin, Fecal 09/25/2024 Calprotectin, Fecal 06/01/2024 XR acute abdomen series 02/13/2023 Ova and Parasite 09/25/2024 GI PANEL 08/12/2023 GI PANEL 09/25/2024 GI PANEL 06/01/2024 MR Enterography 09/30/2023 Future Test Test Name Order Date UPPER GI ENDOSCOPY 12/29/2015 COLONOSCOPY 04/15/2019 Next Appt Details Provider Name:Matthew Alexis , 03/25/2025 10:00:00 AM, [address] [place] [address], [address], [place], [address], Insurance Providers Payer Name Payer Address Payer Phone Subscriber Number Group Number Insured Name Patient Relationship to Insured Coverage Start Date Coverage End Date [facility] [address] Attn [id number] [id number] [id number] GABI PERALES Self - patient is the insured MEDICATIONS ADMINISTERED Medication Instructions Date of Administration Dosage Notes B-12 05/09/2021 1000 ug B-12 05/15/2021 1000 ug B-12 05/15/2021 1000 ug B-12 06/08/2021 1000 ug B12 07/17/2021 1000 ug B-12 09/26/2021 1000 ug B12 01/04/2022 1000 ug B12 02/02/2022 1000 ug B-12 03/14/2022 1000 ug B12 05/18/2022 1000 ug B12 07/31/2022 1000 ug B-12 09/24/2022 1000 ug B12 12/04/2022 1000 ug B12 02/15/2023 1000 ug B12 02/13/2024 1000 ug B12 06/04/2024 1000 ug B12 09/18/2024 1000 mL MEDICAL (GENERAL) HISTORY Medical History History ICD Code Crohn's disease of the small bowel with TI involvement, left colon involvement, and perianal disease. Colonoscopy in 04/2009-active ileitis, and only patchy and mild colitis in the sigmoid colon and rectum, with all biopsies negative for dysplasia. The initial diagnosis of her Crohn's disease was in January of 2000, although she probably had the disease for at least 2 or 3 years before that given a history of chronic perianal disease requiring surgery for anal fissures, fistula, and the need for sphincterotomy and anal dilatation. She was treated with a short course of Humira in the Spring and Summer of 2010, but stopped that because she thought it was causing some side effects including mood swings and acne. She had a hospitalization for Crohn's disease in August of 2011, when she was treated with a course of prednisone, as well as the continuation of the azathioprine and Pentasa. She had a small bowel series in April of 2018 describing known changes of Crohn's disease in the distal ileum, but without any definitive stricture nor fistula formation, and there was no sign of any proximal bowel obstruction. 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 Linares, III in April of 2015--biopsies of the lesion were nonspecific and she has followup plans with her urologist colonoscopy in April of 2014 revealed ileitis, but no evidence of any significant colitis, adenomas, nor dysplasia i the colonic biopsies Kidney stones-[facility] EGD in 02/2016---small HH, no rmal duodenal and gastric biopsies--no esophagitis Erythema nodosum in fall--resolved with a couple of relatively short courses of prednisone; also resolved with Entocort in 05/2018 Hospitalized in 05/2019 for a Crohn's flare involving the TI--there was no obstruction---discharged on a prednisone taper and restarted on Pentasa Colonoscopy 07/2019 with acti ve ileitis--not on any specific Crohn's meds since then due to having lost her job and health insurance--the colon was WNL, including biopsies neg for dysplasia nor granulomas--there were mild changes of a colitis on the biopsies Vitamin B12 deficiency--started B12 shot s in April of 2021 Hospitalized twice in April for Crohn's disease--treated with IV steroids and subsequent prednisone--the plan is to start her on Humira injections over the summer of 2020 Restarted the Humira 07/10/20--she did take a 3 week holiday from the Humira during the below COVID infection Covid infection mid-08/2021- treated with monoclonal antibody 1 day after the diagnosis--she did have clinical improvement from that. Started Entyvio infusions on 03/08/2022. She had to stop Humira due to + antibodies and nondetectable trough level. In July of 2022 the Entyvio level was at 7.2 with nondetectable antibodies and the Entyvio was increased to every four-week infusions as of August 2022. Labs in July of 2023 came back with an Entyvio trough level at 27. She was changed to every 6 week infusions in May of 2024 due to a persistently high trough level Hospitalized the end of 06/06 22 with increased pain, but no obstruction---CT was without significant change--resolved with IV steroids and IV fluids Diverticulitis of the proxim al sigmoid colon seen on CT scan in November of 2022. There was no evidence of any intra-abdominal abscess or obstruction. This was treated with outpatient antibiotics. MREnterography in 11/2023--no obstruction but mild narrowing of TI Seeing Dr. 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 Messer 2011 Surgery for perianal disease in the , as described above, including a sphincterotomy and anal dilatation, as well as surgery for a fissure and fistula IUD
--- OUTSIDE RECORDS SUMMARY | 2024-10-28 21:24 | XMS_ITS | Data Portability ---
Author Organization [employer] Address [address] [place] [phone] Care Team Providers Care Patient Intake Representative Name Role Phone HIM CCA OTHER Assessment [...] Not available Not available Not available 09/15/2024 [id number] RxNorm Not Available [employer] production 4 03:47:51 8940 trazodone medicatio n Not available Not available Not available 09/15/2024 [id number] RxNorm Not Available [employer] production 4 03:47:51 Medications Name Sig [...] % 98 % 94 /min 18 /min 95028.8 g 99.8 [degF] 164 mm[Hg] 84 mm[Hg] [...] Diagnosis/Indication Diagnosis SNOMED-CT Code Diagnosis ICD10 Code [id number] Zoraida Schwartz MD [facility] [address] [place] [phone] 08/21/2024 10:44:42 08/24/2024 12:31:05 Nausea and vomiting [id number] R11.2 Health Concerns Section Related Observation LastModified by Organization Detai ls LastModified Time None Recorded Concern Status LastModified by Organization Details LastModified Time None Recorded Advance Directives Directive None Recorded Payers Encounter Date Sequence Insurance Name Policy Number Policy Tristan Covered Member ID Tristan Member ID Guarantor Name 08/21/2024 1 [facility] - DOS ON OR AFTER 2023 - DUAL ELIGIBLE - HALFWAY OPTIONS AND ONE CARE (MEDICARE REPLACEMENT/ADV ANTAGE - HMO) Gabi Perales [id number] Gabi Perales Notes Date Note Type Note Provider Name [...] ................... ................... ................... ................... ................... ................... ........ Caddy Note From Roni Herring: Pt co nausea [...] neg skin tenting, pt had normal color. [facility] contacted and advised IV fluids and zofran [...] ........ Disposition: Fulfilled Zoraida Schwartz MD [address] [facility],[address], [place], [address], [employer] 08/21/2024 22:44:48 OBGyn Episode No OBEpisode recorded.
== END 2024-10-27 13:30 | disposition home or self-care (01) ==
PROVIDERS: PCP Internal Medicine; Visit Provider Internal Medicine
DX: R21 Rash and other nonspecific skin eruption (principal)

== ENCOUNTER → 2024-10-27 13:05 | Outpatient (BNVA) | payer OTHER, SELFPAY | PROVIDERS: PCP Internal Medicine; Visit Provider Internal Medicine | DX: R21 Rash and other nonspecific skin eruption (principal) | CPT/HCPCS: 99212 ==

== ENCOUNTER 2024-12-11 09:21 | Outpatient (AMB) | payer OTHER, SELFPAY ==
[2024-12-11 09:24] VITALS: BP 124/72; PULSE 93; O2SAT 99; BMI 26.7
--- NOTE | 2024-12-11 09:24 | A.OFFPC_ITS ---
Vital Signs 12/11/24 09:24 Height 5 ft 5 in Weight 160 lb 8 oz BMI 26.7 BP 124/72 Blood Pressure Location Lt brachial Position Sitting Pulse 93 Pulse Source Pulse Oximeter Pulse Oximetry (%) 99 Oxygen Delivery Method Room Air Intake Visit Reasons: Crohn's, migraine, anxiety, depression Multimedia Artist Required: No Accompanied by: Self / Same As Patient Allergies meperidine [From Demerol] Allergy (Severe, Verified 12/11/24 09:55) SWELLING,RASH,THROAT CLOSES latex [LATEX] Allergy (Mild, Verified 12/11/24 09:55) RASH codeine [Codeine] Adverse Reaction (Intermediate, Verified 12/11/24 09:55) NAUSEA/VOMITING, GI upset/vomiting duloxetine Adverse Reaction (Intermediate, Verified 12/11/24 09:55) headaches trazodone Adverse Reaction (Mild, Verified 12/11/24 09:55) Anxiety Fish Containing Products [Fish Product Derivatives] Adverse Reaction (Unknown, Verified 12/11/24 09:55) NAUSEA/VOMITING bupropion Adverse Reaction (Intermediate, Uncoded 12/11/24 09:55) increased headaches Medication List - Last Reconciled 12/11/24 by Jaswant Frank MD acetaminophen 1,000 mg PO DAILY PRN cholestyramine (with sugar) 4 gram 4 grams PO DAILY PRN clonidine HCl 0.1 mg PO TID PRN dicyclomine 10 - 20 mg PO QID duloxetine 30 mg PO BID 30 days [GRAB BAR As directed] lactobacillus combination no.4 (Probiotic) 3,000 mmu cells PO DAILY levonorgestrel (Mirena) intrauterine lorazepam 1 mg PO TID 30 days mesalamine ER 1,000 mg PO QID metoclopramide HCl (Reglan) 10 mg PO Q6H PRN omeprazole 40 mg PO DAILY ondansetron 4 mg PO Q8H PRN polyethylene glycol 3350 (Miralax) 17 grams PO DAILY PRN [SHOWER CHAIR As directed] [Shower head with long hose As directed] sumatriptan succinate 50 mg PO DAILY MRX1 PRN tramadol 50 mg PO TID PRN 30 days triamcinolone acetonide 0.025% 1 appl topical BID vedolizumab (Entyvio) 300 mg IV Q4W zolpidem ER 12.5 mg PO BEDTIME PRN 30 days Tobacco use date assessed: 12/11/24 Dental Screening Dental Screen Date: 12/11/24 Did you have a dental visit in the last 12 months?: Yes Did you have a dental problem in the last 6 months where you did not have access to dental care?: No Was dental information given to patient?: Patient has dentist HPI Crohn's, migraine, anxiety, depression HPI Details Patient comes in today for her follow up visit States that she has a few minor issues but she feels okay in general States that her insurance will no longer cover her Rx for Sumatriptan so she wants to know what her alternative would be She has a phone conference coming up with one of her medical insurance coder and states that she can ask them during her conversation as to what would be their covered alternative here - choices are Naratriptan, Rizatriptan and Zolmitriptan States that her migraine headaches are still well-controlled so far and Sumatriptan helps effectively when she has breakthrough headaches Adds that she has been experiencing some recurrent stomach issue lately - notes that she would often feel like there is a ball of lump in her stomach after she eats lately but is aware that this is more of a GI issue and she plans to call up Dr. Alexis' office and ask him about this Adds that over the past couple of weeks, she has been feeling a small but painful lump over her right shoulder area in between her shoulder and upper arm States that her right shoulder will start hurting with increased activity and there were a couple of days last week when she could hardly raise her right arm but states that her shoulder is starting to feel better now She also has been breaking out in an itchy rash on both of her forearms for past few days, with the rash much worse on the right forearm States that she has not changed anything or use any new cleaning, laundry or home care products recently so does not know what could be triggering the rash States that she is still taking Zolpidem CR and has been taking it to help her sleep for a while now but there were a couple of times where she did not even remember being intimate with her partner after taking her medication - is wondering if this has anything to do with regards to potential side effects of Ambien She denies any chest pains, no increased SOB No nausea/vomiting and no change in bowel habits noted - still has occasional abdominal cramps and loose stools related to her inflammatory bowel disease [facility] Medical History (Updated 12/13/24 @ 20:58 by Jaswant Frank MD) Crohn's disease Clostridioides difficile carrier Renal calculus, bilateral Postcoital bleeding Major depression, recurrent, chronic Furuncle Diverticulitis Obesity (BMI 30-39.9) Crohn's colitis Crohns disease of small intestine Crohn's colitis Intractable nausea and vomiting Migraine History of renal cell cancer (~2014) Osteoarthritis of hips, bilateral Depression Crohn's disease Lumbar degenerative disc disease Insomnia Anxiety 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 Surgical History Hx of colonoscopy History of esophagogastroduodenoscopy (EGD) History of removal of calculus of renal pelvis through percutaneous nephrostomy (~10/2015) History of cryosurgery (~04/20/15) History of intestinal surgery History of arthroplasty (~01/2012) Family History Father Crohn disease Migraine Cancer Mother HTN (hypertension) Vertigo Cervical cancer Maternal Grandmother HTN (hypertension) Hyperlipidemia Diabetes mellitus Paternal Grandmother Diabetes mellitus Other Mental health problem Social History Household Members: Family Housing: House Do you presently have visiting nurse or other home services: No Unable to assess alcohol history related to: Unable to respond Alcohol intake: current Alcohol intake frequency: holidays/special occasions only Patient Tobacco Use Status: Former Tobacco user Tobacco use type: Cigarette e-Cigarette/Vaping Use: Former Use Second Hand Smoke Exposure: Yes Substance Use Type: Marijuana Advance Directives Date on File: 06/15/22 service: No Current occupational status: unemployed Gender identity: Female Cognitive needs: No Hearing needs: No Vision needs: Yes (glasses) Female Reproductive History Menstrual Age of Menarche: 12 Questionnaire PHQ-9 Over the last 2 weeks, how often have you been bothered by any of the following problems? 1. Little interest or pleasure in doing things: several days 2. Feeling down, depressed, or hopeless: several days 3. Trouble falling or staying asleep, or sleeping too much: several days 4. Feeling tired or having little energy: several days 5. Poor appetite or overeating: several days 6. Feeling bad about yourself - or that you are a failure or have let yourself or your family down: several days 7. Trouble concentrating on things, such as reading the newspaper or watching television: not at all 8. Moving or speaking so slowly that other people could have noticed. Or the opposite - being so fidgety or restless that you have been moving around a lot more than usual: not at all 9. Thoughts that you would be better off or of hurting yourself in some way: not at all Total score: 6 Depression Screening Interpretation: Positive Depression Screening Follow-up: Existing condition, In treatment and Community Mental Health Worker F/U Depression Screening Done: Yes 04269 - PHQ-9 Billing: Yes Source: Developed by Drs. Matthew Hernandez, Starr Jiménez, Billy Somers and colleagues, with an educational paxton from [employer]. Thrive Questionnaire Date Thrive assessed: 12/11/24 I am a: Patient What is your living situation today?: I have a steady place to live Within the past 12 months, did the food you bought not last and you didn't have the money to get more?: Never true Within the past 12 months, did you worry whether your food would run out before you got money to buy more?: Never true Do you have trouble paying for medicines?: No Do you have trouble getting transportation to medical appointments?: No Do you have trouble paying your heating and electricity bill?: No Do you have trouble taking care of your child, family member or friend?: No Do you have trouble with day-to-day activities such as bathing, preparing meals, shopping, managing finances, etc.?: No Are you currently unemployed and looking for a job?: I choose not to answer this question Are you interested in more education?: No Please select the resources that you would like help with: None Currently or been in a relationship where the following occur: No concerns reported THRIVE Score: 0 AUDIT C Alcohol Use Questionnaire (AUDIT-C) 1. How often do you have a drink containing alcohol?: Never 2. How many drinks containing alcohol do you have on a typical day when you are drinking?: 3 or 4 3. How often do you have six or more drinks on one occasion?: Never Total Score: 1 Score Reviewed/Action Taken: Yes MONTSE-7 AMB Questionnaire MONTSE-7 Date MONTSE - 7 assessed: 12/11/24 Feeling nervous, anxious, or on edge: 0 = Not at all Not being able to stop or control worryin = Not at all Worrying too much about different things: 0 = Not at all Trouble relaxin = Not at all Being so restless that it is hard to sit still: 0 = Not at all Becoming easily annoyed or irritable: 0 = Not at all Feeling afraid as if something awful might happen: 0 = Not at all Total MONTSE-7 score (0-4 normal; 5-9 mild; 10-14 moderate; 15-21 severe): 0 Source: Developed by Drs. Matthew Hernandez, Starr Jiménez, Billy Somers and colleagues, with an educational paxton from [employer]. Review of Systems Const Denies chills, Reports difficulty sleeping, Reports fatigue, Denies fever(s) and Denies headache(s) (well-controlled on her current Rx) ENT Denies dizziness, Denies otalgia, Denies headache(s) (well-controlled on her current Rx), Denies neck pain, Denies odynophagia and Denies sore throat Card Denies chest pain, Denies palpitations and Denies dyspnea Resp Denies chest congestion, Denies cough and Denies dyspnea GI Reports abdominal pain (intermittent; recently feels like there is a lump in abdomen after eating), Denies hematochezia, Reports constipation (on and off), Denies heartburn, Denies diarrhea, Denies loose stools, Reports nausea (on and off - better lately), Denies odynophagia and Denies vomiting Denies difficulty voiding, Denies nocturia, Denies dysuria and Denies urinary urgency Musc Reports back pain (over the lower back - chronic), Reports arthralgias (over both hips; right shoulder - see HPI for details) and Denies neck pain Skin/Breast Details: (+) recurrent itchy rash over both forearms, worse on the right forearm Neuro Denies dizziness, Denies headache(s) (well-controlled on her current Rx) and Reports memory loss (see HPI for details) Psych Reports anxiety, Reports depression and Reports memory loss (see HPI for details) Endo Reports fatigue and Denies palpitations Physical exam (Primary Care) Vital Signs: Last Vital Signs Pulse 93 12/11/24 09:24 BP 124/72 12/11/24 09:24 Pulse Ox 99 12/11/24 09:24 Oxygen Delivery Method Room Air 12/11/24 09:24 BMI result Body Mass Index 26.7 Tobacco/Smoking Status: Tobacco use Status Tobacco use date assessed 12/11/24 12/11/24 09:33 Patient Tobacco Use Status Former Tobacco user 12/11/24 09:26 Tobacco use type Cigarette 12/11/24 09:26 e-Cigarette/Vaping Use Former Use 12/11/24 09:26 PHQ-9: PHQ-9 Score PHQ-9: Total score 6 12/11/24 12:53 Depression Screening Interpretation: Positive Depression Screening Follow-up: Existing condition, In treatment and Community Mental Health Worker F/U Thrive Assessment: Date of Thrive Assessment Date Thrive assessed 12/11/24 12/11/24 09:33 Currently or been in a relationship where the following occur: No concerns reported Const General: no acute distress and alert HENMT Ears: TM's normal bilaterally and EAC's normal Throat: Yes posterior oropharynx normal and Yes tonsils normal (no TP congestion noted) Neck Neck: Yes supple and No lymphadenopathy Thyroid: Thyroid normal Resp Auscultation: clear to auscultation bilaterally, no rales and no wheezes Cardio Rate: regular rate Rhythm: regular rhythm Heart sounds: no murmurs GI Palpation (GI): Soft to palpation, Tenderness to palpation present (GI) ((+) minimal diffuse lower abdominal discomfort), no guarding, not rigid and No Rebound tenderness present Auscultation: normal bowel sounds General: Yes no CVA tenderness Back/Spine/Pelvis Back: no CVA tenderness Thoracic/Lumbar Spine: lumbar spinal tenderness Skin Other: (+) scattered raised erythematous papular rash over her entire right and left forearms, much worse on the right side Extrem Other: (+) small palpable nodular lesion near the coracoid process of the right shoulder; lesion is slightly tender on deep palpation General: Yes no clubbing, cyanosis or edema Coding Level of Care Code Est Pt Level 4 (26426) Complex EM visit Add On G2211 Diagnoses Right anterior shoulder pain M25.511 Rash R21 Memory loss R41.3 Crohn's disease without complication, unspecified gastrointestinal tract location K50.90 Gastrointestinal tract location: unspecified location Digestive disease complication type: without complication Degeneration of intervertebral disc of lumbar region with discogenic back pain M51.360 Disc-related pain type: discogenic back pain only Migraine without status migrainosus, not intractable, unspecified migraine type G43.909 Intractability: not intractable Migraine type: unspecified Status migrainosus presence: without status migrainosus Impaired fasting glucose R73.01 Insomnia, unspecified type G47.00 Insomnia type: unspecified Anxiety F41.9 Major depression, recurrent, chronic F33.9 Obesity (BMI 30-39.9) E66.9 Additional Codes PHQ-9 - 69070 - PHQ-9 Billing: Yes ([id number]) Assessment & Plan Assessment & Plan (1) Right anterior shoulder pain: Code(s): M25.511 - Pain in right shoulder Category: Medical Plan: Will send patient for x-rays of her right shoulder [facility] for further evaluation (2) Rash: Code(s): R21 - Rash and other nonspecific skin eruption Category: Medical Plan: Will start patient on Mometasone 0.1% cream to apply to the rash on her upper extremities QD PRN (3) Memory loss: Code(s): R41.3 - Other amnesia Category: Medical Plan: She is concerned about having no recollection of being intimate with her partner/ a couple of times at night recently Have advised patient that this may likely be a side effect of her Zolpidem, as Zolpidem is known to be associated with short-term memory loss as well as sleepwalking Have advised patient that if this continues to recur, we may need to consider taking her off Zolpidem and trialing her on some other medication for her insomnia She recalls doing well on Belsomra in the past but her insurance would not cover her Rx any further so she had to switch over to Zolpidem States that she will try to bring this up as well at her upcoming meeting with her medical insurance coder next week (4) Crohn's disease: Code(s): K50.90 - Crohn's disease, unspecified, without complications Category: Medical Qualifiers: Gastrointestinal tract location: unspecified location Digestive disease complication type: without complication Qualified Code(s): K50.90 - Crohn's disease, unspecified, without complications Plan: Continue Entyvio 300 mg SQ every 6 weeks, Mesalamine ER 1000 mg QID and Budesonide ER 3 mg 3 capsules (900 mg) QD Her abdominal MRI done last year revealed (+) mild improvement in the transmural wall thickening at the terminal ileum, suggesting some improvement Follow up with GI (Dr. Alexis) as scheduled (5) Lumbar degenerative disc disease: Code(s): M51.36 - Other intervertebral disc degeneration, lumbar region Category: Medical Qualifiers: Disc-related pain type: discogenic back pain only Qualified Code(s): M51.360 - Other intervertebral disc degeneration, lumbar region with discogenic back pain only Plan: Reinforced activity and weight-lifting restrictions Continue Tramadol 50 mg TID PRN for pain (6) Migraine: Code(s): G43.909 - Migraine, unspecified, not intractable, without status migrainosus Category: Medical Qualifiers: Intractability: not intractable Migraine type: unspecified Status migrainosus presence: without status migrainosus Qualified Code(s): G43.909 - Migraine, unspecified, not intractable, without status migrainosus Plan: Continue Sumatriptan 50 mg PRN for headaches - feels that this is helping but was advised recently that her insurance company will no longer cover the medication She plans to discuss this further at her upcoming meeting with her medical insurance coder next week to find out what are the covered alternatives that she can switch to Continue Excedrin PRN and Ondansetron PRN for nausea/vomiting Topiramate (for LUNDBERG prophylaxis) was discontinued previously due to its potential interactions with Mirena; patient reports experiencing frequent headaches since Patient also relates experiencing a significant increase in her headaches when she was started on Bupropion XL and Buspirone last year - headaches have subsided since she was instructed to STOP taking them If her headaches get worse or progress, will consider referring her back to neurology for consultation (7) Impaired fasting glucose: Code(s): R73.01 - Impaired fasting glucose Category: Medical Plan: Her FBS was elevated on her labs done a few months ago - this was most likely due to the effects of Prednisone, which she has been off (completed Tx) for a while now In-office HgbA1c was normal at 5.6% when previously checked Will continue to monitor her blood sugar closely Reinforced again low calorie/low carb diet to help control her blood sugar better (8) Insomnia: Code(s): G47.00 - Insomnia, unspecified Category: Medical Qualifiers: Insomnia type: unspecified Qualified Code(s): G47.00 - Insomnia, unspecified Plan: Sleep hygiene reinforced Continue Zolpidem CR 12.5 mg Q HS She has been checked out and advised by Sleep Medicine last year that she does NOT have FAISAL She was previously tried on Belsomra, which she felt helped with her sleep but this was denied by her insurance Follow up with Sleep Medicine as scheduled (9) Anxiety: Code(s): F41.9 - Anxiety disorder, unspecified Category: Medical Plan: She is advised again to continue following up with her current therapist at [facility] regularly/weekly; she was also seen by a psychiatrist previously but was advised at the time that she can continue seeing her therapist weekly and does not need to see psychiatry regularly but patient was instructed to talk to her therapist about getting her back in to see psychiatry [facility] given her recent issues Continue Lorazepam 1 mg BID PRN and Clonidine 0.1 mg TID She was also started on Duloxetine 30 mg BID and currently appears to be doing better on this She was previously on Escitalopram 10 mg QD but she self-discontinued this a few months ago and her anxiety and depression got worse afterwards She was started on Wellbutrin XL 150 mg Q AM and Buspirone 7.5 mg BID a couple of months ago but was instructed to stop taking them when she reported experiencing increased and frequent headaches while on the Rx (10) Major depression, recurrent, chronic: Code(s): F33.9 - Major depressive disorder, recurrent, unspecified Category: Medical Plan: This has increased since she stopped taking her Escitalopram a few months ago She could not tolerate Wellbutrin XL 150 mg Q AM and Buspirone due to increased headaches She was also trialed on Duloxetine 30 mg Q HS at her last visit but she reports that her headaches also got worse on the Rx and she stopped taking it imme diately She was advised to request seeing psychiatry again for a new consultation given her increasing depression and anxiety at her last visit and it appears that she was started back on Duloxetine and appears to be doing better currently at 30 mg BID Follow up with psychiatry as scheduled (11) Obesity (BMI 30-39.9): Code(s): E66.9 - Obesity, unspecified Category: Medical Plan: Reinforced diet/exercise as tolerated/lose weight Plan To return in 4 months for her annual physical examination Orders: Orders XR shoulder RT min 2V 12/11/24 M25.511 - Pain in right shoulder Complete Blood Count Auto Diff 4 Months D64.9 - Anemia, unspecified, Z00.00 - Encounter for general adult medical examination without abnormal findings Lipid Panel 4 Months E78.00 - Pure hypercholesterolemia, unspecified, Z00.00 - Encounter for general adult medical examination without abnormal findings TSH reflex Free T4 4 Months E78.00 - Pure hypercholesterolemia, unspecified, Z00.00 - Encounter for general adult medical examination without abnormal findings Vitamin D 25-OH Total 4 Months E55.9 - Vitamin D deficiency, unspecified, Z00.00 - Encounter for general adult medical examination without abnormal findings Comprehensive Sharon. Panel Fast 4 Months E78.00 - Pure hypercholesterolemia, unspecified, Z00.00 - Encounter for general adult medical examination without abnormal findings UA CC w/rflx Micro + Cult 4 Months R30.0 - Dysuria, Z00.00 - Encounter for general adult medical examination without abnormal findings Medications: New mometasone 0.1% 1 appl topical DAILY PRN 45 grams 1RF rash/itching
== END 2024-12-11 10:15 | disposition home or self-care (01) ==
PROVIDERS: PCP Internal Medicine; Visit Provider Internal Medicine
DX: M25.511 Pain in right shoulder (principal); R21 Rash and other nonspecific skin eruption; K50.90 Crohn's disease, unspecified, without complications; F33.9 Major depressive disorder, recurrent, unspecified; R41.3 Other amnesia; M51.360 Other intervertebral disc degeneration, lumbar region with discogenic back pain only; G43.909 Migraine, unspecified, not intractable, without status migrainosus; R73.01 Impaired fasting glucose; G47.00 Insomnia, unspecified; F41.9 Anxiety disorder, unspecified; E66.9 Obesity, unspecified

== ENCOUNTER 2024-12-11 09:21 | Outpatient (REF) | payer OTHER, SELFPAY ==
--- NOTE | ~2024-12-11 | XR_ITS ---
CLINICAL HISTORY: M25.511 - Pain in right shoulder 4 view right shoulder Comparison: None Findings: Bones intact. No dislocations. No significant arthritic change. No erosions. No radiopaque foreign body. IMPRESSION: 1. No acute findings This document has been electronically signed by: Milad Whittaker MD on 12/12/2024 09:34:27
--- OUTSIDE RECORDS SUMMARY | 2024-12-11 15:22 | XMS_ITS ---
Author Organization [facility] Address [address] [place] [address] Care Team Providers Care Aquatics Instructor Name Role Phone Zac COOLEY, Fraser Primary Care Provider Unava ilable Matthew Alexis Unavailable [phone] REASON FOR VISIT symptoms Encounters Encounter Location Date Provider Diagnosis [facility] [address] [place] [address] 12/11/2024 Matthew Alexis PLAN OF TREATMENT Next Appt Details Provider Name:Matthew Alexis , 03/25/2025 10:00:00 AM, [address], [address], [place], [address],
--- OUTSIDE RECORDS SUMMARY | 2024-12-11 15:22 | XMS_ITS ---
Author Organization [facility] Address [address] [place] [address] Care Team Providers Care Electric Motor And Generator Assembler Name Role Phone Zac COOLEY, Carlton Primary Care Provider Matthew Manrique Unavailable [phone] REASON FOR VISIT B12 deficiency MEDICATIONS Medication SIG (Take, Route, Frequency, Duration) Notes Start Date End Date Status Diphenoxylate-Atropine 2.5-0.025 MG use 1 or 2 tablets Orally Every 6 hours as needed for diarrhea for 30 days 09/25/2024 Active Entocort EC 3 MG 3 capsules Orally Once a day for 30 Not-Taking Ondansetron 4 MG DISSOLVE 1 TABLET BY MOUTH ON THE TONGUE EVERY 6 HOURS NEEDED FOR NAUSEA for 10 Active metroNIDAZOLE 500 MG 1 tablet Orally Three times a day for 10 day(s) 01/16/2023 Not-Taking Omeprazole 40 MG TAKE 1 CAPSULE BY MOUTH EVERY DAY IN THE MORNING for 90 Active Omeprazole 20 MG TAKE 1 CAPSULE BY MOUTH EVERY DAY IN THE MORNING for 90 Not-Taking Budesonide 3 MG TAKE 3 CAPSULES BY MOUTH ONCE DAILY for 90 Not-Taking Ondansetron HCl 4 MG TAKE 1 TABLET BY MOUTH EVERY 6 HOURS NEEDED FOR NAUSEA 7 for 8 Active busPIRone HCl 15 MG 1 tablet Orally Twice a day Not-Taking levoFLOXacin 500 MG 1 tablet Orally Once a day for 10 day(s) 01/16/2023 Not-Taking Dicyclomine HCl Acti ve Entyvio Started 03/08/2022--incr eased to Q 4 weeks in 08/2022. This was changed to 2 every 6 weeks in Tamie of 2024. Active Cholestyramine 4 GM/DOSE DISSOLVE 1/2 TO 1 SCOOP IN A GLASS OF ORANGE JUICE OR WATER AND DRINK ONCE OR TWICE A DAY FOR DIARRHEA for 90 Not daily Active Mesalamine ER 500 MG TAKE 2 CAPSULES BY MOUTH 4 TIMES A DAY for 90 Active Dicyclomine HCl 10 MG TAKE 1 TO 2 CAPSULES BY MOUTH 30 MINUTES BEFORE MEAL AND AT BEDTIME ( 4 TIMES A DAY) 25 for 25 Active traMADol HCl 50 MG as directed Orally prn Active Excedrin Extra Strength 250-250-65 MG 2 tablets Orally prn PRN Active cloNIDine HCl 0.1 MG as directed Orally up to 3 times a day Active Eszopiclone For insomnia Activ e Propranolol HCl Acti ve Encounters Encounter Location Date Provider Diagnosis [facility] [address] [place] [address] 12/11/2024 Matthew Alexis Vitamin B 12 deficiency E53.8 ASSESSMENTS Encounter Date Diagnosis Assessment Notes Treatment Notes Treatment Clinical Notes 12/11/2024 Vitamin B 12 deficiency (ICD-10 - E53.8) PLAN OF TREATMENT Next Appt Details Provider Name:Matthew Alexis , 03/25/2025 10:00:00 AM, [address] [place] [address], [address], [place], [address], MEDICATIONS ADMINISTERED Medication Instructions Date of Administration Dosage Notes B12 12/11/2024 1000 mL
--- OUTSIDE RECORDS SUMMARY | 2024-12-11 15:22 | XMS_ITS | Data Portability ---
Author Organization [employer] [employer] [employer] [facility] [employer] Address [address] [place] [phone] Care Team Providers Care Apparel Cutter Name Role Phone HIM CCA OTHER Assessment [...] Not available Not available Not available 09/15/2024 [id number] 91 RxNorm Not Available [facility] - production 4 03:47:51 8940 trazodone medicatio n Not available Not available Not available 09/15/2024 02240 RxNorm Not Available [facility] - production 4 03:47:51 Medications Name Sig [...] % 98 % 94 /min 18 /min 43556.8 g 99.8 [degF] 164 mm[Hg] 84 mm[Hg] [...] Diagnosis/Indication Diagnosis SNOMED-CT Code Diagnosis ICD10 Code Diagnosis Note [id number] Zoraida Schwartz MD [facility] [address] [place] [phone] 08/21/2024 10:44:42 08/24/2024 12:31:05 Nausea and vomiting [id number] R11.2 I provided real -time medical direction via phone for this encounter, and was available for additional phone based assistance as needed. I have reviewed and agree with the Assessment and Plan as documented by the Hardware Installation Coordinator. Patient given the opportunit y to ask questions. 49 yo F w/ h/o crohn's and diverticul itis with h/o recurrent episodes of nausea/jacobo sis treated with supportive care (IV fluids and zofran in the ED) who p/w episode of n/v x1d. noting significan t associated anxiety. No hematemesi s or no hematochez ia. Exam reassuring . Hardware Installation Coordinator unable to obtain IV access despite multiple efforts. Pt tolerating PO after taking ODT zofran (and pts own ativan). Reviewed warning signs/sx. Health Concerns Section Related Observation LastModified by Organization Detai ls LastModified Time None Recorded Concern Status LastModified by Organization Details LastModified Time None Recorded Advance Directives Directive None Recorded Payers Encounter Date Sequence Insurance Name Policy Number Policy Tristan Covered Member ID Tristan Member ID Guarantor Name 08/21/2024 1 [facility] - DOS ON OR AFTER 2023 - DUAL ELIGIBLE - CARE HOME OPTIONS AND ONE CARE (MEDICARE REPLACEMENT/ADV ANTAGE - HMO) Gabi Perales [id number] Gabi Perales Notes Date Note Type Note [...] ................... ................... ................... ................... ................... ................... ........ Hardware Installation Coordinator Note From Roni Herring: Pt co nausea [...] neg skin tenting, pt had normal color. C contacted and advised IV fluids and zofran [...] ........ Disposition: Fulfilled Zoraida Schwartz MD [address] [facility], [place], [address], [employer] 08/21/2024 22:44:48 OBGyn Episode No OBEpisode recorded.
--- OUTSIDE RECORDS SUMMARY | 2024-12-11 15:22 | XMS_ITS ---
Author Organization [facility] Address [address] [place] [address] Care Team Providers Care Mainframe Software Developer Name Role Phone Zac COOLEY, Lennox Primary Care Provider Unava Matthew Arreola Unavailable [phone] REASON FOR VISIT pt needs order for ativan for tomorrows infusion Encounters Encounter Location Date Provider Diagnosis [facility] [address] [place] [address] [address] [place] [address] 10/20/2024 Matthew Alexis PLAN OF TREATMENT Next Appt Details Provider Name:Matthew Alexis , 03/25/2025 10:00:00 AM, [address], [address], [place], [address],
== END 2024-12-11 09:22 | disposition home or self-care (01) ==
LOC: HO.XRAY 09:21
PROVIDERS: PCP Internal Medicine; Visit Provider Internal Medicine
DX: M25.511 Pain in right shoulder (principal); R21 Rash and other nonspecific skin eruption; R41.3 Other amnesia; K50.90 Crohn's disease, unspecified, without complications; M51.360 Other intervertebral disc degeneration, lumbar region with discogenic back pain only; G43.909 Migraine, unspecified, not intractable, without status migrainosus; R73.01 Impaired fasting glucose; G47.00 Insomnia, unspecified; F41.9 Anxiety disorder, unspecified; F33.9 Major depressive disorder, recurrent, unspecified; E66.9 Obesity, unspecified; Z79.899 Other long term (current) drug therapy
CPT/HCPCS: 73030; 96127; 99212

== ENCOUNTER → 2024-12-11 13:40 | Outpatient (BNV) | payer OTHER, SELFPAY | PROVIDERS: PCP Internal Medicine; Visit Provider Specialist | DX: M25.511 Pain in right shoulder (principal) | CPT/HCPCS: 73030 ==

== ENCOUNTER 2025-04-05 08:43 | Outpatient (REF) | payer OTHER, SELFPAY ==
--- NOTE | ~2025-04-05 | MR_ITS ---
EXAMINATION: MR ABDOMEN WITHOUT THEN WITH IV CONTRAST HISTORY: DISORDER OF KIDNEY AND URETER COMPARISON: Comparison is made with the prior examination dated 08/25/2024. TECHNIQUE: Axial in and out of phase T1-weighted gradient echo, axial diffusion weighted, and axial and coronal HASTE T2 with fat saturation images were obtained through the abdomen. Subsequently, fat suppressed axial and coronal T1-weighted images were obtained after the intravenous administration of 8 mL Gadavist. FINDINGS: Liver: There is no loss of signal intensity in the liver on opposed phase imaging to suggest steatosis. There is no enhancing liver mass. The hepatic and portal veins are patent. There is no intra- or extrahepatic biliary dilatation. Gallbladder: No gallstones are identified. Spleen: The spleen is unremarkable. Pancreas: The pancreas is unremarkable. The pancreatic duct is normal in caliber. Adrenals: The adrenal glands are unremarkable. Kidneys: Again seen is a T2 hyperintense set lesion at the lower pole of the right kidney which appears to represent a septated cystic lesion with enhancement. This measures 12 x 8 mm in size, slightly smaller than on the prior study (previously 13 x 11 mm). The left kidney is unremarkable. Lymph nodes: There is no retroperitoneal lymphadenopathy in the upper abdomen. Fluid: There is no ascites in the upper abdomen. Visualized bowel: The visualized bowels loops are unremarkable in appearance. Visualized bones: The visualized bones demonstrate normal marrow signal intensity. 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 Continued follow-up is recommended. Electronically signed by: Matthew Sam MD 04/05/2025 10:13 AM EDT
--- OUTSIDE RECORDS SUMMARY | 2025-04-05 08:58 | XMS_ITS | Data Portability ---
Author Organization [employer] [place] [facility] [employer] Address [address] [place] [address] Care Team Providers Care Senior Cost Estimator Name Role Phone HIM CCA OTHER Assessment [...] Not available Not available Not available 09/15/2024 41620 91 RxNorm Not Available [employer] - production 4 03:47:51 8940 trazodone medicatio n Not available Not available Not available 09/15/2024 26747 RxNorm Not Available [employer] - production 4 03:47:51 Medications Name Sig [...] % 98 % 94 /min 18 /min 56684.8 g 99.8 [degF] 164 mm[Hg] 84 mm[Hg] [...] SNOMED-CT Code Diagnosis ICD10 Code Diagnosis Note [id number] Zoraida Schwartz MD [facility] [address] [place] [phone] 08/21/2024 10:44:42 08/24/2024 12:31:05 Nausea and vomiting [id number] R11.2 I provided real -time medical direction via phone for this encounter, and was available for additional phone based assistance as needed. I have reviewed and agree with the Assessment and Plan as documented by the Manager Reporting. Patient given the opportunit y to ask questions. 49 yo F w/ h/o crohn's and diverticul itis with h/o recurrent episodes of nausea/jacobo sis treated with supportive care (IV fluids and zofran in the ED) who p/w episode of n/v x1d. noting significan t associated anxiety. No hematemesi s or no hematochez ia. Exam reassuring . Manager Reporting unable to obtain IV access despite multiple efforts. Pt tolerating PO after taking ODT zofran (and pts own ativan). Reviewed warning signs/sx. Health Concerns Section Related Observation LastModified by Organization Detai ls LastModified Time None Recorded Concern Status LastModified by Organization Details LastModified Time None Recorded Advance Directives Directive None Recorded Payers Insurance Date Sequence Insurance Name Policy Number Policy Tristan Covered Member ID Tristan Member ID Guarantor Name 08/21/2024 1 [facility] - DOS ON OR AFTER 2023 - DUAL ELIGIBLE - DETENTION OPTIONS AND ONE CARE (MEDICARE REPLACEMENT/ADV ANTAGE - HMO) Gabi Perales [id number] Gabi Perales Notes Date Note Type Note [...] ................... ................... ................... ................... ................... ........ Manager Reporting Note From Roni Herring: Pt co nausea [...] ........ Disposition: Fulfilled Zoraida Schwartz MD [address], [place], [address], [employer] 08/21/2024 22:44:48 OBGyn Episode No OBEpisode recorded.
[2025-04-05] MEDS: gadobutroL 10 ML VIAL IVPUSH (09:51)
== END 2025-04-05 08:44 | disposition home or self-care (01) ==
LOC: HO.MRI 08:43
PROVIDERS: PCP Internal Medicine; Visit Provider Nurse Practitioner Family
DX: N28.89 Other specified disorders of kidney and ureter (principal)
CPT/HCPCS: 74183; A9585

== ENCOUNTER → 2025-04-05 09:00 | Outpatient (BNV) | payer OTHER, SELFPAY | PROVIDERS: PCP Internal Medicine; Visit Provider Radiology Diagnostic Radiology | DX: N28.9 Disorder of kidney and ureter, unspecified (principal) | CPT/HCPCS: 74183 ==

== ENCOUNTER 2025-04-07 10:58 | Outpatient (REF) | payer OTHER, SELFPAY ==
[2025-04-07 11:44] LABS: MANUAL DIFF FLAG NO
[2025-04-07 11:59] LABS: Basophils Percent Auto 0.4 % (0-2); Eosinophils Absolute Auto 0.4 X10*3/uL (0.0-0.4); Eosinophils Percent Auto 4.3 % (0-4); Hematocrit 40.7 % (37.0-47.0); Hemoglobin 13.1 g/dl (12.0-16.0); Imm Gran Abs Auto 0.05 X10*3/uL (0.00-0.03); Imm Gran Pct Auto 0.5 % (0.0-0.4); Lymphocytes Absolute Auto 1.7 X10*3/uL (1.2-4.9); Lymphocytes Percent Auto 18.4 % (20-40); Mean Corpuscular HGB Conc 32.2 g/dl (31.0-35.0); Mean Corpuscular Hemoglobin 29.5 pg (27.0-33.0); Mean Corpuscular Volume 91.7 fL (80.0-98.0); Mean Platelet Volume 9.8 fL (9.4-12.3); Monocytes Absolute Auto 0.7 X10*3/uL (0.1-1.2); Monocytes Percent Auto 7.3 % (2-11); Neutrophils Absolute Auto 6.3 x10*3/uL (2.0-8.3); Neutrophils Percent Auto 69.1 % (45-73); Platelet Count 350 X10*3/uL (160-400); Red Blood Count 4.44 X10*6/uL (4.20-5.50); Red Cell Distribution Width 15.2 % (11.0-16.0); White Blood Count 9.1 X10*3/uL (4.8-10.8)
--- OUTSIDE RECORDS SUMMARY | 2025-04-07 12:22 | XMS_ITS | Data Portability ---
Author Organization [employer] [place] [facility] [employer] Address [address] [place] [phone] Care Team Providers Care Sole Ruffer Name Role Phone HIM CCA OTHER Assessment [...] Not available Not available Not available 09/15/2024 00830 91 RxNorm Not Available [facility] - production 4 03:47:51 8940 trazodone medicatio n Not available Not available Not available 09/15/2024 11157 RxNorm Not Available [facility] - production 4 03:47:51 Medications Name Sig [...] % 98 % 94 /min 18 /min 28975.8 g 99.8 [degF] 164 mm[Hg] 84 mm[Hg] [...] SNOMED-CT Code Diagnosis ICD10 Code Diagnosis Note [id number] Zoraida Schwartz MD [facility] [address] [place] [phone] 08/21/2024 10:44:42 08/24/2024 12:31:05 Nausea and vomiting [id number] R11.2 I provided real -time medical direction via phone for this encounter, and was available for additional phone based assistance as needed. I have reviewed and agree with the Assessment and Plan as documented by the Multicultural Manager. Patient given the opportunit y to ask questions. 49 yo F w/ h/o crohn's and diverticul itis with h/o recurrent episodes of nausea/jacobo sis treated with supportive care (IV fluids and zofran in the ED) who p/w episode of n/v x1d. noting significan t associated anxiety. No hematemesi s or no hematochez ia. Exam reassuring . Multicultural Manager unable to obtain IV access despite multiple [...] Tristan Member ID Guarantor Name 08/21/2024 1 [facility] - DOS ON OR AFTER 2023 - DUAL ELIGIBLE - [facility] OPTIONS AND ONE CARE (MEDICARE REPLACEMENT/ADV ANTAGE - HMO) Gabi Perales [id number] Gabi Perales Notes Date Note Type Note [...] ................... ................... ................... ................... ................... ................... ........ Multicultural Manager Note From Roni Herring: Pt co nausea [...] ........ Disposition: Fulfilled Zoraida Schwartz MD [address] [facility], [place], [address], [employer] 08/21/2024 22:44:48 OBGyn Episode No OBEpisode recorded.
[2025-04-07 12:41] LABS: Erythrocyte Sedimentation Rate 28 MM/HR (0-20)
[2025-04-07 15:16] LABS: Alanine Aminotransferase 18 U/L (0-31); Albumin Level 3.8 g/dL (3.5-5.0); Alkaline Phosphatase 107 U/L (39-117); Aspartate Amino Transferase 21 U/L (5-31); Bilirubin Direct < 0.2 mg/dL (0.0-0.5); Bilirubin Total 0.1 mg/dL (0.0-1.0); C Reactive Protein 1.78 mg/dL (< or = 0.50); Total Protein 7.1 g/dL (6.5-8.0)
== END 2025-04-07 10:59 | disposition home or self-care (01) ==
LOC: HO.10HDL 10:58
PROVIDERS: Visit Provider Internal Medicine
DX: K50.819 Crohn's disease of both small and large intestine with unspecified complications (principal)
CPT/HCPCS: 36415; 80076; 85025; 85652; 86140

== ENCOUNTER 2025-04-14 09:26 | Outpatient (AMB) | payer OTHER, SELFPAY ==
--- NOTE | 2025-04-14 09:33 | A.OFFVIS_ITS ---
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: No Accompanied by: Self / Same As Patient Allergies meperidine [From Demerol] Allergy (Severe, Verified 04/14/25 10:14) SWELLING,RASH,THROAT CLOSES latex [LATEX] Allergy (Mild, Verified 04/14/25 10:14) RASH codeine [Codeine] Adverse Reaction (Intermediate, Verified 04/14/25 10:14) NAUSEA/VOMITING, GI upset/vomiting duloxetine Adverse Reaction (Intermediate, Verified 04/14/25 10:14) headaches trazodone Adverse Reaction (Mild, Verified 04/14/25 10:14) Anxiety Fish Containing Products [Fish Product Derivatives] Adverse Reaction (Unknown, Verified 04/14/25 10:14) NAUSEA/VOMITING bupropion Adverse Reaction (Intermediate, Uncoded 04/14/25 10:14) increased headaches Medication List - Last Reconciled 04/14/25 by STEPHANIE Mir acetaminophen 1,000 mg PO DAILY PRN cholestyramine (with sugar) 4 gram 4 grams PO DAILY PRN clonidine HCl 0.1 mg PO TID PRN dicyclomine 10 - 20 mg PO QID duloxetine 30 mg PO BID 30 days [GRAB BAR As directed] lemborexant (Dayvigo) 10 mg PO BEDTIME PRN 30 days levonorgestrel (Mirena) intrauterine lorazepam 1 mg PO TID 30 days mesalamine ER 1,000 mg PO QID naratriptan take 1 tab at onset of headache; if no relief may repeat 1 tab after at least 4 hrs; max = 2 tabs/24 hrs PO nitrofurantoin macrocrystal 100 mg PO BID 10 days omeprazole 40 mg PO DAILY ondansetron 4 mg PO Q8H PRN polyethylene glycol 3350 (Miralax) 17 grams PO DAILY PRN [SHOWER CHAIR As directed] [Shower head with long hose As directed] sumatriptan succinate 50 mg PO DAILY MRX1 PRN suvorexant 20 mg PO BEDTIME 30 days tramadol 50 mg PO TID PRN 30 days vedolizumab (Entyvio) 300 mg IV Q4W HPI Comments Details: Gabi is a very pleasant 49-year-old female patient of Dr. Frank. She has a PMH of depression, diverticulitis, obesity, Crohn's disease, migraines, renal cell cancer status post right-sided cryoabl[place] [address] Linares per patient, osteoarthritis, depression, insomnia, and anxiety. She presents to the office today for follow-up of her right renal mass. Recent MRI results reviewed with the patient today. 04/11 the previously seen Bosniak 3 F right renal lesion appears minimally smaller previously measuring 13 x 11 mm in current MRI measuring 12 x 8 mm. Continued follow-up is recommended per radiology report. She reports noting over the last 2-3 days she has been e xperiencing issues with dysuria and feeling of incomplete bladder emptying. In office urinalysis results reviewed with the patient today positive nitrates. PVR 0 mL. We discussed potential for urinary tract infection given urinalysis as well as lower urinary tract symptoms patient has been experiencing. We discussed sending urine today for urine culture. She discusses having recently followed up with Gastroenterology Dr. Alexis she has a longstanding history of Crohn's disease and recently underwent IV infusion and feels this has been helpful. She describes episodes of loose stools and constipation. We discussed at length correlation of bowel issues and urinary tract infections. We discussed previous history of right-sided cryoablation with Dr. Linares and imaging results. We discussed likelihood of cryoablation effect. Discussed surveillance monitoring. She continues to attend pelvic floor therapy for her coital incontinence that she feels has improved. Previous urine cultures are as follows: 04/10 & 08/11 noted E coli. She denies hematuria, foul smelling urine, changes to urinary stream, flank pain, fever, and or chills. In review of patient's chart it appears patient status post right cryoablation 04/20/2015 at that time the patient's mass was right up against the parapinious muscle so the only way to manipulate the cryo needle was to have part of this muscle involved in the cryotherapy. Attempted to obtain and or review pathology however this is not present in patient's medical record at this time. She discusses her upcoming appointment with her PCP tomorrow. She otherwise denies any other issues or concerns at this time. [facility] Medical History Crohn's disease Clostridioides difficile carrier Renal calculus, bilateral Postcoital bleeding Major depression, recurrent, chronic Furuncle Diverticulitis Obesity (BMI 30-39.9) Crohn's colitis Crohns disease of small intestine Crohn's colitis Intractable nausea and vomiting Migraine History of renal cell cancer (~2014) Osteoarthritis of hips, bilateral Depression Crohn's disease Lumbar degenerative disc disease Insomnia Anxiety 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 Surgical History Hx of colonoscopy History of esophagogastroduodenoscopy (EGD) History of removal of calculus of renal pelvis through percutaneous nephrostomy (~10/2015) History of cryosurgery (~04/20/15) History of intestinal surgery History of arthroplasty (~01/2012) Family History Father Crohn disease Migraine Cancer Mother HTN (hypertension) Vertigo Cervical cancer Maternal Grandmother HTN (hypertension) Hyperlipidemia Diabetes mellitus Paternal Grandmother Diabetes mellitus Other Mental health problem Social History Household Members: Family Housing: House Do you presently have visiting nurse or other home services: No Unable to assess alcohol history related to: Unable to respond Alcohol intake: current Alcohol intake frequency: holidays/special occasions only Patient Tobacco Use Status: Former Tobacco user Tobacco use type: Cigarette e-Cigarette/Vaping Use: Former Use Second Hand Smoke Exposure: Yes Substance Use Type: Marijuana Advance Directives Date on File: 06/15/22 service: No Current occupational status: unemployed Gender identity: Female Cognitive needs: No Hearing needs: No Vision needs: Yes (glasses) Female Reproductive History Menstrual Age of Menarche: 12 Review of Systems Const Reports no additional complaints Eyes Reports no additional complaints ENT Reports no additional complaints Card Reports as per HPI Resp Reports no additional complaints GI Reports as per HPI Reports as per HPI Musc Reports as per HPI Neuro Reports no additional complaints Psych Reports as per HPI Endo Reports no additional complaints Physical Exam Const General: cooperative, healthy appearing, comfortable, no acute distress, well developed, alert and awake Nutritional Appearance: overweight Orientation/consciousness: patient oriented x3 Limitations: no limitations HEENT Head: Yes normal to inspection, Yes normocephalic and Yes atraumatic Ears: hearing grossly normal bilaterally Eyes General: appearance normal, both eyes and all related structures Neck Neck: Yes normal visual inspection and Yes trachea midline Chest Chest palpation & inspection: normal inspection of the chest Resp Effort & Inspection: normal respiratory effort and able to speak in complete sentences Cardio Rate: regular rate GI Inspection: Yes normal to inspection General: Yes no CVA tenderness Back/Spine/Pelvis Back: no CVA tenderness Skin General skin exam: no rashes or lesions noted Neuro General: patient oriented x3 Extrem General: Yes normal to inspection Psych Appearance: grossly normal and well kempt Mental Status: mental status grossly normal Speech and movement: Normal speech and movement present and Clear speech present Affect: normal affect Attitude: cooperative Thought process: Normal thought process present Thought content: Normal thought content present Insight: Fair insight present (Psych) Judgement: Fair judgement present (Psych) Results AMB Urinalysis, Automated UA Leukoctes 0 Rajni/uL Last Edit by Toyin Nichole on 04/14/25 10:18 UA Nitrite Positive Last Edit by Toyin Nichole on 04/14/25 10:18 UA Urobilinogen 3.5 mg/dL Last Edit by Toyin Nichole on 04/14/25 10:18 UA Protein 1 mg/dL Last Edit by Toyin Nichole on 04/14/25 10:18 UA pH 5.5 Last Edit by Toyin Nichole on 04/14/25 10:18 UA Blood 0 Ernie/uL Last Edit by Toyin Nichole on 04/14/25 10:18 UA Specific Webster 1.025 Last Edit by Toyin Nichole on 04/14/25 10:18 UA Ketone Negative Last Edit by Toyin Nichole on 04/14/25 10:18 UA Bilirubin 0 mg/dL Last Edit by Toyin Nichole on 04/14/25 10:18 UA Glucose 0 mg/dL Last Edit by Toyin Nichole on 04/14/25 10:18 Results Reviewed Results Reviewed: Date of Service: 04/05/25 Procedure(s): MR abdomen wo/w con FINDINGS: Liver: There is no loss of signal intensity in the liver on opposed phase imaging to suggest steatosis. There is no enhancing liver mass. The hepatic and portal veins are patent. There is no intra- or extrahepatic biliary dilatation. Gallbladder: No gallstones are identified. Spleen: The spleen is unremarkable. Pancreas: The pancreas is unremarkable. The pancreatic duct is normal in caliber. Adrenals: The adrenal glands are unremarkable. Kidneys: Again seen is a T2 hyperintense set lesion at the lower pole of the right kidney which appears to represent a septated cystic lesion with enhancement. This measures 12 x 8 mm in size, slightly smaller than on the prior study (previously 13 x 11 mm). The left kidney is unremarkable. Lymph nodes: There is no retroperitoneal lymphadenopathy in the upper abdomen. Fluid: There is no ascites in the upper abdomen. Visualized bowel: The visualized bowels loops are unremarkable in appearance. Visualized bones: The visualized bones demonstrate normal marrow signal intensity. IMPRESSION: The previously seen Bosniak 3F right renal lesion appears minimally smaller, as described. Continued follow-up is recommended. Assessment & Plan Assessment & Plan (1) Right renal mass: Code(s): N28.89 - Other specified disorders of kidney and ureter Category: Medical Plan In office urinalysis results reviewed with the patient today; as noted above; will send for urine culture. PVR 0 mL Recent MRI results reviewed with the patient today; as noted above. Will continue with surveillance monitoring. We discussed importance of calling office with any UTI like symptoms. We discussed worsening symptoms. We discussed correlation of bowel issues with urinary tract infections. We discussed the importance of hydration relation urinary tract infections as well as overall health and well-being. Start Macrobid as discussed and prescribed. Follow-up in 3 months; or sooner with any issues, concerns, and or questions. Orders: Orders Urine Culture Today N39.0 - Urinary tract infection, site not specified AMB Urinalysis Automated Today Z13.9 - Encounter for screening, unspecified Medications: Changed From nitrofurantoin macrocrystal must administer with a meal/food 100 mg PO BID 28 caps 0RF 14 days N39.0 - Urinary tract infection, site not specified To nitrofurantoin macrocrystal must administer with a meal/food 100 mg PO BID 10 days 20 caps 0RF N39.0 - Urinary tract infection, site not specified Patient Instructions: The patient had an opportunity to ask questions regarding the treatment plan. A rosalind questions were answered. Physical exam, labs, and imaging were discussed and reviewed in detail. As well as risks, benefits, and discussion of treatment choices. No major barriers to understanding were identified. The patient expressed understanding and agreement with the above treatment plan. The patient was made aware they should contact our office by phone for worsening of their current condition, the appearance of new symptoms, or with any questions or concerns. Compliance is encouraged with any medications and follow up testing that is ordered. It is a privilege to be allowed the opportunity to participate in? your urological care.? Again, if you have any questions or concerns If you have any questions or concerns please do not hesitate to contact me. The office is [phone]. This note is constructed using voice recognition software. While every effort has been made to ensure accuracy hose suspender cutter errors may have been included. Yours sincerely, STEPHANIE Mir Coding Level of Care Code Est Pt Level 4 (39822) Complex EM visit Add On G2211 Diagnoses Right renal mass N28.89
--- OUTSIDE RECORDS SUMMARY | 2025-04-14 10:05 | XMS_ITS ---
Author Organization [facility] Address [address] [place] [address] Care Team Providers Care Glass Washer Name Role Phone Zac COOLEY, Percival Primary Care Provider UnaMatthew Garcia [phone] REASON FOR VISIT pt needs renewal of infusion order. Encounters Encounter Location Date Provider Diagnosis [facility] [address] [place] [address] [address] [place] [address] 02/24/2025 Matthew Alexis Plan Of Treatment Next Appt Details Provider Name:Matthew Alexis , 09/09/2025 10:20:00 AM, [address] [place] [address], [address], [place], [address], Progress Notes * LAMAR MISHRA MDOB: 5 (49 yo F)Acc No.[id number]:02/24/2025 Patient:?LAMAR MISHRA :1975???Age:49 Y???Sex:Female Address:[address] [place] [id number] * true * Date:? Generated for Printi patricia/Rekha/eTransmitting on:?04/14/2025 10:05 AM EDT
== END 2025-04-14 10:08 | disposition home or self-care (01) ==
LOC: HO.HUSH 09:26
PROVIDERS: PCP Internal Medicine; Visit Provider Nurse Practitioner Family
DX: N28.89 Other specified disorders of kidney and ureter (principal); Z13.9 Encounter for screening, unspecified
CPT/HCPCS: 99214; G2211

== ENCOUNTER 2025-04-14 09:26 | Outpatient (REF) | payer OTHER, SELFPAY | END 2025-04-14 09:27 | disposition home or self-care (01) | LOC: HO.LAB 09:26 | PROVIDERS: PCP Internal Medicine; Visit Provider Nurse Practitioner Family | DX: N28.89 Other specified disorders of kidney and ureter (principal); N39.0 Urinary tract infection, site not specified | CPT/HCPCS: 81003; 87086; 87088; 87186; 99212 ==

== ENCOUNTER 2025-04-15 09:06 | Outpatient (AMB) | payer OTHER, SELFPAY ==
[2025-04-15 09:15] VITALS: BP 120/84; PULSE 104; O2SAT 96; BMI 31.1
--- NOTE | 2025-04-15 09:15 | MHC.PC.OV ---
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 Required: No Accompanied by: Self / Same As Patient Allergies meperidine [From Demerol] Allergy (Severe, Verified 04/15/25 09:28) SWELLING,RASH,THROAT CLOSES latex [LATEX] Allergy (Mild, Verified 04/15/25 09:28) RASH codeine [Codeine] Adverse Reaction (Intermediate, Verified 04/15/25 09:28) NAUSEA/VOMITING, GI upset/vomiting duloxetine Adverse Reaction (Intermediate, Verified 04/15/25 09:28) headaches trazodone Adverse Reaction (Mild, Verified 04/15/25 09:28) Anxiety Fish Containing Products [Fish Product Derivatives] Adverse Reaction (Unknown, Verified 04/15/25 09:28) NAUSEA/VOMITING bupropion Adverse Reaction (Intermediate, Uncoded 04/15/25 09:28) increased headaches Medication List - Last Reconciled 04/15/25 by Jaswant Frank MD acetaminophen 1,000 mg PO DAILY PRN cholestyramine (with sugar) 4 gram 4 grams PO DAILY PRN clonidine HCl 0.1 mg PO TID PRN dicyclomine 10 - 20 mg PO QID duloxetine 30 mg PO BID 30 days [GRAB BAR As directed] lemborexant (Dayvigo) 10 mg PO BEDTIME PRN 30 days levonorgestrel (Mirena) intrauterine lorazepam 1 mg PO TID 30 days mesalamine ER 1,000 mg PO QID naratriptan take 1 tab at onset of headache; if no relief may repeat 1 tab after at least 4 hrs; max = 2 tabs/24 hrs PO nitrofurantoin macrocrystal 100 mg PO BID 10 days omeprazole 40 mg PO DAILY ondansetron 4 mg PO Q8H PRN polyethylene glycol 3350 (Miralax) 17 grams PO DAILY PRN [SHOWER CHAIR As directed] [Shower head with long hose As directed] sumatriptan succinate 50 mg PO DAILY MRX1 PRN suvorexant 20 mg PO BEDTIME 30 days tramadol 50 mg PO TID PRN 30 days vedolizumab (Entyvio) 300 mg IV Q4W Tobacco use date assessed: 04/15/25 Dental Screening Dental Screen Date: 04/15/25 Did you have a dental visit in the last 12 months?: Yes Did you have a dental problem in the last 6 months where you did not have access to dental care?: No Was dental information given to patient?: Patient has dentist HPI Annual exam HPI Details Patient comes in today for her annual physical examination States that she feels okay She denies any headaches or dizziness Denies any chest pains, no increased shortness of breath No nausea/vomiting, no abdominal pain No change in bowel habits noted She denies any acute urinary symptoms She had some labs done last week - to discuss her results Her last mammogram was done back in 2022 and she is overdue for her annual mammogram She has her yearly gynecology appt coming up with Dr. Davis in May 2025 Patient states that she has had a few colonoscopies done in the past and believes that she is updated with her colon cancer screening States that she follows up with Dr. Alexis regularly and recalls being advised by Dr. Alexis that she is not yet due for repeat colonoscopy at a recent visit but she is not exactly clear as to when her last colonoscopy date was PFS Medical History (Updated 04/15/25 @ 09:40 by Jaswant Frank MD) Crohn's disease Clostridioides difficile carrier Renal calculus, bilateral Postcoital bleeding Major depression, recurrent, chronic Furuncle Diverticulitis Obesity (BMI 30-39.9) Crohn's colitis Crohns disease of small intestine Intractable nausea and vomiting Migraine History of renal cell cancer (~2014) Osteoarthritis of hips, bilateral Depression Crohn's disease Lumbar degenerative disc disease Insomnia Anxiety 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 Surgical History Hx of colonoscopy History of esophagogastroduodenoscopy (EGD) History of removal of calculus of renal pelvis through percutaneous nephrostomy (~10/2015) History of cryosurgery (~04/20/15) History of intestinal surgery History of arthroplasty (~01/2012) Family History Father Crohn disease Migraine Cancer Mother HTN (hypertension) Vertigo Cervical cancer Maternal Grandmother HTN (hypertension) Hyperlipidemia Diabetes mellitus Paternal Grandmother Diabetes mellitus Other Mental health problem Social History Household Members: Family Housing: House Do you presently have visiting nurse or other home services: No Unable to assess alcohol history related to: Unable to respond Alcohol intake: current Alcohol intake frequency: holidays/special occasions only Patient Tobacco Use Status: Former Tobacco user Tobacco use type: Cigarette e-Cigarette/Vaping Use: Former Use Second Hand Smoke Exposure: Yes Substance Use Type: Marijuana Advance Directives Date on File: 06/15/22 service: No Current occupational status: unemployed Gender identity: Female Cognitive needs: No Hearing needs: No Vision needs: Yes (glasses) Female Reproductive History Menstrual Age of Menarche: 12 Questionnaire PHQ-9 Over the last 2 weeks, how often have you been bothered by any of the following problems? 1. Little interest or pleasure in doing things: more than half the days 2. Feeling down, depressed, or hopeless: several days 3. Trouble falling or staying asleep, or sleeping too much: several days 4. Feeling tired or having little energy: more than half the days 5. Poor appetite or overeating: several days 6. Feeling bad about yourself - or that you are a failure or have let yourself or your family down: several days 7. Trouble concentrating on things, such as reading the newspaper or watching television: several days 8. Moving or speaking so slowly that other people could have noticed. Or the opposite - being so fidgety or restless that you have been moving around a lot more than usual: not at all 9. Thoughts that you would be better off or of hurting yourself in some way: not at all Total score: 9 Depression Screening Interpretation: Positive Depression Screening Follow-up: Existing condition, In treatment and Community Mental Health Worker F/U Depression Screening Done: Yes 35577 - PHQ-9 Billing: Yes Source: Developed by Drs. Matthew Hernandez, Starr Jiménez, Billy Somers and colleagues, with an educational paxton from [employer]. Thrive Questionnaire Date Thrive assessed: 04/15/25 I am a: Patient What is your living situation today?: I have a steady place to live Within the past 12 months, did the food you bought not last and you didn't have the money to get more?: Sometimes True Within the past 12 months, did you worry whether your food would run out before you got money to buy more?: Sometimes True Do you have trouble paying for medicines?: No Do you have trouble getting transportation to medical appointments?: No Do you have trouble paying your heating and electricity bill?: Yes Do you have trouble taking care of your child, family member or friend?: No Do you have trouble with day-to-day activities such as bathing, preparing meals, shopping, managing finances, etc.?: No Are you currently unemployed and looking for a job?: No Are you interested in more education?: No Please select the resources that you would like help with: Food and Utilities Currently or been in a relationship where the following occur: No concerns reported THRIVE Score: 3 AUDIT C Alcohol Use Questionnaire (AUDIT-C) 1. How often do you have a drink containing alcohol?: Monthly or less 2. How many drinks containing alcohol do you have on a typical day when you are drinking?: 1 or 2 3. How often do you have six or more drinks on one occasion?: Never Total Score: 1 Score Reviewed/Action Taken: Yes MONTSE-7 AMB Questionnaire MONTSE-7 Date MONTSE - 7 assessed: 04/15/25 Feeling nervous, anxious, or on edge: 2 = More than half the days Not being able to stop or control worryin = Nearly every day Worrying too much about different things: 2 = More than half the days Trouble relaxin = More than half the days Being so restless that it is hard to sit still: 1 = Several days Becoming easily annoyed or irritable: 1 = Several days Feeling afraid as if something awful might happen: 1 = Several days Total MONTSE-7 score (0-4 normal; 5-9 mild; 10-14 moderate; 15-21 severe): 12 Source: Developed by Drs. Matthew Hernandez, Starr Jiménez, Billy Somers and colleagues, with an educational paxton from [employer]. Review of Systems Const Denies chills, Reports difficulty sleeping, Denies fatigue, Denies fever(s), Denies headache(s) and Denies malaise Eyes Denies blurry vision, Denies change in vision, Denies irritation and Denies itchy eyes ENT Denies dysphagia, Denies dizziness, Denies otalgia, Denies headache(s), Denies nasal congestion, Denies neck pain, Denies odynophagia, Denies sinus pain and Denies sore throat Card Denies chest pain, Denies rapid heart rate, Denies irregular heart rhythm, Denies palpitations and Denies dyspnea Resp Denies chest congestion, Denies cough, Denies dyspnea and Denies wheezing GI Denies abdominal pain, Denies bloating, Denies constipation, Denies dysphagia, Denies heartburn, Denies diarrhea, Denies nausea, Denies odynophagia and Denies vomiting Denies hematuria, Denies urinary frequency, Denies dysuria, Denies urinary incontinence and Denies urinary urgency Musc Reports back pain (over the lower back - chronic), Denies arthralgias, Denies joint swelling, Denies muscle weakness and Denies neck pain Skin/Breast Denies breast pain, Denies breast mass, Denies change in pigmentation, Denies lesions, Denies rash and Denies unusual bruising Neuro Denies dizziness, Denies headache(s) and Denies paresthesias Psych Denies anxiety and Denies depression Endo Denies fatigue and Denies palpitations Jf/Lymph Denies easy bruising Aller/Immun Denies itchy eyes and Denies wheezing Physical exam (Primary Care) Vital Signs: Last Vital Signs Pulse 104 H 04/15/25 09:15 BP 120/84 04/15/25 09:15 Pulse Ox 96 04/15/25 09:15 Oxygen Delivery Method Room Air 04/15/25 09:15 BMI result Body Mass Index 31.1 Tobacco/Smoking Status: Tobacco use Status Tobacco use date assessed 04/15/25 04/15/25 09:25 Patient Tobacco Use Status Former Tobacco user 04/15/25 09:25 Tobacco use type Cigarette 04/15/25 09:25 e-Cigarette/Vaping Use Former Use 04/15/25 09:25 PHQ-9: PHQ-9 Score PHQ-9: Total score 9 04/15/25 09:44 Depression Screening Interpretation: Positive Depression Screening Follow-up: Existing condition, In treatment and Community Mental Health Worker F/U Thrive Assessment: Date of Thrive Assessment Date Thrive assessed 04/15/25 04/15/25 09:25 Currently or been in a relationship where the following occur: No concerns reported Const General: no acute distress, alert and awake Orientation/consciousness: patient oriented x3 HENMT Head: Yes normocephalic and Yes atraumatic Ears: external ears normal, TM's normal bilaterally and EAC's normal General nose exam: No nasal discharge present Face and sinus: Yes normal facial exam and Yes sinuses nontender Teeth and gingiva: dentition normal Throat: Yes posterior oropharynx normal and Yes tonsils normal (no TP congestion) Eyes Eyelids: Yes eyelids normal Conjunctivae: conjunctivae normal Pupils: Equal, round and reactive pupils present EOM: EOMs intact bilaterally Neck Neck: Yes no lymphadenopathy and Yes supple Thyroid: Thyroid normal Resp Auscultation: clear to auscultation bilaterally, no rales and no wheezes Cardio Rate: regular rate Rhythm: regular rhythm Heart sounds: no murmurs GI Palpation (GI): Soft to palpation, nontender and No hepatosplenomegaly present Auscultation: normal bowel sounds General: Yes no CVA tenderness Back/Spine/Pelvis Back: no CVA tenderness Thoracic/Lumbar Spine: thoracic and lumbar spine normal to inspection and lumbar spinal tenderness Skin Lesions: no lesions Rashes: no rashes Neuro General: patient oriented x3, moves all extremities, no focal motor deficits and CN's II-XI intact bilaterally Cranial nerves: Yes Equal, round and reactive pupils present Cognition (Neuro): normal cognition Gait exam (Neuro): Normal gait present Extrem General: Yes no clubbing, cyanosis or edema Results Reviewed Results Reviewed: Laboratory Tests 04/07/25 11:06 WBC 9.1 Hgb 13.1 Hct 40.7 Plt Count 350 Total Bilirubin 0.1 Direct Bilirubin < 0.2 AST 21 ALT 18 Coding Level of Care Code Est Pt Prev Care 40-64y(15638) Diagnoses Annual physical exam Z00.00 Crohn's disease without complication, unspecified gastrointestinal tract location K50.90 Digestive disease complication type: without complication Gastrointestinal tract location: unspecified location Degeneration of intervertebral disc of lumbar region with discogenic back pain M51.360 Disc-related pain type: discogenic back pain only Migraine without status migrainosus, not intractable, unspecified migraine type G43.909 Intractability: not intractable Migraine type: unspecified Status migrainosus presence: without status migrainosus Impaired fasting glucose R73.01 Insomnia, unspecified type G47.00 Insomnia type: unspecified Anxiety F41.9 Obesity (BMI 30-39.9) E66.9 Additional Codes PHQ-9 - 26892 - PHQ-9 Billing: Yes ([id number]) Assessment & Plan Assessment & Plan (1) Annual physical exam: Code(s): Z00.00 - Encounter for general adult medical examination without abnormal findings Category: Medical Plan: Results of her labs done last week reviewed and discussed with patient although these are limited so will send her for some additional labs SOCORRO to complete her annual exam Her last mammogram was done back in 2022 and she is overdue for her annual mammogram She has her yearly gynecology appt coming up with Dr. Davis in May 2025 Patient states that she has had a few colonoscopies done in the past and believes that she is updated with her colon cancer screening States that she follows up with Dr. Alexis regularly and recalls being advised by Dr. Alexis that she is not yet due for repeat colonoscopy at a recent visit but she is not exactly clear as to when her last colonoscopy date was (2) Crohn's disease: Code(s): K50.90 - Crohn's disease, unspecified, without complications Category: Medical Qualifiers: Digestive disease complication type: without complication Gastrointestinal tract location: unspecified location Qualified Code(s): K50.90 - Crohn's disease, unspecified, without complications Plan: Continue Entyvio 300 mg SQ every 6 weeks, Mesalamine ER 1000 mg QID and Budesonide ER 3 mg 3 capsules (900 mg) QD Her abdominal MRI done last year revealed (+) mild improvement in the transmural wall thickening at the terminal ileum, suggesting some improvement Follow up with GI (Dr. Alexis) as scheduled (3) Lumbar degenerative disc disease: Code(s): M51.36 - Other intervertebral disc degeneration, lumbar region Category: Medical Qualifiers: Disc-related pain type: discogenic back pain only Qualified Code(s): M51.360 - Other intervertebral disc degeneration, lumbar region with discogenic back pain only Plan: Reinforced activity and weight-lifting restrictions Continue Tramadol 50 mg TID PRN for pain (4) Migraine: Code(s): G43.909 - Migraine, unspecified, not intractable, without status migrainosus Category: Medical Qualifiers: Intractability: not intractable Migraine type: unspecified Status migrainosus presence: without status migrainosus Qualified Code(s): G43.909 - Migraine, unspecified, not intractable, without status migrainosus Plan: Continue Sumatriptan 50 mg PRN for headaches - feels that this is helping Continue Excedrin PRN and Ondansetron PRN for nausea/vomiting Topiramate (for LUNDBERG prophylaxis) was discontinued previously due to its potential interactions with Mirena; patient reports experiencing frequent headaches since Patient also relates experiencing a significant increase in her headaches when she was started on Bupropion XL and Buspirone last year - headaches have subsided since she was instructed to STOP taking them If her headaches get worse or progress, will consider referring her back to neurology for consultation (5) Impaired fasting glucose: Code(s): R73.01 - Impaired fasting glucose Category: Medical Plan: Her FBS was elevated on her labs done a few months ago - this was most likely due to the effects of Prednisone, which she has been off (completed Tx) for a while now In-office HgbA1c was normal at 5.6% when previously checked Will continue to monitor her blood sugar closely Reinforced again low calorie/low carb diet to help control her blood sugar better (6) Insomnia: Code(s): G47.00 - Insomnia, unspecified Category: Medical Qualifiers: Insomnia type: unspecified Qualified Code(s): G47.00 - Insomnia, unspecified Plan: Sleep hygiene reinforced Continue Dayvigo 10 mg Q HS She has been checked out and advised by Sleep Medicine last year that she does NOT have FAISAL She was previously tried on Belsomra, which she felt helped with her sleep but this was denied by her insurance and her previous Zolpidem was no longer helping her Follow up with Sleep Medicine as scheduled (7) Anxiety: Code(s): F41.9 - Anxiety disorder, unspecified Category: Medical Plan: continue Lorazepam 1 mg TID PRN and Clonidine 0.1 mg TID PRN Continue Duloxetine 30 mg BID Follow up with psychiatry as scheduled (8) Obesity (BMI 30-39.9): Code(s): E66.9 - Obesity, unspecified Category: Medical Plan: Reinforced diet/exercise as tolerated/lose weight Plan Follow-up in 4 months Orders: Orders MM tomosynthesis screening BI 04/15/25 Z12.31 - Encounter for screening mammogram for malignant neoplasm of breast
--- OUTSIDE RECORDS SUMMARY | 2025-04-15 09:27 | XMS_ITS | Data Portability ---
Author Organization [employer] Address [address] [place] [id number] Care Team Providers Care Tin Worker Name Role Phone HIM CCA OTHER Assessment [...] Not available Not available Not available 09/15/2024 [id number] RxNorm Not Available [employer] - production 4 03:47:51 8940 trazodone medicatio n Not available Not available Not available 09/15/2024 [id number] RxNorm Not Available [employer] - production 4 03:47:51 Medications Name Sig [...] % 98 % 94 /min 18 /min 99197.8 g 99.8 [degF] 164 mm[Hg] 84 mm[Hg] [...] SNOMED-CT Code Diagnosis ICD10 Code Diagnosis Note [id number] Zoraida Schwartz MD Main - [facility] [address] [place] [id number] 08/21/2024 10:44:42 08/24/2024 12:31:05 Nausea and vomiting [id number] R11.2 I provided real -time medical direction via phone for this encounter, and was available for additional phone based assistance as needed. I have reviewed and agree with the Assessment and Plan as documented by the Director Supplier Quality. Patient given the opportunit y to ask questions. 49 yo F w/ h/o crohn's and diverticul itis with h/o recurrent episodes of nausea/jacobo sis treated with supportive care (IV fluids and zofran in the ED) who p/w episode of n/v x1d. noting significan t associated anxiety. No hematemesi s or no hematochez ia. Exam reassuring . Director Supplier Quality unable to obtain IV access despite multiple [...] Tristan Member ID Guarantor Name 08/21/2024 1 [facility] - DOS ON OR AFTER 2023 - DUAL ELIGIBLE - [facility] OPTIONS AND ONE CARE (MEDICARE REPLACEMENT/ADV ANTAGE - HMO) Gabi Perales [id number] Gabi Perales Notes Date Note Type Note [...] ................... ................... ................... ................... ................... ................... ........ Director Supplier Quality Note From Roni Herring: Pt co nausea [...] ........ Disposition: Fulfilled Zoraida Schwartz MD [address] [facility],[address], [place], [phone], [employer] 08/21/2024 22:44:48 OBGyn Episode No OBEpisode recorded.
== END 2025-04-15 09:48 | disposition home or self-care (01) ==
LOC: HO.HMCH 09:07
PROVIDERS: PCP Internal Medicine; Visit Provider Internal Medicine
DX: Z00.00 Encounter for general adult medical examination without abnormal findings (principal); K50.90 Crohn's disease, unspecified, without complications; E66.9 Obesity, unspecified; Z68.31 Body mass index [BMI] 31.0-31.9, adult; M51.360 Other intervertebral disc degeneration, lumbar region with discogenic back pain only; G43.909 Migraine, unspecified, not intractable, without status migrainosus; R73.01 Impaired fasting glucose; G47.00 Insomnia, unspecified; F41.9 Anxiety disorder, unspecified

== ENCOUNTER → 2025-04-15 09:06 | Outpatient (BNVA) | payer OTHER, SELFPAY | PROVIDERS: PCP Internal Medicine; Visit Provider Internal Medicine | DX: Z13.89 Encounter for screening for other disorder (principal) | CPT/HCPCS: 96127; 99396 ==

== ENCOUNTER 2025-04-15 11:11 | Outpatient (REF) | payer OTHER, SELFPAY ==
[2025-04-15 13:17] LABS: MANUAL DIFF FLAG NO
[2025-04-15 13:26] LABS: Basophils Absolute Auto 0.1 X10*3/uL (0.0-0.2); Basophils Percent Auto 0.9 % (0-2); Eosinophils Absolute Auto 0.5 X10*3/uL (0.0-0.4); Hemoglobin 13.3 g/dl (12.0-16.0); Imm Gran Abs Auto 0.06 X10*3/uL (0.00-0.03); Imm Gran Pct Auto 0.8 % (0.0-0.4); Lymphocytes Absolute Auto 1.9 X10*3/uL (1.2-4.9); Mean Corpuscular HGB Conc 31.7 g/dl (31.0-35.0); Mean Corpuscular Hemoglobin 29.3 pg (27.0-33.0); Mean Corpuscular Volume 92.5 fL (80.0-98.0); Mean Platelet Volume 9.7 fL (9.4-12.3); Monocytes Absolute Auto 0.7 X10*3/uL (0.1-1.2); Monocytes Percent Auto 8.5 % (2-11); Neutrophils Absolute Auto 4.6 x10*3/uL (2.0-8.3); Neutrophils Percent Auto 58.8 % (45-73); Platelet Count 336 X10*3/uL (160-400); Red Blood Count 4.54 X10*6/uL (4.20-5.50); Red Cell Distribution Width 15.5 % (11.0-16.0); White Blood Count 7.8 X10*3/uL (4.8-10.8)
[2025-04-15 13:49] LABS: Appearance Urine Clear; Color Urine Yellow; Glucose Urine UA Negative (Negative); Leukocyte Esterase Urine Small (1+) (Negative); Nitrite Urine Negative (Negative); Specific Gravity - Urine 1.025 (1.005-1.025); UMIC TRIGGER UACC YES; Urine Blood Negative (Negative); Urine Ketones Negative (Negative); Urine Protein Negative (Neg-Trace)
[2025-04-15 13:56] LABS: Alanine Aminotransferase 23 U/L (0-31); Albumin Level 3.7 g/dL (3.5-5.0); Alkaline Phosphatase 104 U/L (39-117); Anion Gap 10 (12-20); Aspartate Amino Transferase 20 U/L (5-31); Bilirubin Total 0.2 mg/dL (0.0-1.0); Blood Urea Nitrogen 17 mg/dL (9-16); Calcium 9.5 mg/dL (8.4-10.2); Carbon Dioxide 29 mmol/L (22-29); Chloride 108 mmol/L (96-108); Cholesterol 217 mg/dL (<200); Estimated Glomerular Filt Rate > 60; Glucose Fasting 103 mg/dL (60-99); HDL Cholesterol 61 mg/dL (>40); LDL Cholesterol Calculated 134 mg/dL (<100); Sodium 142 mmol/L (135-145); Triglycerides 111 mg/dL (<150)
[2025-04-15 14:01] LABS: Bacteria Urine 1+ (None Seen); Hyaline Casts Urine 0-2 /LPF (0-2); RBC Urine 0-2 /HPF (0-2); TSH reflex Free T4 1.41 uIU/mL (0.32-4.0); UACC Culture Trigger YES; Vitamin D 25-OH Total 23.4 ng/mL (>30)
== END 2025-04-15 11:12 | disposition home or self-care (01) ==
LOC: HO.10HDL 11:11
PROVIDERS: Visit Provider Internal Medicine
DX: Z00.00 Encounter for general adult medical examination without abnormal findings (principal); D64.9 Anemia, unspecified; E78.00 Pure hypercholesterolemia, unspecified; E55.9 Vitamin D deficiency, unspecified; R30.0 Dysuria
CPT/HCPCS: 36415; 80053; 80061; 81001; 82306; 84443; 85025; 87086; 96127; 99396

== ENCOUNTER 2025-04-27 12:29 | Outpatient (REF) | payer OTHER, SELFPAY ==
--- OUTSIDE RECORDS SUMMARY | 2025-04-27 14:40 | XMS_ITS | Data Portability ---
Author Organization [facility], [employer] [facility] Address [address] [place] [phone] Care Team Providers Care Aircraft Systems Technician Name Role Phone HIM CCA OTHER Assessment [...] Not available Not available Not available 09/15/2024 [id number] RxNorm Not Available [employer] - production 4 03:47:51 8940 trazodone medicatio n Not available Not available Not available 09/15/2024 [id number] RxNorm Not Available [employer] - production 4 03:47:51 Medications Name Sig [...] % 98 % 94 /min 18 /min 17047.8 g 99.8 [degF] 164 mm[Hg] 84 mm[Hg] [...] SNOMED-CT Code Diagnosis ICD10 Code Diagnosis Note [id number] Zoraida Schwartz MD Main - [facility] [address] [place] [phone] 08/21/2024 10:44:42 08/24/2024 12:31:05 Nausea and vomiting [id number] R11.2 I provided real -time medical direction via phone for this encounter, and was available for additional phone based assistance as needed. I have reviewed and agree with the Assessment and Plan as documented by the Binding Dyer. Patient given the opportunit y to ask questions. 49 yo F w/ h/o crohn's and diverticul itis with h/o recurrent episodes of nausea/jacobo sis treated with supportive care (IV fluids and zofran in the ED) who p/w episode of n/v x1d. noting significan t associated anxiety. No hematemesi s or no hematochez ia. Exam reassuring . Binding Dyer unable to obtain IV access despite multiple [...] Tristan Member ID Guarantor Name 08/21/2024 1 [facility] - DOS ON OR AFTER 2023 - DUAL ELIGIBLE - [facility] OPTIONS AND ONE CARE (MEDICARE REPLACEMENT/ADV ANTAGE - HMO) Gabi Perales [id number] Gabi Perales Notes Date Note Type Note [...] ................... ................... ................... ................... ................... ................... ........ Binding Dyer Note From Roni Herring: Pt co nausea [...] ........ Disposition: Fulfilled Zoraida Schwartz MD [address] [facility],[address], [place], [phone], [employer] 08/21/2024 22:44:48 OBGyn Episode No OBEpisode recorded.
== END 2025-04-27 12:30 | disposition home or self-care (01) ==
LOC: HO.MAMMO 12:29
PROVIDERS: PCP Internal Medicine; Visit Provider Internal Medicine
DX: Z12.31 Encounter for screening mammogram for malignant neoplasm of breast (principal)
CPT/HCPCS: 77063; 77067

== ENCOUNTER → 2025-04-27 12:45 | Outpatient (BNV) | payer OTHER, SELFPAY | PROVIDERS: PCP Internal Medicine; Visit Provider Internal Medicine | DX: Z12.31 Encounter for screening mammogram for malignant neoplasm of breast (principal) | CPT/HCPCS: 77063; 77067 ==

== ENCOUNTER 2025-06-30 16:56 | Emergency (ER) | payer OTHER, SELFPAY ==
--- NOTE | ~2025-06-30 | CT_ITS ---
CLINICAL HISTORY: LLQ Tenderness; Hx Diverticulitis CT abdomen and pelvis with contrast Comparison: 08/21/2023 Findings: Lung bases are clear. No acute bony abnormalities. Degenerative change in bilateral hips. Prior left hip fracture fixation hardware. Liver and spleen within normal limits. Pancreas and adrenal glands unremarkable. Gallbladder is within normal limits. No significant focal renal abnormalities. No renal stones or hydronephrosis. Focal right renal scarring, unchanged. Abdominal aorta is normal in caliber. No free fluid or adenopathy in the pelvis. No diverticulitis. Appendix unremarkable. Uterus normal size with an IUD. No right adnexal abnormality. 2.8 cm left ovarian cyst. Impression: No acute process This document has been electronically signed by: Angelito Troy MD on 06/30/2025 20:56:23
--- NOTE | ~2025-06-30 | CT_ITS ---
CLINICAL HISTORY: altered, lethargic CT head without contrast. COMPARISON: None provided. FINDINGS: The visualized paranasal sinuses are clear. The mastoid air cells are clear. No calvarial fracture. No evidence for mass or mass effect. No intracranial hemorrhage or abnormal extra-axial fluid collection. No CT evidence of acute infarct. No evidence of hydrocephalus. The basilar cisterns are patent. Posterior fossa appears unremarkable. IMPRESSION: 1. No acute intracranial findings. This document has been electronically signed by: Landen Lyles MD on 06/30/2025 18:07:45
--- NOTE | 2025-06-30 16:59 | ED_ITS ---
HPI - General Adult General Chief complaint: Altered Mental Status Stated complaint: ? if overtook medication, drowsy Time Seen by Provider: 06/30/25 18:47 Source: patient and family Mode of arrival: ambulatory Limitations: no limitations History of Present Illness ED Provider: Keyur FORRESTER HPI narrative: The patient is a 49-year-old female presenting to the ED with her family reported patient was acting at her baseline state of health throughout the morning, however patient is subsequently became acutely altered, reportedly around 13:00 came into the kitchen, took a piece of leftover cake from a recent constitution party out of the tin foil and then tried to microwave the tin foil, but was stopped by her son, patient has subsequently took out a trash bag and attempted to cover the cake with the trash bag, after she was stopped from doing that the patient returned to her room and has been sleeping throughout the remainder of the afternoon. Patient's family became concerned by her abnormal behavior and brought her to the ED for evaluation. The patient arrives to the ED lethargic, reportedly falling asleep during triage process. Patient was making odd statements that she ate dog food at home however family states they do not have a dog in the home. At the time of this provider's assessment the patient is mentation has improved greatly, patient wakes readily to verbal stimuli, is alert and oriented x3. At time of interview the patient states she remembers helping her son this morning but then does not recall the events of the afternoon. Patient reports she is taking all of her medications as prescribed, denies any abuse of her medications or double dosing. The patient does report 1 week ago her mesalamine was increased from 2 tabs q.i.d. to 4 tabs q.i.d. The patient also admits to eating a marijuana gummy, around lunchtime today, approximately 5-10 mg, but states this is not abnormal for her and advises the gummy came from a reputable dispensary. The patient reports a history of Crohn's disease and diverticulitis, reports currently she is experiencing pain in the left lower quadrant without associated nausea, vomiting, diarrhea, or fever/chills. The patient reports continued fatigue, denies chest pain, shortness of breath, headache, focal neurologic deficit, or dizziness. Related Data Home Medications ?Medication ?Instructions ?Recorded ?Confirmed dicyclomine 10 mg capsule 10 - 20 mg PO QID Gastrointe stinal 07/17/22 04/15/25 Spasms Or Cramping vedolizumab 300 mg intravenous 300 mg IV Q4W 10/16/22 04/15/25 solution (Entyvio) mesalamine 500 mg capsule,extended 1,000 mg PO QID 04/15/25 release omeprazole 40 mg capsule,delayed 40 mg PO DAILY 04/15/25 release cholestyramine (with sugar) 4 gram 4 g PO DAILY PRN Di arrhea 04/02/24 04/15/25 oral powder acetaminophen 500 mg tablet 1,000 mg PO DAILY PRN Pain 06/06/24 04/15/25 polyethylene glycol 3350 17 17 g PO DAILY PRN Constipa tion 06/06/24 04/15/25 gram/dose oral powder (Miralax) levonorgestrel (Mirena) intrauterine 07/28/24 Previous Rx's ?Medication ?Instructions ?Recorded ondansetron 4 mg disintegrating 4 mg PO Q8H PRN nausea and 06/12/24 tablet vomiting #20 tabs GRAB BAR #1 ea 12/16/24 SHOWER CHAIR #1 ea 12/16/24 Shower head with long hose #1 ea 12/16/24 naratriptan 2.5 mg tablet See Rx Instructions PO .COMP KAROLINA 03/11/25 #10 tabs nitrofurantoin macrocrystal 100 mg 100 mg PO BID 10 da ys #20 caps 04/14/25 capsule clonidine HCl 0.1 mg tablet 0.1 mg PO TID PRN for anxi ety #270 05/20/25 tabs lemborexant 10 mg tablet (Dayvigo) 10 mg PO BEDTIME ND N insomnia 30 05/31/25 days #30 tabs suvorexant 20 mg tablet 20 mg PO BEDTIME insomnia 30 days 05/31/25 #30 tabs tramadol 50 mg tablet 50 mg PO TID PRN pain 30 day s #90 06/23/25 tabs sumatriptan succinate 50 mg tablet 50 mg PO DAILY MRX1 PRN Migraine 06/27/25 Headache #30 tabs duloxetine 30 mg capsule,delayed 30 mg PO BID 30 days #60 caps 06/28/25 release lorazepam 1 mg tablet 1 mg PO TID anxiety 30 days #90 06/28/25 tabs Allergies Allergy/AdvReac Type Severity Reaction Status Date / Time meperidine (From Demerol) Allergy Severe SWELLING,RASH,THROAT Verified 06/30/25 17:03 CLOSES latex (LATEX) Allergy Mild RASH Verified 06/30/25 17:03 codeine (Codeine) AdvReac Intermediate NAUSEA/VOMITING, Verified 06/30/25 17:03 GI upset/vomiting duloxetine AdvReac Intermediate headaches Verified 06/30/25 17:03 trazodone AdvReac Mild Anxiety Verified 06/30/25 17:03 Fish Containing Products AdvReac Unknown NAUSEA/VOMI Verified 06/30/25 17:03 (Fish Product Derivatives) TING bupropion AdvReac Intermediate increased Uncoded 06/30/25 17:03 headaches Review of Systems 2 Review of Systems: Yes all other systems are reviewed and are negative PMFSH Past Medical History Medical History (Updated 06/30/25 @ 21:49 by Keyur Wood PA-C) Crohn's disease Clostridioides difficile carrier Renal calculus, bilateral Postcoital bleeding Major depression, recurrent, chronic Furuncle Diverticulitis Obesity (BMI 30-39.9) Crohn's colitis Crohns disease of small intestine Intractable nausea and vomiting Migraine History of renal cell cancer (~2014) Osteoarthritis of hips, bilateral Depression Crohn's disease Lumbar degenerative disc disease Insomnia Anxiety 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 Surgical History Hx of colonoscopy History of esophagogastroduodenoscopy (EGD) History of removal of calculus of renal pelvis through percutaneous nephrostomy (~10/2015) History of cryosurgery (~04/20/15) History of intestinal surgery History of arthroplasty (~01/2012) Family History Family History Father Crohn disease Migraine Cancer Mother HTN (hypertension) Vertigo Cervical cancer Maternal Grandmother HTN (hypertension) Hyperlipidemia Diabetes mellitus Paternal Grandmother Diabetes mellitus Other Mental health problem Social History Social History Household Members: Family Housing: House Do you presently have visiting nurse or other home services: No Unable to assess alcohol history related to: Unable to respond Alcohol intake: current Alcohol intake frequency: holidays/special occasions only Patient Tobacco Use Status: Former Tobacco user Tobacco use type: Cigarette e-Cigarette/Vaping Use: Former Use Second Hand Smoke Exposure: Yes Substance Use Type: Marijuana Advance Directives: Yes Advance Directives on File: Yes Advance Directives Date on File: 06/15/22 Do you have a plan to hurt others: No Plan service: No Current occupational status: unemployed Gender identity: Female Cognitive needs: No Hearing needs: No Vision needs: Yes (glasses) Physical Exam ED Vital Signs: Vital Signs - 24 hr 06/30/25 17:00 06/30/25 18:01 06/30/25 20:59 Temperature 97.9 F 97.6 F 98.7 F Pulse Rate 62 56 70 Respiratory Rate 20 17 13 Blood Pressure 116/56 L 106/41 L 128/69 Pulse Oximetry 99 98 100 Oxygen Delivery Method Room Air Room Air Room Air BMI result Body Mass Index 29.3 CONSTITUTIONAL: The patient appears non-toxic, well nourished and in no acute distress. Vital signs as documented. HEAD: Atraumatic, normocephalic. EYES: EOMs grossly intact, pupils equal, conjunctiva clear, no exudate. ENT: Nares patent, no discharge. Airway patent, no audible stridor, visible mucosa is pink and moist without noted lesions. NECK: Trachea is midline, no obvious masses or gross abnormalities. CHEST: Symmetric movement, normal appearance. LUNGS: LS present and CTAB, no w/r/r. Non-labored work of breathing. CARDIAC: Regular Rhythm, S1/S2 appreciated, no murmurs, rubs or gallops. ABDOMEN: Abdomen soft and non-tender x4 quadrants, no palpable masses or organomegaly. : Deferred. EXTREMITIES: Normal tone, moves all extremities spontaneously without reported pain. No obvious acute injury or deformity noted. NEURO: Alert and oriented x3, CN II-XII appear grossly intact. Cerebellar Functioning grossly intact. No obvious sensory or motor deficits. Speech clear and appropriate. PSYCH: normal affect, appropriate eye contact, fluid speech, with appropriate response to questioning. No reported suicidality or homicidality. SKIN: Warm, dry, color appropriate, normal turgor. No rashes noted. Course Course Course Narrative: This is a rapid medical exam performed by Estefania Mack NP: Additional HPI, ROS, PE not included below will be deferred to primary provider. Patient is a 49- year old female presenting to the ED with sons, stating that she accidentally ate dog food. Sons state that 3-4 hours ago they noted patient fell asleep on the couch after making a sandwich and fell asleep with the full sandwich on top of her. Family woke her up and put her in the shower which did not help. Patient was trying to reheat a cake in the microwave, put it into microwave with foil on it. Making statements that don't make any sense. Minimally responsive in triage, very lethargic but maintaining airway. Sons questioning if she took too much medication accidentally? On many medications. Lips are blue, sons state this is from cake frosting. Plan: EKG, labs, CT head Medications Administered Discontinued Medications Generic Name Dose Route Start Last Admin Trade Name Freq PRN Reason Stop Dose Admin Sodium Chloride 1,000 mls @ 999 mls/hr 06/30/25 20:00 06/30/25 21:28 Ns IV 06/30/25 21:00 999 mls/hr .Q1H1M BENJAMIN Administration Iohexol 85 ml 06/30/25 20:20 06/30/25 20:21 Iohexol 350 Mg/Ml 100 Ml Infus..Btl IV 06/30/25 20:21 85 ml ONCE ONE Administration Medical Decision Making Medical Decision Making MDM Narrative: 8:08 PM 06/30/2025 (Arley FORRESTER): The patient is a 49-year-old female presenting to the ED with her family reporting concern that patient has been displaying odd behavior and severe fatigue throughout the afternoon today. Patient reports when we go mesalamine was increased, reports compliance with all medications. Patient also admits to marijuana use which is not outside her baseline. Patient reports severe fatigue as well as left lower quadrant abdominal pain. Patient's exam is positive for tenderness, patient reportedly arrived to the ED highly confused, however at the time of this provider's interview patient is alert and oriented x3. Patient does not recall the events of the afternoon. The patient's laboratory evaluation shows normal ammonia, no leukocytosis, anemia, significant electrolyte abnormality, or SARAH BETH. LFTs are unremarkable. Patient's urinalysis shows no evidence of infection. Patient's urine toxicology shows positive for marijuana, also positive for phencyclidine, patient and family adamantly denies any access to, or history of use of PCP. Of note patient does take Ultram regularly, question if this created a false positive. Alcohol level is negative. EKG is nonischemic, CT head shows no acute intracranial pathology. The exact cause of the patient's altered mental status is not entirely clear, maybe a component of polypharmacy combined with marijuana use. Patient's chart review reveals no previous visits for altered mental status. The patient will be sent for a CT abdomen and pelvis to evaluate left lower quadrant abdominal pain., we will fluid hydrate and continue to monitor for continued clearance of altered mental status. 9:43 PM 06/30/2025 (Arley FORRESTER): The patient's CT abdomen and pelvis is negative for acute process. The patient has maintained her mentation, patient is normotensive, not tachycardic, with normal oxygenation and no fever. The exact cause of the patient's altered mental status earlier this afternoon is not entirely clear, however given the patient's clearing of mentation, reassuring neurologic, infectious, metabolic, and intra-abdominal workup, patient is likely appropriate for discharge. The patient will be ambulated to ensure steady gait and we will prep for discharge. The patient's presentation may be due to her recent change in medication compounded by marijuana use. Admission/Observation Consideration of admission/observation: Escalation of care including admission/observation considered Lab Data MDM Lab Attestation statement: I reviewed the patient's lab results. 06/30/25 17:41 06/30/25 17:41 Labs: Lab Results 06/30/25 Range/Units 17:41 WBC 7.1 (4.8-10.8) X10*3/uL RBC 4.26 (4.20-5.50) X10*6/uL Hgb 12.8 (12.0-16.0) g/dl Hct 40.1 (37.0-47.0) % MCV 94.1 (80.0-98.0) fL MCH 30.0 (27.0-33.0) pg MCHC 31.9 (31.0-35.0) g/dl RDW 14.2 (11.0-16.0) % Plt Count 269 (160-400) X10*3/uL MPV 10.0 (9.4-12.3) fL Immature Gran % (Auto) 0.4 (0.0-0.4) % Neut % (Auto) 58.1 (45-73) % Lymph % (Auto) 25.4 (20-40) % [place] % (Auto) 9.0 (2-11) % Eos % (Auto) 6.5 H (0-4) % Baso % (Auto) 0.6 (0-2) % Lymph # (Auto) 1.8 (1.2-4.9) X10*3/uL [place] # (Auto) 0.6 (0.1-1.2) X10*3/uL Eos # (Auto) 0.5 H (0.0-0.4) X10*3/uL Baso # (Auto) 0.0 (0.0-0.2) X10*3/uL Abs Immat Gran (auto) 0.03 (0.00-0.03) X10*3/uL Absolute Neuts (auto) 4.1 (2.0-8.3) x10*3/uL Absolute Nucleated RBC 0.000 (0.0-0.012) X10*3/uL Nucleated RBC % (auto) 0.0 (0.0-0.2) /100WBC Sodium 140 (135-145) mmol/L Potassium 4.2 (3.3-5.1) mmol/L Chloride 109 H (96-108) mmol/L Carbon Dioxide 24 (22-29) mmol/L Anion Gap 11 L (12-20) BUN 15 (9-16) mg/dL Creatinine 0.84 (0.5-1.4) mg/dL Estim Creat Clear Calc 75.6 Estimated GFR > 60 Random Glucose 96 (60-115) mg/dL Calcium 9.2 (8.4-10.2) mg/dL Total Bilirubin 0.2 (0.0-1.0) mg/dL AST 23 (5-31) U/L ALT 12 (0-31) U/L Alkaline Phosphatase 79 (39-117) U/L Ammonia 23 (13-55) umol/L Total Protein 7.0 (6.5-8.0) g/dL Albumin 3.8 (3.5-5.0) g/dL Urine Color Dark Yellow Urine Appearance Cloudy Urine pH 5.5 (5.0-9.0) Ur Specific Only >= 1.030 H (1.005-1.025) Urine Protein Trace (Neg-Trace) mg/dL Urine Glucose (UA) Negative (Negative) mg/dL Urine Ketones Trace (Negative) mg/dL Urine Blood Negative (Negative) Urine Nitrite Negative (Negative) Ur Leukocyte Esterase Trace H (Negative) Urine RBC 0-2 (0-2) /HPF Urine WBC 0-5 (0-5) /HPF Ur Squamous Epith Cells >20 (0-2) /HPF Urine Bacteria 4+ (None Seen) Hyaline Casts 3-5 (0-2) /LPF Salicylates < 5.0 L (15-30) mg/dL Urine Opiates Screen Not Detected (Not Detect) Ur Buprenorphine Scrn Not Detected (Not Detect) ng/mL Ur Oxycodone Screen Not Detected (Not Detect) ng/mL Urine Methadone Screen Not Detected (Not Detect) ng/mL Urine Fentanyl Screen Not Detected (Not Detect) Acetaminophen < 3 (<30) mcg/mL Ur Barbiturates Screen Not Detected (Not Detect) Ur Phencyclidine Scrn POSITIVE H (Not Detect) Ur Amphetamines Screen Not Detected (Not Detect) U Benzodiazepines Scrn Not Detected (Not Detect) Urine Cocaine Screen Not Detected (Not Detect) U Marijuana (THC) Screen POSITIVE H (Not Detect) Ethyl Alcohol < 10 mg/dL Independent Interpretation I performed an independent interpretation of an: EKG (EKG shows sinus bradycardia with a rate of 58, no evidence of acute ischemia, no ST elevation, no ectopy. QTC 433. Compared to previous on 06/06/2024 there are no acute morphology changes.) Radiology Impression Discussion of test interpretation with radiology: I have reviewed the radiologist's reading. Radiologist Impression: CLINICAL HISTORY: altered, lethargic CT head without contrast. COMPARISON: None provided. FINDINGS: The visualized paranasal sinuses are clear. The mastoid air cells are clear. No calvarial fracture. No evidence for mass or mass effect. No intracranial hemorrhage or abnormal extra-axial fluid collection. No CT evidence of acute infarct. No evidence of hydrocephalus. The basilar cisterns are patent. Posterior fossa appears unremarkable. IMPRESSION: 1. No acute intracranial findings. This document has been electronically signed by: Landen Lyles MD on 06/30/2025 18:07:45 Report Number: [id number]: Total DLP = 811.00 mGy-cm CLINICAL HISTORY: LLQ Tenderness; Hx Diverticulitis CT abdomen and pelvis with contrast Comparison: 08/21/2023 Findings: Lung bases are clear. No acute bony abnormalities. Degenerative change in bilateral hips. Prior left hip fracture fixation hardware. Liver and spleen within normal limits. Pancreas and adrenal glands unremarkable. Gallbladder is within normal limits. No significant focal renal abnormalities. No renal stones or hydronephrosis. Focal right renal scarring, unchanged. Abdominal aorta is normal in caliber. No free fluid or adenopathy in the pelvis. No diverticulitis. Appendix unremarkable. Uterus normal size with an IUD. No right adnexal abnormality. 2.8 cm left ovarian cyst. Impression: No acute process This document has been electronically signed by: Angelito Troy MD on 06/30/2025 20:56:23 External Record Review External record reviewed: Outpatient record Discharge Plan Discharge Clinical Impression: Change in mental status Qualifiers: Altered mental status type: disorientation Qualified Code(s): R41.0 - Disorientation, unspecified Patient Disposition: Home, Self-Care Instructions: Altered Mental Status (ED) Additional Instructions: Thank you for choosing [facility]'s Emergency Department for your care today. Thankfully your laboratory evaluation, urinalysis, CT head, EKG, and CT abdomen and pelvis today showed no evidence of an acute emergent process requiring admission to the hospital or continued ED observation, and it is safe to discharge you home. The exact cause of your altered mental status earlier this afternoon is not entirely clear, it may have been a combination of your recent medication change compounded by marijuana use. However seeing as your change in mental status has cleared, your vital signs are stable, and we have found no acute infectious, neurologic, cardiac, metabolic, or intra-abdominal cause for your symptoms, it is appropriate to follow up outpatient with the primary care provider for re- evaluation and discussion of possible medication changes as indicated. Please follow up with your primary care physician for re-evaluation, additional management of your symptoms, and continued preventative care. If you do not have a primary care physician, please call the [facility] at [phone] to establish a new primary care physician. While waiting to establish your new primary care physician, you can call our [facility] at [phone] for non-emergency needs. Please return to the emergency department if you develop a severe or sudden change in your symptoms, a fever over 100.4 that does not improve with Tylenol or Ibuprofen, recurrent vomiting, or any other new or worsening symptoms or concerns. Prescriptions: No Action (DME) GRAB BAR See Rx Instructions .Route .MEDSUPPLY Qty: 1 0RF Rx Instructions: As directed (DME) Shower head with long hose See Rx Instructions .Route .MEDSUPPLY Qty: 1 0RF Rx Instructions: As directed (DME) SHOWER CHAIR See Rx Instructions .Route .MEDSUPPLY Qty: 1 0RF Rx Instructions: As directed naratriptan 2.5 mg tablet See Rx Instructions PO .COMPLEX Qty: 10 5RF Rx Instructions: take 1 tab at onset of headache; if no relief may repeat 1 tab after at least 4 hrs; max = 2 tabs/24 hrs PO clonidine HCl 0.1 mg tablet 0.1 mg PO TID PRN (Reason: for anxiety) Qty: 270 0RF suvorexant 20 mg tablet 20 mg PO BEDTIME 30 Days Qty: 30 3RF Dayvigo 10 mg tablet 10 mg PO BEDTIME PRN (Reason: insomnia) 30 Days Qty: 30 0RF tramadol 50 mg tablet 50 mg PO TID PRN (Reason: pain) 30 Days Qty: 90 0RF sumatriptan succinate 50 mg tablet 50 mg PO DAILY MRX1 PRN (Reason: Migraine Headache) Qty: 30 3RF lorazepam 1 mg tablet 1 mg PO TID 30 Days Qty: 90 0RF duloxetine 30 mg capsule,delayed release(DR/EC) 30 mg PO BID 30 Days Qty: 60 1RF mesalamine 500 mg capsule, extended release 1,000 mg PO QID omeprazole 40 mg capsule,delayed release(DR/EC) 40 mg PO DAILY cholestyramine (with sugar) 4 gram Powder 4 g PO DAILY PRN (Reason: Diarrhea) acetaminophen 500 mg Tablet 1,000 mg PO DAILY PRN (Reason: Pain) polyethylene glycol 3350 [Miralax] 17 gram/dose Powder 17 g PO DAILY PRN (Reason: Constipation) ondansetron 4 mg tablet,disintegrating 4 mg PO Q8H PRN (Reason: nausea and vomiting) Qty: 20 0RF Entyvio 300 mg recon soln 300 mg IV Q4W Patient Comments: Next appt is 06/12/24 Rx Instructions: administer over 30 mins dicyclomine 10 mg capsule 10 - 20 mg PO QID Mirena 21 mcg/24 hr (8 yrs) 52 mg intrauterine device intrauterine nitrofurantoin macrocrystal 100 mg capsule 100 mg PO BID 10 Days Qty: 20 0RF Rx Instructions: must administer with a meal/food Referrals: Jaswant Frank MD [Primary Care Provider, Internal Medicine] Clinical Impression: Change in mental status Print Language: Barbadian
[2025-06-30 17:00] VITALS: BP 116/56; PULSE 62; RESP 20; TEMP 36.6; O2SAT 99; BMI 29.3
--- NOTE | 2025-06-30 17:04 | ECG_ITS ---
Test Reason : AMS Blood Pressure : */* mmHG Vent. Rate : 58 BPM Atrial Rate : 58 BPM P-R Int : 160 ms QRS Dur : 84 ms QT Int : 442 ms P-R-T Axes : 28 25 21 degrees QTcB Int : 433 ms Sinus bradycardia Otherwise normal ECG When compared with ECG of 06-Jun-2024 07:36, No significant change was found Referred By: Yue Mack Electronically Signed By: Loco Berry
--- NOTE | 2025-06-30 17:39 | PC.NURSE ---
Pt to ED 18 for AMS/lethargy. Brought in by family who is at bedside. Family reports pt is usually A/O x 3 but noticed pt with odd behaviour/lethargy approx noon today. Blue tinge noted to lips, teeth and finger nails, reportedly from attempting to eat cake. CT and labs pending.
[2025-06-30 17:48] LABS: MANUAL DIFF FLAG NO
[2025-06-30 17:49] LABS: Hematocrit 40.1 % (37.0-47.0); Hemoglobin 12.8 g/dl (12.0-16.0); Imm Gran Abs Auto 0.03 X10*3/uL (0.00-0.03); Imm Gran Pct Auto 0.4 % (0.0-0.4); Lymphocytes Absolute Auto 1.8 X10*3/uL (1.2-4.9); Mean Corpuscular HGB Conc 31.9 g/dl (31.0-35.0); Mean Corpuscular Hemoglobin 30.0 pg (27.0-33.0); Mean Corpuscular Volume 94.1 fL (80.0-98.0); NRBC Abs Auto 0.000 X10*3/uL (0.0-0.012); NRBC Pct Auto 0.0 /100WBC (0.0-0.2); Platelet Count 269 X10*3/uL (160-400); Red Blood Count 4.26 X10*6/uL (4.20-5.50); White Blood Count 7.1 X10*3/uL (4.8-10.8)
[2025-06-30 17:53] LABS: Appearance Urine Cloudy; Glucose Urine UA Negative (Negative); PH 5.5 (5.0-9.0); Specific Gravity - Urine >= 1.030 (1.005-1.025); UMIC TRIGGER UACC YES
[2025-06-30 17:55] LABS: Ammonia 23 umol/L (13-55)
[2025-06-30 18:01] VITALS: BP 106/41; PULSE 56; RESP 17; TEMP 36.4; O2SAT 98
[2025-06-30 18:02] LABS: Cannabinoid Screen Urine POSITIVE (Not Detect)
[2025-06-30 18:05] LABS: Acetaminophen LAB < 3 mcg/mL (<30); Alanine Aminotransferase 12 U/L (0-31); Albumin Level 3.8 g/dL (3.5-5.0); Alkaline Phosphatase 79 U/L (39-117); Anion Gap 11 (12-20); Aspartate Amino Transferase 23 U/L (5-31); Blood Urea Nitrogen 15 mg/dL (9-16); Calcium 9.2 mg/dL (8.4-10.2); Carbon Dioxide 24 mmol/L (22-29); Chloride 109 mmol/L (96-108); Creatinine Clr Calc Pharmacy 75.6; Estimated Glomerular Filt Rate > 60; Potassium 4.2 mmol/L (3.3-5.1); Salicylate < 5.0 mg/dL (15-30); Sodium 140 mmol/L (135-145); Total Protein 7.0 g/dL (6.5-8.0)
--- NOTE | 2025-06-30 20:12 | PC.NURSE ---
20g IV line placed in L hand
[2025-06-30] MEDS: iohexoL 350 MG/ML 100 ML INFUS..BTL 85 ML IV (20:21)
[2025-06-30 20:59] VITALS: BP 128/69; PULSE 70; RESP 13; TEMP 37.1; O2SAT 100
[2025-06-30 22:03] VITALS: BP 130/80; PULSE 70; RESP 13; TEMP 36.9; O2SAT 100
[2025-06-30 22:43] VITALS: BP 130/80; PULSE 70; RESP 13; TEMP 36.9; O2SAT 100
== END 2025-06-30 22:44 | disposition home or self-care (01) ==
PROVIDERS: Registered Nurse Emergency; Emergency Provider Emergency Medicine Emergency Medical Services; PCP Internal Medicine
DX: R41.82 Altered mental status, unspecified (principal); R10.32 Left lower quadrant pain; R10.2 Pelvic and perineal pain; R00.1 Bradycardia, unspecified; R11.0 Nausea; Z51.81 Encounter for therapeutic drug level monitoring; Z79.899 Other long term (current) drug therapy; Z87.891 Personal history of nicotine dependence
CPT/HCPCS: 36415; 70450; 74177; 80053; 80143; 80179; 80307; 81001; 82140; 85025; 93005; 96360; 99285; Q9967

== ENCOUNTER → 2025-06-30 17:04 | Outpatient (BNV) | payer OTHER, SELFPAY | PROVIDERS: Emergency Provider Emergency Medicine Emergency Medical Services; PCP Internal Medicine; Visit Provider Internal Medicine Cardiovascular Disease | DX: R00.1 Bradycardia, unspecified (principal) | CPT/HCPCS: 93010 ==

== ENCOUNTER → 2025-06-30 17:04 | Outpatient (BNV) | payer OTHER, SELFPAY | PROVIDERS: PCP Internal Medicine; Visit Provider Radiology Diagnostic Radiology | DX: R10.814 Left lower quadrant abdominal tenderness (principal); R41.82 Altered mental status, unspecified; R53.83 Other fatigue | CPT/HCPCS: 70450; 74177 ==

== ENCOUNTER 2025-08-04 08:22 | Outpatient (AMB) | payer OTHER, SELFPAY ==
--- NOTE | 2025-08-04 08:37 | A.OFFVIS_ITS ---
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 Information Interpreted: non-clinical & clinical Health Care Facility Administrator: Health Care Facility Administrator Present (Sandy Brooks MARLON) Accompanied by: Self / Same As Patient Allergies meperidine (From Demerol) Allergy (Severe, Verified 06/30/25 17:03) SWELLING,RASH,THROAT CLOSES latex (LATEX) Allergy (Mild, Verified 06/30/25 17:03) RASH codeine (Codeine) Adverse Reaction (Intermediate, Verified 06/30/25 17:03) NAUSEA/VOMITING, GI upset/vomiting duloxetine Adverse Reaction (Intermediate, Verified 06/30/25 17:03) headaches trazodone Adverse Reaction (Mild, Verified 06/30/25 17:03) Anxiety Fish Containing Products (Fish Product Derivatives) Adverse Reaction (Unknown, Verified 06/30/25 17:03) NAUSEA/VOMITING bupropion Adverse Reaction (Intermediate, Uncoded 06/30/25 17:03) increased headaches Is last menstrual period known: No (mirena) HPI Comments Details: Presenting for annual exam. No complaints. Last Pap/HPV was ASCUS in 09/09, colpo biopsy ECC in 03/11 was negative Last Mammogram in 05/12 was BI-RADS 1 The patient is Mirena IUD since 06/10 [facility] Medical History (Updated 08/04/25 @ 09:03 by Mike Davis MD) ASCUS with positive high risk HPV cervical Crohn's disease Clostridioides difficile carrier Renal calculus, bilateral Postcoital bleeding Major depression, recurrent, chronic Furuncle Diverticulitis Obesity (BMI 30-39.9) Crohn's colitis Crohns disease of small intestine Intractable nausea and vomiting Migraine History of renal cell cancer (~2014) Osteoarthritis of hips, bilateral Depression Crohn's disease Lumbar degenerative disc disease Insomnia Anxiety 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 Surgical History Hx of colonoscopy History of esophagogastroduodenoscopy (EGD) History of removal of calculus of renal pelvis through percutaneous nephrostomy (~10/2015) History of cryosurgery (~04/20/15) History of intestinal surgery History of arthroplasty (~01/2012) Family History Father Crohn disease Migraine Cancer Mother HTN (hypertension) Vertigo Cervical cancer Maternal Grandmother HTN (hypertension) Hyperlipidemia Diabetes mellitus Paternal Grandmother Diabetes mellitus Other Mental health problem Social History Household Members: Family Housing: House Do you presently have visiting nurse or other home services: No Unable to assess alcohol history related to: Unable to respond Alcohol intake: current Alcohol intake frequency: holidays/special occasions only Patient Tobacco Use Status: Former Tobacco user Tobacco use type: Cigarette e-Cigarette/Vaping Use: Former Use Second Hand Smoke Exposure: Yes Substance Use Type: Marijuana Advance Directives Date on File: 06/15/22 service: No Current occupational status: unemployed Gender identity: Female Cognitive needs: No Hearing needs: No Vision needs: Yes (glasses) Female Reproductive History Menstrual Age of Menarche: 12 Date of last pap smear: 09/05/23 Date of Mammogram: 04/27/25 Review of Systems Const All systems reviewed & are unremarkable except as noted in HPI and below Card Reports as per HPI Resp Reports as per HPI GI Reports as per HPI and Reports no additional complaints Reports as per HPI Physical Exam Vital Signs: BMI result Body Mass Index 32.4 Const General: cooperative, healthy appearing and comfortable Chest Chest palpation & inspection: normal inspection of the chest and normal palpation of entire chest wall Breast/axilla inspection: normal inspection of the breasts and normal inspection of the axillae Breast/axilla palpation: normal palpation of the breasts, normal palpation of the axillae and no axillary lymphadenopathy Resp Effort & Inspection: normal respiratory effort Auscultation: clear to auscultation bilaterally Percussion: percussion normal Cardio Palpation: normal PMI Rate: regular rate Rhythm: regular rhythm Heart sounds: no murmurs and no rubs Peripheral pulses: Peripheral pulses 2+ throughout GI Inspection: Yes normal to inspection Palpation (GI): Soft to palpation, nontender, no guarding, not rigid and No hepatosplenomegaly present Percussion: Yes normal to percussion Auscultation: normal bowel sounds Rectal Exam - Female: deferred General: Yes bladder normal to palpation External Female Exam: No lesion Speculum Exam - Vagina: normal appearance of the vagina, normal palpation, normal vaginal discharge and not erythematous Speculum Exam - Cervix: normal appearance of the cervix, normal palpation and Other cervical findings present (IUD string in place) Bimanual exam- vagina & uterus: normal bimanual exam, normal palpation, uterine size normal, bladder normal to palpation, consistency normal and normal palpation Bimanual Exam- Adnexa, other: normal adnexae, no masses and no tenderness Assessment & Plan Assessment & Plan (1) Well woman exam: Comment: ASCUS HPV positive, colpo biopsy ECC negative 03/11 Code(s): Z01.419 - Encounter for gynecological examination (general) (routine) without abnormal findings Category: Medical Plan: Cotesting done. Instructions given the patient to schedule next screening Mammogram in 05/13. Counseled the patient about the recommended dietary allowance of 1000 mg of Calcium & 600 IU of vitamin D. The patient is in the process schedule an next screening colonoscopy with Dr. Alexis The patient was instructed to perform monthly self-breast exams and to schedule an annual exam in a year; All questions answered and the patient verbalized understanding. Instructed the patient to schedule annual exam in a year Coding Level of Care Code Est Pt Prev Care 40-64y(32007) Diagnoses Well woman exam Z01.419
[2025-08-04 08:43] VITALS: BMI 32.4
== END 2025-08-04 09:10 | disposition home or self-care (01) ==
LOC: HO.HWS 08:23
PROVIDERS: PCP Internal Medicine; Visit Provider Obstetrics & Gynecology
DX: Z01.419 Encounter for gynecological examination (general) (routine) without abnormal findings (principal)
CPT/HCPCS: 99396; 99459

== ENCOUNTER 2025-08-04 08:22 | Outpatient (REF) | payer OTHER, SELFPAY | END 2025-08-04 08:23 | disposition home or self-care (01) | LOC: HO.LNP 08:22 | PROVIDERS: PCP Internal Medicine; Visit Provider Obstetrics & Gynecology | DX: Z01.419 Encounter for gynecological examination (general) (routine) without abnormal findings (principal) | CPT/HCPCS: 87626; 88175; 99396 ==

== ENCOUNTER 2025-08-26 09:45 | Outpatient (AMB) | payer OTHER, SELFPAY ==
[2025-08-26 09:55] VITALS: BP 116/78; PULSE 105; O2SAT 96; BMI 33.0
--- NOTE | 2025-08-26 09:55 | A.OFFPC_ITS ---
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 by: Self / Same As Patient Allergies meperidine (From Demerol) Allergy (Severe, Verified 08/26/25 10:23) SWELLING,RASH,THROAT CLOSES latex (LATEX) Allergy (Mild, Verified 08/26/25 10:23) RASH codeine (Codeine) Adverse Reaction (Intermediate, Verified 08/26/25 10:23) NAUSEA/VOMITING, GI upset/vomiting duloxetine Adverse Reaction (Intermediate, Verified 08/26/25 10:23) headaches trazodone Adverse Reaction (Mild, Verified 08/26/25 10:23) Anxiety Fish Containing Products (Fish Product Derivatives) Adverse Reaction (Unknown, Verified 08/26/25 10:23) NAUSEA/VOMITING bupropion Adverse Reaction (Intermediate, Uncoded 08/26/25 10:23) increased headaches Medication List - Last Reconciled 08/26/25 by Jaswant Frank MD acetaminophen 1,000 mg PO DAILY PRN cholestyramine (with sugar) 4 gram 4 grams PO DAILY PRN clonidine HCl 0.1 mg PO TID PRN dicyclomine 10 - 20 mg PO QID duloxetine 30 mg PO BID 30 days [GRAB BAR As directed] lemborexant (Dayvigo) 10 mg PO BEDTIME PRN 30 days levonorgestrel (Mirena) intrauterine lorazepam 1 mg PO TID 30 days mesalamine ER 1,000 mg PO QID naratriptan take 1 tab at onset of headache; if no relief may repeat 1 tab after at least 4 hrs; max = 2 tabs/24 hrs PO omeprazole 40 mg PO DAILY ondansetron 4 mg PO Q8H PRN polyethylene glycol 3350 (Miralax) 17 grams PO DAILY PRN [SHOWER CHAIR As directed] [Shower head with long hose As directed] sumatriptan succinate 50 mg PO DAILY MRX1 PRN suvorexant 20 mg PO BEDTIME 30 days tramadol 50 mg PO TID PRN 30 days vedolizumab (Entyvio) 300 mg IV Q4W Tobacco use date assessed: 08/26/25 Dental Screening Dental Screen Date: 08/26/25 Did you have a dental visit in the last 12 months?: Yes Did you have a dental problem in the last 6 months where you did not have access to dental care?: No Was dental information given to patient?: Patient has dentist HPI 4mth f/u HPI Details Patient comes in today for her follow up visit States that she has been experiencing increasing headaches lately; denies any di zziness Denies any chest pains, no increased SOB No nausea/vomiting, no abdominal pain No change in bowel habits noted Adds that she has been going to her dentist at [facility] in [place] ([facility]ly [facility] at [address], [address]) for her dental issues and that they are planning to extract all of her teeth under anesthesia Patient is currently requesting a letter from us recommending that she be sedated for the procedure - she was advised that she will need a letter of medical necessity from her PCP stating the need for Tx in the OR setting Patient was also brought to the ER by her family back in mid June 2025 for erratic behavior and mental status changes - she tested positive for PCP; all other work ups are negative Patient states that she now takes her sleeping Rx only when absolutely needed as she is afraid of having the same reaction again in the future She has also been complaining of increased left groin pain lately Recalls that she had a metal izzy inserted into her pelvis / hip years ago when she underwent surgical repair of her left hip Fx and is wondering if this is the source of her current groin pain [facility] Medical History ASCUS with positive high risk HPV cervical Crohn's disease Clostridioides difficile carrier Renal calculus, bilateral Postcoital bleeding Major depression, recurrent, chronic Furuncle Diverticulitis Obesity (BMI 30-39.9) Crohn's colitis Crohns disease of small intestine Intractable nausea and vomiting Migraine History of renal cell cancer (~2014) Osteoarthritis of hips, bilateral Depression Crohn's disease Lumbar degenerative disc disease Insomnia Anxiety 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 Surgical History Hx of colonoscopy History of esophagogastroduodenoscopy (EGD) History of removal of calculus of renal pelvis through percutaneous nephrostomy (~10/2015) History of cryosurgery (~04/20/15) History of intestinal surgery History of arthroplasty (~01/2012) Family History Father Crohn disease Migraine Cancer Mother HTN (hypertension) Vertigo Cervical cancer Maternal Grandmother HTN (hypertension) Hyperlipidemia Diabetes mellitus Paternal Grandmother Diabetes mellitus Other Mental health problem Social History Household Members: Family Housing: House Do you presently have visiting nurse or other home services: No Alcohol intake: current Alcohol intake frequency: holidays/special occasions only Patient Tobacco Use Status: Former Tobacco user Tobacco use type: Cigarette e-Cigarette/Vaping Use: Former Use Second Hand Smoke Exposure: Yes Substance Use Type: Marijuana Advance Directives Date on File: 06/15/22 service: No Current occupational status: unemployed Gender identity: Female Cognitive needs: No Hearing needs: No Vision needs: Yes (glasses) Female Reproductive History Menstrual Age of Menarche: 12 Questionnaire Thrive Questionnaire Date Thrive assessed: 04/08/25 I am a: Patient What is your living situation today?: I have a steady place to live Within the past 12 months, did the food you bought not last and you didn't have the money to get more?: Sometimes True Within the past 12 months, did you worry whether your food would run out before you got money to buy more?: Sometimes True Do you have trouble paying for medicines?: No Do you have trouble getting transportation to medical appointments?: No Do you have trouble paying your heating and electricity bill?: Yes Do you have trouble taking care of your child, family member or friend?: No Do you have trouble with day-to-day activities such as bathing, preparing meals, shopping, managing finances, etc.?: No Are you currently unemployed and looking for a job?: No Are you interested in more education?: No Currently or been in a relationship where the following occur: No concerns reported THRIVE Score: 3 AUDIT C Alcohol Use Questionnaire (AUDIT-C) 1. How often do you have a drink containing alcohol?: Monthly or less 2. How many drinks containing alcohol do you have on a typical day when you are drinking?: 1 or 2 3. How often do you have six or more drinks on one occasion?: Never Total Score: 1 Score Reviewed/Action Taken: Yes MONTSE-7 AMB Questionnaire MONTSE-7 Date MONTSE - 7 assessed: 04/15/25 Source: Developed by Drs. Matthew Hernandez, Starr Jiménez, Billy Somers and colleagues, with an educational paxton from [employer]. Review of Systems Const Denies chills, Reports difficulty sleeping, Denies fatigue, Denies fever(s) and Denies headache(s) ENT Denies dysphagia, Denies dizziness, Denies otalgia, Denies headache(s), Denies neck pain, Denies odynophagia and Denies sore throat Card Denies chest pain, Denies rapid heart rate, Denies irregular heart rhythm, Denies palpitations and Denies dyspnea Resp Denies chest congestion, Denies cough and Denies dyspnea GI Denies abdominal pain, Denies constipation, Denies dysphagia, Denies heartburn, Denies diarrhea, Denies nausea, Denies odynophagia and Denies vomiting Denies urinary frequency, Denies dysuria and Denies urinary urgency Musc Reports back pain (over the lower back - chronic), Denies arthralgias and Denies neck pain Skin/Breast Denies rash Neuro Denies dizziness, Denies headache(s) and Denies paresthesias Psych Denies anxiety and Denies depression Endo Denies fatigue and Denies palpitations Jf/Lymph Denies easy bruising Physical exam (Primary Care) Vital Signs: Last Vital Signs Pulse 105 H 08/26/25 09:55 BP 116/78 08/26/25 09:55 Pulse Ox 96 08/26/25 09:55 Oxygen Delivery Method Room Air 08/26/25 09:55 BMI result Body Mass Index 33.0 Tobacco/Smoking Status: Tobacco use Status Tobacco use date assessed 08/26/25 08/26/25 09:59 Patient Tobacco Use Status Former Tobacco user 08/26/25 09:59 Tobacco use type Cigarette 08/26/25 09:59 e-Cigarette/Vaping Use Former Use 08/26/25 09:59 Thrive Assessment: Date of Thrive Assessment Date Thrive assessed 04/08/25 08/26/25 09:59 Currently or been in a relationship where the following occur: No concerns reported Const General: no acute distress and alert HENMT Ears: TM's normal bilaterally and EAC's normal Throat: Yes posterior oropharynx normal and Yes tonsils normal (no TP congestion) Neck Neck: Yes no lymphadenopathy and Yes supple Thyroid: Thyroid normal Resp Auscultation: clear to auscultation bilaterally, no rales and no wheezes Cardio Rate: regular rate Rhythm: regular rhythm Heart sounds: no murmurs GI Palpation (GI): Soft to palpation and nontender Auscultation: normal bowel sounds General: Yes no CVA tenderness Back/Spine/Pelvis Back: no CVA tenderness Thoracic/Lumbar Spine: lumbar spinal tenderness Skin Rashes: no rashes Extrem General: Yes no clubbing, cyanosis or edema Left lower extremity: hip/thigh Details: tenderness Location: of the hip Results Reviewed Results Reviewed: Laboratory Tests 06/30/25 07/22/25 07/22/25 17:41 10:05 10:15 WBC 8.0 Hgb 14.2 Hct 41.1 Plt Count 345 D ESR 16 Sodium 140 Potassium 4.2 Creatinine 0.84 Estimated GFR > 60 Random Glucose 96 Calcium 9.2 AST 17 ALT 11 Ammonia 23 C-Reactive Protein 0.33 Coding Level of Care Code Est Pt Level 4 (54291) Diagnoses Migraine without status migrainosus, not intractable, unspecified migraine type G43.909 Intractability: not intractable Migraine type: unspecified Status migrainosus presence: without status migrainosus Crohn's disease without complication, unspecified gastrointestinal tract location K50.90 Gastrointestinal tract location: unspecified location Digestive disease complication type: without complication Degeneration of intervertebral disc of lumbar region with discogenic back pain M51.360 Disc-related pain type: discogenic back pain only Impaired fasting glucose R73.01 Left hip pain M25.552 Insomnia, unspecified type G47.00 Insomnia type: unspecified Anxiety F41.9 Obesity (BMI 30-39.9) E66.9 Assessment & Plan Assessment & Plan (1) Migraine: Code(s): G43.909 - Migraine, unspecified, not intractable, without status migrainosus Category: Medical Qualifiers: Intractability: not intractable Migraine type: unspecified Status migrainosus presence: without status migrainosus Qualified Code(s): G43.909 - Migraine, unspecified, not intractable, without status migrainosus Plan: Continue Sumatriptan 50 mg PRN for headaches - patient feels that this is helping somewhat Continue Excedrin PRN and Ondansetron PRN for nausea/vomiting Topiramate (for LUNDBERG prophylaxis) was discontinued previously due to its potential interactions with Mirena; patient reports experiencing frequent headaches since Patient also relates experiencing a significant increase in her headaches when she was started on Bupropion XL and Buspirone last year - headaches have subsided since she was instructed to STOP taking them As she feels that her headaches are getting worse lately, will refer her back to neurology for further evaluation and management (2) Crohn's disease: Code(s): K50.90 - Crohn's disease, unspecified, without complications Category: Medical Qualifiers: Gastrointestinal tract location: unspecified location Digestive disease complication type: without complication Qualified Code(s): K50.90 - Crohn's disease, unspecified, without complications Plan: Continue Entyvio 300 mg SQ every 6 weeks, Mesalamine ER 1000 mg QID and Budesonide ER 3 mg 3 capsules (900 mg) QD Her abdominal MRI done last year revealed (+) mild improvement in the transmural wall thickening at the terminal ileum, suggesting some improvement Follow up with GI (Dr. Alexis) as scheduled (3) Lumbar degenerative disc disease: Code(s): M51.36 - Other intervertebral disc degeneration, lumbar region Category: Medical Qualifiers: Disc-related pain type: discogenic back pain only Qualified Code(s): M51.360 - Other intervertebral disc degeneration, lumbar region with discogenic back pain only Plan: Reinforced activity and weight-lifting restrictions Continue Tramadol 50 mg TID PRN for pain (4) Impaired fasting glucose: Code(s): R73.01 - Impaired fasting glucose Category: Medical Plan: Her FBS was elevated on her labs done a few months ago - this was most likely due to the effects of Prednisone, which she has been off (completed Tx) for a while now In-office HgbA1c was normal at 5.6% when previously checked Will continue to monitor her blood sugar closely Reinforced again low calorie/low carb diet to help control her blood sugar better (5) Left hip pain: Code(s): M25.552 - Pain in left hip Category: Medical Plan: Will send her for x-rays of the left hip for further evaluation (6) Insomnia: Code(s): G47.00 - Insomnia, unspecified Category: Medical Qualifiers: Insomnia type: unspecified Qualified Code(s): G47.00 - Insomnia, unspecified Plan: Sleep hygiene reinforced Continue Dayvigo 10 mg Q HS She has been checked out and advised by Sleep Medicine last year that she does NOT have FAISAL She was previously tried on Belsomra, which she felt helped with her sleep but this was denied by her insurance and her previous Zolpidem was no longer helping her Follow up with Sleep Medicine as scheduled (7) Anxiety: Code(s): F41.9 - Anxiety disorder, unspecified Category: Medical Plan: continue Lorazepam 1 mg TID PRN and Clonidine 0.1 mg TID PRN Continue Duloxetine 30 mg BID Follow up with psychiatry as scheduled (8) Obesity (BMI 30-39.9): Code(s): E66.9 - Obesity, unspecified Category: Medical Plan: Reinforced diet/exercise as tolerated/lose weight Plan Follow-up in 4 months Orders: Orders XR hip LT min 2V 08/26/25 M25.552 - Pain in left hip Referrals Neurology Referral G43.909 - Migraine, unspecified, not intractable, without status migrainosus
== END 2025-08-26 10:46 | disposition home or self-care (01) ==
LOC: HO.HMCH 09:46
PROVIDERS: PCP Internal Medicine; Visit Provider Internal Medicine
DX: G43.909 Migraine, unspecified, not intractable, without status migrainosus (principal); K50.90 Crohn's disease, unspecified, without complications; E66.9 Obesity, unspecified; Z68.33 Body mass index [BMI] 33.0-33.9, adult; M51.360 Other intervertebral disc degeneration, lumbar region with discogenic back pain only; R73.01 Impaired fasting glucose; M25.552 Pain in left hip; G47.00 Insomnia, unspecified; F41.9 Anxiety disorder, unspecified

== ENCOUNTER → 2025-08-26 09:45 | Outpatient (BNVA) | payer OTHER, SELFPAY | PROVIDERS: PCP Internal Medicine; Visit Provider Internal Medicine | DX: G43.909 Migraine, unspecified, not intractable, without status migrainosus (principal); K50.90 Crohn's disease, unspecified, without complications; M51.369 Other intervertebral disc degeneration, lumbar region without mention of lumbar back pain or lower extremity pain; R73.01 Impaired fasting glucose; M25.552 Pain in left hip; G47.00 Insomnia, unspecified; F41.9 Anxiety disorder, unspecified; E66.9 Obesity, unspecified; Z68.33 Body mass index [BMI] 33.0-33.9, adult; Z79.899 Other long term (current) drug therapy | CPT/HCPCS: 99212 ==

== ENCOUNTER 2025-09-15 09:57 | Outpatient (AMB) | payer OTHER, SELFPAY ==
--- NOTE | 2025-09-15 09:56 | MHC.OFFVIS ---
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 Allergies meperidine (From Demerol) Allergy (Severe, Verified 09/15/25 09:57) SWELLING,RASH,THROAT CLOSES latex (LATEX) Allergy (Mild, Verified 09/15/25 09:57) RASH codeine (Codeine) Adverse Reaction (Intermediate, Verified 09/15/25 09:57) NAUSEA/VOMITING, GI upset/vomiting duloxetine Adverse Reaction (Intermediate, Verified 09/15/25 09:57) headaches trazodone Adverse Reaction (Mild, Verified 09/15/25 09:57) Anxiety Fish Containing Products (Fish Product Derivatives) Adverse Reaction (Unknown, Verified 09/15/25 09:57) NAUSEA/VOMITING bupropion Adverse Reaction (Intermediate, Uncoded 09/15/25 09:57) increased headaches HPI Comments Details: Gabi is a very pleasant 50-year-old female patient of Dr. Frank. She has a PMH of depression, diverticulitis, obesity, Crohn's disease, migraines, renal cell cancer status post right-sided cryoabl[place] [address] Linares per patient, osteoarthritis, depression, insomnia, and anxiety. She presents to the office today for follow-up of her right renal mass in recent urinary tract infection. In discussion with the patient today she reports since her last office visit here she has since completed Macrobid as prescribed and has had no bothersome lower urinary tract symptoms. Urine cultures are as follows: 04/10 & 08/11, 08/12 E coli Patient discusses her upcoming surgical intervention for extraction of her teeth at [facility]. She currently denies any bothersome lower urinary tract symptoms. In office urinalysis results reviewed with the patient today. PVR 0 mL. Previous MRI renal mass protocol 04/11 the previously seen Bosniak 3 F right renal lesion appears minimally smaller previously measuring 13 x 11 mm in current MRI measuring 12 x 8 mm. Continued follow-up is recommended per radiology report. Most recent CT abdomen and pelvis with IV contrast 07/12 noted no acute findings. She continues to experience GI issues however remains following up with Gastroenterology as planned. We did discussed correlation of bowel issues with recurrent urinary tract infections. She also reports having had a few episodes of mixed urinary incontinence however would like to continue with surveillance monitoring. We did discussed in office urodynamics for further assessment evaluation. Patient has previously attended pelvic floor therapy and did find this helpful. We discussed surveillance monitoring of renal mass/cyst. She denie hematuria, dysuria, foul smelling urine, changes to urinary stream, flank pain, fever, and or chills. She is happy with her current voiding parameters. She otherwise denies any other issues or concerns at this time. [facility] Medical History ASCUS with positive high risk HPV cervical Crohn's disease Clostridioides difficile carrier Renal calculus, bilateral Postcoital bleeding Major depression, recurrent, chronic Furuncle Diverticulitis Obesity (BMI 30-39.9) Crohn's colitis Crohns disease of small intestine Intractable nausea and vomiting Migraine History of renal cell cancer (~2014) Osteoarthritis of hips, bilateral Depression Crohn's disease Lumbar degenerative disc disease Insomnia Anxiety 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 Surgical History Hx of colonoscopy History of esophagogastroduodenoscopy (EGD) History of removal of calculus of renal pelvis through percutaneous nephrostomy (~10/2015) History of cryosurgery (~04/20/15) History of intestinal surgery History of arthroplasty (~01/2012) Family History Father Crohn disease Migraine Cancer Mother HTN (hypertension) Vertigo Cervical cancer Maternal Grandmother HTN (hypertension) Hyperlipidemia Diabetes mellitus Paternal Grandmother Diabetes mellitus Other Mental health problem Social History Household Members: Family Housing: House Do you presently have visiting nurse or other home services: No Alcohol intake: current Alcohol intake frequency: holidays/special occasions only Patient Tobacco Use Status: Former Tobacco user Tobacco use type: Cigarette e-Cigarette/Vaping Use: Former Use Second Hand Smoke Exposure: Yes Substance Use Type: Marijuana Advance Directives Date on File: 06/15/22 service: No Current occupational status: unemployed Gender identity: Female Cognitive needs: No Hearing needs: No Vision needs: Yes (glasses) Female Reproductive History Menstrual Age of Menarche: 12 Review of Systems Const Reports no additional complaints Eyes Reports no additional complaints ENT Reports no additional complaints Card Reports as per [facility] Resp Reports no additional complaints GI Reports as per HPI Reports as per HPI Musc Reports as per HPI Neuro Reports no additional complaints Psych Reports as per HPI Endo Reports no additional complaints Physical Exam Const General: cooperative, healthy appearing, comfortable, no acute distress, well developed, alert and awake Nutritional Appearance: overweight Orientation/consciousness: patient oriented x3 Limitations: no limitations HEENT Head: Yes normal to inspection, Yes normocephalic and Yes atraumatic Ears: hearing grossly normal bilaterally Eyes General: appearance normal, both eyes and all related structures Neck Neck: Yes normal visual inspection and Yes trachea midline Chest Chest palpation & inspection: normal inspection of the chest Resp Effort & Inspection: normal respiratory effort and able to speak in complete sentences Cardio Rate: regular rate GI Inspection: Yes normal to inspection General: Yes no CVA tenderness Back/Spine/Pelvis Back: no CVA tenderness Skin General skin exam: no rashes or lesions noted Neuro General: patient oriented x3 Extrem General: Yes normal to inspection Psych Appearance: grossly normal and well kempt Mental Status: mental status grossly normal Speech and movement: Normal speech and movement present and Clear speech present Affect: normal affect Attitude: cooperative Thought process: Normal thought process present Thought content: Normal thought content present Insight: Fair insight present (Psych) Judgement: Fair judgement present (Psych) Office Procedures Post Void Residual Post Residual Void Post Void Residual (PVR): 0 [id number] Void Residual by ultrasound Results AMB Urinalysis, Automated UA Leukoctes 0 Rajni/uL Last Edit by CORBIN Ortiz on 09/15/25 10:07 UA Nitrite Negative Last Edit by CORBIN Ortiz on 09/15/25 10:07 UA Urobilinogen 0.2 mg/dL Last Edit by CORBIN Ortiz on 09/15/25 10:07 UA Protein 30 mg/dL Last Edit by CORBIN Ortiz on 09/15/25 10:07 UA pH 6.0 Last Edit by CORBIN Ortiz on 09/15/25 10:07 UA Blood 0 Ernie/uL Last Edit by CORBIN Ortiz on 09/15/25 10:07 UA Specific [place] 1.030 Last Edit by CORBIN Ortiz on 09/15/25 10:07 UA Ketone Negative Last Edit by CORBIN Ortiz on 09/15/25 10:07 UA Bilirubin 1 mg/dL Last Edit by CORBIN Ortiz on 09/15/25 10:07 UA Glucose 0 mg/dL Last Edit by CORBIN Ortiz on 09/15/25 10:07 Results Reviewed Results Reviewed: Laboratory Last Values Urine pH (Auto) 6.0 09/15/25 10:01 Specific [place] (Auto) 1.030 09/15/25 10:01 Urine Protein (Auto) 30 mg/dL 09/15/25 10:01 Glucose (UA)(Auto) 0 mg/dL 09/15/25 10:01 Urine Ketones (Auto) Negative 09/15/25 10:01 Urine Blood (Auto) 0 Ernie/uL 09/15/25 10:01 Urine Nitrite (Auto) Negative 09/15/25 10:01 Urine Bilirubin (Auto) 1 mg/dL 09/15/25 10:01 Urine Urobilinogen (Auto) 0.2 mg/dL 09/15/25 10:01 Leukocyte Esterase (Auto) 0 Rajni/uL 09/15/25 10:01 Date of Service: 06/30/25 Procedure(s): CT abdomen pelvis w IV con Findings: Lung bases are clear. No acute bony abnormalities. Degenerative change in bilateral hips. Prior left hip fracture fixation hardware. Liver and spleen within normal limits. Pancreas and adrenal glands unremarkable. Gallbladder is within normal limits. No significant focal renal abnormalities. No renal stones or hydronephrosis. Focal right renal scarring, unchanged. Abdominal aorta is normal in caliber. No free fluid or adenopathy in the pelvis. No diverticulitis. Appendix unremarkable. Uterus normal size with an IUD. No right adnexal abnormality. 2.8 cm left ovarian cyst. Impression: No acute process Assessment & Plan Assessment & Plan (1) Right renal mass: Code(s): N28.89 - Other specified disorders of kidney and ureter Category: Medical (2) Stress incontinence: Code(s): N39.3 - Stress incontinence (female) (male) Category: Medical Plan In office urinalysis results reviewed with the patient today; as noted above. PVR 0 mL She currently denies any bothersome urinary issues or concerns. She reports be happy with current voiding parameters. Will continue with surveillance monitoring. All questions were answered. We did discuss correlation of bowel issues with recurrent urinary tract infections. We also discussed further treatment options of mixed urinary incontinence and risks and benefits of these treatment options. Will obtain renal ultrasound in 6 months. Follow-up in 6 months with imaging; or sooner with any issues, concerns, and or questions. Orders: Orders AMB Urinalysis Automated Today Z13.9 - Encounter for screening, unspecified US renal BI 6 Months N28.89 - Other specified disorders of kidney and ureter, N39.3 - Stress incontinence (female) (male) Patient Instructions: The patient had an opportunity to ask questions regarding the treatment plan. All questions were answered. Physical exam, labs, and imaging were discussed and reviewed in detail. As well as risks, benefits, and discussion of treatment choices. No major barriers to understanding were identified. The patient expressed understanding and agreement with the above treatment plan. The patient was made aware they should contact our office by phone for worsening of their current condition, the appearance of new symptoms, or with any questions or concerns. Compliance is encouraged with any medications and follow up testing that is ordered. It is a privilege to be allowed the opportunity to participate in? your urological care.? Again, if you have any questions or concerns If you have any questions or concerns please do not hesitate to contact me. The office is [phone]. This note is constructed using voice recognition software. While every effort has been made to ensure accuracy joint supervisor errors may have been included. Yours sincerely, STEPHANIE Mir Coding Level of Care Code Est Pt Level 3 (95553) Complex EM visit Add On G2211 Diagnoses Right renal mass N28.89 Stress incontinence N39.3 CPT Codes Post Residual Void - PVR CPT Code: 51065-Ukzl Void Residual by ultrasound ([id number])
--- OUTSIDE RECORDS SUMMARY | 2025-09-15 12:01 | XMS_ITS | Data Portability ---
Author Organization [employer] [facility] [place] [facility] Address [address] [place] [id number] Care Team Providers Care Sole Stitcher Hand Name Role Phone HIM CCA OTHER Assessment [...] Not available Not available Not available 09/15/2024 [id number] RxNorm Not Available [email or web address] - production 4 03:47:51 8940 trazodone medicatio n Not available Not available Not available 09/15/2024 11052 RxNorm Not Available [email or web address] - production 4 03:47:51 Medications Name Sig [...] Respiratory rate Body weight Body temperature Systolic And Diastolic Provider Name and Address Organization Details Last Updated DateTime 4 98 % 98 % 94 /min 18 /min 38484.8 g 99.8 [degF] 164/84 mm[Hg] Not Available [facility] - production 4 [...] Diagnosis SNOMED-CT Code Diagnosis ICD10 Code Diagnosis IMO Codes Diagnosis Note [id number] Zoraida Schwartz MD Main - [facility] [address] [place] [phone] 08/21/2024 10:44:42 08/24/2024 12:31:05 Nausea and vomiting [id number] R11.2 I provided real -time medical direction via phone for this encounter, and was available for additional phone based assistance as needed. I have reviewed and agree with the Assessment and Plan as documented by the Parachute Repairer. Patient given the opportunit y to ask questions. 49 yo F w/ h/o crohn's and diverticul itis with h/o recurrent episodes of nausea/jacobo sis treated with supportive care (IV fluids and zofran in the ED) who p/w episode of n/v x1d. noting significan t associated anxiety. No hematemesi s or no hematochez ia. Exam reassuring . Parachute Repairer unable to obtain IV access despite multiple [...] Tristan Member ID Guarantor Name 08/21/2024 1 [facility] - DOS ON OR AFTER 2023 - DUAL ELIGIBLE - SENIOR LIVING OPTIONS AND ONE CARE (MEDICARE REPLACEMENT/ADV ANTAGE - HMO) Gabi Perales [id number] Gabi Perales Notes Date Note Type Note [...] ................... ................... ................... ................... ................... ................... ........ Parachute Repairer Note From Roni Herring: Pt co nausea [...] ................... ................... ................... ................... ................... ........ Disposition: Frieda Schwartz MD [address] [facility], [place], [id number], [employer] [facility] [employer] 08/21/2024 22:44:48 OBGyn Episode No OBEpisode recorded.
== END 2025-09-15 10:26 | disposition home or self-care (01) ==
LOC: HO.HUSH 09:58
PROVIDERS: PCP Internal Medicine; Visit Provider Nurse Practitioner Family
DX: N28.89 Other specified disorders of kidney and ureter (principal); N39.3 Stress incontinence (female) (male); Z13.9 Encounter for screening, unspecified
CPT/HCPCS: 99213; G2211

== ENCOUNTER → 2025-09-15 09:57 | Outpatient (BNVA) | payer OTHER, SELFPAY | PROVIDERS: PCP Internal Medicine; Visit Provider Nurse Practitioner Family | DX: N28.89 Other specified disorders of kidney and ureter (principal); N39.3 Stress incontinence (female) (male); Z13.9 Encounter for screening, unspecified | CPT/HCPCS: 51798; 81003; 99212 ==

== ENCOUNTER 2025-09-17 14:50 | Outpatient (AMB) | payer OTHER, SELFPAY ==
[2025-09-17 14:54] VITALS: BP 132/68; PULSE 79; RESP 18; TEMP 36.3; O2SAT 100; BMI 32.9
--- NOTE | 2025-09-17 14:54 | A.OFFPC_ITS ---
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 [employer] Required: No Accompanied by: Self / Same As Patient Allergies meperidine (From Demerol) Allergy (Severe, Verified 09/20/25 08:36) SWELLING,RASH,THROAT CLOSES latex (LATEX) Allergy (Mild, Verified 09/20/25 08:36) RASH Seasonal Allergies Allergy (Mild, Verified 09/20/25 08:36) Unknown codeine (Codeine) Adverse Reaction (Intermediate, Verified 09/20/25 08:36) NAUSEA/VOMITING, GI upset/vomiting duloxetine Adverse Reaction (Intermediate, Verified 09/20/25 08:36) headaches trazodone Adverse Reaction (Mild, Verified 09/20/25 08:36) Anxiety Fish Containing Products (Fish Product Derivatives) Adverse Reaction (Unknown, Verified 09/20/25 08:36) NAUSEA/VOMITING bupropion Adverse Reaction (Intermediate, Uncoded 09/20/25 08:36) increased headaches Medication List - Last Reconciled 09/17/25 by JUANITA Locke acetaminophen 1,000 mg PO DAILY PRN cholestyramine (with sugar) 4 gram 4 grams PO DAILY PRN clonidine HCl 0.1 mg PO TID PRN dicyclomine 10 - 20 mg PO QID duloxetine 30 mg PO BID 30 days [GRAB BAR As directed] lemborexant (Dayvigo) 10 mg PO BEDTIME PRN 30 days levonorgestrel (Mirena) intrauterine lorazepam 1 mg PO TID 30 days mesalamine ER 1,000 mg PO QID naratriptan take 1 tab at onset of headache; if no relief may repeat 1 tab after at least 4 hrs; max = 2 tabs/24 hrs PO omeprazole 40 mg PO DAILY ondansetron 4 mg PO Q8H PRN polyethylene glycol 3350 (Miralax) 17 grams PO DAILY PRN [SHOWER CHAIR As directed] [Shower head with long hose As directed] sumatriptan succinate 50 mg PO DAILY MRX1 PRN suvorexant 20 mg PO BEDTIME 30 days tramadol 50 mg PO TID PRN 30 days vedolizumab (Entyvio) 300 mg IV Q4W Tobacco use date assessed: 09/17/25 Dental Screening Dental Screen Date: 09/17/25 Did you have a dental visit in the last 12 months?: Yes Did you have a dental problem in the last 6 months where you did not have access to dental care?: No Was dental information given to patient?: Patient has dentist HPI Ascent dental clearance-see comm HPI Details The patient is a 50-year-old female presenting for pre-operative clear ance for a planned full dental extraction secondary to periodontal disease. The procedure is scheduled for September 21. Her dental issues have been progressing for about 8 months to a year, with a history of caps not staying on and teeth breaking, but treatment was delayed due to intercurrent illnesses related to her Crohn's disease and diverticulitis. Past surgical history is notable for colonoscopies, biopsies, a fistula surgery, and two surgeries on her left leg involving a izzy from her femur to her hip with pins into her pelvis. She has a history of significant nausea and vomiting with anesthesia, for which she has previously received Zofran (ondansetron). She also reports a history of postoperative urinary retention, once requiring catheterization. The patient's medical history includes Crohn's disease, managed with Entyvio and Pentasa, and diverticulitis. Her sales and marketing coordinator advised spacing out her Entyvio infusions, and her next dose is not due until October. Medication carlos mena with a nurse from the dental office confirmed she can continue taking Pentasa, omeprazole, clonidine, and lorazepam before the surgery. For the past day, she has felt congested with a slightly sore throat and pressure in her left ear, which she suspects may be related to her dental infection. She denies any fever, coughing, or chills. She also has a history of migraines, which have been more frequent lately but are managed with as-needed medication, and arthritis in her hands and hip, which she attributes to weather changes. Family history is significant for a father with bicuspid valve disease. The patient reports significant anxiety and a phobia of dentists due to past negative experiences. Surgeon/location: Dr. 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, and fax [phone] [facility] Medical History ASCUS with positive high risk HPV cervical Crohn's disease Clostridioides difficile carrier Renal calculus, bilateral Postcoital bleeding Major depression, recurrent, chronic Furuncle Diverticulitis Obesity (BMI 30-39.9) Crohn's colitis Crohns disease of small intestine Intractable nausea and vomiting Migraine History of renal cell cancer (~2014) Osteoarthritis of hips, bilateral Depression Crohn's disease Lumbar degenerative disc disease Insomnia Anxiety 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 Surgical History Hx of colonoscopy History of esophagogastroduodenoscopy (EGD) History of removal of calculus of renal pelvis through percutaneous nephrostomy (~10/2015) History of cryosurgery (~04/20/15) History of intestinal surgery History of arthroplasty (~01/2012) Family History Father Crohn disease Migraine Cancer Mother HTN (hypertension) Vertigo Cervical cancer Maternal Grandmother HTN (hypertension) Hyperlipidemia Diabetes mellitus Paternal Grandmother Diabetes mellitus Other Mental health problem Social History Household Members: Family Housing: House Do you presently have visiting nurse or other home services: No Alcohol intake: current Alcohol intake frequency: holidays/special occasions only Patient Tobacco Use Status: Former Tobacco user Tobacco use type: Cigarette e-Cigarette/Vaping Use: Former Use Second Hand Smoke Exposure: Yes Substance Use Type: Marijuana Advance Directives Date on File: 06/15/22 service: No Current occupational status: unemployed Gender identity: Female Cognitive needs: No Hearing needs: No Vision needs: Yes (glasses) Female Reproductive History Menstrual Age of Menarche: 12 Questionnaire Thrive Questionnaire Date Thrive assessed: 04/08/25 I am a: Patient What is your living situation today?: I have a steady place to live Within the past 12 months, did the food you bought not last and you didn't have the money to get more?: Sometimes True Within the past 12 months, did you worry whether your food would run out before you got money to buy more?: Sometimes True Do you have trouble paying for medicines?: No Do you have trouble getting transportation to medical appointments?: No Do you have trouble paying your heating and electricity bill?: Yes Do you have trouble taking care of your child, family member or friend?: No Do you have trouble with day-to-day activities such as bathing, preparing meals, shopping, managing finances, etc.?: No Are you currently unemployed and looking for a job?: No Are you interested in more education?: No Currently or been in a relationship where the following occur: No concerns reported THRIVE Score: 3 MONTSE-7 AMB Questionnaire MONTSE-7 Date MONTES - 7 assessed: 04/15/25 Source: Developed by Drs. Matthew Hernandez, [place] Jiménez, Billy Somers and colleagues, with an educational paxton from [employer]. Review of Systems Const Denies chills, Reports difficulty sleeping, Denies fatigue, Denies fever(s) and Denies headache(s) ENT Denies dysphagia, Denies dizziness, Denies otalgia, Denies headache(s), Denies neck pain, Denies odynophagia, Denies sore throat and Reports other (pressure in left ear) Card Denies chest pain, Denies rapid heart rate, Denies irregular heart rhythm, Denies palpitations and Denies dyspnea Resp Denies chest congestion, Denies cough and Denies dyspnea GI Denies abdominal pain, Denies constipation, Denies dysphagia, Denies heartburn, Denies diarrhea, Denies nausea, Denies odynophagia and Denies vomiting Denies urinary frequency, Denies dysuria and Denies urinary urgency Musc Reports back pain (over the lower back - chronic), Denies arthralgias and Denies neck pain Skin/Breast Denies rash Neuro Denies dizziness, Denies headache(s) and Denies paresthesias Psych Denies anxiety and Denies depression Endo Denies fatigue and Denies palpitations Jf/Lymph Denies easy bruising Physical exam (Primary Care) Vital Signs: Last Vital Signs Temp 97.3 F 09/17/25 14:54 Pulse 79 09/17/25 14:54 Resp 18 09/17/25 14:54 BP 132/68 09/17/25 14:54 Pulse Ox 100 09/17/25 14:54 Oxygen Delivery Method Room Air 09/17/25 14:54 BMI result Body Mass Index 32.9 Tobacco/Smoking Status: Tobacco use Status Tobacco use date assessed 09/17/25 09/17/25 15:02 Patient Tobacco Use Status Former Tobacco user 09/17/25 15:02 Tobacco use type Cigarette 09/17/25 15:02 e-Cigarette/Vaping Use Former Use 09/17/25 15:02 Thrive Assessment: Date of Thrive Assessment Date Thrive assessed 04/08/25 09/17/25 15:02 Currently or been in a relationship where the following occur: No concerns reported Const General: no acute distress and alert HENMT Ears: TM normal on the right and Abnormal EAC present cerumen impaction on the left Throat: Yes posterior oropharynx normal and Yes tonsils normal (no TP congestion) Neck Neck: Yes no lymphadenopathy and Yes supple Thyroid: Thyroid normal Resp Auscultation: clear to auscultation bilaterally, no rales and no wheezes Cardio Rate: regular rate Rhythm: regular rhythm Heart sounds: no murmurs GI Palpation (GI): Soft to palpation and nontender Auscultation: normal bowel sounds General: Yes no CVA tenderness Back/Spine/Pelvis Back: no CVA tenderness Thoracic/Lumbar Spine: lumbar spinal tenderness Skin Rashes: no rashes Extrem General: Yes no clubbing, cyanosis or edema Left lower extremity: hip/thigh Details: tenderness Location: of the hip Results Reviewed Results Reviewed: Laboratory Tests 06/30/25 07/22/25 07/22/25 17:41 10:05 10:15 WBC 8.0 RBC 4.62 Hgb 14.2 Hct 41.1 MCV 89.0 MCH 30.7 MCHC 34.5 RDW 14.1 Plt Count 345 D Sodium 140 Potassium 4.2 Chloride 109 H Carbon Dioxide 24 Anion Gap 11 L BUN 15 Creatinine 0.84 Estim Creat Clear Calc 75.6 Estimated GFR > 60 Random Glucose 96 Calcium 9.2 Total Bilirubin 0.3 Direct Bilirubin 0.1 AST 17 ALT 11 Alkaline Phosphatase 88 C-Reactive Protein 0.33 Total Protein 7.3 Albumin 4.1 Urine pH (Auto) Specific [place] (Auto) Urine Protein (Auto) Glucose (UA)(Auto) Urine Ketones (Auto) Urine Blood (Auto) Urine Nitrite (Auto) Urine Bilirubin (Auto) Urine Urobilinogen (Auto) Leukocyte Esterase (Auto) 09/15/25 10:01 WBC RBC Hgb Hct MCV MCH MCHC RDW Plt Count Sodium Potassium Chloride Carbon Dioxide Anion Gap BUN Creatinine Estim Creat Clear Calc Estimated GFR Random Glucose Calcium Total Bilirubin Direct Bilirubin AST ALT Alkaline Phosphatase C-Reactive Protein Total Protein Albumin Urine pH (Auto) 6.0 Specific [place] (Auto) 1.030 Urine Protein (Auto) 30 Glucose (UA)(Auto) 0 Urine Ketones (Auto) Negative Urine Blood (Auto) 0 Urine Nitrite (Auto) Negative Urine Bilirubin (Auto) 1 Urine Urobilinogen (Auto) 0.2 Leukocyte Esterase (Auto) 0 Coding Level of Care Code Est Pt Level 4 (15219) Diagnoses Preoperative clearance Z01.818 Periodontal disease K05.6 Migraine without status migrainosus, not intractable, unspecified migraine type G43.909 Migraine type: unspecified Status migrainosus presence: without status migrainosus Intractability: not intractable Crohn's disease without complication, unspecified gastrointestinal tract location K50.90 Gastrointestinal tract location: unspecified location Digestive disease complication type: without complication Lumbar degenerative disc disease M51.36 Impaired fasting glucose R73.01 Left hip pain M25.552 Insomnia, unspecified type G47.00 Insomnia type: unspecified Anxiety F41.9 Obesity (BMI 30-39.9) E66.9 Left ear impacted cerumen H61.22 Time Spent (min) 37 Assessment & Plan Assessment & Plan (1) Preoperative clearance: Code(s): Z01.818 - Encounter for other preprocedural examination Category: Medical Plan: Plan: Recent labs an EKG reviewed. Regarding preop clearance, the patient is at acceptable risk for proposed surgery. Reviewed with the patient that no surgery is completely free of risk and that this examination is to assist the surgeon in reviewing informed consent. (2) Periodontal disease: Code(s): K05.6 - Periodontal disease, unspecified Category: Medical Plan: The patient will proceed with the planned full mouth extraction on September 21 to address her severe periodontal disease. (3) Migraine: Code(s): G43.909 - Migraine, unspecified, not intractable, without status migrainosus Category: Medical Qualifiers: Migraine type: unspecified Status migrainosus presence: without status migrainosus Intractability: not intractable Qualified Code(s): G43.909 - Migraine, unspecified, not intractable, without status migrainosus Plan: Continue Sumatriptan 50 mg PRN for headaches - patient feels that this is helping somewhat Continue Excedrin PRN and Ondansetron PRN for nausea/vomiting Topiramate (for LUNDBERG prophylaxis) was discontinued previously due to its potential interactions with Mirena; patient reports experiencing frequent headaches since Patient also relates experiencing a significant increase in her headaches when she was started on Bupropion XL and Buspirone last year - headaches have subsided since she was instructed to STOP taking them As she feels that her headaches are getting worse lately, will refer her back to neurology for further evaluation and management (4) Crohn's disease: Code(s): K50.90 - Crohn's disease, unspecified, without complications Category: Medical Qualifiers: Gastrointestinal tract location: unspecified location Digestive disease complication type: without complication Qualified Code(s): K50.90 - Crohn's disease, unspecified, without complications Plan: Continue Entyvio 300 mg SQ every 6 weeks, Mesalamine ER 1000 mg QID and Budesonide ER 3 mg 3 capsules (900 mg) QD. She was told by Dr. Alexis to space this medication out before surgery due to the immune system, which she has already done. Her abdominal MRI done last year revealed (+) mild improvement in the transmural wall thickening at the terminal ileum, suggesting some improvement Follow up with GI (Dr. Alexis) as scheduled (5) Lumbar degenerative disc disease: Code(s): M51.36 - Other intervertebral disc degeneration, lumbar region Category: Medical Plan: Reinforced activity and weight-lifting restrictions Continue Tramadol 50 mg TID PRN for pain (6) Impaired fasting glucose: Code(s): R73.01 - Impaired fasting glucose Category: Medical Plan: Her FBS was elevated on her labs done a few months ago - this was most likely due to the effects of Prednisone, which she has been off (completed Tx) for a while now In-office HgbA1c was normal at 5.6% when previously checked Will continue to monitor her blood sugar closely Reinforced again low calorie/low carb diet to help control her blood sugar better (7) Left hip pain: Code(s): M25.552 - Pain in left hip Category: Medical Plan: Will send her for x-rays of the left hip for further evaluation (8) Insomnia: Code(s): G47.00 - Insomnia, unspecified Category: Medical Qualifiers: Insomnia type: unspecified Qualified Code(s): G47.00 - Insomnia, unspecified Plan: Sleep hygiene reinforced Continue Dayvigo 10 mg Q HS She has been checked out and advised by Sleep Medicine last year that she does NOT have FAISAL She was previously tried on Belsomra, which she felt helped with her sleep but this was denied by her insurance and her previous Zolpidem was no longer helping her Follow up with Sleep Medicine as scheduled (9) Anxiety: Code(s): F41.9 - Anxiety disorder, unspecified Category: Medical Plan: continue Lorazepam 1 mg TID PRN and Clonidine 0.1 mg TID PRN Continue Duloxetine 30 mg BID Follow up with psychiatry as scheduled (10) Obesity (BMI 30-39.9): Code(s): E66.9 - Obesity, unspecified Category: Medical Plan: Reinforced diet/exercise as tolerated/lose weight (11) Left ear impacted cerumen: Code(s): H61.22 - Impacted cerumen, left ear Category: Medical Plan: The patient's left ear pressure is attributed to cerumen impaction, likely worsened by Q-tip use. A partial removal of the cerumen was performed in-office, providing some relief. The patient was instructed to use aeao-[id number]-[id number] Debrox drops to soften the remaining wax for easier removal and to discontinue using Q- tips.
--- OUTSIDE RECORDS SUMMARY | 2025-09-17 15:14 | XMS_ITS | Data Portability ---
Author Organization [employer] [facility] [facility] [place] [facility] Address [address] [place] [id number] Care Team Providers Care Lens Marker Name Role Phone HIM CCA OTHER Assessment [...] Not available Not available Not available 09/15/2024 [id number] RxNorm Not Available [facility] - production 4 03:47:51 [id number] trazodone medicatio n Not available Not available Not available 09/15/2024 [id number] RxNorm Not Available [facility] - production 4 03:47:51 Medications Name Sig [...] % 98 % 94 /min 18 /min 84211.8 g 99.8 [degF] 164/84 mm[Hg] Not Available [...] ICD10 Code Diagnosis IMO Codes Diagnosis Note [id number] Zoraida Schwartz MD Main - [facility] [address] [place] [phone] 08/21/2024 10:44:42 08/24/2024 12:31:05 Nausea and vomiting [id number] R11.2 I provided real -time medical direction via phone for this encounter, and was available for additional phone based assistance as needed. I have reviewed and agree with the Assessment and Plan as documented by the Signal Person. Patient given the opportunit y to ask questions. 49 yo F w/ h/o crohn's and diverticul itis with h/o recurrent episodes of nausea/jacobo sis treated with supportive care (IV fluids and zofran in the ED) who p/w episode of n/v x1d. noting significan t associated anxiety. No hematemesi s or no hematochez ia. Exam reassuring . Signal Person unable to obtain IV access despite multiple [...] Tristan Member ID Guarantor Name 08/21/2024 1 [facility] - DOS ON OR AFTER 2023 - DUAL ELIGIBLE - ALF OPTIONS AND ONE CARE (MEDICARE REPLACEMENT/ADV ANTAGE - HMO) Gabi Perales [id number] Gabi Perales Notes Date Note Type Note [...] ................... ................... ................... ................... ................... ................... ........ Signal Person Note From Roni Herring: Pt co nausea [...] ................... ........ Disposition: Frieda Schwartz MD [address] [facility],[address], [place], [phone], [employer] [facility] [employer] 08/21/2024 22:44:48 OBGyn Episode No OBEpisode recorded.
== END 2025-09-17 15:38 | disposition home or self-care (01) ==
LOC: HO.HMCH 14:51
PROVIDERS: PCP Internal Medicine
DX: G43.909 Migraine, unspecified, not intractable, without status migrainosus (principal); K50.90 Crohn's disease, unspecified, without complications; Z68.32 Body mass index [BMI] 32.0-32.9, adult; E66.9 Obesity, unspecified; Z01.818 Encounter for other preprocedural examination; K05.6 Periodontal disease, unspecified; M51.369 Other intervertebral disc degeneration, lumbar region without mention of lumbar back pain or lower extremity pain; R73.01 Impaired fasting glucose; M25.552 Pain in left hip; H61.23 Impacted cerumen, bilateral; G47.00 Insomnia, unspecified; F41.9 Anxiety disorder, unspecified

== ENCOUNTER → 2025-09-17 14:50 | Outpatient (BNVA) | payer OTHER, SELFPAY | PROVIDERS: PCP Internal Medicine | DX: Z01.818 Encounter for other preprocedural examination (principal); K50.90 Crohn's disease, unspecified, without complications; K05.6 Periodontal disease, unspecified; G43.909 Migraine, unspecified, not intractable, without status migrainosus; M51.369 Other intervertebral disc degeneration, lumbar region without mention of lumbar back pain or lower extremity pain; M25.552 Pain in left hip; G47.00 Insomnia, unspecified; F41.9 Anxiety disorder, unspecified; E66.9 Obesity, unspecified; H61.22 Impacted cerumen, left ear | CPT/HCPCS: 69210; 99212 ==